=== PATIENT | female | born 1980 | race Caucasian/White ===

== ENCOUNTER → 2017-09-14 11:26 | Outpatient (CLI) | payer OTHER, SELFPAY ==
[2017-09-14 12:44] LABS: Absolute Lymphocyte Count 1.99 X10^3/ul (0.83-4.51); Absolute Neutrophil Count 2.4 X10^3/uL (2.0-7.7); Basophil# 0.05 X10^3/uL; Eosinophil# 0.22 X10^3/uL; Eosinophils% 4.4 % (0-5); Hematocrit 29.5 % (37-47); Hemoglobin 9.3 g/dl (12.0-15.0); Lymphocyte # 1.99 X10^3/ul (4.0); Mean Corp Hgb Conc 31.5 g/gl (32-36); Mean Corpuscular Hgb 30.3 pg (27.0-32.0); Mean Corpuscular Volume 96.1 fL (81-99); Mean Platelet Vol. 9.4 fl (6.2-12.0); Monocyte# 0.33 X10^3/uL; Monocyte% 6.6 % (0-10); Neutrophil # 2.37 X10^3/uL (2.7-7.7); Neutrophil % 47.8 % (47-70); Platelet Count 293 K/mm3 (150-450); RBC Distribution Width CV 13.9 % (11.6-14.6); RBC Distribution Width SD 46.7 fl (35.1-43.9); Red Blood Count 3.07 M/mm3 (4.2-5.4)
[2017-09-14 12:51] LABS: POSITIVE COUNT NO; POSITIVE DIFFERENTIAL NO; POSITIVE MORPHOLOGY NO
== END ==
PROVIDERS: Family Provider Family Medicine; PCP Internal Medicine; Visit Provider Nurse Practitioner Women's Health
DX: N92.0 Excessive and frequent menstruation with regular cycle (principal)
CPT/HCPCS: 36415; 85025

== ENCOUNTER → 2017-09-14 18:14 | Outpatient (CLI) | payer OTHER, SELFPAY ==
--- NOTE | 2017-09-14 10:40 | EMB_PTH ---
PATIENT: RAMEZ PAUL LOC: [facility] U#:[id number] AGE/SX: 44/F ROOM: RE09/14/[address]: ZAFAR Donaldson : 1980 BED: DIS: SPEC #: [id number] RECD: 09/14/17 18:14 STATUS: BETH SUKI #: [id number] GERMANIA: 09/14/17 10:[address]: Laine Coronado NP DEPT: SURGICAL PATHOLOGY RECD BY: Preethi Tamayo ENTERED: 09/15/17 09:39 SP TYPE: ENDOM BX/C DAVE DR: Dr. Timoteo Shelley MD Tissues: Endometrium, NOS Procedures: Surgery Specimen Level IV HEADER OPERATION: Endometrial biopsy PRE-OP DIAGNOSIS: AUB TISSUE SUBMITTED: Endometrial lining MICROSCOPIC DIAGNOSIS Endometrial biopsy: Proliferative endometrium with glandular and stromal breakdown, blood and mucous. SJ:tiago 09/18/17 MICROSCOPIC DESCRIPTION Slides are reviewed. GROSS DESCRIPTION Received is one container labeled with the patient's name and not further designated. The specimen consists of multiple fragments of hemorrhagic soft tissue that in aggregate measure 3 x 2.5 x 0.3 cm. The specimen is totally submitted in one cassette. / SJ:tiago 09/15/17 TC:5 CPT: 45203
== END ==
PROVIDERS: Family Provider Family Medicine; PCP Family Medicine; Visit Provider Nurse Practitioner Women's Health
DX: N93.9 Abnormal uterine and vaginal bleeding, unspecified (principal)
CPT/HCPCS: 88305

== ENCOUNTER → 2017-09-22 13:03 | Outpatient (CLI) | payer OTHER, SELFPAY ==
--- NOTE | 2017-09-22 13:04 | US_ITS ---
STUDY: ULTRASOUND OF THE FEMALE PELVIS REASON FOR EXAM: Female, 37 years old. Abnormal uterine bleeding LMP: September 12, 2017 TECHNIQUE: Transverse and longitudinal imaging of the pelvis was obtained transvaginally using real-time ultrasound. COMPARISON: None. FINDINGS: The uterus is retroflexed and is in a midline position. The uterus measures 8.8 x 5.6 x 5.5 cm. Normal uterine cervix. The endometrium measures 4.8 mm in thickness, and is hyperechoic. There is no demonstrated endometrial mass. There is no demonstrated myometrial mass. I.U.D. - The patient does not have an I.U.D. The right ovary is visualized. The right ovary measures 3.3 x 2.2 x 2.4 cm. There is an anechoic mass in the right ovary measuring 1.9 x 1.8 x 2.0 cm. There is no visualized right adnexal mass or complex lesion. There is normal arterial and normal venous vascularity. The left ovary is visualized. The left ovary measures 2.5 x 1.8 x 1.7 cm. There is no left ovarian cyst or ovarian mass. There is no visualized left adnexal mass or complex lesion. There is normal arterial and normal venous vascularity. There is minimal fluid in the cul-de-sac. No significant abnormalities are seen on limited visualization of the urinary bladder. US/Transvaginal Non- IMPRESSION: No abnormalities are seen in the uterus or endometrium. The uterus is retroflexed. There is a small cyst or dominant follicle in the right ovary measuring 2 cm. There is minimal fluid in the pelvis. Electronically Signed: Angie Katz MD at 23:05 EST Tel Direct: [phone], Service support ,
--- NOTE | 2017-09-22 13:04 | US_ITS ---
STUDY: ULTRASOUND OF THE FEMALE PELVIS REASON FOR EXAM: Female, 37 years old. Abnormal uterine bleeding LMP: September 12, 2017 TECHNIQUE: Transverse and longitudinal imaging of the pelvis was obtained transvaginally using real-time ultrasound. COMPARISON: None. FINDINGS: The uterus is retroflexed and is in a midline position. The uterus measures 8.8 x 5.6 x 5.5 cm. Normal uterine cervix. The endometrium measures 4.8 mm in thickness, and is hyperechoic. There is no demonstrated endometrial mass. There is no demonstrated myometrial mass. I.U.D. - The patient does not have an I.U.D. The right ovary is visualized. The right ovary measures 3.3 x 2.2 x 2.4 cm. There is an anechoic mass in the right ovary measuring 1.9 x 1.8 x 2.0 cm. There is no visualized right adnexal mass or complex lesion. There is normal arterial and normal venous vascularity. The left ovary is visualized. The left ovary measures 2.5 x 1.8 x 1.7 cm. There is no left ovarian cyst or ovarian mass. There is no visualized left adnexal mass or complex lesion. There is normal arterial and normal venous vascularity. There is minimal fluid in the cul-de-sac. No significant abnormalities are seen on limited visualization of the urinary bladder. US/Pelvic (Non ) IMPRESSION: No abnormalities are seen in the uterus or endometrium. The uterus is retroflexed. There is a small cyst or dominant follicle in the right ovary measuring 2 cm. There is minimal fluid in the pelvis. Electronically Signed: Angie Katz MD at 23:05 EST Tel Direct: [phone], Service support ,
== END ==
PROVIDERS: Family Provider Family Medicine; PCP Internal Medicine; Visit Provider Nurse Practitioner Women's Health
DX: N92.0 Excessive and frequent menstruation with regular cycle (principal)
CPT/HCPCS: 76830; 76856; 93976

== ENCOUNTER → 2017-10-09 12:06 | Outpatient (CLI) | payer OTHER, SELFPAY ==
[2017-10-09 12:37] LABS: Absolute Lymphocyte Count 2.18 X10^3/ul (0.83-4.51); Absolute Neutrophil Count 3.1 X10^3/uL (2.0-7.7); Basophil# 0.05 X10^3/uL; Basophil% 0.8 % (0-1); Eosinophil# 0.29 X10^3/uL; Eosinophils% 4.9 % (0-5); Hematocrit 33.6 % (37-47); Hemoglobin 10.8 g/dl (12.0-15.0); Lymphocyte # 2.18 X10^3/ul (4.0); Lymphocyte % 36.6 % (19-41); Mean Corp Hgb Conc 32.1 g/gl (32-36); Mean Corpuscular Hgb 30.8 pg (27.0-32.0); Mean Corpuscular Volume 95.7 fL (81-99); Mean Platelet Vol. 9.3 fl (6.2-12.0); Monocyte# 0.35 X10^3/uL; Monocyte% 5.9 % (0-10); Neutrophil # 3.08 X10^3/uL (2.7-7.7); Neutrophil % 51.6 % (47-70); Platelet Count 342 K/mm3 (150-450); RBC Distribution Width CV 13.6 % (11.6-14.6); RBC Distribution Width SD 45.9 fl (35.1-43.9); Red Blood Count 3.51 M/mm3 (4.2-5.4)
[2017-10-09 12:38] LABS: POSITIVE COUNT NO; POSITIVE DIFFERENTIAL NO; POSITIVE MORPHOLOGY NO
== END ==
PROVIDERS: Family Provider Internal Medicine; PCP Internal Medicine; Visit Provider Nurse Practitioner Women's Health
DX: N92.0 Excessive and frequent menstruation with regular cycle (principal)
CPT/HCPCS: 36415; 85025

== ENCOUNTER → 2017-10-25 14:17 | Outpatient (CLI) | payer OTHER, SELFPAY ==
[2017-10-25 14:48] LABS: Absolute Lymphocyte Count 2.22 X10^3/ul (0.83-4.51); Absolute Neutrophil Count 3.4 X10^3/uL (2.0-7.7); Basophil# 0.04 X10^3/uL; Basophil% 0.6 % (0-1); Eosinophil# 0.21 X10^3/uL; Eosinophils% 3.3 % (0-5); Hematocrit 35.3 % (37-47); Hemoglobin 11.3 g/dl (12.0-15.0); Immature Platelet Fraction 1.4 % (1.0-7.9); Lymphocyte # 2.22 X10^3/ul (4.0); Lymphocyte % 35.2 % (19-41); Mean Corpuscular Hgb 30.1 pg (27.0-32.0); Mean Corpuscular Volume 93.9 fL (81-99); Mean Platelet Vol. 8.8 fl (6.2-12.0); Monocyte# 0.42 X10^3/uL; Monocyte% 6.7 % (0-10); Neutrophil # 3.41 X10^3/uL (2.7-7.7); Platelet Count 269 K/mm3 (150-450); RBC Distribution Width CV 13.8 % (11.6-14.6); RBC Distribution Width SD 47.3 fl (35.1-43.9); RET-HE 27.9 pg (30-35); Red Blood Count 3.76 M/mm3 (4.2-5.4); Reticulocyte Count 1.36 % (0.5-1.5); White Blood Count 6.3 K/mm3 (4.4-11.0)
[2017-10-25 14:49] LABS: POSITIVE COUNT NO; POSITIVE DIFFERENTIAL NO; POSITIVE MORPHOLOGY NO
[2017-10-25 14:54] LABS: Erythrocyte Sedimentation Rate 19 mm/hr (0-20)
[2017-10-25 15:19] LABS: Hemoglobin A1c 4.7 % (4.2-6.3)
[2017-10-25 15:20] LABS: Vitamin B12 525 pg/mL (211-911)
[2017-10-25 15:50] LABS: AST(SGOT) 14 U/L (15-37); Alanine Aminotransfer ALT/SGPT 17 U/L (13-56); Albumin, Serum 3.9 g/dL (3.2-5.0); Alkaline Phosphatase 52 U/L (45-117); Anion Gap 7 (5-15); BUN 13 mg/dL (7-18); BUN/Creat Ratio 13.3 RATIO (10-20); CRP < 2.90 mg/L (0.0-3.0); Calcium,Total 9.2 mg/dL (8.5-10.1); Chloride 106 mmol/L (98-107); Creatinine, Serum 0.98 mg/dL (0.55-1.02); EST Glomerular Filtration Rate 69 mL/min (>60); Est Glom Filt Rate - Afr Amer 83 mL/min (>60); Ferritin 5 ng/mL (8-252); Globulin 3.8 g/dL (2.2-4.2); Glucose 73 mg/dL (74-106); Iron 31 ug/dL (50-170); Iron Binding Capacity,Total 418 ug/dL (250-450); Potassium 3.9 mmol/L (3.5-5.1); Protein, Total 7.7 g/dL (6.4-8.2); Sodium Level 141 mmol/L (136-145); Thyroid Stim Hormone (TSH) 2.26 uIU/mL (0.358-3.74)
[2017-10-27 08:54] LABS: ANTINUCLEAR ANTIBODIES DIRECT Positive (Negative)
== END ==
PROVIDERS: Family Provider Internal Medicine; PCP Internal Medicine
DX: D50.9 Iron deficiency anemia, unspecified (principal); M79.1 Myalgia; L65.9 Nonscarring hair loss, unspecified; L92.0 Granuloma annulare; R53.83 Other fatigue
CPT/HCPCS: 36415; 80053; 82306; 82607; 82728; 82746; 83036; 83540; 83550; 84443; 85025; 85045; 85652; 86038; 86140

== ENCOUNTER 2017-11-03 12:30 | Outpatient (RCR) | payer OTHER, SELFPAY | END 2017-11-13 23:59 | LOC: NS 12:30 | PROVIDERS: Family Provider Internal Medicine; PCP Internal Medicine; Visit Provider Internal Medicine | DX: E66.9 Obesity, unspecified (principal); Z68.41 Body mass index [BMI] 40.0-44.9, adult; Z71.3 Dietary counseling and surveillance | CPT/HCPCS: 97802; 97803 ==

== ENCOUNTER 2017-11-17 11:28 | Outpatient (RCR) | payer OTHER, SELFPAY | END 2017-12-14 23:59 | LOC: NS 11:28 | PROVIDERS: Family Provider Internal Medicine; PCP Internal Medicine; Visit Provider Internal Medicine | DX: E66.9 Obesity, unspecified (principal); Z68.41 Body mass index [BMI] 40.0-44.9, adult; Z71.3 Dietary counseling and surveillance | CPT/HCPCS: 97803 ==

== ENCOUNTER → 2017-12-07 12:38 | Outpatient (CLI) | payer OTHER, SELFPAY ==
[2017-12-11 09:16] LABS: ANTINUCLEAR ANTIBODIES DIRECT Positive (Negative); Anti-Mitochondrial AB <20.0 Units (0.0-20.0); Anti-Thyroglobulin AB < 1.0 IU/mL (0.0-0.9); Anti-dsDNA Ab 1 IU/mL (0-9); Thyroglobulin, Serum Qt. 11.8 ng/mL (1.5-38.5); Thyroid Peroxidase AB 46 IU/mL (0-34)
== END ==
PROVIDERS: Family Provider Internal Medicine; PCP Internal Medicine; Visit Provider Internal Medicine Rheumatology
DX: R76.8 Other specified abnormal immunological findings in serum (principal)
CPT/HCPCS: 36415; 83516; 84432; 86038; 86225; 86376; 86800

== ENCOUNTER → 2018-01-25 10:28 | Outpatient (CLI) | payer OTHER, SELFPAY ==
[2018-01-25 11:38] LABS: Absolute Lymphocyte Count 1.77 X10^3/ul (0.83-4.51); Absolute Neutrophil Count 2.6 X10^3/uL (2.0-7.7); Basophil# 0.03 X10^3/uL; Basophil% 0.6 % (0-1); Eosinophil# 0.17 X10^3/uL; Eosinophils% 3.5 % (0-5); Hematocrit 34.8 % (37-47); Hemoglobin 11.2 g/dl (12.0-15.0); Lymphocyte # 1.77 X10^3/ul (4.0); Lymphocyte % 36.3 % (19-41); Mean Corp Hgb Conc 32.2 g/gl (32-36); Mean Corpuscular Hgb 29.5 pg (27.0-32.0); Mean Corpuscular Volume 91.6 fL (81-99); Mean Platelet Vol. 9.5 fl (6.2-12.0); Monocyte# 0.28 X10^3/uL; Monocyte% 5.7 % (0-10); Neutrophil # 2.62 X10^3/uL (2.7-7.7); Neutrophil % 53.7 % (47-70); POSITIVE COUNT NO; POSITIVE DIFFERENTIAL NO; POSITIVE MORPHOLOGY NO; Platelet Count 280 K/mm3 (150-450); RBC Distribution Width CV 14.2 % (11.6-14.6); RBC Distribution Width SD 46.5 fl (35.1-43.9); White Blood Count 4.9 K/mm3 (4.4-11.0)
[2018-01-26 09:01] LABS: Vitamin D,25 Hydroxy 31.3 ng/mL (29.95-100.01)
== END ==
PROVIDERS: Family Provider Internal Medicine; PCP Internal Medicine; Visit Provider Obstetrics & Gynecology
DX: N93.9 Abnormal uterine and vaginal bleeding, unspecified (principal)
CPT/HCPCS: 36415; 82306; 85025

== ENCOUNTER → 2018-04-12 09:29 | Outpatient (CLI) | payer OTHER, SELFPAY ==
--- NOTE | 2018-04-12 09:30 | US_ITS ---
STUDY: ABDOMINAL ULTRASOUND - RIGHT UPPER QUADRANT REASON FOR VISIT: Female, 37 years old. Right upper quadrant pain with nausea. TECHNIQUE: Ultrasound evaluation of the right upper quadrant was performed with real-time and static ruth-scale imaging. TECHNICAL QUALITY: Limited. Examination limited due to obesity. COMPARISON: None. FINDINGS: Liver: The liver measures 17.2 cm. There is normal echogenicity of the liver. The bile ducts are within normal limits. There is hepatic color flow. The direction of portal flow is hepatopetal. There is a 1.7 cm x 1.5 cm x 2.2 cm echogenic nodule in the posterior aspect of the right lobe of the liver adjacent to the right hemidiaphragm. This may represent a small hemangioma. Gallbladder: Normal distended gallbladder. The gallbladder wall measures 2.1 mm. There is a negative sonographic Otto's sign. There is no pericholecystic fluid. There are no gallstones. Common Bile Duct (C.B.D.): The common bile duct measures 3.1 mm. Pancreas: [place] the pancreas, there is a 1 cm x 1.3 cm x 0.6 cm well-defined hypoechoic nodular density. Correlation with CT scan of the pancreas is recommended for further evaluation. There is normal echogenicity of the pancreas. There is no demonstrated pancreatic mass or cyst. Right Kidney: Normal size of the right kidney. The right kidney measures 10.9 cm x 5.9 cm x 5.4 cm. Normal renal cortex. The right cortex measures 1.6 cm. There is no demonstrated renal mass or cyst. There is no right hydronephrosis. US/Gallbladder IMPRESSION: 1.7 cm x 1.5 cm x 2.2 cm echogenic nodule in the posterior superior aspect of the right lobe of the liver as described. This most likely represents a small hemangioma. 1 cm x 1.3 cm x 0.6 cm hypoechoic well-defined nodule in the head of the pancreas as described. Correlation with a CT scan is recommended. Electronically Signed: Sukhdeep Manzano MD at 10:42 EDT Tel [phone], Service support ,
--- NOTE | 2018-04-12 10:08 | NM_ITS ---
CLINICAL: 37-year-old female with reported history of abdominal pain and nausea. RADIONUCLIDE HEPATOBILIARY SCINTIGRAPHY COMPARISON: Abdominal ultrasound report 04/12/2018 FINDINGS: Following the intravenous administration of 5.8 mCi of 99m Tc Mebrofenin, hepatobiliary images reveal:. 1. Relatively prompt and homogeneous radiopharmaceutical concentration is noted by a normal sized liver. No parenchymal defects are identified. 2. Gallbladder activity is identified at 12 minutes post radiopharmaceutical administration. 3. Small intestinal tract is not visualized during 60 minutes of pre-fatty meal sequential image acquisition. Small bowel is observed following meal completion. 4. Washout of the radiopharmaceutical by the hepatic parenchyma appears qualitatively normal. The patient was administered a fatty meal (8 ounces Boost). The post fatty meal ingestion gallbladder ejection fraction calculated at 60 minutes was noted to be 18.0 % (normal greater than 30%). NM/Hepatobilliary Img w/Pharm Int IMPRESSION: 1. ABNORMAL 99m Tc Mebrofenin hepatobiliary imaging examination with fatty meal ingestion. A. A gallbladder ejection fraction calculated to be less than 30% following the administration of an ingested fatty meal is consistent with the presence of functional hepatobiliary disease (gallbladder and/or sphincter of Oddi dyskinesia) and/or organic hepatobiliary disease (chronic acalculous cholecystitis and/or cystic duct syndrome) in patients with intermediate to high pretest probabilities of hepatobiliary illness. (Brad and Joey, J Nucl Med 43: 1603, 2002). Electronically Signed: Abad Sinha DO at 23:45 EDT Tel , Service support ,
== END ==
PROVIDERS: Family Provider Registered Nurse; PCP Registered Nurse; Referring Provider Physician Assistant; Visit Provider Physician Assistant
DX: R10.13 Epigastric pain (principal); R11.0 Nausea
CPT/HCPCS: 76705; 78227; A9537

== ENCOUNTER → 2018-04-20 11:41 | Outpatient (CLI) | payer OTHER, SELFPAY ==
--- NOTE | 2018-04-20 15:43 | CT_ITS ---
STUDY: CT ABDOMEN AND PELVIS WITH CONTRAST REASON FOR EXAM: Female, 37 years old. Pancreatic mass. Poorly functioning gallbladder. RADIATION DOSAGE (If Supplied By Facility): CTDIvol = ( 18.73 ) mGy, DLP = ( 1398.38 ) mGycm TECHNIQUE: Transaxial images were obtained from the dome of the diaphragm to the symphysis pubis with oral contrast. 100ML ml of Isovue 300 contrast was administered. Sagittal and coronal images were reconstructed. Individualized dose optimization techniques were used for this CT. COMPARISON: Ultrasound abdomen: 04/12/2018 FINDINGS: The visualized lung bases are unremarkable. The visualized portions of the heart are within normal limits. Medially under the diaphragm superiorly a 1.6 x 1.4 cm low-density lesion in the right hepatic lobe demonstrated posteriorly, which is echogenic on the recent ultrasound, consistent with an hemangioma. Mild hepatomegaly. The gallbladder is partially contracted. Normal spleen. Normal pancreas. No pancreatic mass is evident. A 2.4 cm accessory spleen is seen along the posterior surface of the pancreatic tail adjacent to the splenic hilum. Normal bilateral adrenal glands. There is an extrarenal mildly dilated pelvis R>L. No hydronephrosis. Normal left kidney. Normal visualized stomach. Normal small intestine. Oral contrast has not reached into the colon. Moderate amount of retained fecal debris is seen in the colon including the rectosigmoid. The appendix is visualized and appears normal. Normal abdominal aorta. Normal inferior vena cava. There are multiple small subcentimeter reactive periaortic/retroperitoneal lymph nodes present. There is up to 5.2 mm mild wall thickening of the partially decompressed urinary bladder. There is a retroverted uterus. There is a very small umbilical hernia containing fat. Small reactive bilateral inguinal lymph nodes. There are mild degenerative endplate changes of the visualized thoracic spine. CT/Abdomen/Pelvis WITH Contrast IMPRESSION: 1. A 1.6 cm low-density right hepatic lesion is suggestive of an hemangioma. 2. No pancreatic mass is evident. A 2.4 cm accessory splenule is seen along the posterior margin of the pancreatic tail. 3. Moderately increased colonic stool volume. 4. No acute abnormality noted in the abdomen/pelvis. Electronically Signed: Ruma Kwon MD at 8:07 EDT Tel , Service support ,
== END ==
PROVIDERS: Family Provider Registered Nurse; PCP Registered Nurse; Referring Provider Physician Assistant; Visit Provider Physician Assistant
DX: K86.9 Disease of pancreas, unspecified (principal)
CPT/HCPCS: 74177; Q9967

== ENCOUNTER → 2018-04-23 10:31 | Outpatient (CLI) | payer OTHER, SELFPAY | PROVIDERS: Family Provider Registered Nurse; PCP Registered Nurse | DX: E06.3 Autoimmune thyroiditis (principal); R53.82 Chronic fatigue, unspecified | CPT/HCPCS: 36415; 84443 ==

== ENCOUNTER 2018-05-02 05:55 | Day surgery (SDC) | payer OTHER, SELFPAY ==
--- NOTE | 2018-05-02 | IMM_PTH ---
PATIENT: RAMEZ PAUL LOC: [facility] U#:[id number] AGE/SX: 37/F ROOM: RE05/02/[address]: Dr. Lucio Cerna MD : 1980 BED: DIS: 05/02/2018 SPEC #: [id number] RECD: 05/03/18 09:32 STATUS: BETH SUKI #: [id number] GERMANIA: 05/02/18 00:[address]: Lucio Cerna DEPT: IMMUNOHISTOCHEMISTRY RECD BY: Cleopatra Guevara ENTERED: 05/03/18 09:33 SP TYPE: IMMUNO OTHR DR: Bernice Menezes, ZAFAR Tissues: Stomach, NOS Procedures: H Pylori (initial) PHYSICIAN & INSTITUTION [place] [id number] SPECIMEN INFORMATION: Tissue Source: Gastric antrum biopsy Clinical Info: Chronic gastric ulcer, nausea, upper abdominal pain Specimen Number: [id number] CPT code: 82678 METHODOLOGY: Deparaffinized sections of prefer/formalin-fixed tissue or PAP/DQ stained slides are incubated with monoclonal/polyclonal antibodies/oligonucleotide probes. Localization is made via biotin free immunoperoxidase method. Appropriate controls are performed and reacted as expected. Results on target cell population are indicated in the following table: RESULTS: ANTIBODY / CLONE RESULT H Pylori (polyclonal) negative These tests were developed and their performance characteristics determined by [facility]. They may not have been cleared or approved by the U.S. Food and Drug Administration. The FDA has determined that such clearance or approval is not necessary. INTERPRETATION: Gastric antrum, biopsy: Negative for Helicobacter pylori organisms. LUZ ELENA:tiago 05/03/18
[2018-05-02 06:24] VITALS: BP 137/77; PULSE 88; RESP 16; TEMP 35.7; O2SAT 95; BMI 45.3
--- NOTE | 2018-05-02 07:00 | GASB_PTH ---
PATIENT: RAMEZ PAUL LOC: EN U#:[id number] AGE/SX: 37/F ROOM: RE05/02/[address]: Dr. Lucio Cerna MD : 1980 BED: DIS: 05/02/2018 SPEC #: [id number] RECD: 05/02/18 10:00 STATUS: BETH SUKI #: [id number] GERMANIA: 05/02/18 07:[address]: Lucio Cerna DEPT: SURGICAL PATHOLOGY RECD BY: Abad Jackman ENTERED: 05/02/18 10:12 SP TYPE: Gastric Bx OTHR DR: Bernice Menezes, COMMERCIAL HOUSEKEEPER-C Tissues: Gastric mucous membrane Procedures: Surgery Specimen Level IV HEADER OPERATION: EGD ([facility] [place]) PRE-OP DIAGNOSIS: Chronic gastric ulcer, nausea, upper abdominal pain TISSUE SUBMITTED: Biopsy gastric antrum H. pylori and path MICROSCOPIC DIAGNOSIS Gastric antrum, biopsy: Mild gastritis. Fragments of food particles. See microscopic description and comment. SJ:tiago 05/03/18 COMMENT The results of immunohistochemistry for Helicobacter pylori will be reported separately ([id number]). MICROSCOPIC DESCRIPTION Slides are reviewed. The specimen shows fragments of gastric mucosa with chronic inflammatory cell infiltrates in the lamina propria consisting of lymphocytes and plasma cells, consistent with mild chronic gastritis. GROSS DESCRIPTION Received in fixative is one container labeled with the patient's name and designated biopsy gastric antrum. The specimen consists of multiple irregular fragments of light jama soft tissue that in aggregate measure 1 x 0.2 x 0.1 cm. The specimen is totally submitted in one cassette. / LUZ ELENA:tiago 05/02/18 TC:5 CPT: 83359
[2018-05-02 07:14] LABS: Pregnancy, Serum, hCG Quali. NEGATIVE Negative (0-9 Nonpreg)
[2018-05-02 07:30] VITALS: BP 127/78; BP 137/77; PULSE 79; RESP 16; TEMP 36.6; O2SAT 92
--- NOTE | 2018-05-02 07:32 | OP.ENDO_ITS ---
Patient Name: Alma Aden Procedure Date: 05/02/2018 6:07 AM Date of : 1980 Age: 37 Procedure: Upper GI endoscopy Indications: Follow-up of chronic gastric ulcer Providers: Lucio Cerna MD Medicines: See the Anesthesia note for documentation of the administered medications Patient Profile: She is status post EGD for ulcer treatment one year ago. Complications: No immediate complications. Procedure: Pre-Anesthesia Assessment: - Prior to the procedure, a History and Physical was performed, and patient medications and allergies were reviewed. The patient's tolerance of previous anesthesia was also reviewed. The risks and benefits of the procedure and the sedation options and risks were discussed with the patient. All questions were answered, and informed consent was obtained. Prior Anticoagulants: The patient has taken no previous anticoagulant or antiplatelet agents. ASA Grade Assessment: II - A patient with mild systemic disease. After reviewing the risks and benefits, the patient was deemed in satisfactory condition to undergo the procedure. After obtaining informed consent, the endoscope was passed under direct vision. Throughout the procedure, the patient's blood pressure, pulse, and oxygen saturations were monitored continuously. The gastroscope was introduced through the mouth, and advanced to the duodenal bulb. The upper GI endoscopy was accomplished without difficulty. The patient tolerated the procedure well. Scope In: 7:22:24 AM Scope Out: 7:25:25 AM Total Procedure Duration Time 0 hours 3 minutes 1 second Findings: The examined esophagus was normal. Localized mild inflammation characterized by erythema was found in the prepyloric region of the stomach. Biopsies were taken with a cold forceps for Helicobacter pylori testing. No gross lesions were noted in the duodenal bulb. A large amount of food (residue) was found in the entire examined stomach. Will need a gastric empying study. Impression: - Normal esophagus. - Gastritis. Biopsied. - No gross lesions in the duodenal bulb. - A large amount of food (residue) in the stomach. Recommendation: - Await pathology results. - Repeat upper endoscopy in 1 year for surveillance. - Return to my office in 1 week. - Continue present medications. Procedure Code(s): --- Professional --- 71599, Esophagogastroduodenoscopy, flexible, transoral; with biopsy, single or multiple Diagnosis Code(s): --- Professional --- K29.70, Gastritis, unspecified, without bleeding K25.7, Chronic gastric ulcer without hemorrhage or perforation CPT copyright 2017 [employer]. All rights reserved. The codes documented in this report are preliminary and upon special duty nurse review may be revised to meet current compliance requirements. MD Lucio Aguilar MD 05/02/2018 7:32:26 AM This report has been signed electronically. Number of Addenda: 0 Note Initiated On: 05/02/2018 6:07 AM
[2018-05-02 07:35] VITALS: BP 125/80; BP 137/77; PULSE 74; RESP 16; O2SAT 94
[2018-05-02 07:40] VITALS: BP 114/70; BP 137/77; PULSE 74; RESP 16; O2SAT 100
[2018-05-02 07:43] VITALS: BP 118/76; BP 137/77; PULSE 74; RESP 16; TEMP 36.9; O2SAT 99
[2018-05-02 08:09] VITALS: BP 137/77
== END 2018-05-02 08:09 | disposition home or self-care (01) ==
LOC: EN 05:55 → AC 05:56
PROVIDERS: Family Provider Registered Nurse; PCP Registered Nurse; Referring Provider Surgery; Visit Provider Surgery
PROC: 0DJ08ZZ Inspection of Upper Intestinal Tract, Via Natural or Artificial Opening Endoscopic (ICD-10-PCS; CPT 43235; principal; 2018-05-02 06:55)
DX: K29.70 Gastritis, unspecified, without bleeding (principal); K25.7 Chronic gastric ulcer without hemorrhage or perforation; K44.9 Diaphragmatic hernia without obstruction or gangrene; K21.9 Gastro-esophageal reflux disease without esophagitis; G25.81 Restless legs syndrome; G47.30 Sleep apnea, unspecified; Z91.19 Patient's noncompliance with other medical treatment and regimen; K58.9 Irritable bowel syndrome, unspecified; F41.9 Anxiety disorder, unspecified; F32.9 Major depressive disorder, single episode, unspecified; E06.9 Thyroiditis, unspecified; N93.9 Abnormal uterine and vaginal bleeding, unspecified; D64.9 Anemia, unspecified; G43.909 Migraine, unspecified, not intractable, without status migrainosus; Z79.899 Other long term (current) drug therapy
CPT/HCPCS: 43239; 36415; 84703; 88305; 88342; J7120

== ENCOUNTER 2018-06-21 05:27 | Day surgery (SDC) | payer OTHER, SELFPAY ==
[2018-06-14 13:26] VITALS: BMI 45.1
[2018-06-15 11:59] LABS: Hematocrit 34.3 % (37-47); Hemoglobin 10.7 g/dl (12.0-15.0); Mean Corp Hgb Conc 31.2 g/gl (32-36); Mean Corpuscular Hgb 28.5 pg (27.0-32.0); Mean Corpuscular Volume 91.2 fL (81-99); Mean Platelet Vol. 9.3 fl (6.2-12.0); Platelet Count 334 K/mm3 (150-450); RBC Distribution Width CV 13.7 % (11.6-14.6); RBC Distribution Width SD 45.3 fl (35.1-43.9); Red Blood Count 3.76 M/mm3 (4.2-5.4)
[2018-06-15 12:10] LABS: Scan Indicated on CBC? Y/N NO
[2018-06-15 12:14] LABS: Thyroid Stim Hormone (TSH) 0.74 uIU/mL (0.358-3.74)
[2018-06-15 12:18] LABS: Prothrombin Time (Protime)PT. 12.9 SECONDS (11.7-14.9)
[2018-06-15 12:19] LABS: Partial Thromboplast Time 30.3 Seconds (24.1-36.2)
[2018-06-21] VITALS (10 sets, daily range): BP systolic 118–158; BP diastolic 72–94; PULSE 71–83; RESP 16–20; TEMP 36.2–36.9; O2SAT 89–98; BMI 47.5
--- NOTE | 2018-06-21 | GALL_PTH ---
PATIENT: RAMEZ PAUL LOC: [facility] [place] U#:[id number] AGE/SX: 37/F ROOM: RE06/21/[address]: Dr. Shirley Galeana MD : 1980 BED: DIS: 06/22/2018 SPEC #: [id number] RECD: 06/21/18 14:29 STATUS: BETH SUKI #: [id number] GERMANIA: 06/21/18 00:[address]: Shirley Galeana DEPT: SURGICAL PATHOLOGY RECD BY: Andre Wolfe ENTERED: 06/21/18 14:30 SP TYPE: ESTEPHANIA ACOSTA DR: Bernice Menezes, DOBIE WORKER-C Tissues: A - Gallbladder, NOS B - Uterus, NOS Procedures: Surgery Specimen Level III Surgery Specimen Level V HEADER OPERATION: Laparoscopic cholecystectomy PRE-OP DIAGNOSIS: Biliary dyskinesia TISSUE SUBMITTED: A - Gallbladder, B - Uterus, fallopian tubes MICROSCOPIC DIAGNOSIS A. Gallbladder, cholecystectomy: Cholesterosis and chronic cholecystitis. B. Uterus, hysterectomy: Cervix - focal hyperkeratosis and mild chronic inflammation. Endometrium - proliferative endometrium. Myometrium - Focal superficial adenomyosis. Right and left fallopian tubes - no pathologic change. AM:tiago 06/22/18 MICROSCOPIC DESCRIPTION Slides are reviewed. GROSS DESCRIPTION A - Received is one container labeled with the patient's name and designated gallbladder. The specimen consists of a gallbladder measuring 9 cm in length and up to 3.5 cm in diameter. The external surface is pink-jama, smooth and glistening for the most part. Focally it is granular, hemorrhagic and contains cautery artifact. The gallbladder contains green-yellow and slightly hemorrhagic bile. No stones are identified in the gallbladder and in the container. The mucosa also shows several yellowish streaks consistent with cholesterolosis. The mucosa is bile-stained and without any mass lesions. The gallbladder wall measures up to 0.2 cm in thickness. Optical Engineering Technician sections from the gallbladder and the cystic duct are submitted in one cassette. B - Received in fixative is one container labeled with the patient's name and designated uterus, fallopian tubes. The specimen consists of a hysterectomy specimen consisting of uterus with cervix and detached bilateral fallopian tubes. The uterus with cervix weighs 173 gm and measures 11.5 x 7 x 5 cm. The serosal surface is focally ragged. The ectocervical mucosa is unremarkable. The external os is oval and patulous in contour. The endocervical canal measures 4 cm in length and the endocervical mucosa is jama, glistening and unremarkable. The triangular endometrial cavity measures 5.5 cm in length and up to 4 cm in width. The endometrium is jama, glistening without any mass lesion and measures up to 0.4 cm in thickness. Sections of the uterine wall do not reveal any mass lesion and it measures up to 3 cm in thickness. The detached fallopian tubes are not identified as right or left and measures 3.5 cm in length and 0.6 cm in diameter and 2.5 cm in length and 0.5 cm in diameter. The fimbrial end is identified. Sections reveal unremarkable cut surfaces. Optical Engineering Technician sections are submitted in eight cassettes as follows: 1 - anterior cervix, 2 - posterior cervix, 3 & 4 - anterior uterine wall, 5 & 6 - posterior uterine wall, 7 & 8 - each cassette containing one fallopian tube, entirely submitted. / LUZ ELENA:tiago 06/21/18 TC:3 CPT: 88541, 33707
[2018-06-21 05:49] LABS: Internal QC Validated? YES +Cl - CLEAR BKGD; Pregnancy, Urine Negative Negative
--- NOTE | 2018-06-21 05:49 | EKG12_ITS ---
Test Reason : PRE OP Blood Pressure : / mmHG Vent. Rate : 083 BPM Atrial Rate : 083 BPM P-R Int : 136 ms QRS Dur : 092 ms QT Int : 360 ms P-R-T Axes : 041 012 006 degrees QTc Int : 423 ms Normal sinus rhythm Normal ECG Confirmed by GUILLERMO POTTER ([id number]), assistant film editor NORRIS SYLVESTER ([id number]) on 06/22/2018 3:32:17 PM Referred By: Shirley Galeana Confirmed By:GUILLERMO POTTER
--- NOTE | 2018-06-21 05:53 | PCM.HPOB.BLA ---
- Problem List (1) Abnormal uterine bleeding Status: Chronic Comment: plan TVH BS History and Physical Date of Admission: 06/21/18 Intake Visit Reasons: PRE-OP Chief Complaint: pre op consult Certified Court/Medical Interpreter Required: No Is patient in pain?: No Allergies penicillin G Allergy (Mild, Verified 06/14/18 13:25) Other latex Allergy (Verified 06/14/18 13:25) Rash escitalopram [From Lexapro] Adverse Reaction (Verified 06/14/18 13:25) Other Medications alprazolam 0.25 mg tablet 0.25 mg PO BID PRN 09/14/17 [History Confirmed 06/14/18] duloxetine 60 mg capsule,delayed release 60 mg PO QDAY 09/14/17 [History Confirmed 06/14/18] magnesium oxide 400 mg capsule 400 mg PO QDAY cap 09/14/17 [History Confirmed 06/14/18] vitamin B complex capsule 1 cap PO QDAY 09/14/17 [History Confirmed 06/14/18] cholecalciferol (vitamin D3) 2,000 unit capsule 2,000 unit PO QDAY 10/30/17 [History Confirmed 06/14/18] bupropion HCl XL 150 mg 24 hr tablet, extended release 150 mg PO QAM 04/05/18 [History Confirmed 06/14/18] ferrous fumarate 325 mg (106 mg iron) tablet 325 mg PO BID tab 04/05/18 [History Confirmed 06/14/18] Esomeprazole Mag Trihydrate [Nexium] 40 mg PO DAILY 04/30/18 [History Confirmed 06/14/18] Levothyroxine [Synthroid] 75 mcg PO DAILY 04/30/18 [History Confirmed 06/14/18] esomeprazole magnesium 40 mg capsule,delayed release 40 mg PO DAILY #30 cap 05/07/18 [Rx Confirmed 06/14/18] Is last menstrual period known: Yes Last Menstral Period: 06/09/18 Post menopausal: No Patient : No : No [facility] Medical History Abnormal uterine bleeding (Chronic) Anxiety and depression (Acute) Surgical History lesion removal from lip (Acute) Family History Grandmother Heart disease Arthritis Diabetes Hypertension Thyroid disorder Stomach ulcer Mother Asthma Arthritis Hypertension Aunt Arthritis Heart disease Autoimmune disease Grandfather Cancer lung Father Hypertension Uncle Heart disease Social History Smoking Status: Never smoker alcohol intake: never substance use type: does not use caffeine: Yes frequency: 1-2 times per week seatbelt use: always do you feel safe at home: Yes additional 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 she can't tolerate hormones due to complciations. she is also having her gall bladder out the same day Female Reproductive History Last Menstral Period: 06/09/18 Pregancy History 2 Elective abortions Hx Para 2 Spontaneous abortions Hx # Term Pregnancies Ectopic pregnancies Hx # Pregnancies Multiple births # of living children Past Pregnancies Del. Date Name GA/Weeks Outcome Route Bth Weight Infant Gen Labor Lgth Anesthesia Del Locatn Provider FOB Unknown 2006 Carrie 40 live - full term Unknown 2008 Daryl 40 live - full term ROS Const Constitutional: Denies poor appetite, headache(s), fever(s), increased appetite, weight gain, weight loss or fatigue ENT ENT: Denies dry mouth : Reports as per HPI; denies difficulty urinating, blood in urine, pelvic pain, urinary frequency, urinary incontinence, urinary hesitancy, urinary urgency, vaginal discharge, vaginal dryness, vaginal odor, vaginal itching, other, painful urination or nipple discharge Skin Skin/Breast: Denies hair loss, change in hair, dry skin, breast pain, breast skin changes, breast lump or nipple discharge Exam Const General: cooperative, healthy appearing, comfortable, no acute distress, well developed Nutritional Appearance: average body habitus Orientation: alert HENAK Head: normal to inspection, normocephalic Ears: hearing grossly normal bilaterally, external ears normal Nose: external nose normal, nares normal Face and sinus: normal facial exam Neck Neck: normal visual inspection, trachea midline, no lymphadenopathy Thyroid: thyroid normal Resp Effort & Inspection: normal respiratory effort Musc Other: gross motor intact no deficits, full bilateral strength Skin General: no rashes or lesions noted Neuro Motor: muscle tone normal throughout Assessment & Plan Problems 1. Abnormal uterine bleeding N93.9 plan TVH BS Plan discussed surgical risks including risks of anesthesia, infection, bleeding, injury to bowel, bladder or blood vessels, and patient wishes to proceed with surgery. UPDATE- I have seen the patient and performed any clinically relevant updates to the history and physical exam. Shirley Galeana MD
[2018-06-21] MEDS: Phenazopyridine 95 MG Tablet 190 MG PO (06:02)
--- NOTE | 2018-06-21 06:50 | ECHOCS_ITS ---
Reason For Study: PRE-OP Procedure This was a 2D Doppler, Color Flow transthoracic echocardiogram. Contrast injection was performed. Exam performed portable in patient room. Left Ventricle Normal size and thickness. The estimated ejection fraction is 65 %. Normal diastology for age. No regional wall motion abnormalities noted. Right Ventricle Normal size and thickness. Normal systolic function. Atria Normal left atrium. Normal right atrium. Normal atrial septum. Mitral Valve The mitral valve is structurally normal. No prolapse or stenosis seen. Tricuspid Valve Normal tricuspid valve. Trivial tricuspid valve insufficiency. Right ventricular systolic pressure estimated to be 26 mmHg. Aortic Valve Trisinus/trileaflet aortic valve. Normal aortic valve. Pulmonic Valve Normal pulmonic valve. Great Vessels Normal aortic root. Normal arch. Normal inferior vena cava. Inferior vena cava collapse with sniff. Pericardium/Pleural No pericardial effusion. Medication Performed a rapid injection of agitated mix of 9 cc saline and 1cc air to assess for atrial septal defect. Diluted definity 4ml given slow IV push to enhance endocardial definition. MMode/2D Measurements & Calculations LVIDd: 5.3 cm IVSd: 1.1 cm Ao root diam: 3.5 cm LVIDs: 3.5 cm LVPWd: 1.0 cm RVDd: 3.7 cm FS: 32.7 % LAV(MOD-bp): 40.6 ml EDV(MOD-sp4): 125.4 ml EDV(MOD-sp2): 100.0 ml LAV(MOD-bp) Indexed: 16.4 ml/m2 ESV(MOD-sp4): 43.8 ml EF(MOD-sp2): 43.9 % LAV(MOD-sp2): 53.8 ml EF(MOD-sp4): 65.1 % LAV(MOD-sp4): 30.8 ml SV(MOD-sp4): 81.7 ml SV(MOD-sp2): 43.9 ml LA A4 area: 13.8 cm2 LA dimension(2D): 3.6 cm RA A4 area: 15.1 cm2 Time Measurements MV dec time: 0.23 sec Doppler Measurements & Calculations MV E max gary: 69.3 cm/sec Lat Peak E' Gary: 9.1 cm/sec Med Peak E' Gary: 6.4 cm/sec MV A max gary: 57.2 cm/sec E/E' lat: 7.6 E/E' med: 10.9 MV E/A: 1.2 Ao V2 max: 140.0 cm/sec LV V1 max: 99.8 cm/sec TR max gary: 223.2 cm/sec Ao max P.8 mmHg LV V1 max P.0 mmHg TR max P.0 mmHg Interpretation Summary The estimated ejection fraction is 65 %. Normal diastology for age. Trivial tricuspid valve insufficiency. Right ventricular systolic pressure estimated to be 26 mmHg. The study was technically difficult. Contrast injection was performed. There is no comparison study available. Ordering Physician: Maurisio Low Referring Physician: KIM SALMON Performed By: Alysia Madera, MILLIE, RVT
--- NOTE | 2018-06-21 08:29 | PCM.OPRPT ---
Problem List (1) Biliary dyskinesia Status: Acute Report of Operation Date of Procedure: 06/21/18 Pre-Operative Diagnosis: Biliary dyskinesia Post-Operative Diagnosis: Same Surgery/Procedure Performed:: Laparoscopic cholecystectomy Type of Anesthesia:: General Anesthesiologist: Vickey Faria Estimated Blood Loss (mL): < 25 CC Description of Procedure: Patient was brought in the operating room and placed in the supine position. Under excellent general anesthetic legs were placed up in stirrups the perineum and abdominal area was sterilely prepped and draped in usual fashion local was injected infraumbilically dissection was carried down to the fascia the fascia grasped with a Beverley varies needle was placed inside the abdomen and the abdomen was insufflated to 15 torr. A 10/12 trocar was placed without difficulty. The patient was placed in the head up and rotated to the left position. A subxiphoid #5 trocar was placed, inferior to this another #5 trocar was placed, laterally a #5 trocar was placed. All of these under direct visualization without injury to underlying structures. Fundus of the gallbladder was grasped retracted in a cephalad direction. Infundibulum was grasped retracted laterally. I dissected out the cystic duct I placed hemoclips proximally distally and ligated the duct. Identified the cystic artery placed hemoclips proximally distally and ligated the artery. I deliver the gallbladder from the gallbladder bed with the use of electrocautery. I had excellent hemostasis. I did not have any spillage of bile or stones. I placed the specimen in a specimen bag and delivered it through the umbilical area without difficulty. I reinspected the right upper quadrant good hemostasis was noted. I removed the trochars under direct visualization good hemostasis was noted. I closed the fascia the umbilical port with [id number] stitch of 0 Vicryl. Skin incisions were closed with septicum stitches of 4-0 Monocryl. Steri-Strips are applied. Sterile dressings were applied. The patient tolerated the procedure well. - Admit VTE Documentation VTE Present on Admission: No VTE Mechan Device Prophylaxis: SCD's VTE Pharm Prophylaxis ordered?: No Reason prophylaxis not ordered:: Treatment Not Indicated
--- NOTE | 2018-06-21 09:47 | DCINST_ITS ---
Discharge Diet: Light diet - advance as tolerated Discharge Activity: May Not Drive - for 2-3 days or while taking narcotic pain medications., - - Do not drive, work heavy equipment or sign legal documents for 24 hours. May shower in (days): 1 - with the bandage in place. Additional Activity Instructions:: Pain medication may cause nausea. You should typically eat light foods as you take your pain medications. Pain medication may also cause constipation. If this is a problem for you, please discuss with your doctor. Call your doctor if your incision/area has: Continuous Slow Oozing, Sudden Increased Bleeding, Increased Pain/ Swelling, Increased Redness, Foul Smelling Discharge Call your doctor if you observe: Fever of 101 or Higher Suture Line Care: Avoid Pulling/Pushing, Avoid Pinching/Bending Additional Dressing/Incision Instructions:: Leave operative bandaids on for 2 days. When you remove dressing, leave Steri-Strips on until your follow-up appointment, or until the Steri-Strips fall off on their own. Allergies/Adverse Reactions: Allergies penicillin G Allergy (Mild, Verified 06/15/18 10:22) Other latex Allergy (Verified 06/15/18 10:22) Rash escitalopram [From Lexapro] Adverse Reaction (Verified 06/15/18 10:22) Other HEADACHE Medications to take at Discharge alprazolam 0.25 mg tablet 0.25 mg PO BID PRN 09/14/17 duloxetine 60 mg capsule,delayed release 60 mg PO QDAY 09/14/17 magnesium oxide 400 mg capsule 400 mg PO QDAY cap 09/14/17 vitamin B complex capsule 1 cap PO QDAY 09/14/17 cholecalciferol (vitamin D3) 2,000 unit capsule 2,000 unit PO QDAY 10/30/17 ferrous fumarate 325 mg (106 mg iron) tablet 325 mg PO BID tab 04/05/18 Levothyroxine [Synthroid] 75 mcg PO DAILY 04/30/18 esomeprazole magnesium 40 mg capsule,delayed release 40 mg PO DAILY #30 cap 05/07/18 Oxycodone HCl/Acetaminophen [Percocet 5/325] 1 - 2 tab PO Q4H PRN PRN 5 Days #30 tab 06/21/18 The following prescriptions were given: Oxycodone HCl/Acetaminophen [Percocet 5/325] 1 - 2 tab PO Q4H PRN PRN 5 Days #30 tab PRN Reason: Pain Orders to be completed after discharge: Type & Screen Time Frame: 06/15/18, Location: None Selected 12 Lead EKG [[facility]] Time Frame: 06/21/18, Location: None Selected Partial Thromboplast Time Time Frame: 06/15/18, Location: Laboratory CBC-Complete Blood Cnt No Diff Time Frame: 06/15/18, Location: Laboratory Prothrombin Time w/INR Time Frame: 06/15/18, Location: Laboratory Primary Care Physician: Bernice Menezes NP-C [Primary Care Provider] - Test Results: Test results from this visit will be discussed in further detail at your follow- up appointment, if applicable. Please Follow Up With: Lucio Cerna MD - Please call [phone] to schedule an appointment. When: 7 days after your surgery.
[2018-06-21] MEDS: Bupivacaine Mpf 0.5% 30 ML VIAL (10:00)
[2018-06-21] MEDS: Vasopressin 20 UNITS/ML Vial (10:12)
--- NOTE | 2018-06-21 11:53 | PCM.OPRPT ---
Problem List (1) Abnormal uterine bleeding Status: Chronic Comment: plan TVH BS Report of Operation Date of Procedure: 06/21/18 Pre-Operative Diagnosis: Biliary dyskinesia AUB Post-Operative Diagnosis: Same Surgery/Procedure Performed:: Laparoscopic cholecystectomy total vaginal hysterectomy bilateral salpingectomy real estate office supervisor: elizabeth henning Type of Anesthesia:: General Anesthesiologist: Vickey Faria Specimen's removed: uterus tubes Drains: pereyra Estimated Blood Loss (mL): < 25 CC Fluids Replaced: crystalloid Description of Procedure: Patient was taken to the operating room and was placed under general anesthesia was prepped and draped in normal sterile fashion in the dorsal lithotomy position. Preoperative antibiotics and SCDs and Pereyra catheter was placed inside the bladder. Weighted speculum was placed in the vagina and the anterior and posterior lip of the cervix was grasped with 2 Dustin clamps and circumferentially injected with dilute vasopressin. A circumferential incision was made with a scalpel and the posterior cul-de-sac was entered into sharply and a longneck speculum was placed. The anterior cul-de-sac was also dissected down and entered into sharply and the uterosacral ligaments were clamped cut and suture ligated bilaterally followed by the cardinal ligaments which were Clamped cut and suture ligated bilaterally with 0 Monocryl. The uterus serially descended and progressive bites were taken bilaterally up to the level of the utero-ovarian ligament bilaterally which was clamped transected and double ligated with 0 Monocryl suture and 0 Vicryl free tie. Bilateral fallopian tubes and ovaries were well visualized and noted be within normal limits and the bilateral fallopian tubes were transected across the base with a Fabiana clamp and removed and sutured with 0 Vicryl suture. Excellent hemostasis was noted. Posterior peritoneum was reapproximated with 2-0 Vicryl through the posterior vaginal cuff and bilateral uterosacral ligaments across the posterior cul-de-sac skimming along to provide apical support to the vagina. The vagina was closed with [id number] 0 Vicryl pop offs including the posterior and anterior peritoneum in the reapproximation. Excellent hemostasis was noted. All instruments removed from the vagina clear urine was noted at the end of the procedure and patient was awoken and taken recovery in stable condition. Grafts/Implants Used: none - Complications none
--- NOTE | 2018-06-21 11:56 | DCINST_ITS ---
Discharge Diet: Light diet - advance as tolerated Discharge Activity: May Not Drive - for 2-3 days or while taking narcotic pain medications., - - Do not drive, work heavy equipment or sign legal documents for 24 hours. May shower in (days): 1 - with the bandage in place. May resume sexual activity in: 6-8 weeks Additional Activity Instructions:: Pain medication may cause nausea. You should typically eat light foods as you take your pain medications. Pain medication may also cause constipation. If this is a problem for you, please discuss with your doctor. Call your doctor if your incision/area has: Continuous Slow Oozing, Sudden Increased Bleeding, Increased Pain/ Swelling, Increased Redness, Foul Smelling Discharge Call your doctor if you observe: Fever of 101 or Higher Suture Line Care: Avoid Pulling/Pushing, Avoid Pinching/Bending Additional Dressing/Incision Instructions:: Leave operative bandaids on for 2 days. When you remove dressing, leave Steri-Strips on until your follow-up appointment, or until the Steri-Strips fall off on their own. Allergies/Adverse Reactions: Allergies penicillin G Allergy (Mild, Verified 06/15/18 10:22) Other latex Allergy (Verified 06/15/18 10:22) Rash escitalopram [From Lexapro] Adverse Reaction (Verified 06/15/18 10:22) Other HEADACHE Medications to take at Discharge alprazolam 0.25 mg tablet 0.25 mg PO BID PRN 09/14/17 duloxetine 60 mg capsule,delayed release 60 mg PO QDAY 09/14/17 magnesium oxide 400 mg capsule 400 mg PO QDAY cap 09/14/17 vitamin B complex capsule 1 cap PO QDAY 09/14/17 cholecalciferol (vitamin D3) 2,000 unit capsule 2,000 unit PO QDAY 10/30/17 ferrous fumarate 325 mg (106 mg iron) tablet 325 mg PO BID tab 04/05/18 Levothyroxine [Synthroid] 75 mcg PO DAILY 04/30/18 esomeprazole magnesium 40 mg capsule,delayed release 40 mg PO DAILY #30 cap 05/07/18 Oxycodone HCl/Acetaminophen [Percocet 5/325] 1 - 2 tab PO Q4H PRN PRN 5 Days #30 tab 06/21/18 The following prescriptions were given: Oxycodone HCl/Acetaminophen [Percocet 5/325] 1 - 2 tab PO Q4H PRN PRN 5 Days #30 tab PRN Reason: Pain Orders to be completed after discharge: Type & Screen Time Frame: 06/15/18, Location: None Selected 12 Lead EKG [[facility]] Time Frame: 06/21/18, Location: None Selected Partial Thromboplast Time Time Frame: 06/15/18, Location: Laboratory CBC-Complete Blood Cnt No Diff Time Frame: 06/15/18, Location: Laboratory Prothrombin Time w/INR Time Frame: 06/15/18, Location: Laboratory Primary Care Physician: Bernice Menezes NP-C [Primary Care Provider] - Test Results: Test results from this visit will be discussed in further detail at your follow- up appointment, if applicable. Please Follow Up With: Lucio Cerna MD - Please call [phone] to schedule an appointment. When: 7 days after your surgery.
[2018-06-21] MEDS: Ketorolac 30 MG/ML Syringe IV ×3 (12:22→23:57)
[2018-06-21] MEDS: HYDROmorphone 1 MG/ML Syringe IV ×2 (15:06→20:52)
[2018-06-21] MEDS: Acetaminophen 500 MG Tablet 1000 MG PO (16:16)
[2018-06-21] MEDS: Ferrous Sulfate 325 MG Tablet PO (18:03)
[2018-06-21] MEDS: Lactated Ringers 1,000 ML 125 ML IV (18:03)
[2018-06-21] MEDS: Ondansetron 4 MG/2 ML Vial IV (18:04)
[2018-06-22 03:03] VITALS: BP 154/73; PULSE 81; RESP 18; TEMP 36.9; O2SAT 99
[2018-06-22] MEDS: Ondansetron 4 MG/2 ML Vial IV (03:09)
[2018-06-22] MEDS: oxyCODONE 5 MG Tablet PO ×2 (03:09→09:24)
[2018-06-22] MEDS: Acetaminophen 500 MG Tablet 1000 MG PO (05:10)
[2018-06-22] MEDS: Levothyroxine 75 MCG Tablet PO (05:11)
[2018-06-22] MEDS: Ketorolac 30 MG/ML Syringe IV (06:05)
[2018-06-22 06:11] LABS: Hematocrit 33.5 % (37-47); Hemoglobin 10.3 g/dl (12.0-15.0); Mean Corp Hgb Conc 30.7 g/gl (32-36); Mean Corpuscular Hgb 28.9 pg (27.0-32.0); Mean Corpuscular Volume 94.1 fL (81-99); Mean Platelet Vol. 9.1 fl (6.2-12.0); Platelet Count 303 K/mm3 (150-450); RBC Distribution Width CV 13.8 % (11.6-14.6); RBC Distribution Width SD 45.6 fl (35.1-43.9); Red Blood Count 3.56 M/mm3 (4.2-5.4); White Blood Count 8.6 K/mm3 (4.4-11.0)
[2018-06-22 06:23] LABS: Scan Indicated on CBC? Y/N NO
[2018-06-22 09:00] VITALS: BP 140/95; PULSE 70; RESP 20; TEMP 37.1; O2SAT 98
[2018-06-22] MEDS: Pantoprazole Sodium 40 MG Tablet PO (09:26)
[2018-06-22] MEDS: Enoxaparin 40 MG/0.4 ML Syringe SC (09:26)
[2018-06-22] MEDS: DULoxetine Hcl 60 MG Capsule PO (09:27)
== END 2018-06-22 10:50 | disposition home or self-care (01) ==
LOC: SDC 05:28 → AC 05:29 → MS2 08:31
PROVIDERS: Anesthesiology; Surgery; Family Provider Registered Nurse; PCP Registered Nurse; Referring Provider Obstetrics & Gynecology; Visit Provider Obstetrics & Gynecology
PROC: (CPT 47610; principal; 2018-06-21 07:10)
PROC: (CPT 58260; 2018-06-21 07:10)
DX: N80.0 Endometriosis of uterus (principal); N72 Inflammatory disease of cervix uteri; K81.1 Chronic cholecystitis; F41.9 Anxiety disorder, unspecified; F32.9 Major depressive disorder, single episode, unspecified; G47.30 Sleep apnea, unspecified; K21.9 Gastro-esophageal reflux disease without esophagitis; D64.9 Anemia, unspecified; E06.9 Thyroiditis, unspecified; Z79.899 Other long term (current) drug therapy
CPT/HCPCS: 47562; 58262; 36415; 81025; 84443; 85027; 85610; 85730; 86850; 86900; 88304; 88307; 93005; 93306; J7120; Q9957; A4216; C8929; J2405

== ENCOUNTER → 2018-07-25 10:48 | Outpatient (CLI) | payer OTHER, SELFPAY ==
[2018-07-03 13:48] VITALS: BMI 46.5
[2018-07-18 16:29] VITALS: BMI 46.5
--- NOTE | 2018-07-25 10:50 | NM_ITS ---
CLINICAL: 38-year-old female with reported history of abdominal pain. SEMI-SOLID PHASE 99m Tc SULFUR COLLOID GASTRIC EMPTYING STUDY COMPARISON: None available FINDINGS: The patient was administered 1.1 mCi of 99m Tc sulfur colloid mixed with oatmeal and consumed per os. Image acquisitions in the anterior-posterior projections for a total of 60 minutes. There is prompt visualization of the stomach. There is no gastroesophageal reflux identified. The T1/2 linear fit was calculated to be 41.40 minutes, (Normal: 12-56 minutes). NM/Gastric Emptying Study IMPRESSION: 1. NORMAL 99m Tc sulfur colloid semi-solid phase (oatmeal) gastric emptying imaging examination. A. There is normal and preserved semi-solid phase gastric emptying compared to normal controls with maintained first order kinetics throughout all components of the examination. (Tee et al, J Nucl Med Tech 38: 186, 2010). Electronically Signed: Abad Sinha DO at 23:22 EST Tel , Service support ,
== END ==
PROVIDERS: Family Provider Registered Nurse; PCP Registered Nurse; Referring Provider Physician Assistant; Visit Provider Physician Assistant
DX: R13.10 Dysphagia, unspecified (principal)
CPT/HCPCS: 78264; A9541

== ENCOUNTER → 2018-07-27 07:10 | Outpatient (CLI) | payer OTHER, SELFPAY ==
[2018-07-18 16:29] VITALS: BMI 46.5
[2018-07-27 08:20] LABS: Absolute Lymphocyte Count 1.98 X10^3/ul (0.83-4.51); Absolute Neutrophil Count 4.3 X10^3/uL (2.0-7.7); Basophil# 0.05 X10^3/uL; Basophil% 0.7 % (0-1); Eosinophil# 0.23 X10^3/uL; Eosinophils% 3.3 % (0-5); Hemoglobin 11.2 g/dl (12.0-15.0); Lymphocyte # 1.98 X10^3/ul (4.0); Lymphocyte % 28.2 % (19-41); Mean Corp Hgb Conc 31.1 g/gl (32-36); Mean Corpuscular Hgb 28.6 pg (27.0-32.0); Mean Corpuscular Volume 91.8 fL (81-99); Mean Platelet Vol. 9.5 fl (6.2-12.0); Monocyte# 0.47 X10^3/uL; Monocyte% 6.7 % (0-10); Neutrophil # 4.29 X10^3/uL (2.7-7.7); Platelet Count 369 K/mm3 (150-450); RBC Distribution Width CV 13.8 % (11.6-14.6); RBC Distribution Width SD 45.5 fl (35.1-43.9); Red Blood Count 3.92 M/mm3 (4.2-5.4)
[2018-07-27 08:35] LABS: Hemoglobin A1c 6.3 % (4.2-6.3)
[2018-07-27 08:42] LABS: POSITIVE COUNT NO; POSITIVE DIFFERENTIAL NO; POSITIVE MORPHOLOGY NO
[2018-07-27 08:51] LABS: ALB/GLOB Ratio 0.9 RATIO (0.9-2.4); AST(SGOT) 11 U/L (15-37); Alanine Aminotransfer ALT/SGPT 27 U/L (13-56); Albumin, Serum 3.7 g/dL (3.2-5.0); Alkaline Phosphatase 73 U/L (45-117); Anion Gap 7 (5-15); BUN 13 mg/dL (7-18); BUN/Creat Ratio 16.5 RATIO (10-20); Calcium,Total 9.2 mg/dL (8.5-10.1); Chloride 107 mmol/L (98-107); Creatinine, Serum 0.79 mg/dL (0.55-1.02); EST Glomerular Filtration Rate 88 mL/min (>60); Est Glom Filt Rate - Afr Amer 107 mL/min (>60); Ferritin 9 ng/mL (8-252); Globulin 4.3 g/dL (2.2-4.2); Glucose 84 mg/dL (74-106); Iron 40 ug/dL (50-170); Iron Binding Capacity,Total 433 ug/dL (250-450); Potassium 4.4 mmol/L (3.5-5.1); Sodium Level 140 mmol/L (136-145); Thyroid Stim Hormone (TSH) 1.54 uIU/mL (0.358-3.74)
== END ==
PROVIDERS: Family Provider Registered Nurse; PCP Registered Nurse; Referring Provider Registered Nurse; Visit Provider Registered Nurse
DX: R53.83 Other fatigue (principal)
CPT/HCPCS: 36415; 80053; 82728; 83036; 83540; 83550; 84443; 85025

== ENCOUNTER → 2019-03-12 | Outpatient (CLI) | payer OTHER, SELFPAY ==
[2019-03-12 08:58] VITALS: BMI 46.5
[2019-03-12 12:38] LABS: Microalbumin:Creatinine Ratio 6.6 mg/g CRE (<30 mg/g CRE)
[2019-03-12 12:52] LABS: Hemoglobin A1c 5.7 % (4.2-6.3)
[2019-03-12 12:56] LABS: Ferritin 6 ng/mL (8-252); Iron 51 ug/dL (50-170); Iron Binding Capacity,Total 398 ug/dL (250-450); Thyroid Stim Hormone (TSH) 1.56 uIU/mL (0.358-3.74)
[2019-03-13 15:28] LABS: ANTINUCLEAR ANTIBODIES DIRECT Positive (Negative); Anti-Centromere B Ab <0.2 AI (0.0-0.9); Anti-Chromatin <0.2 AI (0.0-0.9); Anti-Jo <0.2 AI (0.0-0.9); Anti-Scleroderma-70 AB <0.2 AI (0.0-0.9); RNP Ab 0.3 AI (0.0-0.9); SJOGREN'S Anti-SS-A test 5.6 AI (0.0-0.9); SJOGREN'S Anti-SS-B test < 0.2 AI (0.0-0.9); Smith Ab <0.2 AI (0.0-0.9)
[2019-03-13 16:46] LABS: Anti-dsDNA Ab 1 IU/mL (0-9)
== END | disposition home or self-care (01) ==
LOC: BIMLAB 09:29
PROVIDERS: PCP Internal Medicine; Visit Provider Internal Medicine
DX: R73.03 Prediabetes (principal); D50.9 Iron deficiency anemia, unspecified; E03.9 Hypothyroidism, unspecified; M35.00 Sjogren syndrome, unspecified
CPT/HCPCS: 36415; 82043; 82570; 82728; 83036; 83540; 83550; 84443; 86038; 86225; 86235

== ENCOUNTER → 2019-03-13 | Outpatient (CLI) | payer OTHER, SELFPAY ==
[2018-07-31 13:41] VITALS: BMI 46.5
[2019-03-12 08:58] VITALS: BMI 46.5
--- NOTE | 2019-03-13 15:34 | MRI_ITS ---
STUDY: MRI BRAIN WITH AND WITHOUT CONTRAST REASON FOR EXAM: Female, 38 years old. Vertigo and headache TECHNIQUE: Standardized multiplanar fat and water weighted pulse sequences were obtained. 30 IV Dotarem was administered for the contrast portion of the examination. Motion limited exam. COMPARISON: None. FINDINGS: Normal size of the ventricles and extra-axial spaces for the patient's age. Normal white matter tracts of the supratentorial brain. There is no evidence for recent intracranial ischemia or other cause of cytotoxic edema on diffusion weighted imaging (DWI). Normal bilateral basal ganglia. Normal thalami. There is no extra-axial fluid accumulation. Normal flow voids within the major intracranial circulation suggesting patency by spin echo criteria. Normal venous enhancement. There is no enhancing intra-axial or extra-axial abnormality. Normal sella turcica, pituitary gland, infundibular stalk, optic chiasm and hypothalamus. Normal tectal plate and pineal gland. Normal midbrain, donte and medulla. Normal cerebellum. Normal basal cisterns. Normal bilateral temporal bones. Normal bilateral internal auditory canals. No demonstrated orbital abnormality, within the constraints of a routine brain study. Normal visualized paranasal sinuses. Normal calvarium and skull base. Normal visualized soft tissue structures. Normal visualized upper cervical spine. MRI/Brain W/WO Contrast IMPRESSION: Normal unenhanced and enhanced MRI of the brain. Electronically Signed: Pee Evans MD at 21:17 EDT , Service support ,
== END | disposition home or self-care (01) ==
LOC: MRI 15:31
PROVIDERS: Family Provider Internal Medicine; PCP Internal Medicine; Referring Provider Psychiatry & Neurology Neurology; Visit Provider Psychiatry & Neurology Neurology
DX: R42 Dizziness and giddiness (principal)
CPT/HCPCS: 70553; A9575

== ENCOUNTER → 2019-04-19 | Outpatient (CLI) | payer OTHER, SELFPAY ==
[2019-03-12 08:58] VITALS: BMI 46.5
== END | disposition home or self-care (01) ==
LOC: SL 20:22
PROVIDERS: Family Provider Internal Medicine; PCP Internal Medicine; Visit Provider Internal Medicine
DX: G47.30 Sleep apnea, unspecified (principal)
CPT/HCPCS: 95810

== ENCOUNTER → 2019-05-06 | Outpatient (CLI) | payer OTHER, SELFPAY ==
[2019-05-03 13:37] VITALS: BMI 47.8
== END | disposition home or self-care (01) ==
LOC: SL 21:27
PROVIDERS: Family Provider Internal Medicine; PCP Internal Medicine; Referring Provider Nurse Practitioner Acute Care; Visit Provider Nurse Practitioner Acute Care
DX: G47.33 Obstructive sleep apnea (adult) (pediatric) (principal); E66.2 Morbid (severe) obesity with alveolar hypoventilation
CPT/HCPCS: 95811

== ENCOUNTER → 2019-08-15 11:32 | Outpatient (CLI) | payer OTHER, SELFPAY ==
[2019-07-20 14:01] VITALS: BMI 47.8
[2019-08-15 11:35] LABS: Bacteria 0 SEEN /hpf (None Seen); Mucous, Urine 0 SEEN /hpf (<or=2+); Red Blood Cells-Urine 0 SEEN /hpf (0-5); White Blood Cells 0 SEEN /hpf (0-5)
[2019-08-15 12:28] LABS: Color, Urine Straw (Yellow); Glucose, Dipstick Normal (Normal); Ketone-Dipstick Negative (Negative); Leukocyte Esterase-Dipstick Negative /ul (Negative); Nitrite-Dipstick Negative (Negative); Occult Blood-Urine Negative /ul (Negative); Protein-Dipstick Negative (Negative); Urine Bilirubin Dipstick Negative (Negative); Urine Clarity Sl. Cloudy (Clear); Urine Urobilinogen Normal (Normal)
[2019-08-15 12:53] LABS: Squamous Epithelial Cells - UA 0-5 SEEN /hpf (5-10)
== END ==
PROVIDERS: PCP Internal Medicine; Referring Provider Nurse Practitioner Family; Visit Provider Nurse Practitioner Family
DX: R30.0 Dysuria (principal)
CPT/HCPCS: 81001; 87086; 87088

== ENCOUNTER → 2019-09-16 11:07 | Outpatient (CLI) | payer OTHER, SELFPAY ==
[2019-09-16 10:51] VITALS: BMI 49.9
[2019-09-16 12:53] LABS: Absolute Lymphocyte Count 2.12 X10^3/uL (0.83-4.51); Basophil# 0.06 X10^3/uL; Basophil% 0.9 % (0-1); Eosinophil# 0.18 X10^3/uL; Eosinophils% 2.7 % (0-5); Hematocrit 37.7 % (37-47); Hemoglobin 11.8 g/dL (12.0-15.0); Lymphocyte # 2.12 X10^3/ul (4.0); Lymphocyte % 31.3 % (19-41); Mean Corp Hgb Conc 31.3 g/dL (32-36); Mean Corpuscular Hgb 28.8 pg (27.0-32.0); Mean Platelet Vol. 9.7 fl (6.2-12.0); Monocyte# 0.46 X10^3/uL; Monocyte% 6.8 % (0-10); NRBC Flagged by Analyzer 0 % (0-5); Neutrophil # 3.95 X10^3/uL (2.7-7.7); Neutrophil % 58.2 % (47-70); Platelet Count 341 K/mm3 (150-450); RBC Distribution Width CV 13.9 % (11.6-14.6); RBC Distribution Width SD 46.8 fl (35.1-43.9); White Blood Count 6.8 K/mm3 (4.4-11.0)
== END ==
PROVIDERS: PCP Internal Medicine; Referring Provider Internal Medicine; Visit Provider Internal Medicine
DX: J40 Bronchitis, not specified as acute or chronic (principal)
CPT/HCPCS: 36415; 85025

== ENCOUNTER → 2019-12-16 10:02 | Outpatient (CLI) | payer OTHER, SELFPAY ==
[2019-12-16 09:33] VITALS: BMI 47.8
[2019-12-16 13:41] LABS: Anion Gap 8 (5-15); BUN 11 mg/dL (7-18); BUN/Creat Ratio 12.3 RATIO (10-20); Calcium,Total 9.7 mg/dL (8.5-10.1); Chloride 104 mmol/L (98-107); Creatinine, Serum 0.89 mg/dL (0.55-1.02); EST Glomerular Filtration Rate 75 mL/min (>60); Est Glom Filt Rate - Afr Amer 91 mL/min (>60); Glucose 110 mg/dL (74-106); Potassium 4.3 mmol/L (3.5-5.1); Sodium Level 139 mmol/L (136-145); Thyroid Stim Hormone (TSH) 1.21 uIU/mL (0.358-3.74)
== END ==
PROVIDERS: PCP Internal Medicine; Visit Provider Internal Medicine
DX: I10 Essential (primary) hypertension (principal); E03.9 Hypothyroidism, unspecified
CPT/HCPCS: 80048; 84443

== ENCOUNTER → 2020-03-31 13:49 | Outpatient (CLI) | payer OTHER, SELFPAY ==
[2020-03-31 13:23] VITALS: BMI 47.8
[2020-03-31 15:40] LABS: Erythrocyte Sedimentation Rate 28 mm/hr (0-20)
[2020-03-31 15:49] LABS: Ferritin 9 ng/mL (8-252); Iron 62 ug/dL (50-170); Iron Binding Capacity,Total 430 ug/dL (250-450); PERCENT IRON SATURATION 14.4 % (15.0-55.0); Rheumatoid Factor < 10.0 IU/mL (<15)
[2020-04-02 16:09] LABS: ANTINUCLEAR ANTIBODIES DIRECT Positive (Negative); Anti-Centromere B Ab <0.2 AI (0.0-0.9); Anti-Chromatin <0.2 AI (0.0-0.9); Anti-Jo <0.2 AI (0.0-0.9); Anti-Scleroderma-70 AB <0.2 AI (0.0-0.9); RNP Ab 0.3 AI (0.0-0.9); SJOGREN'S Anti-SS-A test 5.9 AI (0.0-0.9); SJOGREN'S Anti-SS-B test < 0.2 AI (0.0-0.9); Smith Ab <0.2 AI (0.0-0.9)
[2020-04-03 02:14] LABS: Anti-dsDNA Ab 1 IU/mL (0-9)
== END ==
PROVIDERS: PCP Internal Medicine; Visit Provider Nurse Practitioner Family
DX: F41.8 Other specified anxiety disorders (principal); M25.50 Pain in unspecified joint; M35.00 Sjogren syndrome, unspecified; D64.9 Anemia, unspecified
CPT/HCPCS: 36415; 82728; 83540; 83550; 85652; 86038; 86140; 86225; 86235; 86431

== ENCOUNTER → 2020-05-04 09:56 | Outpatient (CLI) | payer OTHER, SELFPAY ==
--- NOTE | 2020-05-04 10:00 | RAD_ITS ---
STUDY: X-RAY - PELVIS REASON FOR EXAM: Female, 39 years old. Inflammatory polyarthropathy TECHNIQUE: One view of the pelvis was obtained. COMPARISON: CT pelvis April 20, 2018 FINDINGS: There is a non-specific bowel gas pattern. The bladder appears distended. There is minimal narrowing with cortical sclerosis and osteophyte formation of the sacroiliac joint consistent with degenerative osteoarthritic changes. Normal visualized bilateral superior and inferior pubic rami. Normal pubic symphysis. Normal ischial tuberosities. Normal visualized right femoral head. Normal right acetabulum. There is mild articular joint space narrowing of the right hip. Normal visualized left femoral head. Normal left acetabulum. There is mild articular joint space narrowing of the left hip. RAD/Pelvis 1 or 2 Views IMPRESSION: Mild narrowing of the hip joints. Mild degenerative change of the SI joints. No visualized acute fracture. Electronically Signed: Harmony Lopez MD at 3:55 EDT Tel , Service support ,
[2020-05-04 11:06] LABS: EXAGEN MAILED SPECIMEN
[2020-05-04 12:18] LABS: Absolute Neutrophil Count 3.6 X10^3/uL (2.0-7.7); Basophil# 0.05 X10^3/uL; Basophil% 0.8 % (0-1); Eosinophil# 0.25 X10^3/uL; Hematocrit 36.1 % (37-47); Hemoglobin 11.2 g/dL (12.0-15.0); Lymphocyte % 30.6 % (19-41); Mean Corpuscular Hgb 28.6 pg (27.0-32.0); Mean Corpuscular Volume 92.1 fL (81-99); Mean Platelet Vol. 9.3 fl (6.2-12.0); Monocyte# 0.35 X10^3/uL; Monocyte% 5.6 % (0-10); NRBC Flagged by Analyzer 0 % (0-5); Neutrophil # 3.63 X10^3/uL (2.7-7.7); Neutrophil % 58.7 % (47-70); Platelet Count 333 K/mm3 (150-450); RBC Distribution Width CV 13.5 % (11.6-14.6); Red Blood Count 3.92 M/mm3 (4.2-5.4); White Blood Count 6.2 K/mm3 (4.4-11.0)
[2020-05-04 12:23] LABS: Color, Urine Yellow (Yellow); Glucose, Dipstick Normal (Normal); Ketone-Dipstick Negative (Negative); Leukocyte Esterase-Dipstick 25 /ul (Negative); Nitrite-Dipstick Negative (Negative); Occult Blood-Urine Negative /ul (Negative); Protein-Dipstick Negative (Negative); Urine Bilirubin Dipstick Negative (Negative); Urine Clarity Clear (Clear); Urine Urobilinogen Normal (Normal)
[2020-05-04 13:11] LABS: AST(SGOT) 15 U/L (15-37); Alanine Aminotransfer ALT/SGPT 20 U/L (13-56); Albumin, Serum 3.9 g/dL (3.2-5.0); Alkaline Phosphatase 71 U/L (45-117); Anion Gap 6 (5-15); BUN 12 mg/dL (7-18); BUN/Creat Ratio 13.8 RATIO (10-20); Calcium,Total 9.6 mg/dL (8.5-10.1); Chloride 103 mmol/L (98-107); Creatinine, Serum 0.87 mg/dL (0.55-1.02); EST Glomerular Filtration Rate 78 mL/min (>60); Est Glom Filt Rate - Afr Amer 94 mL/min (>60); Glucose 90 mg/dL (74-106); Protein, Total 7.9 g/dL (6.4-8.2); Sodium Level 138 mmol/L (136-145)
[2020-05-04 13:14] LABS: Protein, Urine (Random) 6.8 mg/dL (<11.9); Protein:Creat Ratio 145 mg/g CRE (0-200)
[2020-05-04 14:00] LABS: Hepatitis B Surface Antibody Reactive; Hepatitis B Surface Antigen Non-Reactive (Nonreactive); Hepatitis C Antibody Non-Reactive (Nonreactive)
[2020-05-08 16:15] LABS: HLA B27 Negative (.)
== END ==
PROVIDERS: Internal Medicine Rheumatology
DX: M06.4 Inflammatory polyarthropathy (principal); R76.8 Other specified abnormal immunological findings in serum; M35.00 Sjogren syndrome, unspecified; M21.41 Flat foot [pes planus] (acquired), right foot; K21.9 Gastro-esophageal reflux disease without esophagitis; F41.9 Anxiety disorder, unspecified; I10 Essential (primary) hypertension; E03.9 Hypothyroidism, unspecified; G47.33 Obstructive sleep apnea (adult) (pediatric); G43.909 Migraine, unspecified, not intractable, without status migrainosus
CPT/HCPCS: 36415; 72170; 80053; 81002; 81374; 82570; 84156; 85025; 86706; 86803; 87340

== ENCOUNTER → 2020-07-14 16:22 | Outpatient (CLI) | payer OTHER, SELFPAY ==
[2020-03-31 13:23] VITALS: BMI 47.8
[2020-07-14 17:06] LABS: Absolute Lymphocyte Count 2.05 X10^3/uL (0.83-4.51); Basophil# 0.05 X10^3/uL; Basophil% 0.7 % (0-1); Eosinophil# 0.22 X10^3/uL; Eosinophils% 3.2 % (0-5); Hematocrit 35.1 % (37-47); Hemoglobin 10.9 g/dL (12.0-15.0); Lymphocyte # 2.05 X10^3/ul (4.0); Lymphocyte % 29.8 % (19-41); Mean Corp Hgb Conc 31.1 g/dL (32-36); Mean Corpuscular Hgb 28.4 pg (27.0-32.0); Mean Corpuscular Volume 91.4 fL (81-99); Mean Platelet Vol. 9.4 fl (6.2-12.0); Monocyte# 0.53 X10^3/uL; Monocyte% 7.7 % (0-10); NRBC Flagged by Analyzer 0 % (0-5); Neutrophil # 3.99 X10^3/uL (2.7-7.7); Neutrophil % 58.2 % (47-70); Platelet Count 303 K/mm3 (150-450); RBC Distribution Width CV 13.5 % (11.6-14.6); RBC Distribution Width SD 45.1 fl (35.1-43.9); Red Blood Count 3.84 M/mm3 (4.2-5.4); White Blood Count 6.9 K/mm3 (4.4-11.0)
[2020-07-14 17:24] LABS: AST(SGOT) 13 U/L (15-37); Alanine Aminotransfer ALT/SGPT 20 U/L (13-56); Albumin, Serum 3.8 g/dL (3.2-5.0); Alkaline Phosphatase 66 U/L (45-117); Anion Gap 6 (5-15); BUN 11 mg/dL (7-18); BUN/Creat Ratio 13.8 RATIO (10-20); Calcium,Total 9.4 mg/dL (8.5-10.1); Chloride 105 mmol/L (98-107); EST Glomerular Filtration Rate 86 mL/min (>60); Est Glom Filt Rate - Afr Amer 103 mL/min (>60); Glucose 82 mg/dL (74-106); Potassium 3.9 mmol/L (3.5-5.1); Protein, Total 7.8 g/dL (6.4-8.2); Sodium Level 139 mmol/L (136-145)
[2020-07-15 07:00] LABS: SARS-COV-2 TOTAL ABS Reactive (Nonreactive)
== END ==
LOC: LAB.FUTURE 16:23 → BIMLAB 16:27
PROVIDERS: Nurse Practitioner Family; PCP Internal Medicine; Referring Provider Internal Medicine Rheumatology; Visit Provider Internal Medicine Rheumatology
DX: M06.4 Inflammatory polyarthropathy (principal); R76.8 Other specified abnormal immunological findings in serum; M35.00 Sjogren syndrome, unspecified; M21.41 Flat foot [pes planus] (acquired), right foot; K21.9 Gastro-esophageal reflux disease without esophagitis; F41.9 Anxiety disorder, unspecified; I10 Essential (primary) hypertension; E03.9 Hypothyroidism, unspecified; G47.33 Obstructive sleep apnea (adult) (pediatric); G43.909 Migraine, unspecified, not intractable, without status migrainosus; Z79.899 Other long term (current) drug therapy; Z20.828 Contact with and (suspected) exposure to other viral communicable diseases
CPT/HCPCS: 36415; 80053; 85025; 86769

== ENCOUNTER → 2020-09-28 14:30 | Outpatient (CLI) | payer OTHER, SELFPAY ==
[2020-03-31 13:23] VITALS: BMI 47.8
[2020-09-15 09:01] VITALS: BMI 54.1
[2020-09-28 15:22] LABS: Absolute Lymphocyte Count 1.71 X10^3/uL (0.83-4.51); Absolute Neutrophil Count 2.8 X10^3/uL (2.0-7.7); Basophil# 0.03 X10^3/uL; Basophil% 0.6 % (0-1); Eosinophil# 0.16 X10^3/uL; Eosinophils% 3.2 % (0-5); Hematocrit 38.5 % (37-47); Lymphocyte # 1.71 X10^3/ul (4.0); Lymphocyte % 33.9 % (19-41); Mean Corp Hgb Conc 31.2 g/dL (32-36); Mean Platelet Vol. 9.2 fl (6.2-12.0); Monocyte# 0.38 X10^3/uL; Monocyte% 7.5 % (0-10); NRBC Flagged by Analyzer 0 % (0-5); Neutrophil # 2.76 X10^3/uL (2.7-7.7); Neutrophil % 54.6 % (47-70); Platelet Count 294 K/mm3 (150-450); RBC Distribution Width CV 13.2 % (11.6-14.6); RBC Distribution Width SD 45.1 fl (35.1-43.9); Red Blood Count 4.14 M/mm3 (4.2-5.4); White Blood Count 5.1 K/mm3 (4.4-11.0)
[2020-09-28 16:14] LABS: ALB/GLOB Ratio 0.9 RATIO (0.9-2.4); AST(SGOT) 15 U/L (15-37); Alanine Aminotransfer ALT/SGPT 20 U/L (13-56); Albumin, Serum 3.6 g/dL (3.2-5.0); Alkaline Phosphatase 73 U/L (45-117); Anion Gap 3 (5-15); BUN 9 mg/dL (7-18); BUN/Creat Ratio 10.9 RATIO (10-20); Calcium,Total 9.6 mg/dL (8.5-10.1); Chloride 105 mmol/L (98-107); Creatinine, Serum 0.83 mg/dL (0.55-1.02); EST Glomerular Filtration Rate 82 mL/min (>60); Est Glom Filt Rate - Afr Amer 99 mL/min (>60); Glucose 82 mg/dL (74-106); Protein, Total 7.6 g/dL (6.4-8.2); Sodium Level 138 mmol/L (136-145)
[2020-09-29 09:52] LABS: Ferritin 18 ng/mL (8-252); Iron 52 ug/dL (50-170); Iron Binding Capacity,Total 377 ug/dL (250-450); Thyroid Stim Hormone (TSH) 1.14 uIU/mL (0.358-3.74)
== END ==
PROVIDERS: PCP Internal Medicine; Visit Provider Internal Medicine Rheumatology
DX: M06.4 Inflammatory polyarthropathy (principal); R76.8 Other specified abnormal immunological findings in serum; M35.00 Sjogren syndrome, unspecified; M21.41 Flat foot [pes planus] (acquired), right foot; K21.9 Gastro-esophageal reflux disease without esophagitis; F41.9 Anxiety disorder, unspecified; I10 Essential (primary) hypertension; E03.9 Hypothyroidism, unspecified; G47.33 Obstructive sleep apnea (adult) (pediatric); G43.909 Migraine, unspecified, not intractable, without status migrainosus; Z79.899 Other long term (current) drug therapy
CPT/HCPCS: 36415; 80053; 82728; 83540; 83550; 84443; 85025

== ENCOUNTER → 2020-12-04 11:05 | Outpatient (CLI) | payer OTHER, SELFPAY ==
[2020-09-15 09:01] VITALS: BMI 54.1
[2020-10-27 14:17] VITALS: BMI 54.1
[2020-12-04 12:09] LABS: Absolute Lymphocyte Count 1.72 X10^3/uL (0.83-4.51); Absolute Neutrophil Count 4.6 X10^3/uL (2.0-7.7); Basophil# 0.04 X10^3/uL; Basophil% 0.6 % (0-1); Eosinophil# 0.12 X10^3/uL; Eosinophils% 1.7 % (0-5); Hematocrit 37.8 % (37-47); Hemoglobin 12.1 g/dL (12.0-15.0); Lymphocyte # 1.72 X10^3/ul (0.83-4.51); Lymphocyte % 24.6 % (19-41); Mean Corpuscular Hgb 29.4 pg (27.0-32.0); Mean Platelet Vol. 9.2 fl (6.2-12.0); Monocyte# 0.49 X10^3/uL; NRBC Flagged by Analyzer 0 % (0-5); Neutrophil # 4.61 X10^3/uL (2.7-7.7); Neutrophil % 65.8 % (47-70); Platelet Count 341 K/mm3 (150-450); RBC Distribution Width CV 13.7 % (11.6-14.6); RBC Distribution Width SD 46.1 fl (35.1-43.9); Red Blood Count 4.11 M/mm3 (4.2-5.4)
[2020-12-04 12:38] LABS: ALB/GLOB Ratio 0.9 RATIO (0.9-2.4); AST(SGOT) 10 U/L (15-37); Alanine Aminotransfer ALT/SGPT 19 U/L (13-56); Albumin, Serum 3.9 g/dL (3.2-5.0); Alkaline Phosphatase 80 U/L (45-117); Anion Gap 5 (5-15); BUN 7 mg/dL (7-18); BUN/Creat Ratio 8.1 RATIO (10-20); Calcium,Total 10.1 mg/dL (8.5-10.1); Chloride 103 mmol/L (98-107); Creatinine, Serum 0.86 mg/dL (0.55-1.02); EST Glomerular Filtration Rate 78 mL/min (>60); Est Glom Filt Rate - Afr Amer 95 mL/min (>60); Globulin 4.3 g/dL (2.2-4.2); Glucose 101 mg/dL (74-106); Protein, Total 8.2 g/dL (6.4-8.2); Sodium Level 137 mmol/L (136-145)
== END ==
PROVIDERS: PCP Internal Medicine; Referring Provider Internal Medicine Rheumatology; Visit Provider Internal Medicine Rheumatology
DX: M06.4 Inflammatory polyarthropathy (principal); R76.8 Other specified abnormal immunological findings in serum; M35.00 Sjogren syndrome, unspecified; M21.41 Flat foot [pes planus] (acquired), right foot; K21.9 Gastro-esophageal reflux disease without esophagitis; F41.9 Anxiety disorder, unspecified; I10 Essential (primary) hypertension; E03.9 Hypothyroidism, unspecified; G47.33 Obstructive sleep apnea (adult) (pediatric); G43.909 Migraine, unspecified, not intractable, without status migrainosus; Z79.899 Other long term (current) drug therapy
CPT/HCPCS: 36415; 80053; 85025

== ENCOUNTER → 2021-01-08 16:40 | Outpatient (CLI) | payer OTHER, SELFPAY ==
[2020-12-31 08:09] VITALS: BMI 53.8
--- NOTE | 2021-01-08 16:42 | RAD_ITS ---
HISTORY: neck pain EXAMINATION/TECHNIQUE: XR Spine Cervical 2 or 3 Views: Three-view cervical spine COMPARISON: None FINDINGS: VERTEBRAE: Preserved vertebral body height. No fracture. No spondylolisthesis. Preservation of the normal cervical lordosis. Mild diffuse facet arthropathy. Multilevel endplate osteophyte formation, most prominent at C5-C6 and C6-C7 with anterior and posterior osteophytes. DISCS: Disc height loss at C3-C4, C5-C6 and C6-7. NECK SOFT TISSUES: No prevertebral soft tissue widening. LUNG APICES: Clear. RAD/Cerv Spine 2 or 3 Views IMPRESSION: Moderate cervical spondylosis, most prominent at C5-C6 No acute osseous finding. at 0131 Reported and signed by: Bharathi Pfeiffer MD Electronically Signed: Bharathi Pfeiffer MD at 1:29 EDT Tel , Service support ,
== END ==
PROVIDERS: PCP Internal Medicine; Referring Provider Psychiatry & Neurology Neurology; Visit Provider Psychiatry & Neurology Neurology
DX: M54.2 Cervicalgia (principal)
CPT/HCPCS: 72040

== ENCOUNTER → 2021-02-01 09:52 | Outpatient (CLI) | payer OTHER, SELFPAY ==
[2021-01-19 10:24] VITALS: BMI 53.8
[2021-02-01 12:27] LABS: Absolute Lymphocyte Count 1.28 X10^3/uL (0.83-4.51); Absolute Neutrophil Count 1.9 X10^3/uL (2.0-7.7); Basophil# 0.04 X10^3/uL; Basophil% 1.1 % (0-1); Eosinophil# 0.16 X10^3/uL; Eosinophils% 4.4 % (0-5); Hematocrit 37.2 % (37-47); Hemoglobin 11.8 g/dL (12.0-15.0); Lymphocyte # 1.28 X10^3/ul (0.83-4.51); Lymphocyte % 34.9 % (19-41); Mean Corp Hgb Conc 31.7 g/dL (32-36); Mean Corpuscular Hgb 30.5 pg (27.0-32.0); Mean Corpuscular Volume 96.1 fL (81-99); Mean Platelet Vol. 10.2 fl (6.2-12.0); Monocyte% 8.2 % (0-10); NRBC Flagged by Analyzer 0 % (0-5); Neutrophil # 1.88 X10^3/uL (2.7-7.7); Neutrophil % 51.1 % (47-70); Platelet Count 283 K/mm3 (150-450); RBC Distribution Width CV 13.7 % (11.6-14.6); RBC Distribution Width SD 48.2 fl (35.1-43.9); Red Blood Count 3.87 M/mm3 (4.2-5.4); White Blood Count 3.7 K/mm3 (4.4-11.0)
[2021-02-01 12:45] LABS: AST(SGOT) 17 U/L (15-37); Alanine Aminotransfer ALT/SGPT 26 U/L (13-56); Albumin, Serum 3.6 g/dL (3.2-5.0); Alkaline Phosphatase 63 U/L (45-117); Anion Gap 4 (5-15); BUN 8 mg/dL (7-18); BUN/Creat Ratio 9.3 RATIO (10-20); Calcium,Total 9.2 mg/dL (8.5-10.1); Chloride 107 mmol/L (98-107); Creatinine, Serum 0.86 mg/dL (0.55-1.02); EST Glomerular Filtration Rate 78 mL/min (>60); Est Glom Filt Rate - Afr Amer 94 mL/min (>60); Globulin 3.6 g/dL (2.2-4.2); Glucose 92 mg/dL (74-106); Potassium 4.4 mmol/L (3.5-5.1); Protein, Total 7.2 g/dL (6.4-8.2); Sodium Level 138 mmol/L (136-145)
== END ==
PROVIDERS: PCP Internal Medicine; Visit Provider Internal Medicine Rheumatology
DX: M06.4 Inflammatory polyarthropathy (principal); R76.8 Other specified abnormal immunological findings in serum; M35.00 Sjogren syndrome, unspecified; M21.41 Flat foot [pes planus] (acquired), right foot; K21.9 Gastro-esophageal reflux disease without esophagitis; F41.9 Anxiety disorder, unspecified; I10 Essential (primary) hypertension; E03.9 Hypothyroidism, unspecified; G47.33 Obstructive sleep apnea (adult) (pediatric); G43.909 Migraine, unspecified, not intractable, without status migrainosus; Z79.899 Other long term (current) drug therapy
CPT/HCPCS: 36415; 80053; 85025

== ENCOUNTER → 2021-04-12 15:54 | Outpatient (CLI) | payer OTHER, SELFPAY ==
[2021-04-12 16:31] LABS: Absolute Neutrophil Count 2.8 X10^3/uL (2.0-7.7); Basophil# 0.05 X10^3/uL; Basophil% 0.9 % (0-1); Eosinophil# 0.13 X10^3/uL; Eosinophils% 2.3 % (0-5); Hematocrit 37.5 % (37-47); Hemoglobin 12.1 g/dL (12.0-15.0); Lymphocyte % 40.2 % (19-41); Mean Corp Hgb Conc 32.3 g/dL (32-36); Mean Corpuscular Hgb 31.2 pg (27.0-32.0); Mean Corpuscular Volume 96.6 fL (81-99); Mean Platelet Vol. 9.5 fl (6.2-12.0); Monocyte# 0.43 X10^3/uL; Monocyte% 7.5 % (0-10); NRBC Flagged by Analyzer 0 % (0-5); Neutrophil % 48.9 % (47-70); Platelet Count 278 K/mm3 (150-450); RBC Distribution Width CV 13.8 % (11.6-14.6); Red Blood Count 3.88 M/mm3 (4.2-5.4); White Blood Count 5.7 K/mm3 (4.4-11.0)
[2021-04-12 17:04] LABS: Thyroid Stim Hormone (TSH) 1.09 uIU/mL (0.358-3.74)
== END ==
PROVIDERS: PCP Internal Medicine; Visit Provider Physician Assistant
DX: E03.9 Hypothyroidism, unspecified (principal); D64.9 Anemia, unspecified
CPT/HCPCS: 36415; 84443; 85025

== ENCOUNTER → 2021-05-05 09:52 | Outpatient (CLI) | payer OTHER, SELFPAY ==
[2021-05-05 12:13] LABS: Absolute Neutrophil Count 7.4 X10^3/uL (2.0-7.7); Basophil# 0.03 X10^3/uL; Basophil% 0.3 % (0-1); Eosinophil# 0.03 X10^3/uL; Eosinophils% 0.3 % (0-5); Hematocrit 39.2 % (37-47); Hemoglobin 12.2 g/dL (12.0-15.0); Lymphocyte % 19.3 % (19-41); Mean Corp Hgb Conc 31.1 g/dL (32-36); Mean Corpuscular Hgb 30.5 pg (27.0-32.0); Mean Platelet Vol. 9.8 fl (6.2-12.0); Monocyte# 0.47 X10^3/uL; Monocyte% 4.8 % (0-10); NRBC Flagged by Analyzer 0 % (0-5); Neutrophil # 7.37 X10^3/uL (2.7-7.7); Neutrophil % 74.8 % (47-70); Platelet Count 344 K/mm3 (150-450); RBC Distribution Width CV 13.3 % (11.6-14.6); RBC Distribution Width SD 47.5 fl (35.1-43.9); White Blood Count 9.9 K/mm3 (4.4-11.0)
[2021-05-05 12:24] LABS: AST(SGOT) 14 U/L (15-37); Alanine Aminotransfer ALT/SGPT 25 U/L (13-56); Albumin, Serum 3.8 g/dL (3.2-5.0); Alkaline Phosphatase 78 U/L (45-117); Anion Gap 4 (5-15); BUN 10 mg/dL (7-18); BUN/Creat Ratio 12.9 RATIO (10-20); Calcium,Total 10.1 mg/dL (8.5-10.1); Chloride 104 mmol/L (98-107); Creatinine, Serum 0.77 mg/dL (0.55-1.02); EST Glomerular Filtration Rate 88 mL/min (>60); Est Glom Filt Rate - Afr Amer 107 mL/min (>60); Globulin 3.8 g/dL (2.2-4.2); Glucose 95 mg/dL (74-106); Potassium 4.1 mmol/L (3.5-5.1); Protein, Total 7.6 g/dL (6.4-8.2); Sodium Level 136 mmol/L (136-145)
== END ==
PROVIDERS: PCP Internal Medicine; Referring Provider Internal Medicine Rheumatology; Visit Provider Internal Medicine Rheumatology
DX: M06.4 Inflammatory polyarthropathy (principal); R76.8 Other specified abnormal immunological findings in serum; M35.00 Sjogren syndrome, unspecified; M21.41 Flat foot [pes planus] (acquired), right foot; K21.9 Gastro-esophageal reflux disease without esophagitis; F41.9 Anxiety disorder, unspecified; I10 Essential (primary) hypertension; E03.9 Hypothyroidism, unspecified; G47.33 Obstructive sleep apnea (adult) (pediatric); G43.909 Migraine, unspecified, not intractable, without status migrainosus; Z79.899 Other long term (current) drug therapy
CPT/HCPCS: 36415; 80053; 85025

== ENCOUNTER 2021-05-10 09:06 | Day surgery (SDC) | payer OTHER, SELFPAY ==
[2021-05-10] VITALS (7 sets, daily range): BP systolic 111–149; BP diastolic 61–78; PULSE 54–72; RESP 16–18; TEMP 36.4–36.7; O2SAT 96–100; BMI 48.5
[2021-05-10] MEDS: Lactated Ringers 1,000 ML 100 ML IV (09:30)
--- NOTE | 2021-05-10 10:15 | COLBX_PTH ---
PATIENT: RAMEZ PAUL LOC: [facility] U#:[id number] AGE/SX: 40/F ROOM: RE05/10/[address]: Dr. Hammad Loaiza DO : 1980 BED: DIS: 05/10/2021 SPEC #: [id number] RECD: 05/10/21 14:01 STATUS: BETH SUKI #: [id number] GERMAN[place]: 05/10/21 10:[address]: Hammad Loaiza DEPT: SURGICAL PATHOLOGY RECD BY: Preethi Tamayo ENTERED: 05/11/21 10:04 SP TYPE: COLON BX OTHR DR: Dr. Wyatt Marcelo MD Tissues: A - Gastric mucous membrane B - Duodenum, NOS C - Rectum, NOS Procedures: Surgery Specimen Level IV HEADER OPERATION: Colonoscopy, [place] [place] DIAGNOSIS: Irritable bowel syndrome, constipation TISSUE SUBMITTED: A ? Antrum biopsy for H. pylori and path, B ? Duodenum biopsy, C ? Rectal polyp MICROSCOPIC DIAGNOSIS A. Gastric antrum, biopsy: Chronic gastritis. See comment. B. Duodenum, biopsy: No pathologic change. C. Rectal polyp, biopsy: Hyperplastic polyp. AM:tiago 05/12/2021 COMMENT A. The results of immunohistochemistry for Helicobacter pylori will be reported separately ([id number]). MICROSCOPIC DESCRIPTION Slides are reviewed. GROSS DESCRIPTION A - Received in fixative is one container labeled with the patient's name and designated antrum biopsy. The specimen consists of multiple irregular fragments of light jama soft tissue that in aggregate measure 1 x 0.3 x 0.1 cm. The specimen is totally submitted in one cassette. B - Received in fixative is one container labeled with the patient's name and designated biopsy duodenum. The specimen consists of multiple irregular fragments of light jama soft tissue that in aggregate measure 1 x 0.2 x 0.1 cm. The specimen is totally submitted in one cassette. C - Received in fixative is one container labeled with the patient's name and designated rectal polyp. The specimen consists of one irregular fragment of light jama soft tissue that measures 0.4 x 0.2 x 0.1 cm. The specimen is totally submitted in one cassette. / LUZ ELENA:tiago 05/11/21 TC:3 CPT: 78797 x3
--- NOTE | 2021-05-10 10:15 | IMM_PTH ---
PATIENT: RAMEZ PAUL LOC: [facility] U#:[id number] AGE/SX: 40/F ROOM: RE05/10/[address]: Dr. Hammad Loaiza DO : 1980 BED: DIS: 05/10/2021 SPEC #: [id number] RECD: 05/11/21 12:24 STATUS: BETH REQ #: [id number] GERMANIA: 05/10/21 10:[address]: Hammad Loaiza DEPT: IMMUNOHISTOCHEMISTRY RECD BY: Cleopatra Guevara ENTERED: 05/11/21 12:25 SP TYPE: IMMUNO OTHR DR: Dr. Wyatt Marcelo MD Tissues: A - Stomach, NOS Procedures: H Pylori (initial) PHYSICIAN & INSTITUTION [facility] [phone] SPECIMEN INFORMATION: Tissue Source: A ? Antrum biopsy Clinical Info: Irritable bowel syndrome, constipation Specimen Number: [id number] CPT code: 80949 METHODOLOGY: Deparaffinized sections of prefer/formalin-fixed tissue or PAP/DQ stained slides are incubated with monoclonal/polyclonal antibodies/oligonucleotide probes. Localization is made via biotin free immunoperoxidase method. Appropriate controls are performed and reacted as expected. Results on target cell population are indicated in the following table: RESULTS: ANTIBODY / CLONE RESULT Block A H Pylori (polyclonal) negative These tests were developed and their performance characteristics determined by [facility]. They may not have been cleared or approved by the U.S. Food and Drug Administration. The FDA has determined that such clearance or approval is not necessary. INTERPRETATION: A. Antrum biopsy: Negative for Helicobacter pylori organisms. AM:tiago 05/12/2021
--- NOTE | 2021-05-10 10:52 | HP.PCM_ITS ---
History and Physical Date of Admission: 05/10/21 RAMEZ PAUL, is a 40 F who presents to the office today for further evaluation of abdominal pain. She does have a history of migraine disorder. She was originally diagnosed with possible gastroparesis on an upper endoscopy. An official gastric emptying study had shown normal ejection at appropriate time from the stomach to the small bowel. She did have an CT scan that showed some sludge in her gallbladder. She had her gallbladder removed. She still having abdominal pain and cramping. She does not have a good bowel habits. She goes to the bathroom every 2 or 3 days with the use of extra dose of magnesium. History of irritable bowel and it seems to be getting worse. Symptoms include cycling between loose stools and constipations and nhi consistency. Also has issues with abdominal pain with constipation. Nausea and reflux is a regular issues. She is taking nexium which has helped in the past but is not helping as much. Last Gastroenterology 6-7 years prior. Last EGD about 3 years ago with last colonoscopy more than four years ago. Takes magnesium for headaches, reports taking an extra one to help with constipation and this helps. Other OTC medications cause her to overcorrect. ROS Const Constitutional: Positive for fatigue and headache(s) ENT ENT: Positive for headache(s) Gastro GI: Positive for abdominal pain, bloating, change in bowel habits, constipation, diarrhea, heartburn and nausea/dyspepsia Musc Musculoskeletal: Positive for joint pain, back pain, joint swelling, muscle cramps, stiffness, Arthritis and sciatica Neuro Neurology: Positive for headache(s) Psych Psychiatric: Positive for anxiety and Positive for depression Endo Endocrine: Positive for fatigue Exam Const General: cooperative and comfortable Nutritional Appearance: average body habitus and well nourished [facility] Head: normal to inspection Ears: hearing grossly normal bilaterally Nose: external nose normal Face and sinus: normal facial exam Mouth: oral mucosae normal Throat: posterior oropharynx normal Eyes General: appearance normal, both eyes and all related structures Neck Neck: normal visual inspection Chest Chest palpation & inspection: normal inspection of the chest and normal palpation of entire chest wall Resp Effort & Inspection: normal respiratory effort Auscultation: Bilateral: Clear to Auscultation Cardio Palpation: normal PMI Rate: regular rate Rhythm: regular rhythm GI Inspection: normal to inspection Auscultation: normal bowel sounds Percussion: normal to percussion Palpation: no hepatosplenomegaly Skin General: no rashes or lesions noted Neuro General: patient alert Extrem General: normal to inspection Psych Affect: normal affect Quality Reporting Tobacco Screening ([facility]) Smoking Status: Never smoker Assessment and Plan Assessment and Plan (1) IBS (irritable bowel syndrome): Status: Chronic Plan - Dr. Cueva Friend, DO: This could be an exacerbation of IBS however it also could be gastritis, esophagitis, duodenitis. She should be screened for Pena's esophagus and check her upper GI tract for any abnormalities. (2) Constipation: Status: Acute Plan - Dr. Cueva Friend, DO: We will evaluate her lower GI tract for any abnormalities. She was explained alternatives, risk, benefits including not withstanding bleeding, infection, sepsis, perforation, need for emergent surgery and . She would have an ASA of 1.
--- NOTE | 2021-05-10 11:44 | OP.EGD_ITS ---
Patient Name: Alma Aden Procedure Date: 05/10/2021 11:01 AM Date of : 1980 Age: 40 Procedure: Upper GI endoscopy Indications: Abdominal pain in the right upper quadrant, Failure to respond to medical treatment Providers: Hammad Loaiza DO Referring MD: Wyatt Marcelo MD Medicines: Propofol per Anesthesia Patient Profile: This is a 40 year old female. Refer to note in patient chart for documentation of history and physical. Patient has symptoms of acute abdominal cramping and acute right upper quadrant abdominal pain. The symptoms first began December. She is status post colonoscopy for polyp removal and EGD (normal) within the past five years. Complications: No immediate complications. Procedure: Pre-Anesthesia Assessment: - Prior to the procedure, a History and Physical was performed, and patient medications and allergies were reviewed. The patient is competent. The risks and benefits of the procedure and the sedation options and risks were discussed with the patient. All questions were answered and informed consent was obtained. Patient identification and proposed procedure were verified by the physician in the pre-procedure area. Mental Status Examination: alert and oriented. Airway Examination: normal oropharyngeal airway and neck mobility. Respiratory Examination: clear to auscultation. CV Examination: normal. Prophylactic Antibiotics: The patient does not require prophylactic antibiotics. Prior Anticoagulants: The patient has taken no previous anticoagulant or antiplatelet agents. ASA Grade Assessment: II - A patient with mild systemic disease. After reviewing the risks and benefits, the patient was deemed in satisfactory condition to undergo the procedure. The anesthesia plan was to use moderate sedation / analgesia (conscious sedation). Immediately prior to administration of medications, the patient was re-assessed for adequacy to receive sedatives. The heart rate, respiratory rate, oxygen saturations, blood pressure, adequacy of pulmonary ventilation, and response to care were monitored throughout the procedure. The physical status of the patient was re-assessed after the procedure. After obtaining informed consent, the endoscope was passed under direct vision. Throughout the procedure, the patient's blood pressure, pulse, and oxygen saturations were monitored continuously. The gastroscope was introduced through the mouth, and advanced to the second part of duodenum. The upper GI endoscopy was accomplished without difficulty. The patient tolerated the procedure well. Moderate Sedation: Moderate (conscious) sedation was administered by the endoscopy nurse and supervised by the endoscopist. The patient's oxygen saturation, heart rate, blood pressure and response to care were monitored. Total physician intraservice time was 15 minutes. Scope In: 11:08:08 AM Scope Out: 11:13:26 AM Total Procedure Duration Time 0 hours 5 minutes 18 seconds Findings: No other significant abnormalities were identified in a careful examination of the esophagus. Scattered moderate inflammation characterized by erosions, erythema and linear erosions was found in the entire examined stomach. Biopsies were taken with a cold forceps for histology. Verification of patient identification for the specimen was done. Estimated blood loss was minimal. Patchy mildly erythematous mucosa without active bleeding and with no stigmata of bleeding was found in the first portion of the duodenum. Biopsies were taken with a cold forceps for histology. Estimated blood loss was minimal. Impression: - Gastritis. Biopsied. - Erythematous duodenopathy. Biopsied. Recommendation: - Discharge patient to home. - Resume previous diet. - Continue present medications. - Await pathology results. - Repeat upper endoscopy in 1 year for surveillance. - Return to GI office in 2 weeks. Procedure Code(s): --- Professional --- 09341, Esophagogastroduodenoscopy, flexible, transoral; with biopsy, single or multiple G0500, Moderate sedation services provided by the same physician or other qualified health client care representative performing a gastrointestinal endoscopic service that sedation supports, requiring the presence of an independent trained observer to assist in the monitoring of the patient's level of consciousness and physiological status; initial 15 minutes of intra-service time; patient age 5 years or older (additional time may be reported with 06368, as appropriate) Diagnosis Code(s): --- Professional --- K29.70, Gastritis, unspecified, without bleeding K31.89, Other diseases of stomach and duodenum R10.11, Right upper quadrant pain CPT copyright 2017 [employer]. All rights reserved. The codes documented in this report are preliminary and upon college sports assistant review may be revised to meet current compliance requirements. Hammad Loaiza DO 05/10/2021 11:44:33 AM This report has been signed electronically. Number of Addenda: 1 Note Initiated On: 05/10/2021 11:01 AM Addendum Number: 1 Addendum Date: 03/17/2022 4:47:47 PM MAC was used instead of moderate sedation for this patient. Hammad Loaiza DO 03/17/2022 4:47:54 PM This report has been signed electronically.
--- NOTE | 2021-05-10 11:44 | OP.CCLET_ITS ---
03/17/2022 Wyatt Marcelo MD [address] [place] [address] [place] [address] Re : Upper GI endoscopy procedure for Alma Aden Dear Dr. Marcelo This procedure was performed on Monday, May 10, 2021. My impressions and recommendations are as follows: Impressions : - Gastritis. Biopsied. - Erythematous duodenopathy. Biopsied. Recommendations : - Discharge patient to home. - Resume previous diet. - Continue present medications. - Await pathology results. - Repeat upper endoscopy in 1 year for surveillance. - Return to GI office in 2 weeks. My findings are described in the full procedure note, which is enclosed. If I can be of further assistance, please feel free to contact me at . Sincerely, Hammad Friend, 05/10/2021 11:44:33 AM This report has been signed electronically.
--- NOTE | 2021-05-10 11:51 | OP.COLON_ITS ---
Patient Name: Alma Aden Procedure Date: 05/10/2021 11:15 AM Date of : 1980 Age: 40 Procedure: Colonoscopy Indications: Abdominal pain in the left lower quadrant Providers: Hammad Loaiza DO Referring MD: Wyatt Marcelo MD Medicines: See the Anesthesia note for documentation of the administered medications Patient Profile: This is a 40 year old female. Refer to note in patient chart for documentation of history and physical. Patient has symptoms of acute abdominal cramping and acute right upper quadrant abdominal pain. The symptoms first began December. She is status post colonoscopy for polyp removal and EGD (normal) within the past five years. She is status post colonoscopy (normal) five years ago. Last Colonoscopy: 5 years ago. Complications: No immediate complications. Procedure: Pre-Anesthesia Assessment: - Prior to the procedure, a History and Physical was performed, and patient medications and allergies were reviewed. The patient is competent. The risks and benefits of the procedure and the sedation options and risks were discussed with the patient. All questions were answered and informed consent was obtained. Patient identification and proposed procedure were verified by the physician in the pre-procedure area. Mental Status Examination: alert and oriented. Airway Examination: normal oropharyngeal airway and neck mobility. Respiratory Examination: clear to auscultation. CV Examination: normal. Prophylactic Antibiotics: The patient does not require prophylactic antibiotics. Prior Anticoagulants: The patient has taken no previous anticoagulant or antiplatelet agents. ASA Grade Assessment: II - A patient with mild systemic disease. After reviewing the risks and benefits, the patient was deemed in satisfactory condition to undergo the procedure. The anesthesia plan was to use moderate sedation / analgesia (conscious sedation). Immediately prior to administration of medications, the patient was re-assessed for adequacy to receive sedatives. The heart rate, respiratory rate, oxygen saturations, blood pressure, adequacy of pulmonary ventilation, and response to care were monitored throughout the procedure. The physical status of the patient was re-assessed after the procedure. - Prior to the procedure, a History and Physical was performed, and patient medications and allergies were reviewed. The patient is competent. The risks and benefits of the procedure and the sedation options and risks were discussed with the patient. All questions were answered and informed consent was obtained. Patient identification and proposed procedure were verified by the physician. Mental Status Examination: normal. Prophylactic Antibiotics: The patient does not require prophylactic antibiotics. Prior Anticoagulants: The patient has taken no previous anticoagulant or antiplatelet agents. ASA Grade Assessment: II - A patient with mild systemic disease. After reviewing the risks and benefits, the patient was deemed in satisfactory condition to undergo the procedure. The anesthesia plan was to use moderate sedation / analgesia (conscious sedation). Immediately prior to administration of medications, the patient was re-assessed for adequacy to receive sedatives. The heart rate, respiratory rate, oxygen saturations, blood pressure, adequacy of pulmonary ventilation, and response to care were monitored throughout the procedure. The physical status of the patient was re-assessed after the procedure. After I obtained informed consent, the scope was passed under direct vision. Throughout the procedure, the patient's blood pressure, pulse, and oxygen saturations were monitored continuously. The adult colonoscope was introduced through the anus and advanced to the terminal ileum. The colonoscopy was performed without difficulty. The patient tolerated the procedure well. The quality of the bowel preparation was adequate. The colonoscopy was somewhat difficult due to a tortuous colon. The patient tolerated the procedure well. The quality of the bowel preparation was adequate. The colonoscopy was somewhat difficult due to a tortuous colon. Successful completion of the procedure was aided by straightening and shortening the scope to obtain bowel loop reduction. Moderate Sedation: Moderate (conscious) sedation was personally administered by an anesthesia professional. The following parameters were monitored: oxygen saturation, heart rate, blood pressure, respiratory rate, EKG, adequacy of pulmonary ventilation, and response to care. Total physician intraservice time was 14 minutes. Scope In: 11:17:34 AM Scope Withdrawal Time 0 hours 12 minutes 8 seconds Scope Out: 11:37:59 AM Total Procedure Duration Time 0 hours 20 minutes 25 seconds Findings: The perianal and digital rectal examinations were normal. The transverse colon, hepatic flexure and right colon were mildly tortuous. A 3 mm polyp was found in the rectum. The polyp was sessile. The polyp was removed with a jumbo cold forceps. Resection and retrieval were complete. Verification of patient identification for the specimen was done. Estimated blood loss was minimal. Impression: - Tortuous colon. - One 3 mm polyp in the rectum, removed with a jumbo cold forceps. Resected and retrieved. Recommendation: - Repeat colonoscopy in 5 years for surveillance based on pathology results. - Return to GI office in 2 weeks. - Continue present medications. Procedure Code(s): --- Professional --- 46922, Colonoscopy, flexible; with biopsy, single or multiple Diagnosis Code(s): --- Professional --- K62.1, Rectal polyp R10.32, Left lower quadrant pain Q43.8, Other specified congenital malformations of intestine CPT copyright 2017 [employer]. All rights reserved. The codes documented in this report are preliminary and upon lombardi developer review may be revised to meet current compliance requirements. Hammad Loaiza DO 05/10/2021 11:51:29 AM This report has been signed electronically. Number of Addenda: 1 Note Initiated On: 05/10/2021 11:15 AM Addendum Number: 1 Addendum Date: 03/17/2022 4:48:04 PM MAC was used instead of moderate sedation for this patient. Hammad Loaiza DO 03/17/2022 4:48:08 PM This report has been signed electronically.
--- NOTE | 2021-05-10 11:53 | OP.CCLET_ITS ---
03/17/2022 Wyatt Marcelo MD [address] [place] [address] [place] [address] Re : Colonoscopy procedure for Alma Aden Dear Dr. Marcelo This procedure was performed on Monday, May 10, 2021. My impressions and recommendations are as follows: Impressions : - Tortuous colon. - One 3 mm polyp in the rectum, removed with a jumbo cold forceps. Resected and retrieved. Recommendations : - Repeat colonoscopy in 5 years for surveillance based on pathology results. - Return to GI office in 2 weeks. - Continue present medications. My findings are described in the full procedure note, which is enclosed. If I can be of further assistance, please feel free to contact me at . Sincerely, Hammad Friend, 05/10/2021 11:51:29 AM This report has been signed electronically.
== END 2021-05-10 12:21 | disposition home or self-care (01) ==
LOC: EN 09:06 → AC 09:07
PROVIDERS: PCP Internal Medicine; Referring Provider Internal Medicine; Visit Provider Internal Medicine Gastroenterology
PROC: 0DJD8ZZ Inspection of Lower Intestinal Tract, Via Natural or Artificial Opening Endoscopic (ICD-10-PCS; CPT 45378; principal; 2021-05-10 10:10)
DX: D12.8 Benign neoplasm of rectum (principal); Q43.8 Other specified congenital malformations of intestine; K29.50 Unspecified chronic gastritis without bleeding; K31.89 Other diseases of stomach and duodenum; G43.909 Migraine, unspecified, not intractable, without status migrainosus; G47.33 Obstructive sleep apnea (adult) (pediatric); K21.9 Gastro-esophageal reflux disease without esophagitis; K58.9 Irritable bowel syndrome, unspecified; M19.90 Unspecified osteoarthritis, unspecified site; F32.A Depression, unspecified; F41.9 Anxiety disorder, unspecified; D64.9 Anemia, unspecified; I10 Essential (primary) hypertension; E07.9 Disorder of thyroid, unspecified; Z79.899 Other long term (current) drug therapy
CPT/HCPCS: 43239; 45380; 88305; 88342; J7120; J2405

== ENCOUNTER → 2021-06-21 09:33 | Outpatient (CLI) | payer OTHER, SELFPAY ==
--- NOTE | 2021-06-21 16:00 | PFTCOMP_ITS ---
COMPLETE PULMONARY FUNCTION TEST INTERPRETATION Brief HPI: Patient is a 40 year old female, currently under the care of Johanny Tobar, who presents to [facility] for complete pulmonary function tests secondary to diagnosis of dyspnea. Respiratory therapist reports good effort and reproducible results. Interpretation: Forced expiration spirometry shows no large airways obstructive ventilatory defect with an FEV1 of 103% predicted. There is no significant bronchodilator response by strict ATS criteria. Spirograms are of good quality and plateau normally. The respiratory flow volume loop shows a normal pattern. There is some flattening of the inspiratory limb, but does not reach clinical criteria for variable extrathoracic obstruction. Lung volumes by body plethysmography show a normal total lung capacity at 6.69 L, 114% predicted. All other lung volumes are within normal limits. Diffusion capacity by carbon monoxide is normal at 104% predicted. The airway resistance is normal. No previous pulmonary function tests were available for review. Impression: These pulmonary function tests are within normal limits
== END ==
PROVIDERS: PCP Internal Medicine; Referring Provider Nurse Practitioner Acute Care; Visit Provider Nurse Practitioner Acute Care
DX: R06.02 Shortness of breath (principal)
CPT/HCPCS: 94060; 94726; 94729

== ENCOUNTER 2021-07-26 11:09 | Outpatient (CLI) | payer OTHER, SELFPAY ==
[2021-07-26 12:07] LABS: Absolute Neutrophil Count 4.6 X10^3/uL (2.0-7.7); Basophil# 0.04 X10^3/uL; Basophil% 0.5 % (0-1); Eosinophil# 0.22 X10^3/uL; Eosinophils% 2.9 % (0-5); Hematocrit 36.8 % (37-47); Hemoglobin 11.7 g/dL (12.0-15.0); Lymphocyte % 28.1 % (19-41); Mean Corp Hgb Conc 31.8 g/dL (32-36); Mean Corpuscular Hgb 30.2 pg (27.0-32.0); Mean Corpuscular Volume 94.8 fL (81-99); Mean Platelet Vol. 9.3 fl (6.2-12.0); Monocyte# 0.52 X10^3/uL; NRBC Flagged by Analyzer 0 % (0-5); Neutrophil # 4.55 X10^3/uL (2.7-7.7); Platelet Count 310 K/mm3 (150-450); RBC Distribution Width CV 13.7 % (11.6-14.6); RBC Distribution Width SD 47.2 fl (35.1-43.9); Red Blood Count 3.88 M/mm3 (4.2-5.4); White Blood Count 7.5 K/mm3 (4.4-11.0)
[2021-07-26 12:34] LABS: ALB/GLOB Ratio 0.9 RATIO (0.9-2.4); AST(SGOT) 14 U/L (15-37); Alanine Aminotransfer ALT/SGPT 21 U/L (13-56); Albumin, Serum 3.6 g/dL (3.2-5.0); Alkaline Phosphatase 71 U/L (45-117); Anion Gap 8 (5-15); BUN 9 mg/dL (7-18); BUN/Creat Ratio 12.2 RATIO (10-20); Calcium,Total 9.8 mg/dL (8.5-10.1); Chloride 104 mmol/L (98-107); Creatinine, Serum 0.74 mg/dL (0.55-1.02); EST Glomerular Filtration Rate 93 mL/min (>60); Est Glom Filt Rate - Afr Amer 113 mL/min (>60); Globulin 4.2 g/dL (2.2-4.2); Glucose 100 mg/dL (74-106); Potassium 3.7 mmol/L (3.5-5.1); Protein, Total 7.8 g/dL (6.4-8.2); Sodium Level 138 mmol/L (136-145)
== END 2021-07-26 23:59 | disposition short-term general hospital (02) ==
LOC: BIMLAB 11:12
PROVIDERS: PCP Internal Medicine; Referring Provider Internal Medicine Rheumatology; Visit Provider Internal Medicine Rheumatology
DX: M06.4 Inflammatory polyarthropathy (principal); M35.00 Sjogren syndrome, unspecified; R76.8 Other specified abnormal immunological findings in serum; M21.41 Flat foot [pes planus] (acquired), right foot; M21.42 Flat foot [pes planus] (acquired), left foot; K21.9 Gastro-esophageal reflux disease without esophagitis; F41.9 Anxiety disorder, unspecified; I10 Essential (primary) hypertension; E03.9 Hypothyroidism, unspecified; G47.33 Obstructive sleep apnea (adult) (pediatric); G43.909 Migraine, unspecified, not intractable, without status migrainosus; Z79.899 Other long term (current) drug therapy
CPT/HCPCS: 36415; 80053; 85025

== ENCOUNTER 2021-09-13 09:49 | Outpatient (CLI) | payer OTHER, SELFPAY ==
--- NOTE | 2021-09-13 10:31 | RAD_ITS ---
STUDY: X-RAY - LUMBAR SPINE REASON FOR EXAM: Female, 41 years old. PAIN TECHNIQUE: 3 view(s) of the lumbar spine were obtained. COMPARISON: None FINDINGS: Normal lumbar lordosis. There is no substantial scoliosis. There is a normal alignment of the vertebrae. Normal vertebral bodies and endplates. No visualized fracture or compression deformity. Mild anterolisthesis of 2 to 3 mm and posterior disc space narrowing is demonstrated at L3-L4. Normal remaining disc space heights. The soft tissue structures are unremarkable. RAD/Lumbar Spine 2 or 3 Views IMPRESSION: Degenerative changes of the spine, as detailed above. Electronically Signed: Anderson Rodney MD at 12:45 EST ,
--- NOTE | 2021-09-13 10:31 | RAD_ITS ---
STUDY: X-RAY - LEFT FOOT CLINICAL: Female, 41 years old. PAIN pt is currently having pain on top of left foot, close to the ankle, painful to walk TECHNIQUE: 3 view(s) of the foot. COMPARISON: None. FINDINGS: Normal talus, calcaneus, and tarsal bones. Normal visualized subtalar, talonavicular, calcaneocuboid, tarsal and tarsometatarsal articulations. Normal metatarsi. Normal metatarsophalangeal joint of the great toe. Normal tibial and fibular sesamoid bones. Normal interphalangeal joint of the great toe. Normal phalanges of the great toe. Normal second through fifth metatarsophalangeal joints. Normal interphalangeal joints and phalanges of the lesser toes. The soft tissue structures are unremarkable. There is no demonstrated fracture. RAD/Foot min 3 Views IMPRESSION: Normal x-ray examination of the left foot. Electronically Signed: Anderson Rodney MD at 11:29 EST ,
--- NOTE | 2021-09-13 10:31 | RAD_ITS ---
STUDY: X-RAY - RIGHT KNEE REASON FOR EXAM: Female, 41 years old. PAIN TECHNIQUE: 1 frontal view(s) of the knee. Technologist Notes bilateral knee pain order stated to do AP view only COMPARISON: None. FINDINGS: Normal visualized distal femur. Normal visualized proximal tibia and fibula. Normal proximal tibiofibular articulation. There is no demonstrated destructive osseous lesion. There is mild degenerative arthrosis of the medial femorotibial compartment. There is mild degenerative arthrosis of the lateral femorotibial compartment. . The soft tissue structures are unremarkable. RAD/Knee 1 or 2 Views IMPRESSION: Degenerative arthrosis of the right knee. Electronically Signed: Anderson Rodney MD at 12:45 EST ,
--- NOTE | 2021-09-13 10:31 | RAD_ITS ---
STUDY: X-RAY - RIGHT FOOT CLINICAL: Female, 41 years old. PAIN s pt is currently having pain on top of left foot, close to the ankle, painful to walk TECHNIQUE: 3 view(s) of the foot. COMPARISON: None. FINDINGS: Normal talus, calcaneus, and tarsal bones. Normal visualized subtalar, talonavicular, calcaneocuboid, tarsal and tarsometatarsal articulations. Normal metatarsi. No visualized fracture or displaced bony fragment. Normal metatarsophalangeal joint of the great toe. Normal tibial and fibular sesamoid bones. Normal interphalangeal joint of the great toe. Normal phalanges of the great toe. Normal second through fifth metatarsophalangeal joints. Normal interphalangeal joints and phalanges of the lesser toes. The soft tissue structures are unremarkable. There is no demonstrated fracture. RAD/Foot min 3 Views IMPRESSION: Normal x-ray examination of the right foot. Electronically Signed: Anderson Rodney MD at 11:30 EST ,
--- NOTE | 2021-09-13 10:31 | RAD_ITS ---
STUDY: X-RAY - RIGHT HAND REASON FOR EXAM: Female, 41 years old. PAIN TECHNIQUE: 3 view(s) of the hand. COMPARISON: None. FINDINGS: Normal radiocarpal articulation. Normal distal radioulnar joint. Normal visualized carpal bones. Normal carpal articulations Normal carpometacarpal articulation of the thumb. Normal second through fifth carpometacarpal joints. Normal metacarpi. No fracture is seen. No erosions or osteophytes are present. Normal metacarpophalangeal joint of the thumb. Normal interphalangeal joint of the thumb. Normal proximal and distal phalanges of the thumb. Normal metacarpophalangeal joints of the second through fifth fingers. Normal proximal and distal interphalangeal joints of the second through fifth fingers. Normal phalanges of the second through fifth fingers. The soft tissue structures are unremarkable. RAD/Hand Min 3 Views IMPRESSION: Normal x-ray examination of the right hand. Electronically Signed: Anderson Rodney MD at 11:20 EST ,
--- NOTE | 2021-09-13 10:31 | RAD_ITS ---
STUDY: X-RAY - LEFT HAND REASON FOR EXAM: Female, 41 years old. PAIN TECHNIQUE: 3 view(s) of the hand. COMPARISON: None. FINDINGS: Normal radiocarpal articulation. Normal distal radioulnar joint. Normal visualized carpal bones. Normal carpal articulations Normal carpometacarpal articulation of the thumb. Normal second through fifth carpometacarpal joints. Normal metacarpi. No fracture is seen. No erosions or osteophytes are present. Normal metacarpophalangeal joint of the thumb. Normal interphalangeal joint of the thumb. Normal proximal and distal phalanges of the thumb. Normal metacarpophalangeal joints of the second through fifth fingers. Normal proximal and distal interphalangeal joints of the second through fifth fingers. Normal phalanges of the second through fifth fingers. The soft tissue structures are unremarkable. RAD/Hand Min 3 Views IMPRESSION: Normal x-ray examination of the left hand. Electronically Signed: Anderson Rodney MD at 11:20 EST ,
--- NOTE | 2021-09-13 10:31 | RAD_ITS ---
STUDY: X-RAY - LEFT KNEE REASON FOR EXAM: Female, 41 years old. PAIN Technologist Notes bilateral knee pain order stated to do AP view only TECHNIQUE: 1 frontal view(s) of the knee. COMPARISON: None. FINDINGS: Normal visualized distal femur. Normal visualized proximal tibia and fibula. Normal proximal tibiofibular articulation. There is no demonstrated fracture. Normal medial femorotibial compartment. There is mild degenerative arthrosis of the lateral femorotibial compartment. The soft tissue structures are unremarkable. RAD/Knee 1 or 2 Views IMPRESSION: Degenerative arthrosis. Electronically Signed: Anderson Rodney MD at 11:30 EST ,
[2021-09-13 12:09] LABS: Absolute Lymphocyte Count 1.48 X10^3/uL (0.83-4.51); Absolute Neutrophil Count 3.9 X10^3/uL (2.0-7.7); Basophil# 0.04 X10^3/uL; Basophil% 0.7 % (0-1); Eosinophil# 0.11 X10^3/uL; Eosinophils% 1.8 % (0-5); Hematocrit 35.8 % (37-47); Hemoglobin 11.7 g/dL (12.0-15.0); Lymphocyte # 1.48 X10^3/ul (0.83-4.51); Lymphocyte % 24.7 % (19-41); Mean Corp Hgb Conc 32.7 g/dL (32-36); Mean Corpuscular Hgb 31.1 pg (27.0-32.0); Mean Corpuscular Volume 95.2 fL (81-99); Mean Platelet Vol. 9.3 fl (6.2-12.0); Monocyte# 0.46 X10^3/uL; Monocyte% 7.7 % (0-10); NRBC Flagged by Analyzer 0 % (0-5); Neutrophil # 3.89 X10^3/uL (2.7-7.7); Neutrophil % 64.9 % (47-70); Platelet Count 317 K/mm3 (150-450); RBC Distribution Width CV 13.5 % (11.6-14.6); RBC Distribution Width SD 47.2 fl (35.1-43.9); Red Blood Count 3.76 M/mm3 (4.2-5.4)
[2021-09-13 12:31] LABS: ALB/GLOB Ratio 0.9 RATIO (0.9-2.4); AST(SGOT) 16 U/L (15-37); Alanine Aminotransfer ALT/SGPT 25 U/L (13-56); Albumin, Serum 3.6 g/dL (3.2-5.0); Alkaline Phosphatase 64 U/L (45-117); Anion Gap 5 (5-15); BUN 10 mg/dL (7-18); BUN/Creat Ratio 14.5 RATIO (10-20); CPK Total, Creatine Kinase 62 U/L (26-192); Calcium,Total 9.5 mg/dL (8.5-10.1); Chloride 105 mmol/L (98-107); Creatinine, Serum 0.69 mg/dL (0.55-1.02); EST Glomerular Filtration Rate 100 mL/min (>60); Est Glom Filt Rate - Afr Amer 121 mL/min (>60); Ferritin 38 ng/mL (8-252); Globulin 3.8 g/dL (2.2-4.2); Glucose 96 mg/dL (74-106); Iron 65 ug/dL (50-170); Iron Binding Capacity,Total 386 ug/dL (250-450); PERCENT IRON SATURATION 16.8 % (15.0-55.0); Potassium 3.9 mmol/L (3.5-5.1); Protein, Total 7.4 g/dL (6.4-8.2); Rheumatoid Factor < 10.0 IU/mL (<15); Sodium Level 139 mmol/L (136-145)
[2021-09-13 12:51] LABS: Vitamin B12 405 pg/mL (211-911); Vitamin D,25 Hydroxy 25.3 ng/mL
[2021-09-14 16:10] LABS: RNP Ab 0.4 AI (0.0-0.9); SJOGREN'S Anti-SS-A test 4.7 AI (0.0-0.9); SJOGREN'S Anti-SS-B test < 0.2 AI (0.0-0.9); Smith Ab <0.2 AI (0.0-0.9)
[2021-09-15 14:23] LABS: Anti-Nuclear Antibody Test Negative (.); Anti-dsDNA Ab 1 IU/mL (0-9)
[2021-09-16 18:58] LABS: CCP IgG Antibodies 7 units (0-19); Deamidated Gliadin IgA 4 units (0-19); Deamidated Gliadin IgG 2 units (0-19); t-Transglutaminase IgA <2 U/mL (0-3)
== END 2021-09-13 23:59 | disposition home or self-care (01) ==
PROVIDERS: PCP Internal Medicine; Referring Provider Internal Medicine; Visit Provider Internal Medicine
DX: M25.50 Pain in unspecified joint (principal)
CPT/HCPCS: 36415; 72100; 73130; 73560; 73630; 80053; 82306; 82550; 82607; 82728; 83516; 83540; 83550; 85025; 86038; 86200; 86225; 86235; 86431

== ENCOUNTER 2021-09-14 12:53 | Outpatient (CLI) | payer OTHER, SELFPAY ==
[2021-09-14 16:11] LABS: Protein, Urine (Random) < 6.0 mg/dL (<11.9)
[2021-09-14 16:26] LABS: Color, Urine Yellow (Yellow); Glucose, Dipstick Normal (Normal); Ketone-Dipstick Negative (Negative); Leukocyte Esterase-Dipstick Negative /ul (Negative); Nitrite-Dipstick Negative (Negative); Occult Blood-Urine Negative /ul (Negative); Protein-Dipstick Negative (Negative); Specific Gravity, Urine 1.005 (1.002-1.030); Urine Bilirubin Dipstick Negative (Negative); Urine Clarity Clear (Clear); Urine Urobilinogen Normal (Normal)
== END 2021-09-14 23:59 | disposition home or self-care (01) ==
LOC: BIMLAB 12:53
PROVIDERS: PCP Internal Medicine; Referring Provider Internal Medicine; Visit Provider Internal Medicine
DX: M25.50 Pain in unspecified joint (principal)
CPT/HCPCS: 81002; 82570; 84156

== ENCOUNTER 2021-10-08 13:59 | Outpatient (CLI) | payer OTHER, SELFPAY ==
--- NOTE | 2021-10-08 14:01 | VDLE_ITS ---
Reason For Study: LLE PAIN Procedure LEFT This is a venous duplex using B-mode, color GSV is normal. flow and spectral Doppler. CFV is compressible, spontaneous, phasic, Exam performed in department. competent, and demonstrates normal The study was technically difficult. augmentation. Due to body habitus. FV is compressible, spontaneous, phasic, A preliminary report was called and/or faxed competent and demonstrates normal to Dirk Paula REGISTERED NURSING PROFESSOR-C @ [phone] @ 2:25 pm. augmentation. POP V is compressible, spontaneous, phasic, competent and demonstrates normal augmentation. T/P Trunk is compressible. PTV is compressible. LT PerV is compressible. VL/Venous Duplex US, Unilateral Interpretation Summary Deep veins of the left lower extremity are patent and compressible segmentally. There is no evidence of left lower extremity deep vein thrombosis. Valvular competence appears intac t within the proximal deep venous system on the left . The left great saphenous vein appears patent a nd compressible segmentally. Ordering Physician: Dirk Paula Referring Physician: Wyatt Marcelo Performed By: Ida Becerra, MILLIE, RVT
== END 2021-10-08 23:59 | disposition home or self-care (01) ==
LOC: CVS 14:00
PROVIDERS: PCP Internal Medicine; Referring Provider Nurse Practitioner Family; Visit Provider Nurse Practitioner Family
DX: M79.662 Pain in left lower leg (principal)
CPT/HCPCS: 93971

== ENCOUNTER 2021-10-21 11:07 | Outpatient (CLI) | payer OTHER, SELFPAY ==
[2021-10-21 12:06] LABS: Absolute Lymphocyte Count 1.87 X10^3/uL (0.83-4.51); Absolute Neutrophil Count 3.8 X10^3/uL (2.0-7.7); Basophil# 0.05 X10^3/uL; Basophil% 0.8 % (0-1); Eosinophil# 0.13 X10^3/uL; Hematocrit 36.5 % (37-47); Hemoglobin 11.6 g/dL (12.0-15.0); Lymphocyte # 1.87 X10^3/ul (0.83-4.51); Lymphocyte % 28.9 % (19-41); Mean Corp Hgb Conc 31.8 g/dL (32-36); Mean Corpuscular Hgb 30.7 pg (27.0-32.0); Mean Corpuscular Volume 96.6 fL (81-99); Mean Platelet Vol. 9.4 fl (6.2-12.0); Monocyte# 0.57 X10^3/uL; Monocyte% 8.8 % (0-10); NRBC Flagged by Analyzer 0 % (0-5); Neutrophil # 3.82 X10^3/uL (2.7-7.7); Neutrophil % 59.2 % (47-70); Platelet Count 306 K/mm3 (150-450); RBC Distribution Width CV 13.1 % (11.6-14.6); Red Blood Count 3.78 M/mm3 (4.2-5.4); White Blood Count 6.5 K/mm3 (4.4-11.0)
[2021-10-21 12:36] LABS: ALB/GLOB Ratio 0.9 RATIO (0.9-2.4); AST(SGOT) 13 U/L (15-37); Alanine Aminotransfer ALT/SGPT 22 U/L (13-56); Albumin, Serum 3.4 g/dL (3.2-5.0); Alkaline Phosphatase 62 U/L (45-117); Anion Gap 3 (5-15); BUN 10 mg/dL (7-18); Calcium,Total 9.2 mg/dL (8.5-10.1); Chloride 105 mmol/L (98-107); Creatinine, Serum 0.83 mg/dL (0.55-1.02); EST Glomerular Filtration Rate 81 mL/min (>60); Est Glom Filt Rate - Afr Amer 98 mL/min (>60); Globulin 3.9 g/dL (2.2-4.2); Glucose 83 mg/dL (74-106); Potassium 4.1 mmol/L (3.5-5.1); Protein, Total 7.3 g/dL (6.4-8.2); Sodium Level 137 mmol/L (136-145); T4 Free Direct 1.08 ng/dL (0.76-1.46); Thyroid Stim Hormone (TSH) 0.15 uIU/mL (0.358-3.74)
== END 2021-10-21 23:59 | disposition home or self-care (01) ==
LOC: BIMLAB 11:08
PROVIDERS: Internal Medicine Endocrinology, Diabetes & Metabolism; PCP Internal Medicine; Referring Provider Internal Medicine Rheumatology; Visit Provider Internal Medicine Rheumatology
DX: E03.9 Hypothyroidism, unspecified (principal)
CPT/HCPCS: 80053; 84439; 84443; 85025

== ENCOUNTER → 2021-12-27 | Outpatient (CLI) | payer OTHER, SELFPAY ==
[2021-12-27 12:10] LABS: Absolute Lymphocyte Count 2.52 X10^3/uL (0.83-4.51); Absolute Neutrophil Count 3.6 X10^3/uL (2.0-7.7); Basophil# 0.04 X10^3/uL; Basophil% 0.6 % (0-1); Eosinophil# 0.18 X10^3/uL; Eosinophils% 2.6 % (0-5); Hemoglobin 12.8 g/dL (12.0-15.0); Lymphocyte # 2.52 X10^3/ul (0.83-4.51); Mean Corpuscular Hgb 30.5 pg (27.0-32.0); Mean Corpuscular Volume 95.5 fL (81-99); Mean Platelet Vol. 9.8 fl (6.2-12.0); Monocyte# 0.42 X10^3/uL; Monocyte% 6.2 % (0-10); NRBC Flagged by Analyzer 0 % (0-5); Neutrophil # 3.64 X10^3/uL (2.7-7.7); Neutrophil % 53.3 % (47-70); Platelet Count 346 K/mm3 (150-450); RBC Distribution Width CV 13.2 % (11.6-14.6); RBC Distribution Width SD 46.8 fl (35.1-43.9); Red Blood Count 4.19 M/mm3 (4.2-5.4); White Blood Count 6.8 K/mm3 (4.4-11.0)
[2021-12-27 12:16] LABS: Anion Gap 6 (5-15); BUN 10 mg/dL (7-18); BUN/Creat Ratio 10.8 RATIO (10-20); Calcium,Total 9.6 mg/dL (8.5-10.1); Chloride 103 mmol/L (98-107); Creatinine, Serum 0.93 mg/dL (0.55-1.02); EST Glomerular Filtration Rate 71 mL/min (>60); Est Glom Filt Rate - Afr Amer 86 mL/min (>60); Glucose 84 mg/dL (74-106); Potassium 3.9 mmol/L (3.5-5.1); Sodium Level 138 mmol/L (136-145)
[2021-12-27 12:21] LABS: Ferritin 36 ng/mL (8-252); Iron 55 ug/dL (50-170); Iron Binding Capacity,Total 413 ug/dL (250-450); PERCENT IRON SATURATION 13.3 % (15.0-55.0)
== END | disposition home or self-care (01) ==
LOC: BIMLAB 09:42
PROVIDERS: Nurse Practitioner Family; PCP Internal Medicine; Referring Provider Physician Assistant; Visit Provider Physician Assistant
DX: I10 Essential (primary) hypertension (principal); D64.9 Anemia, unspecified
CPT/HCPCS: 36415; 80048; 82728; 83540; 83550; 85025

== ENCOUNTER → 2022-01-11 | Outpatient (CLI) | payer OTHER, SELFPAY ==
[2022-01-11 12:17] LABS: Absolute Lymphocyte Count 1.75 X10^3/uL (0.83-4.51); Absolute Neutrophil Count 4.9 X10^3/uL (2.0-7.7); Basophil# 0.06 X10^3/uL; Basophil% 0.8 % (0-1); Eosinophil# 0.19 X10^3/uL; Eosinophils% 2.5 % (0-5); Hematocrit 42.4 % (37-47); Hemoglobin 12.4 g/dL (12.0-15.0); Lymphocyte # 1.75 X10^3/ul (0.83-4.51); Lymphocyte % 23.3 % (19-41); Mean Corp Hgb Conc 29.2 g/dL (32-36); Mean Corpuscular Volume 109.3 fL (81-99); Mean Platelet Vol. 9.5 fl (6.2-12.0); Monocyte# 0.55 X10^3/uL; Monocyte% 7.3 % (0-10); NRBC Flagged by Analyzer 0 % (0-5); Neutrophil # 4.92 X10^3/uL (2.7-7.7); Neutrophil % 65.7 % (47-70); Platelet Count 255 K/mm3 (150-450); RBC Distribution Width CV 14.1 % (11.6-14.6); RBC Distribution Width SD 57.1 fl (35.1-43.9); Red Blood Count 3.88 M/mm3 (4.2-5.4); White Blood Count 7.5 K/mm3 (4.4-11.0)
[2022-01-11 12:46] LABS: ALB/GLOB Ratio 0.9 RATIO (0.9-2.4); AST(SGOT) 12 U/L (15-37); Alanine Aminotransfer ALT/SGPT 18 U/L (13-56); Albumin, Serum 3.6 g/dL (3.2-5.0); Alkaline Phosphatase 72 U/L (45-117); Anion Gap 5 (5-15); BUN 6 mg/dL (7-18); BUN/Creat Ratio 8.1 RATIO (10-20); Calcium,Total 9.8 mg/dL (8.5-10.1); Chloride 103 mmol/L (98-107); Creatinine, Serum 0.74 mg/dL (0.55-1.02); EST Glomerular Filtration Rate 93 mL/min (>60); Est Glom Filt Rate - Afr Amer 112 mL/min (>60); Globulin 3.9 g/dL (2.2-4.2); Glucose 93 mg/dL (74-106); Potassium 3.9 mmol/L (3.5-5.1); Protein, Total 7.5 g/dL (6.4-8.2); Sodium Level 138 mmol/L (136-145)
[2022-01-11 12:56] LABS: T4 Free Direct 0.96 ng/dL (0.76-1.46); Thyroid Stim Hormone (TSH) 0.32 uIU/mL (0.358-3.74)
== END | disposition home or self-care (01) ==
LOC: BIMLAB 11:33
PROVIDERS: Internal Medicine Endocrinology, Diabetes & Metabolism; PCP Internal Medicine; Referring Provider Internal Medicine Rheumatology; Visit Provider Internal Medicine Rheumatology
DX: E03.8 Other specified hypothyroidism (principal); E06.3 Autoimmune thyroiditis
CPT/HCPCS: 36415; 80053; 84439; 84443; 85025

== ENCOUNTER 2022-03-07 12:09 | Outpatient (REF) | payer SELFPAY ==
[2022-03-07 12:10] VITALS: BP 139/72; PULSE 73; RESP 15; TEMP 36.6; O2SAT 98; BMI 55.3
--- NOTE | 2022-03-07 12:55 | EDS_ITS ---
HPI History of Present Illness Chief Complaint: Occup Expose Informant: patient Onset/Context/Timing Onset: Days (2 days ago) Narrative Narrative: Patient presents after occupational exposure. 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 This was after drawing blood from a patient in TCU. [facility] Medical History Alcohol use Anemia Anxiety Anxiety and depression Arthritis Back pain BiPAP (biphasic positive airway pressure) dependence Constipation COVID-19 Depression Gastric reflux GERD (gastroesophageal reflux disease) Health care maintenance History of echocardiogram History of edema History of hiatal hernia History of irregular heartbeat History of steroid therapy Hypertension IBS (irritable bowel syndrome) Insulin resistance Leg cramps Migraine headache Non-smoker Pain of left calf Restless legs Seasonal allergies Shortness of breath on exertion Sjogren's disease Sleep apnea Sleep concern Stomach ulcer Thyroid disease Vitamin deficiency Home Medications magnesium oxide 400 mg PO QDAY 09/14/17 [History Last Taken 06/20/18 10:00] compress.stocking,knee,reg,lrg #2 ea 03/12/19 [Rx Last Taken Unknown] ferrous sulfate 325 mg (65 mg iron) tablet (FeroSul) 325 mg PO DAILY 12/16/19 [History Last Taken Unknown] hydroxychloroquine 200 mg tablet (Plaquenil) 200 mg PO BID 08/20/20 [History Last Taken Unknown] methotrexate sodium 25 mg/mL injection solution 17.5 mg subcut QWEEK 12/31/20 [History Last Taken Unknown] bisacodyl 5 mg tablet 5 mg PO ONCE #4 tabs 05/06/21 [Rx Last Taken Unknown] folic acid 1 mg tablet 2 mg PO DAILY 05/06/21 [History Last Taken Unknown] mupirocin 2 % topical ointment 1 applic topical PRN PRN Rash 05/06/21 [History Last Taken Unknown] levothyroxine 150 mcg tablet 150 mcg PO DAILY #90 tabs 08/19/21 [Rx Last Taken Unknown] duloxetine 60 mg capsule,delayed release (Cymbalta) 60 mg PO QDAY DEPRESSION #90 caps 08/23/21 [Rx Last Taken Unknown] ubrogepant 100 mg tablet (Ubrelvy) 100 mg PO ONCE PRN MIGRAINES #10 tabs 10/14/21 [Rx Last Taken Unknown] alprazolam 0.25 mg tablet (Xanax) 0.25 mg PO DAILY PRN PRN Anxiety #20 tabs 11/22/21 [Rx Last Taken Unknown] hydrochlorothiazide 25 mg tablet 25 mg PO DAILY #90 tabs 11/22/21 [Rx Last Taken Unknown] dulaglutide 0.75 mg/0.5 mL subcutaneous pen injector (Trulicity) 0.75 mg (0.5 mL) subcut QWEEK #2 mL 11/26/21 [Rx Last Taken Unknown] dexamethasone 6 mg tablet (Decadron) 6 mg PO DAILY #5 tabs 02/10/22 [Rx Last Taken Unknown] Allergy/AdvReac Type Severity Reaction Status Date / Time penicillin G Allergy Mild Other Verified 03/07/22 12:10 latex Allergy Rash Verified 03/07/22 12:10 escitalopram [From Lexapro] AdvReac Other Verified 03/07/22 12:10 Family History Grandmother Heart disease Arthritis Diabetes Hypertension Thyroid disorder Stomach ulcer Mother Asthma Arthritis Hypertension Aunt Arthritis Heart disease Autoimmune disease Grandfather Cancer lung Father Hypertension Uncle Heart disease Other Anemia Anesthesia complication Anxiety Parkinson disease Skin cancer Surgical History History of total vaginal hysterectomy (TVH) Hx of hysterectomy lesion removal from lip Social History Smoking Status: Never smoker alcohol intake: current alcohol intake frequency: holidays/special occasions only details: Social substance use type: does not use caffeine: Yes what type of physical activity do you participate in: walking frequency: 1-2 times per week seatbelt use: always do you feel safe at home: Yes 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 [employer] ROS ROS ED Constitutional Constitutional ED: Denies chills or fever(s) Eyes Eyes: Denies change in vision ENT ENT ED: Denies rhinorrhea or sore throat Cardiovascular Cardiovascular: Denies chest pain or palpitations Respiratory/Chest Respiratory/Chest: Denies cough or dyspnea Gastrointestinal Gastrointestinal: Denies abdominal pain, nausea or vomiting Genitourinary Genitourinary ED: Denies dysuria Musculoskeletal Musculoskeletal: Denies back pain Integumentary Reports other Details: Puncture wound left third finger ; Denies Abrasions or rash Neurologic Neurologic: Denies headache(s) or weakness Allergic/Immunologic Allergic/Immunologic ED: Denies lip swelling or urticaria EXAM Physical Exam Const Vital Signs: 03/07/22 12:10 Temperature 97.9 F Temperature Source Temporal Pulse Rate 73 Respiratory Rate 15 Blood Pressure 139/72 H Blood Pressure Mean 94 Pulse Ox 98 Oxygen Delivery Method Room Air Positive well nourished and well developed General Appearance ED: well developed HEENT Reports moist mucous membranes Eyes EOMs intact bilaterally Chest Wall inspection of chest normal and palpation of chest normal Resp normal respiratory effort and clear to auscultation bilaterally Cardio regular rate and regular rhythm GI normal to inspection, nondistended, normoactive bowel sounds and non-tender Extremity Extremity Narrative: Puncture wound to the radial aspect of the left third finger over the proximal phalanx. No surrounding erythema or sign of infection. Full range of motion of the digit without difficulty. Neuro oriented x3 Skin Skin Narrative: Puncture wound as above. MDM MDM Treatment and Re-Evaluation Narrative: Lab work for occupational exposure will be obtained. Patient be discharged and will follow up with employee health. Discharge Plan Triage Chief Complaint: Occup Expose ED Provider: Angie Larsen Dx/Rx/DC Orders Clinical Impression: Occupational exposure in workplace, Needlestick injury of finger Instructions: ED NEEDLE STICK Health Care Worker Prescriptions: No Action magnesium oxide 400 mg capsule 400 mg capsule 400 mg PO QDAY (DME) compress.stocking,knee,reg,lrg Misc See Rx Instructions .ROUTE .MEDSUPPLY Qty: 2 1RF Rx Instructions: wear daily for venous insufficiency 20-30 mmHg ferrous sulfate [FeroSul] 325 mg (65 mg iron) tablet 325 mg PO DAILY hydroxychloroquine [Plaquenil] 200 mg tablet 200 mg PO BID methotrexate sodium 25 mg/mL solution 17.5 mg SC QWEEK levothyroxine 150 mcg tablet 150 mcg PO DAILY Qty: 90 3RF alprazolam [Xanax] 0.25 mg tablet 0.25 mg PO DAILY PRN PRN (Reason: Anxiety) Qty: 20 0RF hydrochlorothiazide 25 mg tablet 25 mg PO DAILY Qty: 90 3RF dexamethasone [Decadron] 6 mg tablet 6 mg PO DAILY Qty: 5 0RF folic acid 1 mg Tablet 2 mg PO DAILY mupirocin 2 % ointment 1 applic TOPICAL PRN PRN (Reason: Rash) bisacodyl 5 mg tablet 5 mg PO ONCE Qty: 4 0RF Rx Instructions: Take as directed for bowel prep duloxetine [Cymbalta] 60 mg capsule,delayed release(DR/EC) 60 mg PO QDAY Qty: 90 3RF Ubrelvy 100 mg tablet 100 mg PO ONCE PRN (Reason: MIGRAINES) Qty: 10 4RF Rx Instructions: as a single dose; may repeat once in >=2 hours after first dose if needed Trulicity 0.75 mg/0.5 mL pen injector 0.75 mg subcut QWEEK Qty: 2 3RF Primary Care Provider: Wyatt Marcelo Referrals: Wyatt Marcelo MD [Primary Care Provider] - Health,Employee [Non-Staff] - 5-7 Days Disposition Disposition: Home, Self Care
[2022-03-07 13:25] VITALS: PULSE 84; RESP 16; O2SAT 98
[2022-03-07 14:34] LABS: HIV - WCH Non-Reactive (Nonreactive); Hepatitis B Surface Antibody Reactive; Hepatitis B Surface Antigen Non-Reactive (Nonreactive); Hepatitis C Antibody Non-Reactive (Nonreactive)
== END 2022-03-07 13:26 | disposition home or self-care (01) ==
LOC: EDREF 12:09
PROVIDERS: PCP Internal Medicine; Visit Provider Emergency Medicine
DX: S61.233A Puncture wound without foreign body of left middle finger without damage to nail, initial encounter (principal); W46.1XXA Contact with contaminated hypodermic needle, initial encounter; Y92.230 Patient room in hospital as the place of occurrence of the external cause
CPT/HCPCS: 86703; 86706; 86803; 87340

== ENCOUNTER → 2022-03-22 | Outpatient (CLI) | payer OTHER, SELFPAY ==
[2022-03-22 13:08] LABS: T4 Free Direct 1.03 ng/dL (0.76-1.46); Thyroid Stim Hormone (TSH) 0.35 uIU/mL (0.358-3.74)
== END | disposition home or self-care (01) ==
LOC: BIMLAB 08:20
PROVIDERS: PCP Internal Medicine; Referring Provider Physician Assistant; Visit Provider Physician Assistant
DX: E03.8 Other specified hypothyroidism (principal); E06.3 Autoimmune thyroiditis
CPT/HCPCS: 36415; 84439; 84443

== ENCOUNTER → 2022-04-22 | Outpatient (CLI) | payer OTHER, SELFPAY ==
[2022-04-22 09:34] LABS: Absolute Lymphocyte Count 1.57 X10^3/uL (0.83-4.51); Absolute Neutrophil Count 5.4 X10^3/uL (2.0-7.7); Basophil# 0.02 X10^3/uL; Basophil% 0.3 % (0-1); Eosinophils% 1.3 % (0-5); Hemoglobin 13.5 g/dL (12.0-15.0); Lymphocyte # 1.57 X10^3/ul (0.83-4.51); Lymphocyte % 20.3 % (19-41); Mean Corp Hgb Conc 32.1 g/dL (32-36); Mean Corpuscular Hgb 30.2 pg (27.0-32.0); Mean Platelet Vol. 9.3 fl (6.2-12.0); Monocyte% 7.8 % (0-10); NRBC Flagged by Analyzer 0 % (0-5); Neutrophil # 5.43 X10^3/uL (2.7-7.7); Platelet Count 390 K/mm3 (150-450); RBC Distribution Width CV 13.2 % (11.6-14.6); RBC Distribution Width SD 44.7 fl (35.1-43.9); Red Blood Count 4.47 M/mm3 (4.2-5.4); White Blood Count 7.7 K/mm3 (4.4-11.0)
[2022-04-22 10:01] LABS: ALB/GLOB Ratio 0.9 RATIO (0.9-2.4); AST(SGOT) 23 U/L (15-37); Alanine Aminotransfer ALT/SGPT 29 U/L (13-56); Albumin, Serum 3.9 g/dL (3.2-5.0); Alkaline Phosphatase 76 U/L (45-117); Anion Gap 9 (5-15); BUN 10 mg/dL (7-18); BUN/Creat Ratio 9.1 RATIO (10-20); Calcium,Total 10.5 mg/dL (8.5-10.1); Chloride 104 mmol/L (98-107); EST Glomerular Filtration Rate 59 mL/min (>60); Est Glom Filt Rate - Afr Amer 71 mL/min (>60); Globulin 4.3 g/dL (2.2-4.2); Glucose 94 mg/dL (74-106); Potassium 3.8 mmol/L (3.5-5.1); Protein, Total 8.2 g/dL (6.4-8.2); Sodium Level 139 mmol/L (136-145)
== END | disposition home or self-care (01) ==
PROVIDERS: PCP Internal Medicine; Referring Provider Internal Medicine Rheumatology; Visit Provider Internal Medicine Rheumatology
DX: M06.4 Inflammatory polyarthropathy (principal); M35.00 Sjogren syndrome, unspecified; R76.8 Other specified abnormal immunological findings in serum; M21.41 Flat foot [pes planus] (acquired), right foot; K21.9 Gastro-esophageal reflux disease without esophagitis; F41.9 Anxiety disorder, unspecified; I10 Essential (primary) hypertension; E03.9 Hypothyroidism, unspecified; G47.33 Obstructive sleep apnea (adult) (pediatric); G43.909 Migraine, unspecified, not intractable, without status migrainosus; K58.9 Irritable bowel syndrome, unspecified; R19.7 Diarrhea, unspecified; Z79.899 Other long term (current) drug therapy
CPT/HCPCS: 36415; 80053; 85025; 87493; 87506

== ENCOUNTER → 2022-06-13 | Outpatient (CLI) | payer OTHER, SELFPAY ==
[2022-06-13 12:21] LABS: Absolute Lymphocyte Count 2.41 X10^3/uL (0.83-4.51); Absolute Neutrophil Count 4.5 X10^3/uL (2.0-7.7); Basophil# 0.07 X10^3/uL; Basophil% 0.9 % (0-1); Eosinophil# 0.13 X10^3/uL; Eosinophils% 1.7 % (0-5); Hemoglobin 12.9 g/dL (12.0-15.0); Lymphocyte # 2.41 X10^3/ul (0.83-4.51); Lymphocyte % 31.9 % (19-41); Mean Corp Hgb Conc 33.1 g/dL (32-36); Mean Corpuscular Hgb 31.4 pg (27.0-32.0); Mean Corpuscular Volume 94.9 fL (81-99); Mean Platelet Vol. 8.9 fl (6.2-12.0); Monocyte# 0.48 X10^3/uL; Monocyte% 6.3 % (0-10); NRBC Flagged by Analyzer 0 % (0-5); Neutrophil # 4.45 X10^3/uL (2.7-7.7); Neutrophil % 58.9 % (47-70); Platelet Count 345 K/mm3 (150-450); RBC Distribution Width CV 13.4 % (11.6-14.6); RBC Distribution Width SD 47.2 fl (35.1-43.9); Red Blood Count 4.11 M/mm3 (4.2-5.4); White Blood Count 7.6 K/mm3 (4.4-11.0)
[2022-06-13 13:08] LABS: Vitamin D,25 Hydroxy 14.3 ng/mL
[2022-06-13 13:38] LABS: AST(SGOT) 13 U/L (15-37); Alanine Aminotransfer ALT/SGPT 22 U/L (13-56); Albumin, Serum 3.7 g/dL (3.2-5.0); Alkaline Phosphatase 66 U/L (45-117); Anion Gap 7 (5-15); BUN 12 mg/dL (7-18); BUN/Creat Ratio 13.9 RATIO (10-20); Calcium,Total 9.5 mg/dL (8.5-10.1); Chloride 101 mmol/L (98-107); Creatinine, Serum 0.86 mg/dL (0.55-1.02); EST Glomerular Filtration Rate 77 mL/min (>60); Est Glom Filt Rate - Afr Amer 94 mL/min (>60); Globulin 3.8 g/dL (2.2-4.2); Glucose 117 mg/dL (74-106); Potassium 3.5 mmol/L (3.5-5.1); Protein, Total 7.5 g/dL (6.4-8.2); Sodium Level 136 mmol/L (136-145)
[2022-06-13 13:56] LABS: PTHIN 138.9 pg/mL (18.4-80.1)
[2022-06-13 14:02] LABS: Thyroid Stim Hormone (TSH) 0.99 uIU/mL (0.358-3.74)
[2022-06-14 15:21] LABS: Thyroid Peroxidase AB 26 IU/mL (0-34)
== END | disposition home or self-care (01) ==
LOC: BIMLAB 11:30
PROVIDERS: Internal Medicine Rheumatology; PCP Internal Medicine; Referring Provider Internal Medicine Endocrinology, Diabetes & Metabolism; Visit Provider Internal Medicine Endocrinology, Diabetes & Metabolism
DX: M06.4 Inflammatory polyarthropathy (principal); Z79.899 Other long term (current) drug therapy; R76.8 Other specified abnormal immunological findings in serum
CPT/HCPCS: 36415; 80053; 82306; 83970; 84439; 84443; 85025; 86376

== ENCOUNTER → 2022-06-24 | Outpatient (CLI) | payer OTHER, SELFPAY ==
--- NOTE | 2022-06-24 14:44 | RAD_ITS ---
INDICATION: PAIN EXAMINATION/TECHNIQUE: X-RAY - XR Chest 1 View COMPARISON: None. FINDINGS: LINES/DEVICES: None. LUNGS: No consolidation, edema or effusion. No pneumothorax. MEDIASTINUM AND CARDIOVASCULAR STRUCTURES: Cardiac silhouette not enlarged. Central airways and mediastinal contour are unremarkable. BONES AND SOFT TISSUES: Dorsal spine demonstrates mild degenerative change. RAD/Chest 1 View IMPRESSION: No radiographic evidence of acute cardiopulmonary disease. Electronically Signed: Júnior Cornejo MD at 21:25 EST ,
== END | disposition home or self-care (01) ==
PROVIDERS: PCP Internal Medicine; Referring Provider Internal Medicine Rheumatology; Visit Provider Internal Medicine Rheumatology
DX: M06.4 Inflammatory polyarthropathy (principal); M35.00 Sjogren syndrome, unspecified; R76.8 Other specified abnormal immunological findings in serum; M21.41 Flat foot [pes planus] (acquired), right foot; K21.9 Gastro-esophageal reflux disease without esophagitis; F41.9 Anxiety disorder, unspecified; I10 Essential (primary) hypertension; E03.9 Hypothyroidism, unspecified; G47.33 Obstructive sleep apnea (adult) (pediatric); G43.909 Migraine, unspecified, not intractable, without status migrainosus; F32.A Depression, unspecified; Z79.899 Other long term (current) drug therapy
CPT/HCPCS: 36415; 71045; 86480

== ENCOUNTER → 2022-08-04 | Outpatient (CLI) | payer OTHER, SELFPAY ==
[2022-08-04 15:37] LABS: Absolute Lymphocyte Count 2.02 X10^3/uL (0.83-4.51); Absolute Neutrophil Count 2.8 X10^3/uL (2.0-7.7); Basophil# 0.04 X10^3/uL; Basophil% 0.7 % (0-1); Eosinophils% 1.9 % (0-5); Hematocrit 38.2 % (37-47); Hemoglobin 12.3 g/dL (12.0-15.0); Lymphocyte # 2.02 X10^3/ul (0.83-4.51); Lymphocyte % 37.8 % (19-41); Mean Corp Hgb Conc 32.2 g/dL (32-36); Mean Corpuscular Hgb 30.8 pg (27.0-32.0); Mean Corpuscular Volume 95.7 fL (81-99); Mean Platelet Vol. 9.5 fl (6.2-12.0); Monocyte# 0.36 X10^3/uL; Monocyte% 6.7 % (0-10); NRBC Flagged by Analyzer 0 % (0-5); Neutrophil % 52.5 % (47-70); Platelet Count 339 K/mm3 (150-450); RBC Distribution Width CV 13.1 % (11.6-14.6); RBC Distribution Width SD 45.3 fl (35.1-43.9); Red Blood Count 3.99 M/mm3 (4.2-5.4); White Blood Count 5.3 K/mm3 (4.4-11.0)
[2022-08-04 16:44] LABS: Vitamin D,25 Hydroxy 39.8 ng/mL
[2022-08-04 16:46] LABS: AST(SGOT) 20 U/L (15-37); Alanine Aminotransfer ALT/SGPT 34 U/L (13-56); Albumin, Serum 3.9 g/dL (3.2-5.0); Alkaline Phosphatase 57 U/L (45-117); Anion Gap 8 (5-15); BUN 11 mg/dL (7-18); BUN/Creat Ratio 12.9 RATIO (10-20); Calcium,Total 10.1 mg/dL (8.5-10.1); Chloride 103 mmol/L (98-107); Creatinine, Serum 0.85 mg/dL (0.55-1.02); EST Glomerular Filtration Rate 79 mL/min (>60); Est Glom Filt Rate - Afr Amer 95 mL/min (>60); Globulin 3.8 g/dL (2.2-4.2); Glucose 98 mg/dL (74-106); Potassium 3.5 mmol/L (3.5-5.1); Protein, Total 7.7 g/dL (6.4-8.2); Sodium Level 139 mmol/L (136-145)
[2022-08-04 16:47] LABS: Thyroid Stim Hormone (TSH) 1.23 uIU/mL (0.358-3.74)
== END | disposition home or self-care (01) ==
LOC: BIMLAB 14:11
PROVIDERS: Internal Medicine Endocrinology, Diabetes & Metabolism; PCP Internal Medicine; Visit Provider Internal Medicine Rheumatology
DX: M06.4 Inflammatory polyarthropathy (principal); M35.00 Sjogren syndrome, unspecified; R76.8 Other specified abnormal immunological findings in serum; M21.41 Flat foot [pes planus] (acquired), right foot; K21.9 Gastro-esophageal reflux disease without esophagitis; F41.9 Anxiety disorder, unspecified; I10 Essential (primary) hypertension; G47.33 Obstructive sleep apnea (adult) (pediatric); G43.909 Migraine, unspecified, not intractable, without status migrainosus; F32.A Depression, unspecified; E55.9 Vitamin D deficiency, unspecified; E03.8 Other specified hypothyroidism; E06.3 Autoimmune thyroiditis; Z79.899 Other long term (current) drug therapy
CPT/HCPCS: 36415; 80053; 82306; 84443; 85025

== ENCOUNTER → 2022-09-29 | Outpatient (CLI) | payer OTHER, SELFPAY ==
[2022-09-29 12:52] LABS: Vitamin B12 334 pg/mL (211-911)
== END | disposition home or self-care (01) ==
LOC: BIMLAB 09:38
PROVIDERS: PCP Internal Medicine; Visit Provider Nurse Practitioner Family
DX: E53.8 Deficiency of other specified B group vitamins (principal)
CPT/HCPCS: 36415; 82607

== ENCOUNTER → 2022-10-13 | Outpatient (CLI) | payer OTHER, SELFPAY ==
--- NOTE | 2022-10-13 16:51 | RAD_ITS ---
STUDY: X-RAY - RIGHT HAND REASON FOR EXAM: Female, 42 years old. PAIN. History of rheumatoid arthritis. TECHNIQUE: 3 view(s) of the hand. COMPARISON: None. FINDINGS: Normal radiocarpal articulation. Normal distal radioulnar joint. Normal visualized carpal bones. Normal carpal articulations Normal carpometacarpal articulation of the thumb. Normal second through fifth carpometacarpal joints. Normal metacarpi. Normal metacarpophalangeal joint of the thumb. Normal interphalangeal joint of the thumb. Normal proximal and distal phalanges of the thumb. Normal metacarpophalangeal joints of the second through fifth fingers. Normal proximal and distal interphalangeal joints of the second through fifth fingers. Normal phalanges of the second through fifth fingers. Soft tissue swelling. RAD/Hand Min 3 Views IMPRESSION: Soft tissue swelling. Electronically Signed: Sukhdeep Manzano MD at 15:18 EDT ,
--- NOTE | 2022-10-13 16:51 | RAD_ITS ---
INDICATION: PAIN EXAMINATION/TECHNIQUE: X-RAY - XR Hips Bilateral with Pelvis when performed; 2 Views COMPARISON: None. FINDINGS: PELVIC BONES: No displaced fracture, destructive or sclerotic lesions. Note that overlapping bowel shadows may however obscure fine detail. Sacroiliac joints are unremarkable. No widening of the pubic symphysis. HIPS: The articular structures are unremarkable. No displaced fracture seen in this frontal view. SOFT TISSUES: No soft tissue swelling or gas. RAD/Hips B/L min 2 views w/ Pelvis IMPRESSION: No evidence of displaced pelvic or hip fracture. Electronically Signed: Sukhdeep Manzano MD at 15:19 EDT ,
--- NOTE | 2022-10-13 16:51 | RAD_ITS ---
STUDY: X-RAY - LEFT HAND REASON FOR EXAM: Female, 42 years old. PAIN. History of rheumatoid arthritis. TECHNIQUE: view(s) of the hand. COMPARISON: None. FINDINGS: Normal radiocarpal articulation. Normal distal radioulnar joint. Normal visualized carpal bones. Normal carpal articulations Normal carpometacarpal articulation of the thumb. Normal second through fifth carpometacarpal joints. Normal metacarpi. Normal metacarpophalangeal joint of the thumb. Normal interphalangeal joint of the thumb. Normal proximal and distal phalanges of the thumb. Normal metacarpophalangeal joints of the second through fifth fingers. Normal proximal and distal interphalangeal joints of the second through fifth fingers. Normal phalanges of the second through fifth fingers. Soft tissue swelling. RAD/Hand Min 3 Views IMPRESSION: Soft tissue swelling. Electronically Signed: Sukhdeep Manzano MD at 15:17 EDT ,
[2022-10-13 18:02] LABS: Absolute Lymphocyte Count 2.23 X10^3/uL (0.83-4.51); Basophil# 0.06 X10^3/uL; Basophil% 0.9 % (0-1); Eosinophil# 0.21 X10^3/uL; Hematocrit 39.7 % (37-47); Hemoglobin 12.7 g/dL (12.0-15.0); Lymphocyte # 2.23 X10^3/ul (0.83-4.51); Mean Corpuscular Hgb 30.5 pg (27.0-32.0); Mean Corpuscular Volume 95.4 fL (81-99); Mean Platelet Vol. 10.2 fl (6.2-12.0); Monocyte# 0.43 X10^3/uL; Monocyte% 6.2 % (0-10); NRBC Flagged by Analyzer 0 % (0-5); Neutrophil # 4.02 X10^3/uL (2.7-7.7); Neutrophil % 57.6 % (47-70); Platelet Count 312 K/mm3 (150-450); RBC Distribution Width CV 12.6 % (11.6-14.6); RBC Distribution Width SD 43.9 fl (35.1-43.9); Red Blood Count 4.16 M/mm3 (4.2-5.4)
[2022-10-13 18:43] LABS: AST(SGOT) 17 U/L (15-37); Alanine Aminotransfer ALT/SGPT 32 U/L (13-56); Albumin, Serum 4.1 g/dL (3.2-5.0); Alkaline Phosphatase 60 U/L (45-117); Bilirubin, Direct 0.14 mg/dL (0.00-0.30); CRP < 2.90 mg/L (0.0-3.0); Creatinine, Serum 0.77 mg/dL (0.55-1.02); EST Glomerular Filtration Rate 88 mL/min (>60); Est Glom Filt Rate - Afr Amer 106 mL/min (>60); Globulin 3.6 g/dL (2.2-4.2); Protein, Total 7.7 g/dL (6.4-8.2); Rheumatoid Factor < 10.0 IU/mL (<15)
[2022-10-13 19:25] LABS: Erythrocyte Sedimentation Rate 24 mm/hr (0-30)
[2022-10-15 12:08] LABS: Complement C3 163 mg/dL (82-167)
[2022-10-15 14:19] LABS: CCP IgG Antibodies 7 units (0-19)
== END | disposition home or self-care (01) ==
LOC: MTLAB 16:50
PROVIDERS: PCP Internal Medicine; Referring Provider Internal Medicine Rheumatology; Visit Provider Internal Medicine Rheumatology
DX: M06.09 Rheumatoid arthritis without rheumatoid factor, multiple sites (principal); M35.00 Sjogren syndrome, unspecified; M25.552 Pain in left hip; M25.551 Pain in right hip; Z79.899 Other long term (current) drug therapy
CPT/HCPCS: 36415; 73130; 73521; 80076; 82565; 85025; 85652; 86140; 86160; 86200; 86431

== ENCOUNTER → 2022-10-31 | Outpatient (CLI) | payer OTHER, SELFPAY ==
--- NOTE | 2022-10-31 07:51 | BI_ITS ---
MAMMOGRAPHY - BILATERAL SCREENING REASON FOR EXAM: Female, 42 years old. Routine annual screening examination. PERTINENT HISTORY: Non-contributory. TECHNIQUE: Digital bilateral breast christopher (3D mammographic acquisition) in the CC and MLO projections. 2-D mediolateral oblique (MLO) and craniocaudad (CC) views of both breasts were obtained. CAD: Full Field Digital Mammography with Computer Added Detection was performed. COMPARISON: None. Baseline examination. FINDINGS: Breast Composition: There are scattered areas of fibroglandular density. There are no dominant masses or suspicious calcifications. Benign-appearing bilateral axillary lymph nodes. No other significant abnormalities are identified. There has been no significant change since the prior study. BI/SCRN MAMM (CAD)W/CHRISTOPHER BILAT IMPRESSION: Stable bilateral screening mammogram. Yearly follow-up mammogram recommended. (A) ASSESSMENT CATEGORY: BIRADS Category 2: Benign. A letter regarding these results will be sent to the patient by the facility within 30 days. Approximately 10% of breast cancers are not detected by mammography. A normal mammogram should not delay biopsy of a clinically suspicious abnormality. [id number] Electronically Signed: Sukhdeep Manzano MD at 8:55 EDT ,
== END | disposition home or self-care (01) ==
LOC: OPBI 07:49
PROVIDERS: PCP Internal Medicine; Visit Provider Nurse Practitioner Women's Health
DX: Z12.31 Encounter for screening mammogram for malignant neoplasm of breast (principal)
CPT/HCPCS: 77063; 77067

== ENCOUNTER → 2022-11-01 | Outpatient (CLI) | payer OTHER, SELFPAY ==
[2022-11-01 13:12] LABS: Vitamin D,25 Hydroxy 37.3 ng/mL
[2022-11-01 13:13] LABS: PTHIN 95.6 pg/mL (18.4-80.1)
[2022-11-01 13:16] LABS: Calcium,Total 10.4 mg/dL (8.5-10.1)
== END | disposition home or self-care (01) ==
LOC: BIMLAB 10:19
PROVIDERS: PCP Internal Medicine; Referring Provider Internal Medicine Endocrinology, Diabetes & Metabolism; Visit Provider Internal Medicine Endocrinology, Diabetes & Metabolism
DX: E55.9 Vitamin D deficiency, unspecified (principal); E03.9 Hypothyroidism, unspecified; E88.81 Metabolic syndrome and other insulin resistance
CPT/HCPCS: 36415; 82306; 82310; 83970; 84443

== ENCOUNTER → 2022-11-08 | Outpatient (CLI) | payer OTHER, SELFPAY ==
--- NOTE | 2022-11-08 13:00 | US_ITS ---
INDICATION: localized parathyroid adenoma EXAMINATION: Ultrasound US Thyroid (eg thyroid, parathyroid, parotid) TECHNIQUE: Leach scale and color doppler imaging was performed of the thyroid gland. COMPARISON: None. FINDINGS: RIGHT THYROID LOBE: 4.7 x 2.2 x 1.8 cm. Homogeneous echotexture with normal vascularity. [No thyroid nodules are present. LEFT THYROID LOBE: 4.8 x 1.8 x 1.6 cm. Homogeneous echotexture with normal vascularity. [No thyroid nodules are present. ISTHMUS: 0.3 cm. No thyroid nodules are present. Lymph node right lateral neck measures 2.3 x 1.3 x 0.7 cm. US/Thyroid IMPRESSION: Negative thyroid ultrasound examination. T RADS category 1 benign. Right cervical lymph node borderline pathologic size. This could be reactive, lymphoma or metastatic disease cannot be excluded. Electronically Signed: Dirk Devine MD, LELAND at 20:01 EDT ,
== END | disposition home or self-care (01) ==
LOC: US 12:59
PROVIDERS: PCP Internal Medicine; Referring Provider Internal Medicine Endocrinology, Diabetes & Metabolism; Visit Provider Internal Medicine Endocrinology, Diabetes & Metabolism
DX: E21.0 Primary hyperparathyroidism (principal)
CPT/HCPCS: 76536

== ENCOUNTER → 2022-11-22 | Outpatient (CLI) | payer OTHER, SELFPAY ==
--- NOTE | 2022-11-22 10:03 | NM_ITS ---
CLINICAL: 42-year-old female with history of clinical hyperparathyroidism. 99m Tc SESTAMIBI DUAL PHASE PARATHYROID SCINTIGRAPHY COMPARISON: None available FINDINGS: Following the intravenous administration of 25.1 mCi of 99m Tc sestamibi, image acquisitions of the anterior neck at 20 minutes and 2.0 hours post radiopharmaceutical provision reveal: 1. Immediate static blood pool acquisitions demonstrate homogeneous radiopharmaceutical concentration defined in the right and left lobes of a U-shaped thyroid gland. 2. Delayed images depict symmetric near complete washout of the radiotracer from the previously identified thyroid bed. There is no evidence of focal retained radiopharmaceutical concentration on the current examination. NM/Parathyroid Scan IMPRESSION: 1. NEGATIVE 99m Tc SESTAMIBI PARATHYROID IMAGING DUAL PHASE EXAMINATION. 2. There is no definitive scintigraphic evidence of parathyroid adenoma on the current evaluation. Electronically Signed: Abad Sinha, at 22:14 EDT ,
== END | disposition home or self-care (01) ==
PROVIDERS: PCP Internal Medicine; Referring Provider Internal Medicine Endocrinology, Diabetes & Metabolism; Visit Provider Internal Medicine Endocrinology, Diabetes & Metabolism
DX: E21.0 Primary hyperparathyroidism (principal)
CPT/HCPCS: 78070; A9500

== ENCOUNTER → 2022-11-23 | Outpatient (CLI) | payer OTHER, SELFPAY ==
--- NOTE | 2022-11-23 | IMM_PTH ---
PATIENT: RAMEZ PAUL LOC: [facility] U#:[id number] AGE/SX: 42/F ROOM: RE11/23/[address]: Dr. Juan R Arredondo MD : 1980 BED: DIS: 11/23/2022 SPEC #: [id number] RECD: 11/25/22 12:55 STATUS: BETH REQ #: [id number] GERMANIA: 11/23/22 00:[address]: Juan R Arredondo DEPT: IMMUNOHISTOCHEMISTRY RECD BY: Cleopatra Guevara ENTERED: 11/25/22 12:58 SP TYPE: IMMUNO OTHR DR: Dr. Wyatt Marcelo MD Tissues: A - Lymph node, NOS Procedures: CD20 (add) CD3 (add) CD45 (add) CD5 (add) CD79A (add) CK8 (add) KI-67 (add) Pankeratin (initial) PHYSICIAN & INSTITUTION [place] [facility] [id number] SPECIMEN INFORMATION: Tissue Source: A ? Right cervical lymph node Clinical Info: Enlarged lymph node Specimen Number: [id number] CPT code: 50120, 44338 x7 METHODOLOGY: Deparaffinized sections of prefer/formalin-fixed tissue or PAP/DQ stained slides are incubated with monoclonal/polyclonal antibodies/oligonucleotide probes. Localization is made via biotin free immunoperoxidase method. Appropriate controls are performed and reacted as expected. Results on target cell population are indicated in the following table: RESULTS: ANTIBODY / CLONE RESULT Block A AE1-3 (AE1/AE3/PCK26) negative CK8 ([id number]) negative CD3 (PS1) positive CD5 (SP10) positive CD20 (L26) negative CD45 (RP2/18) positive CD79a (11E3) positive, a few cells Ki-67 (30-9) positive, very low <1% These tests were developed and their performance characteristics determined by [facility]. They may not have been cleared or approved by the U.S. Food and Drug Administration. The FDA has determined that such clearance or approval is not necessary. The above immunohistochemical/dualISH markers are ordered and reviewed by the Pathologist. INTERPRETATION: A. Right cervical lymph node, biopsy: Lymph node tissue predominantly consistent with small lymphocytes, polytypic in nature. Negative for metastatic carcinoma. See comment. LUZ ELENA:tiago 11/28/2022 Comment. Clinical correlation necessary.
--- NOTE | 2022-11-23 14:30 | FLU_PTH ---
PATIENT: RAMEZ PAUL LOC: [facility] U#:[id number] AGE/SX: 42/F ROOM: RE11/23/[address]: Dr. Juan R Arrdeondo MD : 1980 BED: DIS: 11/23/2022 SPEC #: [id number] RECD: 11/23/22 15:54 STATUS: BETH REYeny #: [id number] GERMANIA: 11/23/22 14:[address]: Juan R Arredondo DEPT: CYTOLOGY RECD BY: Mely Jj ENTERED: 11/24/22 09:35 SP TYPE: Fluid OTHR DR: Dr. Wyatt Marcelo MD Tissues: A - Lymph node, NOS B - Lymph node, NOS Procedures: Special Stain Group II Surgery Specimen Level IV Cytospin Fluid Cytology Other HEADER OPERATION: Fine needle aspiration right lymph node PRE-OP DIAGNOSIS: Enlarged lymph node TISSUE SUBMITTED: A ? Right cervical lymph node fluid, B ? Right cervical lymph node x4 slides DIAGNOSIS CYTOLOGY A. Right cervical lymph node fluid, fine needle aspiration (cytospin and cell block): Consistent with lymph node tissue. Negative for metastatic carcinoma. See comment. B. Right cervical lymph node, fine needle aspiration (smears): Consistent with lymph node tissue. Negative for metastatic carcinoma. See comment. SJ:rg 11/25/2022 COMMENT A. The specimen predominantly consists of small lymphocytes. Cell block is paucicellular. A limited panel of immunohistochemistry ([id number]) performed on cell block shows polytypic lymphocytes. B. The smears are cellular and consists of predominantly small lymphocytes. If there is high suspicion of lymphoma, incisional or excisional biopsy of the lesion including flow cytometry study is suggested, if clinically indicated. CYTOLOGY STUDY Slides are reviewed. CYTOLOGY GROSS A - Received is 40 ml of red cloudy fluid labeled with the patient's name and and designated per the requisition as right cervical lymph node. Submitted for cytology preparation including cell block. B - Received are four smears labeled with the patient's name and designated per the requisition as right cervical lymph node. Submitted for staining. / tiago 11/24/2022 TC:5 CPT: 85610 x2, 23193
== END | disposition home or self-care (01) ==
LOC: LABSPEC 15:58
PROVIDERS: PCP Internal Medicine; Referring Provider Surgery; Visit Provider Surgery
DX: R59.9 Enlarged lymph nodes, unspecified (principal)
CPT/HCPCS: 88108; 88161; 88305; 88313; 88341; 88342

== ENCOUNTER → 2022-12-02 | Outpatient (CLI) | payer OTHER, SELFPAY ==
[2022-12-02 17:50] LABS: Anion Gap 5 (5-15); BUN 14 mg/dL (7-18); BUN/Creat Ratio 18.1 RATIO (10-20); Calcium,Total 10.1 mg/dL (8.5-10.1); Chloride 106 mmol/L (98-107); Creatinine, Serum 0.77 mg/dL (0.55-1.02); EST Glomerular Filtration Rate 88 mL/min (>60); Est Glom Filt Rate - Afr Amer 106 mL/min (>60); Glucose 99 mg/dL (74-106); Potassium 4.2 mmol/L (3.5-5.1); Sodium Level 139 mmol/L (136-145)
== END | disposition home or self-care (01) ==
LOC: LAB 16:37
PROVIDERS: PCP Internal Medicine; Referring Provider Nurse Practitioner Family; Visit Provider Nurse Practitioner Family
DX: I10 Essential (primary) hypertension (principal)
CPT/HCPCS: 36415; 80048

== ENCOUNTER → 2022-12-14 | Outpatient (CLI) | payer OTHER, SELFPAY ==
[2022-12-14 15:51] LABS: Erythrocyte Sedimentation Rate 20 mm/hr (0-30)
[2022-12-14 15:54] LABS: Absolute Lymphocyte Count 1.23 X10^3/uL (0.83-4.51); Basophil# 0.06 X10^3/uL; Basophil% 0.6 % (0-1); Eosinophil# 0.07 X10^3/uL; Eosinophils% 0.7 % (0-5); Hematocrit 38.5 % (37-47); Hemoglobin 12.4 g/dL (12.0-15.0); Lymphocyte # 1.23 X10^3/ul (0.83-4.51); Lymphocyte % 12.7 % (19-41); Mean Corp Hgb Conc 32.2 g/dL (32-36); Mean Corpuscular Hgb 31.2 pg (27.0-32.0); Mean Corpuscular Volume 96.7 fL (81-99); Mean Platelet Vol. 9.4 fl (6.2-12.0); Monocyte# 0.31 X10^3/uL; Monocyte% 3.2 % (0-10); NRBC Flagged by Analyzer 0 % (0-5); Neutrophil % 82.4 % (47-70); Platelet Count 302 K/mm3 (150-450); RBC Distribution Width SD 49.9 fl (35.1-43.9); Red Blood Count 3.98 M/mm3 (4.2-5.4); White Blood Count 9.7 K/mm3 (4.4-11.0)
[2022-12-14 16:15] LABS: AST(SGOT) 22 U/L (15-37); Alanine Aminotransfer ALT/SGPT 28 U/L (13-56); Albumin, Serum 3.7 g/dL (3.2-5.0); Alkaline Phosphatase 59 U/L (45-117); Bilirubin, Direct 0.09 mg/dL (0.00-0.30); CRP 8.54 mg/L (0.0-3.0); Creatinine, Serum 0.77 mg/dL (0.55-1.02); EST Glomerular Filtration Rate 88 mL/min (>60); Est Glom Filt Rate - Afr Amer 106 mL/min (>60); Globulin 3.6 g/dL (2.2-4.2); Protein, Total 7.3 g/dL (6.4-8.2)
== END | disposition home or self-care (01) ==
PROVIDERS: PCP Internal Medicine; Visit Provider Internal Medicine Rheumatology
DX: M06.09 Rheumatoid arthritis without rheumatoid factor, multiple sites (principal); Z79.899 Other long term (current) drug therapy
CPT/HCPCS: 36415; 80076; 82565; 85025; 85652; 86140

== ENCOUNTER → 2023-01-03 | Outpatient (CLI) | payer OTHER, SELFPAY ==
[2023-01-03 17:10] LABS: Erythrocyte Sedimentation Rate 10 mm/hr (0-30)
[2023-01-03 17:35] LABS: CRP 6.98 mg/L (0.0-3.0)
== END | disposition home or self-care (01) ==
LOC: BIMLAB 16:00
PROVIDERS: PCP Internal Medicine; Visit Provider Internal Medicine Rheumatology
DX: M06.09 Rheumatoid arthritis without rheumatoid factor, multiple sites (principal)
CPT/HCPCS: 36415; 85652; 86140

== ENCOUNTER → 2023-01-09 | Outpatient (CLI) | payer OTHER, SELFPAY ==
[2023-01-09 12:26] LABS: PTHIN 92.3 pg/mL (18.4-80.1)
[2023-01-09 12:33] LABS: AST(SGOT) 13 U/L (15-37); Alanine Aminotransfer ALT/SGPT 23 U/L (13-56); Albumin, Serum 3.9 g/dL (3.2-5.0); Alkaline Phosphatase 70 U/L (45-117); Anion Gap 7 (5-15); BUN 15 mg/dL (7-18); BUN/Creat Ratio 19.8 RATIO (10-20); Calcium,Total 10.2 mg/dL (8.5-10.1); Chloride 106 mmol/L (98-107); Creatinine, Serum 0.76 mg/dL (0.55-1.02); EST Glomerular Filtration Rate 90 mL/min (>60); Est Glom Filt Rate - Afr Amer 109 mL/min (>60); Follicle Stimulating Hormone 19.8 mIU/mL; Globulin 4.1 g/dL (2.2-4.2); Glucose 90 mg/dL (74-106); Potassium 4.1 mmol/L (3.5-5.1); Sodium Level 138 mmol/L (136-145); T4 Free Direct 0.97 ng/dL (0.76-1.46); Thyroid Stim Hormone (TSH) 0.85 uIU/mL (0.358-3.74)
== END | disposition home or self-care (01) ==
LOC: MTLAB 09:41
PROVIDERS: PCP Internal Medicine; Referring Provider Internal Medicine Endocrinology, Diabetes & Metabolism; Visit Provider Internal Medicine Endocrinology, Diabetes & Metabolism
DX: E83.52 Hypercalcemia (principal); E03.8 Other specified hypothyroidism; E06.3 Autoimmune thyroiditis; R23.2 Flushing
CPT/HCPCS: 36415; 80053; 82306; 82670; 83001; 83002; 83970; 84439; 84443

== ENCOUNTER → 2023-02-03 | Outpatient (CLI) | payer OTHER, SELFPAY ==
--- NOTE | 2023-02-03 13:02 | RAD_ITS ---
INDICATION: PAIN EXAMINATION/TECHNIQUE: X-RAY - LEFT XR Knee 1 or 2 Views 2 VIEWS COMPARISON: FINDINGS: SOFT TISSUES: No soft tissue swelling or gas. No radiopaque foreign body. BONES/JOINTS: No acute fracture or subluxation.. Normal alignment. There is mild tricompartmental osteophyte formation. There is moderate patellofemoral and mild medial joint space narrowing. There is no evidence for bone destruction. RAD/Knee 1 or 2 Views IMPRESSION: Degenerative changes. Electronically Signed: Lucio Lemon, at 15:50 EDT ,
--- NOTE | 2023-02-03 13:05 | RAD_ITS ---
INDICATION: PAIN EXAMINATION/TECHNIQUE: X-RAY - XR Spine Lumbar Min 4 Views COMPARISON: FINDINGS: VERTEBRAE: Preserved vertebral body height. No fracture. There is grade 1 anterolisthesis of L3 on L4.. Preservation of the normal lumbar lordosis. No significant facet arthropathy. DISCS: Disc spaces are maintained. INCLUDED ABDOMEN: Included bowel gas pattern is non-obstructive. RAD/L/S Spine Min 4 Views IMPRESSION: Grade 1 anterolisthesis of L3 on L4. Otherwise unremarkable x-rays of the lumbar spine. Electronically Signed: Lucio Lemon, at 15:49 EDT ,
== END | disposition home or self-care (01) ==
LOC: MTRAD 13:00
PROVIDERS: PCP Internal Medicine; Referring Provider Internal Medicine Rheumatology; Visit Provider Internal Medicine Rheumatology
DX: M25.562 Pain in left knee (principal); M54.50 Low back pain, unspecified
CPT/HCPCS: 72110; 73560

== ENCOUNTER → 2023-02-15 | Outpatient (CLI) | payer OTHER, SELFPAY ==
--- NOTE | 2023-02-15 09:21 | US_ITS ---
EXAM: US Head/Neck Soft Tissue HISTORY: Known right-sided lymph node COMPARISON: 11/08/2022. Technique: Sonographic evaluation of a previously identified jugular chain lymph node in the right neck. FINDINGS: Sonographic evaluation of the lymph node previously identified on the study of 11/08/2022. The previous examination the lymph node measured 2.3 x 1.3 x 0.7 cm. On current study it is essentially unchanged measuring 2.28 x 1.39 x 0.6 cm. Because it is less than 1 cm short axis dimension, it is considered a physiologic lymph node. No specific further follow-up is needed unless it should change in presentation. There are other scattered lymph nodes in the same region all measuring less than 1 cm in short axis dimension. US/Head/Neck Soft Tissue IMPRESSION: Persistent physiologic subcentimeter in short axis dimension right-sided lymph nodes. Largest shows no change since the previous study Electronically Signed: Nash Lancaster MD at 11:39 EDT ,
== END | disposition home or self-care (01) ==
LOC: US 09:19
PROVIDERS: PCP Internal Medicine; Referring Provider Surgery; Visit Provider Surgery
DX: R59.9 Enlarged lymph nodes, unspecified (principal)
CPT/HCPCS: 76536

== ENCOUNTER → 2023-03-07 | Outpatient (CLI) | payer OTHER, SELFPAY ==
[2023-03-07 15:25] LABS: Absolute Lymphocyte Count 2.41 X10^3/uL (0.83-4.51); Absolute Neutrophil Count 3.7 X10^3/uL (2.0-7.7); Basophil# 0.06 X10^3/uL; Basophil% 0.9 % (0-1); Eosinophil# 0.22 X10^3/uL; Eosinophils% 3.2 % (0-5); Hematocrit 38.7 % (37-47); Hemoglobin 12.5 g/dL (12.0-15.0); Lymphocyte # 2.41 X10^3/ul (0.83-4.51); Lymphocyte % 35.4 % (19-41); Mean Corp Hgb Conc 32.3 g/dL (32-36); Mean Corpuscular Hgb 31.8 pg (27.0-32.0); Mean Corpuscular Volume 98.5 fL (81-99); Mean Platelet Vol. 9.3 fl (6.2-12.0); Monocyte# 0.37 X10^3/uL; Monocyte% 5.4 % (0-10); NRBC Flagged by Analyzer 0 % (0-5); Neutrophil # 3.74 X10^3/uL (2.7-7.7); Platelet Count 326 K/mm3 (150-450); RBC Distribution Width SD 46.3 fl (35.1-43.9); Red Blood Count 3.93 M/mm3 (4.2-5.4); White Blood Count 6.8 K/mm3 (4.4-11.0)
[2023-03-07 15:40] LABS: Erythrocyte Sedimentation Rate 19 mm/hr (0-30)
[2023-03-07 17:22] LABS: AST(SGOT) 18 U/L (15-37); Alanine Aminotransfer ALT/SGPT 32 U/L (13-56); Albumin, Serum 3.9 g/dL (3.2-5.0); Alkaline Phosphatase 69 U/L (45-117); Bilirubin, Direct 0.09 mg/dL (0.00-0.30); Creatinine, Serum 0.91 mg/dL (0.55-1.02); EST Glomerular Filtration Rate 73 mL/min (>60); Est Glom Filt Rate - Afr Amer 88 mL/min (>60); Globulin 3.8 g/dL (2.2-4.2); Protein, Total 7.7 g/dL (6.4-8.2)
== END | disposition home or self-care (01) ==
LOC: BIMLAB 14:04
PROVIDERS: PCP Internal Medicine; Visit Provider Internal Medicine Rheumatology
DX: M06.09 Rheumatoid arthritis without rheumatoid factor, multiple sites (principal)
CPT/HCPCS: 36415; 80076; 82565; 85025; 85652; 86140

== ENCOUNTER → 2023-03-22 | Outpatient (CLI) | payer OTHER, SELFPAY ==
[2023-03-22 12:47] LABS: CRP 9.19 mg/L (0.0-3.0)
[2023-03-22 13:42] LABS: Erythrocyte Sedimentation Rate 14 mm/hr (0-30)
== END | disposition home or self-care (01) ==
LOC: BIMLAB 09:35
PROVIDERS: PCP Internal Medicine; Visit Provider Internal Medicine Rheumatology
DX: M06.09 Rheumatoid arthritis without rheumatoid factor, multiple sites (principal)
CPT/HCPCS: 36415; 85652; 86140

== ENCOUNTER → 2023-04-26 | Outpatient (CLI) | payer OTHER, SELFPAY ==
[2023-04-26 12:25] LABS: Absolute Lymphocyte Count 1.68 X10^3/uL (0.83-4.51); Absolute Neutrophil Count 4.5 X10^3/uL (2.0-7.7); Basophil# 0.06 X10^3/uL; Basophil% 0.9 % (0-1); Eosinophils% 2.9 % (0-5); Hematocrit 39.9 % (37-47); Hemoglobin 12.6 g/dL (12.0-15.0); Lymphocyte # 1.68 X10^3/ul (0.83-4.51); Lymphocyte % 24.4 % (19-41); Mean Corp Hgb Conc 31.6 g/dL (32-36); Mean Corpuscular Hgb 31.2 pg (27.0-32.0); Mean Corpuscular Volume 98.8 fL (81-99); Mean Platelet Vol. 10.7 fl (6.2-12.0); Monocyte# 0.47 X10^3/uL; Monocyte% 6.8 % (0-10); NRBC Flagged by Analyzer 0 % (0-5); Neutrophil # 4.47 X10^3/uL (2.7-7.7); Neutrophil % 64.9 % (47-70); Platelet Count 279 K/mm3 (150-450); RBC Distribution Width CV 12.5 % (11.6-14.6); RBC Distribution Width SD 45.2 fl (35.1-43.9); Red Blood Count 4.04 M/mm3 (4.2-5.4); White Blood Count 6.9 K/mm3 (4.4-11.0)
[2023-04-26 12:51] LABS: Anion Gap 5 (5-15); BUN 11 mg/dL (7-18); BUN/Creat Ratio 12.5 RATIO (10-20); Calcium,Total 10.3 mg/dL (8.5-10.1); Chloride 106 mmol/L (98-107); Creatinine, Serum 0.88 mg/dL (0.55-1.02); EST Glomerular Filtration Rate 75 mL/min (>60); Est Glom Filt Rate - Afr Amer 91 mL/min (>60); Glucose 104 mg/dL (74-106); Potassium 4.1 mmol/L (3.5-5.1); Sodium Level 136 mmol/L (136-145); Troponin-I HS 4 pg/mL (3.0-54.0)
== END | disposition home or self-care (01) ==
LOC: BIMLAB 11:03
PROVIDERS: PCP Internal Medicine; Visit Provider Internal Medicine
DX: R07.9 Chest pain, unspecified (principal)
CPT/HCPCS: 36415; 80048; 84484; 85025

== ENCOUNTER 2023-06-11 07:44 | Emergency (ER) | payer OTHER, SELFPAY ==
[2023-06-11 07:45] VITALS: BP 105/82; PULSE 93; RESP 16; TEMP 36; O2SAT 98; BMI 56.2
--- NOTE | 2023-06-11 08:08 | EDS_ITS ---
HPI HPI - GI History of Present Illness Chief Complaint: Nausea/Vomiting Narrative Narrative: -year-old female presenting with nausea, vomiting, diarrhea. This started last evening at about 1 AM. Nausea vomiting started first and she had episode of diarrhea this morning. No fevers, chills, body aches. She states that her children had something similar on Monday which lasted 2 days and resolved. She states that he gave him Pepto-Bismol and they initially vomited this up but they recovered. No cough, shortness of breath, fevers, chills. Patient feels like she has come down with above. She denies respiratory complaints. She denies dysuria, hematuria. Denies vaginal complaints. Denies constipation. She feels like she has diffuse crampy abdominal pain but feels like it is most consistent with a GI bug. [facility] Medical History Alcohol use Anemia Anxiety Anxiety and depression Arthritis Autoimmune disease B12 deficiency Back pain BiPAP (biphasic positive airway pressure) dependence Borderline type 2 diabetes mellitus Cat bite Constipation COVID-19 Depression Gastric reflux GERD (gastroesophageal reflux disease) History of echocardiogram History of edema History of hiatal hernia History of irregular heartbeat History of steroid therapy Hypercalcemia Hypertension IBS (irritable bowel syndrome) Insulin resistance Leg cramps Migraine headache Non-smoker Palpitations Prediabetes Preventative health care Primary hyperparathyroidism Restless legs Seasonal allergies Shortness of breath on exertion Sjogren's disease Sleep apnea Sleep concern Stomach ulcer Thyroid disease Urge incontinence Vitamin deficiency Home Medications ferrous sulfate 325 mg (65 mg iron) tablet (FeroSul) 325 mg PO DAILY 12/16/19 [History Last Taken Unknown] methotrexate sodium 25 mg/mL injection solution 17.5 mg subcut QWEEK 12/31/20 [History Last Taken Unknown] folic acid 1 mg tablet 2 mg PO DAILY 05/06/21 [History Last Taken Unknown] etanercept 50 mg/mL (1 mL) subcutaneous syringe (Enbrel) 50 mg subcut QWEEK 08/15/22 [History Last Taken Unknown] levothyroxine 150 mcg tablet 150 mcg PO DAILY #90 tabs 08/15/22 [Rx Last Taken Unknown] duloxetine 60 mg capsule,delayed release (Cymbalta) 60 mg PO QDAY DEPRESSION #90 caps 09/01/22 [Rx Last Taken Unknown] ubrogepant 100 mg tablet (Ubrelvy) 100 mg PO ONCE PRN MIGRAINES #48 tabs 09/20/22 [Rx Last Taken Unknown] alprazolam 0.25 mg tablet (Xanax) 0.25 mg PO DAILY PRN PRN Anxiety #20 tabs 09/29/22 [Rx Last Taken Unknown] losartan 100 mg tablet 100 mg PO DAILY #90 tabs 03/27/23 [Rx Last Taken Unknown] cyclobenzaprine 5 mg tablet 5 mg PO BID PRN pain #10 tabs 04/26/23 [Rx Last Taken Unknown] prednisone 10 mg tablet 10 mg PO DAILY PRN Arthritis #100 tabs 06/05/23 [Rx Last Taken Unknown] ondansetron 4 mg disintegrating tablet 4 mg PO Q8H PRN PRN Nausea #20 tabs 06/11/23 [Rx Last Taken Unknown] Allergy/AdvReac Type Severity Reaction Status Date / Time sumatriptan Allergy Severe headache Verified 05/10/23 16:29 penicillin G Allergy Mild Other Verified 05/10/23 16:29 latex Allergy Rash Verified 05/10/23 16:29 escitalopram [From Lexapro] AdvReac Other Verified 05/10/23 16:29 Family History Grandmother Heart disease Arthritis Diabetes Hypertension Thyroid disorder Stomach ulcer Mother Asthma Arthritis Hypertension Aunt Arthritis Heart disease Autoimmune disease Grandfather Cancer lung Father Hypertension Uncle Heart disease Other Anemia Anesthesia complication Anxiety Parkinson disease Skin cancer Surgical History History of total vaginal hysterectomy (TVH) Hx of hysterectomy lesion removal from lip Social History Smoking Status: Never smoker alcohol intake: current alcohol intake frequency: holidays/special occasions only details: Social substance use type: does not use caffeine: Yes what type of physical activity do you participate in: none seatbelt use: always do you feel safe at home: Yes 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 [employer] ROS ROS ED Constitutional Constitutional ED: Denies chills, fever(s) or sweats Eyes Eyes: Denies blurry vision or change in vision ENT ENT ED: Denies ear pain or sore throat Cardiovascular Cardiovascular: Denies chest pain, palpitations or racing heartbeat Respiratory/Chest Respiratory/Chest: Denies cough, dyspnea or sputum Gastrointestinal Gastrointestinal: Reports abdominal pain, diarrhea, nausea and vomiting; Denies constipation Genitourinary Genitourinary ED: Denies dysuria, hematuria or urinary frequency Musculoskeletal Musculoskeletal: Denies arthralgias, myalgias or neck pain Integumentary Denies abscess, Abrasions or rash Neurologic Neurologic: Denies headache(s), paresthesias or weakness Psychiatric Psychiatric: Denies anxiety, depression, suicidal ideation or suicidal thoughts Endocrine Endocrinology: Denies polydipsia or polyuria EXAM Physical Exam Const Vital Signs: 06/11/23 07:45 06/11/23 10:08 06/11/23 10:46 Temperature 96.8 F L Temperature Source Temporal Pulse Rate 93 80 80 Respiratory Rate 16 18 18 Blood Pressure 105/82 H 139/79 H 139/79 H Blood Pressure Mean 89 99 99 Pulse Ox 98 99 99 Oxygen Delivery Method Room Air Room Air Positive well nourished General Appearance ED: NAD HEENT Reports moist mucous membranes normocephalic Eyes PERRL Resp normal respiratory effort Effort and Inspection: Negative for respiratory distress Cardio regular rate and regular rhythm GI non-tender, non-distended and no masses Neuro CN's II-XII intact bilaterally, moves all extremities and no sensory deficits noted Sensorium / Orientation: alert, oriented to person, oriented to place and oriented to time Motor Exam: strength 5/5 throughout Psych mental status grossly normal Skin no wounds MDM MDM MDM Narrative Medical decision making narrative: Presenting with nausea, vomiting and diarrhea. She states her children had something similar. This is most likely something viral. I offered patient oral Zofran but she feels she may need some IV fluids. IV was established. Patient given for an 4 mg IV as well as a liter of normal saline. We will obtain a CBC/BMP to assess white blood cell count, hemoglobin, platelets, renal function, electrolytes. Offered viral testing however the patient does not want this. Patient is treated symptomatically. We did attempt to start an IV however after multiple attempts this was discontinued. Patient's lab work CBC and BMP were unremarkable. Patient feeling better after Zofran. She was able to pass a p.o. challenge. We will give her oral Zofran for home. I offered a work note but she declines. Patient stable for discharge. Impression: 1. Viral gastroenteritis Lab Data Attestation: I reviewed the patient's lab results. Labs: Laboratory Results - last 24 hr 06/11/23 08:30 WBC 6.0 RBC 4.23 Hgb 13.1 Hct 40.4 MCV 95.5 MCH 31.0 MCHC 32.4 RDW Std Deviation 46.3 H RDW Coeff of Fito 13.2 Plt Count 253 MPV 9.7 Immature Gran % (Auto) 0.300 Neut % (Auto) 83.2 H Lymph % (Auto) 9.1 L Shannon % (Auto) 6.1 Eos % (Auto) 1.0 Baso % (Auto) 0.3 Absolute Neuts (auto) 5.0 Absolute Lymphs (auto) 0.54 L Nucleated RBC % 0 Differential Comment SCANNED Sodium 137 Potassium 4.1 Chloride 104 Carbon Dioxide 27.0 Anion Gap 6 BUN 21 H Creatinine 0.91 Estim Creat Clear Calc 82.90 Est GFR (MDRD) Af Amer 88 Est GFR (MDRD) Non-Af 73 BUN/Creatinine Ratio 23.1 H Glucose 105 Calcium 9.2 Discharge Plan Triage Chief Complaint: Nausea/Vomiting ED Provider: Kane Fisher Dx/Rx/DC Orders Instructions: ED Gastroenteritis, Viral (Adult) Prescriptions: New ondansetron 4 mg tablet,disintegrating 4 mg PO Q8H PRN PRN (Reason: Nausea) Qty: 20 0RF No Action ferrous sulfate [FeroSul] 325 mg (65 mg iron) tablet 325 mg PO DAILY methotrexate sodium 25 mg/mL solution 17.5 mg SC QWEEK Enbrel 50 mg/mL (1 mL) syringe 50 mg subcut QWEEK levothyroxine 150 mcg tablet 150 mcg PO DAILY Qty: 90 3RF alprazolam [Xanax] 0.25 mg tablet 0.25 mg PO DAILY PRN PRN (Reason: Anxiety) Qty: 20 0RF folic acid 1 mg Tablet 2 mg PO DAILY duloxetine [Cymbalta] 60 mg capsule,delayed release(DR/EC) 60 mg PO QDAY Qty: 90 3RF Ubrelvy 100 mg tablet 100 mg PO ONCE PRN (Reason: MIGRAINES) Qty: 48 2RF Rx Instructions: as a single dose; may repeat once in >=2 hours after first dose if needed losartan 100 mg tablet 100 mg PO DAILY Qty: 90 3RF cyclobenzaprine 5 mg tablet 5 mg PO BID PRN (Reason: pain) Qty: 10 0RF prednisone 10 mg tablet 10 mg PO DAILY PRN (Reason: Arthritis) Qty: 100 2RF Rx Instructions: Take 4 tablets for 3 days; Take 3 tablets for 3 days; Take 2 tablets for 3 days; Take 1 tablet for 3 days Take with food or milk Primary Care Provider: Wyatt Marcelo Referrals: Wyatt Marcelo MD [Primary Care Provider] - Disposition Disposition: Home, Self Care
--- NOTE | 2023-06-11 08:38 | ED.RN ---
IV ACCESS ATTEMPTED PER 4 RNS. THIS RN ABLE TO OBTAIN BLOOD, DR ESTRELLA
[2023-06-11 08:55] LABS: Absolute Lymphocyte Count 0.54 X10^3/uL (0.83-4.51); Basophil# 0.02 X10^3/uL; Basophil% 0.3 % (0-1); Eosinophil# 0.06 X10^3/uL; Hematocrit 40.4 % (37-47); Hemoglobin 13.1 g/dL (12.0-15.0); Lymphocyte # 0.54 X10^3/ul (0.83-4.51); Lymphocyte % 9.1 % (19-41); Mean Corp Hgb Conc 32.4 g/dL (32-36); Mean Corpuscular Volume 95.5 fL (81-99); Mean Platelet Vol. 9.7 fl (6.2-12.0); Monocyte# 0.36 X10^3/uL; Monocyte% 6.1 % (0-10); NRBC Flagged by Analyzer 0 % (0-5); Neutrophil # 4.95 X10^3/uL (2.7-7.7); Neutrophil % 83.2 % (47-70); POSITIVE COUNT YES; POSITIVE DIFFERENTIAL YES; Platelet Count 253 K/mm3 (150-450); RBC Distribution Width CV 13.2 % (11.6-14.6); RBC Distribution Width SD 46.3 fl (35.1-43.9); Red Blood Count 4.23 M/mm3 (4.2-5.4)
[2023-06-11] MEDS: Ondansetron ODT 4 MG Tablet PO (08:56)
[2023-06-11 09:07] LABS: Anion Gap 6 (5-15); BUN 21 mg/dL (7-18); BUN/Creat Ratio 23.1 RATIO (10-20); Calcium,Total 9.2 mg/dL (8.5-10.1); Chloride 104 mmol/L (98-107); Creatinine, Serum 0.91 mg/dL (0.55-1.02); EST Glomerular Filtration Rate 73 mL/min (>60); Est Glom Filt Rate - Afr Amer 88 mL/min (>60); Glucose 105 mg/dL (74-106); Potassium 4.1 mmol/L (3.5-5.1); Sodium Level 137 mmol/L (136-145)
[2023-06-11 09:13] LABS: Differential Indicated SCAN CRITERIA MET
[2023-06-11 09:14] LABS: Differential Comment SCANNED
[2023-06-11 10:08] VITALS: BP 139/79; PULSE 80; RESP 18; O2SAT 99
[2023-06-11] MEDS: Famotidine 20 MG Tablet PO (10:27)
[2023-06-11 10:46] VITALS: BP 139/79; PULSE 80; RESP 18; O2SAT 99
== END 2023-06-11 10:57 | disposition home or self-care (01) ==
PROVIDERS: Emergency Provider Student in an Organized Health Care Education/Training Program; PCP Internal Medicine; Visit Provider Student in an Organized Health Care Education/Training Program
DX: A08.4 Viral intestinal infection, unspecified (principal); Z86.16 Personal history of COVID-19
CPT/HCPCS: 80048; 85025; 99283; J7030; A4216; J2405

== ENCOUNTER → 2023-06-16 | Outpatient (CLI) | payer OTHER, SELFPAY ==
[2023-06-16 17:07] LABS: Vitamin D,25 Hydroxy 40.8 ng/mL
[2023-06-16 17:08] LABS: Absolute Lymphocyte Count 1.93 X10^3/uL (0.83-4.51); Absolute Neutrophil Count 2.9 X10^3/uL (2.0-7.7); Basophil# 0.03 X10^3/uL; Basophil% 0.5 % (0-1); Eosinophil# 0.12 X10^3/uL; Eosinophils% 2.2 % (0-5); Hematocrit 37.6 % (37-47); Hemoglobin 12.1 g/dL (12.0-15.0); Lymphocyte # 1.93 X10^3/ul (0.83-4.51); Lymphocyte % 34.6 % (19-41); Mean Corp Hgb Conc 32.2 g/dL (32-36); Mean Corpuscular Hgb 30.9 pg (27.0-32.0); Mean Corpuscular Volume 96.2 fL (81-99); Mean Platelet Vol. 9.3 fl (6.2-12.0); Monocyte# 0.56 X10^3/uL; Monocyte% 10.1 % (0-10); NRBC Flagged by Analyzer 0 % (0-5); Neutrophil # 2.91 X10^3/uL (2.7-7.7); Neutrophil % 52.2 % (47-70); Platelet Count 334 K/mm3 (150-450); RBC Distribution Width CV 13.2 % (11.6-14.6); RBC Distribution Width SD 46.5 fl (35.1-43.9); Red Blood Count 3.91 M/mm3 (4.2-5.4); White Blood Count 5.6 K/mm3 (4.4-11.0)
[2023-06-16 17:14] LABS: Hemoglobin A1c 5.8 % (3.8-5.6)
[2023-06-16 17:16] LABS: ALB/GLOB Ratio 1.1 RATIO (0.9-2.4); AST(SGOT) 19 U/L (15-37); Alanine Aminotransfer ALT/SGPT 33 U/L (13-56); Albumin, Serum 3.7 g/dL (3.2-5.0); Alkaline Phosphatase 54 U/L (45-117); Anion Gap 4 (5-15); BUN 10 mg/dL (7-18); BUN/Creat Ratio 13.2 RATIO (10-20); Bilirubin, Direct 0.08 mg/dL (0.00-0.30); Chloride 105 mmol/L (98-107); Creatinine, Serum 0.76 mg/dL (0.55-1.02); EST Glomerular Filtration Rate 89 mL/min (>60); Est Glom Filt Rate - Afr Amer 108 mL/min (>60); Globulin 3.5 g/dL (2.2-4.2); Glucose 80 mg/dL (74-106); Protein, Total 7.2 g/dL (6.4-8.2); Sodium Level 136 mmol/L (136-145); Thyroid Stim Hormone (TSH) 1.93 uIU/mL (0.358-3.74)
[2023-06-19 08:34] LABS: PTHIN 113.6 pg/mL (18.4-80.1)
== END | disposition home or self-care (01) ==
LOC: BIMLAB 14:19
PROVIDERS: PCP Internal Medicine; Referring Provider Internal Medicine Endocrinology, Diabetes & Metabolism; Visit Provider Internal Medicine Endocrinology, Diabetes & Metabolism
DX: E21.0 Primary hyperparathyroidism (principal); E55.9 Vitamin D deficiency, unspecified; E03.8 Other specified hypothyroidism; E06.3 Autoimmune thyroiditis; I10 Essential (primary) hypertension; Z79.899 Other long term (current) drug therapy
CPT/HCPCS: 36415; 80053; 82248; 82306; 83036; 83970; 84443; 85025

== ENCOUNTER → 2023-08-17 | Outpatient (CLI) | payer OTHER, SELFPAY ==
[2023-08-17 16:46] LABS: Absolute Lymphocyte Count 3.56 X10^3/uL (0.83-4.51); Absolute Neutrophil Count 6.4 X10^3/uL (2.0-7.7); Basophil# 0.08 X10^3/uL; Basophil% 0.7 % (0-1); Eosinophil# 0.14 X10^3/uL; Eosinophils% 1.3 % (0-5); Hematocrit 36.5 % (37-47); Hemoglobin 11.5 g/dL (12.0-15.0); Lymphocyte # 3.56 X10^3/ul (0.83-4.51); Lymphocyte % 32.5 % (19-41); Mean Corp Hgb Conc 31.5 g/dL (32-36); Mean Corpuscular Hgb 30.7 pg (27.0-32.0); Mean Corpuscular Volume 97.3 fL (81-99); Mean Platelet Vol. 8.7 fl (6.2-12.0); Monocyte# 0.75 X10^3/uL; Monocyte% 6.8 % (0-10); NRBC Flagged by Analyzer 0 % (0-5); Neutrophil # 6.39 X10^3/uL (2.7-7.7); Neutrophil % 58.2 % (47-70); Platelet Count 306 K/mm3 (150-450); RBC Distribution Width CV 13.1 % (11.6-14.6); RBC Distribution Width SD 46.6 fl (35.1-43.9); Red Blood Count 3.75 M/mm3 (4.2-5.4)
[2023-08-17 17:11] LABS: Erythrocyte Sedimentation Rate 11 mm/hr (0-30)
[2023-08-17 17:26] LABS: AST(SGOT) 17 U/L (15-37); Alanine Aminotransfer ALT/SGPT 46 U/L (13-56); Albumin, Serum 3.6 g/dL (3.2-5.0); Alkaline Phosphatase 73 U/L (45-117); Bilirubin, Direct 0.08 mg/dL (0.00-0.30); Creatinine, Serum 0.88 mg/dL (0.55-1.02); EST Glomerular Filtration Rate 76 mL/min (>60); Est Glom Filt Rate - Afr Amer 91 mL/min (>60); Globulin 3.8 g/dL (2.2-4.2); Protein, Total 7.4 g/dL (6.4-8.2)
--- OUTSIDE RECORDS SUMMARY | 2023-08-17 19:32 | XMS RPT_ITS | CCD ---
Author Name Unknown Address [address] [place] [address] Organization [facility] Care Team Providers Care Pbx Mechanic Name Role Phone TALITA ALVAREZOPHER R Unavailable Unavailabl e ANTONIO, CHRISTOPHER R Unavailable Unavailabl e NO REFERRING Unavailable Unavailable ANTONIO, TALITAOPHER R Unavailable Unavailabl e ANTONIO, CHRISTOPHER R Unavailable Unavailabl e NO REFERRING DR Unavailable Unavailable ANTONIO, TALITAOPHER R Unavailable Unavailabl e NO REFERRING Unavailable Unavailable SLAVA BEYER Unavailable Unavailable SLAVA BEYER Unavailable Unavailable NO REFERRING Unavailable Unavailable SLAVA BEYER Unavailable Unavailable SLAVA BEYER Unavailable Unavailable IMCA Unavailable Unavailable IMCA Unavailable Unavailable [facility] Unavailable Unavailable IMCA Unavailable Unavailable Allergies Allergy Classification Reported Allergen(s) Allergy Type Date of Onset Reaction(s) Facility (1 source) escitalopram; Translations: [ESCITALOPRAM] Drug Allergy [facility] Repository (1 source) penicillin; Translations: [PENICILLIN] Drug Allergy [facility] Rep[facility] (1 source) Penicillins; Translations: [PENICILLINS] Propensity to adverse reactions (disorder) [facility] Rep[facility] Problems Active Problems Problem Classification Problem Date Documented Da te Episodic/Chronic Anxiety disorders (1 source) Anxiety disorder, unspecified; Translations: [ANXIETY DISORDER UNSPECI] Onset: 02-06-2017 Chronic Esophageal disorders (3 sources) Gastro-esophageal reflux disease without esophagitis; Translations: [GERD WITHOUT ESOPHAGITIS] Onset: 02-06-2017 Chronic Gastritis and duodenitis (1 source) Unspecified chronic gastritis without bleeding; Translations: [UNS CHRONIC GASTRITIS W/] Onset: 02-06-2017 Chronic Gastroduodenal ulcer (1 source) Gastric ulcer, unspecified as acute or chronic, without hemorrhage or perforation; Translations: [GASTR ULCR UNS AC/CHRN W] Onset: 07-24-2017 Chronic Menstrual disorders (3 sources) Excessive and frequent menstruation with regular cycle; Translations: [EXCESS FREQ MENSTRUATION] Onset: 04-14-2017 Chronic Mood disorders (1 source) Major depressive disorder, single episode, unspecified; Translations: [DIPAK DEPRESS D/O SINGLE E] Onset: 02-06-2017 Other gastrointestinal disorders (1 source) Irritable bowel syndrome without diarrhea; Translations: [IRRITABLE BOWEL SYND W/O] Onset: 02-06-2017 Chronic Other nutritional; endocrine; and metabolic disorders (1 source) Morbid (severe) obesity due to excess calories; Translations: [MORBID SEVERE OBES D/T E] Onset: 02-06-2017 Chronic Unclassified (1 source) Obstructive sleep apnea (adult) (pediatric); Translations: [OBSTRUCTIVE SLEEP APNEA] Onset: 02-06-2017 Chronic Unclassified (1 source) Unknown / UNK(Unknown) Onset: 04-03-2017 Unclassified (1 source) Pure hypercholesterolemi a, unspecified; Translations: [PURE HYPERCHOLESTEROLEMI ] Onset: 02-06-2017 Past or Other Problems Problem Classification Problem Date Documented Date Episodic/Chronic Abdominal hernia (1 source) Diaphragmatic hernia without obstruction or gangrene; Translations: [DIAPH HERNIA W/O OBST/GA] Onset: 02-06-2017 Episodic Unclassified (1 source) ACUTE GASTRIC ULCER WITH Onset: 04-03-2017 Results Test Name Value Interpretation Reference Range Facil ity Encounters Encounter Date Encounter Type Care Provider Facility Start: 07-04-2017 End: 07-05-2017 Ambulatory IMCA Facility:[facility] Start: 06-20-2017 Ambulatory IMCA Facility:[facility] Start: 04-27-2017 End: 04-28-[address] [facility] Start: 04-14-[address] Luna y:[facility] Start: 04-13-2017 End: 04-14-2017 Ambulatory NO REFERRING Facility:[facility] Start: 04-03-2017 End: 04-04-2017 Ambulatory TONY ALVAREZ Facility:[facility] Start: 02-06-2017 End: 02-07-2017 Ambulatory TONY ALVAREZ Facility:[facility] Procedures Date Procedure Procedure Detail Performing Clinician Start: 02-06-2017 EGD BIOPSY SINGLE/MULTIP CHRISTOPHER ANTONIO Payers Date Payer Category Payer Policy ID Unknown [id number] Progress note 09-13-2021 Note Date & Type Note Facility 09-13-2021 Note HNO ID: [id number] Author: Flower Barfield MD Service: ? Author Type: Physician Type: Progress Notes Filed: 09/13/2021 1:02 PM Note Text: RHEUMATOLOGY NEW PATIENT NOTE REFERRING PHYSICIAN: Self CHIEF COMPLAINT: Patient presents with: Sjogren's Disease New Patient HPI: Ramez Aden is a 41 year old female who presents with positive SHAWANDA She was diagnosed with SS in 2017. Saw Justo Tenorio and then Dr. Souza. Started Plaquenil 2019 and then MTX 2021. She continues to have pain. Worsening. More pain in hands, feet. Numbness in hands. Hip pain (groin and side pain). Joints clicking. knees always hurt. She takes Advil, prednisone for pain. Pain is worse in the mornings and evenings. 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 Swelling in hands towards the end of the day. Some neck pain and tension headache. Low back pain. Not seen a neurologist for hand numbness. Sometime paresthesia in the middle of the night. Activity makes the pain worse. Thyroid disease, sees endo Family history of autoimmune disease: aunt with sjogrens and RA, grandmother, cousin, daughter wit thyroid disease Smoking status: Tobacco Use: Never Rheumatology REVIEW OF SYSTEMS: Constitutional: Recent Weight Change: YES last year lost 50 lb and then gained. Fatigue: YES Fever: No Night sweats: No Heent: Alopecia: YES getting better. H/o Inflammatory eye disease (iritis/scleritis): No Hearing loss: No Frequent sinusitis: No Oral ulcers: No Sicca: dry throat. Parotid swelling: No Hoarseness: No Dysphagia: No Heme/lymph: Lymphadenopathy: No Hematological abnormalities (anemia, thrombocytopenia, leukopenia): No Abnormal bleeding: No Skin: Malar or discoid lesions: No Photosensitivity: No Other rashes: No Raynaud's phenomenon: No Hives: No Tightness: No Nodules/bumps: No Easy Bruising: No Nail changes: No H/o psoriasis: No Gastroenterology: Nausea: {No Vomiting: No Change in bowel movements: No Heartburn: No Respiratory: Dry cough/SOB: No Cardiovascular: Pain in chest: No Musculoskeletal: Per HPI Joint pain or swelling: No Prolonged morning stiffness: No Back pain or neck pain: No Muscle weakness: No Genitourinary: Vaginal dryness: No Rash/ulcers: No Neurological: Headaches: YES migraines Sensitivity or pain of hands and/or feet: YES Psychiatry: Anxiety: YES on Cymbalta Depression: YES Poor sleep: YES she takes melatonin. KRISTOPHER on BIPAP. Sees pulm H/o loss: No H/o thrombosis: No Increased susceptibility to infection: No PAST MEDICAL HISTORY Diagnosis Date - Anxiety - Chondromalacia of patella 12/06/2017 - GERD (gastroesophageal reflux disease) - Hyperlipemia - IBS (irritable bowel syndrome) - Migraines - Morbid obesity (HCC) - Obstructive sleep apnea syndrome - PVC (premature ventricular contraction) r/t BCP - Vitamin D deficiency PAST SURGICAL HISTORY Procedure Laterality Date - COLONOSCOPY - ENDOSCOPY PROC 02/06/2017 - PARING/CUTTING BENIGN HYPERKERATOTIC LESION 1 Trim benign skin lesion from lip - PAST SURGICAL HISTORY OF Hysterectomy, ovaries intact 2018 - PAST SURGICAL HISTORY OF Cholecystectomy 2018 Current Outpatient Medications Medication Sig - levothyroxine (SYNTHROID) 150 mcg tablet Take 150 mcg by mouth daily before breakfast. - folic acid 1 mg tablet Take 2 mg by mouth once daily. - hydrOXYchloroQUINE (PLAQUENIL) 200 mg tablet Take 200 mg by mouth twice daily. - amLODIPine (NORVASC) 5 mg tablet Take by mouth once daily. - methotrexate, PF, 17.5 mg/0.7 mL syrg Inject subcutaneously. Patient states she is injection 0.75 mL once a week. - melatonin 5 mg tablet Take 5 mg by mouth at bedtime as needed for for insomnia. - ubrogepant (UBRELVY) 100 mg tablet Take 100 mg by mouth as needed. - ALPRAZolam (XANAX) 0.25 mg tablet Take 0.25 mg by mouth at bedtime as needed. - DULoxetine (CYMBALTA) 60 mg capsule Take 1 capsule by mouth once daily. - Cholecalciferol, Vitamin D3, 1,000 unit cap Take 1 capsule by mouth once daily. - ferrous sulfate 325 mg (65 mg iron) tablet Take 1 tablet by mouth twice daily with meals. - Magnesium 200 mg tab Take 400 mg by mouth. - verapamil (CALAN, ISOPTIN) 40 mg tablet Take 1 tablet by mouth three times daily. (Patient not taking: Reported on 09/01/2019 ) - levothyroxine (SYNTHROID) 75 mcg tablet Take 75 mcg by mouth once daily. - esomeprazole (NEXIUM) 40 mg capsule Take 1 capsule by mouth daily before breakfast. 1/2 hr before meal. - cyclobenzaprine (FLEXERIL) 10 mg tablet Take 1 tablet by mouth daily at bedtime. - COMPOUNDED PRESCRIPTION Consult: why weight Re: morbid obesity - vitamin b complex (B COMPLETE) tab Take 1 tablet by mouth once daily. No current facility-administered medications for this visit. ALLERGIES Allergen Reactions - Lexapro [Escitalopr* Intolerance Headache - Penicillins Rash FAMILY HISTORY Problem Relation Age of Onset (more content not included)... [facility] Summary Purpose Family History No Family History Records FoundNo Family History Records FoundNo Family History Records Found Advance Directives No Advanced Directives Records FoundNo Advanced Directives Records FoundNo Advanced Directives Records Found Additional Source Comments INFORMATION SOURCE (unrecogn ized section and content) DATE CREATED AUTHOR AUTHOR'S ORGANIZ ATION 09/14/2021 [facility] DATE CREATED AUTHOR AUTHOR'S ORGANIZ ATION 10/03/2021 [facility] FOR RECORDS PERTAINING TO PATIENTS WHO ARE OR HAVE BEEN ENROLLED IN A CHEMICAL DEPENDENCY/SUBSTANCEABUSE PROGRAM, SOME INFORMATION MAY BE OMITTED. This clinical summary was aggregated from multiple sources. Caution should be exercised in using it in the provision of clinical care. This summary normalizes information from multiple sources, and as a consequence, information in this document may materially change the coding, format and clinical context of patient data. In addition, data may be omitted in some cases. CLINICAL DECISIONS SHOULD BE BASED ON THE PRIMARY CLINICAL RECORDS. [employer] [facility]. provides no warranty or guarantee of the accuracy or completeness of information in this document.
== END | disposition home or self-care (01) ==
LOC: LABSPEC 16:33 → LAB 16:34
PROVIDERS: PCP Internal Medicine
DX: M06.09 Rheumatoid arthritis without rheumatoid factor, multiple sites (principal); Z79.899 Other long term (current) drug therapy
CPT/HCPCS: 80076; 82565; 85025; 85652; 86140

== ENCOUNTER → 2023-09-08 | Outpatient (CLI) | payer OTHER, SELFPAY ==
--- NOTE | 2023-09-08 08:20 | RAD_ITS ---
INDICATION: aRTHRITIS EXAMINATION/TECHNIQUE: X-RAY - LEFT XR Foot 2 Views COMPARISON: None. FINDINGS: No acute fracture or malalignment. No blastic or lytic lesions. No degenerative changes are seen. The soft tissues are unremarkable. RAD/Foot 2 Views IMPRESSION: No acute radiographic abnormalities. Electronically Signed: Shyam Shaikh MD at 22:42 EST ,
--- NOTE | 2023-09-08 08:20 | RAD_ITS ---
INDICATION: aRTHRITIS EXAMINATION/TECHNIQUE: X-RAY - RIGHT XR Foot 2 Views COMPARISON: None. FINDINGS: No acute fracture or malalignment. No blastic or lytic lesions. No degenerative changes are seen. The soft tissues are unremarkable. RAD/Foot 2 Views IMPRESSION: No acute radiographic abnormalities. Electronically Signed: Shyam Shaikh MD at 22:42 EST ,
== END | disposition home or self-care (01) ==
PROVIDERS: PCP Internal Medicine
DX: M06.09 Rheumatoid arthritis without rheumatoid factor, multiple sites (principal)
CPT/HCPCS: 73620

== ENCOUNTER → 2023-10-12 | Outpatient (CLI) | payer OTHER, SELFPAY ==
--- NOTE | 2023-10-12 15:57 | RAD_ITS ---
STUDY: X-RAY CHEST REASON FOR EXAM: Female, 43 years old. COUGH TECHNIQUE: PA and lateral views of the chest. COMPARISON: Comparison is made with prior study dated June 24, 2022. FINDINGS: Mild increased markings at the right lung base suggestive of atelectasis. There is no demonstrated pleural abnormality. Normal size heart. Normal mediastinum and pat. Normal visualized pulmonary arteries. Normal visualized aortic arch and descending thoracic aorta. Normal visualized thoracic spine. Normal visualized ribs, clavicles, and shoulders. There is no demonstrated abnormality of the visualized soft tissue structures of the upper abdomen. RAD/Chest PA and Lateral IMPRESSION: Mild increased linear markings at the right lung base suggestive of atelectasis. Electronically Signed: Sukhdeep Manzano MD at 10:13 EDT ,
[2023-10-12 18:23] LABS: Hepatitis B Surface Antigen Non-Reactive (Nonreactive); Hepatitis C Antibody Non-Reactive (Nonreactive)
[2023-10-14 09:08] LABS: Hepatitis B Core Ab Total Negative (Negative); QNTFERON TB Mitogen Value > 10.00 IU/mL (.); QNTFERON TB Nil Value 0.06 IU/mL (.); QNTFERON TB1+ Ag Value 0.07 IU/mL (.); QNTFERON TB2+ Ag Value 0.06 IU/mL (.); QNTIFERON TB Positive Criteria Negative (Negative)
== END | disposition home or self-care (01) ==
LOC: MTLAB 15:53
PROVIDERS: PCP Internal Medicine; Referring Provider Internal Medicine Rheumatology; Visit Provider Internal Medicine Rheumatology
DX: R05.9 Cough, unspecified (principal); Z79.899 Other long term (current) drug therapy
CPT/HCPCS: 36415; 71046; 86480; 86704; 86803; 87340

== ENCOUNTER → 2023-10-17 | Outpatient (CLI) | payer OTHER, SELFPAY ==
[2023-10-17 15:21] LABS: Hematocrit 40.5 % (37-47); Hemoglobin 13.1 g/dL (12.0-15.0); Mean Corp Hgb Conc 32.3 g/dL (32-36); Mean Corpuscular Hgb 30.7 pg (27.0-32.0); Mean Corpuscular Volume 94.8 fL (81-99); Mean Platelet Vol. 9.2 fl (6.2-12.0); Platelet Count 336 K/mm3 (150-450); RBC Distribution Width CV 12.5 % (11.6-14.6); RBC Distribution Width SD 43.4 fl (35.1-43.9); Red Blood Count 4.27 M/mm3 (4.2-5.4); White Blood Count 6.5 K/mm3 (4.4-11.0)
[2023-10-17 16:09] LABS: Ferritin 72 ng/mL (8-252); Iron 69 ug/dL (50-170); Iron Binding Capacity,Total 394 ug/dL (250-450)
[2023-10-17 16:10] LABS: Vitamin B12 890 pg/mL (211-911)
== END | disposition home or self-care (01) ==
LOC: BIMLAB 13:09
PROVIDERS: PCP Internal Medicine; Referring Provider Nurse Practitioner; Visit Provider Nurse Practitioner
DX: D64.9 Anemia, unspecified (principal)
CPT/HCPCS: 36415; 82607; 82728; 83540; 83550; 85027

== ENCOUNTER → 2023-11-22 | Outpatient (CLI) | payer OTHER, SELFPAY ==
[2023-11-22 13:06] LABS: PTHIN 97.8 pg/mL (18.4-80.1)
[2023-11-22 14:04] LABS: ALB/GLOB Ratio 1.1 RATIO (0.9-2.4); AST(SGOT) 19 U/L (15-37); Alanine Aminotransfer ALT/SGPT 22 U/L (13-56); Albumin, Serum 3.9 g/dL (3.2-5.0); Alkaline Phosphatase 59 U/L (45-117); Anion Gap 6 (5-15); BUN 10 mg/dL (7-18); BUN/Creat Ratio 12.9 RATIO (10-20); Calcium,Total 10.1 mg/dL (8.5-10.1); Chloride 106 mmol/L (98-107); Creatinine, Serum 0.78 mg/dL (0.55-1.02); EST Glomerular Filtration Rate 87 mL/min (>60); Est Glom Filt Rate - Afr Amer 105 mL/min (>60); Follicle Stimulating Hormone 5.7 mIU/mL; Globulin 3.6 g/dL (2.2-4.2); Glucose 92 mg/dL (74-106); Protein, Total 7.5 g/dL (6.4-8.2); Sodium Level 137 mmol/L (136-145); T4 Free Direct 0.95 ng/dL (0.76-1.46); Thyroid Stim Hormone (TSH) 0.56 uIU/mL (0.358-3.74)
[2023-11-22 14:35] LABS: Vitamin D,25 Hydroxy 43.8 ng/mL
== END | disposition home or self-care (01) ==
LOC: BIMLAB 11:13
PROVIDERS: PCP Internal Medicine; Visit Provider Internal Medicine Endocrinology, Diabetes & Metabolism
DX: E55.9 Vitamin D deficiency, unspecified (principal); E03.9 Hypothyroidism, unspecified; I10 Essential (primary) hypertension; E83.52 Hypercalcemia; R23.2 Flushing
CPT/HCPCS: 36415; 80053; 82306; 83001; 83970; 84439; 84443

== ENCOUNTER → 2024-01-12 | Outpatient (CLI) | payer OTHER, SELFPAY ==
[2024-01-12 12:54] LABS: Erythrocyte Sedimentation Rate 11 mm/hr (0-30)
[2024-01-12 12:57] LABS: Absolute Lymphocyte Count 2.49 X10^3/uL (0.83-4.51); Absolute Neutrophil Count 3.7 X10^3/uL (2.0-7.7); Basophil# 0.05 X10^3/uL; Basophil% 0.7 % (0-1); Eosinophil# 0.28 X10^3/uL; Hematocrit 40.2 % (37-47); Hemoglobin 12.7 g/dL (12.0-15.0); Lymphocyte # 2.49 X10^3/ul (0.83-4.51); Lymphocyte % 35.5 % (19-41); Mean Corp Hgb Conc 31.6 g/dL (32-36); Mean Corpuscular Hgb 30.2 pg (27.0-32.0); Mean Corpuscular Volume 95.7 fL (81-99); Monocyte# 0.48 X10^3/uL; Monocyte% 6.8 % (0-10); NRBC Flagged by Analyzer 0 % (0-5); Neutrophil # 3.68 X10^3/uL (2.7-7.7); Neutrophil % 52.6 % (47-70); Platelet Count 348 K/mm3 (150-450); RBC Distribution Width CV 13.1 % (11.6-14.6); RBC Distribution Width SD 46.2 fl (35.1-43.9)
[2024-01-12 13:14] LABS: AST(SGOT) 9 U/L (15-37); Alanine Aminotransfer ALT/SGPT 24 U/L (13-56); Albumin, Serum 3.7 g/dL (3.2-5.0); Alkaline Phosphatase 78 U/L (45-117); Bilirubin, Direct 0.13 mg/dL (0.00-0.30); CRP 4.86 mg/L (0.0-3.0); EST Glomerular Filtration Rate 73 mL/min (>60); Est Glom Filt Rate - Afr Amer 89 mL/min (>60); Protein, Total 7.7 g/dL (6.4-8.2)
== END | disposition home or self-care (01) ==
PROVIDERS: PCP Internal Medicine; Referring Provider Internal Medicine Rheumatology; Visit Provider Internal Medicine Rheumatology
DX: M06.09 Rheumatoid arthritis without rheumatoid factor, multiple sites (principal); Z79.899 Other long term (current) drug therapy
CPT/HCPCS: 36415; 80076; 82565; 85025; 85652; 86140

== ENCOUNTER 2024-01-18 12:04 | Emergency (ER) | payer OTHER, SELFPAY ==
[2024-01-18 12:05] VITALS: BP 167/99; PULSE 82; RESP 14; TEMP 36.2; O2SAT 96; O2SAT 99; BMI 55.0
--- NOTE | 2024-01-18 12:18 | EX.ED.UPPERE ---
HPI <ISIDRA Moyer - Last Filed: 01/18/24 13:02> History of Present Illness Chief Complaint: Laceration Narrative Narrative: Patient presenting today with a laceration to her left thumb from a clean kitchen knife that occurred this morning. Her tetanus is up-to-date. PFSH <ISIDRA Moyer - Last Filed: 01/18/24 13:02> [facility] Medical History Borderline type 2 diabetes mellitus Preventative health care Palpitations Autoimmune disease Cat bite Primary hyperparathyroidism B12 deficiency Urge incontinence Prediabetes Hypercalcemia COVID-19 Insulin resistance Depression Anxiety Alcohol use History of steroid therapy Thyroid disease Restless legs Back pain Migraine headache History of hiatal hernia Gastric reflux Non-smoker BiPAP (biphasic positive airway pressure) dependence Sleep apnea Shortness of breath on exertion Leg cramps History of edema History of echocardiogram Hypertension History of irregular heartbeat Constipation Sleep concern Sjogren's disease Vitamin deficiency GERD (gastroesophageal reflux disease) IBS (irritable bowel syndrome) Arthritis Seasonal allergies Anemia Stomach ulcer Anxiety and depression Home Medications ?Medication ?Instructions ?Recorded ?Last Taken ?Type ferrous sulfate 325 mg (65 mg 325 mg PO DAILY 12/16/19 Unknown History iron) tablet (FeroSul) alprazolam 0.25 mg tablet (Xanax) 0.25 mg PO DAILY PRN PRN Anxiety 09/29/22 Unknown Rx #20 tabs losartan 100 mg tablet 100 mg PO DAILY #90 tabs 03/27/23 Unknown Rx prednisone 10 mg tablet 10 mg PO DAILY PRN Arthritis #100 06/05/23 Unknown Rx tabs duloxetine 60 mg capsule,delayed 60 mg PO QDAY DEPRESSION #90 caps 09/07/23 Unknown Rx release (Cymbalta) semaglutide (weight loss) 0.25 0.25 mg (0.5 mL) subcut QWEEK #2 mL 10/03/23 Unknown Rx mg/0.5 mL subcutaneous pen injector (Vimal) insulin syringe needleless 1 mL #20 ea 10/10/23 Unknown Rx safety needles 25 gauge x 1 (BD #20 ea 10/10/23 Unknown Rx Eclipse) levothyroxine 150 mcg tablet 150 mcg PO .5 days per week #90 11/14/23 Unknown Rx tabs mecobalamin (vitamin B12) 1,000 1,000 mcg PO DAILY 11/14/23 Unknown History mcg chewable tablet melatonin 3 mg capsule 3 mg PO HS PRN 11/14/23 Unknown History upadacitinib 15 mg tablet,extended 15 mg PO DAILY 11/14/23 Unknown History release 24 hr (Rinvoq) duloxetine 30 mg capsule,delayed 30 mg PO DAILY #90 caps 11/30/23 Unknown Rx release ubrogepant 100 mg tablet (Ubrelvy) 100 mg PO ONCE PRN MIGRAINES #15 12/12/23 Unknown Rx tabs Allergy/AdvReac Type Severity Reaction Status Date / Time sumatriptan Allergy Severe headache Verified 01/18/24 12:06 penicillin G Allergy Mild Other Verified 01/18/24 12:06 latex Allergy Rash Verified 01/18/24 12:06 escitalopram (From Lexapro) AdvReac Other Verified 01/18/24 12:06 Family History Grandmother Heart disease Arthritis Diabetes Hypertension Thyroid disorder Stomach ulcer Mother Asthma Arthritis Hypertension Aunt Arthritis Heart disease Autoimmune disease Grandfather Cancer lung Father Hypertension Uncle Heart disease Other Anemia Anesthesia complication Anxiety Parkinson disease Skin cancer Surgical History Hx of hysterectomy History of total vaginal hysterectomy (TVH) lesion removal from lip Social History Smoking Status: Never smoker alcohol intake: current alcohol intake frequency: holidays/special occasions only details: Social substance use type: does not use caffeine: Yes what type of physical activity do you participate in: none seatbelt use: always do you feel safe at home: Yes 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 [employer] ROS <ISIDRA Moyer - Last Filed: 01/18/24 13:02> ROS ED Constitutional Constitutional ED: Denies chills or fever(s) Musculoskeletal Musculoskeletal: Denies arthralgias Integumentary Reports laceration Neurologic Neurologic: Denies paresthesias EXAM <ISIDRA Moyer - Last Filed: 01/18/24 13:02> Physical Exam Const Vital Signs: 01/18/24 12:05 01/18/24 12:05 Temperature 97.1 F L Temperature Source Temporal Pulse Rate 82 82 Respiratory Rate 14 14 Blood Pressure 167/99 H 167/99 H Blood Pressure Mean 121 121 Pulse Ox 99 96 Oxygen Delivery Method Room Air Room Air Positive well nourished, well developed and no apparent distress General Appearance ED: well developed HEENT Reports normocephalic and head/scalp atraumatic Mouth ED: Yes moist mucous membranes normal Eyes EOMs intact bilaterally Neck full ROM Resp normal respiratory effort and clear to auscultation bilaterally Cardio regular rate and regular rhythm Back/Spine normal ROM and normal to inspection Extremity normal to inspection and full ROM Neuro oriented x3, moves all extremities, no focal motor deficits and no sensory deficits noted Sensorium / Orientation: awake and alert Psych mental status grossly normal and thought process normal Skin Skin Narrative: 0.5 cm linear superficial laceration to the distal aspect of the left thumb. Left radial pulse 2+, good capillary refill, sensation intact. MDM <ISIDRA Moyer - Last Filed: 01/18/24 13:02> [facility] Narrative Medical decision making narrative: Patient presenting with a laceration to the distal aspect of her left thumb from a kitchen knife that occurred this morning. This is superficial and does not require suture repair. It was cleaned with saline and chlorhexidine, it was repaired with Dermabond. Patient tolerated procedure well. Wound care instructions were discussed. She was discharged in stable condition. <Dr. Lucio Bell DO - Last Filed: 01/18/24 12:47> [facility] History & Record Review Discussion w/independent historian: Patient Treatment and Re-Evaluation Narrative: I have personally performed a face to face assessment of the patient and have reviewed the MARTY Note. I performed a substantive portion of the visit including all aspects of the following. My das findings include: History is 43-year-old female with finger laceration of left thumb from kitchen knife. Bleeding controlled. Exam is superficial half centimeter laceration of the volar aspect distal left thumb. Neurovascular intact. Medical Decison Making wound was cleansed and then closed with Dermabond. Local wound care discussed with patient. As needed. Procedures <ISIDRA Moyer - Last Filed: 01/18/24 13:02> Lacerations laceration: Length: 0.5 cm Depth: Skin Shape: Linear Prep: Chlorhexadine Laceration repair: Dermabond Discharge Plan Triage Chief Complaint: Laceration ED Midlevel Provider: Susy Benson ED Provider: Lucio Bell Dx/Rx/DC Orders Clinical Impression: Finger laceration Instructions: ED Laceration, Skin Adhesive Prescriptions: No Action ferrous sulfate [FeroSul] 325 mg (65 mg iron) tablet 325 mg PO DAILY alprazolam [Xanax] 0.25 mg tablet 0.25 mg PO DAILY PRN PRN (Reason: Anxiety) Qty: 20 0RF Rinvoq 15 mg tablet extended release 24 hr 15 mg PO DAILY melatonin 3 mg capsule 3 mg PO HS PRN mecobalamin (vitamin B12) 1,000 mcg tablet,chewable 1,000 mcg PO DAILY levothyroxine 150 mcg tablet 150 mcg PO .5 days per week Qty: 90 3RF Wegovy 0.25 mg/0.5 mL pen injector 0.25 mg subcut QWEEK Qty: 2 3RF Rx Instructions: administer weeks 1 through 4 of therapy losartan 100 mg tablet 100 mg PO DAILY Qty: 90 3RF prednisone 10 mg tablet 10 mg PO DAILY PRN (Reason: Arthritis) Qty: 100 2RF Rx Instructions: Take 4 tablets for 3 days; Take 3 tablets for 3 days; Take 2 tablets for 3 days; Take 1 tablet for 3 days Take with food or milk duloxetine [Cymbalta] 60 mg capsule,delayed release(DR/EC) 60 mg PO QDAY Qty: 90 1RF (DME) insulin syringe needleless 1 mL syringe See Rx Instructions .Route Qty: 20 0RF Rx Instructions: As directed (DME) BD Eclipse 25 gauge x 1 needle See Rx Instructions .Route Qty: 20 0RF Rx Instructions: As directed duloxetine 30 mg capsule,delayed release(DR/EC) 30 mg PO DAILY Qty: 90 1RF Ubrelvy 100 mg tablet 100 mg PO ONCE PRN (Reason: MIGRAINES) Qty: 15 0RF Rx Instructions: as a single dose; may repeat once in >=2 hours after first dose if needed Primary Care Provider: Wyatt Marcelo Referrals: Wyatt Marcelo MD [Primary Care Provider] - As Needed Activity Restrictions/Additional Instructions: Follow-up with PCP or return for any signs of infection. Print Language: Telugu Disposition Disposition: Home, Self Care Discharge Date/Time: 01/18/24 12:36
== END 2024-01-18 12:36 | disposition home or self-care (01) ==
LOC: ED 12:28
PROVIDERS: Emergency Provider Emergency Medicine; PCP Internal Medicine; Visit Provider Emergency Medicine
DX: S61.012A Laceration without foreign body of left thumb without damage to nail, initial encounter (principal); W26.0XXA Contact with knife, initial encounter; Z86.16 Personal history of COVID-19
CPT/HCPCS: 12001; 99282

== ENCOUNTER → 2024-02-13 | Outpatient (CLI) | payer OTHER, SELFPAY ==
[2024-02-13 12:57] LABS: Thyroid Stim Hormone (TSH) 1.68 uIU/mL (0.358-3.74)
== END | disposition home or self-care (01) ==
LOC: BIMLAB 10:02
PROVIDERS: PCP Internal Medicine; Visit Provider Internal Medicine Endocrinology, Diabetes & Metabolism
DX: E03.8 Other specified hypothyroidism (principal); E06.3 Autoimmune thyroiditis
CPT/HCPCS: 36415; 84439; 84443

== ENCOUNTER → 2024-04-01 | Outpatient (CLI) | payer OTHER, SELFPAY ==
[2024-04-01 12:37] LABS: Erythrocyte Sedimentation Rate 15 mm/hr (0-30)
[2024-04-01 12:41] LABS: Absolute Neutrophil Count 2.7 X10^3/uL (2.0-7.7); Basophil# 0.04 X10^3/uL; Basophil% 0.7 % (0-1); Eosinophil# 0.14 X10^3/uL; Eosinophils% 2.4 % (0-5); Hematocrit 38.3 % (37-47); Hemoglobin 12.2 g/dL (12.0-15.0); Lymphocyte % 41.8 % (19-41); Mean Corp Hgb Conc 31.9 g/dL (32-36); Mean Corpuscular Hgb 31.3 pg (27.0-32.0); Mean Corpuscular Volume 98.2 fL (81-99); Mean Platelet Vol. 9.7 fl (6.2-12.0); Monocyte# 0.45 X10^3/uL; Monocyte% 7.8 % (0-10); NRBC Flagged by Analyzer 0 % (0-5); Neutrophil % 47.1 % (47-70); Platelet Count 398 K/mm3 (150-450); RBC Distribution Width CV 12.2 % (11.6-14.6); RBC Distribution Width SD 44.2 fl (35.1-43.9); White Blood Count 5.7 K/mm3 (4.4-11.0)
[2024-04-01 13:27] LABS: AST(SGOT) 13 U/L (15-37); Alanine Aminotransfer ALT/SGPT 22 U/L (13-56); Albumin, Serum 3.7 g/dL (3.2-5.0); Alkaline Phosphatase 59 U/L (45-117); Bilirubin, Direct 0.08 mg/dL (0.00-0.30); CRP 5.25 mg/L (0.0-3.0); Creatinine, Serum 0.85 mg/dL (0.55-1.02); EST Glomerular Filtration Rate 79 mL/min (>60); Est Glom Filt Rate - Afr Amer 95 mL/min (>60); Globulin 3.8 g/dL (2.2-4.2); Protein, Total 7.5 g/dL (6.4-8.2)
== END | disposition home or self-care (01) ==
LOC: BIMLAB 09:27
PROVIDERS: PCP Internal Medicine
DX: Z79.899 Other long term (current) drug therapy (principal)
CPT/HCPCS: 36415; 80076; 82565; 85025; 85652; 86140

== ENCOUNTER → 2024-04-02 | Outpatient (CLI) | payer OTHER, SELFPAY ==
--- NOTE | 2024-04-02 08:00 | BI_ITS ---
MAMMOGRAPHY - BILATERAL SCREENING REASON FOR EXAM: Female, 43 years old. Routine annual screening examination. PERTINENT HISTORY: Non-contributory. TECHNIQUE: Digital bilateral breast christopher (3D mammographic acquisition) in the CC and MLO projections. 2-D mediolateral oblique (MLO) and craniocaudad (CC) views of both breasts were obtained. CAD: Full Field Digital Mammography with Computer Added Detection was performed. COMPARISON: Comparison is made with prior study October 31, 2022. FINDINGS: Breast Composition: There are scattered areas of fibroglandular density. There are no dominant masses or suspicious calcifications. No other significant abnormalities are identified. There has been no significant change since the prior study. BI/SCRN MAMM (CAD)W/CHRISTOPHER BILAT IMPRESSION: Stable bilateral screening mammogram. Yearly follow-up mammogram recommended. (A) ASSESSMENT CATEGORY: BIRADS Category 1: Negative. A letter regarding these results will be sent to the patient by the facility within 30 days. Approximately 10% of breast cancers are not detected by mammography. A normal mammogram should not delay biopsy of a clinically suspicious abnormality. [id number] Electronically Signed: Sukhdeep Manzano MD at 9:37 EDT ,
== END | disposition home or self-care (01) ==
LOC: OPBI 08:00
PROVIDERS: PCP Internal Medicine; Referring Provider Nurse Practitioner Family; Visit Provider Nurse Practitioner Family
DX: Z12.31 Encounter for screening mammogram for malignant neoplasm of breast (principal)
CPT/HCPCS: 77063; 77067

== ENCOUNTER → 2024-04-30 | Outpatient (CLI) | payer OTHER, SELFPAY ==
--- NOTE | 2024-04-30 08:21 | BD_ITS ---
STUDY: DUAL ENERGY X-RAY ABSORPTIOMETRY / DXA REASON FOR EXAM: Female, 43 years old. bone density screening -- mother has osteoporosis and patient has hyperparathyroidism TECHNIQUE: Bone Mineral Density (BMD) measurements of lumbar spine and bilateral hips were obtained. COMPARISON: None. FINDINGS: Lumbar Spine (L1-L4): g/cm2 (1.140) / T-score (0.8) / Z-score (1.1) Findings are suggestive of normal bone density with a low fracture risk. Left Femur Total: g/cm2 (1.169) / T-score (1.9) / Z-score (2.1) Left Femoral Neck: g/cm2 (1.023) / T-score (1.6) / Z-score (1.9) Right Femur Total: g/cm2 (1.170) / T-score (1.9) / Z-score (2.1) Right Femoral Neck: g/cm2 (1.050) / T-score (1.8) / Z-score (2.1) BD/Dexa Bone Density Study IMPRESSION: The patient is considered normal as outlined below according to World Eulalio Organization (WHO) criteria with a low fracture risk. Reference Information: The T-score is the number of standard deviations above or below the standard which is normal for young adults at their peak bone mineral density. The World Health Organization (WHO) interprets the T-scores as follows: Above -1 Normal bone density Between -1 and -2.5 Osteopenia Equal to / or below -2.5 Osteoporosis As a practical clinical guideline, osteopenia may be graded as follows: Mild -1 through -1.5 Moderate -1.6 through -2.0 Severe -2.1 through -2.4 The Z-score is the number of standard deviations above or below age-matched controls. A Z-score of less than -1.5 would be considered abnormal. References: 1. NIH Osteoporosis and Related Bone Diseases www osteo.org 2. International Society for Clinical Densitometry www iscd.org 3. National Osteoporosis Foundation www nof.org Electronically Signed: Sukhdeep Manzano MD at 13:32 EDT ,
== END | disposition home or self-care (01) ==
LOC: OPBD 08:07
PROVIDERS: PCP Internal Medicine; Referring Provider Nurse Practitioner Family; Visit Provider Nurse Practitioner Family
DX: E21.0 Primary hyperparathyroidism (principal)
CPT/HCPCS: 77080

== ENCOUNTER → 2024-05-09 | Outpatient (CLI) | payer OTHER, SELFPAY ==
--- NOTE | 2024-05-09 16:40 | RAD_ITS ---
EXAM: XR LUMBOSACRAL SPINE, 4 OR 5 VIEWS CLINICAL INDICATION: low back pain TECHNIQUE: Frontal, lateral and bilateral oblique views of the lumbar spine. COMPARISON: 02/03/2023. FINDINGS: VERTEBRAE: Mild anterior subluxation of L3 on L4 measuring 5 mm similar to the prior exam. Preserved vertebral body height. No fracture. No spondylolisthesis. Preservation of the normal lumbar lordosis. No significant facet arthropathy. DISC SPACES: No acute findings. Disc spaces are maintained. GASTROINTESTINAL TRACT: Unremarkable as visualized. Included bowel gas pattern is non-obstructive. RAD/L/S Spine Min 4 Views IMPRESSION: Mild anterolisthesis of L3 on L4 unchanged since previous exam. No acute abnormality. Electronically Signed: Juan R Vega MD at 1:22 EDT ,
== END | disposition home or self-care (01) ==
LOC: RAD 16:36
PROVIDERS: PCP Internal Medicine; Referring Provider Student in an Organized Health Care Education/Training Program; Visit Provider Student in an Organized Health Care Education/Training Program
DX: M54.50 Low back pain, unspecified (principal)
CPT/HCPCS: 72110

== ENCOUNTER → 2024-05-10 | Outpatient (CLI) | payer OTHER, SELFPAY ==
--- NOTE | 2024-05-10 10:35 | RAD_ITS ---
STUDY: X-RAY - LUMBAR SPINE REASON FOR EXAM: Female, 43 years old. pain -- flex/ex TECHNIQUE: Flexion and extension lateral view(s) of the lumbar spine were obtained. COMPARISON: May 09, 2024 FINDINGS: Normal lumbar lordosis. There is a normal alignment of the vertebrae. Normal vertebral bodies and endplates. Normal disc space heights. Limited flexion. The soft tissue structures are unremarkable. RAD/L/S Spine Bending Flex/Ext IMPRESSION: Limited flexion of the lumbar spine. Electronically Signed: Devin Davis DO at 20:14 EDT ,
--- OUTSIDE RECORDS SUMMARY | 2024-05-10 10:55 | XMS RPT_ITS | CCD ---
Author Organization [facility] Care Team Providers Care Health Aid Name Role Phone MAIA ALVAREZER R Unavailable Unavailabl e ANTONIO, CHRISTOPHER R Unavailable Unavailabl e NO REFERRING DR Unavailable Unavailable TALITA ALVAREZOPHER R Unavailable Unavailabl e ANTONIO, TALITAOPHER R Unavailable Unavailabl e NO REFERRING DR Unavailable Unavailable MAIA ALVAREZER R Unavailable Unavailabl e NO REFERRING DR Unavailable Unavailable SLAVA BEYER Unavailable Unavailable SALVA BEYER Unavailable Unavailable NO REFERRING DR Unavailable Unavailable SLAVA BEYER Unavailable Unavailable SLAVA BEYER Unavailable Unavailable IMCA Unavailable Unavailable IMCA Unavailable Unavailable IMCA Unavailable Unavailable IMCA Unavailable Unavailable Allergies Allergy Classification Reported Allergen(s) Allergy Type Date of Onset Reaction(s) Facility (1 source) escitalopram; Translations: [ESCITALOPRAM] Drug Allergy [facility] Repository (1 source) penicillin; Translations: [PENICILLIN] Drug Allergy [facility] Repository (1 source) Penicillins; Translations: [PENICILLINS] Propensity to adverse reactions (disorder) [facility] Repository Problems Active Problems Problem Classification [...] Translations: [GASTR ULCR UNS AC/CHRN W] Onset: 02-06-2017 Chronic Menstrual disorders (3 sources) Excessive and [...] Results Test Name Value Interpretation Reference Range Facility [facility] 09-13-2021 OV Office Visit (RHBATH ) ALMA ADEN ([id number]) 1980 F Date Time Provider Department 09/13/21 8:20 AM [facility] RHBATH During your visit today, we recorded the following information about you: Temperature Pulse Respiration Blood pressure 94.2 degrees 88/minute 12/minute 126/90 Weight Height 166.9 kg 1.727 m Flower Pinedo MD 09/13/2021 1:02 PM Signed RHEUMATOLOGY NEW PATIENT NOTE REFERRING PHYSICIAN: Self CHIEF COMPLAINT: Patient presents with: Sjogren's Disease New Patient HPI: Alma Aden is a 41 year old female who presents with positive SHAWANDA She was diagnosed with SS in 2018. Saw Justo Tenorio and then Dr. Souza. Started Plaquenil 2019 and then MTX 2021. She continues to have pain. Worsening. More pain in hands, feet. Numbness in hands. Hip pain (groin and side pain). Joints clicking. knees always hurt. She takes Advil, prednisone for pain. Pain is worse in the mornings and evenings. 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 Some neck pain and tension headache. Low back pain. Not seen a neurologist for hand numbness. Sometime paresthesia in the middle of the night. Activity makes the pain worse. Thyroid disease, sees devyn Family history of autoimmune disease: aunt with [...] bedtime. - COMPOUNDED PRESCRIPTION Consult: why weight (more content not included)... Normal [facility] CNPNon 09-13-2021 CNPN Telephone (RULTTB) BEVERLYALMA Snow ([id number]) 1980 F Date Time Provider Department 09/13/21 MOSES LEE During your visit today, we recorded the following information about you: FERNY Sorensen 09/13/2021 10:44 AM Signed Visit Type: MSK SYN x2 Visit Length: 90, 100 OR 120 MINUTES Order Name/Protocol: US HAND/WRIST SYNOVIAL SCREEN LT+RT AND US FOOT/ANKLE SYNOVIAL SCREEN LT+RT Preferred Provider: DR. JAYDEN QUACH Comment: N/A Location: ANY FACILITY Slot held: N/A FERNY Sorensen 09/13/2021 10:44 AM Signed Called patient on 09/13 at 10:40 to schedule their MSK US exam. No answer, left VM, first attempt. Phu Gomez 09/14/2021 9:15 AM Signed Called patient on 09/14 at 9:14 to schedule their MSK US exam. No answer, left VM, 2nd attempt. FERNY Sorensen 09/15/2021 8:54 AM Signed Called patient on 09/15 at 8:54 to schedule their MSK US exam. No answer, left VM, third attempt. Allergies As of Date: 09/13/2021 Noted Allergy Reaction LEXAPRO (ESCITALOPRAM) 10/03/2016 5 - Intolerance Comments: Headache PENICILLINS 11/27/2011 2 - Rash Date Reviewed: 09/13/2021 Reviewed by: Rowan Aguilar LPN - Fully Assessed Reason for Visit: Appointment [[id number]] Prescriptions as of 09/15/2021 - levothyroxine (SYNTHROID) 150 mcg tablet Take [...] 100 mg by mouth as needed. - verapamil (CALAN, ISOPTIN) 40 mg tablet Take 1 tablet by mouth three times daily. - ALPRAZolam (XANAX) 0.25 mg tablet Take 0.25 mg by mouth at bedtime as needed. - levothyroxine (SYNTHROID) 75 mcg tablet Take 75 mcg by mouth once daily. - esomeprazole (NEXIUM) 40 mg capsule Take 1 capsule by mouth daily before breakfast. 1/2 hr before meal. - cyclobenzaprine (FLEXERIL) 10 mg tablet Take 1 tablet by mouth daily at bedtime. - DULoxetine (CYMBALTA) 60 mg capsule Take 1 capsule by mouth once daily. - Cholecalciferol, Vitamin D3, 1,000 unit cap Take 1 capsule by mouth once daily. - COMPOUNDED PRESCRIPTION Consult: why weight Re: morbid obesity - ferrous sulfate 325 mg (65 mg iron) tablet Take 1 tablet by mouth twice daily with meals. - Magnesium 200 mg tab Take 400 mg by mouth. - vitamin b complex (B COMPLETE) tab Take 1 tablet by mouth once daily. Problem List As Of Date 09/13/2021 Noted Resolved Anxiety [F41.9] 10/06/2015 Migraine without status migrainosus [G43.909] 10/06/2015 Iron deficiency anemia [D50.9] 04/04/2017 Vitamin D deficiency [E55.9] 10/27/2017 Positive SHAWANDA (antinuclear antibody) [R76.8] 10/27/2017 Obesity, Class III, BMI 40-49.9 (morbid obesity*11/21/2017 Hypothyroidism, acquired [E03.9] 07/26/2018 Encounter Status:Closed by MOSES LEE on 09/15/21 Normal [facility] Hepatitis C RNA by PCRon Hepatitis C RNA by PCR SEE BELOW Normal [facility] Comment on above: Result Comment: Hepa titis C RNA SEE BELOW IU/mLHCV RNA not detected by PCR.Reference Range: Negative for HCV RNAThe Linear Range of this assay is 15 IU/mL to 100,000,000 IU/mL.Performing Laboratory:[place] [id number] Performed By: #### S URG ####[place] [address] Syphilis IgG with Confon Syphilis IgG with Conf SEE BELOW Normal [facility] Comment on above: Result Comment: Syph ilis IgG, Qual Nonreactive NREACTIn conjunction with this result, the immune status of the patientshould be evaluated based on their clinical status, related risk factors, andother diagnostic test results.Syphilis IgG <0.2 AIAntibody index is interpreted as follows:Non reactive SPECIMENS <=0.8Weak reactive SPECIMENS 0.9 to 5.9Reactive SPECIMENS >=6.0RPR SEE BELOW AB NRTest Not IndicatedRPR Quant Titer SEE BELOWTest Not IndicatedT. pallidum IgG Qual SEE BELOW AB NEGATTest Not IndicatedT. pallidum, IgG SEE BELOW Index ValueTest Not IndicatedSyphilis Interpretati SEE BELOWTest Not IndicatedPerforming Laboratory:[place] [id number] Performed By: #### S URG ####[place] [address] HIV Screenon 07-05-2017 HIV Screen Negative Normal Nonreactive [facility] Comment on above: Performed By: #### S URG ####[place] [address] Hep. B Surface Agon 07-05-20 17 Hep.B Surface Ag Negative Normal Negative [facility] Comment on above: Performed By: #### S URG ####[place] [address] Hepatitis C Antibodyon 07-05 Hepatitis C Ab Negative Normal Negative [facility] Comment on above: Performed By: #### S URG ####[place] [address] Ferritinon 07-04-2017 Ferritin 8.30 ng/mL Normal 8.00-252.00 [facility] Comment on above: Performed By: #### S URG ####[facility] [place], [place] [address] Iron Binding Cap.on 07-04-20 17 Iron Binding Cap. 356 ug/dL Normal 250-450 [facility] Comment on above: Performed By: #### S URG ####[facility] [place], [place] [address] Iron Serumon 07-04-2017 Iron Serum 44 ug/dL Low 50-170 [facility] Comment on above: Performed By: #### S URG ####[address] [address] Basic Panelon 04-27-2017 Creatinine 0.98 mg/dL High 0.51-0.95 [facility] Comment on above: Performed By: #### S URG ####[address] [address] Anion gap 11 mmol/L Normal 8-16 [facility] Comment on above: Performed By: #### S URG ####[address] [address] CO2 26 mmol/L Normal 21-32 [facility] Comment on above: Performed By: #### S URG ####[address] [address] Glucose mass conc 99 mg/dL Normal 70-99 [facility] Comment on above: Performed By: #### S URG ####[address] [address] Urea nitrogen 12 mg/dL Normal 7-18 [facility] Comment on above: Performed By: #### S URG ####[address] [address] Calcium 9.1 mg/dL Normal 8.5-10.1 [facility] Comment on above: Performed By: #### S URG ####[address] [address] Chloride 103 mmol/L Normal 98-107 [facility] Comment on above: Performed By: #### S URG ####[address] [address] Potassium molar conc 4.0 mmol/L Normal 3.5-5.1 [facility] Comment on above: Performed By: #### S URG ####[address] [address] Sodium 136 mmol/L Normal 136-145 [facility] Comment on above: Performed By: #### S URG ####[address] [address] Ferritinon 04-27-2017 Ferritin 9.90 ng/mL Normal 8.00-252.00 [facility] Comment on above: Performed By: #### S URG ####[address] [address] Hemogram/Diffon 04-27-2017 Basophils Auto #/vol (Bld) 0.06 thou/cmm Normal 0.01-0.08 [facility] Comment on above: Performed By: #### C BCD1 ####[address] [address] Basophils/100 WBC Auto (Bld) 1.0 % Normal [facility] Comment on above: Performed By: #### C BCD1 ####[address] [address] Eosinophils 0.22 thou/cmm Normal 0.00-0.31 [facility] Comment on above: Performed By: #### C BCD1 ####[address] [address] Eosinophils/100 leukocytes 3.7 % Normal [facility] Comment on above: Performed By: #### C BCD1 ####[address] [address] Erythrocyte distribution width Auto Ratio (RBC) 14.3 % Normal 11.7-14.4 [facility] Comment on above: Performed By: #### C BCD1 ####[address] [address] Erythrocytes (RBC) 3.88 mil/cmm Low 3.93-5.22 [facility] Comment on above: Performed By: #### C BCD1 ####[place] [address] Hematocrit (HCT) 35.6 % Normal 34.1-44.9 [facility] Comment on above: Performed By: #### C BCD1 ####[place] [address] Hemoglobin mass conc (Bld) 11.7 g/dL Normal 11.2-15.7 [facility] Comment on above: Performed By: #### C BCD1 ####[place] [address] Immature Grans 0.20 % Normal [facility] Comment on above: Performed By: #### C BCD1 ####[place] [address] Immature Grans # 0.01 thou/cmm Normal 0.00-0.05 [facility] Comment on above: Performed By: #### C BCD1 ####[place] [address] Lymphocytes 1.94 thou/cmm Normal 1.18-3.74 [facility] Comment on above: Performed By: #### C BCD1 ####[place] [address] Lymphocytes/100 leukocytes 32.3 % Normal [facility] Comment on above: Performed By: #### C BCD1 ####[place] [address] MCH 30.2 pg Normal 25.6-32.2 [facility] Comment on above: Performed By: #### C BCD1 ####[place] [address] MCHC mass conc (RBC) 32.9 % Normal 31.6-34.8 [facility] Comment on above: Performed By: #### C BCD1 ####[place] [address] MCV 91.8 fL Normal 79.4-94.8 [facility] Comment on above: Performed By: #### C BCD1 ####[place] [address] Monocytes 0.38 thou/cmm Normal 0.27-0.70 [facility] Comment on above: Performed By: #### C BCD1 ####[facility] [place], [place] [address] Monocytes/100 leukocytes 6.3 % Normal [facility] Comment on above: Performed By: #### C BCD1 ####[address] [address] Platelet mean volume (PMV) 10.1 fL Normal 9.4-12.3 [facility] Comment on above: Performed By: #### C BCD1 ####[address] [address] Platelets 313 thou/cmm Normal 182-369 [facility] Comment on above: Performed By: #### C BCD1 ####[address] [address] RDW SD 48.3 fl High 36.4-46.3 [facility] Comment on above: Performed By: #### C BCD1 ####[address] [address] Seg Neutrophil 56.5 % Normal [facility] Comment on above: Performed By: #### C BCD1 ####[address] [address] Seg. Neut.# 3.40 thou/cmm Normal 1.56-6.13 [facility] Comment on above: Performed By: #### C BCD1 ####[address] [address] WBC (Leukocytes) 6.01 thou/cmm Normal 3.98-10.04 [facility] Comment on above: Performed By: #### C BCD1 ####[address] [address] Iron Binding Cap.on 04-27-20 17 Iron Binding Cap. 388 ug/dL Normal 250-450 [facility] Comment on above: Performed By: #### I BC ####[address] [address] Iron Serumon 04-27-2017 Iron Serum 33 ug/dL Low 50-170 [facility] Comment on above: Performed By: #### I JIMMY ####[address] [address] HPV High Riskon 04-19-2017 HPV High Risk SEE BELOW Normal [facility] Comment on above: Result Comment: HPV MRNA E6/E7 Not Detected NOT DETECTEDThis test was performed using the APTIMA(R) HPV Assay([employer]This assay detects E6/E7 viral messenger RNA (mRNA)from 14 high-risk HPV types (16,18,31,33,35,39,45,51,52,56,58,59,66,68).For additional information please refer to:http://education.[employer]/faq/OPZ222h9(This link is being provided for informational/educational purposes only.)Test Performed by [facility],[employer] [facility],[address] [place] [id number] Brunson M.D., Ph.D., Director of [phone], [facility] [id number] Performed By: #### H PVRQ ####[place] [address] HPV High Riskon 04-17-2017 Cytology Normal [facility] Comment on above: Performed By: #### H PVRQ ####[address] [address] [place] Venipunctureon 03-18 [place] Venipuncture COMPLETED Normal [facility] Comment on above: Performed By: #### M VENP ####[address] [address] TSH, 3rd generationon 2016 TSH, 3rd generation 2.080 uIU/mL Normal 0.358-3.740 [facility] Comment on above: Performed By: #### T SH3 ####[address] [address] Pap,Cyto Gynon 04-13-2017 Pap,Cyto Archivist Economic History Test performed at [address], [place], [place] [address]XBWU: ALMA ADEN [id number] REQUESTING: SLAVA BEYER D.O.SPECIMEN: TP CERVICAL/ENDOCERVICAL HPV REGARDLESSRelevant History:LMP: 03/28/2017SPECIMEN ADEQUACYSATISFACTORY FOR EVALUATION. ENDOCERVICAL/TRANSFORMATION ZONECOMPONENTS PRESENT.INTERPRETATION/RESULT NEGATIVE FOR INTRAEPITHELIAL LESION OR MALIGNANCY.ANCILLARY TESTINGHPV mRNA E6/E7 - Not Detected for HIGH RISK HPV. Please see additionalreport from [employer].Electronically signed: 04/19/2017Screened by: LEAH ALARCON(ASCP)Signed Out by: LEAH ALARCON(ASCP)The Pap test serves as a screening tool for early detection of cervical cancer. The Pap test does not represent a final diagnostic test forcervical cancer. Furthermore, the Pap test was not designed to screenfor other malignancies (endometrial, ovarian cancer, etc....). Falsenegatives and false positives have occurred. If clinically indicated,further patient evaluation is recommended.Printed on: April 19, 2017 Page 1 of 1 Normal [facility] Comment on above: Performed By: #### C YTOP ####[place] [address] OPERATIVE REPORTon [facility]ATIVE REPORT [facility] Operative ReportSURGEON: GT AlstonDAYDAYEA MMRN: [id number] ACCTNUM: [id number] OF SURGERY: 02/06/2017DATE OF : 1980 SEX/AGE: F/36[facility] DATE: 02/06/2017DATE OF SURGERY: 02/06/2017SURGEON: CAROL AlstonROCEDURE: Esophagogastroduodenoscopy with cold forceps biopsies.ANESTHESIA: MAC by anesthesiology without complications.PREOPERATIVE DIAGNOSES:1. Morbid obesity.2. Gastroesophageal reflux disease.POSTOPERATIVE DIAGNOSES:1. Small (under 1 centimeter) hiatal hernia.2. Distal gastritis.3. Small gastric ulcer.SPECIMENS:1. Antral biopsies for H pylori testing.2. Gastric ulcer biopsy.ESTIMATED BLOOD LOSS: Minimal.COMPLICATIONS: None.OPERATIVE PROCEDURE: Patient was brought to the endoscopic suite in stable condition. Preproceduralchecklist was completed to the satisfaction of the entire team and verified with the patient. I also completed theconsent process in the endoscopy suite after discussing the risks and benefits of the procedure which included,but were not limited to, the risk of hemorrhage, need for blood transfusion, the possibility of perforation. Sheopted to proceed with the procedure and signed the consent form. By protector was then put in place andsedation given by anesthesiology. Once appropriately sedated the Olympus gastroscope was inserted throughthe mouth. I was easily able to intubate the esophagus. The esophageal portion examination showed evidenceof likely a small hiatal hernia, which was under 1 centimeter in size and contractile depended. There was noevidence of esophagitis or mucosal changes suggestive of Pena esophagus. Upon entering the stomach, shedid have gastric secretions, which were suctioned out. Distally in the stomach she did have a linear streakingconsistent with gastritis. She also had a small gastric ulcer in the antrum. I did retroflex the scope to have agood look at the GE junction, which looked normal from that angle and the fundus was also within normal limits.I then easily intubated the pylorus into the bulb and 2nd portion of the duodenal. This portion of the examinationwas within normal limits. Once back into the stomach, I did do 2 separate cold forceps biopsies in the antrum doug sent for H pylori testing. I also did a cold forceps biopsy of the gastric ulcer. These were all done withminimal bleeding. At this point, I ensured we had good hemostasis, which was indeed the case. The procedurewas terminated by removing insufflation using suction. The gastroscope was removed through the mouth. Thepatient tolerated the procedure very well and was returned to recovery in stable condition. [address] [place] [address] - [facility] Operative ReportPATIENT NAME: ALMA ADEN [facility]#: [id number] ACCTNUM: [id number] her findings with significant gastritis with a small gastric ulcer, I would increase her proton pump inhibitortherapy twice daily and also add Carafate therapy. I would like to re-scope her in 6 to 8 weeks time to reassessfor active peptic ulcer disease as this is a contraindication to bariatric surgery. Signed: Nando ALSTON MD 02/15/2017 10:05 EDTCD:modlD: 02/06/2017 12:37:52T: 02/06/2017 23:44:54Job #: [id number] Page 2 of 1 Normal [facility] OPERATIVE REPORT PDF Normal [facility] Surgical Tissue Examon 02-06 Surgical Tissue Exam Test performed at [place] [id number]: ALMA ADEN [id number] REQUESTING: TONY ALVAREZ MDFINAL DIAGNOSIS:A) GASTRIC ANTRUM, BIOPSIES - MILD CHRONIC GASTRITIS. NEGATIVE FORHELICOBACTER ORGANISMS. H. PYLORI IMMUNOSTAIN REVIEWED.B) GASTRIC ULCER, BIOPSIES - MILD CHRONIC GASTRITIS. ULCER IS NOTIDENTIFIED. NEGATIVE H. PYLORI IMMUNOSTAIN.This case was evaluated using a laboratory developed test (H. pylori).OPERATIVE PROCEDURE:EGDCLINICAL INFORMATION:GRD, obesity; gastritis, gastric ulcerGROSS DESCRIPTION:A) Antral biopsyThe specimen is labeled and designated Alma Aden, antral biopsy.Received in formalin, a single 0.6 cm jama fragment, submitted in totalin cassette A, levels x 3. H. pylori.B) Gastric ulcer biopsyThe specimen is labeled and designated Alma Aden, gastric ulcerbiopsy. Received in formalin, a single jama fragment, submitted intotal in cassette B. ELH:radha ADRIAN M.D., PATHOLOGIST(Electronic signature on file)Signed out: 02/07/2017 15:58PRINTED: 02/07/2017 Page 1 of 1 Normal [facility] Comment on above: Performed By: #### S URG ####[address] [address] Urine HCG, Qual.on 7 HCG.beta subunit ( test) Ql (U) Negative Normal Negative [facility] Comment on above: Performed By: #### H CGUR ####[address] [address] Specific [place], [place] 1.016 Normal 1.005-1.030 [facility] Comment on above: Performed By: #### H CGUR ####[facility] [place], [place] [address] Encounters Encounter Date Encounter Type Care Provider Facility Start: 07-04-2017 End: 07-05-2017 Ambulatory IMCA Facility:[facility] Start: 06-20-2017 Ambulatory IMCA Facility[facility] Start: 04-27-2017 End: 04-28-2017 Ambulatory IMCA [facility] Start: 04-14-[address] Luna y:[facility] Start: 04-13-2017 End: 04-14-2017 Ambulatory NO REFERRING Facility:[facility] Start: 04-03-2017 End: 04-04-2017 Ambulatory CHRISTOPHER R ANTONIO Facility:[facility] Start: 02-06-2017 End: 02-07-2017 Ambulatory CHRISTOPHER R ANTONIO Facility:[facility] Procedures Date Procedure Procedure Detail Performing Clinician Start: 02-06-2017 EGD BIOPSY SINGLE/MULTIP CHRISTOPHER ANTONIO Payers Date Payer Category Payer Policy ID Unknown [id number] Progress note 09-13-2021 Note Date & Type Note Facility 09-13-2021 Note HNO ID: [id number] Author: Flower Pinedo MD Service: ? Author Type: Physician Type: Progress Notes Filed: 09/13/2021 1:02 PM Note Text: RHEUMATOLOGY NEW PATIENT NOTE REFERRING PHYSICIAN: Self CHIEF COMPLAINT: Patient presents with: Sjogren's Disease New Patient HPI: Alma Aden is a 41 year old female who presents with positive SHAWANDA She was diagnosed with SS in 2018. Saw Justo Tenorio and then Dr. Souza. Started Plaquenil 2019 and then MTX 2021. She continues to have pain. Worsening. More pain in hands, feet. Numbness in hands. Hip pain (groin and side pain). Joints clicking. knees always hurt. She takes Advil, prednisone for pain. Pain is worse in the mornings and evenings. 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 Swelling in hands towards the end of [...] Age of Onset (more content not included)... [facility] Summary Purpose Family History No Family History Records FoundNo Family History Records FoundNo Family History Records Found Advance Directives No Advanced Directives Records FoundNo Advanced Directives Records FoundNo Advanced Directives Records Found Additional Source Comments INFORMATION SOURCE (unrecogn ized section and content) DATE CREATED AUTHOR 01/09/2018 [facility] DATE CREATED AUTHOR AUTHOR'S ORGANIZ ATION 09/14/2021 [facility] DATE CREATED AUTHOR AUTHOR'S ORGANIZ ATION 10/03/2021 [facility] FOR RECORDS PERTAINING TO PATIENTS WHO ARE [...] BE BASED ON THE PRIMARY CLINICAL RECORDS. [facility]. provides no warranty or guarantee of the accuracy or completeness of information in this document.
== END | disposition home or self-care (01) ==
LOC: MTRAD 10:35
PROVIDERS: PCP Internal Medicine; Referring Provider Student in an Organized Health Care Education/Training Program; Visit Provider Student in an Organized Health Care Education/Training Program
DX: M54.50 Low back pain, unspecified (principal)
CPT/HCPCS: 72120

== ENCOUNTER → 2024-05-27 | Outpatient (CLI) | payer OTHER, SELFPAY ==
--- NOTE | 2024-05-27 16:29 | MRI_ITS ---
STUDY: MRI LUMBAR SPINE WITHOUT CONTRAST REASON FOR EXAM: Female, 43 years old. pain into L buttock x several months TECHNIQUE: Standardized fat and water weighted pulse sequences were obtained in the sagittal and axial planes. COMPARISON: X-ray 05/09/2024 FINDINGS: T12-L1: Normal endplates. Normal disc height, hydration and morphology. Normal bilateral facet joints. Normal central canal and bilateral lateral recesses. Normal bilateral intervertebral neural foramina. Normal lumbar lordosis. There is no substantial scoliosis. Normal conus medullaris that terminates at the L1. L1-2: Normal endplates. Normal disc height, hydration and morphology. Normal bilateral facet joints. Normal central canal and bilateral lateral recesses. Normal bilateral intervertebral neural foramina. L2-3: Disc desiccation but no disc protrusion, spinal stenosis, neural foraminal stenosis. L3-4: Mild bilateral facet hypertrophy with fluid in facet joints consistent with instability and mild ligament flavum hypertrophy. Disc desiccation but no disc protrusion, spinal stenosis, neural foraminal stenosis. L4-5: Mild bilateral facet hypertrophy and mild ligament flavum hypertrophy. Disc desiccation but no disc protrusion, spinal stenosis, neural foraminal stenosis. L5-S1: Mild bilateral facet hypertrophy and ligament flavum hypertrophy. Disc desiccation but no disc protrusion, spinal stenosis, or neural foraminal stenosis. Normal visualized sacral ala. Moderate friction related edema in the posterior subcutaneous fat. MRI/Spine Lumbar (Routine) IMPRESSION: Some disc desiccation but no disc protrusion, spinal stenosis, or neural foraminal stenosis. Electronically Signed: Abad Juarez MD at 11:23 EST ,
== END | disposition home or self-care (01) ==
LOC: MRI 16:22
PROVIDERS: PCP Internal Medicine; Referring Provider Student in an Organized Health Care Education/Training Program; Visit Provider Student in an Organized Health Care Education/Training Program
DX: M43.16 Spondylolisthesis, lumbar region (principal)
CPT/HCPCS: 72148

== ENCOUNTER 2024-07-11 16:30 | Outpatient (RCR) | payer OTHER, SELFPAY ==
--- NOTE | 2024-07-03 15:13 | HP.PTEVAL ---
Patient's Visit Information Visit Information Visit Information: RAMEZ PAUL is a 43 year old F referred to Physical Therapy by ISIDRA Avendano with a diagnosis of lumbar spondylosis. Date of Evaluation: 07/02/24 Physical Therapist: Anatoliy Boudreaux DPT Visit Plan Frequency: 2x /Week Duration: 4 Weeks Plan: US to lumbar spine 3-4 visits as needed Progress neutral spine core stability, B hip strengthening Subjective Subjective: Pt. is here today for her initial evaluation with diagnosis of lumbar spondylosis. Pt. reports having increased LBP for years. No mech of injury. Pt. denies N/T in either LE. Pt. reports no changes in B/B, no saddle region pain. Pt. reports having increased pain with bending, lifting, stairs. PT. reports nothing seems to reduce symptom, its just always there. Pt. reports having some symptoms that start in her low back, but tends to extend into her B buttock region. Pain management suggested injections, waiting on insurance approval. Pt. is sleeping well, but does have increased pain with lying fully flat. Pt. is hopeful to reduce symptoms in order to get back to all recreational and work activities without limitations. Pt. did have an MRI noting disc desiccation, but no stenosis noted. Pain Lumbar spine: Pain Intensity (Out of 10): 4 Pain Intensity Range: 2 and 6 Objective Objective: POSTURE: Pt. has increased lumbar lordosis and anterior pelvic tilt. PALPATION: Pt. has pain with palpation of B lumbar spinal erector spinae. No pain with palpation of BLEs. NEURO: Pt. has normal DTR of BLEs. Pt. has normal sensation in BLEs. ROM: LUMBAR SPINE: flexion min loss increase NW, ext min loss mild increase NW, SB min loss NE, rotation min loss jennifer mild increase NW. Pt. has tight B HS. Pt. has fairly normal B hip ROM without increase in symptoms. MMT: Pt. has 5/5 strength throughout BLEs, ext 4/5 B hip strength. Pt. have poor core strength and difficulty with maintaining neutral spine during LE testing. GAIT: Pt. has decreased B UE swing. pt. has no major lateral hip sway with gait. STAIRS: Pt. is able to complete with reciprocal pattern without HR, but does have increased pain with trials. Balance/Special Test Scores Oswestry Low Back Score: 14 Goals Goal 1:: LTG: Pt. to be I with HEP. Goal Time Frame: 4-6 Weeks Goal 2:: STG: Pt. to have full lumbar ROM without increase symptoms. Goal Time Frame: 2-4 Weeks Goal 3:: LTG: Pt. to have increased core and hip strength to 5/5 and fair respectively. Goal Time Frame: 4-6 Weeks Goal 4:: LTG: Pt. to complete all work activities without increase in low back pain. Goal Time Frame: 4-6 Weeks Goal 5:: LTG: Pt. to negotiate steps with out HR with out increase in low back pain. Goal Time Frame: 4-6 Weeks Rehabilitation Potential Physical Therapy Diagnosis: Pt. has signs and symptoms consistent with lumbar spondylosis. Pt. has increased pain with all movements of spine. She does have seem to have directional preference with her spinal mobility. Pt. would benefit from PT to address the above limitations. I would like her to focus on neutral spine core stability, but we can use some modalities to reduce symptoms initially. Rehabilitation Potential: Good Anticipated Interventions Patient/Client Instruction: Educate patient on: Condition, Plan of Care, Risk Factors and Benefits of Fitness Program For the Purpose of:: To improve decision making, To facilitate caregiver knowledge, To improve self management, To prevent re-injury and To improve ability to perform tasks related to life management Therapeutic Exercise to Include: Strength training, Power training, Endurance training, Coordination, Body mechanics, Flexibilty training, Passive ROM and Active ROM For the Purpose of:: To decrease pain, To increase ROM, To improve nutrient delivery to tissue, To increase oxygenation perfusion, To improve muscle performance and motor function, To improve ability to perform ADL's, To increase tolerance to activity/condition/position, To decrease level of supervision to perform tasks, To improve gait and locomotor functions, To improve health of tissue, To decrease soft tissue restriction and To increase flexibility/ROM Cryotherapy (ice pack, ice massage): Yes Thermo therapy (hot pack): Yes Ultrasound (thermal/non thermal): Yes For the Purpose of:: To decrease pain, To decrease swelling/inflammation, To increase ROM, To improve nutrient delivery to tissue, To increase oxygenation perfusion and To improve muscle performance and motor function Text: Thank you for the opportunity to evaluate your patient. For Medicare and Medicare HMO plans, please review the plan of care and approve it. It will need to be FAXED BACK to us at [phone] for Medicare purposes. For Medicare only, by signing this I certify the plan of care. Please let me know if there are questions or concerns regarding this plan of care. Physician Signature: Date:
== END 2024-07-11 19:00 | disposition home or self-care (01) ==
LOC: PT 16:30
PROVIDERS: PCP Internal Medicine; Referring Provider Student in an Organized Health Care Education/Training Program; Visit Provider Student in an Organized Health Care Education/Training Program
DX: M43.06 Spondylolysis, lumbar region (principal)
CPT/HCPCS: 97035; 97110; 97161

== ENCOUNTER → 2024-07-23 | Outpatient (CLI) | payer OTHER, SELFPAY ==
[2024-07-23 12:19] LABS: Erythrocyte Sedimentation Rate 5 mm/hr (0-30)
[2024-07-23 12:21] LABS: Absolute Lymphocyte Count 1.81 X10^3/uL (0.83-4.51); Absolute Neutrophil Count 3.3 X10^3/uL (2.0-7.7); Basophil# 0.03 X10^3/uL; Basophil% 0.5 % (0-1); Eosinophils% 1.8 % (0-5); Hematocrit 35.1 % (37-47); Hemoglobin 11.5 g/dL (12.0-15.0); Lymphocyte # 1.81 X10^3/ul (0.83-4.51); Lymphocyte % 31.9 % (19-41); Mean Corp Hgb Conc 32.8 g/dL (32-36); Mean Corpuscular Hgb 31.4 pg (27.0-32.0); Mean Corpuscular Volume 95.9 fL (81-99); Mean Platelet Vol. 9.6 fl (6.2-12.0); Monocyte# 0.46 X10^3/uL; Monocyte% 8.1 % (0-10); NRBC Flagged by Analyzer 0 % (0-5); Neutrophil # 3.27 X10^3/uL (2.7-7.7); Neutrophil % 57.5 % (47-70); Platelet Count 329 K/mm3 (150-450); RBC Distribution Width CV 13.4 % (11.6-14.6); RBC Distribution Width SD 47.3 fl (35.1-43.9); Red Blood Count 3.66 M/mm3 (4.2-5.4); White Blood Count 5.7 K/mm3 (4.4-11.0)
[2024-07-23 12:22] LABS: AST(SGOT) 23 U/L (15-37); Alanine Aminotransfer ALT/SGPT 28 U/L (13-56); Albumin, Serum 3.8 g/dL (3.2-5.0); Alkaline Phosphatase 61 U/L (45-117); CRP 4.63 mg/L (0.0-3.0); Creatinine, Serum 0.79 mg/dL (0.55-1.02); EST Glomerular Filtration Rate 85 mL/min (>60); Est Glom Filt Rate - Afr Amer 103 mL/min (>60); Globulin 3.7 g/dL (2.2-4.2); Protein, Total 7.5 g/dL (6.4-8.2)
== END | disposition home or self-care (01) ==
LOC: BIMLAB 10:28
PROVIDERS: PCP Internal Medicine; Referring Provider Internal Medicine Rheumatology; Visit Provider Internal Medicine Rheumatology
DX: M06.09 Rheumatoid arthritis without rheumatoid factor, multiple sites (principal); Z79.899 Other long term (current) drug therapy
CPT/HCPCS: 36415; 80076; 82565; 85025; 85652; 86140

== ENCOUNTER → 2024-10-10 | Outpatient (CLI) | payer OTHER, SELFPAY ==
[2024-10-10 21:37] LABS: Hemoglobin A1c 5.9 % (<=5.6)
== END | disposition home or self-care (01) ==
PROVIDERS: PCP Internal Medicine; Referring Provider Internal Medicine; Visit Provider Internal Medicine
DX: R73.03 Prediabetes (principal)
CPT/HCPCS: 36415; 83036

== ENCOUNTER → 2024-11-07 | Outpatient (CLI) | payer OTHER, SELFPAY ==
[2024-11-07 12:57] LABS: Absolute Lymphocyte Count 1.84 X10^3/uL (0.83-4.51); Absolute Neutrophil Count 4.2 X10^3/uL (2.0-7.7); Basophil# 0.05 X10^3/uL; Basophil% 0.7 % (0-1); Eosinophil# 0.14 X10^3/uL; Eosinophils% 2.1 % (0-5); Hematocrit 36.6 % (37-47); Hemoglobin 11.9 g/dL (12.0-15.0); Lymphocyte # 1.84 X10^3/ul (0.83-4.51); Lymphocyte % 27.3 % (19-41); Mean Corp Hgb Conc 32.5 g/dL (32-36); Mean Corpuscular Hgb 31.6 pg (27.0-32.0); Mean Corpuscular Volume 97.3 fL (81-99); Mean Platelet Vol. 9.5 fl (6.2-12.0); Monocyte% 7.4 % (0-10); NRBC Flagged by Analyzer 0 % (0-5); Neutrophil # 4.17 X10^3/uL (2.7-7.7); Neutrophil % 62.1 % (47-70); Platelet Count 318 K/mm3 (150-450); RBC Distribution Width CV 12.7 % (11.6-14.6); RBC Distribution Width SD 45.2 fl (35.1-43.9); Red Blood Count 3.76 M/mm3 (4.2-5.4); White Blood Count 6.7 K/mm3 (4.4-11.0)
[2024-11-07 13:17] LABS: Erythrocyte Sedimentation Rate 8 mm/hr (0-30)
[2024-11-07 13:18] LABS: AST(SGOT) 16 U/L (<=31); Alanine Aminotransfer ALT/SGPT 18 U/L (<=34); Albumin, Serum 4.1 g/dL (3.5-5.0); Alkaline Phosphatase 63 U/L (35-104); Bilirubin, Direct 0.12 mg/dL (0.00-0.30); CRP 7.96 mg/L (0.0-3.0); EST Glomerular Filtration Rate 95 (>60); Globulin 2.3 g/dL (2.2-4.2); Protein, Total 6.4 g/dL (5.9-8.4); Total Bilirubin 0.29 mg/dL (0.00-1.30)
[2024-11-08 15:29] LABS: Thyroid Stim Hormone (TSH) 0.729 uIU/mL (0.300-4.200)
== END | disposition home or self-care (01) ==
LOC: LAB.FUTURE 11:35 → BIMLAB 11:44
PROVIDERS: Internal Medicine Endocrinology, Diabetes & Metabolism; PCP Internal Medicine; Referring Provider Internal Medicine Rheumatology; Visit Provider Internal Medicine Rheumatology
DX: M06.09 Rheumatoid arthritis without rheumatoid factor, multiple sites (principal)
CPT/HCPCS: 36415; 80076; 82565; 84439; 84443; 85025; 85652; 86140

== ENCOUNTER 2025-01-16 05:26 | Day surgery (SDC) | payer OTHER, SELFPAY ==
[2025-01-16] VITALS (8 sets, daily range): BP systolic 118–141; BP diastolic 70–102; PULSE 71–76; RESP 16–20; TEMP 35.4–36.1; O2SAT 96–100; BMI 59.5
--- OUTSIDE RECORDS SUMMARY | 2025-01-16 05:30 | XMS RPT_ITS | CCD ---
Author Organization [facility] Care Team Providers Care Quality Assurance Analyst Name Role Phone ANTONIO, CHRISTOPHER R Unavailable Unavailabl e ANTONIO, CHRISTOPHER R Unavailable Unavailabl e NO REFERRING DR Unavailable Unavailable ANTONIO, CHRISTOPHER R Unavailable Unavailabl e ANTONIO, CHRISTOPHER R Unavailable Unavailabl e NO REFERRING DR Unavailable Unavailable ANTONIO, CHRISTOPHER R Unavailable Unavailabl e NO REFERRING DR Unavailable Unavailable SLAVA BEYER Unavailable Unavailable SLAVA BEYER Unavailable Unavailable NO REFERRING DR Unavailable Unavailable SLAVA BEYER Unavailable Unavailable SLAVA BEYER Unavailable Unavailable IMCA Unavailable Unavailable IMCA Unavailable Unavailable IMCA Unavailable Unavailable IMCA Unavailable Unavailable Dr. Wyatt Marcelo Primary Care Provider [phone] Dr. Wyatt Marcelo Referring Provider [phone] Dr. Geovanni Mendiola Attending Provider ISIDRA Herman Attending Provider UnavailDr. Cali Sorto Attending Provider Nisa MERRITT, ZAFAR Cavazos Attending Provider [phone] Dr. Wyatt Marcelo Primary Care Provider [phone] Dr. Wyatt Marcelo Referring Provider [phone] ISIDRA Herman Attending Provider UnavailDr. Wyatt Romero Primary Care Provider [phone] Dr. Wyatt Marcelo Referring Provider [phone] ISIDRA Saeed Attending Provider Dr. Wyatt Marcelo Primary Care Provider [phone]) Dr. Wyatt Marcelo Referring Provider [phone] Dr. Wyatt Marcelo Primary Care Provider [phone] 0) Dr. Wyatt Marcelo Referring Provider [phone] ISIDRA Herman Attending Provider Unavailab Dr. Wyatt Betts Primary Care Provider [phone] 0) Dr. Wyatt Marcelo Referring Provider [phone] ISIDRA Herman Attending Provider UnavailDr. Cali Sorto Attending Provider Nisa INDUSTRIAL NURSE, INDUSTRIAL NURSE-C Dirk Attending Provider [phone] Dr. Wyatt Marcelo Attending Provider [phone] Candice Lopez Attending Provider Unavailable Ivonne INDUSTRIAL NURSE, INDUSTRIAL NURSE-C Laine Attending Provider [phone] Dr. Wyatt Marcelo Primary Care Provider [phone] [phone]) Dr. Wyatt Marcelo Referring Provider [phone] Dr. Juan R Arredondo Attending Provider Dr. Cali Lou Referring Provider Dr. Wyatt Marcelo Primary Care Provider [phone] 0) Dr. Wyatt Marcelo Referring Provider [phone] Dr. Wyatt Marcelo Primary Care Provider 1(33 0) Dr. Wyatt Marcelo Referring Provider [phone] Nisa INDUSTRIAL NURSE, INDUSTRIAL NURSE-C Dirk Attending Provider [phone]) Dr. Geovanni Mendiola Attending Provider Dr. Wyatt Marcelo Primary Care Provider [phone] 0) Dr. Wyatt Marcelo Attending Provider [phone] Dr. Wyatt Marcelo Referring Provider [phone] SCOTT Meyer Attending Provider Unavailable Dr. Wyatt Marcelo Primary Care Provider [phone]) Oleghe, Dr. Schneider Attending Provider [phone] Davian, Dr. Schneider Referring Provider [phone] Davian, Dr. Schneider Primary Care Provider [phone] 0) Davian, Dr. Schneider Referring Provider [phone] Davian, Dr. Schneider Attending Provider [phone] Dr. Gay Koengi Attending Provider [phone]) Olemai, Dr. Schneider Primary Care Provider 1(33 0) SCOTT Meyer Attending Provider Unavailable Davian, Dr. Schneider Attending Provider [phone] Davian, Dr. Schneider Referring Provider [phone] Dr. Gay Koenig Attending Provider [phone]) Davian, Dr. Schneider Primary Care Provider 1(33 0) Olemai, Dr. Schneider Primary Care Provider [phone] [phone]) Davian, Dr. Schneider Referring Provider [phone] ZAFAR Bangura Attending Provider [phone] ISIDRA Yuan Attending Provider Davian CAMILO, Dr. Schneider Primary Care Provider Nimco Medina Attending Provider [phone] Nimco Medina Referring Provider [phone] STEVEN BOLES MD Attending Provider [phone] STEVEN BOLES MD Referring Provider Dr. Wyatt Marcelo MD Referring Provider [phone]) Corie Murray Attending Provider Davian CAMILO, Dr. Schneider Attending Provider [phone] Davian CAMILO, Dr. Schneider Primary Care Provider Davian CAMILO Dr. Schneider Primary Care Provider STEVEN BOLES MD Attending Provider RAMANA CAMILO, STEVEN Referring Provider Irma Valentin Attending Provider Davian CAMILO, Dr. Schneider Primary Care Provider Davian CAMILO, Dr. Schneider Referring Provider [phone] King LESLEE, Dr. Leiva Attending Provider Oleghe, Efewongbe Primary Care Unavailable Oleghe, Efewongbe Referring Unavailable Corie Tan Attending Unavailable Oleghe, Efewongbe Attending Unavailable Oleghe, Efewongbe Primary Care Unavailable Oleghe, Efewongbe Referring Unavailable Karl Lopez Attending Unavailable Oleghe, Efewongbe Referring Unavailable Oleghe, Efewongbe Primary Care Unavailable Lisa Nimco Attending Unavailable Oleghe, Efewongbe Primary Care Unavailable Oleghe, Efewongbe Referring Unavailable Oleghe, Efewongbe Primary Care Unavailable DANITA GARVIN Attending Unavailable Oleghe, Efewongbe Primary Care Unavailable RAMANA STEVEN Referring Unavailable BIELAWSSTEVEN CARDOSO Attending Unavailable Oleghe, Efewongbe Primary Care Unavailable BIGT REYESN Referring Unavailable BIELAWSGT CARDOSON Attending Unavailable Lisa, Nimco Referring Unavailable Oleghe, Efewongbe Primary Care Unavailable Lisa Nimco Attending Unavailable Oleghe, Efewongbe Attending Unavailable Oleghe, Efewongbe Primary Care Unavailable Oleghe, Efewongbe Attending Unavailable Oleghe, Efewongbe Primary Care Unavailable Oleghe, Efewongbe Referring Unavailable Oleghe, Efewongbe Primary Care Unavailable BILAVELLEWSKI STEVEN Referring Unavailable BIGT REYESN Attending Unavailable Oleghe, Efewongbe Primary Care Unavailable Cali Lou Attending Unavailable Oleghe, Efewongbe Attending Unavailable Oleghe, Efewongbe Primary Care Unavailable Oleghe, Efewongbe Referring Unavailable Lisa, Nimco Referring Unavailable Lisa, Nimco Attending Unavailable Oleghe, Efewongbe Primary Care Unavailable Estrellita Coleman Referring Unavailable Estrellita Coleman Attending Unavailable Oleghe, Efewongbe Primary Care Unavailable LisaNimco Attending Unavailable Lisa Nimco Referring Unavailable Oleghe, Efewongbe Primary Care Unavailable Assessment, Health Risk Referring Unavaila ble Assessment, Health Risk Attending Unavaila ble Oleghe, Efewongbe Primary Care Unavailable Hammad Loaiza Attending Unavailable Lisa, Nimco Referring Unavailable LisaYashyn Attending Unavailable Oleghe, Efewongbe Primary Care Unavailable Lucio Bell Attending Unavailable Oleghe, Efewongbe Primary Care Unavailable Estrellita Coleman Referring Unavailable Estrellita Coleman Attending Unavailable Oleghe, Efewongbe Primary Care Unavailable Oleghe, Efewongbe Referring Unavailable Irma Delaney Attending Unavailable Oleghe, Efewongbe Primary Care Unavailable Oleghe, Efewongbe Referring Unavailable Cali Lou Attending Unavailable Estrellita Coleman Attending Unavailable Oleghe, Efewongbe Referring Unavailable Oleghe, Efewongbe Primary Care Unavailable Liliana Bangura Attending Unavailable Oleghe, Efewongbe Primary Care Unavailable Oleghe, Efewongbe Referring Unavailable Allergies Allergy Classification Reported Allergen(s) Allergy Type Date of Onset Reaction(s) Facility (20 sources) escitalopram; Translations: [ESCITALOPRAM] Drug Allergy 2 Other [facility] Repository Comment on above: HEADACHE (1 source) penicillin; Translations: [PENICILLIN] Drug Allergy [facility] Repository (1 source) Penicillins; Translations: [PENICILLINS] Propensity to adverse reactions (disorder) [facility] Repository (20 sources) Latex Allergy to substance 2 Rash [facility] (20 sources) Penicillin G Drug Allergy 2 Other [facility] (9 sources) SUMAtriptan Drug Allergy 3 headache [facility] (1 source) Latex Drug allergy (disorder) 5 [facility] Repository (1 source) Penicillin Drug Allergy 5 [facility] Repository (1 source) SUMAtriptan Drug Allergy 5 [facility] Repository Medications Current Medications Medication Drug Class(es) Dates Sig (Normalized) Sig (Original) Compress.Stocking,K nee,Reg,Lrg (20 sources) Start: 03-12-2019 Compress.Stocking,Kne e,Reg,Lrg Active 0 .ROUTE .MEDSUPPLY 2 March 12, 2019 5:31pm wear daily for venous insufficiency 20-30 mmHg Start: 03-12-2019 End: 12-05-2022 Compress.Stocking,Knee,Reg,L rg Discontinued 0 .ROUTE .MEDSUPPLY 2 March 11, 2019 11:00pm December 05, 2022 7:14am wear daily for venous insufficiency 20-30 mmHg Start: 03-12-2019 End: 12-05-2022 Compress.Stocking,Knee,Reg,L rg Discontinued 0 .ROUTE .MEDSUPPLY 2 March 12, 2019 12:00am December 05, 2022 8:14am wear daily for venous insufficiency 20-30 mmHg Start: 03-12-2019 Compress.Stock ing,Knee,Reg,Lrg Active 0 .ROUTE .MEDSUPPLY 2 March 11, 2019 11:00pm wear daily for venous insufficiency 20-30 mmHg Start: 03-12-2019 Compress.Stock ing,Knee,Reg,Lrg Active 0 .ROUTE .MEDSUPPLY 2 March 12, 2019 12:00am wear daily for venous insufficiency 20-30 mmHg ferrous sulfate 325 mg oral tablet (20 sources) Start: 12-16-2019 take 1 tablet by mouth once daily Ferrous Sulfate (Ferosul) 325 mg (65 mg iron) tablet Active 325 mg PO DAILY December 16, 2019 12:00am Insulin Syringe Needleless (2 sources) Start: 10-10-2023 Insulin Syring e Needleless Active 0 .Route October 10, 2023 12:00am As directed levothyroxine sodium 0.15 mg oral tablet (20 sources) l-Thyroxi ne Start: 11-14-2023 End: 10-15-2024 take 1 tablet by mouth every other week Levothyroxine 150 mcg tablet Active 150 ug PO .5 days per week October 15, 2024 4:47pm Start: 08-19-2021 End: 11-14-2023 take 1 tablet by mouth once daily Levothyroxine 150 mcg tablet Discontinued 150 ug PO DAILY August 15, 2022 12:51pm November 14, 2023 9:53am Start: 04-30-2018 End: 08-19-2021 take 1 tablet by mouth once daily Levothyroxine 75 mcg tablet Discontinued 75 ug PO DAILY January 12, 2021 11:16am August 19, 2021 12:59pm mecobalamin 1 mg chewable tablet (4 sources) Start: 11-14-2023 take 1 tablet by mouth once daily Mecobalamin (Vitamin B12) 1,000 mcg tablet,chewable Active 1000 ug PO DAILY November 14, 2023 12:00am melatonin 3 mg oral capsule (4 sources) Start: 11-14-2023 take 1 capsule by mouth at bedtime as needed Melatonin 3 mg capsule Active 3 mg PO BEDTIME as needed November 14, 2023 12:00am 24 hr metFORMIN hydrochloride 500 mg extended release oral tablet (2 sources) Biguanide Start: 11-29-2024 take 1 tablet by mouth twice daily Metformin (Glucophage Xr) 500 mg tablet extended release 24 hr Active 500 mg PO TWICE A DAY November 29, 2024 12:00am Methotrexate 2 mg/mL solution (4 sources) Start: 08-31-2024 take 2.5 mg by mouth every week Methotrexate 2 mg/mL solution Active 2.5 mg PO EVERY WEEK August 31, 2024 1:00am predniSONE 10 mg oral tablet (20 sources) Start: 04-25-2024 take 1 tablet by mouth once daily as needed for arthritis Prednisone 10 mg tablet Active 10 mg PO DAILY as needed for Arthritis April 25, 2024 5:25pm Start: 02-06-2024 End: 03-20-2024 Prednisone 5 mg tablets,dose pack Discontinued 0 PO per package directions February 06, 2024 12:00am March 20, 2024 9:37am PO PER PKG DIR Start: 07-01-2022 End: 04-25-2024 take 4 tablets by mouth once daily as needed for arthritis Prednisone 10 mg tablet Discontinued 10 mg PO DAILY as needed for Arthritis June 05, 2023 12:00pm April 25, 2024 5:25pm Take 4 tablets for 3 days; Take 3 tablets for 3 days; Take 2 tablets for 3 days; Take 1 tablet for 3 days Take with food or milk Start: 05-21-2021 End: 08-19-2021 take 1 tablet by mouth once daily Prednisone 10 mg tablet Discontinued 10 mg PO DAILY May 21, 2021 12:00am August 19, 2021 12:42pm Start: 09-16-2019 End: 11-05-2019 Prednisone Discontinued 0 PO per package directions September 16, 2019 12:13pm November 05, 2019 8:50am PO PER PKG DIR Start: 09-16-2019 End: 11-05-2019 Prednisone 10 mg tablets,dos e pack Discontinued 0 PO per package directions September 16, 2019 1:00am November 05, 2019 8:50am PO PER PKG DIR Start: 09-16-2019 End: 11-05-2019 Prednisone Discontinued 0 PO per package directions September 16, 2019 12:00am November 05, 2019 7:50am PO PER PKG DIR Start: 09-16-2019 End: 11-05-2019 Prednisone Discontinued 0 PO per package directions September 16, 2019 1:00am November 05, 2019 8:50am PO PER PKG DIR Start: 07-20-2019 End: 09-16-2019 Prednisone 10 mg tablet Discontinued 10 mg PO .COMPLEX July 20, 2019 1:00am September 16, 2019 12:14pm 10 mg PO Take 4 pills for 3 days, take 3 pills for 3 days, take 2 pills for 3 days, take 1 pill for 3 days,; 24 hr upadacitinib 15 mg extended release oral tablet (4 sources) Start: 11-14-2023 take 1 tablet by mouth once daily Upadacitinib (Rinvoq) 15 mg tablet extended release 24 hr Active 15 mg PO DAILY November 14, 2023 12:00am Completed/Discontinued Medications Medication Drug Class(es) Dates Sig (Normalized) Sig (Original) acetaminophen 325 mg / oxyCODONE hydrochloride 5 mg oral tablet (20 sources) Opioid Agonist Start: 06-21-2018 End: 06-26-2018 Oxycodone-Acetamino phen 1 TABLET tablet Discontinued 1 - 2 {tbl} PO EVERY 4 HOURS NEEDED as needed for Pain 13 12June 21, 2018 1:00am June 25, 2018 1:00am June 26, 2018 1:09am Start: 06-21-2018 End: 06-26-2018 take 1 tablet by mouth every four hours as needed Oxycodone-Acetaminophen Discontinued 1 - 2 TABLET PO EVERY 4 HOURS NEEDED 30 June 21, 2018 1:00am June 26, 2018 1:09am [id number] 200 actuat albuterol 0.09 mg/actuat metered dose inhaler (20 sources) beta2-Adrenergic Agonist Start: 09-01-2022 End: 12-05-2022 Albuterol Sulfate (Proair Hfa) 90 mcg/actuation HFA aerosol inhaler Discontinued 1 - 2 NMA INHALATION EVERY 6 HOURS as needed for shortness of breath or wheezing 8.5 September 01, 2022 1:00am December 05, 2022 8:14am Start: 09-01-2022 End: 12-05-2022 take 1 puff(s) by inhalation every six hours Albuterol Sulfate (Proair Hfa) 90 mcg/actuation HFA aerosol inhaler Discontinued 1 - 2 PUFF INHALATION EVERY 6 HOURS 8.September 01, 2022 1:00am December 05, 2022 8:14am Start: 09-16-2019 End: 09-15-2020 Albuterol Sulfate 90 mcg/act uation HFA aerosol inhaler Discontinued 2 NMA INHALATION EVERY 6 HOURS as needed for shortness of breath or wheezing 8.September 16, 2019 1:00am September 15, 2020 10:04am Start: 09-16-2019 End: 09-15-2020 take 1 puff(s) by inhalation every six hours Albuterol Sulfate Discontinued 2 PUFF INHALATION EVERY 6 HOURS 8.September 16, 2019 1:00am September 15, 2020 10:04am ALPRAZolam 0.25 mg oral tablet (20 sources) Benzodiazepine Start: 09-14-2017 End: 04-25-2024 take 1 tablet by mouth once daily as needed for anxiety Alprazolam (Xanax) 0.25 mg tablet Discontinued 0.25 mg PO DAILY NEEDED as needed for Anxiety September 01, 2022 2:26pm September 29, 2022 9:25am amLODIPine 5 mg oral tablet (20 sources) Dihydropyridine Calcium Channel Oswaldo Start: 12-19-2019 End: 10-08-2021 take 1 tablet by mouth once daily Amlodipine 5 mg tablet Discontinued 5 mg PO DAILY February 20, 2020 2:19pm February 15, 2021 1:15pm azithromycin 250 mg oral tablet (20 sources) Macrolide Antimicrobial Start: 09-12-2019 End: 12-16-2019 Azithromycin 250 mg tablet Discontinued 0 PO .COMPLEX 6 September 12, 2019 1:00am December 16, 2019 9:32am Take two tablets by mouth on day one then one tablet by mouth on days 2-5 Start: 07-18-2018 End: 02-21-2019 Azithromycin 250 mg tablet D iscontinued 250 mg PO daily July 18, 2018 1:00am February 21, 2019 11:59am 2 tablets today, then 1 tablet daily on days 2 through 5 benzonatate 100 mg oral capsule (20 sources) Non-narcotic Antitussive Start: 02-06-2024 End: 04-25-2024 Benzonatate 100 mg capsule Discontinued 100 mg PO 2 to 3 times per day as needed for cough 60 February 06, 2024 12:00am April 25, 2024 5:01pm Start: 09-05-2019 End: 12-16-2019 take 1 capsule by mouth three times daily as needed for cough Benzonatate (Tessalon Perles) 100 mg capsule Discontinued 100 mg PO THREE TIMES A DAY as needed for cough 30 September 05, 2019 1:00am December 16, 2019 9:32am bisacodyl 5 mg delayed release oral tablet (20 sources) Stimulant Laxative Start: 05-06-2021 End: 07-01-2022 take 1 tablet by mouth once Bisacodyl 5 mg tablet Discontinued 5 mg PO ONCE 4 May 06, 2021 12:00am July 01, 2022 3:57pm Take as directed for bowel prep busPIRone hydrochloride 5 mg oral tablet (20 sources) Start: 03-31-2020 End: 02-15-2021 take 1 tablet by mouth twice daily Buspirone 5 mg tablet Discontinued 5 mg PO TWICE A DAY 60 March 31, 2020 12:00am February 15, 2021 12:58pm Carboxymethylcellulo se-Citric (Plenity) 0.75 gram capsule (20 sources) Start: 11-23-2021 End: 02-21-2022 take 1 capsule by mouth twice daily before lunch Carboxymethylcellu lose-Citric (Plenity) 0.75 gram capsule Discontinued 3 NMA PO TWICE A DAY 540 90 November 23, 2021 9:19am February 20, 2022 12:00am February 21, 2022 12:03am administer before lunch and evening meal/dinner Start: 11-23-2021 End: 02-21-2022 Carboxymethylcellulose-Citri c (Plenity) 0.75 gram capsule Discontinued 3 CAP PO TWICE A DAY 540 November 23, 2021 8:19am February 20, 2022 11:03pm administer before lunch and evening meal/dinner Start: 11-23-2021 End: 02-21-2022 Carboxymethylcellulose-Citri c (Plenity) 0.75 gram capsule Discontinued 3 CAP PO TWICE A DAY 540 November 23, 2021 9:19am February 21, 2022 12:03am administer before lunch and evening meal/dinner Start: 11-23-2021 Carboxymethylc ellulose-Citric (Plenity) 0.75 gram capsule Active 3 CAP PO TWICE A DAY 540 November 23, 2021 9:19am administer before lunch and evening meal/dinner Start: 11-22-2021 End: 11-23-2021 take 1 capsule by mouth twice daily before lunch Carboxymethylcellulose-Citric (Plenity) 0.75 gram capsule Discontinued 3 NMA PO TWICE A DAY 540 November 22, 2021 12:00am February 19, 2022 12:00am November 23, 2021 9:20am administer before lunch and evening meal/dinner Start: 11-22-2021 End: 11-23-2021 Carboxymethylcellulose-Citri c (Plenity) 0.75 gram capsule Discontinued 3 CAP PO TWICE A DAY 540 November 21, 2021 11:00pm November 23, 2021 8:20am administer before lunch and evening meal/dinner Start: 11-22-2021 End: 11-23-2021 Carboxymethylcellulose-Citri c (Plenity) 0.75 gram capsule Discontinued 3 CAP PO TWICE A DAY 540 November 22, 2021 12:00am November 23, 2021 9:20am administer before lunch and evening meal/dinner cefuroxime 500 mg oral tablet (16 sources) Cephalosporin Antibacterial Start: 12-05-2022 End: 03-10-2023 take 1 tablet by mouth every twelve hours Cefuroxime Axetil 500 mg tablet Discontinued 500 mg PO Q12H December 05, 2022 12:00am March 10, 2023 4:01pm cholecalciferol 0.05 mg oral capsule (20 sources) Vitamin D Start: 10-30-2017 End: 02-21-2019 take 1 capsule by mouth once daily Cholecalciferol (Vitamin D3) 2,000 unit capsule Discontinued 2000 U PO daily October 30, 2017 12:00am February 21, 2019 11:59am clindamycin 300 mg oral capsule (20 sources) Lincosamide Antibacterial Start: 10-24-2020 End: 12-31-2020 take 1 capsule by mouth three times daily Clindamycin Hcl 300 mg capsule Discontinued 300 mg PO THREE TIMES A DAY October 24, 2020 12:00am December 31, 2020 8:33am codeine phosphate 2 mg/ml / guaiFENesin 20 mg/ml oral solution (20 sources) Opioid Agonist Start: 09-05-2019 End: 03-31-2020 take 1 mL by mouth every six hours as needed for cough Codeine-Guaifenesin 10-100 mg/5 mL liquid Discontinued 5 mL PO EVERY 6 HOURS as needed for cough 120 September 05, 2019 1:00am March 31, 2020 1:22pm Start: 09-05-2019 End: 03-31-2020 take 1 mL by mouth every six hours Codeine-Guaifenesin Discontinued 5 ML PO EVERY 6 HOURS 120 September 05, 2019 1:00am March 31, 2020 1:22pm Compress.Stocking,Knee,Reg,L rg misc (4 sources) Start: 03-12-2019 End: 12-05-2022 Compress.Stocking,Knee,Reg,L rg misc Discontinued 0 .ROUTE .MEDSUPPLY 2 March 12, 2019 12:00am December 05, 2022 8:14am wear daily for venous insufficiency 20-30 mmHg cyclobenzaprine hydrochlorid e 5 mg oral tablet (10 sources) Muscle Relaxa nt Start: 04-26-2023 End: 11-14-2023 take 1 tablet by mouth twice daily as needed for pain Cyclobenzaprine 5 mg tablet Discontinued 5 mg PO TWICE A DAY as needed for pain April 26, 2023 12:00am November 14, 2023 9:24am dexamethasone 6 mg oral tabl et (20 sources) Cortic ostero id Start: 02-10-2022 End: 07-01-2022 take 1 tablet by mouth once daily Dexamethasone (Decadron) 6 mg tablet Discontinued 6 mg PO DAILY 5 February 10, 2022 12:00am July 01, 2022 3:56pm doxycycline monohydrate 100 mg oral capsule (20 sources) [facility] ycline -class Drug Start: 08-31-2024 End: 09-05-2024 take 1 capsul e by mouth twice daily Doxycycline Monohydrate 100 mg capsule Discontinued 100 mg PO TWICE A DAY 10 August 31, 2024 1:00am September 04, 2024 1:00am September 05, 2024 1:09am Start: 02-06-2024 End: 03-20-2024 take 1 capsule by mouth twice daily Doxycycline Hyclate 100 mg capsule Discontinued 100 mg PO TWICE A DAY February 06, 2024 12:00am March 20, 2024 9:37am Start: 10-12-2023 End: 10-22-2023 take 1 capsule by mouth twice daily Doxycycline Hyclate 100 mg capsule Discontinued 100 mg PO TWICE A DAY 05 05October 12, 2023 12:00am October 21, 2023 12:00am October 12, 2023 5:16pm Start: 09-01-2022 End: 10-19-2022 take 1 tablet by mouth twice daily Doxycycline Monohydrate 100 mg tablet Discontinued 100 mg PO TWICE A DAY September 01, 2022 1:00am October 19, 2022 1:58pm Start: 05-24-2019 End: 07-20-2019 take 1 tablet by mouth twice daily Doxycycline Hyclate 100 mg tablet Discontinued 100 mg PO TWICE A DAY 14 May 24, 2019 1:00am July 20, 2019 2:55pm 0.5 ml dulaglutide 3 mg/ml auto-injector (20 sources) GLP-1 Receptor Agonist Start: 04-04-2022 End: 08-15-2022 Dulaglutide (Trulicity) 1.5 mg/0.5 mL pen injector Discontinued 1.5 mg SC EVERY WEEK 2 April 04, 2022 12:00am August 15, 2022 12:51pm Start: 11-26-2021 End: 04-04-2022 Dulaglutide (Trulicity) 0.75 mg/0.5 mL pen injector Discontinued 0.75 mg SC EVERY WEEK 2 November 26, 2021 12:00am April 04, 2022 11:02am DULoxetine 60 mg delayed release oral capsule (20 sources) Serotonin and Norepinephrine Reuptake Inhibitor Start: 10-03-2023 End: 09-05-2024 take 1 capsule by mouth once daily Duloxetine 30 mg capsule,delayed release(DR/EC) Discontinued 30 mg PO DAILY March 07, 2024 8:55am September 05, 2024 4:10pm Start: 09-14-2017 End: 12-03-2024 take 1 capsule by mouth once daily Duloxetine (Cymbalta) 60 mg capsule,delayed release(DR/EC) Discontinued 60 mg PO daily June 10, 2024 5:31pm December 03, 2024 2:32pm 1 ml erenumab-aooe 70 mg/ml auto-injector (20 sources) Start: 03-12-2019 End: 12-16-2019 Erenumab-Aooe (Aimovig Autoinjector) 70 mg/mL auto-injector Discontinued 70 mg SC EVERY MONTH March 12, 2019 12:00am December 16, 2019 9:32am esomeprazole 40 mg delayed release oral capsule (20 sources) Proton Pump Inhibitor Start: 05-07-2018 End: 06-17-2019 take 1 capsule by mouth once daily Esomeprazole Magnesium (Nexium) 40 mg capsule,delayed release(DR/EC) Discontinued 40 mg PO DAILY March 12, 2019 9:15am June 17, 2019 4:33pm 1 ml etanercept 50 mg/ml prefilled syringe (20 sources) Tumor Necrosis Factor Oswaldo Start: 08-15-2022 End: 11-14-2023 Etanercept (Enbrel) 50 mg/mL (1 mL) syringe Discontinued 50 mg SC EVERY WEEK August 15, 2022 1:00am November 14, 2023 9:24am ferrous fumarate 325 mg oral tablet (20 sources) Start: 04-05-2018 End: 02-21-2019 take 1 tablet by mouth twice daily Ferrous Fumarate (Ferretts) 325 mg (106 mg iron) tablet Discontinued 325 mg PO TWICE A DAY April 05, 2018 12:00am February 21, 2019 11:59am folic acid 1 mg oral tablet (20 sources) Start: 05-06-2021 End: 12-15-2023 take 2 tablets by mouth once daily Folic Acid 1 mg Tablet Discontinued 2 mg PO DAILY May 06, 2021 12:00am December 15, 2023 8:49am Start: 05-06-2021 take 2 mg by mouth once daily Folic Acid Active 2 MG PO DAILY May 06, 2021 12:00am hydroCHLOROthiazide 25 mg oral tablet (20 sources) Thiazide Diuretic Start: 11-22-2021 End: 11-04-2022 take 1 tablet by mouth once daily Hydrochlorothiazide 25 mg tablet Discontinued 25 mg PO DAILY November 22, 2021 9:06am November 04, 2022 8:03am Start: 10-08-2021 End: 11-22-2021 take 1 tablet by mouth once daily in the morning Hydrochlorothiazide 12.5 mg tablet Discontinued 12.5 mg PO EVERY MORNING October 08, 2021 12:00am November 22, 2021 8:52am hydroxychloroquine sulfate 200 mg oral tablet (20 sources) Antimalarial, Antirheumatic Agent Start: 08-20-2020 End: 10-19-2022 take 1 tablet by mouth twice daily Hydroxychloroquine (Plaquenil) 200 mg tablet Discontinued 200 mg PO TWICE A DAY August 20, 2020 1:00am October 19, 2022 1:58pm Insulin Syringe Needleless 1 mL syringe (4 sources) Start: 10-10-2023 End: 03-20-2024 Insulin Syringe Needleless 1 mL syringe Discontinued 0 .Route October 10, 2023 12:00am March 20, 2024 9:38am As directed losartan potassium 100 mg oral tablet (20 sources) Angiotensin 2 Receptor Oswaldo Start: 03-10-2023 End: 10-14-2024 take 1 tablet by mouth once daily Losartan 100 mg tablet Discontinued 100 mg PO DAILY March 27, 2023 4:12pm April 25, 2024 5:25pm Start: 02-14-2023 End: 03-10-2023 take 2 tablets by mouth once daily Losartan 50 mg tablet Discontinued 100 mg PO DAILY February 14, 2023 5:17pm March 10, 2023 4:04pm Start: 02-14-2023 End: 03-10-2023 take 100 mg by mouth once daily Losartan Discontinued 100 MG PO DAILY February 14, 2023 5:17pm March 10, 2023 4:04pm Start: 11-30-2022 End: 02-14-2023 take 3 tablets by mouth once daily Losartan 25 mg tablet Discontinued 25 mg PO DAILY November 30, 2022 12:00am February 14, 2023 5:17pm take in conjunction to equal 75 mg of losartan daily Start: 11-30-2022 End: 02-14-2023 take 75 mg by mouth once daily Losartan Discontinued 2 5 MG PO DAILY November 30, 2022 12:00am February 14, 2023 5:17pm take in conjunction to equal 75 mg of losartan daily Start: 11-04-2022 End: 02-14-2023 take 1 tablet by mouth once daily Losartan 50 mg tablet Discontinued 50 mg PO DAILY November 04, 2022 12:00am February 14, 2023 5:17pm magnesium oxide 400 mg oral capsule (20 sources) Start: 09-14-2017 End: 08-15-2022 take 1 capsule by mouth once daily Magnesium Oxide 400 mg capsule Discontinued 400 mg PO daily September 14, 2017 1:00am August 15, 2022 12:35pm meloxicam 15 mg oral tablet (20 sources) Nonsteroidal Anti-inflammatory Drug Start: 12-16-2019 End: 12-31-2020 take 1 tablet by mouth once daily as needed Meloxicam 15 mg tablet Discontinued 15 mg PO DAILY as needed September 15, 2020 10:05am December 31, 2020 8:33am methotrexate 25 mg/ml injectable solution (20 sources) Folate Analog Metabolic Inhibitor Start: 12-31-2020 End: 12-15-2023 Methotrexate Sodium 25 mg/mL solution Discontinued 17.5 mg SC EVERY WEEK December 31, 2020 8:06am December 15, 2023 8:49am Start: 12-31-2020 Methotrexate S odium Active 17.5 MG SC EVERY WEEK December 31, 2020 8:06am Start: 10-26-2020 End: 12-31-2020 Methotrexate Sodium 25 mg/mL solution Discontinued 25 mg SC ONCE October 26, 2020 12:00am December 31, 2020 8:07am Start: 10-26-2020 End: 12-31-2020 Methotrexate Sodium Disconti nued 25 MG SC ONCE October 26, 2020 12:00am December 31, 2020 8:07am methylPREDNISolone 4 mg oral tablet (20 sources) Corticosteroid Start: 03-10-2023 End: 03-10-2023 take 1 tablet by mouth once Methylprednisolone (Medrol (Jarad)) 4 mg tablets,dose pack Discontinued 0 PO per package directions March 10, 2023 12:00am March 10, 2023 4:17pm PO PER PKG DIR Start: 09-01-2022 End: 09-29-2022 take 1 tablet by mouth once Methylprednisolone (Medrol (Jarad)) 4 mg tablets,dose pack Discontinued 0 PO per package directions September 01, 2022 1:00am September 29, 2022 8:58am PO PER PKG DIR Start: 09-05-2019 End: 09-16-2019 take 1 tablet by mouth once Methylprednisolone (Medrol (Jarad)) 4 mg tablets,dose pack Discontinued 0 PO per package directions September 05, 2019 1:00am September 16, 2019 12:11pm PO PER PKG DIR metroNIDAZOLE 500 mg oral tablet (16 sources) Nitroimidazole Antimicrobial Start: 12-05-2022 End: 03-10-2023 take 1 tablet by mouth three times daily Metronidazole 500 mg tablet Discontinued 500 mg PO THREE TIMES A DAY December 05, 2022 12:00am March 10, 2023 4:02pm mupirocin 0.02 mg/mg topical ointment (20 sources) RNA Synthetase Inhibitor Antibacterial Start: 09-29-2022 End: 10-19-2022 Mupirocin 2 % ointment Discontinued 1 NMA TOPICAL NEEDED as needed for Rash September 29, 2022 9:23am October 19, 2022 1:58pm Start: 10-26-2020 End: 10-19-2022 Mupirocin 2 % ointment Disco ntinued 1 NMA TOPICAL NEEDED as needed for Rash May 06, 2021 11:33am September 29, 2022 9:25am ondansetron 4 mg disintegrating oral tablet (9 sources) Serotonin-3 Receptor Antagonist Start: 06-11-2023 End: 10-03-2023 take 1 tablet by mouth every eight hours as needed for nausea Ondansetron 4 mg tablet,disintegrating Discontinued 4 mg PO EVERY 8 HOURS NEEDED as needed for Nausea June 11, 2023 1:00am October 03, 2023 8:35am pantoprazole 40 mg delayed release oral tablet (20 sources) Proton Pump Inhibitor Start: 09-14-2017 End: 04-05-2018 take 1 tablet by mouth once daily in the morning Pantoprazole (Protonix) 40 mg tablet,delayed release (DR/EC) Discontinued 40 mg PO EVERY MORNING September 14, 2017 1:00am April 05, 2018 2:21pm phentermine hydrochloride 30 mg oral capsule (20 sources) Sympathomimetic Amine Anorectic Start: 05-31-2021 End: 11-22-2021 take 1 capsule by mouth once daily 2 hour(s) after breakfast Phentermine 30 mg capsule Discontinued 30 mg PO DAILY May 31, 2021 1:00am November 22, 2021 8:52am must administer 2 hours after breakfast BMI 50 polyethylene glycol 3350 58199 mg powder for oral solution (20 sources) Osmotic Laxative Start: 05-06-2021 End: 11-22-2021 take 17 g by mouth once daily Polyethylene Glycol 3350 17 gram/dose powder Discontinued 17 g PO DAILY May 06, 2021 12:00am November 22, 2021 8:53am Take as directed for bowel prep. promethazine hydrochloride 25 mg oral tablet (20 sources) Phenothiazine Start: 03-29-2021 End: 08-19-2021 take 12.5-25 mg by mouth every six hours as needed for nausea Promethazine 25 mg tablet Discontinued 12.5 - 25 mg PO EVERY 6 HOURS as needed for nausea March 29, 2021 12:00am August 19, 2021 12:42pm rimegepant 75 mg disintegrating oral tablet (20 sources) Start: 12-31-2020 End: 02-15-2021 take 1 tablet by mouth every other day as needed for headache Rimegepant (Nurtec Odt) 75 mg tablet,disintegrating Discontinued 0 .ROUTE .COMPLEX December 31, 2020 9:32am February 15, 2021 12:58pm Take one tablet po every other day; 1 tablet po daily as needed for headache can be taken on days a scheduled dose has not already been taken Semaglutide (3 sources) Start: 10-03-2023 End: 10-03-2023 Semaglutide Discontinued 0.25 MG SC EVERY WEEK October 03, 2023 12:00am October 03, 2023 9:03am for 4 weeks Semaglutide (7 sources) Start: 10-03-2023 End: 10-03-2023 Semaglutide 0.25 mg or 0.5 mg (2 mg/3 mL) pen injector Discontinued 0.25 mg SC EVERY WEEK 3 October 03, 2023 9:00am October 03, 2023 9:43am for 4 weeks Start: 10-03-2023 End: 10-03-2023 Semaglutide Discontinued 0.2 5 MG SC EVERY WEEK 3 October 03, 2023 9:00am October 03, 2023 9:43am for 4 weeks Semaglutide (Weight Loss) (7 sources) Start: 10-03-2023 End: 03-20-2024 Semaglutide (Weight Loss) (W egovy) 0.25 mg/0.5 mL pen injector Discontinued 0.25 mg SC EVERY WEEK 2 October 03, 2023 12:00am March 20, 2024 9:38am administer weeks 1 through 4 of therapy Start: 10-03-2023 Semaglutide (W eight Loss) (Wegovy) 0.25 mg/0.5 mL pen injector Active 0.25 MG SC EVERY WEEK 2 October 03, 2023 12:00am administer weeks 1 through 4 of therapy Semaglutide 0.25 mg or 0.5 mg (2 mg/3 mL) pen injector (4 sources) Start: 10-03-2023 End: 10-03-2023 Semaglutide 0.25 mg or 0.5 mg (2 mg/3 mL) pen injector Discontinued 0.25 mg SC EVERY WEEK 3 October 03, 2023 12:00am October 03, 2023 9:03am for 4 weeks sucralfate 1000 mg oral tablet (20 sources) Aluminum Complex Start: 03-29-2021 End: 08-19-2021 take 1 tablet by mouth twice daily 1 hour(s) after mealtime Sucralfate (Carafate) 1 gram tablet Discontinued 1 g PO TWICE A DAY 60 March 29, 2021 12:00am August 19, 2021 12:42pm Take on empty stomach 1 hour before or 2 hours after meals Tirzepatide (Weight Loss) (7 sources) Start: 10-23-2024 End: 01-07-2025 Tirzepatide (Weight Loss) (Zepbound) 2.5 mg/0.5 mL pen injector Discontinued 2.5 mg SC EVERY WEEK 2 October 23, 2024 5:09pm January 07, 2025 11:29am for 4 weeks Start: 10-23-2024 Tirzepatide (W eight Loss) (Zepbound) 2.5 mg/0.5 mL pen injector Active 2.5 mg SC EVERY WEEK 2 October 23, 2024 5:09pm for 4 weeks Start: 10-11-2024 End: 10-23-2024 Tirzepatide (Weight Loss) (Z epbound) 2.5 mg/0.5 mL pen injector Discontinued 2.5 mg SC EVERY WEEK 2 October 11, 2024 12:00am October 23, 2024 5:10pm for 4 weeks Start: 10-11-2024 Tirzepatide (W eight Loss) (Zepbound) 2.5 mg/0.5 mL pen injector Active 2.5 mg SC EVERY WEEK 2 October 11, 2024 12:00am for 4 weeks ubrogepant 100 mg oral tablet (20 sources) Start: 02-15-2021 End: 12-12-2023 take 1 tablet by mouth once as needed Ubrogepant (Ubrelvy) 100 mg tablet Discontinued 100 mg PO ONCE as needed for MIGRAINES September 20, 2022 3:22pm December 12, 2023 1:01pm as a single dose; may repeat once in >=2 hours after first dose if needed Start: 12-31-2020 End: 12-31-2020 Ubrogepant (Ubrelvy) 100 mg tablet Discontinued 50 mg PO .COMPLEX as needed December 31, 2020 8:05am December 31, 2020 9:31am 50 mg PO as a single dose; may repeat once in >=2 hours after first dose if needed PRN Start: 10-26-2020 End: 12-31-2020 take 1 tablet by mouth once Ubrogepant (Ubrelvy) 100 m g tablet Discontinued 100 mg PO ONCE October 26, 2020 12:00am December 31, 2020 8:07am as a single dose; may repeat once in >=2 hours after first dose if needed Vitamin B Complex (20 sources) Start: 09-14-2017 End: 02-21-2019 take 1 capsule by mouth once daily Vitamin B Complex Discontinued 1 CAP PO daily September 14, 2017 11:46am February 21, 2019 12:00pm Start: 09-14-2017 End: 02-21-2019 take 1 capsule by mouth once daily Vitamin B Complex Discontinued 1 CAP PO daily September 14, 2017 12:00am February 21, 2019 11:00am Start: 09-14-2017 End: 02-21-2019 take 1 capsule by mouth once daily Vitamin B Complex Discontinued 1 CAP PO daily September 14, 2017 1:00am February 21, 2019 12:00pm Vitamin B Complex capsule (4 sources) Start: 09-14-2017 End: 02-21-2019 Vitamin B Complex capsule Discontinued 1 NMA PO daily September 14, 2017 1:00am February 21, 2019 12:00pm Problems Active Problems Problem Classification Problem Date Documented Da te Episodic/Chronic Acute bronchitis (9 sources) Acute bronchitis; Translations: [Acute bronchitis, unspecified] 10-24-2020 Episodic Administrative/social admission (20 sources) General problem AND/OR complaint; Translations: [Persons encountering health services in other specified circumstances] Episodic Anxiety disorders (20 sources) Anxiety disorder, unspecified; Translations: [Mixed anxiety and depressive disorder] Onset: Chronic Biliary tract disease (20 sources) Biliary dyskinesia; Translations: [Other specified diseases of gallbladder] 06-21-2018 Episodic Cardiac dysrhythmias (15 sources) Palpitations; Translations: [Palpitations] 03-10-2023 Episodic Deficiency and other anemia (20 sources) Anemia; Translations: [Anemia, unspecified] 02-21-2019 Episodic Diabetes mellitus without complication (8 sources) Type 2 diabetes mellitus controlled by diet; Translations: [Type 2 diabetes mellitus without complications] Onset: 5 10-11-2024 Chronic Diabetes mellitus without complication (20 sources) Prediabetes; Translations: [Prediabetes] Onset: 5 08-15-2022 Episodic E Codes: Natural/environment (20 sources) Cat bite - wound; Translations: [Bitten by cat, initial encounter] 12-05-2022 Episodic Esophageal disorders (20 sources) Gastro-esophageal reflux disease without esophagitis; Translations: [Gastroesophageal reflux disease] Onset: 7 02-21-2019 Chronic Essential hypertension (20 sources) Hypertensive disorder; Translations: [Essential (primary) hypertension] Onset: 5 Chronic Fluid and electrolyte disorders (20 sources) Hyponatremia; Translations: [Hypo-osmolality and hyponatremia] 01-07-2021 Episodic Gastritis and duodenitis (1 source) Unspecified chronic gastritis without bleeding; Translations: [UNS CHRONIC GASTRITIS W/] Onset: Chronic Gastroduodenal ulcer (20 sources) Gastric ulcer, unspecified as acute or chronic, without hemorrhage or perforation; Translations: [Gastric ulcer] Onset: 7 02-21-2019 Chronic Genitourinary symptoms and ill-defined conditions (20 sources) Urge incontinence of urine; Translations: [Urge incontinence] 09-29-2022 Chronic Comment on above: has consult with Dr Don Headache; including migraine (20 sources) Migraine without aura; Translations: [Migraine without aura, not intractable, without status migrainosus] 12-31-2020 Chronic Immunizations and screening for infectious disease (8 sources) Patient encounter status; Translations: [Encounter for screening for COVID-19] 05-22-2021 Episodic Lymphadenitis (20 sources) Lymphadenopathy; Translations: [Enlarged lymph nodes, unspecified] 11-09-2022 Episodic Comment on above: This is a 42-year-ol d female who presents for incidentally noted right cervical (jugular chain level 4) lymphadenopathy. Given the patient's habitus and its location just deep to the sternocleidomastoid muscle, this lymph node is not palpable on exam. Patient maintains that it has not been symptomatic for her either. Given the presence of nontender lymphadenopathy and radiology's differential including possible metastatic disease versus evidence of possible primary malignancy, I recommended proceeding with ultrasound-guided fine-needle aspiration. Patient accepted this recommendation and procedure was undertaken without complication during today's visit. Post procedure wound care instructions were provided. We will plan to telephone patient with cytopathology once it is resulted. Menstrual disorders (3 sources) Excessive and frequent menstruation with regular cycle; Translations: [EXCESS FREQ MENSTRUATION] Onset: 7 Chronic Mood disorders (1 source) Major depressive disorder, single episode, unspecified; Translations: [DIPAK DEPRESS D/O SINGLE E] Onset: 7 Nonspecific chest pain (3 sources) Chest pain, unspecified; Translations: [Chest pain, unspecified] 04-26-2023 Episodic Nutritional deficiencies (20 sources) Vitamin deficiency; Translations: [Vitamin deficiency, unspecified] 03-12-2019 Episodic Comment on above: D, iron, B12 Osteoarthritis (20 sources) Arthritis; Translations: [Unspecified osteoarthritis, unspecified site] 02-21-2019 Chronic Other acquired deformities (4 sources) Lumbar spondylolisthesis; Translations: [Spondylolisthesis, lumbar region] 05-10-2024 Episodic Other acquired deformities (4 sources) Spondylolysis; Translations: [Spondylolysis, lumbar region] 05-10-2024 Episodic Other bone disease and musculoskeletal deformities (20 sources) Segmental and somatic dysfunction; Translations: [Segmental and somatic dysfunction of cervical region] 12-21-2020 Episodic Other connective tissue disease (8 sources) Pain in calf; Translations: [Pain in left lower leg] 10-08-2021 Episodic Other connective tissue disease (2 sources) Pain in left lower leg; Translations: [Pain in limb] Episodic Other endocrine disorders (19 sources) Primary hyperparathyroidism; Translations: [Primary hyperparathyroidism] 11-03-2022 Chronic Other endocrine disorders (8 sources) Primary hyperparathyroidism; Translations: [Primary hyperparathyroidism] Onset: 4 11-23-2022 Chronic Other endocrine disorders (1 source) Hyperparathyroidism; Translations: [Hyperparathyroidism, unspecified] 01-07-2025 Chronic Other endocrine disorders (1 source) Hyperparathyroidism, unspecified; Translations: [Hyperparathyroidism, unspecified] Onset: 5 Chronic Other gastrointestinal disorders (1 source) Irritable bowel syndrome without diarrhea; Translations: [IRRITABLE BOWEL SYND W/O] Onset: 7 Chronic Other gastrointestinal disorders (20 sources) Irritable bowel syndrome; Translations: [Irritable bowel syndrome without diarrhea] 02-21-2019 Chronic Other gastrointestinal disorders (20 sources) Constipation; Translations: [Constipation, unspecified] 04-26-2021 Episodic Other liver diseases (20 sources) Lesion of liver; Translations: [Liver disease, unspecified] 05-24-2021 Chronic Other lower respiratory disease (20 sources) Dyspnea on exertion; Translations: [Shortness of breath] 06-03-2021 Episodic Other lower respiratory disease (20 sources) Cough; Translations: [Cough] 09-01-2022 Episodic Other nervous system disorders (20 sources) Carpal tunnel syndrome; Translations: [Carpal tunnel syndrome, right upper limb] 12-16-2019 Chronic Other nervous system disorders (7 sources) Carpal tunnel syndrome of right wrist; Translations: [Carpal tunnel syndrome, right upper limb] 12-16-2019 Chronic Other non-traumatic joint disorders (3 sources) Pain in unspecified hip; Translations: [Pain in joint, pelvic region and thigh] 07-01-2022 Episodic Other nutritional; endocrine; and metabolic disorders (12 sources) Morbid (severe) obesity due to excess calories; Translations: [Morbid obesity] Onset: 7 10-19-2022 Chronic Other nutritional; endocrine; and metabolic disorders (20 sources) Insulin resistance; Translations: [Metabolic syndrome] 08-20-2021 Chronic Other nutritional; endocrine; and metabolic disorders (20 sources) Body mass index 40+ - severely obese; Translations: [Body mass index (BMI) 45.0-49.9, adult] 05-03-2019 Chronic Other nutritional; endocrine; and metabolic disorders (6 sources) Body mass index (BMI) 45.0-49.9, adult; Translations: [Body Mass Index 45.0-49.9, adult] Chronic Other nutritional; endocrine; and metabolic disorders (1 source) Metabolic syndrome; Translations: [Dysmetabolic syndrome X] Chronic Other nutritional; endocrine; and metabolic disorders (2 sources) Body mass index (BMI) 50.0-59.9, adult; Translations: [Body Mass Index 50.0-59.9, adult] Chronic Other nutritional; endocrine; and metabolic disorders (20 sources) Hypercalcemia; Translations: [Hypercalcemia] 08-15-2022 Chronic Other nutritional; endocrine; and metabolic disorders (5 sources) Hypercalcemia; Translations: [Hypercalcemia] 08-15-2022 Chronic Other nutritional; endocrine; and metabolic disorders (20 sources) Morbid obesity; Translations: [Morbid (severe) obesity due to excess calories] 10-19-2022 Chronic Comment on above: restarted [facility] appt with Dr Galeana Other skin disorders (2 sources) Generalized hyperhidrosis; Translations: [Generalized hyperhidrosis] Episodic Other upper respiratory disease (20 sources) Seasonal allergy; Translations: [Other seasonal allergic rhinitis] 02-21-2019 Chronic Other upper respiratory disease (8 sources) Congestion of nasal sinus; Translations: [Nasal congestion] 05-22-2021 Episodic Other upper respiratory infections (7 sources) Sinusitis; Translations: [Chronic sinusitis, unspecified] 08-31-2024 Chronic Other upper respiratory infections (20 sources) Common cold; Translations: [Acute nasopharyngitis [common cold]] 05-22-2021 Episodic Residual codes; unclassified (20 sources) Obstructive sleep apnea syndrome; Translations: [Obstructive sleep apnea (adult) (pediatric)] 11-05-2019 Chronic Comment on above: AHI 102.8. On BiPAP 17/13 centimeters of water Rheumatoid arthritis and related disease (1 source) Rheumatoid arthritis without rheumatoid factor, multiple sites; Translations: [Rheumatoid arthritis without rheumatoid factor, multiple sites] Onset: 5 Chronic Spondylosis; intervertebral disc disorders; other back problems (20 sources) Neck pain; Translations: [Cervicalgia] 12-31-2020 Episodic Systemic lupus erythematosus and connective tissue disorders (20 sources) Sjogren's syndrome; Translations: [Sicca syndrome, unspecified] Chronic Thyroid disorders (20 sources) Hypothyroidism; Translations: [Hypothyroidism, unspecified] Onset: 5 Chronic Unclassified (8 sources) Obstructive sleep apnea (adult) (pediatric); Translations: [Obstructive sleep apnea (adult)(pediatric)] Onset: 7 Chronic Unclassified (1 source) Unknown / UNK(Unknown) Onset: 7 Unclassified (1 source) Pure hypercholesterolemia, unspecified; Translations: [PURE HYPERCHOLESTEROLEMI] Onset: 7 Unclassified (20 sources) Transformed migraine; Translations: [Chronic migraine] 03-12-2019 Unclassified (9 sources) Needle stick injury of finger; Translations: [Needlestick injury of finger] Unclassified (1 source) Low back pain, unspecified; Translations: [Low back pain, unspecified] Onset: 4 Viral infection (20 sources) Disease caused by 2019-nCoV; Translations: [COVID-19] Episodic Past or Other Problems Problem Classification Problem Date Documented Date Episodic/Chronic Abdominal hernia (1 source) Diaphragmatic hernia without obstruction or gangrene; Translations: [DIAPH HERNIA W/O OBST/GA] Onset: 02-06-2017 Episodic Open wounds of extremities (5 sources) Laceration of finger; Translations: [Laceration without foreign body of unspecified finger without damage to nail, initial encounter] Onset: 01-30-2024 01-26-2024 Episodic Other acquired deformities (1 source) Spondylolisthesis, lumbar region; Translations: [Spondylolisthesis, lumbar region] Onset: 06-25-2024 Episodic Other aftercare (1 source) Other fpc (current) drug therapy; Translations: [Other roasterman (current) drug therapy] Onset: 04-23-2024 Episodic Other screening for suspected conditions (not mental disorders or infectious disease) (1 source) Encounter for screening mammogram for malignant neoplasm of breast; Translations: [Encounter for screening mammogram for malignant neoplasm of breast] Onset: 04-24-2024 Episodic Unclassified (1 source) ACUTE GASTRIC ULCER WITH Onset: 04-03-2017 Unclassified (20 sources) lesion removal from lip 06-21-2019 Results Test Name Value Interpretation Reference Range Facility Endocrinology Visit Reporton 01-07-2025 Endocrinology Visit Report [facility] [address] [place] [address] OFFICE VISIT Date of Service: 01/07/25 MR#: [id number] Acct: [id number] Name: ALMA ADEN Rep #: [id number] : 1980 Provider: Snow Farley Age/Sex: 44/F Location: [facility] [place] Status: Signed Intake Vital Signs 10/23/24 16:47 01/07/25 11:26 Height 5 ft 8 in 5 ft 8 in Weight: 387 lb 5 oz BMI 58.8 BP 136/78 H 139/86 H Blood Pressure Location Lt brachial Lt brachial Position Sitting Sitting Respiration 16 Pulse 81 80 Pulse Source Monitor Monitor Temp 96.1 F L Temp Source Temporal Pulse Oximetry (%) 95 97 Oxygen Delivery Method room air room air Intake Visit Reasons: 13 M FU, Cx 12/13 Chief Complaint: BRBPR Is patient in pain?: No Allergies sumatriptan Allergy (Severe, Verified 01/07/25 11:28) headache penicillin G Allergy (Mild, Verified 01/07/25 11:28) Other latex Allergy (Verified 01/07/25 11:28) Rash escitalopram (From Lexapro) Adverse Reaction (Verified 01/07/25 11:28) Other Medications ???Medication ???Instructions ???Recorded ???Confirmed ???Type ferrous sulfate 325 mg (65 mg 325 mg PO DAILY 12/16/19 01/07/25 History iron) tablet (FeroSul) mecobalamin (vitamin B12) 1,000 1,000 mcg PO DAILY 11/14/23 History mcg chewable tablet melatonin 3 mg capsule 3 mg PO HS PRN 11/14/23 01/07/25 H istory upadacitinib 15 mg tablet,extended 15 mg PO DAILY 11/14/23 01/07/25 History release 24 hr (Rinvoq) ubrogepant 100 mg tablet (Ubrelvy) 100 mg PO ONCE PRN MIGRAINES #15 12/12/23 01/07/25 Rx tabs alprazolam 0.25 mg tablet (Xanax) 0.25 mg PO DAILY PRN PRN Anxiety 04/25/24 01/07/25 Rx #20 tabs prednisone 10 mg tablet 10 mg PO DAILY PRN Arthritis #100 04/25/24 01/07/25 Rx tabs methotrexate 2 mg/mL oral solution 2.5 mg PO QWEEK 08/31/24 5 History duloxetine 30 mg capsule,delayed 30 mg PO DAILY #90 caps 09/05/24 0 01/07/25 Rx release losartan 100 mg tablet 100 mg PO DAILY #90 tabs 10/14/24 01/07/25 Rx levothyroxine 150 mcg tablet 150 mcg PO .5 days per week #90 01/07/25 Rx tabs metformin 500 mg tablet,extended 500 mg PO BID #60 tabs 11/29/24 Rx release 24 hr (Glucophage XR) duloxetine 60 mg capsule,delayed 60 mg PO QDAY DEPRESSION #90 caps 12/03/24 01/07/25 Rx release (Cymbalta) [facility] Medical History (Updated 01/09/25 @ 15:[address] Cali Lou MD) Hyperparathyroidism Diabetes mellitus type 2, diet-controlled Preventative health care Palpitations Autoimmune disease Cat bite Primary hyperparathyroidism B12 deficiency Urge incontinence Hypercalcemia COVID-19 Insulin resistance Depression Anxiety Alcohol use History of steroid therapy Thyroid disease Restless legs Back pain Migraine headache History of hiatal hernia Gastric reflux Non-smoker BiPAP (biphasic positive airway pressure) dependence Sleep apnea Shortness of breath on exertion Leg cramps History of edema History of echocardiogram Hypertension History of irregular heartbeat Constipation Sleep concern Sjogren's disease Vitamin deficiency GERD (gastroesophageal reflux disease) IBS (irritable bowel syndrome) Arthritis Seasonal allergies Anemia Stomach ulcer Anxiety and depression Surgical History Hx of hysterectomy History of total vaginal hysterectomy (TVH) lesion removal from lip Family History Grandmother Heart disease Arthritis Diabetes Hypertension Thyroid disorder Stomach ulcer Mother Asthma Arthritis Hypertension Osteoporosis Aunt Arthritis Heart disease Autoimmune disease Grandfather Cancer lung Father Hypertension Uncle Heart disease Other Anemia Anesthesia complication Anxiety Parkinson disease Skin cancer Social History number of children: 2 sexually active: No Smoking Status: Never smoker alcohol intake: current alcohol intake frequency: holidays/special occasions only details: Social substance use type: does not use caffeine: Yes what type of physical activity do you participate in: none seatbelt use: always do you feel safe at home: Yes 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 Normal [facility] Gastroenterology Visit Repor ton 12-13-2024 Gastroenterology Visit Report [facility] Gastroenterology [address] [place] [address] OFFICE VISIT Date of Service: 12/13/24 MR#: [id number] Acct: [id number] Name: ALMA ADEN Rep #: [id number] : 1980 Provider: ISIDRA Champagne Age/Sex: 44/F [place] [facility] [place] Status: Signed Intake Vital Signs 10/23/24 16:47 Height 5 ft 8 in BP 136/78 H Blood Pressure Location Lt brachial Position Sitting Respiration 16 Pulse 81 Pulse Source Monitor Temp 96.1 F L Temp Source Temporal Pulse Oximetry (%) 95 Oxygen Delivery Method room air Intake Visit Reasons: RECTAL BLEEDING - COLONOSCOPY Chief Complaint: BRBPR Allergies sumatriptan Allergy (Severe, Verified 12/13/24 07:03) headache penicillin G Allergy (Mild, Verified 12/13/24 07:03) Other latex Allergy (Verified 12/13/24 07:03) Rash escitalopram (From Lexapro) Adverse Reaction (Verified 12/13/24 07:03) Other Medications ???Medication ???Instructions ???Recorded ???Confirmed ???Type ferrous sulfate 325 mg (65 mg 325 mg PO DAILY 12/16/19 12/13/24 History iron) tablet (FeroSul) mecobalamin (vitamin B12) 1,000 1,000 mcg PO DAILY 11/14/23 History mcg chewable tablet melatonin 3 mg capsule 3 mg PO HS PRN 11/14/23 12/13/24 H istory upadacitinib 15 mg tablet,extended 15 mg PO DAILY 11/14/23 12/13/24 History release 24 hr (Rinvoq) ubrogepant 100 mg tablet (Ubrelvy) 100 mg PO ONCE PRN MIGRAINES #15 12/12/23 12/13/24 Rx tabs alprazolam 0.25 mg tablet (Xanax) 0.25 mg PO DAILY PRN PRN Anxiety 04/25/24 12/13/24 Rx #20 tabs prednisone 10 mg tablet 10 mg PO DAILY PRN Arthritis #100 04/25/24 12/13/24 Rx tabs methotrexate 2 mg/mL oral solution 2.5 mg PO QWEEK 08/31/2412/13/ 5 History duloxetine 30 mg capsule,delayed 30 mg PO DAILY #90 caps 09/05/24 0 12/13/24 Rx release losartan 100 mg tablet 100 mg PO DAILY #90 tabs 10/14/24 12/13/24 Rx levothyroxine 150 mcg tablet 150 mcg PO .5 days per week #90 04 /01/25 05/30/25 Rx tabs tirzepatide (weight loss) 2.5 2.5 mg (0.5 mL) subcut QWEEK #2 mL 10/23/24 12/13/24 Rx mg/0.5 mL subcutaneous pen injector (Zepbound) metformin 500 mg tablet,extended 500 mg PO BID #60 tabs 11/29/24 Rx release 24 hr (Glucophage XR) duloxetine 60 mg capsule,delayed 60 mg PO QDAY DEPRESSION #90 caps 12/03/24 12/13/24 Rx release (Cymbalta) Nurse's Note: Pt reports the last week she has seen bright red blood in her stool. Hx of constipation. Has a BM every other day and is nhi consistency. Some pain with BMs. Also reports increased acid reflux. PFSH Medical History Diabetes mellitus type 2, diet-controlled Preventative health care Palpitations Autoimmune disease Cat bite Primary hyperparathyroidism B12 deficiency Urge incontinence Hypercalcemia COVID-19 Insulin resistance Depression Anxiety Alcohol use History of steroid therapy Thyroid disease Restless legs Back pain Migraine headache History of hiatal hernia Gastric reflux Non-smoker BiPAP (biphasic positive airway pressure) dependence Sleep apnea Shortness of breath on exertion Leg cramps History of edema History of echocardiogram Hypertension History of irregular heartbeat Constipation Sleep concern Sjogren's disease Vitamin deficiency GERD (gastroesophageal reflux disease) IBS (irritable bowel syndrome) Arthritis Seasonal allergies Anemia Stomach ulcer Anxiety and depression Surgical History Hx of hysterectomy History of total vaginal hysterectomy (TVH) lesion removal from lip Family History Grandmother Heart disease Arthritis Diabetes Hypertension Thyroid disorder Stomach ulcer Mother Asthma Arthritis Hypertension Osteoporosis Aunt Arthritis Heart disease Autoimmune disease Grandfather Cancer lung Father Hypertension Uncle Heart disease Other Anemia Anesthesia complication Anxiety Parkinson disease Skin cancer Social History number of children: 2 sexually active: No Smoking Status: Never smoker alcohol intake: current alcohol intake frequency: holidays/special occasions only details: Social substance use type: does not use caffeine: Yes what type of physical activity do you participate in: none seatbelt use: always do you feel safe at home: Yes 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 BGI established in 2020 with diar (more content not included)... Normal [facility] T4 Free Directon 11-08-2024 T4 FREE DIRECT 1.00 ng/dL Normal 0.76-1.46 [facility] Comment on above: Performed By: #### L 501.9520, L506.0400 ####[facility] [id number] [place], [place], [address] Thyroid Stim Hormone (TSH)on 11-08-2024 TSH 0.729 uIU/mL Normal 0.300-4.200 [facility] Comment on above: Performed By: #### L 501.9520, L506.0400 ####[facility] [id number] [place], [address] Absolute lymphocyte countOrd ered By: STEVEN BOLES on 11-07-2024 Lymphocytes Auto (Unsp spec) [#/Vol] 1.84 10*3/uL 0.83-4.51 [facility] Absolute neutrophil countOrd ered By: STEVEN BOLES on 11-07-2024 Neutrophils (Bld) [#/Vol] 4.2 10*3/uL 2.0-7.7 [facility] Automated lymphocyte count a s percentage of total leukocytesOrdered By: STEVEN BOLES on 11-07-2024 Lymphocytes/100 WBC Auto (Unsp spec) 27.3 % 19-41 [facility] Basophil percentageOrdered B y: STEVEN BOLES on 11-07-2024 Basophils/100 WBC (Bld) 0.7 % 0-1 [facility] Bilirubin directOrdered By: SETVEN BOLES on 11-07-2024 Bilirubin.direct [Mass/Vol] 0.12 mg/dL 0.00-0.30 [facility] Bilirubin, totalOrdered By: STEVEN BOLES on 11-07-2024 Bilirubin [Mass/Vol] 0.29 mg/dL 0.00-1.30 [facility] CBC W/Diff, Automatedon 10-16 Absolute Lymph 1.84 X10 3/uL Normal 0.83-4.51 [facility] Comment on above: Performed By: #### L 501.1105, L101.9900, L501.6710, L500.3400, L100.0100 #### [facility] [address] [place], [address] Absolute Neut 4.2 X10 3/uL Normal 2.0-7.7 [facility] Comment on above: Performed By: #### L 501.1105, L101.9900, L501.6710, L500.3400, L100.0100 #### [facility] [address] [place], [address] Basophils/100 WBC (Bld) 0.7 % Normal 0-1 [facility] Comment on above: Performed By: #### L 501.1105, L101.9900, L501.6710, L500.3400, L100.0100 #### [facility] [address] [place], [address] Eosinophils/100 WBC (Bld) 2.1 % Normal 0-5 [facility] Comment on above: Performed By: #### L 501.1105, L101.9900, L501.6710, L500.3400, L100.0100 #### [facility] [address] [place], [address] Erythrocyte distribution width (RBC) [Ratio] 12.7 % Normal 11.6-14.6 [facility] Comment on above: Performed By: #### L 501.1105, L101.9900, L501.6710, L500.3400, L100.0100 #### [facility] [address] [place], [address] Hematocrit (Bld) [Volume fraction] 36.6 % Low 37-47 [facility] Comment on above: Performed By: #### L 501.1105, L101.9900, L501.6710, L500.3400, L100.0100 #### [facility] [address] [place], [address] Hemoglobin (Bld) [Mass/Vol] 11.9 g/dL Low 12.0-15.0 [facility] Comment on above: Performed By: #### L 501.1105, L101.9900, L501.6710, L500.3400, L100.0100 #### [facility] [address] [place], [address] IG% 0.400 Normal 0.0-0.9 [facility] Comment on above: Result Comment: IG% - Immature Granulocytes (promyelocytes, myelocytes and metamyelocytes) > 1% indicates that a LEFT SHIFT is Present. Performed By: #### L 501.1105, L101.9900, L501.6710, L500.3400, L100.0100 #### [facility] [address] [place], [address] Lymphocytes/100 WBC (Bld) 27.3 % Normal 19-41 [facility] Comment on above: Performed By: #### L 501.1105, L101.9900, L501.6710, L500.3400, L100.0100 #### [facility] [address] [place], [address] MCH (RBC) [Entitic mass] 31.6 pg Normal 27.0-32.0 [facility] Comment on above: Performed By: #### L 501.1105, L101.9900, L501.6710, L500.3400, L100.0100 #### [facility] [address] [place], [address] MCHC (RBC) [Mass/Vol] 32.5 g/dL Normal 32-36 [facility] Comment on above: Performed By: #### L 501.1105, L101.9900, L501.6710, L500.3400, L100.0100 #### [facility] [address] [place], [address] MCV (RBC) [Entitic vol] 97.3 fL Normal 81-99 [facility] Comment on above: Performed By: #### L 501.1105, L101.9900, L501.6710, L500.3400, L100.0100 #### [facility] [address] [place], [address] Monocytes/100 WBC (Bld) 7.4 % Normal 0-10 [facility] Comment on above: Performed By: #### L 501.1105, L101.9900, L501.6710, L500.3400, L100.0100 #### [facility] [address] [place], [address] Neutrophils/100 WBC (Bld) 62.1 % Normal 47-70 [facility] Comment on above: Performed By: #### L 501.1105, L101.9900, L501.6710, L500.3400, L100.0100 #### [facility] [address] [place], [address] Nucleated RBC (Bld) [#/Vol] 0 10*3/uL Normal 0-5 [facility] Comment on above: Performed By: #### L 501.1105, L101.9900, L501.6710, L500.3400, L100.0100 #### [facility] [address] [place], [address] Platelet mean volume (Bld) [Entitic vol] 9.5 fL Normal 6.2-12.0 [facility] Comment on above: Performed By: #### L 501.1105, L101.9900, L501.6710, L500.3400, L100.0100 #### [facility] [address] [place], [address] Platelets (Bld) [#/Vol] 318 10*3/uL Normal 150-450 [facility] Comment on above: Performed By: #### L 501.1105, L101.9900, L501.6710, L500.3400, L100.0100 #### [facility] [address] [place], [address] RBC (Bld) [#/Vol] 3.76 10*6/uL Low 4.2-5.4 [facility] Comment on above: Performed By: #### L 501.1105, L101.9900, L501.6710, L500.3400, L100.0100 #### [facility] [address] [place], [address] RDW SD 45.2 fl High 35.1-43.9 [facility] Comment on above: Performed By: #### L 501.1105, L101.9900, L501.6710, L500.3400, L100.0100 #### [facility] [address] [place], [address] WBC (Bld) [#/Vol] 6.7 10*3/uL Normal 4.4-11.0 [facility] Comment on above: Performed By: #### L 501.1105, L101.9900, L501.6710, L500.3400, L100.0100 #### [facility] [address] [place], [address] CRPon 11-07-2024 C-REACTIVE PROT 7.96 mg/L High 0.0-3.0 [facility] Comment on above: Performed By: #### L 501.1105, L101.9900, L501.6710, L500.3400, L100.0100 #### [facility] [address] [place], [place], [id number] CRP [Mass/Vol]Ordered By: ME KEYONA BOLES on 11-07-2024 C-Reactive Protein Extended Range 7.96 mg/L High 0.0-3.0 [facility] Eosinophil percentageOrdered By: STEVEN BOLES on 11-07-2024 Eosinophils/100 WBC (Bld) 2.1 % 0-5 [facility] Erythrocyte Sed Rateon 11-07 SED RATE 8 mm/hr Normal 0-30 [facility] Comment on above: Performed By: #### L 501.1105, L101.9900, L501.6710, L500.3400, L100.0100 #### [facility] [address] [place], [place], [address] Erythrocyte distribution wid th (RBC) [Ratio]Ordered By: STEVEN BOLES on 11-07-2024 Erythrocyte distribution width (RBC) [Entitic vol] 45.2 fL High 35.1-43.9 [facility] Erythrocyte distribution wid th ratioOrdered By: STEEVN BOLES on 11-07-2024 Erythrocyte distribution width (RBC) [Ratio] 12.7 % 11.6-14.6 [facility] Erythrocyte distribution wid th standard deviationOrdered By: STEVEN BOLES on 11-07-2024 Erythrocyte distribution width (RBC) [Ratio] 45.2 fl High 35.1-43.9 [facility] Erythrocyte sedimentation ra teOrdered By: STEVEN BOLES on 11-07-2024 ESR (Bld) [Velocity] 8 mm/h 0-30 [facility] GFR/1.73 sq M.predicted leann g non-blacks MDRD (S/P/Bld) [Vol rate/Area]Ordered By: STEVEN BOLES on 11-07-2024 Estimated GFR (MDRD) Non-Af Amer 95 >60 [facility] Comment on above: mL/min/1.73m2 CKD-EP I Creatinine Equation (2020) Glomerular filtration rate ( GFR) estimation/1.73 sq m using serum, plasma, or whole bOrdered By: STEVEN BOLES on 11-07-2024 GFR/1.73 sq M.predicted among non-blacks MDRD (S/P/Bld) [Vol rate/Area] 95 mL/min/{1.73_m2} >60 [facility] Comment on above: mL/min/1.73m2 CKD-EP I Creatinine Equation (2020) Hematocrit Auto (Bld) [Volum e fraction]Ordered By: STEVEN BOLES on 11-07-2024 Hematocrit (Bld) [Volume fraction] 36.6 % Low 37-47 [facility] Hemoglobin measurementOrdere d By: STEVEN BOLES on 11-07-2024 Hemoglobin (Bld) [Mass/Vol] 11.9 g/dL Low 12.0-15.0 [facility] Immature granulocytes/100 WB C Auto (Bld)Ordered By: STEVEN BOLES on 11-07-2024 Immature granulocytes/100 WBC (Bld) 0.400 % 0.0-0.9 [facility] Comment on above: IG% - Immature Granu locytes (promyelocytes, myelocytes and metamyelocytes) > 1% indicates that a LEFT SHIFT is Present. Laboratory - Chemistry and C hemistry - challengeOrdered By: STEVEN BOLES on 11-07-2024 AST [Catalytic activity/Vol] 16 U/L <32 [facility] Liver Profileon 11-07-2024 Albumin [Mass/Vol] 4.1 g/dL Normal 3.5-5.0 [facility] Comment on above: Performed By: #### L 501.1105, L101.9900, L501.6710, L500.3400, L100.0100 #### [facility] [address] [place], [place], [id number] ALK PHOS 63 U/L Normal 35-104 [facility] Comment on above: Performed By: #### L 501.1105, L101.9900, L501.6710, L500.3400, L100.0100 #### [facility] [address] [place], [address] ALT [Catalytic activity/Vol] 18 U/L Normal <=34 [facility] Comment on above: Performed By: #### L 501.1105, L101.9900, L501.6710, L500.3400, L100.0100 #### [facility] [address] [place], [address] AST [Catalytic activity/Vol] 16 U/L Normal <=31 [facility] Comment on above: Performed By: #### L 501.1105, L101.9900, L501.6710, L500.3400, L100.0100 #### [facility] [address] [place], [address] Bilirubin [Mass/Vol] 0.29 mg/dL Normal 0.00-1.30 [facility] Comment on above: Performed By: #### L 501.1105, L101.9900, L501.6710, L500.3400, L100.0100 #### [facility] [address] [place], [address] Bilirubin.direct [Mass/Vol] 0.12 mg/dL Normal 0.00-0.30 [facility] Comment on above: Performed By: #### L 501.1105, L101.9900, L501.6710, L500.3400, L100.0100 #### [facility] [address] [place], [address] Globulin (S) [Mass/Vol] 2.3 g/dL Normal 2.2-4.2 [facility] Comment on above: Performed By: #### L 501.1105, L101.9900, L501.6710, L500.3400, L100.0100 #### [facility] [address] [place], [address] T PROT 6.4 g/dL Normal 5.9-8.4 [facility] Comment on above: Performed By: #### L 501.1105, L101.9900, L501.6710, L500.3400, L100.0100 #### [facility] [address] [place], [address] Lymphocytes Auto (Unsp spec) [#/Vol]Ordered By: STEVEN BOLES on 11-07-2024 Lymphocytes (Bld) [#/Vol] 1.84 10*3/uL 0.83-4.51 [facility] Lymphocytes/100 WBC Auto (Un sp spec)Ordered By: STEVEN BOLES on 11-07-2024 Lymphocytes/100 WBC (Bld) 27.3 % 19-41 [facility] MCV (mean corpuscular volume ) determinationOrdered By: STEVEN BOLES on 11-07-2024 MCV (RBC) [Entitic vol] 97.3 fL 81-99 [facility] Mean corpuscular hemoglobin (MCH) determinationOrdered By: STEVEN BOLES on 11-07-2024 MCH (RBC) [Entitic mass] 31.6 pg 27.0-32.0 [facility] Mean corpuscular hemoglobin concentration (MCHC) determinationOrdered By: STEVEN BOLES on 11-07-2024 MCHC (RBC) [Mass/Vol] 32.5 g/dL 32-36 [facility] Mean platelet volume determi nationOrdered By: STEVEN BOLES on 11-07-2024 Platelet mean volume (Bld) [Entitic vol] 9.5 fL 6.2-12.0 [facility] Monocyte percentageOrdered B y: STEVEN BOLES on 11-07-2024 Monocytes/100 WBC (Bld) 7.4 % 0-10 [facility] Neutrophil percentageOrdered By: STEVEN BOLES on 11-07-2024 Neutrophils/100 WBC (Bld) 62.1 % 47-70 [facility] Nucleated red blood cell per centageOrdered By: STEVEN BOLES on 11-07-2024 Nucleated RBC/100 WBC (Bld) [Ratio] 0 % 0-5 [facility] Platelet countOrdered By: ME KEYONA BOLES on 11-07-2024 Platelets (Bld) [#/Vol] 318 10*3/uL 150-450 [facility] RBC Auto (Bld) [#/Vol]Ordere d By: STEVEN BOLES on 11-07-2024 RBC (Bld) [#/Vol] 3.76 10*6/uL Low 4.2-5.4 [facility] Serum Creatinine AND GFRon 0 11-07-2024 Creatinine [Mass/Vol] 0.80 mg/dL Normal 0.70-1.20 [facility] Comment on above: Performed By: #### L 501.1105, L101.9900, L501.6710, L500.3400, L100.0100 #### [facility] [address] [place], [place], [address] GFR/1.73 sq M.predicted among non-blacks MDRD (S/P/Bld) [Vol rate/Area] 95 mL/min/{1.73_m2} Normal >60 [facility] Comment on above: Result Comment: mL/m in/1.73m2 CKD-EPI Creatinine Equation (2020) Performed By: #### L 501.1105, L101.9900, L501.6710, L500.3400, L100.0100 #### [facility] [address] [place], [place], [address] Serum creatinine measurement (mass/volume)Ordered By: STEVEN BOLES on 11-07-2024 Creatinine [Mass/Vol] 0.80 mg/dL 0.70-1.20 [facility] Serum globulin measurementOr dered By: STEVEN BOLES on 11-07-2024 Globulin (S) [Mass/Vol] 2.3 g/dL 2.2-4.2 [facility] Serum or plasma C reactive p rotein measurement (mass/volume)Ordered By: STEVEN BOLES on 11-07-2024 CRP [Mass/Vol] 7.96 mg/L High 0.0-3.0 [facility] Serum or plasma alanine zuñiga otransferase (ALT) measurementOrdered By: STEVEN BOLES on 11-07-2024 ALT [Catalytic activity/Vol] 18 U/L <35 [facility] Serum or plasma albumin sancho urement (mass/volume)Ordered By: STEVEN BOLES on 11-07-2024 Albumin [Mass/Vol] 4.1 g/dL 3.5-5.0 [facility] Serum or plasma alkaline nallely sphatase measurementOrdered By: STEVEN BOLES on 11-07-2024 ALP [Catalytic activity/Vol] 63 U/L 35-104 [facility] T4 freeOrdered By: Cali Lou on 11-07-2024 Free T4 [Mass/Vol] 1.00 ng/dL 0.76-1.46 [facility] TSH DL <= 0.005 mIU/L QnOrde red By: Cali Lou on 11-07-2024 Thyroid Stimulating Hormone (TSH) 0.729 uIU/mL 0.300-4.200 [facility] TSH Qn 0.729 uIU/mL 0.300-4.200 [facility] Total proteinOrdered By: IRENE BOLES on 11-07-2024 Protein [Mass/Vol] 6.4 g/dL 5.9-8.4 [facility] White blood cell (WBC) count Ordered By: STEVEN BOLES on 11-07-2024 WBC (Bld) [#/Vol] 6.7 10*3/uL 4.4-11.0 [facility] Internal Medicine Office Vis itojamee 10-23-2024 Internal Medicine Office Visit [facility] [address] [place] [address] [place], [place] [address] OFFICE VISIT Date of Service: 10/23/24 MR#: [id number] Acct: [id number] Name: ALMA ADEN Snow Rep #: [id number] : 1980 Provider: Dr. 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 Accompanied by: Self Allergies sumatriptan Allergy (Severe, Verified 10/23/24 16:51) headache penicillin G Allergy (Mild, Verified 10/23/24 16:51) Other latex Allergy (Verified 10/23/24 16:51) Rash escitalopram (From Lexapro) Adverse Reaction (Verified 10/23/24 16:51) Other Medications ???Medication ???Instructions ???Recorded ???Confirmed ???Type ferrous sulfate 325 mg (65 mg 325 mg PO DAILY 12/16/19 10/23/24 History iron) tablet (FeroSul) mecobalamin (vitamin B12) 1,000 1,000 mcg PO DAILY 11/14/23 History mcg chewable tablet melatonin 3 mg capsule 3 mg PO HS PRN 11/14/23 10/23/24 H istory upadacitinib 15 mg tablet,extended 15 mg PO DAILY 11/14/23 10/23/24 History release 24 hr (Rinvoq) ubrogepant 100 mg tablet (Ubrelvy) 100 mg PO ONCE PRN MIGRAINES #15 12/12/23 10/23/24 Rx tabs alprazolam 0.25 mg tablet (Xanax) 0.25 mg PO DAILY PRN PRN Anxiety 04/25/24 10/23/24 Rx #20 tabs prednisone 10 mg tablet 10 mg PO DAILY PRN Arthritis #100 04/25/24 10/23/24 Rx tabs duloxetine 60 mg capsule,delayed 60 mg PO QDAY DEPRESSION #90 caps 06/10/24 10/23/24 Rx release (Cymbalta) methotrexate 2 mg/mL oral solution 2.5 mg PO QWEEK 08/31/24 5 History duloxetine 30 mg capsule,delayed 30 mg PO DAILY #90 caps 09/05/24 0 10/23/24 Rx release losartan 100 mg tablet 100 mg PO DAILY #90 tabs 10/14/24 10/23/24 Rx levothyroxine 150 mcg tablet 150 mcg PO .5 days per week #90 10/23/24 Rx tabs tirzepatide (weight loss) 2.5 2.5 mg (0.5 mL) subcut QWEEK #2 mL 10/23/24 10/23/24 Rx mg/0.5 mL subcutaneous pen injector (Zepbound) Have you fallen in the past year?: No PFS Medical History Diabetes mellitus type 2, diet-controlled Preventative health care Palpitations Autoimmune disease Cat bite Primary hyperparathyroidism B12 deficiency Urge incontinence Hypercalcemia COVID-19 Insulin resistance Depression Anxiety Alcohol use History of steroid therapy Thyroid disease Restless legs Back pain Migraine headache History of hiatal hernia Gastric reflux Non-smoker BiPAP (biphasic positive airway pressure) dependence Sleep apnea Shortness of breath on exertion Leg cramps History of edema History of echocardiogram Hypertension History of irregular heartbeat Constipation Sleep concern Sjogren's disease Vitamin deficiency GERD (gastroesophageal reflux disease) IBS (irritable bowel syndrome) Arthritis Seasonal allergies Anemia Stomach ulcer Anxiety and depression Surgical History Hx of hysterectomy History of total vaginal hysterectomy (TVH) lesion removal from lip Family History Grandmother Heart disease Arthritis Diabetes Hypertension Thyroid disorder Stomach ulcer Mother Asthma Arthritis Hypertension Osteoporosis Aunt Arthritis Heart disease Autoimmune disease Grandfather Cancer lung Father Hypertension Uncle Heart disease Other Anemia Anesthesia complication Anxiety Parkinson disease Skin cancer Social History number of children: 2 sexually active: No Smoking Status: Never smoker alcohol intake: current alcohol intake frequency: holidays/special occasions only details: Social substance use type: does not use caffeine: Yes what type of physical activity do you participate in: none seatbelt use: always do you feel safe at home: Yes 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 No acute concerns at this time. History of hypertension, blood pressure today at 136/78 mmHg. She reports compliance with her medication but admits that she has not been checking her numbers routinely. No chest norma (more content not included)... Normal [facility] Hemoglobin A1con 10-10-2024 HbA1c (Bld) [Mass fraction] 5.9 % Normal <=5.6 [facility] Comment on above: Performed By: #### L 501.9985 ####[facility] [address] [place], [place], [address] Hemoglobin A1c percentageOrd ered By: Wyatt Marcelo on 10-10-2024 HbA1c (Bld) [Mass fraction] 5.9 % >5.7 [facility] Urgent Care Visit Reporton 0 08-31-2024 Urgent Care Visit Report [facility] [address], [address] [place], [place] [address] OFFICE VISIT Date of Service: 08/31/24 MR#: [id number] Acct: [id number] Name: ALMA ADEN Rep #: [id number] : 1980 Provider: ZAFAR Tan Age/Sex: 44/F Location[place] [facility] Status: Signed Intake Vital Signs 05/10/24 10:59 08/31/24 11:33 08/31/24 12:26 Height 5 ft 8 in 5 ft 8 in Weight: 380 lb BMI 57.7 BP 118/70 Blood Pressure Location Rt brachial Position Sitting Respiration 12 Pulse 88 Pulse Source NIBP Temp 98.3 F Temp Source Oral Pulse Oximetry (%) 98 Oxygen Delivery Method room air Intake Visit Reasons: SINUS INFECTION Chief Complaint: poss sinus infection Allergies sumatriptan Allergy (Severe, Verified 08/31/24 12:32) headache penicillin G Allergy (Mild, Verified 08/31/24 12:32) Other latex Allergy (Verified 08/31/24 12:32) Rash escitalopram (From Lexapro) Adverse Reaction (Verified 08/31/24 12:32) Other Medications ???Medication ???Instructions ???Recorded ???Confirmed ???Type ferrous sulfate 325 mg (65 mg 325 mg PO DAILY 12/16/19 08/31/24 History iron) tablet (FeroSul) levothyroxine 150 mcg tablet 150 mcg PO .5 days per week #90 08/31/24 Rx tabs mecobalamin (vitamin B12) 1,000 1,000 mcg PO DAILY 11/14/23 History mcg chewable tablet melatonin 3 mg capsule 3 mg PO HS PRN 11/14/23 08/31/24 H istory upadacitinib 15 mg tablet,extended 15 mg PO DAILY 11/14/23 08/31/24 History release 24 hr (Rinvoq) ubrogepant 100 mg tablet (Ubrelvy) 100 mg PO ONCE PRN MIGRAINES #15 12/12/23 08/31/24 Rx tabs duloxetine 30 mg capsule,delayed 30 mg PO DAILY #90 caps 03/07/24 0 08/31/24 Rx release alprazolam 0.25 mg tablet (Xanax) 0.25 mg PO DAILY PRN PRN Anxiety 04/25/24 08/31/24 Rx #20 tabs losartan 100 mg tablet 100 mg PO DAILY #90 tabs 04/25/24 08/31/24 Rx prednisone 10 mg tablet 10 mg PO DAILY PRN Arthritis #100 04/25/24 08/31/24 Rx tabs duloxetine 60 mg capsule,delayed 60 mg PO QDAY DEPRESSION #90 caps 06/10/24 08/31/24 Rx release (Cymbalta) doxycycline monohydrate 100 mg 100 mg PO BID 5 days #10 caps 08/1708/31/24 Rx capsule methotrexate 2 mg/mL oral solution 2.5 mg PO QWEEK 08/31/24 5 History PFSH Medical History Borderline type 2 diabetes mellitus Preventative health care Palpitations Autoimmune disease Cat bite Primary hyperparathyroidism B12 deficiency Urge incontinence Prediabetes Hypercalcemia COVID-19 Insulin resistance Depression Anxiety Alcohol use History of steroid therapy Thyroid disease Restless legs Back pain Migraine headache History of hiatal hernia Gastric reflux Non-smoker BiPAP (biphasic positive airway pressure) dependence Sleep apnea Shortness of breath on exertion Leg cramps History of edema History of echocardiogram Hypertension History of irregular heartbeat Constipation Sleep concern Sjogren's disease Vitamin deficiency GERD (gastroesophageal reflux disease) IBS (irritable bowel syndrome) Arthritis Seasonal allergies Anemia Stomach ulcer Anxiety and depression Surgical History Hx of hysterectomy History of total vaginal hysterectomy (TVH) lesion removal from lip Family History Grandmother Heart disease Arthritis Diabetes Hypertension Thyroid disorder Stomach ulcer Mother Asthma Arthritis Hypertension Osteoporosis Aunt Arthritis Heart disease Autoimmune disease Grandfather Cancer lung Father Hypertension Uncle Heart disease Other Anemia Anesthesia complication Anxiety Parkinson disease Skin cancer Social History number of children: 2 sexually active: No Smoking Status: Never smoker alcohol intake: current alcohol intake frequency: holidays/special occasions only details: Social substance use type: does not use caffeine: Yes what type of physical activity do you participate in: none seatbelt use: always do you feel safe at home: Yes additional social history: [employer]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 -sx started 2-3 days ago -sx stuffy nose, runny nose, clear sputum cough, left side of face with pain and burning -no fever or chills -denies sob, myalgias or sore throat- hurts behind left ear -tried so far saline nasal spray, Nasonex, naproxen, vicks, heating pad ROS Const Constitutional: Positive for other (ROS n (more content not included)... Normal [facility] Absolute neutrophil countOrd ered By: STEVEN BOLES on 07-23-2024 Neutrophils (Bld) [#/Vol] 3.3 10*3/uL 2.0-7.7 [facility] Basophil percentageOrdered B y: STEVEN BOLES on 07-23-2024 Basophils/100 WBC (Bld) 0.5 % 0-1 [facility] Bilirubin directOrdered By: STEVEN BOLES on 07-23-2024 Bilirubin.direct [Mass/Vol] 0.10 mg/dL 0.00-0.30 [facility] Bilirubin, totalOrdered By: STEVEN BOLES on 07-23-2024 Bilirubin [Mass/Vol] 0.40 mg/dL 0.20-1.00 [facility] Comment on above: For patients on eltr ombopag therapy, use of Dimension [place] TBIL is not recommended. C-reactive protein measureme nt by high sensitivity methodOrdered By: STEVEN BOLES on 07-23-2024 C-Reactive Protein Extended Range 4.63 mg/L High 0.0-3.0 [facility] Comment on above: C-Reactive Protein ( CRP) provides useful information for thediagnosis, therapy and monitoring of inflammatory processesand associated diseases. For the evaluation of Relative Riskfor Cardiovascular Disease, a High Sensitivity CRP (HSCRP)should be ordered. CBC W/Diff, Automatedon Absolute Lymph 1.81 X10 3/uL Normal 0.83-4.51 [facility] Comment on above: Performed By: #### L 501.1105, L500.3400, L100.0100, L101.9900, L501.6710 ####[facility] [address] [place], [address] Absolute Neut 3.3 X10 3/uL Normal 2.0-7.7 [facility] Comment on above: Performed By: #### L 501.1105, L500.3400, L100.0100, L101.9900, L501.6710 ####[facility] [address] [place], [address] Basophils/100 WBC (Bld) 0.5 % Normal 0-1 [facility] Comment on above: Performed By: #### L 501.1105, L500.3400, L100.0100, L101.9900, L501.6710 ####[facility] [address] [place], [address] Eosinophils/100 WBC (Bld) 1.8 % Normal 0-5 [facility] Comment on above: Performed By: #### L 501.1105, L500.3400, L100.0100, L101.9900, L501.6710 ####[facility] [address] [place], [address] Erythrocyte distribution width (RBC) [Ratio] 13.4 % Normal 11.6-14.6 [facility] Comment on above: Performed By: #### L 501.1105, L500.3400, L100.0100, L101.9900, L501.6710 ####[facility] [address] [place], [address] Hematocrit (Bld) [Volume fraction] 35.1 % Low 37-47 [facility] Comment on above: Performed By: #### L 501.1105, L500.3400, L100.0100, L101.9900, L501.6710 ####[facility] [address] [place], [address] Hemoglobin (Bld) [Mass/Vol] 11.5 g/dL Low 12.0-15.0 [facility] Comment on above: Performed By: #### L 501.1105, L500.3400, L100.0100, L101.9900, L501.6710 ####[facility] [address] [place], [address] IG% 0.200 Normal 0.0-0.9 [facility] Comment on above: Result Comment: IG% - Immature Granulocytes (promyelocytes, myelocytes and metamyelocytes) > 1% indicates that a LEFT SHIFT is Present. Performed By: #### L 501.1105, L500.3400, L100.0100, L101.9900, L501.6710 ####[facility] [address] [place], [address] Lymphocytes/100 WBC (Bld) 31.9 % Normal 19-41 [facility] Comment on above: Performed By: #### L 501.1105, L500.3400, L100.0100, L101.9900, L501.6710 ####[facility] [address] [place], [address] MCH (RBC) [Entitic mass] 31.4 pg Normal 27.0-32.0 [facility] Comment on above: Performed By: #### L 501.1105, L500.3400, L100.0100, L101.9900, L501.6710 ####[facility] [address] [place], [address] MCHC (RBC) [Mass/Vol] 32.8 g/dL Normal 32-36 [facility] Comment on above: Performed By: #### L 501.1105, L500.3400, L100.0100, L101.9900, L501.6710 ####[facility] [address] [place], [address] MCV (RBC) [Entitic vol] 95.9 fL Normal 81-99 [facility] Comment on above: Performed By: #### L 501.1105, L500.3400, L100.0100, L101.9900, L501.6710 ####[facility] [address] [place], [address] Monocytes/100 WBC (Bld) 8.1 % Normal 0-10 [facility] Comment on above: Performed By: #### L 501.1105, L500.3400, L100.0100, L101.9900, L501.6710 ####[facility] [address] [place], [address] Neutrophils/100 WBC (Bld) 57.5 % Normal 47-70 [facility] Comment on above: Performed By: #### L 501.1105, L500.3400, L100.0100, L101.9900, L501.6710 ####[facility] [address] [place], [address] Nucleated RBC (Bld) [#/Vol] 0 10*3/uL Normal 0-5 [facility] Comment on above: Performed By: #### L 501.1105, L500.3400, L100.0100, L101.9900, L501.6710 ####[facility] [address] [place], [address] Platelet mean volume (Bld) [Entitic vol] 9.6 fL Normal 6.2-12.0 [facility] Comment on above: Performed By: #### L 501.1105, L500.3400, L100.0100, L101.9900, L501.6710 ####[facility] [address] [place], [address] Platelets (Bld) [#/Vol] 329 10*3/uL Normal 150-450 [facility] Comment on above: Performed By: #### L 501.1105, L500.3400, L100.0100, L101.9900, L501.6710 ####[facility] [address] [place], [address] RBC (Bld) [#/Vol] 3.66 10*6/uL Low 4.2-5.4 [facility] Comment on above: Performed By: #### L 501.1105, L500.3400, L100.0100, L101.9900, L501.6710 ####[facility] [address] [place], [address] RDW SD 47.3 fl High 35.1-43.9 [facility] Comment on above: Performed By: #### L 501.1105, L500.3400, L100.0100, L101.9900, L501.6710 ####[facility] [address] [place], [address] WBC (Bld) [#/Vol] 5.7 10*3/uL Normal 4.4-11.0 [facility] Comment on above: Performed By: #### L 501.1105, L500.3400, L100.0100, L101.9900, L501.6710 ####[facility] [address] [place], [address] CRPon 07-23-2024 C-REACTIVE PROT 4.63 mg/L High 0.0-3.0 [facility] Comment on above: Result Comment: C-Re active Protein (CRP) provides useful information for the diagnosis, therapy and monitoring of inflammatory processes and associated diseases. For the evaluation of Relative Risk for Cardiovascular Disease, a High Sensitivity CRP (HSCRP) should be ordered. Performed By: #### L 501.1105, L500.3400, L100.0100, L101.9900, L501.6710 ####[facility] [address] [place], [address] Eosinophil percentageOrdered By: STEVEN BOLES on 07-23-2024 Eosinophils/100 WBC (Bld) 1.8 % 0-5 [facility] Erythrocyte Sed Rateon 07-23 SED RATE 5 mm/hr Normal 0-30 [facility] Comment on above: Performed By: #### L 501.1105, L500.3400, L100.0100, L101.9900, L501.6710 ####[facility] [address] [place], [address] Erythrocyte distribution wid th ratioOrdered By: STEVEN BOLES on 07-23-2024 Erythrocyte distribution width (RBC) [Ratio] 13.4 % 11.6-14.6 [facility] Erythrocyte distribution wid th standard deviationOrdered By: STEVEN BOLES on 07-23-2024 Erythrocyte distribution width (RBC) [Entitic vol] 47.3 fL High 35.1-43.9 [facility] Erythrocyte sedimentation ra teOrdered By: STEVEN BOLES on 07-23-2024 ESR (Bld) [Velocity] 5 mm/h 0-30 [facility] Estimated glomerular filtrat ion rate (GFR) AmericanOrdered By: STEVEN BOLES on 07-23-2024 Estimated GFR (MDRD) Amer 103 mL/min >60 [facility] Comment on above: GFR Calc Glomerular filtration rate ( GFR) estimationOrdered By: STEVEN BOLES on 07-23-2024 Estimated GFR (MDRD) Non-Af Amer 85 mL/min >60 [facility] Comment on above: Non- GFR Calc Hematocrit Auto (Bld) [Volum e fraction]Ordered By: STEVEN BOLES on 07-23-2024 Hematocrit (Bld) [Volume fraction] 35.1 % Low 37-47 [facility] Hemoglobin measurementOrdere d By: STEVEN BOLES on 07-23-2024 Hemoglobin (Bld) [Mass/Vol] 11.5 g/dL Low 12.0-15.0 [facility] Immature granulocytes/100 WB C Auto (Bld)Ordered By: STEVEN BOLES on 07-23-2024 Immature granulocytes/100 WBC (Bld) 0.200 % 0.0-0.9 [facility] Comment on above: IG% - Immature Granu locytes (promyelocytes, myelocytes and metamyelocytes) > 1% indicates that a LEFT SHIFT is Present. Laboratory - Chemistry and C hemistry - challengeOrdered By: STEVEN BOLES on 07-23-2024 AST [Catalytic activity/Vol] 23 U/L 15-37 [facility] Liver Profileon 07-23-2024 Albumin [Mass/Vol] 3.8 g/dL Normal 3.2-5.0 [facility] Comment on above: Performed By: #### L 501.1105, L500.3400, L100.0100, L101.9900, L501.6710 ####[facility] [address] [place], [address] ALK P 61 U/L Normal 45-117 [facility] Comment on above: Performed By: #### L 501.1105, L500.3400, L100.0100, L101.9900, L501.6710 ####[facility] [address] [place], [address] ALT [Catalytic activity/Vol] 28 U/L Normal 13-56 [facility] Comment on above: Performed By: #### L 501.1105, L500.3400, L100.0100, L101.9900, L501.6710 ####[facility] [address] [place], [address] AST [Catalytic activity/Vol] 23 U/L Normal 15-37 [facility] Comment on above: Performed By: #### L 501.1105, L500.3400, L100.0100, L101.9900, L501.6710 ####[facility] [address] [place], [address] Bilirubin [Mass/Vol] 0.40 mg/dL Normal 0.20-1.00 [facility] Comment on above: Result Comment: For patients on eltrombopag therapy, use of Dimension [place] TBIL is not recommended. Performed By: #### L 501.1105, L500.3400, L100.0100, L101.9900, L501.6710 ####[facility] [address] [place], [address] Bilirubin.direct [Mass/Vol] 0.10 mg/dL Normal 0.00-0.30 [facility] Comment on above: Performed By: #### L 501.1105, L500.3400, L100.0100, L101.9900, L501.6710 ####[facility] [address] [place], [address] Globulin (S) [Mass/Vol] 3.7 g/dL Normal 2.2-4.2 [facility] Comment on above: Performed By: #### L 501.1105, L500.3400, L100.0100, L101.9900, L501.6710 ####[facility] [address] [place], [address] T PROT 7.5 g/dL Normal 6.4-8.2 [facility] Comment on above: Performed By: #### L 501.1105, L500.3400, L100.0100, L101.9900, L501.6710 ####[facility] [address] [place], [address] Lymphocytes Auto (Unsp spec) [#/Vol]Ordered By: STEVEN BOLES on 07-23-2024 Lymphocytes (Bld) [#/Vol] 1.81 10*3/uL 0.83-4.51 [facility] Lymphocytes/100 WBC Auto (Un sp spec)Ordered By: STEVEN BOLES on 07-23-2024 Lymphocytes/100 WBC (Bld) 31.9 % 19-41 [facility] MCV (mean corpuscular volume ) determinationOrdered By: STEVEN BOLES on 07-23-2024 MCV (RBC) [Entitic vol] 95.9 fL 81-99 [facility] Mean corpuscular hemoglobin (MCH) determinationOrdered By: STEVEN BOLES on 07-23-2024 MCH (RBC) [Entitic mass] 31.4 pg 27.0-32.0 [facility] Mean corpuscular hemoglobin concentration (MCHC) determinationOrdered By: STEVEN BOLES on 07-23-2024 MCHC (RBC) [Mass/Vol] 32.8 g/dL 32-36 [facility] Mean platelet volume determi nationOrdered By: STEVEN BOLES on 07-23-2024 Platelet mean volume (Bld) [Entitic vol] 9.6 fL 6.2-12.0 [facility] Monocyte percentageOrdered B y: STEVEN BOLES on 07-23-2024 Monocytes/100 WBC (Bld) 8.1 % 0-10 [facility] Neutrophil percentageOrdered By: STEVEN BOLES on 07-23-2024 Neutrophils/100 WBC (Bld) 57.5 % 47-70 [facility] Nucleated red blood cell per centageOrdered By: STEVEN BOLES on 07-23-2024 Nucleated RBC/100 WBC (Bld) [Ratio] 0 % 0-5 [facility] Platelet countOrdered By: ME KEYONA BOLES on 07-23-2024 Platelets (Bld) [#/Vol] 329 10*3/uL 150-450 [facility] RBC Auto (Bld) [#/Vol]Ordere d By: STEVEN BOLES on 07-23-2024 RBC (Bld) [#/Vol] 3.66 10*6/uL Low 4.2-5.4 [facility] Serum Creatinine AND GFRon 0 07-23-2024 Creatinine [Mass/Vol] 0.79 mg/dL Normal 0.55-1.02 [facility] Comment on above: Result Comment: The validity of the calculated GFR GFRAA in patients over 70 years has not been determined. Clinical correlation is essential. Performed By: #### L 501.1105, L500.3400, L100.0100, L101.9900, L501.6710 ####[facility] [address] [place], [place], [id number] EST GFR - AA 103 mL/min Normal >60 [facility] Comment on above: Result Comment: Afri can Turkish GFR Calc Performed By: #### L 501.1105, L500.3400, L100.0100, L101.9900, L501.6710 ####[facility] [address] [place], [place], [id number]) GFR/1.73 sq M.predicted among non-blacks MDRD (S/P/Bld) [Vol rate/Area] 85 mL/min/{1.73_m2} Normal >60 [facility] Comment on above: Result Comment: Non- GFR Calc Performed By: #### L 501.1105, L500.3400, L100.0100, L101.9900, L501.6710 ####[facility] [address] [place], [address] Serum globulin measurementOr dered By: STEVEN BOLES on 07-23-2024 Globulin (S) [Mass/Vol] 3.7 g/dL 2.2-4.2 [facility] Serum or plasma alanine zuñiga otransferase (ALT) measurementOrdered By: STEVEN BOLES on 07-23-2024 ALT [Catalytic activity/Vol] 28 U/L 13-56 [facility] Serum or plasma albumin sancho urement (mass/volume)Ordered By: STEVEN BOLES on 07-23-2024 Albumin [Mass/Vol] 3.8 g/dL 3.2-5.0 [facility] Serum or plasma alkaline nallely sphatase measurementOrdered By: STEVEN BOLES on 07-23-2024 ALP [Catalytic activity/Vol] 61 U/L 45-117 [facility] Serum or plasma creatinine m easurement (mass/volume)Ordered By: STEVEN BOLES on 07-23-2024 Creatinine [Mass/Vol] 0.79 mg/dL 0.55-1.02 [facility] Comment on above: The validity of the calculated GFR & GFRAA in patients over 70 years has not been determined. Clinical correlation is essential. Total proteinOrdered By: IRENE BOLES on 07-23-2024 Protein [Mass/Vol] 7.5 g/dL 6.4-8.2 [facility] White blood cell (WBC) count Ordered By: STEVEN BOLES on 07-23-2024 WBC (Bld) [#/Vol] 5.7 10*3/uL 4.4-11.0 [facility] Inital Evaluation (1) - PTon 07-03-2024 Inital Evaluation (1) - PT [facility] Physical Therapy [facility] [address] [place] [address]. [address] [place] [address] / REHABILITATION SERVICES INITIAL EVALUATION MR#: [id number] Acct: [id number] Name: ALMA ADEN Rep #: [id number] : 1980 43 From: Anatoliy Boudreaux DPT Referring Dr.: ISIDRA Avendano Status: REG RCR Insurance: [employer]/[facility] SELF PAY INSURANCE Patient's Visit Information Visit Information Visit Information: ALMA ADEN is a 43 year old F referred to Physical Therapy by ISIDRA Avendano with a diagnosis of lumbar spondylosis. Date of Evaluation: 07/02/24 Physical Therapist: Anatoliy Boudreaux DPT Visit Plan Frequency: 2x /Week Duration: 4 Weeks Plan: US to lumbar spine 3-4 visits as needed Progress neutral spine core stability, B hip strengthening Subjective Subjective: Pt. is here today for her initial evaluation with diagnosis of lumbar spondylosis. Pt. reports having increased LBP for years. No mech of injury. Pt. denies N/T in either LE. Pt. reports no changes in B/B, no saddle region pain. Pt. reports having increased pain with bending, lifting, stairs. PT. reports nothing seems to reduce symptom, its just always there. Pt. reports having some symptoms that start in her low back, but tends to extend into her B buttock region. Pain management suggested injections, waiting on insurance approval. Pt. is sleeping well, but does have increased pain with lying fully flat. Pt. is hopeful to reduce symptoms in order to get back to all recreational and work activities without limitations. Pt. did have an MRI noting disc desiccation, but no stenosis noted. Pain Lumbar spine: Pain Intensity (Out of 10): 4 Pain Intensity Range: 2 and 6 Objective Objective: POSTURE: Pt. has increased lumbar lordosis and anterior pelvic tilt. PALPATION: Pt. has pain with palpation of B lumbar spinal erector spinae. No pain with palpation of BLEs. NEURO: Pt. has normal DTR of BLEs. Pt. has normal sensation in BLEs. ROM: LUMBAR SPINE: flexion min loss increase NW, ext min loss mild increase NW, SB min loss NE, rotation min loss jennifer mild increase NW. Pt. has tight B HS. Pt. has fairly normal B hip ROM without increase in symptoms. MMT: Pt. has 5/5 strength throughout BLEs, ext 4/5 B hip strength. Pt. have poor core strength and difficulty with maintaining neutral spine during LE testing. GAIT: Pt. has decreased B UE swing. pt. has no major lateral hip sway with gait. STAIRS: Pt. is able to complete with reciprocal pattern without HR, but does have increased pain with trials. Balance/Special Test Scores Oswestry Low Back Score: 14 Goals Goal 1:: LTG: Pt. to be I with HEP. Goal Time Frame: 4-6 Weeks Goal 2:: STG: Pt. to have full lumbar ROM without increase symptoms. Goal Time Frame: 2-4 Weeks Goal 3:: LTG: Pt. to have increased core and hip strength to 5/5 and fair respectively. Goal Time Frame: 4-6 Weeks Goal 4:: LTG: Pt. to complete all work activities without increase in low back pain. Goal Time Frame: 4-6 Weeks Goal 5:: LTG: Pt. to negotiate steps with out HR with out increase in low back pain. Goal Time Frame: 4-6 Weeks Rehabilitation Potential Physical Therapy Diagnosis: Pt. has signs and symptoms consistent with lumbar spondylosis. Pt. has increased pain with all movements of spine. She does have seem to have directional preference with her spinal mobility. Pt. would benefit from PT to address the above limitations. I would like her to focus on neutral spine core stability, but we can use some modalities to reduce symptoms initially. Rehabilitation Potential: Good Anticipated Interventions Patient/Client Instruction: Educate patient on: Condition, Plan of Care, Risk Factors and Benefits of Fitness Program For the Purpose of:: To improve decision making, To facilitate caregiver knowledge, To improve self management, To prevent re-injury and To improve ability to perform tasks related to life management Therapeutic Exercise to Include: Strength training, Power training, Endurance training, Coordination, Body mechanics, Flexibilty training, Passive ROM and Active ROM For the Purpose of:: To decrease pain, To increase ROM, To improve nutrient delivery to tissue, To increase oxygenation perfusion, To improve muscle performance and motor function, To improve ability to perform ADL's, To increase tolerance to activity/condition/position , To decrease level of supervision to perform tasks, To improve gait and locomotor functions, To improve health of tissue, To decrease soft tissue restriction and To increase flexibility/ROM Cryotherapy (ice pack, ice massage): Yes Thermo therapy (hot pack): Yes Ultrasound (thermal/non thermal): Yes For the Purpose of:: To decrease pain, To decrease swelling/inflammation, To increase ROM, To improve nutrient delivery to tissue, To increase oxygenation perfusion and To (more content not included)... Normal [facility] Spine Lumbar (Routine)on Spine Lumbar (Routine) [facility] Imaging Services [address] [place] [address] Spine Lumbar (Routine) MR#: [id number] Acct: [id number] Name: ALMA ADEN Rep #: [id number] : 1980 F 43 From: Abad Juarez MD PCP: Dr. Wyatt Marcelo MD Status: REG CLI Study: Spine Lumbar (Routine) Date of Exam: 05/27/24 Exam# [id number] Ordering Dr: Nimco Gonzalez [id number] STUDY: MRI LUMBAR SPINE WITHOUT CONTRAST REASON FOR EXAM: Female, 43 years old. pain into L buttock x several months TECHNIQUE: Standardized fat and water weighted pulse sequences were obtained in the sagittal and axial planes. COMPARISON: X-ray 05/09/2024 FINDINGS: T12-L1: Normal endplates. Normal disc height, hydration and morphology. Normal bilateral facet joints. Normal central canal and bilateral lateral recesses. Normal bilateral intervertebral neural foramina. Normal lumbar lordosis. There is no substantial scoliosis. Normal conus medullaris that terminates at the L1. L1-2: Normal endplates. Normal disc height, hydration and morphology. Normal bilateral facet joints. Normal central canal and bilateral lateral recesses. Normal bilateral intervertebral neural foramina. L2-3: Disc desiccation but no disc protrusion, spinal stenosis, neural foraminal stenosis. L3-4: Mild bilateral facet hypertrophy with fluid in facet joints consistent with instability and mild ligament flavum hypertrophy. Disc desiccation but no disc protrusion, spinal stenosis, neural foraminal stenosis. L4-5: Mild bilateral facet hypertrophy and mild ligament flavum hypertrophy. Disc desiccation but no disc protrusion, spinal stenosis, neural foraminal stenosis. L5-S1: Mild bilateral facet hypertrophy and ligament flavum hypertrophy. Disc desiccation but no disc protrusion, spinal stenosis, or neural foraminal stenosis. Normal visualized sacral ala. Moderate friction related edema in the posterior subcutaneous fat. MRI/Spine Lumbar (Routine) IMPRESSION: Some disc desiccation but no disc protrusion, spinal stenosis, or neural foraminal stenosis. Electronically Signed: Abad Juarez MD at 11:23 [facility] , CC: ISIDRA Avendano; Dr. Wyatt Marcelo MD Sawdust Drier: Signed Normal [facility] L/S Spine Bending Flex/Dawson 05-10-2024 L/S Spine Bending Flex/Ext [facility] Imaging Services [address] [place] [address] L/S Spine Bending Flex/Ext MR#: [id number] Acct: [id number] Name: ALMA ADEN Rep #: [id number] : 1980 F 43 From: Devin Davis DO PCP: Dr. Wyatt Marcelo MD Status: REG CLI Study: L/S Spine Bending Flex/Ext Date of Exam: 05/10 Exam# [id number] Ordering Dr: Nimco Gonzalez [id number] STUDY: X-RAY - LUMBAR SPINE REASON FOR EXAM: Female, 43 years old. pain -- flex/ex TECHNIQUE: Flexion and extension lateral view(s) of the lumbar spine were obtained. COMPARISON: May 09, 2024 FINDINGS: Normal lumbar lordosis. There is a normal alignment of the vertebrae. Normal vertebral bodies and endplates. Normal disc space heights. Limited flexion. The soft tissue structures are unremarkable. RAD/L/S Spine Bending Flex/Ext IMPRESSION: Limited flexion of the lumbar spine. Electronically Signed: Devin Davis DO at 20:14 EDT Reading Location ID and State: [facility] / [place] Tel [phone], Service support , CC: ISIDRA Avendano; Dr. Wyatt Marcelo MD Sawdust Drier: Signed Normal [facility] Orthopedic Visit Reporton Orthopedic Visit Report [facility] [address] [place] [address] OFFICE VISIT Date of Service: 05/10/24 MR#: [id number] Acct: [id number] Name: ALMA ADEN Rep #: [id number] : 1980 Provider: ISIDRA Avendano Age/Sex: 43/F Location[place] [facility] Status: Signed Intake Vital Signs 03/20/24 09:41 05/10/24 10:59 Height 5 ft 8 in 5 ft 8 in Weight: 380 lb BMI 57.7 Intake Visit Reasons: LUMBAR SPINE Chief Complaint: lumbar spine Is patient in pain?: Yes (low back ) Pain scale (1-10): 5 Allergies sumatriptan Allergy (Severe, Verified 05/10/24 11:01) headache penicillin G Allergy (Mild, Verified 05/10/24 11:01) Other latex Allergy (Verified 05/10/24 11:01) Rash escitalopram (From Lexapro) Adverse Reaction (Verified 05/10/24 11:01) Other Medications ???Medication ???Instructions ???Recorded ???Confirmed ???Type ferrous sulfate 325 mg (65 mg 325 mg PO DAILY 12/16/19 05/10/24 History iron) tablet (FeroSul) levothyroxine 150 mcg tablet 150 mcg PO .5 days per week #90 11/14/23 05/10/24 Rx tabs mecobalamin (vitamin B12) 1,000 1,000 mcg PO DAILY 11/14/23 05/10/24 History mcg chewable tablet melatonin 3 mg capsule 3 mg PO HS PRN 11/14/23 05/10/24 History upadacitinib 15 mg tablet,extended 15 mg PO DAILY 11/14/23 05/10/24 History release 24 hr (Rinvoq) ubrogepant 100 mg tablet (Ubrelvy) 100 mg PO ONCE PRN MIGRAINES #15 12/12/23 05/10/24 Rx tabs duloxetine 30 mg capsule,delayed 30 mg PO DAILY #90 caps 03/07/24 05/10/24 Rx release duloxetine 60 mg capsule,delayed 60 mg PO QDAY DEPRESSION #90 caps 03/08/24 05/10/24 Rx release (Cymbalta) alprazolam 0.25 mg tablet (Xanax) 0.25 mg PO DAILY PRN PRN Anxiety 04/25/24 05/10/24 Rx #20 tabs losartan 100 mg tablet 100 mg PO DAILY #90 tabs 04/25/24 05/10/24 Rx prednisone 10 mg tablet 10 mg PO DAILY PRN Arthritis #100 04/25/24 05/10/24 Rx tabs PFSH Medical History Borderline type 2 diabetes mellitus Preventative health care Palpitations Autoimmune disease Cat bite Primary hyperparathyroidism B12 deficiency Urge incontinence Prediabetes Hypercalcemia COVID-19 Insulin resistance Depression Anxiety Alcohol use History of steroid therapy Thyroid disease Restless legs Back pain Migraine headache History of hiatal hernia Gastric reflux Non-smoker BiPAP (biphasic positive airway pressure) dependence Sleep apnea Shortness of breath on exertion Leg cramps History of edema History of echocardiogram Hypertension History of irregular heartbeat Constipation Sleep concern Sjogren's disease Vitamin deficiency GERD (gastroesophageal reflux disease) IBS (irritable bowel syndrome) Arthritis Seasonal allergies Anemia Stomach ulcer Anxiety and depression Surgical History Hx of hysterectomy History of total vaginal hysterectomy (TVH) lesion removal from lip Family History Grandmother Heart disease Arthritis Diabetes Hypertension Thyroid disorder Stomach ulcer Mother Asthma Arthritis Hypertension Osteoporosis Aunt Arthritis Heart disease Autoimmune disease Grandfather Cancer lung Father Hypertension Uncle Heart disease Other Anemia Anesthesia complication Anxiety Parkinson disease Skin cancer Social History number of children: 2 sexually active: No Smoking Status: Never smoker alcohol intake: current alcohol intake frequency: holidays/special occasions only details: Social substance use type: does not use caffeine: Yes what type of physical activity do you participate in: none seatbelt use: always do you feel safe at home: Yes 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 Part of today???s visit was documented by [ ], acting as scribe. ALMA ADEN is a 43 year old F here today for low back pain. Pt. advises she has been having low back pain pain for several years and is progressively worsening. She states the pain extends into her left glute and hip and is described as a sharp stabbing pain. She denies numbness or tingling. She denies previous back injury,or surgery. Says that her walking distance has decreased over the last couple of years and that she has to take frequent breaks. She denies PT or injections. She has recent Xrays. She treats pain with heat and Ibuprofen which are somewhat helpful. She has RA and takes Rinvoq and is planning on getti (more content not included)... Normal [facility] L/S Spine Min 4 Viewson 04-17 L/S Spine Min 4 Views [facility] Imaging Services [address] [place] [address] L/S Spine Min 4 Views MR#: [id number] Acct: [id number] Name: ALMA ADEN Rep #: [id number] : 1980 F 43 From: Juan R Rasmussen PCP: Dr. Wyatt Marcelo MD Status: REG CLI Study: L/S Spine Min 4 Views Date of Exam: 05/09/24 Exam# [id number] Ordering Dr: Nimco Gonzalez [id number] EXAM: XR LUMBOSACRAL SPINE, 4 OR 5 VIEWS CLINICAL INDICATION: low back pain TECHNIQUE: Frontal, lateral and bilateral oblique views of the lumbar spine. COMPARISON: 02/03/2023. FINDINGS: VERTEBRAE: Mild anterior subluxation of L3 on L4 measuring 5 mm similar to the prior exam. Preserved vertebral body height. No fracture. No spondylolisthesis. Preservation of the normal lumbar lordosis. No significant facet arthropathy. DISC SPACES: No acute findings. Disc spaces are maintained. GASTROINTESTINAL TRACT: Unremarkable as visualized. Included bowel gas pattern is non-obstructive. RAD/L/S Spine Min 4 Views IMPRESSION: Mild anterolisthesis of L3 on L4 unchanged since previous exam. No acute abnormality. Electronically Signed: Juan R Vega MD at 1:22 EDT , CC: ISIDRA Avendano; Dr. Wyatt Marcelo MD Sawdust Drier: Signed Normal [facility] Dexa Bone Density Studyon Dexa Bone Density Study [facility] Imaging Services [address] [place] [address] Dexa Bone Density Study MR#: [id number] Acct: [id number] Name: ALMA ADEN Rep #: [id number] : 1980 F 43 From: Sukhdeep mosqueda MD PCP: Dr. Waytt Marcelo MD Status: [facility] Study: Dexa Bone Density Study Date of Exam: 04/30/24 Exam# [id number] Ordering Dr: Estrellita Coleman INDUSTRIAL NURSE-C [id number] STUDY: DUAL ENERGY X-RAY ABSORPTIOMETRY / DXA REASON FOR EXAM: Female, 43 years old. bone density screening -- mother has osteoporosis and patient has hyperparathyroidism TECHNIQUE: Bone Mineral Density (BMD) measurements of lumbar spine and bilateral hips were obtained. COMPARISON: None. FINDINGS: Lumbar Spine (L1-L4): g/cm2 (1.140) / T-score (0.8) / Z-score (1.1) Findings are suggestive of normal bone density with a low fracture risk. Left Femur Total: g/cm2 (1.169) / T-score (1.9) / Z-score (2.1) Left Femoral Neck: g/cm2 (1.023) / T-score (1.6) / Z-score (1.9) Right Femur Total: g/cm2 (1.170) / T-score (1.9) / Z-score (2.1) Right Femoral Neck: g/cm2 (1.050) / T-score (1.8) / Z-score (2.1) BD/Dexa Bone Density Study IMPRESSION: The patient is considered normal as outlined below according to World Eulalio Organization (WHO) criteria with a low fracture risk. Reference Information: The T-score is the number of standard deviations above or below the standard which is normal for young adults at their peak bone mineral density. The World Health Organization (WHO) interprets the T-scores as follows: Above -1 Normal bone density Between -1 and -2.5 Osteopenia Equal to / or below -2.5 Osteoporosis As a practical clinical guideline, osteopenia may be graded as follows: Mild -1 through -1.5 Moderate -1.6 through -2.0 Severe -2.1 through -2.4 The Z-score is the number of standard deviations above or below age-matched controls. A Z-score of less than -1.5 would be considered abnormal. References: 1. NIH Osteoporosis and Related Bone Diseases www osteo.org 2. International Society for Clinical Densitometry www iscd.org 3. National Osteoporosis Foundation www nof.org Electronically Signed: Sukhdeep Manzano MD at 13:32 EDT , CC: ZAFAR Coleman; Dr. Wyatt Marcelo MD Sawdust Drier: Signed Normal [facility] CBC, Employeeon 04-25-2024 Absolute Lymph 1.71 X10 3/uL Normal 0.83-4.51 [facility] Comment on above: Performed By: #### L 500.2900, L100.0200, L400.0100 ####[facility] [address] [place], [address] Absolute Neut 2.6 X10 3/uL Normal 2.0-7.7 [facility] Comment on above: Performed By: #### L 500.2900, L100.0200, L400.0100 ####[facility] [address] [place], [address] Basophils/100 WBC (Bld) 1.1 % High 0-1 [facility] Comment on above: Performed By: #### L 500.2900, L100.0200, L400.0100 ####[facility] [address] [place], [address] Eosinophils/100 WBC (Bld) 1.7 % Normal 0-5 [facility] Comment on above: Performed By: #### L 500.2900, L100.0200, L400.0100 ####[facility] [address] [place], [address] Erythrocyte distribution width (RBC) [Ratio] 12.0 % Normal 11.6-14.6 [facility] Comment on above: Performed By: #### L 500.2900, L100.0200, L400.0100 ####[facility] [address] [place], [address] Hematocrit (Bld) [Volume fraction] 37.0 % Normal 37-47 [facility] Comment on above: Performed By: #### L 500.2900, L100.0200, L400.0100 ####[facility] [address] [place], [address] Hemoglobin (Bld) [Mass/Vol] 12.0 g/dL Normal 12.0-15.0 [facility] Comment on above: Performed By: #### L 500.2900, L100.0200, L400.0100 ####[facility] [address] [place], [address] Lymphocytes/100 WBC (Bld) 36.5 % Normal 19-41 [facility] Comment on above: Performed By: #### L 500.2900, L100.0200, L400.0100 ####[facility] [address] [place], [address] MCH (RBC) [Entitic mass] 31.3 pg Normal 27.0-32.0 [facility] Comment on above: Performed By: #### L 500.2900, L100.0200, L400.0100 ####[facility] [address] [place], [address] MCHC (RBC) [Mass/Vol] 32.4 g/dL Normal 32-36 [facility] Comment on above: Performed By: #### L 500.2900, L100.0200, L400.0100 ####[facility] [address] [place], [address] MCV (RBC) [Entitic vol] 96.6 fL Normal 81-99 [facility] Comment on above: Performed By: #### L 500.2900, L100.0200, L400.0100 ####[facility] [address] [place], [address] Monocytes/100 WBC (Bld) 6.0 % Normal 0-10 [facility] Comment on above: Performed By: #### L 500.2900, L100.0200, L400.0100 ####[facility] [address] [place], [address] Neutrophils/100 WBC (Bld) 54.3 % Normal 47-70 [facility] Comment on above: Performed By: #### L 500.2900, L100.0200, L400.0100 ####[facility] [address] [place], [address] NRBC # 0.00 10 3/uL Normal 0-5 [facility] Comment on above: Performed By: #### L 500.2900, L100.0200, L400.0100 ####[facility] [address] [place], [address] Nucleated RBC (Bld) [#/Vol] 0 10*3/uL Normal 0-5 [facility] Comment on above: Performed By: #### L 500.2900, L100.0200, L400.0100 ####[facility] [address] [place], [address] Platelet mean volume (Bld) [Entitic vol] 9.2 fL Normal 6.2-12.0 [facility] Comment on above: Performed By: #### L 500.2900, L100.0200, L400.0100 ####[facility] [address] [place], [address] Platelets (Bld) [#/Vol] 308 10*3/uL Normal 150-450 [facility] Comment on above: Performed By: #### L 500.2900, L100.0200, L400.0100 ####[facility] [address] [place], [address] RBC (Bld) [#/Vol] 3.83 10*6/uL Low 4.2-5.4 [facility] Comment on above: Performed By: #### L 500.2900, L100.0200, L400.0100 ####[facility] [address] [place], [address] RDW SD 42.5 fl Normal 35.1-43.9 [facility] Comment on above: Performed By: #### L 500.2900, L100.0200, L400.0100 ####[facility] [address] [place], [address] WBC (Bld) [#/Vol] 4.7 10*3/uL Normal 4.4-11.0 [facility] Comment on above: Performed By: #### L 500.2900, L100.0200, L400.0100 ####[facility] [address] [place], [address] Employee Profileon 4 Albumin [Mass/Vol] 3.7 g/dL Normal 3.2-5.0 [facility] Comment on above: Performed By: #### L 500.2900, L100.0200, L400.0100 ####[facility] [address] [place], [address] Albumin/Globulin [Mass ratio] 1.0 {ratio} Normal 0.9-2.4 [facility] Comment on above: Performed By: #### L 500.2900, L100.0200, L400.0100 ####[facility] [address] [place], [address] ALK P 59 U/L Normal 45-117 [facility] Comment on above: Performed By: #### L 500.2900, L100.0200, L400.0100 ####[facility] [address] [place], [address] ALT [Catalytic activity/Vol] 19 U/L Normal 13-56 [facility] Comment on above: Performed By: #### L 500.2900, L100.0200, L400.0100 ####[facility] [address] [place], [address] AST [Catalytic activity/Vol] 13 U/L Low 15-37 [facility] Comment on above: Performed By: #### L 500.2900, L100.0200, L400.0100 ####[facility] [address] [place], [address] Bilirubin [Mass/Vol] 0.30 mg/dL Normal 0.20-1.00 [facility] Comment on above: Result Comment: For patients on eltrombopag therapy, use of Dimension [place] TBIL is not recommended. Performed By: #### L 500.2900, L100.0200, L400.0100 ####[facility] [address] [place], [address] Bilirubin.direct [Mass/Vol] 0.08 mg/dL Normal 0.00-0.30 [facility] Comment on above: Performed By: #### L 500.2900, L100.0200, L400.0100 ####[facility] [address] [place], [address] BUN/CRE 16.3 RATIO Normal 10-20 [facility] Comment on above: Performed By: #### L 500.2900, L100.0200, L400.0100 ####[facility] [address] [place], [address] CA,Total 9.9 mg/dL Normal 8.5-10.1 [facility] Comment on above: Performed By: #### L 500.2900, L100.0200, L400.0100 ####[facility] [address] [place], [address] Chloride [Moles/Vol] 107 mmol/L Normal 98-107 [facility] Comment on above: Performed By: #### L 500.2900, L100.0200, L400.0100 ####[facility] [address] [place], [address] CHOL:HDL 3.50 Normal [facility] Comment on above: Performed By: #### L 500.2900, L100.0200, L400.0100 ####[facility] [address] [place], [address] Cholesterol [Mass/Vol] 227 mg/dL High 200 [facility] Comment on above: Result Comment: <200 mg/dL Desirable 200-240 mg/dL Borderline >240 mg/dL High Risk Performed By: #### L 500.2900, L100.0200, L400.0100 ####[facility] [address] [place], [address] Cholesterol in HDL [Mass/Vol] 65 mg/dL Normal [facility] Comment on above: Result Comment: The drugs N-Acetylcysteine and Metamizole may falsely depress this assay. Reference Range HDL <40 mg/dL Low HDL Cholesterol HDL >or= 60 mg/dL High HDL Cholesterol Performed By: #### L 500.2900, L100.0200, L400.0100 ####[facility] [address] [place], [address] Cholesterol in LDL [Mass/Vol] 136 mg/dL High 0-130 [facility] Comment on above: Performed By: #### L 500.2900, L100.0200, L400.0100 ####[facility] [address] [place], [address] Cholesterol in VLDL [Mass/Vol] 26 mg/dL Normal 5-40 [facility] Comment on above: Performed By: #### L 500.2900, L100.0200, L400.0100 ####[facility] [address] [place], [address] CO2 [Moles/Vol] 25.0 mmol/L Normal 21.0-32.0 [facility] Comment on above: Performed By: #### L 500.2900, L100.0200, L400.0100 ####[facility] [address] [place], [address] Creatinine [Mass/Vol] 0.74 mg/dL Normal 0.55-1.02 [facility] Comment on above: Result Comment: The validity of the calculated GFR GFRAA in patients over 70 years has not been determined. Clinical correlation is essential. Performed By: #### L 500.2900, L100.0200, L400.0100 ####[facility] [address] [place], [address] EST GFR - AA 112 mL/min Normal >60 [facility] Comment on above: Result Comment: Afri can Turkish GFR Calc Performed By: #### L 500.2900, L100.0200, L400.0100 ####[facility] [address] [place], [address] GAP 7 Normal 5-15 [facility] Comment on above: Performed By: #### L 500.2900, L100.0200, L400.0100 ####[facility] [address] [place], [address] GFR/1.73 sq M.predicted among non-blacks MDRD (S/P/Bld) [Vol rate/Area] 92 mL/min/{1.73_m2} Normal >60 [facility] Comment on above: Result Comment: Non- GFR Calc Performed By: #### L 500.2900, L100.0200, L400.0100 ####[facility] [address] [place], [address] Globulin (S) [Mass/Vol] 3.7 g/dL Normal 2.2-4.2 [facility] Comment on above: Performed By: #### L 500.2900, L100.0200, L400.0100 ####[facility] [address] [place], [address] Glucose [Mass/Vol] 115 mg/dL High 74-106 [facility] Comment on above: Result Comment: Fast ing Glucose result from 100 to 125 mg/dL suggests IMPAIRED HOMEOSTASIS per A.D.A. criteria. Performed By: #### L 500.2900, L100.0200, L400.0100 ####[facility] [address] [place], [address] LDH 219 U/L Normal 84-246 [facility] Comment on above: Performed By: #### L 500.2900, L100.0200, L400.0100 ####[facility] [address] [place], [address] Phosphate [Mass/Vol] 3.0 mg/dL Normal 2.5-4.9 [facility] Comment on above: Performed By: #### L 500.2900, L100.0200, L400.0100 ####[facility] [address] [place], [address] Potassium [Moles/Vol] 4.2 mmol/L Normal 3.5-5.1 [facility] Comment on above: Performed By: #### L 500.2900, L100.0200, L400.0100 ####[facility] [address] [place], [address] Sodium [Moles/Vol] 139 mmol/L Normal 136-145 [facility] Comment on above: Performed By: #### L 500.2900, L100.0200, L400.0100 ####[facility] [address] [place], [address] T PROT 7.4 g/dL Normal 6.4-8.2 [facility] Comment on above: Performed By: #### L 500.2900, L100.0200, L400.0100 ####[facility] [address] [place], [address] Triglyceride [Mass/Vol] 131 mg/dL Normal [facility] Comment on above: Result Comment: The drugs N-Acetylcysteine and Metamizole may falsely depress this assay. Serum Triglycerides Reference Interval Normal <150 mg/dL Borderline high 150 - 199 mg/dL High 200 - 499 mg/dL Very High > or = 500 mg/dL Performed By: #### L 500.2900, L100.0200, L400.0100 ####[facility] [address] [place], [address] Urea nitrogen [Mass/Vol] 12 mg/dL Normal 7-18 [facility] Comment on above: Performed By: #### L 500.2900, L100.0200, L400.0100 ####[facility] [address] [place], [address] URIC 5.5 mg/dL Normal 2.6-6.0 [facility] Comment on above: Result Comment: The drugs N-Acetylcysteine and Metamizole may falsely depress this assay. Performed By: #### L 500.2900, L100.0200, L400.0100 ####[facility] [address] [place], [address] Internal Medicine Office Vis aisha 04-25-2024 Internal Medicine Office Visit [facility] [address] [place] [address] [place] [address] OFFICE VISIT Date of Service: 04/25/24 MR#: [id number] Acct: [id number] Name: ALMA ADEN Rep #: [id number] : 1980 Provider: Dr. 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 Is patient in pain?: No Allergies sumatriptan Allergy (Severe, Verified 04/25/24 16:56) headache penicillin G Allergy (Mild, Verified 04/25/24 16:56) Other latex Allergy (Verified 04/25/24 16:56) Rash escitalopram (From Lexapro) Adverse Reaction (Verified 04/25/24 16:56) Other Medications ???Medication ???Instructions ???Recorded ???Confirmed ???Type ferrous sulfate 325 mg (65 mg 325 mg PO DAILY 12/16/19 04/25/24 History iron) tablet (FeroSul) levothyroxine 150 mcg tablet 150 mcg PO .5 days per week #90 11/14/23 04/25/24 Rx tabs mecobalamin (vitamin B12) 1,000 1,000 mcg PO DAILY 11/14/23 04/25/24 History mcg chewable tablet melatonin 3 mg capsule 3 mg PO HS PRN 11/14/23 04/25/24 History upadacitinib 15 mg tablet,extended 15 mg PO DAILY 11/14/23 04/25/24 History release 24 hr (Rinvoq) ubrogepant 100 mg tablet (Ubrelvy) 100 mg PO ONCE PRN MIGRAINES #15 12/12/23 04/25/24 Rx tabs duloxetine 30 mg capsule,delayed 30 mg PO DAILY #90 caps 03/07/24 04/25/24 Rx release duloxetine 60 mg capsule,delayed 60 mg PO QDAY DEPRESSION #90 caps 03/08/24 04/25/24 Rx release (Cymbalta) alprazolam 0.25 mg tablet (Xanax) 0.25 mg PO DAILY PRN PRN Anxiety 04/25/24 04/25/24 Rx #20 tabs losartan 100 mg tablet 100 mg PO DAILY #90 tabs 04/25/24 04/25/24 Rx prednisone 10 mg tablet 10 mg PO DAILY PRN Arthritis #100 04/25/24 04/25/24 Rx tabs Nurse's Note: a1c done 5.9% Needs losartan and xanax refilled. [facility] Medical History Borderline type 2 diabetes mellitus Preventative health care Palpitations Autoimmune disease Cat bite Primary hyperparathyroidism B12 deficiency Urge incontinence Prediabetes Hypercalcemia COVID-19 Insulin resistance Depression Anxiety Alcohol use History of steroid therapy Thyroid disease Restless legs Back pain Migraine headache History of hiatal hernia Gastric reflux Non-smoker BiPAP (biphasic positive airway pressure) dependence Sleep apnea Shortness of breath on exertion Leg cramps History of edema History of echocardiogram Hypertension History of irregular heartbeat Constipation Sleep concern Sjogren's disease Vitamin deficiency GERD (gastroesophageal reflux disease) IBS (irritable bowel syndrome) Arthritis Seasonal allergies Anemia Stomach ulcer Anxiety and depression Surgical History Hx of hysterectomy History of total vaginal hysterectomy (TVH) lesion removal from lip Family History Grandmother Heart disease Arthritis Diabetes Hypertension Thyroid disorder Stomach ulcer Mother Asthma Arthritis Hypertension Osteoporosis Aunt Arthritis Heart disease Autoimmune disease Grandfather Cancer lung Father Hypertension Uncle Heart disease Other Anemia Anesthesia complication Anxiety Parkinson disease Skin cancer Social History number of children: 2 sexually active: No Smoking Status: Never smoker alcohol intake: current alcohol intake frequency: holidays/special occasions only details: Social substance use type: does not use caffeine: Yes what type of physical activity do you participate in: none seatbelt use: always do you feel safe at home: Yes 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 No acute concerns at this time. Following up with CLIENT CUSTOMER MANAGER and due to her history of hyperparathyroidism, bone density scan was ordered. Positive family history of osteoporosis in her mother. Also history of chronic intermittent steroid use. No recent fractures. A1c done recently at 5.9 up from 5.8. Had been on compounded semaglutide in which she lost 30 pounds however due to cost discontinued. Continues to follow-up with rheumatology at the [facility] (more content not included)... Normal [facility] Urinalysis, Employeeon 04-25 BILIRUBIN URINE Negative Normal Negative [facility] Comment on above: Order Comment: CLEAN CATCH Performed By: #### L 500.2900, L100.0200, L400.0100 ####[facility] [address] [place], [address] Clarity (U) Clear Normal Clear [facility] Comment on above: Order Comment: CLEAN CATCH Performed By: #### L 500.2900, L100.0200, L400.0100 ####[facility] [address] [place], [address] Color (U) Yellow Normal Yellow [facility] Comment on above: Order Comment: CLEAN CATCH Performed By: #### L 500.2900, L100.0200, L400.0100 ####[facility] [address] [place], [address] GLUCOSE, UR Normal Normal Normal [facility] Comment on above: Order Comment: CLEAN CATCH Performed By: #### L 500.2900, L100.0200, L400.0100 ####[facility] [address] [place], [address] KETONE UR Negative Normal Negative [facility] Comment on above: Order Comment: CLEAN CATCH Performed By: #### L 500.2900, L100.0200, L400.0100 ####[facility] [address] [place], [address] LEUK ESTERASE Negative Normal Negative [facility] Comment on above: Order Comment: CLEAN CATCH Performed By: #### L 500.2900, L100.0200, L400.0100 ####[facility] [address] [place], [address] Nitrite Ql (U) Negative Normal Negative [facility] Comment on above: Order Comment: CLEAN CATCH Performed By: #### L 500.2900, L100.0200, L400.0100 ####[facility] [address] [place], [address] OCCULT BLOOD-UR Negative Normal Negative [facility] Comment on above: Order Comment: CLEAN CATCH Performed By: #### L 500.2900, L100.0200, L400.0100 ####[facility] [address] [place], [address] pH UR 6.5 Normal 5.0 - 8.0 [facility] Comment on above: Order Comment: CLEAN CATCH Performed By: #### L 500.2900, L100.0200, L400.0100 ####[facility] [address] [place], [address] PROT DIPSTX Negative Normal Negative [facility] Comment on above: Order Comment: CLEAN CATCH Performed By: #### L 500.2900, L100.0200, L400.0100 ####[facility] [address] [place], [address] SP.GR. DIPSTX 1.010 Normal 1.002-1.030 [facility] Comment on above: Order Comment: CLEAN CATCH Performed By: #### L 500.2900, L100.0200, L400.0100 ####[facility] [address] [place], [address] UROBILI Normal Normal Normal [facility] Comment on above: Order Comment: CLEAN CATCH Performed By: #### L 500.2900, L100.0200, L400.0100 ####[facility] [address] [place], [address] SCRN MAMM (CAD)W/CHRISTOPHER BILATo n 04-02-2024 SCRN MAMM (CAD)W/CHRISTOPHER BILAT [facility] Imaging Services [address] [place] [address] SCRN MAMM (CAD)W/CHRISTOPHER BILAT MR#: [id number] Acct: [id number] Name: ALMA ADEN Rep #: [id number] : 1980 F 43 From: Sukhdeep mosqueda MD PCP: Dr. Wyatt Marcelo MD Status: [facility] Study: SCRN MAMM (CAD)W/CHRISTOPHER BILAT Date of Exam: 03/17 02/06 Exam# [id number] Ordering Dr: Estrellita Coleman INDUSTRIAL NURSE-C [id number] MAMMOGRAPHY - BILATERAL SCREENING REASON FOR EXAM: Female, 43 years old. Routine annual screening examination. PERTINENT HISTORY: Non-contributory. TECHNIQUE: Digital bilateral breast christopher (3D mammographic acquisition) in the CC and MLO projections. 2-D mediolateral oblique (MLO) and craniocaudad (CC) views of both breasts were obtained. CAD: Full Field Digital Mammography with Computer Added Detection was performed. COMPARISON: Comparison is made with prior study October 31, 2022. FINDINGS: Breast Composition: There are scattered areas of fibroglandular density. There are no dominant masses or suspicious calcifications. No other significant abnormalities are identified. There has been no significant change since the prior study. BI/SCRN MAMM (CAD)W/CHRISTOPHER BILAT IMPRESSION: Stable bilateral screening mammogram. Yearly follow-up mammogram recommended. (A) ASSESSMENT CATEGORY: BIRADS Category 1: Negative. A letter regarding these results will be sent to the patient by the facility within 30 days. Approximately 10% of breast cancers are not detected by mammography. A normal mammogram should not delay biopsy of a clinically suspicious abnormality. [id number] Electronically Signed: Sukhdeep Manzano MD at 9:37 EDT , CC: ZAFAR Coleman; Dr. 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, [address] Absolute Neut 2.7 X10 3/uL Normal 2.0-7.7 [facility] Comment on above: Performed By: #### L 501.6710, L500.3400, L101.9900, L100.0100, L501.1105 ####[facility] [address] [place], [address] Basophils/100 WBC (Bld) 0.7 % Normal 0-1 [facility] Comment on above: Performed By: #### L 501.6710, L500.3400, L101.9900, L100.0100, L501.1105 ####[facility] [address] [place], [address] Eosinophils/100 WBC (Bld) 2.4 % Normal 0-5 [facility] Comment on above: Performed By: #### L 501.6710, L500.3400, L101.9900, L100.0100, L501.1105 ####[facility] [address] [place], [address] Erythrocyte distribution width (RBC) [Ratio] 12.2 % Normal 11.6-14.6 [facility] Comment on above: Performed By: #### L 501.6710, L500.3400, L101.9900, L100.0100, L501.1105 ####[facility] [address] [place], [address] Hematocrit (Bld) [Volume fraction] 38.3 % Normal 37-47 [facility] Comment on above: Performed By: #### L 501.6710, L500.3400, L101.9900, L100.0100, L501.1105 ####[facility] [address] [place], [address] Hemoglobin (Bld) [Mass/Vol] 12.2 g/dL Normal 12.0-15.0 [facility] Comment on above: Performed By: #### L 501.6710, L500.3400, L101.9900, L100.0100, L501.1105 ####[facility] [address] [place], [address] IG% 0.200 Normal 0.0-0.9 [facility] Comment on above: Result Comment: IG% - Immature Granulocytes (promyelocytes, myelocytes and metamyelocytes) > 1% indicates that a LEFT SHIFT is Present. Performed By: #### L 501.6710, L500.3400, L101.9900, L100.0100, L501.1105 ####[facility] [address] [place], [address] Lymphocytes/100 WBC (Bld) 41.8 % High 19-41 [facility] Comment on above: Performed By: #### L 501.6710, L500.3400, L101.9900, L100.0100, L501.1105 ####[facility] [address] [place], [address] MCH (RBC) [Entitic mass] 31.3 pg Normal 27.0-32.0 [facility] Comment on above: Performed By: #### L 501.6710, L500.3400, L101.9900, L100.0100, L501.1105 ####[facility] [address] [place], [address] MCHC (RBC) [Mass/Vol] 31.9 g/dL Low 32-36 [facility] Comment on above: Performed By: #### L 501.6710, L500.3400, L101.9900, L100.0100, L501.1105 ####[facility] [address] [place], [address] MCV (RBC) [Entitic vol] 98.2 fL Normal 81-99 [facility] Comment on above: Performed By: #### L 501.6710, L500.3400, L101.9900, L100.0100, L501.1105 ####[facility] [address] [place], [address] Monocytes/100 WBC (Bld) 7.8 % Normal 0-10 [facility] Comment on above: Performed By: #### L 501.6710, L500.3400, L101.9900, L100.0100, L501.1105 ####[facility] [address] [place], [address] Neutrophils/100 WBC (Bld) 47.1 % Normal 47-70 [facility] Comment on above: Performed By: #### L 501.6710, L500.3400, L101.9900, L100.0100, L501.1105 ####[facility] [address] [place], [address] Nucleated RBC (Bld) [#/Vol] 0 10*3/uL Normal 0-5 [facility] Comment on above: Performed By: #### L 501.6710, L500.3400, L101.9900, L100.0100, L501.1105 ####[facility] [address] [place], [address] Platelet mean volume (Bld) [Entitic vol] 9.7 fL Normal 6.2-12.0 [facility] Comment on above: Performed By: #### L 501.6710, L500.3400, L101.9900, L100.0100, L501.1105 ####[facility] [address] [place], [address] Platelets (Bld) [#/Vol] 398 10*3/uL Normal 150-450 [facility] Comment on above: Performed By: #### L 501.6710, L500.3400, L101.9900, L100.0100, L501.1105 ####[facility] [address] [place], [address] RBC (Bld) [#/Vol] 3.90 10*6/uL Low 4.2-5.4 [facility] Comment on above: Performed By: #### L 501.6710, L500.3400, L101.9900, L100.0100, L501.1105 ####[facility] [address] [place], [address] RDW SD 44.2 fl High 35.1-43.9 [facility] Comment on above: Performed By: #### L 501.6710, L500.3400, L101.9900, L100.0100, L501.1105 ####[facility] [address] [place], [address] WBC (Bld) [#/Vol] 5.7 10*3/uL Normal 4.4-11.0 [facility] Comment on above: Performed By: #### L 501.6710, L500.3400, L101.9900, L100.0100, L501.1105 ####[facility] [address] [place], [address] CRPon 04-01-2024 C-REACTIVE PROT 5.25 mg/L High 0.0-3.0 [facility] Comment on above: Result Comment: C-Re active Protein (CRP) provides useful information for the diagnosis, therapy and monitoring of inflammatory processes and associated diseases. For the evaluation of Relative Risk for Cardiovascular Disease, a High Sensitivity CRP (HSCRP) should be ordered. Performed By: #### L 501.6710, L500.3400, L101.9900, L100.0100, L501.1105 ####[facility] [address] [place], [address] Erythrocyte Sed Rateon 04-01 SED RATE 15 mm/hr Normal 0-30 [facility] Comment on above: Performed By: #### L 501.6710, L500.3400, L101.9900, L100.0100, L501.1105 ####[facility] [address] [place], [address] Liver Profileon 04-01-2024 Albumin [Mass/Vol] 3.7 g/dL Normal 3.2-5.0 [facility] Comment on above: Performed By: #### L 501.6710, L500.3400, L101.9900, L100.0100, L501.1105 ####[facility] [address] [place], [address] ALK P 59 U/L Normal 45-117 [facility] Comment on above: Performed By: #### L 501.6710, L500.3400, L101.9900, L100.0100, L501.1105 ####[facility] [address] [place], [address] ALT [Catalytic activity/Vol] 22 U/L Normal 13-56 [facility] Comment on above: Performed By: #### L 501.6710, L500.3400, L101.9900, L100.0100, L501.1105 ####[facility] [address] [place], [address] AST [Catalytic activity/Vol] 13 U/L Low 15-37 [facility] Comment on above: Performed By: #### L 501.6710, L500.3400, L101.9900, L100.0100, L501.1105 ####[facility] [address] [place], [address] Bilirubin [Mass/Vol] 0.40 mg/dL Normal 0.20-1.00 [facility] Comment on above: Result Comment: For patients on eltrombopag therapy, use of Dimension [place] TBIL is not recommended. Performed By: #### L 501.6710, L500.3400, L101.9900, L100.0100, L501.1105 ####[facility] [address] [place], [address] Bilirubin.direct [Mass/Vol] 0.08 mg/dL Normal 0.00-0.30 [facility] Comment on above: Performed By: #### L 501.6710, L500.3400, L101.9900, L100.0100, L501.1105 ####[facility] [address] [place], [address] Globulin (S) [Mass/Vol] 3.8 g/dL Normal 2.2-4.2 [facility] Comment on above: Performed By: #### L 501.6710, L500.3400, L101.9900, L100.0100, L501.1105 ####[facility] [address] [place], [address] T PROT 7.5 g/dL Normal 6.4-8.2 [facility] Comment on above: Performed By: #### L 501.6710, L500.3400, L101.9900, L100.0100, L501.1105 ####[facility] [address] [place], [address] Serum Creatinine AND GFRon 0 04-01-2024 Creatinine [Mass/Vol] 0.85 mg/dL Normal 0.55-1.02 [facility] Comment on above: Result Comment: The validity of the calculated GFR GFRAA in patients over 70 years has not been determined. Clinical correlation is essential. Performed By: #### L 501.6710, L500.3400, L101.9900, L100.0100, L501.1105 ####[facility] [address] [place], [address] EST GFR - AA 95 mL/min Normal >60 [facility] Comment on above: Result Comment: Afri can Turkish GFR Calc Performed By: #### L 501.6710, L500.3400, L101.9900, L100.0100, L501.1105 ####[facility] [address] [place], [address] GFR/1.73 sq M.predicted among non-blacks MDRD (S/P/Bld) [Vol rate/Area] 79 mL/min/{1.73_m2} Normal >60 [facility] Comment on above: Result Comment: Non- GFR Calc Performed By: #### L 501.6710, L500.3400, L101.9900, L100.0100, L501.1105 ####[facility] [address] 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) Chief Complaint: annual Is patient in pain?: No Allergies sumatriptan Allergy (Severe, Verified 03/20/24 09:36) headache penicillin G Allergy (Mild, Verified 03/20/24 09:36) Other latex Allergy (Verified 03/20/24 09:36) Rash escitalopram (From Lexapro) Adverse Reaction (Verified 03/20/24 09:36) Other Medications ???Medication ???Instructions ???Recorded ???Confirmed ???Type ferrous sulfate 325 mg (65 mg 325 mg PO DAILY 12/16/19 03/20/24 History iron) tablet (FeroSul) alprazolam 0.25 mg tablet (Xanax) 0.25 mg PO DAILY PRN PRN Anxiety 09/29/22 03/20/24 Rx #20 tabs losartan 100 mg tablet 100 mg PO DAILY #90 tabs 03/27/23 03/20/24 Rx prednisone 10 mg tablet 10 mg PO DAILY PRN Arthritis #100 06/05/23 03/20/24 Rx tabs levothyroxine 150 mcg tablet 150 mcg PO .5 days per week #90 11/14/23 03/20/24 Rx tabs mecobalamin (vitamin B12) 1,000 1,000 mcg PO DAILY 11/14/23 03/20/24 History mcg chewable tablet melatonin 3 mg capsule 3 mg PO HS PRN 11/14/23 03/20/24 History upadacitinib 15 mg tablet,extended 15 mg PO DAILY 11/14/23 03/20/24 History release 24 hr (Rinvoq) ubrogepant 100 mg tablet (Ubrelvy) 100 mg PO ONCE PRN MIGRAINES #15 12/12/23 03/20/24 Rx tabs benzonatate 100 mg capsule 100 mg PO BID-TID PRN cough #60 02/06/24 03/20/24 Rx caps duloxetine 30 mg capsule,delayed 30 mg PO DAILY #90 caps 03/07/24 03/20/24 Rx release duloxetine 60 mg capsule,delayed 60 mg PO QDAY DEPRESSION #90 caps 03/08/24 03/20/24 Rx release (Cymbalta) Is last menstrual period known: No Post menopausal: No Patient : No : No Control Method: total hyst [facility] Medical History Borderline type 2 diabetes mellitus Preventative health care Palpitations Autoimmune disease Cat bite Primary hyperparathyroidism B12 deficiency Urge incontinence Prediabetes Hypercalcemia COVID-19 Insulin resistance Depression Anxiety Alcohol use History of steroid therapy Thyroid disease Restless legs Back pain Migraine headache History of hiatal hernia Gastric reflux Non-smoker BiPAP (biphasic positive airway pressure) dependence Sleep apnea Shortness of breath on exertion Leg cramps History of edema History of echocardiogram Hypertension History of irregular heartbeat Constipation Sleep concern Sjogren's disease Vitamin deficiency GERD (gastroesophageal reflux disease) IBS (irritable bowel syndrome) Arthritis Seasonal allergies Anemia Stomach ulcer Anxiety and depression Surgical History Hx of hysterectomy History of total vaginal hysterectomy (TVH) lesion removal from lip Family History (Updated 03/20/24 @ 09:39 by Rhonda Villa) Grandmother Heart disease Arthritis Diabetes Hypertension Thyroid disorder Stomach ulcer Mother Asthma Arthritis Hypertension Osteoporosis Aunt Arthritis Heart disease Autoimmune disease Grandfather Cancer lung Father Hypertension Uncle Heart disease Other Anemia Anesthesia complication Anxiety Parkinson disease Skin cancer Social History (Updated 03/20/24 @ 09:40 by Rhonda Villa) number of children: 2 sexually active: No Smoking Status: Never smoker alcohol intake: current alcohol intake frequency: holidays/special occasions only details: Social substance use type: does not use caffeine: Yes what type of physical activity do you participate in: none seatbelt use: always do you feel safe at home: Yes 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 Date Name GA/Weeks Outcome Route Bth Weight Gen Labor Lgth Anesthesia Del Locatn Provider FOB Unknown 2006 Carrie 40 live - full term Unknown 2008 Daryl 40 live - full term HPI Encounter for routine gynecological examination Details: ALMA ADEN is a 43 year old who presents for annual exam. She reports no issues or concerns today. Last PAP: 2018; s/p hysterectomy. History of (more content not included)... Normal [facility] T4 Free Directon 02-13-2024 T4 FREE DIRECT 1.20 ng/dL Normal 0.76-1.46 [facility] Comment on above: Performed By: #### L 506.0400, L501.9520 ####[facility] [address] [place], [address] Thyroid Stim Hormone (TSH)on 02-13-2024 TSH 1.68 uIU/mL Normal 0.358-3.74 [facility] Comment on above: Performed By: #### L 506.0400, L501.9520 #### [facility] [address] [place], [place], [address] Internal Medicine Office Vis iton 02-06-2024 Internal Medicine Office Visit [facility] [address] [place] [address] [place] [address] OFFICE VISIT Date of Service: 02/06/24 MR#: [id number] Acct: [id number] Name: ALMA ADEN Rep #: [id number] : 1980 Provider: ZAFAR garcia Age/Sex: 43/F [place] [facility] Status: Signed Intake Vital Signs 01/18/24 12:05 02/06/24 08:17 Height 5 ft 8 in BP 140/88 H Blood Pressure Location Lt brachial Position Sitting Respiration 16 Pulse 80 Pulse Source Monitor Temp 97.0 F L Temp Source Temporal Pulse Oximetry (%) 97 Oxygen Delivery Method room air Intake Visit Reasons: SINUS INFECTION Chief Complaint: med dicussion Allergies sumatriptan Allergy (Severe, Verified 01/18/24 12:06) headache penicillin G Allergy (Mild, Verified 01/18/24 12:06) Other latex Allergy (Verified 01/18/24 12:06) Rash escitalopram (From Lexapro) Adverse Reaction (Verified 01/18/24 12:06) Other [facility] Medical History Borderline type 2 diabetes mellitus Preventative health care Palpitations Autoimmune disease Cat bite Primary hyperparathyroidism B12 deficiency Urge incontinence Prediabetes Hypercalcemia COVID-19 Insulin resistance Depression Anxiety Alcohol use History of steroid therapy Thyroid disease Restless legs Back pain Migraine headache History of hiatal hernia Gastric reflux Non-smoker BiPAP (biphasic positive airway pressure) dependence Sleep apnea Shortness of breath on exertion Leg cramps History of edema History of echocardiogram Hypertension History of irregular heartbeat Constipation Sleep concern Sjogren's disease Vitamin deficiency GERD (gastroesophageal reflux disease) IBS (irritable bowel syndrome) Arthritis Seasonal allergies Anemia Stomach ulcer Anxiety and depression Surgical History Hx of hysterectomy History of total vaginal hysterectomy (TVH) lesion removal from lip Family History Grandmother Heart disease Arthritis Diabetes Hypertension Thyroid disorder Stomach ulcer Mother Asthma Arthritis Hypertension Aunt Arthritis Heart disease Autoimmune disease Grandfather Cancer lung Father Hypertension Uncle Heart disease Other Anemia Anesthesia complication Anxiety Parkinson disease Skin cancer Social History Smoking Status: Never smoker alcohol intake: current alcohol intake frequency: holidays/special occasions only details: Social substance use type: does not use caffeine: Yes what type of physical activity do you participate in: none seatbelt use: always do you feel safe at home: Yes 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 Denies ill contacts. Denies history of asthma/lung disease. No fevers, chills, N/V/D. Reports sinus burning and pain to bilateral upper nose/ethmoid sinus region and associated headaches. Exam Const General: cooperative and healthy appearing [facility] Head: normal to inspection Ears: hearing grossly normal bilaterally, external ears normal and TM's normal bilaterally Nose: external nose normal, nares normal and nasal discharge clear bilaterally Face and sinus: face symmetric and sinus tenderness ethmoid (bilaterally) Mouth: oral mucosae normal, lip normal and tongue normal Teeth and gingiva: dentition normal Throat: posterior oropharynx abnormal cobblestoning and postnasal drainage Eyes General: appearance normal, both eyes and all related structures Neck Neck: normal visual inspection, full ROM and no lymphadenopathy Chest Chest palpation inspection: normal inspection of the chest Resp Effort Inspection: normal respiratory effort, able to speak in complete sentences, symmetric chest movement and cough Quality of cough: dry Auscultation: Bilateral: Clear to Auscultation Cardio Rate: regular rate Rhythm: regular rhythm Heart Sounds: S1 normal and S2 normal GI Inspection: normal to inspection Musc Cervical Spine: normal cervical lordosis Thoracic/Lumbar Spine: thoracic and lumbar spine normal to inspection Skin General: no rashes or lesions noted Neuro General: patient alert, patient awake and patient oriented x3 Cranial Nerves: CN's II-XI intact bilaterally Extrem General: normal to inspection and full ROM Psych Appearance: grossly normal Mental Status: mental status grossly normal Coding Level of Care Code Established Pt O (more content not included)... Normal [facility] Emergency Department Summary on 01-18-2024 Emergency Department Summary [facility] Medical Records Department [address] [place] [address] Emergency Department Summary 01/18/24 MR#: [id number] Acct: [id number] Name: ALMA ADEN Rep #: [id number] : 1980 43 From: Susy MINER PCP: Dr. Wyatt Marcelo MD Status:DEP ER Location: ED HPI History of Present Illness Chief Complaint: Laceration Narrative Narrative: Patient presenting today with a laceration to her left thumb from a clean kitchen knife that occurred this morning. Her tetanus is up-to-date. [facility] Medical History Borderline type 2 diabetes mellitus Preventative health care Palpitations Autoimmune disease Cat bite Primary hyperparathyroidism B12 deficiency Urge incontinence Prediabetes Hypercalcemia COVID-19 Insulin resistance Depression Anxiety Alcohol use History of steroid therapy Thyroid disease Restless legs Back pain Migraine headache History of hiatal hernia Gastric reflux Non-smoker BiPAP (biphasic positive airway pressure) dependence Sleep apnea Shortness of breath on exertion Leg cramps History of edema History of echocardiogram Hypertension History of irregular heartbeat Constipation Sleep concern Sjogren's disease Vitamin deficiency GERD (gastroesophageal reflux disease) IBS (irritable bowel syndrome) Arthritis Seasonal allergies Anemia Stomach ulcer Anxiety and depression Home Medications ???Medication ???Instructions ???Recorded ???Last Taken ???Type ferrous sulfate 325 mg (65 mg 325 mg PO DAILY 12/16/19 Unknown History iron) tablet (FeroSul) alprazolam 0.25 mg tablet (Xanax) 0.25 mg PO DAILY PRN PRN Anxiety 09/29/22 Unknown Rx #20 tabs losartan 100 mg tablet 100 mg PO DAILY #90 tabs 03/27/23 Unknown Rx prednisone 10 mg tablet 10 mg PO DAILY PRN Arthritis #100 06/05/23 Unknown Rx tabs duloxetine 60 mg capsule,delayed 60 mg PO QDAY DEPRESSION #90 caps 09/07/23 Unknown Rx release (Cymbalta) semaglutide (weight loss) 0.25 0.25 mg (0.5 mL) subcut QWEEK #2 mL 10/03/23 Unknown Rx mg/0.5 mL subcutaneous pen injector (Albertoy) insulin syringe needleless 1 mL #20 ea 10/10/23 Unknown Rx safety needles 25 gauge x 1 (BD #20 ea 10/10/23 Unknown Rx Eclipse) levothyroxine 150 mcg tablet 150 mcg PO .5 days per week #90 11/14/23 Unknown Rx tabs mecobalamin (vitamin B12) 1,000 1,000 mcg PO DAILY 11/14/23 Unknown History mcg chewable tablet melatonin 3 mg capsule 3 mg PO HS PRN 11/14/23 Unknown History upadacitinib 15 mg tablet,extended 15 mg PO DAILY 11/14/23 Unknown History release 24 hr (Rinvoq) duloxetine 30 mg capsule,delayed 30 mg PO DAILY #90 caps 11/30/23 Unknown Rx release ubrogepant 100 mg tablet (Ubrelvy) 100 mg PO ONCE PRN MIGRAINES #15 12/12/23 Unknown Rx tabs Allergy/AdvReac Type Severity Reaction Status Date / Time sumatriptan Allergy Severe headache Verified 01/18/24 12:06 penicillin G Allergy Mild Other Verified 01/18/24 12:06 latex Allergy Rash Verified 01/18/24 12:06 escitalopram (From Lexapro) AdvReac Other Verified 07/04/24 12:06 Family History Grandmother Heart disease Arthritis Diabetes Hypertension Thyroid disorder Stomach ulcer Mother Asthma Arthritis Hypertension Aunt Arthritis Heart disease Autoimmune disease Grandfather Cancer lung Father Hypertension Uncle Heart disease Other Anemia Anesthesia complication Anxiety Parkinson disease Skin cancer Surgical History Hx of hysterectomy History of total vaginal hysterectomy (TVH) lesion removal from lip Social History Smoking Status: Never smoker alcohol intake: current alcohol intake frequency: holidays/special occasions only details: Social substance use type: does not use caffeine: Yes what type of physical activity do you participate in: none seatbelt use: always do you feel safe at home: Yes 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 Normal [facility] CBC W/Diff, Automatedon - Absolute Lymph 2.49 X10 3/uL Normal 0.83-4.51 [facility] Comment on above: Performed By: #### L 101.9900, L501.6710, L501.1105, L100.0100, L500.3400 ####[facility] [address] [place], [place], [id number] Absolute Neut 3.7 X10 3/uL Normal 2.0-7.7 [facility] Comment on above: Performed By: #### L 101.9900, L501.6710, L501.1105, L100.0100, L500.3400 ####[facility] [address] [place], [address] Basophils/100 WBC (Bld) 0.7 % Normal 0-1 [facility] Comment on above: Performed By: #### L 101.9900, L501.6710, L501.1105, L100.0100, L500.3400 ####[facility] [address] [place], [address] Eosinophils/100 WBC (Bld) 4.0 % Normal 0-5 [facility] Comment on above: Performed By: #### L 101.9900, L501.6710, L501.1105, L100.0100, L500.3400 ####[facility] [address] [place], [address] Erythrocyte distribution width (RBC) [Ratio] 13.1 % Normal 11.6-14.6 [facility] Comment on above: Performed By: #### L 101.9900, L501.6710, L501.1105, L100.0100, L500.3400 ####[facility] [address] [place], [address] Hematocrit (Bld) [Volume fraction] 40.2 % Normal 37-47 [facility] Comment on above: Performed By: #### L 101.9900, L501.6710, L501.1105, L100.0100, L500.3400 ####[facility] [address] [place], [address] Hemoglobin (Bld) [Mass/Vol] 12.7 g/dL Normal 12.0-15.0 [facility] Comment on above: Performed By: #### L 101.9900, L501.6710, L501.1105, L100.0100, L500.3400 ####[facility] [address] [place], [address] IG% 0.400 Normal 0.0-0.9 [facility] Comment on above: Result Comment: IG% - Immature Granulocytes (promyelocytes, myelocytes and metamyelocytes) > 1% indicates that a LEFT SHIFT is Present. Performed By: #### L 101.9900, L501.6710, L501.1105, L100.0100, L500.3400 ####[facility] [address] [place], [address] Lymphocytes/100 WBC (Bld) 35.5 % Normal 19-41 [facility] Comment on above: Performed By: #### L 101.9900, L501.6710, L501.1105, L100.0100, L500.3400 ####[facility] [address] [place], [address] MCH (RBC) [Entitic mass] 30.2 pg Normal 27.0-32.0 [facility] Comment on above: Performed By: #### L 101.9900, L501.6710, L501.1105, L100.0100, L500.3400 ####[facility] [address] [place], [address] MCHC (RBC) [Mass/Vol] 31.6 g/dL Low 32-36 [facility] Comment on above: Performed By: #### L 101.9900, L501.6710, L501.1105, L100.0100, L500.3400 ####[facility] [address] [place], [address] MCV (RBC) [Entitic vol] 95.7 fL Normal 81-99 [facility] Comment on above: Performed By: #### L 101.9900, L501.6710, L501.1105, L100.0100, L500.3400 ####[facility] [address] [place], [address] Monocytes/100 WBC (Bld) 6.8 % Normal 0-10 [facility] Comment on above: Performed By: #### L 101.9900, L501.6710, L501.1105, L100.0100, L500.3400 ####[facility] [address] [place], [address] Neutrophils/100 WBC (Bld) 52.6 % Normal 47-70 [facility] Comment on above: Performed By: #### L 101.9900, L501.6710, L501.1105, L100.0100, L500.3400 ####[facility] [address] [place], [address] Nucleated RBC (Bld) [#/Vol] 0 10*3/uL Normal 0-5 [facility] Comment on above: Performed By: #### L 101.9900, L501.6710, L501.1105, L100.0100, L500.3400 ####[facility] [address] [place], [address] Platelet mean volume (Bld) [Entitic vol] 9.0 fL Normal 6.2-12.0 [facility] Comment on above: Performed By: #### L 101.9900, L501.6710, L501.1105, L100.0100, L500.3400 ####[facility] [address] [place], [address] Platelets (Bld) [#/Vol] 348 10*3/uL Normal 150-450 [facility] Comment on above: Performed By: #### L 101.9900, L501.6710, L501.1105, L100.0100, L500.3400 ####[facility] [address] [place], [address] RBC (Bld) [#/Vol] 4.20 10*6/uL Normal 4.2-5.4 [facility] Comment on above: Performed By: #### L 101.9900, L501.6710, L501.1105, L100.0100, L500.3400 ####[facility] [address] [place], [address] RDW SD 46.2 fl High 35.1-43.9 [facility] Comment on above: Performed By: #### L 101.9900, L501.6710, L501.1105, L100.0100, L500.3400 ####[facility] [address] [place], [address] WBC (Bld) [#/Vol] 7.0 10*3/uL Normal 4.4-11.0 [facility] Comment on above: Performed By: #### L 101.9900, L501.6710, L501.1105, L100.0100, L500.3400 ####[facility] [address] [place], [address] CRPon 01-12-2024 C-REACTIVE PROT 4.86 mg/L High 0.0-3.0 [facility] Comment on above: Result Comment: C-Re active Protein (CRP) provides useful information for the diagnosis, therapy and monitoring of inflammatory processes and associated diseases. For the evaluation of Relative Risk for Cardiovascular Disease, a High Sensitivity CRP (HSCRP) should be ordered. Performed By: #### L 101.9900, L501.6710, L501.1105, L100.0100, L500.3400 ####[facility] [address] [place], [address] Erythrocyte Sed Rateon 01-11 SED RATE 11 mm/hr Normal 0-30 [facility] Comment on above: Performed By: #### L 101.9900, L501.6710, L501.1105, L100.0100, L500.3400 ####[facility] [address] [place], [address] Liver Profileon 01-12-2024 Albumin [Mass/Vol] 3.7 g/dL Normal 3.2-5.0 [facility] Comment on above: Performed By: #### L 101.9900, L501.6710, L501.1105, L100.0100, L500.3400 ####[facility] [address] [place], [address] ALK P 78 U/L Normal 45-117 [facility] Comment on above: Performed By: #### L 101.9900, L501.6710, L501.1105, L100.0100, L500.3400 ####[facility] [address] [place], [address] ALT [Catalytic activity/Vol] 24 U/L Normal 13-56 [facility] Comment on above: Performed By: #### L 101.9900, L501.6710, L501.1105, L100.0100, L500.3400 ####[facility] [address] [place], [address] AST [Catalytic activity/Vol] 9 U/L Low 15-37 [facility] Comment on above: Performed By: #### L 101.9900, L501.6710, L501.1105, L100.0100, L500.3400 ####[facility] [address] [place], [address] Bilirubin [Mass/Vol] 0.40 mg/dL Normal 0.20-1.00 [facility] Comment on above: Result Comment: For patients on eltrombopag therapy, use of Dimension [place] TBIL is not recommended. Performed By: #### L 101.9900, L501.6710, L501.1105, L100.0100, L500.3400 ####[facility] [address] [place], [address] Bilirubin.direct [Mass/Vol] 0.13 mg/dL Normal 0.00-0.30 [facility] Comment on above: Performed By: #### L 101.9900, L501.6710, L501.1105, L100.0100, L500.3400 ####[facility] [id number] [place], [address] Globulin (S) [Mass/Vol] 4.0 g/dL Normal 2.2-4.2 [facility] Comment on above: Performed By: #### L 101.9900, L501.6710, L501.1105, L100.0100, L500.3400 ####[facility] [id number] [place], [address] T PROT 7.7 g/dL Normal 6.4-8.2 [facility] Comment on above: Performed By: #### L 101.9900, L501.6710, L501.1105, L100.0100, L500.3400 ####[facility] [id number] [place], [address] Serum Creatinine AND GFRon 0 - Creatinine [Mass/Vol] 0.90 mg/dL Normal 0.55-1.02 [facility] Comment on above: Result Comment: The validity of the calculated GFR GFRAA in patients over 70 years has not been determined. Clinical correlation is essential. Performed By: #### L 101.9900, L501.6710, L501.1105, L100.0100, L500.3400 ####[facility] [id number] [place], [address] EST GFR - AA 89 mL/min Normal >60 [facility] Comment on above: Result Comment: Afri can Turkish GFR Calc Performed By: #### L 101.9900, L501.6710, L501.1105, L100.0100, L500.3400 ####[facility] [id number] [place], [address] GFR/1.73 sq M.predicted among non-blacks MDRD (S/P/Bld) [Vol rate/Area] 73 mL/min/{1.73_m2} Normal >60 [facility] Comment on above: Result Comment: Non- GFR Calc Performed By: #### L 101.9900, L501.6710, L501.1105, L100.0100, L500.3400 ####[facility] [id number] [place], [address] Basophil percentageOrdered B y: Liliana Bangura on 10-17-2023 Hemoglobin (Bld) [Mass/Vol] 13.1 g/dL 12.0-15.0 [facility] WBC (Bld) [#/Vol] 6.5 10*3/uL 4.4-11.0 [facility] Determination of erythrocyte mean corpuscular volume (MCV)Ordered By: Liliana Bangura on 10-17-2023 MCV (RBC) [Entitic vol] 94.8 fL 81-99 [facility] Erythrocyte distribution wid th ratioOrdered By: Liliana Bangura on 10-17-2023 Erythrocyte distribution width (RBC) [Ratio] 12.5 % 11.6-14.6 [facility] Erythrocyte distribution wid th standard deviationOrdered By: Liliana Bangura on 10-17-2023 Erythrocyte distribution width (RBC) [Entitic vol] 43.4 fL 35.1-43.9 [facility] Hematocrit Auto (Bld) [Volum e fraction]Ordered By: Liliana Bangura on 10-17-2023 Hematocrit (Bld) [Volume fraction] 40.5 % 37-47 [facility] Iron measurement (mass/mass) Ordered By: Liliana Bangura on 10-17-2023 Iron (Unsp spec) [Mass/Mass] 69 ug/dL 50-170 [facility] Laboratory - Chemistry and C hemistry - challengeOrdered By: Liliana Bangura on 10-17-2023 Cobalamin (Vitamin B12) [Mass/Vol] 890 pg/mL 211-911 [facility] Ferritin [Mass/Vol] 72 ng/mL 8-252 [facility] Laboratory - Hematology and Cell countsOrdered By: Liliana Bangura on 10-17-2023 MCH (RBC) [Entitic mass] 30.7 pg 27.0-32.0 [facility] MCHC (RBC) [Mass/Vol] 32.3 g/dL 32-36 [facility] Platelet mean volume (Bld) [Entitic vol] 9.2 fL 6.2-12.0 [facility] Platelets (Bld) [#/Vol] 336 10*3/uL 150-450 [facility] No Panel InformationOrdered By: Liliana Bangura on 10-17-2023 Total Iron Binding Capacity 394 ug/dL 250-450 [facility] RBC Auto (Bld) [#/Vol]Ordere d By: Liliana Bangura on 10-17-2023 RBC (Bld) [#/Vol] 4.27 10*6/uL 4.2-5.4 [facility] No Panel InformationOrdered By: STEVEN BOLES on 10-12-2023 Hepatitis B Surface Antigen Non-Reactive Nonreactive [facility] Hepatitis C Antibody Non-Reactive Nonreactive [facility] Comment on above: Non Reactive: < 0.8 Equivocal: >/= 0.8 to < 1.0 Reactive: >/= 1.0The CDC requires that a reactive/equivocal HCV antibody result be sent out for confirmation. HCV Quant by PCR testing. Qualitative QuantiFERON-TB g old in tube testOrdered By: STEVEN BOLES on 10-12-2023 M. tuberculosis tuberculin stim IFN-g Ql (Bld) 0.07 IU/mL . [facility] Serum hepatitis B virus core antibody detectionOrdered By: STEVEN BOLES on 10-12-2023 HBV core Ab Ql (S) Negative Negative [facility] Comment on above: Performed at: [address] [id number] Director: Levi Covarrubias PhD, Phone: [phone] Thin prep Papanicolaou smear with manual screeningOrdered By: STEVEN BOLES on 10-12-2023 Thin prep Papanicolaou smear with manual screening Comment . [facility] Comment on above: QuantiFERON-TB Gold Plus is a qualitative indirect test forM tuberculosis infection (including disease) and isintended for use in conjunction with risk assessment,radiography, and other medical and diagnostic evaluations.The QuantiFERON-TB Gold Plus result is determined bysubtracting the Nil value from either TB antigen (Ag)value. The Mitogen tube serves as a control for the test. Thin prep Papanicolaou smear with manual screening 0.06 IU/mL . [facility] Thin prep Papanicolaou smear with manual screening > 10.00 IU/mL . [facility] Thin prep Papanicolaou smear with manual screening Negative Negative [facility] Comment on above: No response to M tub erculosis antigens detected.Infection with M tuberculosis is unlikely, but high riskindividuals should be considered for additional testing(ATS/IDSA/CDC Clinical Practice Guidelines, 2017). Thereference range is an Antigen minus Nil result of <0.35IU/mL.The specimen received for QuantiFERON testing was incubatedby the ordering institution. Specific procedures outlinedin our Directory of Services and in the package insert forthe QuantiFERON Gold (In Tube) test must be followed toenable for proper stimulation of cells for the productionof interferon gamma. Chemiluminescence immunoassaymethodology Absolute lymphocyte counton 08-17-2023 Lymphocytes Auto (Unsp spec) [#/Vol] 3.56 10*3/uL 0.83-4.51 [facility] Automated lymphocyte count a s percentage of total leukocyteson 08-17-2023 Lymphocytes/100 WBC Auto (Unsp spec) 32.5 % 19-41 [facility] Basophil percentageon 2023 Basophils/100 WBC (Bld) 0.7 % 0-1 [facility] Bilirubin [Mass/Vol] 0.20 mg/dL 0.20-1.00 [facility] Comment on above: For patients on eltr ombopag therapy, use of Dimension [place] TBIL is not recommended. Eosinophils/100 WBC (Bld) 1.3 % 0-5 [facility] Hemoglobin (Bld) [Mass/Vol] 11.5 g/dL 12.0-15.0 [facility] Monocytes/100 WBC (Bld) 6.8 % 0-10 [facility] Neutrophils (Bld) [#/Vol] 6.4 10*3/uL 2.0-7.7 [facility] Neutrophils/100 WBC (Bld) 58.2 % 47-70 [facility] Protein [Mass/Vol] 7.4 g/dL 6.4-8.2 [facility] WBC (Bld) [#/Vol] 11.0 10*3/uL 4.4-11.0 [facility] Determination of erythrocyte mean corpuscular volume (MCV)on 08-17-2023 MCV (RBC) [Entitic vol] 97.3 fL 81-99 [facility] Direct bilirubinon Bilirubin.direct [Mass/Vol] 0.08 mg/dL 0.00-0.30 [facility] Erythrocyte distribution wid th ratioon 08-17-2023 Erythrocyte distribution width (RBC) [Ratio] 13.1 % 11.6-14.6 [facility] Erythrocyte distribution wid th standard deviationon 08-17-2023 Erythrocyte distribution width (RBC) [Entitic vol] 46.6 fL 35.1-43.9 [facility] Erythrocyte sedimentation ra avel 08-17-2023 ESR (Bld) [Velocity] 11 mm/h 0-30 [facility] Hematocrit Auto (Bld) [Volum e fraction]on 08-17-2023 Hematocrit (Bld) [Volume fraction] 36.5 % 37-47 [facility] Immature granulocytes/100 WB C Auto (Bld)on 08-17-2023 Immature granulocytes/100 WBC (Bld) 0.500 % 0.0-0.9 [facility] Comment on above: IG% - Immature Granu locytes (promyelocytes, myelocytes and metamyelocytes) > 1% indicates that a LEFT SHIFT is Present. Laboratory - Chemistry and C hemistry - challengeon 08-17-2023 ALP [Catalytic activity/Vol] 73 U/L 45-117 [facility] ALT [Catalytic activity/Vol] 46 U/L 13-56 [facility] Globulin (S) [Mass/Vol] 3.8 g/dL 2.2-4.2 [facility] Laboratory - Hematology and Cell countson 08-17-2023 MCH (RBC) [Entitic mass] 30.7 pg 27.0-32.0 [facility] MCHC (RBC) [Mass/Vol] 31.5 g/dL 32-36 [facility] Nucleated RBC/100 WBC (Bld) [Ratio] 0 % 0-5 [facility] Platelets (Bld) [#/Vol] 306 10*3/uL 150-450 [facility] No Panel Informationon 08-17 C-Reactive Protein Extended Range 4.60 mg/L 0.0-3.0 [facility] Comment on above: C-Reactive Protein ( CRP) provides useful information for thediagnosis, therapy and monitoring of inflammatory processesand associated diseases. For the evaluation of Relative Riskfor Cardiovascular Disease, a High Sensitivity CRP (HSCRP)should be ordered. Estimated GFR (MDRD) Amer 91 mL/min >60 [facility] Comment on above: GFR Calc Estimated GFR (MDRD) Non-Af Amer 76 mL/min >60 [facility] Comment on above: Non- GFR Calc Platelet mean volume Cedric-Ec ker (Bld) [Entitic vol]on 08-17-2023 Platelet mean volume (Bld) [Entitic vol] 8.7 fL 6.2-12.0 [facility] RBC Auto (Bld) [#/Vol]on RBC (Bld) [#/Vol] 3.75 10*6/uL 4.2-5.4 [facility] Serum or plasma creatinine m easurement (mass/volume)on 08-17-2023 Creatinine [Mass/Vol] 0.88 mg/dL 0.55-1.02 [facility] Comment on above: The validity of the calculated GFR & GFRAA in patients over 70 years has not been determined. Clinical correlation is essential. Thin prep Papanicolaou smear with manual screeningon 08-17-2023 Thin prep Papanicolaou smear with manual screening 3.6 g/dL 3.2-5.0 [facility] Thin prep Papanicolaou smear with manual screening 17 U/L 15-37 [facility] Absolute lymphocyte countOrd ered By: Cali Lou on 06-16-2023 Lymphocytes Auto (Unsp spec) [#/Vol] 1.93 10*3/uL 0.83-4.51 [facility] Basophil percentageOrdered B y: Cali Lou on 06-16-2023 Basophils/100 WBC (Bld) 0.5 % 0-1 [facility] Bilirubin [Mass/Vol] 0.30 mg/dL 0.20-1.00 [facility] Comment on above: For patients on eltr ombopag therapy, use of Dimension [place] TBIL is not recommended. Chloride [Moles/Vol] 105 mmol/L 98-107 [facility] Eosinophils/100 WBC (Bld) 2.2 % 0-5 [facility] Glucose [Mass/Vol] 80 mg/dL 74-106 [facility] Neutrophils (Bld) [#/Vol] 2.9 10*3/uL 2.0-7.7 [facility] Neutrophils/100 WBC (Bld) 52.2 % 47-70 [facility] Potassium [Moles/Vol] 4.0 mmol/L 3.5-5.1 [facility] Protein [Mass/Vol] 7.2 g/dL 6.4-8.2 [facility] Sodium [Moles/Vol] 136 mmol/L 136-145 [facility] WBC (Bld) [#/Vol] 5.6 10*3/uL 4.4-11.0 [facility] Blood erythrocytes count (nu mber/volume)Ordered By: Cali Lou on 06-16-2023 RBC (Bld) [#/Vol] 3.91 10*6/uL 4.2-5.4 [facility] Blood hemoglobin measurement (mass/volume)Ordered By: Cali Lou on 06-16-2023 Hemoglobin (Bld) [Mass/Vol] 12.1 g/dL 12.0-15.0 [facility] Blood lymphocytes/100 leukoc ytesOrdered By: Cali Lou on 06-16-2023 Lymphocytes/100 WBC (Bld) 34.6 % 19-41 [facility] Blood monocytes/100 leukocyt esOrdered By: Cali Lou on 06-16-2023 Monocytes/100 WBC (Bld) 10.1 % 0-10 [facility] Blood platelet mean volumeOr dered By: Cali Lou on 06-16-2023 Platelet mean volume (Bld) [Entitic vol] 9.3 fL 6.2-12.0 [facility] Determination of erythrocyte mean corpuscular volume (MCV)Ordered By: Cali Lou on 06-16-2023 MCV (RBC) [Entitic vol] 96.2 fL 81-99 [facility] Direct bilirubinOrdered By: Cali Lou on 06-16-2023 Bilirubin.direct [Mass/Vol] 0.08 mg/dL 0.00-0.30 [facility] Hematocrit Auto (Bld) [Volum e fraction]Ordered By: Cali Lou on 06-16-2023 Hematocrit (Bld) [Volume fraction] 37.6 % 37-47 [facility] Laboratory - Chemistry and C hemistry - challengeOrdered By: Cali Lou on 06-16-2023 ALP [Catalytic activity/Vol] 54 U/L 45-117 [facility] ALT [Catalytic activity/Vol] 33 U/L 13-56 [facility] CO2 [Moles/Vol] 27.0 mmol/L 21.0-32.0 [facility] Globulin (S) [Mass/Vol] 3.5 g/dL 2.2-4.2 [facility] Urea nitrogen/Creatinine [Mass ratio] 13.2 mg/mg 10-20 [facility] Laboratory - Hematology and Cell countsOrdered By: Cali Lou on 06-16-2023 Erythrocyte distribution width (RBC) [Entitic vol] 46.5 fL 35.1-43.9 [facility] Erythrocyte distribution width (RBC) [Ratio] 13.2 % 11.6-14.6 [facility] Immature granulocytes/100 WBC (Bld) 0.400 % 0.0-0.9 [facility] Comment on above: IG% - Immature Granu locytes (promyelocytes, myelocytes and metamyelocytes) > 1% indicates that a LEFT SHIFT is Present. MCH (RBC) [Entitic mass] 30.9 pg 27.0-32.0 [facility] Nucleated RBC/100 WBC (Bld) [Ratio] 0 % 0-5 [facility] MCHC Auto (RBC) [Mass/Vol]Or dered By: Cali Lou on 06-16-2023 MCHC (RBC) [Mass/Vol] 32.2 g/dL 32-36 [facility] No Panel InformationOrdered By: Cali Lou on 06-16-2023 Estimated GFR (MDRD) Amer 108 mL/min >60 [facility] Comment on above: GFR Calc Estimated GFR (MDRD) Non-Af Amer 89 mL/min >60 [facility] Comment on above: Non- GFR Calc Parathyroid Hormone (Intact) 113.6 pg/mL 18.4-80.1 [facility] Thyroid Stimulating Hormone (TSH) 1.93 uIU/mL 0.358-3.74 [facility] Vitamin D 25-Hydroxy 40.8 ng/mL [facility] Comment on above: Vitamin D 25(OH) Sta tus Range Deficiency <20 ng/mL (50nmol/L) Insufficiency 20 - 30 ng/mL (50 - 75 nmol/L) Sufficiency 30 - 100 ng/mL (75 - 250 nmol/L) Toxicity >100 ng/mL (>250 nmol/L) Platelets bldOrdered By: Nito Lou on 06-16-2023 Platelets (Bld) [#/Vol] 334 10*3/uL 150-450 [facility] Serum or plasma albumin sancho urement (mass/volume)Ordered By: Cali Lou on 06-16-2023 Albumin [Mass/Vol] 3.7 g/dL 3.2-5.0 [facility] Serum or plasma albumin/glob ulin mass ratioOrdered By: Cali Lou on 06-16-2023 Albumin/Globulin [Mass ratio] 1.1 {ratio} 0.9-2.4 [facility] Serum or plasma calcium sancho urement (mass/volume)Ordered By: Cali Lou on 06-16-2023 Calcium [Mass/Vol] 9.0 mg/dL 8.5-10.1 [facility] Serum or plasma creatinine m easurement (mass/volume)Ordered By: Cali Lou on 06-16-2023 Creatinine [Mass/Vol] 0.76 mg/dL 0.55-1.02 [facility] Comment on above: The validity of the calculated GFR & GFRAA in patients over 70 years has not been determined. Clinical correlation is essential. Serum or plasma urea nitroge n measurement (mass/volume)Ordered By: Cali Lou on 06-16-2023 Urea nitrogen [Mass/Vol] 10 mg/dL 7-18 [facility] Thin prep Papanicolaou smear with manual screeningOrdered By: Cali Lou on 06-16-2023 Thin prep Papanicolaou smear with manual screening 19 U/L 15-37 [facility] Thin prep Papanicolaou smear with manual screening 4 5-15 [facility] Whole blood hemoglobin A1c/t otal hemoglobin ratio (mass fraction)Ordered By: Wyatt Marcelo on 06-16-2023 HbA1c (Bld) [Mass fraction] 5.8 % 3.8-5.6 [facility] Comment on above: Normal < 5.7 % Predi abetic 5.7 - 6.4 % Diabetic >or= 6.5 % Please note range changes. Absolute lymphocyte countOrd ered By: Kane Fisher on 06-11-2023 Lymphocytes Auto (Unsp spec) [#/Vol] 0.54 10*3/uL 0.83-4.51 [facility] Basophil percentageOrdered B y: Kane Fisher on 06-11-2023 Basophils/100 WBC (Bld) 0.3 % 0-1 [facility] Chloride [Moles/Vol] 104 mmol/L 98-107 [facility] Eosinophils/100 WBC (Bld) 1.0 % 0-5 [facility] Glucose [Mass/Vol] 105 mg/dL 74-106 [facility] Comment on above: Fasting Glucose resu lt from 100 to 125 mg/dL suggests IMPAIRED HOMEOSTASIS per A.D.A. criteria. Neutrophils (Bld) [#/Vol] 5.0 10*3/uL 2.0-7.7 [facility] Neutrophils/100 WBC (Bld) 83.2 % 47-70 [facility] Potassium [Moles/Vol] 4.1 mmol/L 3.5-5.1 [facility] Comment on above: Moderate Hemolysis, Result may be falsely increased. Sodium [Moles/Vol] 137 mmol/L 136-145 [facility] WBC (Bld) [#/Vol] 6.0 10*3/uL 4.4-11.0 [facility] Blood erythrocytes count (nu mber/volume)Ordered By: Kane Fisher on 06-11-2023 RBC (Bld) [#/Vol] 4.23 10*6/uL 4.2-5.4 [facility] Blood hemoglobin measurement (mass/volume)Ordered By: Kane Fisher on 06-11-2023 Hemoglobin (Bld) [Mass/Vol] 13.1 g/dL 12.0-15.0 [facility] Blood lymphocytes/100 leukoc ytesOrdered By: Kane Fisher on 06-11-2023 Lymphocytes/100 WBC (Bld) 9.1 % 19-41 [facility] Blood manual differential co mment interpretation (narrative result)Ordered By: Kane Fisher on 06-11-2023 Manual differential comment Collin (Bld) [Interp] SCANNED [facility] Blood monocytes/100 leukocyt esOrdered By: Kane Fisher on 06-11-2023 Monocytes/100 WBC (Bld) 6.1 % 0-10 [facility] Blood platelet mean volumeOr dered By: Kane Fisher on 06-11-2023 Platelet mean volume (Bld) [Entitic vol] 9.7 fL 6.2-12.0 [facility] Determination of erythrocyte mean corpuscular volume (MCV)Ordered By: Kane Fisher on 06-11-2023 MCV (RBC) [Entitic vol] 95.5 fL 81-99 [facility] Hematocrit Auto (Bld) [Volum e fraction]Ordered By: Kane Fisher on 06-11-2023 Hematocrit (Bld) [Volume fraction] 40.4 % 37-47 [facility] Laboratory - Chemistry and C hemistry - challengeOrdered By: Kane Fisher on 06-11-2023 CO2 [Moles/Vol] 27.0 mmol/L 21.0-32.0 [facility] Urea nitrogen/Creatinine [Mass ratio] 23.1 mg/mg 10-20 [facility] Laboratory - Hematology and Cell countsOrdered By: Kane Fisher on 06-11-2023 Erythrocyte distribution width (RBC) [Entitic vol] 46.3 fL 35.1-43.9 [facility] Erythrocyte distribution width (RBC) [Ratio] 13.2 % 11.6-14.6 [facility] Immature granulocytes/100 WBC (Bld) 0.300 % 0.0-0.9 [facility] Comment on above: IG% - Immature Granu locytes (promyelocytes, myelocytes and metamyelocytes) > 1% indicates that a LEFT SHIFT is Present. MCH (RBC) [Entitic mass] 31.0 pg 27.0-32.0 [facility] Nucleated RBC/100 WBC (Bld) [Ratio] 0 % 0-5 [facility] MCHC Auto (RBC) [Mass/Vol]Or dered By: Kane Fisher on 06-11-2023 MCHC (RBC) [Mass/Vol] 32.4 g/dL 32-36 [facility] No Panel InformationOrdered By: Kane Fisher on 06-11-2023 Estimated Creatinine Clearance Calc 82.90 ml/min [facility] Estimated GFR (MDRD) Amer 88 mL/min >60 [facility] Comment on above: GFR Calc Estimated GFR (MDRD) Non-Af Amer 73 mL/min >60 [facility] Comment on above: Non- GFR Calc Platelets bldOrdered By: Jules Fisher on 06-11-2023 Platelets (Bld) [#/Vol] 253 10*3/uL 150-450 [facility] Serum or plasma calcium sancho urement (mass/volume)Ordered By: Kane Fisher on 06-11-2023 Calcium [Mass/Vol] 9.2 mg/dL 8.5-10.1 [facility] Serum or plasma creatinine m easurement (mass/volume)Ordered By: Kane Fisher on 06-11-2023 Creatinine [Mass/Vol] 0.91 mg/dL 0.55-1.02 [facility] Comment on above: The validity of the calculated GFR & GFRAA in patients over 70 years has not been determined. Clinical correlation is essential. Serum or plasma urea nitroge n measurement (mass/volume)Ordered By: Kane Fisher on 06-11-2023 Urea nitrogen [Mass/Vol] 21 mg/dL 7-18 [facility] Thin prep Papanicolaou smear with manual screeningOrdered By: Kane Fisher on 06-11-2023 Thin prep Papanicolaou smear with manual screening 6 5-15 [facility] Absolute lymphocyte countOrd ered By: HEALTH ASSESSMENT on 05-09-2023 Lymphocytes Auto (Unsp spec) [#/Vol] 2.17 10*3/uL 0.83-4.51 [facility] Absolute reticulocyte countO rdered By: HEALTH ASSESSMENT on 05-09-2023 Reticulocytes (Bld) [#/Vol] 0.00 10*3/uL 0-5 [facility] Basophil percentageOrdered B y: HEALTH ASSESSMENT on 05-09-2023 Basophil percentage 3.1 mg/dL 2.5-4.9 [facility] Bilirubin [Mass/Vol] 0.20 mg/dL 0.20-1.00 [facility] Comment on above: For patients on eltr ombopag therapy, use of Dimension [place] TBIL is not recommended. Chloride [Moles/Vol] 107 mmol/L 98-107 [facility] Cholesterol [Mass/Vol] 206 mg/dL <200 [facility] Comment on above: <200 mg/dL Desirable 200-240 mg/dL Borderline >240 mg/dL High Risk Glucose [Mass/Vol] 111 mg/dL 74-106 [facility] Comment on above: Fasting Glucose resu lt from 100 to 125 mg/dL suggests IMPAIRED HOMEOSTASIS per A.D.A. criteria. LDH [Catalytic activity/Vol] 206 U/L 84-246 [facility] Neutrophils (Bld) [#/Vol] 2.7 10*3/uL 2.0-7.7 [facility] Potassium [Moles/Vol] 4.0 mmol/L 3.5-5.1 [facility] Protein [Mass/Vol] 7.1 g/dL 6.4-8.2 [facility] Sodium [Moles/Vol] 139 mmol/L 136-145 [facility] Triglyceride [Mass/Vol] 108 mg/dL <199 [facility] Comment on above: The drugs N-Acetylcy steine and Metamizole may falsely depress this assay.Serum Triglycerides Reference Interval Normal <150 mg/dL Borderline high 150 - 199 mg/dL High 200 - 499 mg/dL Very High > or = 500 mg/dL WBC (Bld) [#/Vol] 5.4 10*3/uL 4.4-11.0 [facility] Bilirubin Test strip Ql (U)O rdered By: HEALTH ASSESSMENT on 05-09-2023 Bilirubin Ql (U) 1 mg/dL Negative [facility] [facility] Comment on above: COLOR OF URINE MAY A FFECT DIPSTICK RESULTS. Blood erythrocytes count (nu mber/volume)Ordered By: HEALTH ASSESSMENT on 05-09-2023 RBC (Bld) [#/Vol] 3.78 10*6/uL 4.2-5.4 [facility] Blood hemoglobin measurement (mass/volume)Ordered By: HEALTH ASSESSMENT on 05-09-2023 Hemoglobin (Bld) [Mass/Vol] 11.6 g/dL 12.0-15.0 [facility] Blood platelet mean volumeOr dered By: HEALTH ASSESSMENT on 05-09-2023 Platelet mean volume (Bld) [Entitic vol] 9.5 fL 6.2-12.0 [facility] Determination of erythrocyte mean corpuscular volume (MCV)Ordered By: HEALTH ASSESSMENT on 05-09-2023 MCV (RBC) [Entitic vol] 97.4 fL 81-99 [facility] Direct bilirubinOrdered By: HEALTH ASSESSMENT on 05-09-2023 Bilirubin.direct [Mass/Vol] 0.06 mg/dL 0.00-0.30 [facility] Hematocrit Auto (Bld) [Volum e fraction]Ordered By: HEALTH ASSESSMENT on 05-09-2023 Hematocrit (Bld) [Volume fraction] 36.8 % 37-47 [facility] Ketones Test strip Ql (U)Ord ered By: HEALTH ASSESSMENT on 05-09-2023 Ketones Ql (U) 5 mg/dl Negative [facility] Laboratory - Chemistry and C hemistry - challengeOrdered By: HEALTH ASSESSMENT on 05-09-2023 ALP [Catalytic activity/Vol] 63 U/L 45-117 [facility] ALT [Catalytic activity/Vol] 36 U/L 13-56 [facility] Cholesterol.total/Cho lesterol in HDL [Mass ratio] 3.60 {ratio} [facility] CO2 [Moles/Vol] 28.0 mmol/L 21.0-32.0 [facility] Globulin (S) [Mass/Vol] 3.6 g/dL 2.2-4.2 [facility] Urea nitrogen/Creatinine [Mass ratio] 15.9 mg/mg 10-20 [facility] Laboratory - Hematology and Cell countsOrdered By: HEALTH ASSESSMENT on 05-09-2023 Erythrocyte distribution width (RBC) [Entitic vol] 45.2 fL 35.1-43.9 [facility] Erythrocyte distribution width (RBC) [Ratio] 12.7 % 11.6-14.6 [facility] MCH (RBC) [Entitic mass] 30.7 pg 27.0-32.0 [facility] Nucleated RBC/100 WBC (Bld) [Ratio] 0 % 0-5 [facility] MCHC Auto (RBC) [Mass/Vol]Or dered By: HEALTH ASSESSMENT on 05-09-2023 MCHC (RBC) [Mass/Vol] 31.5 g/dL 32-36 [facility] Nitrite Test strip Ql (U)Ord ered By: HEALTH ASSESSMENT on 05-09-2023 Nitrite Ql (U) Negative Negative [facility] No Panel InformationOrdered By: HEALTH ASSESSMENT on 05-09-2023 Estimated GFR (MDRD) Amer 91 mL/min >60 [facility] Comment on above: GFR Calc Estimated GFR (MDRD) Non-Af Amer 76 mL/min >60 [facility] Comment on above: Non- GFR Calc Platelets bldOrdered By: HEA LT ASSESSMENT on 05-09-2023 Platelets (Bld) [#/Vol] 302 10*3/uL 150-450 [facility] Protein Test strip Ql (U)Ord ered By: HEALTH ASSESSMENT on 05-09-2023 Protein Ql (U) 30 mg/dl Negative [facility] Segmented neutrophils/100 WB C Auto (Bld)Ordered By: HEALTH ASSESSMENT on 05-09-2023 Segmented neutrophils/100 WBC (Bld) 48.7 % 47-70 [facility] Serum or plasma albumin sancho urement (mass/volume)Ordered By: HEALTH ASSESSMENT on 05-09-2023 Albumin [Mass/Vol] 3.5 g/dL 3.2-5.0 [facility] Serum or plasma albumin/glob ulin mass ratioOrdered By: HEALTH ASSESSMENT on 05-09-2023 Albumin/Globulin [Mass ratio] 1.0 {ratio} 0.9-2.4 [facility] Serum or plasma calcium sancho urement (mass/volume)Ordered By: HEALTH ASSESSMENT on 05-09-2023 Calcium [Mass/Vol] 9.5 mg/dL 8.5-10.1 [facility] Serum or plasma cholesterol in HDL measurement (mass/volume)Ordered By: HEALTH ASSESSMENT on 05-09-2023 Cholesterol in HDL [Mass/Vol] 57 mg/dL >40 [facility] Comment on above: The drugs N-Acetylcy steine and Metamizole may falsely depress this assay. Reference Range HDL <40 mg/dL Low HDL Cholesterol HDL >or= 60 mg/dL High HDL Cholesterol Serum or plasma cholesterol in VLDL measurement (mass/volume)Ordered By: HEALTH ASSESSMENT on 05-09-2023 Cholesterol in VLDL [Mass/Vol] 22 mg/dL 5-40 [facility] Serum or plasma creatinine m easurement (mass/volume)Ordered By: HEALTH ASSESSMENT on 05-09-2023 Creatinine [Mass/Vol] 0.88 mg/dL 0.55-1.02 [facility] Comment on above: The validity of the calculated GFR & GFRAA in patients over 70 years has not been determined. Clinical correlation is essential. Serum or plasma low density lipoprotein (LDL) cholesterol measurement (mass/volume)Ordered By: HEALTH ASSESSMENT on 05-09-2023 Cholesterol in LDL [Mass/Vol] 127 mg/dL 0-130 [facility] Serum or plasma urea nitroge n measurement (mass/volume)Ordered By: HEALTH ASSESSMENT on 05-09-2023 Urea nitrogen [Mass/Vol] 14 mg/dL 7-18 [facility] Serum or plasma uric acid me asurement (mass/volume)Ordered By: HEALTH ASSESSMENT on 05-09-2023 Urate [Mass/Vol] 5.7 mg/dL 2.6-6.0 [facility] Comment on above: The drugs N-Acetylcy steine and Metamizole may falsely depress this assay. Thin prep Papanicolaou smear with manual screeningOrdered By: HEALTH ASSESSMENT on 05-09-2023 Thin prep Papanicolaou smear with manual screening 24 U/L 15-37 [facility] Thin prep Papanicolaou smear with manual screening 4 5-15 [facility] Urine blood detectionOrdered By: HEALTH ASSESSMENT on 05-09-2023 RBC Ql (U) 10 /ul Negative [facility] Urine clarityOrdered By: HEA LTH ASSESSMENT on 10-24-2023 Clarity (U) Sl. Cloudy Clear [facility] Urine color determinationOrd ered By: HEALTH ASSESSMENT on 05-09-2023 Color (U) Yellow Yellow [facility] Urine glucose detectionOrder ed By: HEALTH ASSESSMENT on 05-09-2023 Glucose Ql (U) Normal mg/dl Normal [facility] Urine leukocyte esterase det ection by dipstickOrdered By: HEALTH ASSESSMENT on 05-09-2023 Leukocyte esterase Test strip Ql (U) 25 /ul Negative [facility] Urine pHOrdered By: HEALTH A SSESSMENT on 05-09-2023 pH (U) 5.0 [pH] 5.0 - 8.0 [facility] Urine specific gravity measu rementOrdered By: HEALTH ASSESSMENT on 05-09-2023 Specific gravity (U) [Rel density] 1.025 1.002-1.030 [facility] Urobilinogen Auto test strip Ql (U)Ordered By: HEALTH ASSESSMENT on 05-09-2023 Urobilinogen Ql (U) 1 mg/dl Normal [facility] Absolute lymphocyte countOrd ered By: Gay Koenig on 04-26-2023 Lymphocytes Auto (Unsp spec) [#/Vol] 1.68 10*3/uL 0.83-4.51 [facility] Basophil percentageOrdered B y: Gay Koenig on 04-26-2023 Basophils/100 WBC (Bld) 0.9 % 0-1 [facility] Chloride [Moles/Vol] 106 mmol/L 98-107 [facility] Eosinophils/100 WBC (Bld) 2.9 % 0-5 [facility] Glucose [Mass/Vol] 104 mg/dL 74-106 [facility] Comment on above: Fasting Glucose resu lt from 100 to 125 mg/dL suggests IMPAIRED HOMEOSTASIS per A.D.A. criteria. Neutrophils (Bld) [#/Vol] 4.5 10*3/uL 2.0-7.7 [facility] Neutrophils/100 WBC (Bld) 64.9 % 47-70 [facility] Potassium [Moles/Vol] 4.1 mmol/L 3.5-5.1 [facility] Sodium [Moles/Vol] 136 mmol/L 136-145 [facility] WBC (Bld) [#/Vol] 6.9 10*3/uL 4.4-11.0 [facility] Blood erythrocytes count (nu mber/volume)Ordered By: Gay Koenig on 04-26-2023 RBC (Bld) [#/Vol] 4.04 10*6/uL 4.2-5.4 [facility] Blood hemoglobin measurement (mass/volume)Ordered By: Gay Koenig on 04-26-2023 Hemoglobin (Bld) [Mass/Vol] 12.6 g/dL 12.0-15.0 [facility] Blood lymphocytes/100 leukoc ytesOrdered By: Gay Koenig on 04-26-2023 Lymphocytes/100 WBC (Bld) 24.4 % 19-41 [facility] Blood monocytes/100 leukocyt esOrdered By: Gay Koenig on 04-26-2023 Monocytes/100 WBC (Bld) 6.8 % 0-10 [facility] Blood platelet mean volumeOr dered By: Gay Koenig on 04-26-2023 Platelet mean volume (Bld) [Entitic vol] 10.7 fL 6.2-12.0 [facility] Determination of erythrocyte mean corpuscular volume (MCV)Ordered By: Gay Koenig on 04-26-2023 MCV (RBC) [Entitic vol] 98.8 fL 81-99 [facility] Hematocrit Auto (Bld) [Volum e fraction]Ordered By: Gay Koenig on 04-26-2023 Hematocrit (Bld) [Volume fraction] 39.9 % 37-47 [facility] Laboratory - Chemistry and C hemistry - challengeOrdered By: Gay Koenig on 04-26-2023 CO2 [Moles/Vol] 25.0 mmol/L 21.0-32.0 [facility] Urea nitrogen/Creatinine [Mass ratio] 12.5 mg/mg 10-20 [facility] Laboratory - Hematology and Cell countsOrdered By: Gay Koenig on 04-26-2023 Erythrocyte distribution width (RBC) [Entitic vol] 45.2 fL 35.1-43.9 [facility] Erythrocyte distribution width (RBC) [Ratio] 12.5 % 11.6-14.6 [facility] Immature granulocytes/100 WBC (Bld) 0.100 % 0.0-0.9 [facility] Comment on above: IG% - Immature Granu locytes (promyelocytes, myelocytes and metamyelocytes) > 1% indicates that a LEFT SHIFT is Present. MCH (RBC) [Entitic mass] 31.2 pg 27.0-32.0 [facility] Nucleated RBC/100 WBC (Bld) [Ratio] 0 % 0-5 [facility] MCHC Auto (RBC) [Mass/Vol]Or dered By: Gay Koenig on 04-26-2023 MCHC (RBC) [Mass/Vol] 31.6 g/dL 32-36 [facility] No Panel InformationOrdered By: Gay Koenig on 04-26-2023 Estimated GFR (MDRD) Amer 91 mL/min >60 [facility] Comment on above: GFR Calc Estimated GFR (MDRD) Non-Af Amer 75 mL/min >60 [facility] Comment on above: Non- GFR Calc Troponin I High Sensitivity 4 pg/mL 3.0-54.0 [facility] Comment on above: Please Note: New Bia t Units and Gender Specific Reference Ranges. For more information see Policy Stat Procedure [place] High Sensitivity Troponin (TNIH) and attachments. Platelets bldOrdered By: Enio Koenig on 04-26-2023 Platelets (Bld) [#/Vol] 279 10*3/uL 150-450 [facility] Serum or plasma calcium sancho urement (mass/volume)Ordered By: Gay Koenig on 04-26-2023 Calcium [Mass/Vol] 10.3 mg/dL 8.5-10.1 [facility] Serum or plasma creatinine m easurement (mass/volume)Ordered By: Gay Koenig on 04-26-2023 Creatinine [Mass/Vol] 0.88 mg/dL 0.55-1.02 [facility] Comment on above: The validity of the calculated GFR & GFRAA in patients over 70 years has not been determined. Clinical correlation is essential. Serum or plasma urea nitroge n measurement (mass/volume)Ordered By: Gay Koenig on 04-26-2023 Urea nitrogen [Mass/Vol] 11 mg/dL 7-18 [facility] Thin prep Papanicolaou smear with manual screeningOrdered By: Gay Koenig on 04-26-2023 Thin prep Papanicolaou smear with manual screening 5 5-15 [facility] Erythrocyte sedimentation ra teOrdered By: STEVEN BOLES on 03-22-2023 ESR (Bld) [Velocity] 14 mm/h 0-30 [facility] Serum or plasma C reactive p rotein measurement (mass/volume)Ordered By: STEVEN BOLES on 03-22-2023 CRP [Mass/Vol] 9.19 mg/L 0.0-3.0 [facility] Comment on above: C-Reactive Protein ( CRP) provides useful information for thediagnosis, therapy and monitoring of inflammatory processesand associated diseases. For the evaluation of Relative Riskfor Cardiovascular Disease, a High Sensitivity CRP (HSCRP)should be ordered. Absolute lymphocyte countOrd ered By: STEVEN BOLES on 03-07-2023 Lymphocytes Auto (Unsp spec) [#/Vol] 2.41 10*3/uL 0.83-4.51 [facility] Basophil percentageOrdered B y: STEVEN BOLES on 03-07-2023 Basophils/100 WBC (Bld) 0.9 % 0-1 [facility] Bilirubin [Mass/Vol] 0.30 mg/dL 0.20-1.00 [facility] Comment on above: For patients on eltr ombopag therapy, use of Dimension [place] TBIL is not recommended. Eosinophils/100 WBC (Bld) 3.2 % 0-5 [facility] Neutrophils (Bld) [#/Vol] 3.7 10*3/uL 2.0-7.7 [facility] Neutrophils/100 WBC (Bld) 55.0 % 47-70 [facility] Protein [Mass/Vol] 7.7 g/dL 6.4-8.2 [facility] WBC (Bld) [#/Vol] 6.8 10*3/uL 4.4-11.0 [facility] Blood erythrocytes count (nu mber/volume)Ordered By: STEVEN BOLES on 03-07-2023 RBC (Bld) [#/Vol] 3.93 10*6/uL 4.2-5.4 [facility] Blood hemoglobin measurement (mass/volume)Ordered By: STEVNE BOLES on 03-07-2023 Hemoglobin (Bld) [Mass/Vol] 12.5 g/dL 12.0-15.0 [facility] Blood lymphocytes/100 leukoc ytesOrdered By: STEVEN BOLES on 03-07-2023 Lymphocytes/100 WBC (Bld) 35.4 % 19-41 [facility] Blood monocytes/100 leukocyt esOrdered By: STEVEN BOLES on 03-07-2023 Monocytes/100 WBC (Bld) 5.4 % 0-10 [facility] Blood platelet mean volumeOr dered By: STEVEN BOLES on 03-07-2023 Platelet mean volume (Bld) [Entitic vol] 9.3 fL 6.2-12.0 [facility] Determination of erythrocyte mean corpuscular volume (MCV)Ordered By: STEVEN BOLES on 03-07-2023 MCV (RBC) [Entitic vol] 98.5 fL 81-99 [facility] Direct bilirubinOrdered By: STEVEN BOLES on 03-07-2023 Bilirubin.direct [Mass/Vol] 0.09 mg/dL 0.00-0.30 [facility] Erythrocyte sedimentation ra teOrdered By: STEVEN BOLES on 03-07-2023 ESR (Bld) [Velocity] 19 mm/h 0-30 [facility] Hematocrit Auto (Bld) [Volum e fraction]Ordered By: STEVEN BOLES on 03-07-2023 Hematocrit (Bld) [Volume fraction] 38.7 % 37-47 [facility] Laboratory - Chemistry and C hemistry - challengeOrdered By: STEVEN BOLES on 03-07-2023 ALP [Catalytic activity/Vol] 69 U/L 45-117 [facility] ALT [Catalytic activity/Vol] 32 U/L 13-56 [facility] Globulin (S) [Mass/Vol] 3.8 g/dL 2.2-4.2 [facility] Laboratory - Hematology and Cell countsOrdered By: STEVEN BOLES on 03-07-2023 Erythrocyte distribution width (RBC) [Entitic vol] 46.3 fL 35.1-43.9 [facility] Erythrocyte distribution width (RBC) [Ratio] 13.0 % 11.6-14.6 [facility] Immature granulocytes/100 WBC (Bld) 0.100 % 0.0-0.9 [facility] Comment on above: IG% - Immature Granu locytes (promyelocytes, myelocytes and metamyelocytes) > 1% indicates that a LEFT SHIFT is Present. MCH (RBC) [Entitic mass] 31.8 pg 27.0-32.0 [facility] Nucleated RBC/100 WBC (Bld) [Ratio] 0 % 0-5 [facility] MCHC Auto (RBC) [Mass/Vol]Or dered By: STEVEN BOLES on 03-07-2023 MCHC (RBC) [Mass/Vol] 32.3 g/dL 32-36 [facility] No Panel InformationOrdered By: STEVEN BOLES on 03-07-2023 Estimated GFR (MDRD) Amer 88 mL/min >60 [facility] Comment on above: GFR Calc Estimated GFR (MDRD) Non-Af Amer 73 mL/min >60 [facility] Comment on above: Non- GFR Calc Platelets bldOrdered By: IRENE BOLES on 03-07-2023 Platelets (Bld) [#/Vol] 326 10*3/uL 150-450 [facility] Serum or plasma C reactive p rotein measurement (mass/volume)Ordered By: STEVEN BOLES on 03-07-2023 CRP [Mass/Vol] 13.30 mg/L 0.0-3.0 [facility] Comment on above: C-Reactive Protein ( CRP) provides useful information for thediagnosis, therapy and monitoring of inflammatory processesand associated diseases. For the evaluation of Relative Riskfor Cardiovascular Disease, a High Sensitivity CRP (HSCRP)should be ordered. Serum or plasma albumin sancho urement (mass/volume)Ordered By: STEVEN BOLES on 03-07-2023 Albumin [Mass/Vol] 3.9 g/dL 3.2-5.0 [facility] Serum or plasma creatinine m easurement (mass/volume)Ordered By: STEVEN BOLES on 03-07-2023 Creatinine [Mass/Vol] 0.91 mg/dL 0.55-1.02 [facility] Comment on above: The validity of the calculated GFR & GFRAA in patients over 70 years has not been determined. Clinical correlation is essential. Thin prep Papanicolaou smear with manual screeningOrdered By: STEVEN BOLES on 03-07-2023 Thin prep Papanicolaou smear with manual screening 18 U/L 15-37 [facility] Basophil percentageOrdered B y: Cali Lou on 01-09-2023 Bilirubin [Mass/Vol] 0.30 mg/dL 0.20-1.00 [facility] Comment on above: For patients on eltr ombopag therapy, use of Dimension [place] TBIL is not recommended. Chloride [Moles/Vol] 106 mmol/L 98-107 [facility] Glucose [Mass/Vol] 90 mg/dL 74-106 [facility] Potassium [Moles/Vol] 4.1 mmol/L 3.5-5.1 [facility] Protein [Mass/Vol] 8.0 g/dL 6.4-8.2 [facility] Sodium [Moles/Vol] 138 mmol/L 136-145 [facility] Laboratory - Chemistry and C hemistry - challengeOrdered By: Cali Lou on 01-09-2023 ALP [Catalytic activity/Vol] 70 U/L 45-117 [facility] ALT [Catalytic activity/Vol] 23 U/L 13-56 [facility] CO2 [Moles/Vol] 25.0 mmol/L 21.0-32.0 [facility] Free T4 [Mass/Vol] 0.97 ng/dL 0.76-1.46 [facility] Globulin (S) [Mass/Vol] 4.1 g/dL 2.2-4.2 [facility] Urea nitrogen/Creatinine [Mass ratio] 19.8 mg/mg 10-20 [facility] No Panel InformationOrdered By: Cali Lou on 01-09-2023 Estimated GFR (MDRD) Amer 109 mL/min >60 [facility] Comment on above: GFR Calc Estimated GFR (MDRD) Non-Af Amer 90 mL/min >60 [facility] Comment on above: Non- GFR Calc Follicle Stimulating Hormone 19.8 mIU/mL [facility] Comment on above: NORMAL REFERENCE RAN GES FEMALE FOLLICULAR 2.3 - 12.6 mIU/mL MID-CYCLE PEAK 5.2 - 17.5 mIU/mL LUTEAL 1.7 - 12.9 mIU/mL POST-MENOPAUSAL ON MHT 5.9 - 72.8 mIU/mL NOT ON MHT 12.7 - 132.2 mlU/mL MALE 0.7 - 10.8 mIU/mL Luteinizing Hormone 10.0 mIU/mL [facility] Comment on above: NORMAL REFERENCE RAN GES FEMALE FOLLICULAR 1.9 - 26.2 mIU/mL MID-CYCLE PEAK 22.8 - 76.1 mIU/mL LUTEAL 0.6 - 16.6 mIU/mL POST-MENOPAUSAL ON MHT 1.1 - 52.4 mIU/mL NOT ON MHT 8.6 - 61.8 mIU/mL MALE 1.2 - 10.6 mIU/mL Parathyroid Hormone (Intact) 92.3 pg/mL 18.4-80.1 [facility] Thyroid Stimulating Hormone (TSH) 0.85 uIU/mL 0.358-3.74 [facility] Vitamin D 25-Hydroxy 47.0 ng/mL [facility] Comment on above: Vitamin D 25(OH) Sta tus Range Deficiency <20 ng/mL (50nmol/L) Insufficiency 20 - 30 ng/mL (50 - 75 nmol/L) Sufficiency 30 - 100 ng/mL (75 - 250 nmol/L) Toxicity >100 ng/mL (>250 nmol/L) Serum or plasma albumin sancho urement (mass/volume)Ordered By: Cali Lou on 01-09-2023 Albumin [Mass/Vol] 3.9 g/dL 3.2-5.0 [facility] Serum or plasma albumin/glob ulin mass ratioOrdered By: Cali Lou on 01-09-2023 Albumin/Globulin [Mass ratio] 1.0 {ratio} 0.9-2.4 [facility] Serum or plasma calcium sancho urement (mass/volume)Ordered By: Cali Lou on 01-09-2023 Calcium [Mass/Vol] 10.2 mg/dL 8.5-10.1 [facility] Serum or plasma creatinine m easurement (mass/volume)Ordered By: Cali Lou on 01-09-2023 Creatinine [Mass/Vol] 0.76 mg/dL 0.55-1.02 [facility] Comment on above: The validity of the calculated GFR & GFRAA in patients over 70 years has not been determined. Clinical correlation is essential. Serum or plasma estradiol (E 2) measurement (mass/volume)Ordered By: Cali Lou on 01-09-2023 E2 [Mass/Vol] 25.0 pg/mL [facility] Comment on above: NORMAL REFERENCE RAN GES FEMALE FOLLICULAR 21.4 - 164.8 pg/mL MID-CYCLE PEAK 49.9 - 367.2 pg/mL LUTEAL 40.2 - 259.0 pg/mL POST-MENOPAUSAL ON MHT <11.0 - 462.1 pg/mL NOT ON MHT <11.0 - 58.3 pg/mL MALE <11.0 - 52.5 pg/mL NOTE:[employer] HAS CONFIRMED THE DRUG FULVETRANT (FASLODEX) MAY CAUSE FALSELY ELEVATED ESTRADIOL RESULTS WHEN USING THIS TEST METHOD. IF PATIENT IS TAKING FULVESTRANT AN ALTERNATIVE METHOD SHOULD BE USED TO DETERMINE ESTRADIOL CONCENTRATION. Serum or plasma urea nitroge n measurement (mass/volume)Ordered By: Cali Lou on 01-09-2023 Urea nitrogen [Mass/Vol] 15 mg/dL 7-18 [facility] Thin prep Papanicolaou smear with manual screeningOrdered By: Cali Lou on 01-09-2023 Thin prep Papanicolaou smear with manual screening 13 U/L 15-37 [facility] Thin prep Papanicolaou smear with manual screening 7 5-15 [facility] Erythrocyte sedimentation ra teOrdered By: STEVEN BOLES on 01-03-2023 ESR (Bld) [Velocity] 10 mm/h 0-30 [facility] Serum or plasma C reactive p rotein measurement (mass/volume)Ordered By: STEVEN BOLES on 01-03-2023 CRP [Mass/Vol] 6.98 mg/L 0.0-3.0 [facility] Comment on above: C-Reactive Protein ( CRP) provides useful information for thediagnosis, therapy and monitoring of inflammatory processesand associated diseases. For the evaluation of Relative Riskfor Cardiovascular Disease, a High Sensitivity CRP (HSCRP)should be ordered. Absolute lymphocyte countOrd ered By: STEVEN BOELS on 12-14-2022 Lymphocytes Auto (Unsp spec) [#/Vol] 1.23 10*3/uL 0.83-4.51 [facility] Basophil percentageOrdered B y: STEVEN BOLES on 12-14-2022 Basophils/100 WBC (Bld) 0.6 % 0-1 [facility] Bilirubin [Mass/Vol] 0.30 mg/dL 0.20-1.00 [facility] Comment on above: For patients on eltr ombopag therapy, use of Dimension [place] TBIL is not recommended. Eosinophils/100 WBC (Bld) 0.7 % 0-5 [facility] Neutrophils (Bld) [#/Vol] 8.0 10*3/uL 2.0-7.7 [facility] Neutrophils/100 WBC (Bld) 82.4 % 47-70 [facility] Protein [Mass/Vol] 7.3 g/dL 6.4-8.2 [facility] WBC (Bld) [#/Vol] 9.7 10*3/uL 4.4-11.0 [facility] Blood erythrocytes count (nu mber/volume)Ordered By: STEVEN BOLES on 12-14-2022 RBC (Bld) [#/Vol] 3.98 10*6/uL 4.2-5.4 [facility] Blood hemoglobin measurement (mass/volume)Ordered By: STEVEN BOLES on 12-14-2022 Hemoglobin (Bld) [Mass/Vol] 12.4 g/dL 12.0-15.0 [facility] Blood lymphocytes/100 leukoc ytesOrdered By: STEVEN BOLES on 12-14-2022 Lymphocytes/100 WBC (Bld) 12.7 % 19-41 [facility] Blood monocytes/100 leukocyt esOrdered By: STEVEN BOLES on 12-14-2022 Monocytes/100 WBC (Bld) 3.2 % 0-10 [facility] Blood platelet mean volumeOr dered By: STEVEN BOLES on 12-14-2022 Platelet mean volume (Bld) [Entitic vol] 9.4 fL 6.2-12.0 [facility] Determination of erythrocyte mean corpuscular volume (MCV)Ordered By: STEVEN BOLES on 12-14-2022 MCV (RBC) [Entitic vol] 96.7 fL 81-99 [facility] Direct bilirubinOrdered By: STEVEN BOLES on 12-14-2022 Bilirubin.direct [Mass/Vol] 0.09 mg/dL 0.00-0.30 [facility] Erythrocyte sedimentation ra teOrdered By: STEVEN BOLES on 12-14-2022 ESR (Bld) [Velocity] 20 mm/h 0-30 [facility] Hematocrit Auto (Bld) [Volum e fraction]Ordered By: STEVEN BOLES on 12-14-2022 Hematocrit (Bld) [Volume fraction] 38.5 % 37-47 [facility] Laboratory - Chemistry and C hemistry - challengeOrdered By: STEVEN BOLES on 12-14-2022 ALP [Catalytic activity/Vol] 59 U/L 45-117 [facility] ALT [Catalytic activity/Vol] 28 U/L 13-56 [facility] Globulin (S) [Mass/Vol] 3.6 g/dL 2.2-4.2 [facility] Laboratory - Hematology and Cell countsOrdered By: STEVEN BOLES on 12-14-2022 Erythrocyte distribution width (RBC) [Entitic vol] 49.9 fL 35.1-43.9 [facility] Erythrocyte distribution width (RBC) [Ratio] 14.0 % 11.6-14.6 [facility] Immature granulocytes/100 WBC (Bld) 0.400 % 0.0-0.9 [facility] Comment on above: IG% - Immature Granu locytes (promyelocytes, myelocytes and metamyelocytes) > 1% indicates that a LEFT SHIFT is Present. MCH (RBC) [Entitic mass] 31.2 pg 27.0-32.0 [facility] Nucleated RBC/100 WBC (Bld) [Ratio] 0 % 0-5 [facility] MCHC Auto (RBC) [Mass/Vol]Or dered By: STEVEN BOLES on 12-14-2022 MCHC (RBC) [Mass/Vol] 32.2 g/dL 32-36 [facility] No Panel InformationOrdered By: STEVEN BOLES on 12-14-2022 Estimated GFR (MDRD) Amer 106 mL/min >60 [facility] Comment on above: GFR Calc Estimated GFR (MDRD) Non-Af Amer 88 mL/min >60 [facility] Comment on above: Non- GFR Calc Platelets bldOrdered By: IRENE BOLES on 12-14-2022 Platelets (Bld) [#/Vol] 302 10*3/uL 150-450 [facility] Serum or plasma C reactive p rotein measurement (mass/volume)Ordered By: STEVEN BOLES on 12-14-2022 CRP [Mass/Vol] 8.54 mg/L 0.0-3.0 [facility] Comment on above: C-Reactive Protein ( CRP) provides useful information for thediagnosis, therapy and monitoring of inflammatory processesand associated diseases. For the evaluation of Relative Riskfor Cardiovascular Disease, a High Sensitivity CRP (HSCRP)should be ordered. Serum or plasma albumin sancho urement (mass/volume)Ordered By: STEVEN BOLES on 12-14-2022 Albumin [Mass/Vol] 3.7 g/dL 3.2-5.0 [facility] Serum or plasma creatinine m easurement (mass/volume)Ordered By: STEVEN BOLES on 12-14-2022 Creatinine [Mass/Vol] 0.77 mg/dL 0.55-1.02 [facility] Comment on above: The validity of the calculated GFR & GFRAA in patients over 70 years has not been determined. Clinical correlation is essential. Thin prep Papanicolaou smear with manual screeningOrdered By: STEVEN BOLES on 12-14-2022 Thin prep Papanicolaou smear with manual screening 22 U/L 15-37 [facility] Basophil percentageOrdered B y: Dirk Paula on 12-02-2022 Chloride [Moles/Vol] 106 mmol/L 98-107 [facility] Glucose [Mass/Vol] 99 mg/dL 74-106 [facility] Potassium [Moles/Vol] 4.2 mmol/L 3.5-5.1 [facility] Sodium [Moles/Vol] 139 mmol/L 136-145 [facility] Laboratory - Chemistry and C hemistry - challengeOrdered By: Dirk Paula on 12-02-2022 CO2 [Moles/Vol] 28.0 mmol/L 21.0-32.0 [facility] Urea nitrogen/Creatinine [Mass ratio] 18.1 mg/mg 10-20 [facility] No Panel InformationOrdered By: Dirk Paula on 12-02-2022 Estimated GFR (MDRD) Amer 106 mL/min >60 [facility] Comment on above: GFR Calc Estimated GFR (MDRD) Non-Af Amer 88 mL/min >60 [facility] Comment on above: Non- GFR Calc Serum or plasma calcium sancho urement (mass/volume)Ordered By: Dirk Paula on 12-02-2022 Calcium [Mass/Vol] 10.1 mg/dL 8.5-10.1 [facility] Serum or plasma creatinine m easurement (mass/volume)Ordered By: Dirk Paula on 12-02-2022 Creatinine [Mass/Vol] 0.77 mg/dL 0.55-1.02 [facility] Comment on above: The validity of the calculated GFR & GFRAA in patients over 70 years has not been determined. Clinical correlation is essential. Serum or plasma urea nitroge n measurement (mass/volume)Ordered By: Dirk Paula on 12-02-2022 Urea nitrogen [Mass/Vol] 14 mg/dL -18 [facility] Thin prep Papanicolaou smear with manual screeningOrdered By: Dirk Paula on 12-02-2022 Thin prep Papanicolaou smear with manual screening 5 5-15 [facility] No Panel InformationOrdered By: Dr. Lou on 11-01-2022 Parathyroid Hormone (Intact) 95.6 pg/mL 18.4-80.1 [facility] Thyroid Stimulating Hormone (TSH) 1.00 uIU/mL 0.358-3.74 [facility] Vitamin D 25-Hydroxy 37.3 ng/mL [facility] Comment on above: Vitamin D 25(OH) Sta tus Range Deficiency <20 ng/mL (50nmol/L) Insufficiency 20 - 30 ng/mL (50 - 75 nmol/L) Sufficiency 30 - 100 ng/mL (75 - 250 nmol/L) Toxicity >100 ng/mL (>250 nmol/L) Serum or plasma calcium sancho urement (mass/volume)Ordered By: Dr. Lou on 11-01-2022 Calcium [Mass/Vol] 10.4 mg/dL 8.5-10.1 [facility] Absolute lymphocyte countOrd ered By: STEVEN BOLES on 10-13-2022 Lymphocytes Auto (Unsp spec) [#/Vol] 2.23 10*3/uL 0.83-4.51 [facility] Basophil percentageOrdered B y: STEVEN BOLES on 10-13-2022 Basophils/100 WBC (Bld) 0.9 % 0-1 [facility] Bilirubin [Mass/Vol] 0.50 mg/dL 0.20-1.00 [facility] Comment on above: For patients on eltr ombopag therapy, use of [employer] [place] TBIL is not recommended. Eosinophils/100 WBC (Bld) 3.0 % 0-5 [facility] Neutrophils (Bld) [#/Vol] 4.0 10*3/uL 2.0-7.7 [facility] Neutrophils/100 WBC (Bld) 57.6 % 47-70 [facility] Protein [Mass/Vol] 7.7 g/dL 6.4-8.2 [facility] WBC (Bld) [#/Vol] 7.0 10*3/uL 4.4-11.0 [facility] Blood erythrocytes count (nu mber/volume)Ordered By: STEVEN BOLES on 10-13-2022 RBC (Bld) [#/Vol] 4.16 10*6/uL 4.2-5.4 [facility] Blood hemoglobin measurement (mass/volume)Ordered By: STEVEN BOLES on 10-13-2022 Hemoglobin (Bld) [Mass/Vol] 12.7 g/dL 12.0-15.0 [facility] Blood lymphocytes/100 leukoc ytesOrdered By: STEVEN BOLES on 10-13-2022 Lymphocytes/100 WBC (Bld) 32.0 % 19-41 [facility] Blood monocytes/100 leukocyt esOrdered By: STEVEN BOLES on 10-13-2022 Monocytes/100 WBC (Bld) 6.2 % 0-10 [facility] Blood platelet mean volumeOr dered By: STEVEN BOLES on 10-13-2022 Platelet mean volume (Bld) [Entitic vol] 10.2 fL 6.2-12.0 [facility] Determination of erythrocyte mean corpuscular volume (MCV)Ordered By: STEVEN BOLES on 10-13-2022 MCV (RBC) [Entitic vol] 95.4 fL 81-99 [facility] Direct bilirubinOrdered By: STEVEN BOLES on 10-13-2022 Bilirubin.direct [Mass/Vol] 0.14 mg/dL 0.00-0.30 [facility] Erythrocyte sedimentation ra teOrdered By: STEVEN BOLES on 10-13-2022 ESR (Bld) [Velocity] 24 mm/h 0-30 [facility] Hematocrit Auto (Bld) [Volum e fraction]Ordered By: STEVEN BOLES on 10-13-2022 Hematocrit (Bld) [Volume fraction] 39.7 % 37-47 [facility] Laboratory - Chemistry and C hemistry - challengeOrdered By: STEVEN BOLES on 10-13-2022 ALP [Catalytic activity/Vol] 60 U/L 45-117 [facility] ALT [Catalytic activity/Vol] 32 U/L 13-56 [facility] Globulin (S) [Mass/Vol] 3.6 g/dL 2.2-4.2 [facility] Laboratory - Hematology and Cell countsOrdered By: STEVEN BOLES on 10-13-2022 Erythrocyte distribution width (RBC) [Entitic vol] 43.9 fL 35.1-43.9 [facility] Erythrocyte distribution width (RBC) [Ratio] 12.6 % 11.6-14.6 [facility] Immature granulocytes/100 WBC (Bld) 0.300 % 0.0-0.9 [facility] Comment on above: IG% - Immature Granu locytes (promyelocytes, myelocytes and metamyelocytes) > 1% indicates that a LEFT SHIFT is Present. MCH (RBC) [Entitic mass] 30.5 pg 27.0-32.0 [facility] Nucleated RBC/100 W[facility] (Bld) [[facility]] 0 [facility] [Mass/Vol]Or dered By: STEVEN BOLES on 10-13-2022 MCHC (RBC) [Mass/Vol] 32.0 g/dL 32-36 [facility] No Panel InformationOrdered By: STEVEN BOLES on 10-13-2022 Estimated GFR (MDRD) Amer 106 mL/min >60 [facility] Comment on above: GFR Calc Estimated GFR (MDRD) Non-Af Amer 88 mL/min >60 [facility] Comment on above: Non- GFR Calc Platelets bldOrdered By: IRENE BOLES on 10-13-2022 Platelets (Bld) [#/Vol] 312 10*3/uL 150-450 [facility] Serum cyclic citrullinated p eptide IgG antibody assay (units/volume)Ordered By: STEVEN BOLES on 10-13-2022 Cyclic citrullinated peptide IgG Qn 7 units 0-19 [facility] Comment on above: Negative <20 Weak po sitive 20 - 39 Moderate positive 40 - 59 Strong positive >59Performed at: [place] [id number] Director: Levi Covarrubias PhD, Phone: [phone] Serum or plasma C reactive p rotein measurement (mass/volume)Ordered By: STEVEN BOLES on 10-13-2022 CRP [Mass/Vol] mg/L 0.0-3.0 [facility] Comment on above: C-Reactive Protein ( CRP) provides useful information for thediagnosis, therapy and monitoring of inflammatory processesand associated diseases. For the evaluation of Relative Riskfor Cardiovascular Disease, a High Sensitivity CRP (HSCRP)should be ordered. Serum or plasma albumin sancho urement (mass/volume)Ordered By: STEVEN BOLES on 10-13-2022 Albumin [Mass/Vol] 4.1 g/dL 3.2-5.0 [facility] Serum or plasma complement C 3 measurement (mass/volume)Ordered By: STEVEN BOLES on 10-13-2022 Complement C3 [Mass/Vol] 163 mg/dL 82-167 [facility] Serum or plasma complement C 4 measurement (mass/volume)Ordered By: STEVEN BOLES on 10-13-2022 Complement C4 [Mass/Vol] 30 mg/dL 12-38 [facility] Serum or plasma creatinine m easurement (mass/volume)Ordered By: STEVEN BOLES on 10-13-2022 Creatinine [Mass/Vol] 0.77 mg/dL 0.55-1.02 [facility] Comment on above: The validity of the calculated GFR & GFRAA in patients over 70 years has not been determined. Clinical correlation is essential. Serum rheumatoid factor dete ctionOrdered By: STEVEN BOLES on 10-13-2022 Rheumatoid factor Ql (S) < 10.0 IU/mL <15 [facility] Thin prep Papanicolaou smear with manual screeningOrdered By: STEVEN BOLES on 10-13-2022 Thin prep Papanicolaou smear with manual screening 17 U/L 15-37 [facility] Laboratory - Chemistry and C hemistry - challengeOrdered By: Dirk Paula on 09-29-2022 Cobalamin (Vitamin B12) [Mass/Vol] 334 pg/mL 211-911 [facility] No Panel InformationOrdered By: Nicolette Blair on 09-29-2022 Hepatitis B Surface Antibody Reactive [facility] Comment on above: Non Reactive: Incons istent with immunity less than <10 mIU/mL Reactive: Consistent with immunity greater than or equal to 10 mIU/mL Laboratory - Microbiology an d Antimicrobial susceptibilityon 09-01-2022 S. pyogenes Ag IA Ql (Unsp spec) Negative [facility] No Panel Informationon 09-01 Influenza Types A,B Rapid (Clinic) Negative [facility] POC SARS CoV-2 Antigen Negative [facility] Laboratory - Hematology and Cell countson 08-15-2022 HbA1c (Bld) [Mass fraction] 5.8 % 4.2-6.3 [facility] Absolute lymphocyte countOrd ered By: Dr. Osorio on 08-04-2022 Lymphocytes Auto (Unsp spec) [#/Vol] 2.02 10*3/uL 0.83-4.51 [facility] Basophil percentageOrdered B y: Dr. Osorio on 08-04-2022 Basophils/100 WBC (Bld) 0.7 % 0-1 [facility] Bilirubin [Mass/Vol] 0.40 mg/dL 0.20-1.00 [facility] Comment on above: For patients on eltr ombopag therapy, use of [employer] [place] TBIL is not recommended. Chloride [Moles/Vol] 103 mmol/L 98-107 [facility] Eosinophils/100 WBC (Bld) 1.9 % 0-5 [facility] Glucose [Mass/Vol] 98 mg/dL 74-106 [facility] Neutrophils (Bld) [#/Vol] 2.8 10*3/uL 2.0-7.7 [facility] Neutrophils/100 WBC (Bld) 52.5 % 47-70 [facility] Potassium [Moles/Vol] 3.5 mmol/L 3.5-5.1 [facility] Protein [Mass/Vol] 7.7 g/dL 6.4-8.2 [facility] Sodium [Moles/Vol] 139 mmol/L 136-145 [facility] WBC (Bld) [#/Vol] 5.3 10*3/uL 4.4-11.0 [facility] Blood erythrocytes count (nu mber/volume)Ordered By: Dr. Osorio on 08-04-2022 RBC (Bld) [#/Vol] 3.99 10*6/uL 4.2-5.4 [facility] Blood hemoglobin measurement (mass/volume)Ordered By: Dr. Osorio on 08-04-2022 Hemoglobin (Bld) [Mass/Vol] 12.3 g/dL 12.0-15.0 [facility] Blood lymphocytes/100 leukoc ytesOrdered By: Dr. Osorio on 08-04-2022 Lymphocytes/100 WBC (Bld) 37.8 % 19-41 [facility] Blood monocytes/100 leukocyt esOrdered By: Dr. Osorio on 08-04-2022 Monocytes/100 WBC (Bld) 6.7 % 0-10 [facility] Blood platelet mean volumeOr dered By: Dr. Osorio on 01-19-2023 Platelet mean volume (Bld) [Entitic vol] 9.5 fL 6.2-12.0 [facility] Determination of erythrocyte mean corpuscular volume (MCV)Ordered By: Dr. Osorio on 08-04-2022 MCV (RBC) [Entitic vol] 95.7 fL 81-99 [facility] Hematocrit Auto (Bld) [Volum e fraction]Ordered By: Dr. Osorio on 08-04-2022 Hematocrit (Bld) [Volume fraction] 38.2 % 37-47 [facility] Laboratory - Chemistry and C hemistry - challengeOrdered By: Dr. Osorio on 08-04-2022 ALP [Catalytic activity/Vol] 57 U/L 45-117 [facility] ALT [Catalytic activity/Vol] 34 U/L 13-56 [facility] CO2 [Moles/Vol] 28.0 mmol/L 21.0-32.0 [facility] Globulin (S) [Mass/Vol] 3.8 g/dL 2.2-4.2 [facility] Urea nitrogen/Creatinine [Mass ratio] 12.9 mg/mg 10-20 [facility] Laboratory - Hematology and Cell countsOrdered By: Dr. Osorio on 08-04-2022 Erythrocyte distribution width (RBC) [Entitic vol] 45.3 fL 35.1-43.9 [facility] Erythrocyte distribution width (RBC) [Ratio] 13.1 % 11.6-14.6 [facility] Immature granulocytes/100 WBC (Bld) 0.400 % 0.0-0.9 [facility] Comment on above: IG% - Immature Granu locytes (promyelocytes, myelocytes and metamyelocytes) > 1% indicates that a LEFT SHIFT is Present. MCH (RBC) [Entitic mass] 30.8 pg 27.0-32.0 [facility] Nucleated RBC/100 WBC (Bld) [Ratio] 0 % 0-5 [facility] MCHC Auto (RBC) [Mass/Vol]Or dered By: Dr. Osorio on 08-04-2022 MCHC (RBC) [Mass/Vol] 32.2 g/dL 32-36 [facility] No Panel InformationOrdered By: Dr. Lou on 08-04-2022 Thyroid Stimulating Hormone (TSH) 1.23 uIU/mL 0.358-3.74 [facility] Vitamin D 25-Hydroxy 39.8 ng/mL [facility] Comment on above: Vitamin D 25(OH) Sta tus Range Deficiency <20 ng/mL (50nmol/L) Insufficiency 20 - 30 ng/mL (50 - 75 nmol/L) Sufficiency 30 - 100 ng/mL (75 - 250 nmol/L) Toxicity >100 ng/mL (>250 nmol/L) No Panel InformationOrdered By: Dr. Osorio on 08-04-2022 Estimated GFR (MDRD) Amer 95 mL/min >60 [facility] Comment on above: GFR Calc Estimated GFR (MDRD) Non-Af Amer 79 mL/min >60 [facility] Comment on above: Non- GFR Calc Platelets bldOrdered By: Dr. Osorio on 08-04-2022 Platelets (Bld) [#/Vol] 339 10*3/uL 150-450 [facility] Serum or plasma albumin sancho urement (mass/volume)Ordered By: Dr. Osorio on 08-04-2022 Albumin [Mass/Vol] 3.9 g/dL 3.2-5.0 [facility] Serum or plasma albumin/glob ulin mass ratioOrdered By: Dr. Osorio on 08-04-2022 Albumin/Globulin [Mass ratio] 1.0 {ratio} 0.9-2.4 [facility] Serum or plasma calcium sancho urement (mass/volume)Ordered By: Dr. Osorio on 08-04-2022 Calcium [Mass/Vol] 10.1 mg/dL 8.5-10.1 [facility] Serum or plasma creatinine m easurement (mass/volume)Ordered By: Dr. Osorio on 08-04-2022 Creatinine [Mass/Vol] 0.85 mg/dL 0.55-1.02 [facility] Comment on above: The validity of the calculated GFR & GFRAA in patients over 70 years has not been determined. Clinical correlation is essential. Serum or plasma urea nitroge n measurement (mass/volume)Ordered By: Dr. Osorio on 08-04-2022 Urea nitrogen [Mass/Vol] 11 mg/dL 7-18 [facility] Thin prep Papanicolaou smear with manual screeningOrdered By: Dr. Osorio on 08-04-2022 Thin prep Papanicolaou smear with manual screening 20 U/L 15-37 [facility] Thin prep Papanicolaou smear with manual screening 8 5-15 [facility] Qualitative QuantiFERON-TB g old in tube testOrdered By: Dr. Osorio on 06-24-2022 M. tuberculosis tuberculin stim IFN-g Ql (Bld) Not Reportable [facility] Thin prep Papanicolaou smear with manual screeningOrdered By: Dr. Osorio on 06-24-2022 Thin prep Papanicolaou smear with manual screening See comment [facility] Comment on above: TEST RESULT LIMITSQF T-TB Plus (Client Incubated) QuantiFERON Criteria QuantiFERON-TB Gold Plus is a qualitative indirect test for M tuberculosis infection (including disease) and is intended for use in conjunction with risk assessment, radiography, and other medical and diagnostic evaluations. The QuantiFERON-TB Gold Plus result is determined by subtracting the Nil value from either TB antigen (Ag) value. The Mitogen tube serves as a control for the test. QuantiFERON TB1 Ag Value 0.03 IU/mL QuantiFERON TB2 Ag Value 0.04 IU/mL QuantiFERON Nil Value 0.04 IU/mL QuantiFERON Mitogen Value >10.00 IU/mL QuantiFERON-TB Gold Plus Negative NegativeNo response to M tuberculosis antigens detected.Infection with M tuberculosis is unlikely, but high riskindividuals should be considered for additional testing(ATS/IDSA/CDC Clinical Practice Guidelines, 2017). Thereference range is an Antigen minus Nil result of <0.35 IU/mL.The specimen received for QuantiFERON testing was incubated by the ordering institution. Specific procedures outlined in our Directory of Services and in the package insert for the QuantiFERON Gold (In Tube) test must be followed to enable for proper stimulation of cells for the production of interferon gamma.Chemiluminescence immunoassay methodology ____ [facility]FOR[facility]. ORIGINAL REPORT ON FILE IN LAB CONTAINS ADDITIONAL TEST SITE INFORMATION. Thin prep Papanicolaou smear with manual screening Not Reportable [facility] Absolute lymphocyte countOrd ered By: Dr. Osorio on 06-13-2022 Lymphocytes Auto (Unsp spec) [#/Vol] 2.41 10*3/uL 0.83-4.51 [facility] Basophil percentageOrdered B y: Dr. Osorio on 06-13-2022 Basophils/100 WBC (Bld) 0.9 % 0-1 [facility] Bilirubin [Mass/Vol] 0.50 mg/dL 0.20-1.00 [facility] Comment on above: For patients on eltr ombopag therapy, use of [employer] [place] TBIL is not recommended. Chloride [Moles/Vol] 101 mmol/L 98-107 [facility] Eosinophils/100 WBC (Bld) 1.7 % 0-5 [facility] Glucose [Mass/Vol] 117 mg/dL 74-106 [facility] Comment on above: Fasting Glucose resu lt from 100 to 125 mg/dL suggests IMPAIRED HOMEOSTASIS per A.D.A. criteria. Neutrophils (Bld) [#/Vol] 4.5 10*3/uL 2.0-7.7 [facility] Neutrophils/100 WBC (Bld) 58.9 % 47-70 [facility] Potassium [Moles/Vol] 3.5 mmol/L 3.5-5.1 [facility] Protein [Mass/Vol] 7.5 g/dL 6.4-8.2 [facility] Sodium [Moles/Vol] 136 mmol/L 136-145 [facility] WBC (Bld) [#/Vol] 7.6 10*3/uL 4.4-11.0 [facility] Blood erythrocytes count (nu mber/volume)Ordered By: Dr. Osorio on 06-13-2022 RBC (Bld) [#/Vol] 4.11 10*6/uL 4.2-5.4 [facility] Blood hemoglobin measurement (mass/volume)Ordered By: Dr. Osorio on 06-13-2022 Hemoglobin (Bld) [Mass/Vol] 12.9 g/dL 12.0-15.0 [facility] Blood lymphocytes/100 leukoc ytesOrdered By: Dr. Osorio on 06-13-2022 Lymphocytes/100 WBC (Bld) 31.9 % 19-41 [facility] Blood monocytes/100 leukocyt esOrdered By: Dr. Osorio on 06-13-2022 Monocytes/100 WBC (Bld) 6.3 % 0-10 [facility] Blood platelet mean volumeOr dered By: Dr. Osorio on 06-13-2022 Platelet mean volume (Bld) [Entitic vol] 8.9 fL 6.2-12.0 [facility] Determination of erythrocyte mean corpuscular volume (MCV)Ordered By: Dr. Osorio on 06-13-2022 MCV (RBC) [Entitic vol] 94.9 fL 81-99 [facility] HIV 1 and HIV-2 antibody ass ay with HIV-1 p24 antigen detectionOrdered By: Nicolette Blair on 06-13-2022 HIV 1+2 Ab+HIV1 p24 Ag IA Ql Non-Reactive Nonreactive [facility] Hematocrit Auto (Bld) [Volum e fraction]Ordered By: Dr. Osorio on 06-13-2022 Hematocrit (Bld) [Volume fraction] 39.0 % 37-47 [facility] Laboratory - Chemistry and C hemistry - challengeOrdered By: Dr. Osorio on 06-13-2022 ALP [Catalytic activity/Vol] 66 U/L 45-117 [facility] ALT [Catalytic activity/Vol] 22 U/L 13-56 [facility] CO2 [Moles/Vol] 28.0 mmol/L 21.0-32.0 [facility] Globulin (S) [Mass/Vol] 3.8 g/dL 2.2-4.2 [facility] Urea nitrogen/Creatinine [Mass ratio] 13.9 mg/mg 10-20 [facility] Laboratory - Chemistry and C hemistry - challengeOrdered By: Dr. Lou on 06-13-2022 Free T4 [Mass/Vol] 1.00 ng/dL 0.76-1.46 [facility] Laboratory - Hematology and Cell countsOrdered By: Dr. Osorio on 06-13-2022 Erythrocyte distribution width (RBC) [Entitic vol] 47.2 fL 35.1-43.9 [facility] Erythrocyte distribution width (RBC) [Ratio] 13.4 % 11.6-14.6 [facility] Immature granulocytes/100 WBC (Bld) 0.300 % 0.0-0.9 [facility] Comment on above: IG% - Immature Granu locytes (promyelocytes, myelocytes and metamyelocytes) > 1% indicates that a LEFT SHIFT is Present. MCH (RBC) [Entitic mass] 31.4 pg 27.0-32.0 [facility] Nucleated RBC/100 WBC (Bld) [Ratio] 0 % 0-5 [facility] MCHC Auto (RBC) [Mass/Vol]Or dered By: Dr. Osorio on 06-13-2022 MCHC (RBC) [Mass/Vol] 33.1 g/dL 32-36 [facility] No Panel InformationOrdered By: Dr. Osorio on 06-13-2022 Estimated GFR (MDRD) Amer 94 mL/min >60 [facility] Comment on above: GFR Calc Estimated GFR (MDRD) Non-Af Amer 77 mL/min >60 [facility] Comment on above: Non- GFR Calc No Panel InformationOrdered By: Nicolette Blair on 06-13-2022 Hepatitis B Surface Antigen Non-Reactive Nonreactive [facility] Hepatitis C Antibody Non-Reactive Nonreactive [facility] Comment on above: Non Reactive: < 0.8 Equivocal: >/= 0.8 to < 1.0 Reactive: >/= 1.0The CDC recommends that a reactive/equivocal HCV antibody result be followed up by the HCV Nucleic Acid Amplificationtest (382296) No Panel InformationOrdered By: Dr. Lou on 06-13-2022 Parathyroid Hormone (Intact) 138.9 pg/mL 18.4-80.1 [facility] Thyroid Stimulating Hormone (TSH) 0.99 uIU/mL 0.358-3.74 [facility] Vitamin D 25-Hydroxy 14.3 ng/mL [facility] Comment on above: Vitamin D 25(OH) Sta tus Range Deficiency <20 ng/mL (50nmol/L) Insufficiency 20 - 30 ng/mL (50 - 75 nmol/L) Sufficiency 30 - 100 ng/mL (75 - 250 nmol/L) Toxicity >100 ng/mL (>250 nmol/L) Platelets bldOrdered By: Dr. Osorio on 06-13-2022 Platelets (Bld) [#/Vol] 345 10*3/uL 150-450 [facility] Serum or plasma albumin sancho urement (mass/volume)Ordered By: Dr. Osorio on 06-13-2022 Albumin [Mass/Vol] 3.7 g/dL 3.2-5.0 [facility] Serum or plasma albumin/glob ulin mass ratioOrdered By: Dr. Osorio on 06-13-2022 Albumin/Globulin [Mass ratio] 1.0 {ratio} 0.9-2.4 [facility] Serum or plasma calcium sancho urement (mass/volume)Ordered By: Dr. Osorio on 06-13-2022 Calcium [Mass/Vol] 9.5 mg/dL 8.5-10.1 [facility] Serum or plasma creatinine m easurement (mass/volume)Ordered By: Dr. Osorio on 06-13-2022 Creatinine [Mass/Vol] 0.86 mg/dL 0.55-1.02 [facility] Comment on above: The validity of the calculated GFR & GFRAA in patients over 70 years has not been determined. Clinical correlation is essential. Serum or plasma thyroperoxid ase antibody assay (units/volume)Ordered By: Dr. Lou on 06-13-2022 TPO Ab Qn 26 [IU]/mL 0-34 [facility] Comment on above: Performed at: [place] [id number] Director: Levi Covarrubias PhD, Phone: [phone] Serum or plasma urea nitroge n measurement (mass/volume)Ordered By: Dr. Osorio on 06-13-2022 Urea nitrogen [Mass/Vol] 12 mg/dL 7-18 [facility] Thin prep Papanicolaou smear with manual screeningOrdered By: Dr. Osorio on 06-13-2022 Thin prep Papanicolaou smear with manual screening 13 U/L 15-37 [facility] Thin prep Papanicolaou smear with manual screening 7 5-15 [facility] Absolute lymphocyte countOrd ered By: Dr. Osorio on 04-22-2022 Lymphocytes Auto (Unsp spec) [#/Vol] 1.57 10*3/uL 0.83-4.51 [facility] Basophil percentageOrdered B y: Dr. Osorio on 04-22-2022 Basophils/100 WBC (Bld) 0.3 % 0-1 [facility] Bilirubin [Mass/Vol] 0.40 mg/dL 0.20-1.00 [facility] Comment on above: For patients on eltr ombopag therapy, use of Dimension [place] TBIL is not recommended. Chloride [Moles/Vol] 104 mmol/L 98-107 [facility] Eosinophils/100 WBC (Bld) 1.3 % 0-5 [facility] Glucose [Mass/Vol] 94 mg/dL 74-106 [facility] Neutrophils (Bld) [#/Vol] 5.4 10*3/uL 2.0-7.7 [facility] Neutrophils/100 WBC (Bld) 70.0 % 47-70 [facility] Potassium [Moles/Vol] 3.8 mmol/L 3.5-5.1 [facility] Protein [Mass/Vol] 8.2 g/dL 6.4-8.2 [facility] Sodium [Moles/Vol] 139 mmol/L 136-145 [facility] WBC (Bld) [#/Vol] 7.7 10*3/uL 4.4-11.0 [facility] Blood erythrocytes count (nu mber/volume)Ordered By: Dr. Osorio on 04-22-2022 RBC (Bld) [#/Vol] 4.47 10*6/uL 4.2-5.4 [facility] Blood hemoglobin measurement (mass/volume)Ordered By: Dr. Osorio on 04-22-2022 Hemoglobin (Bld) [Mass/Vol] 13.5 g/dL 12.0-15.0 [facility] Blood lymphocytes/100 leukoc ytesOrdered By: Dr. Osorio on 04-22-2022 Lymphocytes/100 WBC (Bld) 20.3 % 19-41 [facility] Blood monocytes/100 leukocyt esOrdered By: Dr. Osorio on 04-22-2022 Monocytes/100 WBC (Bld) 7.8 % 0-10 [facility] Blood platelet mean volumeOr dered By: Dr. Osorio on 04-22-2022 Platelet mean volume (Bld) [Entitic vol] 9.3 fL 6.2-12.0 [facility] Clostridium difficile detect ion by polymerase chain reactionOrdered By: Dirk Paula on 04-22-2022 C. difficile DNA TERESA+probe Ql (Unsp spec) [facility] Determination of erythrocyte mean corpuscular volume (MCV)Ordered By: Dr. Osorio on 04-22-2022 MCV (RBC) [Entitic vol] 94.0 fL 81-99 [facility] EP PanelOrdered By: Dirk viramontes on 04-22-2022 Gastrointestinal pathogens panel TERESA+probe (Stl) [facility] Hematocrit Auto (Bld) [Volum e fraction]Ordered By: Dr. Osorio on 04-22-2022 Hematocrit (Bld) [Volume fraction] 42.0 % 37-47 [facility] Laboratory - Chemistry and C hemistry - challengeOrdered By: Dr. Osorio on 04-22-2022 ALP [Catalytic activity/Vol] 76 U/L 45-117 [facility] ALT [Catalytic activity/Vol] 29 U/L 13-56 [facility] CO2 [Moles/Vol] 26.0 mmol/L 21.0-32.0 [facility] Globulin (S) [Mass/Vol] 4.3 g/dL 2.2-4.2 [facility] Urea nitrogen/Creatinine [Mass ratio] 9.1 mg/mg 10-20 [facility] Laboratory - Hematology and Cell countsOrdered By: Dr. Osorio on 04-22-2022 Erythrocyte distribution width (RBC) [Entitic vol] 44.7 fL 35.1-43.9 [facility] Erythrocyte distribution width (RBC) [Ratio] 13.2 % 11.6-14.6 [facility] Immature granulocytes/100 WBC (Bld) 0.300 % 0.0-0.9 [facility] Comment on above: IG% - Immature Granu locytes (promyelocytes, myelocytes and metamyelocytes) > 1% indicates that a LEFT SHIFT is Present. MCH (RBC) [Entitic mass] 30.2 pg 27.0-32.0 [facility] Nucleated RBC/100 WBC (Bld) [Ratio] 0 % 0-5 [facility] MCHC Auto (RBC) [Mass/Vol]Or dered By: Dr. Osorio on 04-22-2022 MCHC (RBC) [Mass/Vol] 32.1 g/dL 32-36 [facility] No Panel InformationOrdered By: Dr. Osorio on 04-22-2022 Estimated GFR (MDRD) Amer 71 mL/min >60 [facility] Comment on above: GFR Calc Estimated GFR (MDRD) Non-Af Amer 59 mL/min >60 [facility] Comment on above: Non- GFR Calc Platelets bldOrdered By: Dr. Osorio on 04-22-2022 Platelets (Bld) [#/Vol] 390 10*3/uL 150-450 [facility] Serum or plasma albumin sancho urement (mass/volume)Ordered By: Dr. Osorio on 04-22-2022 Albumin [Mass/Vol] 3.9 g/dL 3.2-5.0 [facility] Serum or plasma albumin/glob ulin mass ratioOrdered By: Dr. Osorio on 04-22-2022 Albumin/Globulin [Mass ratio] 0.9 {ratio} 0.9-2.4 [facility] Serum or plasma calcium sancho urement (mass/volume)Ordered By: Dr. Osorio on 04-22-2022 Calcium [Mass/Vol] 10.5 mg/dL 8.5-10.1 [facility] Serum or plasma creatinine m easurement (mass/volume)Ordered By: Dr. Osorio on 04-22-2022 Creatinine [Mass/Vol] 1.10 mg/dL 0.55-1.02 [facility] Comment on above: The validity of the calculated GFR & GFRAA in patients over 70 years has not been determined. Clinical correlation is essential. Serum or plasma urea nitroge n measurement (mass/volume)Ordered By: Dr. Osorio on 04-22-2022 Urea nitrogen [Mass/Vol] 10 mg/dL 7-18 [facility] Thin prep Papanicolaou smear with manual screeningOrdered By: Dr. Osorio on 04-22-2022 Thin prep Papanicolaou smear with manual screening 23 U/L 15-37 [facility] Thin prep Papanicolaou smear with manual screening 9 5-15 [facility] Absolute lymphocyte counton 03-22-2022 Lymphocytes Auto (Unsp spec) [#/Vol] 2.15 10*3/uL 0.83-4.51 [facility] Work Phone: Absolute reticulocyte counto n 03-22-2022 Reticulocytes (Bld) [#/Vol] 0.00 10*3/uL 0-5 [facility] Work Phone: Basophil percentageon 2021 Basophil percentage 3.3 mg/dL 2.5-4.9 [facility] Work Phone: Bilirubin [Mass/Vol] 0.40 mg/dL 0.20-1.00 [facility] Work Phone: Comment on above: For patients on eltr ombopag therapy, use of Dim[employer] [place] TBIL is not recommended. Chloride [Moles/Vol] 105 mmol/L 98-107 [facility] Work Phone: Cholesterol [Mass/Vol] 162 mg/dL <200 [facility] Work Phone: Comment on above: <200 mg/dL Desirable 200-240 mg/dL Borderline >240 mg/dL High Risk Glucose [Mass/Vol] 103 mg/dL 74-106 [facility] Work Phone: Comment on above: Fasting Glucose resu lt from 100 to 125 mg/dL suggests IMPAIRED HOMEOSTASIS per A.D.A. criteria. Neutrophils (Bld) [#/Vol] 4.1 10*3/uL 2.0-7.7 [facility] Work Phone: Potassium [Moles/Vol] 3.9 mmol/L 3.5-5.1 [facility] Work Phone: Protein [Mass/Vol] 7.1 g/dL 6.4-8.2 [facility] Work Phone: Sodium [Moles/Vol] 139 mmol/L 136-145 [facility] Work Phone: Triglyceride [Mass/Vol] 109 mg/dL <199 [facility] Work Phone: Comment on above: The drugs N-Acetylcy steine and Metamizole may falsely depress this assay.Serum Triglycerides Reference Interval Normal <150 mg/dL Borderline high 150 - 199 mg/dL High 200 - 499 mg/dL Very High > or = 500 mg/dL WBC (Bld) [#/Vol] 7.0 10*3/uL 4.4-11.0 [facility] Work Phone: Bilirubin Test strip Ql (U)o n 03-22-2022 Bilirubin Ql (U) Negative Negative [facility] Work Phone: Blood erythrocytes count (nu mber/volume)on 03-22-2022 RBC (Bld) [#/Vol] 3.97 10*6/uL 4.2-5.4 [facility] Work Phone: Blood hemoglobin measurement (mass/volume)on 03-22-2022 Hemoglobin (Bld) [Mass/Vol] 12.1 g/dL 12.0-15.0 [facility] Work Phone: Blood platelet mean volumeon 03-22-2022 Platelet mean volume (Bld) [Entitic vol] 9.6 fL 6.2-12.0 [facility] Work Phone: Determination of erythrocyte mean corpuscular volume (MCV)on 03-22-2022 MCV (RBC) [Entitic vol] 95.5 fL 81-99 [facility] Work Phone: Direct bilirubinon Bilirubin.direct [Mass/Vol] 0.11 mg/dL 0.00-0.30 [facility] Work Phone: Hematocrit Auto (Bld) [Volum e fraction]on 03-22-2022 Hematocrit (Bld) [Volume fraction] 37.9 % 37-47 [facility] Work Phone: [phone] Ketones Test strip Ql (U)on 03-22-2022 Ketones Ql (U) Negative Negative [facility] Work Phone: [phone] Laboratory - Chemistry and C hemistry - challengeon 03-22-2022 ALP [Catalytic activity/Vol] 60 U/L 45-117 [facility] Work Phone: ALT [Catalytic activity/Vol] 17 U/L 13-56 [facility] Work Phone: Cholesterol.total/Cho lesterol in HDL [Mass ratio] 2.80 {ratio} [facility] Work Phone: [phone] CO2 [Moles/Vol] 27.0 mmol/L 21.0-32.0 [facility] Work Phone: [phone] Free T4 [Mass/Vol] 1.03 ng/dL 0.76-1.46 [facility] Work Phone: [phone] Globulin (S) [Mass/Vol] 3.7 g/dL 2.2-4.2 [facility] Work Phone: [phone] Urea nitrogen/Creatinine [Mass ratio] 13.0 mg/mg 10-20 [facility] Work Phone: [phone] Laboratory - Hematology and Cell countson 03-22-2022 Erythrocyte distribution width (RBC) [Entitic vol] 45.8 fL 35.1-43.9 [facility] Work Phone: Erythrocyte distribution width (RBC) [Ratio] 13.1 % 11.6-14.6 [facility] Work Phone: [phone] MCH (RBC) [Entitic mass] 30.5 pg 27.0-32.0 [facility] Work Phone: Nucleated RBC/100 WBC (Bld) [Ratio] 0 % 0-5 [facility] Work Phone: [phone] MCHC Auto (RBC) [Mass/Vol]on 03-22-2022 MCHC (RBC) [Mass/Vol] 31.9 g/dL 32-36 [facility] Work Phone: Nitrite Test strip Ql (U)on 03-22-2022 Nitrite Ql (U) Negative Negative [facility] Work Phone: No Panel Informationon 03-22 Estimated GFR (MDRD) Amer 96 mL/min >60 [facility] Work Phone: Comment on above: GFR Calc Estimated GFR (MDRD) Non-Af Amer 79 mL/min >60 [facility] Work Phone: Comment on above: Non- GFR Calc Thyroid Stimulating Hormone (TSH) 0.35 uIU/mL 0.358-3.74 [facility] Work Phone: [phone] Platelets bldon 03-22-2022 Platelets (Bld) [#/Vol] 316 10*3/uL 150-450 [facility] Work Phone: [phone] Protein Test strip Ql (U)on 03-22-2022 Protein Ql (U) Negative Negative [facility] Work Phone: [phone] Segmented neutrophils/100 WB C Auto (Bld)on 03-22-2022 Segmented neutrophils/100 WBC (Bld) 58.9 % 47-70 [facility] Work Phone: [phone] Serum or plasma albumin sancho urement (mass/volume)on 03-22-2022 Albumin [Mass/Vol] 3.4 g/dL 3.2-5.0 [facility] Work Phone: [phone] Serum or plasma albumin/glob ulin mass ratioon 03-22-2022 Albumin/Globulin [Mass ratio] 0.9 {ratio} 0.9-2.4 [facility] Work Phone: [phone] Serum or plasma calcium sancho urement (mass/volume)on 03-22-2022 Calcium [Mass/Vol] 9.6 mg/dL 8.5-10.1 [facility] Work Phone: [phone] Serum or plasma cholesterol in HDL measurement (mass/volume)on 03-22-2022 Cholesterol in HDL [Mass/Vol] 57 mg/dL >40 [facility] Work Phone: Comment on above: The drugs N-Acetylcy steine and Metamizole may falsely depress this assay. Reference Range HDL <40 mg/dL Low HDL Cholesterol HDL >or= 60 mg/dL High HDL Cholesterol Serum or plasma cholesterol in VLDL measurement (mass/volume)on 03-22-2022 Cholesterol in VLDL [Mass/Vol] 22 mg/dL 5-40 [facility] Work Phone: Serum or plasma creatinine m easurement (mass/volume)on 03-22-2022 Creatinine [Mass/Vol] 0.85 mg/dL 0.55-1.02 [facility] Work Phone: Comment on above: The validity of the calculated GFR & GFRAA in patients over 70 years has not been determined. Clinical correlation is essential. Serum or plasma low density lipoprotein (LDL) cholesterol measurement (mass/volume)on 03-22-2022 Cholesterol in LDL [Mass/Vol] 83 mg/dL 0-130 [facility] Work Phone: Serum or plasma urea nitroge n measurement (mass/volume)on 03-22-2022 Urea nitrogen [Mass/Vol] 11 mg/dL 7-18 [facility] Work Phone: Serum or plasma uric acid me asurement (mass/volume)on 03-22-2022 Urate [Mass/Vol] 7.0 mg/dL 2.6-6.0 [facility] Work Phone: Comment on above: The drugs N-Acetylcy steine and Metamizole may falsely depress this assay. Thin prep Papanicolaou smear with manual screeningon 03-22-2022 Thin prep Papanicolaou smear with manual screening 13 U/L 15-37 [facility] Work Phone: Thin prep Papanicolaou smear with manual screening 7 5-15 [facility] Work Phone: Thin prep Papanicolaou smear with manual screening 215 U/L 84-246 [facility] Work Phone: Urine blood detectionon 09-0 RBC Ql (U) Negative Negative [facility] Work Phone: Urine clarityon 03-22-2022 Clarity (U) Clear Clear [facility] Work Phone: Urine color determinationon 03-22-2022 Color (U) Straw Yellow [facility] Work Phone: Urine glucose detectionon Glucose Ql (U) Normal mg/dl Normal [facility] Work Phone: Urine leukocyte esterase det ection by dipstickon 03-22-2022 Leukocyte esterase Test strip Ql (U) Negative Negative [facility] Work Phone: Urine pHon 03-22-2022 pH (U) 7.0 [pH] 5.0 - 8.0 [facility] Work Phone: Urine specific gravity measu rementon 03-22-2022 Specific gravity (U) [Rel density] 1.010 1.002-1.030 [facility] Work Phone: Urobilinogen Auto test strip Ql (U)on 03-22-2022 Urobilinogen Ql (U) Normal mg/dl Normal [facility] Work Phone: HIV 1 and HIV-2 antibody ass ay with HIV-1 p24 antigen detectionon 03-07-2022 HIV 1+2 Ab+HIV1 p24 Ag IA Ql Non-Reactive Nonreactive [facility] Work Phone: No Panel Informationon 03-07 Hepatitis B Surface Antigen Non-Reactive Nonreactive [facility] Work Phone: Hepatitis C Antibody Non-Reactive Nonreactive [facility] Work Phone: Comment on above: Non Reactive: < 0.8 Equivocal: >/= 0.8 to < 1.0 Reactive: >/= 1.0The CDC recommends that a reactive/equivocal HCV antibody result be followed up by the HCV Nucleic Acid Amplificationtest (523645) Serum hepatitis B virus surf tracy antibody IgG detectionon 03-07-2022 HBV surface IgG Ql (S) Reactive [facility] Work Phone: [phone] Comment on above: Non Reactive: Incons istent with immunity less than <10 mIU/mL Reactive: Consistent with immunity greater than or equal to 10 mIU/mL Laboratory - Microbiology an d Antimicrobial susceptibilityon 02-10-2022 SARS-CoV-2 (COVID-19) RNA TERESA+probe Ql (Unsp spec) Detected [facility] Work Phone: [phone] No Panel Informationon 02-10 Influenza Types A,B Rapid (Clinic) Not detected [facility] Work Phone: [phone] Absolute lymphocyte counton 01-11-2022 Lymphocytes Auto (Unsp spec) [#/Vol] 1.75 10*3/uL 0.83-4.51 [facility] Work Phone: [phone] Basophil percentageon 2021 Basophils/100 WBC (Bld) 0.8 % 0-1 [facility] Work Phone: [phone] Bilirubin [Mass/Vol] 0.30 mg/dL 0.20-1.00 [facility] Work Phone: [phone] Comment on above: For patients on eltr ombopag therapy, use of Dimension [place] TBIL is not recommended. Chloride [Moles/Vol] 103 mmol/L 98-107 [facility] Work Phone: Eosinophils/100 WBC (Bld) 2.5 % 0-5 [facility] Work Phone: [phone] Glucose [Mass/Vol] 93 mg/dL 74-106 [facility] Work Phone: Neutrophils (Bld) [#/Vol] 4.9 10*3/uL 2.0-7.7 [facility] Work Phone: Neutrophils/100 WBC (Bld) 65.7 % 47-70 [facility] Work Phone: [phone] Potassium [Moles/Vol] 3.9 mmol/L 3.5-5.1 [facility] Work Phone: [phone] Protein [Mass/Vol] 7.5 g/dL 6.4-8.2 [facility] Work Phone: Sodium [Moles/Vol] 138 mmol/L 136-145 [facility] Work Phone: WBC (Bld) [#/Vol] 7.5 10*3/uL 4.4-11.0 [facility] Work Phone: Blood erythrocytes count (nu mber/volume)on 01-11-2022 RBC (Bld) [#/Vol] 3.88 10*6/uL 4.2-5.4 [facility] Work Phone: [phone] Blood hemoglobin measurement (mass/volume)on 01-11-2022 Hemoglobin (Bld) [Mass/Vol] 12.4 g/dL 12.0-15.0 [facility] Work Phone: Blood lymphocytes/100 leukoc yteson 01-11-2022 Lymphocytes/100 WBC (Bld) 23.3 % 19-41 [facility] Work Phone: Blood monocytes/100 leukocyt eson 01-11-2022 Monocytes/100 WBC (Bld) 7.3 % 0-10 [facility] Work Phone: Blood platelet mean volumeon 01-11-2022 Platelet mean volume (Bld) [Entitic vol] 9.5 fL 6.2-12.0 [facility] Work Phone: [phone] Determination of erythrocyte mean corpuscular volume (MCV)on 01-11-2022 MCV (RBC) [Entitic vol] 109.3 fL 81-99 [facility] Work Phone: Hematocrit Auto (Bld) [Volum e fraction]on 01-11-2022 Hematocrit (Bld) [Volume fraction] 42.4 % 37-47 [facility] Work Phone: [phone] Laboratory - Chemistry and C hemistry - challengeon 01-11-2022 Free T4 [Mass/Vol] 0.96 ng/dL 0.76-1.46 [facility] Work Phone: ALP [Catalytic activity/Vol] 72 U/L 45-117 [facility] Work Phone: ALT [Catalytic activity/Vol] 18 U/L 13-56 [facility] Work Phone: CO2 [Moles/Vol] 30.0 mmol/L 21.0-32.0 [facility] Work Phone: [phone] Globulin (S) [Mass/Vol] 3.9 g/dL 2.2-4.2 [facility] Work Phone: [phone] Urea nitrogen/Creatinine [Mass ratio] 8.1 mg/mg 10-20 [facility] Work Phone: Laboratory - Hematology and Cell countson 01-11-2022 Erythrocyte distribution width (RBC) [Entitic vol] 57.1 fL 35.1-43.9 [facility] Work Phone: [phone] Erythrocyte distribution width (RBC) [Ratio] 14.1 % 11.6-14.6 [facility] Work Phone: [phone] Immature granulocytes/100 WBC (Bld) 0.400 % 0.0-0.9 [facility] Work Phone: Comment on above: IG% - Immature Granu locytes (promyelocytes, myelocytes and metamyelocytes) > 1% indicates that a LEFT SHIFT is Present. MCH (RBC) [Entitic mass] 32.0 pg 27.0-32.0 [facility] Work Phone: [phone] Nucleated RBC/100 WBC (Bld) [Ratio] 0 % 0-5 [facility] Work Phone: MCHC Auto (RBC) [Mass/Vol]on 01-11-2022 MCHC (RBC) [Mass/Vol] 29.2 g/dL 32-36 [facility] Work Phone: No Panel Informationon 01-11 Thyroid Stimulating Hormone (TSH) 0.32 uIU/mL 0.358-3.74 [facility] Work Phone: [phone] Estimated GFR (MDRD) Amer 112 mL/min >60 [facility] Work Phone: Comment on above: GFR Calc Estimated GFR (MDRD) Non-Af Amer 93 mL/min >60 [facility] Work Phone: Comment on above: Non- GFR Calc Platelets bldon 01-11-2022 Platelets (Bld) [#/Vol] 255 10*3/uL 150-450 [facility] Work Phone: Serum or plasma albumin sancho urement (mass/volume)on 01-11-2022 Albumin [Mass/Vol] 3.6 g/dL 3.2-5.0 [facility] Work Phone: Serum or plasma albumin/glob ulin mass ratioon 01-11-2022 Albumin/Globulin [Mass ratio] 0.9 {ratio} 0.9-2.4 [facility] Work Phone: Serum or plasma calcium sancho urement (mass/volume)on 01-11-2022 Calcium [Mass/Vol] 9.8 mg/dL 8.5-10.1 [facility] Work Phone: Serum or plasma creatinine m easurement (mass/volume)on 01-11-2022 Creatinine [Mass/Vol] 0.74 mg/dL 0.55-1.02 [facility] Work Phone: Comment on above: The validity of the calculated GFR & GFRAA in patients over 70 years has not been determined. Clinical correlation is essential. Serum or plasma urea nitroge n measurement (mass/volume)on 01-11-2022 Urea nitrogen [Mass/Vol] 6 mg/dL 7-18 [facility] Work Phone: Thin prep Papanicolaou smear with manual screeningon 01-11-2022 Thin prep Papanicolaou smear with manual screening 12 U/L 15-37 [facility] Work Phone: Thin prep Papanicolaou smear with manual screening 5 5-15 [facility] Work Phone: Absolute lymphocyte counton 12-27-2021 Lymphocytes Auto (Unsp spec) [#/Vol] 2.52 10*3/uL 0.83-4.51 [facility] Work Phone: Basophil percentageon 2021 Chloride [Moles/Vol] 103 mmol/L 98-107 [facility] Work Phone: Glucose [Mass/Vol] 84 mg/dL 74-106 [facility] Work Phone: Potassium [Moles/Vol] 3.9 mmol/L 3.5-5.1 [facility] Work Phone: Sodium [Moles/Vol] 138 mmol/L 136-145 [facility] Work Phone: Basophils/100 WBC (Bld) 0.6 % 0-1 [facility] Work Phone: Eosinophils/100 WBC (Bld) 2.6 % 0-5 [facility] Work Phone: Neutrophils (Bld) [#/Vol] 3.6 10*3/uL 2.0-7.7 [facility] Work Phone: Neutrophils/100 WBC (Bld) 53.3 % 47-70 [facility] Work Phone: WBC (Bld) [#/Vol] 6.8 10*3/uL 4.4-11.0 [facility] Work Phone: Blood erythrocytes count (nu mber/volume)on 12-27-2021 RBC (Bld) [#/Vol] 4.19 10*6/uL 4.2-5.4 [facility] Work Phone: Blood hemoglobin measurement (mass/volume)on 12-27-2021 Hemoglobin (Bld) [Mass/Vol] 12.8 g/dL 12.0-15.0 [facility] Work Phone: Blood lymphocytes/100 leukoc yteson 12-27-2021 Lymphocytes/100 WBC (Bld) 37.0 % 19-41 [facility] Work Phone: Blood monocytes/100 leukocyt eson 12-27-2021 Monocytes/100 WBC (Bld) 6.2 % 0-10 [facility] Work Phone: [phone] Blood platelet mean volumeon 12-27-2021 Platelet mean volume (Bld) [Entitic vol] 9.8 fL 6.2-12.0 [facility] Work Phone: Determination of erythrocyte mean corpuscular volume (MCV)on 12-27-2021 MCV (RBC) [Entitic vol] 95.5 fL 81-99 [facility] Work Phone: [phone] Hematocrit Auto (Bld) [Volum e fraction]on 12-27-2021 Hematocrit (Bld) [Volume fraction] 40.0 % 37-47 [facility] Work Phone: [phone] Iron measurement (mass/mass) on 12-27-2021 Iron (Unsp spec) [Mass/Mass] 55 ug/dL 50-170 [facility] Work Phone: Laboratory - Chemistry and C hemistry - challengeon 12-27-2021 CO2 [Moles/Vol] 29.0 mmol/L 21.0-32.0 [facility] Work Phone: [phone] Urea nitrogen/Creatinine [Mass ratio] 10.8 mg/mg 10-20 [facility] Work Phone: [phone] Laboratory - Hematology and Cell countson 12-27-2021 Erythrocyte distribution width (RBC) [Entitic vol] 46.8 fL 35.1-43.9 [facility] Work Phone: [phone] Erythrocyte distribution width (RBC) [Ratio] 13.2 % 11.6-14.6 [facility] Work Phone: [phone] Immature granulocytes/100 WBC (Bld) 0.300 % 0.0-0.9 [facility] Work Phone: Comment on above: IG% - Immature Granu locytes (promyelocytes, myelocytes and metamyelocytes) > 1% indicates that a LEFT SHIFT is Present. MCH (RBC) [Entitic mass] 30.5 pg 27.0-32.0 [facility] Work Phone: Nucleated RBC/100 WBC (Bld) [Ratio] 0 % 0-5 [facility] Work Phone: MCHC Auto (RBC) [Mass/Vol]on 12-27-2021 MCHC (RBC) [Mass/Vol] 32.0 g/dL 32-36 [facility] Work Phone: No Panel Informationon 12-27 Estimated GFR (MDRD) Amer 86 mL/min >60 [facility] Work Phone: Comment on above: GFR Calc Estimated GFR (MDRD) Non-Af Amer 71 mL/min >60 [facility] Work Phone: Comment on above: Non- GFR Calc Total Iron Binding Capacity 413 ug/dL 250-450 [facility] Work Phone: Platelets bldon 12-27-2021 Platelets (Bld) [#/Vol] 346 10*3/uL 150-450 [facility] Work Phone: Serum or plasma calcium sancho urement (mass/volume)on 12-27-2021 Calcium [Mass/Vol] 9.6 mg/dL 8.5-10.1 [facility] Work Phone: Serum or plasma creatinine m easurement (mass/volume)on 12-27-2021 Creatinine [Mass/Vol] 0.93 mg/dL 0.55-1.02 [facility] Work Phone: Comment on above: The validity of the calculated GFR & GFRAA in patients over 70 years has not been determined. Clinical correlation is essential. Serum or plasma ferritin vinayak surement (mass/volume)on 12-27-2021 Ferritin [Mass/Vol] 36 ng/mL 8-252 [facility] Work Phone: Serum or plasma iron saturat ion measurement (mass fraction)on 12-27-2021 Iron saturation [Mass fraction] 13.3 % 15.0-55.0 [facility] Work Phone: Serum or plasma urea nitroge n measurement (mass/volume)on 12-27-2021 Urea nitrogen [Mass/Vol] 10 mg/dL 7-18 [facility] Work Phone: Thin prep Papanicolaou smear with manual screeningon 12-27-2021 Thin prep Papanicolaou smear with manual screening 6 5-15 [facility] Work Phone: Absolute lymphocyte counton 10-21-2021 Lymphocytes Auto (Unsp spec) [#/Vol] 1.87 10*3/uL 0.83-4.51 [facility] Work Phone: Basophil percentageon 2021 Basophils/100 WBC (Bld) 0.8 % 0-1 [facility] Work Phone: Eosinophils/100 WBC (Bld) 2.0 % 0-5 [facility] Work Phone: Neutrophils (Bld) [#/Vol] 3.8 10*3/uL 2.0-7.7 [facility] Work Phone: Neutrophils/100 WBC (Bld) 59.2 % 47-70 [facility] Work Phone: WBC (Bld) [#/Vol] 6.5 10*3/uL 4.4-11.0 [facility] Work Phone: Bilirubin [Mass/Vol] 0.20 mg/dL 0.20-1.00 [facility] Work Phone: Comment on above: For patients on eltr ombopag therapy, use of Dimension [place] TBIL is not recommended. Chloride [Moles/Vol] 105 mmol/L 98-107 [facility] Work Phone: Glucose [Mass/Vol] 83 mg/dL 74-106 [facility] Work Phone: Potassium [Moles/Vol] 4.1 mmol/L 3.5-5.1 [facility] Work Phone: Protein [Mass/Vol] 7.3 g/dL 6.4-8.2 [facility] Work Phone: Sodium [Moles/Vol] 137 mmol/L 136-145 [facility] Work Phone: Blood erythrocytes count (nu mber/volume)on 10-21-2021 RBC (Bld) [#/Vol] 3.78 10*6/uL 4.2-5.4 [facility] Work Phone: [phone] Blood hemoglobin measurement (mass/volume)on 10-21-2021 Hemoglobin (Bld) [Mass/Vol] 11.6 g/dL 12.0-15.0 [facility] Work Phone: Blood lymphocytes/100 leukoc yteson 10-21-2021 Lymphocytes/100 WBC (Bld) 28.9 % 19-41 [facility] Work Phone: Blood monocytes/100 leukocyt eson 10-21-2021 Monocytes/100 WBC (Bld) 8.8 % 0-10 [facility] Work Phone: Blood platelet mean volumeon 10-21-2021 Platelet mean volume (Bld) [Entitic vol] 9.4 fL 6.2-12.0 [facility] Work Phone: [phone] Determination of erythrocyte mean corpuscular volume (MCV)on 10-21-2021 MCV (RBC) [Entitic vol] 96.6 fL 81-99 [facility] Work Phone: Hematocrit Auto (Bld) [Volum e fraction]on 10-21-2021 Hematocrit (Bld) [Volume fraction] 36.5 % 37-47 [facility] Work Phone: [phone] Laboratory - Chemistry and C hemistry - challengeon 10-21-2021 ALP [Catalytic activity/Vol] 62 U/L 45-117 [facility] Work Phone: ALT [Catalytic activity/Vol] 22 U/L 13-56 [facility] Work Phone: CO2 [Moles/Vol] 29.0 mmol/L 21.0-32.0 [facility] Work Phone: Free T4 [Mass/Vol] 1.08 ng/dL 0.76-1.46 [facility] Work Phone: Globulin (S) [Mass/Vol] 3.9 g/dL 2.2-4.2 [facility] Work Phone: Urea nitrogen/Creatinine [Mass ratio] 12.0 mg/mg 10-20 [facility] Work Phone: Laboratory - Hematology and Cell countson 10-21-2021 Erythrocyte distribution width (RBC) [Entitic vol] 46.0 fL 35.1-43.9 [facility] Work Phone: Erythrocyte distribution width (RBC) [Ratio] 13.1 % 11.6-14.6 [facility] Work Phone: Immature granulocytes/100 WBC (Bld) 0.300 % 0.0-0.9 [facility] Work Phone: Comment on above: IG% - Immature Granu locytes (promyelocytes, myelocytes and metamyelocytes) > 1% indicates that a LEFT SHIFT is Present. MCH (RBC) [Entitic mass] 30.7 pg 27.0-32.0 [facility] Work Phone: Nucleated RBC/100 WBC (Bld) [Ratio] 0 % 0-5 [facility] Work Phone: MCHC Auto (RBC) [Mass/Vol]on 10-21-2021 MCHC (RBC) [Mass/Vol] 31.8 g/dL 32-36 [facility] Work Phone: No Panel Informationon 10-21 Estimated GFR (MDRD) Amer 98 mL/min >60 [facility] Work Phone: Comment on above: GFR Calc Estimated GFR (MDRD) Non-Af Amer 81 mL/min >60 [facility] Work Phone: Comment on above: Non- GFR Calc Thyroid Stimulating Hormone (TSH) 0.15 uIU/mL 0.358-3.74 [facility] Work Phone: Platelets bldon 10-21-2021 Platelets (Bld) [#/Vol] 306 10*3/uL 150-450 [facility] Work Phone: Serum or plasma albumin sancho urement (mass/volume)on 10-21-2021 Albumin [Mass/Vol] 3.4 g/dL 3.2-5.0 [facility] Work Phone: Serum or plasma albumin/glob ulin mass ratioon 10-21-2021 Albumin/Globulin [Mass ratio] 0.9 {ratio} 0.9-2.4 [facility] Work Phone: Serum or plasma calcium sancho urement (mass/volume)on 10-21-2021 Calcium [Mass/Vol] 9.2 mg/dL 8.5-10.1 [facility] Work Phone: Serum or plasma creatinine m easurement (mass/volume)on 10-21-2021 Creatinine [Mass/Vol] 0.83 mg/dL 0.55-1.02 [facility] Work Phone: Comment on above: The validity of the calculated GFR & GFRAA in patients over 70 years has not been determined. Clinical correlation is essential. Serum or plasma urea nitroge n measurement (mass/volume)on 10-21-2021 Urea nitrogen [Mass/Vol] 10 mg/dL 7-18 [facility] Work Phone: Thin prep Papanicolaou smear with manual screeningon 10-21-2021 Thin prep Papanicolaou smear with manual screening 13 U/L 15-37 [facility] Work Phone: Thin prep Papanicolaou smear with manual screening 3 5-15 [facility] Work Phone: Bilirubin Test strip Ql (U)o n 09-14-2021 Bilirubin Ql (U) Negative Negative [facility] Work Phone: Ketones Test strip Ql (U)on 09-14-2021 Ketones Ql (U) Negative Negative [facility] Work Phone: Nitrite Test strip Ql (U)on 09-14-2021 Nitrite Ql (U) Negative Negative [facility] Work Phone: [phone] Protein Test strip Ql (U)on 09-14-2021 Protein Ql (U) Negative Negative [facility] Work Phone: [phone] Urine blood detectionon 03-0 RBC Ql (U) Negative Negative [facility] Work Phone: [phone] Urine clarityon 09-14-2021 Clarity (U) Clear Clear [facility] Work Phone: [phone] Urine color determinationon 09-14-2021 Color (U) Yellow Yellow [facility] Work Phone: [phone] Urine creatinine measurement (mass/volume)on 09-14-2021 Creatinine (U) [Mass/Vol] 20.20 mg/dL NO RANGE EST. [facility] Work Phone: [phone] Urine glucose detectionon Glucose Ql (U) Normal mg/dl Normal [facility] Work Phone: [phone] Urine leukocyte esterase det ection by dipstickon 09-14-2021 Leukocyte esterase Test strip Ql (U) Negative Negative [facility] Work Phone: [phone] Urine pHon 09-14-2021 pH (U) 7.0 [pH] 5.0 - 8.0 [facility] Work Phone: [phone] Urine protein measurement (m ass/volume)on 09-14-2021 Protein (U) [Mass/Vol] mg/dL 0.0-11.8 [facility] Work Phone: [phone] Urine specific gravity measu rementon 09-14-2021 Specific gravity (U) [Rel density] 1.005 1.002-1.030 [facility] Work Phone: [phone] Urobilinogen Auto test strip Ql (U)on 09-14-2021 Urobilinogen Ql (U) Normal mg/dl Normal [facility] Work Phone: [phone] Absolute lymphocyte counton 09-13-2021 Lymphocytes Auto (Unsp spec) [#/Vol] 1.48 10*3/uL 0.83-4.51 [facility] Work Phone: Basophil percentageon 2021 Basophil percentage 4.7 AI 0.0-0.9 [facility] Work Phone: Basophil percentage < 0.2 AI 0.0-0.9 [facility] Work Phone: Basophils/100 WBC (Bld) 0.7 % 0-1 [facility] Work Phone: Bilirubin [Mass/Vol] 0.30 mg/dL 0.20-1.00 [facility] Work Phone: Comment on above: For patients on eltr ombopag therapy, use of Dimension [place] TBIL is not recommended. Chloride [Moles/Vol] 105 mmol/L 98-107 [facility] Work Phone: Eosinophils/100 WBC (Bld) 1.8 % 0-5 [facility] Work Phone: Glucose [Mass/Vol] 96 mg/dL 74-106 [facility] Work Phone: Neutrophils (Bld) [#/Vol] 3.9 10*3/uL 2.0-7.7 [facility] Work Phone: Neutrophils/100 WBC (Bld) 64.9 % 47-70 [facility] Work Phone: Potassium [Moles/Vol] 3.9 mmol/L 3.5-5.1 [facility] Work Phone: Protein [Mass/Vol] 7.4 g/dL 6.4-8.2 [facility] Work Phone: Sodium [Moles/Vol] 139 mmol/L 136-145 [facility] Work Phone: WBC (Bld) [#/Vol] 6.0 10*3/uL 4.4-11.0 [facility] Work Phone: Blood erythrocytes count (nu mber/volume)on 09-13-2021 RBC (Bld) [#/Vol] 3.76 10*6/uL 4.2-5.4 [facility] Work Phone: Blood hemoglobin measurement (mass/volume)on 09-13-2021 Hemoglobin (Bld) [Mass/Vol] 11.7 g/dL 12.0-15.0 [facility] Work Phone: Blood lymphocytes/100 leukoc yteson 09-13-2021 Lymphocytes/100 WBC (Bld) 24.7 % 19-41 [facility] Work Phone: [phone] Blood monocytes/100 leukocyt eson 09-13-2021 Monocytes/100 WBC (Bld) 7.7 % 0-10 [facility] Work Phone: Blood platelet mean volumeon 09-13-2021 Platelet mean volume (Bld) [Entitic vol] 9.3 fL 6.2-12.0 [facility] Work Phone: CNOVon 09-13-2021 CNOV Office Visit (RHBATH ) ALMA ADEN ([id number]) 1980 F Date Time Provider Department 09/13/21 8:20 AM FLOWER [facility]EDO RHBABDOUL During your visit today, we recorded the [...] the mornings and evenings. 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 Swelling in hands towards the end of [...] why weight (more content not included)... Normal [facility] Anahy 09-13-2021 FLY Telephone (RULTTB) ALMA ADEN ([id number]) 1980 F Date Time Provider Department 09/13/21 [...] Status:Closed by MOSES LEE on 09/15/[address] [facility] Determination of erythrocyte mean corpuscular volume (MCV)on 09-13-2021 MCV (RBC) [Entitic vol] 95.2 fL 81-99 [facility] Work Phone: Hematocrit Auto (Bld) [Volum e fraction]on 09-13-2021 Hematocrit (Bld) [Volume fraction] 35.8 % 37-47 [facility] Work Phone: Iron measurement (mass/mass) on 09-13-2021 Iron (Unsp spec) [Mass/Mass] 65 ug/dL 50-170 [facility] Work Phone: Laboratory - Chemistry and C hemistry - challengeon 09-13-2021 ALP [Catalytic activity/Vol] 64 U/L 45-117 [facility] Work Phone: ALT [Catalytic activity/Vol] 25 U/L 13-56 [facility] Work Phone: CK [Catalytic activity/Vol] 62 U/L 26-192 [facility] Work Phone: CO2 [Moles/Vol] 29.0 mmol/L 21.0-32.0 [facility] Work Phone: Cobalamin (Vitamin B12) [Mass/Vol] 405 pg/mL 211-911 [facility] Work Phone: Globulin (S) [Mass/Vol] 3.8 g/dL 2.2-4.2 [facility] Work Phone: Urea nitrogen/Creatinine [Mass ratio] 14.5 mg/mg 10-20 [facility] Work Phone: Laboratory - Hematology and Cell countson 09-13-2021 Erythrocyte distribution width (RBC) [Entitic vol] 47.2 fL 35.1-43.9 [facility] Work Phone: Erythrocyte distribution width (RBC) [Ratio] 13.5 % 11.6-14.6 [facility] Work Phone: Immature granulocytes/100 WBC (Bld) 0.200 % 0.0-0.9 [facility] Work Phone: Comment on above: IG% - Immature Granu locytes (promyelocytes, myelocytes and metamyelocytes) > 1% indicates that a LEFT SHIFT is Present. MCH (RBC) [Entitic mass] 31.1 pg 27.0-32.0 [facility] Work Phone: [phone] Nucleated RBC/100 WBC (Bld) [Ratio] 0 % 0-5 [facility] Work Phone: MCHC Auto (RBC) [Mass/Vol]on 09-13-2021 MCHC (RBC) [Mass/Vol] 32.7 g/dL 32-36 [facility] Work Phone: No Panel Informationon 09-13 Anti-Gliadin IgA Antibody 4 units 0-19 [facility] Work Phone: Comment on above: Negative 0 - 19 Weak Positive 20 - 30 Moderate to Strong Positive >30 Anti-Gliadin IgG Antibody 2 units 0-19 [facility] Work Phone: Comment on above: Negative 0 - 19 Weak Positive 20 - 30 Moderate to Strong Positive >30 Estimated GFR (MDRD) Amer 121 mL/min >60 [facility] Work Phone: Comment on above: GFR Calc Estimated GFR (MDRD) Non-Af Amer 100 mL/min >60 [facility] Work Phone: Comment on above: Non- GFR Calc [employer] Antibody 0.4 AI 0.0-0.9 [facility] Work Phone: Tissue Transglutaminase IgG Ab <2 U/mL 0-5 [facility] Work Phone: Comment on above: Negative 0 - 5 Weak Positive 6 - 9 Positive >9Performed at: [facility] [address] [id number] Director: Levi Covarrubias PhD, Phone: [phone] at: [facility] [employer] [address] [id number] Director: Joyce Tatum MD, Phone: [phone] Total Iron Binding Capacity 386 ug/dL 250-450 [facility] Work Phone: Vitamin D 25-Hydroxy 25.3 ng/mL [facility] Work Phone: Comment on above: Vitamin D 25(OH) Sta tus Range Deficiency <20 ng/mL (50nmol/L) Insufficiency 20 - 30 ng/mL (50 - 75 nmol/L) Sufficiency 30 - 100 ng/mL (75 - 250 nmol/L) Toxicity >100 ng/mL (>250 nmol/L) Platelets bldon 09-13-2021 Platelets (Bld) [#/Vol] 317 10*3/uL 150-450 [facility] Work Phone: Serum DNA double strand anti body assay (units/volume)on 09-13-2021 DNA double strand Ab Qn (S) 1 [IU]/mL 0-9 [facility] Work Phone: Comment on above: Negative <5 Equivoca l 5 - 9 Positive >9 Serum Humphries extractable nucl ear antibody detectionon 09-13-2021 Humphries extractable nuclear Ab Ql (S) <0.2 AI 0.0-0.9 [facility] Work Phone: Serum cyclic citrullinated p eptide IgG antibody assay (units/volume)on 09-13-2021 Cyclic citrullinated peptide IgG Qn 7 units 0-19 [facility] Work Phone: Comment on above: Negative <20 Weak po sitive 20 - 39 Moderate positive 40 - 59 Strong positive >59 Serum nuclear antibody titer by immunofluorescenceon 09-13-2021 Nuclear Ab IF (S) [Titer] Negative . [facility] Work Phone: Comment on above: Negative <1:80 Borde rline 1:80 Positive >1:80ICAP nomenclature: [id number] more information about Hep-2 cell patterns useANApatterns.org, the official website for theInternational Consensus on Antinuclear Antibody (SHAWANDA)Patterns (ICAP).Performed at: [address] [id number] Director: Levi Covarrubias PhD, Phone: [phone] Serum or plasma albumin sancho urement (mass/volume)on 09-13-2021 Albumin [Mass/Vol] 3.6 g/dL 3.2-5.0 [facility] Work Phone: Serum or plasma albumin/glob ulin mass ratioon 09-13-2021 Albumin/Globulin [Mass ratio] 0.9 {ratio} 0.9-2.4 [facility] Work Phone: Serum or plasma calcium sancho urement (mass/volume)on 09-13-2021 Calcium [Mass/Vol] 9.5 mg/dL 8.5-10.1 [facility] Work Phone: Serum or plasma creatinine m easurement (mass/volume)on 09-13-2021 Creatinine [Mass/Vol] 0.69 mg/dL 0.55-1.02 [facility] Work Phone: Comment on above: The validity of the calculated GFR & GFRAA in patients over 70 years has not been determined. Clinical correlation is essential. Serum or plasma ferritin vinayak surement (mass/volume)on 09-13-2021 Ferritin [Mass/Vol] 38 ng/mL 8-252 [facility] Work Phone: Serum or plasma iron saturat ion measurement (mass fraction)on 09-13-2021 Iron saturation [Mass fraction] 16.8 % 15.0-55.0 [facility] Work Phone: Serum or plasma urea nitroge n measurement (mass/volume)on 09-13-2021 Urea nitrogen [Mass/Vol] 10 mg/dL 7-18 [facility] Work Phone: Serum rheumatoid factor dete ctionon 09-13-2021 Rheumatoid factor Ql (S) < 10.0 IU/mL <15 [facility] Work Phone: Serum tissue transglutaminas e IgA antibody assay (units/volume)on 09-13-2021 tTG IgA Qn (S) <2 U/mL 0-3 [facility] Work Phone: Comment on above: Negative 0 - 3 Weak Positive 4 - 10 Positive >10 Tissue Transglutaminase (tTG) has been identified as the endomysial antigen. Studies have demonstr- ated that endomysial IgA antibodies have over 99% specificity for gluten sensitive enteropathy. Thin prep Papanicolaou smear with manual screeningon 09-13-2021 Thin prep Papanicolaou smear with manual screening 16 U/L 15-37 [facility] Work Phone: Thin prep Papanicolaou smear with manual screening 5 5-15 [facility] Work Phone: Laboratory - Hematology and Cell countson 08-19-2021 HbA1c (Bld) [Mass fraction] 5.7 % [facility] Work Phone: [phone] Absolute lymphocyte counton 07-26-2021 Lymphocytes Auto (Unsp spec) [#/Vol] 2.10 10*3/uL 0.83-4.51 [facility] Work Phone: [phone] Basophil percentageon 2021 Basophils/100 WBC (Bld) 0.5 % 0-1 [facility] Work Phone: [phone] Bilirubin [Mass/Vol] 0.40 mg/dL 0.20-1.00 [facility] Work Phone: [phone] Comment on above: For patients on eltr ombopag therapy, use of Dimension [place] TBIL is not recommended. Chloride [Moles/Vol] 104 mmol/L 98-107 [facility] [facility] Work Phone: Eosinophils/100 WBC (Bld) 2.9 % 0-5 [facility] Work Phone: [phone] Glucose [Mass/Vol] 100 mg/dL 74-106 [facility] Work Phone: [phone] Comment on above: Fasting Glucose resu lt from 100 to 125 mg/dL suggests IMPAIRED HOMEOSTASIS per A.D.A. criteria.Please note revised GLUCOSE reference range effective 2017. Neutrophils (Bld) [#/Vol] 4.6 10*3/uL 2.0-7.7 [facility] Work Phone: [phone] Neutrophils/100 WBC (Bld) 61.0 % 47-70 [facility] Work Phone: [phone] Potassium [Moles/Vol] 3.7 mmol/L 3.5-5.1 [facility] Work Phone: [phone] Protein [Mass/Vol] 7.8 g/dL 6.4-8.2 [facility] Work Phone: [phone] Sodium [Moles/Vol] 138 mmol/L 136-145 [facility] Work Phone: [phone] WBC (Bld) [#/Vol] 7.5 10*3/uL 4.4-11.0 [facility] Work Phone: Blood erythrocytes count (nu mber/volume)on 07-26-2021 RBC (Bld) [#/Vol] 3.88 10*6/uL 4.2-5.4 [facility] Work Phone: [phone] Blood hemoglobin measurement (mass/volume)on 07-26-2021 Hemoglobin (Bld) [Mass/Vol] 11.7 g/dL 12.0-15.0 [facility] Work Phone: Blood lymphocytes/100 leukoc yteson 07-26-2021 Lymphocytes/100 WBC (Bld) 28.1 % 19-41 [facility] Work Phone: Blood monocytes/100 leukocyt eson 07-26-2021 Monocytes/100 WBC (Bld) 7.0 % 0-10 [facility] Work Phone: Blood platelet mean volumeon 07-26-2021 Platelet mean volume (Bld) [Entitic vol] 9.3 fL 6.2-12.0 [facility] Work Phone: [phone] Determination of erythrocyte mean corpuscular volume (MCV)on 07-26-2021 MCV (RBC) [Entitic vol] 94.8 fL 81-99 [facility] Work Phone: [phone] Hematocrit Auto (Bld) [Volum e fraction]on 07-26-2021 Hematocrit (Bld) [Volume fraction] 36.8 % 37-47 [facility] Work Phone: [phone] Laboratory - Chemistry and C hemistry - challengeon 07-26-2021 ALP [Catalytic activity/Vol] 71 U/L 45-117 [facility] Work Phone: [phone] ALT [Catalytic activity/Vol] 21 U/L 13-56 [facility] Work Phone: [phone] CO2 [Moles/Vol] 26.0 mmol/L 21.0-32.0 [facility] Work Phone: Globulin (S) [Mass/Vol] 4.2 g/dL 2.2-4.2 [facility] Work Phone: Urea nitrogen/Creatinine [Mass ratio] 12.2 mg/mg 10-20 [facility] Work Phone: Laboratory - Hematology and Cell countson 07-26-2021 Erythrocyte distribution width (RBC) [Entitic vol] 47.2 fL 35.1-43.9 [facility] Work Phone: Erythrocyte distribution width (RBC) [Ratio] 13.7 % 11.6-14.6 [facility] Work Phone: Immature granulocytes/100 WBC (Bld) 0.500 % 0.0-0.9 [facility] Work Phone: Comment on above: IG% - Immature Granu locytes (promyelocytes, myelocytes and metamyelocytes) > 1% indicates that a LEFT SHIFT is Present. MCH (RBC) [Entitic mass] 30.2 pg 27.0-32.0 [facility] Work Phone: Nucleated RBC/100 WBC (Bld) [Ratio] 0 % 0-5 [facility] Work Phone: MCHC Auto (RBC) [Mass/Vol]on 07-26-2021 MCHC (RBC) [Mass/Vol] 31.8 g/dL 32-36 [facility] Work Phone: No Panel Informationon 07-26 Estimated GFR (MDRD) Amer 113 mL/min >60 [facility] Work Phone: Comment on above: GFR Calc Estimated GFR (MDRD) Non-Af Amer 93 mL/min >60 [facility] Work Phone: Comment on above: Non- GFR Calc Platelets bldon 07-26-2021 Platelets (Bld) [#/Vol] 310 10*3/uL 150-450 [facility] Work Phone: Serum or plasma albumin sancho urement (mass/volume)on 07-26-2021 Albumin [Mass/Vol] 3.6 g/dL 3.2-5.0 [facility] Work Phone: Serum or plasma albumin/glob ulin mass ratioon 07-26-2021 Albumin/Globulin [Mass ratio] 0.9 {ratio} 0.9-2.4 [facility] Work Phone: Serum or plasma calcium sancho urement (mass/volume)on 07-26-2021 Calcium [Mass/Vol] 9.8 mg/dL 8.5-10.1 [facility] Work Phone: Serum or plasma creatinine m easurement (mass/volume)on 07-26-2021 Creatinine [Mass/Vol] 0.74 mg/dL 0.55-1.02 [facility] Work Phone: Comment on above: The validity of the calculated GFR & GFRAA in patients over 70 years has not been determined. Clinical correlation is essential. Serum or plasma urea nitroge n measurement (mass/volume)on 07-26-2021 Urea nitrogen [Mass/Vol] 9 mg/dL 7-18 [facility] Work Phone: Thin prep Papanicolaou smear with manual screeningon 07-26-2021 Thin prep Papanicolaou smear with manual screening 14 U/L 15-37 [facility] Work Phone: Thin prep Papanicolaou smear with manual screening 8 5-15 [facility] Work Phone: Hepatitis C RNA by PCRon Hepatitis C RNA by PCR SEE BELOW Normal [facility] Comment on above: Result Comment: Hepa titis C RNA SEE BELOW IU/mLHCV RNA not detected by PCR.Reference Range: Negative for HCV RNAThe Linear Range of this assay is 15 IU/mL to 100,000,000 IU/mL.Performing Laboratory:[facility] [place] [address] Performed By: #### S URG ####[place] [address] Syphilis IgG with Confon Syphilis IgG with Conf SEE BELOW Normal [facility] Comment on above: Result Comment: Syph [...] Not IndicatedSyphilis Interpretati SEE BELOWTest Not IndicatedPerforming Laboratory:[facility] [place] [address] Performed By: #### S URG ####[address] [address] HIV Screenon 07-05-2017 HIV Screen Negative Normal Nonreactive [facility] Comment on above: Performed By: #### S URG ####[address] [address] Hep. B Surface Agon 07-05-20 Hep.B Surface Ag Negative Normal Negative [facility] Comment on above: Performed By: #### S URG ####[address] [address] Hepatitis C Antibodyon 07-05 Hepatitis C Ab Negative Normal Negative [facility] Comment on above: Performed By: #### S URG ####[address] [address] Ferritinon 07-04-2017 Ferritin 8.30 ng/mL Normal 8.00-252.00 [facility] Comment on above: Performed By: #### S URG ####[address] [address] Iron Binding Cap.on 07-04-20 17 Iron Binding Cap. 356 ug/dL Normal 250-450 [facility] Comment on above: Performed By: #### S URG ####[address] [address] Iron Serumon 07-04-2017 Iron Serum 44 ug/dL Low 50-170 [facility] Comment on above: Performed By: #### S URG ####[place] [address] Basic Panelon 04-27-2017 Creatinine 0.98 mg/dL High 0.51-0.95 [facility] Comment on above: Performed By: #### S URG ####[place] [address] Anion gap 11 mmol/L Normal 8-16 [facility] Comment on above: Performed By: #### S URG ####[address] [address] CO2 26 mmol/L Normal 21-32 [facility] Comment on above: Performed By: #### S URG ####[address] [address] Glucose mass conc 99 mg/dL Normal 70-99 [facility] Comment on above: Performed By: #### S URG ####[place] [address] Urea nitrogen 12 mg/dL Normal 7-18 [facility] Comment on above: Performed By: #### S URG ####[place] [address] Calcium 9.1 mg/dL Normal 8.5-10.1 [facility] Comment on above: Performed By: #### S URG ####[address] [address] Chloride 103 mmol/L Normal 98-107 [facility] Comment on above: Performed By: #### S URG ####[address] [address] Potassium molar conc 4.0 mmol/L Normal 3.5-5.1 [facility] Comment on above: Performed By: #### S URG ####[place] [address] Sodium 136 mmol/L Normal 136-145 [facility] Comment on above: Performed By: #### S URG ####[address] [address] Ferritinon 04-27-2017 Ferritin 9.90 ng/mL Normal 8.00-252.00 [facility] Comment on above: Performed By: #### S URG ####[address] [address] Hemogram/Diffon 04-27-2017 Basophils Auto #/vol (Bld) 0.06 thou/cmm Normal 0.01-0.08 [facility] Comment on above: Performed By: #### C BCD1 ####[address] [address] Basophils/100 WBC Auto (Bld) 1.0 % Normal [facility] Comment on above: Performed By: #### C BCD1 ####[address] [address] Eosinophils 0.22 thou/cmm Normal 0.00-0.31 [facility] Comment on above: Performed By: #### C BCD1 ####[address] [address] Eosinophils/100 leukocytes 3.7 % Normal [facility] Comment on above: Performed By: #### C BCD1 ####[address] [address] Erythrocyte distribution width Auto Ratio (RBC) 14.3 % Normal 11.7-14.4 [facility] Comment on above: Performed By: #### C BCD1 ####[address] [address] Erythrocytes (RBC) 3.88 mil/cmm Low 3.93-5.22 [facility] Comment on above: Performed By: #### C BCD1 ####[address] [address] Hematocrit (HCT) 35.6 % Normal 34.1-44.9 [facility] Comment on above: Performed By: #### C BCD1 ####[address] [address] Hemoglobin mass conc (Bld) 11.7 g/dL Normal 11.2-15.7 [facility] Comment on above: Performed By: #### C BCD1 ####[place] [address] Immature Grans 0.20 % Normal [facility] Comment on above: Performed By: #### C BCD1 ####[place] [address] Immature Grans # 0.01 thou/cmm Normal 0.00-0.05 [facility] Comment on above: Performed By: #### C BCD1 ####[place] [address] Lymphocytes 1.94 thou/cmm Normal 1.18-3.74 [facility] Comment on above: Performed By: #### C BCD1 ####[place] [address] Lymphocytes/100 leukocytes 32.3 % Normal [facility] Comment on above: Performed By: #### C BCD1 ####[place] [address] MCH 30.2 pg Normal 25.6-32.2 [facility] Comment on above: Performed By: #### C BCD1 ####[place] [address] MCHC mass conc (RBC) 32.9 % Normal 31.6-34.8 [facility] Comment on above: Performed By: #### C BCD1 ####[place] [address] MCV 91.8 fL Normal 79.4-94.8 [facility] Comment on above: Performed By: #### C BCD1 ####[place] [address] Monocytes 0.38 thou/cmm Normal 0.27-0.70 [facility] Comment on above: Performed By: #### C BCD1 ####[place] [address] Monocytes/100 leukocytes 6.3 % Normal [facility] Comment on above: Performed By: #### C BCD1 ####[place] [address] Platelet mean volume (PMV) 10.1 fL Normal 9.4-12.3 [facility] Comment on above: Performed By: #### C BCD1 ####[facility] [place], [place] [address] Platelets 313 thou/cmm Normal 182-369 [facility] Comment on above: Performed By: #### C BCD1 ####[facility] [place], [place] [address] RDW SD 48.3 fl High 36.4-46.3 [facility] Comment on above: Performed By: #### C BCD1 ####[address] [address] Seg Neutrophil 56.5 % Normal [facility] Comment on above: Performed By: #### C BCD1 ####[place] [address] Seg. Neut.# 3.40 thou/cmm Normal 1.56-6.13 [facility] Comment on above: Performed By: #### C BCD1 ####[address] [address] WBC (Leukocytes) 6.01 thou/cmm Normal 3.98-10.04 [facility] Comment on above: Performed By: #### C BCD1 ####[address] [address] Iron Binding Cap.on 04-27-20 17 Iron Binding Cap. 388 ug/dL Normal 250-450 [facility] Comment on above: Performed By: #### I BC ####[address] [address] Iron Serumon 04-27-2017 Iron Serum 33 ug/dL Low 50-170 [facility] Comment on above: Performed By: #### I JIMMY ####[place] [id number] HPV High Riskon 04-19-2017 HPV High Risk SEE BELOW Normal [facility] Comment on above: Result Comment: HPV MRNA E6/E7 Not Detected NOT DETECTEDThis test was performed using the APTIMA(R) HPV Assay([employer]This assay detects E6/E7 viral messenger RNA (mRNA)from 14 high-risk HPV types (16,18,31,33,35,39,45,51,52,56,58,59,66,68).For additional information please refer to:http://education.Asktourism/faq/PYM258f2(This link is being provided for informational/educational purposes only.)Test Performed by Cuil[facility],[address] [place] [id number] Brunson M.D., Ph.D., Director of [phone], [facility] [id number] Performed By: #### H PVRQ ####[place] [address] HPV High Riskon 04-17-2017 Cytology Normal [facility] Comment on above: Performed By: #### H PVRQ ####[place] [address] [place] Venipunctureon 03-18 [place] Venipuncture COMPLETED Normal [facility] Comment on above: Performed By: #### M VENP ####[place] [address] TSH, 3rd generationon 2016 TSH, 3rd generation 2.080 uIU/mL Normal 0.358-3.740 [facility] Comment on above: Performed By: #### T SH3 ####[place] [address] Pap,Cyto Gynon 04-13-2017 Pap,Cyto [place] Test performed at [place] [address]NAME: ALMA ADEN [id number] REQUESTING: SLAVA BEYER D.O.SPECIMEN: TP CERVICAL/ENDOCERVICAL HPV REGARDLESSRelevant History:LMP: 03/28/2017SPECIMEN ADEQUACYSATISFACTORY FOR EVALUATION. ENDOCERVICAL/TRANSFORMATION ZONECOMPONENTS PRESENT.INTERPRETATION/RESU LTNEGATIVE FOR INTRAEPITHELIAL LESION OR MALIGNANCY.ANCILLARY TESTINGHPV mRNA E6/E7 - Not Detected for HIGH RISK HPV. Please see additionalreport from [employer].Electronically signed: 04/19/2017Screened by: LEAH ALARCON([facility])Signed Out by: LEAH ALARCON([facility])The Pap test serves as a screening tool for early detection of cervical cancer. The Pap test does not represent a final diagnostic test forcervical cancer. Furthermore, the Pap test was not designed to screenfor other malignancies (endometrial, ovarian cancer, etc....). Falsenegatives and false positives have occurred. If clinically indicated,further patient evaluation is recommended.Printed on: April 19, 2017 Page 1 of 1 Normal [facility] Comment on above: Performed By: #### C OP ####[place] [address] OPERATIVE REPORTon OPERATIVE REPORT [facility] Operative ReportSURGEON: GT Alston RENEA MMRN: [id number] ACCTNUM: [id number] OF SURGERY: 02/06/2017DATE OF : 1980 SEX/AGE: F/36PATIENT TYPE: [facility] SVC: LOCATION:ADMIT DATE: 02/06/2017DATE OF SURGERY: 02/06/2017SURGEON: CAROL [...] recovery in stable condition. [address] [place] [address] Operative ReportPATIENT NAME: ALMA ADEN [facility]#: [id number] ACCTNUM: [id number] her findings with significant gastritis with a small gastric ulcer, I would increase her proton pump inhibitortherapy twice daily and also add Carafate therapy. I would like to re-scope her in 6 to 8 weeks time to reassessfor active peptic ulcer disease as this is a contraindication to bariatric surgery. Signed: Nando ALSTON MD 02/15/2017 10:05 EDTCD:modlD: 02/06/2017 12:37:52T: 02/06/2017 23:44:54Job #: [id number] Page 2 of 1 Normal [facility] OPERATIVE REPORT PDF Normal [facility] Surgical Tissue Examon 02-06 Surgical Tissue Exam Test performed at [place] [address]NAME: ALMA ADEN [id number] REQUESTING: TONY ALVAREZ MDFINDEENA DIAGNOSIS:A) GASTRIC ANTRUM, BIOPSIES - MILD CHRONIC [...] 15:58PRINTED: 02/07/2017 Page 1 of 1 Normal [facility] Comment on above: Performed By: #### S URG ####[place] [address] Urine HCG, Qual.on 7 HCG.beta subunit ( test) Ql (U) Negative Normal Negative [facility] Comment on above: Performed By: #### H CGUR ####[address] [address] Specific [place], [place] 1.016 Normal 1.005-1.030 [facility] Comment on above: Performed By: #### H CGUR ####[place] [id number] Clostridium difficile detect ion by polymerase chain reaction C. difficile DNA TERESA+probe Ql (Unsp spec) [facility] Work Phone: EP Panel Gastrointestinal pathogens panel TERESA+probe (Stl) [facility] Work Phone: No Panel Information Enteric Bacteriology [facility] Work Phone: Vital Signs Date Time Vital Sign Value Performing Clinician Clement smith 01-07-2025 11:26-0400 Body height 172.[address] Wyatt Marcelo MD Work Phone: [facility] 01-07-2025 11:26-0400 Body mass index (BMI) [Ratio] 58.8 kg/m2 Dr. Wyatt Marcelo MD Work Phone: [facility] 01-07-2025 11:26-0400 Body weight 175.[address] Wyatt Marcelo MD Work Phone: [facility] 01-07-2025 11:26-0400 Diastolic blood pressure 86 mm[Hg] Dr. Wyatt Marcelo MD Work Phone: [facility] 01-07-2025 11:26-0400 Heart rate 80 /min Dr. Wyatt Marcelo MD Work Phone: [facility] 01-07-2025 11:26-0400 SaO2% (BldA) [Mass fraction] 97 % Dr. Wyatt Marcelo MD Work Phone: [facility] 01-07-2025 11:26-0400 Systolic blood pressure 139 mm[Hg] Dr. Wyatt Marcelo MD Work Phone: [facility] 10-23-2024 16:47-0400 Body height 172.[address] Wyatt Marcelo MD Work Phone: [facility] 10-23-2024 16:47-0400 Body temperature 96.1 [degF] Dr. Wyatt Marcelo MD Work Phone: [facility] 10-23-2024 16:47-0400 Diastolic blood pressure 78 mm[Hg] Dr. Wyatt Marcelo MD Work Phone: [facility] 10-23-2024 16:47-0400 Heart rate 81 /min Dr. Wyatt Marcelo MD Work Phone: [facility] 10-23-2024 16:47-0400 Respiratory rate 16 /min Dr. Wyatt Marcelo MD Work Phone: [facility] 10-23-2024 16:47-0400 SaO2% (BldA) [Mass fraction] 95 % Dr. Wyatt Marcelo MD Work Phone: [facility] 10-23-2024 16:47-0400 Systolic blood pressure 136 mm[Hg] Dr. Wyatt Marcelo MD Work Phone: [facility] 08-31-2024 12:26-0500 Body temperature 98.3 [degF] Dr. Wyatt Marcelo MD Work Phone: [facility] 08-31-2024 12:26-0500 Diastolic blood pressure 70 mm[Hg] Dr. Wyatt Marcelo MD Work Phone: [facility] 08-31-2024 12:26-0500 Heart rate 88 /min Dr. Wyatt Marcelo MD Work Phone: [facility] 08-31-2024 12:26-0500 Respiratory rate 12 /min Dr. Wyatt Marcelo MD Work Phone: [facility] 08-31-2024 12:26-0500 SaO2% (BldA) [Mass fraction] 98 % Dr. Wyatt Marcelo MD Work Phone: [facility] 08-31-2024 12:26-0500 Systolic blood pressure 118 mm[Hg] Dr. Wyatt Marcelo MD Work Phone: [facility] 08-31-2024 11:33-0500 Body height 172.[address] Wyatt Marcelo MD Work Phone: [facility] 03-28-2024 15:39-0400 Body height 172.[address] Wyatt Marcelo Work Phone: [facility] 10-12-2023 15:39-0400 Body mass index (BMI) [Ratio] 57.3 kg/m2 Dr. Wyatt Marcelo Work Phone: [facility] 10-12-2023 15:39-0400 Body temperature 97.8 [degF] Dr. Wyatt Marcelo Work Phone: [facility] 10-12-2023 15:39-0400 Body weight [address] Wyatt Marcelo Work Phone: [facility] 10-12-2023 15:39-0400 Respiratory rate 17 /min Dr. Wyatt Marcelo Work Phone: [facility] 10-12-2023 15:39-0400 SaO2% (BldA) [Mass fraction] 97 % Dr. Wyatt Marcelo Work Phone: [facility] 10-03-2023 08:32-0400 Body height 172.[address] Wyatt Marcelo Work Phone: [facility] 10-03-2023 08:32-0400 Body mass index (BMI) [Ratio] 57.4 kg/m2 Dr. Wyatt Marcelo Work Phone: [facility] 10-03-2023 08:32-0400 Body temperature 97.3 [degF] Dr. Wyatt Marcelo Work Phone: [facility] 10-03-2023 08:32-0400 Body weight 171.[address] Wyatt Marcelo Work Phone: [facility] 10-03-2023 08:32-0400 Diastolic blood pressure 90 mm[Hg] Dr. Wyatt Marcelo Work Phone: [facility] 10-03-2023 08:32-0400 Heart rate 74 /min Dr. Wyatt Marcelo Work Phone: [facility] 10-03-2023 08:32-0400 Respiratory rate 16 /min Dr. Wyatt Marcelo Work Phone: [facility] 10-03-2023 08:32-0400 SaO2% (BldA) [Mass fraction] 99 % Dr. Wyatt Marcelo Work Phone: [facility] 10-03-2023 08:32-0400 Systolic blood pressure 128 mm[Hg] Dr. Wyatt Marcelo Work Phone: [facility] 06-11-2023 10:46-0500 Diastolic blood pressure 79 mm[Hg] Dr. Wyatt Marcelo Work Phone: [facility] 06-11-2023 10:46-0500 Heart rate 80 /min Dr. Wyatt Marcelo Work Phone: [facility] 06-11-2023 10:46-0500 Respiratory rate 18 /min Dr. Wyatt Marcelo Work Phone: [facility] 06-11-2023 10:46-0500 SaO2% (BldA) [Mass fraction] 99 % Dr. Wyatt Marcelo Work Phone: [facility] 06-11-2023 10:46-0500 Systolic blood pressure 139 mm[Hg] Dr. Wyatt Marcelo Work Phone: [facility] 06-11-2023 07:45-0500 Body height 172.[address] Wyatt Marcelo Work Phone: [facility] 06-11-2023 07:45-0500 Body mass index (BMI) [Ratio] 56.2 kg/m2 Dr. Wyatt Marcelo Work Phone: [facility] 06-11-2023 07:45-0500 Body temperature 96.8 [degF] Dr. Wyatt Marcelo Work Phone: [facility] 06-11-2023 07:45-0500 Body weight 167.[address] Wyatt Marcelo Work Phone: [facility] 05-10-2023 16:30-0400 Body temperature 98.4 [degF] Dr. Wyatt Marcelo Work Phone: [facility] 05-10-2023 16:30-0400 Diastolic blood pressure 82 mm[Hg] Dr. Wyatt Marcelo Work Phone: [facility] 05-10-2023 16:30-0400 Heart rate 76 /min Dr. Wyatt Marcelo Work Phone: [facility] 05-10-2023 16:30-0400 Respiratory rate 18 /min Dr. Wyatt Marcelo Work Phone: [facility] 05-10-2023 16:30-0400 SaO2% (BldA) [Mass fraction] 97 % Dr. Wyatt Marcelo Work Phone: [facility] 05-10-2023 16:30-0400 Systolic blood pressure 126 mm[Hg] Dr. Wyatt Marcelo Work Phone: [facility] 04-26-2023 10:20-0400 Body temperature 97.4 [degF] Dr. Wyatt Marcelo Work Phone: [facility] 04-26-2023 10:20-0400 Diastolic blood pressure 80 mm[Hg] Dr. Wyatt Marcelo Work Phone: [facility] 04-26-2023 10:20-0400 Heart rate 75 /min Dr. Wyatt Marcelo Work Phone: [facility] 04-26-2023 10:20-0400 Respiratory rate 18 /min Dr. Wyatt Marcelo Work Phone: [facility] 04-26-2023 10:20-0400 SaO2% (BldA) [Mass fraction] 97 % Dr. Wyatt Marcelo Work Phone: [facility] 04-26-2023 10:20-0400 Systolic blood pressure 116 mm[Hg] Dr. Wyatt Marcelo Work Phone: [facility] 03-10-2023 16:05-0400 Body height 172.[address] Wyatt Marcelo Work Phone: [facility] 03-10-2023 16:05-0400 Body temperature 97.7 [degF] Dr. Wyatt Marcelo Work Phone: [facility] [facility] 03-10-2023 16:05-0400 Diastolic blood pressure 100 mm[Hg] Dr. Wyatt Marcelo Work Phone: [facility] 03-10-2023 16:05-0400 Heart rate 72 /min Dr. Wyatt Marcelo Work Phone: [facility] 03-10-2023 16:05-0400 Respiratory rate 16 /min Dr. Wyatt Marcelo Work Phone: [facility] 03-10-2023 16:05-0400 SaO2% (BldA) [Mass fraction] 96 % Dr. Wyatt Marcelo Work Phone: [facility] 03-10-2023 16:05-0400 Systolic blood pressure 158 mm[Hg] Dr. Wyatt Marcelo Work Phone: [facility] 01-09-2023 07:39-0400 Diastolic blood pressure 99 mm[Hg] Dr. Wyatt Marcelo Work Phone: [facility] 01-09-2023 07:39-0400 Heart rate 72 /min Dr. Wyatt Marcelo Work Phone: [facility] 01-09-2023 07:39-0400 Systolic blood pressure 146 mm[Hg] Dr. Wyatt Marcelo Work Phone: [facility] 01-09-2023 05:44-0400 Body height 172.[address] Wyatt Marcelo Work Phone: [facility] 01-09-2023 05:44-0400 Body mass index (BMI) [Ratio] 55.2 kg/m2 Dr. Wyatt Marcelo Work Phone: [facility] 01-09-2023 05:44-0400 Body temperature 97.6 [degF] Dr. Wyatt Marcelo Work Phone: [facility] 01-09-2023 05:44-0400 Body weight 164.[address] Wyatt Marcelo Work Phone: [facility] 01-09-2023 05:44-0400 Respiratory rate 18 /min Dr. Wyatt Marcelo Work Phone: [facility] 01-09-2023 05:44-0400 SaO2% (BldA) [Mass fraction] 96 % Dr. Wyatt Marcelo Work Phone: [facility] 12-05-2022 08:19-0400 Body height 172.[address] Wyatt Marcelo Work Phone: [facility] 12-05-2022 08:19-0400 Body mass index (BMI) [Ratio] 54.4 kg/m2 Dr. Wyatt Marcelo Work Phone: [facility] 12-05-2022 08:19-0400 Body temperature 97.2 [degF] Dr. Wyatt Marcelo Work Phone: [facility] 12-05-2022 08:19-0400 Body weight 162.[address] Wyatt Marcelo Work Phone: [facility] 12-05-2022 08:19-0400 Diastolic blood pressure 80 mm[Hg] Dr. Wyatt Marcelo Work Phone: [facility] 12-05-2022 08:19-0400 Heart rate 87 /min Dr. Wyatt Marcelo Work Phone: [facility] 12-05-2022 08:19-0400 Respiratory rate 12 /min Dr. Waytt Marcelo Work Phone: [facility] 12-05-2022 08:19-0400 SaO2% (BldA) [Mass fraction] 97 % Dr. Wyatt Marcelo Work Phone: [facility] 12-05-2022 08:19-0400 Systolic blood pressure 130 mm[Hg] Dr. Wyatt Marcelo Work Phone: [facility] 11-23-2022 13:44-0400 Body height 172.[address] Wyatt Marcelo Work Phone: [facility] 11-23-2022 13:44-0400 Body mass index (BMI) [Ratio] 54.4 kg/m2 Dr. Wyatt Marcelo Work Phone: [facility] 11-23-2022 13:44-0400 Body temperature 97.2 [degF] Dr. Wyatt Marcelo Work Phone: [facility] 11-23-2022 13:44-0400 Body weight 162.[address] Wyatt Marcelo Work Phone: [facility] 11-23-2022 13:44-0400 Diastolic blood pressure 83 mm[Hg] Dr. Wyatt Marcelo Work Phone: [facility] 11-23-2022 13:44-0400 Heart rate 77 /min Dr. Wyatt Marcelo Work Phone: [facility] 11-23-2022 13:44-0400 Respiratory rate 19 /min Dr. Wyatt Marcelo Work Phone: [facility] 11-23-2022 13:44-0400 SaO2% (BldA) [Mass fraction] 96 % Dr. Wyatt Marcelo Work Phone: [facility] 11-23-2022 13:44-0400 Systolic blood pressure 122 mm[Hg] Dr. Wyatt Marcelo Work Phone: [facility] 10-19-2022 13:59-0400 Body height 172.[address] Wyatt Marcelo Work Phone: [facility] 10-19-2022 13:59-0400 Body mass index (BMI) [Ratio] 54.1 kg/m2 Dr. Wyatt Marcelo Work Phone: [facility] 10-19-2022 13:59-0400 Body weight 161.[address] Wyatt Marcelo Work Phone: [facility] 10-19-2022 13:59-0400 Diastolic blood pressure 85 mm[Hg] Dr. Wyatt Marcelo Work Phone: [facility] 10-19-2022 13:59-0400 Systolic blood pressure 142 mm[Hg] Dr. Wyatt Marcelo Work Phone: [facility] 09-29-2022 08:59-0400 Body height 172.[address] Wyatt Marcelo Work Phone: [facility] 09-29-2022 08:59-0400 Body temperature 96.2 [degF] Dr. Wyatt Marcelo Work Phone: [facility] 09-29-2022 08:59-0400 Diastolic blood pressure 90 mm[Hg] Dr. Wyatt Marcelo Work Phone: [facility] 09-29-2022 08:59-0400 Heart rate 70 /min Dr. Wyatt Marcelo Work Phone: [facility] 09-29-2022 08:59-0400 Respiratory rate 16 /min Dr. Wyatt Marcelo Work Phone: [facility] 09-29-2022 08:59-0400 SaO2% (BldA) [Mass fraction] 98 % Dr. Wyatt Marcelo Work Phone: [facility] 09-29-2022 08:59-0400 Systolic blood pressure 128 mm[Hg] Dr. Wyatt Marcelo Work Phone: [facility] 09-01-2022 08:52-0500 Body temperature 96.6 [degF] Dr. Wyatt Marcelo Work Phone: [facility] 09-01-2022 08:52-0500 Diastolic blood pressure 100 mm[Hg] Dr. Wyatt Marcelo Work Phone: [facility] 09-01-2022 08:52-0500 Heart rate 78 /min Dr. Wyatt Marcelo Work Phone: [facility] 09-01-2022 08:52-0500 Respiratory rate 18 /min Dr. Wyatt Marcelo Work Phone: [facility] 09-01-2022 08:52-0500 SaO2% (BldA) [Mass fraction] 96 % Dr. Wyatt Marcelo Work Phone: [facility] 09-01-2022 08:52-0500 Systolic blood pressure 146 mm[Hg] Dr. Wyatt Marcelo Work Phone: [facility] 08-15-2022 11:25-0500 Body mass index (BMI) [Ratio] 57 kg/m2 Dr. Wyatt Marcelo Work Phone: [facility] 08-15-2022 11:25-0500 Body temperature 96.7 [degF] Dr. Wyatt Marcelo Work Phone: [facility] 08-15-2022 11:25-0500 Body weight 170.[address] Wyatt Marcelo Work Phone: [facility] 08-15-2022 11:25-0500 Diastolic blood pressure 84 mm[Hg] Dr. Wyatt Marcelo Work Phone: [facility] 08-15-2022 11:25-0500 Heart rate 78 /min Dr. Wyatt Marcelo Work Phone: [facility] 08-15-2022 11:25-0500 Respiratory rate 18 /min Dr. Wyatt Marcelo Work Phone: [facility] 08-15-2022 11:25-0500 SaO2% (BldA) [Mass fraction] 96 % Dr. Wyatt Marcelo Work Phone: [facility] 08-15-2022 11:25-0500 Systolic blood pressure 117 mm[Hg] Dr. Wyatt Marcelo Work Phone: [facility] 07-01-2022 14:57-0500 Diastolic blood pressure 82 mm[Hg] Dr. Wyatt Marcelo Work Phone: [facility] 07-01-2022 14:57-0500 Respiratory rate 12 /min Dr. Wyatt Marcelo Work Phone: [facility] 07-01-2022 14:57-0500 Systolic blood pressure 144 mm[Hg] Dr. Wyatt Marcelo Work Phone: [facility] 05-06-2022 11:09-0400 Body height 172.[address] Wyatt Marcelo Work Phone: [facility] 05-06-2022 11:09-0400 Body temperature 98 [degF] Dr. Wyatt Marcelo Work Phone: [facility] 05-06-2022 11:09-0400 Diastolic blood pressure 88 mm[Hg] Dr. Wyatt Marcelo Work Phone: [facility] 05-06-2022 11:09-0400 Heart rate 66 /min Dr. Wyatt Marcelo Work Phone: [facility] 05-06-2022 11:09-0400 SaO2% (BldA) [Mass fraction] 98 % Dr. Wyatt Marcelo Work Phone: [facility] 05-06-2022 11:09-0400 Systolic blood pressure 124 mm[Hg] Dr. Wyatt Marcelo Work Phone: [facility] 03-07-2022 13:25-0400 Heart rate 84 /min Dr. Wyatt Marcelo Work Phone: [facility] Work Phone: 03-07-2022 13:25-0400 Respiratory rate 16 /min Dr. Wyatt Marcelo Work Phone: [facility] Work Phone: 03-07-2022 13:25-0400 SaO2% (BldA) [Mass fraction] 98 % Dr. Wyatt Marcelo Work Phone: [facility] Work Phone: 03-07-2022 12:10-0400 Body height 172.[address] Wyatt Marcelo Work Phone: [facility] Work Phone: 03-07-2022 12:10-0400 Body mass index (BMI) [Ratio] 55.3 kg/m2 Dr. Wyatt Marcelo Work Phone: [facility] Work Phone: 03-07-2022 12:10-0400 Body temperature 97.9 [degF] Dr. Wyatt Marcelo Work Phone: [facility] Work Phone: 03-07-2022 12:10-0400 Body weight [address] Wyatt Marcelo Work Phone: [facility] Work Phone: 03-07-2022 12:10-0400 Diastolic blood pressure 72 mm[Hg] Dr. Wyatt Marcelo Work Phone: [facility] Work Phone: 03-07-2022 12:10-0400 Systolic blood pressure 139 mm[Hg] Dr. Wyatt Marcelo Work Phone: [facility] Work Phone: 02-10-2022 07:19-0400 Body temperature 97.5 [degF] Dr. Wyatt Marcelo Work Phone: [facility] Work Phone: 02-10-2022 07:19-0400 Diastolic blood pressure 90 mm[Hg] Dr. Wyatt Marcelo Work Phone: [facility] Work Phone: 02-10-2022 07:19-0400 Heart rate 89 /min Dr. Wyatt Marcelo Work Phone: [facility] Work Phone: 02-10-2022 07:19-0400 Respiratory rate 14 /min Dr. Wyatt Marcelo Work Phone: [facility] Work Phone: 02-10-2022 07:19-0400 SaO2% (BldA) [Mass fraction] 98 % Dr. Wyatt Marcelo Work Phone: [facility] Work Phone: 02-10-2022 07:19-0400 Systolic blood pressure 146 mm[Hg] Dr. Wyatt Marcelo Work Phone: [facility] Work Phone: 11-22-2021 08:58-0400 Body height 172.[address] Wyatt Marcelo Work Phone: [facility] Work Phone: 11-22-2021 08:58-0400 Body mass index (BMI) [Ratio] 52.6 kg/m2 Dr. Wyatt Marcelo Work Phone: [facility] Work Phone: 11-22-2021 08:58-0400 Body temperature 97.1 [degF] Dr. Wyatt Marcelo Work Phone: [facility] Work Phone: 11-22-2021 08:58-0400 Body weight 156.[address] Wyatt Marcelo Work Phone: [facility] Work Phone: 11-22-2021 08:58-0400 Diastolic blood pressure 86 mm[Hg] Dr. Wyatt Marcelo Work Phone: [facility] Work Phone: 11-22-2021 08:58-0400 Heart rate 73 /min Dr. Wyatt Marcelo Work Phone: [facility] Work Phone: 11-22-2021 08:58-0400 Respiratory rate 14 /min Dr. Wyatt Marcelo Work Phone: [facility] Work Phone: 11-22-2021 08:58-0400 SaO2% (BldA) [Mass fraction] 98 % Dr. Wyatt Marcelo Work Phone: [facility] Work Phone: 11-22-2021 08:58-0400 Systolic blood pressure 134 mm[Hg] Dr. Wyatt Marcelo Work Phone: [facility] Work Phone: 10-08-2021 11:30-0400 Body mass index (BMI) [Ratio] 52.6 kg/m2 Dr. Wyatt Marcelo Work Phone: [facility] Work Phone: 10-08-2021 11:30-0400 Body temperature 97.4 [degF] Dr. Wyatt Marcelo Work Phone: [facility] Work Phone: 10-08-2021 11:30-0400 Body weight 156.[address] Wyatt Marcelo Work Phone: [facility] Work Phone: 10-08-2021 11:30-0400 Diastolic blood pressure 78 mm[Hg] Dr. Wyatt Marcelo Work Phone: [facility] Work Phone: 10-08-2021 11:30-0400 Heart rate 73 /min Dr. Wyatt Marcelo Work Phone: [facility] Work Phone: 10-08-2021 11:30-0400 Respiratory rate 14 /min Dr. Wyatt Marcelo Work Phone: [facility] Work Phone: 10-08-2021 11:30-0400 SaO2% (BldA) [Mass fraction] 97 % Dr. Wyatt Marcelo Work Phone: [facility] Work Phone: 10-08-2021 11:30-0400 Systolic blood pressure 126 mm[Hg] Dr. Wyatt Marcelo Work Phone: [facility] Work Phone: 10-08-2021 11:30-0400 Body height 172.[address] Wyatt Marcelo Work Phone: [facility] Work Phone: 10-08-2021 11:30-0400 Body mass index (BMI) [Ratio] 52.6 kg/m2 Dr. Wyatt Marcelo Work Phone: [facility] Work Phone: 10-08-2021 11:30-0400 Body temperature 97.4 [degF] Dr. Wyatt Marcelo Work Phone: [facility] Work Phone: 10-08-2021 11:30-0400 Body weight 156.[address] Wyatt Marcelo Work Phone: [facility] Work Phone: 10-08-2021 11:30-0400 Diastolic blood pressure 78 mm[Hg] Dr. Wyatt Marcelo Work Phone: [facility] Work Phone: 10-08-2021 11:30-0400 Heart rate 73 /min Dr. Wyatt Marcelo Work Phone: [facility] Work Phone: 10-08-2021 11:30-0400 Respiratory rate 14 /min Dr. Wyatt Marcelo Work Phone: [facility] Work Phone: 10-08-2021 11:30-0400 SaO2% (BldA) [Mass fraction] 97 % Dr. Wyatt Marcelo Work Phone: [facility] Work Phone: 10-08-2021 11:30-0400 Systolic blood pressure 126 mm[Hg] Dr. Wyatt Marcelo Work Phone: [facility] Work Phone: 08-19-2021 10:36-0500 Body mass index (BMI) [Ratio] 52.6 kg/m2 Dr. Wyatt Marcelo Work Phone: [facility] Work Phone: 08-19-2021 10:36-0500 Body temperature 97.2 [degF] Dr. Wyatt Marcelo Work Phone: [facility] Work Phone: 08-19-2021 10:36-0500 Body weight 156.[address] Wyatt Marcelo Work Phone: [facility] Work Phone: 08-19-2021 10:36-0500 Diastolic blood pressure 86 mm[Hg] Dr. Wyatt Marcelo Work Phone: [facility] Work Phone: 08-19-2021 10:36-0500 Heart rate 74 /min Dr. Wyatt Marcelo Work Phone: [facility] Work Phone: 08-19-2021 10:36-0500 Respiratory rate 18 /min Dr. Wyatt Marcelo Work Phone: [facility] Work Phone: 08-19-2021 10:36-0500 SaO2% (BldA) [Mass fraction] 99 % Dr. Wyatt Marcelo Work Phone: [facility] Work Phone: 08-19-2021 10:36-0500 Systolic blood pressure 124 mm[Hg] Dr. Wyatt Marcelo Work Phone: [facility] Work Phone: 07-28-2021 08:25-0500 Body mass index (BMI) [Ratio] 52.6 kg/m2 Dr. Wyatt Marcelo Work Phone: [facility] Work Phone: 07-28-2021 08:25-0500 Body temperature 98.6 [degF] Dr. Wyatt Marcelo Work Phone: [facility] Work Phone: 07-28-2021 08:25-0500 Body weight 156.[address] Wyatt Macrelo Work Phone: [facility] Work Phone: 07-28-2021 08:25-0500 Diastolic blood pressure 72 mm[Hg] Dr. Wyatt Marcelo Work Phone: [facility] Work Phone: 07-28-2021 08:25-0500 Heart rate 79 /min Dr. Wyatt Marcelo Work Phone: [facility] Work Phone: 07-28-2021 08:25-0500 Respiratory rate 14 /min Dr. Wyatt Marcelo Work Phone: [facility] Work Phone: 07-28-2021 08:25-0500 SaO2% (BldA) [Mass fraction] 97 % Dr. Wyatt Marcelo Work Phone: [facility] Work Phone: 07-28-2021 08:25-0500 Systolic blood pressure 124 mm[Hg] Dr. Wyatt Marcelo Work Phone: [facility] Work Phone: 07-01-2021 09:34-0500 Body mass index (BMI) [Ratio] 52.6 kg/m2 Dr. Wyatt Marcelo Work Phone: [facility] Work Phone: 07-01-2021 09:34-0500 Body temperature 98 [degF] Dr. Wyatt Marcelo Work Phone: [facility] Work Phone: 07-01-2021 09:34-0500 Body weight 156.[address] Wyatt Marcelo Work Phone: [facility] Work Phone: 07-01-2021 09:34-0500 Diastolic blood pressure 84 mm[Hg] Dr. Wyatt Marcelo Work Phone: [facility] Work Phone: 07-01-2021 09:34-0500 Heart rate 80 /min Dr. Wyatt Marcelo Work Phone: [facility] Work Phone: 07-01-2021 09:34-0500 Respiratory rate 18 /min Dr. Wyatt Marcelo Work Phone: [facility] Work Phone: 07-01-2021 09:34-0500 SaO2% (BldA) [Mass fraction] 98 % Dr. Wyatt Marcelo Work Phone: [facility] Work Phone: 07-01-2021 09:34-0500 Systolic blood pressure 138 mm[Hg] Dr. Wyatt Marcelo Work Phone: [facility] Work Phone: Encounters Encounter Date Encounter Type Care Provider Facility Start: 01-07-2025 End: 01-07-[address] Cali Lou MD -[facility] Work Phone: Start: 01-07-2025 End: 01-07-[address] Wyatt Marcelo MD Work Phone: [facility] Work Phone: Start: 12-13-2024 End: 12-13-2024 Patient encounter procedure Irma MINER -[facility] Work Phone: Start: 12-13-2024 End: 12-13-[address] Wyatt Marcelo MD Work Phone: [facility] Work Phone: Start: 11-07-2024 End: 11-07-[address] Wyatt Marcelo MD Work Phone: [facility] Work Phone: Start: 11-07-2024 End: 11-07-2024 Patient encounter procedure STEVEN BOLES MD -[facility], [facility] Start: 11-07-2024 End: 11-07-2024 ambulatory [place] [facility] Facility:[facility] Start: 10-23-2024 End: 10-23-[address] Wyatt Marcelo MD -[facility] Work Phone: Start: 10-23-2024 End: 10-23-2024 ambulatory Wyatt Hamzahmai Facility:[facility] Start: 10-10-2024 End: 10-10-[address] Wyatt Marcelo MD Work Phone: [facility] Work Phone: Start: 10-10-2024 End: 10-10-[address] Wyatt Marcelo MD -[facility], [facility] Start: 10-10-2024 End: 10-10-[facility] Start: 08-31-2024 End: 08-31-2024 Patient encounter procedure Corie STEPH[facility] Work Phone: Start: 08-31-2024 End: 08-31-2024 ambulatory [place] [facility] [facility] Facility:[facility] Start: 07-23-2024 End: 07-23-2024 Patient encounter procedure STEVEN BOLES MD -[facility], [facility] Start: 07-23-2024 End: 07-23-2024 [facility] Start: 07-11-2024 ambulatory Nimco Gonzalez Facility:[facility] Start: 07-11-2024 Registered Recurring Nimco Gonzalez PA -Physical Therapy Work Phone: Start: 06-25-2024 ambulatory Karl Lopez Facility:[facility] Start: 05-27-2024 End: 05-27-2024 ambulatory Nimco Gonzalez Facility:[facility] Start: 05-10-2024 End: 05-10-2024 ambulatory Nimco Gonzalez Facility:[facility] Start: 05-10-2024 End: 05-10-2024 ambulatory Nimco Gonzalez Facility:[facility] Start: 05-09-2024 End: 05-09-2024 ambulatory Nimco Gonzalez Facility:[facility] Start: 04-30-2024 End: 04-30-2024 ambulatory [facility] Facility:[facility] Start: 04-25-2024 Encounter for genera l adult medical examination without abnormal findings Wyatt Hooperulises [facility] Start: 04-25-2024 End: 04-25-2024 ambulatory Wyatt Marcelo Facility:[facility] Start: 04-25-2024 ambulatory Wyatt Marcelo Facili ty:[facility] Start: 04-25-2024 ambulatory [facility] Facility:[facility] Start: 04-02-2024 End: 04-02-2024 ambulatory [facility] Facility:[facility] Start: 04-01-2024 End: 04-01-2024 ambulatory [place] [facility]o Facility:[facility] Start: 03-20-2024 End: 03-20-2024 ambulatory [facility] Start: 02-13-2024 End: 02-13-2024 ambulatory Wyatt Marcelo Facility:[facility] Start: 02-06-2024 End: 02-06-2024 ambulatory Lilianarichelle Bangura Facility:[facility] Start: 01-18-2024 End: 01-18-2024 Emergency department patient visit Lucio Bell Facility:[facility] Start: 01-12-2024 End: 01-12-2024 ambulatory [facility] Facility:[facility] Start: 10-17-2023 End: 10-17-[address] Wyatt Marcelo Work Phone: [facility] Work Phone: Start: 10-17-2023 End: 10-17-[address] Wyatt Marcelo Work Phone: [facility], [facility] Start: 10-12-2023 End: 10-12-[address] Wyatt Marcelo Work Phone: [facility] Work Phone: Start: 10-12-2023 End: 10-12-[address] Wyatt Marcelo Work Phone: [facility] Work Phone: Start: 10-03-2023 End: 10-03-[address] Wyatt Marcelo Work Phone: [facility] Work Phone: Start: 09-08-2023 End: 09-08-[address] Wyatt Marcelo Work Phone: [facility] Work Phone: Start: 09-08-2023 End: 09-08-[address] Wyatt Marcelo Work Phone: [facility]-Radiology, [facility] Work Phone: Start: 08-17-2023 End: 08-17-[address] Wyatt Marcelo Work Phone: [facility]-Laboratory Work Phone: Start: 06-16-2023 End: 06-16-[address] Wyatt Marcelo Work Phone: [facility] Work Phone: Start: 06-16-2023 End: 06-16-[address] Wyatt Marcelo Work Phone: [facility]-Laboratory, [place] Start: 06-11-2023 End: 06-11-2023 Emergency department patient visit Dr. Wyatt Marcelo Work Phone: [facility]-Emergency Department Work Phone: Start: 05-10-[address] Wyatt Marcelo Work Phone: [facility] Start: 05-10-2023 End: 05-10-2023 Encounter for general adult medical examination without abnormal findings Dr. Wyatt Marcelo Work Phone: [facility] Start: 05-10-2023 End: 05-10-[address] Wyatt Marcelo Work Phone: [facility] Internal Medicine Work Phone: Start: 05-09-[address] Marta Marcelo Work Phone: [facility] Start: 04-26-2023 End: 04-26-[address] Wyatt Marcelo Work Phone: [facility] Work Phone: Start: 04-26-2023 End: 04-26-[address] Wyatt Marcelo Work Phone: [facility] Work Phone: Start: 03-22-2023 End: 03-22-[address] Wyatt Marcelo Work Phone: [facility] Work Phone: Start: 03-22-2023 End: 03-22-[address] Wyatt Marcelo Work Phone: [facility], [place] Start: 03-10-2023 End: 03-10-[address] Wyatt Marcelo Work Phone: [facility] Internal [facility] Work Phone: Start: 03-07-2023 End: 03-07-2023 Patient encounter procedure Dr. Wyatt Marcelo Work Phone: [facility], [place] Start: 02-15-2023 End: 02-15-[address] Wyatt Marcelo Work Phone: [facility] Work Phone: Start: 02-15-2023 End: 02-15-[address] Wyatt Marcelo Work Phone: [facility], [facility] Work Phone: Start: 02-14-2023 Non-patient / Non-visit Dr. Wyatt Marcelo Work Phone: [facility] Work Phone: Start: 02-03-2023 End: 02-03-[address] Wyatt Marcelo Work Phone: [facility] Work [facility] Start: 01-09-2023 End: 01-09-[address] Wyatt Marcelo Work Phone: [facility] Work Phone: Start: 01-09-2023 End: 01-09-[address] Wyatt Marcelo Work Phone: [facility] Work Phone: Start: 01-09-2023 End: 01-09-[address] [facility] Marcel[facility] Start: 01-03-2023 End: 01-03-[address] Wyatt Marcelo Work Phone: [facility] Work Phone: Start: 01-03-2023 End: 01-03-[address] Wyatt Marcelo Work Phone: [facility] Start: 12-30-2022 End: 12-30-[address] Wyatt Marcelo Work Phone: [facility] Start: 12-14-2022 End: 12-14-[address] Wyatt Marcelo Work Phone: [facility] Work Phone: Start: 12-14-2022 End: 12-14-[address] [facility] Marcel[facility] [place] Start: 12-05-2022 End: 12-05-[address] Wyatt Marcelo Work Phone: [facility] Start: 12-02-2022 End: 12-02-[address] Wyatt Marcelo Work Phone: [facility] Work Phone: Start: 12-02-2022 End: 12-02-[address] Wyatt Marcelo Work Phone: [facility] Start: 11-25-2022 End: 11-25-[address] Wyatt Marcelo Work Phone: [facility] Start: 11-23-2022 End: 11-23-[address] Wyatt Marcelo Work Phone: [facility] Work Phone: Start: 11-23-2022 End: 11-23-[address] Wyatt Marcel[facility] Start: 11-23-2022 End: 11-23-[address] Wyatt Marcelo Work Phone: [facility] Start: 11-22-2022 End: 11-22-[address] Wyatt Marcelo Work Phone: [facility] Work Phone: Start: 11-22-2022 End: 11-22-[address] Wyatt Marcel[facility] Start: 11-08-2022 End: 11-08-[address] Wyatt Marcelo Work Phone: [facility] Work Phone: Start: 11-08-2022 End: 11-08-[address] Wyatt Marcel[facility] Start: 11-01-2022 End: 11-01-[address] Wyatt Marcelo Work Phone: [facility] Start: 10-31-2022 End: 10-31-[address] Wyatt Marcelo Work Phone: [facility]-Outpatient Breast Imaging Start: 10-28-2022 End: 10-28-[address] Wyatt Marcelo Work Phone: [facility] Start: 10-19-2022 End: 10-19-[address] Wyatt Marcelo Work Phone: [facility] Start: 10-14-2022 End: 10-14-[address] Wyatt Marcelo Work Phone: [facility] Start: 10-14-2022 Non-patient / Non-visit Dr. Wyatt Marcelo Work Phone: [facility] Start: 10-13-2022 End: 10-13-[address] Wyatt Marcelo Work Phone: [facility] Work Phone: Start: 10-13-2022 End: 10-13-[address] Wyatt Marcelo Work Phone: [facility] Start: 09-30-2022 End: 09-30-[address] Waytt Marcelo Work Phone: [facility] Start: 09-29-[address] Marta Marcelo Work Phone: [facility] Start: 09-29-2022 End: 09-29-[address] Wyatt Marcelo Work Phone: [facility] Work Phone: Start: 09-29-2022 End: 09-29-[address] Wyatt Marcelo Work Phone: [facility] Start: 09-01-2022 End: 09-01-[address] Wyatt Marcelo Work Phone: [facility] Start: 09-01-2022 Non-patient / Non-visit Dr. Wyatt Marcelo Work Phone: [facility] Start: 08-15-2022 End: 08-15-[address] Wyatt Marcelo Work Phone: [facility]in[facility] Start: 08-04-2022 End: 08-04-[address] Wyatt Marcelo Work Phone: [facility] Work Phone: Start: 08-04-2022 End: 08-04-[address] Wyatt Marcelo Work Phone: [facility], [place] Start: 07-01-2022 End: 07-01-[address] Wyatt Marcelo Work Phone: [facility] Start: 06-24-2022 End: 06-24-[address] Wyatt Marcelo Work Phone: [facility], [place] Start: 06-13-[address] Marta Marcelo Work Phone: [facility] Start: 06-13-2022 End: 06-13-[address] Wyatt Marcelo Work Phone: [facility] Work Phone: Start: 06-13-2022 End: 06-13-[address] Wyatt Marcelo Work Phone: [facility], [place] Start: 05-06-2022 End: 05-06-2022 Encounter for general adult medical examination without abnormal findings Dr. Wyatt Marcelo Work Phone: [facility] Start: 05-06-2022 End: 05-06-[address] Wyatt Marcelo Work Phone: [facility] Start: 04-22-2022 End: 04-22-[address] Wyatt Marcelo Work Phone: [facility] Work Phone: Start: 04-22-2022 End: 04-22-[address] Wyatt Marcelo Work Phone: [facility], [place] Start: 03-22-2022 End: 03-22-[address] Wyatt Marcelo Work Phone: [facility] Work Phone: Start: 03-22-2022 End: 03-22-[address] Wyatt Marcelo Work Phone: [facility], [place] Start: 03-22-[address] Marta Marcelo Work Phone: [facility] Start: 03-07-2022 End: 03-07-[address] Wyatt Rodriguez Phone: [facility]-ED Referred Start: 03-07-2022 End: 03-07-2022 Emergency department patient [facility]att [facility] Start: 02-10-2022 End: 02-10-[address] Wyatt Marcelo Work Phone: [facility] Start: 01-11-2022 End: 01-11-[address] [facility]att [facility] [place] Start: 12-27-2021 End: 12-27-[address] Wyatt Rodriguez Phone: [facility], [place] Start: 11-22-2021 End: 11-22-[address] Wyatt Marcelo Work Phone: [facility] Start: 10-21-2021 End: 10-21-[address] Wyatt Rodriguez Phone: [facility], [place] Start: 10-08-2021 End: 10-08-[address] [facility] Start: 10-08-2021 End: 10-08-[address] Wyatt Rodriguez Phone: [facility] Start: 09-14-2021 End: 09-14-[address] Wyatt Rodriguez Phone: [facility], [place] Start: 09-13-2021 End: 09-13-[address] Wyatt Rodriguez Phone: [facility], [place] Start: 08-19-2021 End: 08-19-[address] Wyatt Marcelo Work Phone: [facility] Start: 07-28-2021 End: 07-28-[address] Wyatt Marcelo Work Phone: [facility] Start: 07-26-2021 End: 07-26-[address] Wyatt Marcelo Work Phone: [facility], [place] Start: 07-01-2021 End: 07-01-[address] Wyatt Marcelo Work Phone: [facility]-Pulmonary Medicine [facility] Start: 02-15-[address] Wyatt Marcelo Work Phone: [facility] Start: 07-04-2017 End: 07-05-2017 Ambulatory IMCA Facility:[facility] Start: 06-20-2017 Ambulatory IMCA Facility[facility] Start: 04-27-2017 End: 04-28-2017 Ambulatory IMCA [facility] Start: 04-14-[address] Luna y:[facility] Start: 04-13-2017 End: 04-14-2017 Ambulatory NO REFERRING Facility:[facility] Start: 04-03-2017 End: 04-04-2017 Ambulatory TONY ALVAREZ Facility:[facility] Start: 02-06-2017 End: 02-07-2017 Ambulatory TONY ALVAREZ Facility:[facility] Procedures Date Procedure Procedure Detail Performing Clinician Start: 10-12-2023 Plain chest X-ray Dr. Ulises Marcelo Work Phone: Start: 09-08-[address] Wyatt Marcelo Work Phone: Start: 02-15-2023 Ultrasonography of thyroid and parathyroid Dr. Wyatt Marcelo Work Phone: Start: 02-03-2023 X-ray of lumbosacral spine Dr. Wyatt Marcelo Work Phone: Start: 02-03-2023 Radiologic examinati on of knee Dr. Wyatt Marcelo Work Phone: Start: 11-22-2022 Radioisotope scan of parathyroid Dr. Wyatt Marcelo Work Phone: Start: 11-08-2022 US scan of thyroid Dr. Wyatt Marcelo Work Phone: Start: 10-31-2022 Screening mammography D sukhjinder Marcelo Work Phone: Start: 10-13-2022 Plain x-ray of hand Dr. Wyatt Marcelo Work Phone: Start: 10-13-2022 Plain x-ray of pelvi s and lower extremity Dr. Wyatt Marcelo Work Phone: Start: 06-24-2022 Plain chest X-ray Dr. Ulises Marcelo Work Phone: Start: 09-13-2021 Plain x-ray of hand Dr. Wyatt Marcelo Work Phone: Start: 09-13-2021 Radiologic examinati on of knee Dr. Wyatt Marcelo Work Phone: Start: 09-13-2021 X-ray of both feet Dr. Wyatt Marcelo Work Phone: Start: 09-13-2021 X-ray of lumbar spin e, two or three views Dr. 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 Wyatt Marcelo Work Phone: Clostridium difficil e detection Dr. Wyatt Marcelo Work Phone: Enteric Bacteriology Dr. Adam Marcelo Work Phone: [facility] Bacteriology Dr. Adam Marcelo Work Phone: H/O: hysterectomy History of tot al vaginal hysterectomy (TVH) Dr. Wyatt Marcelo Work Phone: Comment on above: Laparoscopic cholecy stectomy total vaginal hysterectomy bilateral salpingectomy Plan of Treatment Date Care Activity Detail Author Start: 01-16-2025 ambulatory Ambulatory Facility:[facility] Start: 05-10-2023 Patient referral [facility] Work Phone: Start: 04-26-2023 Evaluation of diagno stic study results [facility] Start: 09-29-2022 Patient referral [facility] Work Phone: Start: 03-07-2022 Hepatitis B surface antigen measurement [facility] Work Phone: Start: 03-07-2022 Hepatitis C antibody measurement [facility] Work Phone: 24 hour urine calciu m output measurement [facility] Cardiovascular stress testing [facility] Erythrocyte mean cor puscular volume determination [facility] Ferritin [Mass/volum e] in Serum or Plasma [facility] Hematocrit [Volume F raction] of Blood [facility] Hemoglobin [Mass/vol ume] in Blood [facility] Hemoglobin A1c/Hemog lobin.total in Blood [facility] Hepatitis B surface antigen measurement [facility] Work Phone: Hepatitis B virus rodas rface IgG Ab [Presence] in Serum [facility] Work Phone: Hepatitis C antibody measurement [facility] Work Phone: HIV 1+2 Ab+HIV1 p24 Ag [Presence] in Serum or Plasma by Immunoassay [facility] Work Phone: In-vitro immunologic test [facility] Work Phone: Iron [Mass/mass] in Unspecified specimen [facility] Iron and Iron bindin g capacity panel - Serum or Plasma [facility] Leukocytes [#/volume] in Blood [facility] Lipid 1996 panel - S rosita or Plasma [facility] Mean corpuscular hem oglobin concentration determination [facility] Mean corpuscular hem oglobin determination [facility] MG Breast - bilateral Screening [facility] Mycobacterium tuberc ulosis tuberculin stimulated gamma interferon [Presence] in Blood [facility] Work Phone: Parathyroid hormone measurement [facility] Patient Education [facility] Work Phone: Patient referral [facility] Work Phone: Platelets [#/volume] in Blood [facility] Red blood cell count [facility] Red cell distributio n width determination [facility] Thyroid stimulating hormone measurement [facility] Vitamin B12 measurement [facility] Vitamin D, 25-hydrox y measurement [facility] Vitamin D, 25-hydrox y measurement [facility] Immunizations Immunization Date Immunization Notes Care Provider [facility] 05-31-2024 influenza, seasonal, injectable, preservative free Dr. Wyatt Marcelo MD Work Phone: [facility] 04-19-2023 influenza, injectabl e, quadrivalent, preservative free Dr. Wyatt Marcelo Work Phone: [facility] 12-05-2022 tetanus toxoid, redu bassem diphtheria toxoid, and acellular pertussis vaccine, adsorbed Dr. Wyatt Marcelo Work Phone: [facility] 06-02-2022 influenza, injectabl e, quadrivalent, preservative free Dr. Wyatt Marcelo Work Phone: [facility] 06-02-2022 influenza, seasonal, injectable Dr. Wyatt Marcelo Work Phone: [facility] 07-30-2021 Covid (Moderna) Dr. Loni Marcelo Work Phone: [facility] 05-04-2021 influenza, injectabl e, quadrivalent, preservative free Dr. Wyatt Marcelo Work Phone: [facility] 05-04-2021 influenza, seasonal, injectable Dr. Wyatt Marcelo Work Phone: [facility] 05-04-2021 Seasonal, quadrivale nt, recombinant, injectable influenza vaccine, preservative free Dr. Wyatt Marcelo Work Phone: [facility] 09-21-2020 influenza, injectabl e, quadrivalent, preservative free Dr. Wyatt Marcelo Work Phone: [facility] 09-21-2020 influenza, seasonal, injectable Dr. Wyatt Marcelo Work Phone: [facility] 09-21-2020 Seasonal, quadrivale nt, recombinant, injectable influenza vaccine, preservative free Dr. Wyatt Marcelo Work Phone: [facility] 09-01-2020 Covid (Moderna) Dr. Loni Marcelo Work Phone: [facility] 08-04-2020 Covid (Moderna) Dr. Loni Marcelo Work Phone: [facility] 05-05-2019 influenza, injectabl e, quadrivalent, preservative free Dr. Wyatt Marcelo Work Phone: [facility] 05-05-2019 influenza, seasonal, injectable Dr. Wyatt Marcelo Work Phone: [facility] 04-13-2018 influenza, injectabl e, quadrivalent, preservative free Dr. Wyatt Marcelo Work Phone: [facility] 04-13-2018 influenza, seasonal, injectable Dr. Wyatt Marcelo Work Phone: [facility] 02-16-2018 hepatitis B vaccine, adult dosage Dr. Wyatt Marcelo Work Phone: [facility] 08-24-2017 hepatitis B vaccine, adult dosage Dr. Wyatt Marcelo Work Phone: [facility] 07-24-2017 hepatitis B vaccine, adult dosage Dr. Wyatt Marcelo Work Phone: [facility] 12-12-2016 tetanus toxoid, redu bassem diphtheria toxoid, and acellular pertussis vaccine, adsorbed Dr. Wyatt Marcelo Work Phone: [facility] 08-18-2015 influenza, injectabl e, quadrivalent, preservative free Dr. Wyatt Marcelo Work Phone: [facility] 05-19-2009 novel [id number], preservative-free, injectable Dr. Wyatt Marcelo Work Phone: [facility] Payers Date Payer Category Payer Self-pay [id number] 2023 Unknown [id number] Unknown [id number] Unknown [id number] Unknown [id number] 2.16.8 [id number] Unknown [id number] 2.16.8 [id number] Unknown [id number] 2.16.8 [id number] Unknown [id number] 2.16.8 [id number] Unknown [id number] 2.16.8 [id number] Unknown [id number] 2.16.8 [id number] Unknown [id number] 2.16.8 [id number] Unknown [id number] 2.16.8 [id number] Unknown [id number] 2.16.8 [id number] Unknown [id number] 2.16.8 [id number] Unknown [id number] 2.16.8 [id number] Unknown [id number] 2.16.8 [id number] Unknown [id number] 2.16.8 [id number] Unknown [id number] 2.16.8 [id number] Unknown [id number] 2.16.8 [id number] Unknown [id number] 2.16.8 [id number] Unknown [id number] 2.16.8 [id number] Unknown [id number] 2.16.8 [id number] Unknown [id number] 2.16.8 [id number] Unknown [id number] 2.16.8 [id number] Unknown [id number] 2.16.8 [id number] Unknown [id number] 2.16.8 [id number] Unknown [id number] 2.16.8 [id number] Unknown [id number] 2.16.8 [id number] Unknown [id number] 2.16.8 [id number] Social History Date Type Detail Facility Start: 10-08-2021 End: 10-12-2023 Tobacco smoking status NHIS Unknown if ever smoked [facility] Start: 1980 Sex Assigned At Female [facility] Start: 08-31-2024 Tobacco smoking stat us NHIS Never smoked tobacco (finding) [facility] Start: 10-14-2024 End: 11-12-2024 Sex Female (finding) [facility] Medical Equipment Procedure Code Equipment Code Equipment Origin al Text Equipment Identifier Dates NINALILYJARRETT Valery CROUCH FDA Start: 06-21-2018 NINALILYJARRETT Valery CROUCH FDA Start: 06-21-2018 NINALILYJARRETT Valery CROUCH FDA Start: 06-21-2018 NINALILYJARRETT Valery WEJARRETT FDA Start: 06-21-2018 NINALILYJARRETT Valery WEJARRETT FDA Start: 06-21-2018 NINAHEMMARSJARRETT Valery WEJARRETT FDA Start: 06-21-2018 NINALILYJARRETT D WEJARRETT FDA Start: 06-21-2018 NINAGAYLEESTELLA Valery CROUCH FDA Start: 06-21-2018 NINALILYJARRETT D WILLA FDA Start: 06-21-2018 NINAEDNA MICHAEL D WEJARRETT FDA Start: 06-21-2018 NINALILYJARRETT D WEJARRETT FDA Start: 06-21-2018 NINALILYJARRETT D WECK FDA Start: 06-21-2018 NINAHEMESTELLA MICHAEL D KELLECK FDA Start: 06-21-2018 NINAEDNA MICHAEL D WECK FDA Start: 06-21-2018 NINALILYJARRETT D WECK FDA Start: 06-21-2018 NINALILYJARRETT D WECK FDA Start: 06-21-2018 NINAHEMESTELLA MICHAEL D WECK FDA Start: 06-21-2018 NINAHEMESTELLA MICHAEL D WECK FDA Start: 06-21-2018 NINAHEMMARSJARRETT D WECK FDA Start: 06-21-2018 NINAHEMMARSJARRETT D WECK FDA Start: 06-21-2018 NINAHEMMARSJARRETT D WECK FDA Start: 06-21-2018 NINAHEMMARSJARRETT D WECK FDA Start: 06-21-2018 NINAHEMESTELLA D WEJARRETT FDA Start: 06-21-2018 NINAHEMMARSJARRETT D WEJARRETT FDA Start: 06-21-2018 NINAEDNA FDA Start: 06-21-2018 CLIPEDNA FDA Start: 06-21-2018 CLIPEDNA FDA Start: 06-21-2018 CLIPEDNA FDA Start: 06-21-2018 CLIPEDNA FDA Start: 06-21-2018 CLIPEDNA FDA Start: 06-21-2018 CLIPEDNA FDA Start: 06-21-2018 CLIPEDNA FDA Start: 06-21-2018 CLIPEDNA FDA Start: 06-21-2018 CLIPEDNA FDA Start: 06-21-2018 CLIPEDNA FDA Start: 06-21-2018 CLIPEDNA FDA Start: 06-21-2018 CLIPEDNA FDA Start: 06-21-2018 CLIPEDNA FDA Start: 06-21-2018 CLIPEDNA FDA Start: 06-21-2018 CLIPEDNA FDA Start: 06-21-2018 CLIPEDNA FDA Start: 06-21-2018 CLIPEDNA FDA Start: 06-21-2018 CLIPEDNA FDA Start: 06-21-2018 CLIPEDNA FDA Start: 06-21-2018 CLIPEDNA FDA Start: 06-21-2018 CLIPEDNA FDA Start: 06-21-2018 Safety Locust ( Bd Eclipse) 25 gauge x 1 needle Start: 10-10-2023 EDNA WOOD D WEJARRETT FDA Start: 06-21-2018 CLIPEDNA FDA Start: 06-21-2018 Safety Locust ( Bd Eclipse) 25 gauge x 1 needle Start: 10-10-2023 EDNA WOOD D WILLA FDA Start: 06-21-2018 CLIPEDNA WEJARRETT FDA Start: 06-21-2018 Safety Locust ( Bd Eclipse) 25 gauge x 1 needle Start: 10-10-2023 End: 03-20-2024 EDNA WOOD FDA Start: 06-21-2018 EDNA WOOD FDA Start: 06-21-2018 Safety Locust ( Bd Eclipse) 25 gauge x 1 needle Start: 10-10-2023 End: 03-20-2024 EDNA WOOD FDA Start: 06-21-2018 EDNA WOOD FDA Start: 06-21-2018 Safety Locust ( Bd Eclipse) 25 gauge x 1 needle Start: 10-10-2023 End: 03-20-2024 EDNA WOOD FDA Start: 06-21-2018 EDNA WOOD FDA Start: 06-21-2018 Safety Locust ( Bd Eclipse) 25 gauge x 1 needle Start: 10-10-2023 End: 03-20-2024 Goals Date Patient Goal Desired Activity /State Clinical Notes 09-13-2021 to 10-23-2024 Note Date & Type Note Facility 10-23-2024 Evaluation note Diagnosis Onset Date Resolution Diabetes mellitus type 2, diet-controlled acute October 23 4:43pm Anxiety and depression chronic Ap 2024 4:43pm Hypertension chronic October 23, 2 025 4:43pm KRISTOPHER (obstructive sleep apnea) chronic October 23, 2024 4:43pm Constipation acute December 13 6:57am GERD (gastroesophageal reflux disease) chronic December 13, 2024 6:57am Hypothyroidism chronic January 07, 2025 11:26am [facility] Work Phone: 1(633) 385-771102-15-2025 Evaluation note* Diagnosis Onset Date Resolution Status Admit Date Sinus infection acute August 31, 2024 11:35am [facility] Work Phone: 1(850) 422-561302-15-2025 Evaluation note* Diagnosis Onset Date Resolution Status Admit Date Sinus infection acute August 31, 2024 11:35am Diabetes mellitus type 2, diet-controlled acute October 23, 2024 4:43pm Anxiety and depression chronic Ap 2024 4:43pm Hypertension chronic October 23, 2 025 4:43pm KRISTOPHER (obstructive sleep apnea) chroni c October 23, 2024 4:43pm [facility] Work Phone: [phone] [id number] NoteHNO ID: [id number] Author: Flower Pinedo MD Service: ? Author [...] the mornings and evenings. 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 Swelling in hands towards the end of [...] PAST SURGICAL HISTORY OF Hysterectomy, ovaries intact 2017 - PAST SURGICAL HISTORY OF Cholecystectomy 2018 [...] Relation Age of Onset (more content not included)...[facility] N[facility] Chief Complaint 3 Y FU NEED REFERRAL FOR RHEUMATOLOGY Thyroid dysfunction leg pain LEFT LEG PAIN Reason for Visit BMI 45.0-49.9, adult KRISTOPHER (obstructive sleep apnea) Sjogren's disease Sjogren's disease Insulin resistance Hypothyroidism Pain of left calf Hypertension [facility] Work Phone: Chief complaint+Reason for visit Narrative* Chief Complaint SORE THROAT/HEADACHE /PCR exposure employee Reason for Visit COVID-19 Needlestick injury of finger Occupational exposure in workplace [facility] Work Phone: Evaluation note* Diagnosis Onset Date Resolution Status BMI 45.0-49.9, adult chronic KRISTOPHER (obstructive sleep apnea) chronic Sjogren's disease chronic Sjogren's disease chronic Insulin resistance acute Hypothyroidism chronic Pain of left calf acute Hypertension chronic [facility] Work Phone: Evaluation note* Diagnosis Onset Date Resolution Status Pain of left calf acute Hypertension chronic Anxiety and depression chron ic Hypertension chronic Hypothyroidism chronic BMI 50.0-59.9, adult noneact werner Sweating increase noneactive [facility] Work Phone: Evaluation note* Diagnosis Onset Date Resolution Status Anxiety and depression chron ic Hypertension chronic Hypothyroidism chronic BMI 50.0-59.9, adult noneact werner Sweating increase noneactive COVID-19 acute [facility] Work Phone: Evaluation note* Diagnosis Onset Date Resolution Status COVID-19 acute Needlestick injury of finger acute Occupational exposure in workplace acute [facility] Work Phone: Evaluation note* Diagnosis Onset Date Resolution Status Needlestick injury of finger acute Occupational exposure in workplace acute Preventative health care non eactive [facility] Work Phone: Evaluation note* Diagnosis Onset Date Resolution Status Preventative health care non eactive Back pain noneactive Hip pain noneactive [facility] Work Phone: Evaluation note* Diagnosis Onset Date Resolution Status Back pain noneactive Hip pain noneactive Hypercalcemia acute Prediabetes acute Hypothyroidism chronic Vitamin deficiency chronic Acute bronchitis, unspecified acute B12 deficiency chronic Migraine headache without aura chronic Urge incontinence chronic B12 deficiency chronic [facility] Work Phone: Evaluation note* Diagnosis Onset Date Resolution Status Back pain noneactive Hip pain noneactive Hypercalcemia acute Prediabetes acute Hypothyroidism chronic Vitamin deficiency chronic B12 deficiency chronic Migraine headache without aura chronic Urge incontinence chronic B12 deficiency chronic Obesity, morbid, BMI 50 or higher acute Urge incontinence chronic Encounter for routine gynecological examination noneactive [facility] Work Phone: Evaluation note* Diagnosis Onset Date Resolution Status Hypercalcemia acute Prediabetes acute Hypothyroidism chronic Vitamin deficiency chronic B12 deficiency chronic Migraine headache without aura chronic Urge incontinence chronic B12 deficiency chronic Obesity, morbid, BMI 50 or higher acute Urge incontinence chronic Encounter for routine gynecological examination noneactive B12 deficiency chronic [facility] Work Phone: Evaluation note* Diagnosis Onset Date Resolution Status Hypercalcemia acute Prediabetes acute Hypothyroidism chronic Vitamin deficiency chronic B12 deficiency chronic Migraine headache without aura chronic Urge incontinence chronic B12 deficiency chronic Obesity, morbid, BMI 50 or higher acute Urge incontinence chronic Encounter for routine gynecological examination noneactive B12 deficiency chronic Lymph node enlargement acute Primary hyperparathyroidism acute [facility] Work Phone: Evaluation note* Diagnosis Onset Date Resolution Status B12 deficiency chronic Migraine headache without aura chronic Urge incontinence chronic B12 deficiency chronic Obesity, morbid, BMI 50 or higher acute Urge incontinence chronic Encounter for routine gynecological examination noneactive B12 deficiency chronic Lymph node enlargement acute Primary hyperparathyroidism acute B12 deficiency chronic Autoimmune disease acute Cat bite acute [facility] Work Phone: Evaluation note* Diagnosis Onset Date Resolution Status B12 deficiency chronic Migraine headache without aura chronic Urge incontinence chronic B12 deficiency chronic Obesity, morbid, BMI 50 or higher acute Urge incontinence chronic Encounter for routine gynecological examination noneactive B12 deficiency chronic Lymph node enlargement acute Primary hyperparathyroidism acute B12 deficiency chronic Autoimmune disease acute Cat bite acute B12 deficiency chronic BMI 45.0-49.9, adult chronic KRISTOPHER (obstructive sleep apnea) chronic Sjogren's disease chronic [facility] Work Phone: Evaluation note* Diagnosis Onset Date Resolution Status B12 deficiency chronic Lymph node enlargement acute Primary hyperparathyroidism acute B12 deficiency chronic Autoimmune disease acute Cat bite acute B12 deficiency chronic BMI 45.0-49.9, adult chronic KRISTOPHER (obstructive sleep apnea) chronic Sjogren's disease chronic [facility] Work Phone: Evaluation note* Diagnosis Onset Date Resolution Status Autoimmune disease acute Cat bite acute B12 deficiency chronic BMI 45.0-49.9, adult chronic KRISTOPHER (obstructive sleep apnea) chronic Sjogren's disease chronic Palpitations acute Arthritis chronic Hypertension chronic [facility] Work Phone: Evaluation note* Diagnosis Onset Date Resolution Status BMI 45.0-49.9, adult chronic KRISTOPHER (obstructive sleep apnea) chronic Sjogren's disease chronic Palpitations acute Arthritis chronic Hypertension chronic Chest pain in adult noneacti ve [facility] Work Phone: Evaluation note* Diagnosis Onset Date Resolution Status Palpitations acute Arthritis chronic Hypertension chronic Chest pain in adult noneacti ve Borderline type 2 diabetes mellitus acute Preventative health care acu te Migraine headache without aura chronic [facility] Work Phone: Evaluation note* Diagnosis Onset Date Resolution Status Obesity, morbid, BMI 50 or higher acute Anxiety and depression chron ic [facility] Work Phone: Evaluation note* Diagnosis Onset Date Resolution Status Obesity, morbid, BMI 50 or higher acute Anxiety and depression chron ic Acute sinusitis acute [facility] Work Phone: Reason for referral (narrative)No reason for referral information availableUniversity [facility] Work Phone: Summary Purpose Family History No Family History Records Found Relationship Condition Age at Onset Recorded Date/T venu Not Specified Malignant neoplasm of skin Unknown Anemia Unknown Anxiety Unknown Complication of anesthesia Unknown Parkinson's disease Unknown grandmother Cardiac disease Unknown Arthritis Unknown Diabetes mellitus Unknown Hypertension Unknown Disorder of thyroid Unknown Gastric ulcer Unknown mother Asthma Unknown aunt Arthritis Unknown Cardiac disease Unknown Autoimmune disease Unknown grandfather Malignant neoplasm Unknown father Hypertension Unknown uncle Cardiac disease Unknown Relationship Condition Age at Onset Recorded Date/T venu Not Specified Malignant neoplasm of skin Unknown Anemia Unknown Anxiety Unknown Complication of anesthesia Unknown Parkinson's disease Unknown grandmother Cardiac disease Unknown Arthritis Unknown Diabetes mellitus Unknown Hypertension Unknown Disorder of thyroid Unknown Gastric ulcer Unknown mother Asthma Unknown Osteoporosis Unknown aunt Arthritis Unknown Cardiac disease Unknown Autoimmune disease Unknown grandfather Malignant neoplasm Unknown father Hypertension Unknown uncle Cardiac disease Unknown Advance Directives No Advanced Directives Records Found Advance Directive Response Recorded Date/ Time Living Will No July 28 10:25am Power of Electric Tape Slitter No July 28, 2021 10:25am Advance Directive Response Recorded Date/ Time Living Will No March 07 2 1:03pm Power of Electric Tape Slitter No March 07 022 1:03pm Advance Directive Response Recorded Date/ Time Living Will No March 07 2 12:03pm Power of Electric Tape Slitter No March 07 2 022 12:03pm Advance Directive Response Recorded Date/ Time Living Will No June 11, 2 023 8:07am Power of Electric Tape Slitter No June 11, 2023 8:07am Advance Directive Response Recorded Date/ Time Living Will No June 11, 023 9:07am Power of Electric Tape Slitter No June 11, 2023 9:07am Advance Directive Response Recorded Date/ Time Living Will No January 18, 2024 1 2:16pm Do you have a Healthcare Power of Electric Tape Slitter? No January 18, 2024 12:16pm Chief Complaint and Reason for Visit Chief Complaint leg pain LEFT LEG PAIN FOLLOW UP, MEDS Reason for Visit Pain of left calf Hypertension Anxiety and depression Hypertension Hypothyroidism BMI 50.0-59.9, adult Sweating increase Chief Complaint FOLLOW UP, MEDS SORE THROAT/HEADACHE/PCR exposure Reason for Visit Anxiety and depressi on Hypertension Hypothyroidism BMI 50.0-59.9, adult Sweating increase COVID-19 Chief Complaint exposure employee WELLNESS EXPOSURE FOLLOW UP Reason for Visit Needlestick injury o f finger Occupational exposure in workplace Preventative health care Chief Complaint WELLNESS EXPOSURE FOLLOW UP pain Reason for Visit Preventative health care Back pain Hip pain Chief Complaint EXPOSURE FOLLOW UP pain 1 Y FU cold symptoms FOLLOW UP/MEDS B12 Reason for Visit Back pain Hip pain Hypercalcemia Prediabetes Hypothyroidism Vitamin deficiency Acute bronchitis, unspecified B12 deficiency Migraine headache without aura Urge incontinence B12 deficiency Chief Complaint pain 1 Y FU cold symptoms FOLLOW UP/MEDS B12 LABS AND XRAY Amb Documentation B12 Annual (CLIENT CUSTOMER MANAGER) Reason for Visit Back pain Hip pain Hypercalcemia Prediabetes Hypothyroidism Vitamin deficiency B12 deficiency Migraine headache without aura Urge incontinence B12 deficiency Obesity, morbid, BMI 50 or higher Urge incontinence Encounter for routine gynecological examination Chief Complaint 1 Y FU cold symptoms FOLLOW UP/MEDS B12 LABS AND XRAY Amb Documentation B12 Annual (CLIENT CUSTOMER MANAGER) b12 SCREENING LOCALIZED PARATHYROID ADENOMA Reason for Visit Hypercalcemia Prediabetes Hypothyroidism Vitamin deficiency B12 deficiency Migraine headache without aura Urge incontinence B12 deficiency Obesity, morbid, BMI 50 or higher Urge incontinence Encounter for routine gynecological examination B12 deficiency Chief Complaint 1 Y FU cold symptoms FOLLOW UP/MEDS B12 LABS AND XRAY Amb Documentation B12 Annual (CLIENT CUSTOMER MANAGER) b12 SCREENING LOCALIZED PARATHYROID ADENOMA HYPERPARATHYROIDISM Enlarged Lymph Nodes ENLARGED LYMPH NODE B12 Reason for Visit Hypercalcemia Prediabetes Hypothyroidism Vitamin deficiency B12 deficiency Migraine headache without aura Urge incontinence B12 deficiency Obesity, morbid, BMI 50 or higher Urge incontinence Encounter for routine gynecological examination B12 deficiency Lymph node enlargement Primary hyperparathyroidism Chief Complaint cold symptoms FOLLOW UP/MEDS B12 LABS AND XRAY Amb Documentation B12 Annual (CLIENT CUSTOMER MANAGER) b12 SCREENING LOCALIZED PARATHYROID ADENOMA HYPERPARATHYROIDISM Enlarged Lymph Nodes ENLARGED LYMPH NODE B12 cat attack Reason for Visit B12 deficiency Migraine headache without aura Urge incontinence B12 deficiency Obesity, morbid, BMI 50 or higher Urge incontinence Encounter for routine gynecological examination B12 deficiency Lymph node enlargement Primary hyperparathyroidism B12 deficiency Autoimmune disease Cat bite Chief Complaint FOLLOW UP/MEDS B12 LABS AND XRAY Amb Documentation B12 Annual (CLIENT CUSTOMER MANAGER) b12 SCREENING LOCALIZED PARATHYROID ADENOMA HYPERPARATHYROIDISM Enlarged Lymph Nodes ENLARGED LYMPH NODE B12 cat attack b12 shot CPAP SUPPLIES Reason for Visit B12 deficiency Migraine headache without aura Urge incontinence B12 deficiency Obesity, morbid, BMI 50 or higher Urge incontinence Encounter for routine gynecological examination B12 deficiency Lymph node enlargement Primary hyperparathyroidism B12 deficiency Autoimmune disease Cat bite B12 deficiency BMI 45.0-49.9, adult KRISTOPHER (obstructive sleep apnea) Sjogren's disease Chief Complaint FOLLOW UP/MEDS B12 LABS AND XRAY Amb Documentation B12 Annual (CLIENT CUSTOMER MANAGER) b12 SCREENING LOCALIZED PARATHYROID ADENOMA HYPERPARATHYROIDISM Enlarged Lymph Nodes ENLARGED LYMPH NODE B12 cat attack b12 shot CPAP SUPPLIES EORDER Reason for Visit B12 deficiency Migraine headache without aura Urge incontinence B12 deficiency Obesity, morbid, BMI 50 or higher Urge incontinence Encounter for routine gynecological examination B12 deficiency Lymph node enlargement Primary hyperparathyroidism B12 deficiency Autoimmune disease Cat bite B12 deficiency BMI 45.0-49.9, adult KRISTOPHER (obstructive sleep apnea) Sjogren's disease Chief Complaint b12 SCREENING LOCALIZED PARATHYROID ADENOMA HYPERPARATHYROIDISM Enlarged Lymph Nodes ENLARGED LYMPH NODE B12 cat attack b12 shot CPAP SUPPLIES EORDER Amb Documentation ENLARGED LYMPHNODE Reason for Visit B12 deficiency Lymph node enlargement Primary hyperparathyroidism B12 deficiency Autoimmune disease Cat bite B12 deficiency BMI 45.0-49.9, adult KRISTOPHER (obstructive sleep apnea) Sjogren's disease Chief Complaint cat attack b12 shot CPAP SUPPLIES EORDER Amb Documentation ENLARGED LYMPHNODE follow up Reason for Visit Autoimmune disease Cat bite B12 deficiency BMI 45.0-49.9, adult KRISTOPHER (obstructive sleep apnea) Sjogren's disease Palpitations Arthritis Hypertension Chief Complaint CPAP SUPPLIES EORDER Amb Documentation ENLARGED LYMPHNODE follow up off and on chest pain Reason for Visit BMI 45.0-49.9, adult KRISTOPHER (obstructive sleep apnea) Sjogren's disease Palpitations Arthritis Hypertension Chest pain in adult Chief Complaint Amb Documentation ENLARGED LYMPHNODE follow up off and on chest pain 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 Vomiting Reason for Visit Palpitations Arthritis Hypertension Chest pain in adult Borderline type 2 diabetes mellitus Preventative health care Migraine headache without aura Chief Complaint follow up off and on chest pain 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 Vomiting Reason for Visit Palpitations Arthritis Hypertension Chest pain in adult Borderline type 2 diabetes mellitus Preventative health care Migraine headache without aura Chief Complaint ANXIETY/WEIGHT DISCU SSION Reason for Visit Obesity, morbid, BMI 50 or higher Anxiety and depression Chief Complaint ANXIETY/WEIGHT DISCU SSION SINUS PRESSURE, EAR PAIN, SORE THROAT Reason for Visit Obesity, morbid, BMI 50 or higher Anxiety and depression Acute sinusitis Chief Complaint Admit Date LUMBAR SPONDYLOLYSIS/RX HERE July 112023 4:30pm SINUS INFECTION August 31, 2024 11:35am Reason for Visit Admit Date Sinus infection August 31, 2024 11:35am Chief Complaint Admit Date SINUS INFECTION August 31, 2024 11:35am 6 M FU October 23, 2024 4:43 pm Reason for Visit Admit Date Sinus infection August 31, 2024 11:35am Diabetes mellitus type 2, diet-controlle d October 23, 2024 4:43pm Anxiety and depression October 23, 2024 4 :43pm Hypertension October 23, 2024 4:43 pm KRISTOPHER (obstructive sleep apnea) October 23, 2024 4:43pm Chief Complaint Admit Date SINUS INFECTION August 31, 2024 11:35am 6 M FU October 23, 2024 4:43 pm RECTAL BLEEDING - COLONOSCOPY December 13, 2024 6:57am Chief Complaint Admit Date 8 M FU October 23, 2024 4:43 pm RECTAL BLEEDING - COLONOSCOPY December 13, 2024 6:57am 13 M FU, Cx 12/13January 07, 2025 11:2 6am Reason for Visit Admit Date Diabetes mellitus type 2, diet-controlle d October 23, 2024 4:43pm Anxiety and depression October 23, 2024 4 :43pm Hypertension October 23, 2024 4:43 pm KRISTOPHER (obstructive sleep apnea) October 23, 2024 4:43pm Constipation December 13, 2024 6:57a m GERD (gastroesophageal reflux disease) M ay 2024 6:57am Hypothyroidism January 07, 2025 11:2 6am Additional Source Comments INFORMATION SOURCE (unrecogn ized section and content) DATE CREATED AUTHOR 01/09/2018 [facility] DATE CREATED AUTHOR AUTHOR'S ORGANIZ ATION 09/14/2021 [facility] DATE CREATED AUTHOR AUTHOR'S ORGANIZ ATION 10/03/[address] [facility] DATE CREATED AUTHOR AUTHOR'S ORGANIZ ATION 01/11/2025 [facility] Care Teams (unrecognized sec tion and content) Team Status: Active Member Role Status Dates Dr. Wyatt Marcelo MD Family Provider Active Dr. Wyatt Marcelo MD Primary Care Provider Active Team Status: Inactive Member Role Status Dates Dr. Wyatt Marcelo MD Primary Care Provider, Refer ring Provider Active ISIDRA Ortiz Attending Provider Active Team Status: Inactive Member Role Status Dates Dr. Wyatt Marcelo MD Primary Care Provider Active Dr. Dominique Osorio MD Attending Provider, Referring Provider Active Team Status: Active Member Role Status Dates Dr. Wyatt Marcelo MD Primary Care Provider Active Nicolette Blair Attending Provider, Referring Provider Active Team Status: Inactive Member Role Status Dates Dr. Wyatt Marcelo MD Primary Care Provider Active Dr. Cali Lou MD Attending Provider, Referring Provi francisco Active Team Status: Inactive Member Role Status Dates Dr. Wyatt Marcelo MD Primary Care Provider Active Dr. Dominique Osorio MD Attending Provider Active Team Status: Inactive Member Role Status Dates Dr. Wyatt Marcelo MD Primary Care Provider, Refer ring Provider Active Dr. Cali Lou MD Attending Provider Active Team Status: Inactive Member Role Status Dates Dr. Wyatt Marcelo MD Primary Care Provider, Refer ring Provider Active Dirk Paula INDUSTRIAL NURSE, INDUSTRIAL NURSE-C Attending Provider Active Team Status: Active Member Role Status Dates Dr. Wyatt Marcelo MD Primary Care Provider Active Dirk Paula INDUSTRIAL NURSE, INDUSTRIAL NURSE-C Attending Provider Active Team Status: Inactive Member Role Status Dates Dr. Wyatt Marcelo MD Primary Care P rovider, Attending Provider, Referring Provider Active Team Status: Inactive Member Role Status Dates Dr. Wyatt Marcelo MD Primary Care Provider Active Dirk Paula INDUSTRIAL NURSE, INDUSTRIAL NURSE-C Attending Provider Active Team Status: Inactive Member Role Status Dates Dr. Wyatt Marcelo MD Primary Care Provider, Refer ring Provider Active Laine Coronado INDUSTRIAL NURSE, INDUSTRIAL NURSE-C Attending Provider Active Team Status: Active Member Role Status Dates Dr. Wyatt Marcelo MD Primary Care Provider Active Candice Lopez Attending Provider Active Team Status: Inactive Member Role Status Dates Dr. Wyatt Marcelo MD Primary Care Provider Active STEVEN BOLES MD Attending Provider, Referring Pro vider Active Team Status: Inactive Member Role Status Dates Dr. Wyatt Marcelo MD Primary Care P rovider, Attending Provider, Referring Provider Active Davian Schneider Active Team Status: Inactive Member Role Status Dates Dr. Wyatt Marcelo MD Primary Care Provider Active Laine Coronado INDUSTRIAL NURSE, INDUSTRIAL NURSE-C Attending Provider Active Team Status: Inactive Member Role Status Dates Dr. Wyatt Marcelo MD Primary Care Provider Active Dr. Juan R Arredondo MD Attending Provider Active Dr. Cali Lou MD Referring Provider Active Team Status: Active Member Role Status Dates Dr. Wyatt Marcelo MD Primary Care Provider Active Dr. Juan R Arredondo MD Attending Provider, Referring P rovider Active Team Status: Inactive Member Role Status Dates Dr. Wyatt Marcelo MD Primary Care Provider Active Dr. Juan R Arredondo MD Attending Provider, Referring P rovider Active Team Status: Active Member Role Status Dates Dr. Wyatt Marcelo MD Primary Care Provider Active Dirk Paula INDUSTRIAL NURSE, INDUSTRIAL NURSE-C Attending Provider, Referring Prov ider Active Team Status: Inactive Member Role Status Dates Dr. Wyatt Marcelo MD Primary Care Provider Active STEVEN BOLES MD Attending Provider Active Team Status: Inactive Member Role Status Dates Dr. Wyatt Marcelo MD Primary Care Provider Active Dirk Paula INDUSTRIAL NURSE, INDUSTRIAL NURSE-C Attending Provider, Referring Prov ider Active Team Status: Inactive Member Role Status Dates Dr. Wyatt Marcelo MD Primary Care Provider, Refer ring Provider Active Dr. Geovanni Mendiola MD Attending Provider Active Team Status: Active Member Role Status Dates Dr. Wyatt Marcelo MD Primary Care Provider Active Nell Meyer MA Attending Provider Acti ve Team Status: Inactive Member Role Status Dates Dr. Wyatt Marcelo MD Primary Care Provider, Refer ring Provider Active Dr. Gay Koenig MD Attending Provider Active Team Status: Inactive Member Role Status Dates Dr. Wyatt Marcelo MD Primary Care Provider Active Dr. Gay Koenig MD Attending Provider Active Team Status: Active Member Role Status Dates Dr. Wyatt Marcelo MD Primary Care Provider Active Health Risk Assessment Attending Provider, Referring P rovider Active Team Status: Inactive Member Role Status Dates Dr. Wyatt Marcelo MD Primary Care Provider Active Dr. Kane Fisher DO Emergency Provider Active Team Status: Inactive Member Role Status Dates Dr. Wyatt Marcelo MD Primary Care Provider Active Dr. Kane Fisher DO Attending Provider, Emergency Provider Active Team Status: Inactive Member Role Status Dates Dr. Wyatt Marcelo MD Primary Care Provider, Refer ring Provider Active ZAFAR Merrill Attending Provider Active Team Status: Inactive Member Role Status Dates Dr. Wyatt Marcelo MD Primary Care Provider Active KINA LOPES Attending Provider Active Team Status: Inactive Member Role Status Dates Dr. Wyatt Marcelo MD Primary Care Provider Active KINA LOPES Attending Provider, Referring Prov ider Active Team Status: Inactive Member Role Status Dates Dr. Wyatt Marcelo MD Primary Care Provider, Refer ring Provider Active Herbert MINER PA Attending Provider Active Team Status: Active Member Role Status Dates Dr. Wyatt Marcelo MD Primary Care Provider Active DERECK MerrillC Attending Provider, Referring Pro vider Active Team Status: Inactive Member Role Status Dates Dr. Wyatt Marcelo MD Primary Care Provider Active Liliana Bangura NP-C Attending Provider, Referring Pro vider Active Team Status: Active Member Role Status Dates Dr. Wyatt Marcelo MD Primary Care Provider Active Start: July 11, 2024 ISIDRA Avendano Attending Provider Active Star t: July 11, 2024 ISIDRA Avendano Referring Provider Active Star t: July 11, 2024 Team Status: Inactive Member Role Status Dates Dr. Wyatt Marcelo MD Primary Care Provider Active Start: July 23, 2024 End: July 23, 2024 STEVEN BOLES MD Attending Provider Active S tart: July 23, 2024 End: July 23, 2024 STVEEN BOLES MD Referring Provider Active S tart: July 23, 2024 End: July 23, 2024 Team Status: Inactive Member Role Status Dates Dr. Wyatt Marcelo MD Primary Care Provider Active Start: August 31, 2024 End: August 31, 2024 Dr. Wyatt Marcelo MD Referring Provider Active Start: August 31, 2024 End: August 31, 2024 ZAFAR Kurtz Attending Provider Active Start: August 31, 2024 End: August 31, 2024 Team Status: Inactive Member Role Status Dates Dr. Wyatt Marcelo MD Primary Care Provider Active Start: October 10, 2024 End: October 10, 2024 Dr. Wyatt Marcelo MD Attending Provider Active Start: October 10, 2024 End: October 10, 2024 Dr. Wyatt Marcelo MD Referring Provider Active Start: October 10, 2024 End: October 10, 2024 Team Status: Active Member Role Status Dates Dr. Wyatt Marcelo MD Primary Care Provider Active Team Status: Inactive Member Role Status Dates Dr. Wyatt Marcelo MD Primary Care Provider Active Start: October 23, 2024 End: October 23, 2024 Dr. Wyatt Marcelo MD Attending Provider Active Start: October 23, 2024 End: October 23, 2024 Dr. Wyatt Marcelo MD Referring Provider Active Start: October 23, 2024 End: October 23, 2024 Team Status: Inactive Member Role Status Dates Dr. Wyatt Marcelo MD Primary Care Provider Active Start: November 07, 2024 End: November 07, 2024 STEVEN BOLES MD Attending Provider Active S tart: November 07, 2024 End: November 07, 2024 STEVEN BOLES MD Referring Provider Active S tart: November 07, 2024 End: November 07, 2024 Team Status: Inactive Member Role Status Dates Dr. Wyatt Marcelo MD Referring Provider Active Start: December 13, 2024 End: December 13, 2024 ISIDRA Champagne Attending Provider Active Start: December 13, 2024 End: December 13, 2024 Team Status: Inactive Member Role Status Dates Dr. Wyatt Marcelo MD Primary Care Provider Active Start: January 07, 2025 End: January 07, 2025 Dr. Wyatt Marcelo MD Referring Provider Active Start: January 07, 2025 End: January 07, 2025 Dr. Cali Lou MD Attending Provider Active Sta rt: January 07, 2025 End: January 07, 2025 FOR RECORDS PERTAINING TO PATIENTS WHO ARE [...] BE BASED ON THE PRIMARY CLINICAL RECORDS. [facility] [employer] [facility]. provides no warranty or guarantee of the accuracy or completeness of information in this document.
--- OUTSIDE RECORDS SUMMARY | 2025-01-16 05:30 | XMS RPT_ITS | CCD ---
Author Organization [facility] Care Team Providers Care [employer] Molder Name Role Phone ANTONIO, CHRISTOPHER R Unavailable [...] Provider UnavailDr. Cali Sorto Attending Provider Nisa KILN TRANSFER OPERATOR, KILN TRANSFER OPERATOR-C Dirk Attending Provider [phone] Dr. Wyatt Marcelo Attending Provider [phone] Candice Lopez Attending Provider Unavailable Ivonne KILN TRANSFER OPERATOR, KILN TRANSFER OPERATOR-C Laine Attending Provider [phone] Dr. Wyatt Marcelo Primary Care Provider [phone] Dr. Wyatt Marcelo Referring Provider [phone] Dr. Juan R Arredondo Attending Provider Dr. Cali Lou Referring Provider Dr. Wyatt Marcelo Primary Care Provider [phone] Dr. Wyatt Marcelo Referring Provider [phone] Dr. Wyatt Marcelo Primary Care Provider [phone] Dr. Wyatt Marcelo Referring Provider [phone] Nisa KILN TRANSFER OPERATOR, KILN TRANSFER OPERATOR-C Dirk Attending Provider [phone] Dr. Geovanni Mendiola [...] Dr. Schneider Attending Provider [phone] Dr. Gay Koenig Attending Provider [phone] Olemai, Dr. Schneider Primary [...] [phone] STEVEN BOLES MD Attending Provider [phone] STEVEN BOLES MD Referring Provider Dr. Wyatt Marcelo MD Referring Provider [phone] Corie Murray Attending Provider Davian CAMILO, Dr. Schneider Attending Provider [phone] Davian CAMILO, Dr. Schneider Primary Care Provider Davian CAMILO Dr. Schneider Primary Care Provider STEVEN BOLES MD Attending Provider RAMANA CAMILO, STEVEN Referring Provider Irma Valentni Attending Provider Davian CAMILO, Dr. Schneider Primary Care Provider Davian CAMILO, Dr. Schneider Referring Provider [phone] King LESLEE, Dr. Leiva Attending Provider Oleghe, [...] escitalopram; Translations: [ESCITALOPRAM] Drug Allergy 2 Other [facility] Rep[facility] Comment on above: HEADACHE (1 source) penicillin; Translations: [PENICILLIN] Drug Allergy [facility] (1 source) Penicillins; Translations: [PENICILLINS] Propensity to adverse reactions (disorder) [facility] (20 sources) Latex Allergy to substance 2 Rash [facility] (20 sources) Penicillin G Drug Allergy 2 Other [facility] (9 sources) SUMAtriptan Drug Allergy 3 headache [facility] (1 source) Latex Drug allergy (disorder) 5 [facility] (1 source) Penicillin Drug Allergy 5 [facility] (1 source) SUMAtriptan Drug Allergy 5 [facility] Medications Current Medications Medication Drug Class(es) [...] 21, 2018 1:00am June 26, 2018 1:09am [id number] 200 actuat albuterol 0.09 mg/actuat metered dose [...] monohydrate 100 mg oral capsule (20 sources) [facility] ycline -class Drug Start: 08-31-2024 End: 09-05-2024 [...] after breakfast BMI 50 polyethylene glycol 3350 54119 mg powder for oral solution (20 sources) [...] 06-25-2024 Episodic Other aftercare (1 source) Other long-term (current) drug therapy; Translations: [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 BGI established in 2020 with diar (more content not included)... Normal [facility] T4 Free Directon 11-08-2024 T4 FREE DIRECT 1.00 ng/dL Normal 0.76-1.46 [facility] Comment on above: Performed By: #### L 501.9520, L506.0400 ####[facility] [address] [place], [place], [address] Thyroid Stim Hormone (TSH)on 11-08-2024 TSH 0.729 uIU/mL Normal 0.300-4.200 [facility] Comment on above: Performed By: #### L 501.9520, L506.0400 ####[facility] [address] [place], [address] Absolute lymphocyte countOrd ered By: STEVEN BOLES on 11-07-2024 Lymphocytes Auto (Unsp spec) [#/Vol] 1.84 10*3/uL 0.83-4.51 [facility] Absolute neutrophil countOrd ered By: STEVEN BOLES on 11-07-2024 Neutrophils (Bld) [#/Vol] 4.2 10*3/uL 2.0-7.7 [facility] Automated lymphocyte count a s percentage of total leukocytesOrdered By: STEVEN BOLES on 11-07-2024 Lymphocytes/100 WBC Auto (Unsp spec) 27.3 % 19-41 [facility] Basophil percentageOrdered B y: STEVEN BOLES on 11-07-2024 Basophils/100 WBC (Bld) 0.7 % 0-1 [facility] Bilirubin directOrdered By: STEVEN BOLES on 11-07-2024 Bilirubin.direct [Mass/Vol] 0.12 mg/dL 0.00-0.30 [facility] Bilirubin, totalOrdered By: STEVEN BOLES on 11-07-2024 Bilirubin [Mass/Vol] 0.29 mg/dL 0.00-1.30 [facility] CBC W/Diff, Automatedon 10-16 Absolute Lymph 1.84 X10 3/uL Normal 0.83-4.51 [facility] Comment on above: Performed By: #### L 501.1105, L101.9900, L501.6710, L500.3400, L100.0100 #### [facility] [address] [place], [address] Absolute Neut 4.2 X10 3/uL Normal 2.0-7.7 [facility] Comment on above: Performed By: #### L 501.1105, L101.9900, L501.6710, L500.3400, L100.0100 #### [facility] [address] [place], [address] Basophils/100 WBC (Bld) 0.7 % Normal 0-1 [facility] Comment on above: Performed By: #### L 501.1105, L101.9900, L501.6710, L500.3400, L100.0100 #### [facility] [address] [place], [address] Eosinophils/100 WBC (Bld) 2.1 % Normal 0-5 [facility] Comment on above: Performed By: #### L 501.1105, L101.9900, L501.6710, L500.3400, L100.0100 #### [facility] [address] [place], [address] Erythrocyte distribution width (RBC) [Ratio] 12.7 % Normal 11.6-14.6 [facility] Comment on above: Performed By: #### L 501.1105, L101.9900, L501.6710, L500.3400, L100.0100 #### [facility] [address] [place], [address] Hematocrit (Bld) [Volume fraction] 36.6 % Low 37-47 [facility] Comment on above: Performed By: #### L 501.1105, L101.9900, L501.6710, L500.3400, L100.0100 #### [facility] [address] [place], [address] Hemoglobin (Bld) [Mass/Vol] 11.9 g/dL Low 12.0-15.0 [facility] Comment on above: Performed By: #### L 501.1105, L101.9900, L501.6710, L500.3400, L100.0100 #### [facility] [address] [place], [address] IG% 0.400 Normal 0.0-0.9 [facility] Comment on above: Result Comment: IG% - Immature Granulocytes (promyelocytes, myelocytes and metamyelocytes) > 1% indicates that a LEFT SHIFT is Present. Performed By: #### L 501.1105, L101.9900, L501.6710, L500.3400, L100.0100 #### [facility] [address] [place], [address] Lymphocytes/100 WBC (Bld) 27.3 % Normal 19-41 [facility] Comment on above: Performed By: #### L 501.1105, L101.9900, L501.6710, L500.3400, L100.0100 #### [facility] [address] [place], [address] MCH (RBC) [Entitic mass] 31.6 pg Normal 27.0-32.0 [facility] Comment on above: Performed By: #### L 501.1105, L101.9900, L501.6710, L500.3400, L100.0100 #### [facility] [address] [place], [address] MCHC (RBC) [Mass/Vol] 32.5 g/dL Normal 32-36 [facility] Comment on above: Performed By: #### L 501.1105, L101.9900, L501.6710, L500.3400, L100.0100 #### [facility] [address] [place], [address] MCV (RBC) [Entitic vol] 97.3 fL Normal 81-99 [facility] Comment on above: Performed By: #### L 501.1105, L101.9900, L501.6710, L500.3400, L100.0100 #### [facility] [address] [place], [address] Monocytes/100 WBC (Bld) 7.4 % Normal 0-10 [facility] Comment on above: Performed By: #### L 501.1105, L101.9900, L501.6710, L500.3400, L100.0100 #### [facility] [address] [place], [address] Neutrophils/100 WBC (Bld) 62.1 % Normal 47-70 [facility] Comment on above: Performed By: #### L 501.1105, L101.9900, L501.6710, L500.3400, L100.0100 #### [facility] [address] [place], [address] Nucleated RBC (Bld) [#/Vol] 0 10*3/uL Normal 0-5 [facility] Comment on above: Performed By: #### L 501.1105, L101.9900, L501.6710, L500.3400, L100.0100 #### [facility] [address] [place], [address] Platelet mean volume (Bld) [Entitic vol] 9.5 fL Normal 6.2-12.0 [facility] Comment on above: Performed By: #### L 501.1105, L101.9900, L501.6710, L500.3400, L100.0100 #### [facility] [address] [place], [address] Platelets (Bld) [#/Vol] 318 10*3/uL Normal 150-450 [facility] Comment on above: Performed By: #### L 501.1105, L101.9900, L501.6710, L500.3400, L100.0100 #### [facility] [address] [place], [address] RBC (Bld) [#/Vol] 3.76 10*6/uL Low 4.2-5.4 [facility] Comment on above: Performed By: #### L 501.1105, L101.9900, L501.6710, L500.3400, L100.0100 #### [facility] [address] [place], [address] RDW SD 45.2 fl High 35.1-43.9 [facility] Comment on above: Performed By: #### L 501.1105, L101.9900, L501.6710, L500.3400, L100.0100 #### [facility] [address] [place], [address] WBC (Bld) [#/Vol] 6.7 10*3/uL Normal 4.4-11.0 [facility] Comment on above: Performed By: #### L 501.1105, L101.9900, L501.6710, L500.3400, L100.0100 #### [facility] [address] [place], [address] CRPon 11-07-2024 C-REACTIVE PROT 7.96 mg/L High 0.0-3.0 [facility] Comment on above: Performed By: #### L 501.1105, L101.9900, L501.6710, L500.3400, L100.0100 #### [facility] [address] [place], [place], [id number] CRP [Mass/Vol]Ordered By: ME KEYONA BOLES on 11-07-2024 C-Reactive Protein Extended Range 7.96 mg/L High 0.0-3.0 [facility] Eosinophil percentageOrdered By: STEVEN BOLES on 11-07-2024 Eosinophils/100 WBC (Bld) 2.1 % 0-5 [facility] Erythrocyte Sed Rateon 11-07 SED RATE 8 mm/hr Normal 0-30 [facility] Comment on above: Performed By: #### L 501.1105, L101.9900, L501.6710, L500.3400, L100.0100 #### [facility] [address] [place], [place], [id number] Erythrocyte distribution wid th (RBC) [Ratio]Ordered By: STEVEN BOLES on 11-07-2024 Erythrocyte distribution width (RBC) [Entitic vol] 45.2 fL High 35.1-43.9 [facility] Erythrocyte distribution wid th ratioOrdered By: STEVEN BOLES on 11-07-2024 Erythrocyte distribution width (RBC) [Ratio] 12.7 % 11.6-14.6 [facility] Erythrocyte distribution wid th standard deviationOrdered By: STEVEN BOLES on 11-07-2024 Erythrocyte distribution width (RBC) [Ratio] 45.2 fl High 35.1-43.9 [facility] Erythrocyte sedimentation ra teOrdered By: STEVEN BOLES on 11-07-2024 ESR (Bld) [Velocity] 8 mm/h 0-30 [facility] GFR/1.73 sq M.predicted leann g non-blacks MDRD (S/P/Bld) [Vol rate/Area]Ordered By: STEVEN BOLES on 11-07-2024 Estimated GFR (MDRD) Non-Af Amer 95 >60 [facility] Comment on above: mL/min/1.73m2 CKD-EP I Creatinine Equation (2020) Glomerular filtration rate ( GFR) estimation/1.73 sq m using serum, plasma, or whole bOrdered By: STEVEN BOLES on 11-07-2024 GFR/1.73 sq M.predicted among non-blacks MDRD (S/P/Bld) [Vol rate/Area] 95 mL/min/{1.73_m2} >60 [facility] Comment on above: mL/min/1.73m2 CKD-EP I Creatinine Equation (2020) Hematocrit Auto (Bld) [Volum e fraction]Ordered By: STEVEN BOLES on 11-07-2024 Hematocrit (Bld) [Volume fraction] 36.6 % Low 37-47 [facility] Hemoglobin measurementOrdere d By: STEVEN BOLES on 11-07-2024 Hemoglobin (Bld) [Mass/Vol] 11.9 g/dL Low 12.0-15.0 [facility] Immature granulocytes/100 WB C Auto (Bld)Ordered By: STEVEN BOLES on 11-07-2024 Immature granulocytes/100 WBC (Bld) 0.400 % 0.0-0.9 [facility] Comment on above: IG% - Immature Granu locytes (promyelocytes, myelocytes and metamyelocytes) > 1% indicates that a LEFT SHIFT is Present. Laboratory - Chemistry and C hemistry - challengeOrdered By: STEVEN BOLES on 11-07-2024 AST [Catalytic activity/Vol] 16 U/L <32 [facility] Liver Profileon 11-07-2024 Albumin [Mass/Vol] 4.1 g/dL Normal 3.5-5.0 [facility] Comment on above: Performed By: #### L 501.1105, L101.9900, L501.6710, L500.3400, L100.0100 #### [facility] [address] [place], [place], [id number] ALK PHOS 63 U/L Normal 35-104 [facility] Comment on above: Performed By: #### L 501.1105, L101.9900, L501.6710, L500.3400, L100.0100 #### [facility] [address] [place], [address] ALT [Catalytic activity/Vol] 18 U/L Normal <=34 [facility] Comment on above: Performed By: #### L 501.1105, L101.9900, L501.6710, L500.3400, L100.0100 #### [facility] [address] [place], [address] AST [Catalytic activity/Vol] 16 U/L Normal <=31 [facility] Comment on above: Performed By: #### L 501.1105, L101.9900, L501.6710, L500.3400, L100.0100 #### [facility] [address] [place], [address] Bilirubin [Mass/Vol] 0.29 mg/dL Normal 0.00-1.30 [facility] Comment on above: Performed By: #### L 501.1105, L101.9900, L501.6710, L500.3400, L100.0100 #### [facility] [address] [place], [address] Bilirubin.direct [Mass/Vol] 0.12 mg/dL Normal 0.00-0.30 [facility] Comment on above: Performed By: #### L 501.1105, L101.9900, L501.6710, L500.3400, L100.0100 #### [facility] [address] [place], [address] Globulin (S) [Mass/Vol] 2.3 g/dL Normal 2.2-4.2 [facility] Comment on above: Performed By: #### L 501.1105, L101.9900, L501.6710, L500.3400, L100.0100 #### [facility] [address] [place], [address] T PROT 6.4 g/dL Normal 5.9-8.4 [facility] Comment on above: Performed By: #### L 501.1105, L101.9900, L501.6710, L500.3400, L100.0100 #### [facility] [address] [place], [address] Lymphocytes Auto (Unsp spec) [#/Vol]Ordered By: STEVEN BOLES on 11-07-2024 Lymphocytes (Bld) [#/Vol] 1.84 10*3/uL 0.83-4.51 [facility] Lymphocytes/100 WBC Auto (Un sp spec)Ordered By: STEVEN BOLES on 11-07-2024 Lymphocytes/100 WBC (Bld) 27.3 % 19-41 [facility] MCV (mean corpuscular volume ) determinationOrdered By: STEVEN BOLES on 11-07-2024 MCV (RBC) [Entitic vol] 97.3 fL 81-99 [facility] Mean corpuscular hemoglobin (MCH) determinationOrdered By: STEVEN BOLES on 11-07-2024 MCH (RBC) [Entitic mass] 31.6 pg 27.0-32.0 [facility] Mean corpuscular hemoglobin concentration (MCHC) determinationOrdered By: STEVEN BOLES on 11-07-2024 MCHC (RBC) [Mass/Vol] 32.5 g/dL 32-36 [facility] Mean platelet volume determi nationOrdered By: STEVEN BOLES on 11-07-2024 Platelet mean volume (Bld) [Entitic vol] 9.5 fL 6.2-12.0 [facility] Monocyte percentageOrdered B y: STEVEN BOLES on 11-07-2024 Monocytes/100 WBC (Bld) 7.4 % 0-10 [facility] Neutrophil percentageOrdered By: STEVEN BOLES on 11-07-2024 Neutrophils/100 WBC (Bld) 62.1 % 47-70 [facility] Nucleated red blood cell per centageOrdered By: STEVEN BOLES on 11-07-2024 Nucleated RBC/100 WBC (Bld) [Ratio] 0 % 0-5 [facility] Platelet countOrdered By: ME KEYONA BOLES on 11-07-2024 Platelets (Bld) [#/Vol] 318 10*3/uL 150-450 [facility] RBC Auto (Bld) [#/Vol]Ordere d By: STEVEN BOLES on 11-07-2024 RBC (Bld) [#/Vol] 3.76 10*6/uL Low 4.2-5.4 [facility] Serum Creatinine AND GFRon 0 11-07-2024 Creatinine [Mass/Vol] 0.80 mg/dL Normal 0.70-1.20 [facility] Comment on above: Performed By: #### L 501.1105, L101.9900, L501.6710, L500.3400, L100.0100 #### [facility] [address] [place], [place], [address] GFR/1.73 sq M.predicted among non-blacks MDRD (S/P/Bld) [Vol rate/Area] 95 mL/min/{1.73_m2} Normal >60 [facility] Comment on above: Result Comment: mL/m in/1.73m2 CKD-EPI Creatinine Equation (2020) Performed By: #### L 501.1105, L101.9900, L501.6710, L500.3400, L100.0100 #### [facility] [address] [place], [place], [address] Serum creatinine measurement (mass/volume)Ordered By: STEVEN BOLES on 11-07-2024 Creatinine [Mass/Vol] 0.80 mg/dL 0.70-1.20 [facility] Serum globulin measurementOr dered By: STEVEN BOLES on 11-07-2024 Globulin (S) [Mass/Vol] 2.3 g/dL 2.2-4.2 [facility] Serum or plasma C reactive p rotein measurement (mass/volume)Ordered By: STEVEN BOLES on 11-07-2024 CRP [Mass/Vol] 7.96 mg/L High 0.0-3.0 [facility] Serum or plasma alanine zuñiga otransferase (ALT) measurementOrdered By: STEVEN BOLES on 11-07-2024 ALT [Catalytic activity/Vol] 18 U/L <35 [facility] Serum or plasma albumin sancho urement (mass/volume)Ordered By: STEVEN BOLES on 11-07-2024 Albumin [Mass/Vol] 4.1 g/dL 3.5-5.0 [facility] Serum or plasma alkaline nallely sphatase measurementOrdered By: STEVEN BOLES on 11-07-2024 ALP [Catalytic activity/Vol] 63 U/L 35-104 [facility] T4 freeOrdered By: Cali Lou on 11-07-2024 Free T4 [Mass/Vol] 1.00 ng/dL 0.76-1.46 [facility] TSH DL <= 0.005 mIU/L QnOrde red By: Cali Lou on 11-07-2024 Thyroid Stimulating Hormone (TSH) 0.729 uIU/mL 0.300-4.200 [facility] TSH Qn 0.729 uIU/mL 0.300-4.200 [facility] Total proteinOrdered By: IRENE BOLES on 11-07-2024 Protein [Mass/Vol] 6.4 g/dL 5.9-8.4 [facility] White blood cell (WBC) count Ordered By: STEVEN BOLES on 11-07-2024 WBC (Bld) [#/Vol] 6.7 10*3/uL 4.4-11.0 [facility] Internal Medicine Office Vis itojamee 10-23-2024 Internal Medicine Office Visit [facility] [address] [place] [address] [place], [place] [address] OFFICE VISIT Date of Service: 10/23/24 MR#: [id number] Acct: [id number] Name: ALMA ADEN Snow Rep #: [id number] : 1980 Provider: Dr. 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 Normal [facility] Hemoglobin A1con 10-10-2024 HbA1c (Bld) [Mass fraction] 5.9 % Normal <=5.6 [facility] Comment on above: Performed By: #### L 501.9985 ####[facility] [address] [place], [place], [address] Hemoglobin A1c percentageOrd ered By: Wyatt Marcelo on 10-10-2024 HbA1c (Bld) [Mass fraction] 5.9 % >5.7 [facility] Urgent Care Visit Reporton 0 08-31-2024 Urgent Care Visit Report [facility] 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 Normal [facility] Absolute neutrophil countOrd ered By: STEVEN BOLES on 07-23-2024 Neutrophils (Bld) [#/Vol] 3.3 10*3/uL 2.0-7.7 [facility] Basophil percentageOrdered B y: STEVEN BOLES on 07-23-2024 Basophils/100 WBC (Bld) 0.5 % 0-1 [facility] Bilirubin directOrdered By: STEVEN BOLES on 07-23-2024 Bilirubin.direct [Mass/Vol] 0.10 mg/dL 0.00-0.30 [facility] Bilirubin, totalOrdered By: STEVEN BOLES on 07-23-2024 Bilirubin [Mass/Vol] 0.40 mg/dL 0.20-1.00 [facility] Comment on above: For patients on eltr ombopag therapy, use of Dimension [place] TBIL is not recommended. C-reactive protein measureme nt by high sensitivity methodOrdered By: STEVEN BOLES on 07-23-2024 C-Reactive Protein Extended Range 4.63 mg/L High 0.0-3.0 [facility] Comment on above: C-Reactive Protein ( CRP) provides useful information for thediagnosis, therapy and monitoring of inflammatory processesand associated diseases. For the evaluation of Relative Riskfor Cardiovascular Disease, a High Sensitivity CRP (HSCRP)should be ordered. CBC W/Diff, Automatedon Absolute Lymph 1.81 X10 3/uL Normal 0.83-4.51 [facility] Comment on above: Performed By: #### L 501.1105, L500.3400, L100.0100, L101.9900, L501.6710 ####[facility] [address] [place], [address] Absolute Neut 3.3 X10 3/uL Normal 2.0-7.7 [facility] Comment on above: Performed By: #### L 501.1105, L500.3400, L100.0100, L101.9900, L501.6710 ####[facility] [address] [place], [address] Basophils/100 WBC (Bld) 0.5 % Normal 0-1 [facility] Comment on above: Performed By: #### L 501.1105, L500.3400, L100.0100, L101.9900, L501.6710 ####[facility] [address] [place], [address] Eosinophils/100 WBC (Bld) 1.8 % Normal 0-5 [facility] Comment on above: Performed By: #### L 501.1105, L500.3400, L100.0100, L101.9900, L501.6710 ####[facility] [address] [place], [address] Erythrocyte distribution width (RBC) [Ratio] 13.4 % Normal 11.6-14.6 [facility] Comment on above: Performed By: #### L 501.1105, L500.3400, L100.0100, L101.9900, L501.6710 ####[facility] [address] [place], [address] Hematocrit (Bld) [Volume fraction] 35.1 % Low 37-47 [facility] Comment on above: Performed By: #### L 501.1105, L500.3400, L100.0100, L101.9900, L501.6710 ####[facility] [address] [place], [address] Hemoglobin (Bld) [Mass/Vol] 11.5 g/dL Low 12.0-15.0 [facility] Comment on above: Performed By: #### L 501.1105, L500.3400, L100.0100, L101.9900, L501.6710 ####[facility] [address] [place], [address] IG% 0.200 Normal 0.0-0.9 [facility] Comment on above: Result Comment: IG% - Immature Granulocytes (promyelocytes, myelocytes and metamyelocytes) > 1% indicates that a LEFT SHIFT is Present. Performed By: #### L 501.1105, L500.3400, L100.0100, L101.9900, L501.6710 ####[facility] [address] [place], [address] Lymphocytes/100 WBC (Bld) 31.9 % Normal 19-41 [facility] Comment on above: Performed By: #### L 501.1105, L500.3400, L100.0100, L101.9900, L501.6710 ####[facility] [address] [place], [address] MCH (RBC) [Entitic mass] 31.4 pg Normal 27.0-32.0 [facility] Comment on above: Performed By: #### L 501.1105, L500.3400, L100.0100, L101.9900, L501.6710 ####[facility] [address] [place], [address] MCHC (RBC) [Mass/Vol] 32.8 g/dL Normal 32-36 [facility] Comment on above: Performed By: #### L 501.1105, L500.3400, L100.0100, L101.9900, L501.6710 ####[facility] [address] [place], [address] MCV (RBC) [Entitic vol] 95.9 fL Normal 81-99 [facility] Comment on above: Performed By: #### L 501.1105, L500.3400, L100.0100, L101.9900, L501.6710 ####[facility] [address] [place], [address] Monocytes/100 WBC (Bld) 8.1 % Normal 0-10 [facility] Comment on above: Performed By: #### L 501.1105, L500.3400, L100.0100, L101.9900, L501.6710 ####[facility] [address] [place], [address] Neutrophils/100 WBC (Bld) 57.5 % Normal 47-70 [facility] Comment on above: Performed By: #### L 501.1105, L500.3400, L100.0100, L101.9900, L501.6710 ####[facility] [address] [place], [address] Nucleated RBC (Bld) [#/Vol] 0 10*3/uL Normal 0-5 [facility] Comment on above: Performed By: #### L 501.1105, L500.3400, L100.0100, L101.9900, L501.6710 ####[facility] [address] [place], [address] Platelet mean volume (Bld) [Entitic vol] 9.6 fL Normal 6.2-12.0 [facility] Comment on above: Performed By: #### L 501.1105, L500.3400, L100.0100, L101.9900, L501.6710 ####[facility] [address] [place], [address] Platelets (Bld) [#/Vol] 329 10*3/uL Normal 150-450 [facility] Comment on above: Performed By: #### L 501.1105, L500.3400, L100.0100, L101.9900, L501.6710 ####[facility] [address] [place], [address] RBC (Bld) [#/Vol] 3.66 10*6/uL Low 4.2-5.4 [facility] Comment on above: Performed By: #### L 501.1105, L500.3400, L100.0100, L101.9900, L501.6710 ####[facility] [address] [place], [address] RDW SD 47.3 fl High 35.1-43.9 [facility] Comment on above: Performed By: #### L 501.1105, L500.3400, L100.0100, L101.9900, L501.6710 ####[facility] [address] [place], [address] WBC (Bld) [#/Vol] 5.7 10*3/uL Normal 4.4-11.0 [facility] Comment on above: Performed By: #### L 501.1105, L500.3400, L100.0100, L101.9900, L501.6710 ####[facility] [address] [place], [address] CRPon 07-23-2024 C-REACTIVE PROT 4.63 mg/L High 0.0-3.0 [facility] Comment on above: Result Comment: C-Re active Protein (CRP) provides useful information for the diagnosis, therapy and monitoring of inflammatory processes and associated diseases. For the evaluation of Relative Risk for Cardiovascular Disease, a High Sensitivity CRP (HSCRP) should be ordered. Performed By: #### L 501.1105, L500.3400, L100.0100, L101.9900, L501.6710 ####[facility] [address] [place], [address] Eosinophil percentageOrdered By: STEVEN BOLES on 07-23-2024 Eosinophils/100 WBC (Bld) 1.8 % 0-5 [facility] Erythrocyte Sed Rateon 07-23 SED RATE 5 mm/hr Normal 0-30 [facility] Comment on above: Performed By: #### L 501.1105, L500.3400, L100.0100, L101.9900, L501.6710 ####[facility] [address] [place], [address] Erythrocyte distribution wid th ratioOrdered By: STEVEN BOLES on 07-23-2024 Erythrocyte distribution width (RBC) [Ratio] 13.4 % 11.6-14.6 [facility] Erythrocyte distribution wid th standard deviationOrdered By: STEVEN BOLES on 07-23-2024 Erythrocyte distribution width (RBC) [Entitic vol] 47.3 fL High 35.1-43.9 [facility] Erythrocyte sedimentation ra teOrdered By: STEVEN BOLES on 07-23-2024 ESR (Bld) [Velocity] 5 mm/h 0-30 [facility] Estimated glomerular filtrat ion rate (GFR) AmericanOrdered By: STEVEN BOLES on 07-23-2024 Estimated GFR (MDRD) Amer 103 mL/min >60 [facility] Comment on above: GFR Calc Glomerular filtration rate ( GFR) estimationOrdered By: STEVEN BOLES on 07-23-2024 Estimated GFR (MDRD) Non-Af Amer 85 mL/min >60 [facility] Comment on above: Non- GFR Calc Hematocrit Auto (Bld) [Volum e fraction]Ordered By: STEVEN BOLES on 07-23-2024 Hematocrit (Bld) [Volume fraction] 35.1 % Low 37-47 [facility] Hemoglobin measurementOrdere d By: STEVEN BOLES on 07-23-2024 Hemoglobin (Bld) [Mass/Vol] 11.5 g/dL Low 12.0-15.0 [facility] Immature granulocytes/100 WB C Auto (Bld)Ordered By: STEVEN BOLES on 07-23-2024 Immature granulocytes/100 WBC (Bld) 0.200 % 0.0-0.9 [facility] Comment on above: IG% - Immature Granu locytes (promyelocytes, myelocytes and metamyelocytes) > 1% indicates that a LEFT SHIFT is Present. Laboratory - Chemistry and C hemistry - challengeOrdered By: STEVEN BOLES on 07-23-2024 AST [Catalytic activity/Vol] 23 U/L 15-37 [facility] Liver Profileon 07-23-2024 Albumin [Mass/Vol] 3.8 g/dL Normal 3.2-5.0 [facility] Comment on above: Performed By: #### L 501.1105, L500.3400, L100.0100, L101.9900, L501.6710 ####[facility] [address] [place], [address] ALK P 61 U/L Normal 45-117 [facility] Comment on above: Performed By: #### L 501.1105, L500.3400, L100.0100, L101.9900, L501.6710 ####[facility] [address] [place], [address] ALT [Catalytic activity/Vol] 28 U/L Normal 13-56 [facility] Comment on above: Performed By: #### L 501.1105, L500.3400, L100.0100, L101.9900, L501.6710 ####[facility] [address] [place], [address] AST [Catalytic activity/Vol] 23 U/L Normal 15-37 [facility] Comment on above: Performed By: #### L 501.1105, L500.3400, L100.0100, L101.9900, L501.6710 ####[facility] [address] [place], [address] Bilirubin [Mass/Vol] 0.40 mg/dL Normal 0.20-1.00 [facility] Comment on above: Result Comment: For patients on eltrombopag therapy, use of Dimension [place] TBIL is not recommended. Performed By: #### L 501.1105, L500.3400, L100.0100, L101.9900, L501.6710 ####[facility] [address] [place], [address] Bilirubin.direct [Mass/Vol] 0.10 mg/dL Normal 0.00-0.30 [facility] Comment on above: Performed By: #### L 501.1105, L500.3400, L100.0100, L101.9900, L501.6710 ####[facility] [address] [place], [address] Globulin (S) [Mass/Vol] 3.7 g/dL Normal 2.2-4.2 [facility] Comment on above: Performed By: #### L 501.1105, L500.3400, L100.0100, L101.9900, L501.6710 ####[facility] [address] [place], [address] T PROT 7.5 g/dL Normal 6.4-8.2 [facility] Comment on above: Performed By: #### L 501.1105, L500.3400, L100.0100, L101.9900, L501.6710 ####[facility] [address] [place], [address] Lymphocytes Auto (Unsp spec) [#/Vol]Ordered By: STEVEN BOLES on 07-23-2024 Lymphocytes (Bld) [#/Vol] 1.81 10*3/uL 0.83-4.51 [facility] Lymphocytes/100 WBC Auto (Un sp spec)Ordered By: STEVEN BOLES on 07-23-2024 Lymphocytes/100 WBC (Bld) 31.9 % 19-41 [facility] MCV (mean corpuscular volume ) determinationOrdered By: STEVEN BOLES on 07-23-2024 MCV (RBC) [Entitic vol] 95.9 fL 81-99 [facility] Mean corpuscular hemoglobin (MCH) determinationOrdered By: STEVEN BOLES on 07-23-2024 MCH (RBC) [Entitic mass] 31.4 pg 27.0-32.0 [facility] Mean corpuscular hemoglobin concentration (MCHC) determinationOrdered By: STEVEN BOLES on 07-23-2024 MCHC (RBC) [Mass/Vol] 32.8 g/dL 32-36 [facility] Mean platelet volume determi nationOrdered By: STEVEN BOLES on 07-23-2024 Platelet mean volume (Bld) [Entitic vol] 9.6 fL 6.2-12.0 [facility] Monocyte percentageOrdered B y: STEVEN BOLES on 07-23-2024 Monocytes/100 WBC (Bld) 8.1 % 0-10 [facility] Neutrophil percentageOrdered By: STEVEN BOLES on 07-23-2024 Neutrophils/100 WBC (Bld) 57.5 % 47-70 [facility] Nucleated red blood cell per centageOrdered By: STEVEN BOLES on 07-23-2024 Nucleated RBC/100 WBC (Bld) [Ratio] 0 % 0-5 [facility] Platelet countOrdered By: ME KEYONA BOLES on 07-23-2024 Platelets (Bld) [#/Vol] 329 10*3/uL 150-450 [facility] RBC Auto (Bld) [#/Vol]Ordere d By: STEVEN BOLES on 07-23-2024 RBC (Bld) [#/Vol] 3.66 10*6/uL Low 4.2-5.4 [facility] Serum Creatinine AND GFRon 0 07-23-2024 Creatinine [Mass/Vol] 0.79 mg/dL Normal 0.55-1.02 [facility] Comment on above: Result Comment: The validity of the calculated GFR GFRAA in patients over 70 years has not been determined. Clinical correlation is essential. Performed By: #### L 501.1105, L500.3400, L100.0100, L101.9900, L501.6710 ####[facility] [address] [place], [place], [id number] EST GFR - AA 103 mL/min Normal >60 [facility] Comment on above: Result Comment: Afri can Tongan GFR Calc Performed By: #### L 501.1105, L500.3400, L100.0100, L101.9900, L501.6710 ####[facility] [address] [place], [place], [address](445) GFR/1.73 sq M.predicted among non-blacks MDRD (S/P/Bld) [Vol rate/Area] 85 mL/min/{1.73_m2} Normal >60 [facility] Comment on above: Result Comment: Non- GFR Calc Performed By: #### L 501.1105, L500.3400, L100.0100, L101.9900, L501.6710 ####[facility] [address] [place], [address] Serum globulin measurementOr dered By: STEVEN BOLES on 07-23-2024 Globulin (S) [Mass/Vol] 3.7 g/dL 2.2-4.2 [facility] Serum or plasma alanine zuñiga otransferase (ALT) measurementOrdered By: STEVEN BOLES on 07-23-2024 ALT [Catalytic activity/Vol] 28 U/L 13-56 [facility] Serum or plasma albumin sancho urement (mass/volume)Ordered By: STEVEN BOLES on 07-23-2024 Albumin [Mass/Vol] 3.8 g/dL 3.2-5.0 [facility] Serum or plasma alkaline nallely sphatase measurementOrdered By: STEVEN BOLES on 07-23-2024 ALP [Catalytic activity/Vol] 61 U/L 45-117 [facility] Serum or plasma creatinine m easurement (mass/volume)Ordered By: STEVEN BOLES on 07-23-2024 Creatinine [Mass/Vol] 0.79 mg/dL 0.55-1.02 [facility] Comment on above: The validity of the calculated GFR & GFRAA in patients over 70 years has not been determined. Clinical correlation is essential. Total proteinOrdered By: IRENE BOLES on 07-23-2024 Protein [Mass/Vol] 7.5 g/dL 6.4-8.2 [facility] White blood cell (WBC) count Ordered By: STEVEN BOLES on 07-23-2024 WBC (Bld) [#/Vol] 5.7 10*3/uL 4.4-11.0 [facility] Inital Evaluation (1) - PTon 07-03-2024 Inital Evaluation (1) - PT [facility] Physical Therapy [facility] [address] [place] [address]. [address] [place] [address] / REHABILITATION SERVICES INITIAL EVALUATION MR#: [id number] Acct: [id number] Name: ALMA ADEN Rep #: [id number] : 1980 43 From: Anatoliy Boudreaux DPT Referring Dr.: ISIDRA Avendano Status: REG RCR Insurance: [employer] SELF PAY INSURANCE Patient's Visit Information [...] and To (more content not included)... Normal [facility] Spine Lumbar (Routine)on Spine Lumbar (Routine) [facility] Imaging Services [address] [place] [address] Spine Lumbar (Routine) MR#: [id number] Acct: [id number] Name: ALMA ADEN Rep #: [id number] : 1980 F 43 From: Abad Juarez MD PCP: Dr. Wyatt Marcelo MD Status: REG CLI Study: Spine Lumbar (Routine) Date of Exam: 05/27/24 Exam# [id number] Ordering Dr: Nimco Gonzalez [id number] STUDY: MRI LUMBAR SPINE WITHOUT CONTRAST REASON [...] Electronically Signed: Abad Juarez MD at 11:23 [facility] , CC: ISIDRA Avendano; Dr. Wyatt Marcelo MD Set Builder: Signed Normal [facility] L/S Spine Bending Flex/Davis 05-10-2024 L/S Spine Bending Flex/Ext [facility] Imaging Services [address] [place] [address] L/S Spine Bending Flex/Ext MR#: [id number] Acct: [id number] Name: ALMA ADEN Rep #: [id number] : 1980 F 43 From: Devin Davis DO PCP: Dr. Wyatt Marcelo MD Status: REG CLI Study: L/S Spine Bending Flex/Ext Date of Exam: 05/10 Exam# [id number] Ordering Dr: Nimco Gonzalez [id number] STUDY: X-RAY - LUMBAR SPINE REASON FOR [...] 20:14 EDT Reading Location ID and State: [facility] / [place] Tel [phone], Service support , CC: ISIDRA Avendano; Dr. 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 Part of today???s visit was documented by [...] on getti (more content not included)... Normal [facility] L/S Spine Min 4 Viewson 04-17 L/S Spine Min 4 Views [facility] Imaging Services [address] [place] [address] L/S Spine Min 4 Views MR#: [id number] Acct: [id number] Name: ALMA ADEN Rep #: [id number] : 1980 F 43 From: Juan R Rasmussen PCP: Dr. Wyatt Marcelo MD Status: REG CLI Study: L/S Spine Min 4 Views Date of Exam: 05/09/24 Exam# [id number] Ordering Dr: Nimco Gonzalez [id number] EXAM: XR LUMBOSACRAL SPINE, 4 OR 5 [...] CC: ISIDRA Avendano; Dr. Wyatt Marcelo MD Set Builder: Signed Normal [facility] Dexa Bone Density Studyon Dexa Bone Density Study [facility] Imaging Services [address] [place] [address] Dexa Bone Density Study MR#: [id number] Acct: [id number] Name: ALMA ADEN Rep #: [id number] : 1980 F 43 From: Sukhdeep mosqueda MD PCP: Dr. Wyatt Marcelo MD Status: [facility] Study: Dexa Bone Density Study Date of Exam: 04/30/24 Exam# [id number] Ordering Dr: Estrellita Coleman KILN TRANSFER OPERATOR-C [id number] STUDY: DUAL ENERGY X-RAY ABSORPTIOMETRY / DXA [...] CC: ZAFAR Coleman; Dr. Wyatt Marcelo MD Set Builder: Signed Normal [facility] CBC, Employeeon 04-25-2024 Absolute Lymph 1.71 X10 3/uL Normal 0.83-4.51 [facility] Comment on above: Performed By: #### L 500.2900, L100.0200, L400.0100 ####[facility] [address] [place], [address] Absolute Neut 2.6 X10 3/uL Normal 2.0-7.7 [facility] Comment on above: Performed By: #### L 500.2900, L100.0200, L400.0100 ####[facility] [address] [place], [address] Basophils/100 WBC (Bld) 1.1 % High 0-1 [facility] Comment on above: Performed By: #### L 500.2900, L100.0200, L400.0100 ####[facility] [address] [place], [address] Eosinophils/100 WBC (Bld) 1.7 % Normal 0-5 [facility] Comment on above: Performed By: #### L 500.2900, L100.0200, L400.0100 ####[facility] [address] [place], [address] Erythrocyte distribution width (RBC) [Ratio] 12.0 % Normal 11.6-14.6 [facility] Comment on above: Performed By: #### L 500.2900, L100.0200, L400.0100 ####[facility] [address] [place], [address] Hematocrit (Bld) [Volume fraction] 37.0 % Normal 37-47 [facility] Comment on above: Performed By: #### L 500.2900, L100.0200, L400.0100 ####[facility] [address] [place], [address] Hemoglobin (Bld) [Mass/Vol] 12.0 g/dL Normal 12.0-15.0 [facility] Comment on above: Performed By: #### L 500.2900, L100.0200, L400.0100 ####[facility] [address] [place], [address] Lymphocytes/100 WBC (Bld) 36.5 % Normal 19-41 [facility] Comment on above: Performed By: #### L 500.2900, L100.0200, L400.0100 ####[facility] [address] [place], [address] MCH (RBC) [Entitic mass] 31.3 pg Normal 27.0-32.0 [facility] Comment on above: Performed By: #### L 500.2900, L100.0200, L400.0100 ####[facility] [address] [place], [address] MCHC (RBC) [Mass/Vol] 32.4 g/dL Normal 32-36 [facility] Comment on above: Performed By: #### L 500.2900, L100.0200, L400.0100 ####[facility] [address] [place], [address] MCV (RBC) [Entitic vol] 96.6 fL Normal 81-99 [facility] Comment on above: Performed By: #### L 500.2900, L100.0200, L400.0100 ####[facility] [address] [place], [address] Monocytes/100 WBC (Bld) 6.0 % Normal 0-10 [facility] Comment on above: Performed By: #### L 500.2900, L100.0200, L400.0100 ####[facility] [address] [place], [address] Neutrophils/100 WBC (Bld) 54.3 % Normal 47-70 [facility] Comment on above: Performed By: #### L 500.2900, L100.0200, L400.0100 ####[facility] [address] [place], [address] NRBC # 0.00 10 3/uL Normal 0-5 [facility] Comment on above: Performed By: #### L 500.2900, L100.0200, L400.0100 ####[facility] [address] [place], [address] Nucleated RBC (Bld) [#/Vol] 0 10*3/uL Normal 0-5 [facility] Comment on above: Performed By: #### L 500.2900, L100.0200, L400.0100 ####[facility] [address] [place], [address] Platelet mean volume (Bld) [Entitic vol] 9.2 fL Normal 6.2-12.0 [facility] Comment on above: Performed By: #### L 500.2900, L100.0200, L400.0100 ####[facility] [address] [place], [address] Platelets (Bld) [#/Vol] 308 10*3/uL Normal 150-450 [facility] Comment on above: Performed By: #### L 500.2900, L100.0200, L400.0100 ####[facility] [address] [place], [address] RBC (Bld) [#/Vol] 3.83 10*6/uL Low 4.2-5.4 [facility] Comment on above: Performed By: #### L 500.2900, L100.0200, L400.0100 ####[facility] [address] [place], [address] RDW SD 42.5 fl Normal 35.1-43.9 [facility] Comment on above: Performed By: #### L 500.2900, L100.0200, L400.0100 ####[facility] [address] [place], [address] WBC (Bld) [#/Vol] 4.7 10*3/uL Normal 4.4-11.0 [facility] Comment on above: Performed By: #### L 500.2900, L100.0200, L400.0100 ####[facility] [address] [place], [address] Employee Profileon 4 Albumin [Mass/Vol] 3.7 g/dL Normal 3.2-5.0 [facility] Comment on above: Performed By: #### L 500.2900, L100.0200, L400.0100 ####[facility] [address] [place], [address] Albumin/Globulin [Mass ratio] 1.0 {ratio} Normal 0.9-2.4 [facility] Comment on above: Performed By: #### L 500.2900, L100.0200, L400.0100 ####[facility] [address] [place], [address] ALK P 59 U/L Normal 45-117 [facility] Comment on above: Performed By: #### L 500.2900, L100.0200, L400.0100 ####[facility] [address] [place], [address] ALT [Catalytic activity/Vol] 19 U/L Normal 13-56 [facility] Comment on above: Performed By: #### L 500.2900, L100.0200, L400.0100 ####[facility] [address] [place], [address] AST [Catalytic activity/Vol] 13 U/L Low 15-37 [facility] Comment on above: Performed By: #### L 500.2900, L100.0200, L400.0100 ####[facility] [address] [place], [address] Bilirubin [Mass/Vol] 0.30 mg/dL Normal 0.20-1.00 [facility] Comment on above: Result Comment: For patients on eltrombopag therapy, use of Dimension [place] TBIL is not recommended. Performed By: #### L 500.2900, L100.0200, L400.0100 ####[facility] [address] [place], [address] Bilirubin.direct [Mass/Vol] 0.08 mg/dL Normal 0.00-0.30 [facility] Comment on above: Performed By: #### L 500.2900, L100.0200, L400.0100 ####[facility] [address] [place], [address] BUN/CRE 16.3 RATIO Normal 10-20 [facility] Comment on above: Performed By: #### L 500.2900, L100.0200, L400.0100 ####[facility] [address] [place], [address] CA,Total 9.9 mg/dL Normal 8.5-10.1 [facility] Comment on above: Performed By: #### L 500.2900, L100.0200, L400.0100 ####[facility] [address] [place], [address] Chloride [Moles/Vol] 107 mmol/L Normal 98-107 [facility] Comment on above: Performed By: #### L 500.2900, L100.0200, L400.0100 ####[facility] [address] [place], [address] CHOL:HDL 3.50 Normal [facility] Comment on above: Performed By: #### L 500.2900, L100.0200, L400.0100 ####[facility] [address] [place], [address] Cholesterol [Mass/Vol] 227 mg/dL High 200 [facility] Comment on above: Result Comment: <200 mg/dL Desirable 200-240 mg/dL Borderline >240 mg/dL High Risk Performed By: #### L 500.2900, L100.0200, L400.0100 ####[facility] [address] [place], [address] Cholesterol in HDL [Mass/Vol] 65 mg/dL Normal [facility] Comment on above: Result Comment: The drugs N-Acetylcysteine and Metamizole may falsely depress this assay. Reference Range HDL <40 mg/dL Low HDL Cholesterol HDL >or= 60 mg/dL High HDL Cholesterol Performed By: #### L 500.2900, L100.0200, L400.0100 ####[facility] [address] [place], [address] Cholesterol in LDL [Mass/Vol] 136 mg/dL High 0-130 [facility] Comment on above: Performed By: #### L 500.2900, L100.0200, L400.0100 ####[facility] [address] [place], [address] Cholesterol in VLDL [Mass/Vol] 26 mg/dL Normal 5-40 [facility] Comment on above: Performed By: #### L 500.2900, L100.0200, L400.0100 ####[facility] [address] [place], [address] CO2 [Moles/Vol] 25.0 mmol/L Normal 21.0-32.0 [facility] Comment on above: Performed By: #### L 500.2900, L100.0200, L400.0100 ####[facility] [address] [place], [address] Creatinine [Mass/Vol] 0.74 mg/dL Normal 0.55-1.02 [facility] Comment on above: Result Comment: The validity of the calculated GFR GFRAA in patients over 70 years has not been determined. Clinical correlation is essential. Performed By: #### L 500.2900, L100.0200, L400.0100 ####[facility] [address] [place], [address] EST GFR - AA 112 mL/min Normal >60 [facility] Comment on above: Result Comment: Afri can Tongan GFR Calc Performed By: #### L 500.2900, L100.0200, L400.0100 ####[facility] [address] [place], [address] GAP 7 Normal 5-15 [facility] Comment on above: Performed By: #### L 500.2900, L100.0200, L400.0100 ####[facility] [address] [place], [address] GFR/1.73 sq M.predicted among non-blacks MDRD (S/P/Bld) [Vol rate/Area] 92 mL/min/{1.73_m2} Normal >60 [facility] Comment on above: Result Comment: Non- GFR Calc Performed By: #### L 500.2900, L100.0200, L400.0100 ####[facility] [address] [place], [address] Globulin (S) [Mass/Vol] 3.7 g/dL Normal 2.2-4.2 [facility] Comment on above: Performed By: #### L 500.2900, L100.0200, L400.0100 ####[facility] [address] [place], [address] Glucose [Mass/Vol] 115 mg/dL High 74-106 [facility] Comment on above: Result Comment: Fast ing Glucose result from 100 to 125 mg/dL suggests IMPAIRED HOMEOSTASIS per A.D.A. criteria. Performed By: #### L 500.2900, L100.0200, L400.0100 ####[facility] [address] [place], [address] LDH 219 U/L Normal 84-246 [facility] Comment on above: Performed By: #### L 500.2900, L100.0200, L400.0100 ####[facility] [address] [place], [address] Phosphate [Mass/Vol] 3.0 mg/dL Normal 2.5-4.9 [facility] Comment on above: Performed By: #### L 500.2900, L100.0200, L400.0100 ####[facility] [address] [place], [address] Potassium [Moles/Vol] 4.2 mmol/L Normal 3.5-5.1 [facility] Comment on above: Performed By: #### L 500.2900, L100.0200, L400.0100 ####[facility] [address] [place], [address] Sodium [Moles/Vol] 139 mmol/L Normal 136-145 [facility] Comment on above: Performed By: #### L 500.2900, L100.0200, L400.0100 ####[facility] [address] [place], [address] T PROT 7.4 g/dL Normal 6.4-8.2 [facility] Comment on above: Performed By: #### L 500.2900, L100.0200, L400.0100 ####[facility] [address] [place], [address] Triglyceride [Mass/Vol] 131 mg/dL Normal [facility] Comment on above: Result Comment: The drugs N-Acetylcysteine and Metamizole may falsely depress this assay. Serum Triglycerides Reference Interval Normal <150 mg/dL Borderline high 150 - 199 mg/dL High 200 - 499 mg/dL Very High > or = 500 mg/dL Performed By: #### L 500.2900, L100.0200, L400.0100 ####[facility] [address] [place], [address] Urea nitrogen [Mass/Vol] 12 mg/dL Normal 7-18 [facility] Comment on above: Performed By: #### L 500.2900, L100.0200, L400.0100 ####[facility] [address] [place], [address] URIC 5.5 mg/dL Normal 2.6-6.0 [facility] Comment on above: Result Comment: The drugs N-Acetylcysteine and Metamizole may falsely depress this assay. Performed By: #### L 500.2900, L100.0200, L400.0100 ####[facility] [address] [place], [address] Internal Medicine Office Vis aisha 04-25-2024 Internal Medicine Office Visit [facility] [address] [place] [address] [place] [address] OFFICE VISIT Date of Service: 04/25/24 MR#: [id number] Acct: [id number] Name: ALMA ADEN Rep #: [id number] : 1980 Provider: Dr. Wyatt mills MD Age/Sex: 43/F Location: [facility] Status: Signed Intake Vital Signs 12/15/23 08:47 03/20/24 09:41 04/25/24 17:02 Height 5 ft 8 in 5 ft 8 in BP 130/84 H Blood Pressure Location Lt brachial Position Sitting Respiration 16 Pulse 78 Pulse Source Monitor Temp 97 F L Temp Source Temporal Pulse Oximetry (%) 99 Oxygen Delivery Method room air Intake Visit Reasons: YEARLY Chief Complaint: annual Drafter Mechanical Required: No Is patient in pain?: No [...] done 5.9% Needs losartan and xanax refilled. 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 No acute concerns at this time. Following up with EMS DIRECTOR and due to her history of hyperparathyroidism, bone density scan was ordered. Positive family history of osteoporosis in her mother. Also history of chronic intermittent steroid use. No recent fractures. A1c done recently at 5.9 up from 5.8. Had been on compounded semaglutide in which she lost 30 pounds however due to cost discontinued. Continues to follow-up with rheumatology at the [facility] (more content not included)... Normal [facility] Urinalysis, Employeeon 04-25 BILIRUBIN URINE Negative Normal Negative [facility] Comment on above: Order Comment: CLEAN CATCH Performed By: #### L 500.2900, L100.0200, L400.0100 ####[facility] [address] [place], [address] Clarity (U) Clear Normal Clear [facility] Comment on above: Order Comment: CLEAN CATCH Performed By: #### L 500.2900, L100.0200, L400.0100 ####[facility] [address] [place], [address] Color (U) Yellow Normal Yellow [facility] Comment on above: Order Comment: CLEAN CATCH Performed By: #### L 500.2900, L100.0200, L400.0100 ####[facility] [address] [place], [address] GLUCOSE, UR Normal Normal Normal [facility] Comment on above: Order Comment: CLEAN CATCH Performed By: #### L 500.2900, L100.0200, L400.0100 ####[facility] [address] [place], [address] KETONE UR Negative Normal Negative [facility] Comment on above: Order Comment: CLEAN CATCH Performed By: #### L 500.2900, L100.0200, L400.0100 ####[facility] [address] [place], [address] LEUK ESTERASE Negative Normal Negative [facility] Comment on above: Order Comment: CLEAN CATCH Performed By: #### L 500.2900, L100.0200, L400.0100 ####[facility] [address] [place], [address] Nitrite Ql (U) Negative Normal Negative [facility] Comment on above: Order Comment: CLEAN CATCH Performed By: #### L 500.2900, L100.0200, L400.0100 ####[facility] [address] [place], [address] OCCULT BLOOD-UR Negative Normal Negative [facility] Comment on above: Order Comment: CLEAN CATCH Performed By: #### L 500.2900, L100.0200, L400.0100 ####[facility] [address] [place], [address] pH UR 6.5 Normal 5.0 - 8.0 [facility] Comment on above: Order Comment: CLEAN CATCH Performed By: #### L 500.2900, L100.0200, L400.0100 ####[facility] [address] [place], [address] PROT DIPSTX Negative Normal Negative [facility] Comment on above: Order Comment: CLEAN CATCH Performed By: #### L 500.2900, L100.0200, L400.0100 ####[facility] [address] [place], [address] SP.GR. DIPSTX 1.010 Normal 1.002-1.030 [facility] Comment on above: Order Comment: CLEAN CATCH Performed By: #### L 500.2900, L100.0200, L400.0100 ####[facility] [address] [place], [address] UROBILI Normal Normal Normal [facility] Comment on above: Order Comment: CLEAN CATCH Performed By: #### L 500.2900, L100.0200, L400.0100 ####[facility] [address] [place], [address] SCRN MAMM (CAD)W/CHRISTOPHER BILATo n 04-02-2024 SCRN MAMM (CAD)W/CHRISTOPHER BILAT [facility] Imaging Services [address] [place] [address] SCRN MAMM (CAD)W/CHRISTOPHER BILAT MR#: [id number] Acct: [id number] Name: ALMA ADEN Rep #: [id number] : 1980 F 43 From: Sukhdeep mosqueda MD PCP: Dr. 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 [id number] Electronically Signed: Sukhdeep Manzano MD at 9:37 EDT , CC: ZAFAR Coleman; Dr. Wyatt Marcelo MD Set Builder: Signed Normal [facility] CBC W/Diff, Automatedon 03-17 Absolute Lymph 2.40 X10 3/uL Normal 0.83-4.51 [facility] Comment on above: Performed By: #### L 501.6710, L500.3400, L101.9900, L100.0100, L501.1105 ####[facility] [address] [place], [address] Absolute Neut 2.7 X10 3/uL Normal 2.0-7.7 [facility] Comment on above: Performed By: #### L 501.6710, L500.3400, L101.9900, L100.0100, L501.1105 ####[facility] [address] [place], [address] Basophils/100 WBC (Bld) 0.7 % Normal 0-1 [facility] Comment on above: Performed By: #### L 501.6710, L500.3400, L101.9900, L100.0100, L501.1105 ####[facility] [address] [place], [address] Eosinophils/100 WBC (Bld) 2.4 % Normal 0-5 [facility] Comment on above: Performed By: #### L 501.6710, L500.3400, L101.9900, L100.0100, L501.1105 ####[facility] [address] [place], [address] Erythrocyte distribution width (RBC) [Ratio] 12.2 % Normal 11.6-14.6 [facility] Comment on above: Performed By: #### L 501.6710, L500.3400, L101.9900, L100.0100, L501.1105 ####[facility] [address] [place], [address] Hematocrit (Bld) [Volume fraction] 38.3 % Normal 37-47 [facility] Comment on above: Performed By: #### L 501.6710, L500.3400, L101.9900, L100.0100, L501.1105 ####[facility] [address] [place], [address] Hemoglobin (Bld) [Mass/Vol] 12.2 g/dL Normal 12.0-15.0 [facility] Comment on above: Performed By: #### L 501.6710, L500.3400, L101.9900, L100.0100, L501.1105 ####[facility] [address] [place], [address] IG% 0.200 Normal 0.0-0.9 [facility] Comment on above: Result Comment: IG% - Immature Granulocytes (promyelocytes, myelocytes and metamyelocytes) > 1% indicates that a LEFT SHIFT is Present. Performed By: #### L 501.6710, L500.3400, L101.9900, L100.0100, L501.1105 ####[facility] [address] [place], [address] Lymphocytes/100 WBC (Bld) 41.8 % High 19-41 [facility] Comment on above: Performed By: #### L 501.6710, L500.3400, L101.9900, L100.0100, L501.1105 ####[facility] [address] [place], [address] MCH (RBC) [Entitic mass] 31.3 pg Normal 27.0-32.0 [facility] Comment on above: Performed By: #### L 501.6710, L500.3400, L101.9900, L100.0100, L501.1105 ####[facility] [address] [place], [address] MCHC (RBC) [Mass/Vol] 31.9 g/dL Low 32-36 [facility] Comment on above: Performed By: #### L 501.6710, L500.3400, L101.9900, L100.0100, L501.1105 ####[facility] [address] [place], [address] MCV (RBC) [Entitic vol] 98.2 fL Normal 81-99 [facility] Comment on above: Performed By: #### L 501.6710, L500.3400, L101.9900, L100.0100, L501.1105 ####[facility] [address] [place], [address] Monocytes/100 WBC (Bld) 7.8 % Normal 0-10 [facility] Comment on above: Performed By: #### L 501.6710, L500.3400, L101.9900, L100.0100, L501.1105 ####[facility] [address] [place], [address] Neutrophils/100 WBC (Bld) 47.1 % Normal 47-70 [facility] Comment on above: Performed By: #### L 501.6710, L500.3400, L101.9900, L100.0100, L501.1105 ####[facility] [address] [place], [address] Nucleated RBC (Bld) [#/Vol] 0 10*3/uL Normal 0-5 [facility] Comment on above: Performed By: #### L 501.6710, L500.3400, L101.9900, L100.0100, L501.1105 ####[facility] [address] [place], [address] Platelet mean volume (Bld) [Entitic vol] 9.7 fL Normal 6.2-12.0 [facility] Comment on above: Performed By: #### L 501.6710, L500.3400, L101.9900, L100.0100, L501.1105 ####[facility] [address] [place], [address] Platelets (Bld) [#/Vol] 398 10*3/uL Normal 150-450 [facility] Comment on above: Performed By: #### L 501.6710, L500.3400, L101.9900, L100.0100, L501.1105 ####[facility] [address] [place], [address] RBC (Bld) [#/Vol] 3.90 10*6/uL Low 4.2-5.4 [facility] Comment on above: Performed By: #### L 501.6710, L500.3400, L101.9900, L100.0100, L501.1105 ####[facility] [address] [place], [address] RDW SD 44.2 fl High 35.1-43.9 [facility] Comment on above: Performed By: #### L 501.6710, L500.3400, L101.9900, L100.0100, L501.1105 ####[facility] [address] [place], [address] WBC (Bld) [#/Vol] 5.7 10*3/uL Normal 4.4-11.0 [facility] Comment on above: Performed By: #### L 501.6710, L500.3400, L101.9900, L100.0100, L501.1105 ####[facility] [address] [place], [address] CRPon 04-01-2024 C-REACTIVE PROT 5.25 mg/L High 0.0-3.0 [facility] Comment on above: Result Comment: C-Re active Protein (CRP) provides useful information for the diagnosis, therapy and monitoring of inflammatory processes and associated diseases. For the evaluation of Relative Risk for Cardiovascular Disease, a High Sensitivity CRP (HSCRP) should be ordered. Performed By: #### L 501.6710, L500.3400, L101.9900, L100.0100, L501.1105 ####[facility] [address] [place], [address] Erythrocyte Sed Rateon 04-01 SED RATE 15 mm/hr Normal 0-30 [facility] Comment on above: Performed By: #### L 501.6710, L500.3400, L101.9900, L100.0100, L501.1105 ####[facility] [address] [place], [address] Liver Profileon 04-01-2024 Albumin [Mass/Vol] 3.7 g/dL Normal 3.2-5.0 [facility] Comment on above: Performed By: #### L 501.6710, L500.3400, L101.9900, L100.0100, L501.1105 ####[facility] [address] [place], [address] ALK P 59 U/L Normal 45-117 [facility] Comment on above: Performed By: #### L 501.6710, L500.3400, L101.9900, L100.0100, L501.1105 ####[facility] [address] [place], [address] ALT [Catalytic activity/Vol] 22 U/L Normal 13-56 [facility] Comment on above: Performed By: #### L 501.6710, L500.3400, L101.9900, L100.0100, L501.1105 ####[facility] [address] [place], [address] AST [Catalytic activity/Vol] 13 U/L Low 15-37 [facility] Comment on above: Performed By: #### L 501.6710, L500.3400, L101.9900, L100.0100, L501.1105 ####[facility] [address] [place], [address] Bilirubin [Mass/Vol] 0.40 mg/dL Normal 0.20-1.00 [facility] Comment on above: Result Comment: For patients on eltrombopag therapy, use of Dimension [place] TBIL is not recommended. Performed By: #### L 501.6710, L500.3400, L101.9900, L100.0100, L501.1105 ####[facility] [address] [place], [address] Bilirubin.direct [Mass/Vol] 0.08 mg/dL Normal 0.00-0.30 [facility] Comment on above: Performed By: #### L 501.6710, L500.3400, L101.9900, L100.0100, L501.1105 ####[facility] [address] [place], [address] Globulin (S) [Mass/Vol] 3.8 g/dL Normal 2.2-4.2 [facility] Comment on above: Performed By: #### L 501.6710, L500.3400, L101.9900, L100.0100, L501.1105 ####[facility] [address] [place], [address] T PROT 7.5 g/dL Normal 6.4-8.2 [facility] Comment on above: Performed By: #### L 501.6710, L500.3400, L101.9900, L100.0100, L501.1105 ####[facility] [address] [place], [address] Serum Creatinine AND GFRon 0 04-01-2024 Creatinine [Mass/Vol] 0.85 mg/dL Normal 0.55-1.02 [facility] Comment on above: Result Comment: The validity of the calculated GFR GFRAA in patients over 70 years has not been determined. Clinical correlation is essential. Performed By: #### L 501.6710, L500.3400, L101.9900, L100.0100, L501.1105 ####[facility] [address] [place], [address] EST GFR - AA 95 mL/min Normal >60 [facility] Comment on above: Result Comment: Afri can Tongan GFR Calc Performed By: #### L 501.6710, L500.3400, L101.9900, L100.0100, L501.1105 ####[facility] [address] [place], [address] GFR/1.73 sq M.predicted among non-blacks MDRD (S/P/Bld) [Vol rate/Area] 79 mL/min/{1.73_m2} Normal >60 [facility] Comment on above: Result Comment: Non- GFR Calc Performed By: #### L 501.6710, L500.3400, L101.9900, L100.0100, L501.1105 ####[facility] [address] 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 Normal [facility] T4 Free Directon 02-13-2024 T4 FREE DIRECT 1.20 ng/dL Normal 0.76-1.46 [facility] Comment on above: Performed By: #### L 506.0400, L501.9520 ####[facility] [address] [place], [address] Thyroid Stim Hormone (TSH)on 02-13-2024 TSH 1.68 uIU/mL Normal 0.358-3.74 [facility] Comment on above: Performed By: #### L 506.0400, L501.9520 #### [facility] [address] 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 Normal [facility] Emergency Department Summary on 01-18-2024 Emergency Department Summary [facility] Medical Records Department [address] [place] [address] Emergency Department Summary 01/18/24 MR#: [id number] Acct: [id number] Name: ALMA ADEN Rep #: [id number] : 1980 43 From: Susy MINER PCP: Dr. Wyatt Marcelo MD Status:DEP ER Location: ED HPI History of Present Illness Chief Complaint: Laceration Narrative Narrative: Patient presenting today with a laceration to her left thumb from a clean kitchen knife that occurred this morning. Her tetanus is up-to-date. 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 Normal [facility] CBC W/Diff, Automatedon - Absolute Lymph 2.49 X10 3/uL Normal 0.83-4.51 [facility] Comment on above: Performed By: #### L 101.9900, L501.6710, L501.1105, L100.0100, L500.3400 ####[facility] [address] [place], [place], [address] Absolute Neut 3.7 X10 3/uL Normal 2.0-7.7 [facility] Comment on above: Performed By: #### L 101.9900, L501.6710, L501.1105, L100.0100, L500.3400 ####[facility] [address] [place], [address] Basophils/100 WBC (Bld) 0.7 % Normal 0-1 [facility] Comment on above: Performed By: #### L 101.9900, L501.6710, L501.1105, L100.0100, L500.3400 ####[facility] [address] [place], [address] Eosinophils/100 WBC (Bld) 4.0 % Normal 0-5 [facility] Comment on above: Performed By: #### L 101.9900, L501.6710, L501.1105, L100.0100, L500.3400 ####[facility] [address] [place], [address] Erythrocyte distribution width (RBC) [Ratio] 13.1 % Normal 11.6-14.6 [facility] Comment on above: Performed By: #### L 101.9900, L501.6710, L501.1105, L100.0100, L500.3400 ####[facility] [address] [place], [address] Hematocrit (Bld) [Volume fraction] 40.2 % Normal 37-47 [facility] Comment on above: Performed By: #### L 101.9900, L501.6710, L501.1105, L100.0100, L500.3400 ####[facility] [address] [place], [address] Hemoglobin (Bld) [Mass/Vol] 12.7 g/dL Normal 12.0-15.0 [facility] Comment on above: Performed By: #### L 101.9900, L501.6710, L501.1105, L100.0100, L500.3400 ####[facility] [address] [place], [address] IG% 0.400 Normal 0.0-0.9 [facility] Comment on above: Result Comment: IG% - Immature Granulocytes (promyelocytes, myelocytes and metamyelocytes) > 1% indicates that a LEFT SHIFT is Present. Performed By: #### L 101.9900, L501.6710, L501.1105, L100.0100, L500.3400 ####[facility] [address] [place], [address] Lymphocytes/100 WBC (Bld) 35.5 % Normal 19-41 [facility] Comment on above: Performed By: #### L 101.9900, L501.6710, L501.1105, L100.0100, L500.3400 ####[facility] [address] [place], [address] MCH (RBC) [Entitic mass] 30.2 pg Normal 27.0-32.0 [facility] Comment on above: Performed By: #### L 101.9900, L501.6710, L501.1105, L100.0100, L500.3400 ####[facility] [address] [place], [place], [id number] MCHC (RBC) [Mass/Vol] 31.6 g/dL Low 32-36 [facility] Comment on above: Performed By: #### L 101.9900, L501.6710, L501.1105, L100.0100, L500.3400 ####[facility] [address] [place], [address] MCV (RBC) [Entitic vol] 95.7 fL Normal 81-99 [facility] Comment on above: Performed By: #### L 101.9900, L501.6710, L501.1105, L100.0100, L500.3400 ####[facility] [address] [place], [address] Monocytes/100 WBC (Bld) 6.8 % Normal 0-10 [facility] Comment on above: Performed By: #### L 101.9900, L501.6710, L501.1105, L100.0100, L500.3400 ####[facility] [address] [place], [address] Neutrophils/100 WBC (Bld) 52.6 % Normal 47-70 [facility] Comment on above: Performed By: #### L 101.9900, L501.6710, L501.1105, L100.0100, L500.3400 ####[facility] [address] [place], [address] Nucleated RBC (Bld) [#/Vol] 0 10*3/uL Normal 0-5 [facility] Comment on above: Performed By: #### L 101.9900, L501.6710, L501.1105, L100.0100, L500.3400 ####[facility] [address] [place], [address] Platelet mean volume (Bld) [Entitic vol] 9.0 fL Normal 6.2-12.0 [facility] Comment on above: Performed By: #### L 101.9900, L501.6710, L501.1105, L100.0100, L500.3400 ####[facility] [address] [place], [address] Platelets (Bld) [#/Vol] 348 10*3/uL Normal 150-450 [facility] Comment on above: Performed By: #### L 101.9900, L501.6710, L501.1105, L100.0100, L500.3400 ####[facility] [address] [place], [address] RBC (Bld) [#/Vol] 4.20 10*6/uL Normal 4.2-5.4 [facility] Comment on above: Performed By: #### L 101.9900, L501.6710, L501.1105, L100.0100, L500.3400 ####[facility] [address] [place], [address] RDW SD 46.2 fl High 35.1-43.9 [facility] Comment on above: Performed By: #### L 101.9900, L501.6710, L501.1105, L100.0100, L500.3400 ####[facility] [address] [place], [address] WBC (Bld) [#/Vol] 7.0 10*3/uL Normal 4.4-11.0 [facility] Comment on above: Performed By: #### L 101.9900, L501.6710, L501.1105, L100.0100, L500.3400 ####[facility] [address] [place], [address] CRPon 01-12-2024 C-REACTIVE PROT 4.86 mg/L High 0.0-3.0 [facility] Comment on above: Result Comment: C-Re active Protein (CRP) provides useful information for the diagnosis, therapy and monitoring of inflammatory processes and associated diseases. For the evaluation of Relative Risk for Cardiovascular Disease, a High Sensitivity CRP (HSCRP) should be ordered. Performed By: #### L 101.9900, L501.6710, L501.1105, L100.0100, L500.3400 ####[facility] [address] [place], [address] Erythrocyte Sed Rateon 01-11 SED RATE 11 mm/hr Normal 0-30 [facility] Comment on above: Performed By: #### L 101.9900, L501.6710, L501.1105, L100.0100, L500.3400 ####[facility] [address] [place], [address] Liver Profileon 01-12-2024 Albumin [Mass/Vol] 3.7 g/dL Normal 3.2-5.0 [facility] Comment on above: Performed By: #### L 101.9900, L501.6710, L501.1105, L100.0100, L500.3400 ####[facility] [address] [place], [address] ALK P 78 U/L Normal 45-117 [facility] Comment on above: Performed By: #### L 101.9900, L501.6710, L501.1105, L100.0100, L500.3400 ####[facility] [address] [place], [address] ALT [Catalytic activity/Vol] 24 U/L Normal 13-56 [facility] Comment on above: Performed By: #### L 101.9900, L501.6710, L501.1105, L100.0100, L500.3400 ####[facility] [address] [place], [address] AST [Catalytic activity/Vol] 9 U/L Low 15-37 [facility] Comment on above: Performed By: #### L 101.9900, L501.6710, L501.1105, L100.0100, L500.3400 ####[facility] [address] [place], [address] Bilirubin [Mass/Vol] 0.40 mg/dL Normal 0.20-1.00 [facility] Comment on above: Result Comment: For patients on eltrombopag therapy, use of Dimension [place] TBIL is not recommended. Performed By: #### L 101.9900, L501.6710, L501.1105, L100.0100, L500.3400 ####[facility] [address] [place], [address] Bilirubin.direct [Mass/Vol] 0.13 mg/dL Normal 0.00-0.30 [facility] Comment on above: Performed By: #### L 101.9900, L501.6710, L501.1105, L100.0100, L500.3400 ####[facility] [address] [place], [address] Globulin (S) [Mass/Vol] 4.0 g/dL Normal 2.2-4.2 [facility] Comment on above: Performed By: #### L 101.9900, L501.6710, L501.1105, L100.0100, L500.3400 ####[facility] [address] [place], [address] T PROT 7.7 g/dL Normal 6.4-8.2 [facility] Comment on above: Performed By: #### L 101.9900, L501.6710, L501.1105, L100.0100, L500.3400 ####[facility] [address] [place], [address] Serum Creatinine AND GFRon 0 - Creatinine [Mass/Vol] 0.90 mg/dL Normal 0.55-1.02 [facility] Comment on above: Result Comment: The validity of the calculated GFR GFRAA in patients over 70 years has not been determined. Clinical correlation is essential. Performed By: #### L 101.9900, L501.6710, L501.1105, L100.0100, L500.3400 ####[facility] [address] [place], [address] EST GFR - AA 89 mL/min Normal >60 [facility] Comment on above: Result Comment: Afri can Tongan GFR Calc Performed By: #### L 101.9900, L501.6710, L501.1105, L100.0100, L500.3400 ####[facility] [address] [place], [address] GFR/1.73 sq M.predicted among non-blacks MDRD (S/P/Bld) [Vol rate/Area] 73 mL/min/{1.73_m2} Normal >60 [facility] Comment on above: Result Comment: Non- GFR Calc Performed By: #### L 101.9900, L501.6710, L501.1105, L100.0100, L500.3400 ####[facility] [address] [place], [address] Basophil percentageOrdered B y: Liliana Bangura on 10-17-2023 Hemoglobin (Bld) [Mass/Vol] 13.1 g/dL 12.0-15.0 [facility] WBC (Bld) [#/Vol] 6.5 10*3/uL 4.4-11.0 [facility] Determination of erythrocyte mean corpuscular volume (MCV)Ordered By: Liliana Bangura on 10-17-2023 MCV (RBC) [Entitic vol] 94.8 fL 81-99 [facility] Erythrocyte distribution wid th ratioOrdered By: Liliana Bangura on 10-17-2023 Erythrocyte distribution width (RBC) [Ratio] 12.5 % 11.6-14.6 [facility] Erythrocyte distribution wid th standard deviationOrdered By: Liliana Bangura on 10-17-2023 Erythrocyte distribution width (RBC) [Entitic vol] 43.4 fL 35.1-43.9 [facility] Hematocrit Auto (Bld) [Volum e fraction]Ordered By: Liliana Bangura on 10-17-2023 Hematocrit (Bld) [Volume fraction] 40.5 % 37-47 [facility] Iron measurement (mass/mass) Ordered By: Liliana Bangura on 10-17-2023 Iron (Unsp spec) [Mass/Mass] 69 ug/dL 50-170 [facility] Laboratory - Chemistry and C hemistry - challengeOrdered By: Liliana Bangura on 10-17-2023 Cobalamin (Vitamin B12) [Mass/Vol] 890 pg/mL 211-911 [facility] Ferritin [Mass/Vol] 72 ng/mL 8-252 [facility] Laboratory - Hematology and Cell countsOrdered By: Liliana Bangura on 10-17-2023 MCH (RBC) [Entitic mass] 30.7 pg 27.0-32.0 [facility] MCHC (RBC) [Mass/Vol] 32.3 g/dL 32-36 [facility] Platelet mean volume (Bld) [Entitic vol] 9.2 fL 6.2-12.0 [facility] Platelets (Bld) [#/Vol] 336 10*3/uL 150-450 [facility] No Panel InformationOrdered By: Liliana Bangura on 10-17-2023 Total Iron Binding Capacity 394 ug/dL 250-450 [facility] RBC Auto (Bld) [#/Vol]Ordere d By: Liliana Bangura on 10-17-2023 RBC (Bld) [#/Vol] 4.27 10*6/uL 4.2-5.4 [facility] No Panel InformationOrdered By: STEVEN BOLES on 10-12-2023 Hepatitis B Surface Antigen Non-Reactive Nonreactive [facility] Hepatitis C Antibody Non-Reactive Nonreactive [facility] Comment on above: Non Reactive: < 0.8 Equivocal: >/= 0.8 to < 1.0 Reactive: >/= 1.0The CDC requires that a reactive/equivocal HCV antibody result be sent out for confirmation. HCV Quant by PCR testing. Qualitative QuantiFERON-TB g old in tube testOrdered By: STEVEN BOLES on 10-12-2023 M. tuberculosis tuberculin stim IFN-g Ql (Bld) 0.07 IU/mL . [facility] Serum hepatitis B virus core antibody detectionOrdered By: STEVEN BOLES on 10-12-2023 HBV core Ab Ql (S) Negative Negative [facility] Comment on above: Performed at: [address] [id number] Director: Levi Covarrubias PhD, Phone: [phone] Thin prep Papanicolaou smear with manual screeningOrdered By: STEVEN BOLES on 10-12-2023 Thin prep Papanicolaou smear with manual screening Comment . [facility] Comment on above: QuantiFERON-TB Gold Plus is [...] smear with manual screening 0.06 IU/mL . [facility] Thin prep Papanicolaou smear with manual screening > 10.00 IU/mL . [facility] Thin prep Papanicolaou smear with manual screening Negative Negative [facility] Comment on above: No response to M [...] Auto (Unsp spec) [#/Vol] 3.56 10*3/uL 0.83-4.51 [facility] Automated lymphocyte count a s percentage of total leukocyteson 08-17-2023 Lymphocytes/100 WBC Auto (Unsp spec) 32.5 % 19-41 [facility] Basophil percentageon 2023 Basophils/100 WBC (Bld) 0.7 % 0-1 [facility] Bilirubin [Mass/Vol] 0.20 mg/dL 0.20-1.00 [facility] Comment on above: For patients on eltr ombopag therapy, use of Dimension [place] TBIL is not recommended. Eosinophils/100 WBC (Bld) 1.3 % 0-5 [facility] Hemoglobin (Bld) [Mass/Vol] 11.5 g/dL 12.0-15.0 [facility] Monocytes/100 WBC (Bld) 6.8 % 0-10 [facility] Neutrophils (Bld) [#/Vol] 6.4 10*3/uL 2.0-7.7 [facility] Neutrophils/100 WBC (Bld) 58.2 % 47-70 [facility] Protein [Mass/Vol] 7.4 g/dL 6.4-8.2 [facility] WBC (Bld) [#/Vol] 11.0 10*3/uL 4.4-11.0 [facility] Determination of erythrocyte mean corpuscular volume (MCV)on 08-17-2023 MCV (RBC) [Entitic vol] 97.3 fL 81-99 [facility] Direct bilirubinon Bilirubin.direct [Mass/Vol] 0.08 mg/dL 0.00-0.30 [facility] Erythrocyte distribution wid th ratioon 08-17-2023 Erythrocyte distribution width (RBC) [Ratio] 13.1 % 11.6-14.6 [facility] Erythrocyte distribution wid th standard deviationon 08-17-2023 Erythrocyte distribution width (RBC) [Entitic vol] 46.6 fL 35.1-43.9 [facility] Erythrocyte sedimentation ra avel 08-17-2023 ESR (Bld) [Velocity] 11 mm/h 0-30 [facility] Hematocrit Auto (Bld) [Volum e fraction]on 08-17-2023 Hematocrit (Bld) [Volume fraction] 36.5 % 37-47 [facility] Immature granulocytes/100 WB C Auto (Bld)on 08-17-2023 Immature granulocytes/100 WBC (Bld) 0.500 % 0.0-0.9 [facility] Comment on above: IG% - Immature Granu locytes (promyelocytes, myelocytes and metamyelocytes) > 1% indicates that a LEFT SHIFT is Present. Laboratory - Chemistry and C hemistry - challengeon 08-17-2023 ALP [Catalytic activity/Vol] 73 U/L 45-117 [facility] ALT [Catalytic activity/Vol] 46 U/L 13-56 [facility] Globulin (S) [Mass/Vol] 3.8 g/dL 2.2-4.2 [facility] Laboratory - Hematology and Cell countson 08-17-2023 MCH (RBC) [Entitic mass] 30.7 pg 27.0-32.0 [facility] MCHC (RBC) [Mass/Vol] 31.5 g/dL 32-36 [facility] Nucleated RBC/100 WBC (Bld) [Ratio] 0 % 0-5 [facility] Platelets (Bld) [#/Vol] 306 10*3/uL 150-450 [facility] No Panel Informationon 08-17 C-Reactive Protein Extended Range 4.60 mg/L 0.0-3.0 [facility] Comment on above: C-Reactive Protein ( CRP) provides useful information for thediagnosis, therapy and monitoring of inflammatory processesand associated diseases. For the evaluation of Relative Riskfor Cardiovascular Disease, a High Sensitivity CRP (HSCRP)should be ordered. Estimated GFR (MDRD) Amer 91 mL/min >60 [facility] Comment on above: GFR Calc Estimated GFR (MDRD) Non-Af Amer 76 mL/min >60 [facility] Comment on above: Non- GFR Calc Platelet mean volume Cedric-Ec ker (Bld) [Entitic vol]on 08-17-2023 Platelet mean volume (Bld) [Entitic vol] 8.7 fL 6.2-12.0 [facility] RBC Auto (Bld) [#/Vol]on RBC (Bld) [#/Vol] 3.75 10*6/uL 4.2-5.4 [facility] Serum or plasma creatinine m easurement (mass/volume)on 08-17-2023 Creatinine [Mass/Vol] 0.88 mg/dL 0.55-1.02 [facility] Comment on above: The validity of the calculated GFR & GFRAA in patients over 70 years has not been determined. Clinical correlation is essential. Thin prep Papanicolaou smear with manual screeningon 08-17-2023 Thin prep Papanicolaou smear with manual screening 3.6 g/dL 3.2-5.0 [facility] Thin prep Papanicolaou smear with manual screening 17 U/L 15-37 [facility] Absolute lymphocyte countOrd ered By: Cali Lou on 06-16-2023 Lymphocytes Auto (Unsp spec) [#/Vol] 1.93 10*3/uL 0.83-4.51 [facility] Basophil percentageOrdered B y: Cali Lou on 06-16-2023 Basophils/100 WBC (Bld) 0.5 % 0-1 [facility] Bilirubin [Mass/Vol] 0.30 mg/dL 0.20-1.00 [facility] Comment on above: For patients on eltr ombopag therapy, use of Dimension [place] TBIL is not recommended. Chloride [Moles/Vol] 105 mmol/L 98-107 [facility] Eosinophils/100 WBC (Bld) 2.2 % 0-5 [facility] Glucose [Mass/Vol] 80 mg/dL 74-106 [facility] Neutrophils (Bld) [#/Vol] 2.9 10*3/uL 2.0-7.7 [facility] Neutrophils/100 WBC (Bld) 52.2 % 47-70 [facility] Potassium [Moles/Vol] 4.0 mmol/L 3.5-5.1 [facility] Protein [Mass/Vol] 7.2 g/dL 6.4-8.2 [facility] Sodium [Moles/Vol] 136 mmol/L 136-145 [facility] WBC (Bld) [#/Vol] 5.6 10*3/uL 4.4-11.0 [facility] Blood erythrocytes count (nu mber/volume)Ordered By: Cali Lou on 06-16-2023 RBC (Bld) [#/Vol] 3.91 10*6/uL 4.2-5.4 [facility] Blood hemoglobin measurement (mass/volume)Ordered By: Cali Lou on 06-16-2023 Hemoglobin (Bld) [Mass/Vol] 12.1 g/dL 12.0-15.0 [facility] Blood lymphocytes/100 leukoc ytesOrdered By: Cali Lou on 06-16-2023 Lymphocytes/100 WBC (Bld) 34.6 % 19-41 [facility] Blood monocytes/100 leukocyt esOrdered By: Cali Lou on 06-16-2023 Monocytes/100 WBC (Bld) 10.1 % 0-10 [facility] Blood platelet mean volumeOr dered By: Cali Lou on 06-16-2023 Platelet mean volume (Bld) [Entitic vol] 9.3 fL 6.2-12.0 [facility] Determination of erythrocyte mean corpuscular volume (MCV)Ordered By: Cali Lou on 06-16-2023 MCV (RBC) [Entitic vol] 96.2 fL 81-99 [facility] Direct bilirubinOrdered By: Cali Lou on 06-16-2023 Bilirubin.direct [Mass/Vol] 0.08 mg/dL 0.00-0.30 [facility] Hematocrit Auto (Bld) [Volum e fraction]Ordered By: Cali Lou on 06-16-2023 Hematocrit (Bld) [Volume fraction] 37.6 % 37-47 [facility] Laboratory - Chemistry and C hemistry - challengeOrdered By: Cali Lou on 06-16-2023 ALP [Catalytic activity/Vol] 54 U/L 45-117 [facility] ALT [Catalytic activity/Vol] 33 U/L 13-56 [facility] CO2 [Moles/Vol] 27.0 mmol/L 21.0-32.0 [facility] Globulin (S) [Mass/Vol] 3.5 g/dL 2.2-4.2 [facility] Urea nitrogen/Creatinine [Mass ratio] 13.2 mg/mg 10-20 [facility] Laboratory - Hematology and Cell countsOrdered By: Cali Lou on 06-16-2023 Erythrocyte distribution width (RBC) [Entitic vol] 46.5 fL 35.1-43.9 [facility] Erythrocyte distribution width (RBC) [Ratio] 13.2 % 11.6-14.6 [facility] Immature granulocytes/100 WBC (Bld) 0.400 % 0.0-0.9 [facility] Comment on above: IG% - Immature Granu locytes (promyelocytes, myelocytes and metamyelocytes) > 1% indicates that a LEFT SHIFT is Present. MCH (RBC) [Entitic mass] 30.9 pg 27.0-32.0 [facility] Nucleated RBC/100 WBC (Bld) [Ratio] 0 % 0-5 [facility] MCHC Auto (RBC) [Mass/Vol]Or dered By: Cali Lou on 06-16-2023 MCHC (RBC) [Mass/Vol] 32.2 g/dL 32-36 [facility] No Panel InformationOrdered By: Cali Lou on 06-16-2023 Estimated GFR (MDRD) Amer 108 mL/min >60 [facility] Comment on above: GFR Calc Estimated GFR (MDRD) Non-Af Amer 89 mL/min >60 [facility] Comment on above: Non- GFR Calc Parathyroid Hormone (Intact) 113.6 pg/mL 18.4-80.1 [facility] Thyroid Stimulating Hormone (TSH) 1.93 uIU/mL 0.358-3.74 [facility] Vitamin D 25-Hydroxy 40.8 ng/mL [facility] Comment on above: Vitamin D 25(OH) Sta tus Range Deficiency <20 ng/mL (50nmol/L) Insufficiency 20 - 30 ng/mL (50 - 75 nmol/L) Sufficiency 30 - 100 ng/mL (75 - 250 nmol/L) Toxicity >100 ng/mL (>250 nmol/L) Platelets bldOrdered By: Nito Lou on 06-16-2023 Platelets (Bld) [#/Vol] 334 10*3/uL 150-450 [facility] Serum or plasma albumin sancho urement (mass/volume)Ordered By: Cali Lou on 06-16-2023 Albumin [Mass/Vol] 3.7 g/dL 3.2-5.0 [facility] Serum or plasma albumin/glob ulin mass ratioOrdered By: Cali Lou on 06-16-2023 Albumin/Globulin [Mass ratio] 1.1 {ratio} 0.9-2.4 [facility] Serum or plasma calcium sancho urement (mass/volume)Ordered By: Cali Lou on 06-16-2023 Calcium [Mass/Vol] 9.0 mg/dL 8.5-10.1 [facility] Serum or plasma creatinine m easurement (mass/volume)Ordered By: Cali Lou on 06-16-2023 Creatinine [Mass/Vol] 0.76 mg/dL 0.55-1.02 [facility] Comment on above: The validity of the calculated GFR & GFRAA in patients over 70 years has not been determined. Clinical correlation is essential. Serum or plasma urea nitroge n measurement (mass/volume)Ordered By: Cali Lou on 06-16-2023 Urea nitrogen [Mass/Vol] 10 mg/dL 7-18 [facility] Thin prep Papanicolaou smear with manual screeningOrdered By: Cali Lou on 06-16-2023 Thin prep Papanicolaou smear with manual screening 19 U/L 15-37 [facility] Thin prep Papanicolaou smear with manual screening 4 5-15 [facility] Whole blood hemoglobin A1c/t otal hemoglobin ratio (mass fraction)Ordered By: Wyatt Marcelo on 06-16-2023 HbA1c (Bld) [Mass fraction] 5.8 % 3.8-5.6 [facility] Comment on above: Normal < 5.7 % Predi abetic 5.7 - 6.4 % Diabetic >or= 6.5 % Please note range changes. Absolute lymphocyte countOrd ered By: Kane Fisher on 06-11-2023 Lymphocytes Auto (Unsp spec) [#/Vol] 0.54 10*3/uL 0.83-4.51 [facility] Basophil percentageOrdered B y: Kane Fisher on 06-11-2023 Basophils/100 WBC (Bld) 0.3 % 0-1 [facility] Chloride [Moles/Vol] 104 mmol/L 98-107 [facility] Eosinophils/100 WBC (Bld) 1.0 % 0-5 [facility] Glucose [Mass/Vol] 105 mg/dL 74-106 [facility] Comment on above: Fasting Glucose resu lt from 100 to 125 mg/dL suggests IMPAIRED HOMEOSTASIS per A.D.A. criteria. Neutrophils (Bld) [#/Vol] 5.0 10*3/uL 2.0-7.7 [facility] Neutrophils/100 WBC (Bld) 83.2 % 47-70 [facility] Potassium [Moles/Vol] 4.1 mmol/L 3.5-5.1 [facility] Comment on above: Moderate Hemolysis, Result may be falsely increased. Sodium [Moles/Vol] 137 mmol/L 136-145 [facility] WBC (Bld) [#/Vol] 6.0 10*3/uL 4.4-11.0 [facility] Blood erythrocytes count (nu mber/volume)Ordered By: Kane Fisher on 06-11-2023 RBC (Bld) [#/Vol] 4.23 10*6/uL 4.2-5.4 [facility] Blood hemoglobin measurement (mass/volume)Ordered By: Kane Fisher on 06-11-2023 Hemoglobin (Bld) [Mass/Vol] 13.1 g/dL 12.0-15.0 [facility] Blood lymphocytes/100 leukoc ytesOrdered By: Kane Fisher on 06-11-2023 Lymphocytes/100 WBC (Bld) 9.1 % 19-41 [facility] Blood manual differential co mment interpretation (narrative result)Ordered By: Kane Fisher on 06-11-2023 Manual differential comment Collin (Bld) [Interp] SCANNED [facility] Blood monocytes/100 leukocyt esOrdered By: Kane Fisher on 06-11-2023 Monocytes/100 WBC (Bld) 6.1 % 0-10 [facility] Blood platelet mean volumeOr dered By: Kane Fisher on 06-11-2023 Platelet mean volume (Bld) [Entitic vol] 9.7 fL 6.2-12.0 [facility] Determination of erythrocyte mean corpuscular volume (MCV)Ordered By: Kane Fisher on 06-11-2023 MCV (RBC) [Entitic vol] 95.5 fL 81-99 [facility] Hematocrit Auto (Bld) [Volum e fraction]Ordered By: Kane Fisher on 06-11-2023 Hematocrit (Bld) [Volume fraction] 40.4 % 37-47 [facility] Laboratory - Chemistry and C hemistry - challengeOrdered By: Kane Fisher on 06-11-2023 CO2 [Moles/Vol] 27.0 mmol/L 21.0-32.0 [facility] Urea nitrogen/Creatinine [Mass ratio] 23.1 mg/mg 10-20 [facility] Laboratory - Hematology and Cell countsOrdered By: Kane Fisher on 06-11-2023 Erythrocyte distribution width (RBC) [Entitic vol] 46.3 fL 35.1-43.9 [facility] Erythrocyte distribution width (RBC) [Ratio] 13.2 % 11.6-14.6 [facility] Immature granulocytes/100 WBC (Bld) 0.300 % 0.0-0.9 [facility] Comment on above: IG% - Immature Granu locytes (promyelocytes, myelocytes and metamyelocytes) > 1% indicates that a LEFT SHIFT is Present. MCH (RBC) [Entitic mass] 31.0 pg 27.0-32.0 [facility] Nucleated RBC/100 WBC (Bld) [Ratio] 0 % 0-5 [facility] MCHC Auto (RBC) [Mass/Vol]Or dered By: Kane Fisher on 06-11-2023 MCHC (RBC) [Mass/Vol] 32.4 g/dL 32-36 [facility] No Panel InformationOrdered By: Kane Fisher on 06-11-2023 Estimated Creatinine Clearance Calc 82.90 ml/min [facility] Estimated GFR (MDRD) Amer 88 mL/min >60 [facility] Comment on above: GFR Calc Estimated GFR (MDRD) Non-Af Amer 73 mL/min >60 [facility] Comment on above: Non- GFR Calc Platelets bldOrdered By: Jules Fisher on 06-11-2023 Platelets (Bld) [#/Vol] 253 10*3/uL 150-450 [facility] Serum or plasma calcium sancho urement (mass/volume)Ordered By: Kane Fisher on 06-11-2023 Calcium [Mass/Vol] 9.2 mg/dL 8.5-10.1 [facility] Serum or plasma creatinine m easurement (mass/volume)Ordered By: Kane Fisher on 06-11-2023 Creatinine [Mass/Vol] 0.91 mg/dL 0.55-1.02 [facility] Comment on above: The validity of the calculated GFR & GFRAA in patients over 70 years has not been determined. Clinical correlation is essential. Serum or plasma urea nitroge n measurement (mass/volume)Ordered By: Kane Fisher on 06-11-2023 Urea nitrogen [Mass/Vol] 21 mg/dL 7-18 [facility] Thin prep Papanicolaou smear with manual screeningOrdered By: Kane Fisher on 06-11-2023 Thin prep Papanicolaou smear with manual screening 6 5-15 [facility] Absolute lymphocyte countOrd ered By: HEALTH ASSESSMENT on 05-09-2023 Lymphocytes Auto (Unsp spec) [#/Vol] 2.17 10*3/uL 0.83-4.51 [facility] Absolute reticulocyte countO rdered By: HEALTH ASSESSMENT on 05-09-2023 Reticulocytes (Bld) [#/Vol] 0.00 10*3/uL 0-5 [facility] Basophil percentageOrdered B y: HEALTH ASSESSMENT on 05-09-2023 Basophil percentage 3.1 mg/dL 2.5-4.9 [facility] Bilirubin [Mass/Vol] 0.20 mg/dL 0.20-1.00 [facility] Comment on above: For patients on eltr ombopag therapy, use of Dimension [place] TBIL is not recommended. Chloride [Moles/Vol] 107 mmol/L 98-107 [facility] Cholesterol [Mass/Vol] 206 mg/dL <200 [facility] Comment on above: <200 mg/dL Desirable 200-240 mg/dL Borderline >240 mg/dL High Risk Glucose [Mass/Vol] 111 mg/dL 74-106 [facility] Comment on above: Fasting Glucose resu lt from 100 to 125 mg/dL suggests IMPAIRED HOMEOSTASIS per A.D.A. criteria. LDH [Catalytic activity/Vol] 206 U/L 84-246 [facility] Neutrophils (Bld) [#/Vol] 2.7 10*3/uL 2.0-7.7 [facility] Potassium [Moles/Vol] 4.0 mmol/L 3.5-5.1 [facility] Protein [Mass/Vol] 7.1 g/dL 6.4-8.2 [facility] Sodium [Moles/Vol] 139 mmol/L 136-145 [facility] Triglyceride [Mass/Vol] 108 mg/dL <199 [facility] Comment on above: The drugs N-Acetylcy steine and Metamizole may falsely depress this assay.Serum Triglycerides Reference Interval Normal <150 mg/dL Borderline high 150 - 199 mg/dL High 200 - 499 mg/dL Very High > or = 500 mg/dL WBC (Bld) [#/Vol] 5.4 10*3/uL 4.4-11.0 [facility] Bilirubin Test strip Ql (U)O rdered By: HEALTH ASSESSMENT on 05-09-2023 Bilirubin Ql (U) 1 mg/dL Negative [facility] Comment on above: COLOR OF URINE MAY A FFECT DIPSTICK RESULTS. Blood erythrocytes count (nu mber/volume)Ordered By: HEALTH ASSESSMENT on 05-09-2023 RBC (Bld) [#/Vol] 3.78 10*6/uL 4.2-5.4 [facility] Blood hemoglobin measurement (mass/volume)Ordered By: HEALTH ASSESSMENT on 05-09-2023 Hemoglobin (Bld) [Mass/Vol] 11.6 g/dL 12.0-15.0 [facility] Blood platelet mean volumeOr dered By: HEALTH ASSESSMENT on 05-09-2023 Platelet mean volume (Bld) [Entitic vol] 9.5 fL 6.2-12.0 [facility] Determination of erythrocyte mean corpuscular volume (MCV)Ordered By: HEALTH ASSESSMENT on 05-09-2023 MCV (RBC) [Entitic vol] 97.4 fL 81-99 [facility] Direct bilirubinOrdered By: HEALTH ASSESSMENT on 05-09-2023 Bilirubin.direct [Mass/Vol] 0.06 mg/dL 0.00-0.30 [facility] Hematocrit Auto (Bld) [Volum e fraction]Ordered By: HEALTH ASSESSMENT on 05-09-2023 Hematocrit (Bld) [Volume fraction] 36.8 % 37-47 [facility] Ketones Test strip Ql (U)Ord ered By: HEALTH ASSESSMENT on 05-09-2023 Ketones Ql (U) 5 mg/dl Negative [facility] Laboratory - Chemistry and C hemistry - challengeOrdered By: HEALTH ASSESSMENT on 05-09-2023 ALP [Catalytic activity/Vol] 63 U/L 45-117 [facility] ALT [Catalytic activity/Vol] 36 U/L 13-56 [facility] Cholesterol.total/Cho lesterol in HDL [Mass ratio] 3.60 {ratio} [facility] CO2 [Moles/Vol] 28.0 mmol/L 21.0-32.0 [facility] Globulin (S) [Mass/Vol] 3.6 g/dL 2.2-4.2 [facility] Urea nitrogen/Creatinine [Mass ratio] 15.9 mg/mg 10-20 [facility] Laboratory - Hematology and Cell countsOrdered By: HEALTH ASSESSMENT on 05-09-2023 Erythrocyte distribution width (RBC) [Entitic vol] 45.2 fL 35.1-43.9 [facility] Erythrocyte distribution width (RBC) [Ratio] 12.7 % 11.6-14.6 [facility] MCH (RBC) [Entitic mass] 30.7 pg 27.0-32.0 [facility] Nucleated RBC/100 WBC (Bld) [Ratio] 0 % 0-5 [facility] MCHC Auto (RBC) [Mass/Vol]Or dered By: HEALTH ASSESSMENT on 05-09-2023 MCHC (RBC) [Mass/Vol] 31.5 g/dL 32-36 [facility] Nitrite Test strip Ql (U)Ord ered By: HEALTH ASSESSMENT on 05-09-2023 Nitrite Ql (U) Negative Negative [facility] No Panel InformationOrdered By: HEALTH ASSESSMENT on 05-09-2023 Estimated GFR (MDRD) Amer 91 mL/min >60 [facility] Comment on above: GFR Calc Estimated GFR (MDRD) Non-Af Amer 76 mL/min >60 [facility] Comment on above: Non- GFR Calc Platelets bldOrdered By: HEA LT ASSESSMENT on 05-09-2023 Platelets (Bld) [#/Vol] 302 10*3/uL 150-450 [facility] Protein Test strip Ql (U)Ord ered By: HEALTH ASSESSMENT on 05-09-2023 Protein Ql (U) 30 mg/dl Negative [facility] Segmented neutrophils/100 WB C Auto (Bld)Ordered By: HEALTH ASSESSMENT on 05-09-2023 Segmented neutrophils/100 WBC (Bld) 48.7 % 47-70 [facility] Serum or plasma albumin sancho urement (mass/volume)Ordered By: HEALTH ASSESSMENT on 05-09-2023 Albumin [Mass/Vol] 3.5 g/dL 3.2-5.0 [facility] Serum or plasma albumin/glob ulin mass ratioOrdered By: HEALTH ASSESSMENT on 05-09-2023 Albumin/Globulin [Mass ratio] 1.0 {ratio} 0.9-2.4 [facility] Serum or plasma calcium sancho urement (mass/volume)Ordered By: HEALTH ASSESSMENT on 05-09-2023 Calcium [Mass/Vol] 9.5 mg/dL 8.5-10.1 [facility] Serum or plasma cholesterol in HDL measurement (mass/volume)Ordered By: HEALTH ASSESSMENT on 05-09-2023 Cholesterol in HDL [Mass/Vol] 57 mg/dL >40 [facility] Comment on above: The drugs N-Acetylcy steine and Metamizole may falsely depress this assay. Reference Range HDL <40 mg/dL Low HDL Cholesterol HDL >or= 60 mg/dL High HDL Cholesterol Serum or plasma cholesterol in VLDL measurement (mass/volume)Ordered By: HEALTH ASSESSMENT on 05-09-2023 Cholesterol in VLDL [Mass/Vol] 22 mg/dL 5-40 [facility] Serum or plasma creatinine m easurement (mass/volume)Ordered By: HEALTH ASSESSMENT on 05-09-2023 Creatinine [Mass/Vol] 0.88 mg/dL 0.55-1.02 [facility] Comment on above: The validity of the calculated GFR & GFRAA in patients over 70 years has not been determined. Clinical correlation is essential. Serum or plasma low density lipoprotein (LDL) cholesterol measurement (mass/volume)Ordered By: HEALTH ASSESSMENT on 05-09-2023 Cholesterol in LDL [Mass/Vol] 127 mg/dL 0-130 [facility] Serum or plasma urea nitroge n measurement (mass/volume)Ordered By: HEALTH ASSESSMENT on 05-09-2023 Urea nitrogen [Mass/Vol] 14 mg/dL 7-18 [facility] Serum or plasma uric acid me asurement (mass/volume)Ordered By: HEALTH ASSESSMENT on 05-09-2023 Urate [Mass/Vol] 5.7 mg/dL 2.6-6.0 [facility] Comment on above: The drugs N-Acetylcy steine and Metamizole may falsely depress this assay. Thin prep Papanicolaou smear with manual screeningOrdered By: HEALTH ASSESSMENT on 05-09-2023 Thin prep Papanicolaou smear with manual screening 24 U/L 15-37 [facility] Thin prep Papanicolaou smear with manual screening 4 5-15 [facility] Urine blood detectionOrdered By: HEALTH ASSESSMENT on 05-09-2023 RBC Ql (U) 10 /ul Negative [facility] Urine clarityOrdered By: HEA LTH ASSESSMENT on 10-24-2023 Clarity (U) Sl. Cloudy Clear [facility] Urine color determinationOrd ered By: HEALTH ASSESSMENT on 05-09-2023 Color (U) Yellow Yellow [facility] Urine glucose detectionOrder ed By: HEALTH ASSESSMENT on 05-09-2023 Glucose Ql (U) Normal mg/dl Normal [facility] Urine leukocyte esterase det ection by dipstickOrdered By: HEALTH ASSESSMENT on 05-09-2023 Leukocyte esterase Test strip Ql (U) 25 /ul Negative [facility] Urine pHOrdered By: HEALTH A SSESSMENT on 05-09-2023 pH (U) 5.0 [pH] 5.0 - 8.0 [facility] Urine specific gravity measu rementOrdered By: HEALTH ASSESSMENT on 05-09-2023 Specific gravity (U) [Rel density] 1.025 1.002-1.030 [facility] Urobilinogen Auto test strip Ql (U)Ordered By: HEALTH ASSESSMENT on 05-09-2023 Urobilinogen Ql (U) 1 mg/dl Normal [facility] Absolute lymphocyte countOrd ered By: Gay Koenig on 04-26-2023 Lymphocytes Auto (Unsp spec) [#/Vol] 1.68 10*3/uL 0.83-4.51 [facility] Basophil percentageOrdered B y: Gay Koenig on 04-26-2023 Basophils/100 WBC (Bld) 0.9 % 0-1 [facility] Chloride [Moles/Vol] 106 mmol/L 98-107 [facility] Eosinophils/100 WBC (Bld) 2.9 % 0-5 [facility] Glucose [Mass/Vol] 104 mg/dL 74-106 [facility] Comment on above: Fasting Glucose resu lt from 100 to 125 mg/dL suggests IMPAIRED HOMEOSTASIS per A.D.A. criteria. Neutrophils (Bld) [#/Vol] 4.5 10*3/uL 2.0-7.7 [facility] Neutrophils/100 WBC (Bld) 64.9 % 47-70 [facility] Potassium [Moles/Vol] 4.1 mmol/L 3.5-5.1 [facility] Sodium [Moles/Vol] 136 mmol/L 136-145 [facility] WBC (Bld) [#/Vol] 6.9 10*3/uL 4.4-11.0 [facility] Blood erythrocytes count (nu mber/volume)Ordered By: Gay Koenig on 04-26-2023 RBC (Bld) [#/Vol] 4.04 10*6/uL 4.2-5.4 [facility] Blood hemoglobin measurement (mass/volume)Ordered By: Gay Koenig on 04-26-2023 Hemoglobin (Bld) [Mass/Vol] 12.6 g/dL 12.0-15.0 [facility] Blood lymphocytes/100 leukoc ytesOrdered By: Gay Koenig on 04-26-2023 Lymphocytes/100 WBC (Bld) 24.4 % 19-41 [facility] Blood monocytes/100 leukocyt esOrdered By: Gay Koenig on 04-26-2023 Monocytes/100 WBC (Bld) 6.8 % 0-10 [facility] Blood platelet mean volumeOr dered By: Gay Koenig on 04-26-2023 Platelet mean volume (Bld) [Entitic vol] 10.7 fL 6.2-12.0 [facility] Determination of erythrocyte mean corpuscular volume (MCV)Ordered By: Gay Koenig on 04-26-2023 MCV (RBC) [Entitic vol] 98.8 fL 81-99 [facility] Hematocrit Auto (Bld) [Volum e fraction]Ordered By: Gay Koenig on 04-26-2023 Hematocrit (Bld) [Volume fraction] 39.9 % 37-47 [facility] Laboratory - Chemistry and C hemistry - challengeOrdered By: Gay Koenig on 04-26-2023 CO2 [Moles/Vol] 25.0 mmol/L 21.0-32.0 [facility] Urea nitrogen/Creatinine [Mass ratio] 12.5 mg/mg 10-20 [facility] - Hematology and Cell countsOrdered By: Gay Koenig on 04-26-2023 Erythrocyte distribution width (RBC) [Entitic vol] 45.2 fL 35.1-43.9 [facility] Erythrocyte distribution width (RBC) [Ratio] 12.5 % 11.6-14.6 [facility] Immature granulocytes/100 WBC (Bld) 0.100 % 0.0-0.9 [facility] Comment on above: IG% - Immature Granu locytes (promyelocytes, myelocytes and metamyelocytes) > 1% indicates that a LEFT SHIFT is Present. MCH (RBC) [Entitic mass] 31.2 pg 27.0-32.0 [facility] Nucleated RBC/100 WBC (Bld) [Ratio] 0 % 0-5 [facility] MCHC Auto (RBC) [Mass/Vol]Or dered By: Gay Koenig on 04-26-2023 MCHC (RBC) [Mass/Vol] 31.6 g/dL 32-36 [facility] No Panel InformationOrdered By: Gay Koenig on 04-26-2023 Estimated GFR (MDRD) Amer 91 mL/min >60 [facility] Comment on above: GFR Calc Estimated GFR (MDRD) Non-Af Amer 75 mL/min >60 [facility] Comment on above: Non- GFR Calc Troponin I High Sensitivity 4 pg/mL 3.0-54.0 [facility] Comment on above: Please Note: New Bia t Units and Gender Specific Reference Ranges. For more information see Policy Stat Procedure [place] High Sensitivity Troponin (TNIH) and attachments. Platelets bldOrdered By: Enio Koenig on 04-26-2023 Platelets (Bld) [#/Vol] 279 10*3/uL 150-450 [facility] Serum or plasma calcium sancho urement (mass/volume)Ordered By: Gay Koenig on 04-26-2023 Calcium [Mass/Vol] 10.3 mg/dL 8.5-10.1 [facility] Serum or plasma creatinine m easurement (mass/volume)Ordered By: Gay Koenig on 04-26-2023 Creatinine [Mass/Vol] 0.88 mg/dL 0.55-1.02 [facility] Comment on above: The validity of the calculated GFR & GFRAA in patients over 70 years has not been determined. Clinical correlation is essential. Serum or plasma urea nitroge n measurement (mass/volume)Ordered By: Gay Koenig on 04-26-2023 Urea nitrogen [Mass/Vol] 11 mg/dL 7-18 [facility] Thin prep Papanicolaou smear with manual screeningOrdered By: Gay Koenig on 04-26-2023 Thin prep Papanicolaou smear with manual screening 5 5-15 [facility] Erythrocyte sedimentation ra teOrdered By: STEVEN BOLES on 03-22-2023 ESR (Bld) [Velocity] 14 mm/h 0-30 [facility] Serum or plasma C reactive p rotein measurement (mass/volume)Ordered By: STEVEN BOLES on 03-22-2023 CRP [Mass/Vol] 9.19 mg/L 0.0-3.0 [facility] Comment on above: C-Reactive Protein ( CRP) provides useful information for thediagnosis, therapy and monitoring of inflammatory processesand associated diseases. For the evaluation of Relative Riskfor Cardiovascular Disease, a High Sensitivity CRP (HSCRP)should be ordered. Absolute lymphocyte countOrd ered By: STEVEN BOLES on 03-07-2023 Lymphocytes Auto (Unsp spec) [#/Vol] 2.41 10*3/uL 0.83-4.51 [facility] Basophil percentageOrdered B y: STEVEN BOLES on 03-07-2023 Basophils/100 WBC (Bld) 0.9 % 0-1 [facility] Bilirubin [Mass/Vol] 0.30 mg/dL 0.20-1.00 [facility] Comment on above: For patients on eltr ombopag therapy, use of Dimension [place] TBIL is not recommended. Eosinophils/100 WBC (Bld) 3.2 % 0-5 [facility] Neutrophils (Bld) [#/Vol] 3.7 10*3/uL 2.0-7.7 [facility] Neutrophils/100 WBC (Bld) 55.0 % 47-70 [facility] Protein [Mass/Vol] 7.7 g/dL 6.4-8.2 [facility] WBC (Bld) [#/Vol] 6.8 10*3/uL 4.4-11.0 [facility] Blood erythrocytes count (nu mber/volume)Ordered By: STEVEN BOLES on 03-07-2023 RBC (Bld) [#/Vol] 3.93 10*6/uL 4.2-5.4 [facility] Blood hemoglobin measurement (mass/volume)Ordered By: STEVEN BOLES on 03-07-2023 Hemoglobin (Bld) [Mass/Vol] 12.5 g/dL 12.0-15.0 [facility] Blood lymphocytes/100 leukoc ytesOrdered By: STEVEN BOLES on 03-07-2023 Lymphocytes/100 WBC (Bld) 35.4 % 19-41 [facility] Blood monocytes/100 leukocyt esOrdered By: STEVEN BOLES on 03-07-2023 Monocytes/100 WBC (Bld) 5.4 % 0-10 [facility] Blood platelet mean volumeOr dered By: STEVEN BOLES on 03-07-2023 Platelet mean volume (Bld) [Entitic vol] 9.3 fL 6.2-12.0 [facility] Determination of erythrocyte mean corpuscular volume (MCV)Ordered By: STEVEN BOLES on 03-07-2023 MCV (RBC) [Entitic vol] 98.5 fL 81-99 [facility] Direct bilirubinOrdered By: STEVEN BOLES on 03-07-2023 Bilirubin.direct [Mass/Vol] 0.09 mg/dL 0.00-0.30 [facility] Erythrocyte sedimentation ra teOrdered By: STEVEN BOLES on 03-07-2023 ESR (Bld) [Velocity] 19 mm/h 0-30 [facility] Hematocrit Auto (Bld) [Volum e fraction]Ordered By: STEVEN BOLES on 03-07-2023 Hematocrit (Bld) [Volume fraction] 38.7 % 37-47 [facility] Laboratory - Chemistry and C hemistry - challengeOrdered By: STEVEN BOLES on 03-07-2023 ALP [Catalytic activity/Vol] 69 U/L 45-117 [facility] ALT [Catalytic activity/Vol] 32 U/L 13-56 [facility] Globulin (S) [Mass/Vol] 3.8 g/dL 2.2-4.2 [facility] - Hematology and Cell countsOrdered By: STEVEN BOLES on 03-07-2023 Erythrocyte distribution width (RBC) [Entitic vol] 46.3 fL 35.1-43.9 [facility] Erythrocyte distribution width (RBC) [Ratio] 13.0 % 11.6-14.6 [facility] Immature granulocytes/100 WBC (Bld) 0.100 % 0.0-0.9 [facility] Comment on above: IG% - Immature Granu locytes (promyelocytes, myelocytes and metamyelocytes) > 1% indicates that a LEFT SHIFT is Present. MCH (RBC) [Entitic mass] 31.8 pg 27.0-32.0 [facility] Nucleated RBC/100 WBC (Bld) [Ratio] 0 % 0-5 [facility] MCHC Auto (RBC) [Mass/Vol]Or dered By: STEVEN BOLES on 03-07-2023 MCHC (RBC) [Mass/Vol] 32.3 g/dL 32-36 [facility] No Panel InformationOrdered By: STEVEN BOLES on 03-07-2023 Estimated GFR (MDRD) Amer 88 mL/min >60 [facility] Comment on above: GFR Calc Estimated GFR (MDRD) Non-Af Amer 73 mL/min >60 [facility] Comment on above: Non- GFR Calc Platelets bldOrdered By: IRENE BOLES on 03-07-2023 Platelets (Bld) [#/Vol] 326 10*3/uL 150-450 [facility] Serum or plasma C reactive p rotein measurement (mass/volume)Ordered By: STEVEN BOLES on 03-07-2023 CRP [Mass/Vol] 13.30 mg/L 0.0-3.0 [facility] Comment on above: C-Reactive Protein ( CRP) provides useful information for thediagnosis, therapy and monitoring of inflammatory processesand associated diseases. For the evaluation of Relative Riskfor Cardiovascular Disease, a High Sensitivity CRP (HSCRP)should be ordered. Serum or plasma albumin sancho urement (mass/volume)Ordered By: STEVEN BOLES on 03-07-2023 Albumin [Mass/Vol] 3.9 g/dL 3.2-5.0 [facility] Serum or plasma creatinine m easurement (mass/volume)Ordered By: STEVEN BOLES on 03-07-2023 Creatinine [Mass/Vol] 0.91 mg/dL 0.55-1.02 [facility] Comment on above: The validity of the calculated GFR & GFRAA in patients over 70 years has not been determined. Clinical correlation is essential. Thin prep Papanicolaou smear with manual screeningOrdered By: STEVEN BOLES on 03-07-2023 Thin prep Papanicolaou smear with manual screening 18 U/L 15-37 [facility] Basophil percentageOrdered B y: Cali Lou on 01-09-2023 Bilirubin [Mass/Vol] 0.30 mg/dL 0.20-1.00 [facility] Comment on above: For patients on eltr ombopag therapy, use of Dimension [place] TBIL is not recommended. Chloride [Moles/Vol] 106 mmol/L 98-107 [facility] Glucose [Mass/Vol] 90 mg/dL 74-106 [facility] Potassium [Moles/Vol] 4.1 mmol/L 3.5-5.1 [facility] Protein [Mass/Vol] 8.0 g/dL 6.4-8.2 [facility] Sodium [Moles/Vol] 138 mmol/L 136-145 [facility] Laboratory - Chemistry and C hemistry - challengeOrdered By: Cali Lou on 01-09-2023 ALP [Catalytic activity/Vol] 70 U/L 45-117 [facility] ALT [Catalytic activity/Vol] 23 U/L 13-56 [facility] CO2 [Moles/Vol] 25.0 mmol/L 21.0-32.0 [facility] Free T4 [Mass/Vol] 0.97 ng/dL 0.76-1.46 [facility] Globulin (S) [Mass/Vol] 4.1 g/dL 2.2-4.2 [facility] Urea nitrogen/Creatinine [Mass ratio] 19.8 mg/mg 10-20 [facility] No Panel InformationOrdered By: Cali Lou on 01-09-2023 Estimated GFR (MDRD) Amer 109 mL/min >60 [facility] Comment on above: GFR Calc Estimated GFR (MDRD) Non-Af Amer 90 mL/min >60 [facility] Comment on above: Non- GFR Calc Follicle Stimulating Hormone 19.8 mIU/mL [facility] Comment on above: NORMAL REFERENCE RAN GES FEMALE FOLLICULAR 2.3 - 12.6 mIU/mL MID-CYCLE PEAK 5.2 - 17.5 mIU/mL LUTEAL 1.7 - 12.9 mIU/mL POST-MENOPAUSAL ON MHT 5.9 - 72.8 mIU/mL NOT ON MHT 12.7 - 132.2 mlU/mL MALE 0.7 - 10.8 mIU/mL Luteinizing Hormone 10.0 mIU/mL [facility] Comment on above: NORMAL REFERENCE RAN GES FEMALE FOLLICULAR 1.9 - 26.2 mIU/mL MID-CYCLE PEAK 22.8 - 76.1 mIU/mL LUTEAL 0.6 - 16.6 mIU/mL POST-MENOPAUSAL ON MHT 1.1 - 52.4 mIU/mL NOT ON MHT 8.6 - 61.8 mIU/mL MALE 1.2 - 10.6 mIU/mL Parathyroid Hormone (Intact) 92.3 pg/mL 18.4-80.1 [facility] Thyroid Stimulating Hormone (TSH) 0.85 uIU/mL 0.358-3.74 [facility] Vitamin D 25-Hydroxy 47.0 ng/mL [facility] Comment on above: Vitamin D 25(OH) Sta tus Range Deficiency <20 ng/mL (50nmol/L) Insufficiency 20 - 30 ng/mL (50 - 75 nmol/L) Sufficiency 30 - 100 ng/mL (75 - 250 nmol/L) Toxicity >100 ng/mL (>250 nmol/L) Serum or plasma albumin sancho urement (mass/volume)Ordered By: Cali Lou on 01-09-2023 Albumin [Mass/Vol] 3.9 g/dL 3.2-5.0 [facility] Serum or plasma albumin/glob ulin mass ratioOrdered By: Cali Lou on 01-09-2023 Albumin/Globulin [Mass ratio] 1.0 {ratio} 0.9-2.4 [facility] Serum or plasma calcium sancho urement (mass/volume)Ordered By: Cali Lou on 01-09-2023 Calcium [Mass/Vol] 10.2 mg/dL 8.5-10.1 [facility] Serum or plasma creatinine m easurement (mass/volume)Ordered By: Cali Lou on 01-09-2023 Creatinine [Mass/Vol] 0.76 mg/dL 0.55-1.02 [facility] Comment on above: The validity of the calculated GFR & GFRAA in patients over 70 years has not been determined. Clinical correlation is essential. Serum or plasma estradiol (E 2) measurement (mass/volume)Ordered By: Cali Lou on 01-09-2023 E2 [Mass/Vol] 25.0 pg/mL [facility] Comment on above: NORMAL REFERENCE [...] 01-09-2023 Urea nitrogen [Mass/Vol] 15 mg/dL 7-18 [facility] Thin prep Papanicolaou smear with manual screeningOrdered By: Cali Lou on 01-09-2023 Thin prep Papanicolaou smear with manual screening 13 U/L 15-37 [facility] Thin prep Papanicolaou smear with manual screening 7 5-15 [facility] Erythrocyte sedimentation ra teOrdered By: STEVEN BOLES on 01-03-2023 ESR (Bld) [Velocity] 10 mm/h 0-30 [facility] Serum or plasma C reactive p rotein measurement (mass/volume)Ordered By: STEVEN BOLES on 01-03-2023 CRP [Mass/Vol] 6.98 mg/L 0.0-3.0 [facility] Comment on above: C-Reactive Protein ( CRP) provides useful information for thediagnosis, therapy and monitoring of inflammatory processesand associated diseases. For the evaluation of Relative Riskfor Cardiovascular Disease, a High Sensitivity CRP (HSCRP)should be ordered. Absolute lymphocyte countOrd ered By: STEVEN BOLES on 12-14-2022 Lymphocytes Auto (Unsp spec) [#/Vol] 1.23 10*3/uL 0.83-4.51 [facility] Basophil percentageOrdered B y: STEVEN BOLES on 12-14-2022 Basophils/100 WBC (Bld) 0.6 % 0-1 [facility] Bilirubin [Mass/Vol] 0.30 mg/dL 0.20-1.00 [facility] Comment on above: For patients on eltr ombopag therapy, use of Dimension [place] TBIL is not recommended. Eosinophils/100 WBC (Bld) 0.7 % 0-5 [facility] Neutrophils (Bld) [#/Vol] 8.0 10*3/uL 2.0-7.7 [facility] Neutrophils/100 WBC (Bld) 82.4 % 47-70 [facility] Protein [Mass/Vol] 7.3 g/dL 6.4-8.2 [facility] WBC (Bld) [#/Vol] 9.7 10*3/uL 4.4-11.0 [facility] Blood erythrocytes count (nu mber/volume)Ordered By: STEVEN BOLES on 12-14-2022 RBC (Bld) [#/Vol] 3.98 10*6/uL 4.2-5.4 [facility] Blood hemoglobin measurement (mass/volume)Ordered By: STEVEN BOLES on 12-14-2022 Hemoglobin (Bld) [Mass/Vol] 12.4 g/dL 12.0-15.0 [facility] Blood lymphocytes/100 leukoc ytesOrdered By: STEVEN BOLES on 12-14-2022 Lymphocytes/100 WBC (Bld) 12.7 % 19-41 [facility] Blood monocytes/100 leukocyt esOrdered By: STEVEN BOLES on 12-14-2022 Monocytes/100 WBC (Bld) 3.2 % 0-10 [facility] Blood platelet mean volumeOr dered By: STEVEN BOLES on 12-14-2022 Platelet mean volume (Bld) [Entitic vol] 9.4 fL 6.2-12.0 [facility] Determination of erythrocyte mean corpuscular volume (MCV)Ordered By: STEVEN BOLES on 12-14-2022 MCV (RBC) [Entitic vol] 96.7 fL 81-99 [facility] Direct bilirubinOrdered By: STEVEN BOLES on 12-14-2022 Bilirubin.direct [Mass/Vol] 0.09 mg/dL 0.00-0.30 [facility] Erythrocyte sedimentation ra teOrdered By: STEVEN BOLES on 12-14-2022 ESR (Bld) [Velocity] 20 mm/h 0-30 [facility] Hematocrit Auto (Bld) [Volum e fraction]Ordered By: STEVEN BOLES on 12-14-2022 Hematocrit (Bld) [Volume fraction] 38.5 % 37-47 [facility] Laboratory - Chemistry and C hemistry - challengeOrdered By: STEVEN BOLES on 12-14-2022 ALP [Catalytic activity/Vol] 59 U/L 45-117 [facility] ALT [Catalytic activity/Vol] 28 U/L 13-56 [facility] Globulin (S) [Mass/Vol] 3.6 g/dL 2.2-4.2 [facility] Laboratory - Hematology and Cell countsOrdered By: STEVEN BOLES on 12-14-2022 Erythrocyte distribution width (RBC) [Entitic vol] 49.9 fL 35.1-43.9 [facility] Erythrocyte distribution width (RBC) [Ratio] 14.0 % 11.6-14.6 [facility] Immature granulocytes/100 WBC (Bld) 0.400 % 0.0-0.9 [facility] Comment on above: IG% - Immature Granu locytes (promyelocytes, myelocytes and metamyelocytes) > 1% indicates that a LEFT SHIFT is Present. MCH (RBC) [Entitic mass] 31.2 pg 27.0-32.0 [facility] Nucleated RBC/100 WBC (Bld) [Ratio] 0 % 0-5 [facility] MCHC Auto (RBC) [Mass/Vol]Or dered By: STEVEN BLOES on 12-14-2022 MCHC (RBC) [Mass/Vol] 32.2 g/dL 32-36 [facility] No Panel InformationOrdered By: STEVEN BOLES on 12-14-2022 Estimated GFR (MDRD) Amer 106 mL/min >60 [facility] Comment on above: GFR Calc Estimated GFR (MDRD) Non-Af Amer 88 mL/min >60 [facility] Comment on above: Non- GFR Calc Platelets bldOrdered By: IRENE BOLES on 12-14-2022 Platelets (Bld) [#/Vol] 302 10*3/uL 150-450 [facility] Serum or plasma C reactive p rotein measurement (mass/volume)Ordered By: STEVEN BOLES on 12-14-2022 CRP [Mass/Vol] 8.54 mg/L 0.0-3.0 [facility] Comment on above: C-Reactive Protein ( CRP) provides useful information for thediagnosis, therapy and monitoring of inflammatory processesand associated diseases. For the evaluation of Relative Riskfor Cardiovascular Disease, a High Sensitivity CRP (HSCRP)should be ordered. Serum or plasma albumin sancho urement (mass/volume)Ordered By: STEVEN BOLES on 12-14-2022 Albumin [Mass/Vol] 3.7 g/dL 3.2-5.0 [facility] Serum or plasma creatinine m easurement (mass/volume)Ordered By: STEVEN BOLES on 12-14-2022 Creatinine [Mass/Vol] 0.77 mg/dL 0.55-1.02 [facility] Comment on above: The validity of the calculated GFR & GFRAA in patients over 70 years has not been determined. Clinical correlation is essential. Thin prep Papanicolaou smear with manual screeningOrdered By: STEVEN BOLES on 12-14-2022 Thin prep Papanicolaou smear with manual screening 22 U/L 15-37 [facility] Basophil percentageOrdered B y: Dirk Paula on 12-02-2022 Chloride [Moles/Vol] 106 mmol/L 98-107 [facility] Glucose [Mass/Vol] 99 mg/dL 74-106 [facility] Potassium [Moles/Vol] 4.2 mmol/L 3.5-5.1 [facility] Sodium [Moles/Vol] 139 mmol/L 136-145 [facility] Laboratory - Chemistry and C hemistry - challengeOrdered By: Dirk Paula on 12-02-2022 CO2 [Moles/Vol] 28.0 mmol/L 21.0-32.0 [facility] Urea nitrogen/Creatinine [Mass ratio] 18.1 mg/mg 10-20 [facility] No Panel InformationOrdered By: Dirk Paula on 12-02-2022 Estimated GFR (MDRD) Amer 106 mL/min >60 [facility] Comment on above: GFR Calc Estimated GFR (MDRD) Non-Af Amer 88 mL/min >60 [facility] Comment on above: Non- GFR Calc Serum or plasma calcium sancho urement (mass/volume)Ordered By: Dirk Paula on 12-02-2022 Calcium [Mass/Vol] 10.1 mg/dL 8.5-10.1 [facility] Serum or plasma creatinine m easurement (mass/volume)Ordered By: Dirk Paula on 12-02-2022 Creatinine [Mass/Vol] 0.77 mg/dL 0.55-1.02 [facility] Comment on above: The validity of the calculated GFR & GFRAA in patients over 70 years has not been determined. Clinical correlation is essential. Serum or plasma urea nitroge n measurement (mass/volume)Ordered By: Dirk Paula on 12-02-2022 Urea nitrogen [Mass/Vol] 14 mg/dL -18 [facility] Thin prep Papanicolaou smear with manual screeningOrdered By: Dirk Paula on 12-02-2022 Thin prep Papanicolaou smear with manual screening 5 5-15 [facility] No Panel InformationOrdered By: Dr. Lou on 11-01-2022 Parathyroid Hormone (Intact) 95.6 pg/mL 18.4-80.1 [facility] Thyroid Stimulating Hormone (TSH) 1.00 uIU/mL 0.358-3.74 [facility] Vitamin D 25-Hydroxy 37.3 ng/mL [facility] Comment on above: Vitamin D 25(OH) Sta tus Range Deficiency <20 ng/mL (50nmol/L) Insufficiency 20 - 30 ng/mL (50 - 75 nmol/L) Sufficiency 30 - 100 ng/mL (75 - 250 nmol/L) Toxicity >100 ng/mL (>250 nmol/L) Serum or plasma calcium sancho urement (mass/volume)Ordered By: Dr. Lou on 11-01-2022 Calcium [Mass/Vol] 10.4 mg/dL 8.5-10.1 [facility] Absolute lymphocyte countOrd ered By: STEVEN BOLES on 10-13-2022 Lymphocytes Auto (Unsp spec) [#/Vol] 2.23 10*3/uL 0.83-4.51 [facility] Basophil percentageOrdered B y: STEVEN BOLES on 10-13-2022 Basophils/100 WBC (Bld) 0.9 % 0-1 [facility] Bilirubin [Mass/Vol] 0.50 mg/dL 0.20-1.00 [facility] Comment on above: For patients on eltr ombopag therapy, use of Dimension [place] TBIL is not recommended. Eosinophils/100 WBC (Bld) 3.0 % 0-5 [facility] Neutrophils (Bld) [#/Vol] 4.0 10*3/uL 2.0-7.7 [facility] Neutrophils/100 WBC (Bld) 57.6 % 47-70 [facility] Protein [Mass/Vol] 7.7 g/dL 6.4-8.2 [facility] WBC (Bld) [#/Vol] 7.0 10*3/uL 4.4-11.0 [facility] Blood erythrocytes count (nu mber/volume)Ordered By: STEVEN BOLES on 10-13-2022 RBC (Bld) [#/Vol] 4.16 10*6/uL 4.2-5.4 [facility] Blood hemoglobin measurement (mass/volume)Ordered By: STEVEN BOLES on 10-13-2022 Hemoglobin (Bld) [Mass/Vol] 12.7 g/dL 12.0-15.0 [facility] Blood lymphocytes/100 leukoc ytesOrdered By: STEVEN BOLES on 10-13-2022 Lymphocytes/100 WBC (Bld) 32.0 % 19-41 [facility] Blood monocytes/100 leukocyt esOrdered By: STEVEN BOLES on 10-13-2022 Monocytes/100 WBC (Bld) 6.2 % 0-10 [facility] Blood platelet mean volumeOr dered By: STEVEN BOLES on 10-13-2022 Platelet mean volume (Bld) [Entitic vol] 10.2 fL 6.2-12.0 [facility] Determination of erythrocyte mean corpuscular volume (MCV)Ordered By: STEVEN BOLES on 10-13-2022 MCV (RBC) [Entitic vol] 95.4 fL 81-99 [facility] Direct bilirubinOrdered By: STEVEN BOLES on 10-13-2022 Bilirubin.direct [Mass/Vol] 0.14 mg/dL 0.00-0.30 [facility] Erythrocyte sedimentation ra teOrdered By: STEVEN BOLES on 10-13-2022 ESR (Bld) [Velocity] 24 mm/h 0-30 [facility] Hematocrit Auto (Bld) [Volum e fraction]Ordered By: STEVEN BOLES on 10-13-2022 Hematocrit (Bld) [Volume fraction] 39.7 % 37-47 [facility] Laboratory - Chemistry and C hemistry - challengeOrdered By: STEVEN BOLES on 10-13-2022 ALP [Catalytic activity/Vol] 60 U/L 45-117 [facility] ALT [Catalytic activity/Vol] 32 U/L 13-56 [facility] Globulin (S) [Mass/Vol] 3.6 g/dL 2.2-4.2 [facility] Laboratory - Hematology and Cell countsOrdered By: STEVEN BOLES on 10-13-2022 Erythrocyte distribution width (RBC) [Entitic vol] 43.9 fL 35.1-43.9 [facility] Erythrocyte distribution width (RBC) [Ratio] 12.6 % 11.6-14.6 [facility] Immature granulocytes/100 WBC (Bld) 0.300 % 0.0-0.9 [facility] Comment on above: IG% - Immature Granu locytes (promyelocytes, myelocytes and metamyelocytes) > 1% indicates that a LEFT SHIFT is Present. MCH (RBC) [Entitic mass] 30.5 pg 27.0-32.0 [facility] Nucleated RBC/100 [facility] (Bld) [[facility]] 0 [facility] [Mass/Vol]Or dered By: STEVEN BOLES on 10-13-2022 MCHC (RBC) [Mass/Vol] 32.0 g/dL 32-36 [facility] No Panel InformationOrdered By: STEVEN BOLES on 10-13-2022 Estimated GFR (MDRD) Amer 106 mL/min >60 [facility] Comment on above: GFR Calc Estimated GFR (MDRD) Non-Af Amer 88 mL/min >60 [facility] Comment on above: Non- GFR Calc Platelets bldOrdered By: IRENE BOLES on 10-13-2022 Platelets (Bld) [#/Vol] 312 10*3/uL 150-450 [facility] Serum cyclic citrullinated p eptide IgG antibody assay (units/volume)Ordered By: STEVEN BOLES on 10-13-2022 Cyclic citrullinated peptide IgG Qn 7 units 0-19 [facility] Comment on above: Negative <20 Weak po sitive 20 - 39 Moderate positive 40 - 59 Strong positive >59Performed at: [place] [id number] Director: Levi Covarrubias PhD, Phone: [phone] Serum or plasma C reactive p rotein measurement (mass/volume)Ordered By: STEVEN BOLES on 10-13-2022 CRP [Mass/Vol] mg/L 0.0-3.0 [facility] Comment on above: C-Reactive Protein ( CRP) provides useful information for thediagnosis, therapy and monitoring of inflammatory processesand associated diseases. For the evaluation of Relative Riskfor Cardiovascular Disease, a High Sensitivity CRP (HSCRP)should be ordered. Serum or plasma albumin sancho urement (mass/volume)Ordered By: STEVEN BOLES on 10-13-2022 Albumin [Mass/Vol] 4.1 g/dL 3.2-5.0 [facility] Serum or plasma complement C 3 measurement (mass/volume)Ordered By: STEVEN BOLES on 10-13-2022 Complement C3 [Mass/Vol] 163 mg/dL 82-167 [facility] Serum or plasma complement C 4 measurement (mass/volume)Ordered By: STEVEN BOLES on 10-13-2022 Complement C4 [Mass/Vol] 30 mg/dL 12-38 [facility] Serum or plasma creatinine m easurement (mass/volume)Ordered By: STEVEN BOLES on 10-13-2022 Creatinine [Mass/Vol] 0.77 mg/dL 0.55-1.02 [facility] Comment on above: The validity of the calculated GFR & GFRAA in patients over 70 years has not been determined. Clinical correlation is essential. Serum rheumatoid factor dete ctionOrdered By: STEVEN BOLES on 10-13-2022 Rheumatoid factor Ql (S) < 10.0 IU/mL <15 [facility] Thin prep Papanicolaou smear with manual screeningOrdered By: STEVEN BOLES on 10-13-2022 Thin prep Papanicolaou smear with manual screening 17 U/L 15-37 [facility] Laboratory - Chemistry and C hemistry - challengeOrdered By: Dirk Paula on 09-29-2022 Cobalamin (Vitamin B12) [Mass/Vol] 334 pg/mL 211-911 [facility] No Panel InformationOrdered By: Nicolette Blair on 09-29-2022 Hepatitis B Surface Antibody Reactive [facility] Comment on above: Non Reactive: Incons istent with immunity less than <10 mIU/mL Reactive: Consistent with immunity greater than or equal to 10 mIU/mL Laboratory - Microbiology an d Antimicrobial susceptibilityon 09-01-2022 S. pyogenes Ag IA Ql (Unsp spec) Negative [facility] No Panel Informationon 09-01 Influenza Types A,B Rapid (Clinic) Negative [facility] POC SARS CoV-2 Antigen Negative [facility] Laboratory - Hematology and Cell countson 08-15-2022 HbA1c (Bld) [Mass fraction] 5.8 % 4.2-6.3 [facility] Absolute lymphocyte countOrd ered By: Dr. Osorio on 08-04-2022 Lymphocytes Auto (Unsp spec) [#/Vol] 2.02 10*3/uL 0.83-4.51 [facility] Basophil percentageOrdered B y: Dr. Osorio on 08-04-2022 Basophils/100 WBC (Bld) 0.7 % 0-1 [facility] Bilirubin [Mass/Vol] 0.40 mg/dL 0.20-1.00 [facility] Comment on above: For patients on eltr ombopag therapy, use of Dimension [place] TBIL is not recommended. Chloride [Moles/Vol] 103 mmol/L 98-107 [facility] Eosinophils/100 WBC (Bld) 1.9 % 0-5 [facility] Glucose [Mass/Vol] 98 mg/dL 74-106 [facility] Neutrophils (Bld) [#/Vol] 2.8 10*3/uL 2.0-7.7 [facility] Neutrophils/100 WBC (Bld) 52.5 % 47-70 [facility] Potassium [Moles/Vol] 3.5 mmol/L 3.5-5.1 [facility] Protein [Mass/Vol] 7.7 g/dL 6.4-8.2 [facility] Sodium [Moles/Vol] 139 mmol/L 136-145 [facility] WBC (Bld) [#/Vol] 5.3 10*3/uL 4.4-11.0 [facility] Blood erythrocytes count (nu mber/volume)Ordered By: Dr. Osorio on 08-04-2022 RBC (Bld) [#/Vol] 3.99 10*6/uL 4.2-5.4 [facility] Blood hemoglobin measurement (mass/volume)Ordered By: Dr. Osorio on 08-04-2022 Hemoglobin (Bld) [Mass/Vol] 12.3 g/dL 12.0-15.0 [facility] Blood lymphocytes/100 leukoc ytesOrdered By: Dr. Osorio on 08-04-2022 Lymphocytes/100 WBC (Bld) 37.8 % 19-41 [facility] Blood monocytes/100 leukocyt esOrdered By: Dr. Osorio on 08-04-2022 Monocytes/100 WBC (Bld) 6.7 % 0-10 [facility] Blood platelet mean volumeOr dered By: Dr. Osorio on 01-19-2023 Platelet mean volume (Bld) [Entitic vol] 9.5 fL 6.2-12.0 [facility] Determination of erythrocyte mean corpuscular volume (MCV)Ordered By: Dr. Osorio on 08-04-2022 MCV (RBC) [Entitic vol] 95.7 fL 81-99 [facility] Hematocrit Auto (Bld) [Volum e fraction]Ordered By: Dr. Osorio on 08-04-2022 Hematocrit (Bld) [Volume fraction] 38.2 % 37-47 [facility] Laboratory - Chemistry and C hemistry - challengeOrdered By: Dr. Osorio on 08-04-2022 ALP [Catalytic activity/Vol] 57 U/L 45-117 [facility] ALT [Catalytic activity/Vol] 34 U/L 13-56 [facility] CO2 [Moles/Vol] 28.0 mmol/L 21.0-32.0 [facility] Globulin (S) [Mass/Vol] 3.8 g/dL 2.2-4.2 [facility] Urea nitrogen/Creatinine [Mass ratio] 12.9 mg/mg 10-20 [facility] Laboratory - Hematology and Cell countsOrdered By: Dr. Osorio on 08-04-2022 Erythrocyte distribution width (RBC) [Entitic vol] 45.3 fL 35.1-43.9 [facility] Erythrocyte distribution width (RBC) [Ratio] 13.1 % 11.6-14.6 [facility] Immature granulocytes/100 WBC (Bld) 0.400 % 0.0-0.9 [facility] Comment on above: IG% - Immature Granu locytes (promyelocytes, myelocytes and metamyelocytes) > 1% indicates that a LEFT SHIFT is Present. MCH (RBC) [Entitic mass] 30.8 pg 27.0-32.0 [facility] Nucleated RBC/100 WBC (Bld) [Ratio] 0 % 0-5 [facility] MCHC Auto (RBC) [Mass/Vol]Or dered By: Dr. Osorio on 08-04-2022 MCHC (RBC) [Mass/Vol] 32.2 g/dL 32-36 [facility] No Panel InformationOrdered By: Dr. Lou on 08-04-2022 Thyroid Stimulating Hormone (TSH) 1.23 uIU/mL 0.358-3.74 [facility] Vitamin D 25-Hydroxy 39.8 ng/mL [facility] Comment on above: Vitamin D 25(OH) Sta tus Range Deficiency <20 ng/mL (50nmol/L) Insufficiency 20 - 30 ng/mL (50 - 75 nmol/L) Sufficiency 30 - 100 ng/mL (75 - 250 nmol/L) Toxicity >100 ng/mL (>250 nmol/L) No Panel InformationOrdered By: Dr. Osorio on 08-04-2022 Estimated GFR (MDRD) Amer 95 mL/min >60 [facility] Comment on above: GFR Calc Estimated GFR (MDRD) Non-Af Amer 79 mL/min >60 [facility] Comment on above: Non- GFR Calc Platelets bldOrdered By: Dr. Osorio on 08-04-2022 Platelets (Bld) [#/Vol] 339 10*3/uL 150-450 [facility] Serum or plasma albumin sancho urement (mass/volume)Ordered By: Dr. Osorio on 08-04-2022 Albumin [Mass/Vol] 3.9 g/dL 3.2-5.0 [facility] Serum or plasma albumin/glob ulin mass ratioOrdered By: Dr. Osorio on 08-04-2022 Albumin/Globulin [Mass ratio] 1.0 {ratio} 0.9-2.4 [facility] Serum or plasma calcium sancho urement (mass/volume)Ordered By: Dr. Osorio on 08-04-2022 Calcium [Mass/Vol] 10.1 mg/dL 8.5-10.1 [facility] Serum or plasma creatinine m easurement (mass/volume)Ordered By: Dr. Osorio on 08-04-2022 Creatinine [Mass/Vol] 0.85 mg/dL 0.55-1.02 [facility] Comment on above: The validity of the calculated GFR & GFRAA in patients over 70 years has not been determined. Clinical correlation is essential. Serum or plasma urea nitroge n measurement (mass/volume)Ordered By: Dr. Osorio on 08-04-2022 Urea nitrogen [Mass/Vol] 11 mg/dL 7-18 [facility] Thin prep Papanicolaou smear with manual screeningOrdered By: Dr. Osorio on 08-04-2022 Thin prep Papanicolaou smear with manual screening 20 U/L 15-37 [facility] Thin prep Papanicolaou smear with manual screening 8 5-15 [facility] Qualitative QuantiFERON-TB g old in tube testOrdered By: Dr. Osorio on 06-24-2022 M. tuberculosis tuberculin stim IFN-g Ql (Bld) Not Reportable [facility] Thin prep Papanicolaou smear with manual screeningOrdered By: Dr. Osorio on 06-24-2022 Thin prep Papanicolaou smear with manual screening See comment [facility] Comment on above: TEST RESULT LIMITSQF T-TB [...] gamma.Chemiluminescence immunoassay methodology ____ [facility] PERFORMED AT [facility]. ORIGINAL REPORT ON FILE IN LAB CONTAINS ADDITIONAL TEST SITE INFORMATION. Thin prep Papanicolaou smear with manual screening Not Reportable [facility] Absolute lymphocyte countOrd ered By: Dr. Osorio on 06-13-2022 Lymphocytes Auto (Unsp spec) [#/Vol] 2.41 10*3/uL 0.83-4.51 [facility] Basophil percentageOrdered B y: Dr. Osorio on 06-13-2022 Basophils/100 WBC (Bld) 0.9 % 0-1 [facility] Bilirubin [Mass/Vol] 0.50 mg/dL 0.20-1.00 [facility] Comment on above: For patients on eltr ombopag therapy, use of Dim[place] TBIL is not recommended. Chloride [Moles/Vol] 101 mmol/L 98-107 [facility] Eosinophils/100 WBC (Bld) 1.7 % 0-5 [facility] Glucose [Mass/Vol] 117 mg/dL 74-106 [facility] Comment on above: Fasting Glucose resu lt from 100 to 125 mg/dL suggests IMPAIRED HOMEOSTASIS per A.D.A. criteria. Neutrophils (Bld) [#/Vol] 4.5 10*3/uL 2.0-7.7 [facility] Neutrophils/100 WBC (Bld) 58.9 % 47-70 [facility] Potassium [Moles/Vol] 3.5 mmol/L 3.5-5.1 [facility] Protein [Mass/Vol] 7.5 g/dL 6.4-8.2 [facility] Sodium [Moles/Vol] 136 mmol/L 136-145 [facility] WBC (Bld) [#/Vol] 7.6 10*3/uL 4.4-11.0 [facility] Blood erythrocytes count (nu mber/volume)Ordered By: Dr. Osorio on 06-13-2022 RBC (Bld) [#/Vol] 4.11 10*6/uL 4.2-5.4 [facility] Blood hemoglobin measurement (mass/volume)Ordered By: Dr. Osorio on 06-13-2022 Hemoglobin (Bld) [Mass/Vol] 12.9 g/dL 12.0-15.0 [facility] Blood lymphocytes/100 leukoc ytesOrdered By: Dr. Osorio on 06-13-2022 Lymphocytes/100 WBC (Bld) 31.9 % 19-41 [facility] Blood monocytes/100 leukocyt esOrdered By: Dr. Osorio on 06-13-2022 Monocytes/100 WBC (Bld) 6.3 % 0-10 [facility] Blood platelet mean volumeOr dered By: Dr. Osorio on 06-13-2022 Platelet mean volume (Bld) [Entitic vol] 8.9 fL 6.2-12.0 [facility] Determination of erythrocyte mean corpuscular volume (MCV)Ordered By: Dr. Osorio on 06-13-2022 MCV (RBC) [Entitic vol] 94.9 fL 81-99 [facility] HIV 1 and HIV-2 antibody ass ay with HIV-1 p24 antigen detectionOrdered By: Nicolette Blair on 06-13-2022 HIV 1+2 Ab+HIV1 p24 Ag IA Ql Non-Reactive Nonreactive [facility] Hematocrit Auto (Bld) [Volum e fraction]Ordered By: Dr. Osorio on 06-13-2022 Hematocrit (Bld) [Volume fraction] 39.0 % 37-47 [facility] Laboratory - Chemistry and C hemistry - challengeOrdered By: Dr. Osorio on 06-13-2022 ALP [Catalytic activity/Vol] 66 U/L 45-117 [facility] ALT [Catalytic activity/Vol] 22 U/L 13-56 [facility] CO2 [Moles/Vol] 28.0 mmol/L 21.0-32.0 [facility] Globulin (S) [Mass/Vol] 3.8 g/dL 2.2-4.2 [facility] Urea nitrogen/Creatinine [Mass ratio] 13.9 mg/mg 10-20 [facility] Laboratory - Chemistry and C hemistry - challengeOrdered By: Dr. Lou on 06-13-2022 Free T4 [Mass/Vol] 1.00 ng/dL 0.76-1.46 [facility] Laboratory - Hematology and Cell countsOrdered By: Dr. Osorio on 06-13-2022 Erythrocyte distribution width (RBC) [Entitic vol] 47.2 fL 35.1-43.9 [facility] Erythrocyte distribution width (RBC) [Ratio] 13.4 % 11.6-14.6 [facility] Immature granulocytes/100 WBC (Bld) 0.300 % 0.0-0.9 [facility] Comment on above: IG% - Immature Granu locytes (promyelocytes, myelocytes and metamyelocytes) > 1% indicates that a LEFT SHIFT is Present. MCH (RBC) [Entitic mass] 31.4 pg 27.0-32.0 [facility] Nucleated RBC/100 WBC (Bld) [Ratio] 0 % 0-5 [facility] MCHC Auto (RBC) [Mass/Vol]Or dered By: Dr. Osorio on 06-13-2022 MCHC (RBC) [Mass/Vol] 33.1 g/dL 32-36 [facility] No Panel InformationOrdered By: Dr. Osorio on 06-13-2022 Estimated GFR (MDRD) Amer 94 mL/min >60 [facility] Comment on above: GFR Calc Estimated GFR (MDRD) Non-Af Amer 77 mL/min >60 [facility] Comment on above: Non- GFR Calc No Panel InformationOrdered By: Nicolette Blair on 06-13-2022 Hepatitis B Surface Antigen Non-Reactive Nonreactive [facility] Hepatitis C Antibody Non-Reactive Nonreactive [facility] Comment on above: Non Reactive: < 0.8 Equivocal: >/= 0.8 to < 1.0 Reactive: >/= 1.0The CDC recommends that a reactive/equivocal HCV antibody result be followed up by the HCV Nucleic Acid Amplificationtest (790497) No Panel InformationOrdered By: Dr. Lou on 06-13-2022 Parathyroid Hormone (Intact) 138.9 pg/mL 18.4-80.1 [facility] Thyroid Stimulating Hormone (TSH) 0.99 uIU/mL 0.358-3.74 [facility] Vitamin D 25-Hydroxy 14.3 ng/mL [facility] Comment on above: Vitamin D 25(OH) Sta tus Range Deficiency <20 ng/mL (50nmol/L) Insufficiency 20 - 30 ng/mL (50 - 75 nmol/L) Sufficiency 30 - 100 ng/mL (75 - 250 nmol/L) Toxicity >100 ng/mL (>250 nmol/L) Platelets bldOrdered By: Dr. Osorio on 06-13-2022 Platelets (Bld) [#/Vol] 345 10*3/uL 150-450 [facility] Serum or plasma albumin sancho urement (mass/volume)Ordered By: Dr. Osorio on 06-13-2022 Albumin [Mass/Vol] 3.7 g/dL 3.2-5.0 [facility] Serum or plasma albumin/glob ulin mass ratioOrdered By: Dr. Osorio on 06-13-2022 Albumin/Globulin [Mass ratio] 1.0 {ratio} 0.9-2.4 [facility] Serum or plasma calcium sancho urement (mass/volume)Ordered By: Dr. Osorio on 06-13-2022 Calcium [Mass/Vol] 9.5 mg/dL 8.5-10.1 [facility] Serum or plasma creatinine m easurement (mass/volume)Ordered By: Dr. Osorio on 06-13-2022 Creatinine [Mass/Vol] 0.86 mg/dL 0.55-1.02 [facility] Comment on above: The validity of the calculated GFR & GFRAA in patients over 70 years has not been determined. Clinical correlation is essential. Serum or plasma thyroperoxid ase antibody assay (units/volume)Ordered By: Dr. Lou on 06-13-2022 TPO Ab Qn 26 [IU]/mL 0-34 [facility] Comment on above: Performed at: [place] [id number] Director: Levi Covarrubias PhD, Phone: [phone] Serum or plasma urea nitroge n measurement (mass/volume)Ordered By: Dr. Osorio on 06-13-2022 Urea nitrogen [Mass/Vol] 12 mg/dL 7-18 [facility] Thin prep Papanicolaou smear with manual screeningOrdered By: Dr. Osorio on 06-13-2022 Thin prep Papanicolaou smear with manual screening 13 U/L 15-37 [facility] Thin prep Papanicolaou smear with manual screening 7 5-15 [facility] Absolute lymphocyte countOrd ered By: Dr. Osorio on 04-22-2022 Lymphocytes Auto (Unsp spec) [#/Vol] 1.57 10*3/uL 0.83-4.51 [facility] Basophil percentageOrdered B y: Dr. Osorio on 04-22-2022 Basophils/100 WBC (Bld) 0.3 % 0-1 [facility] Bilirubin [Mass/Vol] 0.40 mg/dL 0.20-1.00 [facility] Comment on above: For patients on eltr ombopag therapy, use of Dimension [place] TBIL is not recommended. Chloride [Moles/Vol] 104 mmol/L 98-107 [facility] Eosinophils/100 WBC (Bld) 1.3 % 0-5 [facility] Glucose [Mass/Vol] 94 mg/dL 74-106 [facility] Neutrophils (Bld) [#/Vol] 5.4 10*3/uL 2.0-7.7 [facility] Neutrophils/100 WBC (Bld) 70.0 % 47-70 [facility] Potassium [Moles/Vol] 3.8 mmol/L 3.5-5.1 [facility] Protein [Mass/Vol] 8.2 g/dL 6.4-8.2 [facility] Sodium [Moles/Vol] 139 mmol/L 136-145 [facility] WBC (Bld) [#/Vol] 7.7 10*3/uL 4.4-11.0 [facility] Blood erythrocytes count (nu mber/volume)Ordered By: Dr. Osorio on 04-22-2022 RBC (Bld) [#/Vol] 4.47 10*6/uL 4.2-5.4 [facility] Blood hemoglobin measurement (mass/volume)Ordered By: Dr. Osorio on 04-22-2022 Hemoglobin (Bld) [Mass/Vol] 13.5 g/dL 12.0-15.0 [facility] Blood lymphocytes/100 leukoc ytesOrdered By: Dr. Osorio on 04-22-2022 Lymphocytes/100 WBC (Bld) 20.3 % 19-41 [facility] Blood monocytes/100 leukocyt esOrdered By: Dr. Osorio on 04-22-2022 Monocytes/100 WBC (Bld) 7.8 % 0-10 [facility] Blood platelet mean volumeOr dered By: Dr. Osorio on 04-22-2022 Platelet mean volume (Bld) [Entitic vol] 9.3 fL 6.2-12.0 [facility] Clostridium difficile detect ion by polymerase chain reactionOrdered By: Dirk Paula on 04-22-2022 C. difficile DNA TERESA+probe Ql (Unsp spec) [facility] Determination of erythrocyte mean corpuscular volume (MCV)Ordered By: Dr. Osorio on 04-22-2022 MCV (RBC) [Entitic vol] 94.0 fL 81-99 [facility] EP PanelOrdered By: Dirk viramontes on 04-22-2022 Gastrointestinal pathogens panel TERESA+probe (Stl) [facility] Hematocrit Auto (Bld) [Volum e fraction]Ordered By: Dr. Osorio on 04-22-2022 Hematocrit (Bld) [Volume fraction] 42.0 % 37-47 [facility] Laboratory - Chemistry and C hemistry - challengeOrdered By: Dr. Osorio on 04-22-2022 ALP [Catalytic activity/Vol] 76 U/L 45-117 [facility] ALT [Catalytic activity/Vol] 29 U/L 13-56 [facility] CO2 [Moles/Vol] 26.0 mmol/L 21.0-32.0 [facility] Globulin (S) [Mass/Vol] 4.3 g/dL 2.2-4.2 [facility] Urea nitrogen/Creatinine [Mass ratio] 9.1 mg/mg 10-20 [facility] Laboratory - Hematology and Cell countsOrdered By: Dr. Osorio on 04-22-2022 Erythrocyte distribution width (RBC) [Entitic vol] 44.7 fL 35.1-43.9 [facility] Erythrocyte distribution width (RBC) [Ratio] 13.2 % 11.6-14.6 [facility] Immature granulocytes/100 WBC (Bld) 0.300 % 0.0-0.9 [facility] Comment on above: IG% - Immature Granu locytes (promyelocytes, myelocytes and metamyelocytes) > 1% indicates that a LEFT SHIFT is Present. MCH (RBC) [Entitic mass] 30.2 pg 27.0-32.0 [facility] Nucleated RBC/100 WBC (Bld) [Ratio] 0 % 0-5 [facility] MCHC Auto (RBC) [Mass/Vol]Or dered By: Dr. Osorio on 04-22-2022 MCHC (RBC) [Mass/Vol] 32.1 g/dL 32-36 [facility] No Panel InformationOrdered By: Dr. Osorio on 04-22-2022 Estimated GFR (MDRD) Amer 71 mL/min >60 [facility] Comment on above: GFR Calc Estimated GFR (MDRD) Non-Af Amer 59 mL/min >60 [facility] Comment on above: Non- GFR Calc Platelets bldOrdered By: Dr. Osorio on 04-22-2022 Platelets (Bld) [#/Vol] 390 10*3/uL 150-450 [facility] Serum or plasma albumin sancho urement (mass/volume)Ordered By: Dr. Osorio on 04-22-2022 Albumin [Mass/Vol] 3.9 g/dL 3.2-5.0 [facility] Serum or plasma albumin/glob ulin mass ratioOrdered By: Dr. Osorio on 04-22-2022 Albumin/Globulin [Mass ratio] 0.9 {ratio} 0.9-2.4 [facility] Serum or plasma calcium sancho urement (mass/volume)Ordered By: Dr. Osorio on 04-22-2022 Calcium [Mass/Vol] 10.5 mg/dL 8.5-10.1 [facility] Serum or plasma creatinine m easurement (mass/volume)Ordered By: Dr. Osorio on 04-22-2022 Creatinine [Mass/Vol] 1.10 mg/dL 0.55-1.02 [facility] Comment on above: The validity of the calculated GFR & GFRAA in patients over 70 years has not been determined. Clinical correlation is essential. Serum or plasma urea nitroge n measurement (mass/volume)Ordered By: Dr. Osorio on 04-22-2022 Urea nitrogen [Mass/Vol] 10 mg/dL 7-18 [facility] Thin prep Papanicolaou smear with manual screeningOrdered By: Dr. Osorio on 04-22-2022 Thin prep Papanicolaou smear with manual screening 23 U/L 15-37 [facility] Thin prep Papanicolaou smear with manual screening 9 5-15 [facility] Absolute lymphocyte counton 03-22-2022 Lymphocytes Auto (Unsp spec) [#/Vol] 2.15 10*3/uL 0.83-4.51 [facility] Work Phone: Absolute reticulocyte counto n 03-22-2022 Reticulocytes (Bld) [#/Vol] 0.00 10*3/uL 0-5 [facility] Work Phone: Basophil percentageon 2021 Basophil percentage 3.3 mg/dL 2.5-4.9 [facility] Work Phone: Bilirubin [Mass/Vol] 0.40 mg/dL 0.20-1.00 [facility] Work Phone: Comment on above: For patients on eltr ombopag therapy, use of Dimension [place] TBIL is not recommended. Chloride [Moles/Vol] 105 mmol/L 98-107 [facility] Work Phone: Cholesterol [Mass/Vol] 162 mg/dL <200 [facility] Work Phone: Comment on above: <200 mg/dL Desirable 200-240 mg/dL Borderline >240 mg/dL High Risk Glucose [Mass/Vol] 103 mg/dL 74-106 [facility] Work Phone: Comment on above: Fasting Glucose resu lt from 100 to 125 mg/dL suggests IMPAIRED HOMEOSTASIS per A.D.A. criteria. Neutrophils (Bld) [#/Vol] 4.1 10*3/uL 2.0-7.7 [facility] Work Phone: Potassium [Moles/Vol] 3.9 mmol/L 3.5-5.1 [facility] Work Phone: Protein [Mass/Vol] 7.1 g/dL 6.4-8.2 [facility] Work Phone: Sodium [Moles/Vol] 139 mmol/L 136-145 [facility] Work Phone: Triglyceride [Mass/Vol] 109 mg/dL <199 [facility] Work Phone: Comment on above: The drugs N-Acetylcy steine and Metamizole may falsely depress this assay.Serum Triglycerides Reference Interval Normal <150 mg/dL Borderline high 150 - 199 mg/dL High 200 - 499 mg/dL Very High > or = 500 mg/dL WBC (Bld) [#/Vol] 7.0 10*3/uL 4.4-11.0 [facility] Work Phone: Bilirubin Test strip Ql (U)o n 03-22-2022 Bilirubin Ql (U) Negative Negative [facility] Work Phone: Blood erythrocytes count (nu mber/volume)on 03-22-2022 RBC (Bld) [#/Vol] 3.97 10*6/uL 4.2-5.4 [facility] Work Phone: Blood hemoglobin measurement (mass/volume)on 03-22-2022 Hemoglobin (Bld) [Mass/Vol] 12.1 g/dL 12.0-15.0 [facility] Work Phone: Blood platelet mean volumeon 03-22-2022 Platelet mean volume (Bld) [Entitic vol] 9.6 fL 6.2-12.0 [facility] Work Phone: Determination of erythrocyte mean corpuscular volume (MCV)on 03-22-2022 MCV (RBC) [Entitic vol] 95.5 fL 81-99 [facility] Work Phone: Direct bilirubinon Bilirubin.direct [Mass/Vol] 0.11 mg/dL 0.00-0.30 [facility] Work Phone: Hematocrit Auto (Bld) [Volum e fraction]on 03-22-2022 Hematocrit (Bld) [Volume fraction] 37.9 % 37-47 [facility] Work Phone: [phone] Ketones Test strip Ql (U)on 03-22-2022 Ketones Ql (U) Negative Negative [facility] Work Phone: [phone] Laboratory - Chemistry and C hemistry - challengeon 03-22-2022 ALP [Catalytic activity/Vol] 60 U/L 45-117 [facility] Work Phone: ALT [Catalytic activity/Vol] 17 U/L 13-56 [facility] Work Phone: Cholesterol.total/Cho lesterol in HDL [Mass ratio] 2.80 {ratio} [facility] Work Phone: [phone] CO2 [Moles/Vol] 27.0 mmol/L 21.0-32.0 [facility] Work Phone: [phone] Free T4 [Mass/Vol] 1.03 ng/dL 0.76-1.46 [facility] Work Phone: [phone] Globulin (S) [Mass/Vol] 3.7 g/dL 2.2-4.2 [facility] Work Phone: [phone] Urea nitrogen/Creatinine [Mass ratio] 13.0 mg/mg 10-20 [facility] Work Phone: [phone] Laboratory - Hematology and Cell countson 03-22-2022 Erythrocyte distribution width (RBC) [Entitic vol] 45.8 fL 35.1-43.9 [facility] Work Phone: Erythrocyte distribution width (RBC) [Ratio] 13.1 % 11.6-14.6 [facility] Work Phone: [phone] MCH (RBC) [Entitic mass] 30.5 pg 27.0-32.0 [facility] Work Phone: Nucleated RBC/100 WBC (Bld) [Ratio] 0 % 0-5 [facility] Work Phone: [phone] MCHC Auto (RBC) [Mass/Vol]on 03-22-2022 MCHC (RBC) [Mass/Vol] 31.9 g/dL 32-36 [facility] Work Phone: Nitrite Test strip Ql (U)on 03-22-2022 Nitrite Ql (U) Negative Negative [facility] Work Phone: No Panel Informationon 03-22 Estimated GFR (MDRD) Amer 96 mL/min >60 [facility] Work Phone: Comment on above: GFR Calc Estimated GFR (MDRD) Non-Af Amer 79 mL/min >60 [facility] Work Phone: Comment on above: Non- GFR Calc Thyroid Stimulating Hormone (TSH) 0.35 uIU/mL 0.358-3.74 [facility] Work Phone: [phone] Platelets bldon 03-22-2022 Platelets (Bld) [#/Vol] 316 10*3/uL 150-450 [facility] Work Phone: [phone] Protein Test strip Ql (U)on 03-22-2022 Protein Ql (U) Negative Negative [facility] Work Phone: [phone] Segmented neutrophils/100 WB C Auto (Bld)on 03-22-2022 Segmented neutrophils/100 WBC (Bld) 58.9 % 47-70 [facility] Work Phone: [phone] Serum or plasma albumin sancho urement (mass/volume)on 03-22-2022 Albumin [Mass/Vol] 3.4 g/dL 3.2-5.0 [facility] Work Phone: [phone] Serum or plasma albumin/glob ulin mass ratioon 03-22-2022 Albumin/Globulin [Mass ratio] 0.9 {ratio} 0.9-2.4 [facility] Work Phone: [phone] Serum or plasma calcium sancho urement (mass/volume)on 03-22-2022 Calcium [Mass/Vol] 9.6 mg/dL 8.5-10.1 [facility] Work Phone: [phone] Serum or plasma cholesterol in HDL measurement (mass/volume)on 03-22-2022 Cholesterol in HDL [Mass/Vol] 57 mg/dL >40 [facility] Work Phone: Comment on above: The drugs N-Acetylcy steine and Metamizole may falsely depress this assay. Reference Range HDL <40 mg/dL Low HDL Cholesterol HDL >or= 60 mg/dL High HDL Cholesterol Serum or plasma cholesterol in VLDL measurement (mass/volume)on 03-22-2022 Cholesterol in VLDL [Mass/Vol] 22 mg/dL 5-40 [facility] Work Phone: Serum or plasma creatinine m easurement (mass/volume)on 03-22-2022 Creatinine [Mass/Vol] 0.85 mg/dL 0.55-1.02 [facility] Work Phone: Comment on above: The validity of the calculated GFR & GFRAA in patients over 70 years has not been determined. Clinical correlation is essential. Serum or plasma low density lipoprotein (LDL) cholesterol measurement (mass/volume)on 03-22-2022 Cholesterol in LDL [Mass/Vol] 83 mg/dL 0-130 [facility] Work Phone: Serum or plasma urea nitroge n measurement (mass/volume)on 03-22-2022 Urea nitrogen [Mass/Vol] 11 mg/dL 7-18 [facility] Work Phone: Serum or plasma uric acid me asurement (mass/volume)on 03-22-2022 Urate [Mass/Vol] 7.0 mg/dL 2.6-6.0 [facility] Work Phone: Comment on above: The drugs N-Acetylcy steine and Metamizole may falsely depress this assay. Thin prep Papanicolaou smear with manual screeningon 03-22-2022 Thin prep Papanicolaou smear with manual screening 13 U/L 15-37 [facility] Work Phone: Thin prep Papanicolaou smear with manual screening 7 5-15 [facility] Work Phone: Thin prep Papanicolaou smear with manual screening 215 U/L 84-246 [facility] Work Phone: Urine blood detectionon 09-0 RBC Ql (U) Negative Negative [facility] Work Phone: Urine clarityon 03-22-2022 Clarity (U) Clear Clear [facility] Work Phone: Urine color determinationon 03-22-2022 Color (U) Straw Yellow [facility] Work Phone: Urine glucose detectionon Glucose Ql (U) Normal mg/dl Normal [facility] Work Phone: Urine leukocyte esterase det ection by dipstickon 03-22-2022 Leukocyte esterase Test strip Ql (U) Negative Negative [facility] Work Phone: Urine pHon 03-22-2022 pH (U) 7.0 [pH] 5.0 - 8.0 [facility] Work Phone: Urine specific gravity measu rementon 03-22-2022 Specific gravity (U) [Rel density] 1.010 1.002-1.030 [facility] Work Phone: Urobilinogen Auto test strip Ql (U)on 03-22-2022 Urobilinogen Ql (U) Normal mg/dl Normal [facility] Work Phone: HIV 1 and HIV-2 antibody ass ay with HIV-1 p24 antigen detectionon 03-07-2022 HIV 1+2 Ab+HIV1 p24 Ag IA Ql Non-Reactive Nonreactive [facility] Work Phone: No Panel Informationon 03-07 Hepatitis B Surface Antigen Non-Reactive Nonreactive [facility] Work Phone: Hepatitis C Antibody Non-Reactive Nonreactive [facility] Work Phone: Comment on above: Non Reactive: < 0.8 Equivocal: >/= 0.8 to < 1.0 Reactive: >/= 1.0The CDC recommends that a reactive/equivocal HCV antibody result be followed up by the HCV Nucleic Acid Amplificationtest (358538) Serum hepatitis B virus surf tracy antibody IgG detectionon 03-07-2022 HBV surface IgG Ql (S) Reactive [facility] Work Phone: [phone] Comment on above: Non Reactive: Incons istent with immunity less than <10 mIU/mL Reactive: Consistent with immunity greater than or equal to 10 mIU/mL Laboratory - Microbiology an d Antimicrobial susceptibilityon 02-10-2022 SARS-CoV-2 (COVID-19) RNA TERESA+probe Ql (Unsp spec) Detected [facility] Work Phone: [phone] No Panel Informationon 02-10 Influenza Types A,B Rapid (Clinic) Not detected [facility] Work Phone: [phone] Absolute lymphocyte counton 01-11-2022 Lymphocytes Auto (Unsp spec) [#/Vol] 1.75 10*3/uL 0.83-4.51 [facility] Work Phone: [phone] Basophil percentageon 2021 Basophils/100 WBC (Bld) 0.8 % 0-1 [facility] Work Phone: [phone] Bilirubin [Mass/Vol] 0.30 mg/dL 0.20-1.00 [facility] Work Phone: [phone] Comment on above: For patients on eltr ombopag therapy, use of Dimension [place] TBIL is not recommended. Chloride [Moles/Vol] 103 mmol/L 98-107 [facility] Work Phone: Eosinophils/100 WBC (Bld) 2.5 % 0-5 [facility] Work Phone: [phone] Glucose [Mass/Vol] 93 mg/dL 74-106 [facility] Work Phone: Neutrophils (Bld) [#/Vol] 4.9 10*3/uL 2.0-7.7 [facility] Work Phone: Neutrophils/100 WBC (Bld) 65.7 % 47-70 [facility] Work Phone: [phone] Potassium [Moles/Vol] 3.9 mmol/L 3.5-5.1 [facility] Work Phone: [phone] Protein [Mass/Vol] 7.5 g/dL 6.4-8.2 [facility] Work Phone: Sodium [Moles/Vol] 138 mmol/L 136-145 [facility] Work Phone: WBC (Bld) [#/Vol] 7.5 10*3/uL 4.4-11.0 [facility] Work Phone: Blood erythrocytes count (nu mber/volume)on 01-11-2022 RBC (Bld) [#/Vol] 3.88 10*6/uL 4.2-5.4 [facility] Work Phone: [phone] Blood hemoglobin measurement (mass/volume)on 01-11-2022 Hemoglobin (Bld) [Mass/Vol] 12.4 g/dL 12.0-15.0 [facility] Work Phone: Blood lymphocytes/100 leukoc yteson 01-11-2022 Lymphocytes/100 WBC (Bld) 23.3 % 19-41 [facility] Work Phone: Blood monocytes/100 leukocyt eson 01-11-2022 Monocytes/100 WBC (Bld) 7.3 % 0-10 [facility] Work Phone: Blood platelet mean volumeon 01-11-2022 Platelet mean volume (Bld) [Entitic vol] 9.5 fL 6.2-12.0 [facility] Work Phone: [phone] Determination of erythrocyte mean corpuscular volume (MCV)on 01-11-2022 MCV (RBC) [Entitic vol] 109.3 fL 81-99 [facility] Work Phone: Hematocrit Auto (Bld) [Volum e fraction]on 01-11-2022 Hematocrit (Bld) [Volume fraction] 42.4 % 37-47 [facility] Work Phone: [phone] Laboratory - Chemistry and C hemistry - challengeon 01-11-2022 Free T4 [Mass/Vol] 0.96 ng/dL 0.76-1.46 [facility] Work Phone: ALP [Catalytic activity/Vol] 72 U/L 45-117 [facility] Work Phone: ALT [Catalytic activity/Vol] 18 U/L 13-56 [facility] Work Phone: CO2 [Moles/Vol] 30.0 mmol/L 21.0-32.0 [facility] Work Phone: [phone] Globulin (S) [Mass/Vol] 3.9 g/dL 2.2-4.2 [facility] Work Phone: [phone] Urea nitrogen/Creatinine [Mass ratio] 8.1 mg/mg 10-20 [facility] Work Phone: Laboratory - Hematology and Cell countson 01-11-2022 Erythrocyte distribution width (RBC) [Entitic vol] 57.1 fL 35.1-43.9 [facility] Work Phone: [phone] Erythrocyte distribution width (RBC) [Ratio] 14.1 % 11.6-14.6 [facility] Work Phone: [phone] Immature granulocytes/100 WBC (Bld) 0.400 % 0.0-0.9 [facility] Work Phone: Comment on above: IG% - Immature Granu locytes (promyelocytes, myelocytes and metamyelocytes) > 1% indicates that a LEFT SHIFT is Present. MCH (RBC) [Entitic mass] 32.0 pg 27.0-32.0 [facility] Work Phone: [phone] Nucleated RBC/100 WBC (Bld) [Ratio] 0 % 0-5 [facility] Work Phone: MCHC Auto (RBC) [Mass/Vol]on 01-11-2022 MCHC (RBC) [Mass/Vol] 29.2 g/dL 32-36 [facility] Work Phone: No Panel Informationon 01-11 Thyroid Stimulating Hormone (TSH) 0.32 uIU/mL 0.358-3.74 [facility] Work Phone: [phone] Estimated GFR (MDRD) Amer 112 mL/min >60 [facility] Work Phone: Comment on above: GFR Calc Estimated GFR (MDRD) Non-Af Amer 93 mL/min >60 [facility] Work Phone: Comment on above: Non- GFR Calc Platelets bldon 01-11-2022 Platelets (Bld) [#/Vol] 255 10*3/uL 150-450 [facility] Work Phone: Serum or plasma albumin sancho urement (mass/volume)on 01-11-2022 Albumin [Mass/Vol] 3.6 g/dL 3.2-5.0 [facility] Work Phone: Serum or plasma albumin/glob ulin mass ratioon 01-11-2022 Albumin/Globulin [Mass ratio] 0.9 {ratio} 0.9-2.4 [facility] Work Phone: Serum or plasma calcium sancho urement (mass/volume)on 01-11-2022 Calcium [Mass/Vol] 9.8 mg/dL 8.5-10.1 [facility] Work Phone: Serum or plasma creatinine m easurement (mass/volume)on 01-11-2022 Creatinine [Mass/Vol] 0.74 mg/dL 0.55-1.02 [facility] Work Phone: Comment on above: The validity of the calculated GFR & GFRAA in patients over 70 years has not been determined. Clinical correlation is essential. Serum or plasma urea nitroge n measurement (mass/volume)on 01-11-2022 Urea nitrogen [Mass/Vol] 6 mg/dL 7-18 [facility] Work Phone: Thin prep Papanicolaou smear with manual screeningon 01-11-2022 Thin prep Papanicolaou smear with manual screening 12 U/L 15-37 [facility] Work Phone: Thin prep Papanicolaou smear with manual screening 5 5-15 [facility] Work Phone: Absolute lymphocyte counton 12-27-2021 Lymphocytes Auto (Unsp spec) [#/Vol] 2.52 10*3/uL 0.83-4.51 [facility] Work Phone: Basophil percentageon 2021 Chloride [Moles/Vol] 103 mmol/L 98-107 [facility]: Glucose [Mass/Vol] 84 mg/dL 74-106 [facility] Work Phone: Potassium [Moles/Vol] 3.9 mmol/L 3.5-5.1 [facility] Work Phone: Sodium [Moles/Vol] 138 mmol/L 136-145 [facility] Work [facility]: Basophils/100 WBC (Bld) 0.6 % 0-1 [facility] Work Phone: Eosinophils/100 WBC (Bld) 2.6 % 0-5 [facility] Work Phone: Neutrophils (Bld) [#/Vol] 3.6 10*3/uL 2.0-7.7 [facility] Work Phone: Neutrophils/100 WBC (Bld) 53.3 % 47-70 [facility] Work Phone: WBC (Bld) [#/Vol] 6.8 10*3/uL 4.4-11.0 [facility] Work Phone: Blood erythrocytes count (nu mber/volume)on 12-27-2021 RBC (Bld) [#/Vol] 4.19 10*6/uL 4.2-5.4 [facility] Work Phone: Blood hemoglobin measurement (mass/volume)on 12-27-2021 Hemoglobin (Bld) [Mass/Vol] 12.8 g/dL 12.0-15.0 [facility] Work Phone: Blood lymphocytes/100 leukoc yteson 12-27-2021 Lymphocytes/100 WBC (Bld) 37.0 % 19-41 [facility] Work Phone: Blood monocytes/100 leukocyt eson 12-27-2021 Monocytes/100 WBC (Bld) 6.2 % 0-10 [facility] Work Phone: [phone] Blood platelet mean volumeon 12-27-2021 Platelet mean volume (Bld) [Entitic vol] 9.8 fL 6.2-12.0 [facility] Work Phone: Determination of erythrocyte mean corpuscular volume (MCV)on 12-27-2021 MCV (RBC) [Entitic vol] 95.5 fL 81-99 [facility] Work Phone: [phone] Hematocrit Auto (Bld) [Volum e fraction]on 12-27-2021 Hematocrit (Bld) [Volume fraction] 40.0 % 37-47 [facility] Work Phone: [phone] Iron measurement (mass/mass) on 12-27-2021 Iron (Unsp spec) [Mass/Mass] 55 ug/dL 50-170 [facility] Work Phone: Laboratory - Chemistry and C hemistry - challengeon 12-27-2021 CO2 [Moles/Vol] 29.0 mmol/L 21.0-32.0 [facility] Work Phone: [phone] Urea nitrogen/Creatinine [Mass ratio] 10.8 mg/mg 10-20 [facility] Work Phone: [phone] Laboratory - Hematology and Cell countson 12-27-2021 Erythrocyte distribution width (RBC) [Entitic vol] 46.8 fL 35.1-43.9 [facility] Work Phone: [phone] Erythrocyte distribution width (RBC) [Ratio] 13.2 % 11.6-14.6 [facility] Work Phone: [phone] Immature granulocytes/100 WBC (Bld) 0.300 % 0.0-0.9 [facility] Work Phone: Comment on above: IG% - Immature Granu locytes (promyelocytes, myelocytes and metamyelocytes) > 1% indicates that a LEFT SHIFT is Present. MCH (RBC) [Entitic mass] 30.5 pg 27.0-32.0 [facility] Work Phone: Nucleated RBC/100 WBC (Bld) [Ratio] 0 % 0-5 [facility] Work Phone: MCHC Auto (RBC) [Mass/Vol]on 12-27-2021 MCHC (RBC) [Mass/Vol] 32.0 g/dL 32-36 [facility] Work Phone: No Panel Informationon 12-27 Estimated GFR (MDRD) Amer 86 mL/min >60 [facility] Work Phone: Comment on above: GFR Calc Estimated GFR (MDRD) Non-Af Amer 71 mL/min >60 [facility] Work Phone: Comment on above: Non- GFR Calc Total Iron Binding Capacity 413 ug/dL 250-450 [facility] Work Phone: Platelets bldon 12-27-2021 Platelets (Bld) [#/Vol] 346 10*3/uL 150-450 [facility] Work Phone: Serum or plasma calcium sancho urement (mass/volume)on 12-27-2021 Calcium [Mass/Vol] 9.6 mg/dL 8.5-10.1 [facility] Work Phone: Serum or plasma creatinine m easurement (mass/volume)on 12-27-2021 Creatinine [Mass/Vol] 0.93 mg/dL 0.55-1.02 [facility] Work Phone: Comment on above: The validity of the calculated GFR & GFRAA in patients over 70 years has not been determined. Clinical correlation is essential. Serum or plasma ferritin vinayak surement (mass/volume)on 12-27-2021 Ferritin [Mass/Vol] 36 ng/mL 8-252 [facility] Work Phone: Serum or plasma iron saturat ion measurement (mass fraction)on 12-27-2021 Iron saturation [Mass fraction] 13.3 % 15.0-55.0 [facility] Work Phone: Serum or plasma urea nitroge n measurement (mass/volume)on 12-27-2021 Urea nitrogen [Mass/Vol] 10 mg/dL 7-18 [facility] Work Phone: Thin prep Papanicolaou smear with manual screeningon 12-27-2021 Thin prep Papanicolaou smear with manual screening 6 5-15 [facility] [facility] Work Phone: Absolute lymphocyte counton 10-21-2021 Lymphocytes Auto (Unsp spec) [#/Vol] 1.87 10*3/uL 0.83-4.51 [facility] Work Phone: Basophil percentageon 2021 Basophils/100 WBC (Bld) 0.8 % 0-1 [facility] Work Phone: Eosinophils/100 WBC (Bld) 2.0 % 0-5 [facility] Work Phone: Neutrophils (Bld) [#/Vol] 3.8 10*3/uL 2.0-7.7 [facility] Work Phone: Neutrophils/100 WBC (Bld) 59.2 % 47-70 [facility] Work Phone: WBC (Bld) [#/Vol] 6.5 10*3/uL 4.4-11.0 [facility] Work Phone: Bilirubin [Mass/Vol] 0.20 mg/dL 0.20-1.00 [facility] Work Phone: Comment on above: For patients on eltr ombopag therapy, use of Dimension [place] TBIL is not recommended. Chloride [Moles/Vol] 105 mmol/L 98-107 [facility] Work Phone: Glucose [Mass/Vol] 83 mg/dL 74-106 [facility] Work Phone: Potassium [Moles/Vol] 4.1 mmol/L 3.5-5.1 [facility] Work Phone: Protein [Mass/Vol] 7.3 g/dL 6.4-8.2 [facility] Work Phone: Sodium [Moles/Vol] 137 mmol/L 136-145 [facility] Work Phone: Blood erythrocytes count (nu mber/volume)on 10-21-2021 RBC (Bld) [#/Vol] 3.78 10*6/uL 4.2-5.4 [facility] Work Phone: [phone] Blood hemoglobin measurement (mass/volume)on 10-21-2021 Hemoglobin (Bld) [Mass/Vol] 11.6 g/dL 12.0-15.0 [facility] Work Phone: Blood lymphocytes/100 leukoc yteson 10-21-2021 Lymphocytes/100 WBC (Bld) 28.9 % 19-41 [facility] Work Phone: Blood monocytes/100 leukocyt eson 10-21-2021 Monocytes/100 WBC (Bld) 8.8 % 0-10 [facility] Work Phone: Blood platelet mean volumeon 10-21-2021 Platelet mean volume (Bld) [Entitic vol] 9.4 fL 6.2-12.0 [facility] Work Phone: [phone] Determination of erythrocyte mean corpuscular volume (MCV)on 10-21-2021 MCV (RBC) [Entitic vol] 96.6 fL 81-99 [facility] Work Phone: Hematocrit Auto (Bld) [Volum e fraction]on 10-21-2021 Hematocrit (Bld) [Volume fraction] 36.5 % 37-47 [facility] Work Phone: [phone] Laboratory - Chemistry and C hemistry - challengeon 10-21-2021 ALP [Catalytic activity/Vol] 62 U/L 45-117 [facility] Work Phone: ALT [Catalytic activity/Vol] 22 U/L 13-56 [facility] Work Phone: CO2 [Moles/Vol] 29.0 mmol/L 21.0-32.0 [facility] Work Phone: Free T4 [Mass/Vol] 1.08 ng/dL 0.76-1.46 [facility] Work Phone: Globulin (S) [Mass/Vol] 3.9 g/dL 2.2-4.2 [facility] Work Phone: Urea nitrogen/Creatinine [Mass ratio] 12.0 mg/mg 10-20 [facility] Work Phone: Laboratory - Hematology and Cell countson 10-21-2021 Erythrocyte distribution width (RBC) [Entitic vol] 46.0 fL 35.1-43.9 [facility] Work Phone: Erythrocyte distribution width (RBC) [Ratio] 13.1 % 11.6-14.6 [facility] Work Phone: Immature granulocytes/100 WBC (Bld) 0.300 % 0.0-0.9 [facility] Work Phone: Comment on above: IG% - Immature Granu locytes (promyelocytes, myelocytes and metamyelocytes) > 1% indicates that a LEFT SHIFT is Present. MCH (RBC) [Entitic mass] 30.7 pg 27.0-32.0 [facility] Work Phone: Nucleated RBC/100 WBC (Bld) [Ratio] 0 % 0-5 [facility] Work Phone: MCHC Auto (RBC) [Mass/Vol]on 10-21-2021 MCHC (RBC) [Mass/Vol] 31.8 g/dL 32-36 [facility] Work Phone: No Panel Informationon 10-21 Estimated GFR (MDRD) Amer 98 mL/min >60 [facility] Work Phone: Comment on above: GFR Calc Estimated GFR (MDRD) Non-Af Amer 81 mL/min >60 [facility] Work Phone: Comment on above: Non- GFR Calc Thyroid Stimulating Hormone (TSH) 0.15 uIU/mL 0.358-3.74 [facility] Work Phone: Platelets bldon 10-21-2021 Platelets (Bld) [#/Vol] 306 10*3/uL 150-450 [facility] Work Phone: Serum or plasma albumin sancho urement (mass/volume)on 10-21-2021 Albumin [Mass/Vol] 3.4 g/dL 3.2-5.0 [facility] Work Phone: Serum or plasma albumin/glob ulin mass ratioon 10-21-2021 Albumin/Globulin [Mass ratio] 0.9 {ratio} 0.9-2.4 [facility] Work Phone: Serum or plasma calcium sancho urement (mass/volume)on 10-21-2021 Calcium [Mass/Vol] 9.2 mg/dL 8.5-10.1 [facility] Work Phone: Serum or plasma creatinine m easurement (mass/volume)on 10-21-2021 Creatinine [Mass/Vol] 0.83 mg/dL 0.55-1.02 [facility] Work Phone: Comment on above: The validity of the calculated GFR & GFRAA in patients over 70 years has not been determined. Clinical correlation is essential. Serum or plasma urea nitroge n measurement (mass/volume)on 10-21-2021 Urea nitrogen [Mass/Vol] 10 mg/dL 7-18 [facility] Work Phone: Thin prep Papanicolaou smear with manual screeningon 10-21-2021 Thin prep Papanicolaou smear with manual screening 13 U/L 15-37 [facility] Work Phone: Thin prep Papanicolaou smear with manual screening 3 5-15 [facility] Work Phone: Bilirubin Test strip Ql (U)o n 09-14-2021 Bilirubin Ql (U) Negative Negative [facility] Work Phone: Ketones Test strip Ql (U)on 09-14-2021 Ketones Ql (U) Negative Negative [facility] Work Phone: Nitrite Test strip Ql (U)on 09-14-2021 Nitrite Ql (U) Negative Negative [facility] Work Phone: [phone] Protein Test strip Ql (U)on 09-14-2021 Protein Ql (U) Negative Negative [facility] Work Phone: [phone] Urine blood detectionon 03-0 RBC Ql (U) Negative Negative [facility] Work Phone: [phone] Urine clarityon 09-14-2021 Clarity (U) Clear Clear [facility] Work Phone: [phone] Urine color determinationon 09-14-2021 Color (U) Yellow Yellow [facility] Work Phone: [phone] Urine creatinine measurement (mass/volume)on 09-14-2021 Creatinine (U) [Mass/Vol] 20.20 mg/dL NO RANGE EST. [facility] Work Phone: [phone] Urine glucose detectionon Glucose Ql (U) Normal mg/dl Normal [facility] Work Phone: [phone] Urine leukocyte esterase det ection by dipstickon 09-14-2021 Leukocyte esterase Test strip Ql (U) Negative Negative [facility] Work Phone: [phone] Urine pHon 09-14-2021 pH (U) 7.0 [pH] 5.0 - 8.0 [facility] Work Phone: [phone] Urine protein measurement (m ass/volume)on 09-14-2021 Protein (U) [Mass/Vol] mg/dL 0.0-11.8 [facility] Work Phone: [phone] Urine specific gravity measu rementon 09-14-2021 Specific gravity (U) [Rel density] 1.005 1.002-1.030 [facility] Work Phone: [phone] Urobilinogen Auto test strip Ql (U)on 09-14-2021 Urobilinogen Ql (U) Normal mg/dl Normal [facility] Work Phone: [phone] Absolute lymphocyte counton 09-13-2021 Lymphocytes Auto (Unsp spec) [#/Vol] 1.48 10*3/uL 0.83-4.51 [facility] Work Phone: Basophil percentageon 2021 Basophil percentage 4.7 AI 0.0-0.9 [facility] Work Phone: Basophil percentage < 0.2 AI 0.0-0.9 [facility] Work Phone: Basophils/100 WBC (Bld) 0.7 % 0-1 [facility] Work Phone: Bilirubin [Mass/Vol] 0.30 mg/dL 0.20-1.00 [facility] Work Phone: Comment on above: For patients on eltr ombopag therapy, use of Dimension [place] TBIL is not recommended. Chloride [Moles/Vol] 105 mmol/L 98-107 [facility] Work Phone: Eosinophils/100 WBC (Bld) 1.8 % 0-5 [facility] Work Phone: Glucose [Mass/Vol] 96 mg/dL 74-106 [facility] Work Phone: Neutrophils (Bld) [#/Vol] 3.9 10*3/uL 2.0-7.7 [facility] Work Phone: Neutrophils/100 WBC (Bld) 64.9 % 47-70 [facility] Work Phone: Potassium [Moles/Vol] 3.9 mmol/L 3.5-5.1 [facility] Work Phone: Protein [Mass/Vol] 7.4 g/dL 6.4-8.2 [facility] Work Phone: Sodium [Moles/Vol] 139 mmol/L 136-145 [facility] Work Phone: WBC (Bld) [#/Vol] 6.0 10*3/uL 4.4-11.0 [facility] Work Phone: Blood erythrocytes count (nu mber/volume)on 09-13-2021 RBC (Bld) [#/Vol] 3.76 10*6/uL 4.2-5.4 [facility] Work Phone: Blood hemoglobin measurement (mass/volume)on 09-13-2021 Hemoglobin (Bld) [Mass/Vol] 11.7 g/dL 12.0-15.0 [facility] Work Phone: Blood lymphocytes/100 leukoc yteson 09-13-2021 Lymphocytes/100 WBC (Bld) 24.7 % 19-41 [facility] Work Phone: [phone] Blood monocytes/100 leukocyt eson 09-13-2021 Monocytes/100 WBC (Bld) 7.7 % 0-10 [facility] Work Phone: Blood platelet mean volumeon 09-13-2021 Platelet mean volume (Bld) [Entitic vol] 9.3 fL 6.2-12.0 [facility] Work Phone: CNOVon 09-13-2021 CNOV Office Visit (RHBATH ) ALMA ADEN ([id number]) 1980 F Date Time Provider Department 09/13/21 [...] the mornings and evenings. 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 Swelling in hands towards the end of [...] why weight (more content not included)... Normal [facility] Anahy 09-13-2021 FLY Telephone (RULTTB) ALMA ADEN ([id number]) 1980 F Date Time Provider Department 09/13/21 [...] Status:Closed by MOSES LEE on 09/15/21 Normal [facility] Determination of erythrocyte mean corpuscular volume (MCV)on 09-13-2021 MCV (RBC) [Entitic vol] 95.2 fL 81-99 [facility] Work Phone: Hematocrit Auto (Bld) [Volum e fraction]on 09-13-2021 Hematocrit (Bld) [Volume fraction] 35.8 % 37-47 [facility] Work Phone: Iron measurement (mass/mass) on 09-13-2021 Iron (Unsp spec) [Mass/Mass] 65 ug/dL 50-170 [facility] Work Phone: Laboratory - Chemistry and C hemistry - challengeon 09-13-2021 ALP [Catalytic activity/Vol] 64 U/L 45-117 [facility] Work Phone: ALT [Catalytic activity/Vol] 25 U/L 13-56 [facility] Work Phone: CK [Catalytic activity/Vol] 62 U/L 26-192 [facility] Work Phone: CO2 [Moles/Vol] 29.0 mmol/L 21.0-32.0 [facility] Work Phone: Cobalamin (Vitamin B12) [Mass/Vol] 405 pg/mL 211-911 [facility] Work Phone: Globulin (S) [Mass/Vol] 3.8 g/dL 2.2-4.2 [facility] Work Phone: Urea nitrogen/Creatinine [Mass ratio] 14.5 mg/mg 10-20 [facility] Work Phone: Laboratory - Hematology and Cell countson 09-13-2021 Erythrocyte distribution width (RBC) [Entitic vol] 47.2 fL 35.1-43.9 [facility] Work Phone: Erythrocyte distribution width (RBC) [Ratio] 13.5 % 11.6-14.6 [facility] Work Phone: Immature granulocytes/100 WBC (Bld) 0.200 % 0.0-0.9 [facility] Work Phone: Comment on above: IG% - Immature Granu locytes (promyelocytes, myelocytes and metamyelocytes) > 1% indicates that a LEFT SHIFT is Present. MCH (RBC) [Entitic mass] 31.1 pg 27.0-32.0 [facility] Work Phone: [phone] Nucleated RBC/100 WBC (Bld) [Ratio] 0 % 0-5 [facility] Work Phone: MCHC Auto (RBC) [Mass/Vol]on 09-13-2021 MCHC (RBC) [Mass/Vol] 32.7 g/dL 32-36 [facility] Work Phone: No Panel Informationon 09-13 Anti-Gliadin IgA Antibody 4 units 0-19 [facility] Work Phone: Comment on above: Negative 0 - 19 Weak Positive 20 - 30 Moderate to Strong Positive >30 Anti-Gliadin IgG Antibody 2 units 0-19 [facility] Work Phone: Comment on above: Negative 0 - 19 Weak Positive 20 - 30 Moderate to Strong Positive >30 Estimated GFR (MDRD) Amer 121 mL/min >60 [facility] Work Phone: Comment on above: GFR Calc Estimated GFR (MDRD) Non-Af Amer 100 mL/min >60 [facility] Work Phone: Comment on above: Non- GFR Calc [employer]MENT [employer]ING [employer] Antibody 0.4 AI 0.0-0.9 [facility] Work Phone: Tissue Transglutaminase IgG Ab <2 U/mL 0-5 [facility] Work Phone: Comment on above: Negative 0 - 5 Weak Positive 6 - 9 Positive >9Performed at: [facility] [address] [id number] Director: Levi Covarrubias PhD, Phone: [phone] at: [facility] [employer] [address] [id number] Director: Joyce Tatum MD, Phone: [phone] Total Iron Binding Capacity 386 ug/dL 250-450 [facility] Work Phone: Vitamin D 25-Hydroxy 25.3 ng/mL [facility] Work Phone: Comment on above: Vitamin D 25(OH) Sta tus Range Deficiency <20 ng/mL (50nmol/L) Insufficiency 20 - 30 ng/mL (50 - 75 nmol/L) Sufficiency 30 - 100 ng/mL (75 - 250 nmol/L) Toxicity >100 ng/mL (>250 nmol/L) Platelets bldon 09-13-2021 Platelets (Bld) [#/Vol] 317 10*3/uL 150-450 [facility] Work Phone: Serum DNA double strand anti body assay (units/volume)on 09-13-2021 DNA double strand Ab Qn (S) 1 [IU]/mL 0-9 [facility] Work Phone: Comment on above: Negative <5 Equivoca l 5 - 9 Positive >9 Serum Humphries extractable nucl ear antibody detectionon 09-13-2021 Humphries extractable nuclear Ab Ql (S) <0.2 AI 0.0-0.9 [facility] Work Phone: Serum cyclic citrullinated p eptide IgG antibody assay (units/volume)on 09-13-2021 Cyclic citrullinated peptide IgG Qn 7 units 0-19 [facility] Work Phone: Comment on above: Negative <20 Weak po sitive 20 - 39 Moderate positive 40 - 59 Strong positive >59 Serum nuclear antibody titer by immunofluorescenceon 09-13-2021 Nuclear Ab IF (S) [Titer] Negative . [facility] Work Phone: Comment on above: Negative <1:80 Borde rline 1:80 Positive >1:80ICAP nomenclature: [id number] more information about Hep-2 cell patterns useANApatterns.org, the official website for theInternational Consensus on Antinuclear Antibody (SHAWANDA)Patterns (ICAP).Performed at: [address] [id number] Director: Levi Covarrubias PhD, Phone: [phone] Serum or plasma albumin sancho urement (mass/volume)on 09-13-2021 Albumin [Mass/Vol] 3.6 g/dL 3.2-5.0 [facility] Work Phone: Serum or plasma albumin/glob ulin mass ratioon 09-13-2021 Albumin/Globulin [Mass ratio] 0.9 {ratio} 0.9-2.4 [facility] Work Phone: Serum or plasma calcium sancho urement (mass/volume)on 09-13-2021 Calcium [Mass/Vol] 9.5 mg/dL 8.5-10.1 [facility] Work Phone: Serum or plasma creatinine m easurement (mass/volume)on 09-13-2021 Creatinine [Mass/Vol] 0.69 mg/dL 0.55-1.02 [facility] Work Phone: Comment on above: The validity of the calculated GFR & GFRAA in patients over 70 years has not been determined. Clinical correlation is essential. Serum or plasma ferritin vinayak surement (mass/volume)on 09-13-2021 Ferritin [Mass/Vol] 38 ng/mL 8-252 [facility] Work Phone: Serum or plasma iron saturat ion measurement (mass fraction)on 09-13-2021 Iron saturation [Mass fraction] 16.8 % 15.0-55.0 [facility] Work Phone: Serum or plasma urea nitroge n measurement (mass/volume)on 09-13-2021 Urea nitrogen [Mass/Vol] 10 mg/dL 7-18 [facility] Work Phone: Serum rheumatoid factor dete ctionon 09-13-2021 Rheumatoid factor Ql (S) < 10.0 IU/mL <15 [facility] Work Phone: Serum tissue transglutaminas e IgA antibody assay (units/volume)on 09-13-2021 tTG IgA Qn (S) <2 U/mL 0-3 [facility] Work Phone: Comment on above: Negative 0 - 3 Weak Positive 4 - 10 Positive >10 Tissue Transglutaminase (tTG) has been identified as the endomysial antigen. Studies have demonstr- ated that endomysial IgA antibodies have over 99% specificity for gluten sensitive enteropathy. Thin prep Papanicolaou smear with manual screeningon 09-13-2021 Thin prep Papanicolaou smear with manual screening 16 U/L 15-37 [facility] Work Phone: Thin prep Papanicolaou smear with manual screening 5 5-15 [facility] Work Phone: Laboratory - Hematology and Cell countson 08-19-2021 HbA1c (Bld) [Mass fraction] 5.7 % [facility] Work Phone: [phone] Absolute lymphocyte counton 07-26-2021 Lymphocytes Auto (Unsp spec) [#/Vol] 2.10 10*3/uL 0.83-4.51 [facility] Work Phone: [phone] Basophil percentageon 2021 Basophils/100 WBC (Bld) 0.5 % 0-1 [facility] Work Phone: [phone] Bilirubin [Mass/Vol] 0.40 mg/dL 0.20-1.00 [facility] Work Phone: [phone] Comment on above: For patients on eltr ombopag therapy, use of Dimension [place] TBIL is not recommended. Chloride [Moles/Vol] 104 mmol/L 98-107 [facility] Work Phone: Eosinophils/100 WBC (Bld) 2.9 % 0-5 [facility] Work Phone: [phone] Glucose [Mass/Vol] 100 mg/dL 74-106 [facility] Work Phone: [phone] Comment on above: Fasting Glucose resu lt from 100 to 125 mg/dL suggests IMPAIRED HOMEOSTASIS per A.D.A. criteria.Please note revised GLUCOSE reference range effective 2017. Neutrophils (Bld) [#/Vol] 4.6 10*3/uL 2.0-7.7 [facility] Work Phone: [phone] Neutrophils/100 WBC (Bld) 61.0 % 47-70 [facility] Work Phone: [phone] Potassium [Moles/Vol] 3.7 mmol/L 3.5-5.1 [facility] Work Phone: [phone] Protein [Mass/Vol] 7.8 g/dL 6.4-8.2 [facility] Work Phone: [phone] Sodium [Moles/Vol] 138 mmol/L 136-145 [facility] Work Phone: [phone] WBC (Bld) [#/Vol] 7.5 10*3/uL 4.4-11.0 [facility] Work Phone: Blood erythrocytes count (nu mber/volume)on 07-26-2021 RBC (Bld) [#/Vol] 3.88 10*6/uL 4.2-5.4 [facility] Work Phone: [phone] Blood hemoglobin measurement (mass/volume)on 07-26-2021 Hemoglobin (Bld) [Mass/Vol] 11.7 g/dL 12.0-15.0 [facility] Work Phone: Blood lymphocytes/100 leukoc yteson 07-26-2021 Lymphocytes/100 WBC (Bld) 28.1 % 19-41 [facility] Work Phone: Blood monocytes/100 leukocyt eson 07-26-2021 Monocytes/100 WBC (Bld) 7.0 % 0-10 [facility] Work Phone: Blood platelet mean volumeon 07-26-2021 Platelet mean volume (Bld) [Entitic vol] 9.3 fL 6.2-12.0 [facility] Work Phone: [phone] Determination of erythrocyte mean corpuscular volume (MCV)on 07-26-2021 MCV (RBC) [Entitic vol] 94.8 fL 81-99 [facility] Work Phone: [phone] Hematocrit Auto (Bld) [Volum e fraction]on 07-26-2021 Hematocrit (Bld) [Volume fraction] 36.8 % 37-47 [facility] Work Phone: [phone] Laboratory - Chemistry and C hemistry - challengeon 07-26-2021 ALP [Catalytic activity/Vol] 71 U/L 45-117 [facility] Work Phone: [phone] ALT [Catalytic activity/Vol] 21 U/L 13-56 [facility] Work Phone: [phone] CO2 [Moles/Vol] 26.0 mmol/L 21.0-32.0 [facility] Work Phone: Globulin (S) [Mass/Vol] 4.2 g/dL 2.2-4.2 [facility] Work Phone: Urea nitrogen/Creatinine [Mass ratio] 12.2 mg/mg 10-20 [facility] Work Phone: Laboratory - Hematology and Cell countson 07-26-2021 Erythrocyte distribution width (RBC) [Entitic vol] 47.2 fL 35.1-43.9 [facility] Work Phone: Erythrocyte distribution width (RBC) [Ratio] 13.7 % 11.6-14.6 [facility] Work Phone: Immature granulocytes/100 WBC (Bld) 0.500 % 0.0-0.9 [facility] Work Phone: Comment on above: IG% - Immature Granu locytes (promyelocytes, myelocytes and metamyelocytes) > 1% indicates that a LEFT SHIFT is Present. MCH (RBC) [Entitic mass] 30.2 pg 27.0-32.0 [facility] Work Phone: Nucleated RBC/100 WBC (Bld) [Ratio] 0 % 0-5 [facility] Work Phone: MCHC Auto (RBC) [Mass/Vol]on 07-26-2021 MCHC (RBC) [Mass/Vol] 31.8 g/dL 32-36 [facility] Work Phone: No Panel Informationon 07-26 Estimated GFR (MDRD) Amer 113 mL/min >60 [facility] Work Phone: Comment on above: GFR Calc Estimated GFR (MDRD) Non-Af Amer 93 mL/min >60 [facility] Work Phone: Comment on above: Non- GFR Calc Platelets bldon 07-26-2021 Platelets (Bld) [#/Vol] 310 10*3/uL 150-450 [facility] Work Phone: Serum or plasma albumin sancho urement (mass/volume)on 07-26-2021 Albumin [Mass/Vol] 3.6 g/dL 3.2-5.0 [facility] Work Phone: Serum or plasma albumin/glob ulin mass ratioon 07-26-2021 Albumin/Globulin [Mass ratio] 0.9 {ratio} 0.9-2.4 [facility] Work Phone: Serum or plasma calcium sancho urement (mass/volume)on 07-26-2021 Calcium [Mass/Vol] 9.8 mg/dL 8.5-10.1 [facility] Work Phone: Serum or plasma creatinine m easurement (mass/volume)on 07-26-2021 Creatinine [Mass/Vol] 0.74 mg/dL 0.55-1.02 [facility] Work Phone: Comment on above: The validity of the calculated GFR & GFRAA in patients over 70 years has not been determined. Clinical correlation is essential. Serum or plasma urea nitroge n measurement (mass/volume)on 07-26-2021 Urea nitrogen [Mass/Vol] 9 mg/dL 7-18 [facility] Work Phone: Thin prep Papanicolaou smear with manual screeningon 07-26-2021 Thin prep Papanicolaou smear with manual screening 14 U/L 15-37 [facility] Work Phone: Thin prep Papanicolaou smear with manual screening 8 5-15 [facility] Work Phone: Hepatitis C RNA by PCRon Hepatitis C RNA by PCR SEE BELOW Normal [facility] Comment on above: Result Comment: Hepa titis C RNA SEE BELOW IU/mLHCV RNA not detected by PCR.Reference Range: Negative for HCV RNAThe Linear Range of this assay is 15 IU/mL to 100,000,000 IU/mL.Performing Laboratory:[facility] [place] [address] Performed By: #### S URG ####[place] [address] Syphilis IgG with Confon Syphilis IgG with Conf SEE BELOW Normal [facility] Comment on above: Result Comment: Syph ilis [...] Not IndicatedSyphilis Interpretati SEE BELOWTest Not IndicatedPerforming Laboratory:[facility] [place] [address] Performed By: #### S URG ####[address] [address] HIV Screenon 07-05-2017 HIV Screen Negative Normal Nonreactive [facility] Comment on above: Performed By: #### S URG ####[address] [address] Hep. B Surface Agon 07-05-20 Hep.B Surface Ag Negative Normal Negative [facility] Comment on above: Performed By: #### S URG ####[address] [address] Hepatitis C Antibodyon 07-05 Hepatitis C Ab Negative Normal Negative [facility] Comment on above: Performed By: #### S URG ####[address] [address] Ferritinon 07-04-2017 Ferritin 8.30 ng/mL Normal 8.00-252.00 [facility] Comment on above: Performed By: #### S URG ####[address] [address] Iron Binding Cap.on 07-04-20 17 Iron Binding Cap. 356 ug/dL Normal 250-450 [facility] Comment on above: Performed By: #### S URG ####[address] [address] Iron Serumon 07-04-2017 Iron Serum 44 ug/dL Low 50-170 [facility] Comment on above: Performed By: #### S URG ####[place] [address] Basic Panelon 04-27-2017 Creatinine 0.98 mg/dL High 0.51-0.95 [facility] Comment on above: Performed By: #### S URG ####[place] [address] Anion gap 11 mmol/L Normal 8-16 [facility] Comment on above: Performed By: #### S URG ####[address] [address] CO2 26 mmol/L Normal 21-32 [facility] Comment on above: Performed By: #### S URG ####[address] [address] Glucose mass conc 99 mg/dL Normal 70-99 [facility] Comment on above: Performed By: #### S URG ####[place] [address] Urea nitrogen 12 mg/dL Normal 7-18 [facility] Comment on above: Performed By: #### S URG ####[place] [address] Calcium 9.1 mg/dL Normal 8.5-10.1 [facility] Comment on above: Performed By: #### S URG ####[address] [address] Chloride 103 mmol/L Normal 98-107 [facility] Comment on above: Performed By: #### S URG ####[address] [address] Potassium molar conc 4.0 mmol/L Normal 3.5-5.1 [facility] Comment on above: Performed By: #### S URG ####[place] [address] Sodium 136 mmol/L Normal 136-145 [facility] Comment on above: Performed By: #### S URG ####[address] [address] Ferritinon 04-27-2017 Ferritin 9.90 ng/mL Normal 8.00-252.00 [facility] Comment on above: Performed By: #### S URG ####[address] [address] Hemogram/Diffon 04-27-2017 Basophils Auto #/vol (Bld) 0.06 thou/cmm Normal 0.01-0.08 [facility] Comment on above: Performed By: #### C BCD1 ####[address] [address] Basophils/100 WBC Auto (Bld) 1.0 % Normal [facility] Comment on above: Performed By: #### C BCD1 ####[address] [address] Eosinophils 0.22 thou/cmm Normal 0.00-0.31 [facility] Comment on above: Performed By: #### C BCD1 ####[address] [address] Eosinophils/100 leukocytes 3.7 % Normal [facility] Comment on above: Performed By: #### C BCD1 ####[address] [address] Erythrocyte distribution width Auto Ratio (RBC) 14.3 % Normal 11.7-14.4 [facility] Comment on above: Performed By: #### C BCD1 ####[address] [address] Erythrocytes (RBC) 3.88 mil/cmm Low 3.93-5.22 [facility] Comment on above: Performed By: #### C BCD1 ####[address] [address] Hematocrit (HCT) 35.6 % Normal 34.1-44.9 [facility] Comment on above: Performed By: #### C BCD1 ####[address] [address] Hemoglobin mass conc (Bld) 11.7 g/dL Normal 11.2-15.7 [facility] Comment on above: Performed By: #### C BCD1 ####[place] [address] Immature Grans 0.20 % Normal [facility] Comment on above: Performed By: #### C BCD1 ####[place] [address] Immature Grans # 0.01 thou/cmm Normal 0.00-0.05 [facility] Comment on above: Performed By: #### C BCD1 ####[place] [address] Lymphocytes 1.94 thou/cmm Normal 1.18-3.74 [facility] Comment on above: Performed By: #### C BCD1 ####[place] [address] Lymphocytes/100 leukocytes 32.3 % Normal [facility] Comment on above: Performed By: #### C BCD1 ####[place] [address] MCH 30.2 pg Normal 25.6-32.2 [facility] Comment on above: Performed By: #### C BCD1 ####[place] [address] MCHC mass conc (RBC) 32.9 % Normal 31.6-34.8 [facility] Comment on above: Performed By: #### C BCD1 ####[place] [address] MCV 91.8 fL Normal 79.4-94.8 [facility] Comment on above: Performed By: #### C BCD1 ####[place] [address] Monocytes 0.38 thou/cmm Normal 0.27-0.70 [facility] Comment on above: Performed By: #### C BCD1 ####[place] [address] Monocytes/100 leukocytes 6.3 % Normal [facility] Comment on above: Performed By: #### C BCD1 ####[place] [address] Platelet mean volume (PMV) 10.1 fL Normal 9.4-12.3 [facility] Comment on above: Performed By: #### C BCD1 ####[facility] [place], [place] [address] Platelets 313 thou/cmm Normal 182-369 [facility] Comment on above: Performed By: #### C BCD1 ####[facility] [place], [place] [address] RDW SD 48.3 fl High 36.4-46.3 [facility] Comment on above: Performed By: #### C BCD1 ####[address] [address] Seg Neutrophil 56.5 % Normal [facility] Comment on above: Performed By: #### C BCD1 ####[place] [address] Seg. Neut.# 3.40 thou/cmm Normal 1.56-6.13 [facility] Comment on above: Performed By: #### C BCD1 ####[address] [address] WBC (Leukocytes) 6.01 thou/cmm Normal 3.98-10.04 [facility] Comment on above: Performed By: #### C BCD1 ####[address] [address] Iron Binding Cap.on 04-27-20 17 Iron Binding Cap. 388 ug/dL Normal 250-450 [facility] Comment on above: Performed By: #### I BC ####[address] [address] Iron Serumon 04-27-2017 Iron Serum 33 ug/dL Low 50-170 [facility] Comment on above: Performed By: #### I JIMMY ####[place] [id number] HPV High Riskon 04-19-2017 HPV High Risk SEE BELOW Normal [facility] Comment on above: Result Comment: HPV MRNA E6/E7 Not Detected NOT DETECTEDThis test was performed using the APTIMA(R) HPV Assay([employer]This assay detects E6/E7 viral messenger RNA (mRNA)from 14 high-risk HPV types (16,18,31,33,35,39,45,51,52,56,58,59,66,68).For additional information please refer to:http://education.Array Storm/faq/DLQ494e6(This link is being provided for informational/educational purposes only.)Test Performed by [employer] [facility],[address] [place] [id number] Brunson M.D., Ph.D., Director of [phone], [facility] [id number] Performed By: #### H PVRQ ####[place] [address] HPV High Riskon 04-17-2017 Cytology Normal [facility] Comment on above: Performed By: #### H PVRQ ####[place] [address] [place] Venipunctureon 03-18 [place] Venipuncture COMPLETED Normal [facility] Comment on above: Performed By: #### M VENP ####[place] [address] TSH, 3rd generationon 2016 TSH, 3rd generation 2.080 uIU/mL Normal 0.358-3.740 [facility] Comment on above: Performed By: #### T SH3 ####[place] [address] Pap,Cyto Gynon 04-13-2017 Pap,Cyto Employment Director Test performed at [place] [address]NAME: ALMA ADEN [id number] REQUESTING: SLAVA BEYER D.O.SPECIMEN: TP CERVICAL/ENDOCERVICAL HPV REGARDLESSRelevant History:LMP: 03/28/2017SPECIMEN ADEQUACYSATISFACTORY FOR EVALUATION. ENDOCERVICAL/TRANSFORMATION ZONECOMPONENTS PRESENT.INTERPRETATION/RESU LTNEGATIVE FOR INTRAEPITHELIAL LESION OR MALIGNANCY.ANCILLARY TESTINGHPV mRNA E6/E7 - Not Detected for HIGH RISK HPV. Please see additionalreport from [employer].Electronically signed: 04/19/2017Screened by: LEAH ALARCON([facility])Signed Out by: LEAH ALARCON([facility])The Pap test serves as a screening tool for early detection of cervical cancer. The Pap test does not represent a final diagnostic test forcervical cancer. Furthermore, the Pap test was not designed to screenfor other malignancies (endometrial, ovarian cancer, etc....). Falsenegatives and false positives have occurred. If clinically indicated,further patient evaluation is recommended.Printed on: April 19, 2017 Page 1 of 1 Normal [facility] Comment on above: Performed By: #### C OP ####[place] [address] OPERATIVE REPORTon OPERATIVE REPORT [facility] Operative ReportSURGEON: GT Alston RENEA MMRN: [id number] ACCTNUM: [id number] OF SURGERY: 02/06/2017DATE OF : 1980 SEX/AGE: F/36PATIENT TYPE: [facility] SVC: LOCATION:ADMIT DATE: 02/06/2017DATE OF SURGERY: [...] recovery in stable condition. [address] [place] [address] Operative ReportPATIENT NAME: ALMA ADEN [facility]#: [id number] ACCTNUM: [id number] her findings with significant gastritis with a small gastric ulcer, I would increase her proton pump inhibitortherapy twice daily and also add Carafate therapy. I would like to re-scope her in 6 to 8 weeks time to reassessfor active peptic ulcer disease as this is a contraindication to bariatric surgery. Signed: Nando ALSTON MD 02/15/2017 10:05 EDTCD:modlD: 02/06/2017 12:37:52T: 02/06/2017 23:44:54Job #: [id number] Page 2 of 1 Normal [facility] OPERATIVE REPORT PDF Normal [facility] Surgical Tissue Examon 02-06 Surgical Tissue Exam Test performed at [place] [address]NAME: ALMA ADEN [id number] REQUESTING: TONY ALVAREZ MDFINDEENA DIAGNOSIS:A) GASTRIC ANTRUM, [...] 15:58PRINTED: 02/07/2017 Page 1 of 1 Normal [facility] Comment on above: Performed By: #### S URG ####[place] [address] Urine HCG, Qual.on 7 HCG.beta subunit ( test) Ql (U) Negative Normal Negative [facility] Comment on above: Performed By: #### H CGUR ####[address] [address] Specific [place], Ur 1.016 Normal 1.005-1.030 [facility] Comment on above: Performed By: #### H CGUR ####[place] [id number] Clostridium difficile detect ion by polymerase chain reaction C. difficile DNA TERESA+probe Ql (Unsp spec) [facility] Work Phone: EP Panel Gastrointestinal pathogens panel TERESA+probe (Stl) [facility] Work Phone: No Panel Information Enteric Bacteriology [facility] Work Phone: Vital Signs Date Time Vital Sign Value Performing Clinician Clement smith 01-07-2025 11:26-0400 Body height 172.[address] Wyatt Marcelo MD Work Phone: [facility] 01-07-2025 11:26-0400 Body mass index (BMI) [Ratio] 58.8 kg/m2 Dr. Wyatt Marcelo MD Work Phone: [facility] 01-07-2025 11:26-0400 Body weight 175.[address] Wyatt Marcelo MD Work Phone: [facility] 01-07-2025 11:26-0400 Diastolic blood pressure 86 mm[Hg] Dr. Wyatt Marcelo MD Work Phone: [facility] 01-07-2025 11:26-0400 Heart rate 80 /min Dr. Wyatt Marcelo MD Work Phone: [facility] 01-07-2025 11:26-0400 SaO2% (BldA) [Mass fraction] 97 % Dr. Wyatt Marcelo MD Work Phone: [facility] 01-07-2025 11:26-0400 Systolic blood pressure 139 mm[Hg] Dr. Wyatt Marcelo MD Work Phone: [facility] 10-23-2024 16:47-0400 Body height 172.[address] Wyatt Marcelo MD Work Phone: [facility] 10-23-2024 16:47-0400 Body temperature 96.1 [degF] Dr. Wyatt Marcelo MD Work Phone: [facility] 10-23-2024 16:47-0400 Diastolic blood pressure 78 mm[Hg] Dr. Wyatt Marcelo MD Work Phone: [facility] 10-23-2024 16:47-0400 Heart rate 81 /min Dr. Wyatt Marcelo MD Work Phone: [facility] 10-23-2024 16:47-0400 Respiratory rate 16 /min Dr. Wyatt Marcelo MD Work Phone: [facility] 10-23-2024 16:47-0400 SaO2% (BldA) [Mass fraction] 95 % Dr. Wyatt Marcelo MD Work Phone: [facility] 10-23-2024 16:47-0400 Systolic blood pressure 136 mm[Hg] Dr. Wyatt Marcelo MD Work Phone: [facility] 08-31-2024 12:26-0500 Body temperature 98.3 [degF] Dr. Wyatt Marcelo MD Work Phone: [facility] 08-31-2024 12:26-0500 Diastolic blood pressure 70 mm[Hg] Dr. Wyatt Marcelo MD Work Phone: [facility] 08-31-2024 12:26-0500 Heart rate 88 /min Dr. Wyatt Marcelo MD Work Phone: [facility] 08-31-2024 12:26-0500 Respiratory rate 12 /min Dr. Wyatt Marcelo MD Work Phone: [facility] 08-31-2024 12:26-0500 SaO2% (BldA) [Mass fraction] 98 % Dr. Wyatt Marcelo MD Work Phone: [facility] 08-31-2024 12:26-0500 Systolic blood pressure 118 mm[Hg] Dr. Wyatt Marcelo MD Work Phone: [facility] 08-31-2024 11:33-0500 Body height 172.[address] Wyatt Marcelo MD Work Phone: [facility] 03-28-2024 15:39-0400 Body height 172.[address] Wyatt Marcelo Work Phone: [facility] 10-12-2023 15:39-0400 Body mass index (BMI) [Ratio] 57.3 kg/m2 Dr. Wyatt Marcelo Work Phone: [facility] 10-12-2023 15:39-0400 Body temperature 97.8 [degF] Dr. Wyatt Marcelo Work Phone: [facility] 10-12-2023 15:39-0400 Body weight [address] Wyatt Marcelo Work Phone: [facility] 10-12-2023 15:39-0400 Respiratory rate 17 /min Dr. Wyatt Marcelo Work Phone: [facility] 10-12-2023 15:39-0400 SaO2% (BldA) [Mass fraction] 97 % Dr. Wyatt Marcelo Work Phone: [facility] 10-03-2023 08:32-0400 Body height 172.[address] Wyatt Marcelo Work Phone: [facility] 10-03-2023 08:32-0400 Body mass index (BMI) [Ratio] 57.4 kg/m2 Dr. Wyatt Marcelo Work Phone: [facility] 10-03-2023 08:32-0400 Body temperature 97.3 [degF] Dr. Wyatt Marcelo Work Phone: [facility] 10-03-2023 08:32-0400 Body weight 171.[address] Wyatt Marcelo Work Phone: [facility] 10-03-2023 08:32-0400 Diastolic blood pressure 90 mm[Hg] Dr. Wyatt Marcelo Work Phone: [facility] 10-03-2023 08:32-0400 Heart rate 74 /min Dr. Wyatt Marcelo Work Phone: [facility] 10-03-2023 08:32-0400 Respiratory rate 16 /min Dr. Wyatt Marcelo Work Phone: [facility] 10-03-2023 08:32-0400 SaO2% (BldA) [Mass fraction] 99 % Dr. Wyatt Marcelo Work Phone: [facility] 10-03-2023 08:32-0400 Systolic blood pressure 128 mm[Hg] Dr. Wyatt Marcelo Work Phone: [facility] 06-11-2023 10:46-0500 Diastolic blood pressure 79 mm[Hg] Dr. Wyatt Marcelo Work Phone: [facility] 06-11-2023 10:46-0500 Heart rate 80 /min Dr. Wyatt Marcelo Work Phone: [facility] 06-11-2023 10:46-0500 Respiratory rate 18 /min Dr. Wyatt Marcelo Work Phone: [facility] 06-11-2023 10:46-0500 SaO2% (BldA) [Mass fraction] 99 % Dr. Wyatt Marcelo Work Phone: [facility] 06-11-2023 10:46-0500 Systolic blood pressure 139 mm[Hg] Dr. Wyatt Marcelo Work Phone: [facility] 06-11-2023 07:45-0500 Body height 172.[address] Wyatt Marcelo Work Phone: [facility] 06-11-2023 07:45-0500 Body mass index (BMI) [Ratio] 56.2 kg/m2 Dr. Wyatt Marcelo Work Phone: [facility] 06-11-2023 07:45-0500 Body temperature 96.8 [degF] Dr. Wyatt Marcelo Work Phone: [facility] 06-11-2023 07:45-0500 Body weight 167.[address] Wyatt Marcelo Work Phone: [facility] 05-10-2023 16:30-0400 Body temperature 98.4 [degF] Dr. Wyatt Marcelo Work Phone: [facility] 05-10-2023 16:30-0400 Diastolic blood pressure 82 mm[Hg] Dr. Wyatt Marcelo Work Phone: [facility] 05-10-2023 16:30-0400 Heart rate 76 /min Dr. Wyatt Marcelo Work Phone: [facility] 05-10-2023 16:30-0400 Respiratory rate 18 /min Dr. Wyatt Marcelo Work Phone: [facility] 05-10-2023 16:30-0400 SaO2% (BldA) [Mass fraction] 97 % Dr. Wyatt Marcelo Work Phone: [facility] 05-10-2023 16:30-0400 Systolic blood pressure 126 mm[Hg] Dr. Wyatt Marcelo Work Phone: [facility] 04-26-2023 10:20-0400 Body temperature 97.4 [degF] Dr. Wyatt Marcelo Work Phone: [facility] 04-26-2023 10:20-0400 Diastolic blood pressure 80 mm[Hg] Dr. Wyatt Marcelo Work Phone: [facility] 04-26-2023 10:20-0400 Heart rate 75 /min Dr. Wyatt Marcelo Work Phone: [facility] 04-26-2023 10:20-0400 Respiratory rate 18 /min Dr. Wyatt Marcelo Work Phone: [facility] 04-26-2023 10:20-0400 SaO2% (BldA) [Mass fraction] 97 % Dr. Wyatt Marcelo Work Phone: [facility] 04-26-2023 10:20-0400 Systolic blood pressure 116 mm[Hg] Dr. Wyatt Marcelo Work Phone: [facility] 03-10-2023 16:05-0400 Body height 172.[address] Wyatt Marcelo Work Phone: [facility] 03-10-2023 16:05-0400 Body temperature 97.7 [degF] Dr. Wyatt Marcelo Work Phone: [facility] 03-10-2023 16:05-0400 Diastolic blood pressure 100 mm[Hg] Dr. Wyatt Marcelo Work Phone: [facility] 03-10-2023 16:05-0400 Heart rate 72 /min Dr. Wyatt Marcelo Work Phone: [facility] 03-10-2023 16:05-0400 Respiratory rate 16 /min Dr. Wyatt Marcelo Work Phone: [facility] 03-10-2023 16:05-0400 SaO2% (BldA) [Mass fraction] 96 % Dr. Wyatt Marcelo Work Phone: [facility] 03-10-2023 16:05-0400 Systolic blood pressure 158 mm[Hg] Dr. Wyatt Marcelo Work Phone: [facility] 01-09-2023 07:39-0400 Diastolic blood pressure 99 mm[Hg] Dr. Wyatt Marcelo Work Phone: [facility] 01-09-2023 07:39-0400 Heart rate 72 /min Dr. Wyatt Marcelo Work Phone: [facility] 01-09-2023 07:39-0400 Systolic blood pressure 146 mm[Hg] Dr. Wyatt Marcelo Work Phone: [facility] 01-09-2023 05:44-0400 Body height 172.[address] Wyatt Marcelo Work Phone: [facility] 01-09-2023 05:44-0400 Body mass index (BMI) [Ratio] 55.2 kg/m2 Dr. Wyatt Marcelo Work Phone: [facility] 01-09-2023 05:44-0400 Body temperature 97.6 [degF] Dr. Wyatt Marcelo Work Phone: [facility] 01-09-2023 05:44-0400 Body weight 164.[address] Wyatt Marcelo Work Phone: [facility] 01-09-2023 05:44-0400 Respiratory rate 18 /min Dr. Wyatt Marcelo Work Phone: [facility] 01-09-2023 05:44-0400 SaO2% (BldA) [Mass fraction] 96 % Dr. Wyatt Marcelo Work Phone: [facility] 12-05-2022 08:19-0400 Body height 172.[address] Wyatt Marcelo Work Phone: [facility] 12-05-2022 08:19-0400 Body mass index (BMI) [Ratio] 54.4 kg/m2 Dr. Wyatt Marcelo Work Phone: [facility] 12-05-2022 08:19-0400 Body temperature 97.2 [degF] Dr. Wyatt Marcelo Work Phone: [facility] 12-05-2022 08:19-0400 Body weight 162.[address] Wyatt Marcelo Work Phone: [facility] 12-05-2022 08:19-0400 Diastolic blood pressure 80 mm[Hg] Dr. Wyatt Marcelo Work Phone: [facility] 12-05-2022 08:19-0400 Heart rate 87 /min Dr. Wyatt Marcelo Work Phone: [facility] 12-05-2022 08:19-0400 Respiratory rate 12 /min Dr. Wyatt Marcelo Work Phone: [facility] 12-05-2022 08:19-0400 SaO2% (BldA) [Mass fraction] 97 % Dr. Wyatt Marcelo Work Phone: [facility] 12-05-2022 08:19-0400 Systolic blood pressure 130 mm[Hg] Dr. Wyatt Marcelo Work Phone: [facility] 11-23-2022 13:44-0400 Body height 172.[address] Wyatt Marcelo Work Phone: [facility] 11-23-2022 13:44-0400 Body mass index (BMI) [Ratio] 54.4 kg/m2 Dr. Wyatt Marcelo Work Phone: [facility] 11-23-2022 13:44-0400 Body temperature 97.2 [degF] Dr. Wyatt Marcelo Work Phone: [facility] 11-23-2022 13:44-0400 Body weight 162.[address] Wyatt Marcelo Work Phone: [facility] 11-23-2022 13:44-0400 Diastolic blood pressure 83 mm[Hg] Dr. Wyatt Marcelo Work Phone: [facility] 11-23-2022 13:44-0400 Heart rate 77 /min Dr. Wyatt Marcelo Work Phone: [facility] 11-23-2022 13:44-0400 Respiratory rate 19 /min Dr. Wyatt Marcelo Work Phone: [facility] 11-23-2022 13:44-0400 SaO2% (BldA) [Mass fraction] 96 % Dr. Wyatt Marcelo Work Phone: [facility] 11-23-2022 13:44-0400 Systolic blood pressure 122 mm[Hg] Dr. Wyatt Marcelo Work Phone: [facility] 10-19-2022 13:59-0400 Body height 172.[address] Wyatt Marcelo Work Phone: [facility] 10-19-2022 13:59-0400 Body mass index (BMI) [Ratio] 54.1 kg/m2 Dr. Wyatt Marcelo Work Phone: [facility] 10-19-2022 13:59-0400 Body weight 161.[address] Wyatt Marcelo Work Phone: [facility] 10-19-2022 13:59-0400 Diastolic blood pressure 85 mm[Hg] Dr. Wyatt Marcelo Work Phone: [facility] 10-19-2022 13:59-0400 Systolic blood pressure 142 mm[Hg] Dr. Wyatt Marcelo Work Phone: [facility] 09-29-2022 08:59-0400 Body height 172.[address] Wyatt Marcelo Work Phone: [facility] 09-29-2022 08:59-0400 Body temperature 96.2 [degF] Dr. Wyatt Marcelo Work Phone: [facility] 09-29-2022 08:59-0400 Diastolic blood pressure 90 mm[Hg] Dr. Wyatt Marcelo Work Phone: [facility] 09-29-2022 08:59-0400 Heart rate 70 /min Dr. Wyatt Marcelo Work Phone: [facility] 09-29-2022 08:59-0400 Respiratory rate 16 /min Dr. Wyatt Marcelo Work Phone: [facility] 09-29-2022 08:59-0400 SaO2% (BldA) [Mass fraction] 98 % Dr. Wyatt Marcelo Work Phone: [facility] 09-29-2022 08:59-0400 Systolic blood pressure 128 mm[Hg] Dr. Wyatt Marcelo Work Phone: [facility] 09-01-2022 08:52-0500 Body temperature 96.6 [degF] Dr. Wyatt Marcelo Work Phone: [facility] 09-01-2022 08:52-0500 Diastolic blood pressure 100 mm[Hg] Dr. Wyatt Marcelo Work Phone: [facility] 09-01-2022 08:52-0500 Heart rate 78 /min Dr. Wyatt Marcelo Work Phone: [facility] 09-01-2022 08:52-0500 Respiratory rate 18 /min Dr. Wyatt Marcelo Work Phone: [facility] 09-01-2022 08:52-0500 SaO2% (BldA) [Mass fraction] 96 % Dr. Wyatt Marcelo Work Phone: [facility] 09-01-2022 08:52-0500 Systolic blood pressure 146 mm[Hg] Dr. Wyatt Marcelo Work Phone: [facility] 08-15-2022 11:25-0500 Body mass index (BMI) [Ratio] 57 kg/m2 Dr. Wyatt Marcelo Work Phone: [facility] 08-15-2022 11:25-0500 Body temperature 96.7 [degF] Dr. Wyatt Marcelo Work Phone: [facility] 08-15-2022 11:25-0500 Body weight 170.[address] Wyatt Marcelo Work Phone: [facility] 08-15-2022 11:25-0500 Diastolic blood pressure 84 mm[Hg] Dr. Wyatt Marcelo Work Phone: [facility] 08-15-2022 11:25-0500 Heart rate 78 /min Dr. Wyatt Marcelo Work Phone: [facility] 08-15-2022 11:25-0500 Respiratory rate 18 /min Dr. Wyatt Marcelo Work Phone: [facility] 08-15-2022 11:25-0500 SaO2% (BldA) [Mass fraction] 96 % Dr. Wyatt Marcelo Work Phone: [facility] 08-15-2022 11:25-0500 Systolic blood pressure 117 mm[Hg] Dr. Wyatt Marcelo Work Phone: [facility] 07-01-2022 14:57-0500 Diastolic blood pressure 82 mm[Hg] Dr. Wyatt Marcelo Work Phone: [facility] 07-01-2022 14:57-0500 Respiratory rate 12 /min Dr. Wyatt Marcelo Work Phone: [facility] 07-01-2022 14:57-0500 Systolic blood pressure 144 mm[Hg] Dr. Wyatt Marcelo Work Phone: [facility] 05-06-2022 11:09-0400 Body height 172.[address] Wyatt Marcleo Work Phone: [facility] 05-06-2022 11:09-0400 Body temperature 98 [degF] Dr. Waytt Marcelo Work Phone: [facility] 05-06-2022 11:09-0400 Diastolic blood pressure 88 mm[Hg] Dr. Wyatt Marcelo Work Phone: [facility] 05-06-2022 11:09-0400 Heart rate 66 /min Dr. Wyatt Marcelo Work Phone: [facility] 05-06-2022 11:09-0400 SaO2% (BldA) [Mass fraction] 98 % Dr. Wyatt Marcelo Work Phone: [facility] 05-06-2022 11:09-0400 Systolic blood pressure 124 mm[Hg] Dr. Wyatt Marcelo Work Phone: [facility] 03-07-2022 13:25-0400 Heart rate 84 /min Dr. Wyatt Marcelo Work Phone: [facility] Work Phone: 03-07-2022 13:25-0400 Respiratory rate 16 /min Dr. Wyatt Marcelo Work Phone: [facility] Work Phone: 03-07-2022 13:25-0400 SaO2% (BldA) [Mass fraction] 98 % Dr. Wyatt Marcelo Work Phone: [facility] Work Phone: 03-07-2022 12:10-0400 Body height 172.[address] Wyatt Marcelo Work Phone: [facility] Work Phone: 03-07-2022 12:10-0400 Body mass index (BMI) [Ratio] 55.3 kg/m2 Dr. Wyatt Marcelo Work Phone: [facility] Work Phone: 03-07-2022 12:10-0400 Body temperature 97.9 [degF] Dr. Wyatt Marcelo Work Phone: [facility] Work Phone: 03-07-2022 12:10-0400 Body weight [address] Wyatt Marcelo Work Phone: [facility] Work Phone: 03-07-2022 12:10-0400 Diastolic blood pressure 72 mm[Hg] Dr. Wyatt Marcelo Work Phone: [facility] Work Phone: 03-07-2022 12:10-0400 Systolic blood pressure 139 mm[Hg] Dr. Wyatt Marcelo Work Phone: [facility] Work Phone: 02-10-2022 07:19-0400 Body temperature 97.5 [degF] Dr. Wyatt Marcelo Work Phone: [facility] Work Phone: 02-10-2022 07:19-0400 Diastolic blood pressure 90 mm[Hg] Dr. Wyatt Marcelo Work Phone: [facility] Work Phone: 02-10-2022 07:19-0400 Heart rate 89 /min Dr. Wyatt Marcelo Work Phone: [facility] Work Phone: 02-10-2022 07:19-0400 Respiratory rate 14 /min Dr. Wyatt Marcelo Work Phone: [facility] Work Phone: 02-10-2022 07:19-0400 SaO2% (BldA) [Mass fraction] 98 % Dr. Wyatt Marcelo Work Phone: [facility] Work Phone: 02-10-2022 07:19-0400 Systolic blood pressure 146 mm[Hg] Dr. Wyatt Marcelo Work Phone: [facility] Work Phone: 11-22-2021 08:58-0400 Body height 172.[address] Wyatt Marcelo Work Phone: [facility] Work Phone: 11-22-2021 08:58-0400 Body mass index (BMI) [Ratio] 52.6 kg/m2 Dr. Wyatt Marcelo Work Phone: [facility] Work Phone: 11-22-2021 08:58-0400 Body temperature 97.1 [degF] Dr. Wyatt Marcelo Work Phone: [facility] Work Phone: 11-22-2021 08:58-0400 Body weight 156.[address] Wyatt Marcelo Work Phone: [facility] Work Phone: 11-22-2021 08:58-0400 Diastolic blood pressure 86 mm[Hg] Dr. Wyatt Marcelo Work Phone: [facility] Work Phone: 11-22-2021 08:58-0400 Heart rate 73 /min Dr. Wyatt Marcelo Work Phone: [facility] Work Phone: 11-22-2021 08:58-0400 Respiratory rate 14 /min Dr. Wyatt Marcelo Work Phone: [facility] Work Phone: 11-22-2021 08:58-0400 SaO2% (BldA) [Mass fraction] 98 % Dr. Wyatt Marcelo Work Phone: [facility] Work Phone: 11-22-2021 08:58-0400 Systolic blood pressure 134 mm[Hg] Dr. Wyatt Marcelo Work Phone: [facility] Work Phone: 10-08-2021 11:30-0400 Body mass index (BMI) [Ratio] 52.6 kg/m2 Dr. Wyatt Marcelo Work Phone: [facility] Work Phone: 10-08-2021 11:30-0400 Body temperature 97.4 [degF] Dr. Wyatt Marcelo Work Phone: [facility] Work Phone: 10-08-2021 11:30-0400 Body weight 156.[address] Wyatt Marcelo Work Phone: [facility] Work Phone: 10-08-2021 11:30-0400 Diastolic blood pressure 78 mm[Hg] Dr. Wyatt Marcelo Work Phone: [facility] Work Phone: 10-08-2021 11:30-0400 Heart rate 73 /min Dr. Wyatt Marcelo Work Phone: [facility] Work Phone: 10-08-2021 11:30-0400 Respiratory rate 14 /min Dr. Wyatt Marcelo Work Phone: [facility] Work Phone: 10-08-2021 11:30-0400 SaO2% (BldA) [Mass fraction] 97 % Dr. Wyatt Marcelo Work Phone: [facility] Work Phone: 10-08-2021 11:30-0400 Systolic blood pressure 126 mm[Hg] Dr. Wyatt Marcelo Work Phone: [facility] Work Phone: 10-08-2021 11:30-0400 Body height 172.[address] Wyatt Marcelo Work Phone: [facility] Work Phone: 10-08-2021 11:30-0400 Body mass index (BMI) [Ratio] 52.6 kg/m2 Dr. Wyatt Marcelo Work Phone: [facility] Work Phone: 10-08-2021 11:30-0400 Body temperature 97.4 [degF] Dr. Wyatt Marcelo Work Phone: [facility] Work Phone: 10-08-2021 11:30-0400 Body weight 156.[address] Wyatt Marcelo Work Phone: [facility] Work Phone: 10-08-2021 11:30-0400 Diastolic blood pressure 78 mm[Hg] Dr. Wyatt Marcelo Work Phone: [facility] Work Phone: 10-08-2021 11:30-0400 Heart rate 73 /min Dr. Wyatt Marcelo Work Phone: [facility] Work Phone: 10-08-2021 11:30-0400 Respiratory rate 14 /min Dr. Wyatt Marcelo Work Phone: [facility] Work Phone: 10-08-2021 11:30-0400 SaO2% (BldA) [Mass fraction] 97 % Dr. Wyatt Marcelo Work Phone: [facility] Work Phone: 10-08-2021 11:30-0400 Systolic blood pressure 126 mm[Hg] Dr. Wyatt Marcelo Work Phone: [facility] Work Phone: 08-19-2021 10:36-0500 Body mass index (BMI) [Ratio] 52.6 kg/m2 Dr. Wyatt Marcelo Work Phone: [facility] Work Phone: 08-19-2021 10:36-0500 Body temperature 97.2 [degF] Dr. Wyatt Marcelo Work Phone: [facility] Work Phone: 08-19-2021 10:36-0500 Body weight 156.[address] Wyatt Marcelo Work Phone: [facility] Work Phone: 08-19-2021 10:36-0500 Diastolic blood pressure 86 mm[Hg] Dr. Wyatt Marcelo Work Phone: [facility] Work Phone: 08-19-2021 10:36-0500 Heart rate 74 /min Dr. Wyatt Marcelo Work Phone: [facility] Work Phone: 08-19-2021 10:36-0500 Respiratory rate 18 /min Dr. Wyatt Marcelo Work Phone: [facility] Work Phone: 08-19-2021 10:36-0500 SaO2% (BldA) [Mass fraction] 99 % Dr. Wyatt Marcelo Work Phone: [facility] Work Phone: 08-19-2021 10:36-0500 Systolic blood pressure 124 mm[Hg] Dr. Wyatt Marcelo Work Phone: [facility] Work Phone: 07-28-2021 08:25-0500 Body mass index (BMI) [Ratio] 52.6 kg/m2 Dr. Wyatt Marcelo Work Phone: [facility] Work Phone: 07-28-2021 08:25-0500 Body temperature 98.6 [degF] Dr. Wyatt Marcelo Work Phone: [facility] Work Phone: 07-28-2021 08:25-0500 Body weight 156.[address] Wyatt Marcelo Work Phone: [facility] Work Phone: 07-28-2021 08:25-0500 Diastolic blood pressure 72 mm[Hg] Dr. Wyatt Marcelo Work Phone: [facility] Work Phone: 07-28-2021 08:25-0500 Heart rate 79 /min Dr. Wyatt Marcelo Work Phone: [facility] Work Phone: 07-28-2021 08:25-0500 Respiratory rate 14 /min Dr. Wyatt Marcelo Work Phone: [facility] Work Phone: 07-28-2021 08:25-0500 SaO2% (BldA) [Mass fraction] 97 % Dr. Wyatt Marcelo Work Phone: [facility] Work Phone: 07-28-2021 08:25-0500 Systolic blood pressure 124 mm[Hg] Dr. Wyatt Marcelo Work Phone: [facility] Work Phone: 07-01-2021 09:34-0500 Body mass index (BMI) [Ratio] 52.6 kg/m2 Dr. Wyatt Marcelo Work Phone: [facility] Work Phone: 07-01-2021 09:34-0500 Body temperature 98 [degF] Dr. Wyatt Marcelo Work Phone: [facility] Work Phone: 07-01-2021 09:34-0500 Body weight 156.[address] Wyatt Marcelo Work Phone: [facility] Work Phone: 07-01-2021 09:34-0500 Diastolic blood pressure 84 mm[Hg] Dr. Wyatt Marcelo Work Phone: [facility] Work Phone: 07-01-2021 09:34-0500 Heart rate 80 /min Dr. Wyatt Marcelo Work Phone: [facility] Work Phone: 07-01-2021 09:34-0500 Respiratory rate 18 /min Dr. Wyatt Marcelo Work Phone: [facility] Work Phone: 07-01-2021 09:34-0500 SaO2% (BldA) [Mass fraction] 98 % Dr. Wyatt Marcelo Work Phone: [facility] Work Phone: 07-01-2021 09:34-0500 Systolic blood pressure 138 mm[Hg] Dr. Wyatt Marcelo Work Phone: [facility] Work Phone: Encounters Encounter Date Encounter Type Care Provider Facility Start: 01-07-2025 End: 01-07-[address] Cali Lou MD -[facility] Work Phone: Start: 01-07-2025 End: 01-07-[address] Wyatt Marcelo MD Work Phone: [facility] Work Phone: Start: 12-13-2024 End: 12-13-2024 Patient encounter procedure Irma MINER -[facility] Work Phone: Start: 12-13-2024 End: 12-13-[address] Wyatt Marcelo MD Work Phone: [facility] Work Phone: Start: 11-07-2024 End: 11-07-[address] Wyatt Marcelo MD Work Phone: [facility] Work Phone: Start: 11-07-2024 End: 11-07-2024 Patient encounter procedure STEVEN BOLES MD -Laboratory, [facility] Start: 11-07-2024 End: 11-07-2024 ambulatory [place] Marcelo Facility:[facility] Start: 10-23-2024 End: 10-23-[address] Wyatt Marcelo MD -[facility] Work Phone: Start: 10-23-2024 End: 10-23-2024 ambulatory Wyatt Hamzahmai Facility:[facility] Start: 10-10-2024 End: 10-10-[address] Wyatt Marcelo MD Work Phone: [facility] Work Phone: Start: 10-10-2024 End: 10-10-[address] Wyatt Marcelo MD -Labor[facility], [facility] Start: 10-10-2024 End: 10-10-2024 [facility] Facility:[facility] Start: 08-31-2024 End: 08-31-2024 Patient encounter procedure Corie STEPHEN [facility] Work Phone: Start: 08-31-2024 End: 08-31-2024 ambulatory [place] Marcelo Facility:[facility] Start: 07-23-2024 End: 07-23-2024 Patient encounter procedure STEVEN BOLES MD -Laboratory, [facility] Start: 07-23-2024 End: 07-23-2024 [facility] Start: 07-11-2024 ambulatory Nimco Gonzalez Facility:[facility] Start: 07-11-2024 Registered Recurring Nimco Gonzalez PA -Physical Therapy Work Phone: Start: 06-25-2024 ambulatory Karl Lopez Facility:[facility] Start: 05-27-2024 End: 05-27-2024 ambulatory Nimco Gonzalez Facility:[facility] Start: 05-10-2024 End: 05-10-2024 ambulatory Nimco Gonzalez Facility:[facility] Start: 05-10-2024 End: 05-10-2024 ambulatory Nimco Gonzalez Facility:[facility] Start: 05-09-2024 End: 05-09-2024 ambulatory Nimco Gonzalez Facility:[facility] Start: 04-30-2024 End: 04-30-2024 ambulatory [facility] Facility:[facility] Start: 04-25-2024 Encounter for genera l adult medical examination without abnormal findings Wyatt Hooperulises [facility] Start: 04-25-2024 End: 04-25-2024 ambulatory Wyatt Marcelo Facility:[facility] Start: 04-25-2024 ambulatory Wyatt Marcelo Facili ty:[facility] Start: 04-25-2024 ambulatory Health Risk Assessment Facility:[facility] Start: 04-02-2024 End: 04-02-2024 [facility] Start: 04-01-2024 End: 04-01-2024 ambulatory [place]alla Marcelo Facility:[facility] Start: 03-20-2024 End: 03-20-2024 [facility] Start: 02-13-2024 End: 02-13-2024 ambulatory Wyatt Marcelo Facility:[facility] Start: 02-06-2024 End: 02-06-2024 ambulatory Lilianarichelle Bangura Facility:[facility] Start: 01-18-2024 End: 01-18-2024 Emergency department patient visit Lucio Bell Facility:[facility] Start: 01-12-2024 End: 01-12-2024 ambulatory Humzaalla Goodsonkoltonulises Facility:[facility] Start: 10-17-2023 End: 10-17-[address] Wyatt Marcelo Work Phone: [facility] Work Phone: Start: 10-17-2023 End: 10-17-[address] Wyatt Marcelo Work Phone: [facility], [facility] Start: 10-12-2023 End: 10-12-[address] Wyatt Marcelo Work Phone: [facility] Work Phone: Start: 10-12-2023 End: 10-12-[address] Wyatt Marcelo Work Phone: [facility] Work Phone: Start: 10-03-2023 End: 10-03-[address] Wyatt Marcelo Work Phone: [facility] Work Phone: Start: 09-08-2023 End: 09-08-[address] Wyatt Marcelo Work Phone: [facility] Work Phone: Start: 09-08-2023 End: 09-08-[address] Wyatt Marcelo Work Phone: [facility]-Radiology, [facility] Work Phone: Start: 08-17-2023 End: 08-17-[address] Wyatt Marcelo Work Phone: [facility]-Laboratory Work Phone: Start: 06-16-2023 End: 06-16-[address] Wyatt Marcelo Work Phone: [facility] Work Phone: Start: 06-16-2023 End: 06-16-[address] Wyatt Marcelo Work Phone: [facility]-Laboratory, [place] Start: 06-11-2023 End: 06-11-2023 Emergency department patient visit Dr. Wyatt Marcelo Work Phone: [facility]-Emergency Department Work Phone: Start: 05-10-[address] Wyatt Marcelo Work Phone: [facility] Start: 05-10-2023 End: 05-10-2023 Encounter for general adult medical examination without abnormal findings Dr. Wyatt Marcelo Work Phone: [facility] Start: 05-10-2023 End: 05-10-[address] Wyatt Marcelo Work Phone: [facility] Internal Medicine Work Phone: Start: 05-09-[address] Marta Marcelo Work Phone: [facility] Start: 04-26-2023 End: 04-26-[address] Wyatt Marcelo Work Phone: [facility] Work Phone: Start: 04-26-2023 End: 04-26-[address] Wyatt Marcelo Work Phone: [facility] Work Phone: Start: 03-22-2023 End: 03-22-[address] Wyatt Marcelo Work Phone: [facility] Work Phone: Start: 03-22-2023 End: 03-22-[address] Wyatt Marcelo Work Phone: [facility], [place] Start: 03-10-2023 End: 03-10-[address] Wyatt Marcelo Work Phone: [facility] Internal [facility] Work Phone: Start: 03-07-2023 End: 03-07-[address] Wyatt Marcelo Work Phone: [facility], [place] Start: 02-15-2023 End: 02-15-[address] Wyatt Marcelo Work Phone: [facility] Work Phone: Start: 02-15-2023 End: 02-15-[address] Wyatt Marcelo Work Phone: [facility], [facility] Work Phone: Start: 02-14-2023 Non-patient / Non-visit Dr. Wyatt Marcelo Work Phone: [facility] Internal Medicine Work Phone: Start: 02-03-2023 End: 02-03-[address] Wyatt Marcelo [facility] Start: 01-09-2023 End: 01-09-[address] Wyatt Marcelo Work Phone: [facility] Work Phone: Start: 01-09-2023 End: 01-09-[address] Wyatt Marcelo Work Phone: [facility] Work Phone: Start: 01-09-2023 End: 01-09-[address] [facility] Start: 01-03-2023 End: 01-03-[address] Wyatt Marcelo Work Phone: [facility] Work Phone: Start: 01-03-2023 End: 01-03-[address] Wyatt Marcelo Work Phone: [facility] Start: 12-30-2022 End: 12-30-[address] Wyatt Marcelo Work Phone: [facility] Internal Medicine Start: 12-14-2022 End: 12-14-[address] Wyatt Marcelo Work Phone: [facility] Work Phone: Start: 12-14-2022 End: 12-14-[address] [facility]att Marcel[facility] Start: 12-05-2022 End: 12-05-[address] Wyatt Marcelo Work Phone: [facility] Start: 12-02-2022 End: 12-02-[address] Wyatt Marcelo Work Phone: [facility] Work Phone: Start: 12-02-2022 End: 12-02-[address] Wyatt Marcelo Work Phone: [facility] Start: 11-25-2022 End: 11-25-[address] Wyatt Marcelo Work Phone: [facility] Start: 11-23-2022 End: 11-23-[address] Wyatt Marcelo Work Phone: [facility] Work Phone: Start: 11-23-2022 End: 11-23-[address] Wyatt Marcel[facility] Start: 11-23-2022 End: 11-23-[address] Wyatt Marcelo Work Phone: [facility] Start: 11-22-2022 End: 11-22-[address] Wyatt Marcelo Work Phone: [facility] Work Phone: Start: 11-22-2022 End: 11-22-[address] Wyatt Marcel[facility] Start: 11-08-2022 End: 11-08-[address] Wyatt Marcelo Work Phone: [facility] Work Phone: Start: 11-08-2022 End: 11-08-[address] Wyatt Marcel[facility] Start: 11-01-2022 End: 11-01-[address] Wyatt Marcelo Work Phone: [facility] Start: 10-31-2022 End: 10-31-[address] Wyatt Marcelo Work Phone: [facility]-Outpatient Breast Imaging Start: 10-28-2022 End: 10-28-[address] Wyatt Marcelo Work Phone: [facility] Start: 10-19-2022 End: 10-19-[address] Wyatt Marcelo Work Phone: [facility] Start: 10-14-2022 End: 10-14-[address] Wyatt Marcelo Work Phone: [facility] Start: 10-14-2022 Non-patient / Non-visit Dr. Wyatt Marcelo Work Phone: [facility] Start: 10-13-2022 End: 10-13-[address] Wyatt Marcelo Work Phone: [facility] Work Phone: Start: 10-13-2022 End: 10-13-[address] Wyatt Marcelo Work Phone: [facility] Start: 09-30-2022 End: 09-30-[address] Wyatt Marcelo Work Phone: [facility] Start: 09-29-[address] Marta Marcelo Work Phone: [facility] Start: 09-29-2022 End: 09-29-[address] Wyatt Marcelo Work Phone: [facility] Work Phone: Start: 09-29-2022 End: 09-29-[address] Wyatt Marcelo Work Phone: [facility] Start: 09-01-2022 End: 09-01-[address] Wyatt Marcelo Work Phone: [facility] Start: 09-01-2022 Non-patient / Non-visit Dr. Wyatt Marcelo Work Phone: [facility] Start: 08-15-2022 End: 08-15-[address] Wyatt Marcelo Work Phone: [facility] Endocrinology Start: 08-04-2022 End: 08-04-[address] Wyatt Marcelo Work Phone: [facility] Work Phone: Start: 08-04-2022 End: 08-04-[address] Wyatt Marcelo Work Phone: [facility], [place] Start: 07-01-2022 End: 07-01-[address] Wyatt Marcelo Work Phone: [facility] Start: 06-24-2022 End: 06-24-[address] Wyatt Marcelo Work Phone: [facility], [facility] Start: 06-13-[address] Marta Marcelo Work Phone: [facility] Start: 06-13-2022 End: 06-13-[address] Wyatt Marcelo Work Phone: [facility] Work Phone: Start: 06-13-2022 End: 06-13-[address] Wyatt Marcelo Work Phone: [facility], [facility] Start: 05-06-2022 End: 05-06-2022 Encounter for general adult medical examination without abnormal findings Dr. Wyatt Marcelo Work Phone: [facility] Start: 05-06-2022 End: 05-06-[address] Wyatt Marcelo Work Phone: [facility] Start: 04-22-2022 End: 04-22-[address] Wyatt Marcelo Work Phone: [facility] Work Phone: Start: 04-22-2022 End: 04-22-[address] Wyatt Marcelo Work Phone: [facility], [facility] Start: 03-22-2022 End: 03-22-[address] Wyatt Marcelo Work Phone: [facility] Work Phone: Start: 03-22-2022 End: 03-22-[address] Wyatt Marcelo Work Phone: [facility], [facility] Start: 03-22-[address] Marta Marcelo Work Phone: [facility] Start: 03-07-2022 End: 03-07-[address] Wyatt Rodriguez Phone: [facility]-ED Referred Start: 03-07-2022 End: 03-07-2022 Emergency department patient [facility]att [facility] Start: 02-10-2022 End: 02-10-[address] Wyatt Marcelo Work Phone: [facility] Start: 01-11-2022 End: 01-11-[address] [facility]att [facility] [place] Start: 12-27-2021 End: 12-27-[address] Wyatt Rodriguez Phone: [facility], [place] Start: 11-22-2021 End: 11-22-[address] Wyatt Marcelo Work Phone: [facility] Start: 10-21-2021 End: 10-21-[address] Wyatt Rodriguez Phone: [facility], [place] Start: 10-08-2021 End: 10-08-[address] [facility] Start: 10-08-2021 End: 10-08-[address] Wyatt Rodriguez Phone: [facility] Start: 09-14-2021 End: 09-14-[address] Wyatt Rodriguez Phone: [facility], [place] Start: 09-13-2021 End: 09-13-[address] Wyatt Rodriguez Phone: [facility], [facility] Start: 08-19-2021 End: 08-19-[address] Wyatt Marcelo Work Phone: [facility] Start: 07-28-2021 End: 07-28-[address] Wyatt Marcelo Work Phone: [facility] Start: 07-26-2021 End: 07-26-[address] Wyatt Marcelo Work Phone: [facility], [facility] Start: 07-01-2021 End: 07-01-[address] Wyatt Marcelo Work Phone: [facility]Pulmonary Medicine [facility] Start: 02-15-[address] Wyatt Marcelo Work Phone: [facility] Start: 07-04-2017 End: 07-05-2017 Ambulatory [facility] Facility:[facility] Start: 06-20-2017 Ambulatory [facility] Facility:[facility] Start: 04-27-2017 End: 04-28-2017 Ambulatory [facility] Start: 04-14-[address] Luna y:[facility] Start: 04-13-2017 End: 04-14-2017 Ambulatory NO REFERRING Facility:[facility] Start: 04-03-2017 End: 04-04-2017 Ambulatory TONY ALVAREZ Facility:[facility] Start: 02-06-2017 End: 02-07-2017 Ambulatory TONY ALVAREZ Facility:[facility] Procedures Date Procedure Procedure Detail Performing [...] Activity Detail Author Start: 01-16-2025 ambulatory Ambulatory Facility:[facility] Start: 05-10-2023 Patient referral [facility] Work Phone: Start: 04-26-2023 Evaluation of diagno stic study results [facility] Start: 09-29-2022 Patient referral [facility] Work Phone: Start: 03-07-2022 Hepatitis B surface antigen measurement [facility] Work Phone: Start: 03-07-2022 Hepatitis C antibody measurement [facility] Work Phone: 24 hour urine calciu m output measurement [facility] Cardiovascular stress testing [facility] Erythrocyte mean cor puscular volume determination [facility] Ferritin [Mass/volum e] in Serum or Plasma [facility] Hematocrit [Volume F raction] of Blood [facility] Hemoglobin [Mass/vol ume] in Blood [facility] Hemoglobin A1c/Hemog lobin.total in Blood [facility] Hepatitis B surface antigen measurement [facility] Work Phone: Hepatitis B virus rodas rface IgG Ab [Presence] in Serum [facility] Work Phone: Hepatitis C antibody measurement [facility] Work Phone: HIV 1+2 Ab+HIV1 p24 Ag [Presence] in Serum or Plasma by Immunoassay [facility] Work Phone: In-vitro immunologic test [facility] Work Phone: Iron [Mass/mass] in Unspecified specimen [facility] Iron and Iron bindin g capacity panel - Serum or Plasma [facility] Leukocytes [#/volume] in Blood [facility] Lipid 1996 panel - S rosita or Plasma [facility] Mean corpuscular hem oglobin concentration determination [facility] Mean corpuscular hem oglobin determination [facility] MG Breast - bilateral Screening [facility] Mycobacterium tuberc ulosis tuberculin stimulated gamma interferon [Presence] in Blood [facility] Work Phone: Parathyroid hormone measurement [facility] Patient Education [facility] Work Phone: Patient referral [facility] Work Phone: Platelets [#/volume] in Blood [facility] Red blood cell count [facility] Red cell distributio n width determination [facility] Thyroid stimulating hormone measurement [facility] Vitamin B12 measurement [facility] Vitamin D, 25-hydrox y measurement [facility] Vitamin D, 25-hydrox y measurement [facility] Immunizations Immunization Date Immunization Notes Care Provider [facility] 05-31-2024 influenza, seasonal, injectable, preservative free Dr. Wyatt Marcelo MD Work Phone: [facility] 04-19-2023 influenza, injectabl e, quadrivalent, preservative free Dr. Wyatt Marcelo Work Phone: [facility] 12-05-2022 tetanus toxoid, redu bassem diphtheria toxoid, and acellular pertussis vaccine, adsorbed Dr. Wyatt Marcelo Work Phone: [facility] 06-02-2022 influenza, injectabl e, quadrivalent, preservative free Dr. Wyatt Marcelo Work Phone: [facility] 06-02-2022 influenza, seasonal, injectable Dr. Wyatt Marcelo Work Phone: [facility] 07-30-2021 Covid (Moderna) Dr. Loni Marcelo Work Phone: [facility] 05-04-2021 influenza, injectabl e, quadrivalent, preservative free Dr. Wyatt Marcelo Work Phone: [facility] 05-04-2021 influenza, seasonal, injectable Dr. Wyatt Marcelo Work Phone: [facility] 05-04-2021 Seasonal, quadrivale nt, recombinant, injectable influenza vaccine, preservative free Dr. Wyatt Marcelo Work Phone: [facility] 09-21-2020 influenza, injectabl e, quadrivalent, preservative free Dr. Wyatt Marcelo Work Phone: [facility] 09-21-2020 influenza, seasonal, injectable Dr. Wyatt Marcelo Work Phone: [facility] 09-21-2020 Seasonal, quadrivale nt, recombinant, injectable influenza vaccine, preservative free Dr. Wyatt Marcelo Work Phone: [facility] 09-01-2020 Covid (Moderna) Dr. Loni Marcelo Work Phone: [facility] 08-04-2020 Covid (Moderna) Dr. Loni Marcelo Work Phone: [facility] 05-05-2019 influenza, injectabl e, quadrivalent, preservative free Dr. Wyatt Marcelo Work Phone: [facility] 05-05-2019 influenza, seasonal, injectable Dr. Wyatt Marcelo Work Phone: [facility] 04-13-2018 influenza, injectabl e, quadrivalent, preservative free Dr. Wyatt Marcelo Work Phone: [facility] 04-13-2018 influenza, seasonal, injectable Dr. Wyatt Marcelo Work Phone: [facility] 02-16-2018 hepatitis B vaccine, adult dosage Dr. Wyatt Marcelo Work Phone: [facility] 08-24-2017 hepatitis B vaccine, adult dosage Dr. Wyatt Marcelo Work Phone: [facility] 07-24-2017 hepatitis B vaccine, adult dosage Dr. Wyatt Marcelo Work Phone: [facility] 12-12-2016 tetanus toxoid, redu bassem diphtheria toxoid, and acellular pertussis vaccine, adsorbed Dr. Wyatt Marcelo Work Phone: [facility] 08-18-2015 influenza, injectabl e, quadrivalent, preservative free Dr. Wyatt Marcelo Work Phone: [facility] 05-19-2009 novel [id number], preservative-free, injectable Dr. Wyatt Marcelo Work Phone: [facility] Payers Date Payer Category Payer Self-pay [id number] 2023 Unknown [id number] Unknown [id number] Unknown [id number] 2.16.8 40.1.200085.3.579.2.462 Unknown [id number] 2.16.8 40.1.727460.3.579.2.462 Unknown [id number] 2.16.8 40.1.325379.3.579.2.462 Unknown [id number] 2.16.8 40.1.326312.3.579.2.462 Unknown [id number] 2.16.8 40.1.565447.3.579.2.462 Unknown [id number] 2.16.8 40.1.548624.3.579.2.462 Unknown [id number] 2.16.8 40.1.762164.3.579.2.462 Unknown [id number] 2.16.8 40.1.616144.3.579.2.462 Unknown [id number] 2.16.8 40.1.450503.3.579.2.462 Unknown [id number] 2.16.8 40.1.370694.3.579.2.462 Unknown [id number] 2.16.8 40.1.813976.3.579.2.462 Unknown [id number] 2.16.8 40.1.988070.3.579.2.462 Unknown [id number] 2.16.8 40.1.425327.3.579.2.462 Unknown [id number] 2.16.8 40.1.343501.3.579.2.462 Unknown [id number] 2.16.8 40.1.690412.3.579.2.462 Unknown [id number] 2.16.8 40.1.691959.3.579.2.462 Unknown [id number] 2.16.8 40.1.248433.3.579.2.462 Unknown [id number] 2.16.8 40.1.493298.3.579.2.462 Unknown [id number] 2.16.8 40.1.319891.3.579.2.462 Unknown [id number] 2.16.8 40.1.564841.3.579.2.462 Unknown [id number] 2.16.8 40.1.470463.3.579.2.462 Unknown [id number] 2.16.8 40.1.384115.3.579.2.462 Unknown [id number] 2.16.8 40.1.946197.3.579.2.462 Unknown [id number] 2.16.8 40.1.641214.3.579.2.462 Unknown [id number] 2.16.8 40.1.496443.3.579.2.462 Social History Date Type Detail Facility Start: 10-08-2021 End: 10-12-2023 Tobacco smoking status NHIS Unknown if ever smoked [facility] Start: 1980 Sex Assigned At Female [facility] Start: 08-31-2024 Tobacco smoking stat us NHIS Never smoked tobacco (finding) [facility] Start: 10-14-2024 End: 11-12-2024 Sex Female (finding) [facility] Medical Equipment Procedure Code Equipment Code Equipment [...] Start: 06-21-2018 CLIPEDNA FDA Start: 06-21-2018 Safety [place] ( Bd Eclipse) 25 gauge x 1 needle Start: 10-10-2023 EDNA WOOD D WEJARRETT FDA Start: 06-21-2018 CLIPEDNA FDA Start: 06-21-2018 Safety [place] ( Bd Eclipse) 25 gauge x 1 needle Start: 10-10-2023 EDNA WOOD D WILLA FDA Start: 06-21-2018 CLIPEDNA WEJARRETT FDA Start: 06-21-2018 Safety [place] ( Bd Eclipse) 25 gauge x 1 needle Start: 10-10-2023 End: 03-20-2024 EDNA WOOD FDA Start: 06-21-2018 EDNA WOOD FDA Start: 06-21-2018 Safety [place] ( Bd Eclipse) 25 gauge x 1 needle Start: 10-10-2023 End: 03-20-2024 EDNA WOOD FDA Start: 06-21-2018 EDNA WOOD FDA Start: 06-21-2018 Safety [place] ( Bd Eclipse) 25 gauge x 1 needle Start: 10-10-2023 End: 03-20-2024 EDNA WOOD FDA Start: 06-21-2018 EDNA WOOD FDA Start: 06-21-2018 Safety [place] ( Bd Eclipse) 25 gauge x 1 [...] 6:57am Hypothyroidism chronic January 07, 2025 11:26am [facility] Work Phone: 1(923) 813-564602-15-2025 Evaluation note* Diagnosis Onset Date Resolution Status Admit Date Sinus infection acute August 31, 2024 11:35am [facility] Work Phone: 1(205) 951-788302-15-2025 Evaluation note* Diagnosis Onset Date Resolution Status Admit Date Sinus infection acute August 31, 2024 11:35am Diabetes mellitus type 2, diet-controlled acute October 23, 2024 4:43pm Anxiety and depression chronic Ap 2024 4:43pm Hypertension chronic October 23, 2 025 4:43pm KRISTOPHER (obstructive sleep apnea) chroni c October 23, 2024 4:43pm [facility] Work Phone: 1(612) 710-148702-28-2022 NoteHNO ID: [id number] Author: Flower Pinedo MD Service: ? Author [...] the mornings and evenings. 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 employee Reason for Visit COVID-19 Needlestick injury of finger Occupational exposure in workplace [facility] Work Phone: Evaluation note* Diagnosis Onset Date Resolution Status BMI 45.0-49.9, adult chronic KRISTOPHER (obstructive sleep apnea) chronic Sjogren's disease chronic Sjogren's disease chronic Insulin resistance acute Hypothyroidism chronic Pain of left calf acute Hypertension chronic [facility] Work Phone: Evaluation note* Diagnosis Onset Date Resolution Status Pain of left calf acute Hypertension chronic Anxiety and depression chron ic Hypertension chronic Hypothyroidism chronic BMI 50.0-59.9, adult noneact werner Sweating increase noneactive [facility] Work Phone: Evaluation note* Diagnosis Onset Date Resolution Status Anxiety and depression chron ic Hypertension chronic Hypothyroidism chronic BMI 50.0-59.9, adult noneact werner Sweating increase noneactive COVID-19 acute [facility] Work Phone: Evaluation note* Diagnosis Onset Date Resolution Status COVID-19 acute Needlestick injury of finger acute Occupational exposure in workplace acute [facility] Work Phone: Evaluation note* Diagnosis Onset Date Resolution Status Needlestick injury of finger acute Occupational exposure in workplace acute Preventative health care non eactive [facility] Work Phone: Evaluation note* Diagnosis Onset Date Resolution Status Preventative health care non eactive Back pain noneactive Hip pain noneactive [facility] Work Phone: Evaluation note* Diagnosis Onset Date Resolution Status Back pain noneactive Hip pain noneactive Hypercalcemia acute Prediabetes acute Hypothyroidism chronic Vitamin deficiency chronic Acute bronchitis, unspecified acute B12 deficiency chronic Migraine headache without aura chronic Urge incontinence chronic B12 deficiency chronic [facility] Work Phone: Evaluation note* Diagnosis Onset Date Resolution Status Back pain noneactive Hip pain noneactive Hypercalcemia acute Prediabetes acute Hypothyroidism chronic Vitamin deficiency chronic B12 deficiency chronic Migraine headache without aura chronic Urge incontinence chronic B12 deficiency chronic Obesity, morbid, BMI 50 or higher acute Urge incontinence chronic Encounter for routine gynecological examination noneactive [facility] Work Phone: Evaluation note* Diagnosis Onset Date Resolution Status Hypercalcemia acute Prediabetes acute Hypothyroidism chronic Vitamin deficiency chronic B12 deficiency chronic Migraine headache without aura chronic Urge incontinence chronic B12 deficiency chronic Obesity, morbid, BMI 50 or higher acute Urge incontinence chronic Encounter for routine gynecological examination noneactive B12 deficiency chronic [facility] Work Phone: Evaluation note* Diagnosis Onset Date Resolution Status Hypercalcemia acute Prediabetes acute Hypothyroidism chronic Vitamin deficiency chronic B12 deficiency chronic Migraine headache without aura chronic Urge incontinence chronic B12 deficiency chronic Obesity, morbid, BMI 50 or higher acute Urge incontinence chronic Encounter for routine gynecological examination noneactive B12 deficiency chronic Lymph node enlargement acute Primary hyperparathyroidism acute [facility] Work Phone: Evaluation note* Diagnosis Onset Date Resolution Status B12 deficiency chronic Migraine headache without aura chronic Urge incontinence chronic B12 deficiency chronic Obesity, morbid, BMI 50 or higher acute Urge incontinence chronic Encounter for routine gynecological examination noneactive B12 deficiency chronic Lymph node enlargement acute Primary hyperparathyroidism acute B12 deficiency chronic Autoimmune disease acute Cat bite acute [facility] Work Phone: Evaluation note* Diagnosis Onset Date [...] (obstructive sleep apnea) chronic Sjogren's disease chronic [facility] Work Phone: Evaluation note* Diagnosis Onset Date Resolution Status B12 deficiency chronic Lymph node enlargement acute Primary hyperparathyroidism acute B12 deficiency chronic Autoimmune disease acute Cat bite acute B12 deficiency chronic BMI 45.0-49.9, adult chronic KRISTOPHER (obstructive sleep apnea) chronic Sjogren's disease chronic [facility] Work Phone: Evaluation note* Diagnosis Onset Date Resolution Status Autoimmune disease acute Cat bite acute B12 deficiency chronic BMI 45.0-49.9, adult chronic KRISTOPHER (obstructive sleep apnea) chronic Sjogren's disease chronic Palpitations acute Arthritis chronic Hypertension chronic [facility] Work Phone: Evaluation note* Diagnosis Onset Date Resolution Status BMI 45.0-49.9, adult chronic KRISTOPHER (obstructive sleep apnea) chronic Sjogren's disease chronic Palpitations acute Arthritis chronic Hypertension chronic Chest pain in adult noneacti ve [facility] Work Phone: Evaluation note* Diagnosis Onset Date Resolution Status Palpitations acute Arthritis chronic Hypertension chronic Chest pain in adult noneacti ve Borderline type 2 diabetes mellitus acute Preventative health care acu te Migraine headache without aura chronic [facility] Work Phone: Evaluation note* Diagnosis Onset Date Resolution Status Obesity, morbid, BMI 50 or higher acute Anxiety and depression chron ic [facility] Work Phone: Evaluation note* Diagnosis Onset Date Resolution Status Obesity, morbid, BMI 50 or higher acute Anxiety and depression chron ic Acute sinusitis acute [facility] Work Phone: Reason for referral (narrative)No reason for referral information available[facility] Work Phone: Summary Purpose Family History No [...] Will No July 28 10:25am Power of Pier Worker No July 28, 2021 10:25am Advance Directive Response Recorded Date/ Time Living Will No March 07 2 1:03pm Power of Pier Worker No March 07 022 1:03pm Advance Directive Response Recorded Date/ Time Living Will No March 07 2 12:03pm Power of Pier Worker No March 07 2 022 12:03pm Advance Directive Response Recorded Date/ Time Living Will No June 11, 2 023 8:07am Power of Pier Worker No June 11, 2023 8:07am Advance Directive Response Recorded Date/ Time Living Will No June 11, 023 9:07am Power of Pier Worker No June 11, 2023 9:07am Advance Directive Response Recorded Date/ Time Living Will No January 18, 2024 1 2:16pm Do you have a Healthcare Power of Pier Worker? No January 18, 2024 12:16pm Chief Complaint [...] LABS AND XRAY Amb Documentation B12 Annual (EMS DIRECTOR) Reason for Visit Back pain Hip pain Hypercalcemia Prediabetes Hypothyroidism Vitamin deficiency B12 deficiency Migraine headache without aura Urge incontinence B12 deficiency Obesity, morbid, BMI 50 or higher Urge incontinence Encounter for routine gynecological examination Chief Complaint 3 Y FU cold symptoms FOLLOW UP/MEDS B12 LABS AND XRAY Amb Documentation B12 Annual (EMS DIRECTOR) b12 SCREENING LOCALIZED PARATHYROID ADENOMA Reason for Visit Hypercalcemia Prediabetes Hypothyroidism Vitamin deficiency B12 deficiency Migraine headache without aura Urge incontinence B12 deficiency Obesity, morbid, BMI 50 or higher Urge incontinence Encounter for routine gynecological examination B12 deficiency Chief Complaint 1 Y FU cold symptoms FOLLOW UP/MEDS B12 LABS AND XRAY Amb Documentation B12 Annual (EMS DIRECTOR) b12 SCREENING LOCALIZED PARATHYROID ADENOMA HYPERPARATHYROIDISM Enlarged [...] LABS AND XRAY Amb Documentation B12 Annual (EMS DIRECTOR) b12 SCREENING LOCALIZED PARATHYROID ADENOMA HYPERPARATHYROIDISM Enlarged [...] LABS AND XRAY Amb Documentation B12 Annual (EMS DIRECTOR) b12 SCREENING LOCALIZED PARATHYROID ADENOMA HYPERPARATHYROIDISM Enlarged [...] LABS AND XRAY Amb Documentation B12 Annual (EMS DIRECTOR) b12 SCREENING LOCALIZED PARATHYROID ADENOMA HYPERPARATHYROIDISM Enlarged [...] section and content) DATE CREATED AUTHOR 01/09/2018 [facility] DATE CREATED AUTHOR AUTHOR'S ORGANIZ ATION 09/14/2021 [facility] DATE CREATED AUTHOR AUTHOR'S ORGANIZ ATION 10/03/2021 [facility] DATE CREATED AUTHOR AUTHOR'S ORGANIZ ATION 01/11/2025 [facility] Care Teams (unrecognized sec tion and content) [...] Provider, Refer ring Provider Active Dirk Paula KILN TRANSFER OPERATOR, KILN TRANSFER OPERATOR-C Attending Provider Active Team Status: Active Member Role Status Dates Dr. Wyatt Marcelo MD Primary Care Provider Active Dirk Paula KILN TRANSFER OPERATOR, KILN TRANSFER OPERATOR-C Attending Provider Active Team Status: Inactive Member Role Status Dates Dr. Wyatt Marcelo MD Primary Care P rovider, Attending Provider, Referring Provider Active Team Status: Inactive Member Role Status Dates Dr. Wyatt Marcelo MD Primary Care Provider Active Dirk Paula KILN TRANSFER OPERATOR, KILN TRANSFER OPERATOR-C Attending Provider Active Team Status: Inactive Member Role Status Dates Dr. Wyatt Marcelo MD Primary Care Provider, Refer ring Provider Active Laine Coronado KILN TRANSFER OPERATOR, KILN TRANSFER OPERATOR-C Attending Provider Active Team Status: Active Member [...] MD Primary Care Provider Active Laine Coronado KILN TRANSFER OPERATOR, KILN TRANSFER OPERATOR-C Attending Provider Active Team Status: Inactive Member [...] MD Primary Care Provider Active Dirk Paula KILN TRANSFER OPERATOR, KILN TRANSFER OPERATOR-C Attending Provider, Referring Prov ider Active Team Status: Inactive Member Role Status Dates Dr. Wyatt Marcelo MD Primary Care Provider Active STEVEN BOLES MD Attending Provider Active Team Status: Inactive Member Role Status Dates Dr. Wyatt Marcelo MD Primary Care Provider Active Dirk Paula KILN TRANSFER OPERATOR, KILN TRANSFER OPERATOR-C Attending Provider, Referring Prov ider Active Team [...] End: July 23, 2024 STEVEN BOLES MD Referring Provider Active [...] 2024 End: October 10, 2024 Dr. Wyatt Mracelo MD Attending Provider Active Start: October 10, [...] BE BASED ON THE PRIMARY CLINICAL RECORDS. [facility] provides no warranty or guarantee of the accuracy or completeness of information in this document.
[2025-01-16] MEDS: Lactated Ringers 1,000 ML 15 ML IV (06:03)
--- NOTE | 2025-01-16 06:27 | PCM.PRE.AN2 ---
ASA Classification* ASA Classification ASA Classification: 3 Assessment & Plan Anesthesia* Anesthesia Assessment Anesthesia Assessment: Discussed sedation and/or anesthesia options, risks, benefits, and alternatives with patient/parents/legal guardian/POA. Questions invited. The patient/parents/legal guardian/POA seems to understand and agrees to proceed with anesthesia plan. Reviewed the physical assessment, medical history, allergy history and patient home medications list prior to surgery/procedure/anesthetic and documented any changes. Performed airway and anesthesia risk assessments. Anesthesia Type Anesthesia Type: MAC History Source History Obtained from:: Patient and Chart Anesthesia Focused Assessment* Temperature: 95.8 F Pulse Rate: 76 Blood Pressure: 141/95 Respiratory Rate: 20 Pulse Ox: 97 Oxygen Delivery Method: Room Air Airway Assessment Mouth opens: 2 cm Mallampati Score: III Teeth Condition: Intact Neck Range of motion (ROM): Full ROM Labs Anesthesia Preop lab: CBC WBC 6.7 K/mm3 (4.4-11.0) 11/07/24 11:30 11/07/24 RBC 3.76 M/mm3 (4.2-5.4) L 11/07/24 11:30 11/07/24 Hgb 11.9 g/dL (12.0-15.0) L 11/07/24 11:30 11/07/24 Hct 36.6 % (37-47) L 11/07/24 11:30 11/07/24 Plt Count 318 K/mm3 (150-450) 11/07/24 11:30 11/07/24 CHEMISTRY Potassium 4.2 mmol/L (3.5-5.1) 04/25/24 07:56 04/25/24 Sodium 139 mmol/L (136-145) 04/25/24 07:56 04/25/24 Phosphorus 3.0 mg/dL (2.5-4.9) 04/25/24 07:56 04/25/24 BUN 12 mg/dL (7-18) 04/25/24 07:56 04/25/24 Creatinine 0.80 mg/dL (0.70-1.20) 11/07/24 11:30 11/07/24 Glucose 115 mg/dL (74-106) H 04/25/24 07:56 04/25/24 TSH 0.729 uIU/mL (0.300-4.200) 11/07/24 11:30 11/07/24 COAG PT 12.9 SECONDS (11.7-14.9) 06/15/18 11:30 06/15/18 Urine Test Negative Negative 06/21/18 05:38 06/21/18 Pre-Assessment Diagnosis/Proposed Procedure Planned Operative Procedure(s): EGD Anesthesia History Anesthesia History - valet manager: Anesthesia History - valet manager Hx Hospitalization No 01/14/25 14:39 Any Problems With Anesthesia No 01/14/25 14:39 Cholinesterase deficiency No 01/14/25 14:39 You/Your Family Experience No 01/14/25 14:39 fever (hyperthermia) with Relationship Recent Exposure to Contagious No 01/16/25 05:54 Disease Does patient have nerve No 01/14/25 14:39 stimulator Patient instructed to have device shut off --Does patient have Pacemaker No 01/16/25 05:54 or ICD? When Was Last Pacemaker Check QUESTION #4 FULL TEXT: You/Your Family Experience fever (hyperthermia) with Anesthesia Last Oral Intake Last Oral intake: Last Oral Intake NPO since 18:00 01/16/25 05:54 Meds taken in AM with sips of water? Meds patient instructed to take am of surgery PONV PONV - valet manager: PONV - valet manager Female Yes 01/14/25 14:39 HX of Motion Sickness No 01/14/25 14:39 HX of N/V After Surgery No 01/14/25 14:39 Non-Smoker Yes 01/14/25 14:39 Duration of Surgery greater No 01/14/25 14:39 than 60 minutes Number of Risk Factors 2 01/14/25 14:39 PONV Score Moderate Risk 01/14/25 14:39 Height & Weight Height & Weight: Anesthesia: Height & Weight Height 5 ft 8 in 01/16/25 05:54 Weight: 177.6 kg 01/16/25 05:54 Body Mass Index (BMI) 59.5 01/16/25 05:54 Respiratory Assessment Respiratory Assessment - valet manager: Respiratory Tract Infection Hx - valet manager Hx Respiratory Tract Infection No 01/14/25 14:39 STOP Sleep Apnea STOP Sleep Apnea - valet manager: STOP Sleep Apnea - valet manager Hx Hypertension Yes 01/14/25 14:39 Hx Sleep Apnea Yes 01/14/25 14:39 CPAP No 01/14/25 14:39 BIPAP Yes 01/14/25 14:39 Do you snore loudly (louder than talking or can be heard Do you often feel tired/ fatigued/ sleepy during daytime? Has anyone observed you stop breathing during sleep? STOP Results Positive 01/14/25 14:39 QUESTION #5 FULL TEXT : Do you snore loudly (louder than talking or can be heard through closed doors)? 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 Specify any problems Hx of Preganancy in last 3 No 01/14/25 14:39 Months Nurse Filling Out Transfusion [facility] 01/14/25 14:39 & Questions: Date: 01/14/25 01/14/25 14:39 Time: 14:46 01/14/25 14:39 Patient unable to answer at this time (ie. confused, unrespo /Reproduction History /Reproductive History - valet manager: /Reproductive Hx- valet manager Hx Now No 01/14/25 14:39 Gestational Age (in weeks): EDC: Hx Hx Para Hx Section SAB No 01/14/25 14:39 Active Medications Active Medications: Current Medications Generic Name Dose Route Start Last Admin Trade Name Freq PRN Reason Stop Dose Admin Lactated Ringer's 1,000 mls @ 15 mls/hr 01/16/25 05:45 01/16/25 06:03 IV 15 mls/hr .Q48H TELLY Administration PFSH Medical History History of prediabetes Rheumatoid arthritis Low iron High cholesterol History of IBS Hyperparathyroidism Diabetes mellitus type 2, diet-controlled Preventative health care Palpitations Autoimmune disease Cat bite Primary hyperparathyroidism B12 deficiency Urge incontinence Hypercalcemia COVID-19 Insulin resistance Depression Anxiety Alcohol use History of steroid therapy Thyroid disease Restless legs Back pain Migraine headache History of hiatal hernia Gastric reflux Non-smoker BiPAP (biphasic positive airway pressure) dependence Sleep apnea Shortness of breath on exertion Leg cramps History of edema History of echocardiogram Hypertension History of irregular heartbeat Constipation Sleep concern Sjogren's disease Vitamin deficiency GERD (gastroesophageal reflux disease) IBS (irritable bowel syndrome) Arthritis Seasonal allergies Anemia Stomach ulcer Anxiety and depression Home Medications ?Medication ?Instructions ?Recorded ?Last Taken ?Type ferrous sulfate 325 mg (65 mg 325 mg PO DAILY 12/16/19 01/08/25 History iron) tablet (FeroSul) mecobalamin (vitamin B12) 1,000 1,000 mcg PO DAILY 11/14/23 01/15/25 History mcg chewable tablet melatonin 3 mg capsule 3 mg PO HS 11/14/23 01/15/25 History upadacitinib 15 mg tablet,extended 15 mg PO DAILY 11/14/23 01/15/25 History release 24 hr (Rinvoq) ubrogepant 100 mg tablet (Ubrelvy) 100 mg PO ONCE PRN MIGRAINES #15 12/12/23 01/13/25 Rx tabs alprazolam 0.25 mg tablet (Xanax) 0.25 mg PO DAILY PRN PRN Anxiety 04/25/24 01/09/25 Rx #20 tabs prednisone 10 mg tablet 10 mg PO DAILY PRN Arthritis #100 04/25/24 01/02/25 Rx tabs methotrexate 2 mg/mL oral solution 2.5 mg PO SA 08/31/24 Unknown History duloxetine 30 mg capsule,delayed 30 mg PO DAILY #90 caps 09/05/24 01/15/25 Rx release losartan 100 mg tablet 100 mg PO DAILY #90 tabs 10/14/24 01/16/25 Rx duloxetine 60 mg capsule,delayed 60 mg PO QDAY DEPRESSION #90 caps 12/03/24 01/15/25 Rx release (Cymbalta) levothyroxine 150 mcg tablet 150 mcg PO MOTUTHFRSA 07/01/25 07/03/25 History Allergy/AdvReac Type Severity Reaction Status Date / Time sumatriptan Allergy Severe headache Verified 01/16/25 05:53 penicillin G Allergy Mild Other Verified 01/16/25 05:53 latex Allergy Rash Verified 01/16/25 05:53 escitalopram (From Lexapro) AdvReac Other Verified 01/16/25 05:53 Family History Grandmother Heart disease Arthritis Diabetes Hypertension Thyroid disorder Stomach ulcer Mother Asthma Arthritis Hypertension Osteoporosis Aunt Arthritis Heart disease Autoimmune disease Grandfather Cancer lung Father Hypertension Uncle Heart disease Other Anemia Anesthesia complication Anxiety Parkinson disease Skin cancer Surgical History Hx of hysterectomy History of total vaginal hysterectomy (TVH) lesion removal from lip Social History number of children: 2 sexually active: No Smoking Status: Never smoker alcohol intake: current alcohol intake frequency: holidays/special occasions only details: Social substance use type: does not use caffeine: Yes what type of physical activity do you participate in: none seatbelt use: always do you feel safe at home: Yes 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 Physical Exam Const alert and oriented x3 Nutritional Appearance: obese Neck full ROM Cardio regular rate and regular rhythm Neuro oriented x3 and moves all extremities
--- NOTE | 2025-01-16 06:27 | PCM.PRE.AN2 ---
ASA Classification* ASA Classification ASA Classification: 3 Assessment & Plan Anesthesia* Anesthesia Assessment Anesthesia Assessment: Discussed sedation and/or anesthesia options, risks, benefits, and alternatives with patient/parents/legal guardian/POA. Questions invited. The patient/parents/legal guardian/POA seems to understand and agrees to proceed with anesthesia plan. Reviewed the physical assessment, medical history, allergy history and patient home medications list prior to surgery/procedure/anesthetic and documented any changes. Performed airway and anesthesia risk assessments. Anesthesia Type Anesthesia Type: MAC History Source History Obtained from:: Patient and Chart Anesthesia Focused Assessment* Temperature: 95.8 F Pulse Rate: 76 Blood Pressure: 141/95 Respiratory Rate: 20 Pulse Ox: 97 Oxygen Delivery Method: Room Air Airway Assessment Mouth opens: 2 cm Mallampati Score: III Teeth Condition: Intact Neck Range of motion (ROM): Full ROM Labs Anesthesia Preop lab: CBC WBC 6.7 K/mm3 (4.4-11.0) 11/07/24 11:30 11/07/24 RBC 3.76 M/mm3 (4.2-5.4) L 11/07/24 11:30 11/07/24 Hgb 11.9 g/dL (12.0-15.0) L 11/07/24 11:30 11/07/24 Hct 36.6 % (37-47) L 11/07/24 11:30 11/07/24 Plt Count 318 K/mm3 (150-450) 11/07/24 11:30 11/07/24 CHEMISTRY Potassium 4.2 mmol/L (3.5-5.1) 04/25/24 07:56 04/25/24 Sodium 139 mmol/L (136-145) 04/25/24 07:56 04/25/24 Phosphorus 3.0 mg/dL (2.5-4.9) 04/25/24 07:56 04/25/24 BUN 12 mg/dL (7-18) 04/25/24 07:56 04/25/24 Creatinine 0.80 mg/dL (0.70-1.20) 11/07/24 11:30 11/07/24 Glucose 115 mg/dL (74-106) H 04/25/24 07:56 04/25/24 TSH 0.729 uIU/mL (0.300-4.200) 11/07/24 11:30 11/07/24 COAG PT 12.9 SECONDS (11.7-14.9) 06/15/18 11:30 06/15/18 Urine Test Negative Negative 06/21/18 05:38 06/21/18 Pre-Assessment Diagnosis/Proposed Procedure Planned Operative Procedure(s): EGD Anesthesia History Anesthesia History - director business development: Anesthesia History - director business development Hx Hospitalization No 01/14/25 14:39 Any Problems With Anesthesia No 01/14/25 14:39 Cholinesterase deficiency No 01/14/25 14:39 You/Your Family Experience No 01/14/25 14:39 fever (hyperthermia) with Relationship Recent Exposure to Contagious No 01/16/25 05:54 Disease Does patient have nerve No 01/14/25 14:39 stimulator Patient instructed to have device shut off --Does patient have Pacemaker No 01/16/25 05:54 or ICD? When Was Last Pacemaker Check QUESTION #4 FULL TEXT: You/Your Family Experience fever (hyperthermia) with Anesthesia Last Oral Intake Last Oral intake: Last Oral Intake NPO since 18:00 01/16/25 05:54 Meds taken in AM with sips of water? Meds patient instructed to take am of surgery PONV PONV - director business development: PONV - director business development Female Yes 01/14/25 14:39 HX of Motion Sickness No 01/14/25 14:39 HX of N/V After Surgery No 01/14/25 14:39 Non-Smoker Yes 01/14/25 14:39 Duration of Surgery greater No 01/14/25 14:39 than 60 minutes Number of Risk Factors 2 01/14/25 14:39 PONV Score Moderate Risk 01/14/25 14:39 Height & Weight Height & Weight: Anesthesia: Height & Weight Height 5 ft 8 in 01/16/25 05:54 Weight: 177.6 kg 01/16/25 05:54 Body Mass Index (BMI) 59.5 01/16/25 05:54 Respiratory Assessment Respiratory Assessment - director business development: Respiratory Tract Infection Hx - director business development Hx Respiratory Tract Infection No 01/14/25 14:39 STOP Sleep Apnea STOP Sleep Apnea - director business development: STOP Sleep Apnea - director business development Hx Hypertension Yes 01/14/25 14:39 Hx Sleep Apnea Yes 01/14/25 14:39 CPAP No 01/14/25 14:39 BIPAP Yes 01/14/25 14:39 Do you snore loudly (louder than talking or can be heard Do you often feel tired/ fatigued/ sleepy during daytime? Has anyone observed you stop breathing during sleep? STOP Results Positive 01/14/25 14:39 QUESTION #5 FULL TEXT : Do you snore loudly (louder than talking or can be heard through closed doors)? 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 Specify any problems Hx of Preganancy in last 3 No 01/14/25 14:39 Months Nurse Filling Out Transfusion [facility] 01/14/25 14:39 & Questions: Date: 01/14/25 01/14/25 14:39 Time: 14:46 01/14/25 14:39 Patient unable to answer at this time (ie. confused, unrespo /Reproduction History /Reproductive History - director business development: /Reproductive Hx- director business development Hx Now No 01/14/25 14:39 Gestational Age (in weeks): EDC: Hx Hx Para Hx Section SAB No 01/14/25 14:39 Active Medications Active Medications: Current Medications Generic Name Dose Route Start Last Admin Trade Name Freq PRN Reason Stop Dose Admin Lactated Ringer's 1,000 mls @ 15 mls/hr 01/16/25 05:45 01/16/25 06:03 IV 15 mls/hr .Q48H TELLY Administration PFSH Medical History History of prediabetes Rheumatoid arthritis Low iron High cholesterol History of IBS Hyperparathyroidism Diabetes mellitus type 2, diet-controlled Preventative health care Palpitations Autoimmune disease Cat bite Primary hyperparathyroidism B12 deficiency Urge incontinence Hypercalcemia COVID-19 Insulin resistance Depression Anxiety Alcohol use History of steroid therapy Thyroid disease Restless legs Back pain Migraine headache History of hiatal hernia Gastric reflux Non-smoker BiPAP (biphasic positive airway pressure) dependence Sleep apnea Shortness of breath on exertion Leg cramps History of edema History of echocardiogram Hypertension History of irregular heartbeat Constipation Sleep concern Sjogren's disease Vitamin deficiency GERD (gastroesophageal reflux disease) IBS (irritable bowel syndrome) Arthritis Seasonal allergies Anemia Stomach ulcer Anxiety and depression Home Medications ?Medication ?Instructions ?Recorded ?Last Taken ?Type ferrous sulfate 325 mg (65 mg 325 mg PO DAILY 12/16/19 01/08/25 History iron) tablet (FeroSul) mecobalamin (vitamin B12) 1,000 1,000 mcg PO DAILY 11/14/23 01/15/25 History mcg chewable tablet melatonin 3 mg capsule 3 mg PO HS 11/14/23 01/15/25 History upadacitinib 15 mg tablet,extended 15 mg PO DAILY 11/14/23 01/15/25 History release 24 hr (Rinvoq) ubrogepant 100 mg tablet (Ubrelvy) 100 mg PO ONCE PRN MIGRAINES #15 12/12/23 01/13/25 Rx tabs alprazolam 0.25 mg tablet (Xanax) 0.25 mg PO DAILY PRN PRN Anxiety 04/25/24 01/09/25 Rx #20 tabs prednisone 10 mg tablet 10 mg PO DAILY PRN Arthritis #100 04/25/24 01/02/25 Rx tabs methotrexate 2 mg/mL oral solution 2.5 mg PO SA 08/31/24 Unknown History duloxetine 30 mg capsule,delayed 30 mg PO DAILY #90 caps 09/05/24 01/15/25 Rx release losartan 100 mg tablet 100 mg PO DAILY #90 tabs 10/14/24 01/16/25 Rx duloxetine 60 mg capsule,delayed 60 mg PO QDAY DEPRESSION #90 caps 12/03/24 01/15/25 Rx release (Cymbalta) levothyroxine 150 mcg tablet 150 mcg PO MOTUTHFRSA 07/01/25 07/03/25 History Allergy/AdvReac Type Severity Reaction Status Date / Time sumatriptan Allergy Severe headache Verified 01/16/25 05:53 penicillin G Allergy Mild Other Verified 01/16/25 05:53 latex Allergy Rash Verified 01/16/25 05:53 escitalopram (From Lexapro) AdvReac Other Verified 01/16/25 05:53 Family History Grandmother Heart disease Arthritis Diabetes Hypertension Thyroid disorder Stomach ulcer Mother Asthma Arthritis Hypertension Osteoporosis Aunt Arthritis Heart disease Autoimmune disease Grandfather Cancer lung Father Hypertension Uncle Heart disease Other Anemia Anesthesia complication Anxiety Parkinson disease Skin cancer Surgical History Hx of hysterectomy History of total vaginal hysterectomy (TVH) lesion removal from lip Social History number of children: 2 sexually active: No Smoking Status: Never smoker alcohol intake: current alcohol intake frequency: holidays/special occasions only details: Social substance use type: does not use caffeine: Yes what type of physical activity do you participate in: none seatbelt use: always do you feel safe at home: Yes 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 Physical Exam Const alert and oriented x3 Nutritional Appearance: obese Neck full ROM Cardio regular rate and regular rhythm Neuro oriented x3 and moves all extremities
--- NOTE | 2025-01-16 06:30 | EGD_PTH ---
PATIENT: RAMEZ PAUL LOC: [facility] U#:[id number] AGE/SX: 44/F ROOM: RE01/16/[address]: Dr. Hammad Loaiza DO : 1980 BED: DIS: 01/16/2025 SPEC #: [id number] RECD: 01/16/25 10:08 STATUS: BETH SUKI #: [id number] GERMANIA: 01/16/25 06:[address]: Hammad Loaiza DEPT: SURGICAL PATHOLOGY RECD BY: Logan Huitron ENTERED: 01/16/25 15:20 SP TYPE: EGD BIOPSY DAVE DR: Dr. Wyatt Marcelo MD Tissues: A - Esophagus, NOS B - Gastric mucous membrane Procedures: Immunohistochemical Stains Surgery Specimen Level IV HEADER OPERATION: EGD, biopsy PRE-OP DIAGNOSIS: GERD TISSUE SUBMITTED: A- Distal esophagus biopsy, B- Gastric antrum biopsy MICROSCOPIC DIAGNOSIS A. Distal esophagus, biopsy: Columnar mucosa with marked active chronic inflammation and reactive epithelial change. Negative for goblet cell metaplasia and dysplasia. No squamous mucosa seen. B. Stomach, antrum, biopsy: Active chronic gastritis with focal erosion/ulceration. Small intestinal-type mucosa with Samara gland hyperplasia, consistent with duodenal origin. IHC negative for H pylori organisms. MICROSCOPIC DESCRIPTION Slides are reviewed. All matched controls reacted appropriately. These tests were developed and their performance characteristics determined by [facility]. They may not have been cleared or approved by the U.S. Food and Drug Administration. The FDA has determined that such clearance or approval is not necessary. The above immunohistochemical/dualISH markers are viewed by the Pathologist. GROSS DESCRIPTION A. Received in fixative is one container labeled with the patient's name and designated Distal esophagus biopsy. The specimen consists of multiple irregular fragments of light jama soft tissue that in aggregate measure 0.2 to 0.4 cm. The specimen is totally submitted in one cassette. B. Received in fixative is one container labeled with the patient's name and designated Gastric antrum biopsy. The specimen consists of multiple irregular fragments of light jama soft tissue that in aggregate measure 0.3 to 0.6 cm. The specimen is totally submitted in one cassette. JOHN/ 01/16/2025 CPT:17941e9,34121
--- NOTE | 2025-01-16 06:30 | EGD_PTH ---
PATIENT: RAMEZ PAUL LOC: [facility] U#:[id number] AGE/SX: 44/F ROOM: RE01/16/[address]: Dr. Hammad Loaiza DO : 1980 BED: DIS: 01/16/2025 SPEC #: [id number] RECD: 01/16/25 10:08 STATUS: BETH SUKI #: [id number] GERMANIA: 01/16/25 06:[address]: Hammad Loaiza DEPT: SURGICAL PATHOLOGY RECD BY: Logan Huitron ENTERED: 01/16/25 15:20 SP TYPE: EGD BIOPSY DAVE DR: Dr. Wyatt Marcelo MD Tissues: A - Esophagus, NOS B - Gastric mucous membrane Procedures: Immunohistochemical Stains Surgery Specimen Level IV HEADER OPERATION: EGD, biopsy PRE-OP DIAGNOSIS: GERD TISSUE SUBMITTED: A- Distal esophagus biopsy, B- Gastric antrum biopsy MICROSCOPIC DIAGNOSIS A. Distal esophagus, biopsy: Columnar mucosa with marked active chronic inflammation and reactive epithelial change. Negative for goblet cell metaplasia and dysplasia. No squamous mucosa seen. B. Stomach, antrum, biopsy: Active chronic gastritis with focal erosion/ulceration. Small intestinal-type mucosa with Samara gland hyperplasia, consistent with duodenal origin. IHC negative for H pylori organisms. MICROSCOPIC DESCRIPTION Slides are reviewed. All matched controls reacted appropriately. These tests were developed and their performance characteristics determined by [facility]. They may not have been cleared or approved by the U.S. Food and Drug Administration. The FDA has determined that such clearance or approval is not necessary. The above immunohistochemical/dualISH markers are viewed by the Pathologist. GROSS DESCRIPTION A. Received in fixative is one container labeled with the patient's name and designated Distal esophagus biopsy. The specimen consists of multiple irregular fragments of light jama soft tissue that in aggregate measure 0.2 to 0.4 cm. The specimen is totally submitted in one cassette. B. Received in fixative is one container labeled with the patient's name and designated Gastric antrum biopsy. The specimen consists of multiple irregular fragments of light jama soft tissue that in aggregate measure 0.3 to 0.6 cm. The specimen is totally submitted in one cassette. JOHN/ 01/16/2025 CPT:[id number]
--- NOTE | 2025-01-16 06:55 | PCM.HP.STD ---
HPI - General General Date of Admission: 01/16/25 Date of Service: 01/16/25 Chief Complaint: GERD HPI Narrative ALMA PAUL, is a 44 F who presents Chief Complaint: BRBPR [facility] established in 2020 with diarrhea and constipation. Pt has heartburn and takes TUMs and nexium PRN. EGD 03.17.22; Gastritis. Biopsied. - Erythematous duodenopathy. Biopsied. Colonoscopy 03.17.22; - Tortuous colon. - One 3 mm polyp in the rectum, removed with a jumbo cold forceps. Resected and retrieved. OV 12.13.24 for reestablishment. Over the last week pt has had BRBPR when wiping. She has not seen it in the toilet bowl. She does endorse worse constipation at this time with a a bm every 2-3 days. She does not take anything daily for constipation. Pt also having worse heartburn over the past few weeks. She will take pepcid as needed but not daily. [facility] Medical History History of prediabetes Rheumatoid arthritis Low iron High cholesterol History of IBS Hyperparathyroidism Diabetes mellitus type 2, diet-controlled Preventative health care Palpitations Autoimmune disease Cat bite Primary hyperparathyroidism B12 deficiency Urge incontinence Hypercalcemia COVID-19 Insulin resistance Depression Anxiety Alcohol use History of steroid therapy Thyroid disease Restless legs Back pain Migraine headache History of hiatal hernia Gastric reflux Non-smoker BiPAP (biphasic positive airway pressure) dependence Sleep apnea Shortness of breath on exertion Leg cramps History of edema History of echocardiogram Hypertension History of irregular heartbeat Constipation Sleep concern Sjogren's disease Vitamin deficiency GERD (gastroesophageal reflux disease) IBS (irritable bowel syndrome) Arthritis Seasonal allergies Anemia Stomach ulcer Anxiety and depression Home Medications ?Medication ?Instructions ?Recorded ?Last Taken ?Type ferrous sulfate 325 mg (65 mg 325 mg PO DAILY 12/16/19 01/08/25 History iron) tablet (FeroSul) mecobalamin (vitamin B12) 1,000 1,000 mcg PO DAILY 11/14/23 01/15/25 History mcg chewable tablet melatonin 3 mg capsule 3 mg PO HS 11/14/23 01/15/25 History upadacitinib 15 mg tablet,extended 15 mg PO DAILY 11/14/23 01/15/25 History release 24 hr (Rinvoq) ubrogepant 100 mg tablet (Ubrelvy) 100 mg PO ONCE PRN MIGRAINES #15 12/12/23 01/13/25 Rx tabs alprazolam 0.25 mg tablet (Xanax) 0.25 mg PO DAILY PRN PRN Anxiety 04/25/24 01/09/25 Rx #20 tabs prednisone 10 mg tablet 10 mg PO DAILY PRN Arthritis #100 04/25/24 01/02/25 Rx tabs methotrexate 2 mg/mL oral solution 2.5 mg PO SA 08/31/24 Unknown History duloxetine 30 mg capsule,delayed 30 mg PO DAILY #90 caps 09/05/24 01/15/25 Rx release losartan 100 mg tablet 100 mg PO DAILY #90 tabs 10/14/24 01/16/25 Rx duloxetine 60 mg capsule,delayed 60 mg PO QDAY DEPRESSION #90 caps 12/03/24 01/15/25 Rx release (Cymbalta) levothyroxine 150 mcg tablet 150 mcg PO MOTUTHFRSA 01/14/25 01/16/25 History Allergy/AdvReac Type Severity Reaction Status Date / Time sumatriptan Allergy Severe headache Verified 01/16/25 05:53 penicillin G Allergy Mild Other Verified 01/16/25 05:53 latex Allergy Rash Verified 01/16/25 05:53 escitalopram (From Lexapro) AdvReac Other Verified 01/16/25 05:53 Family History Grandmother Heart disease Arthritis Diabetes Hypertension Thyroid disorder Stomach ulcer Mother Asthma Arthritis Hypertension Osteoporosis Aunt Arthritis Heart disease Autoimmune disease Grandfather Cancer lung Father Hypertension Uncle Heart disease Other Anemia Anesthesia complication Anxiety Parkinson disease Skin cancer Surgical History Hx of hysterectomy History of total vaginal hysterectomy (TVH) lesion removal from lip Social History number of children: 2 sexually active: No Smoking Status: Never smoker alcohol intake: current alcohol intake frequency: holidays/special occasions only details: Social substance use type: does not use caffeine: Yes what type of physical activity do you participate in: none seatbelt use: always do you feel safe at home: Yes 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 [employer] Constitutional Constitutional: Denies fatigue, fever(s), poor appetite, weight gain or weight loss Gastrointestinal Gastrointestinal: Denies belching, bloating, change in bowel habits, change in stool character, chewing difficulty, coffee ground emesis, constipation, cramping, diarrhea, dyspepsia, dysphagia, early satiety, excessive flatus, fecal incontinence, heartburn, hematemesis, hematochezia, hemorrhoids, loose stools, melena, nausea, odynophagia, rectal bleeding, tenesmus, vomiting or weight changes Vital Signs Vital Signs Vital Signs: 01/16/25 05:54 01/16/25 05:54 01/16/25 06:28 Temperature 95.8 F L 95.8 F L Temperature Source Temporal Pulse Rate 76 76 Respiratory Rate 20 H 20 H Respiratory Pattern Normal Blood Pressure 141/95 H 141/95 H Blood Pressure Mean 110 Blood Pressure Source Monitor Blood Pressure Position Semi-Fowlers Blood Pressure Location Left Arm Pulse Ox 97 97 Oxygen Delivery Method Room Air Room Air Weight Weight: 391 lb 8.655 oz Body Mass Index (BMI) 59.5 Physical Exam Const alert and oriented x3 Nutritional Appearance: obese Neck full ROM Cardio regular rate and regular rhythm Neuro oriented x3 and moves all extremities Assessment & Plan Assessment/Plan (1) GERD (gastroesophageal reflux disease): PLAN: Plan Assessment and Plan (1) Constipation: Status: Acute Plan: Alma is a 44 yo female pt here today for evaluation of BRBPR x1 week. Pt originally established with [facility] in 2020 for alternating constipation and diarrhea as well as heartburn. She underwent EGD and colonoscopy which showed gastritis and one hyperplastic polyp. Recommend repeat EGD in one year which she did not end up having. She has had worsening constipation over the past few weeks which is when she started seeing bright red blood. Blood is likely from increased straining. I have recommended she start a fiber supplement and consider prescription medication for constipation. She will increase famotidine to daily. She is on GLP-1 which may be slowing down her entire GI tract leading to constipation and increased heartburn -EGD -Start fiber supplement -Start famotidine daily (2) GERD (gastroesophageal reflux disease): Status: Chronic
--- NOTE | 2025-01-16 07:19 | PCM.POST.ANE ---
Anesthesia: Postop Eval I Current Vital Signs Temperature: 97 F Pulse Rate: 72 Blood Pressure: 135/102 Respiratory Rate: 16 Pulse Ox: 98 Oxygen Delivery Method: Room Air Assessment Airway patent: Yes Spontaneous unlabored respirations: Yes Mental status: Awake and Calm nausea: No Vomiting: No Anesthesia Complication: No Fluid Hydration Crystalloid volume administer (ml): 100 Total IV fluid infused: 100 Progress Note Anesthesia document: Postop Eval 1 completed: Yes
--- NOTE | 2025-01-16 07:25 | OP.CCLET_ITS ---
01/16/2025 Wyatt Marcelo MD [address] [place] [address] [place] [address] Re : Upper GI endoscopy procedure for Alma Aden Dear Dr. Marcelo This procedure was performed on January. My impressions and recommendations are as follows: Impressions : - LA Grade B erosive esophagitis with no bleeding. Biopsied. - Gastroparesis. - Chronic gastritis. Biopsied. - Chronic duodenitis. Biopsied. Recommendations : - Discharge patient to home. - Resume previous diet. - Continue present medications. - Await pathology results. -Pantoprazole 40 mg p.o. twice daily x 8 weeks and then pantoprazole once a day x 4 weeks My findings are described in the full procedure note, which is enclosed. If I can be of further assistance, please feel free to contact me at . Sincerely, Hammad Friend, 01/16/2025 7:24:12 AM This report has been signed electronically.
--- NOTE | 2025-01-16 07:25 | OP.EGD_ITS ---
Patient Name: Alma Aden Procedure Date: 01/16/2025 6:14 AM Date of : 1980 Age: 44 Procedure: Upper GI endoscopy Indications: Epigastric abdominal pain, Dyspepsia, Indigestion, Esophageal reflux Providers: Hammad Loaiza DO Referring MD: Wyatt Marcelo MD Medicines: Monitored Anesthesia Care Patient Profile: This is a 44 year old female. Refer to note in patient chart for documentation of history and physical. Patient has symptoms of chronic dyspepsia and chronic heartburn. Complications: No immediate complications. Procedure: Pre-Anesthesia Assessment: - Prior to the procedure, a History and Physical was performed, and patient medications and allergies were reviewed. The patient is competent. The risks and benefits of the procedure and the sedation options and risks were discussed with the patient. All questions were answered and informed consent was obtained. Patient identification and proposed procedure were verified by the physician in the pre-procedure area. Mental Status Examination: alert and oriented. Airway Examination: normal oropharyngeal airway and neck mobility. Respiratory Examination: clear to auscultation. CV Examination: normal. Prophylactic Antibiotics: The patient does not require prophylactic antibiotics. Prior Anticoagulants: The patient has taken no anticoagulant or antiplatelet agents except for NSAID medication. ASA Grade Assessment: II - A patient with mild systemic disease. After reviewing the risks and benefits, the patient was deemed in satisfactory condition to undergo the procedure. The anesthesia plan was to use monitored anesthesia care (MAC). Immediately prior to administration of medications, the patient was re-assessed for adequacy to receive sedatives. The heart rate, respiratory rate, oxygen saturations, blood pressure, adequacy of pulmonary ventilation, and response to care were monitored throughout the procedure. The physical status of the patient was re-assessed after the procedure. After obtaining informed consent, the endoscope was passed under direct vision. Throughout the procedure, the patient's blood pressure, pulse, and oxygen saturations were monitored continuously. The Endoscope was introduced through the mouth, and advanced to the third part of the duodenum. Small bowel enteroscopy was deemed necessary. The upper GI endoscopy was accomplished without difficulty. The patient tolerated the procedure well. Scope In: 7:06:26 AM Scope Out: 7:11:14 AM Total Procedure Duration Time 0 hours 4 minutes 48 seconds Findings: LA Grade B (one or more mucosal breaks greater than 5 mm, not extending between the tops of two mucosal folds) esophagitis with no bleeding was found. Biopsies were taken with a cold forceps for histology. Verification of patient identification for the specimen was done. Estimated blood loss was minimal. Suspect gastroparesis due to absence of peristalsis. Patchy moderate inflammation characterized by erosions and erythema was found in the gastric body and in the gastric antrum. Biopsies were taken with a cold forceps for histology. Verification of patient identification for the specimen was done. Biopsies were taken with a cold forceps for Helicobacter pylori testing. Verification of patient identification for the specimen was done. Estimated blood loss was minimal. Patchy moderate inflammation characterized by congestion (edema), erosions and erythema was found in the duodenal bulb, in the first portion of the duodenum, in the second portion of the duodenum and in the third portion of the duodenum. Biopsies were taken with a cold forceps for histology. Verification of patient identification for the specimen was done. Estimated blood loss was minimal. Impression: - LA Grade B erosive esophagitis with no bleeding. Biopsied. - Gastroparesis. - Chronic gastritis. Biopsied. - Chronic duodenitis. Biopsied. Recommendation: - Discharge patient to home. - Resume previous diet. - Continue present medications. - Await pathology results. -Pantoprazole 40 mg p.o. twice daily x 8 weeks and then pantoprazole once a day x 4 weeks Procedure Code(s): --- Professional --- 19582, Small intestinal endoscopy, enteroscopy beyond second portion of duodenum, not including ileum; with biopsy, single or multiple CPT copyright 2021 [employer]. All rights reserved. The codes documented in this report are preliminary and upon garden equipment mechanic review may be revised to meet current compliance requirements. Hammad Loaiza DO 01/16/2025 7:24:12 AM This report has been signed electronically. Number of Addenda: 0 Note Initiated On: 01/16/2025 6:14 AM
--- NOTE | 2025-01-16 07:25 | OP.CCLET_ITS ---
01/16/2025 Wyatt Marcelo MD [address] [place] [address] [place] [address] Re : Upper GI endoscopy procedure for Alma Aden Dear Dr. Marcelo This procedure was performed on January. My impressions and recommendations are as follows: Impressions : - LA Grade B erosive esophagitis with no bleeding. Biopsied. - Gastroparesis. - Chronic gastritis. Biopsied. - Chronic duodenitis. Biopsied. Recommendations : - Discharge patient to home. - Resume previous diet. - Continue present medications. - Await pathology results. -Pantoprazole 40 mg p.o. twice daily x 8 weeks and then pantoprazole once a day x 4 weeks My findings are described in the full procedure note, which is enclosed. If I can be of further assistance, please feel free to contact me at . Sincerely, Hammad Friend, 01/16/2025 7:24:12 AM This report has been signed electronically.
--- NOTE | 2025-01-16 07:25 | OP.EGD_ITS ---
Patient Name: Alma Aden Procedure Date: 01/16/2025 6:14 AM Date of : 1980 Age: 44 Procedure: Upper GI endoscopy Indications: Epigastric abdominal pain, Dyspepsia, Indigestion, Esophageal reflux Providers: Hammad Loaiza DO Referring MD: Wyatt Marcelo MD Medicines: Monitored Anesthesia Care Patient Profile: This is a 44 year old female. Refer to note in patient chart for documentation of history and physical. Patient has symptoms of chronic dyspepsia and chronic heartburn. Complications: No immediate complications. Procedure: Pre-Anesthesia Assessment: - Prior to the procedure, a History and Physical was performed, and patient medications and allergies were reviewed. The patient is competent. The risks and benefits of the procedure and the sedation options and risks were discussed with the patient. All questions were answered and informed consent was obtained. Patient identification and proposed procedure were verified by the physician in the pre-procedure area. Mental Status Examination: alert and oriented. Airway Examination: normal oropharyngeal airway and neck mobility. Respiratory Examination: clear to auscultation. CV Examination: normal. Prophylactic Antibiotics: The patient does not require prophylactic antibiotics. Prior Anticoagulants: The patient has taken no anticoagulant or antiplatelet agents except for NSAID medication. ASA Grade Assessment: II - A patient with mild systemic disease. After reviewing the risks and benefits, the patient was deemed in satisfactory condition to undergo the procedure. The anesthesia plan was to use monitored anesthesia care (MAC). Immediately prior to administration of medications, the patient was re-assessed for adequacy to receive sedatives. The heart rate, respiratory rate, oxygen saturations, blood pressure, adequacy of pulmonary ventilation, and response to care were monitored throughout the procedure. The physical status of the patient was re-assessed after the procedure. After obtaining informed consent, the endoscope was passed under direct vision. Throughout the procedure, the patient's blood pressure, pulse, and oxygen saturations were monitored continuously. The Endoscope was introduced through the mouth, and advanced to the third part of the duodenum. Small bowel enteroscopy was deemed necessary. The upper GI endoscopy was accomplished without difficulty. The patient tolerated the procedure well. Scope In: 7:06:26 AM Scope Out: 7:11:14 AM Total Procedure Duration Time 0 hours 4 minutes 48 seconds Findings: LA Grade B (one or more mucosal breaks greater than 5 mm, not extending between the tops of two mucosal folds) esophagitis with no bleeding was found. Biopsies were taken with a cold forceps for histology. Verification of patient identification for the specimen was done. Estimated blood loss was minimal. Suspect gastroparesis due to absence of peristalsis. Patchy moderate inflammation characterized by erosions and erythema was found in the gastric body and in the gastric antrum. Biopsies were taken with a cold forceps for histology. Verification of patient identification for the specimen was done. Biopsies were taken with a cold forceps for Helicobacter pylori testing. Verification of patient identification for the specimen was done. Estimated blood loss was minimal. Patchy moderate inflammation characterized by congestion (edema), erosions and erythema was found in the duodenal bulb, in the first portion of the duodenum, in the second portion of the duodenum and in the third portion of the duodenum. Biopsies were taken with a cold forceps for histology. Verification of patient identification for the specimen was done. Estimated blood loss was minimal. Impression: - LA Grade B erosive esophagitis with no bleeding. Biopsied. - Gastroparesis. - Chronic gastritis. Biopsied. - Chronic duodenitis. Biopsied. Recommendation: - Discharge patient to home. - Resume previous diet. - Continue present medications. - Await pathology results. -Pantoprazole 40 mg p.o. twice daily x 8 weeks and then pantoprazole once a day x 4 weeks Procedure Code(s): --- Professional --- 26198, Small intestinal endoscopy, enteroscopy beyond second portion of duodenum, not including ileum; with biopsy, single or multiple CPT copyright 2021 [employer]. All rights reserved. The codes documented in this report are preliminary and upon hospital admissions officer review may be revised to meet current compliance requirements. Hammad Loaiza DO 01/16/2025 7:24:12 AM This report has been signed electronically. Number of Addenda: 0 Note Initiated On: 01/16/2025 6:14 AM
--- NOTE | 2025-01-16 07:46 | POSTOPAN2_ITS ---
Anesthesia Postop Eval I Sum Postop Eval Completion status Anesthesia document: Postop Eval 1 completed: Yes Anesthesia Postop Eval I Summary Anesthesia Postop Eval I Summary: Anesthesia Postop Eval I: Assessment Summary Airway patent Yes 01/16/25 07:20 RN INTERNAL MEDICINE.MDOT Spontaneous unlabored Yes 01/16/25 07:20 RN INTERNAL MEDICINE.MDOT respirations Mental status Awake,Calm 01/16/25 07:20 RN INTERNAL MEDICINE.MDOT nausea No 01/16/25 07:20 RN INTERNAL MEDICINE.MDOT Vomiting No 01/16/25 07:20 RN INTERNAL MEDICINE.MDOT Anesthesia Postop Eval I: Fluid Summary Crystalloid volume administer 100 01/16/25 07:20 RN INTERNAL MEDICINE.MDOT (ml) Colloids volume administered ( ml) Blood Product volume administered (ml) Total IV fluid infused 100 01/16/25 07:20 RN INTERNAL MEDICINE.MDOT Anesthesia Postop Eval I: Summary Notes Anesthesia Complication No 01/16/25 07:20 RN INTERNAL MEDICINE.MDOT Anesthesia Complication Comment: Post-operative progress note Anesthesia: Postop Eval II Evaluation Mental status: Awake and Calm Pain Level: 1 nausea: No Vomiting: No Complications Anesthesia Complication: No
--- NOTE | 2025-01-16 07:46 | POSTOPAN2_ITS ---
Anesthesia Postop Eval I Sum Postop Eval Completion status Anesthesia document: Postop Eval 1 completed: Yes Anesthesia Postop Eval I Summary Anesthesia Postop Eval I Summary: Anesthesia Postop Eval I: Assessment Summary Airway patent Yes 01/16/25 07:20 SPRING UPHOLSTERER.MDOT Spontaneous unlabored Yes 01/16/25 07:20 SPRING UPHOLSTERER.MDOT respirations Mental status Awake,Calm 01/16/25 07:20 SPRING UPHOLSTERER.MDOT nausea No 01/16/25 07:20 SPRING UPHOLSTERER.MDOT Vomiting No 01/16/25 07:20 SPRING UPHOLSTERER.MDOT Anesthesia Postop Eval I: Fluid Summary Crystalloid volume administer 100 01/16/25 07:20 SPRING UPHOLSTERER.MDOT (ml) Colloids volume administered ( ml) Blood Product volume administered (ml) Total IV fluid infused 100 01/16/25 07:20 SPRING UPHOLSTERER.MDOT Anesthesia Postop Eval I: Summary Notes Anesthesia Complication No 01/16/25 07:20 SPRING UPHOLSTERER.MDOT Anesthesia Complication Comment: Post-operative progress note Anesthesia: Postop Eval II Evaluation Mental status: Awake and Calm Pain Level: 1 nausea: No Vomiting: No Complications Anesthesia Complication: No
--- NOTE | 2025-01-16 07:46 | PCM.POSTANE2 ---
Anesthesia Postop Eval I Sum Postop Eval Completion status Anesthesia document: Postop Eval 1 completed: Yes Anesthesia Postop Eval I Summary Anesthesia Postop Eval I Summary: Anesthesia Postop Eval I: Assessment Summary Airway patent Yes 01/16/25 07:20 LABORER TREE TAPPING.MDOT Spontaneous unlabored Yes 01/16/25 07:20 LABORER TREE TAPPING.MDOT respirations Mental status Awake,Calm 01/16/25 07:20 LABORER TREE TAPPING.MDOT nausea No 01/16/25 07:20 LABORER TREE TAPPING.MDOT Vomiting No 01/16/25 07:20 LABORER TREE TAPPING.MDOT Anesthesia Postop Eval I: Fluid Summary Crystalloid volume administer 100 01/16/25 07:20 LABORER TREE TAPPING.MDOT (ml) Colloids volume administered ( ml) Blood Product volume administered (ml) Total IV fluid infused 100 01/16/25 07:20 LABORER TREE TAPPING.MDOT Anesthesia Postop Eval I: Summary Notes Anesthesia Complication No 01/16/25 07:20 LABORER TREE TAPPING.MDOT Anesthesia Complication Comment: Post-operative progress note Anesthesia: Postop Eval II Evaluation Mental status: Awake and Calm Pain Level: 1 nausea: No Vomiting: No Complications Anesthesia Complication: No
--- NOTE | 2025-01-16 07:46 | PCM.POSTANE2 ---
Anesthesia Postop Eval I Sum Postop Eval Completion status Anesthesia document: Postop Eval 1 completed: Yes Anesthesia Postop Eval I Summary Anesthesia Postop Eval I Summary: Anesthesia Postop Eval I: Assessment Summary Airway patent Yes 01/16/25 07:20 DAIRY HAND.MDOT Spontaneous unlabored Yes 01/16/25 07:20 DAIRY HAND.MDOT respirations Mental status Awake,Calm 01/16/25 07:20 DAIRY HAND.MDOT nausea No 01/16/25 07:20 DAIRY HAND.MDOT Vomiting No 01/16/25 07:20 DAIRY HAND.MDOT Anesthesia Postop Eval I: Fluid Summary Crystalloid volume administer 100 01/16/25 07:20 DAIRY HAND.MDOT (ml) Colloids volume administered ( ml) Blood Product volume administered (ml) Total IV fluid infused 100 01/16/25 07:20 DAIRY HAND.MDOT Anesthesia Postop Eval I: Summary Notes Anesthesia Complication No 01/16/25 07:20 DAIRY HAND.MDOT Anesthesia Complication Comment: Post-operative progress note Anesthesia: Postop Eval II Evaluation Mental status: Awake and Calm Pain Level: 1 nausea: No Vomiting: No Complications Anesthesia Complication: No
== END 2025-01-16 07:55 | disposition home or self-care (01) ==
LOC: EN 05:26 → AC 05:28
PROVIDERS: PCP Internal Medicine; Referring Provider Internal Medicine; Visit Provider Internal Medicine Gastroenterology
PROC: 0DJ08ZZ Inspection of Upper Intestinal Tract, Via Natural or Artificial Opening Endoscopic (ICD-10-PCS; CPT 43235; principal; 2025-01-16 06:25)
DX: K26.9 Duodenal ulcer, unspecified as acute or chronic, without hemorrhage or perforation (principal); E11.43 Type 2 diabetes mellitus with diabetic autonomic (poly)neuropathy; I10 Essential (primary) hypertension; K59.00 Constipation, unspecified; K31.84 Gastroparesis; E78.00 Pure hypercholesterolemia, unspecified; K29.50 Unspecified chronic gastritis without bleeding; K21.00 Gastro-esophageal reflux disease with esophagitis, without bleeding; K29.80 Duodenitis without bleeding; K62.5 Hemorrhage of anus and rectum; Z79.899 Other long term (current) drug therapy; Z79.890 Hormone replacement therapy; K22.10 Ulcer of esophagus without bleeding; Z86.0100 Personal history of colon polyps, unspecified; E07.9 Disorder of thyroid, unspecified
CPT/HCPCS: 43239; 88305; 88342

== ENCOUNTER → 2025-01-21 | Outpatient (CLI) | payer OTHER, SELFPAY ==
--- NOTE | 2025-01-21 16:28 | RAD_ITS ---
PROCEDURE: FOOT MIN 3 VIEWS 01/21/2025 REASON FOR EXAM: PAIN IN HEEL X 2 WEEKS TECHNIQUE: FOOT MIN 3 VIEWS COMPARISON: 09/08/2023 FINDINGS: TECHNIQUE: X-ray foot AP, oblique and lateral views. FINDINGS: Alignment is normal without evidence of acute displaced fracture or dislocation seen. Metatarsophalangeal and interphalangeal joints appear normal. No sclerotic or lytic bone lesion noted. Soft tissues appear normal. RAD/Foot min 3 Views IMPRESSION: No acute abnormality seen. No new acute findings. Reading [facility] [address]
== END | disposition home or self-care (01) ==
LOC: MTRAD 16:28
PROVIDERS: PCP Internal Medicine; Referring Provider Nurse Practitioner Family; Visit Provider Nurse Practitioner Family
DX: M79.672 Pain in left foot (principal)
CPT/HCPCS: 73630

== ENCOUNTER → 2025-01-28 | Outpatient (CLI) | payer OTHER, SELFPAY ==
[2025-01-28 17:53] LABS: Hematocrit 39.6 % (37-47); Hemoglobin 12.9 g/dL (12.0-15.0); Immature Granulocytes Count 0.070 X10^3/uL (0.0-0.0); Mean Corp Hgb Conc 32.6 g/dL (32-36); Mean Corpuscular Volume 95.4 fL (81-99); Mean Platelet Vol. 9.5 fl (6.2-12.0); NRBC Flagged by Analyzer 0 % (0-5); Platelet Count 407 K/mm3 (150-450); RBC Distribution Width CV 13.5 % (11.6-14.6); RBC Distribution Width SD 47.7 fl (35.1-43.9); Red Blood Count 4.15 M/mm3 (4.2-5.4); White Blood Count 13.8 K/mm3 (4.4-11.0)
[2025-01-28 18:24] LABS: PTHIN 151 pg/mL (11-61)
[2025-01-28 18:43] LABS: AST(SGOT) 17 U/L (<=31); Alanine Aminotransfer ALT/SGPT 16 U/L (<=34); Albumin, Serum 4.4 g/dL (3.5-5.0); Alkaline Phosphatase 65 U/L (35-104); Bilirubin, Direct 0.18 mg/dL (0.00-0.30); Globulin 3.0 g/dL (2.2-4.2); Vitamin D,25 Hydroxy 35.0 ng/mL (30-100)
[2025-01-28 19:01] LABS: CRP 9.59 mg/L (0.0-3.0)
[2025-01-30 17:50] LABS: Calcium 10.2 mg/dL (7.6-11.0)
== END | disposition home or self-care (01) ==
LOC: MTLAB 15:07
PROVIDERS: Internal Medicine Endocrinology, Diabetes & Metabolism; PCP Internal Medicine; Referring Provider Internal Medicine Rheumatology; Visit Provider Internal Medicine Rheumatology
DX: M06.09 Rheumatoid arthritis without rheumatoid factor, multiple sites (principal); E11.9 Type 2 diabetes mellitus without complications; Z79.899 Other long term (current) drug therapy; E03.8 Other specified hypothyroidism; E21.3 Hyperparathyroidism, unspecified; E06.3 Autoimmune thyroiditis
CPT/HCPCS: 36415; 80076; 82306; 82310; 82565; 83970; 85025; 85652; 86140

== ENCOUNTER → 2025-02-01 | Outpatient (CLI) | payer OTHER, SELFPAY ==
--- OUTSIDE RECORDS SUMMARY | 2025-02-01 10:53 | XMS RPT_ITS | CCD ---
Author Organization [facility] Care Team Providers Care Residential Property Consultant Name Role Phone ANTONIO, CHRISTOPHER R Unavailable [...] Provider UnavailDr. Cali Sorto Attending Provider Nisa CORK SLABS SAWYER, CORK SLABS SAWYER-C Dirk Attending Provider [phone] Dr. Wyatt Marcelo Attending Provider [phone] Candice Lopez Attending Provider Unavailable Ivonne CORK SLABS SAWYER, CORK SLABS SAWYER-C Laine Attending Provider [phone] Dr. Wyatt Marcelo Primary Care Provider [phone]) Dr. Wyatt Marcelo Referring Provider [phone] Dr. Juan R Arredondo Attending Provider Dr. Cali Lou Referring Provider Dr. Wyatt Marcelo Primary Care Provider [phone]) Dr. Wyatt Marcelo Referring Provider [phone] Dr. Wyatt Marcelo Primary Care Provider [phone]) Dr. Wyatt Marcelo Referring Provider [phone] Nisa CORK SLABS SAWYER, CORK SLABS SAWYER-C Dirk Attending Provider [phone] Dr. Geovanni Mendiola [...] [phone] STEVEN BOLES MD Attending Provider STEVEN BOLES MD Referring Provider Dr. Wyatt [...] Davian CAMILO, Dr. Schneider Referring Provider [phone] King LESLEE, Dr. Leiva Attending Provider Fadia GRIMES, Dr. Cueva Attending Provider Fadia GRIMES, Dr. Cueva Other Provider [phone] Ungerer CORK SLABS SAWYER-C, Kati Attending Provider [phone] Ungerer CORK SLABS SAWYER-C, Kati Referring Provider [phone] Estrellita Coleman Referring Unavailable Estrellita Coleman Attending Unavailable Oleghe, Efewongbe Primary Care Unavailable Oleghe, Efewongbe Primary Care Unavailable ESTEVAN FERNANDEZ Attending Unavailable STEVEN BOLES Referring Unavailable STEVEN BOLES Attending Unavailable Oleghe, Efewongbe Primary Care Unavailable Cali Lou Attending Unavailable Oleghe, Efewongbe Primary Care Unavailable Estrellita Coleman Referring Unavailable Estrellita Coleman Attending Unavailable Oleghe, Efewongbe Primary Care Unavailable Oleghe, Efewongbe Referring Unavailable Oleghe, Efewongbe Attending Unavailable Oleghe, Efewongbe Primary Care Unavailable Nimco Gonzalez Attending Unavailable Oleghe, Efewongbe Primary Care Unavailable Oleghe, Efewongbe Referring Unavailable Oleghe, Efewongbe Primary Care Unavailable UngereKati thomson Attending Unavailable Oleghe, Efewongbe Referring Unavailable Oleghe, Efewongbe Attending Unavailable Oleghe, Efewongbe Primary Care Unavailable Oleghe, Efewongbe Referring Unavailable Hammad Loaiza Attending Unavailable Oleghe, Efewongbe Primary Care Unavailable Oleghe, Efewongbe Referring Unavailable Oleghe, Efewongbe Primary Care Unavailable UngererKati Referring Unavailable Ungerer, Kati Attending Unavailable Lisa, Nimco Attending Unavailable Lisa, Nimco Referring Unavailable Oleghe, Efewongbe Primary Care Unavailable GT BOLESN Referring Unavailable STEVEN BOLES Attending Unavailable Oleghe, Efewongbe Primary Care Unavailable Assessment, Health Risk Referring Unavaila ble Assessment, Health Risk Attending Unavaila ble Oleghe, Efewongbe Primary Care Unavailable Oleghe, Efewongbe Referring Unavailable Oleghe, Efewongbe Primary Care Unavailable Corie Tan Attending Unavailable Liliana Bangura Attending Unavailable Oleghe, Efewongbe Referring Unavailable Oleghe, Efewongbe Primary Care Unavailable Estrellita Coleman Attending Unavailable Oleghe, Efewongbe Referring Unavailable Oleghe, Efewongbe Primary Care Unavailable Lisa, Nimco Referring Unavailable Lisa, Nimco Attending Unavailable Oleghe, Efewongbe Primary Care Unavailable Lisa Nimco Attending Unavailable Lisa, Nimco Referring Unavailable Oleghe, Efewongbe Primary Care Unavailable GT BOLESN Referring Unavailable BISTEVEN REYES Attending Unavailable Oleghe, Efewongbe Primary Care Unavailable Irma Delaney Attending Unavailable Oleghe, Efewongbe Referring Unavailable Oleghe, Efewongbe Primary Care Unavailable Cali Lou Attending Unavailable Oleghe, Efewongbe Referring Unavailable Oleghe, Efewongbe Attending Unavailable Oleghe, Efewongbe Primary Care Unavailable Oleghe, Efewongbe Referring Unavailable Oleghe, Efewongbe Attending Unavailable Oleghe, Efewongbe Primary Care Unavailable Karl Lopez Attending Unavailable Oleghe, Efewongbe Primary Care Unavailable Oleghe, Efewongbe Referring Unavailable Friend, Hammad Attending Unavailable Friend, Hammad Consulting Unavailable Oleghe, Efewongbe Primary Care Unavailable Oleghe, Efewongbe Referring Unavailable Lisa, Nimco Referring Unavailable Lisa, Nimco Attending Unavailable Oleghe, Efewongbe Primary Care Unavailable Allergies Allergy Classification Reported Allergen(s) Allergy Type Date of Onset Reaction(s) Facility (20 sources) escitalopram; Translations: [ESCITALOPRAM] Drug Allergy 2 Other [facility] Repository Comment on above: HEADACHE (1 source) penicillin; Translations: [PENICILLIN] Drug Allergy [facility] Repository (1 source) Penicillins; Translations: [PENICILLINS] Propensity to adverse reactions (disorder) [facility] Repository (20 sources) Latex Allergy to substance 2 Rash [facility] (20 sources) Penicillin G Drug Allergy 2 Other [facility] (12 sources) SUMAtriptan Drug Allergy 3 headache [facility] (1 source) Latex Drug allergy (disorder) [facility] Rep[facility] (1 source) Penicillin Drug Allergy 5 [facility] Rep[facility] (1 source) SUMAtriptan Drug Allergy 5 [facility] Repository Medications Current Medications Medication [...] .Route October 10, 2023 12:00am As directed mecobalamin 1 mg chewable tablet (7 sources) Start: 11-14-2023 take 1 tablet by mouth once daily Mecobalamin (Vitamin B12) 1,000 mcg tablet,chewable Active 1000 ug PO DAILY November 14, 2023 12:00am melatonin 3 mg oral capsule (7 sources) Start: 11-14-2023 take 1 capsule by mouth at bedtime Melatonin 3 mg capsule Active 3 mg PO BEDTIME November 14, 2023 12:00am Methotrexate 2 mg/mL solution (7 sources) Start: 08-31-2024 Methotrexate 2 mg/mL solution Active 2.5 mg PO SA August 31, 2024 1:00am Start: 08-31-2024 take 2.5 mg by mouth every week Methotrexate 2 mg/mL solution Active 2.5 mg PO EVERY WEEK August 31, 2024 1:00am pantoprazole 40 mg delayed release oral tablet (20 sources) Proton Pump Inhibitor Start: 01-16-2025 take 1 tablet by mouth twice daily Pantoprazole 40 mg tablet,delayed release (DR/EC) Active 40 mg PO TWICE A DAY 120 60 2 January 16, 2025 12:00am Start: 09-14-2017 End: 04-05-2018 take 1 tablet by mouth once daily in the morning Pantoprazole (Protonix) 40 mg tablet,delayed release (DR/EC) Discontinued 40 mg PO EVERY MORNING September 14, 2017 1:00am April 05, 2018 2:21pm predniSONE 10 mg oral tablet (20 sources) Start: 01-21-2025 take 6 tablets by mouth once daily Prednisone 10 mg tablet Active 10 mg PO As Directed 48 0 January 21, 2025 12:00am see taper instructions Days 1-4 take 6 tabs daily days 5-8 take 4 tabs daily, days 9-12 take 2 tabs daily Start: 04-25-2024 take 1 tablet by kevin once daily as needed for arthritis Prednisone 10 mg tablet Active 10 mg PO DAILY as needed for Arthritis 100 2 April 25, 2024 5:25pm Start: 02-06-2024 End: 03-20-2024 Prednisone 5 mg tablets,dose pack Discontinued 0 PO per package directions 21 0 February 06, 2024 12:00am March 20, 2024 9:37am PO PER PKG DIR Start: 07-01-2022 End: 04-25-2024 take 4 tablets by mouth once daily as needed for arthritis Prednisone 10 mg tablet Discontinued 10 mg PO DAILY as needed for Arthritis 100 2 June 05, 2023 12:00pm April 25, 2024 5:25pm Take 4 tablets for 3 days; Take 3 tablets for 3 days; Take 2 tablets for 3 days; Take 1 tablet for 3 days Take with food or milk Start: 05-21-2021 End: 08-19-2021 take 1 tablet by mouth once daily Prednisone 10 mg tablet Discontinued 10 mg PO DAILY 4 May 21, 2021 12:00am August 19, 2021 12:42pm Start: 09-16-2019 End: 11-05-2019 Prednisone Discontinued 0 PO per package directions September 16, 2019 12:13pm November 05, 2019 8:50am PO PER PKG DIR Start: 09-16-2019 End: 11-05-2019 Prednisone 10 mg tablets,dos e pack Discontinued 0 PO per package directions 48 September 16, 2019 1:00am November 05, 2019 [...] mg tablet Discontinued 10 mg PO .COMPLEX 30 July 20, 2019 1:00am September 16, 2019 12:14pm 10 mg PO Take 4 pills for 3 days, take 3 pills for 3 days, take 2 pills for 3 days, take 1 pill for 3 days,; 24 hr upadacitinib 15 mg extended release oral tablet (7 sources) Start: 11-14-2023 take 1 tablet by [...] 25, 2018 1:00am June 26, 2018 1:09am Other specified diseases of gallbladder Start: 06-21-2018 End: 06-26-2018 take 1 tablet by mouth every four hours as needed Oxycodone-Acetaminophen Discontinued 1 - 2 TABLET PO EVERY 4 HOURS NEEDED 13 12June 21, 2018 1:00am June 26, 2018 1:09am [id number] 200 actuat albuterol 0.09 mg/actuat metered dose inhaler (20 sources) beta2-Adrenergic Agonist Start: 09-01-2022 End: 12-05-2022 Albuterol Sulfate (Proair Hfa) 90 mcg/actuation HFA aerosol inhaler Discontinued 1 - 2 NMA INHALATION EVERY 6 HOURS as needed for shortness of breath or wheezing 8.5 1 September 01, 2022 1:00am December 05, 2022 8:14am Start: 09-01-2022 End: 12-05-2022 take 1 puff(s) by inhalation every six hours Albuterol Sulfate (Proair Hfa) 90 mcg/actuation HFA aerosol inhaler Discontinued 1 - 2 PUFF INHALATION EVERY 6 HOURS 8.5 September 01, 2022 1:00am December 05, 2022 8:14am Start: 09-16-2019 End: 09-15-2020 Albuterol Sulfate 90 mcg/act uation HFA aerosol inhaler Discontinued 2 NMA INHALATION EVERY 6 HOURS as needed for shortness of breath or wheezing 8.5 0 September 16, 2019 1:00am September 15, 2020 10:04am Start: 09-16-2019 End: 09-15-2020 take 1 puff(s) by inhalation every six hours Albuterol Sulfate Discontinued 2 PUFF INHALATION EVERY 6 HOURS 8.5 September 16, 2019 1:00am September 15, 2020 10:04am ALPRAZolam 0.25 mg oral tablet (20 sources) Benzodiazepine Start: 09-14-2017 End: 04-25-2024 take 1 tablet by mouth once daily as needed for anxiety Alprazolam (Xanax) 0.25 mg tablet Discontinued 0.25 mg PO DAILY NEEDED as needed for Anxiety 20 0 September 01, 2022 2:26pm September 29, 2022 9:25am Generalized anxiety disorder amLODIPine 5 mg oral tablet (20 sources) Dihydropyridine Calcium Channel Oswadlo Start: 12-19-2019 End: 10-08-2021 take 1 tablet by mouth once daily Amlodipine 5 mg tablet Discontinued 5 mg PO DAILY 90 3 February 20, 2020 2:19pm February 15, 2021 1:15pm azithromycin 250 mg oral tablet (20 sources) Macrolide Antimicrobial Start: 09-12-2019 End: 12-16-2019 Azithromycin 250 mg tablet Discontinued 0 PO .COMPLEX 6 0 September 12, 2019 1:00am December 16, 2019 9:32am Take two tablets by mouth on day one then one tablet by mouth on days 2-5 Start: 07-18-2018 End: 02-21-2019 Azithromycin 250 mg tablet D iscontinued 250 mg PO daily 6 0 July 18, 2018 1:00am February 21, 2019 11:59am 2 tablets today, then 1 tablet daily on days 2 through 5 benzonatate 100 mg oral capsule (20 sources) Non-narcotic Antitussive Start: 02-06-2024 End: 04-25-2024 Benzonatate 100 mg capsule Discontinued 100 mg PO 2 to 3 times per day as needed for cough 60 0 February 06, 2024 12:00am April 25, 2024 5:01pm Start: 09-05-2019 End: 12-16-2019 take 1 capsule by mouth three times daily as needed for cough Benzonatate (Tessalon Perles) 100 mg capsule Discontinued 100 mg PO THREE TIMES A DAY as needed for cough 30 0 September 05, 2019 1:00am December 16, 2019 9:32am bisacodyl 5 mg delayed release oral tablet (20 sources) Stimulant Laxative Start: 05-06-2021 End: 07-01-2022 take 1 tablet by mouth once Bisacodyl 5 mg tablet Discontinued 5 mg PO ONCE 4 0 May 06, 2021 12:00am July 01, 2022 3:57pm Take as directed for bowel prep busPIRone hydrochloride 5 mg oral tablet (20 sources) Start: 03-31-2020 End: 02-15-2021 take 1 tablet by mouth twice daily Buspirone 5 mg tablet Discontinued 5 mg PO TWICE A DAY 60 1 March 31, 2020 12:00am February 15, 2021 [...] and evening meal/dinner Start: 11-23-2021 End: 02-21-2022 take 1 capsule by mouth twice daily before lunch Carboxymethylcellulose-Citric (Plenity) 0.75 gram capsule Discontinued 3 NMA PO TWICE A DAY 540 November 23, 2021 9:19am February 20, 2022 [...] NMA PO TWICE A DAY 540 90 0 November 22, 2021 12:00am February 19, 2022 [...] evening meal/dinner cefuroxime 500 mg oral tablet (19 sources) Cephalosporin Antibacterial Start: 12-05-2022 End: 03-10-2023 take 1 tablet by mouth every twelve hours Cefuroxime Axetil 500 mg tablet Discontinued 500 mg PO Q12H 14 0 December 05, 2022 12:00am March 10, 2023 4:01pm cholecalciferol 0.05 mg oral capsule (20 sources) Vitamin D Start: 10-30-2017 End: 02-21-2019 take 1 capsule by mouth once daily Cholecalciferol (Vitamin D3) 2,000 unit capsule Discontinued 2000 U PO daily October 30, 2017 12:00am February 21, 2019 11:59am SUPPLEMENT clindamycin 300 mg oral capsule (20 sources) Lincosamide Antibacterial Start: 10-24-2020 End: 12-31-2020 take 1 capsule by mouth three times daily Clindamycin Hcl 300 mg capsule Discontinued 300 mg PO THREE TIMES A DAY 21 0 October 24, 2020 12:00am December 31, 2020 8:33am codeine phosphate 2 mg/ml / guaiFENesin 20 mg/ml oral solution (20 sources) Opioid Agonist Start: 09-05-2019 End: 03-31-2020 take 1 mL by mouth every six hours as needed for cough Codeine-Guaifenesin 10-100 mg/5 mL liquid Discontinued 5 mL PO EVERY 6 HOURS as needed for cough 120 0 September 05, 2019 1:00am March 31, 2020 1:22pm Start: 09-05-2019 End: 03-31-2020 take 1 mL by mouth every six hours Codeine-Guaifenesin Discontinued 5 ML PO EVERY 6 HOURS 120 September 05, 2019 1:00am March 31, 2020 1:22pm Compress.Stocking,Knee,Reg,L rg misc (7 sources) Start: 03-12-2019 End: 12-05-2022 Compress.Stocking,Knee,Reg,L rg misc Discontinued 0 .ROUTE .MEDSUPPLY 2 March 12, 2019 12:00am December 05, 2022 8:14am Venous insufficiency (chronic) (peripheral) wear daily for venous insufficiency 20-30 mmHg Start: 03-12-2019 End: 12-05-2022 Compress.Stocking,Knee,Reg,L rg misc Discontinued 0 .ROUTE .MEDSUPPLY 2 March 12, 2019 12:00am December 05, 2022 8:14am wear daily for venous insufficiency 20-30 mmHg cyclobenzaprine hydrochloride 5 mg oral tablet (13 sources) Muscle Relaxant Start: 04-26-2023 End: 11-14-2023 take 1 tablet by mouth twice daily as needed for pain Cyclobenzaprine 5 mg tablet Discontinued 5 mg PO TWICE A DAY as needed for pain 10 April 26, 2023 12:00am November 14, 2023 9:24am dexamethasone 6 mg oral tablet (20 sources) Corticosteroid Start: 02-10-2022 End: 07-01-2022 take 1 tablet by mouth once daily Dexamethasone (Decadron) 6 mg tablet Discontinued 6 mg PO DAILY 5 February 10, 2022 12:00am July 01, 2022 3:56pm doxycycline monohydrate 100 mg oral capsule (20 sources) Tetracycline-class Drug Start: 08-31-2024 End: 09-05-2024 take 1 capsule by mouth twice daily Doxycycline Monohydrate 100 mg capsule Discontinued 100 mg PO TWICE A DAY 10 5 0 August 31, 2024 1:00am September 04, 2024 1:00am September 05, 2024 1:09am Start: 02-06-2024 End: 03-20-2024 take 1 capsule by mouth twice daily Doxycycline Hyclate 100 mg capsule Discontinued 100 mg PO TWICE A DAY 14 0 February 06, 2024 12:00am March 20, 2024 9:37am Start: 10-12-2023 End: 10-22-2023 take 1 capsule by mouth twice daily Doxycycline Hyclate 100 mg capsule Discontinued 100 mg PO TWICE A DAY 20 10 0 October 12, 2023 12:00am October 21, 2023 12:00am October 12, 2023 5:16pm Acute sinusitis, unspecified Start: 09-01-2022 End: 10-19-2022 take 1 tablet by mouth twice daily Doxycycline Monohydrate 100 mg tablet Discontinued 100 mg PO TWICE A DAY 14 0 September 01, 2022 1:00am October 19, 2022 1:58pm Start: 05-24-2019 End: 07-20-2019 take 1 tablet by mouth twice daily Doxycycline Hyclate 100 mg tablet Discontinued 100 mg PO TWICE A DAY 14 0 May 24, 2019 1:00am July 20, 2019 2:55pm 0.5 ml dulaglutide 3 mg/ml auto-injector (20 sources) GLP-1 Receptor Agonist Start: 04-04-2022 End: 08-15-2022 Dulaglutide (Trulicity) 1.5 mg/0.5 mL pen injector Discontinued 1.5 mg SC EVERY WEEK 2 3 April 04, 2022 12:00am August 15, 2022 12:51pm Insulin resistance Metabolic syndrome and other insulin resistance Start: 11-26-2021 End: 04-04-2022 Dulaglutide (Trulicity) 0.75 mg/0.5 mL pen injector Discontinued 0.75 mg SC EVERY WEEK 2 3 November 26, 2021 12:00am April 04, 2022 11:02am DULoxetine 60 mg delayed release oral capsule (20 sources) Serotonin and Norepinephrine Reuptake Inhibitor Start: 10-03-2023 End: 09-05-2024 take 1 capsule by mouth once daily Duloxetine 30 mg capsule,delayed release(DR/EC) Discontinued 30 mg PO DAILY 90 1 March 07, 2024 8:55am September 05, 2024 4:10pm Start: 09-14-2017 End: 12-03-2024 take 1 capsule by mouth once daily Duloxetine (Cymbalta) 60 mg capsule,delayed release(DR/EC) Discontinued 60 mg PO daily 90 1 June 10, 2024 5:31pm December 03, 2024 2:32pm DEPRESSION 1 ml erenumab-aooe 70 mg/ml auto-injector (20 [...] capsule,delayed release(DR/EC) Discontinued 40 mg PO DAILY 90 3 March 12, 2019 9:15am June 17, 2019 [...] 05, 2018 12:00am February 21, 2019 11:59am ANEMIA folic acid 1 mg oral tablet (20 [...] mg tablet Discontinued 25 mg PO DAILY 90 November 22, 2021 9:06am November 04, 2022 [...] 1:58pm Insulin Syringe Needleless 1 mL syringe (7 sources) Start: 10-10-2023 End: 03-20-2024 Insulin Syringe Needleless 1 mL syringe Discontinued 0 .Route 20 October 10, 2023 12:00am March 20, 2024 9:38am As directed Start: 10-10-2023 End: 03-20-2024 Insulin Syringe Needleless 1 mL syringe Discontinued 0 .Route 20 October 10, 2023 12:00am March 20, 2024 9:38am As directed levothyroxine sodium 0.15 mg oral tablet (20 sources) l-Thyroxine Start: 11-14-2023 End: 01-14-2025 take 1 tablet by mouth every other week Levothyroxine 150 mcg tablet Discontinued 150 ug PO .5 days per week October 15, 2024 4:47pm January 14, 2025 2:39pm Start: 08-19-2021 End: 11-14-2023 take 1 tablet by mouth once daily Levothyroxine 150 mcg tablet Discontinued 150 ug PO DAILY August 15, 2022 12:51pm November 14, 2023 9:53am Start: 04-30-2018 End: 08-19-2021 take 1 tablet by mouth once daily Levothyroxine 75 mcg tablet Discontinued 75 ug PO DAILY January 12, 2021 11:16am August 19, 2021 12:59pm losartan potassium 100 mg oral tablet (20 sources) Angiotensin 2 Receptor Oswaldo Start: 03-10-2023 End: 10-14-2024 take 1 tablet by mouth once daily Losartan 100 mg tablet Discontinued 100 mg PO DAILY 90 March 27, 2023 4:12pm April 25, 2024 [...] 15, 2020 10:05am December 31, 2020 8:33am 24 hr metFORMIN hydrochloride 500 mg extended release oral tablet (5 sources) Biguanide Start: 11-29-2024 End: 01-14-2025 take 1 tablet by mouth twice daily Metformin (Glucophage Xr) 500 mg tablet extended release 24 hr Discontinued 500 mg PO TWICE A DAY 60 3 November 29, 2024 12:00am January 14, 2025 2:37pm methotrexate 25 mg/ml injectable solution (20 sources) [...] PKG DIR metroNIDAZOLE 500 mg oral tablet (19 sources) Nitroimidazole Antimicrobial Start: 12-05-2022 End: 03-10-2023 take 1 tablet by mouth three times daily Metronidazole 500 mg tablet Discontinued 500 mg PO THREE TIMES A DAY 21 December 05, 2022 12:00am March 10, 2023 4:02pm mupirocin 0.02 mg/mg topical ointment (20 sources) RNA Synthetase Inhibitor Antibacterial Start: 09-29-2022 End: 10-19-2022 Mupirocin 2 % ointment Discontinued 1 NMA TOPICAL NEEDED as needed for Rash 22 3 September 29, 2022 9:23am October 19, 2022 1:58pm Start: 10-26-2020 End: 10-19-2022 Mupirocin 2 % ointment Disco ntinued 1 NMA TOPICAL NEEDED as needed for Rash May 06, 2021 11:33am September 29, 2022 9:25am ondansetron 4 mg disintegrating oral tablet (12 sources) Serotonin-3 Receptor Antagonist Start: 06-11-2023 End: 10-03-2023 take 1 tablet by mouth every eight hours as needed for nausea Ondansetron 4 mg tablet,disintegrating Discontinued 4 mg PO EVERY 8 HOURS NEEDED as needed for Nausea 20 June 11, 2023 1:00am October 03, 2023 8:35am phentermine hydrochloride 30 mg oral capsule (20 sources) Sympathomimetic Amine Anorectic Start: 05-31-2021 End: 11-22-2021 take 1 capsule by mouth once daily 2 hour(s) after breakfast Phentermine 30 mg capsule Discontinued 30 mg PO DAILY 30 May 31, 2021 1:00am November 22, 2021 8:52am must administer 2 hours after breakfast BMI 50 polyethylene glycol 3350 37736 mg powder for oral solution (20 sources) Osmotic Laxative Start: 05-06-2021 End: 11-22-2021 take 17 g by mouth once daily Polyethylene Glycol 3350 17 gram/dose powder Discontinued 17 g PO DAILY 238 0 May 06, 2021 12:00am November 22, 2021 8:53am Take as directed for bowel prep. promethazine hydrochloride 25 mg oral tablet (20 sources) Phenothiazine Start: 03-29-2021 End: 08-19-2021 take 12.5-25 mg by mouth every six hours as needed for nausea Promethazine 25 mg tablet Discontinued 12.5 - 25 mg PO EVERY 6 HOURS as needed for nausea 30 0 March 29, 2021 12:00am August 19, 2021 12:42pm rimegepant 75 mg disintegrating oral tablet (20 sources) Start: 12-31-2020 End: 02-15-2021 take 1 tablet by mouth every other day as needed for headache Rimegepant (Nurtec Odt) 75 mg tablet,disintegrating Discontinued 0 .ROUTE .COMPLEX 24 2 December 31, 2020 9:32am February 15, 2021 12:58pm migraine headache Take one tablet po every other day; 1 tablet po daily as needed for headache can be taken on days a scheduled dose has not already been taken Semaglutide (3 sources) Start: 10-03-2023 End: 10-03-2023 Semaglutide Discontinued 0.25 MG SC EVERY WEEK 3 October 03, 2023 12:00am October 03, 2023 9:03am for 4 weeks Semaglutide (10 sources) Start: 10-03-2023 End: 10-03-2023 Semaglutide 0.25 mg or 0.5 mg (2 mg/3 mL) pen injector Discontinued 0.25 mg SC EVERY WEEK 3 4 October 03, 2023 9:00am October 03, 2023 9:43am for 4 weeks Start: 10-03-2023 End: 10-03-2023 Semaglutide 0.25 mg or 0.5 m g (2 mg/3 mL) pen injector Discontinued 0.25 mg SC EVERY WEEK 3 October 03, 2023 9:00am October 03, 2023 9:43am for 4 weeks Start: 10-03-2023 End: 10-03-2023 Semaglutide Discontinued 0.2 5 MG SC EVERY WEEK 3 October 03, 2023 9:00am October 03, 2023 9:43am for 4 weeks Semaglutide (Weight Loss) (10 sources) Start: 10-03-2023 End: 03-20-2024 Semaglutide (Weight Loss) (W egovy) 0.25 mg/0.5 mL pen injector Discontinued 0.25 mg SC EVERY WEEK 2 3 October 03, 2023 12:00am March 20, 2024 9:38am administer weeks 1 through 4 of therapy Start: 10-03-2023 End: 03-20-2024 Semaglutide (Weight Loss) [...] of therapy Semaglutide 0.25 mg or 0.5 m g (2 mg/3 mL) pen injector (7 sources) Start: 10-03-2023 End: 10-03-2023 Semaglutide 0.25 mg or 0.5 m g (2 mg/3 mL) pen injector Discontinued 0.25 mg SC EVERY WEEK 3 4 October 03, 2023 12:00am October 03, 2023 9:03am for 4 weeks Start: 10-03-2023 End: 10-03-2023 Semaglutide 0.25 mg or 0.5 m g (2 mg/3 mL) pen injector Discontinued 0.25 mg SC EVERY WEEK 3 October 03, 2023 12:00am October 03, 2023 9:03am for 4 weeks sucralfate 1000 mg oral tablet (20 sources) Aluminum Complex Start: 03-29-2021 End: 08-19-2021 take 1 tablet by mouth twice daily 1 hour(s) after mealtime Sucralfate (Carafate) 1 gram tablet Discontinued 1 g PO TWICE A DAY 60 0 March 29, 2021 12:00am August 19, 2021 12:42pm Take on empty stomach 1 hour before or 2 hours after meals Tirzepatide (Weight Loss) (13 sources) Start: 10-23-2024 End: 01-07-2025 Tirzepatide (Weight Loss) (Zepbound) 2.5 mg/0.5 mL pen injector Discontinued 2.5 mg SC EVERY WEEK 2 0 October 23, 2024 5:09pm January 07, 2025 11:29am Obstructive sleep apnea syndrome Diet-controlled type 2 diabetes mellitus Obstructive sleep apnea (adult) (pediatric) Type 2 diabetes mellitus without complications for 4 weeks Start: 10-23-2024 End: 01-07-2025 Tirzepatide (Weight Loss) (Z epbound) 2.5 mg/0.5 [...] 11, 2024 12:00am October 23, 2024 5:10pm Obstructive sleep apnea syndrome Diet-controlled type 2 diabetes mellitus Obstructive sleep apnea (adult) (pediatric) Type 2 diabetes mellitus without complications for 4 weeks Start: 10-11-2024 End: 10-23-2024 [...] mg PO ONCE as needed for MIGRAINES 48 2 September 20, 2022 3:22pm December 12, 2023 [...] g tablet Discontinued 100 mg PO ONCE 14 October 26, 2020 12:00am December 31, 2020 [...] 21, 2019 12:00pm Vitamin B Complex capsule (7 sources) Start: 09-14-2017 End: 02-21-2019 Vitamin B [...] diseases of gallbladder] 06-21-2018 Episodic Cardiac dysrhythmias (18 sources) Palpitations; Translations: [Palpitations] 03-10-2023 Episodic Deficiency and other anemia (20 sources) Anemia; Translations: [Anemia, unspecified] 02-21-2019 Episodic Diabetes mellitus without complication (14 sources) Type 2 diabetes mellitus controlled by diet; Translations: [Type 2 diabetes mellitus without complications] Onset: 5 10-11-2024 Chronic E Codes: Natural/environment (20 sources) Cat bite [...] bleeding; Translations: [UNS CHRONIC GASTRITIS W/] Onset: 7 Chronic Gastroduodenal ulcer (20 sources) Gastric ulcer, [...] Episodic Comment on above: D, iron, B12 Open wounds of extremities (7 sources) Laceration of finger; Translations: [Laceration without foreign body of unspecified finger without damage to nail, initial encounter] 01-26-2024 Episodic Osteoarthritis (20 sources) Arthritis; Translations: [Unspecified osteoarthritis, unspecified site] 02-21-2019 Chronic Other acquired deformities (7 sources) Lumbar spondylolisthesis; Translations: [Spondylolisthesis, lumbar region] 05-10-2024 Episodic Other acquired deformities (7 sources) Spondylolysis; Translations: [Spondylolysis, lumbar region] 05-10-2024 Episodic Other aftercare (2 sources) Other usp (current) drug therapy; Translations: [Other ad terminal makeup operator (current) drug therapy] Onset: Episodic Other bone disease and musculoskeletal deformities (20 sources) Segmental and somatic dysfunction; Translations: [Segmental and somatic dysfunction of cervical region] 12-21-2020 Episodic Other connective tissue disease (8 sources) Pain in calf; Translations: [Pain in left lower leg] 10-08-2021 Episodic Other connective tissue disease (2 sources) Pain in left lower leg; Translations: [Pain in limb] Episodic Other connective tissue disease (4 sources) Heel pain; Translations: [Pain in left foot] 01-21-2025 Episodic Other connective tissue disease (1 source) Pain in left foot; Translations: [Pain in left foot] Onset: Episodic Other endocrine disorders (20 sources) Primary hyperparathyroidism; Translations: [Primary hyperparathyroidism] 11-03-2022 Chronic Other endocrine disorders (8 sources) Primary hyperparathyroidism; Translations: [Primary hyperparathyroidism] Onset: 4 11-23-2022 Chronic Other endocrine disorders (7 sources) Hyperparathyroidism; Translations: [Hyperparathyroidism, unspecified] 01-07-2025 Chronic Other [...] limb] 12-16-2019 Chronic Other nervous system disorders (10 sources) Carpal tunnel syndrome of right wrist; [...] 10-19-2022 Chronic Comment on above: restarted [employer] pelaezt with Dr Galeana Other skin disorders (2 sources) Generalized hyperhidrosis; Translations: [Generalized hyperhidrosis] Episodic Other upper respiratory disease (20 sources) Seasonal allergy; Translations: [Other seasonal allergic rhinitis] 02-21-2019 Chronic Other upper respiratory disease (8 sources) Congestion of nasal sinus; Translations: [Nasal congestion] 05-22-2021 Episodic Other upper respiratory infections (10 sources) Sinusitis; Translations: [Chronic sinusitis, unspecified] 08-31-2024 Chronic Other upper respiratory infections (20 sources) Common cold; Translations: [Acute nasopharyngitis [common cold]] 05-22-2021 Episodic Residual codes; unclassified (20 sources) Obstructive sleep apnea syndrome; Translations: [Obstructive sleep apnea (adult) (pediatric)] 11-05-2019 Chronic Comment on above: AHI 102.8. On BiPAP 17/13 centimeters of water Rheumatoid arthritis and related disease (2 sources) Rheumatoid arthritis without rheumatoid factor, multiple sites; Translations: [Rheumatoid arthritis without rheumatoid factor, multiple sites] Onset: Chronic Spondylosis; intervertebral disc disorders; other back [...] [DIAPH HERNIA W/O OBST/GA] Onset: 02-06-2017 Episodic Diabetes mellitus without complication (20 sources) Prediabetes; Translations: [Prediabetes] Onset: 10-14-2024 08-15-2022 Episodic Other acquired deformities (1 source) Spondylolisthesis, lumbar region; Translations: [Spondylolisthesis, lumbar region] Onset: 06-25-2024 Episodic Other screening for suspected conditions (not mental disorders or infectious disease) (1 source) Encounter for screening mammogram for malignant neoplasm of breast; Translations: [Encounter for screening mammogram for malignant neoplasm of breast] Onset: 04-24-2024 Episodic Unclassified (1 source) ACUTE GASTRIC ULCER WITH Onset: 04-03-2017 Unclassified (20 sources) lesion removal from lip 06-21-2019 Results Test Name Value Interpretation Reference Range Facility L501.0895on 01-30-2025 Calcium [Mass/Vol] 10.2 mg/dL Normal 7.6-11.0 [facility] Comment on above: Performed By: #### L 501.0895 ####[facility] [address] [place], [address] CBC W/Diff, Automatedon 07-1 5-2024 Absolute Lymph 0.91 X10 3/uL Normal 0.83-4.51 [facility] Comment on above: Performed By: #### L 506.1001, L101.9900, L501.6710, L500.3400, L509.1000, L100.0100, L501.1105 #### [facility] [address] [place], [address] Absolute Neut 12.5 X10 3/uL High 2.0-7.7 [facility] Comment on above: Performed By: #### L 506.1001, L101.9900, L501.6710, L500.3400, L509.1000, L100.0100, L501.1105 #### [facility] [address] [place], [address] Basophils/100 WBC (Bld) 0.1 % Normal 0-1 [facility] Comment on above: Performed By: #### L 506.1001, L101.9900, L501.6710, L500.3400, L509.1000, L100.0100, L501.1105 #### [facility] [address] [place], [address] Eosinophils/100 WBC (Bld) 0.0 % Normal 0-5 [facility] Comment on above: Performed By: #### L 506.1001, L101.9900, L501.6710, L500.3400, L509.1000, L100.0100, L501.1105 #### [facility] [address] [place], [address] Erythrocyte distribution width (RBC) [Ratio] 13.5 % Normal 11.6-14.6 [facility] Comment on above: Performed By: #### L 506.1001, L101.9900, L501.6710, L500.3400, L509.1000, L100.0100, L501.1105 #### [facility] [address] [place], [address] Hematocrit (Bld) [Volume fraction] 39.6 % Normal 37-47 [facility] Comment on above: Performed By: #### L 506.1001, L101.9900, L501.6710, L500.3400, L509.1000, L100.0100, L501.1105 #### [facility] [address] [place], [address] Hemoglobin (Bld) [Mass/Vol] 12.9 g/dL Normal 12.0-15.0 [facility] Comment on above: Performed By: #### L 506.1001, L101.9900, L501.6710, L500.3400, L509.1000, L100.0100, L501.1105 #### [facility] [address] [place], [address] IG% 0.500 Normal 0.0-0.9 [facility] Comment on above: Result Comment: IG% - Immature Granulocytes (promyelocytes, myelocytes and metamyelocytes) > 1% indicates that a LEFT SHIFT is Present. Performed By: #### L 506.1001, L101.9900, L501.6710, L500.3400, L509.1000, L100.0100, L501.1105 #### [facility] [address] [place], [address] Lymphocytes/100 WBC (Bld) 6.6 % Low 19-41 [facility] Comment on above: Performed By: #### L 506.1001, L101.9900, L501.6710, L500.3400, L509.1000, L100.0100, L501.1105 #### [facility] [address] [place], [address] MCH (RBC) [Entitic mass] 31.1 pg Normal 27.0-32.0 [facility] Comment on above: Performed By: #### L 506.1001, L101.9900, L501.6710, L500.3400, L509.1000, L100.0100, L501.1105 #### [facility] [address] [place], [address] MCHC (RBC) [Mass/Vol] 32.6 g/dL Normal 32-36 [facility] Comment on above: Performed By: #### L 506.1001, L101.9900, L501.6710, L500.3400, L509.1000, L100.0100, L501.1105 #### [facility] [address] [place], [address] MCV (RBC) [Entitic vol] 95.4 fL Normal 81-99 [facility] Comment on above: Performed By: #### L 506.1001, L101.9900, L501.6710, L500.3400, L509.1000, L100.0100, L501.1105 #### [facility] [address] [place], [address] Monocytes/100 WBC (Bld) 2.1 % Normal 0-10 [facility] Comment on above: Performed By: #### L 506.1001, L101.9900, L501.6710, L500.3400, L509.1000, L100.0100, L501.1105 #### [facility] [address] [place], [address] Neutrophils/100 WBC (Bld) 90.7 % High 47-70 [facility] Comment on above: Performed By: #### L 506.1001, L101.9900, L501.6710, L500.3400, L509.1000, L100.0100, L501.1105 #### [facility] [address] [place], [address] Nucleated RBC (Bld) [#/Vol] 0 10*3/uL Normal 0-5 [facility] Comment on above: Performed By: #### L 506.1001, L101.9900, L501.6710, L500.3400, L509.1000, L100.0100, L501.1105 #### [facility] [address] [place], [address] Platelet mean volume (Bld) [Entitic vol] 9.5 fL Normal 6.2-12.0 [facility] Comment on above: Performed By: #### L 506.1001, L101.9900, L501.6710, L500.3400, L509.1000, L100.0100, L501.1105 #### [facility] [address] [place], [address] Platelets (Bld) [#/Vol] 407 10*3/uL Normal 150-450 [facility] Comment on above: Performed By: #### L 506.1001, L101.9900, L501.6710, L500.3400, L509.1000, L100.0100, L501.1105 #### [facility] [address] [place], [address] RBC (Bld) [#/Vol] 4.15 10*6/uL Low 4.2-5.4 [facility] Comment on above: Performed By: #### L 506.1001, L101.9900, L501.6710, L500.3400, L509.1000, L100.0100, L501.1105 #### [facility] [address] [place], [address] RDW SD 47.7 fl High 35.1-43.9 [facility] Comment on above: Performed By: #### L 506.1001, L101.9900, L501.6710, L500.3400, L509.1000, L100.0100, L501.1105 #### [facility] [address] [place], [address] WBC (Bld) [#/Vol] 13.8 10*3/uL High 4.4-11.0 [facility] Comment on above: Performed By: #### L 506.1001, L101.9900, L501.6710, L500.3400, L509.1000, L100.0100, L501.1105 #### [facility] [address] [place], [address] CRPon 01-28-2025 C-REACTIVE PROT 9.59 mg/L High 0.0-3.0 [facility] Comment on above: Order Comment: DR. Ministerio BIANCHI GETS RESULTS FOR CRP ESR LIVER CBCDCREATININE DR. LOU GETS RESULTS FOR VITD AND PTH Performed By: #### L 506.1001, L101.9900, L501.6710, L500.3400, L509.1000, L100.0100, L501.1105 ####[facility] [address] [place], [address] Erythrocyte Sed Rateon 01-28 SED RATE 21 mm/hr Normal 0-30 [facility] Comment on above: Performed By: #### L 506.1001, L101.9900, L501.6710, L500.3400, L509.1000, L100.0100, L501.1105 #### [facility] [address] [place], [address] Liver Profileon 01-28-2025 Albumin [Mass/Vol] 4.4 g/dL Normal 3.5-5.0 [facility] Comment on above: Order Comment: DR. Ministerio BIANCHI GETS RESULTS FOR CRP ESR LIVER CBCD CREATININE DR. LOU GETS RESULTS FOR VITD AND PTH Performed By: #### L 506.1001, L101.9900, L501.6710, L500.3400, L509.1000, L100.0100, L501.1105 #### [facility] [address] [place], [address] ALK PHOS 65 U/L Normal 35-104 [facility] Comment on above: Order Comment: DR. Ministerio BIANCHI GETS RESULTS FOR CRP ESR LIVER CBCD CREATININE DR. LOU GETS RESULTS FOR VITD AND PTH Performed By: #### L 506.1001, L101.9900, L501.6710, L500.3400, L509.1000, L100.0100, L501.1105 #### [facility] [address] [place], [address] ALT [Catalytic activity/Vol] 16 U/L Normal <=34 [facility] Comment on above: Order Comment: DR. Ministerio BIANCHI GETS RESULTS FOR CRP ESR LIVER CBCD CREATININE DR. LOU GETS RESULTS FOR VITD AND PTH Performed By: #### L 506.1001, L101.9900, L501.6710, L500.3400, L509.1000, L100.0100, L501.1105 #### [facility] [address] [place], [address] AST [Catalytic activity/Vol] 17 U/L Normal <=31 [facility] Comment on above: Order Comment: DR. Ministerio BIANCHI GETS RESULTS FOR CRP ESR LIVER CBCD CREATININE DR. LOU GETS RESULTS FOR VITD AND PTH Performed By: #### L 506.1001, L101.9900, L501.6710, L500.3400, L509.1000, L100.0100, L501.1105 #### [facility] [address] [place], [address] Bilirubin [Mass/Vol] 0.49 mg/dL Normal 0.00-1.30 [facility] Comment on above: Order Comment: DR. Ministerio BIANCHI GETS RESULTS FOR CRP ESR LIVER CBCD CREATININE DR. LOU GETS RESULTS FOR VITD AND PTH Performed By: #### L 506.1001, L101.9900, L501.6710, L500.3400, L509.1000, L100.0100, L501.1105 #### [facility] [address] [place], [address] Bilirubin.direct [Mass/Vol] 0.18 mg/dL Normal 0.00-0.30 [facility] Comment on above: Order Comment: DR. Ministerio BIANCHI GETS RESULTS FOR CRP ESR LIVER CBCD CREATININE DR. LOU GETS RESULTS FOR VITD AND PTH Performed By: #### L 506.1001, L101.9900, L501.6710, L500.3400, L509.1000, L100.0100, L501.1105 #### [facility] [address] [place], [address] Globulin (S) [Mass/Vol] 3.0 g/dL Normal 2.2-4.2 [facility] Comment on above: Order Comment: DR. Ministerio BIANCHI GETS RESULTS FOR CRP ESR LIVER CBCD CREATININE DR. LOU GETS RESULTS FOR VITD AND PTH Performed By: #### L 506.1001, L101.9900, L501.6710, L500.3400, L509.1000, L100.0100, L501.1105 #### [facility] [address] [place], [address] T PROT 7.4 g/dL Normal 5.9-8.4 [facility] Comment on above: Order Comment: DR. Ministerio BIANCHI GETS RESULTS FOR CRP ESR LIVER CBCD CREATININE DR. LOU GETS RESULTS FOR VITD AND PTH Performed By: #### L 506.1001, L101.9900, L501.6710, L500.3400, L509.1000, L100.0100, L501.1105 #### [facility] [address] [place], [address] PTHINon 01-28-2025 PTH 151 pg/mL High 11-61 [facility] Comment on above: Performed By: #### L 506.1001, L101.9900, L501.6710, L500.3400, L509.1000, L100.0100, L501.1105 #### [facility] [address] [place], [address] Serum Creatinine AND GFRon 0 01-28-2025 Creatinine [Mass/Vol] 1.00 mg/dL Normal 0.70-1.20 [facility] Comment on above: Order Comment: DR. Ministerio BIANCHI GETS RESULTS FOR CRP ESR LIVER CBCD CREATININE DR. LOU GETS RESULTS FOR VITD AND PTH Performed By: #### L 506.1001, L101.9900, L501.6710, L500.3400, L509.1000, L100.0100, L501.1105 #### [facility] [address] [place], [address] GFR/1.73 sq M.predicted among non-blacks MDRD (S/P/Bld) [Vol rate/Area] 72 mL/min/{1.73_m2} Normal >60 [facility] Comment on above: Order Comment: DR. Ministerio BIANCHI GETS RESULTS FOR CRP ESR LIVER CBCD CREATININE DR. LOU GETS RESULTS FOR VITD AND PTH Result Comment: mL/m in/1.73m2 CKD-EPI Creatinine Equation (2020) Performed By: #### L 506.1001, L101.9900, L501.6710, L500.3400, L509.1000, L100.0100, L501.1105 #### [facility] [address] [place], [address] Vitamin D,25 Hydroxyon 01-28 Vitamin D 25-OH 35.0 ng/mL Normal 30-100 [facility] Comment on above: Order Comment: DR. Ministerio BIANCHI GETS RESULTS FOR CRP ESR LIVER CBCD CREATININE DR. LOU GETS RESULTS FOR VITD AND PTH Result Comment: Mira min D Status Deficiency: <20 ng/mL (50nmol/L) Insufficiency: 20-30 ng/mL (50-75 nmol/L) Sufficiency: 30-100 ng/mL (75-250 nmol/L) Toxicity: >100 ng/mL (>250 nmol/L) Performed By: #### L 506.1001, L101.9900, L501.6710, L500.3400, L509.1000, L100.0100, L501.1105 #### [facility] [address] [place], [address] Foot min 3 Viewson Foot min 3 Views [facility] [address] [place] [address] Foot min 3 Views MR#: [id number] Acct: [id number] Name: ALMA ADEN Rep #: [id number] : 1980 F 44 From: Skyler mancuso MD PCP: Dr. Wyatt Marcelo MD Status: REG CLI Study: Foot min 3 Views Date of Exam: 01/21/25 Exam# [id number] Ordering Dr: Kati Hilliard PROCEDURE: FOOT MIN 3 VIEWS 01/21/2025 REASON FOR EXAM: PAIN IN HEEL X 2 WEEKS TECHNIQUE: FOOT MIN 3 VIEWS COMPARISON: 09/08/2023 FINDINGS: TECHNIQUE: X-ray foot AP, oblique and lateral views. FINDINGS: Alignment is normal without evidence of acute displaced fracture or dislocation seen. Metatarsophalangeal and interphalangeal joints appear normal. No sclerotic or lytic bone lesion noted. Soft tissues appear normal. RAD/Foot min 3 Views IMPRESSION: No acute abnormality seen. No new acute findings. Reading Location: ED CC: ZAFAR Hilliard; Dr. Wyatt Marcelo MD Gl[employer] S[employer]er Hand: Signed [facility] Internal Medicine Office Vis aisha 01-21-2025 Internal Medicine Office Visit [facility] [address] [place] [address] [place] [address] OFFICE VISIT Date of Service: 01/21/25 MR#: [id number] Acct: [id number] Name: ALMA ADEN Rep #: [id number] : 1980 Provider: ZAFAR neil Age/Sex: 44/F Location[place] [facility] Status: Signed Intake Vital Signs 01/16/25 05:54 01/21/25 12:40 Height 5 ft 8 in 5 ft 8 in BP 132/80 H Blood Pressure Location Lt brachial Position Sitting Respiration 16 Pulse 86 Pulse Source Monitor Temp 95.6 F L Temp Source Temporal Pulse Oximetry (%) 97 Oxygen Delivery Method room air Intake Visit Reasons: ACUTE LEFT HEEL PAIN Chief 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: heel pain 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: No Accompanied by: Self Is patient in pain?: Yes Pain scale (1-10): 5 Allergies sumatriptan Allergy (Severe, Verified 01/21/25 12:35) headache penicillin G Allergy (Mild, Verified 01/21/25 12:35) Other latex Allergy (Verified 01/21/25 12:35) Rash escitalopram (From Lexapro) Adverse Reaction (Verified 01/21/25 12:35) Other Medications ???Medication ???Instructions ???Recorded ???Confirmed ???Type ferrous sulfate 325 mg (65 mg 325 mg PO DAILY 12/16/19 01/21/25 History iron) tablet (FeroSul) mecobalamin (vitamin B12) 1,000 1,000 mcg PO DAILY 11/14/23 History mcg chewable tablet melatonin 3 mg capsule 3 mg PO HS 11/14/23 01/21/25 Histo ry upadacitinib 15 mg tablet,extended 15 mg PO DAILY 11/14/23 01/21/25 History release 24 hr (Rinvoq) ubrogepant 100 mg tablet (Ubrelvy) 100 mg PO ONCE PRN MIGRAINES #15 12/12/23 01/21/25 Rx tabs alprazolam 0.25 mg tablet (Xanax) 0.25 mg PO DAILY PRN PRN Anxiety 04/25/24 01/21/25 Rx #20 tabs prednisone 10 mg tablet 10 mg PO DAILY PRN Arthritis #100 04/25/24 01/21/25 Rx tabs methotrexate 2 mg/mL oral solution 2.5 mg PO SA 08/31/24 01/21/25 H istory duloxetine 30 mg capsule,delayed 30 mg PO DAILY #90 caps 09/05/24 0 01/21/25 Rx release losartan 100 mg tablet 100 mg PO DAILY #90 tabs 10/14/24 01/21/25 Rx duloxetine 60 mg capsule,delayed 60 mg PO QDAY DEPRESSION #90 caps 12/03/24 01/21/25 Rx release (Cymbalta) levothyroxine 150 mcg tablet 150 mcg PO MOTUTHFRSA 01/14/2503/10 History pantoprazole 40 mg tablet,delayed 40 mg PO BID 2 months #120 tabs 0 01/16/25 01/21/25 Rx release prednisone 10 mg tablet 10 mg PO DIRECTED #48 tabs 03/1001/21/25 Rx Nurse's Note: hurts with ambulation and if o PFSH Medical History History of prediabetes Rheumatoid arthritis Low iron High cholesterol History of IBS Hyperparathyroidism Diabetes mellitus type 2, diet-controlled Preventative [...] at home: Yes 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 Patient states no injury no increase in activity no change in footwear (more content not included)... [facility] EGD Reporton 01-16-2025 EGD Report [facility] Medical Records Department [address] [place] [address] EGD Report MR#: [id number] Acct: [id number] Name: ALMA ADEN Rep #: [id number] : 1980 44 From: Hammad Loaiza DO PCP: Dr. Wyatt Marcelo MD Status:[facility] Patient Name: Alma Aden Procedure Date: 01/16/2025 6:14 AM Date of : 1980 Age: 44 Procedure: Upper GI endoscopy Indications: Epigastric abdominal pain, Dyspepsia, Indigestion, Esophageal reflux Providers: Hammad Loaiza DO Referring MD: Wyatt Marcelo MD Medicines: Monitored Anesthesia Care Patient Profile: This is a 44 year old female. Refer to note in patient chart for documentation of history and physical. Patient has symptoms of chronic dyspepsia and chronic heartburn. Complications: No immediate complications. Procedure: Pre-Anesthesia Assessment: - Prior to the procedure, a History and Physical was performed, and patient medications and allergies were reviewed. The patient is competent. The risks and benefits of the procedure and the sedation options and risks were discussed with the patient. All questions were answered and informed consent was obtained. Patient identification and proposed procedure were verified by the physician in the pre-procedure area. Mental Status Examination: alert and oriented. Airway Examination: normal oropharyngeal airway and neck mobility. Respiratory Examination: clear to auscultation. CV Examination: normal. Prophylactic Antibiotics: The patient does not require prophylactic antibiotics. Prior Anticoagulants: The patient has taken no anticoagulant or antiplatelet agents except for NSAID medication. ASA Grade Assessment: II - A patient with mild systemic disease. After reviewing the risks and benefits, the patient was deemed in satisfactory condition to undergo the procedure. The anesthesia plan was to use monitored anesthesia care (MAC). Immediately prior to administration of medications, the patient was re-assessed for adequacy to receive sedatives. The heart rate, respiratory rate, oxygen saturations, blood pressure, adequacy of pulmonary ventilation, and response to care were monitored throughout the procedure. The physical status of the patient was re-assessed after the procedure. After obtaining informed consent, the endoscope was passed under direct vision. Throughout the procedure, the patient's blood pressure, pulse, and oxygen saturations were monitored continuously. The Endoscope was introduced through the mouth, and advanced to the third part of the duodenum. Small bowel enteroscopy was deemed necessary. The upper GI endoscopy was accomplished without difficulty. The patient tolerated the procedure well. Scope In: 7:06:26 AM Scope Out: 7:11:14 AM Total Procedure Duration Time 0 hours 4 minutes 48 seconds Findings: LA Grade B (one or more mucosal breaks greater than 5 mm, not extending between the tops of two mucosal folds) esophagitis with no bleeding was found. Biopsies were taken with a cold forceps for histology. Verification of patient identification for the specimen was done. Estimated blood loss was minimal. Suspect gastroparesis due to absence of peristalsis. Patchy moderate inflammation characterized by erosions and erythema was found in the gastric body and in the gastric antrum. Biopsies were taken with a cold forceps for histology. Verification of patient identification for the specimen was done. Biopsies were taken with a cold forceps for Helicobacter pylori testing. Verification of patient identification for the specimen was done. Estimated blood loss was minimal. Patchy moderate inflammation characterized by congestion (edema), erosions and erythema was found in the duodenal bulb, in the first portion of the duodenum, in the second portion of the duodenum and in the third portion of the duodenum. Biopsies were taken with a cold forceps for histology. Verification of patient identification for the specimen was done. Estimated blood loss was minimal. Impression: - LA Grade B erosive esophagitis with no bleeding. Biopsied. - Gastroparesis. - Chronic gastritis. Biopsied. - Chronic duodenitis. Biopsied. Recommendation: - Discharge patient to home. - Resume previous diet. - Continue present medications. - Await pathology results. -Pantoprazole 40 mg p.o. twice daily x 8 weeks and then pantoprazole once a day x 4 weeks Procedure Code(s): --- Professional --- 48502, Small intestinal endoscopy, enteroscopy beyond second portion of duodenum, not including ileum; with biopsy, single or multiple CPT copyright 2021 [employer]. All rights reserved. The codes documented in this report are preliminary and upon supervisor finishing department review may be revised to meet current compliance requirements. Hammad Loaiza DO 01/16/2025 (more content not included)... [facility] Immunohistochemical Stainson 01-16-2025 Immunohistochemical Stains Patient Age/Sex Location Account Attending Physician ALMA ADEN 44/F EN [id number] Hammad Loaiza DO Specimen: [id number] Received: 01/16/25 Status: BETH Gerber Num: [id number] Spec Type: EGD BIOPSY Subm Dr: Hammad Loaiza DO HEADER OPERATION: EGD, biopsy PRE-OP DIAGNOSIS: GERD TISSUE SUBMITTED: A- Distal esophagus biopsy, B- Gastric antrum biopsy MICROSCOPIC DIAGNOSIS A. Distal esophagus, biopsy: Columnar mucosa with marked active chronic inflammation and reactive epithelial change. Negative for goblet cell metaplasia and dysplasia. No squamous mucosa seen. B. Stomach, antrum, biopsy: Active chronic gastritis with focal erosion/ulceration. Small intestinal-type mucosa with Samara gland hyperplasia, consistent with duodenal origin. IHC negative for H pylori organisms. MICROSCOPIC DESCRIPTION Slides are reviewed. All matched controls reacted appropriately. These tests were developed and their performance characteristics determined by [facility]. They may not have been cleared or approved by the U.S. Food and Drug Administration. The FDA has determined that such clearance or approval is not necessary. The above immunohistochemical/dualISH markers are viewed by the Pathologist. GROSS DESCRIPTION A. Received in fixative is one container labeled with the patient's name and designated Distal esophagus biopsy. The specimen consists of multiple irregular fragments of light jama soft tissue that in aggregate measure 0.2 to 0.4 cm. The specimen is totally submitted in one cassette. B. Received in fixative is one container labeled with the patient's name and designated Gastric antrum biopsy. The specimen consists of multiple irregular fragments of light jama soft tissue that in aggregate measure 0.3 to 0.6 cm. The specimen is totally submitted in one cassette. JOHN/ 01/16/2025 CPT:84600q9,19413 Patient Age/Sex Location Account Attending Physician ALMA ADEN Omar 44/F EN [id number] Hammad Loaiza DO Signed (signature on file) Dr. Shelley Gunn MD 01/21/25 1529 [facility] Comment on above: Performed By: #### L 506.0400, L501.9520 #### [facility] [address] [place], [address] MR/POSTOP.ANEon 01-16-2025 MR/POSTOP.[facility] Medical Records Department [address] [place] [address] Anesthesia Postop Eval I 01/16/25718 MR#: [id number] Acct: [id number] Name: DAYDAY ADENLEONARDO Adamson Rep #: [id number] : 1980 44 From: Adi Berger CRNA PCP: Dr. Wyatt Marcelo MD Status:REG SDC Y Race: C Location: [place] [address] Anesthesia: Postop Eval I Current Vital Signs Temperature: 97 F Pulse Rate: 72 Blood Pressure: 135/102 Respiratory Rate: 16 Pulse Ox: 98 Oxygen Delivery Method: Room Air Assessment Airway patent: Yes Spontaneous unlabored respirations: Yes Mental status: Awake and Calm nausea: No Vomiting: No Anesthesia Complication: No Fluid Hydration Crystalloid volume administer (ml): 100 Total IV fluid infused: 100 Progress Note Anesthesia document: Postop Eval 1 completed: Yes 01/16/25719 Date Adi Berger COMMISSIONING ENGINEER Cosigner Signature: Date CC: Signed [facility] MR/[id number] 01-16-2025 MR/POSTOPAN2 [facility] Medical Records Department [address] [place] [address] Anesthesia Postop Eval II 01/16/2546 MR#: [id number] Acct: [id number] Name: ALMA ADEN Rep #: [id number] : 1980 44 From: Konrad Henderson MD PCP: Dr. Wyatt Marcelo MD Status:[place] [facility] Race: C Location: [place] [address] Anesthesia Postop Eval I Sum Postop Eval Completion status Anesthesia document: Postop Eval 1 completed: Yes Anesthesia Postop Eval I Summary Anesthesia Postop Eval I Summary: Anesthesia Postop Eval I: Assessment Summary Airway patent Yes 01/16/25 07:20 COMMISSIONING ENGINEER.MDOT Spontaneous unlabored Yes 01/16/25 07:20 COMMISSIONING ENGINEER.MDOT respirations Mental status Awake,Calm 01/16/25 07:20 COMMISSIONING ENGINEER.MDOT nausea No 01/16/25 07:20 COMMISSIONING ENGINEER.MDOT Vomiting No 01/16/25 07:20 COMMISSIONING ENGINEER.MDOT Anesthesia Postop Eval I: Fluid Summary Crystalloid volume administer 100 01/16/25 07:20 COMMISSIONING ENGINEERANJELICA (ml) Colloids volume administered ( ml) Blood Product volume administered (ml) Total IV fluid infused 100 01/16/25 07:20 COMMISSIONING ENGINEERANJELICA Anesthesia Postop Eval I: Summary Notes Anesthesia Complication No 01/16/25 07:20 COMMISSIONING ENGINEERANJELICA Anesthesia Complication Comment: Post-operative progress note Anesthesia: Postop Eval II Evaluation Mental status: Awake and Calm Pain Level: 1 nausea: No Vomiting: No Complications Anesthesia Complication: No 01/16/2546 Date Konrad Henderson MD Cosigner Signature: Date CC: Signed [facility] Endocrinology Visit Reporton 01-07-2025 Endocrinology Visit Report [facility] 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 [facility] established in 2020 with diar (more content not included)... [facility] T4 Free Directon 11-08-2024 T4 FREE DIRECT 1.00 ng/dL Normal 0.76-1.46 [facility] Comment on above: Performed By: #### L 506.0400, L501.9520 #### [facility] [address] [place], [place], [address] Thyroid Stim Hormone (TSH)on 11-08-2024 TSH 0.729 uIU/mL Normal 0.300-4.200 [facility] Comment on above: Performed By: #### L 506.0400, L501.9520 #### [facility] [address] [place], [place], [address] Absolute lymphocyte countOrd ered By: STEVEN BOLES on 11-07-2024 Lymphocytes Auto (Unsp spec) [#/Vol] 1.84 10*3/uL 0.83-4.51 [facility] Absolute neutrophil countOrd ered By: STEVEN BOLES on 11-07-2024 Neutrophils (Bld) [#/Vol] 4.2 10*3/uL 2.0-7.7 [facility] Automated lymphocyte count a s percentage of total leukocytesOrdered By: STEVEN BOLES on 11-07-2024 Lymphocytes/100 WBC Auto (Unsp spec) 27.3 % 19-41 [facility] Basophil percentageOrdered B y: STEVEN BOLES on 11-07-2024 Basophils/100 WBC (Bld) 0.7 % 0-1 [facility] Bilirubin directOrdered By: STEVEN BOLES on 11-07-2024 Bilirubin.direct [Mass/Vol] 0.12 mg/dL 0.00-0.30 [facility] Bilirubin, totalOrdered By: STEVEN BOLES on 11-07-2024 Bilirubin [Mass/Vol] 0.29 mg/dL 0.00-1.30 [facility] CBC W/Diff, Automatedon 10-16 Absolute Lymph 1.84 X10 3/uL Normal 0.83-4.51 [facility] Comment on above: Performed By: #### L 506.0400, L501.9520 #### [facility] [address] [place], [address] Absolute Neut 4.2 X10 3/uL Normal 2.0-7.7 [facility] Comment on above: Performed By: #### L 506.0400, L501.9520 #### [facility] [address] [place], [address] Basophils/100 WBC (Bld) 0.7 % Normal 0-1 [facility] Comment on above: Performed By: #### L 506.0400, L501.9520 #### [facility] [address] [place], [address] Eosinophils/100 WBC (Bld) 2.1 % Normal 0-5 [facility] Comment on above: Performed By: #### L 506.0400, L501.9520 #### [facility] [address] [place], [address] Erythrocyte distribution width (RBC) [Ratio] 12.7 % Normal 11.6-14.6 [facility] Comment on above: Performed By: #### L 506.0400, L501.9520 #### [facility] [address] [place], [address] Hematocrit (Bld) [Volume fraction] 36.6 % Low 37-47 [facility] Comment on above: Performed By: #### L 506.0400, L501.9520 #### [facility] [address] [place], [address] Hemoglobin (Bld) [Mass/Vol] 11.9 g/dL Low 12.0-15.0 [facility] Comment on above: Performed By: #### L 506.0400, L501.9520 #### [facility] [address] [place], [address] IG% 0.400 Normal 0.0-0.9 [facility] Comment on above: Result Comment: IG% - Immature Granulocytes (promyelocytes, myelocytes and metamyelocytes) > 1% indicates that a LEFT SHIFT is Present. Performed By: #### L 506.0400, L501.9520 #### [facility] [address] [place], [address] Lymphocytes/100 WBC (Bld) 27.3 % Normal 19-41 [facility] Comment on above: Performed By: #### L 506.0400, L5.9520 #### [facility] [address] [place], [address] MCH (RBC) [Entitic mass] 31.6 pg Normal 27.0-32.0 [facility] Comment on above: Performed By: #### L 506.0400, L501.9520 #### [facility] [address] [place], [address] MCHC (RBC) [Mass/Vol] 32.5 g/dL Normal 32-36 [facility] Comment on above: Performed By: #### L 506.0400, L501.9520 #### [facility] [address] [place], [address] MCV (RBC) [Entitic vol] 97.3 fL Normal 81-99 [facility] Comment on above: Performed By: #### L 506.0400, L501.9520 #### [facility] [address] [place], [address] Monocytes/100 WBC (Bld) 7.4 % Normal 0-10 [facility] Comment on above: Performed By: #### L 506.0400, L5.20 #### [facility] [address] [place], [address] Neutrophils/100 WBC (Bld) 62.1 % Normal 47-70 [facility] Comment on above: Performed By: #### L 506.0400, L5.20 #### [facility] [address] [place], [address] Nucleated RBC (Bld) [#/Vol] 0 10*3/uL Normal 0-5 [facility] Comment on above: Performed By: #### L 506.0400, L5.20 #### [facility] [address] [place], [address] Platelet mean volume (Bld) [Entitic vol] 9.5 fL Normal 6.2-12.0 [facility] Comment on above: Performed By: #### L 506.0400, L5.20 #### [facility] [address] [place], [address] Platelets (Bld) [#/Vol] 318 10*3/uL Normal 150-450 [facility] Comment on above: Performed By: #### L 506.0400, L5.20 #### [facility] [address] [place], [address] RBC (Bld) [#/Vol] 3.76 10*6/uL Low 4.2-5.4 [facility] Comment on above: Performed By: #### L 506.0400, L5.20 #### [facility] [address] [place], [address] RDW SD 45.2 fl High 35.1-43.9 [facility] Comment on above: Performed By: #### L 506.0400, L5.20 #### [facility] [address] [place], [address] WBC (Bld) [#/Vol] 6.7 10*3/uL Normal 4.4-11.0 [facility] Comment on above: Performed By: #### L 506.0400, L501.9520 #### [facility] [address] [place], [address] CRPon 11-07-2024 C-REACTIVE PROT 7.96 mg/L High 0.0-3.0 [facility] Comment on above: Performed By: #### L 506.0400, L501.9520 #### [facility] [address] [place], [address] CRP [Mass/Vol]Ordered By: ME KEYNOA BOLES on 11-07-2024 C-Reactive Protein Extended Range 7.96 mg/L High 0.0-3.0 [facility] Eosinophil percentageOrdered By: STEVEN BOLES on 11-07-2024 Eosinophils/100 WBC (Bld) 2.1 % 0-5 [facility] Erythrocyte Sed Rateon 11-07 SED RATE 8 mm/hr Normal 0-30 [facility] Comment on above: Performed By: #### L 506.0400, L501.9520 #### [facility] [address] [place], [address] Erythrocyte distribution wid th (RBC) [Ratio]Ordered By: STEVEN BOLES on 11-07-2024 Erythrocyte distribution width (RBC) [Entitic vol] 45.2 fL High 35.1-43.9 [facility] Erythrocyte distribution wid th ratioOrdered By: STEVEN BOLES on 11-07-2024 Erythrocyte distribution width (RBC) [Ratio] 12.7 % 11.6-14.6 [facility] Erythrocyte distribution wid th standard deviationOrdered By: STEVEN BOLES on 11-07-2024 Erythrocyte distribution width (RBC) [Ratio] 45.2 fl High 35.1-43.9 [facility] Erythrocyte sedimentation ra teOrdered By: STEVEN BOLES on 11-07-2024 ESR (Bld) [Velocity] 8 mm/h 0-30 [facility] GFR/1.73 sq M.predicted leann g non-blacks MDRD (S/P/Bld) [Vol rate/Area]Ordered By: STEVEN BOLES on 11-07-2024 Estimated GFR (MDRD) Non-Af Amer 95 >60 [facility] Comment on above: mL/min/1.73m2 CKD-EP I Creatinine Equation (2020) Glomerular filtration rate ( GFR) estimation/1.73 sq m using serum, plasma, or whole bOrdered By: STEVEN BOLES on 11-07-2024 GFR/1.73 sq M.predicted among non-blacks MDRD (S/P/Bld) [Vol rate/Area] 95 mL/min/{1.73_m2} >60 [facility] Comment on above: mL/min/1.73m2 CKD-EP I Creatinine Equation (2020) Hematocrit Auto (Bld) [Volum e fraction]Ordered By: STEVEN BOLES on 11-07-2024 Hematocrit (Bld) [Volume fraction] 36.6 % Low 37-47 [facility] Hemoglobin measurementOrdere d By: STEVEN BOLES on 11-07-2024 Hemoglobin (Bld) [Mass/Vol] 11.9 g/dL Low 12.0-15.0 [facility] Immature granulocytes/100 WB C Auto (Bld)Ordered By: STEVEN BOLES on 11-07-2024 Immature granulocytes/100 WBC (Bld) 0.400 % 0.0-0.9 [facility] Comment on above: IG% - Immature Granu locytes (promyelocytes, myelocytes and metamyelocytes) > 1% indicates that a LEFT SHIFT is Present. Laboratory - Chemistry and C hemistry - challengeOrdered By: STEVEN BOLES on 11-07-2024 AST [Catalytic activity/Vol] 16 U/L <32 [facility] Liver Profileon 11-07-2024 Albumin [Mass/Vol] 4.1 g/dL Normal 3.5-5.0 [facility] Comment on above: Performed By: #### L 506.0400, L501.20 #### [facility] [address] [place], [address] ALK PHOS 63 U/L Normal 35-104 [facility] Comment on above: Performed By: #### L 506.0400, L501.9520 #### [facility] [address] [place], [address] ALT [Catalytic activity/Vol] 18 U/L Normal <=34 [facility] Comment on above: Performed By: #### L 506.0400, L5.9520 #### [facility] [address] [place], [address] AST [Catalytic activity/Vol] 16 U/L Normal <=31 [facility] Comment on above: Performed By: #### L 506.0400, L5.20 #### [facility] [address] [place], [address] Bilirubin [Mass/Vol] 0.29 mg/dL Normal 0.00-1.30 [facility] Comment on above: Performed By: #### L 506.0400, L5.20 #### [facility] [address] [place], [address] Bilirubin.direct [Mass/Vol] 0.12 mg/dL Normal 0.00-0.30 [facility] Comment on above: Performed By: #### L 506.0400, L5.20 #### [facility] [address] [place], [address] Globulin (S) [Mass/Vol] 2.3 g/dL Normal 2.2-4.2 [facility] Comment on above: Performed By: #### L 506.0400, L501.9520 #### [facility] [address] [place], [address] T PROT 6.4 g/dL Normal 5.9-8.4 [facility] Comment on above: Performed By: #### L 506.0400, L501.9520 #### [facility] [address] [place], [address] Lymphocytes Auto (Unsp spec) [#/Vol]Ordered By: STEVEN BOLES on 11-07-2024 Lymphocytes (Bld) [#/Vol] 1.84 10*3/uL 0.83-4.51 [facility] Lymphocytes/100 WBC Auto (Un sp spec)Ordered By: STEVEN BOLES on 11-07-2024 Lymphocytes/100 WBC (Bld) 27.3 % 19-41 [facility] MCV (mean corpuscular volume ) determinationOrdered By: STEVEN BOLES on 11-07-2024 MCV (RBC) [Entitic vol] 97.3 fL 81-99 [facility] Mean corpuscular hemoglobin (MCH) determinationOrdered By: STEVEN BOLES on 11-07-2024 MCH (RBC) [Entitic mass] 31.6 pg 27.0-32.0 [facility] Mean corpuscular hemoglobin concentration (MCHC) determinationOrdered By: STEVEN BOLES on 11-07-2024 MCHC (RBC) [Mass/Vol] 32.5 g/dL 32-36 [facility] Mean platelet volume determi nationOrdered By: STEVEN BOLES on 11-07-2024 Platelet mean volume (Bld) [Entitic vol] 9.5 fL 6.2-12.0 [facility] Monocyte percentageOrdered B y: STEVEN BOLES on 11-07-2024 Monocytes/100 WBC (Bld) 7.4 % 0-10 [facility] Neutrophil percentageOrdered By: STEVEN BOLES on 11-07-2024 Neutrophils/100 WBC (Bld) 62.1 % 47-70 [facility] Nucleated red blood cell per centageOrdered By: STEVEN BOLES on 11-07-2024 Nucleated RBC/100 WBC (Bld) [Ratio] 0 % 0-5 [facility] Platelet countOrdered By: ME KEYONA BOLES on 11-07-2024 Platelets (Bld) [#/Vol] 318 10*3/uL 150-450 [facility] RBC Auto (Bld) [#/Vol]Ordere d By: STEVEN BOLES on 11-07-2024 RBC (Bld) [#/Vol] 3.76 10*6/uL Low 4.2-5.4 [facility] Serum Creatinine AND GFRon 0 11-07-2024 Creatinine [Mass/Vol] 0.80 mg/dL Normal 0.70-1.20 [facility] Comment on above: Performed By: #### L 506.0400, L501.9520 #### [facility] [address] [place], [place], [address] GFR/1.73 sq M.predicted among non-blacks MDRD (S/P/Bld) [Vol rate/Area] 95 mL/min/{1.73_m2} Normal >60 [facility] Comment on above: Result Comment: mL/m in/1.73m2 CKD-EPI Creatinine Equation (2020) Performed By: #### L 506.0400, L501.9520 #### [facility] [address] [place], [place], [address] Serum creatinine measurement (mass/volume)Ordered By: STEVEN BOLES on 11-07-2024 Creatinine [Mass/Vol] 0.80 mg/dL 0.70-1.20 [facility] Serum globulin measurementOr dered By: STEVEN BOLES on 11-07-2024 Globulin (S) [Mass/Vol] 2.3 g/dL 2.2-4.2 [facility] Serum or plasma C reactive p rotein measurement (mass/volume)Ordered By: STEVEN BOLES on 11-07-2024 CRP [Mass/Vol] 7.96 mg/L High 0.0-3.0 [facility] Serum or plasma alanine zuñiga otransferase (ALT) measurementOrdered By: STEVEN BOLES on 11-07-2024 ALT [Catalytic activity/Vol] 18 U/L <35 [facility] Serum or plasma albumin sancho urement (mass/volume)Ordered By: STEVEN BOLES on 11-07-2024 Albumin [Mass/Vol] 4.1 g/dL 3.5-5.0 [facility] Serum or plasma alkaline nallely sphatase measurementOrdered By: STEVEN BOLES on 11-07-2024 ALP [Catalytic activity/Vol] 63 U/L 35-104 [facility] T4 freeOrdered By: Cali Lou on 11-07-2024 Free T4 [Mass/Vol] 1.00 ng/dL 0.76-1.46 [facility] TSH DL <= 0.005 mIU/L QnOrde red By: Cali Lou on 11-07-2024 Thyroid Stimulating Hormone (TSH) 0.729 uIU/mL 0.300-4.200 [facility] TSH Qn 0.729 uIU/mL 0.300-4.200 [facility] Total proteinOrdered By: IRENE BOLES on 11-07-2024 Protein [Mass/Vol] 6.4 g/dL 5.9-8.4 [facility] White blood cell (WBC) count Ordered By: STEVEN BOLES on 11-07-2024 WBC (Bld) [#/Vol] 6.7 10*3/uL 4.4-11.0 [facility] Internal Medicine Office Vis aisha 10-23-2024 Internal Medicine Office Visit [facility] [address] [place] [address] [address] [place], [place] [address] OFFICE VISIT Date of Service: 10/23/24 MR#: [id number] Acct: [id number] Name: ALMA ADEN Rep #: [id number] : 1980 Provider: Dr. 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 [facility] Hemoglobin A1con 10-10-2024 HbA1c (Bld) [Mass fraction] 5.9 % Normal <=5.6 [facility] Comment on above: Performed By: #### L 506.0400, L501.9520 #### [facility] [address] 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 [facility] Absolute neutrophil countOrd ered By: STEVEN BOLES on 07-23-2024 Neutrophils (Bld) [#/Vol] 3.3 10*3/uL 2.0-7.7 [facility] Basophil percentageOrdered B y: STEVEN BOLES on 07-23-2024 Basophils/100 WBC (Bld) 0.5 % 0-1 [facility] Bilirubin directOrdered By: STEVEN BOLES on 07-23-2024 Bilirubin.direct [Mass/Vol] 0.10 mg/dL 0.00-0.30 [facility] Bilirubin, totalOrdered By: STEVEN BOLES on 07-23-2024 Bilirubin [Mass/Vol] 0.40 mg/dL 0.20-1.00 [facility] Comment on above: For patients on eltr ombopag therapy, use of Dimension [place] TBIL is not recommended. C-reactive protein measureme nt by high sensitivity methodOrdered By: STEVEN BOLES on 07-23-2024 C-Reactive Protein Extended Range 4.63 mg/L High 0.0-3.0 [facility] Comment on above: C-Reactive Protein ( CRP) provides useful information for thediagnosis, therapy and monitoring of inflammatory processesand associated diseases. For the evaluation of Relative Riskfor Cardiovascular Disease, a High Sensitivity CRP (HSCRP)should be ordered. CBC W/Diff, Automatedon Absolute Lymph 1.81 X10 3/uL Normal 0.83-4.51 [facility] Comment on above: Performed By: #### L 101.9900, L501.1105, L500.3400, L100.0100, L501.6710 ####[facility] [address] [place], [address] Absolute Neut 3.3 X10 3/uL Normal 2.0-7.7 [facility] Comment on above: Performed By: #### L 101.9900, L501.1105, L500.3400, L100.0100, L501.6710 ####[facility] [address] [place], [address] Basophils/100 WBC (Bld) 0.5 % Normal 0-1 [facility] Comment on above: Performed By: #### L 101.9900, L501.1105, L500.3400, L100.0100, L501.6710 ####[facility] [address] [place], [address] Eosinophils/100 WBC (Bld) 1.8 % Normal 0-5 [facility] Comment on above: Performed By: #### L 101.9900, L501.1105, L500.3400, L100.0100, L501.6710 ####[facility] [address] [place], [address] Erythrocyte distribution width (RBC) [Ratio] 13.4 % Normal 11.6-14.6 [facility] Comment on above: Performed By: #### L 101.9900, L501.1105, L500.3400, L100.0100, L501.6710 ####[facility] [address] [place], [address] Hematocrit (Bld) [Volume fraction] 35.1 % Low 37-47 [facility] Comment on above: Performed By: #### L 101.9900, L501.1105, L500.3400, L100.0100, L501.6710 ####[facility] [address] [place], [address] Hemoglobin (Bld) [Mass/Vol] 11.5 g/dL Low 12.0-15.0 [facility] Comment on above: Performed By: #### L 101.9900, L501.1105, L500.3400, L100.0100, L501.6710 ####[facility] [address] [place], [address] IG% 0.200 Normal 0.0-0.9 [facility] Comment on above: Result Comment: IG% - Immature Granulocytes (promyelocytes, myelocytes and metamyelocytes) > 1% indicates that a LEFT SHIFT is Present. Performed By: #### L 101.9900, L501.1105, L500.3400, L100.0100, L501.6710 ####[facility] [address] [place], [address] Lymphocytes/100 WBC (Bld) 31.9 % Normal 19-41 [facility] Comment on above: Performed By: #### L 101.9900, L501.1105, L500.3400, L100.0100, L501.6710 ####[facility] [address] [place], [address] MCH (RBC) [Entitic mass] 31.4 pg Normal 27.0-32.0 [facility] Comment on above: Performed By: #### L 101.9900, L501.1105, L500.3400, L100.0100, L501.6710 ####[facility] [address] [place], [address] MCHC (RBC) [Mass/Vol] 32.8 g/dL Normal 32-36 [facility] Comment on above: Performed By: #### L 101.9900, L501.1105, L500.3400, L100.0100, L501.6710 ####[facility] [address] [place], [address] MCV (RBC) [Entitic vol] 95.9 fL Normal 81-99 [facility] Comment on above: Performed By: #### L 101.9900, L501.1105, L500.3400, L100.0100, L501.6710 ####[facility] [address] [place], [address] Monocytes/100 WBC (Bld) 8.1 % Normal 0-10 [facility] Comment on above: Performed By: #### L 101.9900, L501.1105, L500.3400, L100.0100, L501.6710 ####[facility] [address] [place], [address] Neutrophils/100 WBC (Bld) 57.5 % Normal 47-70 [facility] Comment on above: Performed By: #### L 101.9900, L501.1105, L500.3400, L100.0100, L501.6710 ####[facility] [address] [place], [address] Nucleated RBC (Bld) [#/Vol] 0 10*3/uL Normal 0-5 [facility] Comment on above: Performed By: #### L 101.9900, L501.1105, L500.3400, L100.0100, L501.6710 ####[facility] [address] [place], [address] Platelet mean volume (Bld) [Entitic vol] 9.6 fL Normal 6.2-12.0 [facility] Comment on above: Performed By: #### L 101.9900, L501.1105, L500.3400, L100.0100, L501.6710 ####[facility] [address] [place], [address] Platelets (Bld) [#/Vol] 329 10*3/uL Normal 150-450 [facility] Comment on above: Performed By: #### L 101.9900, L501.1105, L500.3400, L100.0100, L501.6710 ####[facility] [address] [place], [address] RBC (Bld) [#/Vol] 3.66 10*6/uL Low 4.2-5.4 [facility] Comment on above: Performed By: #### L 101.9900, L501.1105, L500.3400, L100.0100, L501.6710 ####[facility] [address] [place], [address] RDW SD 47.3 fl High 35.1-43.9 [facility] Comment on above: Performed By: #### L 101.9900, L501.1105, L500.3400, L100.0100, L501.6710 ####[facility] [address] [place], [address] WBC (Bld) [#/Vol] 5.7 10*3/uL Normal 4.4-11.0 [facility] Comment on above: Performed By: #### L 101.9900, L501.1105, L500.3400, L100.0100, L501.6710 ####[facility] [address] [place], [place], [id number] CRPon 07-23-2024 C-REACTIVE PROT 4.63 mg/L High 0.0-3.0 [facility] Comment on above: Result Comment: C-Re active Protein (CRP) provides useful information for the diagnosis, therapy and monitoring of inflammatory processes and associated diseases. For the evaluation of Relative Risk for Cardiovascular Disease, a High Sensitivity CRP (HSCRP) should be ordered. Performed By: #### L 101.9900, L501.1105, L500.3400, L100.0100, L501.6710 ####[facility] [address] [place], [place], [id number] Eosinophil percentageOrdered By: STEVEN BOLES on 07-23-2024 Eosinophils/100 WBC (Bld) 1.8 % 0-5 [facility] Erythrocyte Sed Rateon 07-23 SED RATE 5 mm/hr Normal 0-30 [facility] Comment on above: Performed By: #### L 101.9900, L501.1105, L500.3400, L100.0100, L501.6710 ####[facility] [address] [place], [place], [id number] Erythrocyte distribution wid th ratioOrdered By: STEVEN BOLES on 07-23-2024 Erythrocyte distribution width (RBC) [Ratio] 13.4 % 11.6-14.6 [facility] Erythrocyte distribution wid th standard deviationOrdered By: STEVEN BOLES on 07-23-2024 Erythrocyte distribution width (RBC) [Entitic vol] 47.3 fL High 35.1-43.9 [facility] Erythrocyte sedimentation ra teOrdered By: STEVEN BOLES on 07-23-2024 ESR (Bld) [Velocity] 5 mm/h 0-30 [facility] Estimated glomerular filtrat ion rate (GFR) AmericanOrdered By: STEVEN BOLES on 07-23-2024 Estimated GFR (MDRD) Amer 103 mL/min >60 [facility] Comment on above: GFR Calc Glomerular filtration rate ( GFR) estimationOrdered By: STEVEN BOLES on 07-23-2024 Estimated GFR (MDRD) Non-Af Amer 85 mL/min >60 [facility] Comment on above: Non- GFR Calc Hematocrit Auto (Bld) [Volum e fraction]Ordered By: STEVEN BOLES on 07-23-2024 Hematocrit (Bld) [Volume fraction] 35.1 % Low 37-47 [facility] Hemoglobin measurementOrdere d By: STEVEN BOLES on 07-23-2024 Hemoglobin (Bld) [Mass/Vol] 11.5 g/dL Low 12.0-15.0 [facility] Immature granulocytes/100 WB C Auto (Bld)Ordered By: STEVEN BOLES on 07-23-2024 Immature granulocytes/100 WBC (Bld) 0.200 % 0.0-0.9 [facility] Comment on above: IG% - Immature Granu locytes (promyelocytes, myelocytes and metamyelocytes) > 1% indicates that a LEFT SHIFT is Present. Laboratory - Chemistry and C hemistry - challengeOrdered By: STEVEN BOLES on 07-23-2024 AST [Catalytic activity/Vol] 23 U/L 15-37 [facility] Liver Profileon 07-23-2024 Albumin [Mass/Vol] 3.8 g/dL Normal 3.2-5.0 [facility] Comment on above: Performed By: #### L 101.9900, L501.1105, L500.3400, L100.0100, L501.6710 ####[facility] [address] [place], [address] ALK P 61 U/L Normal 45-117 [facility] Comment on above: Performed By: #### L 101.9900, L501.1105, L500.3400, L100.0100, L501.6710 ####[facility] [address] [place], [address] ALT [Catalytic activity/Vol] 28 U/L Normal 13-56 [facility] Comment on above: Performed By: #### L 101.9900, L501.1105, L500.3400, L100.0100, L501.6710 ####[facility] [address] [place], [address] AST [Catalytic activity/Vol] 23 U/L Normal 15-37 [facility] Comment on above: Performed By: #### L 101.9900, L501.1105, L500.3400, L100.0100, L501.6710 ####[facility] [address] [place], [address] Bilirubin [Mass/Vol] 0.40 mg/dL Normal 0.20-1.00 [facility] Comment on above: Result Comment: For patients on eltrombopag therapy, use of Dimension [place] TBIL is not recommended. Performed By: #### L 101.9900, L501.1105, L500.3400, L100.0100, L501.6710 ####[facility] [address] [place], [address] Bilirubin.direct [Mass/Vol] 0.10 mg/dL Normal 0.00-0.30 [facility] Comment on above: Performed By: #### L 101.9900, L501.1105, L500.3400, L100.0100, L501.6710 ####[facility] [address] [place], [address] Globulin (S) [Mass/Vol] 3.7 g/dL Normal 2.2-4.2 [facility] Comment on above: Performed By: #### L 101.9900, L501.1105, L500.3400, L100.0100, L501.6710 ####[facility] [address] [place], [address] T PROT 7.5 g/dL Normal 6.4-8.2 [facility] Comment on above: Performed By: #### L 101.9900, L501.1105, L500.3400, L100.0100, L501.6710 ####[facility] [address] [place], [address] Lymphocytes Auto (Unsp spec) [#/Vol]Ordered By: STEVEN BOLES on 07-23-2024 Lymphocytes (Bld) [#/Vol] 1.81 10*3/uL 0.83-4.51 [facility] Lymphocytes/100 WBC Auto (Un sp spec)Ordered By: STEVEN BOLES on 07-23-2024 Lymphocytes/100 WBC (Bld) 31.9 % 19-41 [facility] MCV (mean corpuscular volume ) determinationOrdered By: STEVEN BOLES on 07-23-2024 MCV (RBC) [Entitic vol] 95.9 fL 81-99 [facility] Mean corpuscular hemoglobin (MCH) determinationOrdered By: STEVEN BOLES on 07-23-2024 MCH (RBC) [Entitic mass] 31.4 pg 27.0-32.0 [facility] Mean corpuscular hemoglobin concentration (MCHC) determinationOrdered By: STEVEN BOLES on 07-23-2024 MCHC (RBC) [Mass/Vol] 32.8 g/dL 32-36 [facility] Mean platelet volume determi nationOrdered By: STEVEN BOLES on 07-23-2024 Platelet mean volume (Bld) [Entitic vol] 9.6 fL 6.2-12.0 [facility] Monocyte percentageOrdered B y: STEVEN BOLES on 07-23-2024 Monocytes/100 WBC (Bld) 8.1 % 0-10 [facility] Neutrophil percentageOrdered By: STEVEN BOLES on 07-23-2024 Neutrophils/100 WBC (Bld) 57.5 % 47-70 [facility] Nucleated red blood cell per centageOrdered By: STEVEN BOLES on 07-23-2024 Nucleated RBC/100 WBC (Bld) [Ratio] 0 % 0-5 [facility] Platelet countOrdered By: KEYONA RAMANA on 07-23-2024 Platelets (Bld) [#/Vol] 329 10*3/uL 150-450 [facility] RBC Auto (Bld) [#/Vol]Ordere d By: STEVEN BOLES on 07-23-2024 RBC (Bld) [#/Vol] 3.66 10*6/uL Low 4.2-5.4 [facility] Serum Creatinine AND GFRon 0 07-23-2024 Creatinine [Mass/Vol] 0.79 mg/dL Normal 0.55-1.02 [facility] Comment on above: Result Comment: The validity of the calculated GFR GFRAA in patients over 70 years has not been determined. Clinical correlation is essential. Performed By: #### L 101.9900, L501.1105, L500.3400, L100.0100, L501.6710 ####[facility] [address] [place], [address] EST GFR - AA 103 mL/min Normal >60 [facility] Comment on above: Result Comment: Afri can [place] GFR Calc Performed By: #### L 101.9900, L501.1105, L500.3400, L100.0100, L501.6710 ####[facility] [address] [place], [address] GFR/1.73 sq M.predicted among non-blacks MDRD (S/P/Bld) [Vol rate/Area] 85 mL/min/{1.73_m2} Normal >60 [facility] Comment on above: Result Comment: Non- GFR Calc Performed By: #### L 101.9900, L501.1105, L500.3400, L100.0100, L501.6710 ####[facility] [address] [place], [address] Serum globulin measurementOr dered By: STEVEN BOLES on 07-23-2024 Globulin (S) [Mass/Vol] 3.7 g/dL 2.2-4.2 [facility] Serum or plasma alanine zuñiga otransferase (ALT) measurementOrdered By: STEVEN BOLES on 07-23-2024 ALT [Catalytic activity/Vol] 28 U/L 13-56 [facility] Serum or plasma albumin sancho urement (mass/volume)Ordered By: STEVEN BOLES on 07-23-2024 Albumin [Mass/Vol] 3.8 g/dL 3.2-5.0 [facility] Serum or plasma alkaline nallely sphatase measurementOrdered By: STEVEN BOLES on 07-23-2024 ALP [Catalytic activity/Vol] 61 U/L 45-117 [facility] Serum or plasma creatinine m easurement (mass/volume)Ordered By: STEVEN BOLES on 07-23-2024 Creatinine [Mass/Vol] 0.79 mg/dL 0.55-1.02 [facility] Comment on above: The validity of the calculated GFR & GFRAA in patients over 70 years has not been determined. Clinical correlation is essential. Total proteinOrdered By: IRENE BOLES on 07-23-2024 Protein [Mass/Vol] 7.5 g/dL 6.4-8.2 [facility] White blood cell (WBC) count Ordered By: STEVEN BOLES on 07-23-2024 WBC (Bld) [#/Vol] 5.7 10*3/uL 4.4-11.0 [facility] Inital Evaluation (1) - PTon 07-03-2024 Inital Evaluation (1) - PT [facility] Physical Therapy [address] [place] [address] / REHABILITATION SERVICES INITIAL EVALUATION MR#: [id number] Acct: [id number] Name: ALMA ADEN Rep #: [id number] : 1980 43 From: Anatoliy Boudreaux DPT Referring Dr.: ISIDRA Avendano Status: REG RCR [facility] SELF PAY INSURANCE Patient's Visit Information Visit Information Visit Information: ALAM ADEN is a 43 year old F [...] and To (more content not included)... Normal [facility] Spine Lumbar (Routine)on Spine Lumbar (Routine) [facility] Imaging Services [address] [place] [address] Spine Lumbar (Routine) MR#: [id number] Acct: [id number] Name: ALMA ADEN Rep #: [id number] : 1980 F 43 From: Abad Juarez MD PCP: Dr. Wyatt Marcelo MD Status: REG CLI Study: Spine Lumbar (Routine) Date of Exam: 05/27/24 Exam# [id number] Ordering Dr: Nimco Gonzalez [id number] STUDY: MRI LUMBAR SPINE WITHOUT CONTRAST REASON [...] Electronically Signed: Abad Juarez MD at 11:23 EST , CC: ISIDRA Avendano; Dr. Wyatt Marcelo MD Gluer And Slicer Hand: Signed Normal [facility] L/S Spine Bending Flex/Cabins 05-10-2024 L/S Spine Bending Flex/Ext [facility] Imaging Services [address] [place] [address] L/S Spine Bending Flex/Ext MR#: [id number] Acct: [id number] Name: ALMA ADEN Rep #: [id number] : 1980 F 43 From: Devin Davis DO PCP: Dr. Wyatt Marcelo MD Status: REG CLI Study: L/S Spine Bending Flex/Ext Date of Exam: 05/10 Exam# [id number] Ordering Dr: Nimco Gonzalez [id number] STUDY: X-RAY - LUMBAR SPINE REASON FOR [...] Signed: Devin Davis DO at 20:14 EDT , CC: ISIDRA Avendano; Dr. 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 Part of today???s visit was documented by [...] on getti (more content not included)... Normal [facility] L/S Spine Min 4 Viewson 04-17 L/S Spine Min 4 Views [facility] Imaging Services [address] [place], [place] [address] L/S Spine Min 4 Views MR#: [id number] Acct: [id number] Name: ALMA ADEN Rep #: [id number] : 1980 F 43 From: Juan R Rasmussen PCP: Dr. Wyatt Marcelo MD Status: REG CLI Study: L/S Spine Min 4 Views Date of Exam: 05/09/24 Exam# [id number] Ordering Dr: Nimco Gonzalez [id number] EXAM: XR LUMBOSACRAL SPINE, 4 OR 5 [...] Vega MD at 1:22 EDT , CC: SIIDRA Avendano; Dr. Wyatt Marcelo MD Gluer And Slicer Hand: Signed Normal [facility] Dexa Bone Density Studyon Dexa Bone Density Study [facility] Imaging Services [address] [place] [address] Dexa Bone Density Study MR#: [id number] Acct: [id number] Name: ALMA ADEN Rep #: [id number] : 1980 F 43 From: Sukhdeep mosqueda MD PCP: Dr. Wyatt Marcelo MD Status: REG [facility] Study: Dexa Bone Density Study Date of Exam: 04/30/24 Exam# [id number] Ordering Dr: Estrellita Coleman C[employer] SAWYER-C [id number] STUDY: DUAL ENERGY X-RAY ABSORPTIOMETRY / DXA [...] CC: ZAFAR Coleman; Dr. Wyatt Marcelo MD Gluer And Slicer Hand: Signed Normal [facility] CBC, Employeeon 04-25-2024 Absolute Lymph 1.71 X10 3/uL Normal 0.83-4.51 [facility] Comment on above: Performed By: #### L 100.0200, L400.0100, L500.2900 ####[facility] [address] [place], [address] Absolute Neut 2.6 X10 3/uL Normal 2.0-7.7 [facility] Comment on above: Performed By: #### L 100.0200, L400.0100, L500.2900 ####[facility] [address] [place], [address] Basophils/100 WBC (Bld) 1.1 % High 0-1 [facility] Comment on above: Performed By: #### L 100.0200, L400.0100, L500.2900 ####[facility] [address] [place], [address] Eosinophils/100 WBC (Bld) 1.7 % Normal 0-5 [facility] Comment on above: Performed By: #### L 100.0200, L400.0100, L500.2900 ####[facility] [address] [place], [address] Erythrocyte distribution width (RBC) [Ratio] 12.0 % Normal 11.6-14.6 [facility] Comment on above: Performed By: #### L 100.0200, L400.0100, L500.2900 ####[facility] [address] [place], [address] Hematocrit (Bld) [Volume fraction] 37.0 % Normal 37-47 [facility] Comment on above: Performed By: #### L 100.0200, L400.0100, L500.2900 ####[facility] [address] [place], [address] Hemoglobin (Bld) [Mass/Vol] 12.0 g/dL Normal 12.0-15.0 [facility] Comment on above: Performed By: #### L 100.0200, L400.0100, L500.2900 ####[facility] [address] [place], [address] Lymphocytes/100 WBC (Bld) 36.5 % Normal 19-41 [facility] Comment on above: Performed By: #### L 100.0200, L400.0100, L500.2900 ####[facility] [address] [place], [address] MCH (RBC) [Entitic mass] 31.3 pg Normal 27.0-32.0 [facility] Comment on above: Performed By: #### L 100.0200, L400.0100, L500.2900 ####[facility] [address] [place], [address] MCHC (RBC) [Mass/Vol] 32.4 g/dL Normal 32-36 [facility] Comment on above: Performed By: #### L 100.0200, L400.0100, L500.2900 ####[facility] [address] [place], [address] MCV (RBC) [Entitic vol] 96.6 fL Normal 81-99 [facility] Comment on above: Performed By: #### L 100.0200, L400.0100, L500.2900 ####[facility] [address] [place], [address] Monocytes/100 WBC (Bld) 6.0 % Normal 0-10 [facility] Comment on above: Performed By: #### L 100.0200, L400.0100, L500.2900 ####[facility] [address] [place], [address] Neutrophils/100 WBC (Bld) 54.3 % Normal 47-70 [facility] Comment on above: Performed By: #### L 100.0200, L400.0100, L500.2900 ####[facility] [address] [place], [address] NRBC # 0.00 10 3/uL Normal 0-5 [facility] Comment on above: Performed By: #### L 100.0200, L400.0100, L500.2900 ####[facility] [address] [place], [address] Nucleated RBC (Bld) [#/Vol] 0 10*3/uL Normal 0-5 [facility] Comment on above: Performed By: #### L 100.0200, L400.0100, L500.2900 ####[facility] [address] [place], [address] Platelet mean volume (Bld) [Entitic vol] 9.2 fL Normal 6.2-12.0 [facility] Comment on above: Performed By: #### L 100.0200, L400.0100, L500.2900 ####[facility] [address] [place], [address] Platelets (Bld) [#/Vol] 308 10*3/uL Normal 150-450 [facility] Comment on above: Performed By: #### L 100.0200, L400.0100, L500.2900 ####[facility] [address] [place], [address] RBC (Bld) [#/Vol] 3.83 10*6/uL Low 4.2-5.4 [facility] Comment on above: Performed By: #### L 100.0200, L400.0100, L500.2900 ####[facility] [address] [place], [address] RDW SD 42.5 fl Normal 35.1-43.9 [facility] Comment on above: Performed By: #### L 100.0200, L400.0100, L500.2900 ####[facility] [address] [place], [address] WBC (Bld) [#/Vol] 4.7 10*3/uL Normal 4.4-11.0 [facility] Comment on above: Performed By: #### L 100.0200, L400.0100, L500.2900 ####[facility] [address] [place], [address] Employee Profileon 4 Albumin [Mass/Vol] 3.7 g/dL Normal 3.2-5.0 [facility] Comment on above: Performed By: #### L 100.0200, L400.0100, L500.2900 ####[facility] [address] [place], [address] Albumin/Globulin [Mass ratio] 1.0 {ratio} Normal 0.9-2.4 [facility] Comment on above: Performed By: #### L 100.0200, L400.0100, L500.2900 ####[facility] [address] [place], [address] ALK P 59 U/L Normal 45-117 [facility] Comment on above: Performed By: #### L 100.0200, L400.0100, L500.2900 ####[facility] [address] [place], [address] ALT [Catalytic activity/Vol] 19 U/L Normal 13-56 [facility] Comment on above: Performed By: #### L 100.0200, L400.0100, L500.2900 ####[facility] [address] [place], [address] AST [Catalytic activity/Vol] 13 U/L Low 15-37 [facility] Comment on above: Performed By: #### L 100.0200, L400.0100, L500.2900 ####[facility] [address] [place], [address] Bilirubin [Mass/Vol] 0.30 mg/dL Normal 0.20-1.00 [facility] Comment on above: Result Comment: For patients on eltrombopag therapy, use of Dimension [place] TBIL is not recommended. Performed By: #### L 100.0200, L400.0100, L500.2900 ####[facility] [address] [place], [address] Bilirubin.direct [Mass/Vol] 0.08 mg/dL Normal 0.00-0.30 [facility] Comment on above: Performed By: #### L 100.0200, L400.0100, L500.2900 ####[facility] [address] [place], [address] BUN/CRE 16.3 RATIO Normal 10-20 [facility] Comment on above: Performed By: #### L 100.0200, L400.0100, L500.2900 ####[facility] [address] [place], [address] CA,Total 9.9 mg/dL Normal 8.5-10.1 [facility] Comment on above: Performed By: #### L 100.0200, L400.0100, L500.2900 ####[facility] [address] [place], [address] Chloride [Moles/Vol] 107 mmol/L Normal 98-107 [facility] Comment on above: Performed By: #### L 100.0200, L400.0100, L500.2900 ####[facility] [address] [place], [address] CHOL:HDL 3.50 Normal [facility] Comment on above: Performed By: #### L 100.0200, L400.0100, L500.2900 ####[facility] [address] [place], [address] Cholesterol [Mass/Vol] 227 mg/dL High 200 [facility] Comment on above: Result Comment: <200 mg/dL Desirable 200-240 mg/dL Borderline >240 mg/dL High Risk Performed By: #### L 100.0200, L400.0100, L500.2900 ####[facility] [address] [place], [address] Cholesterol in HDL [Mass/Vol] 65 mg/dL Normal [facility] Comment on above: Result Comment: The drugs N-Acetylcysteine and Metamizole may falsely depress this assay. Reference Range HDL <40 mg/dL Low HDL Cholesterol HDL >or= 60 mg/dL High HDL Cholesterol Performed By: #### L 100.0200, L400.0100, L500.2900 ####[facility] [address] [place], [address] Cholesterol in LDL [Mass/Vol] 136 mg/dL High 0-130 [facility] Comment on above: Performed By: #### L 100.0200, L400.0100, L500.2900 ####[facility] [address] [place], [address] Cholesterol in VLDL [Mass/Vol] 26 mg/dL Normal 5-40 [facility] Comment on above: Performed By: #### L 100.0200, L400.0100, L500.2900 ####[facility] [address] [place], [address] CO2 [Moles/Vol] 25.0 mmol/L Normal 21.0-32.0 [facility] Comment on above: Performed By: #### L 100.0200, L400.0100, L500.2900 ####[facility] [address] [place], [address] Creatinine [Mass/Vol] 0.74 mg/dL Normal 0.55-1.02 [facility] Comment on above: Result Comment: The validity of the calculated GFR GFRAA in patients over 70 years has not been determined. Clinical correlation is essential. Performed By: #### L 100.0200, L400.0100, L500.2900 ####[facility] [address] [place], [address] EST GFR - AA 112 mL/min Normal >60 [facility] Comment on above: Result Comment: Afri can [place] GFR Calc Performed By: #### L 100.0200, L400.0100, L500.2900 ####[facility] [address] [place], [address] GAP 7 Normal 5-15 [facility] Comment on above: Performed By: #### L 100.0200, L400.0100, L500.2900 ####[facility] [address] [place], [address] GFR/1.73 sq M.predicted among non-blacks MDRD (S/P/Bld) [Vol rate/Area] 92 mL/min/{1.73_m2} Normal >60 [facility] Comment on above: Result Comment: Non- GFR Calc Performed By: #### L 100.0200, L400.0100, L500.2900 ####[facility] [address] [place], [address] Globulin (S) [Mass/Vol] 3.7 g/dL Normal 2.2-4.2 [facility] Comment on above: Performed By: #### L 100.0200, L400.0100, L500.2900 ####[facility] [address] [place], [address] Glucose [Mass/Vol] 115 mg/dL High 74-106 [facility] Comment on above: Result Comment: Fast ing Glucose result from 100 to 125 mg/dL suggests IMPAIRED HOMEOSTASIS per A.D.A. criteria. Performed By: #### L 100.0200, L400.0100, L500.2900 ####[facility] [address] [place], [address] LDH 219 U/L Normal 84-246 [facility] Comment on above: Performed By: #### L 100.0200, L400.0100, L500.2900 ####[facility] [address] [place], [address] Phosphate [Mass/Vol] 3.0 mg/dL Normal 2.5-4.9 [facility] Comment on above: Performed By: #### L 100.0200, L400.0100, L500.2900 ####[facility] [address] [place], [address] Potassium [Moles/Vol] 4.2 mmol/L Normal 3.5-5.1 [facility] Comment on above: Performed By: #### L 100.0200, L400.0100, L500.2900 ####[facility] [address] [place], [address] Sodium [Moles/Vol] 139 mmol/L Normal 136-145 [facility] Comment on above: Performed By: #### L 100.0200, L400.0100, L500.2900 ####[facility] [address] [place], [address] T PROT 7.4 g/dL Normal 6.4-8.2 [facility] Comment on above: Performed By: #### L 100.0200, L400.0100, L500.2900 ####[facility] [address] [place], [address] Triglyceride [Mass/Vol] 131 mg/dL Normal [facility] Comment on above: Result Comment: The drugs N-Acetylcysteine and Metamizole may falsely depress this assay. Serum Triglycerides Reference Interval Normal <150 mg/dL Borderline high 150 - 199 mg/dL High 200 - 499 mg/dL Very High > or = 500 mg/dL Performed By: #### L 100.0200, L400.0100, L500.2900 ####[facility] [address] [place], [address] Urea nitrogen [Mass/Vol] 12 mg/dL Normal 7-18 [facility] Comment on above: Performed By: #### L 100.0200, L400.0100, L500.2900 ####[facility] [address] [place], [address] URIC 5.5 mg/dL Normal 2.6-6.0 [facility] Comment on above: Result Comment: The drugs N-Acetylcysteine and Metamizole may falsely depress this assay. Performed By: #### L 100.0200, L400.0100, L500.2900 ####[facility] [address] [place], [address] Internal Medicine Office Vis aisha 04-25-2024 Internal Medicine Office Visit [facility] [place] [address] [place] [address] OFFICE VISIT Date of Service: 04/25/24 MR#: [id number] Acct: [id number] Name: ALMA ADEN Omar Rep #: [id number] : 1980 Provider: Dr. 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 No acute concerns at this time. Following up with [employer] and due to her history of hyperparathyroidism, bone density scan was ordered. Positive family history of osteoporosis in her mother. Also history of chronic intermittent steroid use. No recent fractures. A1c done recently at 5.9 up from 5.8. Had been on compounded semaglutide in which she lost 30 pounds however due to cost discontinued. Continues to follow-up with rheumatology at the [facility] (more content not included)... Normal [facility] Urinalysis, Employeeon 04-25 BILIRUBIN URINE Negative Normal Negative [facility] Comment on above: Order Comment: CLEAN CATCH Performed By: #### L 100.0200, L400.0100, L500.2900 ####[facility] [address] [place], [address] Clarity (U) Clear Normal Clear [facility] Comment on above: Order Comment: CLEAN CATCH Performed By: #### L 100.0200, L400.0100, L500.2900 ####[facility] [address] [place], [address] Color (U) Yellow Normal Yellow [facility] Comment on above: Order Comment: CLEAN CATCH Performed By: #### L 100.0200, L400.0100, L500.2900 ####[facility] [address] [place], [address] GLUCOSE, UR Normal Normal Normal [facility] Comment on above: Order Comment: CLEAN CATCH Performed By: #### L 100.0200, L400.0100, L500.2900 ####[facility] [address] [place], [address] KETONE UR Negative Normal Negative [facility] Comment on above: Order Comment: CLEAN CATCH Performed By: #### L 100.0200, L400.0100, L500.2900 ####[facility] [address] [place], [address] LEUK ESTERASE Negative Normal Negative [facility] Comment on above: Order Comment: CLEAN CATCH Performed By: #### L 100.0200, L400.0100, L500.2900 ####[facility] [address] [place], [address] Nitrite Ql (U) Negative Normal Negative [facility] Comment on above: Order Comment: CLEAN CATCH Performed By: #### L 100.0200, L400.0100, L500.2900 ####[facility] [address] [place], [address] OCCULT BLOOD-UR Negative Normal Negative [facility] Comment on above: Order Comment: CLEAN CATCH Performed By: #### L 100.0200, L400.0100, L500.2900 ####[facility] [address] [place], [address] pH UR 6.5 Normal 5.0 - 8.0 [facility] Comment on above: Order Comment: CLEAN CATCH Performed By: #### L 100.0200, L400.0100, L500.2900 ####[facility] [address] [place], [address] PROT DIPSTX Negative Normal Negative [facility] Comment on above: Order Comment: CLEAN CATCH Performed By: #### L 100.0200, L400.0100, L500.2900 ####[facility] [address] [place], [address] SP.GR. DIPSTX 1.010 Normal 1.002-1.030 [facility] Comment on above: Order Comment: CLEAN CATCH Performed By: #### L 100.0200, L400.0100, L500.2900 ####[facility] [address] [place], [address] UROBILI Normal Normal Normal [facility] Comment on above: Order Comment: CLEAN CATCH Performed By: #### L 100.0200, L400.0100, L500.2900 ####[facility] [address] [place], [address] SCRN MAMM (CAD)W/CHRISTOPHER BILATo n 04-02-2024 SCRN MAMM (CAD)W/CHRISTOPHER BILAT [facility] Imaging Services [address] [place] [address] SCRN MAMM (CAD)W/CHRISTOPHER BILAT MR#: [id number] Acct: [id number] Name: ALMA ADEN Rep #: [id number] : 1980 F 43 From: Sukhdeep mosqueda MD PCP: Dr. Wyatt Marcelo MD Status: REG CLI Study: SCRN MAMM (CAD)W/CHRISTOPHER BILAT Date of Exam: 03/17 02/06 Exam# [id number] Ordering Dr: Estrellita Coleman [id number] MAMMOGRAPHY - BILATERAL SCREENING REASON FOR EXAM: [...] delay biopsy of a clinically suspicious abnormality. [id number] Electronically Signed: Sukhdeep Manzano MD at 9:37 EDT , CC: ZAFAR Coleman; Dr. Wyatt Marcelo MD Gluer And Slicer Hand: Signed Normal [facility] CBC W/Diff, Automatedon 03-17 Absolute Lymph 2.40 X10 3/uL Normal 0.83-4.51 [facility] Comment on above: Performed By: #### L 506.0400, L501.9520 #### [facility] [address] [place], [address] Absolute Neut 2.7 X10 3/uL Normal 2.0-7.7 [facility] Comment on above: Performed By: #### L 506.0400, L501.9520 #### [facility] [address] [place], [address] Basophils/100 WBC (Bld) 0.7 % Normal 0-1 [facility] Comment on above: Performed By: #### L 506.0400, L501.9520 #### [facility] [address] [place], [address] Eosinophils/100 WBC (Bld) 2.4 % Normal 0-5 [facility] Comment on above: Performed By: #### L 506.0400, L501.9520 #### [facility] [address] [place], [address] Erythrocyte distribution width (RBC) [Ratio] 12.2 % Normal 11.6-14.6 [facility] Comment on above: Performed By: #### L 506.0400, L501.20 #### [facility] [address] [place], [address] Hematocrit (Bld) [Volume fraction] 38.3 % Normal 37-47 [facility] Comment on above: Performed By: #### L 506.0400, L501.20 #### [facility] [address] [place], [address] Hemoglobin (Bld) [Mass/Vol] 12.2 g/dL Normal 12.0-15.0 [facility] Comment on above: Performed By: #### L 506.0400, L5.20 #### [facility] [address] [place], [address] IG% 0.200 Normal 0.0-0.9 [facility] Comment on above: Result Comment: IG% - Immature Granulocytes (promyelocytes, myelocytes and metamyelocytes) > 1% indicates that a LEFT SHIFT is Present. Performed By: #### L 506.0400, L5.20 #### [facility] [address] [place], [address] Lymphocytes/100 WBC (Bld) 41.8 % High 19-41 [facility] Comment on above: Performed By: #### L 506.0400, L5.20 #### [facility] [address] [place], [address] MCH (RBC) [Entitic mass] 31.3 pg Normal 27.0-32.0 [facility] Comment on above: Performed By: #### L 506.0400, L5.20 #### [facility] [address] [place], [address] MCHC (RBC) [Mass/Vol] 31.9 g/dL Low 32-36 [facility] Comment on above: Performed By: #### L 506.0400, L5.20 #### [facility] [address] [place], [address] MCV (RBC) [Entitic vol] 98.2 fL Normal 81-99 [facility] Comment on above: Performed By: #### L 506.0400, L5.20 #### [facility] [address] [place], [address] Monocytes/100 WBC (Bld) 7.8 % Normal 0-10 [facility] Comment on above: Performed By: #### L 506.0400, L5.20 #### [facility] [address] [place], [address] Neutrophils/100 WBC (Bld) 47.1 % Normal 47-70 [facility] Comment on above: Performed By: #### L 506.0400, L501.20 #### [facility] [address] [place], [address] Nucleated RBC (Bld) [#/Vol] 0 10*3/uL Normal 0-5 [facility] Comment on above: Performed By: #### L 506.0400, L501.9520 #### [facility] [address] [place], [address] Platelet mean volume (Bld) [Entitic vol] 9.7 fL Normal 6.2-12.0 [facility] Comment on above: Performed By: #### L 506.0400, L5.20 #### [facility] [address] [place], [address] Platelets (Bld) [#/Vol] 398 10*3/uL Normal 150-450 [facility] Comment on above: Performed By: #### L 506.0400, L5.20 #### [facility] [address] [place], [address] RBC (Bld) [#/Vol] 3.90 10*6/uL Low 4.2-5.4 [facility] Comment on above: Performed By: #### L 506.0400, L5.20 #### [facility] [address] [place], [address] RDW SD 44.2 fl High 35.1-43.9 [facility] Comment on above: Performed By: #### L 506.0400, L5.20 #### [facility] [address] [place], [address] WBC (Bld) [#/Vol] 5.7 10*3/uL Normal 4.4-11.0 [facility] Comment on above: Performed By: #### L 506.0400, L501.9520 #### [facility] [address] [place], [address] CRPon 04-01-2024 C-REACTIVE PROT 5.25 mg/L High 0.0-3.0 [facility] Comment on above: Result Comment: C-Re active Protein (CRP) provides useful information for the diagnosis, therapy and monitoring of inflammatory processes and associated diseases. For the evaluation of Relative Risk for Cardiovascular Disease, a High Sensitivity CRP (HSCRP) should be ordered. Performed By: #### L 506.0400, L501.9520 #### [facility] [address] [place], [address] Erythrocyte Sed Rateon 04-01 SED RATE 15 mm/hr Normal 0-30 [facility] Comment on above: Performed By: #### L 506.0400, L501.9520 #### [facility] [address] [place], [address] Liver Profileon 04-01-2024 Albumin [Mass/Vol] 3.7 g/dL Normal 3.2-5.0 [facility] Comment on above: Performed By: #### L 506.0400, L501.9520 #### [facility] [address] [place], [address] ALK P 59 U/L Normal 45-117 [facility] Comment on above: Performed By: #### L 506.0400, L501.9520 #### [facility] [address] [place], [address] ALT [Catalytic activity/Vol] 22 U/L Normal 13-56 [facility] Comment on above: Performed By: #### L 506.0400, L501.9520 #### [facility] [address] [place], [address] AST [Catalytic activity/Vol] 13 U/L Low 15-37 [facility] Comment on above: Performed By: #### L 506.0400, L501.9520 #### [facility] [address] [place], [address] Bilirubin [Mass/Vol] 0.40 mg/dL Normal 0.20-1.00 [facility] Comment on above: Result Comment: For patients on eltrombopag therapy, use of Dimension [place] TBIL is not recommended. Performed By: #### L 506.0400, L501.9520 #### [facility] [address] [place], [address] Bilirubin.direct [Mass/Vol] 0.08 mg/dL Normal 0.00-0.30 [facility] Comment on above: Performed By: #### L 506.0400, L501.9520 #### [facility] [address] [place], [address] Globulin (S) [Mass/Vol] 3.8 g/dL Normal 2.2-4.2 [facility] Comment on above: Performed By: #### L 506.0400, L501.9520 #### [facility] [address] [place], [address] T PROT 7.5 g/dL Normal 6.4-8.2 [facility] Comment on above: Performed By: #### L 506.0400, L501.9520 #### [facility] [address] [place], [address] Serum Creatinine AND GFRon 0 - Creatinine [Mass/Vol] 0.85 mg/dL Normal 0.55-1.02 [facility] Comment on above: Result Comment: The validity of the calculated GFR GFRAA in patients over 70 years has not been determined. Clinical correlation is essential. Performed By: #### L 506.0400, L501.9520 #### [facility] [address] [place], [address] EST GFR - AA 95 mL/min Normal >60 [facility] Comment on above: Result Comment: Afri can [place] GFR Calc Performed By: #### L 506.0400, L501.9520 #### [facility] [address] [place], [place], [address] GFR/1.73 sq M.predicted among non-blacks MDRD (S/P/Bld) [Vol rate/Area] 79 mL/min/{1.73_m2} Normal >60 [facility] Comment on above: Result Comment: Non- GFR Calc Performed By: #### L 506.0400, L501.9520 #### [facility] [address] [place], [place], [address] Slasher Runner Office Visit Reporton 03-20-2024 Slasher Runner Office Visit Report [facility] [address], [address] [place] [address] OFFICE VISIT Date of Service: 03/20/24 MR#: [id number] Acct: [id number] Name: ALMA ADEN Omar Rep #: [id number] : 1980 Provider: ZAFAR Rothman Age/Sex: 43/F Location[place] [facility] [place] Status: Signed Intake Vital Signs 01/18/24 12:05 03/20/24 09:35 03/20/24 09:41 Height 5 ft 8 in 5 ft 8 in 5 ft 8 in Weight: 372 lb BMI 56.5 BP 130/90 H Intake Visit Reasons: Annual ([employer]) Chief Complaint: annual Is patient in pain?: [...] No : No Control Method: total hyst [facility] Medical History Borderline type 2 diabetes [...] at home: Yes 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 Date Name GA/Weeks Outcome Route Bth Weight Infant Gen Labor Lgth Anesthesia Del Locatn Provider FOB Unknown 2006 Carrie 40 live - full term Unknown 2008 Daryl 40 live - full term HPI Encounter for routine gynecological examination Details: ALMA ADEN is a 43 year old who presents for annual exam. She reports no issues or concerns today. Last PAP: 2018; s/p hysterectomy. History of (more content not included)... Normal [facility] T4 Free Directon 02-13-2024 T4 FREE DIRECT 1.20 ng/dL Normal 0.76-1.46 [facility] Comment on above: Performed By: #### L 506.0400, L501.9520 #### [facility] [address] [place], [address] Thyroid Stim Hormone (TSH)on 02-13-2024 TSH 1.68 uIU/mL Normal 0.358-3.74 [facility] Comment on above: Performed By: #### L 506.0400, L501.9520 #### [facility] [address] [place], [address] Internal Medicine Office Vis aisha 02-06-2024 Internal Medicine [facility] Visit [facility] [address] [place] [address] OFFICE VISIT Date of Service: 02/06/24 MR#: [id number] Acct: [id number] Name: ALMA ADEN Rep #: [id number] : 1980 Provider: ZAFAR garcia Age/Sex: 43/F [place] [facility] [place] Status: Signed Intake Vital Signs 01/18/24 12:05 [...] Lexapro) Adverse Reaction (Verified 01/18/24 12:06) [facility] Medical History Borderline type 2 diabetes mellitus [...] at home: Yes 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 Normal [facility] Basophil percentageOrdered B y: Liliana Bangura on 10-17-2023 Hemoglobin (Bld) [Mass/Vol] 13.1 g/dL 12.0-15.0 [facility] WBC (Bld) [#/Vol] 6.5 10*3/uL 4.4-11.0 [facility] Determination of erythrocyte mean corpuscular volume (MCV)Ordered By: Liliana Bangura on 10-17-2023 MCV (RBC) [Entitic vol] 94.8 fL 81-99 [facility] Erythrocyte distribution wid th ratioOrdered By: Liliana Bangura on 10-17-2023 Erythrocyte distribution width (RBC) [Ratio] 12.5 % 11.6-14.6 [facility] Erythrocyte distribution wid th standard deviationOrdered By: Liliana Bangura on 10-17-2023 Erythrocyte distribution width (RBC) [Entitic vol] 43.4 fL 35.1-43.9 [facility] Hematocrit Auto (Bld) [Volum e fraction]Ordered By: Liliana Bangura on 10-17-2023 Hematocrit (Bld) [Volume fraction] 40.5 % 37-47 [facility] Iron measurement (mass/mass) Ordered By: Liliana Bangura on 10-17-2023 Iron (Unsp spec) [Mass/Mass] 69 ug/dL 50-170 [facility] - Chemistry and C hemistry - challengeOrdered By: Liliana Bangura on 10-17-2023 Cobalamin (Vitamin B12) [Mass/Vol] 890 pg/mL 211-911 [facility] Ferritin [Mass/Vol] 72 ng/mL 8-252 [facility] - Hematology and Cell countsOrdered By: Liliana Bangura on 10-17-2023 MCH (RBC) [Entitic mass] 30.7 pg 27.0-32.0 [facility] MCHC (RBC) [Mass/Vol] 32.3 g/dL 32-36 [facility] Platelet mean volume (Bld) [Entitic vol] 9.2 fL 6.2-12.0 [facility] Platelets (Bld) [#/Vol] 336 10*3/uL 150-450 [facility] No Panel InformationOrdered By: Liliana Sveta on 10-17-2023 Total Iron Binding Capacity 394 ug/dL 250-450 [facility] RBC Auto (Bld) [#/Vol]Ordere d By: Liliana Sveta on 10-17-2023 RBC (Bld) [#/Vol] 4.27 10*6/uL 4.2-5.4 [facility] No Panel InformationOrdered By: STEVEN BOLES on 10-12-2023 Hepatitis B Surface Antigen Non-Reactive Nonreactive [facility] Hepatitis C Antibody Non-Reactive Nonreactive [facility] Comment on above: Non Reactive: < 0.8 Equivocal: >/= 0.8 to < 1.0 Reactive: >/= 1.0The CDC requires that a reactive/equivocal HCV antibody result be sent out for confirmation. HCV Quant by PCR testing. Qualitative QuantiFERON-TB g old in tube testOrdered By: STEVEN BOLES on 10-12-2023 M. tuberculosis tuberculin stim IFN-g Ql (Bld) 0.07 IU/mL . [facility] Serum hepatitis B virus core antibody detectionOrdered By: STEVEN BOLES on 10-12-2023 HBV core Ab Ql (S) Negative Negative [facility] Comment on above: Performed at: [place] [id number] Director: Levi Covarrubias PhD, Phone: [phone] Thin prep Papanicolaou smear with manual screeningOrdered By: STEVEN BOLES on 10-12-2023 Thin prep Papanicolaou smear with manual screening Comment . [facility] Comment on above: QuantiFERON-TB Gold [...] smear with manual screening 0.06 IU/mL . [facility] Thin prep Papanicolaou smear with manual screening > 10.00 IU/mL . [facility] Thin prep Papanicolaou smear with manual screening Negative Negative [facility] Comment on above: No response [...] Auto (Unsp spec) [#/Vol] 3.56 10*3/uL 0.83-4.51 [facility] Automated lymphocyte count a s percentage of total leukocyteson 08-17-2023 Lymphocytes/100 WBC Auto (Unsp spec) 32.5 % 19-41 [facility] Basophil percentageon 2023 Basophils/100 WBC (Bld) 0.7 % 0-1 [facility] Bilirubin [Mass/Vol] 0.20 mg/dL 0.20-1.00 [facility] Comment on above: For patients on eltr ombopag therapy, use of Dimension [place] TBIL is not recommended. Eosinophils/100 WBC (Bld) 1.3 % 0-5 [facility] Hemoglobin (Bld) [Mass/Vol] 11.5 g/dL 12.0-15.0 [facility] Monocytes/100 WBC (Bld) 6.8 % 0-10 [facility] Neutrophils (Bld) [#/Vol] 6.4 10*3/uL 2.0-7.7 [facility] Neutrophils/100 WBC (Bld) 58.2 % 47-70 [facility] Protein [Mass/Vol] 7.4 g/dL 6.4-8.2 [facility] WBC (Bld) [#/Vol] 11.0 10*3/uL 4.4-11.0 [facility] Determination of erythrocyte mean corpuscular volume (MCV)on 08-17-2023 MCV (RBC) [Entitic vol] 97.3 fL 81-99 [facility] Direct bilirubinon Bilirubin.direct [Mass/Vol] 0.08 mg/dL 0.00-0.30 [facility] Erythrocyte distribution wid th ratioon 08-17-2023 Erythrocyte distribution width (RBC) [Ratio] 13.1 % 11.6-14.6 [facility] Erythrocyte distribution wid th standard deviationon 08-17-2023 Erythrocyte distribution width (RBC) [Entitic vol] 46.6 fL 35.1-43.9 [facility] Erythrocyte sedimentation ra avel 08-17-2023 ESR (Bld) [Velocity] 11 mm/h 0-30 [facility] Hematocrit Auto (Bld) [Volum e fraction]on 08-17-2023 Hematocrit (Bld) [Volume fraction] 36.5 % 37-47 [facility] Immature granulocytes/100 WB C Auto (Bld)on 08-17-2023 Immature granulocytes/100 WBC (Bld) 0.500 % 0.0-0.9 [facility] Comment on above: IG% - Immature Granu locytes (promyelocytes, myelocytes and metamyelocytes) > 1% indicates that a LEFT SHIFT is Present. Laboratory - Chemistry and C hemistry - challengeon 08-17-2023 ALP [Catalytic activity/Vol] 73 U/L 45-117 [facility] ALT [Catalytic activity/Vol] 46 U/L 13-56 [facility] Globulin (S) [Mass/Vol] 3.8 g/dL 2.2-4.2 [facility] Laboratory - Hematology and Cell countson 08-17-2023 MCH (RBC) [Entitic mass] 30.7 pg 27.0-32.0 [facility] MCHC (RBC) [Mass/Vol] 31.5 g/dL 32-36 [facility] Nucleated RBC/100 WBC (Bld) [Ratio] 0 % 0-5 [facility] Platelets (Bld) [#/Vol] 306 10*3/uL 150-450 [facility] No Panel Informationon 08-17 C-Reactive Protein Extended Range 4.60 mg/L 0.0-3.0 [facility] Comment on above: C-Reactive Protein ( CRP) provides useful information for thediagnosis, therapy and monitoring of inflammatory processesand associated diseases. For the evaluation of Relative Riskfor Cardiovascular Disease, a High Sensitivity CRP (HSCRP)should be ordered. Estimated GFR (MDRD) Amer 91 mL/min >60 [facility] Comment on above: GFR Calc Estimated GFR (MDRD) Non-Af Amer 76 mL/min >60 [facility] Comment on above: Non- GFR Calc Platelet mean volume Cedric-Ec ker (Bld) [Entitic vol]on 08-17-2023 Platelet mean volume (Bld) [Entitic vol] 8.7 fL 6.2-12.0 [facility] RBC Auto (Bld) [#/Vol]on RBC (Bld) [#/Vol] 3.75 10*6/uL 4.2-5.4 [facility] Serum or plasma creatinine m easurement (mass/volume)on 08-17-2023 Creatinine [Mass/Vol] 0.88 mg/dL 0.55-1.02 [facility] Comment on above: The validity of the calculated GFR & GFRAA in patients over 70 years has not been determined. Clinical correlation is essential. Thin prep Papanicolaou smear with manual screeningon 08-17-2023 Thin prep Papanicolaou smear with manual screening 3.6 g/dL 3.2-5.0 [facility] Thin prep Papanicolaou smear with manual screening 17 U/L 15-37 [facility] Absolute lymphocyte countOrd ered By: Cali Lou on 06-16-2023 Lymphocytes Auto (Unsp spec) [#/Vol] 1.93 10*3/uL 0.83-4.51 [facility] Basophil percentageOrdered B y: Cali Lou on 06-16-2023 Basophils/100 WBC (Bld) 0.5 % 0-1 [facility] Bilirubin [Mass/Vol] 0.30 mg/dL 0.20-1.00 [facility] Comment on above: For patients on eltr ombopag therapy, use of Dim[place] TBIL is not recommended. Chloride [Moles/Vol] 105 mmol/L 98-107 [facility] Eosinophils/100 WBC (Bld) 2.2 % 0-5 [facility] Glucose [Mass/Vol] 80 mg/dL 74-106 [facility] Neutrophils (Bld) [#/Vol] 2.9 10*3/uL 2.0-7.7 [facility] Neutrophils/100 WBC (Bld) 52.2 % 47-70 [facility] Potassium [Moles/Vol] 4.0 mmol/L 3.5-5.1 [facility] Protein [Mass/Vol] 7.2 g/dL 6.4-8.2 [facility] Sodium [Moles/Vol] 136 mmol/L 136-145 [facility] WBC (Bld) [#/Vol] 5.6 10*3/uL 4.4-11.0 [facility] Blood erythrocytes count (nu mber/volume)Ordered By: Cali Lou on 06-16-2023 RBC (Bld) [#/Vol] 3.91 10*6/uL 4.2-5.4 [facility] Blood hemoglobin measurement (mass/volume)Ordered By: Cali Lou on 06-16-2023 Hemoglobin (Bld) [Mass/Vol] 12.1 g/dL 12.0-15.0 [facility] Blood lymphocytes/100 leukoc ytesOrdered By: Cali Lou on 06-16-2023 Lymphocytes/100 WBC (Bld) 34.6 % 19-41 [facility] Blood monocytes/100 leukocyt esOrdered By: Cali Lou on 06-16-2023 Monocytes/100 WBC (Bld) 10.1 % 0-10 [facility] Blood platelet mean volumeOr dered By: Cali Lou on 06-16-2023 Platelet mean volume (Bld) [Entitic vol] 9.3 fL 6.2-12.0 [facility] Determination of erythrocyte mean corpuscular volume (MCV)Ordered By: Cali Lou on 06-16-2023 MCV (RBC) [Entitic vol] 96.2 fL 81-99 [facility] Direct bilirubinOrdered By: Cali Lou on 06-16-2023 Bilirubin.direct [Mass/Vol] 0.08 mg/dL 0.00-0.30 [facility] Hematocrit Auto (Bld) [Volum e fraction]Ordered By: Cali Lou on 06-16-2023 Hematocrit (Bld) [Volume fraction] 37.6 % 37-47 [facility] Laboratory - Chemistry and C hemistry - challengeOrdered By: Cali Lou on 06-16-2023 ALP [Catalytic activity/Vol] 54 U/L 45-117 [facility] ALT [Catalytic activity/Vol] 33 U/L 13-56 [facility] CO2 [Moles/Vol] 27.0 mmol/L 21.0-32.0 [facility] Globulin (S) [Mass/Vol] 3.5 g/dL 2.2-4.2 [facility] Urea nitrogen/Creatinine [Mass ratio] 13.2 mg/mg 10-20 [facility] Laboratory - Hematology and Cell countsOrdered By: Cali Lou on 06-16-2023 Erythrocyte distribution width (RBC) [Entitic vol] 46.5 fL 35.1-43.9 [facility] Erythrocyte distribution width (RBC) [Ratio] 13.2 % 11.6-14.6 [facility] Immature granulocytes/100 WBC (Bld) 0.400 % 0.0-0.9 [facility] Comment on above: IG% - Immature Granu locytes (promyelocytes, myelocytes and metamyelocytes) > 1% indicates that a LEFT SHIFT is Present. MCH (RBC) [Entitic mass] 30.9 pg 27.0-32.0 [facility] Nucleated RBC/100 WBC (Bld) [Ratio] 0 % 0-5 [facility] MCHC Auto (RBC) [Mass/Vol]Or dered By: Cali Lou on 06-16-2023 MCHC (RBC) [Mass/Vol] 32.2 g/dL 32-36 [facility] No Panel InformationOrdered By: Cali Lou on 06-16-2023 Estimated GFR (MDRD) Amer 108 mL/min >60 [facility] Comment on above: GFR Calc Estimated GFR (MDRD) Non-Af Amer 89 mL/min >60 [facility] Comment on above: Non- GFR Calc Parathyroid Hormone (Intact) 113.6 pg/mL 18.4-80.1 [facility] Thyroid Stimulating Hormone (TSH) 1.93 uIU/mL 0.358-3.74 [facility] Vitamin D 25-Hydroxy 40.8 ng/mL [facility] Comment on above: Vitamin D 25(OH) Sta tus Range Deficiency <20 ng/mL (50nmol/L) Insufficiency 20 - 30 ng/mL (50 - 75 nmol/L) Sufficiency 30 - 100 ng/mL (75 - 250 nmol/L) Toxicity >100 ng/mL (>250 nmol/L) Platelets bldOrdered By: Nito Lou on 06-16-2023 Platelets (Bld) [#/Vol] 334 10*3/uL 150-450 [facility] Serum or plasma albumin sancho urement (mass/volume)Ordered By: Cali Lou on 06-16-2023 Albumin [Mass/Vol] 3.7 g/dL 3.2-5.0 [facility] Serum or plasma albumin/glob ulin mass ratioOrdered By: Cali Lou on 06-16-2023 Albumin/Globulin [Mass ratio] 1.1 {ratio} 0.9-2.4 [facility] Serum or plasma calcium sancho urement (mass/volume)Ordered By: Cali Lou on 06-16-2023 Calcium [Mass/Vol] 9.0 mg/dL 8.5-10.1 [facility] Serum or plasma creatinine m easurement (mass/volume)Ordered By: Cali Lou on 06-16-2023 Creatinine [Mass/Vol] 0.76 mg/dL 0.55-1.02 [facility] Comment on above: The validity of the calculated GFR & GFRAA in patients over 70 years has not been determined. Clinical correlation is essential. Serum or plasma urea nitroge n measurement (mass/volume)Ordered By: Cali Lou on 06-16-2023 Urea nitrogen [Mass/Vol] 10 mg/dL 7-18 [facility] Thin prep Papanicolaou smear with manual screeningOrdered By: Cali Lou on 06-16-2023 Thin prep Papanicolaou smear with manual screening 19 U/L 15-37 [facility] Thin prep Papanicolaou smear with manual screening 4 5-15 [facility] Whole blood hemoglobin A1c/t otal hemoglobin ratio (mass fraction)Ordered By: Wyatt Marcelo on 06-16-2023 HbA1c (Bld) [Mass fraction] 5.8 % 3.8-5.6 [facility] Comment on above: Normal < 5.7 % Predi abetic 5.7 - 6.4 % Diabetic >or= 6.5 % Please note range changes. Absolute lymphocyte countOrd ered By: Kane Fisher on 06-11-2023 Lymphocytes Auto (Unsp spec) [#/Vol] 0.54 10*3/uL 0.83-4.51 [facility] Basophil percentageOrdered B y: Kane Fisher on 06-11-2023 Basophils/100 WBC (Bld) 0.3 % 0-1 [facility] Chloride [Moles/Vol] 104 mmol/L 98-107 [facility] Eosinophils/100 WBC (Bld) 1.0 % 0-5 [facility] Glucose [Mass/Vol] 105 mg/dL 74-106 [facility] Comment on above: Fasting Glucose resu lt from 100 to 125 mg/dL suggests IMPAIRED HOMEOSTASIS per A.D.A. criteria. Neutrophils (Bld) [#/Vol] 5.0 10*3/uL 2.0-7.7 [facility] Neutrophils/100 WBC (Bld) 83.2 % 47-70 [facility] Potassium [Moles/Vol] 4.1 mmol/L 3.5-5.1 [facility] Comment on above: Moderate Hemolysis, Result may be falsely increased. Sodium [Moles/Vol] 137 mmol/L 136-145 [facility] WBC (Bld) [#/Vol] 6.0 10*3/uL 4.4-11.0 [facility] Blood erythrocytes count (nu mber/volume)Ordered By: Kane Fisher on 06-11-2023 RBC (Bld) [#/Vol] 4.23 10*6/uL 4.2-5.4 [facility] Blood hemoglobin measurement (mass/volume)Ordered By: Kane Fisher on 06-11-2023 Hemoglobin (Bld) [Mass/Vol] 13.1 g/dL 12.0-15.0 [facility] Blood lymphocytes/100 leukoc ytesOrdered By: Kane Fisher on 06-11-2023 Lymphocytes/100 WBC (Bld) 9.1 % 19-41 [facility] Blood manual differential co mment interpretation (narrative result)Ordered By: Kane Fisher on 06-11-2023 Manual differential comment Collin (Bld) [Interp] SCANNED [facility] Blood monocytes/100 leukocyt esOrdered By: Kane Fisher on 06-11-2023 Monocytes/100 WBC (Bld) 6.1 % 0-10 [facility] Blood platelet mean volumeOr dered By: Kane Fisher on 06-11-2023 Platelet mean volume (Bld) [Entitic vol] 9.7 fL 6.2-12.0 [facility] Determination of erythrocyte mean corpuscular volume (MCV)Ordered By: Kane Fisher on 06-11-2023 MCV (RBC) [Entitic vol] 95.5 fL 81-99 [facility] Hematocrit Auto (Bld) [Volum e fraction]Ordered By: Kane Fisher on 06-11-2023 Hematocrit (Bld) [Volume fraction] 40.4 % 37-47 [facility] Laboratory - Chemistry and C hemistry - challengeOrdered By: Kane Fisher on 06-11-2023 CO2 [Moles/Vol] 27.0 mmol/L 21.0-32.0 [facility] Urea nitrogen/Creatinine [Mass ratio] 23.1 mg/mg 10-20 [facility] Laboratory - Hematology and Cell countsOrdered By: Kane Fisher on 06-11-2023 Erythrocyte distribution width (RBC) [Entitic vol] 46.3 fL 35.1-43.9 [facility] Erythrocyte distribution width (RBC) [Ratio] 13.2 % 11.6-14.6 [facility] Immature granulocytes/100 WBC (Bld) 0.300 % 0.0-0.9 [facility] Comment on above: IG% - Immature Granu locytes (promyelocytes, myelocytes and metamyelocytes) > 1% indicates that a LEFT SHIFT is Present. MCH (RBC) [Entitic mass] 31.0 pg 27.0-32.0 [facility] Nucleated RBC/100 WBC (Bld) [Ratio] 0 % 0-5 [facility] MCHC Auto (RBC) [Mass/Vol]Or dered By: Kane Fisher on 06-11-2023 MCHC (RBC) [Mass/Vol] 32.4 g/dL 32-36 [facility] No Panel InformationOrdered By: Kane Fisher on 06-11-2023 Estimated Creatinine Clearance Calc 82.90 ml/min [facility] Estimated GFR (MDRD) Amer 88 mL/min >60 [facility] Comment on above: GFR Calc Estimated GFR (MDRD) Non-Af Amer 73 mL/min >60 [facility] Comment on above: Non- GFR Calc Platelets bldOrdered By: Jules Fisher on 06-11-2023 Platelets (Bld) [#/Vol] 253 10*3/uL 150-450 [facility] Serum or plasma calcium sancho urement (mass/volume)Ordered By: Kane Fisher on 06-11-2023 Calcium [Mass/Vol] 9.2 mg/dL 8.5-10.1 [facility] Serum or plasma creatinine m easurement (mass/volume)Ordered By: Kane Fisher on 06-11-2023 Creatinine [Mass/Vol] 0.91 mg/dL 0.55-1.02 [facility] Comment on above: The validity of the calculated GFR & GFRAA in patients over 70 years has not been determined. Clinical correlation is essential. Serum or plasma urea nitroge n measurement (mass/volume)Ordered By: Kane Fisher on 06-11-2023 Urea nitrogen [Mass/Vol] 21 mg/dL 7-18 [facility] Thin prep Papanicolaou smear with manual screeningOrdered By: Kane Fisher on 06-11-2023 Thin prep Papanicolaou smear with manual screening 6 5-15 [facility] Absolute lymphocyte countOrd ered By: HEALTH ASSESSMENT on 05-09-2023 Lymphocytes Auto (Unsp spec) [#/Vol] 2.17 10*3/uL 0.83-4.51 [facility] Absolute reticulocyte countO rdered By: HEALTH ASSESSMENT on 05-09-2023 Reticulocytes (Bld) [#/Vol] 0.00 10*3/uL 0-5 [facility] Basophil percentageOrdered B y: HEALTH ASSESSMENT on 05-09-2023 Basophil percentage 3.1 mg/dL 2.5-4.9 [facility] Bilirubin [Mass/Vol] 0.20 mg/dL 0.20-1.00 [facility] Comment on above: For patients on eltr ombopag therapy, use of [place] TBIL is not recommended. Chloride [Moles/Vol] 107 mmol/L 98-107 [facility] Cholesterol [Mass/Vol] 206 mg/dL <200 [facility] Comment on above: <200 mg/dL Desirable 200-240 mg/dL Borderline >240 mg/dL High Risk Glucose [Mass/Vol] 111 mg/dL 74-106 [facility] Comment on above: Fasting Glucose resu lt from 100 to 125 mg/dL suggests IMPAIRED HOMEOSTASIS per A.D.A. criteria. LDH [Catalytic activity/Vol] 206 U/L 84-246 [facility] Neutrophils (Bld) [#/Vol] 2.7 10*3/uL 2.0-7.7 [facility] Potassium [Moles/Vol] 4.0 mmol/L 3.5-5.1 [facility] Protein [Mass/Vol] 7.1 g/dL 6.4-8.2 [facility] Sodium [Moles/Vol] 139 mmol/L 136-145 [facility] Triglyceride [Mass/Vol] 108 mg/dL <199 [facility] Comment on above: The drugs N-Acetylcy steine and Metamizole may falsely depress this assay.Serum Triglycerides Reference Interval Normal <150 mg/dL Borderline high 150 - 199 mg/dL High 200 - 499 mg/dL Very High > or = 500 mg/dL WBC (Bld) [#/Vol] 5.4 10*3/uL 4.4-11.0 [facility] Bilirubin Test strip Ql (U)O rdered By: HEALTH ASSESSMENT on 05-09-2023 Bilirubin Ql (U) 1 mg/dL Negative [facility] Comment on above: COLOR OF URINE MAY A FFECT DIPSTICK RESULTS. Blood erythrocytes count (nu mber/volume)Ordered By: HEALTH ASSESSMENT on 05-09-2023 RBC (Bld) [#/Vol] 3.78 10*6/uL 4.2-5.4 [facility] Blood hemoglobin measurement (mass/volume)Ordered By: HEALTH ASSESSMENT on 05-09-2023 Hemoglobin (Bld) [Mass/Vol] 11.6 g/dL 12.0-15.0 [facility] Blood platelet mean volumeOr dered By: HEALTH ASSESSMENT on 05-09-2023 Platelet mean volume (Bld) [Entitic vol] 9.5 fL 6.2-12.0 [facility] Determination of erythrocyte mean corpuscular volume (MCV)Ordered By: HEALTH ASSESSMENT on 05-09-2023 MCV (RBC) [Entitic vol] 97.4 fL 81-99 [facility] Direct bilirubinOrdered By: HEALTH ASSESSMENT on 05-09-2023 Bilirubin.direct [Mass/Vol] 0.06 mg/dL 0.00-0.30 [facility] Hematocrit Auto (Bld) [Volum e fraction]Ordered By: HEALTH ASSESSMENT on 05-09-2023 Hematocrit (Bld) [Volume fraction] 36.8 % 37-47 [facility] Ketones Test strip Ql (U)Ord ered By: HEALTH ASSESSMENT on 05-09-2023 Ketones Ql (U) 5 mg/dl Negative [facility] Laboratory - Chemistry and C hemistry - challengeOrdered By: HEALTH ASSESSMENT on 05-09-2023 ALP [Catalytic activity/Vol] 63 U/L 45-117 [facility] ALT [Catalytic activity/Vol] 36 U/L 13-56 [facility] Cholesterol.total/Cho lesterol in HDL [Mass ratio] 3.60 {ratio} [facility] CO2 [Moles/Vol] 28.0 mmol/L 21.0-32.0 [facility] Globulin (S) [Mass/Vol] 3.6 g/dL 2.2-4.2 [facility] Urea nitrogen/Creatinine [Mass ratio] 15.9 mg/mg 10-20 [facility] Laboratory - Hematology and Cell countsOrdered By: HEALTH ASSESSMENT on 05-09-2023 Erythrocyte distribution width (RBC) [Entitic vol] 45.2 fL 35.1-43.9 [facility] Erythrocyte distribution width (RBC) [Ratio] 12.7 % 11.6-14.6 [facility] MCH (RBC) [Entitic mass] 30.7 pg 27.0-32.0 [facility] Nucleated RBC/100 WBC (Bld) [Ratio] 0 % 0-5 [facility] MCHC Auto (RBC) [Mass/Vol]Or dered By: HEALTH ASSESSMENT on 05-09-2023 MCHC (RBC) [Mass/Vol] 31.5 g/dL 32-36 [facility] Nitrite Test strip Ql (U)Ord ered By: HEALTH ASSESSMENT on 05-09-2023 Nitrite Ql (U) Negative Negative [facility] No Panel InformationOrdered By: HEALTH ASSESSMENT on 05-09-2023 Estimated GFR (MDRD) Amer 91 mL/min >60 [facility] Comment on above: GFR Calc Estimated GFR (MDRD) Non-Af Amer 76 mL/min >60 [facility] Comment on above: Non- GFR Calc Platelets bldOrdered By: MAR LT ASSESSMENT on 05-09-2023 Platelets (Bld) [#/Vol] 302 10*3/uL 150-450 [facility] Protein Test strip Ql (U)Ord ered By: HEALTH ASSESSMENT on 05-09-2023 Protein Ql (U) 30 mg/dl Negative [facility] Segmented neutrophils/100 WB C Auto (Bld)Ordered By: HEALTH ASSESSMENT on 05-09-2023 Segmented neutrophils/100 WBC (Bld) 48.7 % 47-70 [facility] Serum or plasma albumin sancho urement (mass/volume)Ordered By: HEALTH ASSESSMENT on 05-09-2023 Albumin [Mass/Vol] 3.5 g/dL 3.2-5.0 [facility] Serum or plasma albumin/glob ulin mass ratioOrdered By: HEALTH ASSESSMENT on 05-09-2023 Albumin/Globulin [Mass ratio] 1.0 {ratio} 0.9-2.4 [facility] Serum or plasma calcium sancho urement (mass/volume)Ordered By: HEALTH ASSESSMENT on 05-09-2023 Calcium [Mass/Vol] 9.5 mg/dL 8.5-10.1 [facility] Serum or plasma cholesterol in HDL measurement (mass/volume)Ordered By: HEALTH ASSESSMENT on 05-09-2023 Cholesterol in HDL [Mass/Vol] 57 mg/dL >40 [facility] Comment on above: The drugs N-Acetylcy steine and Metamizole may falsely depress this assay. Reference Range HDL <40 mg/dL Low HDL Cholesterol HDL >or= 60 mg/dL High HDL Cholesterol Serum or plasma cholesterol in VLDL measurement (mass/volume)Ordered By: HEALTH ASSESSMENT on 05-09-2023 Cholesterol in VLDL [Mass/Vol] 22 mg/dL 5-40 [facility] Serum or plasma creatinine m easurement (mass/volume)Ordered By: HEALTH ASSESSMENT on 05-09-2023 Creatinine [Mass/Vol] 0.88 mg/dL 0.55-1.02 [facility] Comment on above: The validity of the calculated GFR & GFRAA in patients over 70 years has not been determined. Clinical correlation is essential. Serum or plasma low density lipoprotein (LDL) cholesterol measurement (mass/volume)Ordered By: HEALTH ASSESSMENT on 05-09-2023 Cholesterol in LDL [Mass/Vol] 127 mg/dL 0-130 [facility] Serum or plasma urea nitroge n measurement (mass/volume)Ordered By: HEALTH ASSESSMENT on 05-09-2023 Urea nitrogen [Mass/Vol] 14 mg/dL 7-18 [facility] Serum or plasma uric acid me asurement (mass/volume)Ordered By: HEALTH ASSESSMENT on 05-09-2023 Urate [Mass/Vol] 5.7 mg/dL 2.6-6.0 [facility] Comment on above: The drugs N-Acetylcy steine and Metamizole may falsely depress this assay. Thin prep Papanicolaou smear with manual screeningOrdered By: HEALTH ASSESSMENT on 05-09-2023 Thin prep Papanicolaou smear with manual screening 24 U/L 15-37 [facility] Thin prep Papanicolaou smear with manual screening 4 5-15 [facility] Urine blood detectionOrdered By: HEALTH ASSESSMENT on 05-09-2023 RBC Ql (U) 10 /ul Negative [facility] Urine clarityOrdered By: HEA LT ASSESSMENT on 05-09-2023 Clarity (U) Sl. Cloudy Clear [facility] Urine color determinationOrd ered By: HEALTH ASSESSMENT on 05-09-2023 Color (U) Yellow Yellow [facility] Urine glucose detectionOrder ed By: HEALTH ASSESSMENT on 05-09-2023 Glucose Ql (U) Normal mg/dl Normal [facility] Urine leukocyte esterase det ection by dipstickOrdered By: HEALTH ASSESSMENT on 05-09-2023 Leukocyte esterase Test strip Ql (U) 25 /ul Negative [facility] Urine pHOrdered By: HEALTH A SSESSMENT on 05-09-2023 pH (U) 5.0 [pH] 5.0 - 8.0 [facility] Urine specific gravity measu rementOrdered By: HEALTH ASSESSMENT on 05-09-2023 Specific gravity (U) [Rel density] 1.025 1.002-1.030 [facility] Urobilinogen Auto test strip Ql (U)Ordered By: HEALTH ASSESSMENT on 05-09-2023 Urobilinogen Ql (U) 1 mg/dl Normal [facility] Absolute lymphocyte countOrd ered By: Gay Koenig on 04-26-2023 Lymphocytes Auto (Unsp spec) [#/Vol] 1.68 10*3/uL 0.83-4.51 [facility] Basophil percentageOrdered B y: Gay Koenig on 04-26-2023 Basophils/100 WBC (Bld) 0.9 % 0-1 [facility] Chloride [Moles/Vol] 106 mmol/L 98-107 [facility] Eosinophils/100 WBC (Bld) 2.9 % 0-5 [facility] Glucose [Mass/Vol] 104 mg/dL 74-106 [facility] Comment on above: Fasting Glucose resu lt from 100 to 125 mg/dL suggests IMPAIRED HOMEOSTASIS per A.D.A. criteria. Neutrophils (Bld) [#/Vol] 4.5 10*3/uL 2.0-7.7 [facility] Neutrophils/100 WBC (Bld) 64.9 % 47-70 [facility] Potassium [Moles/Vol] 4.1 mmol/L 3.5-5.1 [facility] Sodium [Moles/Vol] 136 mmol/L 136-145 [facility] WBC (Bld) [#/Vol] 6.9 10*3/uL 4.4-11.0 [facility] Blood erythrocytes count (nu mber/volume)Ordered By: Gay Koenig on 04-26-2023 RBC (Bld) [#/Vol] 4.04 10*6/uL 4.2-5.4 [facility] Blood hemoglobin measurement (mass/volume)Ordered By: Gay Koenig on 04-26-2023 Hemoglobin (Bld) [Mass/Vol] 12.6 g/dL 12.0-15.0 [facility] Blood lymphocytes/100 leukoc ytesOrdered By: Gay Koenig on 04-26-2023 Lymphocytes/100 WBC (Bld) 24.4 % 19-41 [facility] Blood monocytes/100 leukocyt esOrdered By: Gay Koenig on 04-26-2023 Monocytes/100 WBC (Bld) 6.8 % 0-10 [facility] Blood platelet mean volumeOr dered By: Gay Koenig on 04-26-2023 Platelet mean volume (Bld) [Entitic vol] 10.7 fL 6.2-12.0 [facility] Determination of erythrocyte mean corpuscular volume (MCV)Ordered By: Gay Koenig on 04-26-2023 MCV (RBC) [Entitic vol] 98.8 fL 81-99 [facility] Hematocrit Auto (Bld) [Volum e fraction]Ordered By: Gay Koenig on 04-26-2023 Hematocrit (Bld) [Volume fraction] 39.9 % 37-47 [facility] Laboratory - Chemistry and C hemistry - challengeOrdered By: Gay Koenig on 04-26-2023 CO2 [Moles/Vol] 25.0 mmol/L 21.0-32.0 [facility] Urea nitrogen/Creatinine [Mass ratio] 12.5 mg/mg 10-20 [facility] Laboratory - Hematology and Cell countsOrdered By: Gay Koenig on 04-26-2023 Erythrocyte distribution width (RBC) [Entitic vol] 45.2 fL 35.1-43.9 [facility] Erythrocyte distribution width (RBC) [Ratio] 12.5 % 11.6-14.6 [facility] Immature granulocytes/100 WBC (Bld) 0.100 % 0.0-0.9 [facility] Comment on above: IG% - Immature Granu locytes (promyelocytes, myelocytes and metamyelocytes) > 1% indicates that a LEFT SHIFT is Present. MCH (RBC) [Entitic mass] 31.2 pg 27.0-32.0 [facility] Nucleated RBC/100 WBC (Bld) [Ratio] 0 % 0-5 [facility] Auto (RBC) [Mass/Vol]Or dered By: Gay Koenig on 04-26-2023 MCHC (RBC) [Mass/Vol] 31.6 g/dL 32-36 [facility] No Panel InformationOrdered By: Gay Koenig on 04-26-2023 Estimated GFR (MDRD) Amer 91 mL/min >60 [facility] Comment on above: GFR Calc Estimated GFR (MDRD) Non-Af Amer 75 mL/min >60 [facility] Comment on above: Non- GFR Calc Troponin I High Sensitivity 4 pg/mL 3.0-54.0 [facility] Comment on above: Please Note: New Bia t Units and Gender Specific Reference Ranges. For more information see Policy Stat Procedure [place] High Sensitivity Troponin (TNIH) and attachments. Platelets bldOrdered By: Enio Koenig on 04-26-2023 Platelets (Bld) [#/Vol] 279 10*3/uL 150-450 [facility] Serum or plasma calcium sancho urement (mass/volume)Ordered By: Gay Koenig on 04-26-2023 Calcium [Mass/Vol] 10.3 mg/dL 8.5-10.1 [facility] Serum or plasma creatinine m easurement (mass/volume)Ordered By: Gay Koenig on 04-26-2023 Creatinine [Mass/Vol] 0.88 mg/dL 0.55-1.02 [facility] Comment on above: The validity of the calculated GFR & GFRAA in patients over 70 years has not been determined. Clinical correlation is essential. Serum or plasma urea nitroge n measurement (mass/volume)Ordered By: Gay Koeing on 04-26-2023 Urea nitrogen [Mass/Vol] 11 mg/dL 7-18 [facility] Thin prep Papanicolaou smear with manual screeningOrdered By: Gay Koenig on 04-26-2023 Thin prep Papanicolaou smear with manual screening 5 5-15 [facility] Erythrocyte sedimentation ra teOrdered By: STEVEN BOLES on 03-22-2023 ESR (Bld) [Velocity] 14 mm/h 0-30 [facility] Serum or plasma C reactive p rotein measurement (mass/volume)Ordered By: STEVEN BOLES on 03-22-2023 CRP [Mass/Vol] 9.19 mg/L 0.0-3.0 [facility] Comment on above: C-Reactive Protein ( CRP) provides useful information for thediagnosis, therapy and monitoring of inflammatory processesand associated diseases. For the evaluation of Relative Riskfor Cardiovascular Disease, a High Sensitivity CRP (HSCRP)should be ordered. Absolute lymphocyte countOrd ered By: STEVEN BOLES on 03-07-2023 Lymphocytes Auto (Unsp spec) [#/Vol] 2.41 10*3/uL 0.83-4.51 [facility] Basophil percentageOrdered B y: STEVEN BOLES on 03-07-2023 Basophils/100 WBC (Bld) 0.9 % 0-1 [facility] Bilirubin [Mass/Vol] 0.30 mg/dL 0.20-1.00 [facility] Comment on above: For patients on eltr ombopag therapy, use of Dimension [place] TBIL is not recommended. Eosinophils/100 WBC (Bld) 3.2 % 0-5 [facility] Neutrophils (Bld) [#/Vol] 3.7 10*3/uL 2.0-7.7 [facility] Neutrophils/100 WBC (Bld) 55.0 % 47-70 [facility] Protein [Mass/Vol] 7.7 g/dL 6.4-8.2 [facility] WBC (Bld) [#/Vol] 6.8 10*3/uL 4.4-11.0 [facility] Blood erythrocytes count (nu mber/volume)Ordered By: STEVEN BOLES on 03-07-2023 RBC (Bld) [#/Vol] 3.93 10*6/uL 4.2-5.4 [facility] Blood hemoglobin measurement (mass/volume)Ordered By: STEVEN BOLES on 03-07-2023 Hemoglobin (Bld) [Mass/Vol] 12.5 g/dL 12.0-15.0 [facility] Blood lymphocytes/100 leukoc ytesOrdered By: STEVEN BOLES on 03-07-2023 Lymphocytes/100 WBC (Bld) 35.4 % 19-41 [facility] Blood monocytes/100 leukocyt esOrdered By: STEVEN BOLES on 03-07-2023 Monocytes/100 WBC (Bld) 5.4 % 0-10 [facility] Blood platelet mean volumeOr dered By: STEVEN BOLES on 03-07-2023 Platelet mean volume (Bld) [Entitic vol] 9.3 fL 6.2-12.0 [facility] Determination of erythrocyte mean corpuscular volume (MCV)Ordered By: STEVEN BOLES on 03-07-2023 MCV (RBC) [Entitic vol] 98.5 fL 81-99 [facility] Direct bilirubinOrdered By: STEVEN BOLES on 03-07-2023 Bilirubin.direct [Mass/Vol] 0.09 mg/dL 0.00-0.30 [facility] Erythrocyte sedimentation ra teOrdered By: STEVEN BOLES on 03-07-2023 ESR (Bld) [Velocity] 19 mm/h 0-30 [facility] Hematocrit Auto (Bld) [Volum e fraction]Ordered By: STEVEN BOLES on 03-07-2023 Hematocrit (Bld) [Volume fraction] 38.7 % 37-47 [facility] Laboratory - Chemistry and C hemistry - challengeOrdered By: STEVEN BOLES on 03-07-2023 ALP [Catalytic activity/Vol] 69 U/L 45-117 [facility] ALT [Catalytic activity/Vol] 32 U/L 13-56 [facility] Globulin (S) [Mass/Vol] 3.8 g/dL 2.2-4.2 [facility] Laboratory - Hematology and Cell countsOrdered By: STEVEN BOLES on 03-07-2023 Erythrocyte distribution width (RBC) [Entitic vol] 46.3 fL 35.1-43.9 [facility] Erythrocyte distribution width (RBC) [Ratio] 13.0 % 11.6-14.6 [facility] Immature granulocytes/100 WBC (Bld) 0.100 % 0.0-0.9 [facility] Comment on above: IG% - Immature Granu locytes (promyelocytes, myelocytes and metamyelocytes) > 1% indicates that a LEFT SHIFT is Present. MCH (RBC) [Entitic mass] 31.8 pg 27.0-32.0 [facility] Nucleated RBC/100 WBC (Bld) [Ratio] 0 % 0-5 [facility] MCHC Auto (RBC) [Mass/Vol]Or dered By: STEVEN BOLES on 03-07-2023 MCHC (RBC) [Mass/Vol] 32.3 g/dL 32-36 [facility] No Panel InformationOrdered By: STEVEN BOLES on 03-07-2023 Estimated GFR (MDRD) Amer 88 mL/min >60 [facility] Comment on above: GFR Calc Estimated GFR (MDRD) Non-Af Amer 73 mL/min >60 [facility] Comment on above: Non- GFR Calc Platelets bldOrdered By: IRENE BOLES on 03-07-2023 Platelets (Bld) [#/Vol] 326 10*3/uL 150-450 [facility] Serum or plasma C reactive p rotein measurement (mass/volume)Ordered By: STEVEN BOLES on 03-07-2023 CRP [Mass/Vol] 13.30 mg/L 0.0-3.0 [facility] Comment on above: C-Reactive Protein ( CRP) provides useful information for thediagnosis, therapy and monitoring of inflammatory processesand associated diseases. For the evaluation of Relative Riskfor Cardiovascular Disease, a High Sensitivity CRP (HSCRP)should be ordered. Serum or plasma albumin sancho urement (mass/volume)Ordered By: STEVEN BOLES on 03-07-2023 Albumin [Mass/Vol] 3.9 g/dL 3.2-5.0 [facility] Serum or plasma creatinine m easurement (mass/volume)Ordered By: STEVEN BOLES on 03-07-2023 Creatinine [Mass/Vol] 0.91 mg/dL 0.55-1.02 [facility] Comment on above: The validity of the calculated GFR & GFRAA in patients over 70 years has not been determined. Clinical correlation is essential. Thin prep Papanicolaou smear with manual screeningOrdered By: STEVEN BOLES on 03-07-2023 Thin prep Papanicolaou smear with manual screening 18 U/L 15-37 [facility] Basophil percentageOrdered B y: Cali Lou on 01-09-2023 Bilirubin [Mass/Vol] 0.30 mg/dL 0.20-1.00 [facility] Comment on above: For patients on eltr ombopag therapy, use of Dimension [place] TBIL is not recommended. Chloride [Moles/Vol] 106 mmol/L 98-107 [facility] Glucose [Mass/Vol] 90 mg/dL 74-106 [facility] Potassium [Moles/Vol] 4.1 mmol/L 3.5-5.1 [facility] Protein [Mass/Vol] 8.0 g/dL 6.4-8.2 [facility] Sodium [Moles/Vol] 138 mmol/L 136-145 [facility] Laboratory - Chemistry and C hemistry - challengeOrdered By: Cali Lou on 01-09-2023 ALP [Catalytic activity/Vol] 70 U/L 45-117 [facility] ALT [Catalytic activity/Vol] 23 U/L 13-56 [facility] CO2 [Moles/Vol] 25.0 mmol/L 21.0-32.0 [facility] Free T4 [Mass/Vol] 0.97 ng/dL 0.76-1.46 [facility] Globulin (S) [Mass/Vol] 4.1 g/dL 2.2-4.2 [facility] Urea nitrogen/Creatinine [Mass ratio] 19.8 mg/mg 10-20 [facility] No Panel InformationOrdered By: Cali Lou on 01-09-2023 Estimated GFR (MDRD) Amer 109 mL/min >60 [facility] Comment on above: GFR Calc Estimated GFR (MDRD) Non-Af Amer 90 mL/min >60 [facility] Comment on above: Non- GFR Calc Follicle Stimulating Hormone 19.8 mIU/mL [facility] Comment on above: NORMAL REFERENCE RAN GES FEMALE FOLLICULAR 2.3 - 12.6 mIU/mL MID-CYCLE PEAK 5.2 - 17.5 mIU/mL LUTEAL 1.7 - 12.9 mIU/mL POST-MENOPAUSAL ON MHT 5.9 - 72.8 mIU/mL NOT ON MHT 12.7 - 132.2 mlU/mL MALE 0.7 - 10.8 mIU/mL Luteinizing Hormone 10.0 mIU/mL [facility] Comment on above: NORMAL REFERENCE RAN GES FEMALE FOLLICULAR 1.9 - 26.2 mIU/mL MID-CYCLE PEAK 22.8 - 76.1 mIU/mL LUTEAL 0.6 - 16.6 mIU/mL POST-MENOPAUSAL ON MHT 1.1 - 52.4 mIU/mL NOT ON MHT 8.6 - 61.8 mIU/mL MALE 1.2 - 10.6 mIU/mL Parathyroid Hormone (Intact) 92.3 pg/mL 18.4-80.1 [facility] Thyroid Stimulating Hormone (TSH) 0.85 uIU/mL 0.358-3.74 [facility] Vitamin D 25-Hydroxy 47.0 ng/mL [facility] Comment on above: Vitamin D 25(OH) Sta tus Range Deficiency <20 ng/mL (50nmol/L) Insufficiency 20 - 30 ng/mL (50 - 75 nmol/L) Sufficiency 30 - 100 ng/mL (75 - 250 nmol/L) Toxicity >100 ng/mL (>250 nmol/L) Serum or plasma albumin sancho urement (mass/volume)Ordered By: Cali Lou on 01-09-2023 Albumin [Mass/Vol] 3.9 g/dL 3.2-5.0 [facility] Serum or plasma albumin/glob ulin mass ratioOrdered By: Cali Lou on 01-09-2023 Albumin/Globulin [Mass ratio] 1.0 {ratio} 0.9-2.4 [facility] Serum or plasma calcium sancho urement (mass/volume)Ordered By: Cali Lou on 01-09-2023 Calcium [Mass/Vol] 10.2 mg/dL 8.5-10.1 [facility] Serum or plasma creatinine m easurement (mass/volume)Ordered By: Cali Lou on 01-09-2023 Creatinine [Mass/Vol] 0.76 mg/dL 0.55-1.02 [facility] Comment on above: The validity of the calculated GFR & GFRAA in patients over 70 years has not been determined. Clinical correlation is essential. Serum or plasma estradiol (E 2) measurement (mass/volume)Ordered By: Cali Lou on 01-09-2023 E2 [Mass/Vol] 25.0 pg/mL [facility] Comment on above: NORMAL REFERENCE [...] 01-09-2023 Urea nitrogen [Mass/Vol] 15 mg/dL 7-18 [facility] Thin prep Papanicolaou smear with manual screeningOrdered By: Cali Lou on 01-09-2023 Thin prep Papanicolaou smear with manual screening 13 U/L 15-37 [facility] Thin prep Papanicolaou smear with manual screening 7 5-15 [facility] Erythrocyte sedimentation ra teOrdered By: STEVEN BOLES on 01-03-2023 ESR (Bld) [Velocity] 10 mm/h 0-30 [facility] Serum or plasma C reactive p rotein measurement (mass/volume)Ordered By: STEVEN BOLES on 01-03-2023 CRP [Mass/Vol] 6.98 mg/L 0.0-3.0 [facility] Comment on above: C-Reactive Protein ( CRP) provides useful information for thediagnosis, therapy and monitoring of inflammatory processesand associated diseases. For the evaluation of Relative Riskfor Cardiovascular Disease, a High Sensitivity CRP (HSCRP)should be ordered. Absolute lymphocyte countOrd ered By: STEVEN BOLES on 12-14-2022 Lymphocytes Auto (Unsp spec) [#/Vol] 1.23 10*3/uL 0.83-4.51 [facility] Basophil percentageOrdered B y: STEVEN BOLES on 05-31-2023 Basophils/100 WBC (Bld) 0.6 % 0-1 [facility] Bilirubin [Mass/Vol] 0.30 mg/dL 0.20-1.00 [facility] Comment on above: For patients on eltr ombopag therapy, use of Dimension [place] TBIL is not recommended. Eosinophils/100 WBC (Bld) 0.7 % 0-5 [facility] Neutrophils (Bld) [#/Vol] 8.0 10*3/uL 2.0-7.7 [facility] Neutrophils/100 WBC (Bld) 82.4 % 47-70 [facility] Protein [Mass/Vol] 7.3 g/dL 6.4-8.2 [facility] WBC (Bld) [#/Vol] 9.7 10*3/uL 4.4-11.0 [facility] Blood erythrocytes count (nu mber/volume)Ordered By: STEVEN BOLES on 12-14-2022 RBC (Bld) [#/Vol] 3.98 10*6/uL 4.2-5.4 [facility] Blood hemoglobin measurement (mass/volume)Ordered By: STEVEN BOLES on 12-14-2022 Hemoglobin (Bld) [Mass/Vol] 12.4 g/dL 12.0-15.0 [facility] Blood lymphocytes/100 leukoc ytesOrdered By: STEVEN BOLES on 12-14-2022 Lymphocytes/100 WBC (Bld) 12.7 % 19-41 [facility] Blood monocytes/100 leukocyt esOrdered By: STEVEN BOLES on 12-14-2022 Monocytes/100 WBC (Bld) 3.2 % 0-10 [facility] Blood platelet mean volumeOr dered By: STEVEN BOLES on 12-14-2022 Platelet mean volume (Bld) [Entitic vol] 9.4 fL 6.2-12.0 [facility] Determination of erythrocyte mean corpuscular volume (MCV)Ordered By: STEVEN BOLES on 12-14-2022 MCV (RBC) [Entitic vol] 96.7 fL 81-99 [facility] Direct bilirubinOrdered By: STEVEN BOLES on 05-31-2023 Bilirubin.direct [Mass/Vol] 0.09 mg/dL 0.00-0.30 [facility] Erythrocyte sedimentation ra teOrdered By: STEVEN BOLES on 12-14-2022 ESR (Bld) [Velocity] 20 mm/h 0-30 [facility] Hematocrit Auto (Bld) [Volum e fraction]Ordered By: STEVEN BOLES on 12-14-2022 Hematocrit (Bld) [Volume fraction] 38.5 % 37-47 [facility] Laboratory - Chemistry and C hemistry - challengeOrdered By: STEVEN BOLES on 12-14-2022 ALP [Catalytic activity/Vol] 59 U/L 45-117 [facility] ALT [Catalytic activity/Vol] 28 U/L 13-56 [facility] Globulin (S) [Mass/Vol] 3.6 g/dL 2.2-4.2 [facility] Laboratory - Hematology and Cell countsOrdered By: STEVEN BOLES on 12-14-2022 Erythrocyte distribution width (RBC) [Entitic vol] 49.9 fL 35.1-43.9 [facility] Erythrocyte distribution width (RBC) [Ratio] 14.0 % 11.6-14.6 [facility] Immature granulocytes/100 WBC (Bld) 0.400 % 0.0-0.9 [facility] Comment on above: IG% - Immature Granu locytes (promyelocytes, myelocytes and metamyelocytes) > 1% indicates that a LEFT SHIFT is Present. MCH (RBC) [Entitic mass] 31.2 pg 27.0-32.0 [facility] Nucleated RBC/100 WBC (Bld) [Ratio] 0 % 0-5 [facility] MCHC Auto (RBC) [Mass/Vol]Or dered By: STEVEN BOLES on 12-14-2022 MCHC (RBC) [Mass/Vol] 32.2 g/dL 32-36 [facility] No Panel InformationOrdered By: STEVEN BOLES on 12-14-2022 Estimated GFR (MDRD) Amer 106 mL/min >60 [facility] Comment on above: GFR Calc Estimated GFR (MDRD) Non-Af Amer 88 mL/min >60 [facility] Comment on above: Non- GFR Calc Platelets bldOrdered By: IRENE HAMM RAMANA on 12-14-2022 Platelets (Bld) [#/Vol] 302 10*3/uL 150-450 [facility] Serum or plasma C reactive p rotein measurement (mass/volume)Ordered By: STEVEN BOLES on 12-14-2022 CRP [Mass/Vol] 8.54 mg/L 0.0-3.0 [facility] Comment on above: C-Reactive Protein ( CRP) provides useful information for thediagnosis, therapy and monitoring of inflammatory processesand associated diseases. For the evaluation of Relative Riskfor Cardiovascular Disease, a High Sensitivity CRP (HSCRP)should be ordered. Serum or plasma albumin sancho urement (mass/volume)Ordered By: STEVEN BOLES on 12-14-2022 Albumin [Mass/Vol] 3.7 g/dL 3.2-5.0 [facility] Serum or plasma creatinine m easurement (mass/volume)Ordered By: STEVEN BOLES on 12-14-2022 Creatinine [Mass/Vol] 0.77 mg/dL 0.55-1.02 [facility] Comment on above: The validity of the calculated GFR & GFRAA in patients over 70 years has not been determined. Clinical correlation is essential. Thin prep Papanicolaou smear with manual screeningOrdered By: STEVEN BOLES on 12-14-2022 Thin prep Papanicolaou smear with manual screening 22 U/L 15-37 [facility] Basophil percentageOrdered B y: Dirk Paula on 12-02-2022 Chloride [Moles/Vol] 106 mmol/L 98-107 [facility] Glucose [Mass/Vol] 99 mg/dL 74-106 [facility] Potassium [Moles/Vol] 4.2 mmol/L 3.5-5.1 [facility] Sodium [Moles/Vol] 139 mmol/L 136-145 [facility] Laboratory - Chemistry and C hemistry - challengeOrdered By: Dirk Paula on 12-02-2022 CO2 [Moles/Vol] 28.0 mmol/L 21.0-32.0 [facility] Urea nitrogen/Creatinine [Mass ratio] 18.1 mg/mg 10-20 [facility] No Panel InformationOrdered By: Dirk Paula on 12-02-2022 Estimated GFR (MDRD) Amer 106 mL/min >60 [facility] Comment on above: GFR Calc Estimated GFR (MDRD) Non-Af Amer 88 mL/min >60 [facility] Comment on above: Non- GFR Calc Serum or plasma calcium sancho urement (mass/volume)Ordered By: Dirk Paula on 12-02-2022 Calcium [Mass/Vol] 10.1 mg/dL 8.5-10.1 [facility] Serum or plasma creatinine m easurement (mass/volume)Ordered By: Dirk Paula on 12-02-2022 Creatinine [Mass/Vol] 0.77 mg/dL 0.55-1.02 [facility] Comment on above: The validity of the calculated GFR & GFRAA in patients over 70 years has not been determined. Clinical correlation is essential. Serum or plasma urea nitroge n measurement (mass/volume)Ordered By: Dirk Paula on 12-02-2022 Urea nitrogen [Mass/Vol] 14 mg/dL 01-31 [facility] Thin prep Papanicolaou smear with manual screeningOrdered By: Dirk Paula on 12-02-2022 Thin prep Papanicolaou smear with manual screening 5 5-15 [facility] No Panel InformationOrdered By: Dr. Lou on 11-01-2022 Parathyroid Hormone (Intact) 95.6 pg/mL 18.4-80.1 [facility] Thyroid Stimulating Hormone (TSH) 1.00 uIU/mL 0.358-3.74 [facility] Vitamin D 25-Hydroxy 37.3 ng/mL [facility] Comment on above: Vitamin D 25(OH) Sta tus Range Deficiency <20 ng/mL (50nmol/L) Insufficiency 20 - 30 ng/mL (50 - 75 nmol/L) Sufficiency 30 - 100 ng/mL (75 - 250 nmol/L) Toxicity >100 ng/mL (>250 nmol/L) Serum or plasma calcium sancho urement (mass/volume)Ordered By: Dr. Lou on 11-01-2022 Calcium [Mass/Vol] 10.4 mg/dL 8.5-10.1 [facility] Absolute lymphocyte countOrd ered By: STEVEN BOLES on 10-13-2022 Lymphocytes Auto (Unsp spec) [#/Vol] 2.23 10*3/uL 0.83-4.51 [facility] Basophil percentageOrdered B y: STEVEN BOLES on 10-13-2022 Basophils/100 WBC (Bld) 0.9 % 0-1 [facility] Bilirubin [Mass/Vol] 0.50 mg/dL 0.20-1.00 [facility] Comment on above: For patients on eltr ombopag therapy, use of Dimension [place] TBIL is not recommended. Eosinophils/100 WBC (Bld) 3.0 % 0-5 [facility] Neutrophils (Bld) [#/Vol] 4.0 10*3/uL 2.0-7.7 [facility] Neutrophils/100 WBC (Bld) 57.6 % 47-70 [facility] Protein [Mass/Vol] 7.7 g/dL 6.4-8.2 [facility] WBC (Bld) [#/Vol] 7.0 10*3/uL 4.4-11.0 [facility] Blood erythrocytes count (nu mber/volume)Ordered By: STEVEN BOLES on 10-13-2022 RBC (Bld) [#/Vol] 4.16 10*6/uL 4.2-5.4 [facility] Blood hemoglobin measurement (mass/volume)Ordered By: STEVEN BOLES on 10-13-2022 Hemoglobin (Bld) [Mass/Vol] 12.7 g/dL 12.0-15.0 [facility] Blood lymphocytes/100 leukoc ytesOrdered By: STEVEN BOLES on 10-13-2022 Lymphocytes/100 WBC (Bld) 32.0 % 19-41 [facility] Blood monocytes/100 leukocyt esOrdered By: STEVEN BOLES on 10-13-2022 Monocytes/100 WBC (Bld) 6.2 % 0-10 [facility] Blood platelet mean volumeOr dered By: STEVEN BOLES on 10-13-2022 Platelet mean volume (Bld) [Entitic vol] 10.2 fL 6.2-12.0 [facility] Determination of erythrocyte mean corpuscular volume (MCV)Ordered By: STEVEN BOLES on 10-13-2022 MCV (RBC) [Entitic vol] 95.4 fL 81-99 [facility] Direct bilirubinOrdered By: STEVEN BOLES on 10-13-2022 Bilirubin.direct [Mass/Vol] 0.14 mg/dL 0.00-0.30 [facility] Erythrocyte sedimentation ra teOrdered By: STEVEN BOLES on 10-13-2022 ESR (Bld) [Velocity] 24 mm/h 0-30 [facility] Hematocrit Auto (Bld) [Volum e fraction]Ordered By: STEVEN BOLES on 10-13-2022 Hematocrit (Bld) [Volume fraction] 39.7 % 37-47 [facility] Laboratory - Chemistry and C hemistry - challengeOrdered By: STEVEN BOLES on 10-13-2022 ALP [Catalytic activity/Vol] 60 U/L 45-117 [facility] ALT [Catalytic activity/Vol] 32 U/L 13-56 [facility] Globulin (S) [Mass/Vol] 3.6 g/dL 2.2-4.2 [facility] Laboratory - Hematology and Cell countsOrdered By: STEVEN BOLES on 10-13-2022 Erythrocyte distribution width (RBC) [Entitic vol] 43.9 fL 35.1-43.9 [facility] Erythrocyte distribution width (RBC) [Ratio] 12.6 % 11.6-14.6 [facility] Immature granulocytes/100 WBC (Bld) 0.300 % 0.0-0.9 [facility] Comment on above: IG% - Immature Granu locytes (promyelocytes, myelocytes and metamyelocytes) > 1% indicates that a LEFT SHIFT is Present. MCH (RBC) [Entitic mass] 30.5 pg 27.0-32.0 [facility] Nucleated RBC/100 WBC (Bld) [Ratio] 0 % 0-5 [facility] MCHC Auto (RBC) [Mass/Vol]Or dered By: STEVEN BOLES on 10-13-2022 MCHC (RBC) [Mass/Vol] 32.0 g/dL 32-36 [facility] No Panel InformationOrdered By: STEVEN BOLES on 10-13-2022 Estimated GFR (MDRD) Amer 106 mL/min >60 [facility] Comment on above: GFR Calc Estimated GFR (MDRD) Non-Af Amer 88 mL/min >60 [facility] Comment on above: Non- GFR Calc Platelets bldOrdered By: IRENE HAMM RAMANA on 10-13-2022 Platelets (Bld) [#/Vol] 312 10*3/uL 150-450 [facility] Serum cyclic citrullinated p eptide IgG antibody assay (units/volume)Ordered By: STEVEN BOLES on 10-13-2022 Cyclic citrullinated peptide IgG Qn 7 units 0-19 [facility] Comment on above: Negative <20 Weak po sitive 20 - 39 Moderate positive 40 - 59 Strong positive >59Performed at: [facility] [id number] Director: Levi Covarrubias PhD, Phone: [phone] Serum or plasma C reactive p rotein measurement (mass/volume)Ordered By: STEVEN BOLES on 10-13-2022 CRP [Mass/Vol] mg/L 0.0-3.0 [facility] Comment on above: C-Reactive Protein ( CRP) provides useful information for thediagnosis, therapy and monitoring of inflammatory processesand associated diseases. For the evaluation of Relative Riskfor Cardiovascular Disease, a High Sensitivity CRP (HSCRP)should be ordered. Serum or plasma albumin sancho urement (mass/volume)Ordered By: STEVEN BOLES on 10-13-2022 Albumin [Mass/Vol] 4.1 g/dL 3.2-5.0 [facility] Serum or plasma complement C 3 measurement (mass/volume)Ordered By: STEVEN BOLES on 10-13-2022 Complement C3 [Mass/Vol] 163 mg/dL 82-167 [facility] Serum or plasma complement C 4 measurement (mass/volume)Ordered By: STEVEN BOLES on 10-13-2022 Complement C4 [Mass/Vol] 30 mg/dL 12-38 [facility] Serum or plasma creatinine m easurement (mass/volume)Ordered By: STEVEN BOLES on 10-13-2022 Creatinine [Mass/Vol] 0.77 mg/dL 0.55-1.02 [facility] Comment on above: The validity of the calculated GFR & GFRAA in patients over 70 years has not been determined. Clinical correlation is essential. Serum rheumatoid factor dete ctionOrdered By: STEVEN BOLES on 10-13-2022 Rheumatoid factor Ql (S) < 10.0 IU/mL <15 [facility] Thin prep Papanicolaou smear with manual screeningOrdered By: STEVEN BOLES on 10-13-2022 Thin prep Papanicolaou smear with manual screening 17 U/L 15-37 [facility] Laboratory - Chemistry and C hemistry - challengeOrdered By: Dirk Paula on 09-29-2022 Cobalamin (Vitamin B12) [Mass/Vol] 334 pg/mL 211-911 [facility] No Panel InformationOrdered By: Nicolette Blair on 09-29-2022 Hepatitis B Surface Antibody Reactive [facility] Comment on above: Non Reactive: Incons istent with immunity less than <10 mIU/mL Reactive: Consistent with immunity greater than or equal to 10 mIU/mL Laboratory - Microbiology an d Antimicrobial susceptibilityon 09-01-2022 S. pyogenes Ag IA Ql (Unsp spec) Negative [facility] No Panel Informationon 09-01 Influenza Types A,B Rapid (Clinic) Negative [facility] POC SARS CoV-2 Antigen Negative [facility] - Hematology and Cell countson 08-15-2022 HbA1c (Bld) [Mass fraction] 5.8 % 4.2-6.3 [facility] Absolute lymphocyte countOrd ered By: Dr. Osorio on 08-04-2022 Lymphocytes Auto (Unsp spec) [#/Vol] 2.02 10*3/uL 0.83-4.51 [facility] Basophil percentageOrdered B y: Dr. Osorio on 08-04-2022 Basophils/100 WBC (Bld) 0.7 % 0-1 [facility] Bilirubin [Mass/Vol] 0.40 mg/dL 0.20-1.00 [facility] Comment on above: For patients on eltr ombopag therapy, use of [place] TBIL is not recommended. Chloride [Moles/Vol] 103 mmol/L 98-107 [facility] Eosinophils/100 WBC (Bld) 1.9 % 0-5 [facility] Glucose [Mass/Vol] 98 mg/dL 74-106 [facility] Neutrophils (Bld) [#/Vol] 2.8 10*3/uL 2.0-7.7 [facility] Neutrophils/100 WBC (Bld) 52.5 % 47-70 [facility] Potassium [Moles/Vol] 3.5 mmol/L 3.5-5.1 [facility] Protein [Mass/Vol] 7.7 g/dL 6.4-8.2 [facility] Sodium [Moles/Vol] 139 mmol/L 136-145 [facility] WBC (Bld) [#/Vol] 5.3 10*3/uL 4.4-11.0 [facility] Blood erythrocytes count (nu mber/volume)Ordered By: Dr. Osorio on 08-04-2022 RBC (Bld) [#/Vol] 3.99 10*6/uL 4.2-5.4 [facility] Blood hemoglobin measurement (mass/volume)Ordered By: Dr. Osorio on 08-04-2022 Hemoglobin (Bld) [Mass/Vol] 12.3 g/dL 12.0-15.0 [facility] Blood lymphocytes/100 leukoc ytesOrdered By: Dr. Osorio on 08-04-2022 Lymphocytes/100 WBC (Bld) 37.8 % 19-41 [facility] Blood monocytes/100 leukocyt esOrdered By: Dr. Osorio on 08-04-2022 Monocytes/100 WBC (Bld) 6.7 % 0-10 [facility] Blood platelet mean volumeOr dered By: Dr. Osorio on 08-04-2022 Platelet mean volume (Bld) [Entitic vol] 9.5 fL 6.2-12.0 [facility] Determination of erythrocyte mean corpuscular volume (MCV)Ordered By: Dr. Osorio on 08-04-2022 MCV (RBC) [Entitic vol] 95.7 fL 81-99 [facility] Hematocrit Auto (Bld) [Volum e fraction]Ordered By: Dr. Osorio on 08-04-2022 Hematocrit (Bld) [Volume fraction] 38.2 % 37-47 [facility] - Chemistry and C hemistry - challengeOrdered By: Dr. Osorio on 08-04-2022 ALP [Catalytic activity/Vol] 57 U/L 45-117 [facility] ALT [Catalytic activity/Vol] 34 U/L 13-56 [facility] CO2 [Moles/Vol] 28.0 mmol/L 21.0-32.0 [facility] Globulin (S) [Mass/Vol] 3.8 g/dL 2.2-4.2 [facility] Urea nitrogen/Creatinine [Mass ratio] 12.9 mg/mg 10-20 [facility] - Hematology and Cell countsOrdered By: Dr. Osorio on 08-04-2022 Erythrocyte distribution width (RBC) [Entitic vol] 45.3 fL 35.1-43.9 [facility] Erythrocyte distribution width (RBC) [Ratio] 13.1 % 11.6-14.6 [facility] Immature granulocytes/100 WBC (Bld) 0.400 % 0.0-0.9 [facility] Comment on above: IG% - Immature Granu locytes (promyelocytes, myelocytes and metamyelocytes) > 1% indicates that a LEFT SHIFT is Present. MCH (RBC) [Entitic mass] 30.8 pg 27.0-32.0 [facility] Nucleated RBC/100 WBC (Bld) [Ratio] 0 % 0-5 [facility] MCHC Auto (RBC) [Mass/Vol]Or dered By: Dr. Osorio on 08-04-2022 MCHC (RBC) [Mass/Vol] 32.2 g/dL 32-36 [facility] No Panel InformationOrdered By: Dr. Lou on 08-04-2022 Thyroid Stimulating Hormone (TSH) 1.23 uIU/mL 0.358-3.74 [facility] Vitamin D 25-Hydroxy 39.8 ng/mL [facility] Comment on above: Vitamin D 25(OH) Sta tus Range Deficiency <20 ng/mL (50nmol/L) Insufficiency 20 - 30 ng/mL (50 - 75 nmol/L) Sufficiency 30 - 100 ng/mL (75 - 250 nmol/L) Toxicity >100 ng/mL (>250 nmol/L) No Panel InformationOrdered By: Dr. Osorio on 08-04-2022 Estimated GFR (MDRD) Amer 95 mL/min >60 [facility] Comment on above: GFR Calc Estimated GFR (MDRD) Non-Af Amer 79 mL/min >60 [facility] Comment on above: Non- GFR Calc Platelets bldOrdered By: Dr. Osorio on 08-04-2022 Platelets (Bld) [#/Vol] 339 10*3/uL 150-450 [facility] Serum or plasma albumin sancho urement (mass/volume)Ordered By: Dr. Osorio on 08-04-2022 Albumin [Mass/Vol] 3.9 g/dL 3.2-5.0 [facility] Serum or plasma albumin/glob ulin mass ratioOrdered By: Dr. Osorio on 08-04-2022 Albumin/Globulin [Mass ratio] 1.0 {ratio} 0.9-2.4 [facility] Serum or plasma calcium sancho urement (mass/volume)Ordered By: Dr. Osorio on 08-04-2022 Calcium [Mass/Vol] 10.1 mg/dL 8.5-10.1 [facility] Serum or plasma creatinine m easurement (mass/volume)Ordered By: Dr. Osorio on 08-04-2022 Creatinine [Mass/Vol] 0.85 mg/dL 0.55-1.02 [facility] Comment on above: The validity of the calculated GFR & GFRAA in patients over 70 years has not been determined. Clinical correlation is essential. Serum or plasma urea nitroge n measurement (mass/volume)Ordered By: Dr. Osorio on 08-04-2022 Urea nitrogen [Mass/Vol] 11 mg/dL 7-18 [facility] Thin prep Papanicolaou smear with manual screeningOrdered By: Dr. Osorio on 08-04-2022 Thin prep Papanicolaou smear with manual screening 20 U/L 15-37 [facility] Thin prep Papanicolaou smear with manual screening 8 5-15 [facility] Qualitative QuantiFERON-TB g old in tube testOrdered By: Dr. Osorio on 06-24-2022 M. tuberculosis tuberculin stim IFN-g Ql (Bld) Not Reportable [facility] Thin prep Papanicolaou smear with manual screeningOrdered By: Dr. Osorio on 06-24-2022 Thin prep Papanicolaou smear with manual screening See comment [facility] Comment on above: TEST RESULT [...] gamma.Chemiluminescence immunoassay methodology ____ TESTING PERFORMED AT [facility]. ORIGINAL REPORT ON FILE IN LAB CONTAINS ADDITIONAL TEST SITE INFORMATION. Thin prep Papanicolaou smear with manual screening Not Reportable [facility] Absolute lymphocyte countOrd ered By: Dr. Osorio on 06-13-2022 Lymphocytes Auto (Unsp spec) [#/Vol] 2.41 10*3/uL 0.83-4.51 [facility] Basophil percentageOrdered B y: Dr. Osorio on 06-13-2022 Basophils/100 WBC (Bld) 0.9 % 0-1 [facility] Bilirubin [Mass/Vol] 0.50 mg/dL 0.20-1.00 [facility] Comment on above: For patients on eltr ombopag therapy, use of [place] TBIL is not recommended. Chloride [Moles/Vol] 101 mmol/L 98-107 [facility] Eosinophils/100 WBC (Bld) 1.7 % 0-5 [facility] Glucose [Mass/Vol] 117 mg/dL 74-106 [facility] Comment on above: Fasting Glucose resu lt from 100 to 125 mg/dL suggests IMPAIRED HOMEOSTASIS per A.D.A. criteria. Neutrophils (Bld) [#/Vol] 4.5 10*3/uL 2.0-7.7 [facility] Neutrophils/100 WBC (Bld) 58.9 % 47-70 [facility] Potassium [Moles/Vol] 3.5 mmol/L 3.5-5.1 [facility] Protein [Mass/Vol] 7.5 g/dL 6.4-8.2 [facility] Sodium [Moles/Vol] 136 mmol/L 136-145 [facility] WBC (Bld) [#/Vol] 7.6 10*3/uL 4.4-11.0 [facility] Blood erythrocytes count (nu mber/volume)Ordered By: Dr. Osorio on 06-13-2022 RBC (Bld) [#/Vol] 4.11 10*6/uL 4.2-5.4 [facility] Blood hemoglobin measurement (mass/volume)Ordered By: Dr. Osorio on 06-13-2022 Hemoglobin (Bld) [Mass/Vol] 12.9 g/dL 12.0-15.0 [facility] Blood lymphocytes/100 leukoc ytesOrdered By: Dr. Osorio on 06-13-2022 Lymphocytes/100 WBC (Bld) 31.9 % 19-41 [facility] Blood monocytes/100 leukocyt esOrdered By: Dr. Osorio on 06-13-2022 Monocytes/100 WBC (Bld) 6.3 % 0-10 [facility] Blood platelet mean volumeOr dered By: Dr. Osorio on 06-13-2022 Platelet mean volume (Bld) [Entitic vol] 8.9 fL 6.2-12.0 [facility] Determination of erythrocyte mean corpuscular volume (MCV)Ordered By: Dr. Osorio on 06-13-2022 MCV (RBC) [Entitic vol] 94.9 fL 81-99 [facility] HIV 1 and HIV-2 antibody ass ay with HIV-1 p24 antigen detectionOrdered By: Nicolette Blair on 06-13-2022 HIV 1+2 Ab+HIV1 p24 Ag IA Ql Non-Reactive Nonreactive [facility] Hematocrit Auto (Bld) [Volum e fraction]Ordered By: Dr. Osorio on 06-13-2022 Hematocrit (Bld) [Volume fraction] 39.0 % 37-47 [facility] - Chemistry and C hemistry - challengeOrdered By: Dr. Osorio on 06-13-2022 ALP [Catalytic activity/Vol] 66 U/L 45-117 [facility] ALT [Catalytic activity/Vol] 22 U/L 13-56 [facility] CO2 [Moles/Vol] 28.0 mmol/L 21.0-32.0 [facility] Globulin (S) [Mass/Vol] 3.8 g/dL 2.2-4.2 [facility] Urea nitrogen/Creatinine [Mass ratio] 13.9 mg/mg 10-20 [facility] Laboratory - Chemistry and C hemistry - challengeOrdered By: Dr. Lou on 06-13-2022 Free T4 [Mass/Vol] 1.00 ng/dL 0.76-1.46 [facility] Laboratory - Hematology and Cell countsOrdered By: Dr. Osorio on 06-13-2022 Erythrocyte distribution width (RBC) [Entitic vol] 47.2 fL 35.1-43.9 [facility] Erythrocyte distribution width (RBC) [Ratio] 13.4 % 11.6-14.6 [facility] Immature granulocytes/100 WBC (Bld) 0.300 % 0.0-0.9 [facility] Comment on above: IG% - Immature Granu locytes (promyelocytes, myelocytes and metamyelocytes) > 1% indicates that a LEFT SHIFT is Present. MCH (RBC) [Entitic mass] 31.4 pg 27.0-32.0 [facility] Nucleated RBC/100 WBC (Bld) [Ratio] 0 % 0-5 [facility] MCHC Auto (RBC) [Mass/Vol]Or dered By: Dr. Osorio on 06-13-2022 MCHC (RBC) [Mass/Vol] 33.1 g/dL 32-36 [facility] No Panel InformationOrdered By: Dr. Osorio on 06-13-2022 Estimated GFR (MDRD) Amer 94 mL/min >60 [facility] Comment on above: GFR Calc Estimated GFR (MDRD) Non-Af Amer 77 mL/min >60 [facility] Comment on above: Non- GFR Calc No Panel InformationOrdered By: Nicolette Blair on 06-13-2022 Hepatitis B Surface Antigen Non-Reactive Nonreactive [facility] Hepatitis C Antibody Non-Reactive Nonreactive [facility] Comment on above: Non Reactive: < 0.8 Equivocal: >/= 0.8 to < 1.0 Reactive: >/= 1.0The CDC recommends that a reactive/equivocal HCV antibody result be followed up by the HCV Nucleic Acid Amplificationtest ([id number]) No Panel InformationOrdered By: Dr. Lou on 06-13-2022 Parathyroid Hormone (Intact) 138.9 pg/mL 18.4-80.1 [facility] Thyroid Stimulating Hormone (TSH) 0.99 uIU/mL 0.358-3.74 [facility] Vitamin D 25-Hydroxy 14.3 ng/mL [facility] Comment on above: Vitamin D 25(OH) Sta tus Range Deficiency <20 ng/mL (50nmol/L) Insufficiency 20 - 30 ng/mL (50 - 75 nmol/L) Sufficiency 30 - 100 ng/mL (75 - 250 nmol/L) Toxicity >100 ng/mL (>250 nmol/L) Platelets bldOrdered By: Dr. Osorio on 06-13-2022 Platelets (Bld) [#/Vol] 345 10*3/uL 150-450 [facility] Serum or plasma albumin sancho urement (mass/volume)Ordered By: Dr. Osorio on 06-13-2022 Albumin [Mass/Vol] 3.7 g/dL 3.2-5.0 [facility] Serum or plasma albumin/glob ulin mass ratioOrdered By: Dr. Osorio on 06-13-2022 Albumin/Globulin [Mass ratio] 1.0 {ratio} 0.9-2.4 [facility] Serum or plasma calcium sancho urement (mass/volume)Ordered By: Dr. Osorio on 06-13-2022 Calcium [Mass/Vol] 9.5 mg/dL 8.5-10.1 [facility] Serum or plasma creatinine m easurement (mass/volume)Ordered By: Dr. Osorio on 06-13-2022 Creatinine [Mass/Vol] 0.86 mg/dL 0.55-1.02 [facility] Comment on above: The validity of the calculated GFR & GFRAA in patients over 70 years has not been determined. Clinical correlation is essential. Serum or plasma thyroperoxid ase antibody assay (units/volume)Ordered By: Dr. Lou on 06-13-2022 TPO Ab Qn 26 [IU]/mL 0-34 [facility] Comment on above: Performed at: [place] [id number] Director: Levi Covarrubias PhD, Phone: [phone] Serum or plasma urea nitroge n measurement (mass/volume)Ordered By: Dr. Osorio on 06-13-2022 Urea nitrogen [Mass/Vol] 12 mg/dL 7-18 [facility] Thin prep Papanicolaou smear with manual screeningOrdered By: Dr. Osorio on 06-13-2022 Thin prep Papanicolaou smear with manual screening 13 U/L 15-37 [facility] Thin prep Papanicolaou smear with manual screening 7 5-15 [facility] Absolute lymphocyte countOrd ered By: Dr. Osorio on 04-22-2022 Lymphocytes Auto (Unsp spec) [#/Vol] 1.57 10*3/uL 0.83-4.51 [facility] Basophil percentageOrdered B y: Dr. Osorio on 04-22-2022 Basophils/100 WBC (Bld) 0.3 % 0-1 [facility] Bilirubin [Mass/Vol] 0.40 mg/dL 0.20-1.00 [facility] Comment on above: For patients on eltr ombopag therapy, use of [place] TBIL is not recommended. Chloride [Moles/Vol] 104 mmol/L 98-107 [facility] Eosinophils/100 WBC (Bld) 1.3 % 0-5 [facility] Glucose [Mass/Vol] 94 mg/dL 74-106 [facility] Neutrophils (Bld) [#/Vol] 5.4 10*3/uL 2.0-7.7 [facility] Neutrophils/100 WBC (Bld) 70.0 % 47-70 [facility] Potassium [Moles/Vol] 3.8 mmol/L 3.5-5.1 [facility] Protein [Mass/Vol] 8.2 g/dL 6.4-8.2 [facility] Sodium [Moles/Vol] 139 mmol/L 136-145 [facility] WBC (Bld) [#/Vol] 7.7 10*3/uL 4.4-11.0 [facility] Blood erythrocytes count (nu mber/volume)Ordered By: Dr. Osorio on 04-22-2022 RBC (Bld) [#/Vol] 4.47 10*6/uL 4.2-5.4 [facility] Blood hemoglobin measurement (mass/volume)Ordered By: Dr. Osorio on 04-22-2022 Hemoglobin (Bld) [Mass/Vol] 13.5 g/dL 12.0-15.0 [facility] Blood lymphocytes/100 leukoc ytesOrdered By: Dr. Osorio on 04-22-2022 Lymphocytes/100 WBC (Bld) 20.3 % 19-41 [facility] Blood monocytes/100 leukocyt esOrdered By: Dr. Osorio on 04-22-2022 Monocytes/100 WBC (Bld) 7.8 % 0-10 [facility] Blood platelet mean volumeOr dered By: Dr. Osorio on 04-22-2022 Platelet mean volume (Bld) [Entitic vol] 9.3 fL 6.2-12.0 [facility] Clostridium difficile detect ion by polymerase chain reactionOrdered By: Dirk Paula on 04-22-2022 C. difficile DNA TERESA+probe Ql (Unsp spec) [facility] Determination of erythrocyte mean corpuscular volume (MCV)Ordered By: Dr. Osorio on 04-22-2022 MCV (RBC) [Entitic vol] 94.0 fL 81-99 [facility] EP PanelOrdered By: Dirk viramontes on 04-22-2022 Gastrointestinal pathogens panel TERESA+probe (Stl) [facility] Hematocrit Auto (Bld) [Volum e fraction]Ordered By: Dr. Osorio on 04-22-2022 Hematocrit (Bld) [Volume fraction] 42.0 % 37-47 [facility] - Chemistry and C hemistry - challengeOrdered By: Dr. Osorio on 04-22-2022 ALP [Catalytic activity/Vol] 76 U/L 45-117 [facility] ALT [Catalytic activity/Vol] 29 U/L 13-56 [facility] CO2 [Moles/Vol] 26.0 mmol/L 21.0-32.0 [facility] Globulin (S) [Mass/Vol] 4.3 g/dL 2.2-4.2 [facility] Urea nitrogen/Creatinine [Mass ratio] 9.1 mg/mg 10-20 [facility] - Hematology and Cell countsOrdered By: Dr. Osorio on 04-22-2022 Erythrocyte distribution width (RBC) [Entitic vol] 44.7 fL 35.1-43.9 [facility] Erythrocyte distribution width (RBC) [Ratio] 13.2 % 11.6-14.6 [facility] Immature granulocytes/100 WBC (Bld) 0.300 % 0.0-0.9 [facility] Comment on above: IG% - Immature Granu locytes (promyelocytes, myelocytes and metamyelocytes) > 1% indicates that a LEFT SHIFT is Present. MCH (RBC) [Entitic mass] 30.2 pg 27.0-32.0 [facility] Nucleated RBC/100 WBC (Bld) [Ratio] 0 % 0-5 [facility] MCHC Auto (RBC) [Mass/Vol]Or dered By: Dr. Osorio on 04-22-2022 MCHC (RBC) [Mass/Vol] 32.1 g/dL 32-36 [facility] No Panel InformationOrdered By: Dr. Osorio on 04-22-2022 Estimated GFR (MDRD) Amer 71 mL/min >60 [facility] Comment on above: GFR Calc Estimated GFR (MDRD) Non-Af Amer 59 mL/min >60 [facility] Comment on above: Non- GFR Calc Platelets bldOrdered By: Dr. Osorio on 04-22-2022 Platelets (Bld) [#/Vol] 390 10*3/uL 150-450 [facility] Serum or plasma albumin sancho urement (mass/volume)Ordered By: Dr. Osorio on 04-22-2022 Albumin [Mass/Vol] 3.9 g/dL 3.2-5.0 [facility] Serum or plasma albumin/glob ulin mass ratioOrdered By: Dr. Osorio on 04-22-2022 Albumin/Globulin [Mass ratio] 0.9 {ratio} 0.9-2.4 [facility] Serum or plasma calcium sancho urement (mass/volume)Ordered By: Dr. Osorio on 04-22-2022 Calcium [Mass/Vol] 10.5 mg/dL 8.5-10.1 [facility] Serum or plasma creatinine m easurement (mass/volume)Ordered By: Dr. Osorio on 04-22-2022 Creatinine [Mass/Vol] 1.10 mg/dL 0.55-1.02 [facility] Comment on above: The validity of the calculated GFR & GFRAA in patients over 70 years has not been determined. Clinical correlation is essential. Serum or plasma urea nitroge n measurement (mass/volume)Ordered By: Dr. Osorio on 04-22-2022 Urea nitrogen [Mass/Vol] 10 mg/dL 7-18 [facility] Thin prep Papanicolaou smear with manual screeningOrdered By: Dr. Osorio on 04-22-2022 Thin prep Papanicolaou smear with manual screening 23 U/L 15-37 [facility] Thin prep Papanicolaou smear with manual screening 9 5-15 [facility] Absolute lymphocyte counton 03-22-2022 Lymphocytes Auto (Unsp spec) [#/Vol] 2.15 10*3/uL 0.83-4.51 [facility] Work Phone: Absolute reticulocyte counto n 03-22-2022 Reticulocytes (Bld) [#/Vol] 0.00 10*3/uL 0-5 [facility] Work Phone: Basophil percentageon 2021 Basophil percentage 3.3 mg/dL 2.5-4.9 [facility] Work Phone: Bilirubin [Mass/Vol] 0.40 mg/dL 0.20-1.00 [facility] Work Phone: Comment on above: For patients on eltr ombopag therapy, use of [place] TBIL is not recommended. Chloride [Moles/Vol] 105 mmol/L 98-107 [facility] Work Phone: [phone] Cholesterol [Mass/Vol] 162 mg/dL <200 [facility] Work Phone: Comment on above: <200 mg/dL Desirable 200-240 mg/dL Borderline >240 mg/dL High Risk Glucose [Mass/Vol] 103 mg/dL 74-106 [facility] Work Phone: Comment on above: Fasting Glucose resu lt from 100 to 125 mg/dL suggests IMPAIRED HOMEOSTASIS per A.D.A. criteria. Neutrophils (Bld) [#/Vol] 4.1 10*3/uL 2.0-7.7 [facility] Work Phone: [phone] Potassium [Moles/Vol] 3.9 mmol/L 3.5-5.1 [facility] Work Phone: [phone] Protein [Mass/Vol] 7.1 g/dL 6.4-8.2 [facility] Work Phone: [phone] Sodium [Moles/Vol] 139 mmol/L 136-145 [facility] Work Phone: Triglyceride [Mass/Vol] 109 mg/dL <199 [facility] Work Phone: Comment on above: The drugs N-Acetylcy steine and Metamizole may falsely depress this assay.Serum Triglycerides Reference Interval Normal <150 mg/dL Borderline high 150 - 199 mg/dL High 200 - 499 mg/dL Very High > or = 500 mg/dL WBC (Bld) [#/Vol] 7.0 10*3/uL 4.4-11.0 [facility] Work Phone: Bilirubin Test strip Ql (U)o n 03-22-2022 Bilirubin Ql (U) Negative Negative [facility] Work Phone: Blood erythrocytes count (nu mber/volume)on 03-22-2022 RBC (Bld) [#/Vol] 3.97 10*6/uL 4.2-5.4 [facility] Work Phone: Blood hemoglobin measurement (mass/volume)on 03-22-2022 Hemoglobin (Bld) [Mass/Vol] 12.1 g/dL 12.0-15.0 [facility] Work Phone: Blood platelet mean volumeon 03-22-2022 Platelet mean volume (Bld) [Entitic vol] 9.6 fL 6.2-12.0 [facility] Work Phone: Determination of erythrocyte mean corpuscular volume (MCV)on 03-22-2022 MCV (RBC) [Entitic vol] 95.5 fL 81-99 [facility] Work Phone: Direct bilirubinon 2 Bilirubin.direct [Mass/Vol] 0.11 mg/dL 0.00-0.30 [facility] Work Phone: Hematocrit Auto (Bld) [Volum e fraction]on 03-22-2022 Hematocrit (Bld) [Volume fraction] 37.9 % 37-47 [facility] Work Phone: Ketones Test strip Ql (U)on 03-22-2022 Ketones Ql (U) Negative Negative [facility] Work Phone: Laboratory - Chemistry and C hemistry - challengeon 03-22-2022 ALP [Catalytic activity/Vol] 60 U/L 45-117 [facility] Work Phone: [phone] ALT [Catalytic activity/Vol] 17 U/L 13-56 [facility] Work Phone: Cholesterol.total/Cho lesterol in HDL [Mass ratio] 2.80 {ratio} [facility] Work Phone: [phone] CO2 [Moles/Vol] 27.0 mmol/L 21.0-32.0 [facility] Work Phone: [phone] Free T4 [Mass/Vol] 1.03 ng/dL 0.76-1.46 [facility] Work Phone: [phone] Globulin (S) [Mass/Vol] 3.7 g/dL 2.2-4.2 [facility] Work Phone: [phone] Urea nitrogen/Creatinine [Mass ratio] 13.0 mg/mg 10-20 [facility] Work Phone: [phone] Laboratory - Hematology and Cell countson 03-22-2022 Erythrocyte distribution width (RBC) [Entitic vol] 45.8 fL 35.1-43.9 [facility] Work Phone: [phone] Erythrocyte distribution width (RBC) [Ratio] 13.1 % 11.6-14.6 [facility] Work Phone: [phone] MCH (RBC) [Entitic mass] 30.5 pg 27.0-32.0 [facility] Work Phone: [phone] Nucleated RBC/100 WBC (Bld) [Ratio] 0 % 0-5 [facility] Work Phone: [phone] MCHC Auto (RBC) [Mass/Vol]on 03-22-2022 MCHC (RBC) [Mass/Vol] 31.9 g/dL 32-36 [facility] Work Phone: [phone] Nitrite Test strip Ql (U)on 03-22-2022 Nitrite Ql (U) Negative Negative [facility] Work Phone: [phone] No Panel Informationon 03-22 Estimated GFR (MDRD) Amer 96 mL/min >60 [facility] Work Phone: Comment on above: GFR Calc Estimated GFR (MDRD) Non-Af Amer 79 mL/min >60 [facility] Work Phone: Comment on above: Non- GFR Calc Thyroid Stimulating Hormone (TSH) 0.35 uIU/mL 0.358-3.74 [facility] Work Phone: Platelets bldon 03-22-2022 Platelets (Bld) [#/Vol] 316 10*3/uL 150-450 [facility] Work Phone: Protein Test strip Ql (U)on 03-22-2022 Protein Ql (U) Negative Negative [facility] Work Phone: Segmented neutrophils/100 WB C Auto (Bld)on 03-22-2022 Segmented neutrophils/100 WBC (Bld) 58.9 % 47-70 [facility] Work Phone: Serum or plasma albumin sancho urement (mass/volume)on 03-22-2022 Albumin [Mass/Vol] 3.4 g/dL 3.2-5.0 [facility] Work Phone: Serum or plasma albumin/glob ulin mass ratioon 03-22-2022 Albumin/Globulin [Mass ratio] 0.9 {ratio} 0.9-2.4 [facility] Work Phone: Serum or plasma calcium sancho urement (mass/volume)on 03-22-2022 Calcium [Mass/Vol] 9.6 mg/dL 8.5-10.1 [facility] Work Phone: Serum or plasma cholesterol in HDL measurement (mass/volume)on 03-22-2022 Cholesterol in HDL [Mass/Vol] 57 mg/dL >40 [facility] Work Phone: Comment on above: The drugs N-Acetylcy steine and Metamizole may falsely depress this assay. Reference Range HDL <40 mg/dL Low HDL Cholesterol HDL >or= 60 mg/dL High HDL Cholesterol Serum or plasma cholesterol in VLDL measurement (mass/volume)on 03-22-2022 Cholesterol in VLDL [Mass/Vol] 22 mg/dL 5-40 [facility] Work Phone: Serum or plasma creatinine m easurement (mass/volume)on 03-22-2022 Creatinine [Mass/Vol] 0.85 mg/dL 0.55-1.02 [facility] Work Phone: Comment on above: The validity of the calculated GFR & GFRAA in patients over 70 years has not been determined. Clinical correlation is essential. Serum or plasma low density lipoprotein (LDL) cholesterol measurement (mass/volume)on 03-22-2022 Cholesterol in LDL [Mass/Vol] 83 mg/dL 0-130 [facility] Work Phone: Serum or plasma urea nitroge n measurement (mass/volume)on 03-22-2022 Urea nitrogen [Mass/Vol] 11 mg/dL 7-18 [facility] Work Phone: Serum or plasma uric acid me asurement (mass/volume)on 03-22-2022 Urate [Mass/Vol] 7.0 mg/dL 2.6-6.0 [facility] Work Phone: Comment on above: The drugs N-Acetylcy steine and Metamizole may falsely depress this assay. Thin prep Papanicolaou smear with manual screeningon 03-22-2022 Thin prep Papanicolaou smear with manual screening 13 U/L 15-37 [facility] Work Phone: Thin prep Papanicolaou smear with manual screening 7 5-15 [facility] Work Phone: Thin prep Papanicolaou smear with manual screening 215 U/L 84-246 [facility] Work Phone: Urine blood detectionon RBC Ql (U) Negative Negative [facility] Work Phone: Urine clarityon 03-22-2022 Clarity (U) Clear Clear [facility] Work Phone: Urine color determinationon 03-22-2022 Color (U) Straw Yellow [facility] Work Phone: Urine glucose detectionon Glucose Ql (U) Normal mg/dl Normal [facility] Work Phone: Urine leukocyte esterase det ection by dipstickon 03-22-2022 Leukocyte esterase Test strip Ql (U) Negative Negative [facility] Work Phone: Urine pHon 03-22-2022 pH (U) 7.0 [pH] 5.0 - 8.0 [facility] Work Phone: Urine specific gravity measu rementon 03-22-2022 Specific gravity (U) [Rel density] 1.010 1.002-1.030 [facility] Work Phone: Urobilinogen Auto test strip Ql (U)on 03-22-2022 Urobilinogen Ql (U) Normal mg/dl Normal [facility] Work Phone: HIV 1 and HIV-2 antibody ass ay with HIV-1 p24 antigen detectionon 03-07-2022 HIV 1+2 Ab+HIV1 p24 Ag IA Ql Non-Reactive Nonreactive [facility] Work Phone: No Panel Informationon 03-07 Hepatitis B Surface Antigen Non-Reactive Nonreactive [facility] Work Phone: Hepatitis C Antibody Non-Reactive Nonreactive [facility] Work Phone: Comment on above: Non Reactive: < 0.8 Equivocal: >/= 0.8 to < 1.0 Reactive: >/= 1.0The CDC recommends that a reactive/equivocal HCV antibody result be followed up by the HCV Nucleic Acid Amplificationtest (165433) Serum hepatitis B virus surf tracy antibody IgG detectionon 03-07-2022 HBV surface IgG Ql (S) Reactive [facility] Work Phone: Comment on above: Non Reactive: Incons istent with immunity less than <10 mIU/mL Reactive: Consistent with immunity greater than or equal to 10 mIU/mL Laboratory - Microbiology an d Antimicrobial susceptibilityon 02-10-2022 SARS-CoV-2 (COVID-19) RNA TERESA+probe Ql (Unsp spec) Detected [facility] Work Phone: No Panel Informationon 02-10 Influenza Types A,B Rapid (Clinic) Not detected [facility] Work Phone: Absolute lymphocyte counton 01-11-2022 Lymphocytes Auto (Unsp spec) [#/Vol] 1.75 10*3/uL 0.83-4.51 [facility] Work Phone: Basophil percentageon 2021 Basophils/100 WBC (Bld) 0.8 % 0-1 [facility] Work Phone: Bilirubin [Mass/Vol] 0.30 mg/dL 0.20-1.00 [facility] Work Phone: Comment on above: For patients on eltr ombopag therapy, use of [place] TBIL is not recommended. Chloride [Moles/Vol] 103 mmol/L 98-107 [facility] Work Phone: Eosinophils/100 WBC (Bld) 2.5 % 0-5 [facility] Work Phone: Glucose [Mass/Vol] 93 mg/dL 74-106 [facility] Work Phone: Neutrophils (Bld) [#/Vol] 4.9 10*3/uL 2.0-7.7 [facility] Work Phone: Neutrophils/100 WBC (Bld) 65.7 % 47-70 [facility] Work Phone: Potassium [Moles/Vol] 3.9 mmol/L 3.5-5.1 [facility] Work Phone: Protein [Mass/Vol] 7.5 g/dL 6.4-8.2 [facility] Work Phone: Sodium [Moles/Vol] 138 mmol/L 136-145 [facility] Work Phone: WBC (Bld) [#/Vol] 7.5 10*3/uL 4.4-11.0 [facility] Work Phone: Blood erythrocytes count (nu mber/volume)on 01-11-2022 RBC (Bld) [#/Vol] 3.88 10*6/uL 4.2-5.4 [facility] Work Phone: [phone] Blood hemoglobin measurement (mass/volume)on 01-11-2022 Hemoglobin (Bld) [Mass/Vol] 12.4 g/dL 12.0-15.0 [facility] Work Phone: Blood lymphocytes/100 leukoc yteson 01-11-2022 Lymphocytes/100 WBC (Bld) 23.3 % 19-41 [facility] Work Phone: Blood monocytes/100 leukocyt eson 01-11-2022 Monocytes/100 WBC (Bld) 7.3 % 0-10 [facility] Work Phone: Blood platelet mean volumeon 01-11-2022 Platelet mean volume (Bld) [Entitic vol] 9.5 fL 6.2-12.0 [facility] Work Phone: [phone] Determination of erythrocyte mean corpuscular volume (MCV)on 01-11-2022 MCV (RBC) [Entitic vol] 109.3 fL 81-99 [facility] Work Phone: [phone] Hematocrit Auto (Bld) [Volum e fraction]on 01-11-2022 Hematocrit (Bld) [Volume fraction] 42.4 % 37-47 [facility] Work Phone: [phone] Laboratory - Chemistry and C hemistry - challengeon 01-11-2022 Free T4 [Mass/Vol] 0.96 ng/dL 0.76-1.46 [facility] Work Phone: [phone] ALP [Catalytic activity/Vol] 72 U/L 45-117 [facility] Work Phone: [phone] ALT [Catalytic activity/Vol] 18 U/L 13-56 [facility] Work Phone: [phone] CO2 [Moles/Vol] 30.0 mmol/L 21.0-32.0 [facility] Work Phone: [phone] Globulin (S) [Mass/Vol] 3.9 g/dL 2.2-4.2 [facility] Work Phone: Urea nitrogen/Creatinine [Mass ratio] 8.1 mg/mg 10-20 [facility] Work Phone: [phone] Laboratory - Hematology and Cell countson 01-11-2022 Erythrocyte distribution width (RBC) [Entitic vol] 57.1 fL 35.1-43.9 [facility] Work Phone: Erythrocyte distribution width (RBC) [Ratio] 14.1 % 11.6-14.6 [facility] Work Phone: Immature granulocytes/100 WBC (Bld) 0.400 % 0.0-0.9 [facility] Work Phone: Comment on above: IG% - Immature Granu locytes (promyelocytes, myelocytes and metamyelocytes) > 1% indicates that a LEFT SHIFT is Present. MCH (RBC) [Entitic mass] 32.0 pg 27.0-32.0 [facility] Work Phone: Nucleated RBC/100 WBC (Bld) [Ratio] 0 % 0-5 [facility] Work Phone: MCHC Auto (RBC) [Mass/Vol]on 01-11-2022 MCHC (RBC) [Mass/Vol] 29.2 g/dL 32-36 [facility] Work Phone: No Panel Informationon 01-11 Thyroid Stimulating Hormone (TSH) 0.32 uIU/mL 0.358-3.74 [facility] Work Phone: Estimated GFR (MDRD) Amer 112 mL/min >60 [facility] Work Phone: Comment on above: GFR Calc Estimated GFR (MDRD) Non-Af Amer 93 mL/min >60 [facility] Work Phone: Comment on above: Non- GFR Calc Platelets bldon 01-11-2022 Platelets (Bld) [#/Vol] 255 10*3/uL 150-450 [facility] Work Phone: Serum or plasma albumin sancho urement (mass/volume)on 01-11-2022 Albumin [Mass/Vol] 3.6 g/dL 3.2-5.0 [facility] Work Phone: Serum or plasma albumin/glob ulin mass ratioon 01-11-2022 Albumin/Globulin [Mass ratio] 0.9 {ratio} 0.9-2.4 [facility] Work Phone: Serum or plasma calcium sancho urement (mass/volume)on 01-11-2022 Calcium [Mass/Vol] 9.8 mg/dL 8.5-10.1 [facility] Work Phone: Serum or plasma creatinine m easurement (mass/volume)on 01-11-2022 Creatinine [Mass/Vol] 0.74 mg/dL 0.55-1.02 [facility] Work Phone: Comment on above: The validity of the calculated GFR & GFRAA in patients over 70 years has not been determined. Clinical correlation is essential. Serum or plasma urea nitroge n measurement (mass/volume)on 01-11-2022 Urea nitrogen [Mass/Vol] 6 mg/dL 7-18 [facility] Work Phone: Thin prep Papanicolaou smear with manual screeningon 01-11-2022 Thin prep Papanicolaou smear with manual screening 12 U/L 15-37 [facility] Work Phone: Thin prep Papanicolaou smear with manual screening 5 5-15 [facility] Work Phone: Absolute lymphocyte counton 12-27-2021 Lymphocytes Auto (Unsp spec) [#/Vol] 2.52 10*3/uL 0.83-4.51 [facility] Work Phone: Basophil percentageon 2021 Chloride [Moles/Vol] 103 mmol/L 98-107 [facility] Work Phone: Glucose [Mass/Vol] 84 mg/dL 74-106 [facility] Work Phone: Potassium [Moles/Vol] 3.9 mmol/L 3.5-5.1 [facility] Work [facility]: Sodium [Moles/Vol] 138 mmol/L 136-145 [facility] Work Phone: Basophils/100 WBC (Bld) 0.6 % 0-1 [facility] Work Phone: Eosinophils/100 WBC (Bld) 2.6 % 0-5 [facility] Work Phone: Neutrophils (Bld) [#/Vol] 3.6 10*3/uL 2.0-7.7 [facility] Work Phone: Neutrophils/100 WBC (Bld) 53.3 % 47-70 [facility] Work Phone: WBC (Bld) [#/Vol] 6.8 10*3/uL 4.4-11.0 [facility] Work Phone: Blood erythrocytes count (nu mber/volume)on 12-27-2021 RBC (Bld) [#/Vol] 4.19 10*6/uL [facility].2-[facility]4 [facility] Blood hemoglobin measurement (mass/volume)on 12-27-2021 Hemoglobin (Bld) [Mass/Vol] 12.8 g/dL 12.0-15.0 [facility] Work Phone: Blood lymphocytes/100 leukoc yteson 12-27-2021 Lymphocytes/100 WBC (Bld) 37.0 % 19-41 [facility] Work Phone: Blood monocytes/100 leukocyt eson 12-27-2021 Monocytes/100 WBC (Bld) 6.2 % 0-10 [facility] Work Phone: Blood platelet mean volumeon 12-27-2021 Platelet mean volume (Bld) [Entitic vol] 9.8 fL 6.2-12.0 [facility] Work Phone: Determination of erythrocyte mean corpuscular volume (MCV)on 12-27-2021 MCV (RBC) [Entitic vol] 95.5 fL 81-99 [facility] Work Phone: [phone] Hematocrit Auto (Bld) [Volum e fraction]on 12-27-2021 Hematocrit (Bld) [Volume fraction] 40.0 % 37-47 [facility] Work Phone: Iron measurement (mass/mass) on 12-27-2021 Iron (Unsp spec) [Mass/Mass] 55 ug/dL 50-170 [facility] Work Phone: [phone] Laboratory - Chemistry and C hemistry - challengeon 12-27-2021 CO2 [Moles/Vol] 29.0 mmol/L 21.0-32.0 [facility] Work Phone: [phone] Urea nitrogen/Creatinine [Mass ratio] 10.8 mg/mg 10-20 [facility] Work Phone: [phone] Laboratory - Hematology and Cell countson 12-27-2021 Erythrocyte distribution width (RBC) [Entitic vol] 46.8 fL 35.1-43.9 [facility] Work Phone: [phone] Erythrocyte distribution width (RBC) [Ratio] 13.2 % 11.6-14.6 [facility] Work Phone: [phone] Immature granulocytes/100 WBC (Bld) 0.300 % 0.0-0.9 [facility] Work Phone: [phone] Comment on above: IG% - Immature Granu locytes (promyelocytes, myelocytes and metamyelocytes) > 1% indicates that a LEFT SHIFT is Present. MCH (RBC) [Entitic mass] 30.5 pg 27.0-32.0 [facility] Work Phone: [phone] Nucleated RBC/100 WBC (Bld) [Ratio] 0 % 0-5 [facility] Work Phone: [phone] MCHC Auto (RBC) [Mass/Vol]on 12-27-2021 MCHC (RBC) [Mass/Vol] 32.0 g/dL 32-36 [facility] Work Phone: No Panel Informationon 12-27 Estimated GFR (MDRD) Amer 86 mL/min >60 [facility] Work Phone: Comment on above: GFR Calc Estimated GFR (MDRD) Non-Af Amer 71 mL/min >60 [facility] Work Phone: Comment on above: Non- GFR Calc Total Iron Binding Capacity 413 ug/dL 250-450 [facility] Work Phone: Platelets bldon 12-27-2021 Platelets (Bld) [#/Vol] 346 10*3/uL 150-450 [facility] Work Phone: Serum or plasma calcium sancho urement (mass/volume)on 12-27-2021 Calcium [Mass/Vol] 9.6 mg/dL 8.5-10.1 [facility] Work Phone: Serum or plasma creatinine m easurement (mass/volume)on 12-27-2021 Creatinine [Mass/Vol] 0.93 mg/dL 0.55-1.02 [facility] Work Phone: Comment on above: The validity of the calculated GFR & GFRAA in patients over 70 years has not been determined. Clinical correlation is essential. Serum or plasma ferritin vinayak surement (mass/volume)on 12-27-2021 Ferritin [Mass/Vol] 36 ng/mL 8-252 [facility] Work Phone: Serum or plasma iron saturat ion measurement (mass fraction)on 12-27-2021 Iron saturation [Mass fraction] 13.3 % 15.0-55.0 [facility] Work Phone: Serum or plasma urea nitroge n measurement (mass/volume)on 12-27-2021 Urea nitrogen [Mass/Vol] 10 mg/dL 7-18 [facility] Work Phone: Thin prep Papanicolaou smear with manual screeningon 12-27-2021 Thin prep Papanicolaou smear with manual screening 6 5-15 [facility] Work Phone: Absolute lymphocyte counton 10-21-2021 Lymphocytes Auto (Unsp spec) [#/Vol] 1.87 10*3/uL 0.83-4.51 [facility] Work Phone: Basophil percentageon 2021 Basophils/100 WBC (Bld) 0.8 % 0-1 [facility] Work Phone: Eosinophils/100 WBC (Bld) 2.0 % 0-5 [facility] Work Phone: Neutrophils (Bld) [#/Vol] 3.8 10*3/uL 2.0-7.7 [facility] Work Phone: Neutrophils/100 WBC (Bld) 59.2 % 47-70 [facility] Work Phone: WBC (Bld) [#/Vol] 6.5 10*3/uL 4.4-11.0 [facility] Work Phone: Bilirubin [Mass/Vol] 0.20 mg/dL 0.20-1.00 [facility] Work Phone: Comment on above: For patients on eltr ombopag therapy, use of [place] TBIL is not recommended. Chloride [Moles/Vol] 105 mmol/L 98-107 [facility] Work Phone: Glucose [Mass/Vol] 83 mg/dL 74-106 [facility] Work Phone: Potassium [Moles/Vol] 4.1 mmol/L 3.5-5.1 [facility] Work Phone: Protein [Mass/Vol] 7.3 g/dL 6.4-8.2 [facility] Work Phone: Sodium [Moles/Vol] 137 mmol/L 136-145 [facility] Work Phone: Blood erythrocytes count (nu mber/volume)on 10-21-2021 RBC (Bld) [#/Vol] 3.78 10*6/uL 4.2-5.4 [facility] Work Phone: Blood hemoglobin measurement (mass/volume)on 10-21-2021 Hemoglobin (Bld) [Mass/Vol] 11.6 g/dL 12.0-15.0 [facility] Work Phone: Blood lymphocytes/100 leukoc yteson 10-21-2021 Lymphocytes/100 WBC (Bld) 28.9 % 19-41 [facility] Work Phone: Blood monocytes/100 leukocyt eson 10-21-2021 Monocytes/100 WBC (Bld) 8.8 % 0-10 [facility] Work Phone: Blood platelet mean volumeon 10-21-2021 Platelet mean volume (Bld) [Entitic vol] 9.4 fL 6.2-12.0 [facility] Work Phone: [phone] Determination of erythrocyte mean corpuscular volume (MCV)on 10-21-2021 MCV (RBC) [Entitic vol] 96.6 fL 81-99 [facility] Work Phone: [phone] Hematocrit Auto (Bld) [Volum e fraction]on 10-21-2021 Hematocrit (Bld) [Volume fraction] 36.5 % 37-47 [facility] Work Phone: [phone] Laboratory - Chemistry and C hemistry - challengeon 10-21-2021 ALP [Catalytic activity/Vol] 62 U/L 45-117 [facility] Work Phone: [phone] ALT [Catalytic activity/Vol] 22 U/L 13-56 [facility] Work Phone: [phone] CO2 [Moles/Vol] 29.0 mmol/L 21.0-32.0 [facility] Work Phone: [phone] Free T4 [Mass/Vol] 1.08 ng/dL 0.76-1.46 [facility] Work Phone: [phone] Globulin (S) [Mass/Vol] 3.9 g/dL 2.2-4.2 [facility] Work Phone: [phone] Urea nitrogen/Creatinine [Mass ratio] 12.0 mg/mg 10-20 [facility] Work Phone: [phone] Laboratory - Hematology and Cell countson 10-21-2021 Erythrocyte distribution width (RBC) [Entitic vol] 46.0 fL 35.1-43.9 [facility] Work Phone: Erythrocyte distribution width (RBC) [Ratio] 13.1 % 11.6-14.6 [facility] Work Phone: Immature granulocytes/100 WBC (Bld) 0.300 % 0.0-0.9 [facility] Work Phone: Comment on above: IG% - Immature Granu locytes (promyelocytes, myelocytes and metamyelocytes) > 1% indicates that a LEFT SHIFT is Present. MCH (RBC) [Entitic mass] 30.7 pg 27.0-32.0 [facility] Work Phone: Nucleated RBC/100 WBC (Bld) [Ratio] 0 % 0-5 [facility] Work Phone: MCHC Auto (RBC) [Mass/Vol]on 10-21-2021 MCHC (RBC) [Mass/Vol] 31.8 g/dL 32-36 [facility] Work Phone: No Panel Informationon 10-21 Estimated GFR (MDRD) Amer 98 mL/min >60 [facility] Work Phone: Comment on above: GFR Calc Estimated GFR (MDRD) Non-Af Amer 81 mL/min >60 [facility] Work Phone: Comment on above: Non- GFR Calc Thyroid Stimulating Hormone (TSH) 0.15 uIU/mL 0.358-3.74 [facility] Work Phone: Platelets bldon 10-21-2021 Platelets (Bld) [#/Vol] 306 10*3/uL 150-450 [facility] Work Phone: Serum or plasma albumin sancho urement (mass/volume)on 10-21-2021 Albumin [Mass/Vol] 3.4 g/dL 3.2-5.0 [facility] Work Phone: Serum or plasma albumin/glob ulin mass ratioon 10-21-2021 Albumin/Globulin [Mass ratio] 0.9 {ratio} 0.9-2.4 [facility] Work Phone: Serum or plasma calcium sancho urement (mass/volume)on 10-21-2021 Calcium [Mass/Vol] 9.2 mg/dL 8.5-10.1 [facility] Work Phone: Serum or plasma creatinine m easurement (mass/volume)on 10-21-2021 Creatinine [Mass/Vol] 0.83 mg/dL 0.55-1.02 [facility] Work Phone: Comment on above: The validity of the calculated GFR & GFRAA in patients over 70 years has not been determined. Clinical correlation is essential. Serum or plasma urea nitroge n measurement (mass/volume)on 10-21-2021 Urea nitrogen [Mass/Vol] 10 mg/dL 7-18 [facility] Work Phone: Thin prep Papanicolaou smear with manual screeningon 10-21-2021 Thin prep Papanicolaou smear with manual screening 13 U/L 15-37 [facility] Work Phone: Thin prep Papanicolaou smear with manual screening 3 5-15 [facility] Work Phone: Bilirubin Test strip Ql (U)o n 09-14-2021 Bilirubin Ql (U) Negative Negative [facility] Work Phone: Ketones Test strip Ql (U)on 09-14-2021 Ketones Ql (U) Negative Negative [facility] Work Phone: Nitrite Test strip Ql (U)on 09-14-2021 Nitrite Ql (U) Negative Negative [facility] Work Phone: Protein Test strip Ql (U)on 09-14-2021 Protein Ql (U) Negative Negative [facility] Work Phone: Urine blood detectionon 03-0 RBC Ql (U) Negative Negative [facility] Work Phone: Urine clarityon 09-14-2021 Clarity (U) Clear Clear [facility] Work Phone: [phone] Urine color determinationon 09-14-2021 Color (U) Yellow Yellow [facility] Work Phone: [phone] Urine creatinine measurement (mass/volume)on 09-14-2021 Creatinine (U) [Mass/Vol] 20.20 mg/dL NO RANGE EST. [facility] Work Phone: Urine glucose detectionon Glucose Ql (U) Normal mg/dl Normal [facility] Work Phone: [phone] Urine leukocyte esterase det ection by dipstickon 09-14-2021 Leukocyte esterase Test strip Ql (U) Negative Negative [facility] Work Phone: [phone] Urine pHon 09-14-2021 pH (U) 7.0 [pH] 5.0 - 8.0 [facility] Work Phone: [phone] Urine protein measurement (m ass/volume)on 09-14-2021 Protein (U) [Mass/Vol] mg/dL 0.0-11.8 [facility] Work Phone: [phone] Urine specific gravity measu rementon 09-14-2021 Specific gravity (U) [Rel density] 1.005 1.002-1.030 [facility] Work Phone: [phone] Urobilinogen Auto test strip Ql (U)on 09-14-2021 Urobilinogen Ql (U) Normal mg/dl Normal [facility] Work Phone: [phone] Absolute lymphocyte counton 09-13-2021 Lymphocytes Auto (Unsp spec) [#/Vol] 1.48 10*3/uL 0.83-4.51 [facility] Work Phone: Basophil percentageon 2021 Basophil percentage 4.7 AI 0.0-0.9 [facility] Work Phone: Basophil percentage < 0.2 AI 0.0-0.9 [facility] Work Phone: Basophils/100 WBC (Bld) 0.7 % 0-1 [facility] Work Phone: Bilirubin [Mass/Vol] 0.30 mg/dL 0.20-1.00 [facility] Work Phone: Comment on above: For patients on eltr ombopag therapy, use of [place] TBIL is not recommended. Chloride [Moles/Vol] 105 mmol/L 98-107 [facility] Work Phone: Eosinophils/100 WBC (Bld) 1.8 % 0-5 [facility] Work Phone: Glucose [Mass/Vol] 96 mg/dL 74-106 [facility] Work Phone: Neutrophils (Bld) [#/Vol] 3.9 10*3/uL 2.0-7.7 [facility] Work Phone: Neutrophils/100 WBC (Bld) 64.9 % 47-70 [facility] Work Phone: Potassium [Moles/Vol] 3.9 mmol/L 3.5-5.1 [facility] Work Phone: Protein [Mass/Vol] 7.4 g/dL 6.4-8.2 [facility] Work Phone: Sodium [Moles/Vol] 139 mmol/L 136-145 [facility] Work Phone: WBC (Bld) [#/Vol] 6.0 10*3/uL 4.4-11.0 [facility] Work Phone: Blood erythrocytes count (nu mber/volume)on 09-13-2021 RBC (Bld) [#/Vol] 3.76 10*6/uL 4.2-5.4 [facility] Work Phone: Blood hemoglobin measurement (mass/volume)on 09-13-2021 Hemoglobin (Bld) [Mass/Vol] 11.7 g/dL 12.0-15.0 [facility] Work Phone: Blood lymphocytes/100 leukoc yteson 02-28-2022 Lymphocytes/100 WBC (Bld) 24.7 % 19-41 [facility] Work Phone: Blood monocytes/100 leukocyt eson 09-13-2021 Monocytes/100 WBC (Bld) 7.7 % 0-10 [facility] Work Phone: Blood platelet mean volumeon 09-13-2021 Platelet mean volume (Bld) [Entitic vol] 9.3 fL 6.2-12.0 [facility] Work Phone: CNOVon 09-13-2021 CNOV Office Visit (RHBATH ) ALMA ADEN ([id number]) 1980 F Date Time Provider Department 09/13/21 [...] with: Sjogren's Disease New Patient HPI: Alma M Aden is a 41 year old female [...] the mornings and evenings. 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 Swelling in hands towards the end of [...] (more content not included)... Normal [facility] 09-13-2021 FLY Telephone (KORIN) ALMA ADEN ([id number]) 1980 F Date Time Provider Department 09/13/21 [...] Status:Closed by MOSES LEE on 09/15/21 Normal [facility] Determination of erythrocyte mean corpuscular volume (MCV)on 09-13-2021 MCV (RBC) [Entitic vol] 95.2 fL 81-99 [facility] Work Phone: Hematocrit Auto (Bld) [Volum e fraction]on 09-13-2021 Hematocrit (Bld) [Volume fraction] 35.8 % 37-47 [facility] Work Phone: Iron measurement (mass/mass) on 09-13-2021 Iron (Unsp spec) [Mass/Mass] 65 ug/dL 50-170 [facility] Work Phone: Laboratory - Chemistry and C hemistry - challengeon 09-13-2021 ALP [Catalytic activity/Vol] 64 U/L 45-117 [facility] Work Phone: ALT [Catalytic activity/Vol] 25 U/L 13-56 [facility] Work Phone: CK [Catalytic activity/Vol] 62 U/L 26-192 [facility] Work Phone: CO2 [Moles/Vol] 29.0 mmol/L 21.0-32.0 [facility] Work Phone: Cobalamin (Vitamin B12) [Mass/Vol] 405 pg/mL 211-911 [facility] Work Phone: [phone] Globulin (S) [Mass/Vol] 3.8 g/dL 2.2-4.2 [facility] Work Phone: [phone] Urea nitrogen/Creatinine [Mass ratio] 14.5 mg/mg 10-20 [facility] Work Phone: [phone] Laboratory - Hematology and Cell countson 09-13-2021 Erythrocyte distribution width (RBC) [Entitic vol] 47.2 fL 35.1-43.9 [facility] Work Phone: [phone] Erythrocyte distribution width (RBC) [Ratio] 13.5 % 11.6-14.6 [facility] Work Phone: [phone] Immature granulocytes/100 WBC (Bld) 0.200 % 0.0-0.9 [facility] Work Phone: [phone] Comment on above: IG% - Immature Granu locytes (promyelocytes, myelocytes and metamyelocytes) > 1% indicates that a LEFT SHIFT is Present. MCH (RBC) [Entitic mass] 31.1 pg 27.0-32.0 [facility] Work Phone: [phone] Nucleated RBC/100 WBC (Bld) [Ratio] 0 % 0-5 [facility] Work Phone: [phone] MCHC Auto (RBC) [Mass/Vol]on 09-13-2021 MCHC (RBC) [Mass/Vol] 32.7 g/dL 32-36 [facility] Work Phone: [phone] No Panel Informationon 09-13 Anti-Gliadin IgA Antibody 4 units 0-19 [facility] Work Phone: Comment on above: Negative 0 - 19 Weak Positive 20 - 30 Moderate to Strong Positive >30 Anti-Gliadin IgG Antibody 2 units 0-19 [facility] Work Phone: Comment on above: Negative 0 - 19 Weak Positive 20 - 30 Moderate to Strong Positive >30 Estimated GFR (MDRD) Amer 121 mL/min >60 [facility] Work Phone: Comment on above: GFR Calc Estimated GFR (MDRD) Non-Af Amer 100 mL/min >60 [facility] Work Phone: Comment on above: Non- GFR Calc PROJECT ADMINISTRATIVE ASSISTANT Antibody 0.4 AI 0.0-0.9 [facility] Work Phone: Tissue Transglutaminase IgG Ab <2 U/mL 0-5 [facility] Work Phone: Comment on above: Negative 0 - 5 Weak Positive 6 - 9 Positive >9Performed at: [facility] [address] [id number] Director: Levi Covarrubias PhD, Phone: [phone] at: [facility] [address] [id number] Director: Joyce Tatum MD, Phone: [phone] Total Iron Binding Capacity 386 ug/dL 250-450 [facility] Work Phone: Vitamin D 25-Hydroxy 25.3 ng/mL [facility] Work Phone: Comment on above: Vitamin D 25(OH) Sta tus Range Deficiency <20 ng/mL (50nmol/L) Insufficiency 20 - 30 ng/mL (50 - 75 nmol/L) Sufficiency 30 - 100 ng/mL (75 - 250 nmol/L) Toxicity >100 ng/mL (>250 nmol/L) Platelets bldon 09-13-2021 Platelets (Bld) [#/Vol] 317 10*3/uL 150-450 [facility] Work Phone: Serum DNA double strand anti body assay (units/volume)on 09-13-2021 DNA double strand Ab Qn (S) 1 [IU]/mL 0-9 [facility] Work Phone: Comment on above: Negative <5 Equivoca l 5 - 9 Positive >9 Serum Humphries extractable nucl ear antibody detectionon 09-13-2021 Humphries extractable nuclear Ab Ql (S) <0.2 AI 0.0-0.9 [facility] Work Phone: Serum cyclic citrullinated p eptide IgG antibody assay (units/volume)on 09-13-2021 Cyclic citrullinated peptide IgG Qn 7 units 0-19 [facility] Work Phone: Comment on above: Negative <20 Weak po sitive 20 - 39 Moderate positive 40 - 59 Strong positive >59 Serum nuclear antibody titer by immunofluorescenceon 09-13-2021 Nuclear Ab IF (S) [Titer] Negative . [facility] Work Phone: Comment on above: Negative <1:80 Borde rline 1:80 Positive >1:80ICAP nomenclature: AC-0For more information about Hep-2 cell patterns useANApatterns.org, the official website for theInternational Consensus on Antinuclear Antibody (SHAWANDA)Patterns (ICAP).Performed at: [facility] [place] [id number] Director: Levi Covarrubias PhD, Phone: [phone] Serum or plasma albumin sancho urement (mass/volume)on 09-13-2021 Albumin [Mass/Vol] 3.6 g/dL 3.2-5.0 [facility] Work Phone: Serum or plasma albumin/glob ulin mass ratioon 09-13-2021 Albumin/Globulin [Mass ratio] 0.9 {ratio} 0.9-2.4 [facility] Work Phone: Serum or plasma calcium sancho urement (mass/volume)on 09-13-2021 Calcium [Mass/Vol] 9.5 mg/dL 8.5-10.1 [facility] Work Phone: Serum or plasma creatinine m easurement (mass/volume)on 09-13-2021 Creatinine [Mass/Vol] 0.69 mg/dL 0.55-1.02 [facility] Work Phone: Comment on above: The validity of the calculated GFR & GFRAA in patients over 70 years has not been determined. Clinical correlation is essential. Serum or plasma ferritin vinayak surement (mass/volume)on 09-13-2021 Ferritin [Mass/Vol] 38 ng/mL 8-252 [facility] Work Phone: Serum or plasma iron saturat ion measurement (mass fraction)on 09-13-2021 Iron saturation [Mass fraction] 16.8 % 15.0-55.0 [facility] Work Phone: Serum or plasma urea nitroge n measurement (mass/volume)on 09-13-2021 Urea nitrogen [Mass/Vol] 10 mg/dL 7-18 [facility] Work Phone: Serum rheumatoid factor dete ctionon 09-13-2021 Rheumatoid factor Ql (S) < 10.0 IU/mL <15 [facility] Work Phone: Serum tissue transglutaminas e IgA antibody assay (units/volume)on 09-13-2021 tTG IgA Qn (S) <2 U/mL 0-3 [facility] Work Phone: Comment on above: Negative 0 - 3 Weak Positive 4 - 10 Positive >10 Tissue Transglutaminase (tTG) has been identified as the endomysial antigen. Studies have demonstr- ated that endomysial IgA antibodies have over 99% specificity for gluten sensitive enteropathy. Thin prep Papanicolaou smear with manual screeningon 09-13-2021 Thin prep Papanicolaou smear with manual screening 16 U/L 15-37 [facility] Work Phone: Thin prep Papanicolaou smear with manual screening 5 5-15 [facility] Work Phone: Laboratory - Hematology and Cell countson 08-19-2021 HbA1c (Bld) [Mass fraction] 5.7 % [facility] Work Phone: Absolute lymphocyte counton 07-26-2021 Lymphocytes Auto (Unsp spec) [#/Vol] 2.10 10*3/uL 0.83-4.51 [facility] Work Phone: Basophil percentageon 2021 Basophils/100 WBC (Bld) 0.5 % 0-1 [facility] Work Phone: [phone] Bilirubin [Mass/Vol] 0.40 mg/dL 0.20-1.00 [facility] Work Phone: [phone] Comment on above: For patients on eltr ombopag therapy, use of Dimension [place] TBIL is not recommended. Chloride [Moles/Vol] 104 mmol/L 98-107 [facility] Work Phone: Eosinophils/100 WBC (Bld) 2.9 % 0-5 [facility] Work Phone: [phone] Glucose [Mass/Vol] 100 mg/dL 74-106 [facility] Work Phone: [phone] Comment on above: Fasting Glucose resu lt from 100 to 125 mg/dL suggests IMPAIRED HOMEOSTASIS per A.D.A. criteria.Please note revised GLUCOSE reference range effective 2017. Neutrophils (Bld) [#/Vol] 4.6 10*3/uL 2.0-7.7 [facility] Work Phone: Neutrophils/100 WBC (Bld) 61.0 % 47-70 [facility] Work Phone: Potassium [Moles/Vol] 3.7 mmol/L 3.5-5.1 [facility] Work Phone: [phone] Protein [Mass/Vol] 7.8 g/dL 6.4-8.2 [facility] Work Phone: Sodium [Moles/Vol] 138 mmol/L 136-145 [facility] Work Phone: WBC (Bld) [#/Vol] 7.5 10*3/uL 4.4-11.0 [facility] Work Phone: Blood erythrocytes count (nu mber/volume)on 07-26-2021 RBC (Bld) [#/Vol] 3.88 10*6/uL 4.2-5.4 [facility] Work Phone: [phone] Blood hemoglobin measurement (mass/volume)on 07-26-2021 Hemoglobin (Bld) [Mass/Vol] 11.7 g/dL 12.0-15.0 [facility] Work Phone: Blood lymphocytes/100 leukoc yteson 07-26-2021 Lymphocytes/100 WBC (Bld) 28.1 % 19-41 [facility] Work Phone: Blood monocytes/100 leukocyt eson 07-26-2021 Monocytes/100 WBC (Bld) 7.0 % 0-10 [facility] Work Phone: Blood platelet mean volumeon 07-26-2021 Platelet mean volume (Bld) [Entitic vol] 9.3 fL 6.2-12.0 [facility] Work Phone: [phone] Determination of erythrocyte mean corpuscular volume (MCV)on 07-26-2021 MCV (RBC) [Entitic vol] 94.8 fL 81-99 [facility] Work Phone: Hematocrit Auto (Bld) [Volum e fraction]on 07-26-2021 Hematocrit (Bld) [Volume fraction] 36.8 % 37-47 [facility] Work Phone: [phone] Laboratory - Chemistry and C hemistry - challengeon 07-26-2021 ALP [Catalytic activity/Vol] 71 U/L 45-117 [facility] Work Phone: ALT [Catalytic activity/Vol] 21 U/L 13-56 [facility] Work Phone: CO2 [Moles/Vol] 26.0 mmol/L 21.0-32.0 [facility] Work Phone: Globulin (S) [Mass/Vol] 4.2 g/dL 2.2-4.2 [facility] Work Phone: Urea nitrogen/Creatinine [Mass ratio] 12.2 mg/mg 10-20 [facility] Work Phone: [phone] Laboratory - Hematology and Cell countson 07-26-2021 Erythrocyte distribution width (RBC) [Entitic vol] 47.2 fL 35.1-43.9 [facility] Work Phone: Erythrocyte distribution width (RBC) [Ratio] 13.7 % 11.6-14.6 [facility] Work Phone: Immature granulocytes/100 WBC (Bld) 0.500 % 0.0-0.9 [facility] Work Phone: Comment on above: IG% - Immature Granu locytes (promyelocytes, myelocytes and metamyelocytes) > 1% indicates that a LEFT SHIFT is Present. MCH (RBC) [Entitic mass] 30.2 pg 27.0-32.0 [facility] Work Phone: Nucleated RBC/100 WBC (Bld) [Ratio] 0 % 0-5 [facility] Work Phone: MCHC Auto (RBC) [Mass/Vol]on 07-26-2021 MCHC (RBC) [Mass/Vol] 31.8 g/dL 32-36 [facility] Work Phone: No Panel Informationon 07-26 Estimated GFR (MDRD) Amer 113 mL/min >60 [facility] Work Phone: Comment on above: GFR Calc Estimated GFR (MDRD) Non-Af Amer 93 mL/min >60 [facility] Work Phone: Comment on above: Non- GFR Calc Platelets bldon 07-26-2021 Platelets (Bld) [#/Vol] 310 10*3/uL 150-450 [facility] Work Phone: Serum or plasma albumin sancho urement (mass/volume)on 07-26-2021 Albumin [Mass/Vol] 3.6 g/dL 3.2-5.0 [facility] Work Phone: [phone] Serum or plasma albumin/glob ulin mass ratioon 07-26-2021 Albumin/Globulin [Mass ratio] 0.9 {ratio} 0.9-2.4 [facility] Work Phone: Serum or plasma calcium sancho urement (mass/volume)on 07-26-2021 Calcium [Mass/Vol] 9.8 mg/dL 8.5-10.1 [facility] Work Phone: Serum or plasma creatinine m easurement (mass/volume)on 07-26-2021 Creatinine [Mass/Vol] 0.74 mg/dL 0.55-1.02 [facility] Work Phone: Comment on above: The validity of the calculated GFR & GFRAA in patients over 70 years has not been determined. Clinical correlation is essential. Serum or plasma urea nitroge n measurement (mass/volume)on 07-26-2021 Urea nitrogen [Mass/Vol] 9 mg/dL 7-18 [facility] Work Phone: Thin prep Papanicolaou smear with manual screeningon 07-26-2021 Thin prep Papanicolaou smear with manual screening 14 U/L 15-37 [facility] Work Phone: Thin prep Papanicolaou smear with manual screening 8 5-15 [facility] Work Phone: Hepatitis C RNA by PCRon Hepatitis C RNA by PCR SEE BELOW Normal [facility] Comment on above: Result Comment: Hepa titis C RNA SEE BELOW IU/mLHCV RNA not detected by PCR.Reference Range: Negative for HCV RNAThe Linear Range of this assay is 15 IU/mL to 100,000,000 IU/mL.Performing Laboratory:[facility] [place] [address] Performed By: #### S URG ####[place] [address] Syphilis IgG with Confon Syphilis IgG with Conf SEE BELOW Normal [facility] Comment on above: Result Comment: [...] Not IndicatedSyphilis Interpretati SEE BELOWTest Not IndicatedPerforming Laboratory:[facility] [address] [place] [address] Performed By: #### S URG ####[address] [address] HIV Screenon 07-05-2017 HIV Screen Negative Normal Nonreactive [facility] Comment on above: Performed By: #### S URG ####[address] [address] Hep. B Surface Agon 07-05-20 Hep.B Surface Ag Negative Normal Negative [facility] Comment on above: Performed By: #### S URG ####[address] [address] Hepatitis C Antibodyon 07-05 Hepatitis C Ab Negative Normal Negative [facility] Comment on above: Performed By: #### S URG ####[address] [address] Ferritinon 07-04-2017 Ferritin 8.30 ng/mL Normal 8.00-252.00 [facility] Comment on above: Performed By: #### S URG ####[address] [address] Iron Binding Cap.on 07-04-20 Iron Binding Cap. 356 ug/dL Normal 250-450 [facility] Comment on above: Performed By: #### S URG ####[address] [address] Iron Serumon 07-04-2017 Iron Serum 44 ug/dL Low 50-170 [facility] Comment on above: Performed By: #### S URG ####[address] [address] Basic Panelon 04-27-2017 Creatinine 0.98 mg/dL High 0.51-0.95 [facility] Comment on above: Performed By: #### S URG ####[address] [address] Anion gap 11 mmol/L Normal 8-16 [facility] Comment on above: Performed By: #### S URG ####[address] [address] CO2 26 mmol/L Normal 21-32 [facility] Comment on above: Performed By: #### S URG ####[address] [address] Glucose mass conc 99 mg/dL Normal 70-99 [facility] Comment on above: Performed By: #### S URG ####[address] [address] Urea nitrogen 12 mg/dL Normal 7-18 [facility] Comment on above: Performed By: #### S URG ####[address] [address] Calcium 9.1 mg/dL Normal 8.5-10.1 [facility] Comment on above: Performed By: #### S URG ####[place] [address] Chloride 103 mmol/L Normal 98-107 [facility] Comment on above: Performed By: #### S URG ####[address] [address] Potassium molar conc 4.0 mmol/L Normal 3.5-5.[address] [facility] Comment on above: Performed By: #### S URG ####[place] [address] Sodium 136 mmol/L Normal 136-145 [facility] Comment on above: Performed By: #### S URG ####[address] [address] Ferritinon 04-27-2017 Ferritin 9.90 ng/mL Normal 8.00-252.00 [facility] Comment on above: Performed By: #### S URG ####[address] [address] Hemogram/Diffon 04-27-2017 Basophils Auto #/vol (Bld) 0.06 thou/cmm Normal 0.01-0.08 [facility] Comment on above: Performed By: #### C BCD1 ####[address] [address] Basophils/100 WBC Auto (Bld) 1.0 % Normal [facility] Comment on above: Performed By: #### C BCD1 ####[address] [address] Eosinophils 0.22 thou/cmm Normal 0.00-0.31 [facility] Comment on above: Performed By: #### C BCD1 ####[address] [address] Eosinophils/100 leukocytes 3.7 % Normal [facility] Comment on above: Performed By: #### C BCD1 ####[place] [address] Erythrocyte distribution width Auto Ratio (RBC) 14.3 % Normal 11.7-14.4 [facility] Comment on above: Performed By: #### C BCD1 ####[place] [address] Erythrocytes (RBC) 3.88 mil/cmm Low 3.93-5.[address] [facility] Comment on above: Performed By: #### C BCD1 ####[place] [address] Hematocrit (HCT) 35.6 % Normal 34.1-44.9 [facility] Comment on above: Performed By: #### C BCD1 ####[place] [address] Hemoglobin mass conc (Bld) 11.7 g/dL Normal 11.2-15.7 [facility] Comment on above: Performed By: #### C BCD1 ####[place] [address] Immature Grans 0.20 % Normal [facility] Comment on above: Performed By: #### C BCD1 ####[place] [address] Immature Grans # 0.01 thou/cmm Normal 0.00-0.05 [facility] Comment on above: Performed By: #### C BCD1 ####[facility] [place], [place] [address] Lymphocytes 1.94 thou/cmm Normal 1.18-3.74 [facility] Comment on above: Performed By: #### C BCD1 ####[address] [address] Lymphocytes/100 leukocytes 32.3 % Normal [facility] Comment on above: Performed By: #### C BCD1 ####[address] [address] MCH 30.2 pg Normal 25.6-32.2 [facility] Comment on above: Performed By: #### C BCD1 ####[address] [address] MCHC mass conc (RBC) 32.9 % Normal 31.6-34.[address] [facility] Comment on above: Performed By: #### C BCD1 ####[address] [address] MCV 91.8 fL Normal 79.4-94.8 [facility] Comment on above: Performed By: #### C BCD1 ####[address] [address] Monocytes 0.38 thou/cmm Normal 0.27-0.70 [facility] Comment on above: Performed By: #### C BCD1 ####[address] [address] Monocytes/100 leukocytes 6.3 % Normal [facility] Comment on above: Performed By: #### C BCD1 ####[address] [address] Platelet mean volume (PMV) 10.1 fL Normal 9.4-12.3 [facility] Comment on above: Performed By: #### C BCD1 ####[address] [address] Platelets 313 thou/cmm Normal 182-369 [facility] Comment on above: Performed By: #### C BCD1 ####[facility] [place], [place] [address] RDW SD 48.3 fl High 36.4-46.3 [facility] Comment on above: Performed By: #### C BCD1 ####[address] [address] Seg Neutrophil 56.5 % Normal [facility] Comment on above: Performed By: #### C BCD1 ####[address] [address] Seg. Neut.# 3.40 thou/cmm Normal 1.56-6.13 [facility] Comment on above: Performed By: #### C BCD1 ####[address] [address] WBC (Leukocytes) 6.01 thou/cmm Normal 3.98-10.04 [facility] Comment on above: Performed By: #### C BCD1 ####[address] [address] Iron Binding Cap.on 04-27-20 17 Iron Binding Cap. 388 ug/dL Normal 250-450 [facility] Comment on above: Performed By: #### I BC ####[address] [address] Iron Serumon 04-27-2017 Iron Serum 33 ug/dL Low 50-170 [facility] Comment on above: Performed By: #### I JIMMY ####[address] [address] HPV High Riskon 04-19-2017 HPV High Risk SEE BELOW Normal [facility] Comment on above: Result Comment: HPV MRNA E6/E7 Not Detected NOT DETECTEDThis test was performed using the APTIMA(R) HPV Assay([employer]This assay detects E6/E7 viral messenger RNA (mRNA)from 14 high-risk HPV types (16,18,31,33,35,39,45,51,52,56,58,59,66,68).For additional information please refer to:http://education.[employer].Medudem/faq/WGV123q8(This link is being provided for informational/educational purposes only.)Test Performed by [email or web address] [facility],[address] [place] [id number] Brunson M.D., Ph.D., Director of [phone], IMER [id number] Performed By: #### H PVRQ ####[address] [address] HPV High Riskon 04-17-[address] [facility] Comment on above: Performed By: #### H PVRQ ####[place] [address] [place] Venipunctureon 03-18 [place] Venipuncture COMPLETED Normal [facility] Comment on above: Performed By: #### M VENP ####[address] [address] TSH, 3rd generationon 2016 TSH, 3rd generation 2.080 uIU/mL Normal 0.358-3.740 [facility] Comment on above: Performed By: #### T SH3 ####[place] [address] Pap,Cyto Gynon 04-13-2017 Pap,Cyto Manager Statistical Test performed at [place] [address]NAME: ALMA ADEN [id number] REQUESTING: SLAVA BEYER D.O.SPECIMEN: TP CERVICAL/ENDOCERVICAL HPV REGARDLESSRelevant History:LMP: 03/28/2017SPECIMEN ADEQUACYSATISFACTORY FOR EVALUATION. ENDOCERVICAL/TRANSFORMATION ZONECOMPONENTS PRESENT.INTERPRETATION/RESU LTNEGATIVE FOR INTRAEPITHELIAL LESION OR MALIGNANCY.ANCILLARY TESTINGHPV mRNA E6/E7 - Not Detected for HIGH RISK HPV. Please see additionalreport from [employer].Electronically signed: 04/19/2017Screened by: LEAH ALARCON(ASCP)Signed Out by: [...] 19, 2017 Page 1 of 1 Normal [facility] Comment on above: Performed By: #### C YTOP ####[place] [address] OPERATIVE REPORTon 7 [facility]ATIVE REPORT [facility] Operative ReportSURGEON: GT Alston RENEA MMRN: [id number] ACCTNUM: [id number] OF SURGERY: 02/06/2017DATE OF : 1980 SEX/AGE: F/36PATIENT TYPE: [facility] SVC: LOCATION:ADMIT DATE: 02/06/2017DATE OF SURGERY: 02/06/2017SURGEON: [...] recovery in stable condition. [address] [place] [address] Operative ReportPATIENT NAME: ALMA ADEN [facility]#: [id number] ACCTNUM: [id number] her findings with significant gastritis with a small gastric ulcer, I would increase her proton pump inhibitortherapy twice daily and also add Carafate therapy. I would like to re-scope her in 6 to 8 weeks time to reassessfor active peptic ulcer disease as this is a contraindication to bariatric surgery. Signed: Nando ALSTON MD 02/15/2017 10:05 EDTCD:modlD: 02/06/2017 12:37:52T: 02/06/2017 23:44:54Job #: [id number] Page 2 of 1 Normal [facility] OPERATIVE REPORT PDF Normal [facility] Surgical Tissue Examon 02-06 Surgical Tissue Exam Test performed at A [address] [address]OHGV: ALMA ADEN [id number] REQUESTING: TONY ALVAREZ MDFINAL DIAGNOSIS:A) GASTRIC ANTRUM, BIOPSIES - MILD CHRONIC GASTRITIS. NEGATIVE FORHELICOBACTER ORGANISMS. H. PYLORI IMMUNOSTAIN REVIEWED.B) GASTRIC ULCER, BIOPSIES - MILD CHRONIC GASTRITIS. ULCER IS NOTIDENTIFIED. NEGATIVE H. PYLORI IMMUNOSTAIN.This case was evaluated using a laboratory developed test (H. pylori).OPERATIVE PROCEDURE:EGDCLINICAL INFORMATION:GRD, obesity; gastritis, gastric ulcerGROSS DESCRIPTION:A) Antral biopsyThe specimen is labeled and designated Keiko, Alma, antral biopsy.Received in formalin, a single 0.6 cm jama fragment, submitted in totalin cassette A, levels x 3. H. pylori.B) Gastric ulcer biopsyThe specimen is labeled and designated Keiko, Alma, gastric ulcerbiopsy. Received in formalin, a single jama fragment, submitted intotal in cassette B. ELH:radha ADRIAN M.D., PATHOLOGIST(Electronic signature on file)Signed out: 02/07/2017 15:58PRINTED: 02/07/2017 Page 1 of 1 Normal [facility] Comment on above: Performed By: #### S URG ####[address] [address] Urine HCG, Qual.on 7 HCG.beta subunit ( test) Ql (U) Negative Normal Negative [facility] Comment on above: Performed By: #### H CGUR ####[address] [address] Specific [place], Ur 1.016 Normal 1.005-1.030 [facility] Comment on above: Performed By: #### H CGUR ####[address] [address] Clostridium difficile detect ion by polymerase chain reaction C. difficile DNA TERESA+probe Ql (Unsp spec) [facility] Work Phone: EP Panel Gastrointestinal pathogens panel TERESA+probe (Stl) [facility] Work Phone: No Panel Information Enteric Bacteriology [facility] Work Phone: Vital Signs Date Time Vital Sign Value Performing Clinician Clement smith 01-21-2025 12:40-0400 Body height 172.[address] Wyatt Marcelo MD Work Phone: [facility] 01-21-2025 12:40-0400 Body temperature 95.6 [degF] Dr. Wyatt Marcelo MD Work Phone: [facility] 01-21-2025 12:40-0400 Diastolic blood pressure 80 mm[Hg] Dr. Wyatt Marcelo MD Work Phone: [facility] 01-21-2025 12:40-0400 Heart rate 86 /min Dr. Wyatt Marcelo MD Work Phone: [facility] 01-21-2025 12:40-0400 Respiratory rate 16 /min Dr. Wyatt Marcelo MD Work Phone: [facility] 01-21-2025 12:40-0400 SaO2% (BldA) [Mass fraction] 97 % Dr. Wyatt Marcelo MD Work Phone: [facility] 01-21-2025 12:40-0400 Systolic blood pressure 132 mm[Hg] Dr. Wyatt Marcelo MD Work Phone: [facility] 01-16-2025 07:29-0400 Body temperature 97 [degF] Dr. Wyatt Marcelo MD Work Phone: [facility] 01-16-2025 07:29-0400 Diastolic blood pressure 79 mm[Hg] Dr. Wyatt Marcelo MD Work Phone: [facility] 01-16-2025 07:29-0400 Heart rate 73 /min Dr. Wyatt Marcelo MD Work Phone: [facility] 01-16-2025 07:29-0400 Respiratory rate 16 /min Dr. Wyatt Marcelo MD Work Phone: [facility] 01-16-2025 07:29-0400 SaO2% (BldA) [Mass fraction] 99 % Dr. Wyatt Marcelo MD Work Phone: [facility] 01-16-2025 07:29-0400 Systolic blood pressure 128 mm[Hg] Dr. Wyatt Marcelo MD Work Phone: [facility] 01-16-2025 05:54-0400 Body height 172.[address] Wyatt Marcelo MD Work Phone: [facility] 01-16-2025 05:54-0400 Body mass index (BMI) [Ratio] 59.5 kg/m2 Dr. Wyatt Marcelo MD Work Phone: [facility] 01-16-2025 05:54-0400 Body weight 177.[address] Wyatt Marcelo MD Work Phone: [facility] 01-07-2025 11:26-0400 Body height 172.[address] Wyatt Marcelo MD Work Phone: [facility] 01-07-2025 11:26-0400 Body mass index (BMI) [Ratio] 58.8 kg/m2 Dr. Wyatt Marcelo MD Work Phone: [facility] 01-07-2025 11:26-0400 Body weight 175.[address] Wyatt Marcelo MD Work Phone: [facility] 01-07-2025 11:26-0400 Diastolic blood pressure 86 mm[Hg] Dr. Wyatt Marcelo MD Work Phone: [facility] [facility] 01-07-2025 11:26-0400 Heart rate 80 /min Dr. Wyatt Marcelo MD Work Phone: [facility] 01-07-2025 11:26-0400 SaO2% (BldA) [Mass fraction] 97 % Dr. Wyatt Marcelo MD Work Phone: [facility] 01-07-2025 11:26-0400 Systolic blood pressure 139 mm[Hg] Dr. Wyatt Marcelo MD Work Phone: [facility] 10-23-2024 16:47-0400 Body height 172.[address] Wyatt Marcelo MD Work Phone: [facility] 10-23-2024 16:47-0400 Body temperature 96.1 [degF] Dr. Wyatt Marcelo MD Work Phone: [facility] 10-23-2024 16:47-0400 Diastolic blood pressure 78 mm[Hg] Dr. Wyatt Marcelo MD Work Phone: [facility] 10-23-2024 16:47-0400 Heart rate 81 /min Dr. Wyatt Marcelo MD Work Phone: [facility] 10-23-2024 16:47-0400 Respiratory rate 16 /min Dr. Wyatt Marcelo MD Work Phone: [facility] 10-23-2024 16:47-0400 SaO2% (BldA) [Mass fraction] 95 % Dr. Wyatt Marcelo MD Work Phone: [facility] 10-23-2024 16:47-0400 Systolic blood pressure 136 mm[Hg] Dr. Wyatt Marcelo MD Work Phone: [facility] 08-31-2024 12:26-0500 Body temperature 98.3 [degF] Dr. Wyatt Marcelo MD Work Phone: [facility] 08-31-2024 12:26-0500 Diastolic blood pressure 70 mm[Hg] Dr. Wyatt Marcelo MD Work Phone: [facility] 08-31-2024 12:26-0500 Heart rate 88 /min Dr. Wyatt Marcelo MD Work Phone: [facility] 08-31-2024 12:26-0500 Respiratory rate 12 /min Dr. Wyatt Marcelo MD Work Phone: [facility] 08-31-2024 12:26-0500 SaO2% (BldA) [Mass fraction] 98 % Dr. Wyatt Marcelo MD Work Phone: [facility] 08-31-2024 12:26-0500 Systolic blood pressure 118 mm[Hg] Dr. Wyatt Marcelo MD Work Phone: [facility] 08-31-2024 11:33-0500 Body height 172.[address] Wyatt Marcelo MD Work Phone: [facility] 10-12-2023 15:39-0400 Body height 172.[address] Wyatt Marcelo Work Phone: [facility] 10-12-2023 15:39-0400 Body mass index (BMI) [Ratio] 57.3 kg/m2 Dr. Wyatt Marcelo Work Phone: [facility] 10-12-2023 15:39-0400 Body temperature 97.8 [degF] Dr. Wyatt Marcelo Work Phone: [facility] 10-12-2023 15:39-0400 Body weight [address] Wyatt Marcelo Work Phone: [facility] 10-12-2023 15:39-0400 Respiratory rate 17 /min Dr. Wyatt Marcelo Work Phone: [facility] 10-12-2023 15:39-0400 SaO2% (BldA) [Mass fraction] 97 % Dr. Wyatt Marcelo Work Phone: [facility] 10-03-2023 08:32-0400 Body height 172.[address] Wyatt Marcelo Work Phone: [facility] 10-03-2023 08:32-0400 Body mass index (BMI) [Ratio] 57.4 kg/m2 Dr. Wyatt Marcelo Work Phone: [facility] 10-03-2023 08:32-0400 Body temperature 97.3 [degF] Dr. Wyatt Marcelo Work Phone: [facility] 10-03-2023 08:32-0400 Body weight 171.[address] Wyatt Marcelo Work Phone: [facility] 10-03-2023 08:32-0400 Diastolic blood pressure 90 mm[Hg] Dr. Wyatt Marcelo Work Phone: [facility] 10-03-2023 08:32-0400 Heart rate 74 /min Dr. Wyatt Marcelo Work Phone: [facility] 10-03-2023 08:32-0400 Respiratory rate 16 /min Dr. Wyatt Marcelo Work Phone: [facility] 10-03-2023 08:32-0400 SaO2% (BldA) [Mass fraction] 99 % Dr. Wyatt Marcelo Work Phone: [facility] 10-03-2023 08:32-0400 Systolic blood pressure 128 mm[Hg] Dr. Wyatt Marcelo Work Phone: [facility] 06-11-2023 10:46-0500 Diastolic blood pressure 79 mm[Hg] Dr. Wyatt Marcelo Work Phone: [facility] 06-11-2023 10:46-0500 Heart rate 80 /min Dr. Wyatt Marcelo Work Phone: [facility] 06-11-2023 10:46-0500 Respiratory rate 18 /min Dr. Wyatt Marcelo Work Phone: [facility] 06-11-2023 10:46-0500 SaO2% (BldA) [Mass fraction] 99 % Dr. Wyatt Marcelo Work Phone: [facility] 06-11-2023 10:46-0500 Systolic blood pressure 139 mm[Hg] Dr. Wyatt Marcelo Work Phone: [facility] 06-11-2023 07:45-0500 Body height 172.[address] Wyatt Marcelo Work Phone: [facility] 06-11-2023 07:45-0500 Body mass index (BMI) [Ratio] 56.2 kg/m2 Dr. Wyatt Marcelo Work Phone: [facility] 06-11-2023 07:45-0500 Body temperature 96.8 [degF] Dr. Wyatt Marcelo Work Phone: [facility] 06-11-2023 07:45-0500 Body weight 167.[address] Wyatt Marcelo Work Phone: [facility] 05-10-2023 16:30-0400 Body temperature 98.4 [degF] Dr. Wyatt Marcelo Work Phone: [facility] 05-10-2023 16:30-0400 Diastolic blood pressure 82 mm[Hg] Dr. Wyatt Marcelo Work Phone: [facility] 05-10-2023 16:30-0400 Heart rate 76 /min Dr. Wyatt Marcelo Work Phone: [facility] 05-10-2023 16:30-0400 Respiratory rate 18 /min Dr. Wyatt Marcelo Work Phone: [facility] 05-10-2023 16:30-0400 SaO2% (BldA) [Mass fraction] 97 % Dr. Wyatt Marcelo Work Phone: [facility] 05-10-2023 16:30-0400 Systolic blood pressure 126 mm[Hg] Dr. Wyatt Marcelo Work Phone: [facility] 04-26-2023 10:20-0400 Body temperature 97.4 [degF] Dr. Wyatt Marcelo Work Phone: [facility] 04-26-2023 10:20-0400 Diastolic blood pressure 80 mm[Hg] Dr. Wyatt Marcelo Work Phone: [facility] 04-26-2023 10:20-0400 Heart rate 75 /min Dr. Wyatt Marcelo Work Phone: [facility] 04-26-2023 10:20-0400 Respiratory rate 18 /min Dr. Wyatt Marcelo Work Phone: [facility] 04-26-2023 10:20-0400 SaO2% (BldA) [Mass fraction] 97 % Dr. Wyatt Marcelo Work Phone: [facility] 04-26-2023 10:20-0400 Systolic blood pressure 116 mm[Hg] Dr. Wyatt Marcelo Work Phone: [facility] 03-10-2023 16:05-0400 Body height 172.[address] Wyatt Marcelo Work Phone: [facility] 03-10-2023 16:05-0400 Body temperature 97.7 [degF] Dr. Wyatt Marcelo Work Phone: [facility] 03-10-2023 16:05-0400 Diastolic blood pressure 100 mm[Hg] Dr. Wyatt Marcelo Work Phone: [facility] 03-10-2023 16:05-0400 Heart rate 72 /min Dr. Wyatt Marcelo Work Phone: [facility] 03-10-2023 16:05-0400 Respiratory rate 16 /min Dr. Wyatt Marcelo Work Phone: [facility] 03-10-2023 16:05-0400 SaO2% (BldA) [Mass fraction] 96 % Dr. Wyatt Marcelo Work Phone: [facility] 03-10-2023 16:05-0400 Systolic blood pressure 158 mm[Hg] Dr. Wyatt Marcelo Work Phone: [facility] 01-09-2023 07:39-0400 Diastolic blood pressure 99 mm[Hg] Dr. Wyatt Marcelo Work Phone: [facility] 01-09-2023 07:39-0400 Heart rate 72 /min Dr. Wyatt Marcelo Work Phone: [facility] 01-09-2023 07:39-0400 Systolic blood pressure 146 mm[Hg] Dr. Wyatt Marcelo Work Phone: [facility] 01-09-2023 05:44-0400 Body height 172.[address] Wyatt Marcelo Work Phone: [facility] 01-09-2023 05:44-0400 Body mass index (BMI) [Ratio] 55.2 kg/m2 Dr. Wyatt Marcelo Work Phone: [facility] 01-09-2023 05:44-0400 Body temperature 97.6 [degF] Dr. Wyatt Marcelo Work Phone: [facility] 01-09-2023 05:44-0400 Body weight 164.[address] Wyatt Marcelo Work Phone: [facility] 01-09-2023 05:44-0400 Respiratory rate 18 /min Dr. Wyatt Marcelo Work Phone: [facility] 01-09-2023 05:44-0400 SaO2% (BldA) [Mass fraction] 96 % Dr. Wyatt Marcelo Work Phone: [facility] 12-05-2022 08:19-0400 Body height 172.[address] Wyatt Marcelo Work Phone: [facility] 12-05-2022 08:19-0400 Body mass index (BMI) [Ratio] 54.4 kg/m2 Dr. Wyatt Marcelo Work Phone: [facility] 12-05-2022 08:19-0400 Body temperature 97.2 [degF] Dr. Wyatt Marcelo Work Phone: [facility] 12-05-2022 08:19-0400 Body weight 162.[address] Wyatt Marcelo Work Phone: [facility] 12-05-2022 08:19-0400 Diastolic blood pressure 80 mm[Hg] Dr. Wyatt Marcelo Work Phone: [facility] 12-05-2022 08:19-0400 Heart rate 87 /min Dr. Wyatt Marcelo Work Phone: [facility] 12-05-2022 08:19-0400 Respiratory rate 12 /min Dr. Wyatt Marcelo Work Phone: [facility] 12-05-2022 08:19-0400 SaO2% (BldA) [Mass fraction] 97 % Dr. Wyatt Marcelo Work Phone: [facility] 12-05-2022 08:19-0400 Systolic blood pressure 130 mm[Hg] Dr. Wyatt Marcelo Work Phone: [facility] 11-23-2022 13:44-0400 Body height 172.[address] Wyatt Marcelo Work Phone: [facility] 11-23-2022 13:44-0400 Body mass index (BMI) [Ratio] 54.4 kg/m2 Dr. Wyatt Marcelo Work Phone: [facility] 11-23-2022 13:44-0400 Body temperature 97.2 [degF] Dr. Wyatt Marcelo Work Phone: [facility] 11-23-2022 13:44-0400 Body weight 162.[address] Wyatt Marcelo Work Phone: [facility] 11-23-2022 13:44-0400 Diastolic blood pressure 83 mm[Hg] Dr. Wyatt Marcelo Work Phone: [facility] 11-23-2022 13:44-0400 Heart rate 77 /min Dr. Wyatt Marcelo Work Phone: [facility] 11-23-2022 13:44-0400 Respiratory rate 19 /min Dr. Wyatt Marcelo Work Phone: [facility] 11-23-2022 13:44-0400 SaO2% (BldA) [Mass fraction] 96 % Dr. Wyatt Marcelo Work Phone: [facility] 11-23-2022 13:44-0400 Systolic blood pressure 122 mm[Hg] Dr. Wyatt Marcelo Work Phone: [facility] 10-19-2022 13:59-0400 Body height 172.[address] Wyatt Marcelo Work Phone: [facility] 10-19-2022 13:59-0400 Body mass index (BMI) [Ratio] 54.1 kg/m2 Dr. Wyatt Marcelo Work Phone: [facility] 10-19-2022 13:59-0400 Body weight 161.[address] Wyatt Marcelo Work Phone: [facility] 10-19-2022 13:59-0400 Diastolic blood pressure 85 mm[Hg] Dr. Wyatt Marcelo Work Phone: [facility] 10-19-2022 13:59-0400 Systolic blood pressure 142 mm[Hg] Dr. Wyatt Marcelo Work Phone: [facility] 09-29-2022 08:59-0400 Body height 172.[address] Wyatt Marcelo Work Phone: [facility] 09-29-2022 08:59-0400 Body temperature 96.2 [degF] Dr. Wyatt Marcelo Work Phone: [facility] 09-29-2022 08:59-0400 Diastolic blood pressure 90 mm[Hg] Dr. Wyatt Marcelo Work Phone: [facility] 09-29-2022 08:59-0400 Heart rate 70 /min Dr. Wyatt Marcelo Work Phone: [facility] 09-29-2022 08:59-0400 Respiratory rate 16 /min Dr. Wyatt Marcelo Work Phone: [facility] 09-29-2022 08:59-0400 SaO2% (BldA) [Mass fraction] 98 % Dr. Wyatt Marcelo Work Phone: [facility] 09-29-2022 08:59-0400 Systolic blood pressure 128 mm[Hg] Dr. Wyatt Marcelo Work Phone: [facility] 09-01-2022 08:52-0500 Body temperature 96.6 [degF] Dr. Wyatt Marcelo Work Phone: [facility] 09-01-2022 08:52-0500 Diastolic blood pressure 100 mm[Hg] Dr. Wyatt Marcelo Work Phone: [facility] 09-01-2022 08:52-0500 Heart rate 78 /min Dr. Wyatt Marcelo Work Phone: [facility] 09-01-2022 08:52-0500 Respiratory rate 18 /min Dr. Wyatt Marcelo Work Phone: [facility] 09-01-2022 08:52-0500 SaO2% (BldA) [Mass fraction] 96 % Dr. Wyatt Marcelo Work Phone: [facility] 09-01-2022 08:52-0500 Systolic blood pressure 146 mm[Hg] Dr. Wyatt Marcelo Work Phone: [facility] 08-15-2022 11:25-0500 Body mass index (BMI) [Ratio] 57 kg/m2 Dr. Wyatt Marcelo Work Phone: [facility] 08-15-2022 11:25-0500 Body temperature 96.7 [degF] Dr. Wyatt Marcelo Work Phone: [facility] 08-15-2022 11:25-0500 Body weight 170.[address] Wyatt Marcelo Work Phone: [facility] 08-15-2022 11:25-0500 Diastolic blood pressure 84 mm[Hg] Dr. Wyatt Marcelo Work Phone: [facility] 08-15-2022 11:25-0500 Heart rate 78 /min Dr. Wyatt Marcelo Work Phone: [facility] 08-15-2022 11:25-0500 Respiratory rate 18 /min Dr. Wyatt Marcelo Work Phone: [facility] 08-15-2022 11:25-0500 SaO2% (BldA) [Mass fraction] 96 % Dr. Wyatt Marcelo Work Phone: [facility] 08-15-2022 11:25-0500 Systolic blood pressure 117 mm[Hg] Dr. Wyatt Marcelo Work Phone: [facility] 07-01-2022 14:57-0500 Diastolic blood pressure 82 mm[Hg] Dr. Wyatt Marcelo Work Phone: [facility] 07-01-2022 14:57-0500 Respiratory rate 12 /min Dr. Wyatt Marcelo Work Phone: [facility] 07-01-2022 14:57-0500 Systolic blood pressure 144 mm[Hg] Dr. Wyatt Marcelo Work Phone: [facility] 05-06-2022 11:09-0400 Body height 172.[address] Wyatt Marcelo Work Phone: [facility] 05-06-2022 11:09-0400 Body temperature 98 [degF] Dr. Wyatt Marcelo Work Phone: [facility] 05-06-2022 11:09-0400 Diastolic blood pressure 88 mm[Hg] Dr. Wyatt Marcelo Work Phone: [facility] 05-06-2022 11:09-0400 Heart rate 66 /min Dr. Wyatt Marcelo Work Phone: [facility] 05-06-2022 11:09-0400 SaO2% (BldA) [Mass fraction] 98 % Dr. Wyatt Marcelo Work Phone: [facility] 05-06-2022 11:09-0400 Systolic blood pressure 124 mm[Hg] Dr. Wyatt Marcelo Work Phone: [facility] 03-07-2022 13:25-0400 Heart rate 84 /min Dr. Wyatt Marcelo Work Phone: [facility] Work Phone: 03-07-2022 13:25-0400 Respiratory rate 16 /min Dr. Wyatt Marcelo Work Phone: [facility] Work Phone: 03-07-2022 13:25-0400 SaO2% (BldA) [Mass fraction] 98 % Dr. Wyatt Marcelo Work Phone: [facility] Work Phone: 03-07-2022 12:10-0400 Body height 172.[address] Wyatt Marcelo Work Phone: [facility] Work Phone: 03-07-2022 12:10-0400 Body mass index (BMI) [Ratio] 55.3 kg/m2 Dr. Wyatt Marcelo Work Phone: [facility] Work Phone: 03-07-2022 12:10-0400 Body temperature 97.9 [degF] Dr. Wyatt Marcelo Work Phone: [facility] Work Phone: 03-07-2022 12:10-0400 Body weight [address] Wyatt Marcelo Work Phone: [facility] Work Phone: 03-07-2022 12:10-0400 Diastolic blood pressure 72 mm[Hg] Dr. Wyatt Marcelo Work Phone: [facility] Work Phone: 03-07-2022 12:10-0400 Systolic blood pressure 139 mm[Hg] Dr. Wyatt Marcelo Work Phone: [facility] Work Phone: 02-10-2022 07:19-0400 Body temperature 97.5 [degF] Dr. Wyatt Marcelo Work Phone: [facility] Work Phone: 02-10-2022 07:19-0400 Diastolic blood pressure 90 mm[Hg] Dr. Wyatt Marcelo Work Phone: [facility] Work Phone: 02-10-2022 07:19-0400 Heart rate 89 /min Dr. Wyatt Marcelo Work Phone: [facility] Work Phone: 02-10-2022 07:19-0400 Respiratory rate 14 /min Dr. Wyatt Marcelo Work Phone: [facility] Work Phone: 02-10-2022 07:19-0400 SaO2% (BldA) [Mass fraction] 98 % Dr. Wyatt Marcelo Work Phone: [facility] Work Phone: 02-10-2022 07:19-0400 Systolic blood pressure 146 mm[Hg] Dr. Wyatt Marcelo Work Phone: [facility] Work Phone: 11-22-2021 08:58-0400 Body height 172.[address] Wyatt Marcelo Work Phone: [facility] Work Phone: 11-22-2021 08:58-0400 Body mass index (BMI) [Ratio] 52.6 kg/m2 Dr. Wyatt Marcelo Work Phone: [facility] Work Phone: 11-22-2021 08:58-0400 Body temperature 97.1 [degF] Dr. Wyatt Marcelo Work Phone: [facility] Work Phone: 11-22-2021 08:58-0400 Body weight 156.[address] Wyatt Marcelo Work Phone: [facility] Work Phone: 11-22-2021 08:58-0400 Diastolic blood pressure 86 mm[Hg] Dr. Wyatt Marcelo Work Phone: [facility] Work Phone: 11-22-2021 08:58-0400 Heart rate 73 /min Dr. Wyatt Marcelo Work Phone: [facility] Work Phone: 11-22-2021 08:58-0400 Respiratory rate 14 /min Dr. Wyatt Marcelo Work Phone: [facility] Work Phone: 11-22-2021 08:58-0400 SaO2% (BldA) [Mass fraction] 98 % Dr. Wyatt Marcelo Work Phone: [facility] Work Phone: 11-22-2021 08:58-0400 Systolic blood pressure 134 mm[Hg] Dr. Wyatt Marcelo Work Phone: [facility] Work Phone: 10-08-2021 11:30-0400 Body mass index (BMI) [Ratio] 52.6 kg/m2 Dr. Wyatt Marcelo Work Phone: [facility] Work Phone: 10-08-2021 11:30-0400 Body temperature 97.4 [degF] Dr. Wyatt Marcelo Work Phone: [facility] Work Phone: 10-08-2021 11:30-0400 Body weight 156.[address] Wyatt Marcelo Work Phone: [facility] Work Phone: 10-08-2021 11:30-0400 Diastolic blood pressure 78 mm[Hg] Dr. Wyatt Marcelo Work Phone: [facility] Work Phone: 10-08-2021 11:30-0400 Heart rate 73 /min Dr. Wyatt Marcelo Work Phone: [facility] Work Phone: 10-08-2021 11:30-0400 Respiratory rate 14 /min Dr. Wyatt Marcelo Work Phone: [facility] Work Phone: 10-08-2021 11:30-0400 SaO2% (BldA) [Mass fraction] 97 % Dr. Wyatt Marcelo Work Phone: [facility] Work Phone: 10-08-2021 11:30-0400 Systolic blood pressure 126 mm[Hg] Dr. Wyatt Marcelo Work Phone: [facility] Work Phone: 10-08-2021 11:30-0400 Body height 172.[address] Wyatt Marcelo Work Phone: [facility] Work Phone: 10-08-2021 11:30-0400 Body mass index (BMI) [Ratio] 52.6 kg/m2 Dr. Wyatt Marcelo Work Phone: [facility] Work Phone: 10-08-2021 11:30-0400 Body temperature 97.4 [degF] Dr. Wyatt Marcelo Work Phone: [facility] Work Phone: 10-08-2021 11:30-0400 Body weight 156.[address] Wyatt Marcelo Work Phone: [facility] Work Phone: 10-08-2021 11:30-0400 Diastolic blood pressure 78 mm[Hg] Dr. Wyatt Marcelo Work Phone: [facility] Work Phone: 10-08-2021 11:30-0400 Heart rate 73 /min Dr. Wyatt Marcelo Work Phone: [facility] Work Phone: 10-08-2021 11:30-0400 Respiratory rate 14 /min Dr. Wyatt Marcelo Work Phone: [facility] Work Phone: 10-08-2021 11:30-0400 SaO2% (BldA) [Mass fraction] 97 % Dr. Wyatt Marcelo Work Phone: [facility] Work Phone: 10-08-2021 11:30-0400 Systolic blood pressure 126 mm[Hg] Dr. Wyatt Marcelo Work Phone: [facility] Work Phone: 08-19-2021 10:36-0500 Body mass index (BMI) [Ratio] 52.6 kg/m2 Dr. Wyatt Marcelo Work Phone: [facility] Work Phone: 08-19-2021 10:36-0500 Body temperature 97.2 [degF] Dr. Wyatt Marcelo Work Phone: [facility] Work Phone: 08-19-2021 10:36-0500 Body weight 156.[address] Wyatt Marcelo Work Phone: [facility] Work Phone: 08-19-2021 10:36-0500 Diastolic blood pressure 86 mm[Hg] Dr. Wyatt Marcelo Work Phone: [facility] Work Phone: 08-19-2021 10:36-0500 Heart rate 74 /min Dr. Wyatt Marcelo Work Phone: [facility] Work Phone: 08-19-2021 10:36-0500 Respiratory rate 18 /min Dr. Wyatt Marcelo Work Phone: [facility] Work Phone: 08-19-2021 10:36-0500 SaO2% (BldA) [Mass fraction] 99 % Dr. Wyatt Marcelo Work Phone: [facility] Work Phone: 08-19-2021 10:36-0500 Systolic blood pressure 124 mm[Hg] Dr. Wyatt Marcelo Work Phone: [facility] Work Phone: 07-28-2021 08:25-0500 Body mass index (BMI) [Ratio] 52.6 kg/m2 Dr. Wyatt Marcelo Work Phone: [facility] Work Phone: 07-28-2021 08:25-0500 Body temperature 98.6 [degF] Dr. Wyatt Marcelo Work Phone: [facility] Work Phone: 07-28-2021 08:25-0500 Body weight 156.[address] Wyatt Marcelo Work Phone: [facility] Work Phone: 07-28-2021 08:25-0500 Diastolic blood pressure 72 mm[Hg] Dr. Wyatt Marcelo Work Phone: [facility] Work Phone: 07-28-2021 08:25-0500 Heart rate 79 /min Dr. Wyatt Marcelo Work Phone: [facility] Work Phone: 07-28-2021 08:25-0500 Respiratory rate 14 /min Dr. Wyatt Marcelo Work Phone: [facility] Work Phone: 07-28-2021 08:25-0500 SaO2% (BldA) [Mass fraction] 97 % Dr. Wyatt Marcelo Work Phone: [facility] Work Phone: 07-28-2021 08:25-0500 Systolic blood pressure 124 mm[Hg] Dr. Wyatt Marcelo Work Phone: [facility] Work Phone: 07-01-2021 09:34-0500 Body mass index (BMI) [Ratio] 52.6 kg/m2 Dr. Wyatt Marcelo Work Phone: [facility] Work Phone: 07-01-2021 09:34-0500 Body temperature 98 [degF] Dr. Wyatt Marcelo Work Phone: [facility] Work Phone: 07-01-2021 09:34-0500 Body weight 156.[address] Wyatt Marcelo Work Phone: [facility] Work Phone: 07-01-2021 09:34-0500 Diastolic blood pressure 84 mm[Hg] Dr. Wyatt Marcelo Work Phone: [facility] Work Phone: 07-01-2021 09:34-0500 Heart rate 80 /min Dr. Wyatt Marcelo Work Phone: [facility] Work Phone: 07-01-2021 09:34-0500 Respiratory rate 18 /min Dr. Wyatt Marcelo Work Phone: [facility] Work Phone: 07-01-2021 09:34-0500 SaO2% (BldA) [Mass fraction] 98 % Dr. Wyatt Marcelo Work Phone: [facility] Work Phone: 07-01-2021 09:34-0500 Systolic blood pressure 138 mm[Hg] Dr. Wyatt Marcelo Work Phone: [facility] Work Phone: Encounters Encounter Date Encounter Type Care Provider Facility Start: 01-28-2025 ambulatory STEVEN BOLES Facilit y:[facility] Start: 01-21-2025 End: 01-21-[address] Wyatt Marcelo MD Work Phone: [facility] Start: 01-21-2025 End: 01-21-2025 Patient encounter procedure Kati Hilliard NP-[facility] -[facility] Work Phone: Start: 01-21-2025 End: 01-21-2025 Patient encounter procedure Kati STEPHEN -[facility] Work Phone: Start: 01-21-2025 End: 01-21-[address] Wyatt Marcelo MD Work Phone: -[facility] Start: 01-21-2025 End: 01-21-2025 ambulatory Wyatt Marcelo Facility:[facility] Start: 01-16-2025 ambulatory Hammad Loaiza Facility :[facility] Start: 01-16-2025 Non-patient / Non-visit Hammad Loaiza DO -[facility] Start: 01-16-2025 End: 01-16-2025 Admission to same day surgery center Hammadlalito Loaiza DO -[facility] Work Phone: Start: 01-16-2025 End: 01-16-[address] Wyatt Marcelo MD Work Phone: -[facility] Start: 01-07-2025 End: 01-07-[address] Cali Lou MD -[facility] Work Phone: Start: 01-07-2025 End: 01-07-[address] Wyatt Marcelo MD Work Phone: [facility] Work Phone: Start: 12-13-2024 End: 12-13-2024 Patient encounter procedure Irma MINER -[facility] Work Phone: Start: 12-13-2024 End: 12-13-[address] Wyatt Marcelo MD Work Phone: [facility] Work Phone: Start: 11-07-2024 End: 11-07-[address] Wyatt Marcelo MD Work Phone: [facility] Work Phone: Start: 11-07-2024 End: 11-07-2024 Patient encounter procedure STEVEN BOLES MD -[facility] Start: 11-07-2024 End: 11-07-2024 ambulatory STEVEN BOLES Facility:[facility] Start: 10-23-2024 End: 10-23-[address] Wyatt Marcelo MD -[facility] Work Phone: Start: 10-23-2024 End: 10-23-2024 ambulatory Wyatt Marcelo Facility:[facility] Start: 10-10-2024 End: 10-10-[address] Wyatt aMrcelo MD Work Phone: [facility] Work Phone: Start: 10-10-2024 End: 10-10-[address] Wyatt aMrcelo MD -[facility] Start: 10-10-2024 End: 10-10-2024 ambulatory Natbethalla Marcelo Facility:[facility] Start: 08-31-2024 End: 08-31-2024 Patient encounter procedure Corie Tan NP-[facility] Work Phone: Start: 08-31-2024 End: 08-31-2024 ambulatory Wyatt Marcelo Facility:[facility] Start: 07-23-2024 End: 07-23-2024 Patient encounter procedure STEVEN BOLES MD -[facility] Start: 07-23-2024 End: 07-23-2024 ambulatory STEVEN BOLES Facility:[facility] Start: 07-11-2024 ambulatory Nimco Gonzalez Facility:[facility] Start: 07-11-2024 Registered Zi Gonzalez PA -Physical Therapy Work Phone: Start: 06-25-2024 ambulatory Karl Lopez Facility:[facility] Start: 05-27-2024 End: 05-27-2024 ambulatory Nimco Gonzalez Facility:[facility] Start: 05-10-2024 End: 05-10-2024 ambulatory Nimco Gonzalez Facility:[facility] Start: 05-10-2024 End: 05-10-2024 ambulatory Nimco Gonzalez Facility:[facility] Start: 05-09-2024 End: 05-09-2024 ambulatory Nimco Gonzalez Facility:[facility] Start: 04-30-2024 End: 04-30-2024 ambulatory [facility] Facility:[facility] Start: 04-25-2024 Encounter for genera l adult medical examination without abnormal findings [facility] Start: 04-25-2024 End: 04-25-2024 ambulatory Natbethalla Marcelo Facility:[facility] Start: 04-25-2024 ambulatory Wyatt Marcelo Facili ty:[facility] Start: 04-25-2024 ambulatory Health Risk Assessment Facility:[facility] Start: 04-02-2024 End: 04-02-2024 ambulatory [facility] Facility:[facility] Start: 04-01-2024 End: 04-01-2024 ambulatory Natmeridenalla Marcelo Facility:[facility] Start: 03-20-2024 End: 03-20-2024 ambulatory [facility] Facility:[facility] Start: 02-13-2024 End: 02-13-2024 ambulatory Cali Lou Facility:[facility] Start: 02-06-2024 End: 02-06-2024 ambulatory Liliana Bangura Facility:[facility] Start: 10-17-2023 End: 10-17-[address] Wyatt Marcelo Work Phone: [facility] Work Phone: Start: 10-17-2023 End: 10-17-[address] Wyatt Marcelo Work Phone: [facility] [place] Start: 10-12-2023 End: 10-12-[address] Wyatt Marcelo Work Phone: [facility] Work Phone: Start: 10-12-2023 End: 10-12-[address] Wyatt Marcelo Work Phone: [facility] Work Phone: Start: 10-03-2023 End: 10-03-[address] Wyatt Marcelo Work Phone: [facility] Work Phone: Start: 09-08-2023 End: 09-08-[address] Wyatt Marcelo Work Phone: [facility] Work Phone: Start: 09-08-2023 End: 09-08-[address] [facility] Marcel[facility] Work Phone: Start: 08-17-2023 End: 08-17-[address] [facility] Marcel[facility] Start: 06-16-2023 End: 06-16-[address] Wyatt Marcelo Work Phone: [facility] Work Phone: Start: 06-16-2023 End: 06-16-[address] Wyatt Marcelo Work Phone: [facility] [place] Start: 06-11-2023 End: 06-11-2023 Emergency department patient visit Dr. Wyatt Marcelo Work Phone: [facility] Work Phone: Start: 05-10-[address] Wyatt Marcelo Work Phone: [facility] Start: 05-10-2023 End: 05-10-2023 Encounter for general adult medical examination without abnormal findings Dr. Wyatt Marcelo Work Phone: [facility] Start: 05-10-2023 End: 05-10-[address] Wyatt Marcelo Work Phone: [facility] Work Phone: Start: 05-09-[address] Marta Marcelo Work Phone: [facility] Start: 04-26-2023 End: 04-26-[address] Wyatt Marcelo Work Phone: [facility] Work Phone: Start: 04-26-2023 End: 04-26-[address] Wyatt Marcelo Work Phone: [facility] Work Phone: Start: 03-22-2023 End: 03-22-[address] Wyatt Marcelo Work Phone: [facility] Work Phone: Start: 03-22-2023 End: 03-22-[address] Wyatt Marcelo Work Phone: [facility], [place] Start: 03-10-2023 End: 03-10-[address] Wyatt Marcelo Work Phone: [facility] Work Phone: Start: 03-07-2023 End: 03-07-[address] Wyatt Marcelo Work Phone: [facility] [place] Start: 02-15-2023 End: 02-15-[address] Wyatt Marcelo Work Phone: [facility] Work Phone: Start: 02-15-2023 End: 02-15-[address] Wyatt Marcelo Work Phone: [facility], [facility] Work Phone: Start: 02-14-2023 Non-patient / Non-visit Dr. Wyatt Marcelo Work Phone: [facility] Work Phone: Start: 02-03-2023 End: 02-03-[address] Wyatt Marcelo [facility] [place] Work Phone: Start: 01-09-2023 End: 01-09-[address] Wyatt Marcelo Work Phone: [facility] Work Phone: Start: 01-09-2023 End: 01-09-[address] [facility]att Marcel[facility] Work [facility] Start: 01-09-2023 End: 01-09-[address] Wyatt Marcelo [facility] Start: 01-03-2023 End: 01-03-[address] Wyatt Marcelo Work Phone: [facility] Work Phone: Start: 01-03-2023 End: 01-03-[address] Wyatt Marcelo Work Phone: [facility] [place] Start: 12-30-2022 End: 12-30-[address] Wyatt Marcelo Work Phone: [facility] Medicine Start: 12-14-2022 End: 12-14-[address] Wyatt Marcelo Work Phone: [facility] Work Phone: Start: 12-14-2022 End: 12-14-[address] Wyatt Marcelo Work Phone: [facility] [place] Start: 12-05-2022 End: 12-05-[address] Wyatt Marcelo Work Phone: [facility] Start: 12-02-2022 End: 12-02-[address] Wyatt Marcelo Work Phone: [facility] Work Phone: Start: 12-02-2022 End: 12-02-[address] Wyatt Marcelo Work Phone: [facility] Start: 11-25-2022 End: 11-25-[address] Wyatt Marcelo Work Phone: [facility] Start: 11-23-2022 End: 11-23-[address] Wyatt Marcelo Work Phone: [facility] Work Phone: Start: 11-23-2022 End: 11-23-[address] Wyatt Marcelo Work Phone: [facility], Specimen Start: 11-23-2022 End: 11-23-[address] Wyatt Marcelo Work Phone: [facility] Start: 11-22-2022 End: 11-22-[address] Wyatt Marcelo Work Phone: [facility] Work Phone: Start: 11-22-2022 End: 11-22-[address] Wyatt Marcelo [facility] Start: 11-08-2022 End: 11-08-[address] Wyatt Marcelo Work Phone: [facility] Work Phone: Start: 11-08-2022 End: 11-08-[address] Wyatt Marcelo Work Phone: [facility], [facility] Start: 11-01-2022 End: 11-01-[address] Wyatt Marcelo Work Phone: [facility] [place] Start: 10-31-2022 End: 10-31-[address] Wyatt Marcelo Work Phone: [facility] Start: 10-28-2022 End: 10-28-[address] Wyatt Marcelo Work Phone: [facility] Internal Medicine Start: 10-19-2022 End: 10-19-[address] Wyatt Marcelo Work Phone: [facility] Start: 10-14-2022 End: 10-14-[address] Wyatt Marcelo Work Phone: [facility] Start: 10-14-2022 Non-patient / Non-visit Dr. Wyatt Marcelo Work Phone: [facility] Start: 10-13-2022 End: 10-13-[address] Wyatt Marcelo Work Phone: [facility] Work Phone: Start: 10-13-2022 End: 10-13-[address] Wyatt Marcelo Work Phone: [facility] Start: 09-30-2022 End: 09-30-[address] Wyatt Marcelo Work Phone: [facility] Medicine Start: 09-29-[address] Marta Marcelo Work Phone: [facility] Start: 09-29-2022 End: 09-29-[address] Wyatt Marcelo Work Phone: [facility] Work Phone: Start: 09-29-2022 End: 09-29-[address] Wyatt Marcelo Work Phone: [facility] Start: 09-01-2022 End: 09-01-[address] Wyatt Marcelo Work Phone: [facility] Start: 09-01-2022 Non-patient / Non-visit Dr. Wyatt Marcelo Work Phone: [facility] Start: 08-15-2022 End: 08-15-[address] Wyatt Marcelo Work Phone: [facility] Endocrinology Start: 08-04-2022 End: 08-04-[address] Wyatt Marcelo Work Phone: [facility] Work Phone: Start: 08-04-2022 End: 08-04-[address] Wyatt Macrelo [facility] [place] Start: 07-01-2022 End: 07-01-[address] Wyatt Marcelo Work Phone: [facility] Start: 06-24-2022 End: 06-24-[address] Wyatt Marcelo [facility] [place] Start: 06-13-[address] Marta Marcelo Work Phone: [facility] Start: 06-13-2022 End: 06-13-[address] Wyatt Marcelo Work Phone: [facility] Work Phone: Start: 06-13-2022 End: 06-13-[address] Wyatt Marcelo Work Phone: [facility] [place] Start: 05-06-2022 End: 05-06-2022 Encounter for general adult medical examination without abnormal findings Dr. Wyatt Marcelo Work Phone: [facility] Start: 05-06-2022 End: 05-06-[address] Wyatt Marcelo Work Phone: [facility] Start: 04-22-2022 End: 04-22-[address] Wyatt Marcelo Work Phone: [facility] Work Phone: Start: 04-22-2022 End: 04-22-[address] Wyatt Marcelo Work Phone: [facility] [place] Start: 03-22-2022 End: 03-22-[address] Wyatt Marcelo Work Phone: [facility] Work Phone: Start: 03-22-2022 End: 03-22-[address] Wyatt Marcelo Work Phone: [facility] [place] Start: 03-22-[address] Marta Marcelo Work Phone: [facility] Start: 03-07-2022 End: 03-07-[address] Wyatt Marcelo Work Phone: [facility] Start: 03-07-2022 End: 03-07-2022 Emergency department patient visit Dr. Wyatt Marcelo Work Phone: [facility] Start: 02-10-2022 End: 02-10-[address] Wyatt Marcelo Work Phone: [facility] Start: 01-11-2022 End: 01-11-[address] Wyatt Rodriguez [facility] [place] Start: 12-27-2021 End: 12-27-[address] Wyatt Marcelo Work Phone: [facility] [place] Start: 11-22-2021 End: 11-22-[address] Wyatt Marcelo Work Phone: [facility] Medicine Start: 10-21-2021 End: 10-21-[address] Wyatt Rodriguez Phone: [facility] [place] Start: 10-08-2021 End: 10-08-[address] Wyatt Marcelo [facility] Start: 10-08-2021 End: 10-08-[address] Wyatt Marcelo Work Phone: [facility] Medicine Start: 09-14-2021 End: 09-14-[address] Wyatt Marcelo Work Phone: [facility] [place] Start: 09-13-2021 End: 09-13-[address] Wyatt Marcelo Work Phone: [facility] [place] Start: 08-19-2021 End: 08-19-[address] Wyatt Marcelo Work Phone: [facility] Endocrinology Start: 07-28-2021 End: 07-28-[address] Wyatt Marcelo Work Phone: [facility] Medicine Start: 07-26-2021 End: 07-26-[address] Wyatt Marcelo Work Phone: [facility] [place] Start: 07-01-2021 End: 07-01-[address] Wyatt Marcelo Work Phone: [facility] Start: 02-15-[address] Wyatt Marcelo Work Phone: [facility] Start: 07-04-2017 End: 07-05-2017 Ambulatory [facility] Facility:[facility] Start: 06-20-2017 Ambulatory [facility] Facility:[facility] Start: 04-27-2017 End: 04-28-2017 Ambulatory [facility] Start: 04-14-[address] Luna y:[facility] Start: 04-13-2017 End: 04-14-2017 Ambulatory NO REFERRING Facility:[facility] Start: 04-03-2017 End: 04-04-2017 Ambulatory MAIAER R ANTONIO Facility:[facility] Start: 02-06-2017 End: 02-07-2017 [facility] Procedures Date Procedure Procedure Detail Performing Clinician Start: 01-21-2025 X-ray of foot, three or more views Dr. Wyatt Marcelo MD Work Phone: Start: 01-16-[address] Wyatt Marcelo MD Work Phone: Start: 10-12-2023 Plain chest X-ray Dr. Wyatt Marcelo Work Phone: Start: 09-08-[address] Wyatt Marcelo Work Phone: Start: 02-15-2023 Ultrasonography of thyroid and parathyroid Dr. Wyatt Marcelo Work Phone: Start: 02-03-2023 X-ray of lumbosacral spine Dr. Wyatt Marcelo Work Phone: Start: 02-03-2023 Radiologic examination of knee Dr. Lemuel Marcelo Work Phone: Start: 11-22-2022 Radioisotope scan of parathyroid Dr. Adam Marcelo Work Phone: Start: 11-08-2022 US scan of thyroid Dr. Wyatt Marcelo Work Phone: Start: 10-31-[address] Wyatt Marcelo Work Phone: Start: 10-13-2022 Plain x-ray of hand Dr. Wyatt Marcelo Work Phone: Start: 10-13-2022 Plain x-ray of pelvis and lower extremity Dr. Wyatt Marcelo Work Phone: Start: 06-24-2022 Plain chest X-ray Dr. Wyatt Marcelo Work Phone: Start: 09-13-2021 Plain x-ray of hand Dr. Wyatt Marcelo Work Phone: Start: 09-13-2021 Radiologic examination of knee Dr. Lemuel Marcelo Work Phone: Start: 09-13-2021 X-ray of both feet Dr. Wyatt Marcelo Work Phone: Start: 09-13-2021 X-ray of lumbar spine, two or three views Dr. Wyatt Marcelo Work Phone: Start: 02-06-2017 EGD BIOPSY SINGLE/MULTIP CHRISTOPHER CELIA GLE Clostridium difficile detection Dr. Wyatt Marcelo Work Phone: Clostridium difficile detection Dr. Wyatt Marcelo Work Phone: Enteric Bacteriology Dr. Adam Marcelo Work Phone: Enteric Bacteriology Dr. Adam Marcelo Work Phone: H/O: hysterectomy History of tot al vaginal hysterectomy (TVH) Dr. Wyatt Marcelo Work Phone: Comment on above: Laparoscopic cholecystectomy total vagin al hysterectomy bilateral salpingectomy Plan of Treatment Date Care Activity Detail Author Start: 01-16-2025 Egd transoral biopsy single/multiple EGD BIOPSY SINGLE/MULTIPLE [facility] Start: 01-16-2025 Patient discharge [facility] Start: 05-10-2023 Patient referral [facility] Work Phone: Start: 04-26-2023 Evaluation of diagno stic study results [facility] Start: 09-29-2022 Patient referral [facility] Work Phone: Start: 03-07-2022 Hepatitis B surface antigen measurement [facility] Work Phone: Start: 03-07-2022 Hepatitis C antibody measurement [facility] Work Phone: 24 hour urine calciu m output measurement [facility] Cardiovascular stres s testing [facility] Erythrocyte mean corpuscular volume determination [facility] Ferritin [Mass/volum e] in Serum or Plasma [facility] Hematocrit [Volume Fraction] of Blood [facility] Hemoglobin [Mass/vol ume] in Blood [facility] Hemoglobin A1c/Hemoglobin.total in Blood [facility] Hepatitis B surface antigen measurement [facility] Work Phone: Hepatitis B virus rodas rface IgG Ab [Presence] in Serum [facility] Work Phone: Hepatitis C antibody measurement [facility] Work Phone: HIV 1+2 Ab+HIV1 p24 Ag [Presence] in Serum or Plasma by Immunoassay [facility] Work Phone: In-vitro immunologic test [facility] Work Phone: Iron [Mass/mass] in Unspecified specimen [facility] Iron and Iron bindin g capacity panel - Serum or Plasma [facility] Leukocytes [#/volume ] in Blood [facility] Lipid 1996 panel - S rosita or Plasma [facility] Mean corpuscular hem oglobin concentration determination [facility] Mean corpuscular hem oglobin determination [facility] MG Breast - bilatera l Screening [facility] Mycobacterium tuberc ulosis tuberculin stimulated gamma interferon [Presence] in Blood [facility] Work Phone: Parathyroid hormone measurement [facility] Patient Education [facility] Work Phone: Patient referral [facility] Work Phone: Platelets [#/volume] in Blood [facility] Red blood cell count [facility] Red cell distributio n width determination [facility] Thyroid stimulating hormone measurement [facility] Vitamin B12 measurement [facility] Vitamin D, 25-hydrox y measurement [facility] Vitamin D, 25-hydrox y measurement [facility] XR Foot GE [address] [facility] Immunizations Immunization Date Immunization Notes Care Provider [facility] 05-31-2024 influenza, seasonal, injectable, preservative free Dr. Wyatt Marcelo MD Work Phone: [facility] 04-19-2023 influenza, injectabl e, quadrivalent, preservative free Dr. Wyatt Marcelo Work Phone: [facility] 12-05-2022 tetanus toxoid, redu bassem diphtheria toxoid, and acellular pertussis vaccine, adsorbed Dr. Wyatt Marcelo Work Phone: [facility] 06-02-2022 influenza, injectabl e, quadrivalent, preservative free Dr. Wyatt Marcelo Work Phone: [facility] 06-02-2022 influenza, seasonal, injectable Dr. Wyatt Marcelo Work Phone: [facility] 07-30-2021 Covid (Moderna) Dr. Loni Marcelo Work Phone: [facility] 05-04-2021 influenza, injectabl e, quadrivalent, preservative free Dr. Wyatt Marcelo Work Phone: [facility] 05-04-2021 influenza, seasonal, injectable Dr. Wyatt Marcelo Work Phone: [facility] 05-04-2021 Seasonal, quadrivale nt, recombinant, injectable influenza vaccine, preservative free Dr. Wyatt Marcelo Work Phone: [facility] 09-21-2020 influenza, injectabl e, quadrivalent, preservative free Dr. Wyatt Marcelo Work Phone: [facility] 09-21-2020 influenza, seasonal, injectable Dr. Wyatt Marcelo Work Phone: [facility] 09-21-2020 Seasonal, quadrivale nt, recombinant, injectable influenza vaccine, preservative free Dr. Wyatt Marcelo Work Phone: [facility] 09-01-2020 Covid (Moderna) Dr. Loni Marcelo Work Phone: [facility] 08-04-2020 Covid (Moderna) Dr. Loni Marcelo Work Phone: [facility] 05-05-2019 influenza, injectabl e, quadrivalent, preservative free Dr. Wyatt Marcelo Work Phone: [facility] 05-05-2019 influenza, seasonal, injectable Dr. Wyatt Marcelo Work Phone: [facility] 04-13-2018 influenza, injectabl e, quadrivalent, preservative free Dr. Wyatt Marcelo Work Phone: [facility] 04-13-2018 influenza, seasonal, injectable Dr. Wyatt Marcelo Work Phone: [facility] 02-16-2018 hepatitis B vaccine, adult dosage Dr. Wyatt Marcelo Work Phone: [facility] 08-24-2017 hepatitis B vaccine, adult dosage Dr. Wyatt Marcelo Work Phone: [facility] 07-24-2017 hepatitis B vaccine, adult dosage Dr. Wyatt Marcelo Work Phone: [facility] 12-12-2016 tetanus toxoid, redu bassem diphtheria toxoid, and acellular pertussis vaccine, adsorbed Dr. Wyatt Marcelo Work Phone: [facility] 08-18-2015 influenza, injectabl e, quadrivalent, preservative free Dr. Wyatt Marcelo Work Phone: [facility] 05-19-2009 novel [id number], preservative-free, injectable Dr. Wyatt Marcelo Work Phone: [facility] Payers Date Payer Category Payer Self-pay [id number] 2023 Unknown [id number] Unknown [id number] Unknown [id number] Unknown [id number] 2.16.8 [id number] Unknown [id number] 2.16.8 [id number] Unknown [id number] 2.16.8 [id number] Unknown [id number] 2.16.8 [id number] Unknown [id number] 2.16.8 40.1.740580.3.579.2.462 Unknown [id number] 2.16.8 40.1.802848.3.579.2.462 Unknown [id number] 2.16.8 40.1.643754.3.579.2.462 Unknown [id number] 2.16.8 40.1.754988.3.579.2.462 Unknown [id number] 2.16.8 40.1.326131.3.579.2.462 Unknown [id number] 2.16.8 40.1.689312.3.579.2.462 Unknown [id number] 2.16.8 40.1.379765.3.579.2.462 Unknown [id number] 2.16.8 40.1.613638.3.579.2.462 Unknown [id number] 2.16.8 40.1.462468.3.579.2.462 Unknown [id number] 2.16.8 40.1.726868.3.579.2.462 Unknown [id number] 2.16.8 40.1.424109.3.579.2.462 Unknown [id number] 2.16.8 40.1.762149.3.579.2.462 Unknown [id number] 2.16.8 40.1.946998.3.579.2.462 Unknown [id number] 2.16.8 40.1.599345.3.579.2.462 Unknown [id number] 2.16.8 40.1.004725.3.579.2.462 Unknown [id number] 2.16.8 40.1.796311.3.579.2.462 Unknown [id number] 2.16.8 40.1.127721.3.579.2.462 Unknown [id number] 2.16.8 40.1.321179.3.579.2.462 Unknown [id number] 2.16.8 40.1.540422.3.579.2.462 Unknown [id number] 2.16.8 40.1.724921.3.579.2.462 Unknown [id number] 2.16.8 40.1.011249.3.579.2.462 Unknown [id number] 2.16.8 40.1.416045.3.579.2.462 Unknown [id number] 2.16.8 [id number] Social History Date Type Detail Facility Start: 10-08-2021 End: 10-12-2023 Tobacco smoking status NCIS Unknown if ever smoked [facility] Start: 1980 Sex Assigned At Female [facility] Start: 08-31-2024 End: 01-14-2025 Tobacco smoking status NHIS Never smoked tobacco (finding) [facility] Start: 10-14-2024 End: 11-12-2024 Sex Female (finding) [facility] NEGATED: Highlighted row Not [facility] Medical Equipment Procedure Code Equipment Code Equipment Origin al Text Equipment Identifier Dates NINAGAYLEESTELLA CROUCH FDA Start: 06-21-2018 NINAGAYLEESTELLA CROUCH FDA Start: 06-21-2018 EDNA WOOD FDA Start: 06-21-2018 NINAGAYLEESTELLA CROUCH FDA Start: 06-21-2018 NINAGAYLEESTELLA CROUCH FDA Start: 06-21-2018 NINAGAYLEESTELLA Valery CROUCH FDA Start: 06-21-2018 NINAGAYLEESTELLA CROUCH FDA Start: 06-21-2018 NINAGAYLEESTELLA CROUCH FDA Start: 06-21-2018 NINAGAYLEESTELLA CROUCH FDA Start: 06-21-2018 NINAGAYLEESTELLA CROUCH FDA Start: 06-21-2018 NINAGAYLEESTELLA CROUCH FDA Start: 06-21-2018 NINAGAYLEESTELLA CROUCH FDA Start: 06-21-2018 NINAGAYLEESTELLA Valery WEJARRETT FDA Start: 06-21-2018 NINAGAYLEESTELLA Valery WEJARRETT FDA Start: 06-21-2018 NINAGAYLEESTELLA CROUCH FDA Start: 06-21-2018 NINAGAYLEESTELLA CROUCH FDA Start: 06-21-2018 NINAHEMESTELLA Rasmussen WEJARRETT FDA Start: 06-21-2018 NINAGAYLEESTELLA Rasmussen WEJARRETT FDA Start: 06-21-2018 NINAGAYLEESTELLA Rasmussen WEJARRETT FDA Start: 06-21-2018 NINAEDNA CROUCH FDA Start: 06-21-2018 CLIPHEMESTELLA CROUCH FDA Start: 06-21-2018 CLIP,HEMESTELLA CROUCH FDA Start: 06-21-2018 CLIP,HEMESTELLA MICHAEL D WILLA FDA Start: 06-21-2018 CLIPHEMESTELLA CROUCH FDA Start: 06-21-2018 CLIPHEMESTELLA CROUCH FDA Start: 06-21-2018 CLIP,HEMMARSCK ME Valery CROUCH FDA Start: 06-21-2018 CLIP,HEMMARSCK ME Valery CROUCH FDA Start: 06-21-2018 CLIPHEMESTELLA CROUCH FDA Start: 06-21-2018 CLIP,HEMESTELLA CROUCH FDA Start: 06-21-2018 CLIP,HEMESTELLA CROUCH FDA Start: 06-21-2018 CLIPHEMESTELLA CROUCH FDA Start: 06-21-2018 CLIPHEMESTELLA CROUCH FDA Start: 06-21-2018 CLIPEDNA CROUCH FDA Start: 06-21-2018 CLIPEDNA CROUCH FDA Start: 06-21-2018 CLIPHEMESTELLA CROUCH FDA Start: 06-21-2018 CLIPEDNA FDA Start: 06-21-2018 CLIPEDNA CROUCH FDA Start: 06-21-2018 NINAHEMESTELLA CROUCH FDA Start: 06-21-2018 CLIPEDNA FDA Start: 06-21-2018 NINAEDNA CROUCH FDA Start: 06-21-2018 CLIPHEMESTELLA CROUCH FDA Start: 06-21-2018 CLIPHEMESTELLA CROUCH FDA Start: 06-21-2018 CLIPHEMESTELLA CROUCH FDA Start: 06-21-2018 CLIPHEMMARSCK D WEJARRETT FDA Start: 06-21-2018 CLIPHEMESTELLA CROUCH FDA Start: 06-21-2018 NINAHEMESTELLA Rasmussen WEJARRETT FDA Start: 06-21-2018 Safety [place] ( Bd Eclipse) 25 gauge x 1 needle Start: 10-10-2023 NINAHEMMARSCK D WEJARRETT FDA Start: 06-21-2018 NINAHEMESTELLA Rasmussen WEJARRETT FDA Start: 06-21-2018 Safety [place] ( Bd Eclipse) 25 gauge x 1 needle Start: 10-10-2023 EDNA WOOD Valery CROUCH FDA Start: 06-21-2018 EDNA WOOD WILLA FDA Start: 06-21-2018 Safety [place] ( Bd Eclipse) 25 gauge x 1 needle Start: 10-10-2023 End: 03-20-2024 NINAEDNA Valery CROUCH FDA Start: 06-21-2018 EDNA WOOD WILLA FDA Start: 06-21-2018 Safety Hampton ( Bd Eclipse) 25 gauge x 1 needle Start: 10-10-2023 End: 03-20-2024 NINAEDNA Valery CROUCH FDA Start: 06-21-2018 EDNA WOOD Valery CROUCH FDA Start: 06-21-2018 Safety [place] ( Bd Eclipse) 25 gauge x 1 needle Start: 10-10-2023 End: 03-20-2024 NINAEDNA MICHAEL Valery CROUCH FDA Start: 06-21-2018 NINAEDNA Valery CROUCH FDA Start: 06-21-2018 Safety [place] ( Bd Eclipse) 25 gauge x 1 needle Start: 10-10-2023 End: 03-20-2024 NINAEDNA MICHAEL Valery CROUCH FDA Start: 06-21-2018 EDNA WOOD Valery CROUCH FDA Start: 06-21-2018 Safety Hampton ( Bd Eclipse) 25 gauge x 1 needle Start: 10-10-2023 End: 03-20-2024 NINAEDNA MICHAEL Valery CROUCH FDA Start: 06-21-2018 EDNA WOOD Valery CROUCH FDA Start: 06-21-2018 Safety [place] ( Bd Eclipse) 25 gauge x 1 needle Start: 10-10-2023 End: 03-20-2024 NINAEDNA Valery WILLA FDA Start: 06-21-2018 NINAEDNA Valery CROUCH FDA Start: 06-21-2018 Safety Hampton ( Bd Eclipse) 25 gauge x 1 needle Start: 10-10-2023 End: 03-20-2024 Goals Date Patient Goal Desired Activity /State Mental Status Date Assessment Result Facility 01-16-2025 Cognitive function Voice/Name;Touch/Romero [facility] Work Phone: Clinical Notes 2018 to 01-22-2025 Note Date & Type Note Facility 01-22-2025 Radiology Diagnostic study note [facility] Imaging Services [address] [place] [address] Foot min 3 Views MR#: [id number] Acct: [id number] Name: ALMA ADEN Rep #: [id number] : 1980 F 44 From: Clyde Yancey MD PCP: Dr. Wyatt Marcelo MD Status: R EG CLI Study:Foot min 3 Views Date of Exam: 03/10 Exam# [id number] Ordering Dr: Kati Hilliard PROCEDURE: FOOT MIN 3 VIEWS 01/21/2025 REASON FOR EXAM: PAIN IN HEEL X 2 WEEKS TECHNIQUE: FOOT MIN 3 VIEWS COMPARISON: 09/08/2023 FINDINGS: TECHNIQUE: X-ray foot AP, oblique and lateral views. FINDINGS: Alignment is normal without evidence of acute displaced fracture or dislocation seen. Metatarsophalangeal and interphalangeal joints appear normal. No sclerotic or lytic bone lesion noted. Soft tissues appear normal. RAD/Foot min 3 Views IMPRESSION: No acute abnormality seen. No new acute findings. Reading Location: [place] [address] CC: CORK SLABS SAWYERLeeroy Hilliard; Dr. Wyatt Marcelo MD ~ Gluer And Slicer Hand: Signed [facility] 01-21-2025 Progress note [facility] 01-16-2025 Consult note [facility] 01-16-2025 Procedure note [facility] 01-16-2025 Procedure note [facility] 01-16-2025 Consult note [facility] 01-16-2025 History and physi rachell note [facility] 01-16-2025 Note [facility] Medical Records Department [address] [place] [address] History Physical Exam 01/16/25 0655 MR#: [id number] Acct: [id number] Name: ALMA ADEN Rep #: [id number] : 1980 44 From: Hammad Loaiza DO PCP: Dr. Wyatt Marcelo MD [place] [place] [address] HPI - General General Date of Admission: 01/16/25 Date of Service: 01/16/25 Chief Complaint: GERD HPI Narrative ALMA ADEN, is a 44 F who presents Chief Complaint: BRBPR BGI established in 2020 with diarrhea and constipation. Pt has heartburn and takes TUMs and nexium PRN. EGD 03.17.22; Gastritis. Biopsied. - Erythematous duodenopathy. Biopsied. Colonoscopy 03.17.22; - Tortuous colon. - One 3 mm polyp in the rectum, removed with a jumbo cold forceps. Resected and retrieved. OV 12.13.24 for reestablishment. Over the last week pt has had BRBPR when wiping. She has not seen it in the toilet bowl. She does endorse worse constipation at this time with a a bm every 2-3 days. She does not take anything daily for constipation. Pt also having worse heartburn over the past few weeks. She will take pepcid as needed but not daily. [facility] Medical History History of prediabetes Rheumatoid arthritis Low iron High cholesterol History of IBS Hyperparathyroidism Diabetes mellitus type 2, diet-controlled Preventative [...] (65 mg 325 mg PO DAILY 12/16/19 01/08/25 History iron) tablet (FeroSul) mecobalamin (vitamin B12) 1,000 1,000 mcg PO DAILY 11/14/23 History mcg chewable tablet melatonin 3 mg capsule 3 mg PO HS 11/14/23 01/15/25 Histo ry upadacitinib 15 mg tablet,extended 15 mg PO DAILY 11/14/23 01/15/25 History release 24 hr (Rinvoq) ubrogepant 100 mg tablet (Ubrelvy) 100 mg PO ONCE PRN MIGRAINES #15 12/12/23 01/13/25 Rx tabs alprazolam 0.25 mg tablet (Xanax) 0.25 mg PO DAILY PRN PRN Anxiety 04/25/24 01/09/25 Rx #20 tabs prednisone 10 mg tablet 10 mg PO DAILY PRN Arthritis #100 04/25/24 01/02/25 Rx tabs methotrexate 2 mg/mL oral solution 2.5 mg PO SA 08/31/24 Unknown Hi story duloxetine 30 mg capsule,delayed 30 mg PO DAILY #90 caps 09/05/24 0 01/15/25 Rx release losartan 100 mg tablet 100 mg PO DAILY #90 tabs 10/14/24 01/16/25 Rx duloxetine 60 mg capsule,delayed 60 mg PO QDAY DEPRESSION #90 caps 12/03/24 01/15/25 Rx release (Cymbalta) levothyroxine 150 mcg tablet 150 mcg PO MOTUTHFRSA 01/14/2510/08 History Allergy/AdvReac Type Severity Reaction Status Date / Time sumatriptan Allergy Severe headache Verified 01/16/25 05:53 penicillin G Allergy Mild Other Verified 01/16/25 05:53 latex Allergy Rash Verified 01/16/25 05:53 escitalopram (From Lexapro) AdvReac Other Verified 01/16/25 05:53 Family History Grandmother Heart disease Arthritis Diabetes Hypertension Thyroid disorder Stomach ulcer Mother Asthma Arthritis Hypertension Osteoporosis Aunt Arthritis Heart disease Autoimmune disease Grandfather Cancer lung Father Hypertension Uncle Heart disease Other Anemia Anesthesia complication Anxiety Parkinson disease Skin cancer Surgical History Hx of hysterectomy History of total vaginal hysterectomy (TVH) lesion removal from lip Social History number of children: 2 sexually active: No Smoking Status: Never smoker alcohol intake: current alcohol intake frequency: holidays/special occasions only details: Social substance use type: does not use caffeine: Yes what type of physical activity do you participate in: none seatbelt use: always do you feel safe at home: Yes 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 [facility] 01-16-2025 Consult note [facility] 10-23-2024 Evaluation note Diagnosis Onset Date Resolution Diabetes mellitus type 2, diet-controlled acute October 23 4:43pm Anxiety and depression chronic Ap ril 2024 4:43pm Hypertension chronic October 23, 025 4:43pm KRISTOPHER (obstructive sleep apnea) chronic October 23, 2024 4:43pm Constipation acute December 13 6:57am GERD (gastroesophageal reflux disease) chronic December 13, 2024 6:57am Hypothyroidism chronic January 07, 2025 11:26am [facility] Work Phone: 1([phone]) 294-266404-09-2025 Evaluation note* Diagnosis Onset Date Resolution Status Admit Date Diabetes mellitus type 2, diet-controlled acute October 23, 2024 4:43pm Anxiety and depression chronic Ap ril 2024 4:43pm Hypertension chronic October 23, 2 025 4:43pm KRISTOPHER (obstructive sleep apnea) chroni c October 23, 2024 4:43pm Constipation acute December 13 6:57am GERD (gastroesophageal reflu x disease) chronic December 13, 2024 6:57am Hyperparathyroidism chronic January 07, 2025 11:26am Hypothyroidism chronic January 07, 2025 11:26am GERD (gastroesophageal reflu x disease) chronic January 16, 2025 5:26am [facility] Work Phone: 1(591) 478-912704-09-2025 Evaluation note* Diagnosis Onset Date Resolution Status Admit Date Diabetes mellitus type 2, diet-controlled acute October 23, 2024 4:43pm Anxiety and depression chronic Ap ril 2024 4:43pm Hypertension chronic October 23, 2 025 4:43pm KRISTOPHER (obstructive sleep apnea) chroni c October 23, 2024 4:43pm Constipation acute December 13 6:57am GERD (gastroesophageal reflu x disease) chronic December 13, 2024 6:57am Hyperparathyroidism chronic January 07, 2025 11:26am Hypothyroidism chronic January 07, 2025 11:26am GERD (gastroesophageal reflu x disease) chronic January 16, 2025 5:26am Pain of left heel acute January 12:34pm [facility] Work Phone: 1(340) 318-801702-15-2025 Evaluation note* Diagnosis Onset Date Resolution Status Admit Date Sinus infection acute August 31, 2024 11:35am [facility] Work Phone: 1(560) 782-537802-15-2025 Evaluation note* Diagnosis Onset Date Resolution Status Admit Date Sinus infection acute August 31, 2024 11:35am Diabetes mellitus type 2, diet-controlled acute October 23, 2024 4:43pm Anxiety and depression chronic Ap 2024 4:43pm Hypertension chronic October 23, 4:43pm KRISTOPHER (obstructive sleep apnea) chroni c October 23, 2024 4:43pm [facility] Work Phone: 1(476) 922-589002-28-2022 NoteHNO ID: [id number] Author: Flower Pinedo MD Service: ? Author [...] the mornings and evenings. 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 Swelling in hands towards the end of [...] of Onset (more content not included)...[facility]01-05-2019 Consult note Author Adi Berger [facility] Note Date/Time January 16, 2025 7:20a m [facility] Medical Records Department [address] [place] [address] Anesthesia Postop Eval I 01/16/25 0719 MR#: [id number] Acct: [id number] Name: ALMA ADEN Rep #:[id number] : 1980 44 From: Adi Saleh RNA PCP: Dr. Wyatt Marcelo MD Status:R EG SDC Y Race: C Location: [place] [address] Anesthesia: Postop Eval I Current Vital Signs Temperature: 97 F Pulse Rate: 72 Blood Pressure: 135/102 Respiratory Rate: 16 Pulse Ox: 98 Oxygen Delivery Method: Room Air Assessment Airway patent: Yes Spontaneous unlabored respirations: Yes Mental status: Awake and Calm nausea: No Vomiting: No Anesthesia Complication: No Fluid Hydration Crystalloid volume administer (ml): 100 Total IV fluid infused: 100 Progress Note Anesthesia document: Postop Eval 1 completed: Yes 01/16/25719 <Electronically signed by Adi Berger CRNA> Date _ Adi Berger CRNA Cosigner Signature: Date CC: ~ Signed [facility] Work Phone: Chief complaint+Reason for visit Narrative* Chief Complaint 1 Y FU NEED REFERRAL FOR RHEUMATOLOGY Thyroid dysfunction leg pain LEFT LEG PAIN Reason for Visit BMI 45.0-49.9, adult KRISTOPHER (obstructive sleep apnea) Sjogren's disease Sjogren's disease Insulin resistance Hypothyroidism Pain of left calf Hypertension [facility] Work Phone: Chief complaint+Reason for visit Narrative* Chief Complaint SORE THROAT/HEADACHE /PCR exposure employee Reason for Visit COVID-19 Needlestick injury of finger Occupational exposure in workplace [facility] Work Phone: Consult note Author Konrad Henderson [facility] Note Date/Time January 16, 2025 6:28a [facility] Medical Records Department [address] [place] [address] Pre-Anesthesia Evaluation 01/16/25 0627 MR#: [id number] Acct: [id number] Name: ALMA ADEN Rep #:[id number] : 1980 44 From: Konrad Henderson MD PCP: Dr. Waytt Marcelo MD Status:R EG SDC Y Race: C Location: [facility]10-1 ASA Classification* ASA Classification ASA Classification: 3 Assessment & Plan Anesthesia* Anesthesia Assessment Anesthesia Assessment: Discussed sedation and/or anesthesia options, risks, benefits, and alternatives with patient/parents/legal guardian/POA. Questions invited. The patient/parents/legal guardian/POA seems to understand and agrees to proceedwith anesthesia plan. Reviewed the physical assessment, medical history, allergy history and patient home medications list prior to surgery/procedure/anesthetic and documented any changes. Performed airway and anesthesia risk assessments. Anesthesia Type Anesthesia Type: MAC History Source History Obtained from:: Patient and Chart Anesthesia Focused Assessment* Temperature: 95.8 F Pulse Rate: 76 Blood Pressure: 141/95 Respiratory Rate: 20 Pulse Ox: 97 Oxygen Delivery Method: Room Air Airway Assessment Mouth opens: 2 cm Mallampati Score: III Teeth Condition: Intact Neck Range of motion (ROM): Full ROM Labs Anesthesia Preop lab: CBC WBC 6.7 K/mm3 (4.4-11.0) 11/07/24 11:30 11/07/24 RBC 3.76 M/mm3 (4.2-5.4) L 11/07/24 11:30 11/07/24 Hgb 11.9 g/dL (12.0-15.0) L 11/07/24 11:30 5 Hct 36.6 % (37-47) L 11/07/24 11:30 11/07/24 Plt Count 318 K/mm3 (150-450) 11/07/24 11:30 11/07/24 CHEMISTRY Potassium 4.2 mmol/L (3.5-5.1) 04/25/24 07:56 04/25/24 Sodium 139 mmol/L (136-145) 04/25/24 07:56 04/25/24 Phosphorus 3.0 mg/dL (2.5-4.9) 04/25/24 07:56 04/25/24 BUN 12 mg/dL (7-18) 04/25/24 07:56 04/25/24 Creatinine 0.80 mg/dL (0.70-1.20) 11/07/24 11:30 11/07/24 Glucose 115 mg/dL (74-106) H 04/25/24 07:56 04/25/24 TSH 0.729 uIU/mL (0.300-4.200) 11/07/24 11:30 10/16 11/08 COAG PT 12.9 SECONDS (11.7-14.9) 06/15/18 11:30 Urine Test Negative Negative 06/21/18 05:38 06/21/18 Pre-Assessment Diagnosis/Proposed Procedure Planned Operative Procedure(s): EGD Anesthesia History 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 When Was Last Pacemaker Check QUESTION #4 FULL TEXT: You/Your Family Experience fever (hyperthermia) with Anesthesia Last Oral Intake Last Oral intake: Last Oral Intake NPO since 18:00 01/16/25 05:54 Meds taken in AM with sips of water? Meds patient instructed to take am of surgery PONV PONV - fitting room operator: PONV - fitting room operator Female Yes 01/14/25 14:39 HX of Motion Sickness No 01/14/25 14:39 HX of N/V After Surgery No 01/14/25 14:39 Non-Smoker Yes 01/14/25 14:39 Duration of Surgery greater No 01/14/25 14:39 than 60 minutes Number of Risk Factors 2 01/14/25 14:39 PONV Score Moderate Risk 01/14/25 14:39 Height & Weight Height & Weight: Anesthesia: Height & Weight Height 5 ft 8 in 01/16/25 05:54 Weight: 177.6 kg 01/16/25 05:54 Body Mass Index (BMI) 59.5 01/16/25 05:54 Respiratory Assessment Respiratory Assessment - fitting room operator: Respiratory Tract Infection Hx - fitting room operator Hx Respiratory Tract Infection No 01/14/25 14:39 STOP Sleep Apnea STOP Sleep Apnea - fitting room operator: STOP Sleep Apnea - fitting room operator Hx Hypertension Yes 01/14/25 14:39 Hx Sleep Apnea Yes 01/14/25 14:39 CPAP No 01/14/25 14:39 BIPAP Yes 01/14/25 14:39 Do you snore loudly (louder than talking or can be heard Do you often feel tired/ fatigued/ sleepy during daytime? Has anyone observed you stop breathing during sleep? STOP Results Positive 01/14/25 14:39 QUESTION #5 FULL TEXT : Do you snore loudly (louder than talking or can be heard through closed doors)? Tobacco Use History Tobacco Use History - fitting room operator: Tobacco Use History - fitting room operator Tobacco Use Smoking Status Never smoker 01/14/25 14:39 Hx Tobacco Use No 01/14/25 14:39 Years Smoking Packs Smoked per Day Smoking Cessation Date was within the last 15 years Hx Smoking Cessation Date Hx Smoking Cessation Counseling Hematologic Medial History Hematologic Hx - fitting room operator: Hematologic Medical Hx - rehabilitation therapy aide Hx of Blood Transfusion No 01/14/25 14:39 Hx of Transfusion in last 3 No 01/14/25 14:39 Months Date of Last Transfusion (if within last 3 months) Ever experience any problems No 01/14/25 14:39 with transfusion(s)? Specify any problems Hx of Preganancy in last 3 No 01/14/25 14:39 Months Nurse Filling Out Transfusion [facility] 01/14/25 14:39 & Questions: Date: 01/14/25 01/14/25 14:39 Time: 14:46 01/14/25 14:39 Patient unable to answer at this time (ie. confused, unrespo /Reproduction History /Reproductive History - fitting room operator: /Reproductive Hx- fitting room operator Hx Now No 01/14/25 14:39 Gestational Age (in weeks): EDC: Hx Hx Para Hx Section SAB No 01/14/25 14:39 Active Medications Active Medications: Current Medications Generic Name Dose Route Start Last Admin Trade Name Freq PRN Reason Stop Dose Admin Lactated Ringer's 1,000 mls @ 15 mls/hr 01/16/25 05:45 01/16/25 06:03 IV 15 mls/hr .Q48H TELLY Administration PFSH Medical History History of prediabetes Rheumatoid arthritis Low iron High cholesterol History of IBS Hyperparathyroidism Diabetes mellitus type 2, diet-controlled Preventative [...] Stomach ulcer Anxiety and depression Home Medications ?Medication ?Instructions ?Recorded ?Last Taken ?Type ferrous sulfate 325 mg (65 mg 325 mg PO DAILY 12/16/19 01/08/25 History iron) tablet (FeroSul) mecobalamin (vitamin B12) 1,000 1,000 mcg PO DAILY 01/15/25 History mcg chewable tablet melatonin 3 mg capsule 3 mg PO HS 11/14/23 01/15/25 History upadacitinib 15 mg tablet,extended 15 mg PO DAILY 10/1701/15/25 History release 24 hr (Rinvoq) ubrogepant 100 mg tablet (Ubrelvy) 100 mg PO ONCE PRN MIGRAINES #15 12/12/23 01/13/25 Rx tabs alprazolam 0.25 mg tablet (Xanax) 0.25 mg PO DAILY PRN PRN Anxiety 04/25/24 01/09/25 Rx #20 tabs prednisone 10 mg tablet 10 mg PO DAILY PRN Arthritis #100 04/25/24 01/02/25 Rx tabs methotrexate 2 mg/mL oral solution 2.5 mg PO SA Unknown History duloxetine 30 mg capsule,delayed 30 mg PO DAILY #90 ca ps 09/05/24 01/15/25 Rx release losartan 100 mg tablet 100 mg PO DAILY #90 tabs 01/16/25 Rx duloxetine 60 mg capsule,delayed 60 mg PO QDAY DEPRESS ION #90 caps 12/03/24 01/15/25 Rx release (Cymbalta) levothyroxine 150 mcg tablet 150 mcg PO MOTUTHFRSA 08/1001/16/25 History Allergy/AdvReac Type Severity Reaction Status Date / Time sumatriptan Allergy Severe headache Verified 01/16/25 05:53 penicillin G Allergy Mild Other Verified 01/16/25 05:53 latex Allergy Rash Verified 01/16/25 05:53 escitalopram (From Lexapro) AdvReac Other Verified 01/16/25 05:53 Family History Grandmother Heart disease Arthritis Diabetes Hypertension Thyroid disorder Stomach ulcer Mother Asthma Arthritis Hypertension Osteoporosis Aunt Arthritis Heart disease Autoimmune disease Grandfather Cancer lung Father Hypertension Uncle Heart disease Other Anemia Anesthesia complication Anxiety Parkinson disease Skin cancer Surgical History Hx of hysterectomy History of total vaginal hysterectomy (TVH) lesion removal from lip Social History number of children: 2 sexually active: No Smoking Status: Never smoker alcohol intake: current alcohol intake frequency: holidays/special occasions only details: Social substance use type: does not use caffeine: Yes what type of physical activity do you participate in: none seatbelt use: always do you feel safe at home: Yes 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 Physical Exam Const alert and oriented x3 Nutritional Appearance: obese Neck full ROM Cardio regular rate and regular rhythm Neuro oriented x3 and moves all extremities 01/16/25 0628 <Electronically signed by Konrad Adamson D> Date _ Konrad Henderson MD Cosigner Signature: Date CC: ~ Signed [facility] Work Phone: Consult note Author Konrad Henderson [facility] Note Date/Time January 16, 2025 7:55a m [facility] Medical Records Department [address] [place] [address] Anesthesia Postop Eval II 01/16/25 0746 MR#: [id number] Acct: [id number] Name: ALMA ADEN Rep #:[id number] : 1980 44 From: Konrad Henderson MD PCP: Dr. Wyatt Marcelo MD Status:R EG SDC Y Race: C Location: [place] [address] Anesthesia Postop Eval I Sum Postop Eval Completion status Anesthesia document: Postop Eval 1 completed: Yes Anesthesia Postop Eval I Summary Anesthesia Postop Eval I Summary: Anesthesia Postop Eval I: Assessment Summary Airway patent Yes 01/16/25 07:20 COMMISSIONING ENGINEER.MDOT Spontaneous unlabored Yes 01/16/25 07:20 COMMISSIONING ENGINEER.MDOT respirations Mental status Awake,Calm 01/16/25 07:20 COMMISSIONING ENGINEER.MDOT nausea No 01/16/25 07:20 COMMISSIONING ENGINEER.MDOT Vomiting No 01/16/25 07:20 COMMISSIONING ENGINEER.MDOT Anesthesia Postop Eval I: Fluid Summary Crystalloid volume administer 100 01/16/25 07:20 COMMISSIONING ENGINEER.MDOT (ml) Colloids volume administered ( ml) Blood Product volume administered (ml) Total IV fluid infused 100 01/16/25 07:20 COMMISSIONING ENGINEER.MDOT Anesthesia Postop Eval I: Summary Notes Anesthesia Complication No 01/16/25 07:20 COMMISSIONING ENGINEER.MDOT Anesthesia Complication Comment: Post-operative progress note Anesthesia: Postop Eval II Evaluation Mental status: Awake and Calm Pain Level: 1 nausea: No Vomiting: No Complications Anesthesia Complication: No 01/16/2546 <Electronically signed by Konrad Adamson D> Date _ Konrad Henderson MD Cosigner Signature: Date CC: ~ Signed [facility] Work Phone: Evaluation note* Diagnosis Onset Date Resolution Status BMI 45.0-49.9, adult chronic KRISTOPHER (obstructive sleep apnea) chronic Sjogren's disease chronic Sjogren's disease chronic Insulin resistance acute Hypothyroidism chronic Pain of left calf acute Hypertension chronic [facility] Work Phone: Evaluation note* Diagnosis Onset Date Resolution Status Pain of left calf acute Hypertension chronic Anxiety and depression chron ic Hypertension chronic Hypothyroidism chronic BMI 50.0-59.9, adult noneact werner Sweating increase noneactive [facility] Work Phone: Evaluation note* Diagnosis Onset Date Resolution Status Anxiety and depression chron ic Hypertension chronic Hypothyroidism chronic BMI 50.0-59.9, adult noneact werner Sweating increase noneactive COVID-19 acute [facility] Work Phone: Evaluation note* Diagnosis Onset Date Resolution Status COVID-19 acute Needlestick injury of finger acute Occupational exposure in workplace acute [facility] Work Phone: Evaluation note* Diagnosis Onset Date Resolution Status Needlestick injury of finger acute Occupational exposure in workplace acute Preventative health care non eactive [facility] Work Phone: Evaluation note* Diagnosis Onset Date Resolution Status Preventative health care non eactive Back pain noneactive Hip pain noneactive [facility] Work Phone: Evaluation note* Diagnosis Onset Date Resolution Status Back pain noneactive Hip pain noneactive Hypercalcemia acute Prediabetes acute Hypothyroidism chronic Vitamin deficiency chronic Acute bronchitis, unspecified acute B12 deficiency chronic Migraine headache without aura chronic Urge incontinence chronic B12 deficiency chronic [facility] Work Phone: Evaluation note* Diagnosis Onset Date Resolution Status Back pain noneactive Hip pain noneactive Hypercalcemia acute Prediabetes acute Hypothyroidism chronic Vitamin deficiency chronic B12 deficiency chronic Migraine headache without aura chronic Urge incontinence chronic B12 deficiency chronic Obesity, morbid, BMI 50 or higher acute Urge incontinence chronic Encounter for routine gynecological examination noneactive [facility] Work Phone: Evaluation note* Diagnosis Onset Date Resolution Status Hypercalcemia acute Prediabetes acute Hypothyroidism chronic Vitamin deficiency chronic B12 deficiency chronic Migraine headache without aura chronic Urge incontinence chronic B12 deficiency chronic Obesity, morbid, BMI 50 or higher acute Urge incontinence chronic Encounter for routine gynecological examination noneactive B12 deficiency [facility] Work Phone: Evaluation note* Diagnosis Onset Date Resolution Status Hypercalcemia acute Prediabetes acute Hypothyroidism chronic Vitamin deficiency chronic B12 deficiency chronic Migraine headache without aura chronic Urge incontinence chronic B12 deficiency chronic Obesity, morbid, BMI 50 or higher acute Urge incontinence chronic Encounter for routine gynecological examination noneactive B12 deficiency chronic Lymph node enlargement acute Primary hyperparathyroidism acute [facility] Work Phone: Evaluation note* Diagnosis Onset Date Resolution Status B12 deficiency chronic Migraine headache without aura chronic Urge incontinence chronic B12 deficiency chronic Obesity, morbid, BMI 50 or higher acute Urge incontinence chronic Encounter for routine gynecological examination noneactive B12 deficiency chronic Lymph node enlargement acute Primary hyperparathyroidism acute B12 deficiency chronic Autoimmune disease acute Cat bite acute [facility] Work Phone: Evaluation note* Diagnosis [...] (obstructive sleep apnea) chronic Sjogren's disease chronic [facility] Work Phone: Evaluation note* Diagnosis Onset Date Resolution Status B12 deficiency chronic Lymph node enlargement acute Primary hyperparathyroidism acute B12 deficiency chronic Autoimmune disease acute Cat bite acute B12 deficiency chronic BMI 45.0-49.9, adult chronic KRISTOPHER (obstructive sleep apnea) chronic Sjogren's disease chronic [facility] Work Phone: Evaluation note* Diagnosis Onset Date Resolution Status Autoimmune disease acute Cat bite acute B12 deficiency chronic BMI 45.0-49.9, adult chronic KRISTOPHER (obstructive sleep apnea) chronic Sjogren's disease chronic Palpitations acute Arthritis chronic Hypertension chronic [facility] Work Phone: Evaluation note* Diagnosis Onset Date Resolution Status BMI 45.0-49.9, adult chronic KRISTOPHER (obstructive sleep apnea) chronic Sjogren's disease chronic Palpitations acute Arthritis chronic Hypertension chronic Chest pain in adult noneacti ve [facility] Work Phone: Evaluation note* Diagnosis Onset Date Resolution Status Palpitations acute Arthritis chronic Hypertension chronic Chest pain in adult noneacti ve Borderline type 2 diabetes mellitus acute Preventative health care acu te Migraine headache without aura chronic [facility] Work Phone: Evaluation note* Diagnosis Onset Date Resolution Status Obesity, morbid, BMI 50 or higher acute Anxiety and depression chron ic [facility] Work Phone: Evaluation note* Diagnosis Onset Date Resolution Status Obesity, morbid, BMI 50 or higher acute Anxiety and depression chron ic Acute sinusitis acute [facility] Work Phone: History and physical note Author Hammad Loaiza [facility] Note Date/Time January 16, 2025 6:57a [facility] System Medical Records Department [address] [place] [address] History & Physical Exam 01/16/25 0655 MR#: [id number] Acct: [id number] Name: ALMA ADEN Rep #:[id number] : 1980 44 From: Hammad Loaiza DO PCP: Dr. Wyatt Marcelo MD Status:[facility] Location: [place] [address] HPI - General General Date of Admission: 01/16/25 Date of Service: 01/16/25 Chief Complaint: GERD HPI Narrative ALMA ADEN, is a 44 F who presents Chief Complaint: BRBPR [facility] established in 2020 with diarrhea and constipation. Pt has heartburn and takes TUMs and nexium PRN. EGD 03.17.22; Gastritis. Biopsied. - Erythematous duodenopathy. Biopsied. Colonoscopy 03.17.22; - Tortuous colon. - One 3 mm polyp in the rectum, removed with a jumbo cold forceps. Resected and retrieved. OV 5.25 for reestablishment. Over the last week pt has had BRBPR when wiping.She has not seen it in the toilet bowl. She does endorse worse constipation at this time with a a bm every 2-3 days. She does not take anything daily for constipation. Pt also having worse heartburn over the past few weeks. She will take pepcid as needed but not daily. [facility] Medical History History of prediabetes Rheumatoid arthritis Low iron High cholesterol History of IBS Hyperparathyroidism Diabetes mellitus type 2, diet-controlled Preventative [...] Stomach ulcer Anxiety and depression Home Medications ?Medication ?Instructions ?Recorded ?Last Taken ?Type ferrous sulfate 325 mg (65 mg 325 mg PO DAILY 12/16/19 01/08/25 History iron) tablet (FeroSul) mecobalamin (vitamin B12) 1,000 1,000 mcg PO DAILY 01/15/25 History mcg chewable tablet melatonin 3 mg capsule 3 mg PO HS 11/14/23 01/15/25 History upadacitinib 15 mg tablet,extended 15 mg PO DAILY 10/1701/15/25 History release 24 hr (Rinvoq) ubrogepant 100 mg tablet (Ubrelvy) 100 mg PO ONCE PRN MIGRAINES #15 12/12/23 01/13/25 Rx tabs alprazolam 0.25 mg tablet (Xanax) 0.25 mg PO DAILY PRN PRN Anxiety 04/25/24 01/09/25 Rx #20 tabs prednisone 10 mg tablet 10 mg PO DAILY PRN Arthritis #100 04/25/24 01/02/25 Rx tabs methotrexate 2 mg/mL oral solution 2.5 mg PO SA Unknown History duloxetine 30 mg capsule,delayed 30 mg PO DAILY #90 ca ps 09/05/24 01/15/25 Rx release losartan 100 mg tablet 100 mg PO DAILY #90 tabs 01/16/25 Rx duloxetine 60 mg capsule,delayed 60 mg PO QDAY DEPRESS ION #90 caps 12/03/24 01/15/25 Rx release (Cymbalta) levothyroxine 150 mcg tablet 150 mcg PO MOTUTHFRSA 08/1001/16/25 History Allergy/AdvReac Type Severity Reaction Status Date / Time sumatriptan Allergy Severe headache Verified 01/16/25 05:53 penicillin G Allergy Mild Other Verified 01/16/25 05:53 latex Allergy Rash Verified 01/16/25 05:53 escitalopram (From Lexapro) AdvReac Other Verified 01/16/25 05:53 Family History Grandmother Heart disease Arthritis Diabetes Hypertension Thyroid disorder Stomach ulcer Mother Asthma Arthritis Hypertension Osteoporosis Aunt Arthritis Heart disease Autoimmune disease Grandfather Cancer lung Father Hypertension Uncle Heart disease Other Anemia Anesthesia complication Anxiety Parkinson disease Skin cancer Surgical History Hx of hysterectomy History of total vaginal hysterectomy (TVH) lesion removal from lip Social History number of children: 2 sexually active: No Smoking Status: Never smoker alcohol intake: current alcohol intake frequency: holidays/special occasions only details: Social substance use type: does not use caffeine: Yes what type of physical activity do you participate in: none seatbelt use: always do you feel safe at home: Yes 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 [employer] 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 Constitutional Constitutional: Denies fatigue, fever(s), poor appetite, weight gain or weight loss Gastrointestinal Gastrointestinal: Denies belching, bloating, change in bowel habits, change in stool character, chewing difficulty, coffee ground emesis, constipation, cramping, diarrhea, dyspepsia, dysphagia, early satiety, excessive flatus, fecalincontinence, heartburn, hematemesis, hematochezia, hemorrhoids, loose stools, melena, nausea, odynophagia, rectal bleeding, tenesmus, vomiting or weight changes Vital Signs Vital Signs Vital Signs: 01/16/25 05:54 01/16/25 05:54 01/16/25 06:28 Temperature 95.8 F L 95.8 F L Temperature Source Temporal Pulse Rate 76 76 Respiratory Rate 20 H 20 H Respiratory Pattern Normal Blood Pressure 141/95 H 141/95 H Blood Pressure Mean 110 Blood Pressure Source Monitor Blood Pressure Position Semi-Fowlers Blood Pressure Location Left Arm Pulse Ox 97 97 Oxygen Delivery Method Room Air Room Air Weight Weight: 391 lb 8.655 oz Body Mass Index (BMI) 59.5 Physical Exam Const alert and oriented x3 Nutritional Appearance: obese Neck full ROM Cardio regular rate and regular rhythm Neuro oriented x3 and moves all extremities Assessment & Plan Assessment/Plan (1) GERD (gastroesophageal reflux disease): PLAN: Plan Assessment and Plan (1) Constipation: Status: Acute Plan: Alma is a 44 yo female pt here today for evaluation of BRBPR x1 week. Pt originally established with [facility] in 2020 for alternating constipation and diarrhea as well as heartburn. She underwent EGD and colonoscopy which showed gastritis and one hyperplastic polyp. Recommend repeat EGD in one year which shedid not end up having. She has had worsening constipation over the past few weeks which is when she started seeing bright red blood. Blood is likely from increased straining. I have recommended she start a fiber supplement and consider prescription medication for constipation. She will increase famotidine to daily. She is on GLP-1 which may be slowing down her entire GI tract leading to constipation and increased heartburn -EGD -Start fiber supplement -Start famotidine daily (2) GERD (gastroesophageal reflux disease): Status: Chronic 01/16/25 0657 <Electronically signed by Hammad Loaiza DO> Cosigner Signature (if applicable): CC: Dr. Wyatt Marcelo MD; Hammad Loaiza DO~ Signed [facility] Work Phone: Progress note Author Kati Hilliard [facility] Note Date/Time January 21, 2025 1:22p [facility] [address] [place] [address] OFFICE VISIT Date of Service: 01/21/25 MR#: [id number] Acct: [id number] Name: ALMA ADEN Rep #: [id number] : 1980 Provider: ZAFAR Hilliard Age/Sex: 44/F [place] [facility] Status: Signed Intake Vital Signs 01/16/25 05:54 01/21/25 12:40 Height 5 ft 8 in 5 ft 8 in BP 132/80 H Blood Pressure Location Lt brachial Position Sitting Respiration 16 Pulse 86 Pulse Source Monitor Temp 95.6 F L Temp Source Temporal Pulse Oximetry (%) 97 Oxygen Delivery Method room air Intake Visit Reasons: ACUTE LEFT HEEL PAIN Chief Complaint: heel pain 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: No Accompanied by: Self Is patient in pain?: Yes Pain scale (1-10): 5 Allergies sumatriptan Allergy (Severe, Verified 01/21/25 12:35) headache penicillin G Allergy (Mild, Verified 01/21/25 12:35) Other latex Allergy (Verified 01/21/25 12:35) Rash escitalopram (From Lexapro) Adverse Reaction (Verified 01/21/25 12:35) Other Medications ?Medication ?Instructions ?Recorded ?Confirmed ?Type ferrous sulfate 325 mg (65 mg 325 mg PO DAILY 12/16/19 01/21/25 History iron) tablet (FeroSul) mecobalamin (vitamin B12) 1,000 1,000 mcg PO DAILY 01/21/25 History mcg chewable tablet melatonin 3 mg capsule 3 mg PO HS 11/14/23 01/21/25 History upadacitinib 15 mg tablet,extended 15 mg PO DAILY 10/1701/21/25 History release 24 hr (Rinvoq) ubrogepant 100 mg tablet (Ubrelvy) 100 mg PO ONCE PRN MIGRAINES #15 12/12/23 01/21/25 Rx tabs alprazolam 0.25 mg tablet (Xanax) 0.25 mg PO DAILY PRN PRN Anxiety 04/25/24 01/21/25 Rx #20 tabs prednisone 10 mg tablet 10 mg PO DAILY PRN Arthritis #100 04/25/24 01/21/25 Rx tabs methotrexate 2 mg/mL oral solution 2.5 mg PO SA 01/21/25 History duloxetine 30 mg capsule,delayed 30 mg PO DAILY #90 ca ps 09/05/24 01/21/25 Rx release losartan 100 mg tablet 100 mg PO DAILY #90 tabs 01/21/25 Rx duloxetine 60 mg capsule,delayed 60 mg PO QDAY DEPRESS ION #90 caps 12/03/24 01/21/25 Rx release (Cymbalta) levothyroxine 150 mcg tablet 150 mcg PO MOTUTHFRSA 08/1001/21/25 History pantoprazole 40 mg tablet,delayed 40 mg PO BID 2 month s #120 tabs 01/16/25 01/21/25 Rx release prednisone 10 mg tablet 10 mg PO DIRECTED #48 tab s 01/21/25 01/21/25 Rx Nurse's Note: hurts with ambulation and if o PFSH Medical History History of prediabetes Rheumatoid arthritis Low iron High cholesterol History of IBS Hyperparathyroidism Diabetes mellitus type 2, diet-controlled Preventative [...] at home: Yes 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 Patient states no injury no increase in activity no change in footwear in this timeframe. Symptoms on bottom of the foot lateral side of heel. Has used as needed prednisone that she has for rheumatoid arthritis has also used heat limited amounts of NSAIDs due to gastritis. Pain only present when standing or walking on foot no pain at rest. ROS Const Constitutional: No body ache, excessive sweating, fatigue, fever(s), frequent falls, headache(s), snoring, weakness, weight change, sleep problems or change in appetite Eyes Eyes: No blurry vision, change in vision, eye pain or Light sensitivity ENT ENT: No abnormal hearing, ear or mastoid pain, tinnitus, nasal congestion, headache(s), neck pain or sore throat Resp Respiratory: No cough, shortness of breath, snoring or wheezing Cardio Cardiology: No chest pain at rest, chest pain with exertion, excessive sweating,shortness of breath, dyspnea on exertion, lightheadedness, orthopnea or palpitations Gastro GI: No abdominal pain, change in bowel habits, constipation, cramping, diarrhea,nausea/dyspepsia or vomiting Genitourinary-Female: No burning urination, painful urination, urinary incontinence, urinary frequency, blood in urine, abnormal periods or pelvic pain Musc Musculoskeletal: No abnormal gait, joint pain, back pain, limited range of motion, neck pain, numbness, stiffness, tingling or Arthritis Skin Skin: No dry skin, redness, lesions, itchy eyes, rash or wounds Neuro Neurology: No abnormal gait, abnormal hearing, abnormal speech, dizziness, weakness, frequent falls, headache(s), memory loss, numbness or tingling Psych Psychiatric: No anxiety, No change in appetite, No depression, No memory loss and No Thoughts of harming yourself/Others Endo Endocrine: No cold intolerance, excessive sweating, fatigue, flushing, heat intolerance, increased thirst/drinking, increased hunger or weight change Aller/Imm Allergy/Immunologic: No itchy eyes, seasonal allergy symptoms, hives or wheezing Ramiro/Lymp Hematologic/Lymphatic: No easy bleeding, easy bruising or enlarged lymph nodes Exam Const General: cooperative, no acute distress, well groomed and well hydrated Nutritional Appearance: well nourished Orientation: alert and oriented x3 HENMT Head: normal to inspection Ears: hearing grossly normal bilaterally Nose: external nose normal Face and sinus: normal facial exam Mouth: oral mucosae normal, lip normal and moist mucous membranes Eyes General: appearance normal, both eyes and all related structures Neck Neck: normal visual inspection Chest Chest palpation & inspection: normal inspection of the chest Resp Effort & Inspection: normal respiratory effort, able to speak in complete sentences and symmetric chest movement Cardio Pulses: dorsalis pedis present GI Inspection: normal to inspection Musc Musculoskeletal: No joint redness Other: Left heel with tenderness to lateral aspect of plantar surface with palpation. Pain with dorsiflexion. No pain with plantarflexion. Full range of motion of ankle without pain. No changes noted in skin colored no swelling to area. Skin General: no rashes or lesions noted Lesions: no lesions Rashes: no rashes Trauma: no lacerations or abrasions Wounds: no wounds Neuro General: patient alert, patient oriented x3 and deep tendon reflexes 2+ bilaterally Speech: speech normal Motor: muscle tone normal throughout Extrem General: normal to inspection and capillary refill normal Psych Appearance: grossly normal and well kempt Coding Level of Care Code Established Pt Off vis,est,level 2 Patient Type Established History Problem Focused Exam Problem Focused Diagnoses Pain of left heel M79.672 Time Spent (min) 25 Assessment and Plan Assessment and Plan (1) Pain of left heel: Status: Acute Plan: Will prescribe course of tapered prednisone. Also obtain x-ray of left foot to rule out bone spur versus plantar fasciitis Orders: Orders Foot min 3 Views Today M79.672 - Pain in left foot Medications: New prednisone see taper instructions Days 1-4 take 6 tabs daily days 5-8 take 4 tabs daily, days 9-12 take 2 tabs daily 10 mg PO DIRECTED 48 tabs 0RF Plan Details Goals & Barriers: Goals Decrease pain Decrease inflammation Improve intersegmental motion Barriers Sjogrens Obesity Follow Up: As needed 01/21/25 1322 <Electronically signed by Kati HARDENC> Date _ Kati Hilliard [employer]ER-C Jimier Signature: Date (if applicable) CC: ~ [facility] Work Phone: Reason for referral (narrative)No reason for referral information availableWTriHealth Work Phone: Summary Purpose Family History No [...] Will No July 28 10:25am Power of Construction Rep No July 28, 2021 10:25am Advance Directive Response Recorded Date/ Time Living Will No March 07 2 1:03pm Power of Construction Rep No March 07 022 1:03pm Advance Directive Response Recorded Date/ Time Living Will No March 07 2 12:03pm Power of Construction Rep No March 07 022 12:03pm Advance Directive Response Recorded Date/ Time Living Will No June 11 023 8:07am Power of Construction Rep No June 11, 2023 8:07am Advance Directive Response Recorded Date/ Time Living Will No June 11 023 9:07am Power of Construction Rep No June 11, 2023 9:07am Advance Directive Response Recorded Date/ Time Living Will No January 18, 2024 1 2:16pm Do you have a Healthcare Power of Construction Rep? No January 18, 2024 12:16pm Advance Directive Response Recorded Date/ Time Living Will No January 18, 2024 1 2:16pm Do you have a Healthcare Power of Construction Rep? No January 18, 2024 12:16pm Do you have a Healthcare Power of Construction Rep? No January 14, 2025 2:39pm Chief Complaint and Reason for Visit Chief [...] LABS AND XRAY Amb Documentation B12 Annual (VP SCIENTIFIC) Reason for Visit Back pain Hip pain Hypercalcemia Prediabetes Hypothyroidism Vitamin deficiency B12 deficiency Migraine headache without aura Urge incontinence B12 deficiency Obesity, morbid, BMI 50 or higher Urge incontinence Encounter for routine gynecological examination Chief Complaint 1 Y FU cold symptoms FOLLOW UP/MEDS B12 LABS AND XRAY Amb Documentation B12 Annual (VP SCIENTIFIC) b12 SCREENING LOCALIZED PARATHYROID ADENOMA Reason for Visit Hypercalcemia Prediabetes Hypothyroidism Vitamin deficiency B12 deficiency Migraine headache without aura Urge incontinence B12 deficiency Obesity, morbid, BMI 50 or higher Urge incontinence Encounter for routine gynecological examination B12 deficiency Chief Complaint 1 Y FU cold symptoms FOLLOW UP/MEDS B12 LABS AND XRAY Amb Documentation B12 Annual (VP SCIENTIFIC) b12 SCREENING LOCALIZED PARATHYROID ADENOMA HYPERPARATHYROIDISM Enlarged [...] LABS AND XRAY Amb Documentation B12 Annual (VP SCIENTIFIC) b12 SCREENING LOCALIZED PARATHYROID ADENOMA HYPERPARATHYROIDISM Enlarged [...] LABS AND XRAY Amb Documentation B12 Annual (VP SCIENTIFIC) b12 SCREENING LOCALIZED PARATHYROID ADENOMA HYPERPARATHYROIDISM Enlarged [...] LABS AND XRAY Amb Documentation B12 Annual (VP SCIENTIFIC) b12 SCREENING LOCALIZED PARATHYROID ADENOMA HYPERPARATHYROIDISM Enlarged [...] 6:57am Hypothyroidism January 07, 2025 11:2 6am Reason for Visit Admit Date Diabetes mellitus type 2, diet-controlle d October 23, 2024 4:43pm Anxiety and depression October 23, 2024 4 :43pm Hypertension Reyna 9th, 2025 4:43 pm KRISTOPHER (obstructive sleep apnea) October 23, 2024 4:43pm Constipation December 13, 2024 6:57a m GERD (gastroesophageal reflux disease) M 2024 6:57am Hyperparathyroidism January 07, 2025 11:2 6am Hypothyroidism January 07, 2025 11:2 6am GERD (gastroesophageal reflux disease) Padmini casillas 2024 5:26am Chief Complaint Admit Date 6 M FU October 23, 2024 4:43 pm RECTAL BLEEDING - COLONOSCOPY December 13, 2024 6:57am 13 M FU, Cx 12/13January 07, 2025 11:2 6am ACUTE LEFT HEEL PAIN January 21, 2025 12:3 4pm Reason for Visit Admit Date Diabetes mellitus type 2, diet-controlle d October 23, 2024 4:43pm Anxiety and depression October 23, 2024 4 :43pm Hypertension October 23, 2024 4:43 pm KRISTOPHER (obstructive sleep apnea) October 23, 2024 4:43pm Constipation December 13, 2024 6:57a m GERD (gastroesophageal reflux disease) ay 2024 6:57am Hyperparathyroidism January 07, 2025 11:2 6am Hypothyroidism January 07, 2025 11:2 6am GERD (gastroesophageal reflux disease) Padmini casillas 2024 5:26am Pain of left heel January 21, 2025 12:34 pm Chief Complaint Admit Date 6 M FU October 23, 2024 4:43 pm RECTAL BLEEDING - COLONOSCOPY December 13, 2024 6:57am 13 M FU, Cx 12/13January 07, 2025 11:2 6am ACUTE LEFT HEEL PAIN January 21, 2025 12:3 4pm pain- LEFT FOOT January 21, 2025 4:27p m Additional Source Comments INFORMATION SOURCE (unrecogn ized section and content) DATE CREATED AUTHOR 01/09/2018 [facility] DATE CREATED AUTHOR AUTHOR'S ORGANIZ ATION 09/14/2021 [facility] DATE CREATED AUTHOR AUTHOR'S ORGANIZ ATION 10/03/2021 [facility] DATE CREATED AUTHOR AUTHOR'S ORGANIZ ATION 02/01/2025 [facility] Care Teams (unrecognized sec tion and [...] Provider, Refer ring Provider Active Dirk Paula [employer] SAWYER, [employer]WYER-C Attending Provider Active Team Status: Active Member Role Status Dates Dr. Wyatt Marcelo MD Primary Care Provider Active Dirk Paula [employer]ER, [employer]ER-C Attending Provider Active Team Status: Inactive Member Role Status Dates Dr. Wyatt Marcelo MD Primary Care P rovider, Attending Provider, Referring Provider Active Team Status: Inactive Member Role Status Dates Dr. Wyatt Marcelo MD Primary Care Provider Active Dirk Paula [employer] SAWYER, [employer]WYER-C Attending Provider Active Team Status: Inactive Member Role Status Dates Dr. Wyatt Marcelo MD Primary Care Provider, Refer ring Provider Active Laine Coronado [employer], [employer]ER-C Attending Provider Active Team Status: Active Member [...] MD Primary Care Provider Active Laine Coronado [employer]ER, [employer]WYER-C Attending Provider Active Team Status: Inactive Member [...] MD Primary Care Provider Active Dirk Paula [employer]ER, [employer]ER-C Attending Provider, Referring Prov ider Active Team Status: Inactive Member Role Status Dates Dr. Wyatt Marcelo MD Primary Care Provider Active STEVEN BOLES MD Attending Provider Active Team Status: Inactive Member Role Status Dates Dr. Wyatt Marcelo MD Primary Care Provider Active Dirk Paula [employer], [employer]ER-C Attending Provider, Referring Prov ider Active Team [...] Primary Care Provider, Refer ring Provider Active Liliana Bangura NP-C Attending Provider Active Team Status: Inactive Member [...] MD Primary Care Provider Active Liliana Bangura [employer]-C Attending Provider, Referring Pro vider Active Team Status: Inactive Member Role Status Dates Dr. Wyatt Marcelo MD Primary Care Provider Active Liliana Bangura [employer]-C Attending Provider, Referring Pro vider Active Team [...] January 07, 2025 End: January 07, 2025 Team Status: Active Member Role/Relationship Status Dates Dr. Wyatt Marcelo MD Primary Care Provider Active Team Status: Inactive Member Role/Relationship Status Dates Dr. Wyatt Marcelo MD Primary Care Provider Active Start: October 10, 2024 End: October 10, 2024 Dr. Wyatt Marcelo MD Attending Provider Active Start: October 10, 2024 End: October 10, 2024 Dr. Wyatt Marcelo MD Referring Provider Active Start: October 10, 2024 End: October 10, 2024 Team Status: Inactive Member Role/Relationship Status Dates Dr. Wyatt Marcelo MD Primary Care Provider Active Start: October 23, 2024 End: October 23, 2024 Dr. Wyatt Marcelo MD Attending Provider Active Start: October 23, 2024 End: October 23, 2024 Dr. Wyatt Marcelo MD Referring Provider Active Start: October 23, 2024 End: October 23, 2024 Team Status: Inactive Member Role/Relationship Status Dates Dr. Wyatt Marcelo MD Primary Care Provider Active Start: November 07, 2024 End: November 07, 2024 STEVEN BOLES MD Attending Provider Active S tart: November 07, 2024 End: November 07, 2024 STEVEN BOLES MD Referring Provider Active S tart: November 07, 2024 End: November 07, 2024 Team Status: Inactive Member Role/Relationship Status Dates Dr. Wyatt Marcelo MD Referring Provider Active Start: December 13, 2024 End: December 13, 2024 ISIDRA Champagne Attending Provider Active Start: December 13, 2024 End: December 13, 2024 Team Status: Inactive Member Role/Relationship Status Dates Dr. Wyatt Marcelo MD Primary Care Provider Active Start: January 07, 2025 End: January 07, 2025 Dr. Wyatt Marcelo MD Referring Provider Active Start: January 07, 2025 End: January 07, 2025 Dr. Cali Lou MD Attending Provider Active Sta rt: January 07, 2025 End: January 07, 2025 Team Status: Inactive Member Role/Relationship Status Dates Dr. Hammad Loaiza DO Attending Provider Active Start: January 16, 2025 End: January 16, 2025 Dr. Wyatt Marcelo MD Primary Care Provider Active Start: January 16, 2025 End: January 16, 2025 Dr. Wyatt Marcelo MD Referring Provider Active Start: January 16, 2025 End: January 16, 2025 Team Status: Active Member Role/Relationship Status Dates Dr. Hammad Loaiza DO Attending Provider Active Start: January 16, 2025 Dr. Hammad Loaiza DO Other Provider Active St art: January 16, 2025 Dr. Wyatt Marcelo MD Primary Care Provider Active Start: January 16, 2025 Dr. Wyatt Marcelo MD Referring Provider Active Start: January 16, 2025 Team Status: Inactive Member Role/Relationship Status Dates Dr. Wyatt Marcelo MD Primary Care Provider Active Start: January 21, 2025 End: January 21, 2025 Dr. Wyatt Marcelo MD Referring Provider Active Start: January 21, 2025 End: January 21, 2025 Kati Hilliard NP-[place] Attending Provider Active Start: January 21, 2025 End: January 21, 2025 Team Status: Inactive Member Role/Relationship Status Dates Dr. Wyatt Marcelo MD Primary Care Provider Active Start: January 21, 2025 End: January 21, 2025 Kati Hilliard NP-C Attending Provider Active Start: January 21, 2025 End: January 21, 2025 Kati Hilliard NP-C Referring Provider Active Start: January 21, 2025 End: January 21, 2025 FOR RECORDS PERTAINING TO PATIENTS WHO [...] BE BASED ON THE PRIMARY CLINICAL RECORDS. [facility] [employer] provides no warranty or guarantee of the accuracy or completeness of information in this document.
[2025-02-01 11:56] LABS: 24 HR UR COLLECTION TIME 24.0 HR (24.0-24.0); 24HR UR TOTAL VOLUME 2320 ml; Calcium Urine pH Range 1
[2025-02-01 12:21] LABS: (24 HR) Urine Calcium 355.0 mg/24 HR (42.0-353.0)
== END | disposition home or self-care (01) ==
LOC: LABSPEC 10:50
PROVIDERS: PCP Internal Medicine; Referring Provider Internal Medicine Endocrinology, Diabetes & Metabolism; Visit Provider Internal Medicine Endocrinology, Diabetes & Metabolism
DX: E03.8 Other specified hypothyroidism (principal); E06.3 Autoimmune thyroiditis; E21.3 Hyperparathyroidism, unspecified
CPT/HCPCS: 81050; 82340

== ENCOUNTER → 2025-02-09 | Outpatient (CLI) | payer OTHER, SELFPAY ==
--- OUTSIDE RECORDS SUMMARY | 2025-02-09 08:16 | XMS RPT_ITS | CCD ---
Author Organization [facility] Care Team Providers Care Day Light Relief Operator Name Role Phone ANTONIO, CHRISTOPHER R Unavailable Unavailabl e ANTONIO, CHRISTOPHER R Unavailable Unavailabl e NO REFERRING DR Unavailable Unavailable ANTONIO, CHRISTOPHER R Unavailable Unavailabl e ANTONIO, CHRISTOPHER R Unavailable Unavailabl e NO REFERRING DR Unavailable Unavailable ANTONIO, CHRISTOPHER R Unavailable Unavailabl e NO REFERRING DR Unavailable Unavailable SLAVA BEYER Unavailable Unavailable SLAVA BEYER Unavailable Unavailable NO REFERRING DR Unavailable Unavailable SLAVA BEYER L Unavailable Unavailable PEPITOSLAVA PERRY L Unavailable Unavailable [facility] Unavailable Unavailable [facility] Unavailable [...] Provider [phone] ISIDRA Herman Attending Provider UnavailDr. Wyatt Romero Primary Care Provider [phone] Dr. Wyatt Marcelo Referring Provider [phone] ISIDRA Saeed Attending Provider Dr. Wyatt Marcelo Primary Care Provider [phone]) Dr. Wyatt Marcelo Referring Provider [phone] Dr. Wyatt Marcelo Primary Care Provider [phone] Dr. Wyatt Marcelo Referring Provider [phone] ISIDRA Herman Attending Provider UnavailDr. Wyatt Romero Primary Care Provider [phone] Dr. Wyatt Marcelo Referring Provider [phone] ISIDRA Herman Attending Provider Dr. Cali Amador Attending Provider Paula BAG MACHINE HELPER, BAG MACHINE HELPER-C Dirk Attending Provider [phone] Dr. Wyatt Marcelo Attending Provider [phone] Candice Lopez Attending Provider Unavailable Ivonne BAG MACHINE HELPER, BAG MACHINE HELPER-C Laine Attending Provider [phone] Dr. Wyatt Marcelo Primary Care Provider [phone]) Dr. Wyatt Marcelo Referring Provider [phone] Dr. Juan R Arredondo Attending Provider Dr. Cali Lou Referring Provider Dr. Wyatt Marcelo Primary Care Provider [phone] 0) Dr. Wyatt Marcelo Referring Provider [phone] Dr. Wyatt Marcelo Primary Care Provider [phone] 0) Dr. Wyatt Marcelo Referring Provider [phone] Nisa BAG MACHINE HELPER, BAG MACHINE HELPER-C Dirk Attending Provider [phone]) Dr. Geovanni Mendiola Attending Provider Dr. Wyatt Marcelo Primary Care Provider [phone] 0) Dr. Wyatt Marcelo Attending Provider [phone] Dr. Wytat Marcelo Referring Provider [phone] SCOTT Meyer Attending Provider Unavailable Dr. Wyatt Marcelo Primary Care Provider [phone] [phone]) Dr. Wyatt Marcelo Attending Provider Davian, Dr. Schneider Referring Provider [phone] Davian, Dr. Schneider Primary Care Provider [phone] [phone]) Davian, Dr. Schneider Referring Provider [phone] Davian, Dr. Schneider Attending Provider [phone] Dr. Gay Koenig Attending Provider [phone]) Olemai, Dr. Schneider Primary Care Provider [phone] 0) SCOTT Meyer Attending Provider Unavailable Davian, Dr. Schneider Attending Provider [phone] Davian, Dr. Schneider Referring Provider [phone] [place], Dr. Rashid Attending Provider [phone]) Davian, Dr. Schneider Primary Care Provider 1(33 0) Davian, Dr. Schneider Primary Care Provider [phone] 0) Davian, Dr. Schneider Referring Provider [phone] ZAFAR Bangura Attending Provider [phone] ISIDRA Yuan Attending Provider Davian CAMILO, Dr. Schneider Primary Care Provider Nimco Medina Attending Provider [phone] Nimco Medina Referring Provider [phone] STEVEN BOLES MD Attending Provider STEVEN BOLES MD Referring Provider Dr. Wyatt Marcelo MD Referring Provider [phone]) Dominick MERRITT-CCorie Attending Provider Davian CAMILO, Dr. Schneider Attending Provider [phone] Davian CAMILO, Dr. Schneider Primary Care Provider Davian CAMILO, Dr. Efewongbe Primary Care Provider RAMANA CAMILO, STEVEN Attending Provider RAMANA CAMILO, STEVEN Referring Provider [phone] Irma Valentin Attending Provider Davian CAMILO, Dr. Schneider Primary Care Provider Davian CAMILO, Dr. Schneider Referring Provider [phone] King LESLEE, Dr. Leiva Attending Provider Fadia GRIMES, Dr. Cueva Attending Provider Fadia GRIMES, Dr. Cueva Other Provider Ungerer BAG MACHINE HELPER-C, Kati Attending Provider [phone] Ungerer BAG MACHINE HELPER-C, Kati Referring Provider [phone] King LESLEE, Dr. Leiva Referring Provider [phone] Florencia CAMILO, Dr. Hernandez Attending Provider Oleghe, Efewongbe Referring Unavailable Oleghe, Efewongbe Attending Unavailable Oleghe, Efewongbe Primary Care Unavailable Lisa, Nimco Attending Unavailable Lisa, Nimco Referring Unavailable Oleghe, Efewongbe Primary Care Unavailable BILAVELLEWSKI STEVEN Referring Unavailable BIELAWSKIGTN Attending Unavailable Oleghe, Efewongbe Primary Care Unavailable Lisa, Nimco Referring Unavailable Lisa, Nimco Attending Unavailable Oleghe, Efewongbe Primary Care Unavailable BIELAWSKI STEVEN Referring Unavailable BIELAWSKIGTN Attending Unavailable Oleghe, Efewongbe Primary Care Unavailable Lisa, Nimco Attending Unavailable Oleghe, Efewongbe Primary Care Unavailable Oleghe, Efewongbe Referring Unavailable Oleghe, Efewongbe Primary Care Unavailable Ungerer, Kati Attending Unavailable Oleghe, Efewongbe Referring Unavailable Carmine, Cali Referring Unavailable Cali Lou Attending Unavailable Oleghe, Efewongbe Primary Care Unavailable Hammad Loaiza Attending Unavailable Oleghe, Efewongbe Primary Care Unavailable Oleghe, Efewongbe Referring Unavailable Oleghe, Efewongbe Primary Care Unavailable Ungerer, Kati Referring Unavailable Ungerer, Kati Attending Unavailable Lisa, Nimco Attending Unavailable Lisa, Nimco Referring Unavailable Oleghe, Efewongbe Primary Care Unavailable Assessment, Health Risk Referring Unavaila ble Assessment, Health Risk Attending Unavaila ble Oleghe, Efewongbe Primary Care Unavailable BIELAWSKI, STEVEN Referring Unavailable BIAMY STEVEN Attending Unavailable Oleghe, Efewongbe Primary Care Unavailable Cali Lou Attending Unavailable Oleghe, Efewongbe Primary Care Unavailable Oleghe, Efewongbe Referring Unavailable Oleghe, Efewongbe Attending Unavailable Oleghe, Efewongbe Primary Care Unavailable Oleghe, Efewongbe Referring Unavailable Oleghe, Efewongbe Primary Care Unavailable Corie Tan Attending Unavailable Oleghe, Efewongbe Attending Unavailable Oleghe, Efewongbe Primary Care Unavailable Oleghe, Efewongbe Referring Unavailable Anjaliman Estrellita Referring Unavailable BarkEstrellita mckeon Attending Unavailable Oleghe, Efewongbe Primary Care Unavailable Barkman Estrellita Referring Unavailable BarkmanMichaelEstrellita Attending Unavailable Oleghe, Efewongbe Primary Care Unavailable Lisa, Nimco Referring Unavailable Lisa Nimco Attending Unavailable Oleghe, Efewongbe Primary Care Unavailable Oleghe, Efewongbe Referring Unavailable Barkman Estrellita Attending Unavailable Oleghe, Efewongbe Primary Care Unavailable Oleghe, Efewongbe Primary Care Unavailable Cali Lou Attending Unavailable Oleghe, Efewongbe Referring Unavailable Irma Delaney Attending Unavailable Oleghe, Efewongbe Referring Unavailable Oleghe, Efewongbe Attending Unavailable Oleghe, Efewongbe Primary Care Unavailable Karl Lopez Attending Unavailable Oleghe, Efewongbe Primary Care Unavailable Oleghe, Efewongbe Referring Unavailable Hammad Loaiza Attending Unavailable Friend, Hammad Consulting Unavailable Oleghe, Efewongbe Primary Care Unavailable Oleghe, Efewongbe Referring Unavailable Oleghe, Efewongbe Primary Care Unavailable NORAH ALMANZA Attending Unavailable Allergies Allergy Classification Reported Allergen(s) Allergy Type Date of Onset Reaction(s) Facility (20 sources) escitalopram; Translations: [ESCITALOPRAM] Drug Allergy 2 Other [facility] Rep[facility] Comment on above: HEADACHE (1 source) penicillin; Translations: [PENICILLIN] Drug Allergy [facility]ository (1 source) Penicillins; Translations: [PENICILLINS] Propensity to adverse reactions (disorder) [facility] Repository (20 sources) Latex Allergy to substance 2 Rash [facility] (20 sources) Penicillin G Drug Allergy 2 Other [facility] (14 sources) SUMAtriptan Drug Allergy 3 headache [facility] (1 source) Latex Drug allergy (disorder) 5 [facility] Rep[facility] (1 source) Penicillin Drug Allergy 5 [facility] (1 source) SUMAtriptan Drug Allergy 5 [facility] Medications Current Medications Medication [...] Insulin Syring e Needleless Active 0 .Route 20 October 10, 2023 12:00am As directed mecobalamin 1 mg chewable tablet (9 sources) Start: 11-14-2023 take 1 tablet by mouth once daily Mecobalamin (Vitamin B12) 1,000 mcg tablet,chewable Active 1000 ug PO DAILY November 14, 2023 12:00am melatonin 3 mg oral capsule (9 sources) Start: 11-14-2023 take 1 capsule by mouth at bedtime Melatonin 3 mg capsule Active 3 mg PO BEDTIME November 14, 2023 12:00am Methotrexate 2 mg/mL solution (9 sources) Start: 08-31-2024 Methotrexate 2 mg/mL solution [...] upadacitinib 15 mg extended release oral tablet (9 sources) Start: 11-14-2023 take 1 tablet by [...] 21, 2018 1:00am June 26, 2018 1:09am [id number] 200 actuat albuterol 0.09 mg/actuat metered dose [...] TWICE A DAY 540 90 0 November 23, 2021 9:19am February 20, 2022 [...] PO TWICE A DAY 540 90 November 22, 2021 12:00am February 19, 2022 12:00am November 23, 2021 9:20am administer before lunch and evening meal/dinner Start: 11-22-2021 End: 11-23-2021 Carboxymethylcellulose-Citri c (Plenity) 0.75 gram capsule Discontinued 3 CAP PO TWICE A DAY 540 90 November 21, 2021 11:00pm November 23, 2021 8:20am administer before lunch and evening meal/dinner Start: 11-22-2021 End: 11-23-2021 Carboxymethylcellulose-Citri c (Plenity) 0.75 gram capsule Discontinued 3 CAP PO TWICE A DAY 540 90 November 22, 2021 12:00am November 23, 2021 9:20am administer before lunch and evening meal/dinner cefuroxime 500 mg oral tablet (20 sources) Cephalosporin Antibacterial Start: 12-05-2022 End: 03-10-2023 [...] March 31, 2020 1:22pm Compress.Stocking,Knee,Reg,L rg misc (9 sources) Start: 03-12-2019 End: 12-05-2022 Compress.Stocking,Knee,Reg,L rg [...] mmHg cyclobenzaprine hydrochloride 5 mg oral tablet (15 sources) Muscle Relaxant Start: 04-26-2023 End: 11-14-2023 [...] release(DR/EC) Discontinued 60 mg PO daily 90 June 10, 2024 5:31pm December 03, 2024 [...] 2021 12:00am December 15, 2023 8:49am Start: 10-21-2021 take 2 mg by mouth once daily [...] tablet Discontinued 12.5 mg PO EVERY MORNING 90 October 08, 2021 12:00am November 22, 2021 8:52am hydroxychloroquine sulfate 200 mg oral tablet (20 sources) Antimalarial, Antirheumatic Agent Start: 08-20-2020 End: 10-19-2022 take 1 tablet by mouth twice daily Hydroxychloroquine (Plaquenil) 200 mg tablet Discontinued 200 mg PO TWICE A DAY August 20, 2020 1:00am October 19, 2022 1:58pm Insulin Syringe Needleless 1 mL syringe (9 sources) Start: 10-10-2023 End: 03-20-2024 Insulin Syringe Needleless 1 mL syringe Discontinued 0 .Route 20 October 10, 2023 12:00am March 20, 2024 9:38am As directed Start: 10-10-2023 End: 03-20-2024 Insulin Syringe Needleless 1 mL syringe Discontinued 0 .Route October 10, 2023 12:00am March 20, 2024 9:38am As directed levothyroxine sodium 0.15 mg oral tablet (20 sources) l-Thyroxine Start: 11-14-2023 End: 01-30-2025 take 1 tablet by mouth every other week Levothyroxine 150 mcg tablet Discontinued 150 ug PO .5 days per week October 15, 2024 4:47pm January 14, 2025 2:39pm Start: 08-19-2021 End: 11-14-2023 take 1 tablet by mouth once daily Levothyroxine 150 mcg tablet Discontinued 150 ug PO DAILY 90 August 15, 2022 12:51pm November 14, 2023 9:53am Start: 04-30-2018 End: 08-19-2021 take 1 tablet by mouth once daily Levothyroxine 75 mcg tablet Discontinued 75 ug PO DAILY 90 January 12, 2021 11:16am August 19, 2021 [...] hydrochloride 500 mg extended release oral tablet (7 sources) Biguanide Start: 11-29-2024 End: 01-14-2025 take [...] PKG DIR metroNIDAZOLE 500 mg oral tablet (20 sources) Nitroimidazole Antimicrobial Start: 12-05-2022 End: 03-10-2023 take 1 tablet by mouth three times daily Metronidazole 500 mg tablet Discontinued 500 mg PO THREE TIMES A DAY December 05, 2022 12:00am March 10, 2023 4:02pm mupirocin 0.02 mg/mg topical ointment (20 sources) RNA Synthetase Inhibitor Antibacterial Start: 09-29-2022 End: 10-19-2022 Mupirocin 2 % ointment Discontinued 1 NMA TOPICAL NEEDED as needed for Rash 05 10September 29, 2022 9:23am October 19, 2022 1:58pm Start: 10-26-2020 End: 10-19-2022 Mupirocin 2 % ointment Disco ntinued 1 NMA TOPICAL NEEDED as needed for Rash May 06, 2021 11:33am September 29, 2022 9:25am ondansetron 4 mg disintegrating oral tablet (14 sources) Serotonin-3 Receptor Antagonist Start: 06-11-2023 End: [...] after breakfast BMI 50 polyethylene glycol 3350 32499 mg powder for oral solution (20 sources) [...] 03, 2023 9:03am for 4 weeks Semaglutide (12 sources) Start: 10-03-2023 End: 10-03-2023 Semaglutide 0.25 [...] 9:43am for 4 weeks Semaglutide (Weight Loss) (12 sources) Start: 10-03-2023 End: 03-20-2024 Semaglutide (Weight [...] m g (2 mg/3 mL) pen injector (9 sources) Start: 10-03-2023 End: 10-03-2023 Semaglutide 0.25 [...] 2 hours after meals Tirzepatide (Weight Loss) (17 sources) Start: 10-23-2024 End: 01-07-2025 Tirzepatide (Weight [...] 21, 2019 12:00pm Vitamin B Complex capsule (9 sources) Start: 09-14-2017 End: 02-21-2019 Vitamin B [...] diseases of gallbladder] 06-21-2018 Episodic Cardiac dysrhythmias (20 sources) Palpitations; Translations: [Palpitations] 03-10-2023 Episodic Deficiency and other anemia (20 sources) Anemia; Translations: [Anemia, unspecified] 02-21-2019 Episodic Diabetes mellitus without complication (18 sources) Type 2 diabetes mellitus controlled by diet; Translations: [Type 2 diabetes mellitus without complications] Onset: 5 10-11-2024 Chronic Diseases of white blood cells (2 sources) Leukocytosis; Translations: [Elevated white blood cell count, unspecified] 01-29-2025 Chronic E Codes: Natural/environment (20 sources) Cat [...] D, iron, B12 Open wounds of extremities (9 sources) Laceration of finger; Translations: [Laceration without foreign body of unspecified finger without damage to nail, initial encounter] 01-26-2024 Episodic Osteoarthritis (20 sources) Arthritis; Translations: [Unspecified osteoarthritis, unspecified site] 02-21-2019 Chronic Other acquired deformities (9 sources) Lumbar spondylolisthesis; Translations: [Spondylolisthesis, lumbar region] 05-10-2024 Episodic Other acquired deformities (9 sources) Spondylolysis; Translations: [Spondylolysis, lumbar region] 05-10-2024 [...] in limb] Episodic Other connective tissue disease (8 sources) Heel pain; Translations: [Pain in left foot] 01-21-2025 Episodic Other connective tissue disease (1 source) Pain in left foot; Translations: [Pain in left foot] Onset: Episodic Other endocrine disorders (20 sources) Primary hyperparathyroidism; Translations: [Primary hyperparathyroidism] 11-03-2022 Chronic Other endocrine disorders (8 sources) Primary hyperparathyroidism; Translations: [Primary hyperparathyroidism] Onset: 4 11-23-2022 Chronic Other endocrine disorders (11 sources) Hyperparathyroidism; Translations: [Hyperparathyroidism, unspecified] 01-07-2025 Chronic [...] limb] 12-16-2019 Chronic Other nervous system disorders (12 sources) Carpal tunnel syndrome of right wrist; [...] calories] 10-19-2022 Chronic Comment on above: restarted WW. 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; Translations: [Other jail (current) drug therapy] Onset: 04-23-2024 Episodic Other [...] Test Name Value Interpretation Reference Range Facility 24 hour urine specimen volum e measurementOrdered By: Cali Lou on 02-01-2025 Specimen volume (24H U) 2.32 L [facility] Calcium [Mass/time] in 24 ho ur UrineOrdered By: Cali Lou on 02-01-2025 Calcium (24H U) [Mass/Time] 355.0 mg/24 HR High 42.0-353.0 [facility] Calcium, Urine 24HRon 2024 24HR UR Calcium 355.0 mg/24 HR High 42.0-353.0 [facility] Comment on above: Performed By: #### L 506.0400, L501.9520 #### [facility] [address] [place], [address] Urine Calcium 15.3 mg/dL Normal Not Estab. [facility] Comment on above: Performed By: #### L 506.0400, L501.9520 #### [facility] [address] [place], [address] Calcium UR pH 1 Normal [facility] Comment on above: Performed By: #### L 506.0400, [id number] #### [facility] [address] [place], [address] UR Collect Time 24.0 HR Normal 24.0-24.0 [facility] Comment on above: Performed By: #### L 506.0400, L501.9520 #### [facility] [address] [place], [address] UR Total Volume 2320 ml Normal [facility] Comment on above: Performed By: #### L 506.0400, L501.9520 #### [facility] [address] [place], [address] Laboratory - Chemistry and C hemistry - challengeOrdered By: Cali Lou on 02-01-2025 pH (U) 1 [pH] [facility] - Specimen inform ationOrdered By: Cali Lou on 02-01-2025 Collection time (Gia) [Date/time] 24.0 HR 24.0-24.0 [facility] Urine calcium measurement (m ass/volume)Ordered By: Cali Lou on 02-01-2025 Calcium (U) [Mass/Vol] 15.3 mg/dL Not Estab. [facility] L501.0895on 01-30-2025 Calcium [Mass/Vol] 10.2 mg/dL Normal 7.6-11.0 [facility] Comment on above: Performed By: #### L 501.99 #### [facility] [address] [place], [place], [address] Serum or plasma calcium sancho urement (mass/volume)Ordered By: Cali Lou on 01-30-2025 Calcium [Mass/Vol] 10.2 mg/dL 7.6-11.0 [facility] Absolute lymphocyte countOrd ered By: Cali Lou on 01-28-2025 Lymphocytes Auto (Unsp spec) [#/Vol] 0.91 10*3/uL 0.83-4.51 [facility] Absolute neutrophil countOrd ered By: Cali Lou on 01-28-2025 Neutrophils (Bld) [#/Vol] 12.5 10*3/uL High 2.0-7.7 [facility] Automated lymphocyte count a s percentage of total leukocytesOrdered By: Cali Lou on 01-28-2025 Lymphocytes/100 WBC Auto (Unsp spec) 6.6 % Low 19-41 [facility] Basophil percentageOrdered B y: Cali Lou on 01-28-2025 Basophils/100 WBC (Bld) 0.1 % 0-1 [facility] Bilirubin directOrdered By: Cali Lou on 01-28-2025 Bilirubin.direct [Mass/Vol] 0.18 mg/dL 0.00-0.30 [facility] Bilirubin, totalOrdered By: Cali Lou on 01-28-2025 Bilirubin [Mass/Vol] 0.49 mg/dL 0.00-1.30 [facility] CBC W/Diff, Automatedon 01-14 Absolute Lymph 0.91 X10 3/uL Normal 0.83-4.51 [facility] Comment on above: Performed By: #### L 506.1001, L101.9900, L501.6710, L500.3400, L509.1000, L100.0100, L501.1105 #### [facility] [address] [place], [address] Absolute Neut 12.5 X10 3/uL High 2.0-7.7 [facility] Comment on above: Performed By: #### L 506.1001, L101.9900, L501.6710, L500.3400, L509.1000, L100.0100, L501.1105 #### [facility] [address] [place], [address] Basophils/100 WBC (Bld) 0.1 % Normal 0-1 [facility] Comment on above: Performed By: #### L 506.1001, L101.9900, L501.6710, L500.3400, L509.1000, L100.0100, L501.1105 #### [facility] [address] [place], [address] Eosinophils/100 WBC (Bld) 0.0 % Normal 0-5 [facility] Comment on above: Performed By: #### L 506.1001, L101.9900, L501.6710, L500.3400, L509.1000, L100.0100, L501.1105 #### [facility] [address] [place], [address] Erythrocyte distribution width (RBC) [Ratio] 13.5 % Normal 11.6-14.6 [facility] Comment on above: Performed By: #### L 506.1001, L101.9900, L501.6710, L500.3400, L509.1000, L100.0100, L501.1105 #### [facility] [address] [place], [address] Hematocrit (Bld) [Volume fraction] 39.6 % Normal 37-47 [facility] Comment on above: Performed By: #### L 506.1001, L101.9900, L501.6710, L500.3400, L509.1000, L100.0100, L501.1105 #### [facility] [address] [place], [address] Hemoglobin (Bld) [Mass/Vol] 12.9 g/dL Normal 12.0-15.0 [facility] Comment on above: Performed By: #### L 506.1001, L101.9900, L501.6710, L500.3400, L509.1000, L100.0100, L501.1105 #### [facility] [address] [place], [address] IG% 0.500 Normal 0.0-0.9 [facility] Comment on above: Result Comment: IG% - Immature Granulocytes (promyelocytes, myelocytes and metamyelocytes) > 1% indicates that a LEFT SHIFT is Present. Performed By: #### L 506.1001, L101.9900, L501.6710, L500.3400, L509.1000, L100.0100, L501.1105 #### [facility] [address] [facility] [place], [address] Lymphocytes/100 WBC (Bld) 6.6 % Low 19-41 [facility] Comment on above: Performed By: #### L 506.1001, L101.9900, L501.6710, L500.3400, L509.1000, L100.0100, L501.1105 #### [facility] [address] [place], [address] MCH (RBC) [Entitic mass] 31.1 pg Normal 27.0-32.0 [facility] Comment on above: Performed By: #### L 506.1001, L101.9900, L501.6710, L500.3400, L509.1000, L100.0100, L501.1105 #### [facility] [address] [place], [address] MCHC (RBC) [Mass/Vol] 32.6 g/dL Normal 32-36 [facility] Comment on above: Performed By: #### L 506.1001, L101.9900, L501.6710, L500.3400, L509.1000, L100.0100, L501.1105 #### [facility] [address] [place], [address] MCV (RBC) [Entitic vol] 95.4 fL Normal 81-99 [facility] Comment on above: Performed By: #### L 506.1001, L101.9900, L501.6710, L500.3400, L509.1000, L100.0100, L501.1105 #### [facility] [address] [place], [address] Monocytes/100 WBC (Bld) 2.1 % Normal 0-10 [facility] Comment on above: Performed By: #### L 506.1001, L101.9900, L501.6710, L500.3400, L509.1000, L100.0100, L501.1105 #### [facility] [address] [place], [address] Neutrophils/100 WBC (Bld) 90.7 % High 47-70 [facility] Comment on above: Performed By: #### L 506.1001, L101.9900, L501.6710, L500.3400, L509.1000, L100.0100, L501.1105 #### [facility] [address] [place], [address] Nucleated RBC (Bld) [#/Vol] 0 10*3/uL Normal 0-5 [facility] Comment on above: Performed By: #### L 506.1001, L101.9900, L501.6710, L500.3400, L509.1000, L100.0100, L501.1105 #### [facility] Laboratory [address] [place], [address] Platelet mean volume (Bld) [Entitic vol] 9.5 fL Normal 6.2-12.0 [facility] Comment on above: Performed By: #### L 506.1001, L101.9900, L501.6710, L500.3400, L509.1000, L100.0100, L501.1105 #### [facility] Laboratory [address] [place], [address] Platelets (Bld) [#/Vol] 407 10*3/uL Normal 150-450 [facility] Comment on above: Performed By: #### L 506.1001, L101.9900, L501.6710, L500.3400, L509.1000, L100.0100, L501.1105 #### [facility] [address] [place], [address] RBC (Bld) [#/Vol] 4.15 10*6/uL Low 4.2-5.4 [facility] Comment on above: Performed By: #### L 506.1001, L101.9900, L501.6710, L500.3400, L509.1000, L100.0100, L501.1105 #### [facility] Laboratory [address] [place], [address] RDW SD 47.7 fl High 35.1-43.9 [facility] Comment on above: Performed By: #### L 506.1001, L101.9900, L501.6710, L500.3400, L509.1000, L100.0100, L501.1105 #### [facility] [address] [place], [address] WBC (Bld) [#/Vol] 13.8 10*3/uL High 4.4-11.0 [facility] Comment on above: Performed By: #### L 506.1001, L101.9900, L501.6710, L500.3400, L509.1000, L100.0100, L501.1105 #### [facility] [address] [place], [place], [id number] CRPon 01-28-2025 C-REACTIVE PROT 9.59 mg/L High 0.0-3.0 [facility] Comment on above: Order Comment: DR. Ministerio BIANCHI GETS RESULTS FOR CRP ESR LIVER CBCDCREATININE DR. LOU GETS RESULTS FOR VITD AND PTH Performed By: #### L 501.9985 #### [facility] [address] [place], [place], [id number] Eosinophil percentageOrdered By: Cali Lou on 01-28-2025 Eosinophils/100 WBC (Bld) 0.0 % 0-5 [facility] Erythrocyte Sed Rateon 01-28 SED RATE 21 mm/hr Normal 0-30 [facility] Comment on above: Performed By: #### L 506.1001, L101.9900, L501.6710, L500.3400, L509.1000, L100.0100, L501.1105 #### [facility] Laboratory [address] [place], [place], [id number] Erythrocyte distribution wid th ratioOrdered By: Cali Lou on 01-28-2025 Erythrocyte distribution width (RBC) [Ratio] 13.5 % 11.6-14.6 [facility] Erythrocyte distribution wid th standard deviationOrdered By: Cali Lou on 01-28-2025 Erythrocyte distribution width (RBC) [Ratio] 47.7 fl High 35.1-43.9 [facility] Erythrocyte sedimentation ra teOrdered By: Cali Lou on 01-28-2025 ESR (Bld) [Velocity] 21 mm/h 0-30 [facility] Glomerular filtration rate ( GFR) estimation/1.73 sq m using serum, plasma, or whole bOrdered By: Cali Lou on 01-28-2025 GFR/1.73 sq M.predicted among non-blacks MDRD (S/P/Bld) [Vol rate/Area] 72 mL/min/{1.73_m2} >60 [facility] Comment on above: mL/min/1.73m2 CKD-EP I Creatinine Equation (2020) Hematocrit Auto (Bld) [Volum e fraction]Ordered By: Cali Lou on 01-28-2025 Hematocrit (Bld) [Volume fraction] 39.6 % 37-47 [facility] Hemoglobin measurementOrdere d By: Cali Lou on 01-28-2025 Hemoglobin (Bld) [Mass/Vol] 12.9 g/dL 12.0-15.0 [facility] Immature granulocytes/100 WB C Auto (Bld)Ordered By: Cali Lou on 01-28-2025 Immature granulocytes/100 WBC (Bld) 0.500 % 0.0-0.9 [facility] Comment on above: IG% - Immature Granu locytes (promyelocytes, myelocytes and metamyelocytes) > 1% indicates that a LEFT SHIFT is Present. Laboratory - Chemistry and C hemistry - challengeOrdered By: Cali Lou on 01-28-2025 AST [Catalytic activity/Vol] 17 U/L <32 [facility] Liver Profileon 01-28-2025 Albumin [Mass/Vol] 4.4 g/dL Normal 3.5-5.0 [facility] Comment on above: Order Comment: DR. Ministerio BIANCHI GETS RESULTS FOR CRP ESR LIVER CBCD CREATININE DR. LOU GETS RESULTS FOR VITD AND PTH Performed By: #### L 506.1001, L101.9900, L501.6710, L500.3400, L509.1000, L100.0100, L501.1105 #### [facility] [address] [place], [address] ALK PHOS 65 U/L Normal 35-104 [facility] Comment on above: Order Comment: DR. Ministerio BIANCHI GETS RESULTS FOR CRP ESR LIVER CBCD CREATININE DR. LOU GETS RESULTS FOR VITD AND PTH Performed By: #### L 506.1001, L101.9900, L501.6710, L500.3400, L509.1000, L100.0100, L501.1105 #### [facility] [address] [place], [address] ALT [Catalytic activity/Vol] 16 U/L Normal <=34 [facility] Comment on above: Order Comment: DR. Ministerio BIANCHI GETS RESULTS FOR CRP ESR LIVER CBCD CREATININE DR. LOU GETS RESULTS FOR VITD AND PTH Performed By: #### L 506.1001, L101.9900, L501.6710, L500.3400, L509.1000, L100.0100, L501.1105 #### [facility] [address] [place], [address] AST [Catalytic activity/Vol] 17 U/L Normal <=31 [facility] Comment on above: Order Comment: DR. Ministerio BIANCHI GETS RESULTS FOR CRP ESR LIVER CBCD CREATININE DR. LOU GETS RESULTS FOR VITD AND PTH Performed By: #### L 506.1001, L101.9900, L501.6710, L500.3400, L509.1000, L100.0100, L501.1105 #### [facility] [address] [place], [address] Bilirubin [Mass/Vol] 0.49 mg/dL Normal 0.00-1.30 [facility] Comment on above: Order Comment: DR. Ministerio BIANCHI GETS RESULTS FOR CRP ESR LIVER CBCD CREATININE DR. LOU GETS RESULTS FOR VITD AND PTH Performed By: #### L 506.1001, L101.9900, L501.6710, L500.3400, L509.1000, L100.0100, L501.1105 #### [facility] [address] [place], [address] Bilirubin.direct [Mass/Vol] 0.18 mg/dL Normal 0.00-0.30 [facility] Comment on above: Order Comment: DR. Ministerio BIANCHI GETS RESULTS FOR CRP ESR LIVER CBCD CREATININE DR. LOU GETS RESULTS FOR VITD AND PTH Performed By: #### L 506.1001, L101.9900, L501.6710, L500.3400, L509.1000, L100.0100, L501.1105 #### [facility] Laboratory [address] [place], [address] Globulin (S) [Mass/Vol] 3.0 g/dL Normal 2.2-4.2 [facility] Comment on above: Order Comment: DR. Ministerio BIANCHI GETS RESULTS FOR CRP ESR LIVER CBCD CREATININE DR. LOU GETS RESULTS FOR VITD AND PTH Performed By: #### L 506.1001, L101.9900, L501.6710, L500.3400, L509.1000, L100.0100, L501.1105 #### [facility] [address] [place], [address] T PROT 7.4 g/dL Normal 5.9-8.4 [facility] Comment on above: Order Comment: DR. Ministerio BIANCHI GETS RESULTS FOR CRP ESR LIVER CBCD CREATININE DR. LOU GETS RESULTS FOR VITD AND PTH Performed By: #### L 506.1001, L101.9900, L501.6710, L500.3400, L509.1000, L100.0100, L501.1105 #### [facility] [address] [place], [address] MCV (mean corpuscular volume ) determinationOrdered By: Cali Lou on 01-28-2025 MCV (RBC) [Entitic vol] 95.4 fL 81-99 [facility] Mean corpuscular hemoglobin (MCH) determinationOrdered By: Cali Lou on 01-28-2025 MCH (RBC) [Entitic mass] 31.1 pg 27.0-32.0 [facility] Mean corpuscular hemoglobin concentration (MCHC) determinationOrdered By: Cali Lou on 01-28-2025 MCHC (RBC) [Mass/Vol] 32.6 g/dL 32-36 [facility] Mean platelet volume determi nationOrdered By: Cali Lou on 01-28-2025 Platelet mean volume (Bld) [Entitic vol] 9.5 fL 6.2-12.0 [facility] Monocyte percentageOrdered B y: Cali Lou on 01-28-2025 Monocytes/100 WBC (Bld) 2.1 % 0-10 [facility] Neutrophil percentageOrdered By: Cali Lou on 01-28-2025 Neutrophils/100 WBC (Bld) 90.7 % High 47-70 [facility] Nucleated red blood cell per centageOrdered By: Cali Lou on 01-28-2025 Nucleated RBC/100 WBC (Bld) [Ratio] 0 % 0-5 [facility] PTHINon 01-28-2025 PTH 151 pg/mL High 11-61 [facility] Comment on above: Performed By: #### L 506.1001, L101.9900, L501.6710, L500.3400, L509.1000, L100.0100, L501.1105 #### [facility] Laboratory [address] [place], [address] Platelet countOrdered By: Jean Lou on 01-28-2025 Platelets (Bld) [#/Vol] 407 10*3/uL 150-450 [facility] RBC Auto (Bld) [#/Vol]Ordere d By: Cali Lou on 01-28-2025 RBC (Bld) [#/Vol] 4.15 10*6/uL Low 4.2-5.4 [facility] Serum Creatinine AND GFRon 0 - Creatinine [Mass/Vol] 1.00 mg/dL Normal 0.70-1.20 [facility] Comment on above: Order Comment: DR. Ministerio BIANCHI GETS RESULTS FOR CRP ESR LIVER CBCD CREATININE DR. LOU GETS RESULTS FOR VITD AND PTH Performed By: #### L 506.1001, L101.9900, L501.6710, L500.3400, L509.1000, L100.0100, L501.1105 #### [facility] Laboratory [address] [place], [address] GFR/1.73 sq M.predicted among non-blacks MDRD (S/P/Bld) [Vol rate/Area] 72 mL/min/{1.73_m2} Normal >60 [facility] Comment on above: Order Comment: DR. Ministerio BIANCHI GETS RESULTS FOR CRP ESR LIVER CBCD CREATININE DR. LOU GETS RESULTS FOR VITD AND PTH Result Comment: mL/m in/1.73m2 CKD-EPI Creatinine Equation (2020) Performed By: #### L 506.1001, L101.9900, L501.6710, L500.3400, L509.1000, L100.0100, L501.1105 #### [facility] Laboratory [address] [place], [place], [address] Serum creatinine measurement (mass/volume)Ordered By: Cali Lou on 01-28-2025 Creatinine [Mass/Vol] 1.00 mg/dL 0.70-1.20 [facility] Serum globulin measurementOr dered By: Cali Lou on 01-28-2025 Globulin (S) [Mass/Vol] 3.0 g/dL 2.2-4.2 [facility] Serum or plasma C reactive p rotein measurement (mass/volume)Ordered By: Cali Lou on 01-28-2025 CRP [Mass/Vol] 9.59 mg/L High 0.0-3.0 [facility] Serum or plasma alanine zuñiga otransferase (ALT) measurementOrdered By: Cali Lou on 01-28-2025 ALT [Catalytic activity/Vol] 16 U/L <35 [facility] Serum or plasma albumin sancho urement (mass/volume)Ordered By: Cali Lou on 01-28-2025 Albumin [Mass/Vol] 4.4 g/dL 3.5-5.0 [facility] Serum or plasma alkaline nallely sphatase measurementOrdered By: Cali Lou on 01-28-2025 ALP [Catalytic activity/Vol] 65 U/L 35-104 [facility] Total proteinOrdered By: Nito Lou on 01-28-2025 Protein [Mass/Vol] 7.4 g/dL 5.9-8.4 [facility] Vitamin D,25 Hydroxyon 01-28 Vitamin D 25-OH 35.0 ng/mL Normal 30-100 [facility] Comment on above: Order Comment: DR. Ministerio BIANCHI GETS RESULTS FOR CRP ESR LIVER CBCD CREATININE DR. LOU GETS RESULTS FOR VITD AND PTH Result Comment: Mira min D Status Deficiency: <20 ng/mL (50nmol/L) Insufficiency: 20-30 ng/mL (50-75 nmol/L) Sufficiency: 30-100 ng/mL (75-250 nmol/L) Toxicity: >100 ng/mL (>250 nmol/L) Performed By: #### L 506.1001, L101.9900, L501.6710, L500.3400, L509.1000, L100.0100, L501.1105 #### [facility] Laboratory [address] [place], [address] White blood cell (WBC) count Ordered By: Cali Lou on 01-28-2025 WBC (Bld) [#/Vol] 13.8 10*3/uL High 4.4-11.0 [facility] Foot min 3 Viewson Foot min 3 Views [facility] Imaging Services [address] [place] [address] Foot min 3 Views MR#: [id number] Acct: [id number] Name: ALMA ADEN Rep #: [id number] : 1980 F 44 From: Skyler mancuso MD PCP: Dr. 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 No new acute findings. Reading [facility] CC: ZAFAR Hilliard; Dr. 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: Signed Normal [facility] Internal Medicine Office Vis iton 01-21-2025 Internal Medicine Office Visit [facility] [address] [place] [address] [place] [address] OFFICE VISIT Date of Service: 01/21/25 MR#: [id number] Acct: [id number] Name: ALMA ADEN Rep #: [id number] : 1980 Provider: ZAFAR neil Age/Sex: 44/F Location[place] [facility] Status: Signed Intake Vital Signs 01/16/25 05:54 01/21/25 12:40 Height 5 ft 8 in 5 ft 8 in BP 132/80 H Blood Pressure Location Lt brachial Position Sitting Respiration 16 Pulse 86 Pulse Source Monitor Temp 95.6 F L Temp Source Temporal Pulse Oximetry (%) 97 Oxygen Delivery Method room air Intake Visit Reasons: ACUTE LEFT HEEL PAIN Chief Complaint: heel pain [place] Clerk Required: No Accompanied by: Self Is patient [...] at home: Yes 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 Patient states no injury no increase in activity no change in footwear (more content not included)... Normal [facility] EGD Reporton 01-16-2025 EGD Report [facility] Medical Records Department [address] [place] [address] EGD Report MR#: [id number] Acct: [id number] Name: ALMA ADEN Rep #: [id number] : 1980 44 From: Hammad Loaiza DO PCP: Dr. Wyatt Marcelo MD Status:REG [facility] Patient Name: Alma Aden Procedure Date: 01/16/2025 [...] 4 weeks Procedure Code(s): --- Professional --- 43225, Small intestinal endoscopy, enteroscopy beyond second portion of duodenum, not including ileum; with biopsy, single or multiple CPT copyright 2021 [employer]. All rights reserved. The codes documented in this report are preliminary and upon trapeze performer review may be revised to meet current compliance requirements. Hammad Loaiza DO 01/16/2025 (more content not included)... Normal [facility] Immunohistochemical Stainson 01-16-2025 Immunohistochemical Stains Patient Age/Sex Location Account Attending Physician ALMA ADEN 44/F EN [id number] Hammad Loaiza DO Specimen: [id number] Received: 01/16/25 Status: BETH Gerber Num: [id number] Spec Type: EGD BIOPSY Subm Dr: DO KENIA Arrington OPERATION: EGD, biopsy PRE-OP DIAGNOSIS: GERD TISSUE [...] developed and their performance characteristics determined by [facility] Laboratory. They may not have [...] specimen is totally submitted in one cassette. SC/mr 01/16/2025 CPT:34573y1,77671 Patient Age/Sex Location Account Attending Physician ALMA ADEN 44/F EN [id number] Hammad Loaiza DO Signed (signature on file) Dr. Shelley Gunn MD 01/21/25 1529 Normal [facility] Comment on above: Performed By: #### L 506.0400, L501.9520 #### [facility] Laboratory [address] [place], [address] MR/POSTOP.ANEon 01-16-2025 MR/POSTOP.[facility] Medical Records Department [address] [place] [address] Anesthesia Postop Eval I 01/16/25 0719 MR#: [id number] Acct: [id number] Name: ALMA ADEN Rep #: [id number] : 1980 44 From: Adi Berger CRNA PCP: Dr. Wyatt Marcelo MD Status:REG SDC Y Race: C Location: [place] [address] Anesthesia: Postop Eval I Current Vital Signs [...] Eval 1 completed: Yes 01/16/25719 Date Adi Paul Signature: Date CC: Signed Normal [facility] MR/[id number] 01-16-2025 MR/POSTOPAN2 [facility] Medical Records Department [address] [place] [address] Anesthesia Postop Eval II 01/16/25 0746 MR#: [id number] Acct: [id number] Name: ALMA ADEN Rep #: [id number] : 1980 44 From: Konrad Henderson MD PCP: Dr. Wyatt Marcelo MD Status:REG SDC Y Race: C Location: [place] [address] Anesthesia Postop Eval I Sum Postop Eval Completion status Anesthesia document: Postop Eval 1 completed: Yes Anesthesia Postop Eval I Summary Anesthesia Postop Eval I Summary: Anesthesia Postop Eval I: Assessment Summary Airway patent Yes 01/16/25 07:20 FEATURE [email or web address].MDOT Spontaneous unlabored Yes 01/16/25 07:20 FEATURE WRITER.MDOT respirations Mental status Awake,Calm 01/16/25 07:20 FEATURE WRITER.MDOT nausea No 01/16/25 07:20 FEATURE WRITER.MDOT Vomiting No 01/16/25 07:20 FEATURE WRITER.MDOT Anesthesia Postop Eval I: Fluid Summary Crystalloid volume administer 100 01/16/25 07:20 FEATURE WRITER.MDOT (ml) Colloids volume administered ( ml) Blood Product volume administered (ml) Total IV fluid infused 100 01/16/25 07:20 FEATURE WRITER.MDOT Anesthesia Postop Eval I: Summary Notes Anesthesia Complication No 01/16/25 07:20 FEATURE WRITER.MDOT Anesthesia Complication Comment: Post-operative progress note Anesthesia: Postop Eval II Evaluation Mental status: Awake and Calm Pain Level: 1 nausea: No Vomiting: No Complications Anesthesia Complication: No 01/16/25 0746 Date Konrad Farleyigner Signature: Date CC: Signed Normal [facility] Endocrinology Visit Reporton 01-07-2025 Endocrinology Visit Report [facility] 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 [facility] established in 2020 with diar (more content not included)... Normal [facility] T4 Free Directon 11-08-2024 T4 FREE DIRECT 1.00 ng/dL Normal 0.76-1.46 [facility] Comment on above: Performed By: #### L 506.0400, L501.9520 #### [facility] [address] [place], [place], [id number] Thyroid Stim Hormone (TSH)on 11-08-2024 TSH 0.729 uIU/mL Normal 0.300-4.200 [facility] Comment on above: Performed By: #### L 506.0400, L501.9520 #### [facility] [address] [place], [address] Absolute lymphocyte countOrd ered By: STEVEN BOLES on 11-07-2024 Lymphocytes Auto (Unsp spec) [#/Vol] 1.84 10*3/uL 0.83-4.51 [facility] Absolute neutrophil countOrd ered By: STEVEN BOLES on 11-07-2024 Neutrophils (Bld) [#/Vol] 4.2 10*3/uL 2.0-7.7 [facility] Automated lymphocyte count a s percentage of total leukocytesOrdered By: STEVEN BOLES on 11-07-2024 Lymphocytes/100 WBC Auto (Unsp spec) 27.3 % 19-41 [facility] Basophil percentageOrdered B y: STEVEN BOLES on 11-07-2024 Basophils/100 WBC (Bld) 0.7 % 0-1 [facility] Bilirubin directOrdered By: STEVEN BOLES on 11-07-2024 Bilirubin.direct [Mass/Vol] 0.12 mg/dL 0.00-0.30 [facility] Bilirubin, totalOrdered By: STEVEN BOLES on 11-07-2024 Bilirubin [Mass/Vol] 0.29 mg/dL 0.00-1.30 [facility] CBC W/Diff, Automatedon 10-16 Absolute Lymph 1.84 X10 3/uL Normal 0.83-4.51 [facility] Comment on above: Performed By: #### L 506.0400, L501.9520 #### [facility] [address] [place], [address] Absolute Neut 4.2 X10 3/uL Normal 2.0-7.7 [facility] Comment on above: Performed By: #### L 506.0400, L501.9520 #### [facility] [address] [place], [address] Basophils/100 WBC (Bld) 0.7 % Normal 0-1 [facility] Comment on above: Performed By: #### L 506.0400, L501.9520 #### [facility] [address] [place], [address] Eosinophils/100 WBC (Bld) 2.1 % Normal 0-5 [facility] Comment on above: Performed By: #### L 506.0400, L501.9520 #### [facility] [address] [place], [address] Erythrocyte distribution width (RBC) [Ratio] 12.7 % Normal 11.6-14.6 [facility] Comment on above: Performed By: #### L 506.0400, L501.9520 #### [facility] [address] [place], [address] Hematocrit (Bld) [Volume fraction] 36.6 % Low 37-47 [facility] Comment on above: Performed By: #### L 506.0400, L501.9520 #### [facility] [address] [place], [address] Hemoglobin (Bld) [Mass/Vol] 11.9 g/dL Low 12.0-15.0 [facility] Comment on above: Performed By: #### L 506.0400, L501.9520 #### [facility] [address] [place], [address] IG% 0.400 Normal 0.0-0.9 [facility] Comment on above: Result Comment: IG% - Immature Granulocytes (promyelocytes, myelocytes and metamyelocytes) > 1% indicates that a LEFT SHIFT is Present. Performed By: #### L 506.0400, L501.9520 #### [facility] [address] [place], [address] Lymphocytes/100 WBC (Bld) 27.3 % Normal 19-41 [facility] Comment on above: Performed By: #### L 506.0400, L501.9520 #### [facility] [address] [place], [address] MCH (RBC) [Entitic mass] 31.6 pg Normal 27.0-32.0 [facility] Comment on above: Performed By: #### L 506.0400, L501.9520 #### [facility] [address] [place], [address] MCHC (RBC) [Mass/Vol] 32.5 g/dL Normal 32-36 [facility] Comment on above: Performed By: #### L 506.0400, L5.20 #### [facility] [address] [place], [address] MCV (RBC) [Entitic vol] 97.3 fL Normal 81-99 [facility] Comment on above: Performed By: #### L 506.0400, L501.9520 #### [facility] [address] [place], [address] Monocytes/100 WBC (Bld) 7.4 % Normal 0-10 [facility] Comment on above: Performed By: #### L 506.0400, [id number] #### [facility] [address] [place], [address] Neutrophils/100 WBC (Bld) 62.1 % Normal 47-70 [facility] Comment on above: Performed By: #### L 506.0400, L5.20 #### [facility] [address] [place], [address] Nucleated RBC (Bld) [#/Vol] 0 10*3/uL Normal 0-5 [facility] Comment on above: Performed By: #### L 506.0400, L5.20 #### [facility] [address] [place], [address] Platelet mean volume (Bld) [Entitic vol] 9.5 fL Normal 6.2-12.0 [facility] Comment on above: Performed By: #### L 506.0400, L5.20 #### [facility] [address] [place], [address] Platelets (Bld) [#/Vol] 318 10*3/uL Normal 150-450 [facility] Comment on above: Performed By: #### L 506.0400, L5.20 #### [facility] [address] [place], [address] RBC (Bld) [#/Vol] 3.76 10*6/uL Low 4.2-5.4 [facility] Comment on above: Performed By: #### L 506.0400, L501.9520 #### [facility] [address] [place], [address] RDW SD 45.2 fl High 35.1-43.9 [facility] Comment on above: Performed By: #### L 506.0400, L501.9520 #### [facility] [address] [place], [address] WBC (Bld) [#/Vol] 6.7 10*3/uL Normal 4.4-11.0 [facility] Comment on above: Performed By: #### L 506.0400, L501.9520 #### [facility] [address] [place], [address] CRPon 11-07-2024 C-REACTIVE PROT 7.96 mg/L High 0.0-3.0 [facility] Comment on above: Performed By: #### L 506.0400, L501.9520 #### [facility] [address] [place], [address] CRP [Mass/Vol]Ordered By: ME KEYONA BOLES on 11-07-2024 C-Reactive Protein Extended Range 7.96 mg/L High 0.0-3.0 [facility] Eosinophil percentageOrdered By: STEVEN BOLES on 11-07-2024 Eosinophils/100 WBC (Bld) 2.1 % 0-5 [facility] Erythrocyte Sed Rateon 11-07 SED RATE 8 mm/hr Normal 0-30 [facility] Comment on above: Performed By: #### L 506.0400, L501.9520 #### [facility] [address] [place], [address] Erythrocyte distribution wid th (RBC) [Ratio]Ordered By: STEVEN BOLES on 11-07-2024 Erythrocyte distribution width (RBC) [Entitic vol] 45.2 fL High 35.1-43.9 [facility] Erythrocyte distribution wid th ratioOrdered By: STEVEN BOLES on 11-07-2024 Erythrocyte distribution width (RBC) [Ratio] 12.7 % 11.6-14.6 [facility] Erythrocyte distribution wid th standard deviationOrdered By: STEVEN BOLES on 11-07-2024 Erythrocyte distribution width (RBC) [Ratio] 45.2 fl High 35.1-43.9 [facility] Erythrocyte sedimentation ra teOrdered By: STEVEN BOLES on 11-07-2024 ESR (Bld) [Velocity] 8 mm/h 0-30 [facility] GFR/1.73 sq M.predicted leann g non-blacks MDRD (S/P/Bld) [Vol rate/Area]Ordered By: STEVEN BOLES on 11-07-2024 Estimated GFR (MDRD) Non-Af Amer 95 >60 [facility] Comment on above: mL/min/1.73m2 CKD-EP I Creatinine Equation (2020) Glomerular filtration rate ( GFR) estimation/1.73 sq m using serum, plasma, or whole bOrdered By: STEVEN BOLES on 11-07-2024 GFR/1.73 sq M.predicted among non-blacks MDRD (S/P/Bld) [Vol rate/Area] 95 mL/min/{1.73_m2} >60 [facility] Comment on above: mL/min/1.73m2 CKD-EP I Creatinine Equation (2020) Hematocrit Auto (Bld) [Volum e fraction]Ordered By: STEVEN BOLES on 11-07-2024 Hematocrit (Bld) [Volume fraction] 36.6 % Low 37-47 [facility] Hemoglobin measurementOrdere d By: STEVEN BOLES on 11-07-2024 Hemoglobin (Bld) [Mass/Vol] 11.9 g/dL Low 12.0-15.0 [facility] Immature granulocytes/100 WB C Auto (Bld)Ordered By: STEVEN BOLES on 11-07-2024 Immature granulocytes/100 WBC (Bld) 0.400 % 0.0-0.9 [facility] Comment on above: IG% - Immature Granu locytes (promyelocytes, myelocytes and metamyelocytes) > 1% indicates that a LEFT SHIFT is Present. Laboratory - Chemistry and C hemistry - challengeOrdered By: STEVEN BOLES on 11-07-2024 AST [Catalytic activity/Vol] 16 U/L <32 [facility] Liver Profileon 11-07-2024 Albumin [Mass/Vol] 4.1 g/dL Normal 3.5-5.0 [facility] Comment on above: Performed By: #### L 506.0400, L501.9520 #### [facility] [address] [place], [address] ALK PHOS 63 U/L Normal 35-104 [facility] Comment on above: Performed By: #### L 506.0400, L501.9520 #### [facility] [address] [place], [address] ALT [Catalytic activity/Vol] 18 U/L Normal <=34 [facility] Comment on above: Performed By: #### L 506.0400, L501.9520 #### [facility] [address] [place], [address] AST [Catalytic activity/Vol] 16 U/L Normal <=31 [facility] Comment on above: Performed By: #### L 506.0400, L501.9520 #### [facility] [address] [place], [address] Bilirubin [Mass/Vol] 0.29 mg/dL Normal 0.00-1.30 [facility] Comment on above: Performed By: #### L 506.0400, L501.9520 #### [facility] [address] [place], [address] Bilirubin.direct [Mass/Vol] 0.12 mg/dL Normal 0.00-0.30 [facility] Comment on above: Performed By: #### L 506.0400, L501.9520 #### [facility] [address] [place], [address] Globulin (S) [Mass/Vol] 2.3 g/dL Normal 2.2-4.2 [facility] Comment on above: Performed By: #### L 506.0400, L501.9520 #### [facility] [address] [place], [address] T PROT 6.4 g/dL Normal 5.9-8.4 [facility] Comment on above: Performed By: #### L 506.0400, L501.9520 #### [facility] [address] [place], [address] Lymphocytes Auto (Unsp spec) [#/Vol]Ordered By: STEVEN BOLES on 11-07-2024 Lymphocytes (Bld) [#/Vol] 1.84 10*3/uL 0.83-4.51 [facility] Lymphocytes/100 WBC Auto (Un sp spec)Ordered By: STEVEN BOLES on 11-07-2024 Lymphocytes/100 WBC (Bld) 27.3 % 19-41 [facility] MCV (mean corpuscular volume ) determinationOrdered By: STEVEN OBLES on 11-07-2024 MCV (RBC) [Entitic vol] 97.3 fL 81-99 [facility] Mean corpuscular hemoglobin (MCH) determinationOrdered By: STEVEN BOLES on 11-07-2024 MCH (RBC) [Entitic mass] 31.6 pg 27.0-32.0 [facility] Mean corpuscular hemoglobin concentration (MCHC) determinationOrdered By: STEVEN BOLES on 11-07-2024 MCHC (RBC) [Mass/Vol] 32.5 g/dL 32-36 [facility] Mean platelet volume determi nationOrdered By: STEVEN BOLES on 11-07-2024 Platelet mean volume (Bld) [Entitic vol] 9.5 fL 6.2-12.0 [facility] Monocyte percentageOrdered B y: STEVEN BOLES on 11-07-2024 Monocytes/100 WBC (Bld) 7.4 % 0-10 [facility] Neutrophil percentageOrdered By: STEVEN BOLES on 11-07-2024 Neutrophils/100 WBC (Bld) 62.1 % 47-70 [facility] Nucleated red blood cell per centageOrdered By: STEVEN BOLES on 11-07-2024 Nucleated RBC/100 WBC (Bld) [Ratio] 0 % 0-5 [facility] Platelet countOrdered By: ME KEYONA BOLES on 11-07-2024 Platelets (Bld) [#/Vol] 318 10*3/uL 150-450 [facility] RBC Auto (Bld) [#/Vol]Ordere d By: STEVEN BOLES on 11-07-2024 RBC (Bld) [#/Vol] 3.76 10*6/uL Low 4.2-5.4 [facility] Serum Creatinine AND GFRon 0 11-07-2024 Creatinine [Mass/Vol] 0.80 mg/dL Normal 0.70-1.20 [facility] Comment on above: Performed By: #### L 506.0400, L501.9520 #### [facility] [address] [facility] [place], [address] GFR/1.73 sq M.predicted among non-blacks MDRD (S/P/Bld) [Vol rate/Area] 95 mL/min/{1.73_m2} Normal >60 [facility] Comment on above: Result Comment: mL/m in/1.73m2 CKD-EPI Creatinine Equation (2020) Performed By: #### L 506.0400, L501.9520 #### [facility] [address] [facility] [place], [address] Serum creatinine measurement (mass/volume)Ordered By: STEVEN BOLES on 11-07-2024 Creatinine [Mass/Vol] 0.80 mg/dL 0.70-1.20 [facility] Serum globulin measurementOr dered By: STEVEN BOLES on 11-07-2024 Globulin (S) [Mass/Vol] 2.3 g/dL 2.2-4.2 [facility] Serum or plasma C reactive p rotein measurement (mass/volume)Ordered By: STEVEN BOLES on 11-07-2024 CRP [Mass/Vol] 7.96 mg/L High 0.0-3.0 [facility] Serum or plasma alanine zuñiga otransferase (ALT) measurementOrdered By: STEVEN BOLES on 11-07-2024 ALT [Catalytic activity/Vol] 18 U/L <35 [facility] Serum or plasma albumin asncho urement (mass/volume)Ordered By: STEVEN BOLES on 11-07-2024 Albumin [Mass/Vol] 4.1 g/dL 3.5-5.0 [facility] Serum or plasma alkaline nallely sphatase measurementOrdered By: STEVEN BOLES on 11-07-2024 ALP [Catalytic activity/Vol] 63 U/L 35-104 [facility] T4 freeOrdered By: Cali Lou on 11-07-2024 Free T4 [Mass/Vol] 1.00 ng/dL 0.76-1.46 [facility] TSH DL <= 0.005 mIU/L QnOrde red By: Cali Lou on 11-07-2024 Thyroid Stimulating Hormone (TSH) 0.729 uIU/mL 0.300-4.200 [facility] TSH Qn 0.729 uIU/mL 0.300-4.200 [facility] Total proteinOrdered By: IRENE BOLES on 11-07-2024 Protein [Mass/Vol] 6.4 g/dL 5.9-8.4 [facility] White blood cell (WBC) count Ordered By: STEVEN BOLES on 11-07-2024 WBC (Bld) [#/Vol] 6.7 10*3/uL 4.4-11.0 [facility] Internal Medicine Office Vis aisha 10-23-2024 Internal Medicine Office Visit [facility] [address] [place] [address] [place], [place] [address] OFFICE VISIT Date of Service: 10/23/24 MR#: [id number] Acct: [id number] Name: ALMA ADEN Rep #: [id number] : 1980 Provider: Dr. 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 Normal [facility] Hemoglobin A1con 10-10-2024 HbA1c (Bld) [Mass fraction] 5.9 % Normal <=5.6 [facility] Comment on above: Performed By: #### L 501.9985 #### [facility] [address] [place], [place], [address] Hemoglobin A1c percentageOrd ered By: Wyatt Marcelo on 10-10-2024 HbA1c (Bld) [Mass fraction] 5.9 % >5.7 [facility] Urgent Care Visit Reporton 0 08-31-2024 Urgent Care Visit Report [facility] [address], [address] [place], [place] [address] OFFICE VISIT Date of Service: 08/31/24 MR#: [id number] Acct: [id number] Name: ALMA ADEN Rep #: [id number] : 1980 Provider: ZAFAR Tan Age/Sex: 44/F Location: [facility] Status: Signed Intake Vital Signs 05/10/24 10:59 [...] at home: Yes 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 Normal [facility] Absolute neutrophil countOrd ered By: STEVEN BOLES on 07-23-2024 Neutrophils (Bld) [#/Vol] 3.3 10*3/uL 2.0-7.7 [facility] Basophil percentageOrdered B y: STEVEN BOLES on 07-23-2024 Basophils/100 WBC (Bld) 0.5 % 0-1 [facility] Bilirubin directOrdered By: STEEVN BOLES on 07-23-2024 Bilirubin.direct [Mass/Vol] 0.10 mg/dL 0.00-0.30 [facility] Bilirubin, totalOrdered By: STEVEN BOLES on 07-23-2024 Bilirubin [Mass/Vol] 0.40 mg/dL 0.20-1.00 [facility] Comment on above: For patients on eltr ombopag therapy, use of Dimension [place] TBIL is not recommended. C-reactive protein measureme nt by high sensitivity methodOrdered By: STEVEN BOLES on 07-23-2024 C-Reactive Protein Extended Range 4.63 mg/L High 0.0-3.0 [facility] Comment on above: C-Reactive Protein ( CRP) provides useful information for thediagnosis, therapy and monitoring of inflammatory processesand associated diseases. For the evaluation of Relative Riskfor Cardiovascular Disease, a High Sensitivity CRP (HSCRP)should be ordered. CBC W/Diff, Automatedon Absolute Lymph 1.81 X10 3/uL Normal 0.83-4.51 [facility] Comment on above: Performed By: #### L 501.9985 #### [facility] [address] [place], [address] Absolute Neut 3.3 X10 3/uL Normal 2.0-7.7 [facility] Comment on above: Performed By: #### L [id number] #### [facility] [address] [place], [address] Basophils/100 WBC (Bld) 0.5 % Normal 0-1 [facility] Comment on above: Performed By: #### L [id number] #### [facility] [address] [place], [address] Eosinophils/100 WBC (Bld) 1.8 % Normal 0-5 [facility] Comment on above: Performed By: #### L 501.9985 #### [facility] [address] [place], [address] Erythrocyte distribution width (RBC) [Ratio] 13.4 % Normal 11.6-14.6 [facility] Comment on above: Performed By: #### L 501.9985 #### [facility] [address] [place], [address] Hematocrit (Bld) [Volume fraction] 35.1 % Low 37-47 [facility] Comment on above: Performed By: #### L 501.9985 #### [facility] [address] [place], [address] Hemoglobin (Bld) [Mass/Vol] 11.5 g/dL Low 12.0-15.0 [facility] Comment on above: Performed By: #### L 501.9985 #### [facility] [address] [place], [address] IG% 0.200 Normal 0.0-0.9 [facility] Comment on above: Result Comment: IG% - Immature Granulocytes (promyelocytes, myelocytes and metamyelocytes) > 1% indicates that a LEFT SHIFT is Present. Performed By: #### L 501.9985 #### [facility] [address] [place], [address] Lymphocytes/100 WBC (Bld) 31.9 % Normal 19-41 [facility] Comment on above: Performed By: #### L 501.9985 #### [facility] [address] [place], [address] MCH (RBC) [Entitic mass] 31.4 pg Normal 27.0-32.0 [facility] Comment on above: Performed By: #### L 501.9985 #### [facility] [address] [place], [address] MCHC (RBC) [Mass/Vol] 32.8 g/dL Normal 32-36 [facility] Comment on above: Performed By: #### L 501.9985 #### [facility] [address] [place], [address] MCV (RBC) [Entitic vol] 95.9 fL Normal 81-99 [facility] Comment on above: Performed By: #### L 501.9985 #### [facility] [address] [place], [address] Monocytes/100 WBC (Bld) 8.1 % Normal 0-10 [facility] Comment on above: Performed By: #### L 501.9985 #### [facility] [address] [place], [address] Neutrophils/100 WBC (Bld) 57.5 % Normal 47-70 [facility] Comment on above: Performed By: #### L 501.9985 #### [facility] [address] [place], [address] Nucleated RBC (Bld) [#/Vol] 0 10*3/uL Normal 0-5 [facility] Comment on above: Performed By: #### L 501.9985 #### [facility] [address] [place], [address] Platelet mean volume (Bld) [Entitic vol] 9.6 fL Normal 6.2-12.0 [facility] Comment on above: Performed By: #### L 501.9985 #### [facility] [address] [place], [address] Platelets (Bld) [#/Vol] 329 10*3/uL Normal 150-450 [facility] Comment on above: Performed By: #### L 501.9985 #### [facility] [address] [place], [address] RBC (Bld) [#/Vol] 3.66 10*6/uL Low 4.2-5.4 [facility] Comment on above: Performed By: #### L 501.9985 #### [facility] [address] [place], [address] (072) RDW SD 47.3 fl High 35.1-43.9 [facility] Comment on above: Performed By: #### L 501.9985 #### [facility] [address] [place], [address] (704) WBC (Bld) [#/Vol] 5.7 10*3/uL Normal 4.4-11.0 [facility] Comment on above: Performed By: #### L 501.9985 #### [facility] [address] [place], [address] (325) CRPon 07-23-2024 C-REACTIVE PROT 4.63 mg/L High 0.0-3.0 [facility] Comment on above: Result Comment: C-Re active Protein (CRP) provides useful information for the diagnosis, therapy and monitoring of inflammatory processes and associated diseases. For the evaluation of Relative Risk for Cardiovascular Disease, a High Sensitivity CRP (HSCRP) should be ordered. Performed By: #### L 501.9985 #### [facility] [address] [place], [address] Eosinophil percentageOrdered By: STEVEN BOLES on 07-23-2024 Eosinophils/100 WBC (Bld) 1.8 % 0-5 [facility] Erythrocyte Sed Rateon 07-23 SED RATE 5 mm/hr Normal 0-30 [facility] Comment on above: Performed By: #### L 501.9985 #### [facility] [address] [place], [address] Erythrocyte distribution wid th ratioOrdered By: STEVEN BOLES on 07-23-2024 Erythrocyte distribution width (RBC) [Ratio] 13.4 % 11.6-14.6 [facility] Erythrocyte distribution wid th standard deviationOrdered By: TSEVEN BOLES on 07-23-2024 Erythrocyte distribution width (RBC) [Entitic vol] 47.3 fL High 35.1-43.9 [facility] Erythrocyte sedimentation ra teOrdered By: STEVEN BOLES on 07-23-2024 ESR (Bld) [Velocity] 5 mm/h 0-30 [facility] Estimated glomerular filtrat ion rate (GFR) AmericanOrdered By: STEVEN BOLES on 07-23-2024 Estimated GFR (MDRD) Amer 103 mL/min >60 [facility] Comment on above: GFR Calc Glomerular filtration rate ( GFR) estimationOrdered By: STEVEN BOLES on 07-23-2024 Estimated GFR (MDRD) Non-Af Amer 85 mL/min >60 [facility] Comment on above: Non- GFR Calc Hematocrit Auto (Bld) [Volum e fraction]Ordered By: STEVEN BOLES on 07-23-2024 Hematocrit (Bld) [Volume fraction] 35.1 % Low 37-47 [facility] Hemoglobin measurementOrdere d By: STEVEN BOLES on 07-23-2024 Hemoglobin (Bld) [Mass/Vol] 11.5 g/dL Low 12.0-15.0 [facility] Immature granulocytes/100 WB C Auto (Bld)Ordered By: STEVEN BOLES on 07-23-2024 Immature granulocytes/100 WBC (Bld) 0.200 % 0.0-0.9 [facility] Comment on above: IG% - Immature Granu locytes (promyelocytes, myelocytes and metamyelocytes) > 1% indicates that a LEFT SHIFT is Present. Laboratory - Chemistry and C hemistry - challengeOrdered By: STEVEN BOLES on 07-23-2024 AST [Catalytic activity/Vol] 23 U/L 15-37 [facility] Liver Profileon 07-23-2024 Albumin [Mass/Vol] 3.8 g/dL Normal 3.2-5.0 [facility] Comment on above: Performed By: #### L 501.9985 #### [facility] [address] [place], [place], [id number] ALK P 61 U/L Normal 45-117 [facility] Comment on above: Performed By: #### L [id number] #### [facility] [address] [place], [address] ALT [Catalytic activity/Vol] 28 U/L Normal 13-56 [facility] Comment on above: Performed By: #### L [id number] #### [facility] [address] [place], [address] AST [Catalytic activity/Vol] 23 U/L Normal 15-37 [facility] Comment on above: Performed By: #### L [id number] #### [facility] [address] [place], [address] Bilirubin [Mass/Vol] 0.40 mg/dL Normal 0.20-1.00 [facility] Comment on above: Result Comment: For patients on eltrombopag therapy, use of Dimension [place] TBIL is not recommended. Performed By: #### L [id number] #### [facility] [address] [place], [address] Bilirubin.direct [Mass/Vol] 0.10 mg/dL Normal 0.00-0.30 [facility] Comment on above: Performed By: #### L 501.9985 #### [facility] [address] [place], [address] Globulin (S) [Mass/Vol] 3.7 g/dL Normal 2.2-4.2 [facility] Comment on above: Performed By: #### L 501.9985 #### [facility] Laboratory [address] [place], [address] T PROT 7.5 g/dL Normal 6.4-8.2 [facility] Comment on above: Performed By: #### L 501.9985 #### [facility] Laboratory [address] [place], [address] Lymphocytes Auto (Unsp spec) [#/Vol]Ordered By: STEVEN BOLES on 07-23-2024 Lymphocytes (Bld) [#/Vol] 1.81 10*3/uL 0.83-4.51 [facility] Lymphocytes/100 WBC Auto (Un sp spec)Ordered By: STEVEN BOLES on 07-23-2024 Lymphocytes/100 WBC (Bld) 31.9 % 19-41 [facility] MCV (mean corpuscular volume ) determinationOrdered By: STEVEN BOLES on 07-23-2024 MCV (RBC) [Entitic vol] 95.9 fL 81-99 [facility] Mean corpuscular hemoglobin (MCH) determinationOrdered By: STEVEN BOLES on 07-23-2024 MCH (RBC) [Entitic mass] 31.4 pg 27.0-32.0 [facility] Mean corpuscular hemoglobin concentration (MCHC) determinationOrdered By: STEVEN BOLES on 07-23-2024 MCHC (RBC) [Mass/Vol] 32.8 g/dL 32-36 [facility] Mean platelet volume determi nationOrdered By: STEVEN BOLES on 07-23-2024 Platelet mean volume (Bld) [Entitic vol] 9.6 fL 6.2-12.0 [facility] Monocyte percentageOrdered B y: STEVEN BOLES on 07-23-2024 Monocytes/100 WBC (Bld) 8.1 % 0-10 [facility] Neutrophil percentageOrdered By: STEVEN BOLES on 07-23-2024 Neutrophils/100 WBC (Bld) 57.5 % 47-70 [facility] Nucleated red blood cell per centageOrdered By: STEVEN BOLES on 07-23-2024 Nucleated RBC/100 WBC (Bld) [Ratio] 0 % 0-5 [facility] Platelet countOrdered By: ME KEYONA BOLES on 07-23-2024 Platelets (Bld) [#/Vol] 329 10*3/uL 150-450 [facility] RBC Auto (Bld) [#/Vol]Ordere d By: STEVEN BOLES on 07-23-2024 RBC (Bld) [#/Vol] 3.66 10*6/uL Low 4.2-5.4 [facility] Serum Creatinine AND GFRon 0 07-23-2024 Creatinine [Mass/Vol] 0.79 mg/dL Normal 0.55-1.02 [facility] Comment on above: Result Comment: The validity of the calculated GFR GFRAA in patients over 70 years has not been determined. Clinical correlation is essential. Performed By: #### L 501.9985 #### [facility] Laboratory [address] [place], [place], [id number] EST GFR - AA 103 mL/min Normal >60 [facility] Comment on above: Result Comment: Afri can Grenadian GFR Calc Performed By: #### L 501.9985 #### [facility] Laboratory [address] [place], [place], [id number] GFR/1.73 sq M.predicted among non-blacks MDRD (S/P/Bld) [Vol rate/Area] 85 mL/min/{1.73_m2} Normal >60 [facility] Comment on above: Result Comment: Non- GFR Calc Performed By: #### L 501.9985 #### [facility] Laboratory [address] [place], [place], [id number] Serum globulin measurementOr dered By: STEVEN BOLES on 07-23-2024 Globulin (S) [Mass/Vol] 3.7 g/dL 2.2-4.2 [facility] Serum or plasma alanine zuñiga otransferase (ALT) measurementOrdered By: STEVEN BOLES on 07-23-2024 ALT [Catalytic activity/Vol] 28 U/L 13-56 [facility] Serum or plasma albumin sancho urement (mass/volume)Ordered By: STEVEN BOLES on 07-23-2024 Albumin [Mass/Vol] 3.8 g/dL 3.2-5.0 [facility] Serum or plasma alkaline nallely sphatase measurementOrdered By: STEVEN BOLES on 07-23-2024 ALP [Catalytic activity/Vol] 61 U/L 45-117 [facility] Serum or plasma creatinine m easurement (mass/volume)Ordered By: STEVEN ANDRADEWSKI on 07-23-2024 Creatinine [Mass/Vol] 0.79 mg/dL 0.55-1.02 [facility] Comment on above: The validity of the calculated GFR & GFRAA in patients over 70 years has not been determined. Clinical correlation is essential. Total proteinOrdered By: IRENE HAMM RAMANA on 07-23-2024 Protein [Mass/Vol] 7.5 g/dL 6.4-8.2 [facility] White blood cell (WBC) count Ordered By: STEVEN RAMANA on 07-23-2024 WBC (Bld) [#/Vol] 5.7 10*3/uL 4.4-11.0 [facility] Inital Evaluation (1) - PTon 07-03-2024 Inital Evaluation (1) - PT [facility] Physical Therapy [facility] [address] [place] [address]. [address] [place] [address] / REHABILITATION SERVICES INITIAL EVALUATION MR#: [id number] Acct: [id number] Name: ALMA ADEN Rep #: [id number] : 1980 43 From: Anatoliy Boudreaux DPT Referring Dr.: ISIDRA Avendano Status: REG RCR Insurance: [employer] [employer] [facility] SELF PAY INSURANCE Patient's Visit Information Visit Information Visit Information: ALMA ADEN is a 43 year old F referred to Physical Therapy by ISIDRA Avendano with a diagnosis of lumbar spondylosis. Date of Evaluation: 07/02/24 Physical Therapist: Anatoliy Boudreaxu DPT Visit Plan Frequency: 2x /Week Duration: [...] and To (more content not included)... Normal [facility] Spine Lumbar (Routine)on Spine Lumbar (Routine) [facility] Imaging Services [address] [place] [address] [id number] Spine Lumbar (Routine) MR#: [id number] Acct: [id number] Name: ALMA ADEN Rep #: [id number] : 1980 F 43 From: Abad Juarez MD PCP: Dr. yWatt Marcelo MD Status: REG CLI Study: Spine Lumbar (Routine) Date of Exam: 05/27/24 Exam# [id number] Ordering Dr: Nimco Gonzalez [id number] STUDY: MRI LUMBAR SPINE WITHOUT CONTRAST REASON [...] Electronically Signed: Abad Juarez MD at 11:23 [facility] , CC: ISIDRA Avendano; Dr. 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: Signed Normal [facility] L/S Spine Bending Flex/Cornell 05-10-2024 L/S Spine Bending Flex/Ext [facility] Imaging Services [address] [place] [address] [id number] L/S Spine Bending Flex/Ext MR#: [id number] Acct: [id number] Name: ALMA ADEN Rep #: [id number] : 1980 F 43 From: Devin Davis DO PCP: Dr. Wyatt Marcelo MD Status: REG CLI Study: L/S Spine Bending Flex/Ext Date of Exam: 05/10 Exam# [id number] Ordering Dr: Nimco Gonzalez [id number] STUDY: X-RAY - LUMBAR SPINE REASON FOR [...] 20:14 EDT Reading Location ID and State: [facility] / [place] Tel [phone], Service support , CC: ISIDRA Avendano; Dr. 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: Signed Normal [facility] Orthopedic Visit Reporton Orthopedic Visit Report [facility] [address] [place] [address] OFFICE VISIT Date of Service: 05/10/24 MR#: [id number] Acct: [id number] Name: ALMA ADEN Rep #: [id number] : 1980 Provider: ISIDRA Avendano Age/Sex: 43/F Location: [facility] Status: Signed Intake Vital Signs 03/20/24 09:41 [...] PRN Arthritis #100 04/25/24 05/10/24 Rx tabs [facility] Medical History Borderline type 2 diabetes [...] at home: Yes 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 Part of today???s visit was documented by [...] on getti (more content not included)... Normal [facility] L/S Spine Min 4 Viewson 04-17 L/S Spine Min 4 Views [facility] Imaging Services [address] [place], [place] [address] L/S Spine Min 4 Views MR#: [id number] Acct: [id number] Name: ALMA ADEN Rep #: [id number] : 1980 F 43 From: Juan R Rasmussen PCP: Dr. Wyatt Marcelo MD Status: REG CL Study: L/S Spine Min 4 Views Date of Exam: 05/09/24 Exam# [id number] Ordering Dr: Nimco Gonzalez [id number] EXAM: XR LUMBOSACRAL SPINE, 4 OR 5 [...] CC: ISIDRA Avendano; Dr. 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: Signed Normal [facility] Dexa Bone Density Studyon Dexa Bone Density Study [facility] Imaging Services [address] [place] [address] Dexa Bone Density Study MR#: [id number] Acct: [id number] Name: ALMA ADEN Rep #: [id number] : 1980 F 43 From: Sukhdeep mosqueda MD PCP: Dr. 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 / [place] , Service support , CC: ZAFAR Coleman; Dr. 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: Signed Normal [facility] CBC, Employeeon 04-25-2024 Absolute Lymph 1.71 X10 3/uL Normal 0.83-4.51 [facility] Comment on above: Performed By: #### L 501.9985 #### [facility] Laboratory [address] [place], [place], [id number] Absolute Neut 2.6 X10 3/uL Normal 2.0-7.7 [facility] Comment on above: Performed By: #### L 501.9985 #### [facility] Laboratory [address] [place], [place], [phone] ([address]) Basophils/100 WBC (Bld) 1.1 % High 0-1 [facility] Comment on above: Performed By: #### L 501.9985 #### [facility] Laboratory [address] [place], [address] Eosinophils/100 WBC (Bld) 1.7 % Normal 0-5 [facility] Comment on above: Performed By: #### L 501.9985 #### [facility] Laboratory [address] [place], [address] Erythrocyte distribution width (RBC) [Ratio] 12.0 % Normal 11.6-14.6 [facility] Comment on above: Performed By: #### L .85 #### [facility] Laboratory [address] [place], [address] Hematocrit (Bld) [Volume fraction] 37.0 % Normal 37-47 [facility] Comment on above: Performed By: #### L .85 #### [facility] Laboratory [address] [place], [address] Hemoglobin (Bld) [Mass/Vol] 12.0 g/dL Normal 12.0-15.0 [facility] Comment on above: Performed By: #### L [id number] #### [facility] Laboratory [address] [place], [address] Lymphocytes/100 WBC (Bld) 36.5 % Normal 19-41 [facility] Comment on above: Performed By: #### L .85 #### [facility] Laboratory [address] [place], [address] MCH (RBC) [Entitic mass] 31.3 pg Normal 27.0-32.0 [facility] Comment on above: Performed By: #### L 501.9985 #### [facility] Laboratory [address] [place], [address] MCHC (RBC) [Mass/Vol] 32.4 g/dL Normal 32-36 [facility] Comment on above: Performed By: #### L 501.9985 #### [facility] Laboratory [address] [place], [address] MCV (RBC) [Entitic vol] 96.6 fL Normal 81-99 [facility] Comment on above: Performed By: #### L 501.85 #### [facility] Laboratory [address] [place], [address] Monocytes/100 WBC (Bld) 6.0 % Normal 0-10 [facility] Comment on above: Performed By: #### L 85 #### [facility] Laboratory [address] [place], [address] Neutrophils/100 WBC (Bld) 54.3 % Normal 47-70 [facility] Comment on above: Performed By: #### L [id number] #### [facility] Laboratory [address] [place], [address] NRBC # 0.00 10 3/uL Normal 0-5 [facility] Comment on above: Performed By: #### L [id number] #### [facility] Laboratory [address] [place], [address] Nucleated RBC (Bld) [#/Vol] 0 10*3/uL Normal 0-5 [facility] Comment on above: Performed By: #### L 85 #### [facility] Laboratory [address] [place], [address] Platelet mean volume (Bld) [Entitic vol] 9.2 fL Normal 6.2-12.0 [facility] Comment on above: Performed By: #### L 501.9985 #### [facility] Laboratory [address] [place], [address] Platelets (Bld) [#/Vol] 308 10*3/uL Normal 150-450 [facility] Comment on above: Performed By: #### L 501.85 #### [facility] Laboratory [address] [place], [address] RBC (Bld) [#/Vol] 3.83 10*6/uL Low 4.2-5.4 [facility] Comment on above: Performed By: #### L 501.9985 #### [facility] Laboratory [address] [place], [address] RDW SD 42.5 fl Normal 35.1-43.9 [facility] Comment on above: Performed By: #### L 501.9985 #### [facility] Laboratory [address] [place], [address] WBC (Bld) [#/Vol] 4.7 10*3/uL Normal 4.4-11.0 [facility] Comment on above: Performed By: #### L 501.9985 #### [facility] Laboratory [address] [place], [address] [employer] 4 Albumin [Mass/Vol] 3.7 g/dL Normal 3.2-5.0 [facility] Comment on above: Performed By: #### L 806.9985 #### [facility] Laboratory [address] [place], [address] Albumin/Globulin [Mass ratio] 1.0 {ratio} Normal 0.9-2.4 [facility] Comment on above: Performed By: #### L 501.9985 #### [facility] Laboratory [address] [place], [address] ALK P 59 U/L Normal 45-117 [facility] Comment on above: Performed By: #### L 501.9985 #### [facility] Laboratory [address] [place], [address] ALT [Catalytic activity/Vol] 19 U/L Normal 13-56 [facility] Comment on above: Performed By: #### L 501.9985 #### [facility] Laboratory [address] [place], [address] AST [Catalytic activity/Vol] 13 U/L Low 15-37 [facility] Comment on above: Performed By: #### L 501.9985 #### [facility] Laboratory [address] [place], [address] Bilirubin [Mass/Vol] 0.30 mg/dL Normal 0.20-1.00 [facility] Comment on above: Result Comment: For patients on eltrombopag therapy, use of Dimension [place] TBIL is not recommended. Performed By: #### L 501.9985 #### [facility] Laboratory [address] [place], [address] Bilirubin.direct [Mass/Vol] 0.08 mg/dL Normal 0.00-0.30 [facility] Comment on above: Performed By: #### L .85 #### [facility] Laboratory [address] [place], [address] BUN/CRE 16.3 RATIO Normal 10-20 [facility] Comment on above: Performed By: #### L 501.9985 #### [facility] Laboratory [address] [place], [address] CA,Total 9.9 mg/dL Normal 8.5-10.1 [facility] Comment on above: Performed By: #### L 501.9985 #### [facility] Laboratory [address] [place], [address] Chloride [Moles/Vol] 107 mmol/L Normal 98-107 [facility] Comment on above: Performed By: #### L 501.9985 #### [facility] Laboratory [address] [place], [address] CHOL:HDL 3.50 Normal [facility] Comment on above: Performed By: #### L 501.9985 #### [facility] Laboratory [address] [place], [address] Cholesterol [Mass/Vol] 227 mg/dL High 200 [facility] Comment on above: Result Comment: <200 mg/dL Desirable 200-240 mg/dL Borderline >240 mg/dL High Risk Performed By: #### L 501.9985 #### [facility] Laboratory [address] [place], [address] Cholesterol in HDL [Mass/Vol] 65 mg/dL Normal [facility] Comment on above: Result Comment: The drugs N-Acetylcysteine and Metamizole may falsely depress this assay. Reference Range HDL <40 mg/dL Low HDL Cholesterol HDL >or= 60 mg/dL High HDL Cholesterol Performed By: #### L 501.9985 #### [facility] [address] [place], [address] Cholesterol in LDL [Mass/Vol] 136 mg/dL High 0-130 [facility] Comment on above: Performed By: #### L 501.9985 #### [facility] Laboratory [address] [place], [address] Cholesterol in VLDL [Mass/Vol] 26 mg/dL Normal 5-40 [facility] Comment on above: Performed By: #### L 501.9985 #### [facility] Laboratory [address] [place], [address] CO2 [Moles/Vol] 25.0 mmol/L Normal 21.0-32.0 [facility] Comment on above: Performed By: #### L 501.9985 #### [facility] Laboratory [address] [place], [address] Creatinine [Mass/Vol] 0.74 mg/dL Normal 0.55-1.02 [facility] Comment on above: Result Comment: The validity of the calculated GFR GFRAA in patients over 70 years has not been determined. Clinical correlation is essential. Performed By: #### L 501.9985 #### [facility] [address] [place], [address] EST GFR - AA 112 mL/min Normal >60 [facility] Comment on above: Result Comment: Afri can Grenadian GFR Calc Performed By: #### L 501.9985 #### [facility] Laboratory [address] [place], [address] GAP 7 Normal 5-15 [facility] Comment on above: Performed By: #### L 501.9985 #### [facility] Laboratory [address] [place], [address] GFR/1.73 sq M.predicted among non-blacks MDRD (S/P/Bld) [Vol rate/Area] 92 mL/min/{1.73_m2} Normal >60 [facility] Comment on above: Result Comment: Non- GFR Calc Performed By: #### L 501.9985 #### [facility] Laboratory [address] [place], [address] Globulin (S) [Mass/Vol] 3.7 g/dL Normal 2.2-4.2 [facility] Comment on above: Performed By: #### L 501.9985 #### [facility] Laboratory [address] [place], [address] Glucose [Mass/Vol] 115 mg/dL High 74-106 [facility] Comment on above: Result Comment: Fast ing Glucose result from 100 to 125 mg/dL suggests IMPAIRED HOMEOSTASIS per A.D.A. criteria. Performed By: #### L 501.9985 #### [facility] [address] [place], [address] LDH 219 U/L Normal 84-246 [facility] Comment on above: Performed By: #### L 501.9985 #### [facility] [address] [place], [address] Phosphate [Mass/Vol] 3.0 mg/dL Normal 2.5-4.9 [facility] Comment on above: Performed By: #### L 501.9985 #### [facility] [address] [place], [address] Potassium [Moles/Vol] 4.2 mmol/L Normal 3.5-5.1 [facility] Comment on above: Performed By: #### L 501.9985 #### [facility] [address] [place], [address] Sodium [Moles/Vol] 139 mmol/L Normal 136-145 [facility] Comment on above: Performed By: #### L 501.9985 #### [facility] [address] [place], [address] T PROT 7.4 g/dL Normal 6.4-8.2 [facility] Comment on above: Performed By: #### L 501.9985 #### [facility] Laboratory [address] [place], [address] Triglyceride [Mass/Vol] 131 mg/dL Normal [facility] Comment on above: Result Comment: The drugs N-Acetylcysteine and Metamizole may falsely depress this assay. Serum Triglycerides Reference Interval Normal <150 mg/dL Borderline high 150 - 199 mg/dL High 200 - 499 mg/dL Very High > or = 500 mg/dL Performed By: #### L 501.9985 #### [facility] [address] [place], [address] Urea nitrogen [Mass/Vol] 12 mg/dL Normal 7-18 [facility] Comment on above: Performed By: #### L 501.9985 #### [facility] Laboratory [address] [place], [address] URIC 5.5 mg/dL Normal 2.6-6.0 [facility] Comment on above: Result Comment: The drugs N-Acetylcysteine and Metamizole may falsely depress this assay. Performed By: #### L 501.9985 #### [facility] Laboratory [address] [place], [address] Internal Medicine Office Vis aisha 04-25-2024 Internal Medicine Office Visit [facility] [address] [place] [address] [place] [address] OFFICE VISIT Date of Service: 04/25/24 MR#: [id number] Acct: [id number] Name: ALMA ADEN Rep #: [id number] : 1980 Provider: Dr. Wyatt mills MD Age/Sex: 43/F Location[place] [facility] [place] Status: Signed Intake Vital Signs 12/15/23 08:47 03/20/24 09:41 04/25/24 17:02 Height 5 ft 8 in 5 ft 8 in BP 130/84 H Blood Pressure Location Lt brachial Position Sitting Respiration 16 Pulse 78 Pulse Source Monitor Temp 97 F L Temp Source Temporal Pulse Oximetry (%) 99 Oxygen Delivery Method room air Intake Visit Reasons: YEARLY Chief Complaint: annual [place] Clerk Required: No Is patient in pain?: No [...] done 5.9% Needs losartan and xanax refilled. 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 No acute concerns at this time. 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 Positive family history of osteoporosis in her mother. Also history of chronic intermittent steroid use. No recent fractures. A1c done recently at 5.9 up from 5.8. Had been on compounded semaglutide in which she lost 30 pounds however due to cost discontinued. Continues to follow-up with rheumatology at the [facility] (more content not included)... Normal [facility] Urinalysis, Employeeon 04-25 BILIRUBIN URINE Negative Normal Negative [facility] Comment on above: Order Comment: CLEAN CATCH Performed By: #### L 501.9985 #### [facility] Laboratory [address] [place], [address] Clarity (U) Clear Normal Clear [facility] [facility] Comment on above: Order Comment: CLEAN CATCH Performed By: #### L [id number] #### [facility] [address] [place], [address] Color (U) Yellow Normal Yellow [facility] Comment on above: Order Comment: CLEAN CATCH Performed By: #### L [id number] #### [facility] [address] [place], [address] GLUCOSE, UR Normal Normal Normal [facility] Comment on above: Order Comment: CLEAN CATCH Performed By: #### L [id number] #### [facility] [address] [place], [address] KETONE UR Negative Normal Negative [facility] Comment on above: Order Comment: CLEAN CATCH Performed By: #### L [id number] #### [facility] [address] [place], [address] LEUK ESTERASE Negative Normal Negative [facility] Comment on above: Order Comment: CLEAN CATCH Performed By: #### L [id number] #### [facility] [address] [place], [address] Nitrite Ql (U) Negative Normal Negative [facility] Comment on above: Order Comment: CLEAN CATCH Performed By: #### L [id number] #### [facility] [address] [place], [address] OCCULT BLOOD-UR Negative Normal Negative [facility] Comment on above: Order Comment: CLEAN CATCH Performed By: #### L [id number] #### [facility] [address] [place], [address] pH UR 6.5 Normal 5.0 - 8.0 [facility] Comment on above: Order Comment: CLEAN CATCH Performed By: #### L [id number] #### [facility] [address] [place], [address] PROT DIPSTX Negative Normal Negative [facility] Comment on above: Order Comment: CLEAN CATCH Performed By: #### L [id number] #### [facility] [address] [place], [address] SP.GR. DIPSTX 1.010 Normal 1.002-1.030 [facility] Comment on above: Order Comment: CLEAN CATCH Performed By: #### L [id number] #### [facility] [address] [place], [address] UROBILI Normal Normal Normal [facility] Comment on above: Order Comment: CLEAN CATCH Performed By: #### L [id number] #### [facility] [address] [place], [address] SCRN MAMM (CAD)W/CHRISTOPHER BILATo n 04-02-2024 SCRN MAMM (CAD)W/CHRISTOPHER BILAT [facility] Imaging Services [address] [place] [address] SCRN MAMM (CAD)W/CHRISTOPHER BILAT MR#: [id number] Acct: [id number] Name: ALMA ADEN Rep #: [id number] : 1980 F 43 From: Sukhdeep mosqueda MD PCP: Dr. 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 [id number] Electronically Signed: Sukhdeep Manzano MD at 9:37 EDT , CC: ZAFAR Coleman; Dr. 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, [address] Absolute Neut 2.7 X10 3/uL Normal 2.0-7.7 [facility] Comment on above: Performed By: #### L 506.0400, L501.9520 #### [facility] [address] [place], [address] Basophils/100 WBC (Bld) 0.7 % Normal 0-1 [facility] Comment on above: Performed By: #### L 506.0400, L501.9520 #### [facility] [address] [place], [address] Eosinophils/100 WBC (Bld) 2.4 % Normal 0-5 [facility] Comment on above: Performed By: #### L 506.0400, L501.9520 #### [facility] [address] [place], [address] Erythrocyte distribution width (RBC) [Ratio] 12.2 % Normal 11.6-14.6 [facility] Comment on above: Performed By: #### L 506.0400, L501.9520 #### [facility] [address] [place], [address] Hematocrit (Bld) [Volume fraction] 38.3 % Normal 37-47 [facility] Comment on above: Performed By: #### L 506.0400, L501.9520 #### [facility] [address] [place], [address] Hemoglobin (Bld) [Mass/Vol] 12.2 g/dL Normal 12.0-15.0 [facility] Comment on above: Performed By: #### L 506.0400, [id number] #### [facility] [address] [place], [address] IG% 0.200 Normal 0.0-0.9 [facility] Comment on above: Result Comment: IG% - Immature Granulocytes (promyelocytes, myelocytes and metamyelocytes) > 1% indicates that a LEFT SHIFT is Present. Performed By: #### L 506.0400, L501.9520 #### [facility] [address] [place], [address] Lymphocytes/100 WBC (Bld) 41.8 % High 19-41 [facility] Comment on above: Performed By: #### L 506.0400, L501.9520 #### [facility] [address] [place], [address] MCH (RBC) [Entitic mass] 31.3 pg Normal 27.0-32.0 [facility] Comment on above: Performed By: #### L 506.0400, [id number] #### [facility] [address] [place], [address] MCHC (RBC) [Mass/Vol] 31.9 g/dL Low 32-36 [facility] Comment on above: Performed By: #### L 506.0400, [id number] #### [facility] [address] [place], [address] MCV (RBC) [Entitic vol] 98.2 fL Normal 81-99 [facility] Comment on above: Performed By: #### L 506.0400, L5.20 #### [facility] [address] [place], [address] Monocytes/100 WBC (Bld) 7.8 % Normal 0-10 [facility] Comment on above: Performed By: #### L 506.0400, [id number] #### [facility] [address] [place], [address] Neutrophils/100 WBC (Bld) 47.1 % Normal 47-70 [facility] Comment on above: Performed By: #### L 506.0400, L501.20 #### [facility] [address] [place], [address] Nucleated RBC (Bld) [#/Vol] 0 10*3/uL Normal 0-5 [facility] Comment on above: Performed By: #### L 506.0400, L5.20 #### [facility] [address] [place], [address] Platelet mean volume (Bld) [Entitic vol] 9.7 fL Normal 6.2-12.0 [facility] Comment on above: Performed By: #### L 506.0400, L5.20 #### [facility] [address] [place], [address] Platelets (Bld) [#/Vol] 398 10*3/uL Normal 150-450 [facility] Comment on above: Performed By: #### L 506.0400, L501.20 #### [facility] [address] [place], [address] RBC (Bld) [#/Vol] 3.90 10*6/uL Low 4.2-5.4 [facility] Comment on above: Performed By: #### L 506.0400, L501.20 #### [facility] [address] [place], [address] RDW SD 44.2 fl High 35.1-43.9 [facility] Comment on above: Performed By: #### L 506.0400, [id number] #### [facility] [address] [place], [address] WBC (Bld) [#/Vol] 5.7 10*3/uL Normal 4.4-11.0 [facility] Comment on above: Performed By: #### L 506.0400, L501.9520 #### [facility] [address] [place], [address] CRPon 04-01-2024 C-REACTIVE PROT 5.25 mg/L High 0.0-3.0 [facility] Comment on above: Result Comment: C-Re active Protein (CRP) provides useful information for the diagnosis, therapy and monitoring of inflammatory processes and associated diseases. For the evaluation of Relative Risk for Cardiovascular Disease, a High Sensitivity CRP (HSCRP) should be ordered. Performed By: #### L 506.0400, L501.9520 #### [facility] [address] [place], [address] Erythrocyte Sed Rateon 04-01 SED RATE 15 mm/hr Normal 0-30 [facility] Comment on above: Performed By: #### L 506.0400, L501.9520 #### [facility] [address] [place], [address] Liver Profileon 04-01-2024 Albumin [Mass/Vol] 3.7 g/dL Normal 3.2-5.0 [facility] Comment on above: Performed By: #### L 506.0400, L501.9520 #### [facility] [address] [place], [address] ALK P 59 U/L Normal 45-117 [facility] Comment on above: Performed By: #### L 506.0400, L501.9520 #### [facility] [address] [place], [address] ALT [Catalytic activity/Vol] 22 U/L Normal 13-56 [facility] Comment on above: Performed By: #### L 506.0400, L501.9520 #### [facility] [address] [place], [address] AST [Catalytic activity/Vol] 13 U/L Low 15-37 [facility] Comment on above: Performed By: #### L 506.0400, L501.9520 #### [facility] [address] [place], [address] Bilirubin [Mass/Vol] 0.40 mg/dL Normal 0.20-1.00 [facility] Comment on above: Result Comment: For patients on eltrombopag therapy, use of Dimension [place] TBIL is not recommended. Performed By: #### L 506.0400, L501.9520 #### [facility] [address] [place], [address] Bilirubin.direct [Mass/Vol] 0.08 mg/dL Normal 0.00-0.30 [facility] Comment on above: Performed By: #### L 506.0400, L501.9520 #### [facility] [address] [place], [address] Globulin (S) [Mass/Vol] 3.8 g/dL Normal 2.2-4.2 [facility] Comment on above: Performed By: #### L 506.0400, L501.9520 #### [facility] [address] [place], [address] T PROT 7.5 g/dL Normal 6.4-8.2 [facility] Comment on above: Performed By: #### L 506.0400, L501.9520 #### [facility] [address] [place], [address] Serum Creatinine AND GFRon 0 04-01-2024 Creatinine [Mass/Vol] 0.85 mg/dL Normal 0.55-1.02 [facility] Comment on above: Result Comment: The validity of the calculated GFR GFRAA in patients over 70 years has not been determined. Clinical correlation is essential. Performed By: #### L 506.0400, L501.9520 #### [facility] [address] [place], [place], [address] EST GFR - AA 95 mL/min Normal >60 [facility] Comment on above: Result Comment: Afri can Grenadian GFR Calc Performed By: #### L 506.0400, L501.9520 #### [facility] [address] [place], [place], [address] GFR/1.73 sq M.predicted among non-blacks MDRD (S/P/Bld) [Vol rate/Area] 79 mL/min/{1.73_m2} Normal >60 [facility] Comment on above: Result Comment: Non- GFR Calc Performed By: #### L 506.0400, L517.9520 #### [facility] [address] 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 Last PAP: 2017; s/p hysterectomy. History of (more content not included)... Normal [facility] T4 Free Directon 02-13-2024 T4 FREE DIRECT 1.20 ng/dL Normal 0.76-1.46 [facility] Comment on above: Performed By: #### L 506.0400, L501.9520 #### [facility] [address] [place], [place], [address] Thyroid Stim Hormone (TSH)on 02-13-2024 TSH 1.68 uIU/mL Normal 0.358-3.74 [facility] Comment on above: Performed By: #### L 506.0400, L501.9520 #### [facility] [address] [place], [address] Basophil percentageOrdered B y: Liliana Bangura on 10-17-2023 Hemoglobin (Bld) [Mass/Vol] 13.1 g/dL 12.0-15.0 [facility] WBC (Bld) [#/Vol] 6.5 10*3/uL 4.4-11.0 [facility] Determination of erythrocyte mean corpuscular volume (MCV)Ordered By: Liliana Bangura on 10-17-2023 MCV (RBC) [Entitic vol] 94.8 fL 81-99 [facility] Erythrocyte distribution wid th ratioOrdered By: Liliana Bangura on 10-17-2023 Erythrocyte distribution width (RBC) [Ratio] 12.5 % 11.6-14.6 [facility] Erythrocyte distribution wid th standard deviationOrdered By: Liliana Bangura on 10-17-2023 Erythrocyte distribution width (RBC) [Entitic vol] 43.4 fL 35.1-43.9 [facility] Hematocrit Auto (Bld) [Volum e fraction]Ordered By: Liliana Bangura on 10-17-2023 Hematocrit (Bld) [Volume fraction] 40.5 % 37-47 [facility] Iron measurement (mass/mass) Ordered By: Liliana Bangura on 10-17-2023 Iron (Unsp spec) [Mass/Mass] 69 ug/dL 50-170 [facility] - Chemistry and C hemistry - challengeOrdered By: Liliana Bangura on 10-17-2023 Cobalamin (Vitamin B12) [Mass/Vol] 890 pg/mL 211-911 [facility] Ferritin [Mass/Vol] 72 ng/mL 8-252 [facility] - Hematology and Cell countsOrdered By: Liliana Bangura on 10-17-2023 MCH (RBC) [Entitic mass] 30.7 pg 27.0-32.0 [facility] MCHC (RBC) [Mass/Vol] 32.3 g/dL 32-36 [facility] Platelet mean volume (Bld) [Entitic vol] 9.2 fL 6.2-12.0 [facility] Platelets (Bld) [#/Vol] 336 10*3/uL 150-450 [facility] No Panel InformationOrdered By: Liliana Bangura on 10-17-2023 Total Iron Binding Capacity 394 ug/dL 250-450 [facility] RBC Auto (Bld) [#/Vol]Ordere d By: Liliana Bangura on 10-17-2023 RBC (Bld) [#/Vol] 4.27 10*6/uL 4.2-5.4 [facility] No Panel InformationOrdered By: STEVEN BOLES on 10-12-2023 Hepatitis B Surface Antigen Non-Reactive Nonreactive [facility] Hepatitis C Antibody Non-Reactive Nonreactive [facility] Comment on above: Non Reactive: < 0.8 Equivocal: >/= 0.8 to < 1.0 Reactive: >/= 1.0The CDC requires that a reactive/equivocal HCV antibody result be sent out for confirmation. HCV Quant by PCR testing. Qualitative QuantiFERON-TB g old in tube testOrdered By: STEVEN BOLES on 10-12-2023 M. tuberculosis tuberculin stim IFN-g Ql (Bld) 0.07 IU/mL . [facility] Serum hepatitis B virus core antibody detectionOrdered By: STEVEN BOLES on 10-12-2023 HBV core Ab Ql (S) Negative Negative [facility] Comment on above: Performed at: [address] [id number] Director: Levi Covarrubias PhD, Phone: [phone] Thin prep Papanicolaou smear with manual screeningOrdered By: STEVEN BOLES on 10-12-2023 Thin prep Papanicolaou smear with manual screening Comment . [facility] Comment on above: QuantiFERON-TB Gold [...] smear with manual screening 0.06 IU/mL . [facility] Thin prep Papanicolaou smear with manual screening > 10.00 IU/mL . [facility] Thin prep Papanicolaou smear with manual screening Negative Negative [facility] Comment on above: No response [...] Auto (Unsp spec) [#/Vol] 3.56 10*3/uL 0.83-4.51 [facility] Automated lymphocyte count a s percentage of total leukocyteson 08-17-2023 Lymphocytes/100 WBC Auto (Unsp spec) 32.5 % 19-41 [facility] Basophil percentageon 2023 Basophils/100 WBC (Bld) 0.7 % 0-1 [facility] Bilirubin [Mass/Vol] 0.20 mg/dL 0.20-1.00 [facility] Comment on above: For patients on eltr ombopag therapy, use of Dimension [place] TBIL is not recommended. Eosinophils/100 WBC (Bld) 1.3 % 0-5 [facility] Hemoglobin (Bld) [Mass/Vol] 11.5 g/dL 12.0-15.0 [facility] Monocytes/100 WBC (Bld) 6.8 % 0-10 [facility] Neutrophils (Bld) [#/Vol] 6.4 10*3/uL 2.0-7.7 [facility] Neutrophils/100 WBC (Bld) 58.2 % 47-70 [facility] Protein [Mass/Vol] 7.4 g/dL 6.4-8.2 [facility] WBC (Bld) [#/Vol] 11.0 10*3/uL 4.4-11.0 [facility] Determination of erythrocyte mean corpuscular volume (MCV)on 08-17-2023 MCV (RBC) [Entitic vol] 97.3 fL 81-99 [facility] Direct bilirubinon Bilirubin.direct [Mass/Vol] 0.08 mg/dL 0.00-0.30 [facility] Erythrocyte distribution wid th ratioon 08-17-2023 Erythrocyte distribution width (RBC) [Ratio] 13.1 % 11.6-14.6 [facility] Erythrocyte distribution wid th standard deviationon 08-17-2023 Erythrocyte distribution width (RBC) [Entitic vol] 46.6 fL 35.1-43.9 [facility] Erythrocyte sedimentation ra avel 08-17-2023 ESR (Bld) [Velocity] 11 mm/h 0-30 [facility] Hematocrit Auto (Bld) [Volum e fraction]on 08-17-2023 Hematocrit (Bld) [Volume fraction] 36.5 % 37-47 [facility] Immature granulocytes/100 WB C Auto (Bld)on 08-17-2023 Immature granulocytes/100 WBC (Bld) 0.500 % 0.0-0.9 [facility] Comment on above: IG% - Immature Granu locytes (promyelocytes, myelocytes and metamyelocytes) > 1% indicates that a LEFT SHIFT is Present. Laboratory - Chemistry and C hemistry - challengeon 08-17-2023 ALP [Catalytic activity/Vol] 73 U/L 45-117 [facility] ALT [Catalytic activity/Vol] 46 U/L 13-56 [facility] Globulin (S) [Mass/Vol] 3.8 g/dL 2.2-4.2 [facility] - Hematology and Cell countson 08-17-2023 MCH (RBC) [Entitic mass] 30.7 pg 27.0-32.0 [facility] MCHC (RBC) [Mass/Vol] 31.5 g/dL 32-36 [facility] Nucleated RBC/100 WBC (Bld) [Ratio] 0 % 0-5 [facility] Platelets (Bld) [#/Vol] 306 10*3/uL 150-450 [facility] No Panel Informationon 08-17 C-Reactive Protein Extended Range 4.60 mg/L 0.0-3.0 [facility] Comment on above: C-Reactive Protein ( CRP) provides useful information for thediagnosis, therapy and monitoring of inflammatory processesand associated diseases. For the evaluation of Relative Riskfor Cardiovascular Disease, a High Sensitivity CRP (HSCRP)should be ordered. Estimated GFR (MDRD) Amer 91 mL/min >60 [facility] Comment on above: GFR Calc Estimated GFR (MDRD) Non-Af Amer 76 mL/min >60 [facility] Comment on above: Non- GFR Calc Platelet mean volume Cedric-Ec ker (Bld) [Entitic vol]on 08-17-2023 Platelet mean volume (Bld) [Entitic vol] 8.7 fL 6.2-12.0 [facility] RBC Auto (Bld) [#/Vol]on RBC (Bld) [#/Vol] 3.75 10*6/uL 4.2-5.4 [facility] Serum or plasma creatinine m easurement (mass/volume)on 08-17-2023 Creatinine [Mass/Vol] 0.88 mg/dL 0.55-1.02 [facility] Comment on above: The validity of the calculated GFR & GFRAA in patients over 70 years has not been determined. Clinical correlation is essential. Thin prep Papanicolaou smear with manual screeningon 08-17-2023 Thin prep Papanicolaou smear with manual screening 3.6 g/dL 3.2-5.0 [facility] Thin prep Papanicolaou smear with manual screening 17 U/L 15-37 [facility] Absolute lymphocyte countOrd ered By: Cali Lou on 06-16-2023 Lymphocytes Auto (Unsp spec) [#/Vol] 1.93 10*3/uL 0.83-4.51 [facility] Basophil percentageOrdered B y: Cali Lou on 06-16-2023 Basophils/100 WBC (Bld) 0.5 % 0-1 [facility] Bilirubin [Mass/Vol] 0.30 mg/dL 0.20-1.00 [facility] Comment on above: For patients on eltr ombopag therapy, use of Dimension [place] TBIL is not recommended. Chloride [Moles/Vol] 105 mmol/L 98-107 [facility] Eosinophils/100 WBC (Bld) 2.2 % 0-5 [facility] Glucose [Mass/Vol] 80 mg/dL 74-106 [facility] Neutrophils (Bld) [#/Vol] 2.9 10*3/uL 2.0-7.7 [facility] Neutrophils/100 WBC (Bld) 52.2 % 47-70 [facility] Potassium [Moles/Vol] 4.0 mmol/L 3.5-5.1 [facility] Protein [Mass/Vol] 7.2 g/dL 6.4-8.2 [facility] Sodium [Moles/Vol] 136 mmol/L 136-145 [facility] WBC (Bld) [#/Vol] 5.6 10*3/uL 4.4-11.0 [facility] Blood erythrocytes count (nu mber/volume)Ordered By: Cali Lou on 06-16-2023 RBC (Bld) [#/Vol] 3.91 10*6/uL 4.2-5.4 [facility] Blood hemoglobin measurement (mass/volume)Ordered By: Cali Lou on 06-16-2023 Hemoglobin (Bld) [Mass/Vol] 12.1 g/dL 12.0-15.0 [facility] Blood lymphocytes/100 leukoc ytesOrdered By: Cali Lou on 06-16-2023 Lymphocytes/100 WBC (Bld) 34.6 % 19-41 [facility] [facility] Blood monocytes/100 leukocyt esOrdered By: Cali Lou on 06-16-2023 Monocytes/100 WBC (Bld) 10.1 % 0-10 [facility] Blood platelet mean volumeOr dered By: Cali Lou on 06-16-2023 Platelet mean volume (Bld) [Entitic vol] 9.3 fL 6.2-12.0 [facility] Determination of erythrocyte mean corpuscular volume (MCV)Ordered By: Cali Lou on 06-16-2023 MCV (RBC) [Entitic vol] 96.2 fL 81-99 [facility] Direct bilirubinOrdered By: Cali Lou on 06-16-2023 Bilirubin.direct [Mass/Vol] 0.08 mg/dL 0.00-0.30 [facility] Hematocrit Auto (Bld) [Volum e fraction]Ordered By: Cali Lou on 06-16-2023 Hematocrit (Bld) [Volume fraction] 37.6 % 37-47 [facility] Laboratory - Chemistry and C hemistry - challengeOrdered By: Cali Lou on 06-16-2023 ALP [Catalytic activity/Vol] 54 U/L 45-117 [facility] ALT [Catalytic activity/Vol] 33 U/L 13-56 [facility] CO2 [Moles/Vol] 27.0 mmol/L 21.0-32.0 [facility] Globulin (S) [Mass/Vol] 3.5 g/dL 2.2-4.2 [facility] Urea nitrogen/Creatinine [Mass ratio] 13.2 mg/mg 10-20 [facility] Laboratory - Hematology and Cell countsOrdered By: Cali Lou on 06-16-2023 Erythrocyte distribution width (RBC) [Entitic vol] 46.5 fL 35.1-43.9 [facility] Erythrocyte distribution width (RBC) [Ratio] 13.2 % 11.6-14.6 [facility] Immature granulocytes/100 WBC (Bld) 0.400 % 0.0-0.9 [facility] Comment on above: IG% - Immature Granu locytes (promyelocytes, myelocytes and metamyelocytes) > 1% indicates that a LEFT SHIFT is Present. MCH (RBC) [Entitic mass] 30.9 pg 27.0-32.0 [facility] Nucleated RBC/100 WBC (Bld) [Ratio] 0 % 0-5 [facility] MCHC Auto (RBC) [Mass/Vol]Or dered By: Cali Lou on 06-16-2023 MCHC (RBC) [Mass/Vol] 32.2 g/dL 32-36 [facility] No Panel InformationOrdered By: Cali Lou on 06-16-2023 Estimated GFR (MDRD) Amer 108 mL/min >60 [facility] Comment on above: GFR Calc Estimated GFR (MDRD) Non-Af Amer 89 mL/min >60 [facility] Comment on above: Non- GFR Calc Parathyroid Hormone (Intact) 113.6 pg/mL 18.4-80.1 [facility] Thyroid Stimulating Hormone (TSH) 1.93 uIU/mL 0.358-3.74 [facility] Vitamin D 25-Hydroxy 40.8 ng/mL [facility] Comment on above: Vitamin D 25(OH) Sta tus Range Deficiency <20 ng/mL (50nmol/L) Insufficiency 20 - 30 ng/mL (50 - 75 nmol/L) Sufficiency 30 - 100 ng/mL (75 - 250 nmol/L) Toxicity >100 ng/mL (>250 nmol/L) Platelets bldOrdered By: Nito Lou on 06-16-2023 Platelets (Bld) [#/Vol] 334 10*3/uL 150-450 [facility] Serum or plasma albumin sancho urement (mass/volume)Ordered By: Cali Lou on 06-16-2023 Albumin [Mass/Vol] 3.7 g/dL 3.2-5.0 [facility] Serum or plasma albumin/glob ulin mass ratioOrdered By: Cali Lou on 06-16-2023 Albumin/Globulin [Mass ratio] 1.1 {ratio} 0.9-2.4 [facility] Serum or plasma calcium sancho urement (mass/volume)Ordered By: Cali Lou on 06-16-2023 Calcium [Mass/Vol] 9.0 mg/dL 8.5-10.1 [facility] Serum or plasma creatinine m easurement (mass/volume)Ordered By: Cali Lou on 06-16-2023 Creatinine [Mass/Vol] 0.76 mg/dL 0.55-1.02 [facility] Comment on above: The validity of the calculated GFR & GFRAA in patients over 70 years has not been determined. Clinical correlation is essential. Serum or plasma urea nitroge n measurement (mass/volume)Ordered By: Cali Lou on 06-16-2023 Urea nitrogen [Mass/Vol] 10 mg/dL 7-18 [facility] Thin prep Papanicolaou smear with manual screeningOrdered By: Cali Lou on 06-16-2023 Thin prep Papanicolaou smear with manual screening 19 U/L 15-37 [facility] Thin prep Papanicolaou smear with manual screening 4 5-15 [facility] Whole blood hemoglobin A1c/t otal hemoglobin ratio (mass fraction)Ordered By: Wyatt Marcelo on 06-16-2023 HbA1c (Bld) [Mass fraction] 5.8 % 3.8-5.6 [facility] Comment on above: Normal < 5.7 % Predi abetic 5.7 - 6.4 % Diabetic >or= 6.5 % Please note range changes. Absolute lymphocyte countOrd ered By: Kane Fisher on 06-11-2023 Lymphocytes Auto (Unsp spec) [#/Vol] 0.54 10*3/uL 0.83-4.51 [facility] Basophil percentageOrdered B y: Kane Fisher on 06-11-2023 Basophils/100 WBC (Bld) 0.3 % 0-1 [facility] Chloride [Moles/Vol] 104 mmol/L 98-107 [facility] Eosinophils/100 WBC (Bld) 1.0 % 0-5 [facility] Glucose [Mass/Vol] 105 mg/dL 74-106 [facility] Comment on above: Fasting Glucose resu lt from 100 to 125 mg/dL suggests IMPAIRED HOMEOSTASIS per A.D.A. criteria. Neutrophils (Bld) [#/Vol] 5.0 10*3/uL 2.0-7.7 [facility] Neutrophils/100 WBC (Bld) 83.2 % 47-70 [facility] Potassium [Moles/Vol] 4.1 mmol/L 3.5-5.1 [facility] Comment on above: Moderate Hemolysis, Result may be falsely increased. Sodium [Moles/Vol] 137 mmol/L 136-145 [facility] WBC (Bld) [#/Vol] 6.0 10*3/uL 4.4-11.0 [facility] Blood erythrocytes count (nu mber/volume)Ordered By: Kane Fisher on 06-11-2023 RBC (Bld) [#/Vol] 4.23 10*6/uL 4.2-5.4 [facility] Blood hemoglobin measurement (mass/volume)Ordered By: Kane Fisher on 06-11-2023 Hemoglobin (Bld) [Mass/Vol] 13.1 g/dL 12.0-15.0 [facility] Blood lymphocytes/100 leukoc ytesOrdered By: Kane Fisher on 06-11-2023 Lymphocytes/100 WBC (Bld) 9.1 % 19-41 [facility] Blood manual differential co mment interpretation (narrative result)Ordered By: Kane Fisher on 06-11-2023 Manual differential comment Collin (Bld) [Interp] SCANNED [facility] Blood monocytes/100 leukocyt esOrdered By: Kane Fisher on 06-11-2023 Monocytes/100 WBC (Bld) 6.1 % 0-10 [facility] Blood platelet mean volumeOr dered By: Kane Fisher on 06-11-2023 Platelet mean volume (Bld) [Entitic vol] 9.7 fL 6.2-12.0 [facility] Determination of erythrocyte mean corpuscular volume (MCV)Ordered By: Kane Fisher on 06-11-2023 MCV (RBC) [Entitic vol] 95.5 fL 81-99 [facility] Hematocrit Auto (Bld) [Volum e fraction]Ordered By: Kane Fisher on 06-11-2023 Hematocrit (Bld) [Volume fraction] 40.4 % 37-47 [facility] Laboratory - Chemistry and C hemistry - challengeOrdered By: Kane Fisher on 06-11-2023 CO2 [Moles/Vol] 27.0 mmol/L 21.0-32.0 [facility] Urea nitrogen/Creatinine [Mass ratio] 23.1 mg/mg 10-20 [facility] Laboratory - Hematology and Cell countsOrdered By: Kane Fisher on 06-11-2023 Erythrocyte distribution width (RBC) [Entitic vol] 46.3 fL 35.1-43.9 [facility] Erythrocyte distribution width (RBC) [Ratio] 13.2 % 11.6-14.6 [facility] Immature granulocytes/100 WBC (Bld) 0.300 % 0.0-0.9 [facility] Comment on above: IG% - Immature Granu locytes (promyelocytes, myelocytes and metamyelocytes) > 1% indicates that a LEFT SHIFT is Present. MCH (RBC) [Entitic mass] 31.0 pg 27.0-32.0 [facility] Nucleated RBC/100 WBC (Bld) [Ratio] 0 % 0-5 [facility] MCHC Auto (RBC) [Mass/Vol]Or dered By: Kane Fisher on 06-11-2023 MCHC (RBC) [Mass/Vol] 32.4 g/dL 32-36 [facility] No Panel InformationOrdered By: Kane Fisher on 06-11-2023 Estimated Creatinine Clearance Calc 82.90 ml/min [facility] Estimated GFR (MDRD) Amer 88 mL/min >60 [facility] Comment on above: GFR Calc Estimated GFR (MDRD) Non-Af Amer 73 mL/min >60 [facility] Comment on above: Non- GFR Calc Platelets bldOrdered By: Jules Fisher on 06-11-2023 Platelets (Bld) [#/Vol] 253 10*3/uL 150-450 [facility] Serum or plasma calcium sancho urement (mass/volume)Ordered By: Kane Fisher on 06-11-2023 Calcium [Mass/Vol] 9.2 mg/dL 8.5-10.1 [facility] Serum or plasma creatinine m easurement (mass/volume)Ordered By: Kane Fisher on 06-11-2023 Creatinine [Mass/Vol] 0.91 mg/dL 0.55-1.02 [facility] Comment on above: The validity of the calculated GFR & GFRAA in patients over 70 years has not been determined. Clinical correlation is essential. Serum or plasma urea nitroge n measurement (mass/volume)Ordered By: Kane Fisher on 06-11-2023 Urea nitrogen [Mass/Vol] 21 mg/dL 7-18 [facility] Thin prep Papanicolaou smear with manual screeningOrdered By: Knae Fisher on 06-11-2023 Thin prep Papanicolaou smear with manual screening 6 5-15 [facility] Absolute lymphocyte countOrd ered By: HEALTH ASSESSMENT on 05-09-2023 Lymphocytes Auto (Unsp spec) [#/Vol] 2.17 10*3/uL 0.83-4.51 [facility] Absolute reticulocyte countO rdered By: HEALTH ASSESSMENT on 05-09-2023 Reticulocytes (Bld) [#/Vol] 0.00 10*3/uL 0-5 [facility] Basophil percentageOrdered B y: HEALTH ASSESSMENT on 05-09-2023 Basophil percentage 3.1 mg/dL 2.5-4.9 [facility] Bilirubin [Mass/Vol] 0.20 mg/dL 0.20-1.00 [facility] Comment on above: For patients on eltr ombopag therapy, use of Dimension [place] TBIL is not recommended. Chloride [Moles/Vol] 107 mmol/L 98-107 [facility] Cholesterol [Mass/Vol] 206 mg/dL <200 [facility] Comment on above: <200 mg/dL Desirable 200-240 mg/dL Borderline >240 mg/dL High Risk Glucose [Mass/Vol] 111 mg/dL 74-106 [facility] Comment on above: Fasting Glucose resu lt from 100 to 125 mg/dL suggests IMPAIRED HOMEOSTASIS per A.D.A. criteria. LDH [Catalytic activity/Vol] 206 U/L 84-246 [facility] Neutrophils (Bld) [#/Vol] 2.7 10*3/uL 2.0-7.7 [facility] Potassium [Moles/Vol] 4.0 mmol/L 3.5-5.1 [facility] Protein [Mass/Vol] 7.1 g/dL 6.4-8.2 [facility] Sodium [Moles/Vol] 139 mmol/L 136-145 [facility] Triglyceride [Mass/Vol] 108 mg/dL <199 [facility] Comment on above: The drugs N-Acetylcy steine and Metamizole may falsely depress this assay.Serum Triglycerides Reference Interval Normal <150 mg/dL Borderline high 150 - 199 mg/dL High 200 - 499 mg/dL Very High > or = 500 mg/dL WBC (Bld) [#/Vol] 5.4 10*3/uL 4.4-11.0 [facility] Bilirubin Test strip Ql (U)O rdered By: HEALTH ASSESSMENT on 05-09-2023 Bilirubin Ql (U) 1 mg/dL Negative [facility] Comment on above: COLOR OF URINE MAY A FFECT DIPSTICK RESULTS. Blood erythrocytes count (nu mber/volume)Ordered By: HEALTH ASSESSMENT on 05-09-2023 RBC (Bld) [#/Vol] 3.78 10*6/uL 4.2-5.4 [facility] Blood hemoglobin measurement (mass/volume)Ordered By: HEALTH ASSESSMENT on 05-09-2023 Hemoglobin (Bld) [Mass/Vol] 11.6 g/dL 12.0-15.0 [facility] Blood platelet mean volumeOr dered By: HEALTH ASSESSMENT on 05-09-2023 Platelet mean volume (Bld) [Entitic vol] 9.5 fL 6.2-12.0 [facility] Determination of erythrocyte mean corpuscular volume (MCV)Ordered By: HEALTH ASSESSMENT on 05-09-2023 MCV (RBC) [Entitic vol] 97.4 fL 81-99 [facility] Direct bilirubinOrdered By: HEALTH ASSESSMENT on 05-09-2023 Bilirubin.direct [Mass/Vol] 0.06 mg/dL 0.00-0.30 [facility] Hematocrit Auto (Bld) [Volum e fraction]Ordered By: HEALTH ASSESSMENT on 05-09-2023 Hematocrit (Bld) [Volume fraction] 36.8 % 37-47 [facility] Ketones Test strip Ql (U)Ord ered By: HEALTH ASSESSMENT on 05-09-2023 Ketones Ql (U) 5 mg/dl Negative [facility] Laboratory - Chemistry and C hemistry - challengeOrdered By: HEALTH ASSESSMENT on 05-09-2023 ALP [Catalytic activity/Vol] 63 U/L 45-117 [facility] ALT [Catalytic activity/Vol] 36 U/L 13-56 [facility] Cholesterol.total/Cho lesterol in HDL [Mass ratio] 3.60 {ratio} [facility] CO2 [Moles/Vol] 28.0 mmol/L 21.0-32.0 [facility] Globulin (S) [Mass/Vol] 3.6 g/dL 2.2-4.2 [facility] Urea nitrogen/Creatinine [Mass ratio] 15.9 mg/mg 10-20 [facility] Laboratory - Hematology and Cell countsOrdered By: HEALTH ASSESSMENT on 05-09-2023 Erythrocyte distribution width (RBC) [Entitic vol] 45.2 fL 35.1-43.9 [facility] Erythrocyte distribution width (RBC) [Ratio] 12.7 % 11.6-14.6 [facility] MCH (RBC) [Entitic mass] 30.7 pg 27.0-32.0 [facility] Nucleated RBC/100 WBC (Bld) [Ratio] 0 % 0-5 [facility] MCHC Auto (RBC) [Mass/Vol]Or dered By: HEALTH ASSESSMENT on 05-09-2023 MCHC (RBC) [Mass/Vol] 31.5 g/dL 32-36 [facility] Nitrite Test strip Ql (U)Ord ered By: HEALTH ASSESSMENT on 05-09-2023 Nitrite Ql (U) Negative Negative [facility] No Panel InformationOrdered By: HEALTH ASSESSMENT on 05-09-2023 Estimated GFR (MDRD) Amer 91 mL/min >60 [facility] Comment on above: GFR Calc Estimated GFR (MDRD) Non-Af Amer 76 mL/min >60 [facility] Comment on above: Non- GFR Calc Platelets bldOrdered By: MAR LT ASSESSMENT on 05-09-2023 Platelets (Bld) [#/Vol] 302 10*3/uL 150-450 [facility] Protein Test strip Ql (U)Ord ered By: HEALTH ASSESSMENT on 05-09-2023 Protein Ql (U) 30 mg/dl Negative [facility] Segmented neutrophils/100 WB C Auto (Bld)Ordered By: HEALTH ASSESSMENT on 05-09-2023 Segmented neutrophils/100 WBC (Bld) 48.7 % 47-70 [facility] Serum or plasma albumin sancho urement (mass/volume)Ordered By: HEALTH ASSESSMENT on 05-09-2023 Albumin [Mass/Vol] 3.5 g/dL 3.2-5.0 [facility] Serum or plasma albumin/glob ulin mass ratioOrdered By: HEALTH ASSESSMENT on 05-09-2023 Albumin/Globulin [Mass ratio] 1.0 {ratio} 0.9-2.4 [facility] Serum or plasma calcium sancho urement (mass/volume)Ordered By: HEALTH ASSESSMENT on 05-09-2023 Calcium [Mass/Vol] 9.5 mg/dL 8.5-10.1 [facility] Serum or plasma cholesterol in HDL measurement (mass/volume)Ordered By: HEALTH ASSESSMENT on 05-09-2023 Cholesterol in HDL [Mass/Vol] 57 mg/dL >40 [facility] Comment on above: The drugs N-Acetylcy steine and Metamizole may falsely depress this assay. Reference Range HDL <40 mg/dL Low HDL Cholesterol HDL >or= 60 mg/dL High HDL Cholesterol Serum or plasma cholesterol in VLDL measurement (mass/volume)Ordered By: HEALTH ASSESSMENT on 05-09-2023 Cholesterol in VLDL [Mass/Vol] 22 mg/dL 5-40 [facility] Serum or plasma creatinine m easurement (mass/volume)Ordered By: HEALTH ASSESSMENT on 05-09-2023 Creatinine [Mass/Vol] 0.88 mg/dL 0.55-1.02 [facility] Comment on above: The validity of the calculated GFR & GFRAA in patients over 70 years has not been determined. Clinical correlation is essential. Serum or plasma low density lipoprotein (LDL) cholesterol measurement (mass/volume)Ordered By: HEALTH ASSESSMENT on 05-09-2023 Cholesterol in LDL [Mass/Vol] 127 mg/dL 0-130 [facility] Serum or plasma urea nitroge n measurement (mass/volume)Ordered By: HEALTH ASSESSMENT on 05-09-2023 Urea nitrogen [Mass/Vol] 14 mg/dL 7-18 [facility] Serum or plasma uric acid me asurement (mass/volume)Ordered By: HEALTH ASSESSMENT on 05-09-2023 Urate [Mass/Vol] 5.7 mg/dL 2.6-6.0 [facility] Comment on above: The drugs N-Acetylcy steine and Metamizole may falsely depress this assay. Thin prep Papanicolaou smear with manual screeningOrdered By: HEALTH ASSESSMENT on 05-09-2023 Thin prep Papanicolaou smear with manual screening 24 U/L 15-37 [facility] Thin prep Papanicolaou smear with manual screening 4 5-15 [facility] Urine blood detectionOrdered By: HEALTH ASSESSMENT on 05-09-2023 RBC Ql (U) 10 /ul Negative [facility] Urine clarityOrdered By: HEA LTH ASSESSMENT on 05-09-2023 Clarity (U) Sl. Cloudy Clear [facility] Urine color determinationOrd ered By: HEALTH ASSESSMENT on 05-09-2023 Color (U) Yellow Yellow [facility] Urine glucose detectionOrder ed By: HEALTH ASSESSMENT on 05-09-2023 Glucose Ql (U) Normal mg/dl Normal [facility] Urine leukocyte esterase det ection by dipstickOrdered By: HEALTH ASSESSMENT on 05-09-2023 Leukocyte esterase Test strip Ql (U) 25 /ul Negative [facility] Urine pHOrdered By: HEALTH A SSESSMENT on 05-09-2023 pH (U) 5.0 [pH] 5.0 - 8.0 [facility] Urine specific gravity measu rementOrdered By: HEALTH ASSESSMENT on 05-09-2023 Specific gravity (U) [Rel density] 1.025 1.002-1.030 [facility] Urobilinogen Auto test strip Ql (U)Ordered By: HEALTH ASSESSMENT on 05-09-2023 Urobilinogen Ql (U) 1 mg/dl Normal [facility] Absolute lymphocyte countOrd ered By: Gay Koenig on 04-26-2023 Lymphocytes Auto (Unsp spec) [#/Vol] 1.68 10*3/uL 0.83-4.51 [facility] Basophil percentageOrdered B y: Gay Koenig on 04-26-2023 Basophils/100 WBC (Bld) 0.9 % 0-1 [facility] Chloride [Moles/Vol] 106 mmol/L 98-107 [facility] Eosinophils/100 WBC (Bld) 2.9 % 0-5 [facility] Glucose [Mass/Vol] 104 mg/dL 74-106 [facility] Comment on above: Fasting Glucose resu lt from 100 to 125 mg/dL suggests IMPAIRED HOMEOSTASIS per A.D.A. criteria. Neutrophils (Bld) [#/Vol] 4.5 10*3/uL 2.0-7.7 [facility] Neutrophils/100 WBC (Bld) 64.9 % 47-70 [facility] Potassium [Moles/Vol] 4.1 mmol/L 3.5-5.1 [facility] Sodium [Moles/Vol] 136 mmol/L 136-145 [facility] WBC (Bld) [#/Vol] 6.9 10*3/uL 4.4-11.0 [facility] Blood erythrocytes count (nu mber/volume)Ordered By: Gay Koenig on 04-26-2023 RBC (Bld) [#/Vol] 4.04 10*6/uL 4.2-5.4 [facility] Blood hemoglobin measurement (mass/volume)Ordered By: Gay Koenig on 04-26-2023 Hemoglobin (Bld) [Mass/Vol] 12.6 g/dL 12.0-15.0 [facility] Blood lymphocytes/100 leukoc ytesOrdered By: Gay Koenig on 04-26-2023 Lymphocytes/100 WBC (Bld) 24.4 % 19-41 [facility] Blood monocytes/100 leukocyt esOrdered By: Gay Koenig on 04-26-2023 Monocytes/100 WBC (Bld) 6.8 % 0-10 [facility] Blood platelet mean volumeOr dered By: Gay Koenig on 04-26-2023 Platelet mean volume (Bld) [Entitic vol] 10.7 fL 6.2-12.0 [facility] Determination of erythrocyte mean corpuscular volume (MCV)Ordered By: Gay Koenig on 04-26-2023 MCV (RBC) [Entitic vol] 98.8 fL 81-99 [facility] Hematocrit Auto (Bld) [Volum e fraction]Ordered By: Gay Koenig on 04-26-2023 Hematocrit (Bld) [Volume fraction] 39.9 % 37-47 [facility] Laboratory - Chemistry and C hemistry - challengeOrdered By: Gay Koenig on 04-26-2023 CO2 [Moles/Vol] 25.0 mmol/L 21.0-32.0 [facility] Urea nitrogen/Creatinine [Mass ratio] 12.5 mg/mg 10-20 [facility] Laboratory - Hematology and Cell countsOrdered By: Gay Koenig on 04-26-2023 Erythrocyte distribution width (RBC) [Entitic vol] 45.2 fL 35.1-43.9 [facility] Erythrocyte distribution width (RBC) [Ratio] 12.5 % 11.6-14.6 [facility] Immature granulocytes/100 WBC (Bld) 0.100 % 0.0-0.9 [facility] Comment on above: IG% - Immature Granu locytes (promyelocytes, myelocytes and metamyelocytes) > 1% indicates that a LEFT SHIFT is Present. MCH (RBC) [Entitic mass] 31.2 pg 27.0-32.0 [facility] Nucleated RBC/100 WBC (Bld) [Ratio] 0 % 0-5 [facility] MCHC Auto (RBC) [Mass/Vol]Or dered By: Gay Koenig on 04-26-2023 MCHC (RBC) [Mass/Vol] 31.6 g/dL 32-36 [facility] No Panel InformationOrdered By: Gay Koenig on 04-26-2023 Estimated GFR (MDRD) Amer 91 mL/min >60 [facility] Comment on above: GFR Calc Estimated GFR (MDRD) Non-Af Amer 75 mL/min >60 [facility] Comment on above: Non- GFR Calc Troponin I High Sensitivity 4 pg/mL 3.0-54.0 [facility] Comment on above: Please Note: New Bia t Units and Gender Specific Reference Ranges. For more information see Policy Stat Procedure [place] High Sensitivity Troponin (TNIH) and attachments. Platelets bldOrdered By: Enio Koenig on 04-26-2023 Platelets (Bld) [#/Vol] 279 10*3/uL 150-450 [facility] Serum or plasma calcium sancho urement (mass/volume)Ordered By: Gay Koenig on 04-26-2023 Calcium [Mass/Vol] 10.3 mg/dL 8.5-10.1 [facility] Serum or plasma creatinine m easurement (mass/volume)Ordered By: Gay Koenig on 04-26-2023 Creatinine [Mass/Vol] 0.88 mg/dL 0.55-1.02 [facility] Comment on above: The validity of the calculated GFR & GFRAA in patients over 70 years has not been determined. Clinical correlation is essential. Serum or plasma urea nitroge n measurement (mass/volume)Ordered By: Gay Koenig on 04-26-2023 Urea nitrogen [Mass/Vol] 11 mg/dL 7-18 [facility] Thin prep Papanicolaou smear with manual screeningOrdered By: Gay Koenig on 04-26-2023 Thin prep Papanicolaou smear with manual screening 5 5-15 [facility] Erythrocyte sedimentation ra teOrdered By: STEVEN BOLES on 03-22-2023 ESR (Bld) [Velocity] 14 mm/h 0-30 [facility] Serum or plasma C reactive p rotein measurement (mass/volume)Ordered By: STEVEN BOLES on 03-22-2023 CRP [Mass/Vol] 9.19 mg/L 0.0-3.0 [facility] Comment on above: C-Reactive Protein ( CRP) provides useful information for thediagnosis, therapy and monitoring of inflammatory processesand associated diseases. For the evaluation of Relative Riskfor Cardiovascular Disease, a High Sensitivity CRP (HSCRP)should be ordered. Absolute lymphocyte countOrd ered By: STEVEN BOLES on 03-07-2023 Lymphocytes Auto (Unsp spec) [#/Vol] 2.41 10*3/uL 0.83-4.51 [facility] Basophil percentageOrdered B y: STEVEN BOLES on 03-07-2023 Basophils/100 WBC (Bld) 0.9 % 0-1 [facility] Bilirubin [Mass/Vol] 0.30 mg/dL 0.20-1.00 [facility] Comment on above: For patients on eltr ombopag therapy, use of Dimension [place] TBIL is not recommended. Eosinophils/100 WBC (Bld) 3.2 % 0-5 [facility] Neutrophils (Bld) [#/Vol] 3.7 10*3/uL 2.0-7.7 [facility] Neutrophils/100 WBC (Bld) 55.0 % 47-70 [facility] Protein [Mass/Vol] 7.7 g/dL 6.4-8.2 [facility] WBC (Bld) [#/Vol] 6.8 10*3/uL 4.4-11.0 [facility] Blood erythrocytes count (nu mber/volume)Ordered By: STEVEN BOLES on 03-07-2023 RBC (Bld) [#/Vol] 3.93 10*6/uL 4.2-5.4 [facility] Blood hemoglobin measurement (mass/volume)Ordered By: STEVEN BOLES on 03-07-2023 Hemoglobin (Bld) [Mass/Vol] 12.5 g/dL 12.0-15.0 [facility] Blood lymphocytes/100 leukoc ytesOrdered By: STEVEN BOLES on 03-07-2023 Lymphocytes/100 WBC (Bld) 35.4 % 19-41 [facility] Blood monocytes/100 leukocyt esOrdered By: STEVEN BOLES on 03-07-2023 Monocytes/100 WBC (Bld) 5.4 % 0-10 [facility] Blood platelet mean volumeOr dered By: STEVEN BOLES on 03-07-2023 Platelet mean volume (Bld) [Entitic vol] 9.3 fL 6.2-12.0 [facility] Determination of erythrocyte mean corpuscular volume (MCV)Ordered By: STEVEN BOLES on 03-07-2023 MCV (RBC) [Entitic vol] 98.5 fL 81-99 [facility] Direct bilirubinOrdered By: STEVEN BOLES on 03-07-2023 Bilirubin.direct [Mass/Vol] 0.09 mg/dL 0.00-0.30 [facility] Erythrocyte sedimentation ra teOrdered By: STEVEN BOLES on 03-07-2023 ESR (Bld) [Velocity] 19 mm/h 0-30 [facility] Hematocrit Auto (Bld) [Volum e fraction]Ordered By: STEVEN BOLES on 03-07-2023 Hematocrit (Bld) [Volume fraction] 38.7 % 37-47 [facility] Laboratory - Chemistry and C hemistry - challengeOrdered By: STEVEN BOLES on 03-07-2023 ALP [Catalytic activity/Vol] 69 U/L 45-117 [facility] ALT [Catalytic activity/Vol] 32 U/L 13-56 [facility] Globulin (S) [Mass/Vol] 3.8 g/dL 2.2-4.2 [facility] Laboratory - Hematology and Cell countsOrdered By: STEVEN BOLES on 03-07-2023 Erythrocyte distribution width (RBC) [Entitic vol] 46.3 fL 35.1-43.9 [facility] Erythrocyte distribution width (RBC) [Ratio] 13.0 % 11.6-14.6 [facility] Immature granulocytes/100 WBC (Bld) 0.100 % 0.0-0.9 [facility] Comment on above: IG% - Immature Granu locytes (promyelocytes, myelocytes and metamyelocytes) > 1% indicates that a LEFT SHIFT is Present. MCH (RBC) [Entitic mass] 31.8 pg 27.0-32.0 [facility] Nucleated RBC/100 WBC (Bld) [Ratio] 0 % 0-5 [facility] MCHC Auto (RBC) [Mass/Vol]Or dered By: STEVEN BOLES on 03-07-2023 MCHC (RBC) [Mass/Vol] 32.3 g/dL 32-36 [facility] No Panel InformationOrdered By: STEVEN BOLES on 03-07-2023 Estimated GFR (MDRD) Amer 88 mL/min >60 [facility] Comment on above: GFR Calc Estimated GFR (MDRD) Non-Af Amer 73 mL/min >60 [facility] Comment on above: Non- GFR Calc Platelets bldOrdered By: IRENE BOLES on 03-07-2023 Platelets (Bld) [#/Vol] 326 10*3/uL 150-450 [facility] Serum or plasma C reactive p rotein measurement (mass/volume)Ordered By: STEVEN BOLES on 03-07-2023 CRP [Mass/Vol] 13.30 mg/L 0.0-3.0 [facility] Comment on above: C-Reactive Protein ( CRP) provides useful information for thediagnosis, therapy and monitoring of inflammatory processesand associated diseases. For the evaluation of Relative Riskfor Cardiovascular Disease, a High Sensitivity CRP (HSCRP)should be ordered. Serum or plasma albumin sancho urement (mass/volume)Ordered By: STEVEN BOLES on 03-07-2023 Albumin [Mass/Vol] 3.9 g/dL 3.2-5.0 [facility] Serum or plasma creatinine m easurement (mass/volume)Ordered By: STEVEN BOLES on 03-07-2023 Creatinine [Mass/Vol] 0.91 mg/dL 0.55-1.02 [facility] Comment on above: The validity of the calculated GFR & GFRAA in patients over 70 years has not been determined. Clinical correlation is essential. Thin prep Papanicolaou smear with manual screeningOrdered By: STEVEN BOLES on 03-07-2023 Thin prep Papanicolaou smear with manual screening 18 U/L 15-37 [facility] Basophil percentageOrdered B y: Cali Lou on 01-09-2023 Bilirubin [Mass/Vol] 0.30 mg/dL 0.20-1.00 [facility] Comment on above: For patients on eltr ombopag therapy, use of Dimension [place] TBIL is not recommended. Chloride [Moles/Vol] 106 mmol/L 98-107 [facility] Glucose [Mass/Vol] 90 mg/dL 74-106 [facility] Potassium [Moles/Vol] 4.1 mmol/L 3.5-5.1 [facility] Protein [Mass/Vol] 8.0 g/dL 6.4-8.2 [facility] Sodium [Moles/Vol] 138 mmol/L 136-145 [facility] Laboratory - Chemistry and C hemistry - challengeOrdered By: Cali Lou on 01-09-2023 ALP [Catalytic activity/Vol] 70 U/L 45-117 [facility] ALT [Catalytic activity/Vol] 23 U/L 13-56 [facility] CO2 [Moles/Vol] 25.0 mmol/L 21.0-32.0 [facility] Free T4 [Mass/Vol] 0.97 ng/dL 0.76-1.46 [facility] Globulin (S) [Mass/Vol] 4.1 g/dL 2.2-4.2 [facility] Urea nitrogen/Creatinine [Mass ratio] 19.8 mg/mg 10-20 [facility] No Panel InformationOrdered By: Cali Lou on 01-09-2023 Estimated GFR (MDRD) Amer 109 mL/min >60 [facility] Comment on above: GFR Calc Estimated GFR (MDRD) Non-Af Amer 90 mL/min >60 [facility] Comment on above: Non- GFR Calc Follicle Stimulating Hormone 19.8 mIU/mL [facility] Comment on above: NORMAL REFERENCE RAN GES FEMALE FOLLICULAR 2.3 - 12.6 mIU/mL MID-CYCLE PEAK 5.2 - 17.5 mIU/mL LUTEAL 1.7 - 12.9 mIU/mL POST-MENOPAUSAL ON MHT 5.9 - 72.8 mIU/mL NOT ON MHT 12.7 - 132.2 mlU/mL MALE 0.7 - 10.8 mIU/mL Luteinizing Hormone 10.0 mIU/mL [facility] Comment on above: NORMAL REFERENCE RAN GES FEMALE FOLLICULAR 1.9 - 26.2 mIU/mL MID-CYCLE PEAK 22.8 - 76.1 mIU/mL LUTEAL 0.6 - 16.6 mIU/mL POST-MENOPAUSAL ON MHT 1.1 - 52.4 mIU/mL NOT ON MHT 8.6 - 61.8 mIU/mL MALE 1.2 - 10.6 mIU/mL Parathyroid Hormone (Intact) 92.3 pg/mL 18.4-80.1 [facility] Thyroid Stimulating Hormone (TSH) 0.85 uIU/mL 0.358-3.74 [facility] Vitamin D 25-Hydroxy 47.0 ng/mL [facility] Comment on above: Vitamin D 25(OH) Sta tus Range Deficiency <20 ng/mL (50nmol/L) Insufficiency 20 - 30 ng/mL (50 - 75 nmol/L) Sufficiency 30 - 100 ng/mL (75 - 250 nmol/L) Toxicity >100 ng/mL (>250 nmol/L) Serum or plasma albumin sancho urement (mass/volume)Ordered By: Cali Lou on 01-09-2023 Albumin [Mass/Vol] 3.9 g/dL 3.2-5.0 [facility] Serum or plasma albumin/glob ulin mass ratioOrdered By: Cali Lou on 01-09-2023 Albumin/Globulin [Mass ratio] 1.0 {ratio} 0.9-2.4 [facility] Serum or plasma calcium sancho urement (mass/volume)Ordered By: Cali Lou on 01-09-2023 Calcium [Mass/Vol] 10.2 mg/dL 8.5-10.1 [facility] Serum or plasma creatinine m easurement (mass/volume)Ordered By: Cali Lou on 01-09-2023 Creatinine [Mass/Vol] 0.76 mg/dL 0.55-1.02 [facility] Comment on above: The validity of the calculated GFR & GFRAA in patients over 70 years has not been determined. Clinical correlation is essential. Serum or plasma estradiol (E 2) measurement (mass/volume)Ordered By: Cali Lou on 01-09-2023 E2 [Mass/Vol] 25.0 pg/mL [facility] Comment on above: NORMAL REFERENCE [...] 01-09-2023 Urea nitrogen [Mass/Vol] 15 mg/dL 7-18 [facility] Thin prep Papanicolaou smear with manual screeningOrdered By: Cali Lou on 01-09-2023 Thin prep Papanicolaou smear with manual screening 13 U/L 15-37 [facility] Thin prep Papanicolaou smear with manual screening 7 5-15 [facility] Erythrocyte sedimentation ra teOrdered By: STEVEN BOLES on 01-03-2023 ESR (Bld) [Velocity] 10 mm/h 0-30 [facility] Serum or plasma C reactive p rotein measurement (mass/volume)Ordered By: STEVEN BOLES on 01-03-2023 CRP [Mass/Vol] 6.98 mg/L 0.0-3.0 [facility] Comment on above: C-Reactive Protein ( CRP) provides useful information for thediagnosis, therapy and monitoring of inflammatory processesand associated diseases. For the evaluation of Relative Riskfor Cardiovascular Disease, a High Sensitivity CRP (HSCRP)should be ordered. Absolute lymphocyte countOrd ered By: STEVEN BOLES on 12-14-2022 Lymphocytes Auto (Unsp spec) [#/Vol] 1.23 10*3/uL 0.83-4.51 [facility] Basophil percentageOrdered B y: STEVEN BOLES on 12-14-2022 Basophils/100 WBC (Bld) 0.6 % 0-1 [facility] Bilirubin [Mass/Vol] 0.30 mg/dL 0.20-1.00 [facility] Comment on above: For patients on eltr ombopag therapy, use of Dimension [place] TBIL is not recommended. Eosinophils/100 WBC (Bld) 0.7 % 0-5 [facility] Neutrophils (Bld) [#/Vol] 8.0 10*3/uL 2.0-7.7 [facility] Neutrophils/100 WBC (Bld) 82.4 % 47-70 [facility] Protein [Mass/Vol] 7.3 g/dL 6.4-8.2 [facility] WBC (Bld) [#/Vol] 9.7 10*3/uL 4.4-11.0 [facility] Blood erythrocytes count (nu mber/volume)Ordered By: STEVEN BOLES on 12-14-2022 RBC (Bld) [#/Vol] 3.98 10*6/uL 4.2-5.4 [facility] Blood hemoglobin measurement (mass/volume)Ordered By: STEVEN BOLES on 12-14-2022 Hemoglobin (Bld) [Mass/Vol] 12.4 g/dL 12.0-15.0 [facility] Blood lymphocytes/100 leukoc ytesOrdered By: STEVEN BOLES on 12-14-2022 Lymphocytes/100 WBC (Bld) 12.7 % 19-41 [facility] Blood monocytes/100 leukocyt esOrdered By: STEVEN BOLES on 12-14-2022 Monocytes/100 WBC (Bld) 3.2 % 0-10 [facility] Blood platelet mean volumeOr dered By: STEVEN BOLES on 12-14-2022 Platelet mean volume (Bld) [Entitic vol] 9.4 fL 6.2-12.0 [facility] Determination of erythrocyte mean corpuscular volume (MCV)Ordered By: STEVEN BOLES on 12-14-2022 MCV (RBC) [Entitic vol] 96.7 fL 81-99 [facility] Direct bilirubinOrdered By: STEVEN BOLES on 12-14-2022 Bilirubin.direct [Mass/Vol] 0.09 mg/dL 0.00-0.30 [facility] Erythrocyte sedimentation ra teOrdered By: STEVEN BOLES on 12-14-2022 ESR (Bld) [Velocity] 20 mm/h 0-30 [facility] Hematocrit Auto (Bld) [Volum e fraction]Ordered By: STEVEN BOLES on 12-14-2022 Hematocrit (Bld) [Volume fraction] 38.5 % 37-47 [facility] Laboratory - Chemistry and C hemistry - challengeOrdered By: STEVEN BOLES on 12-14-2022 ALP [Catalytic activity/Vol] 59 U/L 45-117 [facility] ALT [Catalytic activity/Vol] 28 U/L 13-56 [facility] Globulin (S) [Mass/Vol] 3.6 g/dL 2.2-4.2 [facility] Laboratory - Hematology and Cell countsOrdered By: STEVEN BOLES on 12-14-2022 Erythrocyte distribution width (RBC) [Entitic vol] 49.9 fL 35.1-43.9 [facility] Erythrocyte distribution width (RBC) [Ratio] 14.0 % 11.6-14.6 [facility] Immature granulocytes/100 WBC (Bld) 0.400 % 0.0-0.9 [facility] Comment on above: IG% - Immature Granu locytes (promyelocytes, myelocytes and metamyelocytes) > 1% indicates that a LEFT SHIFT is Present. MCH (RBC) [Entitic mass] 31.2 pg 27.0-32.0 [facility] Nucleated RBC/100 WBC (Bld) [Ratio] 0 % 0-5 [facility] MCHC Auto (RBC) [Mass/Vol]Or dered By: STEVEN BOLES on 12-14-2022 MCHC (RBC) [Mass/Vol] 32.2 g/dL 32-36 [facility] No Panel InformationOrdered By: STEVEN BOLES on 12-14-2022 Estimated GFR (MDRD) Amer 106 mL/min >60 [facility] Comment on above: GFR Calc Estimated GFR (MDRD) Non-Af Amer 88 mL/min >60 [facility] Comment on above: Non- GFR Calc Platelets bldOrdered By: IRENE BOLES on 12-14-2022 Platelets (Bld) [#/Vol] 302 10*3/uL 150-450 [facility] Serum or plasma C reactive p rotein measurement (mass/volume)Ordered By: STEVEN BOLES on 12-14-2022 CRP [Mass/Vol] 8.54 mg/L 0.0-3.0 [facility] Comment on above: C-Reactive Protein ( CRP) provides useful information for thediagnosis, therapy and monitoring of inflammatory processesand associated diseases. For the evaluation of Relative Riskfor Cardiovascular Disease, a High Sensitivity CRP (HSCRP)should be ordered. Serum or plasma albumin sancho urement (mass/volume)Ordered By: STEVEN BOLES on 12-14-2022 Albumin [Mass/Vol] 3.7 g/dL 3.2-5.0 [facility] Serum or plasma creatinine m easurement (mass/volume)Ordered By: STEVEN BOLES on 12-14-2022 Creatinine [Mass/Vol] 0.77 mg/dL 0.55-1.02 [facility] Comment on above: The validity of the calculated GFR & GFRAA in patients over 70 years has not been determined. Clinical correlation is essential. Thin prep Papanicolaou smear with manual screeningOrdered By: STEVEN BOLES on 12-14-2022 Thin prep Papanicolaou smear with manual screening 22 U/L 15-37 [facility] Basophil percentageOrdered B y: Dirk Paula on 12-02-2022 Chloride [Moles/Vol] 106 mmol/L 98-107 [facility] Glucose [Mass/Vol] 99 mg/dL 74-106 [facility] Potassium [Moles/Vol] 4.2 mmol/L 3.5-5.1 [facility] Sodium [Moles/Vol] 139 mmol/L 136-145 [facility] Laboratory - Chemistry and C hemistry - challengeOrdered By: Dirk Paula on 12-02-2022 CO2 [Moles/Vol] 28.0 mmol/L 21.0-32.0 [facility] Urea nitrogen/Creatinine [Mass ratio] 18.1 mg/mg 10-20 [facility] No Panel InformationOrdered By: Dirk Paula on 12-02-2022 Estimated GFR (MDRD) Amer 106 mL/min >60 [facility] Comment on above: GFR Calc Estimated GFR (MDRD) Non-Af Amer 88 mL/min >60 [facility] Comment on above: Non- GFR Calc Serum or plasma calcium sancho urement (mass/volume)Ordered By: Dirk Paula on 12-02-2022 Calcium [Mass/Vol] 10.1 mg/dL 8.5-10.1 [facility] Serum or plasma creatinine m easurement (mass/volume)Ordered By: Dirk Paula on 12-02-2022 Creatinine [Mass/Vol] 0.77 mg/dL 0.55-1.02 [facility] Comment on above: The validity of the calculated GFR & GFRAA in patients over 70 years has not been determined. Clinical correlation is essential. Serum or plasma urea nitroge n measurement (mass/volume)Ordered By: Dirk Paula on 12-02-2022 Urea nitrogen [Mass/Vol] 14 mg/dL -18 [facility] Thin prep Papanicolaou smear with manual screeningOrdered By: Dirk Paula on 12-02-2022 Thin prep Papanicolaou smear with manual screening 5 5-15 [facility] No Panel InformationOrdered By: Dr. Lou on 11-01-2022 Parathyroid Hormone (Intact) 95.6 pg/mL 18.4-80.1 [facility] Thyroid Stimulating Hormone (TSH) 1.00 uIU/mL 0.358-3.74 [facility] Vitamin D 25-Hydroxy 37.3 ng/mL [facility] Comment on above: Vitamin D 25(OH) Sta tus Range Deficiency <20 ng/mL (50nmol/L) Insufficiency 20 - 30 ng/mL (50 - 75 nmol/L) Sufficiency 30 - 100 ng/mL (75 - 250 nmol/L) Toxicity >100 ng/mL (>250 nmol/L) Serum or plasma calcium sancho urement (mass/volume)Ordered By: Dr. Lou on 11-01-2022 Calcium [Mass/Vol] 10.4 mg/dL 8.5-10.1 [facility] Absolute lymphocyte countOrd ered By: STEVEN BOLES on 10-13-2022 Lymphocytes Auto (Unsp spec) [#/Vol] 2.23 10*3/uL 0.83-4.51 [facility] Basophil percentageOrdered B y: STEVEN BOLES on 10-13-2022 Basophils/100 WBC (Bld) 0.9 % 0-1 [facility] Bilirubin [Mass/Vol] 0.50 mg/dL 0.20-1.00 [facility] Comment on above: For patients on eltr ombopag therapy, use of Dimension [place] TBIL is not recommended. Eosinophils/100 WBC (Bld) 3.0 % 0-5 [facility] Neutrophils (Bld) [#/Vol] 4.0 10*3/uL 2.0-7.7 [facility] Neutrophils/100 WBC (Bld) 57.6 % 47-70 [facility] Protein [Mass/Vol] 7.7 g/dL 6.4-8.2 [facility] WBC (Bld) [#/Vol] 7.0 10*3/uL 4.4-11.0 [facility] Blood erythrocytes count (nu mber/volume)Ordered By: STEVEN BOLES on 10-13-2022 RBC (Bld) [#/Vol] 4.16 10*6/uL 4.2-5.4 [facility] Blood hemoglobin measurement (mass/volume)Ordered By: STEVEN BOLES on 10-13-2022 Hemoglobin (Bld) [Mass/Vol] 12.7 g/dL 12.0-15.0 [facility] Blood lymphocytes/100 leukoc ytesOrdered By: STEVEN BOLES on 10-13-2022 Lymphocytes/100 WBC (Bld) 32.0 % 19-41 [facility] Blood monocytes/100 leukocyt esOrdered By: STEVEN BOLES on 10-13-2022 Monocytes/100 WBC (Bld) 6.2 % 0-10 [facility] Blood platelet mean volumeOr dered By: STEVEN BOLES on 10-13-2022 Platelet mean volume (Bld) [Entitic vol] 10.2 fL 6.2-12.0 [facility] Determination of erythrocyte mean corpuscular volume (MCV)Ordered By: STEVEN BOLES on 10-13-2022 MCV (RBC) [Entitic vol] 95.4 fL 81-99 [facility] Direct bilirubinOrdered By: STEVEN BOLES on 10-13-2022 Bilirubin.direct [Mass/Vol] 0.14 mg/dL 0.00-0.30 [facility] Erythrocyte sedimentation ra teOrdered By: STEVEN BOLES on 10-13-2022 ESR (Bld) [Velocity] 24 mm/h 0-30 [facility] Hematocrit Auto (Bld) [Volum e fraction]Ordered By: STEVEN BOLES on 10-13-2022 Hematocrit (Bld) [Volume fraction] 39.7 % 37-47 [facility] Laboratory - Chemistry and C hemistry - challengeOrdered By: STEVEN BOLES on 10-13-2022 ALP [Catalytic activity/Vol] 60 U/L 45-117 [facility] ALT [Catalytic activity/Vol] 32 U/L 13-56 [facility] Globulin (S) [Mass/Vol] 3.6 g/dL 2.2-4.2 [facility] Laboratory - Hematology and Cell countsOrdered By: STEVEN BOLES on 10-13-2022 Erythrocyte distribution width (RBC) [Entitic vol] 43.9 fL 35.1-43.9 [facility] Erythrocyte distribution width (RBC) [Ratio] 12.6 % 11.6-14.6 [facility] Immature granulocytes/100 WBC (Bld) 0.300 % 0.0-0.9 [facility] Comment on above: IG% - Immature Granu locytes (promyelocytes, myelocytes and metamyelocytes) > 1% indicates that a LEFT SHIFT is Present. MCH (RBC) [Entitic mass] 30.5 pg 27.0-32.0 [facility] Nucleated RBC/100 [facility] (Bld) [[facility]] 0 [facility] [Mass/Vol]Or dered By: STEVEN BOLES on 10-13-2022 MCHC (RBC) [Mass/Vol] 32.0 g/dL 32-36 [facility] No Panel InformationOrdered By: STEVEN BOLES on 10-13-2022 Estimated GFR (MDRD) Amer 106 mL/min >60 [facility] Comment on above: GFR Calc Estimated GFR (MDRD) Non-Af Amer 88 mL/min >60 [facility] Comment on above: Non- GFR Calc Platelets bldOrdered By: IRENE BOLES on 10-13-2022 Platelets (Bld) [#/Vol] 312 10*3/uL 150-450 [facility] Serum cyclic citrullinated p eptide IgG antibody assay (units/volume)Ordered By: STEVEN BOLES on 10-13-2022 Cyclic citrullinated peptide IgG Qn 7 units 0-19 [facility] Comment on above: Negative <20 Weak po sitive 20 - 39 Moderate positive 40 - 59 Strong positive >59Performed at: [place] [id number] Director: Levi Covarrubias PhD, Phone: [phone] Serum or plasma C reactive p rotein measurement (mass/volume)Ordered By: STEVEN BOLES on 10-13-2022 CRP [Mass/Vol] mg/L 0.0-3.0 [facility] Comment on above: C-Reactive Protein ( CRP) provides useful information for thediagnosis, therapy and monitoring of inflammatory processesand associated diseases. For the evaluation of Relative Riskfor Cardiovascular Disease, a High Sensitivity CRP (HSCRP)should be ordered. Serum or plasma albumin sancho urement (mass/volume)Ordered By: STEVEN BOLES on 10-13-2022 Albumin [Mass/Vol] 4.1 g/dL 3.2-5.0 [facility] Serum or plasma complement C 3 measurement (mass/volume)Ordered By: STEVEN BOLES on 10-13-2022 Complement C3 [Mass/Vol] 163 mg/dL 82-167 [facility] Serum or plasma complement C 4 measurement (mass/volume)Ordered By: STEVEN BOLES on 10-13-2022 Complement C4 [Mass/Vol] 30 mg/dL 12-38 [facility] Serum or plasma creatinine m easurement (mass/volume)Ordered By: STEVEN BOLES on 10-13-2022 Creatinine [Mass/Vol] 0.77 mg/dL 0.55-1.02 [facility] Comment on above: The validity of the calculated GFR & GFRAA in patients over 70 years has not been determined. Clinical correlation is essential. Serum rheumatoid factor dete ctionOrdered By: STEVEN BOLES on 10-13-2022 Rheumatoid factor Ql (S) < 10.0 IU/mL <15 [facility] Thin prep Papanicolaou smear with manual screeningOrdered By: STEVEN BOLES on 10-13-2022 Thin prep Papanicolaou smear with manual screening 17 U/L 15-37 [facility] Laboratory - Chemistry and C hemistry - challengeOrdered By: Dirk Paula on 09-29-2022 Cobalamin (Vitamin B12) [Mass/Vol] 334 pg/mL 211-911 [facility] No Panel InformationOrdered By: Nicolette Blair on 09-29-2022 Hepatitis B Surface Antibody Reactive [facility] Comment on above: Non Reactive: Incons istent with immunity less than <10 mIU/mL Reactive: Consistent with immunity greater than or equal to 10 mIU/mL Laboratory - Microbiology an d Antimicrobial susceptibilityon 09-01-2022 S. pyogenes Ag IA Ql (Unsp spec) Negative [facility] No Panel Informationon 09-01 Influenza Types A,B Rapid (Clinic) Negative [facility] POC SARS CoV-2 Antigen Negative [facility] Laboratory - Hematology and Cell countson 08-15-2022 HbA1c (Bld) [Mass fraction] 5.8 % 4.2-6.3 [facility] Absolute lymphocyte countOrd ered By: Dr. Osorio on 08-04-2022 Lymphocytes Auto (Unsp spec) [#/Vol] 2.02 10*3/uL 0.83-4.51 [facility] Basophil percentageOrdered B y: Dr. Osorio on 08-04-2022 Basophils/100 WBC (Bld) 0.7 % 0-1 [facility] Bilirubin [Mass/Vol] 0.40 mg/dL 0.20-1.00 [facility] Comment on above: For patients on eltr ombopag therapy, use of Dimension [place] TBIL is not recommended. Chloride [Moles/Vol] 103 mmol/L 98-107 [facility] Eosinophils/100 WBC (Bld) 1.9 % 0-5 [facility] Glucose [Mass/Vol] 98 mg/dL 74-106 [facility] Neutrophils (Bld) [#/Vol] 2.8 10*3/uL 2.0-7.7 [facility] Neutrophils/100 WBC (Bld) 52.5 % 47-70 [facility] Potassium [Moles/Vol] 3.5 mmol/L 3.5-5.1 [facility] Protein [Mass/Vol] 7.7 g/dL 6.4-8.2 [facility] Sodium [Moles/Vol] 139 mmol/L 136-145 [facility] WBC (Bld) [#/Vol] 5.3 10*3/uL 4.4-11.0 [facility] Blood erythrocytes count (nu mber/volume)Ordered By: Dr. Osorio on 08-04-2022 RBC (Bld) [#/Vol] 3.99 10*6/uL 4.2-5.4 [facility] Blood hemoglobin measurement (mass/volume)Ordered By: Dr. Osorio on 08-04-2022 Hemoglobin (Bld) [Mass/Vol] 12.3 g/dL 12.0-15.0 [facility] Blood lymphocytes/100 leukoc ytesOrdered By: Dr. Osorio on 08-04-2022 Lymphocytes/100 WBC (Bld) 37.8 % 19-41 [facility] Blood monocytes/100 leukocyt esOrdered By: Dr. Osorio on 08-04-2022 Monocytes/100 WBC (Bld) 6.7 % 0-10 [facility] Blood platelet mean volumeOr dered By: Dr. Osorio on 08-04-2022 Platelet mean volume (Bld) [Entitic vol] 9.5 fL 6.2-12.0 [facility] Determination of erythrocyte mean corpuscular volume (MCV)Ordered By: Dr. Osorio on 08-04-2022 MCV (RBC) [Entitic vol] 95.7 fL 81-99 [facility] Hematocrit Auto (Bld) [Volum e fraction]Ordered By: Dr. Osorio on 08-04-2022 Hematocrit (Bld) [Volume fraction] 38.2 % 37-47 [facility] Laboratory - Chemistry and C hemistry - challengeOrdered By: Dr. Osorio on 08-04-2022 ALP [Catalytic activity/Vol] 57 U/L 45-117 [facility] ALT [Catalytic activity/Vol] 34 U/L 13-56 [facility] CO2 [Moles/Vol] 28.0 mmol/L 21.0-32.0 [facility] Globulin (S) [Mass/Vol] 3.8 g/dL 2.2-4.2 [facility] Urea nitrogen/Creatinine [Mass ratio] 12.9 mg/mg 10-20 [facility] Laboratory - Hematology and Cell countsOrdered By: Dr. Osorio on 08-04-2022 Erythrocyte distribution width (RBC) [Entitic vol] 45.3 fL 35.1-43.9 [facility] Erythrocyte distribution width (RBC) [Ratio] 13.1 % 11.6-14.6 [facility] Immature granulocytes/100 WBC (Bld) 0.400 % 0.0-0.9 [facility] Comment on above: IG% - Immature Granu locytes (promyelocytes, myelocytes and metamyelocytes) > 1% indicates that a LEFT SHIFT is Present. MCH (RBC) [Entitic mass] 30.8 pg 27.0-32.0 [facility] Nucleated RBC/100 WBC (Bld) [Ratio] 0 % 0-5 [facility] MCHC Auto (RBC) [Mass/Vol]Or dered By: Dr. Osorio on 08-04-2022 MCHC (RBC) [Mass/Vol] 32.2 g/dL 32-36 [facility] No Panel InformationOrdered By: Dr. Lou on 08-04-2022 Thyroid Stimulating Hormone (TSH) 1.23 uIU/mL 0.358-3.74 [facility] Vitamin D 25-Hydroxy 39.8 ng/mL [facility] Comment on above: Vitamin D 25(OH) Sta tus Range Deficiency <20 ng/mL (50nmol/L) Insufficiency 20 - 30 ng/mL (50 - 75 nmol/L) Sufficiency 30 - 100 ng/mL (75 - 250 nmol/L) Toxicity >100 ng/mL (>250 nmol/L) No Panel InformationOrdered By: Dr. Osorio on 08-04-2022 Estimated GFR (MDRD) Amer 95 mL/min >60 [facility] Comment on above: GFR Calc Estimated GFR (MDRD) Non-Af Amer 79 mL/min >60 [facility] Comment on above: Non- GFR Calc Platelets bldOrdered By: Dr. Osorio on 08-04-2022 Platelets (Bld) [#/Vol] 339 10*3/uL 150-450 [facility] Serum or plasma albumin sancho urement (mass/volume)Ordered By: Dr. Osorio on 08-04-2022 Albumin [Mass/Vol] 3.9 g/dL 3.2-5.0 [facility] Serum or plasma albumin/glob ulin mass ratioOrdered By: Dr. Osorio on 08-04-2022 Albumin/Globulin [Mass ratio] 1.0 {ratio} 0.9-2.4 [facility] Serum or plasma calcium sancho urement (mass/volume)Ordered By: Dr. Osorio on 08-04-2022 Calcium [Mass/Vol] 10.1 mg/dL 8.5-10.1 [facility] Serum or plasma creatinine m easurement (mass/volume)Ordered By: Dr. Osorio on 08-04-2022 Creatinine [Mass/Vol] 0.85 mg/dL 0.55-1.02 [facility] Comment on above: The validity of the calculated GFR & GFRAA in patients over 70 years has not been determined. Clinical correlation is essential. Serum or plasma urea nitroge n measurement (mass/volume)Ordered By: Dr. Osorio on 08-04-2022 Urea nitrogen [Mass/Vol] 11 mg/dL 7-18 [facility] Thin prep Papanicolaou smear with manual screeningOrdered By: Dr. Osorio on 08-04-2022 Thin prep Papanicolaou smear with manual screening 20 U/L 15-37 [facility] Thin prep Papanicolaou smear with manual screening 8 5-15 [facility] Qualitative QuantiFERON-TB g old in tube testOrdered By: Dr. Osorio on 06-24-2022 M. tuberculosis tuberculin stim IFN-g Ql (Bld) Not Reportable [facility] Thin prep Papanicolaou smear with manual screeningOrdered By: Dr. Osorio on 06-24-2022 Thin prep Papanicolaou smear with manual screening See comment [facility] Comment on above: TEST RESULT [...] gamma.Chemiluminescence immunoassay methodology ____ TESTING PERFORMED AT [facility]. ORIGINAL REPORT ON FILE IN LAB CONTAINS ADDITIONAL TEST SITE INFORMATION. Thin prep Papanicolaou smear with manual screening Not Reportable [facility] Absolute lymphocyte countOrd ered By: Dr. Osorio on 06-13-2022 Lymphocytes Auto (Unsp spec) [#/Vol] 2.41 10*3/uL 0.83-4.51 [facility] Basophil percentageOrdered B y: Dr. Osorio on 06-13-2022 Basophils/100 WBC (Bld) 0.9 % 0-1 [facility] Bilirubin [Mass/Vol] 0.50 mg/dL 0.20-1.00 [facility] Comment on above: For patients on eltr ombopag therapy, use of Dimension [place] TBIL is not recommended. Chloride [Moles/Vol] 101 mmol/L 98-107 [facility] Eosinophils/100 WBC (Bld) 1.7 % 0-5 [facility] Glucose [Mass/Vol] 117 mg/dL 74-106 [facility] Comment on above: Fasting Glucose resu lt from 100 to 125 mg/dL suggests IMPAIRED HOMEOSTASIS per A.D.A. criteria. Neutrophils (Bld) [#/Vol] 4.5 10*3/uL 2.0-7.7 [facility] Neutrophils/100 WBC (Bld) 58.9 % 47-70 [facility] Potassium [Moles/Vol] 3.5 mmol/L 3.5-5.1 [facility] Protein [Mass/Vol] 7.5 g/dL 6.4-8.2 [facility] Sodium [Moles/Vol] 136 mmol/L 136-145 [facility] WBC (Bld) [#/Vol] 7.6 10*3/uL 4.4-11.0 [facility] Blood erythrocytes count (nu mber/volume)Ordered By: Dr. Osorio on 06-13-2022 RBC (Bld) [#/Vol] 4.11 10*6/uL 4.2-5.4 [facility] Blood hemoglobin measurement (mass/volume)Ordered By: Dr. Osorio on 06-13-2022 Hemoglobin (Bld) [Mass/Vol] 12.9 g/dL 12.0-15.0 [facility] Blood lymphocytes/100 leukoc ytesOrdered By: Dr. Osorio on 06-13-2022 Lymphocytes/100 WBC (Bld) 31.9 % 19-41 [facility] Blood monocytes/100 leukocyt esOrdered By: Dr. Osorio on 06-13-2022 Monocytes/100 WBC (Bld) 6.3 % 0-10 [facility] Blood platelet mean volumeOr dered By: Dr. Osorio on 06-13-2022 Platelet mean volume (Bld) [Entitic vol] 8.9 fL 6.2-12.0 [facility] Determination of erythrocyte mean corpuscular volume (MCV)Ordered By: Dr. Osorio on 06-13-2022 MCV (RBC) [Entitic vol] 94.9 fL 81-99 [facility] HIV 1 and HIV-2 antibody ass ay with HIV-1 p24 antigen detectionOrdered By: Nicolette Blair on 06-13-2022 HIV 1+2 Ab+HIV1 p24 Ag IA Ql Non-Reactive Nonreactive [facility] Hematocrit Auto (Bld) [Volum e fraction]Ordered By: Dr. Osorio on 06-13-2022 Hematocrit (Bld) [Volume fraction] 39.0 % 37-47 [facility] Laboratory - Chemistry and C hemistry - challengeOrdered By: Dr. Osorio on 06-13-2022 ALP [Catalytic activity/Vol] 66 U/L 45-117 [facility] ALT [Catalytic activity/Vol] 22 U/L 13-56 [facility] CO2 [Moles/Vol] 28.0 mmol/L 21.0-32.0 [facility] Globulin (S) [Mass/Vol] 3.8 g/dL 2.2-4.2 [facility] Urea nitrogen/Creatinine [Mass ratio] 13.9 mg/mg 10-20 [facility] Laboratory - Chemistry and C hemistry - challengeOrdered By: Dr. Lou on 06-13-2022 Free T4 [Mass/Vol] 1.00 ng/dL 0.76-1.46 [facility] Laboratory - Hematology and Cell countsOrdered By: Dr. Osorio on 06-13-2022 Erythrocyte distribution width (RBC) [Entitic vol] 47.2 fL 35.1-43.9 [facility] Erythrocyte distribution width (RBC) [Ratio] 13.4 % 11.6-14.6 [facility] Immature granulocytes/100 WBC (Bld) 0.300 % 0.0-0.9 [facility] Comment on above: IG% - Immature Granu locytes (promyelocytes, myelocytes and metamyelocytes) > 1% indicates that a LEFT SHIFT is Present. MCH (RBC) [Entitic mass] 31.4 pg 27.0-32.0 [facility] Nucleated RBC/100 WBC (Bld) [Ratio] 0 % 0-5 [facility] MCHC Auto (RBC) [Mass/Vol]Or dered By: Dr. Osorio on 06-13-2022 MCHC (RBC) [Mass/Vol] 33.1 g/dL 32-36 [facility] No Panel InformationOrdered By: Dr. Osorio on 06-13-2022 Estimated GFR (MDRD) Amer 94 mL/min >60 [facility] Comment on above: GFR Calc Estimated GFR (MDRD) Non-Af Amer 77 mL/min >60 [facility] Comment on above: Non- GFR Calc No Panel InformationOrdered By: Nicolette Blair on 06-13-2022 Hepatitis B Surface Antigen Non-Reactive Nonreactive [facility] Hepatitis C Antibody Non-Reactive Nonreactive [facility] Comment on above: Non Reactive: < 0.8 Equivocal: >/= 0.8 to < 1.0 Reactive: >/= 1.0The CDC recommends that a reactive/equivocal HCV antibody result be followed up by the HCV Nucleic Acid Amplificationtest ([id number]) No Panel InformationOrdered By: Dr. Lou on 06-13-2022 Parathyroid Hormone (Intact) 138.9 pg/mL 18.4-80.1 [facility] Thyroid Stimulating Hormone (TSH) 0.99 uIU/mL 0.358-3.74 [facility] Vitamin D 25-Hydroxy 14.3 ng/mL [facility] Comment on above: Vitamin D 25(OH) Sta tus Range Deficiency <20 ng/mL (50nmol/L) Insufficiency 20 - 30 ng/mL (50 - 75 nmol/L) Sufficiency 30 - 100 ng/mL (75 - 250 nmol/L) Toxicity >100 ng/mL (>250 nmol/L) Platelets bldOrdered By: Dr. Osorio on 06-13-2022 Platelets (Bld) [#/Vol] 345 10*3/uL 150-450 [facility] Serum or plasma albumin sancho urement (mass/volume)Ordered By: Dr. Osorio on 06-13-2022 Albumin [Mass/Vol] 3.7 g/dL 3.2-5.0 [facility] Serum or plasma albumin/glob ulin mass ratioOrdered By: Dr. Osorio on 06-13-2022 Albumin/Globulin [Mass ratio] 1.0 {ratio} 0.9-2.4 [facility] Serum or plasma calcium sancho urement (mass/volume)Ordered By: Dr. Osorio on 06-13-2022 Calcium [Mass/Vol] 9.5 mg/dL 8.5-10.1 [facility] Serum or plasma creatinine m easurement (mass/volume)Ordered By: Dr. Osorio on 06-13-2022 Creatinine [Mass/Vol] 0.86 mg/dL 0.55-1.02 [facility] Comment on above: The validity of the calculated GFR & GFRAA in patients over 70 years has not been determined. Clinical correlation is essential. Serum or plasma thyroperoxid ase antibody assay (units/volume)Ordered By: Dr. Lou on 06-13-2022 TPO Ab Qn 26 [IU]/mL 0-34 [facility] Comment on above: Performed at: [address] [id number] Director: Levi Covarrubias PhD, Phone: [phone] Serum or plasma urea nitroge n measurement (mass/volume)Ordered By: Dr. Osorio on 06-13-2022 Urea nitrogen [Mass/Vol] 12 mg/dL 7-18 [facility] Thin prep Papanicolaou smear with manual screeningOrdered By: Dr. Osorio on 06-13-2022 Thin prep Papanicolaou smear with manual screening 13 U/L 15-37 [facility] Thin prep Papanicolaou smear with manual screening 7 5-15 [facility] Absolute lymphocyte countOrd ered By: Dr. Osorio on 04-22-2022 Lymphocytes Auto (Unsp spec) [#/Vol] 1.57 10*3/uL 0.83-4.51 [facility] Basophil percentageOrdered B y: Dr. Osorio on 04-22-2022 Basophils/100 WBC (Bld) 0.3 % 0-1 [facility] Bilirubin [Mass/Vol] 0.40 mg/dL 0.20-1.00 [facility] Comment on above: For patients on eltr ombopag therapy, use of Dimension [place] TBIL is not recommended. Chloride [Moles/Vol] 104 mmol/L 98-107 [facility] Eosinophils/100 WBC (Bld) 1.3 % 0-5 [facility] Glucose [Mass/Vol] 94 mg/dL 74-106 [facility] Neutrophils (Bld) [#/Vol] 5.4 10*3/uL 2.0-7.7 [facility] Neutrophils/100 WBC (Bld) 70.0 % 47-70 [facility] Potassium [Moles/Vol] 3.8 mmol/L 3.5-5.1 [facility] Protein [Mass/Vol] 8.2 g/dL 6.4-8.2 [facility] Sodium [Moles/Vol] 139 mmol/L 136-145 [facility] WBC (Bld) [#/Vol] 7.7 10*3/uL 4.4-11.0 [facility] Blood erythrocytes count (nu mber/volume)Ordered By: Dr. Osorio on 04-22-2022 RBC (Bld) [#/Vol] 4.47 10*6/uL 4.2-5.4 [facility] Blood hemoglobin measurement (mass/volume)Ordered By: Dr. Osorio on 04-22-2022 Hemoglobin (Bld) [Mass/Vol] 13.5 g/dL 12.0-15.0 [facility] Blood lymphocytes/100 leukoc ytesOrdered By: Dr. Osorio on 04-22-2022 Lymphocytes/100 WBC (Bld) 20.3 % 19-41 [facility] Blood monocytes/100 leukocyt esOrdered By: Dr. Osorio on 04-22-2022 Monocytes/100 WBC (Bld) 7.8 % 0-10 [facility] Blood platelet mean volumeOr dered By: Dr. Osorio on 04-22-2022 Platelet mean volume (Bld) [Entitic vol] 9.3 fL 6.2-12.0 [facility] Clostridium difficile detect ion by polymerase chain reactionOrdered By: Dirk Paula on 04-22-2022 C. difficile DNA TERESA+probe Ql (Unsp spec) [facility] Determination of erythrocyte mean corpuscular volume (MCV)Ordered By: Dr. Osorio on 04-22-2022 MCV (RBC) [Entitic vol] 94.0 fL 81-99 [facility] EP PanelOrdered By: Dirk viramontes on 04-22-2022 Gastrointestinal pathogens panel TERESA+probe (Stl) [facility] Hematocrit Auto (Bld) [Volum e fraction]Ordered By: Dr. Osorio on 04-22-2022 Hematocrit (Bld) [Volume fraction] 42.0 % 37-47 [facility] Laboratory - Chemistry and C hemistry - challengeOrdered By: Dr. Osorio on 04-22-2022 ALP [Catalytic activity/Vol] 76 U/L 45-117 [facility] ALT [Catalytic activity/Vol] 29 U/L 13-56 [facility] CO2 [Moles/Vol] 26.0 mmol/L 21.0-32.0 [facility] Globulin (S) [Mass/Vol] 4.3 g/dL 2.2-4.2 [facility] Urea nitrogen/Creatinine [Mass ratio] 9.1 mg/mg 10-20 [facility] Laboratory - Hematology and Cell countsOrdered By: Dr. Osorio on 04-22-2022 Erythrocyte distribution width (RBC) [Entitic vol] 44.7 fL 35.1-43.9 [facility] Erythrocyte distribution width (RBC) [Ratio] 13.2 % 11.6-14.6 [facility] Immature granulocytes/100 WBC (Bld) 0.300 % 0.0-0.9 [facility] Comment on above: IG% - Immature Granu locytes (promyelocytes, myelocytes and metamyelocytes) > 1% indicates that a LEFT SHIFT is Present. MCH (RBC) [Entitic mass] 30.2 pg 27.0-32.0 [facility] Nucleated RBC/100 WBC (Bld) [Ratio] 0 % 0-5 [facility] MCHC Auto (RBC) [Mass/Vol]Or dered By: Dr. Osorio on 04-22-2022 MCHC (RBC) [Mass/Vol] 32.1 g/dL 32-36 [facility] No Panel InformationOrdered By: Dr. Osorio on 04-22-2022 Estimated GFR (MDRD) Amer 71 mL/min >60 [facility] Comment on above: GFR Calc Estimated GFR (MDRD) Non-Af Amer 59 mL/min >60 [facility] Comment on above: Non- GFR Calc Platelets bldOrdered By: Dr. Osorio on 04-22-2022 Platelets (Bld) [#/Vol] 390 10*3/uL 150-450 [facility] Serum or plasma albumin sancho urement (mass/volume)Ordered By: Dr. Osorio on 04-22-2022 Albumin [Mass/Vol] 3.9 g/dL 3.2-5.0 [facility] Serum or plasma albumin/glob ulin mass ratioOrdered By: Dr. Osorio on 04-22-2022 Albumin/Globulin [Mass ratio] 0.9 {ratio} 0.9-2.4 [facility] Serum or plasma calcium sancho urement (mass/volume)Ordered By: Dr. Osorio on 04-22-2022 Calcium [Mass/Vol] 10.5 mg/dL 8.5-10.1 [facility] Serum or plasma creatinine m easurement (mass/volume)Ordered By: Dr. Osorio on 04-22-2022 Creatinine [Mass/Vol] 1.10 mg/dL 0.55-1.02 [facility] Comment on above: The validity of the calculated GFR & GFRAA in patients over 70 years has not been determined. Clinical correlation is essential. Serum or plasma urea nitroge n measurement (mass/volume)Ordered By: Dr. Osorio on 04-22-2022 Urea nitrogen [Mass/Vol] 10 mg/dL 7-18 [facility] Thin prep Papanicolaou smear with manual screeningOrdered By: Dr. Osorio on 04-22-2022 Thin prep Papanicolaou smear with manual screening 23 U/L 15-37 [facility] Thin prep Papanicolaou smear with manual screening 9 5-15 [facility] Absolute lymphocyte counton 03-22-2022 Lymphocytes Auto (Unsp spec) [#/Vol] 2.15 10*3/uL 0.83-4.51 [facility] Work Phone: [phone] Absolute reticulocyte counto n 03-22-2022 Reticulocytes (Bld) [#/Vol] 0.00 10*3/uL 0-5 [facility] Work Phone: Basophil percentageon 2021 Basophil percentage 3.3 mg/dL 2.5-4.9 [facility] Work Phone: Bilirubin [Mass/Vol] 0.40 mg/dL 0.20-1.00 [facility] Work Phone: Comment on above: For patients on eltr ombopag therapy, use of Dimension [place] TBIL is not recommended. Chloride [Moles/Vol] 105 mmol/L 98-107 [facility] Work Phone: Cholesterol [Mass/Vol] 162 mg/dL <200 [facility] Work Phone: Comment on above: <200 mg/dL Desirable 200-240 mg/dL Borderline >240 mg/dL High Risk Glucose [Mass/Vol] 103 mg/dL 74-106 [facility] Work Phone: Comment on above: Fasting Glucose resu lt from 100 to 125 mg/dL suggests IMPAIRED HOMEOSTASIS per A.D.A. criteria. Neutrophils (Bld) [#/Vol] 4.1 10*3/uL 2.0-7.7 [facility] Work Phone: Potassium [Moles/Vol] 3.9 mmol/L 3.5-5.1 [facility] Work Phone: Protein [Mass/Vol] 7.1 g/dL 6.4-8.2 [facility] Work Phone: Sodium [Moles/Vol] 139 mmol/L 136-145 [facility] Work Phone: [phone] Triglyceride [Mass/Vol] 109 mg/dL <199 [facility] Work Phone: Comment on above: The drugs N-Acetylcy steine and Metamizole may falsely depress this assay.Serum Triglycerides Reference Interval Normal <150 mg/dL Borderline high 150 - 199 mg/dL High 200 - 499 mg/dL Very High > or = 500 mg/dL WBC (Bld) [#/Vol] 7.0 10*3/uL 4.4-11.0 [facility] Work Phone: Bilirubin Test strip Ql (U)o n 03-22-2022 Bilirubin Ql (U) Negative Negative [facility] Work Phone: Blood erythrocytes count (nu mber/volume)on 03-22-2022 RBC (Bld) [#/Vol] 3.97 10*6/uL 4.2-5.4 [facility] Work Phone: Blood hemoglobin measurement (mass/volume)on 03-22-2022 Hemoglobin (Bld) [Mass/Vol] 12.1 g/dL 12.0-15.0 [facility] Work Phone: Blood platelet mean volumeon 03-22-2022 Platelet mean volume (Bld) [Entitic vol] 9.6 fL 6.2-12.0 [facility] Work Phone: Determination of erythrocyte mean corpuscular volume (MCV)on 03-22-2022 MCV (RBC) [Entitic vol] 95.5 fL 81-99 [facility] Work Phone: Direct bilirubinon Bilirubin.direct [Mass/Vol] 0.11 mg/dL 0.00-0.30 [facility] Work Phone: Hematocrit Auto (Bld) [Volum e fraction]on 03-22-2022 Hematocrit (Bld) [Volume fraction] 37.9 % 37-47 [facility] Work Phone: [phone] Ketones Test strip Ql (U)on 03-22-2022 Ketones Ql (U) Negative Negative [facility] Work Phone: [phone] Laboratory - Chemistry and C hemistry - challengeon 03-22-2022 ALP [Catalytic activity/Vol] 60 U/L 45-117 [facility] Work Phone: [phone] ALT [Catalytic activity/Vol] 17 U/L 13-56 [facility] Work Phone: Cholesterol.total/Cho lesterol in HDL [Mass ratio] 2.80 {ratio} [facility] Work Phone: [phone] CO2 [Moles/Vol] 27.0 mmol/L 21.0-32.0 [facility] Work Phone: [phone] Free T4 [Mass/Vol] 1.03 ng/dL 0.76-1.46 [facility] Work Phone: Globulin (S) [Mass/Vol] 3.7 g/dL 2.2-4.2 [facility] Work Phone: [phone] Urea nitrogen/Creatinine [Mass ratio] 13.0 mg/mg 10-20 [facility] Work Phone: [phone] Laboratory - Hematology and Cell countson 03-22-2022 Erythrocyte distribution width (RBC) [Entitic vol] 45.8 fL 35.1-43.9 [facility] Work Phone: [phone] Erythrocyte distribution width (RBC) [Ratio] 13.1 % 11.6-14.6 [facility] Work Phone: MCH (RBC) [Entitic mass] 30.5 pg 27.0-32.0 [facility] Work Phone: [phone] Nucleated RBC/100 WBC (Bld) [Ratio] 0 % 0-5 [facility] Work Phone: MCHC Auto (RBC) [Mass/Vol]on 03-22-2022 MCHC (RBC) [Mass/Vol] 31.9 g/dL 32-36 [facility] Work Phone: Nitrite Test strip Ql (U)on 03-22-2022 Nitrite Ql (U) Negative Negative [facility] Work Phone: No Panel Informationon 03-22 Estimated GFR (MDRD) Amer 96 mL/min >60 [facility] Work Phone: Comment on above: GFR Calc Estimated GFR (MDRD) Non-Af Amer 79 mL/min >60 [facility] Work Phone: Comment on above: Non- GFR Calc Thyroid Stimulating Hormone (TSH) 0.35 uIU/mL 0.358-3.74 [facility] Work Phone: [phone] Platelets bldon 03-22-2022 Platelets (Bld) [#/Vol] 316 10*3/uL 150-450 [facility] Work Phone: [phone] Protein Test strip Ql (U)on 03-22-2022 Protein Ql (U) Negative Negative [facility] Work Phone: [phone] Segmented neutrophils/100 WB C Auto (Bld)on 03-22-2022 Segmented neutrophils/100 WBC (Bld) 58.9 % 47-70 [facility] Work Phone: [phone] Serum or plasma albumin sancho urement (mass/volume)on 03-22-2022 Albumin [Mass/Vol] 3.4 g/dL 3.2-5.0 [facility] Work Phone: [phone] Serum or plasma albumin/glob ulin mass ratioon 03-22-2022 Albumin/Globulin [Mass ratio] 0.9 {ratio} 0.9-2.4 [facility] Work Phone: [phone] Serum or plasma calcium sancho urement (mass/volume)on 03-22-2022 Calcium [Mass/Vol] 9.6 mg/dL 8.5-10.1 [facility] Work Phone: [phone] Serum or plasma cholesterol in HDL measurement (mass/volume)on 03-22-2022 Cholesterol in HDL [Mass/Vol] 57 mg/dL >40 [facility] Work Phone: Comment on above: The drugs N-Acetylcy steine and Metamizole may falsely depress this assay. Reference Range HDL <40 mg/dL Low HDL Cholesterol HDL >or= 60 mg/dL High HDL Cholesterol Serum or plasma cholesterol in VLDL measurement (mass/volume)on 03-22-2022 Cholesterol in VLDL [Mass/Vol] 22 mg/dL 5-40 [facility] Work Phone: Serum or plasma creatinine m easurement (mass/volume)on 03-22-2022 Creatinine [Mass/Vol] 0.85 mg/dL 0.55-1.02 [facility] Work Phone: Comment on above: The validity of the calculated GFR & GFRAA in patients over 70 years has not been determined. Clinical correlation is essential. Serum or plasma low density lipoprotein (LDL) cholesterol measurement (mass/volume)on 03-22-2022 Cholesterol in LDL [Mass/Vol] 83 mg/dL 0-130 [facility] Work Phone: Serum or plasma urea nitroge n measurement (mass/volume)on 03-22-2022 Urea nitrogen [Mass/Vol] 11 mg/dL 7-18 [facility] Work Phone: Serum or plasma uric acid me asurement (mass/volume)on 03-22-2022 Urate [Mass/Vol] 7.0 mg/dL 2.6-6.0 [facility] Work Phone: Comment on above: The drugs N-Acetylcy steine and Metamizole may falsely depress this assay. Thin prep Papanicolaou smear with manual screeningon 03-22-2022 Thin prep Papanicolaou smear with manual screening 13 U/L 15-37 [facility] Work Phone: Thin prep Papanicolaou smear with manual screening 7 5-15 [facility] Work Phone: Thin prep Papanicolaou smear with manual screening 215 U/L 84-246 [facility] Work Phone: Urine blood detectionon -0 RBC Ql (U) Negative Negative [facility] Work Phone: Urine clarityon 03-22-2022 Clarity (U) Clear Clear [facility] Work Phone: Urine color determinationon 03-22-2022 Color (U) Straw Yellow [facility] Work Phone: Urine glucose detectionon Glucose Ql (U) Normal mg/dl Normal [facility] Work Phone: [phone] Urine leukocyte esterase det ection by dipstickon 03-22-2022 Leukocyte esterase Test strip Ql (U) Negative Negative [facility] Work Phone: Urine pHon 03-22-2022 pH (U) 7.0 [pH] 5.0 - 8.0 [facility] Work Phone: Urine specific gravity measu rementon 03-22-2022 Specific gravity (U) [Rel density] 1.010 1.002-1.030 [facility] Work Phone: Urobilinogen Auto test strip Ql (U)on 03-22-2022 Urobilinogen Ql (U) Normal mg/dl Normal [facility] Work Phone: HIV 1 and HIV-2 antibody ass ay with HIV-1 p24 antigen detectionon 03-07-2022 HIV 1+2 Ab+HIV1 p24 Ag IA Ql Non-Reactive Nonreactive [facility] Work Phone: No Panel Informationon 03-07 Hepatitis B Surface Antigen Non-Reactive Nonreactive [facility] Work Phone: Hepatitis C Antibody Non-Reactive Nonreactive [facility] Work Phone: Comment on above: Non Reactive: < 0.8 Equivocal: >/= 0.8 to < 1.0 Reactive: >/= 1.0The CDC recommends that a reactive/equivocal HCV antibody result be followed up by the HCV Nucleic Acid Amplificationtest (604683) Serum hepatitis B virus surf tracy antibody IgG detectionon 03-07-2022 HBV surface IgG Ql (S) Reactive [facility] Work Phone: Comment on above: Non Reactive: Incons istent with immunity less than <10 mIU/mL Reactive: Consistent with immunity greater than or equal to 10 mIU/mL Laboratory - Microbiology an d Antimicrobial susceptibilityon 02-10-2022 SARS-CoV-2 (COVID-19) RNA TERESA+probe Ql (Unsp spec) Detected [facility] Work Phone: No Panel Informationon 02-10 Influenza Types A,B Rapid (Clinic) Not detected [facility] Work Phone: [phone] Absolute lymphocyte counton 01-11-2022 Lymphocytes Auto (Unsp spec) [#/Vol] 1.75 10*3/uL 0.83-4.51 [facility] Work Phone: [phone] Basophil percentageon 2021 Basophils/100 WBC (Bld) 0.8 % 0-1 [facility] Work Phone: [phone] Bilirubin [Mass/Vol] 0.30 mg/dL 0.20-1.00 [facility] Work Phone: [phone] Comment on above: For patients on eltr ombopag therapy, use of Dimension [place] TBIL is not recommended. Chloride [Moles/Vol] 103 mmol/L 98-107 [facility] Work Phone: Eosinophils/100 WBC (Bld) 2.5 % 0-5 [facility] Work Phone: [phone] Glucose [Mass/Vol] 93 mg/dL 74-106 [facility] Work Phone: Neutrophils (Bld) [#/Vol] 4.9 10*3/uL 2.0-7.7 [facility] Work Phone: Neutrophils/100 WBC (Bld) 65.7 % 47-70 [facility] Work Phone: [phone] Potassium [Moles/Vol] 3.9 mmol/L 3.5-5.1 [facility] Work Phone: [phone] Protein [Mass/Vol] 7.5 g/dL 6.4-8.2 [facility] Work Phone: Sodium [Moles/Vol] 138 mmol/L 136-145 [facility] Work Phone: WBC (Bld) [#/Vol] 7.5 10*3/uL 4.4-11.0 [facility] Work Phone: Blood erythrocytes count (nu mber/volume)on 01-11-2022 RBC (Bld) [#/Vol] 3.88 10*6/uL 4.2-5.4 [facility] Work Phone: [phone] Blood hemoglobin measurement (mass/volume)on 01-11-2022 Hemoglobin (Bld) [Mass/Vol] 12.4 g/dL 12.0-15.0 [facility] Work Phone: Blood lymphocytes/100 leukoc yteson 01-11-2022 Lymphocytes/100 WBC (Bld) 23.3 % 19-41 [facility] Work Phone: Blood monocytes/100 leukocyt eson 01-11-2022 Monocytes/100 WBC (Bld) 7.3 % 0-10 [facility] Work Phone: Blood platelet mean volumeon 01-11-2022 Platelet mean volume (Bld) [Entitic vol] 9.5 fL 6.2-12.0 [facility] Work Phone: [phone] Determination of erythrocyte mean corpuscular volume (MCV)on 01-11-2022 MCV (RBC) [Entitic vol] 109.3 fL 81-99 [facility] Work Phone: Hematocrit Auto (Bld) [Volum e fraction]on 01-11-2022 Hematocrit (Bld) [Volume fraction] 42.4 % 37-47 [facility] Work Phone: [phone] Laboratory - Chemistry and C hemistry - challengeon 01-11-2022 Free T4 [Mass/Vol] 0.96 ng/dL 0.76-1.46 [facility] Work Phone: [phone] ALP [Catalytic activity/Vol] 72 U/L 45-117 [facility] Work Phone: ALT [Catalytic activity/Vol] 18 U/L 13-56 [facility] Work Phone: CO2 [Moles/Vol] 30.0 mmol/L 21.0-32.0 [facility] Work Phone: [phone] Globulin (S) [Mass/Vol] 3.9 g/dL 2.2-4.2 [facility] Work Phone: [phone] Urea nitrogen/Creatinine [Mass ratio] 8.1 mg/mg 10-20 [facility] Work Phone: Laboratory - Hematology and Cell countson 01-11-2022 Erythrocyte distribution width (RBC) [Entitic vol] 57.1 fL 35.1-43.9 [facility] Work Phone: [phone] Erythrocyte distribution width (RBC) [Ratio] 14.1 % 11.6-14.6 [facility] Work Phone: [phone] Immature granulocytes/100 WBC (Bld) 0.400 % 0.0-0.9 [facility] Work Phone: [phone] Comment on above: IG% - Immature Granu locytes (promyelocytes, myelocytes and metamyelocytes) > 1% indicates that a LEFT SHIFT is Present. MCH (RBC) [Entitic mass] 32.0 pg 27.0-32.0 [facility] Work Phone: [phone] Nucleated RBC/100 WBC (Bld) [Ratio] 0 % 0-5 [facility] Work Phone: [phone] MCHC Auto (RBC) [Mass/Vol]on 01-11-2022 MCHC (RBC) [Mass/Vol] 29.2 g/dL 32-36 [facility] Work Phone: [phone] No Panel Informationon 01-11 Thyroid Stimulating Hormone (TSH) 0.32 uIU/mL 0.358-3.74 [facility] Work Phone: [phone] Estimated GFR (MDRD) Amer 112 mL/min >60 [facility] Work Phone: Comment on above: GFR Calc Estimated GFR (MDRD) Non-Af Amer 93 mL/min >60 [facility] Work Phone: Comment on above: Non- GFR Calc Platelets bldon 01-11-2022 Platelets (Bld) [#/Vol] 255 10*3/uL 150-450 [facility] Work Phone: Serum or plasma albumin sancho urement (mass/volume)on 01-11-2022 Albumin [Mass/Vol] 3.6 g/dL 3.2-5.0 [facility] Work Phone: Serum or plasma albumin/glob ulin mass ratioon 01-11-2022 Albumin/Globulin [Mass ratio] 0.9 {ratio} 0.9-2.4 [facility] Work Phone: Serum or plasma calcium sancho urement (mass/volume)on 01-11-2022 Calcium [Mass/Vol] 9.8 mg/dL 8.5-10.1 [facility] Work Phone: Serum or plasma creatinine m easurement (mass/volume)on 01-11-2022 Creatinine [Mass/Vol] 0.74 mg/dL 0.55-1.02 [facility] Work Phone: Comment on above: The validity of the calculated GFR & GFRAA in patients over 70 years has not been determined. Clinical correlation is essential. Serum or plasma urea nitroge n measurement (mass/volume)on 01-11-2022 Urea nitrogen [Mass/Vol] 6 mg/dL 7-18 [facility] Work Phone: Thin prep Papanicolaou smear with manual screeningon 01-11-2022 Thin prep Papanicolaou smear with manual screening 12 U/L 15-37 [facility] Work Phone: Thin prep Papanicolaou smear with manual screening 5 5-15 [facility] Work Phone: Absolute lymphocyte counton 12-27-2021 Lymphocytes Auto (Unsp spec) [#/Vol] 2.52 10*3/uL 0.83-4.51 [facility] Work Phone: Basophil percentageon 2021 Chloride [Moles/Vol] 103 mmol/L 98-107 [facility] Work Phone: Glucose [Mass/Vol] 84 mg/dL 74-106 [facility]: Potassium [Moles/Vol] 3.9 mmol/L 3.5-5.1 [facility] Work Phone: Sodium [Moles/Vol] 138 mmol/L 136-145 [facility]: Basophils/100 WBC (Bld) 0.6 % 0-1 [facility] Work Phone: Eosinophils/100 WBC (Bld) 2.6 % 0-5 [facility] Work Phone: Neutrophils (Bld) [#/Vol] 3.6 10*3/uL 2.0-7.7 [facility] Work Phone: Neutrophils/100 WBC (Bld) 53.3 % 47-70 [facility] Work Phone: WBC (Bld) [#/Vol] 6.8 10*3/uL 4.4-11.0 [facility] Work Phone: Blood erythrocytes count (nu mber/volume)on 12-27-2021 RBC (Bld) [#/Vol] 4.19 10*6/uL 4.2-5.4 [facility] Work Phone: Blood hemoglobin measurement (mass/volume)on 12-27-2021 Hemoglobin (Bld) [Mass/Vol] 12.8 g/dL 12.0-15.0 [facility] Work Phone: Blood lymphocytes/100 leukoc yteson 12-27-2021 Lymphocytes/100 WBC (Bld) 37.0 % 19-41 [facility] Work Phone: Blood monocytes/100 leukocyt eson 12-27-2021 Monocytes/100 WBC (Bld) 6.2 % 0-10 [facility] Work Phone: Blood platelet mean volumeon 12-27-2021 Platelet mean volume (Bld) [Entitic vol] 9.8 fL 6.2-12.0 [facility] Work Phone: Determination of erythrocyte mean corpuscular volume (MCV)on 12-27-2021 MCV (RBC) [Entitic vol] 95.5 fL 81-99 [facility] Work Phone: [phone] Hematocrit Auto (Bld) [Volum e fraction]on 12-27-2021 Hematocrit (Bld) [Volume fraction] 40.0 % 37-47 [facility] Work Phone: Iron measurement (mass/mass) on 12-27-2021 Iron (Unsp spec) [Mass/Mass] 55 ug/dL 50-170 [facility] Work Phone: Laboratory - Chemistry and C hemistry - challengeon 12-27-2021 CO2 [Moles/Vol] 29.0 mmol/L 21.0-32.0 [facility] Work Phone: [phone] Urea nitrogen/Creatinine [Mass ratio] 10.8 mg/mg 10-20 [facility] Work Phone: [phone] Laboratory - Hematology and Cell countson 12-27-2021 Erythrocyte distribution width (RBC) [Entitic vol] 46.8 fL 35.1-43.9 [facility] Work Phone: [phone] Erythrocyte distribution width (RBC) [Ratio] 13.2 % 11.6-14.6 [facility] Work Phone: [phone] Immature granulocytes/100 WBC (Bld) 0.300 % 0.0-0.9 [facility] Work Phone: Comment on above: IG% - Immature Granu locytes (promyelocytes, myelocytes and metamyelocytes) > 1% indicates that a LEFT SHIFT is Present. MCH (RBC) [Entitic mass] 30.5 pg 27.0-32.0 [facility] Work Phone: [phone] Nucleated RBC/100 WBC (Bld) [Ratio] 0 % 0-5 [facility] Work Phone: MCHC Auto (RBC) [Mass/Vol]on 12-27-2021 MCHC (RBC) [Mass/Vol] 32.0 g/dL 32-36 [facility] Work Phone: No Panel Informationon 12-27 Estimated GFR (MDRD) Amer 86 mL/min >60 [facility] Work Phone: Comment on above: GFR Calc Estimated GFR (MDRD) Non-Af Amer 71 mL/min >60 [facility] Work Phone: Comment on above: Non- GFR Calc Total Iron Binding Capacity 413 ug/dL 250-450 [facility] Work Phone: Platelets bldon 12-27-2021 Platelets (Bld) [#/Vol] 346 10*3/uL 150-450 [facility] Work Phone: Serum or plasma calcium sancho urement (mass/volume)on 12-27-2021 Calcium [Mass/Vol] 9.6 mg/dL 8.5-10.1 [facility] Work Phone: Serum or plasma creatinine m easurement (mass/volume)on 12-27-2021 Creatinine [Mass/Vol] 0.93 mg/dL 0.55-1.02 [facility] Work Phone: Comment on above: The validity of the calculated GFR & GFRAA in patients over 70 years has not been determined. Clinical correlation is essential. Serum or plasma ferritin vinayak surement (mass/volume)on 12-27-2021 Ferritin [Mass/Vol] 36 ng/mL 8-252 [facility] Work Phone: Serum or plasma iron saturat ion measurement (mass fraction)on 12-27-2021 Iron saturation [Mass fraction] 13.3 % 15.0-55.0 [facility] Work Phone: Serum or plasma urea nitroge n measurement (mass/volume)on 12-27-2021 Urea nitrogen [Mass/Vol] 10 mg/dL 7-18 [facility] Work Phone: Thin prep Papanicolaou smear with manual screeningon 12-27-2021 Thin prep Papanicolaou smear with manual screening 6 5-15 [facility] Work Phone: Absolute lymphocyte counton 10-21-2021 Lymphocytes Auto (Unsp spec) [#/Vol] 1.87 10*3/uL 0.83-4.51 [facility] Work Phone: Basophil percentageon 2021 Basophils/100 WBC (Bld) 0.8 % 0-1 [facility] Work Phone: Eosinophils/100 WBC (Bld) 2.0 % 0-5 [facility] Work Phone: Neutrophils (Bld) [#/Vol] 3.8 10*3/uL 2.0-7.7 [facility] Work Phone: Neutrophils/100 WBC (Bld) 59.2 % 47-70 [facility] Work Phone: WBC (Bld) [#/Vol] 6.5 10*3/uL 4.4-11.0 [facility] Work Phone: Bilirubin [Mass/Vol] 0.20 mg/dL 0.20-1.00 [facility] Work Phone: Comment on above: For patients on eltr ombopag therapy, use of Dimension [place] TBIL is not recommended. Chloride [Moles/Vol] 105 mmol/L 98-107 [facility] Work Phone: Glucose [Mass/Vol] 83 mg/dL 74-106 [facility] Work Phone: Potassium [Moles/Vol] 4.1 mmol/L 3.5-5.1 [facility] Work Phone: Protein [Mass/Vol] 7.3 g/dL 6.4-8.2 [facility] Work Phone: Sodium [Moles/Vol] 137 mmol/L 136-145 [facility] Work Phone: Blood erythrocytes count (nu mber/volume)on 10-21-2021 RBC (Bld) [#/Vol] 3.78 10*6/uL 4.2-5.4 [facility] Work Phone: Blood hemoglobin measurement (mass/volume)on 10-21-2021 Hemoglobin (Bld) [Mass/Vol] 11.6 g/dL 12.0-15.0 [facility] Work Phone: Blood lymphocytes/100 leukoc yteson 10-21-2021 Lymphocytes/100 WBC (Bld) 28.9 % 19-41 [facility] Work Phone: Blood monocytes/100 leukocyt eson 10-21-2021 Monocytes/100 WBC (Bld) 8.8 % 0-10 [facility] Work Phone: Blood platelet mean volumeon 10-21-2021 Platelet mean volume (Bld) [Entitic vol] 9.4 fL 6.2-12.0 [facility] Work Phone: Determination of erythrocyte mean corpuscular volume (MCV)on 10-21-2021 MCV (RBC) [Entitic vol] 96.6 fL 81-99 [facility] Work Phone: Hematocrit Auto (Bld) [Volum e fraction]on 10-21-2021 Hematocrit (Bld) [Volume fraction] 36.5 % 37-47 [facility] Work Phone: [phone] Laboratory - Chemistry and C hemistry - challengeon 10-21-2021 ALP [Catalytic activity/Vol] 62 U/L 45-117 [facility] Work Phone: ALT [Catalytic activity/Vol] 22 U/L 13-56 [facility] Work Phone: CO2 [Moles/Vol] 29.0 mmol/L 21.0-32.0 [facility] Work Phone: Free T4 [Mass/Vol] 1.08 ng/dL 0.76-1.46 [facility] Work Phone: Globulin (S) [Mass/Vol] 3.9 g/dL 2.2-4.2 [facility] Work Phone: Urea nitrogen/Creatinine [Mass ratio] 12.0 mg/mg 10-20 [facility] Work Phone: Laboratory - Hematology and Cell countson 10-21-2021 Erythrocyte distribution width (RBC) [Entitic vol] 46.0 fL 35.1-43.9 [facility] Work Phone: Erythrocyte distribution width (RBC) [Ratio] 13.1 % 11.6-14.6 [facility] Work Phone: Immature granulocytes/100 WBC (Bld) 0.300 % 0.0-0.9 [facility] Work Phone: Comment on above: IG% - Immature Granu locytes (promyelocytes, myelocytes and metamyelocytes) > 1% indicates that a LEFT SHIFT is Present. MCH (RBC) [Entitic mass] 30.7 pg 27.0-32.0 [facility] Work Phone: Nucleated RBC/100 WBC (Bld) [Ratio] 0 % 0-5 [facility] Work Phone: MCHC Auto (RBC) [Mass/Vol]on 10-21-2021 MCHC (RBC) [Mass/Vol] 31.8 g/dL 32-36 [facility] Work Phone: No Panel Informationon 10-21 Estimated GFR (MDRD) Amer 98 mL/min >60 [facility] Work Phone: Comment on above: GFR Calc Estimated GFR (MDRD) Non-Af Amer 81 mL/min >60 [facility] Work Phone: Comment on above: Non- GFR Calc Thyroid Stimulating Hormone (TSH) 0.15 uIU/mL 0.358-3.74 [facility] Work Phone: Platelets bldon 10-21-2021 Platelets (Bld) [#/Vol] 306 10*3/uL 150-450 [facility] Work Phone: Serum or plasma albumin sancho urement (mass/volume)on 10-21-2021 Albumin [Mass/Vol] 3.4 g/dL 3.2-5.0 [facility] Work Phone: Serum or plasma albumin/glob ulin mass ratioon 10-21-2021 Albumin/Globulin [Mass ratio] 0.9 {ratio} 0.9-2.4 [facility] Work Phone: Serum or plasma calcium sancho urement (mass/volume)on 10-21-2021 Calcium [Mass/Vol] 9.2 mg/dL 8.5-10.1 [facility] Work Phone: Serum or plasma creatinine m easurement (mass/volume)on 10-21-2021 Creatinine [Mass/Vol] 0.83 mg/dL 0.55-1.02 [facility] Work Phone: Comment on above: The validity of the calculated GFR & GFRAA in patients over 70 years has not been determined. Clinical correlation is essential. Serum or plasma urea nitroge n measurement (mass/volume)on 10-21-2021 Urea nitrogen [Mass/Vol] 10 mg/dL 7-18 [facility] Work Phone: Thin prep Papanicolaou smear with manual screeningon 10-21-2021 Thin prep Papanicolaou smear with manual screening 13 U/L 15-37 [facility] Work Phone: Thin prep Papanicolaou smear with manual screening 3 5-15 [facility] Work Phone: Bilirubin Test strip Ql (U)o n 09-14-2021 Bilirubin Ql (U) Negative Negative [facility] Work Phone: Ketones Test strip Ql (U)on 09-14-2021 Ketones Ql (U) Negative Negative [facility] Work Phone: Nitrite Test strip Ql (U)on 09-14-2021 Nitrite Ql (U) Negative Negative [facility] Work Phone: Protein Test strip Ql (U)on 09-14-2021 Protein Ql (U) Negative Negative [facility] Work Phone: Urine blood detectionon 03-0 RBC Ql (U) Negative Negative [facility] Work Phone: Urine clarityon 09-14-2021 Clarity (U) Clear Clear [facility] Work Phone: Urine color determinationon 09-14-2021 Color (U) Yellow Yellow [facility] Work Phone: Urine creatinine measurement (mass/volume)on 09-14-2021 Creatinine (U) [Mass/Vol] 20.20 mg/dL NO RANGE EST. [facility] Work Phone: Urine glucose detectionon Glucose Ql (U) Normal mg/dl Normal [facility] Work Phone: [phone] Urine leukocyte esterase det ection by dipstickon 09-14-2021 Leukocyte esterase Test strip Ql (U) Negative Negative [facility] Work Phone: [phone] Urine pHon 09-14-2021 pH (U) 7.0 [pH] 5.0 - 8.0 [facility] Work Phone: Urine protein measurement (m ass/volume)on 09-14-2021 Protein (U) [Mass/Vol] mg/dL 0.0-11.8 [facility] Work Phone: Urine specific gravity measu rementon 09-14-2021 Specific gravity (U) [Rel density] 1.005 1.002-1.030 [facility] Work Phone: [phone] Urobilinogen Auto test strip Ql (U)on 09-14-2021 Urobilinogen Ql (U) Normal mg/dl Normal [facility] Work Phone: [phone] Absolute lymphocyte counton 09-13-2021 Lymphocytes Auto (Unsp spec) [#/Vol] 1.48 10*3/uL 0.83-4.51 [facility] Work Phone: Basophil percentageon 2021 Basophil percentage 4.7 AI 0.0-0.9 [facility] Work Phone: Basophil percentage < 0.2 AI 0.0-0.9 [facility] Work Phone: Basophils/100 WBC (Bld) 0.7 % 0-1 [facility] Work Phone: Bilirubin [Mass/Vol] 0.30 mg/dL 0.20-1.00 [facility] Work Phone: Comment on above: For patients on eltr ombopag therapy, use of Dimension [place] TBIL is not recommended. Chloride [Moles/Vol] 105 mmol/L 98-107 [facility] Work Phone: Eosinophils/100 WBC (Bld) 1.8 % 0-5 [facility] Work Phone: Glucose [Mass/Vol] 96 mg/dL 74-106 [facility] Work Phone: Neutrophils (Bld) [#/Vol] 3.9 10*3/uL 2.0-7.7 [facility] Work Phone: Neutrophils/100 WBC (Bld) 64.9 % 47-70 [facility] Work Phone: Potassium [Moles/Vol] 3.9 mmol/L 3.5-5.1 [facility] Work Phone: Protein [Mass/Vol] 7.4 g/dL 6.4-8.2 [facility] Work Phone: Sodium [Moles/Vol] 139 mmol/L 136-145 [facility] Work Phone: WBC (Bld) [#/Vol] 6.0 10*3/uL 4.4-11.0 [facility] Work Phone: Blood erythrocytes count (nu mber/volume)on 09-13-2021 RBC (Bld) [#/Vol] 3.76 10*6/uL 4.2-5.4 [facility] Work Phone: Blood hemoglobin measurement (mass/volume)on 09-13-2021 Hemoglobin (Bld) [Mass/Vol] 11.7 g/dL 12.0-15.0 [facility] Work Phone: Blood lymphocytes/100 leukoc yteson 09-13-2021 Lymphocytes/100 WBC (Bld) 24.7 % 19-41 [facility] Work Phone: [phone] Blood monocytes/100 leukocyt eson 09-13-2021 Monocytes/100 WBC (Bld) 7.7 % 0-10 [facility] Work Phone: Blood platelet mean volumeon 09-13-2021 Platelet mean volume (Bld) [Entitic vol] 9.3 fL 6.2-12.0 [facility] Work Phone: CNOVon 09-13-2021 CNOV Office Visit (RHBATH ) ALMA ADEN ([id number]) 1980 F Date Time Provider Department 09/13/21 8:20 AM [facility] During your visit today, we recorded the [...] the mornings and evenings. 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 Swelling in hands towards the end of [...] (more content not included)... Normal [facility] Anahy 09-13-2021 CHANDLER Telephone (RULTTB) ALMA ADEN ([id number]) 1980 F Date Time Provider Department 09/13/21 [...] LEE on 09/15/21 Normal [facility] Determination of erythrocyte mean corpuscular volume (MCV)on 09-13-2021 MCV (RBC) [Entitic vol] 95.2 fL 81-99 [facility] Work Phone: Hematocrit Auto (Bld) [Volum e fraction]on 09-13-2021 Hematocrit (Bld) [Volume fraction] 35.8 % 37-47 [facility] Work Phone: Iron measurement (mass/mass) on 09-13-2021 Iron (Unsp spec) [Mass/Mass] 65 ug/dL 50-170 [facility] Work Phone: Laboratory - Chemistry and C hemistry - challengeon 09-13-2021 ALP [Catalytic activity/Vol] 64 U/L 45-117 [facility] Work Phone: ALT [Catalytic activity/Vol] 25 U/L 13-56 [facility] Work Phone: [phone] CK [Catalytic activity/Vol] 62 U/L 26-192 [facility] Work Phone: CO2 [Moles/Vol] 29.0 mmol/L 21.0-32.0 [facility] Work Phone: Cobalamin (Vitamin B12) [Mass/Vol] 405 pg/mL 211-911 [facility] Work Phone: Globulin (S) [Mass/Vol] 3.8 g/dL 2.2-4.2 [facility] Work Phone: Urea nitrogen/Creatinine [Mass ratio] 14.5 mg/mg 10-20 [facility] Work Phone: Laboratory - Hematology and Cell countson 09-13-2021 Erythrocyte distribution width (RBC) [Entitic vol] 47.2 fL 35.1-43.9 [facility] Work Phone: Erythrocyte distribution width (RBC) [Ratio] 13.5 % 11.6-14.6 [facility] Work Phone: Immature granulocytes/100 WBC (Bld) 0.200 % 0.0-0.9 [facility] Work Phone: Comment on above: IG% - Immature Granu locytes (promyelocytes, myelocytes and metamyelocytes) > 1% indicates that a LEFT SHIFT is Present. MCH (RBC) [Entitic mass] 31.1 pg 27.0-32.0 [facility] Work Phone: Nucleated RBC/100 WBC (Bld) [Ratio] 0 % 0-5 [facility] Work Phone: MCHC Auto (RBC) [Mass/Vol]on 09-13-2021 MCHC (RBC) [Mass/Vol] 32.7 g/dL 32-36 [facility] Work Phone: No Panel Informationon 09-13 Anti-Gliadin IgA Antibody 4 units 0-19 [facility] Work Phone: Comment on above: Negative 0 - 19 Weak Positive 20 - 30 Moderate to Strong Positive >30 Anti-Gliadin IgG Antibody 2 units 0-19 [facility] Work Phone: Comment on above: Negative 0 - 19 Weak Positive 20 - 30 Moderate to Strong Positive >30 Estimated GFR (MDRD) Amer 121 mL/min >60 [facility] Work Phone: Comment on above: GFR Calc Estimated GFR (MDRD) Non-Af Amer 100 mL/min >60 [facility] Work Phone: Comment on above: Non- GFR Calc BIOMEDICAL TECHNICIAN Antibody 0.4 AI 0.0-0.9 [facility] Work Phone: Tissue Transglutaminase IgG Ab <2 U/mL 0-5 [facility] Work Phone: Comment on above: Negative 0 - 5 Weak Positive 6 - 9 Positive >9Performed at: [facility] [address] [id number] Director: Levi Covarrubias PhD, Phone: [phone] at: [facility] [address] [id number] Director: Joyce Tatum MD, Phone: [phone] Total Iron Binding Capacity 386 ug/dL 250-450 [facility] Work Phone: Vitamin D 25-Hydroxy 25.3 ng/mL [facility] Work Phone: Comment on above: Vitamin D 25(OH) Sta tus Range Deficiency <20 ng/mL (50nmol/L) Insufficiency 20 - 30 ng/mL (50 - 75 nmol/L) Sufficiency 30 - 100 ng/mL (75 - 250 nmol/L) Toxicity >100 ng/mL (>250 nmol/L) Platelets bldon 09-13-2021 Platelets (Bld) [#/Vol] 317 10*3/uL 150-450 [facility] Work Phone: Serum DNA double strand anti body assay (units/volume)on 09-13-2021 DNA double strand Ab Qn (S) 1 [IU]/mL 0-9 [facility] Work Phone: Comment on above: Negative <5 Equivoca l 5 - 9 Positive >9 Serum Humphries extractable nucl ear antibody detectionon 09-13-2021 Humphries extractable nuclear Ab Ql (S) <0.2 AI 0.0-0.9 [facility] Work Phone: Serum cyclic citrullinated p eptide IgG antibody assay (units/volume)on 09-13-2021 Cyclic citrullinated peptide IgG Qn 7 units 0-19 [facility] Work Phone: Comment on above: Negative <20 Weak po sitive 20 - 39 Moderate positive 40 - 59 Strong positive >59 Serum nuclear antibody titer by immunofluorescenceon 09-13-2021 Nuclear Ab IF (S) [Titer] Negative . [facility] Work Phone: Comment on above: Negative <1:80 Borde rline 1:80 Positive >1:80ICAP nomenclature: AC-[id number] more information about Hep-2 cell patterns useANApatterns.org, the official website for theInternational Consensus on Antinuclear Antibody (SHAWANDA)Patterns (ICAP).Performed at: [address] [id number] Director: Levi Covarrubias PhD, Phone: [phone] Serum or plasma albumin sancho urement (mass/volume)on 09-13-2021 Albumin [Mass/Vol] 3.6 g/dL 3.2-5.0 [facility] Work Phone: Serum or plasma albumin/glob ulin mass ratioon 09-13-2021 Albumin/Globulin [Mass ratio] 0.9 {ratio} 0.9-2.4 [facility] Work Phone: Serum or plasma calcium sancho urement (mass/volume)on 09-13-2021 Calcium [Mass/Vol] 9.5 mg/dL 8.5-10.1 [facility] Work Phone: Serum or plasma creatinine m easurement (mass/volume)on 09-13-2021 Creatinine [Mass/Vol] 0.69 mg/dL 0.55-1.02 [facility] Work Phone: Comment on above: The validity of the calculated GFR & GFRAA in patients over 70 years has not been determined. Clinical correlation is essential. Serum or plasma ferritin vinayak surement (mass/volume)on 09-13-2021 Ferritin [Mass/Vol] 38 ng/mL 8-252 [facility] Work Phone: Serum or plasma iron saturat ion measurement (mass fraction)on 09-13-2021 Iron saturation [Mass fraction] 16.8 % 15.0-55.0 [facility] Work Phone: Serum or plasma urea nitroge n measurement (mass/volume)on 09-13-2021 Urea nitrogen [Mass/Vol] 10 mg/dL 7-18 [facility] Work Phone: Serum rheumatoid factor dete ctionon 09-13-2021 Rheumatoid factor Ql (S) < 10.0 IU/mL <15 [facility] Work Phone: Serum tissue transglutaminas e IgA antibody assay (units/volume)on 09-13-2021 tTG IgA Qn (S) <2 U/mL 0-3 [facility] Work Phone: Comment on above: Negative 0 - 3 Weak Positive 4 - 10 Positive >10 Tissue Transglutaminase (tTG) has been identified as the endomysial antigen. Studies have demonstr- ated that endomysial IgA antibodies have over 99% specificity for gluten sensitive enteropathy. Thin prep Papanicolaou smear with manual screeningon 09-13-2021 Thin prep Papanicolaou smear with manual screening 16 U/L 15-37 [facility] Work Phone: Thin prep Papanicolaou smear with manual screening 5 5-15 [facility] Work Phone: [phone] Laboratory - Hematology and Cell countson 08-19-2021 HbA1c (Bld) [Mass fraction] 5.7 % [facility] Work Phone: [phone] Absolute lymphocyte counton 07-26-2021 Lymphocytes Auto (Unsp spec) [#/Vol] 2.10 10*3/uL 0.83-4.51 [facility] Work Phone: [phone] Basophil percentageon 2021 Basophils/100 WBC (Bld) 0.5 % 0-1 [facility] Work Phone: [phone] Bilirubin [Mass/Vol] 0.40 mg/dL 0.20-1.00 [facility] Work Phone: [phone] Comment on above: For patients on eltr ombopag therapy, use of Dimension [place] TBIL is not recommended. Chloride [Moles/Vol] 104 mmol/L 98-107 [facility] Work Phone: Eosinophils/100 WBC (Bld) 2.9 % 0-5 [facility] Work Phone: [phone] Glucose [Mass/Vol] 100 mg/dL 74-106 [facility] Work Phone: Comment on above: Fasting Glucose resu lt from 100 to 125 mg/dL suggests IMPAIRED HOMEOSTASIS per A.D.A. criteria.Please note revised GLUCOSE reference range effective 2017. Neutrophils (Bld) [#/Vol] 4.6 10*3/uL 2.0-7.7 [facility] Work Phone: [phone] Neutrophils/100 WBC (Bld) 61.0 % 47-70 [facility] Work Phone: [phone] Potassium [Moles/Vol] 3.7 mmol/L 3.5-5.1 [facility] Work Phone: [phone] Protein [Mass/Vol] 7.8 g/dL 6.4-8.2 [facility] Work Phone: [phone] Sodium [Moles/Vol] 138 mmol/L 136-145 [facility] Work Phone: [phone] WBC (Bld) [#/Vol] 7.5 10*3/uL 4.4-11.0 [facility] Work Phone: [phone] Blood erythrocytes count (nu mber/volume)on 07-26-2021 RBC (Bld) [#/Vol] 3.88 10*6/uL 4.2-5.4 [facility] Work Phone: [phone] Blood hemoglobin measurement (mass/volume)on 07-26-2021 Hemoglobin (Bld) [Mass/Vol] 11.7 g/dL 12.0-15.0 [facility] Work Phone: Blood lymphocytes/100 leukoc yteson 07-26-2021 Lymphocytes/100 WBC (Bld) 28.1 % 19-41 [facility] Work Phone: Blood monocytes/100 leukocyt eson 07-26-2021 Monocytes/100 WBC (Bld) 7.0 % 0-10 [facility] Work Phone: Blood platelet mean volumeon 07-26-2021 Platelet mean volume (Bld) [Entitic vol] 9.3 fL 6.2-12.0 [facility] Work Phone: [phone] Determination of erythrocyte mean corpuscular volume (MCV)on 07-26-2021 MCV (RBC) [Entitic vol] 94.8 fL 81-99 [facility] Work Phone: [phone] Hematocrit Auto (Bld) [Volum e fraction]on 07-26-2021 Hematocrit (Bld) [Volume fraction] 36.8 % 37-47 [facility] Work Phone: [phone] Laboratory - Chemistry and C hemistry - challengeon 07-26-2021 ALP [Catalytic activity/Vol] 71 U/L 45-117 [facility] Work Phone: [phone] ALT [Catalytic activity/Vol] 21 U/L 13-56 [facility] Work Phone: [phone] CO2 [Moles/Vol] 26.0 mmol/L 21.0-32.0 [facility] Work Phone: Globulin (S) [Mass/Vol] 4.2 g/dL 2.2-4.2 [facility] Work Phone: Urea nitrogen/Creatinine [Mass ratio] 12.2 mg/mg 10-20 [facility] Work Phone: Laboratory - Hematology and Cell countson 07-26-2021 Erythrocyte distribution width (RBC) [Entitic vol] 47.2 fL 35.1-43.9 [facility] Work Phone: Erythrocyte distribution width (RBC) [Ratio] 13.7 % 11.6-14.6 [facility] Work Phone: Immature granulocytes/100 WBC (Bld) 0.500 % 0.0-0.9 [facility] Work Phone: Comment on above: IG% - Immature Granu locytes (promyelocytes, myelocytes and metamyelocytes) > 1% indicates that a LEFT SHIFT is Present. MCH (RBC) [Entitic mass] 30.2 pg 27.0-32.0 [facility] Work Phone: Nucleated RBC/100 WBC (Bld) [Ratio] 0 % 0-5 [facility] Work Phone: MCHC Auto (RBC) [Mass/Vol]on 07-26-2021 MCHC (RBC) [Mass/Vol] 31.8 g/dL 32-36 [facility] Work Phone: No Panel Informationon 07-26 Estimated GFR (MDRD) Amer 113 mL/min >60 [facility] Work Phone: Comment on above: GFR Calc Estimated GFR (MDRD) Non-Af Amer 93 mL/min >60 [facility] Work Phone: Comment on above: Non- GFR Calc Platelets bldon 07-26-2021 Platelets (Bld) [#/Vol] 310 10*3/uL 150-450 [facility] Work Phone: Serum or plasma albumin sancho urement (mass/volume)on 07-26-2021 Albumin [Mass/Vol] 3.6 g/dL 3.2-5.0 [facility] Work Phone: Serum or plasma albumin/glob ulin mass ratioon 07-26-2021 Albumin/Globulin [Mass ratio] 0.9 {ratio} 0.9-2.4 [facility] Work Phone: Serum or plasma calcium sancho urement (mass/volume)on 07-26-2021 Calcium [Mass/Vol] 9.8 mg/dL 8.5-10.1 [facility] Work Phone: Serum or plasma creatinine m easurement (mass/volume)on 07-26-2021 Creatinine [Mass/Vol] 0.74 mg/dL 0.55-1.02 [facility] Work Phone: Comment on above: The validity of the calculated GFR & GFRAA in patients over 70 years has not been determined. Clinical correlation is essential. Serum or plasma urea nitroge n measurement (mass/volume)on 07-26-2021 Urea nitrogen [Mass/Vol] 9 mg/dL 7-18 [facility] Work Phone: Thin prep Papanicolaou smear with manual screeningon 07-26-2021 Thin prep Papanicolaou smear with manual screening 14 U/L 15-37 [facility] Work Phone: Thin prep Papanicolaou smear with manual screening 8 5-15 [facility] Work Phone: Hepatitis C RNA by PCRon Hepatitis C RNA by PCR SEE BELOW Normal [facility] Comment on above: Result Comment: Hepa titis C RNA SEE BELOW IU/mLHCV RNA not detected by PCR.Reference Range: Negative for HCV RNAThe Linear Range of this assay is 15 IU/mL to 100,000,000 IU/mL.Performing Laboratory:[facility] [place] [address] Performed By: #### S URG ####[place] [address] Syphilis IgG with Confon Syphilis IgG with Conf SEE BELOW Normal [facility] Comment on above: Result Comment: Syph ilis [...] Not IndicatedSyphilis Interpretati SEE BELOWTest Not IndicatedPerforming Laboratory:[facility] [place] [address] Performed By: #### S URG ####[address] [address] HIV Screenon 07-05-2017 HIV Screen Negative Normal Nonreactive [facility] Comment on above: Performed By: #### S URG ####[place] [address] Hep. B Surface Agon 07-05-20 Hep.B Surface Ag Negative Normal Negative [facility] Comment on above: Performed By: #### S URG ####[address] [address] Hepatitis C Antibodyon 07-05 Hepatitis C Ab Negative Normal Negative [facility] Comment on above: Performed By: #### S URG ####[address] [address] Ferritinon 07-04-2017 Ferritin 8.30 ng/mL Normal 8.00-252.00 [facility] Comment on above: Performed By: #### S URG ####[address] [address] Iron Binding Cap.on 07-04-20 Iron Binding Cap. 356 ug/dL Normal 250-450 [facility] Comment on above: Performed By: #### S URG ####[address] [address] Iron Serumon 07-04-2017 Iron Serum 44 ug/dL Low 50-170 [facility] Comment on above: Performed By: #### S URG ####[address] [address] Basic Panelon 04-27-2017 Creatinine 0.98 mg/dL High 0.51-0.95 [facility] Comment on above: Performed By: #### S URG ####[place] [address] Anion gap 11 mmol/L Normal 8-16 [facility] Comment on above: Performed By: #### S URG ####[address] [address] CO2 26 mmol/L Normal 21-32 [facility] Comment on above: Performed By: #### S URG ####[address] [address] Glucose mass conc 99 mg/dL Normal 70-99 [facility] Comment on above: Performed By: #### S URG ####[place] [address] Urea nitrogen 12 mg/dL Normal 7-18 [facility] Comment on above: Performed By: #### S URG ####[address] [address] Calcium 9.1 mg/dL Normal 8.5-10.1 [facility] Comment on above: Performed By: #### S URG ####[address] [address] Chloride 103 mmol/L Normal 98-107 [facility] Comment on above: Performed By: #### S URG ####[address] [address] Potassium molar conc 4.0 mmol/L Normal 3.5-5.1 [facility] Comment on above: Performed By: #### S URG ####[place] [address] Sodium 136 mmol/L Normal 136-145 [facility] Comment on above: Performed By: #### S URG ####[place] [address] Ferritinon 04-27-2017 Ferritin 9.90 ng/mL Normal 8.00-252.00 [facility] Comment on above: Performed By: #### S URG ####[address] [address] Hemogram/Diffon 04-27-2017 Basophils Auto #/vol (Bld) 0.06 thou/cmm Normal 0.01-0.08 [facility] Comment on above: Performed By: #### C BCD1 ####[address] [address] Basophils/100 WBC Auto (Bld) 1.0 % Normal [facility] Comment on above: Performed By: #### C BCD1 ####[address] [address] Eosinophils 0.22 thou/cmm Normal 0.00-0.31 [facility] Comment on above: Performed By: #### C BCD1 ####[address] [address] Eosinophils/100 leukocytes 3.7 % Normal [facility] Comment on above: Performed By: #### C BCD1 ####[address] [address] Erythrocyte distribution width Auto Ratio (RBC) 14.3 % Normal 11.7-14.4 [facility] Comment on above: Performed By: #### C BCD1 ####[address] [address] Erythrocytes (RBC) 3.88 mil/cmm Low 3.93-5.22 [facility] Comment on above: Performed By: #### C BCD1 ####[address] [address] Hematocrit (HCT) 35.6 % Normal 34.1-44.9 [facility] Comment on above: Performed By: #### C BCD1 ####[address] [address] Hemoglobin mass conc (Bld) 11.7 g/dL Normal 11.2-15.7 [facility] Comment on above: Performed By: #### C BCD1 ####[place] [address] Immature Grans 0.20 % Normal [facility] Comment on above: Performed By: #### C BCD1 ####[place] [address] Immature Grans # 0.01 thou/cmm Normal 0.00-0.05 [facility] Comment on above: Performed By: #### C BCD1 ####[place] [address] Lymphocytes 1.94 thou/cmm Normal 1.18-3.74 [facility] Comment on above: Performed By: #### C BCD1 ####[place] [address] Lymphocytes/100 leukocytes 32.3 % Normal [facility] Comment on above: Performed By: #### C BCD1 ####[place] [address] MCH 30.2 pg Normal 25.6-32.2 [facility] Comment on above: Performed By: #### C BCD1 ####[place] [address] MCHC mass conc (RBC) 32.9 % Normal 31.6-34.8 [facility] Comment on above: Performed By: #### C BCD1 ####[place] [address] MCV 91.8 fL Normal 79.4-94.8 [facility] Comment on above: Performed By: #### C BCD1 ####[place] [address] Monocytes 0.38 thou/cmm Normal 0.27-0.70 [facility] Comment on above: Performed By: #### C BCD1 ####[place] [address] Monocytes/100 leukocytes 6.3 % Normal [facility] Comment on above: Performed By: #### C BCD1 ####[place] [address] Platelet mean volume (PMV) 10.1 fL Normal 9.4-12.3 [facility] Comment on above: Performed By: #### C BCD1 ####[facility] [place] [address] Platelets 313 thou/cmm Normal 182-369 [facility] Comment on above: Performed By: #### C BCD1 ####[place] [id number] RDW SD 48.3 fl High 36.4-46.3 [facility] Comment on above: Performed By: #### C BCD1 ####[place] [address] Seg Neutrophil 56.5 % Normal [facility] Comment on above: Performed By: #### C BCD1 ####[place] [address] Seg. Neut.# 3.40 thou/cmm Normal 1.56-6.13 [facility] Comment on above: Performed By: #### C BCD1 ####[place] [address] WBC (Leukocytes) 6.01 thou/cmm Normal 3.98-10.04 [facility] Comment on above: Performed By: #### C BCD1 ####[place] [address] Iron Binding Cap.on 04-27-20 17 Iron Binding Cap. 388 ug/dL Normal 250-450 [facility] Comment on above: Performed By: #### I BC ####[place] [address] Iron Serumon 04-27-2017 Iron Serum 33 ug/dL Low 50-170 [facility] Comment on above: Performed By: #### I JIMMY ####[place] [address] HPV High Riskon 04-19-2017 HPV High Risk SEE BELOW Normal [facility] Comment on above: Result Comment: HPV MRNA E6/E7 Not Detected NOT DETECTEDThis test was performed using the APTIMA(R) HPV Assay([employer]This assay detects E6/E7 viral messenger RNA (mRNA)from 14 high-risk HPV types (16,18,31,33,35,39,45,51,52,56,58,59,66,68).For additional information please refer to:[email or web address]/faq/[email or web address](This link is being provided for informational/educational purposes only.)Test Performed by [facility],[address] [place] [id number] Brunson M.D., Ph.D., Director of [phone], [place] [id number] Performed By: #### H PVRQ ####[place] [address] HPV High Riskon 04-17-2017 Cytology Normal [facility] [facility] Comment on above: Performed By: #### H PVRQ ####[place] [address] [place] Venipunctureon 03-18 [place] Venipuncture COMPLETED Normal [facility] Comment on above: Performed By: #### M VENP ####[place] [address] TSH, 3rd generationon 2016 TSH, 3rd generation 2.080 uIU/mL Normal 0.358-3.740 [facility] Comment on above: Performed By: #### T SH3 ####[place] [address] Pap,Cyto Gynon 04-13-2017 Pap,Cyto Supervisor Files Test performed at [place] [address]NAME: ALMA ADEN [id number] REQUESTING: SLAVA BEYER D.O.SPECIMEN: TP CERVICAL/ENDOCERVICAL HPV REGARDLESSRelevant History:LMP: 03/28/2017SPECIMEN ADEQUACYSATISFACTORY FOR EVALUATION. ENDOCERVICAL/TRANSFORMATION ZONECOMPONENTS PRESENT.INTERPRETATION/RESU LTNEGATIVE FOR INTRAEPITHELIAL LESION OR MALIGNANCY.ANCILLARY TESTINGHPV mRNA E6/E7 - Not Detected for HIGH RISK HPV. Please see additionalreport from [facility].Electronically signed: 04/19/2017Screened by: LEAH ALARCON(ASC)Signed Out by: LEAH ALARCON([facility])The Pap test serves as a screening tool for early detection of cervical cancer. The Pap test does not represent a final diagnostic test forcervical cancer. Furthermore, the Pap test was not designed to screenfor other malignancies (endometrial, ovarian cancer, etc....). Falsenegatives and false positives have occurred. If clinically indicated,further patient evaluation is recommended.Printed on: April 19, 2017 Page 1 of 1 Normal [facility] Comment on above: Performed By: #### C YTOP ####[address] [address] OPERATIVE REPORTon OPERATIVE REPORT [facility] Operative ReportSURGEON: GT Alston RENEA MMRN: [id number] ACCTNUM: [id number] OF SURGERY: 02/06/2017DATE OF : 1980 SEX/AGE: F/36PATIENT TYPE: [facility] SVC: LOCATION:ADMIT DATE: 02/06/2017DATE OF SURGERY: [...] recovery in stable condition. [address] [place] [address] Operative ReportPATIENT NAME: ALMA ADEN [facility]#: [id number] ACCTNUM: [id number] her findings with significant gastritis with a small gastric ulcer, I would increase her proton pump inhibitortherapy twice daily and also add Carafate therapy. I would like to re-scope her in 6 to 8 weeks time to reassessfor active peptic ulcer disease as this is a contraindication to bariatric surgery. Signed: Nando ALSTON MD 02/15/2017 10:05 EDTCD:modlD: 02/06/2017 12:37:52T: 02/06/2017 23:44:54Job #: [id number] Page 2 of 1 Normal [facility] OPERATIVE REPORT PDF Normal [facility] Surgical Tissue Examon 02-06 Surgical Tissue Exam Test performed at A [address] [address]DSIP: ALMA ADEN [id number] REQUESTING: TONY ALVAREZ MDFINAL DIAGNOSIS:A) GASTRIC ANTRUM, [...] 15:58PRINTED: 02/07/2017 Page 1 of 1 Normal [facility] Comment on above: Performed By: #### S URG ####[address] [address] Urine HCG, Qual.on 7 HCG.beta subunit ( test) Ql (U) Negative Normal Negative [facility] Comment on above: Performed By: #### H CGUR ####[address] [address] Specific [place], Ur 1.016 Normal 1.005-1.030 [facility] Comment on above: Performed By: #### H CGUR ####[address] [address] Clostridium difficile detect ion by polymerase chain reaction C. difficile DNA TERESA+probe Ql (Unsp spec) [facility] Work Phone: EP Panel Gastrointestinal pathogens panel TERESA+probe (Stl) [facility] Work Phone: No Panel Information Enteric Bacteriology [facility] Work Phone: Vital Signs Date Time Vital Sign Value Performing Clinician Clement smith 01-21-2025 12:40-0400 Body height 172.[address] Wyatt Marcelo MD Work Phone: [facility] 01-21-2025 12:40-0400 Body temperature 95.6 [degF] Dr. Wyatt Marcelo MD Work Phone: [facility] 01-21-2025 12:40-0400 Diastolic blood pressure 80 mm[Hg] Dr. Wyatt Marcelo MD Work Phone: [facility] 01-21-2025 12:40-0400 Heart rate 86 /min Dr. Wyatt Marcelo MD Work Phone: [facility] 01-21-2025 12:40-0400 Respiratory rate 16 /min Dr. Wyatt Marcelo MD Work Phone: [facility] 01-21-2025 12:40-0400 SaO2% (BldA) [Mass fraction] 97 % Dr. Wyatt Marcelo MD Work Phone: [facility] 01-21-2025 12:40-0400 Systolic blood pressure 132 mm[Hg] Dr. Wyatt Marcelo MD Work Phone: [facility] 01-16-2025 07:29-0400 Body temperature 97 [degF] Dr. Wyatt Marcelo MD Work Phone: [facility] 01-16-2025 07:29-0400 Diastolic blood pressure 79 mm[Hg] Dr. Wyatt Marcelo MD Work Phone: [facility] 01-16-2025 07:29-0400 Heart rate 73 /min Dr. Wyatt Marcelo MD Work Phone: [facility] 01-16-2025 07:29-0400 Respiratory rate 16 /min Dr. Wyatt Marcelo MD Work Phone: [facility] 01-16-2025 07:29-0400 SaO2% (BldA) [Mass fraction] 99 % Dr. Wyatt Marcelo MD Work Phone: [facility] 01-16-2025 07:29-0400 Systolic blood pressure 128 mm[Hg] Dr. Wyatt Marcelo MD Work Phone: [facility] 01-16-2025 05:54-0400 Body height 172.[address] Wyatt Marcelo MD Work Phone: [facility] 01-16-2025 05:54-0400 Body mass index (BMI) [Ratio] 59.5 kg/m2 Dr. Wyatt Marcelo MD Work Phone: [facility] 01-16-2025 05:54-0400 Body weight 177.[address] Wyatt Marcelo MD Work Phone: [facility] 01-07-2025 11:26-0400 Body height 172.[address] Wyatt Marcelo MD Work Phone: [facility] 01-07-2025 11:26-0400 Body mass index (BMI) [Ratio] 58.8 kg/m2 Dr. Wyatt Marcelo MD Work Phone: [facility] 01-07-2025 11:26-0400 Body weight 175.[address] Wyatt Marcelo MD Work Phone: [facility] 01-07-2025 11:26-0400 Diastolic blood pressure 86 mm[Hg] Dr. Wyatt Marcelo MD Work Phone: [facility] 01-07-2025 11:26-0400 Heart rate 80 /min Dr. Wyatt Marcelo MD Work Phone: [facility] 01-07-2025 11:26-0400 SaO2% (BldA) [Mass fraction] 97 % Dr. Wyatt Marcelo MD Work Phone: [facility] 01-07-2025 11:26-0400 Systolic blood pressure 139 mm[Hg] Dr. Wyatt Marcelo MD Work Phone: [facility] 10-23-2024 16:47-0400 Body height 172.[address] Wyatt Marcelo MD Work Phone: [facility] 10-23-2024 16:47-0400 Body temperature 96.1 [degF] Dr. Wyatt Marcelo MD Work Phone: [facility] 10-23-2024 16:47-0400 Diastolic blood pressure 78 mm[Hg] Dr. Wyatt Marcelo MD Work Phone: [facility] 10-23-2024 16:47-0400 Heart rate 81 /min Dr. Wyatt Marcelo MD Work Phone: [facility] 10-23-2024 16:47-0400 Respiratory rate 16 /min Dr. Wyatt Marcelo MD Work Phone: [facility] 10-23-2024 16:47-0400 SaO2% (BldA) [Mass fraction] 95 % Dr. Wyatt Marcelo MD Work Phone: [facility] 10-23-2024 16:47-0400 Systolic blood pressure 136 mm[Hg] Dr. Wyatt Marcelo MD Work Phone: [facility] 08-31-2024 12:26-0500 Body temperature 98.3 [degF] Dr. Wyatt Marcelo MD Work Phone: [facility] 08-31-2024 12:26-0500 Diastolic blood pressure 70 mm[Hg] Dr. Wyatt Marcelo MD Work Phone: [facility] 08-31-2024 12:26-0500 Heart rate 88 /min Dr. Wyatt Marcelo MD Work Phone: [facility] 08-31-2024 12:26-0500 Respiratory rate 12 /min Dr. Wyatt Marcelo MD Work Phone: [facility] 08-31-2024 12:26-0500 SaO2% (BldA) [Mass fraction] 98 % Dr. Wyatt Marcelo MD Work Phone: [facility] 08-31-2024 12:26-0500 Systolic blood pressure 118 mm[Hg] Dr. Wyatt Marcelo MD Work Phone: [facility] 08-31-2024 11:33-0500 Body height 172.[address] Wyatt Marcelo MD Work Phone: [facility] 10-12-2023 15:39-0400 Body height 172.[address] Wyatt Marcelo Work Phone: [facility] 10-12-2023 15:39-0400 Body mass index (BMI) [Ratio] 57.3 kg/m2 Dr. Wyatt Marcelo Work Phone: [facility] 10-12-2023 15:39-0400 Body temperature 97.8 [degF] Dr. Wyatt Marcelo Work Phone: [facility] 10-12-2023 15:39-0400 Body weight [address] Wyatt Marcelo Work Phone: [facility] 10-12-2023 15:39-0400 Respiratory rate 17 /min Dr. Wyatt Marcelo Work Phone: [facility] 10-12-2023 15:39-0400 SaO2% (BldA) [Mass fraction] 97 % Dr. Wyatt Marcelo Work Phone: [facility] 10-03-2023 08:32-0400 Body height 172.[address] Wyatt Marcelo Work Phone: [facility] 10-03-2023 08:32-0400 Body mass index (BMI) [Ratio] 57.4 kg/m2 Dr. Wyatt Marcelo Work Phone: [facility] 10-03-2023 08:32-0400 Body temperature 97.3 [degF] Dr. Wyatt Marcelo Work Phone: [facility] 10-03-2023 08:32-0400 Body weight 171.[address] Wyatt Marcelo Work Phone: [facility] 10-03-2023 08:32-0400 Diastolic blood pressure 90 mm[Hg] Dr. Wyatt Marcelo Work Phone: [facility] 10-03-2023 08:32-0400 Heart rate 74 /min Dr. Wyatt Marcelo Work Phone: [facility] 10-03-2023 08:32-0400 Respiratory rate 16 /min Dr. Wyatt Marcelo Work Phone: [facility] 10-03-2023 08:32-0400 SaO2% (BldA) [Mass fraction] 99 % Dr. Wyatt Marcelo Work Phone: [facility] 10-03-2023 08:32-0400 Systolic blood pressure 128 mm[Hg] Dr. Wyatt Marcelo Work Phone: [facility] 06-11-2023 10:46-0500 Diastolic blood pressure 79 mm[Hg] Dr. Wyatt Marcelo Work Phone: [facility] 06-11-2023 10:46-0500 Heart rate 80 /min Dr. Wyatt Marcelo Work Phone: [facility] 06-11-2023 10:46-0500 Respiratory rate 18 /min Dr. Wyatt Marcelo Work Phone: [facility] 06-11-2023 10:46-0500 SaO2% (BldA) [Mass fraction] 99 % Dr. Wyatt Marcelo Work Phone: [facility] 06-11-2023 10:46-0500 Systolic blood pressure 139 mm[Hg] Dr. Wyatt Marcelo Work Phone: [facility] 06-11-2023 07:45-0500 Body height 172.[address] Wyatt Marcleo Work Phone: [facility] 06-11-2023 07:45-0500 Body mass index (BMI) [Ratio] 56.2 kg/m2 Dr. Wyatt Marcelo Work Phone: [facility] 06-11-2023 07:45-0500 Body temperature 96.8 [degF] Dr. Wyatt Marcelo Work Phone: [facility] 06-11-2023 07:45-0500 Body weight 167.[address] Wyatt Marcelo Work Phone: [facility] 05-10-2023 16:30-0400 Body temperature 98.4 [degF] Dr. Wyatt Marcelo Work Phone: [facility] 05-10-2023 16:30-0400 Diastolic blood pressure 82 mm[Hg] Dr. Wyatt Marcelo Work Phone: [facility] 05-10-2023 16:30-0400 Heart rate 76 /min Dr. Wyatt Marcelo Work Phone: [facility] 05-10-2023 16:30-0400 Respiratory rate 18 /min Dr. Wyatt Marcelo Work Phone: [facility] 05-10-2023 16:30-0400 SaO2% (BldA) [Mass fraction] 97 % Dr. Wyatt Marcelo Work Phone: [facility] 05-10-2023 16:30-0400 Systolic blood pressure 126 mm[Hg] Dr. Wyatt Marcelo Work Phone: [facility] 04-26-2023 10:20-0400 Body temperature 97.4 [degF] Dr. Wyatt Marcelo Work Phone: [facility] 04-26-2023 10:20-0400 Diastolic blood pressure 80 mm[Hg] Dr. Wyatt Marcelo Work Phone: [facility] 04-26-2023 10:20-0400 Heart rate 75 /min Dr. Wyatt Marcelo Work Phone: [facility] 04-26-2023 10:20-0400 Respiratory rate 18 /min Dr. Wyatt Marcelo Work Phone: [facility] 04-26-2023 10:20-0400 SaO2% (BldA) [Mass fraction] 97 % Dr. Wyatt Marcelo Work Phone: [facility] 04-26-2023 10:20-0400 Systolic blood pressure 116 mm[Hg] Dr. Wyatt Marcelo Work Phone: [facility] 03-10-2023 16:05-0400 Body height 172.[address] Wyatt Marcelo Work Phone: [facility] 03-10-2023 16:05-0400 Body temperature 97.7 [degF] Dr. Wyatt Marcelo Work Phone: [facility] 03-10-2023 16:05-0400 Diastolic blood pressure 100 mm[Hg] Dr. Wyatt Marcelo Work Phone: [facility] 03-10-2023 16:05-0400 Heart rate 72 /min Dr. Wyatt Marcelo Work Phone: [facility] 03-10-2023 16:05-0400 Respiratory rate 16 /min Dr. Wyatt Marcelo Work Phone: [facility] 03-10-2023 16:05-0400 SaO2% (BldA) [Mass fraction] 96 % Dr. Wyatt Marcelo Work Phone: [facility] 03-10-2023 16:05-0400 Systolic blood pressure 158 mm[Hg] Dr. Wyatt Marcelo Work Phone: [facility] 01-09-2023 07:39-0400 Diastolic blood pressure 99 mm[Hg] Dr. Wyatt Marcelo Work Phone: [facility] 01-09-2023 07:39-0400 Heart rate 72 /min Dr. Wyatt Marcelo Work Phone: [facility] 01-09-2023 07:39-0400 Systolic blood pressure 146 mm[Hg] Dr. Wyatt Marcelo Work Phone: [facility] 01-09-2023 05:44-0400 Body height 172.[address] Wyatt Marcelo Work Phone: [facility] 01-09-2023 05:44-0400 Body mass index (BMI) [Ratio] 55.2 kg/m2 Dr. Wyatt Marcelo Work Phone: [facility] 01-09-2023 05:44-0400 Body temperature 97.6 [degF] Dr. Wyatt Marcelo Work Phone: [facility] 01-09-2023 05:44-0400 Body weight 164.[address] Wyatt Marcelo Work Phone: [facility] 01-09-2023 05:44-0400 Respiratory rate 18 /min Dr. Wyatt Marcelo Work Phone: [facility] 01-09-2023 05:44-0400 SaO2% (BldA) [Mass fraction] 96 % Dr. Wyatt Marcelo Work Phone: [facility] 12-05-2022 08:19-0400 Body height 172.[address] Wyatt Marcelo Work Phone: [facility] 12-05-2022 08:19-0400 Body mass index (BMI) [Ratio] 54.4 kg/m2 Dr. Wyatt Marcelo Work Phone: [facility] 12-05-2022 08:19-0400 Body temperature 97.2 [degF] Dr. Wyatt Marcelo Work Phone: [facility] 12-05-2022 08:19-0400 Body weight 162.[address] Wyatt Marcelo Work Phone: [facility] 12-05-2022 08:19-0400 Diastolic blood pressure 80 mm[Hg] Dr. Wyatt Marcelo Work Phone: [facility] 12-05-2022 08:19-0400 Heart rate 87 /min Dr. Wyatt Marcelo Work Phone: [facility] 12-05-2022 08:19-0400 Respiratory rate 12 /min Dr. Wyatt Marcelo Work Phone: [facility] 12-05-2022 08:19-0400 SaO2% (BldA) [Mass fraction] 97 % Dr. Wyatt Marcelo Work Phone: [facility] 12-05-2022 08:19-0400 Systolic blood pressure 130 mm[Hg] Dr. Wyatt Marcelo Work Phone: [facility] 11-23-2022 13:44-0400 Body height 172.[address] Wyatt Marcelo Work Phone: [facility] 11-23-2022 13:44-0400 Body mass index (BMI) [Ratio] 54.4 kg/m2 Dr. Wyatt Marcelo Work Phone: [facility] 11-23-2022 13:44-0400 Body temperature 97.2 [degF] Dr. Wyatt Marcelo Work Phone: [facility] 11-23-2022 13:44-0400 Body weight 162.[address] Wyatt Marcelo Work Phone: [facility] 11-23-2022 13:44-0400 Diastolic blood pressure 83 mm[Hg] Dr. Wyatt Marcelo Work Phone: [facility] 11-23-2022 13:44-0400 Heart rate 77 /min Dr. Wyatt Marcelo Work Phone: [facility] 11-23-2022 13:44-0400 Respiratory rate 19 /min Dr. Wyatt Marcelo Work Phone: [facility] 11-23-2022 13:44-0400 SaO2% (BldA) [Mass fraction] 96 % Dr. Wyatt Marcelo Work Phone: [facility] 11-23-2022 13:44-0400 Systolic blood pressure 122 mm[Hg] Dr. Wyatt Marcelo Work Phone: [facility] 10-19-2022 13:59-0400 Body height 172.[address] Wyatt Marcelo Work Phone: [facility] 10-19-2022 13:59-0400 Body mass index (BMI) [Ratio] 54.1 kg/m2 Dr. Wyatt Marcelo Work Phone: [facility] 10-19-2022 13:59-0400 Body weight 161.[address] Wyatt Marcelo Work Phone: [facility] 10-19-2022 13:59-0400 Diastolic blood pressure 85 mm[Hg] Dr. Wyatt Marcelo Work Phone: [facility] 10-19-2022 13:59-0400 Systolic blood pressure 142 mm[Hg] Dr. Wyatt Marcelo Work Phone: [facility] 09-29-2022 08:59-0400 Body height 172.[address] Wyatt Marcelo Work Phone: [facility] 09-29-2022 08:59-0400 Body temperature 96.2 [degF] Dr. Wyatt Marcelo Work Phone: [facility] 09-29-2022 08:59-0400 Diastolic blood pressure 90 mm[Hg] Dr. Wyatt Marcelo Work Phone: [facility] 09-29-2022 08:59-0400 Heart rate 70 /min Dr. Wyatt Marcelo Work Phone: [facility] 09-29-2022 08:59-0400 Respiratory rate 16 /min Dr. Wyatt Marcelo Work Phone: [facility] 09-29-2022 08:59-0400 SaO2% (BldA) [Mass fraction] 98 % Dr. Wyatt Marcelo Work Phone: [facility] 09-29-2022 08:59-0400 Systolic blood pressure 128 mm[Hg] Dr. Wyatt Marcelo Work Phone: [facility] 09-01-2022 08:52-0500 Body temperature 96.6 [degF] Dr. Wyatt Marcelo Work Phone: [facility] 09-01-2022 08:52-0500 Diastolic blood pressure 100 mm[Hg] Dr. yWatt Marcelo Work Phone: [facility] 09-01-2022 08:52-0500 Heart rate 78 /min Dr. Wyatt Marcelo Work Phone: [facility] 09-01-2022 08:52-0500 Respiratory rate 18 /min Dr. Wyatt Marcelo Work Phone: [facility] 09-01-2022 08:52-0500 SaO2% (BldA) [Mass fraction] 96 % Dr. Wyatt Marcelo Work Phone: [facility] 09-01-2022 08:52-0500 Systolic blood pressure 146 mm[Hg] Dr. Wyatt Marcelo Work Phone: [facility] 08-15-2022 11:25-0500 Body mass index (BMI) [Ratio] 57 kg/m2 Dr. Wyatt Marcelo Work Phone: [facility] 08-15-2022 11:25-0500 Body temperature 96.7 [degF] Dr. Wyatt Marcelo Work Phone: [facility] 08-15-2022 11:25-0500 Body weight 170.[address] Wyatt Marcelo Work Phone: [facility] 08-15-2022 11:25-0500 Diastolic blood pressure 84 mm[Hg] Dr. Wyatt Marcelo Work Phone: [facility] 08-15-2022 11:25-0500 Heart rate 78 /min Dr. Wyatt Marcelo Work Phone: [facility] 08-15-2022 11:25-0500 Respiratory rate 18 /min Dr. Wyatt Marcelo Work Phone: [facility] 08-15-2022 11:25-0500 SaO2% (BldA) [Mass fraction] 96 % Dr. Wyatt Marcelo Work Phone: [facility] 08-15-2022 11:25-0500 Systolic blood pressure 117 mm[Hg] Dr. Wyatt Marcelo Work Phone: [facility] 07-01-2022 14:57-0500 Diastolic blood pressure 82 mm[Hg] Dr. Wyatt Marcelo Work Phone: [facility] 07-01-2022 14:57-0500 Respiratory rate 12 /min Dr. Wyatt Marcelo Work Phone: [facility] 07-01-2022 14:57-0500 Systolic blood pressure 144 mm[Hg] Dr. Wyatt Marcelo Work Phone: [facility] 05-06-2022 11:09-0400 Body height 172.[address] Wyatt Marcelo Work Phone: [facility] 05-06-2022 11:09-0400 Body temperature 98 [degF] Dr. Wyatt Marcelo Work Phone: [facility] 05-06-2022 11:09-0400 Diastolic blood pressure 88 mm[Hg] Dr. Wyatt Marcelo Work Phone: [facility] 05-06-2022 11:09-0400 Heart rate 66 /min Dr. Wyatt Marcelo Work Phone: [facility] 05-06-2022 11:09-0400 SaO2% (BldA) [Mass fraction] 98 % Dr. Wyatt Marcelo Work Phone: [facility] 05-06-2022 11:09-0400 Systolic blood pressure 124 mm[Hg] Dr. Wyatt Marcelo Work Phone: [facility] 03-07-2022 13:25-0400 Heart rate 84 /min Dr. Wyatt Marcelo Work Phone: [facility] Work Phone: 03-07-2022 13:25-0400 Respiratory rate 16 /min Dr. Wyatt Marcelo Work Phone: [facility] Work Phone: 03-07-2022 13:25-0400 SaO2% (BldA) [Mass fraction] 98 % Dr. Wyatt Marcelo Work Phone: [facility] Work Phone: 03-07-2022 12:10-0400 Body height 172.[address] Wyatt Marcelo Work Phone: [facility] Work Phone: 03-07-2022 12:10-0400 Body mass index (BMI) [Ratio] 55.3 kg/m2 Dr. Wyatt Marcelo Work Phone: [facility] Work Phone: 03-07-2022 12:10-0400 Body temperature 97.9 [degF] Dr. Wyatt Marcelo Work Phone: [facility] Work Phone: 03-07-2022 12:10-0400 Body weight [address] Wyatt Marcelo Work Phone: [facility] Work Phone: 03-07-2022 12:10-0400 Diastolic blood pressure 72 mm[Hg] Dr. Wyatt Marcelo Work Phone: [facility] Work Phone: 03-07-2022 12:10-0400 Systolic blood pressure 139 mm[Hg] Dr. Wyatt Marcelo Work Phone: [facility] Work Phone: 02-10-2022 07:19-0400 Body temperature 97.5 [degF] Dr. Wyatt Marcelo Work Phone: [facility] Work Phone: 02-10-2022 07:19-0400 Diastolic blood pressure 90 mm[Hg] Dr. Wyatt aMrcelo Work Phone: [facility] Work Phone: 02-10-2022 07:19-0400 Heart rate 89 /min Dr. Wyatt Marcelo Work Phone: [facility] Work Phone: 02-10-2022 07:19-0400 Respiratory rate 14 /min Dr. Wyatt Marcelo Work Phone: [facility] Work Phone: 02-10-2022 07:19-0400 SaO2% (BldA) [Mass fraction] 98 % Dr. Wyatt Marcelo Work Phone: [facility] [facility] Work Phone: 02-10-2022 07:19-0400 Systolic blood pressure 146 mm[Hg] Dr. Wyatt Marcelo Work Phone: [facility] Work Phone: 11-22-2021 08:58-0400 Body height 172.[address] Wyatt Marcelo Work Phone: [facility] Work Phone: 11-22-2021 08:58-0400 Body mass index (BMI) [Ratio] 52.6 kg/m2 Dr. Wyatt Marcelo Work Phone: [facility] Work Phone: 11-22-2021 08:58-0400 Body temperature 97.1 [degF] Dr. Wyatt Marcelo Work Phone: [facility] Work Phone: 11-22-2021 08:58-0400 Body weight 156.[address] Wyatt Marcelo Work Phone: [facility] Work Phone: 11-22-2021 08:58-0400 Diastolic blood pressure 86 mm[Hg] Dr. Wyatt Marcelo Work Phone: [facility] Work Phone: 11-22-2021 08:58-0400 Heart rate 73 /min Dr. Wyatt Marcelo Work Phone: [facility] Work Phone: 11-22-2021 08:58-0400 Respiratory rate 14 /min Dr. Wyatt Marcelo Work Phone: [facility] Work Phone: 11-22-2021 08:58-0400 SaO2% (BldA) [Mass fraction] 98 % Dr. Wyatt Marcelo Work Phone: [facility] Work Phone: 11-22-2021 08:58-0400 Systolic blood pressure 134 mm[Hg] Dr. Wyatt Marcelo Work Phone: [facility] Work Phone: 10-08-2021 11:30-0400 Body mass index (BMI) [Ratio] 52.6 kg/m2 Dr. Wyatt Marcelo Work Phone: [facility] Work Phone: 10-08-2021 11:30-0400 Body temperature 97.4 [degF] Dr. Wyatt Marcelo Work Phone: [facility] Work Phone: 10-08-2021 11:30-0400 Body weight 156.[address] Wyatt Marcelo Work Phone: [facility] Work Phone: 10-08-2021 11:30-0400 Diastolic blood pressure 78 mm[Hg] Dr. Wyatt Marcelo Work Phone: [facility] Work Phone: 10-08-2021 11:30-0400 Heart rate 73 /min Dr. Wyatt Marcelo Work Phone: [facility] Work Phone: 10-08-2021 11:30-0400 Respiratory rate 14 /min Dr. Wyatt Marcelo Work Phone: [facility] Work Phone: 10-08-2021 11:30-0400 SaO2% (BldA) [Mass fraction] 97 % Dr. Wyatt Marcelo Work Phone: [facility] Work Phone: 10-08-2021 11:30-0400 Systolic blood pressure 126 mm[Hg] Dr. Wyatt Marcelo Work Phone: [facility] Work Phone: 10-08-2021 11:30-0400 Body height 172.[address] Wyatt Marcelo Work Phone: [facility] Work Phone: 10-08-2021 11:30-0400 Body mass index (BMI) [Ratio] 52.6 kg/m2 Dr. Wyatt Marcelo Work Phone: [facility] Work Phone: 10-08-2021 11:30-0400 Body temperature 97.4 [degF] Dr. Wyatt Marcelo Work Phone: [facility] Work Phone: 10-08-2021 11:30-0400 Body weight 156.[address] Wyatt Marcelo Work Phone: [facility] Work Phone: 10-08-2021 11:30-0400 Diastolic blood pressure 78 mm[Hg] Dr. Wyatt Marcelo Work Phone: [facility] Work Phone: 10-08-2021 11:30-0400 Heart rate 73 /min Dr. Wyatt Marcelo Work Phone: [facility] Work Phone: 10-08-2021 11:30-0400 Respiratory rate 14 /min Dr. Wyatt Marcelo Work Phone: [facility] Work Phone: 10-08-2021 11:30-0400 SaO2% (BldA) [Mass fraction] 97 % Dr. Wyatt Marcelo Work Phone: [facility] Work Phone: 10-08-2021 11:30-0400 Systolic blood pressure 126 mm[Hg] Dr. Wyatt Marcelo Work Phone: [facility] Work Phone: 08-19-2021 10:36-0500 Body mass index (BMI) [Ratio] 52.6 kg/m2 Dr. Wyatt Marcelo Work Phone: [facility] Work Phone: 08-19-2021 10:36-0500 Body temperature 97.2 [degF] Dr. Wyatt Marcelo Work Phone: [facility] Work Phone: 08-19-2021 10:36-0500 Body weight 156.[address] Wyatt Marcelo Work Phone: [facility] Work Phone: 08-19-2021 10:36-0500 Diastolic blood pressure 86 mm[Hg] Dr. Wyatt Marcelo Work Phone: [facility] Work Phone: 08-19-2021 10:36-0500 Heart rate 74 /min Dr. Wyatt Marcelo Work Phone: [facility] Work Phone: 08-19-2021 10:36-0500 Respiratory rate 18 /min Dr. Wyatt Marcelo Work Phone: [facility] Work Phone: 08-19-2021 10:36-0500 SaO2% (BldA) [Mass fraction] 99 % Dr. Wyatt Marcelo Work Phone: [facility] Work Phone: 08-19-2021 10:36-0500 Systolic blood pressure 124 mm[Hg] Dr. Wyatt Marcelo Work Phone: [facility] Work Phone: 07-28-2021 08:25-0500 Body mass index (BMI) [Ratio] 52.6 kg/m2 Dr. Wyatt Marcelo Work Phone: [facility] Work Phone: 07-28-2021 08:25-0500 Body temperature 98.6 [degF] Dr. Wyatt Marcelo Work Phone: [facility] Work Phone: 07-28-2021 08:25-0500 Body weight 156.[address] Wyatt Marcelo Work Phone: [facility] Work Phone: 07-28-2021 08:25-0500 Diastolic blood pressure 72 mm[Hg] Dr. Wyatt Marcelo Work Phone: [facility] Work Phone: 07-28-2021 08:25-0500 Heart rate 79 /min Dr. Wyatt Marcelo Work Phone: [facility] Work Phone: 07-28-2021 08:25-0500 Respiratory rate 14 /min Dr. Wyatt Marcelo Work Phone: [facility] Work Phone: 07-28-2021 08:25-0500 SaO2% (BldA) [Mass fraction] 97 % Dr. Wyatt Marcelo Work Phone: [facility] Work Phone: 07-28-2021 08:25-0500 Systolic blood pressure 124 mm[Hg] Dr. Wyatt Marcelo Work Phone: [facility] Work Phone: 07-01-2021 09:34-0500 Body mass index (BMI) [Ratio] 52.6 kg/m2 Dr. Wyatt Marcelo Work Phone: [facility] Work Phone: 07-01-2021 09:34-0500 Body temperature 98 [degF] Dr. Wyatt Marcelo Work Phone: [facility] Work Phone: 07-01-2021 09:34-0500 Body weight 156.[address] Wyatt Marcelo Work Phone: [facility] Work Phone: 07-01-2021 09:34-0500 Diastolic blood pressure 84 mm[Hg] Dr. Wyatt Marcelo Work Phone: [facility] Work Phone: 07-01-2021 09:34-0500 Heart rate 80 /min Dr. Wyatt Marcelo Work Phone: [facility] Work Phone: 07-01-2021 09:34-0500 Respiratory rate 18 /min Dr. Wyatt Marcelo Work Phone: [facility] Work Phone: 07-01-2021 09:34-0500 SaO2% (BldA) [Mass fraction] 98 % Dr. Wyatt Marcelo Work Phone: [facility] Work Phone: 07-01-2021 09:34-0500 Systolic blood pressure 138 mm[Hg] Dr. Wyatt Marcelo Work Phone: [facility] Work Phone: Encounters Encounter Date Encounter Type Care Provider Facility Start: 02-01-2025 End: 02-01-[address] Wyatt Marcelo MD Work Phone: -Laboratory Specimen Start: 02-01-2025 End: 02-01-[address] Cali Lou MD -Laboratory Specimen Work Phone: Start: 02-01-2025 End: 02-01-2025 ambulatory Cali Lou Facility:[facility] Start: 01-28-2025 End: 01-28-[address] Wyatt Marcelo MD Work Phone: -Laboratory [place] Start: 01-28-2025 End: 01-28-2025 Patient encounter procedure STEVEN BOLES MD -Laboratory [place] Work Phone: Start: 01-28-2025 End: 01-28-2025 ambulatory STEVEN BOLES Facility:[facility] Start: 01-21-2025 End: 01-21-[address] 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 Wyatt Marcelo MD Work Phone: -[facility] Start: 01-21-2025 End: 01-21-2025 ambulatory Wyatt Marcelo Facility:[facility] Start: 01-16-2025 ambulatory Hammad Fadia Facility :[facility] Start: 01-16-2025 Non-patient / Non-visit Hammad Fadia DO -[facility] Start: 01-16-2025 End: 01-16-2025 Admission to same day surgery center Hammad Loaiza DO -Endoscopy Work Phone: Start: 01-16-2025 End: 01-16-[address] Wyatt Marcelo MD Work Phone: -Endoscopy Start: 01-14-2025 Non-patient / Non-visit Dr. Mary Don MD -[facility] Work Phone: Start: 01-07-2025 End: 01-07-[address] Cali Lou MD -[facility] Work Phone: Start: 01-07-2025 End: 01-07-[address] Wyatt Marcelo MD Work Phone: [facility] Work Phone: Start: 12-13-2024 End: 12-13-2024 Patient encounter procedure Irma MINER -[facility] Work Phone: Start: 12-13-2024 End: 12-13-[address] Wyatt Marcelo MD Work Phone: [facility] Work Phone: Start: 11-07-2024 End: 11-07-[address] Wyatt Marcelo MD Work Phone: [facility] Work Phone: Start: 11-07-2024 End: 11-07-2024 Patient encounter procedure STEVEN BOLES MD -Laboratory, [place] Start: 11-07-2024 End: 11-07-2024 ambulatory STEVEN BOLES Facility:[facility] Start: 10-23-2024 End: 10-23-[address] Wyatt Marcelo MD -[facility] Work Phone: Start: 10-23-2024 End: 10-23-2024 ambulatory Wyatt Marcelo Facility:[facility] Start: 10-10-2024 End: 10-10-[address] Wyatt Marcelo MD Work Phone: [facility] Work Phone: Start: 10-10-2024 End: 10-10-[address] Wyatt Marcelo MD -Laboratory, [place] Start: 10-10-2024 End: 10-10-2024 ambulatory Wyatt Hoopere Facility:[facility] Start: 08-31-2024 End: 08-31-2024 Patient encounter procedure Corie HARDENC [facility] Work Phone: Start: 08-31-2024 End: 08-31-2024 ambulatory Wyatt Marcelo Facility:[facility] Start: 07-23-2024 End: 07-23-2024 Patient encounter procedure STEVEN BOLES MD -Laboratory, [place] Start: 07-23-2024 End: 07-23-2024 ambulatory STEVEN BOLES Facility:[facility] Start: 07-11-2024 ambulatory Nimco Gonzalez Facility:[facility] Start: 07-11-2024 Registered Recurring Nimco Gonzalez PA -Physical Therapy Work Phone: Start: 06-25-2024 ambulatory Karl Lopez Facility:[facility] Start: 05-27-2024 End: 05-27-2024 ambulatory Nimco Gonzalez Facility:[facility] Start: 05-10-2024 End: 05-10-2024 ambulatory Nimco Gonzalez Facility:[facility] Start: 05-10-2024 End: 05-10-2024 ambulatory Nimco Gonzalez Facility:[facility] Start: 05-09-2024 End: 05-09-2024 ambulatory Nimco Lisa Facility:[facility] Start: 04-30-2024 End: 04-30-2024 ambulatory [facility] Facility:[facility] Start: 04-25-2024 Encounter for genera l adult medical examination without abnormal findings Wyatt Marcelo [facility] Start: 04-25-2024 End: 04-25-2024 ambulatory Wyatt Hoopere Facility:[facility] Start: 04-25-2024 ambulatory Natrancho cordovaalla Hoopere Facili ty:[facility] Start: 04-25-2024 ambulatory Health Risk Assessment Facility:[facility] Start: 04-02-2024 End: 04-02-2024 ambulatory [facility] Facility:[facility] Start: 04-01-2024 End: 04-01-2024 ambulatory Wyatt Marcelo Facility:[facility] Start: 03-20-2024 End: 03-20-2024 [facility] Start: 02-13-2024 End: 02-13-2024 ambulatory [facility] Facility:[facility] Start: 10-17-2023 End: 10-17-[address] Wyatt Marcelo Work Phone: [facility] Work Phone: Start: 10-17-2023 End: 10-17-[address] Wyatt Marcelo Work Phone: [facility]-Laboratory, [place] Start: 10-12-2023 End: 10-12-[address] Wyatt Marcelo Work Phone: [facility] Work Phone: Start: 10-12-2023 End: 10-12-[address] Wyatt Marcelo Work Phone: [facility] Work Phone: Start: 10-03-2023 End: 10-03-[address] Wyatt Marcelo Work Phone: [facility] Internal Medicine Work Phone: Start: 09-08-2023 End: 09-08-[address] Wyatt Marcelo Work Phone: [facility] Work Phone: Start: 09-08-2023 End: 09-08-[address] Wyatt Marcelo Work Phone: [facility]-Radiology, [facility] Work Phone: Start: 08-17-2023 End: 08-17-[address] Wyatt Marcelo Work Phone: [facility]-Laboratory Work Phone: Start: 06-16-2023 End: 06-16-[address] Wyatt Marcelo Work Phone: [facility] Work Phone: Start: 06-16-2023 End: 06-16-[address] Wyatt Marcelo Work Phone: [facility]-Laboratory, [place] Start: 06-11-2023 End: 06-11-2023 Emergency department patient visit Dr. Wyatt Marcelo Work Phone: [facility]-Emergency Department Work Phone: Start: 05-10-[address] Wyatt Marcelo Work Phone: [facility] Start: 05-10-2023 End: 05-10-2023 Encounter for general adult medical examination without abnormal findings Dr. Wyatt Marcelo Work Phone: [facility] Start: 05-10-2023 End: 05-10-[address] Wyatt Marcelo Work Phone: [facility] Internal Medicine Work Phone: Start: 05-09-[address] Marta Marcelo Work Phone: [facility]-Employee Health Start: 04-26-2023 End: 04-26-[address] Wyatt Marcelo Work Phone: [facility] Work Phone: Start: 04-26-2023 End: 04-26-[address] Wyatt Marcelo Work Phone: [facility] Internal Medicine Work Phone: Start: 03-22-2023 End: 03-22-[address] Wyatt Marcelo Work Phone: [facility] Work Phone: Start: 03-22-2023 End: 03-22-[address] Wyatt Marcelo Work Phone: [facility] [place] Start: 03-10-2023 End: 03-10-[address] Wyatt Marcelo Work Phone: [facility] Internal Medicine Work Phone: Start: 03-07-2023 End: 03-07-[address] Wyatt Marcelo Work Phone: [facility], [place] Start: 02-15-2023 End: 02-15-[address] Wyatt Marcelo Work Phone: [facility] Work Phone: Start: 02-15-2023 End: 02-15-[address] Wyatt Marcelo Work Phone: [facility], [facility] Work Phone: Start: 02-14-2023 Non-patient / Non-visit Dr. Wyatt Marcelo Work Phone: [facility] Internal Medicine Work Phone: Start: 02-03-2023 End: 02-03-[address] Wyatt Marcelo Work Phone: [facility]-Radiology, [place] Work Phone: Start: 01-09-2023 End: 01-09-[address] Wyatt Marcelo Work Phone: [facility] Work Phone: Start: 01-09-2023 End: 01-09-[address] [facility] [place] Work Phone: Start: 01-09-2023 End: 01-09-[address] Wyatt Marcelo Work Phone: [facility] Start: 01-03-2023 End: 01-03-[address] Wyatt Marcelo Work Phone: [facility] Work Phone: Start: 01-03-2023 End: 01-03-[address] Wyatt Marcelo Work Phone: [facility], [place] Start: 12-30-2022 End: 12-30-[address] Wyatt Marcelo Work Phone: [facility] Start: 12-14-2022 End: 12-14-[address] Wyatt Marcelo Work Phone: [facility] Work Phone: Start: 12-14-2022 End: 12-14-[address] Wyatt Marcelo Work Phone: [facility] [place] Start: 12-05-2022 End: 12-05-[address] Wyatt Rodriguez Phone: [facility] Start: 12-02-2022 End: 12-02-[address] Wyatt Marcelo Work Phone: [facility] Work Phone: Start: 12-02-2022 End: 12-02-[address] Wyatt Marcelo Work Phone: [facility] Start: 11-25-2022 End: 11-25-[address] Wyatt Marcelo Work Phone: [facility] Internal Medicine Start: 11-23-2022 End: 11-23-[address] Wyatt Rodriguez Phone: [facility] Work Phone: Start: 11-23-2022 End: 11-23-[address] Wyatt Marcelo Work Phone: [facility]-Laboratory, Specimen Start: 11-23-2022 End: 11-23-[address] Wyatt Marcelo Work Phone: [facility] Start: 11-22-2022 End: 11-22-[address] Wyatt Marcelo Work Phone: [facility] Work Phone: Start: 11-22-2022 End: 11-22-[address] Wyatt Marcelo Work Phone: [facility] Start: 11-08-2022 End: 11-08-[address] Wyatt Marcelo Work Phone: [facility] Work Phone: Start: 11-08-2022 End: 11-08-[address] Wyatt Marcel[facility] Start: 11-01-2022 End: 11-01-[address] Wyatt Marcelo Work Phone: [facility]-Laboratory, [place] Start: 10-31-2022 End: 10-31-[address] Wyatt Marcelo Work Phone: [facility]-Outpatient Breast Imaging Start: 10-28-2022 End: 10-28-[address] Wyatt Marcelo Work Phone: [facility] Internal Medicine Start: 10-19-2022 End: 10-19-[address] Wyatt Marcelo Work Phone: [facility] Start: 10-14-2022 End: 10-14-[address] Wyatt Marcelo Work Phone: [facility] Internal Medicine Start: 10-14-2022 Non-patient / Non-visit Dr. Wyatt Marcelo Work Phone: [facility] Internal Medicine Start: 10-13-2022 End: 10-13-[address] Wyatt Marcelo Work Phone: [facility] Work Phone: Start: 10-13-2022 End: 10-13-[address] Wyatt Marcelo Work Phone: [facility] Start: 09-30-2022 End: 09-30-[address] Wyatt Marcelo Work Phone: [facility] Internal Medicine Start: 09-29-[address] Marta Marcelo Work Phone: [facility] Start: 09-29-2022 End: 09-29-[address] Wyatt Marcelo Work Phone: [facility] Work Phone: Start: 09-29-2022 End: 09-29-[address] Wyatt Marcelo Work Phone: [facility] Internal Medicine Start: 09-01-2022 End: 09-01-[address] Wyatt Marcelo Work Phone: [facility] Internal Medicine Start: 09-01-2022 Non-patient / Non-visit Dr. Wyatt Marcelo Work Phone: [facility] Internal [facility] Start: 08-15-2022 End: 08-15-[address] Wyatt Marcelo Work Phone: [facility] Endocrinology Start: 08-04-2022 End: 08-04-[address] Wyatt Marcelo Work Phone: [facility] Work Phone: Start: 08-04-2022 End: 08-04-[address] Wyatt Marcelo Work Phone: [facility] [place] Start: 07-01-2022 End: 07-01-[address] Wyatt Marcelo Work Phone: [facility] Internal Medicine Start: 06-24-2022 End: 06-24-[address] Wyatt Marcelo Work Phone: [facility] [place] Start: 06-13-[address] Marta Marcelo Work Phone: [facility] Start: 06-13-2022 End: 06-13-[address] Wyatt Marcelo Work Phone: [facility] Work Phone: Start: 06-13-2022 End: 06-13-[address] Wyatt Marcelo Work Phone: [facility], [place] Start: 05-06-2022 End: 05-06-2022 Encounter for general adult medical examination without abnormal findings Dr. Wyatt Marcelo Work Phone: [facility] Internal Medicine Start: 05-06-2022 End: 05-06-[address] Wyatt Marcelo Work Phone: [facility] Internal Medicine Start: 04-22-2022 End: 04-22-[address] Wyatt Marcelo Work Phone: [facility] Work Phone: Start: 04-22-2022 End: 04-22-[address] [facility] Marcel[facility] [place] Start: 03-22-2022 End: 03-22-[address] Wyatt Marcelo Work Phone: [facility] Work Phone: Start: 03-22-2022 End: 03-22-[address] Wyatt Marcelo Work Phone: [facility], [place] Start: 03-22-[address] Marta Marcelo Work Phone: [facility] Start: 03-07-2022 End: 03-07-[address] Wyatt Marcelo Work Phone: [facility]-ED Referred Start: 03-07-2022 End: 03-07-2022 Emergency department patient [facility] Dr. Wyatt Marcel[facility] Start: 02-10-2022 End: 02-10-[address] Wyatt Marcelo Work Phone: [facility] Start: 01-11-2022 End: 01-11-[address] Wyatt Marcel[facility] [place] Start: 12-27-2021 End: 12-27-[address] Wyatt Marcel[facility] [place] Start: 11-22-2021 End: 11-22-[address] Wyatt Marcelo Work Phone: [facility] Medicine Start: 10-21-2021 End: 10-21-[address] Wyatt Rodriguez Phone: [facility] [place] Start: 10-08-2021 End: 10-08-[address] Wyatt Rodriguez Phone: [facility]-Cardi[facility] Services Start: 10-08-2021 End: 10-08-[address] Wyatt Marcelo Work Phone: [facility] Internal Medicine Start: 09-14-2021 End: 09-14-[address] Wyatt Marcelo Work Phone: [facility] [place] Start: 09-13-2021 End: 09-13-[address] Wyatt Rodriguez Phone: [facility] [place] Start: 08-19-2021 End: 08-19-[address] Wyatt Marcelo Work Phone: [facility] Endocrinology Start: 07-28-2021 End: 07-28-[address] Wyatt Rodriguez Phone: [facility] Start: 07-26-2021 End: 07-26-[address] Wyatt Rodriguez Phone: [facility] [place] Start: 07-01-2021 End: 07-01-[address] Wyatt Rodriguez Phone: [facility]-Pulmonary Medicine [facility] Start: 02-15-[address] Wyatt Rodriguez Phone: [facility] Start: 07-04-2017 End: 07-05-2017 Ambulatory IMCA Facility:[facility] Start: 06-20-2017 Ambulatory IMCA Facility:[facility] Start: 04-27-2017 End: 04-28-2017 Ambulatory IMCA [facility] Start: 04-14-[address] Facilit y:[facility] Start: 04-13-2017 End: 04-14-[address] Facility:[facility] Start: 04-03-2017 End: 04-04-2017 Ambulatory TONY ALVAREZ Facility:[facility] Start: 02-06-2017 End: 02-07-2017 Ambulatory CHRISTMARGARITAER R ANTONIO Facility:[facility] Procedures Date Procedure Procedure Detail Performing Clinician Start: 01-28-[address] Nat Marcelo MD Work Phone: Start: 01-28-2025 Vitamin D, 25-hydroxy measurement Dr. Rick Marcelo MD Work Phone: Comment on above: Vitamin D StatusDeficiency: <20 ng/mL (5 0nmol/L)Insufficiency: 20-30 ng/mL (50-75 nmol/L)Sufficiency: 30-100 ng/mL (75-250 nmol/L)Toxicity: >100 ng/mL (>250 nmol/L) Start: 01-21-2025 X-ray of foot, three or [...] Start: 06-24-2022 Plain chest X-ray Dr. Wyatt Marcleo Work Phone: Start: 09-13-2021 Plain x-ray of [...] Egd transoral biopsy single/multiple EGD BIOPSY SINGLE/MULTIPLE [facility] Start: 01-16-2025 Patient discharge [facility] Start: 05-10-2023 Patient referral [facility] Work Phone: Start: 04-26-2023 Evaluation of diagno stic study results [facility] Start: 09-29-2022 Patient referral [facility] Work Phone: Start: 03-07-2022 Hepatitis B surface antigen measurement [facility] Work Phone: Start: 03-07-2022 Hepatitis C antibody measurement [facility] Work Phone: 24 hour urine calciu m output measurement [facility] Cardiovascular stres s testing [facility] Erythrocyte mean corpuscular volume determination [facility] Ferritin [Mass/volum e] in Serum or Plasma [facility] Hematocrit [Volume Fraction] of Blood [facility] Hemoglobin [Mass/vol ume] in Blood [facility] Hemoglobin A1c/Hemoglobin.total in Blood [facility] Hepatitis B surface antigen measurement [facility] Work Phone: Hepatitis B virus rodas rface IgG Ab [Presence] in Serum [facility] Work Phone: Hepatitis C antibody measurement [facility] Work Phone: HIV 1+2 Ab+HIV1 p24 Ag [Presence] in Serum or Plasma by Immunoassay [facility] Work Phone: In-vitro immunologic test [facility] Work Phone: Iron [Mass/mass] in Unspecified specimen [facility] Iron and Iron bindin g capacity panel - Serum or Plasma [facility] Leukocytes [#/volume ] in Blood [facility] Lipid 1996 panel - S rosita or Plasma [facility] Mean corpuscular hem oglobin concentration determination [facility] Mean corpuscular hem oglobin determination [facility] MG Breast - bilatera l Screening [facility] Mycobacterium tuberc ulosis tuberculin stimulated gamma interferon [Presence] in Blood [facility] Work Phone: Parathyroid hormone measurement [facility] Patient Education [facility] Work Phone: Patient referral [facility] Work Phone: Platelets [#/volume] in Blood [facility] Red blood cell count [facility] Red cell distributio n width determination [facility] Thyroid stimulating hormone measurement [facility] Vitamin B12 measurement [facility] Vitamin D, 25-hydrox y measurement [facility] Vitamin D, 25-hydrox y measurement [facility] XR Foot GE 3 Views [facility] Immunizations Immunization Date Immunization Notes Care Provider Palmira benites 05-31-2024 influenza, seasonal, injectable, preservative free Dr. Wyatt Marcelo MD Work Phone: [facility] 04-19-2023 influenza, injectabl e, quadrivalent, preservative free Dr. Wyatt Marcelo Work Phone: [facility] 12-05-2022 tetanus toxoid, redu bassem diphtheria toxoid, and acellular pertussis vaccine, adsorbed Dr. Wyatt Marcelo Work Phone: [facility] 06-02-2022 influenza, injectabl e, quadrivalent, preservative free Dr. Wyatt Marcelo Work Phone: [facility] 06-02-2022 influenza, seasonal, injectable Dr. Wyatt Marcelo Work Phone: [facility] 07-30-2021 Covid (Moderna) Dr. Loni Marcelo Work Phone: [facility] 05-04-2021 influenza, injectabl e, quadrivalent, preservative free Dr. Wyatt Marcelo Work Phone: [facility] 05-04-2021 influenza, seasonal, injectable Dr. Wyatt Marcelo Work Phone: [facility] 05-04-2021 Seasonal, quadrivale nt, recombinant, injectable influenza vaccine, preservative free Dr. Wyatt Marcelo Work Phone: [facility] 09-21-2020 influenza, injectabl e, quadrivalent, preservative free Dr. Wyatt Marcelo Work Phone: [facility] 09-21-2020 influenza, seasonal, injectable Dr. Wyatt Marcelo Work Phone: [facility] 09-21-2020 Seasonal, quadrivale nt, recombinant, injectable influenza vaccine, preservative free Dr. Wyatt Marcelo Work Phone: [facility] 09-01-2020 Covid (Moderna) Dr. Loni Marcelo Work Phone: [facility] 08-04-2020 Joseid (Moderna) Dr. Loni Marcelo Work Phone: [facility] 05-05-2019 influenza, injectabl e, quadrivalent, preservative free Dr. Wyatt Marcelo Work Phone: [facility] 05-05-2019 influenza, seasonal, injectable Dr. Wyatt Marcelo Work Phone: [facility] 04-13-2018 influenza, injectabl e, quadrivalent, preservative free Dr. Wyatt Marcelo Work Phone: [facility] 04-13-2018 influenza, seasonal, injectable Dr. Wyatt Marcelo Work Phone: [facility] 02-16-2018 hepatitis B vaccine, adult dosage Dr. Wyatt Marcelo Work Phone: [facility] 08-24-2017 hepatitis B vaccine, adult dosage Dr. Wyatt Marcelo Work Phone: [facility] 07-24-2017 hepatitis B vaccine, adult dosage Dr. Wyatt Marcelo Work Phone: [facility] 12-12-2016 tetanus toxoid, redu bassem diphtheria toxoid, and acellular pertussis vaccine, adsorbed Dr. Wyatt Marcelo Work Phone: [facility] 08-18-2015 influenza, injectabl e, quadrivalent, preservative free Dr. Wyatt Marcelo Work Phone: [facility] 05-19-2009 novel [id number], preservative-free, injectable Dr. Wyatt Marcelo Work Phone: [facility] Payers Date Payer Category Payer Self-pay [id number] 2023 Unknown [id number] Unknown [id number] Unknown [id number] Unknown [id number] Unknown [id number] 2.16.8 [id number] Unknown [id number] 2.16.8 40.1.845322.3.579.2.462 Unknown [id number] 2.16.8 40.1.694761.3.579.2.462 Unknown [id number] 2.16.8 40.1.086511.3.579.2.462 Unknown [id number] 2.16.8 40.1.119460.3.579.2.462 Unknown [id number] 2.16.8 40.1.425057.3.579.2.462 Unknown [id number] 2.16.8 40.1.320927.3.579.2.462 Unknown [id number] 2.16.8 40.1.770228.3.579.2.462 Unknown [id number] 2.16.8 40.1.426793.3.579.2.462 Unknown [id number] 2.16.8 40.1.429838.3.579.2.462 Unknown [id number] 2.16.8 40.1.503843.3.579.2.462 Unknown [id number] 2.16.8 40.1.760297.3.579.2.462 Unknown [id number] 2.16.8 40.1.802755.3.579.2.462 Unknown [id number] 2.16.8 40.1.813072.3.579.2.462 Unknown [id number] 2.16.8 40.1.005135.3.579.2.462 Unknown [id number] 2.16.8 40.1.068445.3.579.2.462 Unknown [id number] 2.16.8 40.1.854979.3.579.2.462 Unknown [id number] 2.16.8 40.1.070140.3.579.2.462 Unknown [id number] 2.16.8 40.1.504282.3.579.2.462 Unknown [id number] 2.16.8 40.1.346141.3.579.2.462 Unknown [id number] 2.16.8 40.1.059178.3.579.2.462 Unknown [id number] 2.16.8 40.1.022759.3.579.2.462 Unknown [id number] 2.16.8 40.1.296915.3.579.2.462 Unknown [id number] 2.16.8 40.1.404035.3.579.2.462 Unknown [id number] 2.16.8 40.1.492483.3.579.2.462 Unknown [id number] 2.16.8 40.1.357028.3.579.2.462 Unknown [id number] 2.16.8 40.1.668222.3.579.2.462 Social History Date Type Detail Facility Start: 10-08-2021 End: 10-12-2023 Tobacco smoking status MIIS Unknown if ever smoked [facility] Start: 1980 Sex Assigned At Female [facility] Start: 08-31-2024 End: 01-14-2025 Tobacco smoking status NHIS Never smoked tobacco (finding) [facility] Start: 10-14-2024 End: 11-12-2024 Sex Female (finding) [facility] NEGATED: Highlighted row Not [facility] Medical Equipment Procedure Code Equipment Code Equipment Origin al Text Equipment Identifier Dates NINALILYJARRETT Valery WECK FDA Start: 06-21-2018 NINAHEMMARSJARRETT D WECK FDA Start: 06-21-2018 NINAHEMESTELLA D WEJARRETT FDA Start: 06-21-2018 NINAHEMESTELLA D WECK FDA Start: 06-21-2018 NINAHEMESTELLA D WECK FDA Start: 06-21-2018 NINAGAYLEESTELLA D WECK FDA Start: 06-21-2018 NINAGAYLEESTELLA D WECK FDA Start: 06-21-2018 NINAHEMMARSJARRETT D WECK FDA Start: 06-21-2018 NINAHEMMARSJARRETT D WECK FDA Start: 06-21-2018 NINAHEMMARSJARRETT D WECK FDA Start: 06-21-2018 NINAHEMMARSJARRETT D WECK FDA Start: 06-21-2018 NINAHEMMARSJARRETT D WECK FDA Start: 06-21-2018 NINAHEMMARSJARRETT D WECK FDA Start: 06-21-2018 NINAHEMMARSJARRETT D WECK FDA Start: 06-21-2018 NINAHEMMARSJARRETT D WECK FDA Start: 06-21-2018 NINAHEMMARSCK D WECK FDA Start: 06-21-2018 NINAHEMMARSCK D WECK FDA Start: 06-21-2018 NINAHEMESTELLA D WECK FDA Start: 06-21-2018 NINAHEMESTELLA D WECK FDA Start: 06-21-2018 NINAHEMOLOJARRETT D WECK FDA Start: 06-21-2018 NINAHEMOLOJARRETT D WECK FDA Start: 06-21-2018 NINAHEMESTELLA D WECK FDA Start: 06-21-2018 NINAHEMESTELLA MICHAEL D WECK FDA Start: 06-21-2018 CLIPHEMMARSCK D WEJARRETT FDA Start: 06-21-2018 CLIP,HEMMARSCK D WILLA FDA Start: 06-21-2018 CLIP,HEMMARSCK D WEJARRETT FDA Start: 06-21-2018 CLIPHEMMARSCK D WILLA FDA Start: 06-21-2018 CLIPHEMMARSCK D WEJARRETT FDA Start: 06-21-2018 CLIP,HEMMARSCK ME Valery CROUCH FDA Start: 06-21-2018 CLIP,HEMMARSCK ME Valery CROUCH FDA Start: 06-21-2018 CLIPHEMMARSCK ME Valery CROUCH FDA Start: 06-21-2018 CLIP,HEMMARSCK D WILLA FDA Start: 06-21-2018 CLIP,HEMMARSCK D WILLA FDA Start: 06-21-2018 CLIPHEMMARSCK ME Valery CROUCH FDA Start: 06-21-2018 CLIPHEMMARSCK ME Valery CROUCH FDA Start: 06-21-2018 CLIPLILYCK ME Valery CROUCH FDA Start: 06-21-2018 CLIPEDNA FDA Start: 06-21-2018 CLIPEDNA FDA Start: 06-21-2018 CLIPLILYCK ME Valery CROUCH FDA Start: 06-21-2018 CLIPEDNA D WILLA FDA Start: 06-21-2018 CLIPEDNA FDA Start: 06-21-2018 CLIPEDNA FDA Start: 06-21-2018 CLIPEDNA D WILLA FDA Start: 06-21-2018 CLIPHEMMARSCK D WILLA FDA Start: 06-21-2018 CLIPHEMMARSCK D WILLA FDA Start: 06-21-2018 CLIPHEMMARSCK D WEJARRETT FDA Start: 06-21-2018 Safety [place] ( Bd Eclipse) 25 gauge x 1 needle Start: 10-10-2023 CLIPHEMMARSCK D WECK FDA Start: 06-21-2018 CLIPHEMOLOCK D WEJARRETT FDA Start: 06-21-2018 Safety [place] ( Bd Eclipse) 25 gauge x 1 needle Start: 10-10-2023 CLIP,HEMMARSCK D WECK FDA Start: 06-21-2018 CLIPHEMMARSCK ME Valery CROUCH FDA Start: 06-21-2018 Safety [place] ( Bd Eclipse) 25 gauge x 1 needle Start: 10-10-2023 End: 03-20-2024 EDNA WOOD FDA Start: 06-21-2018 EDNA WOOD FDA Start: 06-21-2018 Safety [place] ( Bd Eclipse) 25 gauge x 1 needle Start: 10-10-2023 End: 03-20-2024 EDNA WOOD FDA Start: 06-21-2018 EDNA WOOD FDA Start: 06-21-2018 Safety [place] ( Bd Eclipse) 25 gauge x 1 needle Start: 10-10-2023 End: 03-20-2024 EDNA WOOD FDA Start: 06-21-2018 EDNA WOOD FDA Start: 06-21-2018 Safety [place] ( Bd Eclipse) 25 gauge x 1 needle Start: 10-10-2023 End: 03-20-2024 EDNA WOOD FDA Start: 06-21-2018 EDNA WOOD FDA Start: 06-21-2018 Safety [place] ( Bd Eclipse) 25 gauge x 1 needle Start: 10-10-2023 End: 03-20-2024 EDNA WOOD FDA Start: 06-21-2018 EDNA WOOD FDA Start: 06-21-2018 Safety [place] ( Bd Eclipse) 25 gauge x 1 needle Start: 10-10-2023 End: 03-20-2024 EDNA WOOD FDA Start: 06-21-2018 EDNA WOOD FDA Start: 06-21-2018 Safety [place] ( Bd Eclipse) 25 gauge x 1 needle Start: 10-10-2023 End: 03-20-2024 EDNA WOOD FDA Start: 06-21-2018 EDNA WOOD FDA Start: 06-21-2018 Safety [place] ( Bd Eclipse) 25 gauge x 1 needle Start: 10-10-2023 End: 03-20-2024 EDNA WOOD FDA Start: 06-21-2018 NINAEDNA FDA Start: 06-21-2018 Safety [place] ( Bd Eclipse) 25 gauge x 1 needle Start: 10-10-2023 End: 03-20-2024 Goals Date Patient Goal Desired Activity /State Mental Status Date Assessment Result Facility 01-16-2025 Cognitive function Voice/Name;Mable/Romero locke [facility] Work Phone: Clinical Notes 2018 to 01-22-2025 Note Date & Type Note Facility 01-22-2025 Radiology Diagnostic study note [facility] Imaging Services [address] [place] [address] Foot min 3 Views MR#: [id number] Acct: [id number] Name: ALMA ADEN Rep #: [id number] : 1980 F 44 From: Clyde Yancey MD PCP: Dr. Wyatt Marcelo MD Status: R EG CLI Study:Foot min 3 Views Date of Exam: 03/10 Exam# [id number] Ordering Dr: Kati Hilliard PROCEDURE: FOOT MIN [...] seen. No new acute findings. Reading Location: [id number] CC: BAG MACHINE HELPERLeeroy Hilliard; Dr. Wyatt Marcelo MD ~ Ice Skating Coach: Signed [facility] 01-21-2025 Progress note [facility] 01-16-2025 Consult note [facility] 01-16-2025 Procedure note [facility] 01-16-2025 Procedure note [facility] 01-16-2025 Consult note [facility] 01-16-2025 History and physi rachell note [facility] 01-16-2025 Note [facility] Medical Records Department [address] [place] [address] History Physical Exam 01/16/25 0655 MR#: [id number] Acct: [id number] Name: ALMA ADEN Rep #: [id number] : 1980 44 From: Hammad Loaiza DO PCP: Dr. Wyatt Marcelo MD Status:[facility] Location: [place] [address] HPI - General General Date of Admission: 01/16/25 Date of Service: 01/16/25 Chief Complaint: GERD HPI Narrative ALMA ADEN, is a 44 F who presents Chief Complaint: BRBPR BGI established in 2020 with diarrhea and constipation. Pt has heartburn and takes TUMs and nexium PRN. EGD .08.07; Gastritis. Biopsied. - Erythematous duodenopathy. Biopsied. Colonoscopy .08.07; - Tortuous colon. - One 3 mm polyp in the rectum, removed with a jumbo cold forceps. Resected and retrieved. OV 5.30.25 for reestablishment. Over the last week pt has had BRBPR when wiping. She has not seen it in the toilet bowl. She does endorse worse constipation at this time with a a bm every 2-3 days. She does not take anything daily for constipation. Pt also having worse heartburn over the past few weeks. She will take pepcid as needed but not daily. 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 [facility] 01-16-2025 Consult note [facility] 10-23-2024 Evaluation note Diagnosis Onset Date Resolution Diabetes mellitus type 2, diet-controlled acute October 23 4:43pm Anxiety and depression chronic Ap 2024 4:43pm Hypertension chronic October 23, 025 4:43pm KRISTOPHER (obstructive sleep apnea) chronic October 23, 2024 4:43pm Constipation acute December 13 6:57am GERD (gastroesophageal reflux disease) chronic December 13, 2024 6:57am Hypothyroidism chronic January 07, 2025 11:26am [facility] Work Phone: 1(564) 836-398204-09-2025 Evaluation note* Diagnosis Onset Date Resolution Status [...] x disease) chronic January 16, 2025 5:26am [facility] Work Phone: 1(871) 715-659904-09-2025 Evaluation note* Diagnosis Onset Date Resolution Status [...] Pain of left heel acute January 12:34pm [facility] Work Phone: 1(947) 489-182202-15-2025 Evaluation note* Diagnosis Onset Date Resolution Status Admit Date Sinus infection acute August 31, 2024 11:35am [facility] Work Phone: 1(622) 578-152502-15-2025 Evaluation note* Diagnosis Onset Date Resolution Status Admit Date Sinus infection acute August 31, 2024 11:35am Diabetes mellitus type 2, diet-controlled acute October 23, 2024 4:43pm Anxiety and depression chronic Ap 2024 4:43pm Hypertension chronic October 23, 2 025 4:43pm KRISTOPHER (obstructive sleep apnea) chroni c October 23, 2024 4:43pm [facility] Work Phone: 1(644) 460-374202-28-2022 NoteHNO ID: [id number] Author: Flower Pinedo MD Service: ? Author [...] the mornings and evenings. 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 Swelling in hands towards the end of [...] of Onset (more content not included)...[facility]01-05-2019 Consult note Author Adi Berger [facility] Note Date/Time January 16, 2025 7:20a m [facility] Medical Records Department [address] [place] [address] Anesthesia Postop Eval I 01/16/25 07 MR#: [id number] Acct: [id number] Name: ALMA ADEN Rep #:[id number] : 1980 44 From: Adi FLORES PCP: Dr. Wyatt Marcelo MD Status:R EG SDC Y Race: C Location: [place] [address] Anesthesia: Postop Eval I Current Vital Signs [...] CRNA Cosigner Signature: Date CC: ~ Signed [facility] Work Phone: Chief complaint+Reason for visit Narrative* Chief Complaint 3 Y FU NEED REFERRAL FOR RHEUMATOLOGY Thyroid dysfunction leg pain LEFT LEG PAIN Reason for Visit BMI 45.0-49.9, adult KRISTOPHER (obstructive sleep apnea) Sjogren's disease Sjogren's disease Insulin resistance Hypothyroidism Pain of left calf Hypertension [facility] Work Phone: Chief complaint+Reason for visit Narrative* Chief Complaint SORE THROAT/HEADACHE /PCR exposure employee Reason for Visit COVID-19 Needlestick injury of finger Occupational exposure in workplace [facility] Work Phone: Consult note Author Konrad Henderson [facility] Note Date/Time January 16, 2025 6:28a [facility] Medical Records Department [address] [place] [address] Pre-Anesthesia Evaluation 01/16/25 0627 MR#: [id number] Acct: [id number] Name: ALMA ADEN Rep #:[id number] : 1980 44 From: Konrad Henderson MD PCP: Dr. Wyatt Marcelo MD Status:R EG SDC Y Race: C Location: [place] [address] ASA Classification* ASA Classification ASA Classification: 3 [...] Procedure(s): EGD Anesthesia History Anesthesia History - geological sample tester: Anesthesia History - geological sample tester Hx Hospitalization No 01/14/25 14:39 Any Problems [...] take am of surgery PONV PONV - geological sample tester: PONV - geological sample tester Female Yes 01/14/25 14:39 HX of Motion [...] 01/16/25 05:54 Respiratory Assessment Respiratory Assessment - geological sample tester: Respiratory Tract Infection Hx - geological sample tester Hx Respiratory Tract Infection No 01/14/25 14:39 STOP Sleep Apnea STOP Sleep Apnea - geological sample tester: STOP Sleep Apnea - geological sample tester Hx Hypertension Yes 01/14/25 14:39 Hx Sleep [...] Tobacco Use History Tobacco Use History - geological sample tester: Tobacco Use History - geological sample tester Tobacco Use Smoking Status Never smoker 01/14/25 14:39 Hx Tobacco Use No 01/14/25 14:39 Years Smoking Packs Smoked per Day Smoking Cessation Date was within the last 15 years Hx Smoking Cessation Date Hx Smoking Cessation Counseling Hematologic Medial History Hematologic Hx - geological sample tester: 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 Specify any problems Hx of Preganancy in last 3 No 01/14/25 14:39 Months Nurse Filling Out Transfusion VLEHMANKATO 01/14/25 14:39 & Questions: Date: 01/14/25 01/14/25 14:39 Time: 14:46 01/14/25 14:39 Patient unable to answer at this time (ie. 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 Physical Exam Const alert and oriented x3 Nutritional Appearance: obese Neck full ROM Cardio regular rate and regular rhythm Neuro oriented x3 and moves all extremities 01/16/25 0628 <Electronically signed by Konrad Rasmussen> Date _ Konrad Henderson MD Cosigner Signature: Date CC: ~ Signed [facility] Work Phone: Consult note Author Konrad Henderson [facility] Note Date/Time January 16, 2025 7:55a m [facility] Medical Records Department [address] [facility] [place] [address] Anesthesia Postop Eval II 01/16/25 0746 MR#: [id number] Acct: [id number] Name: ALMA ADEN Rep #:[id number] : 1980 44 From: Konrad Henderson MD PCP: Dr. Wyatt Marcleo MD Status:R [facility] Y Race: C Location: [place] [address] Anesthesia Postop Eval I Sum Postop Eval Completion status Anesthesia document: Postop Eval 1 completed: Yes Anesthesia Postop Eval I Summary Anesthesia Postop Eval I Summary: Anesthesia Postop Eval I: Assessment Summary Airway patent Yes 01/16/25 07:20 FEATURE [email or web address].MDOT Spontaneous unlabored Yes 01/16/25 07:20 FEATURE [email or web address].MDOT respirations Mental status Awake,Calm 01/16/25 07:20 FEATURE [email or web address].MDOT nausea No 01/16/25 07:20 FEATURE [email or web address].MDOT Vomiting No 01/16/25 07:20 FEATURE [email or web address].MDOT Anesthesia Postop Eval I: Fluid Summary Crystalloid volume administer 100 01/16/25 07:20 FEATURE [email or web address].MDOT (ml) Colloids volume administered ( ml) Blood Product volume administered (ml) Total IV fluid infused 100 01/16/25 07:20 FEATURE [email or web address].MDOT Anesthesia Postop Eval I: Summary Notes Anesthesia Complication No 01/16/25 07:20 FEATURE [email or web address].MDOT Anesthesia Complication Comment: Post-operative progress note Anesthesia: Postop Eval II Evaluation Mental status: Awake and Calm Pain Level: 1 nausea: No Vomiting: No Complications Anesthesia Complication: No 01/16/25 0746 <Electronically signed by Konrad Adamson D> Date _ Konrad Paul Signature: Date CC: ~ Signed [facility] Work Phone: Evaluation note* Diagnosis Onset Date Resolution Status BMI 45.0-49.9, adult chronic KRISTOPHER (obstructive sleep apnea) chronic Sjogren's disease chronic Sjogren's disease chronic Insulin resistance acute Hypothyroidism chronic Pain of left calf acute Hypertension chronic [facility] Work Phone: Evaluation note* Diagnosis Onset Date Resolution Status Pain of left calf acute Hypertension chronic Anxiety and depression chron ic Hypertension chronic Hypothyroidism chronic BMI 50.0-59.9, adult noneact werner Sweating increase noneactive [facility] Work Phone: Evaluation note* Diagnosis Onset Date Resolution Status Anxiety and depression chron ic Hypertension chronic Hypothyroidism chronic BMI 50.0-59.9, adult noneact werner Sweating increase noneactive COVID-19 acute [facility] Work Phone: Evaluation note* Diagnosis Onset Date Resolution Status COVID-19 acute Needlestick injury of finger acute Occupational exposure in workplace acute [facility] Work Phone: Evaluation note* Diagnosis Onset Date Resolution Status Needlestick injury of finger acute Occupational exposure in workplace acute Preventative health care non eactive [facility] Work Phone: Evaluation note* Diagnosis Onset Date Resolution Status Preventative health care non eactive Back pain noneactive Hip pain noneactive [facility] Work Phone: Evaluation note* Diagnosis Onset Date Resolution Status Back pain noneactive Hip pain noneactive Hypercalcemia acute Prediabetes acute Hypothyroidism chronic Vitamin deficiency chronic Acute bronchitis, unspecified acute B12 deficiency chronic Migraine headache without aura chronic Urge incontinence chronic B12 deficiency chronic [facility] Work Phone: Evaluation note* Diagnosis Onset Date Resolution Status Back pain noneactive Hip pain noneactive Hypercalcemia acute Prediabetes acute Hypothyroidism chronic Vitamin deficiency chronic B12 deficiency chronic Migraine headache without aura chronic Urge incontinence chronic B12 deficiency chronic Obesity, morbid, BMI 50 or higher acute Urge incontinence chronic Encounter for routine gynecological examination noneactive [facility] Work Phone: Evaluation note* Diagnosis Onset Date Resolution Status Hypercalcemia acute Prediabetes acute Hypothyroidism chronic Vitamin deficiency chronic B12 deficiency chronic Migraine headache without aura chronic Urge incontinence chronic B12 deficiency chronic Obesity, morbid, BMI 50 or higher acute Urge incontinence chronic Encounter for routine gynecological examination noneactive B12 deficiency [facility] Work Phone: Evaluation note* Diagnosis Onset Date Resolution Status Hypercalcemia acute Prediabetes acute Hypothyroidism chronic Vitamin deficiency chronic B12 deficiency chronic Migraine headache without aura chronic Urge incontinence chronic B12 deficiency chronic Obesity, morbid, BMI 50 or higher acute Urge incontinence chronic Encounter for routine gynecological examination noneactive B12 deficiency chronic Lymph node enlargement acute Primary hyperparathyroidism acute [facility] Work Phone: Evaluation note* Diagnosis Onset Date Resolution Status B12 deficiency chronic Migraine headache without aura chronic Urge incontinence chronic B12 deficiency chronic Obesity, morbid, BMI 50 or higher acute Urge incontinence chronic Encounter for routine gynecological examination noneactive B12 deficiency chronic Lymph node enlargement acute Primary hyperparathyroidism acute B12 deficiency chronic Autoimmune disease acute Cat bite acute [facility] Work Phone: Evaluation note* Diagnosis [...] (obstructive sleep apnea) chronic Sjogren's disease chronic [facility] Work Phone: Evaluation note* Diagnosis Onset Date Resolution Status B12 deficiency chronic Lymph node enlargement acute Primary hyperparathyroidism acute B12 deficiency chronic Autoimmune disease acute Cat bite acute B12 deficiency chronic BMI 45.0-49.9, adult chronic KRISTOPHER (obstructive sleep apnea) chronic Sjogren's disease chronic [facility] Work Phone: Evaluation note* Diagnosis Onset Date Resolution Status Autoimmune disease acute Cat bite acute B12 deficiency chronic BMI 45.0-49.9, adult chronic KRISTOPHER (obstructive sleep apnea) chronic Sjogren's disease chronic Palpitations acute Arthritis chronic Hypertension chronic [facility] Work Phone: Evaluation note* Diagnosis Onset Date Resolution Status BMI 45.0-49.9, adult chronic KRISTOPHER (obstructive sleep apnea) chronic Sjogren's disease chronic Palpitations acute Arthritis chronic Hypertension chronic Chest pain in adult noneacti ve [facility] Work Phone: Evaluation note* Diagnosis Onset Date Resolution Status Palpitations acute Arthritis chronic Hypertension chronic Chest pain in adult noneacti ve Borderline type 2 diabetes mellitus acute Preventative health care acu te Migraine headache without aura chronic [facility] Work Phone: Evaluation note* Diagnosis Onset Date Resolution Status Obesity, morbid, BMI 50 or higher acute Anxiety and depression chron ic [facility] Work Phone: Evaluation note* Diagnosis Onset Date Resolution Status Obesity, morbid, BMI 50 or higher acute Anxiety and depression chron ic Acute sinusitis acute [facility] Work Phone: History and physical note Author Hammad Friend [facility] Note Date/Time January 16, 2025 6:57a [facility] Medical Records Department [address] [place] [address] History & Physical Exam 01/16/25 0655 MR#: [id number] Acct: [id number] Name: ALMA ADEN Rep #:[id number] : 1980 44 From: Hammad Loaiza PCP: Dr. Wyatt Marcelo MD Status:R [facility] Location: [place] [address] HPI - General General Date of Admission: 01/16/25 Date of Service: 01/16/25 Chief Complaint: GERD HPI Narrative ALMA ADEN, is a 44 F who presents Chief Complaint: BRBPR [facility] established in 2020 with diarrhea and constipation. Pt has heartburn and takes TUMs and nexium PRN. EGD 9.1.22; Gastritis. Biopsied. - Erythematous duodenopathy. Biopsied. Colonoscopy .08.07; - Tortuous colon. - One 3 mm [...] take pepcid as needed but not daily. 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 Pt originally established with [facility] in 2020 for alternating constipation and [...] Wyatt Marcelo MD; Hammad Loaiza DO~ Signed [facility] Work Phone: Progress note Author Kati Hilliard [facility] Note Date/Time January 21, 2025 1:22p m [facility] [address] [place], [place] [address] OFFICE VISIT Date of Service: 01/21/25 MR#: [id number] Acct: [id number] Name: ALMA ADEN Rep #: [id number] : 1980 Provider: ZAFAR Hilliard Age/Sex: 44/F Location: [facility] Status: Signed Intake Vital Signs 01/16/25 05:54 01/21/25 12:40 Height 5 ft 8 in 5 ft 8 in BP 132/80 H Blood Pressure Location Lt brachial Position Sitting Respiration 16 Pulse 86 Pulse Source Monitor Temp 95.6 F L Temp Source Temporal Pulse Oximetry (%) 97 Oxygen Delivery Method room air Intake Visit Reasons: ACUTE LEFT HEEL PAIN Chief Complaint: heel pain [place] Clerk Required: No Accompanied by: Self Is patient [...] at home: Yes 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 [employer] Chief Complaint: heel pain Details: [...] well nourished Orientation: alert and oriented x3 [facility] Head: normal to inspection Ears: hearing grossly [...] needed 01/21/25 1322 <Electronically signed by Kati viramontes BAG MACHINE HELPER-C> Date _ Kati Hilliard BAG MACHINE HELPER-C Cosigner Signature: Date (if applicable) CC: ~ [facility] Work Phone: Reason for referral (narrative)No reason for referral information availableWSamaritan [facility] Work Phone: Summary Purpose Family History [...] Will No July 28 10:25am Power of Catalog Librarian No July 28, 2021 10:25am Advance Directive Response Recorded Date/ Time Living Will No March 07 2 1:03pm Power of Catalog Librarian No March 07, 022 1:03pm Advance Directive Response Recorded Date/ Time Living Will No March 07 2 12:03pm Power of Catalog Librarian No March 07, 2 022 12:03pm Advance Directive Response Recorded Date/ Time Living Will No June 11, 023 8:07am Power of Catalog Librarian No June 11, 2023 8:07am Advance Directive Response Recorded Date/ Time Living Will No June 11, 2 023 9:07am Power of Catalog Librarian No June 11, 2023 9:07am Advance Directive Response Recorded Date/ Time Living Will No January 18, 2024 1 2:16pm Do you have a Healthcare Power of Catalog Librarian? No January 18, 2024 12:16pm Advance Directive Response Recorded Date/ Time Living Will No January 18, 2024 1 2:16pm Do you have a Healthcare Power of Catalog Librarian? No January 18, 2024 12:16pm Do you have a Healthcare Power of Catalog Librarian? No January 14, 2025 2:39pm Chief Complaint [...] LABS AND XRAY Amb Documentation B12 Annual (CLAM SHOVEL OPERATOR) Reason for Visit Back pain Hip pain Hypercalcemia Prediabetes Hypothyroidism Vitamin deficiency B12 deficiency Migraine headache without aura Urge incontinence B12 deficiency Obesity, morbid, BMI 50 or higher Urge incontinence Encounter for routine gynecological examination Chief Complaint 1 Y FU cold symptoms FOLLOW UP/MEDS B12 LABS AND XRAY Amb Documentation B12 Annual (CLAM SHOVEL OPERATOR) b12 SCREENING LOCALIZED PARATHYROID ADENOMA Reason for Visit Hypercalcemia Prediabetes Hypothyroidism Vitamin deficiency B12 deficiency Migraine headache without aura Urge incontinence B12 deficiency Obesity, morbid, BMI 50 or higher Urge incontinence Encounter for routine gynecological examination B12 deficiency Chief Complaint 1 Y FU cold symptoms FOLLOW UP/MEDS B12 LABS AND XRAY Amb Documentation B12 Annual (CLAM SHOVEL OPERATOR) b12 SCREENING LOCALIZED PARATHYROID ADENOMA HYPERPARATHYROIDISM Enlarged [...] LABS AND XRAY Amb Documentation B12 Annual (CLAM SHOVEL OPERATOR) b12 SCREENING LOCALIZED PARATHYROID ADENOMA HYPERPARATHYROIDISM Enlarged [...] LABS AND XRAY Amb Documentation B12 Annual (CLAM SHOVEL OPERATOR) b12 SCREENING LOCALIZED PARATHYROID ADENOMA HYPERPARATHYROIDISM Enlarged [...] LABS AND XRAY Amb Documentation B12 Annual (CLAM SHOVEL OPERATOR) b12 SCREENING LOCALIZED PARATHYROID ADENOMA HYPERPARATHYROIDISM Enlarged [...] 2024 6:57a m GERD (gastroesophageal reflux disease) [facility] 2024 6:57am Hyperparathyroidism January 07, 2025 11:2 [...] LEFT FOOT January 21, 2025 4:27p m Chief Complaint Admit Date 6 M FU October 23, 2024 4:43 pm RECTAL BLEEDING - COLONOSCOPY December 13, 2024 6:57am 13 M FU, Cx 12/13January 07, 2025 11:2 6am ACUTE LEFT HEEL PAIN January 21, 2025 12:3 4pm pain- LEFT FOOT January 21, 2025 4:27p m INT ORDER FOR 24 HOUR URINE February 01, 025 10:49am Additional Source Comments INFORMATION SOURCE (unrecogn ized section and content) DATE CREATED AUTHOR 01/09/2018 [facility] DATE CREATED AUTHOR AUTHOR'S ORGANIZ ATION 09/14/2021 [facility] DATE CREATED AUTHOR AUTHOR'S ORGANIZ ATION 10/03/2021 [facility] DATE CREATED AUTHOR AUTHOR'S ORGANIZ ATION 02/09/2025 [facility] Care Teams (unrecognized sec tion and [...] Provider, Refer ring Provider Active Dirk Paula BAG MACHINE HELPER, BAG MACHINE HELPER-C Attending Provider Active Team Status: Active Member Role Status Dates Dr. Wyatt Marcelo MD Primary Care Provider Active Dirk Paula BAG MACHINE HELPER, BAG MACHINE HELPER-C Attending Provider Active Team Status: Inactive Member Role Status Dates Dr. Wyatt Marcelo MD Primary Care P rovider, Attending Provider, Referring Provider Active Team Status: Inactive Member Role Status Dates Dr. Wyatt Marcelo MD Primary Care Provider Active Dirk Paula BAG MACHINE HELPER, BAG MACHINE HELPER-C Attending Provider Active Team Status: Inactive Member Role Status Dates Dr. Wyatt Marcelo MD Primary Care Provider, Refer ring Provider Active Laine Coronado BAG MACHINE HELPER, BAG MACHINE HELPER-C Attending Provider Active Team Status: Active Member [...] MD Primary Care Provider Active Laine Coronado BAG MACHINE HELPER, BAG MACHINE HELPER-C Attending Provider Active Team Status: Inactive Member [...] Status: Inactive Member Role Status Dates Dr. Waytt Marcelo MD Primary Care Provider Active Dr. Juan R Arredondo MD Attending Provider, Referring P rovider Active Team Status: Active Member Role Status Dates Dr. Wyatt Marcelo MD Primary Care Provider Active Dirk Paula BAG MACHINE HELPER, BAG MACHINE HELPER-C Attending Provider, Referring Prov ider Active Team Status: Inactive Member Role Status Dates Dr. Wyatt Marcelo MD Primary Care Provider Active STEVEN BOLES MD Attending Provider Active Team Status: Inactive Member Role Status Dates Dr. Wyatt Marcelo MD Primary Care Provider Active Dirk Paula BAG MACHINE HELPER, BAG MACHINE HELPER-C Attending Provider, Referring Prov ider Active Team [...] MD Primary Care Provider Active Liliana Bangura NP-Therese Attending Provider, Referring Pro vider Active Team [...] January 21, 2025 End: January 21, 2025 ZAFAR Prather Attending Provider Active Start: January 21, 2025 End: January 21, 2025 Team Status: Inactive Member Role/Relationship Status Dates Dr. Wyatt Marcelo MD Primary Care Provider Active Start: January 21, 2025 End: January 21, 2025 ZAFAR Prather Attending Provider Active Start: January 21, 2025 End: January 21, 2025 ZAFAR Prather Referring Provider Active Start: January 21, 2025 End: January 21, 2025 Team Status: Inactive Member Role/Relationship Status Dates Dr. Wyatt Marcelo MD Primary Care Provider Active Start: January 28, 2025 End: January 28, 2025 STEVEN BOLES MD Attending Provider Active S tart: January 28, 2025 End: January 28, 2025 STEVEN BOLES MD Referring Provider Active S tart: January 28, 2025 End: January 28, 2025 Team Status: Active Member Role/Relationship Status Dates Dr. Wyatt Marcelo MD Primary Care Provider Active Start: February 01, 2025 Dr. Cali Lou MD Attending Provider Active Sta rt: February 01, 2025 Dr. Cali Lou MD Referring Provider Active Sta rt: February 01, 2025 Team Status: Inactive Member Role/Relationship Status Dates Dr. Wyatt Marcelo MD Primary Care Provider Active Start: January 14, 2025 Dr. Mary Don MD Attending Provider Active Start: January 14, 2025 Team Status: Inactive Member Role/Relationship Status [...] 2025 End: January 21, 2025 Kati Hilliard BAG MACHINE HELPER-C Attending Provider Active Start: January 21, 2025 End: January 21, 2025 Team Status: Inactive Member Role/Relationship Status Dates Dr. Wyatt Marcelo MD Primary Care Provider Active Start: January 21, 2025 End: January 21, 2025 Kati Hilliard BAG MACHINE HELPER-C Attending Provider Active Start: January 21, 2025 End: January 21, 2025 Kati Hilliard BAG MACHINE HELPER-C Referring Provider Active Start: January 21, 2025 End: January 21, 2025 Team Status: Inactive Member Role/Relationship Status Dates Dr. Wyatt Marcelo MD Primary Care Provider Active Start: January 28, 2025 End: January 28, 2025 STEVEN BOLES MD Attending Provider Active S tart: January 28, 2025 End: January 28, 2025 STEVEN BOLES MD Referring Provider Active S tart: January 28, 2025 End: January 28, 2025 Team Status: Inactive Member Role/Relationship Status Dates Dr. Wyatt Marcelo MD Primary Care Provider Active Start: February 01, 2025 End: February 01, 2025 Dr. Cali Lou MD Attending Provider Active Sta rt: February 01, 2025 End: February 01, 2025 Dr. Cali Lou MD Referring Provider Active Sta rt: February 01, 2025 End: February 01, 2025 FOR RECORDS PERTAINING TO PATIENTS WHO [...] BE BASED ON THE PRIMARY CLINICAL RECORDS. [facility] [employer], [facility]. provides no warranty or guarantee of the accuracy or completeness of information in this document.
[2025-02-09 08:36] LABS: Hematocrit 33.6 % (37-47); Hemoglobin 11.0 g/dL (12.0-15.0); Immature Granulocytes Count 0.030 X10^3/uL (0.0-0.0); Mean Corp Hgb Conc 32.7 g/dL (32-36); Mean Corpuscular Volume 96.8 fL (81-99); Mean Platelet Vol. 9.0 fl (6.2-12.0); NRBC Flagged by Analyzer 0 % (0-5); Platelet Count 266 K/mm3 (150-450); RBC Distribution Width CV 13.4 % (11.6-14.6); RBC Distribution Width SD 47.3 fl (35.1-43.9); Red Blood Count 3.47 M/mm3 (4.2-5.4); White Blood Count 6.3 K/mm3 (4.4-11.0)
== END | disposition home or self-care (01) ==
LOC: LAB 08:13
PROVIDERS: PCP Internal Medicine; Referring Provider Internal Medicine; Visit Provider Internal Medicine
DX: D72.829 Elevated white blood cell count, unspecified (principal)
CPT/HCPCS: 36415; 85025

== ENCOUNTER → 2025-02-27 | Outpatient (CLI) | payer OTHER, SELFPAY ==
--- OUTSIDE RECORDS SUMMARY | 2025-02-27 07:49 | XMS RPT_ITS | CCD ---
Author Organization [facility] Care Team Providers Care Monorail Crane Operator Name Role Phone ANTONIO, CHRISTOPHER R [...] DR Unavailable Unavailable SLAVA BEYER Unavailable Unavailable PEPITOSLAVA PERRY L Unavailable Unavailable [...] Provider Dr. Cali Amador Attending Provider Paula PROGRAM SERVICES ASSISTANT, PROGRAM SERVICES ASSISTANT-C Dirk Attending Provider [phone] Dr. Wyatt Marcelo Attending Provider [phone] Candice Lopez Attending Provider Unavailable Ivonne PROGRAM SERVICES ASSISTANT, PROGRAM SERVICES ASSISTANT-C Laine Attending Provider [phone] Dr. Wyatt Marcelo Primary Care Provider [phone] Dr. Wyatt Marcelo Referring Provider [phone] Dr. Juan R Arredondo Attending Provider Dr. Cali Lou Referring Provider Dr. Wyatt Marcelo Primary Care Provider [phone] Dr. Wyatt Marcelo Referring Provider [phone] Dr. Wyatt Marcelo Primary Care Provider [phone] Dr. Wyatt Marcelo Referring Provider [phone] Nisa PROGRAM SERVICES ASSISTANT, PROGRAM SERVICES ASSISTANT-C Dirk Attending Provider [phone] Dr. Geovanni Mendiola [...] Care Provider RAMANA CAMILO, STEVEN Attending Provider [phone] RAMANA CAMILO, STEVEN Referring Provider Irma Valentin Attending Provider Davian CAMILO, Dr. Schneider Primary Care Provider Davian CAMILO, Dr. Schneider Referring Provider [phone] King LESLEE, Dr. Leiva Attending Provider Fadia GRIMES, Dr. Cueva Attending Provider Friend , Dr. Cueva Other Provider [phone] Ungerer PROGRAM SERVICES ASSISTANT-C, Kati Attending Provider [phone] Ungerer PROGRAM SERVICES ASSISTANT-C, Kati Referring Provider [phone] King LESLEE, Dr. Leiva Referring Provider Florencia CAMILO, Dr. Hernandez Attending Provider Davian CAMILO, Dr. Schneider Primary Care Provider Davian CAMILO, Dr. Schneider Attending Provider [phone] Davian CAMILO, Dr. Schneider Referring Provider [phone] Nimco Gonzalez Attending Unavailable Lisa, Nimco Referring Unavailable Oleghe, Efewongbe Primary Care Unavailable STEVEN BOLES Referring Unavailable STEVEN BOLES Attending Unavailable Oleghe, Efewongbe Primary Care Unavailable BIELAWSGT CARDOSON Referring Unavailable BIELAWSKISTEVEN Attending Unavailable Oleghe, Efewongbe Primary Care Unavailable Oleghe, Efewongbe Primary Care Unavailable Ungerer, Kati Referring Unavailable Ungerer, Kati Attending Unavailable Carmine, Cali Referring Unavailable Cali Lou Attending Unavailable Oleghe, Efewongbe Primary Care Unavailable Hammad Loaiza Attending Unavailable Hammad Loaiza Consulting Unavailable Oleghe, Efewongbe Primary Care Unavailable Oleghe, Efewongbe Referring Unavailable Lisa Nimco Attending Unavailable Oleghe, Efewongbe Primary Care Unavailable Oleghe, Efewongbe Referring Unavailable Oleghe, Efewongbe Referring Unavailable Oleghe, Efewongbe Attending Unavailable Oleghe, Efewongbe Primary Care Unavailable Hammad Loaiza Attending Unavailable Oleghe, Efewongbe Primary Care Unavailable Oleghe, Efewongbe Referring Unavailable BILAVELLEWSJANAE, STEVEN Referring Unavailable BILAVELLEWSKIGTN Attending Unavailable Oleghe, Efewongbe Primary Care Unavailable Assessment, Health Risk Referring Unavaila ble Assessment, Health Risk Attending Unavaila ble Oleghe, Efewongbe Primary Care Unavailable Estrellita Cloeman Referring Unavailable Estrellita Coleman Attending Unavailable Oleghe, Efewongbe Primary Care Unavailable Estrellita Coleman Referring Unavailable Estrellita Coleman Attending Unavailable Oleghe, Efewongbe Primary Care Unavailable Oleghe, Efewongbe Primary Care Unavailable Felicita Conroy Attending Unavailable Oleghe, Efewongbe Attending Unavailable Oleghe, Efewongbe Primary Care Unavailable Oleghe, Efewongbe Referring Unavailable Irma Delaney Attending Unavailable Oleghe, Efewongbe Referring Unavailable Oleghe, Efewongbe Primary Care Unavailable Oleghe, Efewongbe Referring Unavailable Corie Tan Attending Unavailable Lisa, Nimco Referring Unavailable Lisa, Nimco Attending Unavailable Oleghe, Efewongbe Primary Care Unavailable Lisa, Nimco Referring Unavailable Lisa, Nimco Attending Unavailable Oleghe, Efewongbe Primary Care Unavailable LisaTerryNimco Attending Unavailable Lisa, Nimco Referring Unavailable Oleghe, Efewongbe Primary Care Unavailable Estrellita Coleman Attending Unavailable Oleghe, Efewongbe Referring Unavailable Oleghe, Efewongbe Primary Care Unavailable Oleghe, Efewongbe Primary Care Unavailable Cali Lou Attending Unavailable Oleghe, Efewongbe Referring Unavailable Oleghe, Efewongbe Referring Unavailable Oleghe, Efewongbe Primary Care Unavailable Kati Hilliard Attending Unavailable Oleghe, Efewongbe Referring Unavailable Oleghe, Efewongbe Attending Unavailable Oleghe, Efewongbe Primary Care Unavailable Karl Lopez Attending Unavailable Oleghe, Efewongbe Primary Care Unavailable Oleghe, Efewongbe Referring Unavailable Oleghe, Efewongalla Attending Unavailable Hamzahmai Wyatt Primary Care Unavailable Hamzahmai Wyatt Referring Unavailable HamzahmaiRicknathaly Attending Unavailable HamzahmaiRicknathaly Primary Care Unavailable Allergies Allergy Classification Reported Allergen(s) Allergy Type Date of Onset Reaction(s) Facility (20 sources) escitalopram; Translations: [ESCITALOPRAM] Drug Allergy 2 Other [facility] Comment on above: HEADACHE (1 source) penicillin; Translations: [PENICILLIN] Drug Allergy [facility] (1 source) Penicillins; Translations: [PENICILLINS] Propensity to adverse reactions (disorder) [facility] (20 sources) Latex Allergy to substance 2 Rash [facility] (20 sources) Penicillin G Drug Allergy 2 Other [facility] (16 sources) SUMAtriptan Drug Allergy 3 headache [facility] (1 source) Latex Drug allergy (disorder) 5 [facility] (1 source) Penicillin Drug Allergy 5 [facility] (1 source) SUMAtriptan Drug Allergy 5 [facility] Medications Current Medications Medication Drug [...] mg oral tablet (20 sources) Start: 12-16-2019 End: 02-11-2025 take 1 tablet by mouth once daily Ferrous Sulfate (Ferosul) 325 mg (65 mg iron) tablet Active 325 mg PO DAILY 90 February 11, 2025 10:49am Insulin Syringe Needleless (2 sources) Start: 10-10-2023 Insulin Syring e Needleless Active 0 .Route October 10, 2023 12:00am As directed mecobalamin 1 mg chewable tablet (11 sources) Start: 11-14-2023 take 1 tablet by mouth once daily Mecobalamin (Vitamin B12) 1,000 mcg tablet,chewable Active 1000 ug PO DAILY November 14, 2023 12:00am melatonin 3 mg oral capsule (11 sources) Start: 11-14-2023 take 1 capsule by mouth at bedtime Melatonin 3 mg capsule Active 3 mg PO BEDTIME November 14, 2023 12:00am Methotrexate 2 mg/mL solution (11 sources) Start: 08-31-2024 Methotrexate 2 mg/mL solution [...] Start: 04-25-2024 take 1 tablet by kevin th once daily as needed for arthritis Prednisone [...] tablet Discontinued 10 mg PO .COMPLEX 30 0 July 20, 2019 1:00am September 16, 2019 12:14pm 10 mg PO Take 4 pills for 3 days, take 3 pills for 3 days, take 2 pills for 3 days, take 1 pill for 3 days,; 24 hr upadacitinib 15 mg extended release oral tablet (11 sources) Start: 11-14-2023 take 1 tablet by [...] 21, 2018 1:00am June 26, 2018 1:09am [id number] 200 actuat albuterol 0.09 mg/actuat metered dose [...] tablet Discontinued 500 mg PO Q12H 14 December 05, 2022 12:00am March 10, 2023 [...] March 31, 2020 1:22pm Compress.Stocking,Knee,Reg,L rg misc (11 sources) Start: 03-12-2019 End: 12-05-2022 Compress.Stocking,Knee,Reg,L rg [...] mmHg cyclobenzaprine hydrochloride 5 mg oral tablet (17 sources) Muscle Relaxant Start: 04-26-2023 End: 11-14-2023 [...] tablet Discontinued 6 mg PO DAILY 5 0 February 10, 2022 12:00am July 01, 2022 [...] release(DR/EC) Discontinued 30 mg PO DAILY 90 March 07, 2024 8:55am September 05, 2024 [...] 1:58pm Insulin Syringe Needleless 1 mL syringe (11 sources) Start: 10-10-2023 End: 03-20-2024 Insulin Syringe [...] hydrochloride 500 mg extended release oral tablet (9 sources) Biguanide Start: 11-29-2024 End: 01-14-2025 take 1 tablet by mouth twice daily Metformin (Glucophage Xr) 500 mg tablet extended release 24 hr Discontinued 500 mg PO TWICE A DAY 60 November 29, 2024 12:00am January 14, 2025 [...] 9:25am ondansetron 4 mg disintegrating oral tablet (16 sources) Serotonin-3 Receptor Antagonist Start: 06-11-2023 End: [...] after breakfast BMI 50 polyethylene glycol [id number] mg powder for oral solution (20 sources) [...] 03, 2023 9:03am for 4 weeks Semaglutide (14 sources) Start: 10-03-2023 End: 10-03-2023 Semaglutide 0.25 [...] 9:43am for 4 weeks Semaglutide (Weight Loss) (14 sources) Start: 10-03-2023 End: 03-20-2024 Semaglutide (Weight [...] m g (2 mg/3 mL) pen injector (11 sources) Start: 10-03-2023 End: 10-03-2023 Semaglutide 0.25 [...] 2 hours after meals Tirzepatide (Weight Loss) (20 sources) Start: 10-23-2024 End: 01-07-2025 Tirzepatide (Weight [...] 21, 2019 12:00pm Vitamin B Complex capsule (11 sources) Start: 09-14-2017 End: 02-21-2019 Vitamin B [...] Translations: [Mixed anxiety and depressive disorder] Onset: 7 Chronic Biliary tract disease (20 sources) Biliary dyskinesia; Translations: [Other specified diseases of gallbladder] 06-21-2018 Episodic Cardiac dysrhythmias (20 sources) Palpitations; Translations: [Palpitations] 03-10-2023 Episodic Deficiency and other anemia (20 sources) Anemia; Translations: [Anemia, unspecified] 02-21-2019 Episodic Diabetes mellitus without complication (20 sources) Type 2 diabetes mellitus controlled by diet; Translations: [Type 2 diabetes mellitus without complications] Onset: 5 10-11-2024 Chronic Diseases of white blood cells (5 sources) Leukocytosis; Translations: [Elevated white blood cell count, unspecified] Onset: 5 01-29-2025 Chronic E Codes: Natural/environment (20 sources) [...] D, iron, B12 Open wounds of extremities (11 sources) Laceration of finger; Translations: [Laceration without foreign body of unspecified finger without damage to nail, initial encounter] 01-26-2024 Episodic Osteoarthritis (20 sources) Arthritis; Translations: [Unspecified osteoarthritis, unspecified site] 02-21-2019 Chronic Other acquired deformities (11 sources) Lumbar spondylolisthesis; Translations: [Spondylolisthesis, lumbar region] 05-10-2024 Episodic Other acquired deformities (11 sources) Spondylolysis; Translations: [Spondylolysis, lumbar region] 05-10-2024 [...] in limb] Episodic Other connective tissue disease (12 sources) Heel pain; Translations: [Pain in left foot] 01-21-2025 Episodic Other connective tissue disease (1 source) Pain in left foot; Translations: [Pain in left foot] Onset: 5 Episodic Other endocrine disorders (20 sources) Primary hyperparathyroidism; Translations: [Primary hyperparathyroidism] 11-03-2022 Chronic Other endocrine disorders (8 sources) Primary hyperparathyroidism; Translations: [Primary hyperparathyroidism] Onset: 4 11-23-2022 Chronic Other endocrine disorders (15 sources) Hyperparathyroidism; Translations: [Hyperparathyroidism, unspecified] 01-07-2025 Chronic [...] limb] 12-16-2019 Chronic Other nervous system disorders (14 sources) Carpal tunnel syndrome of right wrist; [...] congestion] 05-22-2021 Episodic Other upper respiratory infections (14 sources) Sinusitis; Translations: [Chronic sinusitis, unspecified] 08-31-2024 [...] 06-25-2024 Episodic Other aftercare (1 source) Other care home (current) drug therapy; Translations: [Other care home (current) drug therapy] Onset: 04-23-2024 Episodic Other [...] Test Name Value Interpretation Reference Range Facility Absolute lymphocyte countOrd ered By: Wyatt Hooperovidio on 02-09-2025 Lymphocytes Auto (Unsp spec) [#/Vol] 1.22 10*3/uL 0.83-4.51 [facility] Absolute neutrophil countOrd ered By: dentondillealla Rufusovidio on 02-09-2025 Neutrophils (Bld) [#/Vol] 4.5 10*3/uL 2.0-7.7 [facility] Automated lymphocyte count a s percentage of total leukocytesOrdered By: Wyatt Marcelo on 02-09-2025 Lymphocytes/100 WBC Auto (Unsp spec) 19.5 % 19-41 [facility] Basophil percentageOrdered B y: Rickdentonmarcelo Hamzahkoltonovidio on 02-09-2025 Basophils/100 WBC (Bld) 0.5 % 0-1 [facility] CBC W/Diff, Automatedon 01-15 Absolute Lymph 1.22 X10 3/uL Normal 0.83-4.51 [facility] Comment on above: Performed By: #### L 100.0100 #### [facility] [address] [place], [address] Absolute Neut 4.5 X10 3/uL Normal 2.0-7.7 [facility] Comment on above: Performed By: #### L 100.0100 #### [facility] [address] [place], [address] Basophils/100 WBC (Bld) 0.5 % Normal 0-1 [facility] Comment on above: Performed By: #### L 100.0100 #### [facility] [address] [place], [address] Eosinophils/100 WBC (Bld) 1.8 % Normal 0-5 [facility] Comment on above: Performed By: #### L 100.0100 #### [facility] [address] [place], [address] Erythrocyte distribution width (RBC) [Ratio] 13.4 % Normal 11.6-14.6 [facility] Comment on above: Performed By: #### L 100.0100 #### [facility] [address] [place], [address] Hematocrit (Bld) [Volume fraction] 33.6 % Low 37-47 [facility] Comment on above: Performed By: #### L 100.0100 #### [facility] [address] [place], [address] Hemoglobin (Bld) [Mass/Vol] 11.0 g/dL Low 12.0-15.0 [facility] Comment on above: Performed By: #### L 100.0100 #### [facility] [address] [place], [address] IG% 0.500 Normal 0.0-0.9 [facility] Comment on above: Result Comment: IG% - Immature Granulocytes (promyelocytes, myelocytes and metamyelocytes) > 1% indicates that a LEFT SHIFT is Present. Performed By: #### L 100.0100 #### [facility] [address] [place], [address] Lymphocytes/100 WBC (Bld) 19.5 % Normal 19-41 [facility] Comment on above: Performed By: #### L 100.0100 #### [facility] [address] [place], [address] MCH (RBC) [Entitic mass] 31.7 pg Normal 27.0-32.0 [facility] Comment on above: Performed By: #### L 100.0100 #### [facility] [address] [place], [address] MCHC (RBC) [Mass/Vol] 32.7 g/dL Normal 32-36 [facility] Comment on above: Performed By: #### L 100.0100 #### [facility] [address] [place], [address] MCV (RBC) [Entitic vol] 96.8 fL Normal 81-99 [facility] Comment on above: Performed By: #### L 100.0100 #### [facility] [address] [place], [address] Monocytes/100 WBC (Bld) 6.2 % Normal 0-10 [facility] Comment on above: Performed By: #### L 100.0100 #### [facility] [address] [place], [address] Neutrophils/100 WBC (Bld) 71.5 % High 47-70 [facility] Comment on above: Performed By: #### L 100.0100 #### [facility] [address] [place], [address] Nucleated RBC (Bld) [#/Vol] 0 10*3/uL Normal 0-5 [facility] Comment on above: Performed By: #### L 100.0100 #### [facility] [address] [place], [address] Platelet mean volume (Bld) [Entitic vol] 9.0 fL Normal 6.2-12.0 [facility] Comment on above: Performed By: #### L 100.0100 #### [facility] [address] [place], [address] Platelets (Bld) [#/Vol] 266 10*3/uL Normal 150-450 [facility] Comment on above: Performed By: #### L 100.0100 #### [facility] [address] [place], [address] RBC (Bld) [#/Vol] 3.47 10*6/uL Low 4.2-5.4 [facility] Comment on above: Performed By: #### L 100.0100 #### [facility] [address] [place], [address] RDW SD 47.3 fl High 35.1-43.9 [facility] Comment on above: Performed By: #### L 100.0100 #### [facility] [address] [place], [address] WBC (Bld) [#/Vol] 6.3 10*3/uL Normal 4.4-11.0 [facility] Comment on above: Performed By: #### L 100.0100 #### [facility] [address] [place], [address] Eosinophil percentageOrdered By: Wyatt Marcelo on 02-09-2025 Eosinophils/100 WBC (Bld) 1.8 % 0-5 [facility] Erythrocyte distribution wid th ratioOrdered By: dentondillealla Marcelo on 02-09-2025 Erythrocyte distribution width (RBC) [Ratio] 13.4 % 11.6-14.6 [facility] Erythrocyte distribution wid th standard deviationOrdered By: [facility] Goodsonovidio on 02-09-2025 Erythrocyte distribution width (RBC) [Ratio] 47.3 fl High 35.1-43.9 [facility] Hematocrit Auto (Bld) [Volum e fraction]Ordered By: Wyatt Marcelo on 02-09-2025 Hematocrit (Bld) [Volume fraction] 33.6 % Low 37-47 [facility] Hemoglobin measurementOrdere d By: Wyatt Marcelo on 02-09-2025 Hemoglobin (Bld) [Mass/Vol] 11.0 g/dL Low 12.0-15.0 [facility] Immature granulocytes/100 WB C Auto (Bld)Ordered By: Wyatt Marcelo on 02-09-2025 Immature granulocytes/100 WBC (Bld) 0.500 % 0.0-0.9 [facility] Comment on above: IG% - Immature Granu locytes (promyelocytes, myelocytes and metamyelocytes) > 1% indicates that a LEFT SHIFT is Present. MCV (mean corpuscular volume ) determinationOrdered By: Wyatt Marcelo on 02-09-2025 MCV (RBC) [Entitic vol] 96.8 fL 81-99 [facility] Mean corpuscular hemoglobin (MCH) determinationOrdered By: Wyatt Goodsonkoltonovidio on 02-09-2025 MCH (RBC) [Entitic mass] 31.7 pg 27.0-32.0 [facility] Mean corpuscular hemoglobin concentration (MCHC) determinationOrdered By: nathaly Marcelo on 02-09-2025 MCHC (RBC) [Mass/Vol] 32.7 g/dL 32-36 [facility] Mean platelet volume determi nationOrdered By: Wyatt Goodsonkoltonovidio on 02-09-2025 Platelet mean volume (Bld) [Entitic vol] 9.0 fL 6.2-12.0 [facility] Monocyte percentageOrdered B y: Wyatt Goodsonokltonovidio on 02-09-2025 Monocytes/100 WBC (Bld) 6.2 % 0-10 [facility] Neutrophil percentageOrdered By: nathaly Goodsonkoltonovidio on 02-09-2025 Neutrophils/100 WBC (Bld) 71.5 % High 47-70 [facility] Nucleated red blood cell per centageOrdered By: Wyatt Goodsonkoltonovidio on 02-09-2025 Nucleated RBC/100 WBC (Bld) [Ratio] 0 % 0-5 [facility] Platelet countOrdered By: Rick reshmaalla Goodsonkoltonovidio on 02-09-2025 Platelets (Bld) [#/Vol] 266 10*3/uL 150-450 [facility] RBC Auto (Bld) [#/Vol]Ordere d By: Natbethalla Goodsonkoltonovidio on 02-09-2025 RBC (Bld) [#/Vol] 3.47 10*6/uL Low 4.2-5.4 [facility] White blood cell (WBC) count Ordered By: Wyatt Marcelo on 02-09-2025 WBC (Bld) [#/Vol] 6.3 10*3/uL 4.4-11.0 [facility] 24 hour urine specimen volum e measurementOrdered By: Cali Lou on 02-01-2025 Specimen volume (24H U) 2.32 L [facility] Calcium [Mass/time] in 24 ho ur UrineOrdered By: Cali Lou on 02-01-2025 Calcium (24H U) [Mass/Time] 355.0 mg/24 HR High 42.0-353.0 [facility] Calcium, Urine 24HRon 2024 24HR UR Calcium 355.0 mg/24 HR High 42.0-353.0 [facility] Comment on above: Performed By: #### L 506.1001, L101.9900, L501.6710, L500.3400, L509.1000, L100.0100, L501.1105 #### [facility] [address] [place], [address] Urine Calcium 15.3 mg/dL Normal Not Estab. [facility] Comment on above: Performed By: #### L 506.1001, L101.9900, L501.6710, L500.3400, L509.1000, L100.0100, L501.1105 #### [facility] [address] [place], [address] Calcium UR pH 1 Normal [facility] Comment on above: Performed By: #### L 506.1001, L101.9900, L501.6710, L500.3400, L509.1000, L100.0100, L501.1105 #### [facility] [address] [place], [address] UR Collect Time 24.0 HR Normal 24.0-24.0 [facility] Comment on above: Performed By: #### L 506.1001, L101.9900, L501.6710, L500.3400, L509.1000, L100.0100, L501.1105 #### [facility] [address] [place], [address] UR Total Volume 2320 ml Normal [facility] Comment on above: Performed By: #### L 506.1001, L101.9900, L501.6710, L500.3400, L509.1000, L100.0100, L501.1105 #### [facility] [address] [place], [address] Laboratory - Chemistry and C hemistry - challengeOrdered By: Cali Lou on 02-01-2025 pH (U) 1 [pH] [facility] Laboratory - Specimen inform ationOrdered By: Cali Lou on 02-01-2025 Collection time (Gia) [Date/time] 24.0 HR 24.0-24.0 [facility] Urine calcium measurement (m ass/volume)Ordered By: Cali Lou on 02-01-2025 Calcium (U) [Mass/Vol] 15.3 mg/dL Not Estab. [facility] L501.0895on 01-30-2025 Calcium [Mass/Vol] 10.2 mg/dL Normal 7.6-11.0 [facility] Comment on above: Performed By: #### L 501.9915 #### [facility] [address] [facility] [place], [address] Serum or plasma calcium sancho urement (mass/volume)Ordered By: Cali Lou on 01-30-2025 Calcium [Mass/Vol] 10.2 mg/dL 7.6-11.0 [facility] Absolute lymphocyte countOrd ered By: Cali Lou on 01-28-2025 Lymphocytes Auto (Unsp spec) [#/Vol] 0.91 10*3/uL 0.83-4.51 [facility] Absolute neutrophil countOrd ered By: Cali Lou on 01-28-2025 Neutrophils (Bld) [#/Vol] 12.5 10*3/uL High 2.0-7.7 [facility] Automated lymphocyte count a s percentage of total leukocytesOrdered By: Cali Lou on 01-28-2025 Lymphocytes/100 WBC Auto (Unsp spec) 6.6 % Low 19-41 [facility] Basophil percentageOrdered B y: Cali Carmine on 01-28-2025 Basophils/100 WBC (Bld) 0.1 % 0-1 [facility] Bilirubin directOrdered By: Cali Lou on 01-28-2025 Bilirubin.direct [Mass/Vol] 0.18 mg/dL 0.00-0.30 [facility] Bilirubin, totalOrdered By: Cali Lou on 01-28-2025 Bilirubin [Mass/Vol] 0.49 mg/dL 0.00-1.30 [facility] CBC W/Diff, Automatedon 01-14-2024 Absolute Lymph 0.91 X10 3/uL Normal 0.83-4.51 [facility] Comment on above: Performed By: #### L 506.1001, L101.9900, L501.6710, L500.3400, L509.1000, L100.0100, L501.1105 #### [facility] [address] [place], [address] Absolute Neut 12.5 X10 3/uL High 2.0-7.7 [facility] Comment on above: Performed By: #### L 506.1001, L101.9900, L501.6710, L500.3400, L509.1000, L100.0100, L501.1105 #### [facility] [address] [place], [address] Basophils/100 WBC (Bld) 0.1 % Normal 0-1 [facility] Comment on above: Performed By: #### L 506.1001, L101.9900, L501.6710, L500.3400, L509.1000, L100.0100, L501.1105 #### [facility] [address] [place], [address] Eosinophils/100 WBC (Bld) 0.0 % Normal 0-5 [facility] Comment on above: Performed By: #### L 506.1001, L101.9900, L501.6710, L500.3400, L509.1000, L100.0100, L501.1105 #### [facility] [address] [place], [address] Erythrocyte distribution width (RBC) [Ratio] 13.5 % Normal 11.6-14.6 [facility] Comment on above: Performed By: #### L 506.1001, L101.9900, L501.6710, L500.3400, L509.1000, L100.0100, L501.1105 #### [facility] [address] [place], [address] Hematocrit (Bld) [Volume fraction] 39.6 % Normal 37-47 [facility] Comment on above: Performed By: #### L 506.1001, L101.9900, L501.6710, L500.3400, L509.1000, L100.0100, L501.1105 #### [facility] [address] [place], [address] Hemoglobin (Bld) [Mass/Vol] 12.9 g/dL Normal 12.0-15.0 [facility] Comment on above: Performed By: #### L 506.1001, L101.9900, L501.6710, L500.3400, L509.1000, L100.0100, L501.1105 #### [facility] [address] [place], [address] IG% 0.500 Normal 0.0-0.9 [facility] Comment on above: Result Comment: IG% - Immature Granulocytes (promyelocytes, myelocytes and metamyelocytes) > 1% indicates that a LEFT SHIFT is Present. Performed By: #### L 506.1001, L101.9900, L501.6710, L500.3400, L509.1000, L100.0100, L501.1105 #### [facility] [address] [place], [address] Lymphocytes/100 WBC (Bld) 6.6 % Low 19-41 [facility] Comment on above: Performed By: #### L 506.1001, L101.9900, L501.6710, L500.3400, L509.1000, L100.0100, L501.1105 #### [facility] [address] [place], [address] MCH (RBC) [Entitic mass] 31.1 pg Normal 27.0-32.0 [facility] Comment on above: Performed By: #### L 506.1001, L101.9900, L501.6710, L500.3400, L509.1000, L100.0100, L501.1105 #### [facility] [address] [place], [address] MCHC (RBC) [Mass/Vol] 32.6 g/dL Normal 32-36 [facility] Comment on above: Performed By: #### L 506.1001, L101.9900, L501.6710, L500.3400, L509.1000, L100.0100, L501.1105 #### [facility] [address] [place], [address] MCV (RBC) [Entitic vol] 95.4 fL Normal 81-99 [facility] Comment on above: Performed By: #### L 506.1001, L101.9900, L501.6710, L500.3400, L509.1000, L100.0100, L501.1105 #### [facility] [address] [place], [address] Monocytes/100 WBC (Bld) 2.1 % Normal 0-10 [facility] Comment on above: Performed By: #### L 506.1001, L101.9900, L501.6710, L500.3400, L509.1000, L100.0100, L501.1105 #### [facility] [address] [place], [address] Neutrophils/100 WBC (Bld) 90.7 % High 47-70 [facility] Comment on above: Performed By: #### L 506.1001, L101.9900, L501.6710, L500.3400, L509.1000, L100.0100, L501.1105 #### [facility] [address] [place], [address] Nucleated RBC (Bld) [#/Vol] 0 10*3/uL Normal 0-5 [facility] Comment on above: Performed By: #### L 506.1001, L101.9900, L501.6710, L500.3400, L509.1000, L100.0100, L501.1105 #### [facility] [address] [place], [address] Platelet mean volume (Bld) [Entitic vol] 9.5 fL Normal 6.2-12.0 [facility] Comment on above: Performed By: #### L 506.1001, L101.9900, L501.6710, L500.3400, L509.1000, L100.0100, L501.1105 #### [facility] [address] [place], [address] Platelets (Bld) [#/Vol] 407 10*3/uL Normal 150-450 [facility] Comment on above: Performed By: #### L 506.1001, L101.9900, L501.6710, L500.3400, L509.1000, L100.0100, L501.1105 #### [facility] [address] [place], [address] RBC (Bld) [#/Vol] 4.15 10*6/uL Low 4.2-5.4 [facility] Comment on above: Performed By: #### L 506.1001, L101.9900, L501.6710, L500.3400, L509.1000, L100.0100, L501.1105 #### [facility] [address] [place], [address] RDW SD 47.7 fl High 35.1-43.9 [facility] Comment on above: Performed By: #### L 506.1001, L101.9900, L501.6710, L500.3400, L509.1000, L100.0100, L501.1105 #### [facility] [address] [place], [address] WBC (Bld) [#/Vol] 13.8 10*3/uL High 4.4-11.0 [facility] Comment on above: Performed By: #### L 506.1001, L101.9900, L501.6710, L500.3400, L509.1000, L100.0100, L501.1105 #### [facility] [address] [place], [address] CRPon 01-28-2025 C-REACTIVE PROT 9.59 mg/L High 0.0-3.0 [facility] Comment on above: Order Comment: DR. Ministerio BIANCHI GETS RESULTS FOR CRP ESR LIVER CBCD CREATININE DR. LOU GETS RESULTS FOR VITD AND PTH Performed By: #### L 506.1001, L101.9900, L501.6710, L500.3400, L509.1000, L100.0100, L501.1105 #### [facility] [address] [place], [address] Eosinophil percentageOrdered By: Cali Lou on 01-28-2025 Eosinophils/100 WBC (Bld) 0.0 % 0-5 [facility] Erythrocyte Sed Rateon 01-28 SED RATE 21 mm/hr Normal 0-30 [facility] Comment on above: Performed By: #### L 506.1001, L101.9900, L501.6710, L500.3400, L509.1000, L100.0100, L501.1105 #### [facility] [place], [address] Erythrocyte distribution wid th ratioOrdered By: Cali Lou on 01-28-2025 Erythrocyte distribution width (RBC) [Ratio] 13.5 % 11.6-14.6 [facility] Erythrocyte distribution wid th standard deviationOrdered By: Cali Lou on 01-28-2025 Erythrocyte distribution width (RBC) [Ratio] 47.7 fl High 35.1-43.9 [facility] Erythrocyte sedimentation ra teOrdered By: Cali Lou on 01-28-2025 ESR (Bld) [Velocity] 21 mm/h 0-30 [facility] Glomerular filtration rate ( GFR) estimation/1.73 sq m using serum, plasma, or whole bOrdered By: Cali Lou on 01-28-2025 GFR/1.73 sq M.predicted among non-blacks MDRD (S/P/Bld) [Vol rate/Area] 72 mL/min/{1.73_m2} >60 [facility] Comment on above: mL/min/1.73m2 CKD-EP I Creatinine Equation (2020) Hematocrit Auto (Bld) [Volum e fraction]Ordered By: Cali Lou on 01-28-2025 Hematocrit (Bld) [Volume fraction] 39.6 % 37-47 [facility] Hemoglobin measurementOrdere d By: Cali Lou on 01-28-2025 Hemoglobin (Bld) [Mass/Vol] 12.9 g/dL 12.0-15.0 [facility] Immature granulocytes/100 WB C Auto (Bld)Ordered By: Cali Lou on 01-28-2025 Immature granulocytes/100 WBC (Bld) 0.500 % 0.0-0.9 [facility] Comment on above: IG% - Immature Granu locytes (promyelocytes, myelocytes and metamyelocytes) > 1% indicates that a LEFT SHIFT is Present. Laboratory - Chemistry and C hemistry - challengeOrdered By: Cali Lou on 01-28-2025 AST [Catalytic activity/Vol] 17 U/L <32 [facility] Liver Profileon 01-28-2025 Albumin [Mass/Vol] 4.4 g/dL Normal 3.5-5.0 [facility] Comment on above: Order Comment: DR. Ministerio BIANCHI GETS RESULTS FOR CRP ESR LIVER CBCD CREATININE DR. LOU GETS RESULTS FOR VITD AND PTH Performed By: #### L 506.1001, L101.9900, L501.6710, L500.3400, L509.1000, L100.0100, L501.1105 #### [facility] [address] [place], [address] ALK PHOS 65 U/L Normal 35-104 [facility] Comment on above: Order Comment: DR. Ministerio BIANCHI GETS RESULTS FOR CRP ESR LIVER CBCD CREATININE DR. LOU GETS RESULTS FOR VITD AND PTH Performed By: #### L 506.1001, L101.9900, L501.6710, L500.3400, L509.1000, L100.0100, L501.1105 #### [facility] [address] [place], [address] ALT [Catalytic activity/Vol] 16 U/L Normal <=34 [facility] Comment on above: Order Comment: DR. Ministerio BIANCHI GETS RESULTS FOR CRP ESR LIVER CBCD CREATININE DR. LOU GETS RESULTS FOR VITD AND PTH Performed By: #### L 506.1001, L101.9900, L501.6710, L500.3400, L509.1000, L100.0100, L501.1105 #### [facility] [address] [place], [address] AST [Catalytic activity/Vol] 17 U/L Normal <=31 [facility] Comment on above: Order Comment: DR. Ministerio BIANCHI GETS RESULTS FOR CRP ESR LIVER CBCD CREATININE DR. LOU GETS RESULTS FOR VITD AND PTH Performed By: #### L 506.1001, L101.9900, L501.6710, L500.3400, L509.1000, L100.0100, L501.1105 #### [facility] [address] [place], [address] Bilirubin [Mass/Vol] 0.49 mg/dL Normal 0.00-1.30 [facility] Comment on above: Order Comment: DR. Ministerio BIANCHI GETS RESULTS FOR CRP ESR LIVER CBCD CREATININE DR. LOU GETS RESULTS FOR VITD AND PTH Performed By: #### L 506.1001, L101.9900, L501.6710, L500.3400, L509.1000, L100.0100, L501.1105 #### [facility] [address] [place], [address] Bilirubin.direct [Mass/Vol] 0.18 mg/dL Normal 0.00-0.30 [facility] Comment on above: Order Comment: DR. Ministerio BIANCHI GETS RESULTS FOR CRP ESR LIVER CBCD CREATININE DR. LOU GETS RESULTS FOR VITD AND PTH Performed By: #### L 506.1001, L101.9900, L501.6710, L500.3400, L509.1000, L100.0100, L501.1105 #### [facility] [address] [place], [address] Globulin (S) [Mass/Vol] 3.0 g/dL Normal 2.2-4.2 [facility] Comment on above: Order Comment: DR. Ministerio BIANCHI GETS RESULTS FOR CRP ESR LIVER CBCD CREATININE DR. LOU GETS RESULTS FOR VITD AND PTH Performed By: #### L 506.1001, L101.9900, L501.6710, L500.3400, L509.1000, L100.0100, L501.1105 #### [facility] [address] [place], [address] T PROT 7.4 g/dL Normal 5.9-8.4 [facility] Comment on above: Order Comment: DR. Ministerio BIANCHI GETS RESULTS FOR CRP ESR LIVER CBCD CREATININE DR. LOU GETS RESULTS FOR VITD AND PTH Performed By: #### L 506.1001, L101.9900, L501.6710, L500.3400, L509.1000, L100.0100, L501.1105 #### [facility] [address] [place], [address] MCV (mean corpuscular volume ) determinationOrdered By: Cali Lou on 01-28-2025 MCV (RBC) [Entitic vol] 95.4 fL 81-99 [facility] Mean corpuscular hemoglobin (MCH) determinationOrdered By: Cali Lou on 01-28-2025 MCH (RBC) [Entitic mass] 31.1 pg 27.0-32.0 [facility] Mean corpuscular hemoglobin concentration (MCHC) determinationOrdered By: Cali Lou on 01-28-2025 MCHC (RBC) [Mass/Vol] 32.6 g/dL 32-36 [facility] Mean platelet volume determi nationOrdered By: Cali Lou on 01-28-2025 Platelet mean volume (Bld) [Entitic vol] 9.5 fL 6.2-12.0 [facility] Monocyte percentageOrdered B y: Cali Lou on 01-28-2025 Monocytes/100 WBC (Bld) 2.1 % 0-10 [facility] Neutrophil percentageOrdered By: Cali Lou on 01-28-2025 Neutrophils/100 WBC (Bld) 90.7 % High 47-70 [facility] Nucleated red blood cell per centageOrdered By: Cali Lou on 01-28-2025 Nucleated RBC/100 WBC (Bld) [Ratio] 0 % 0-5 [facility] PTHINon 01-28-2025 PTH 151 pg/mL High 11-61 [facility] Comment on above: Performed By: #### L 506.1001, L101.9900, L501.6710, L500.3400, L509.1000, L100.0100, L501.1105 #### [facility] [address] [place], [address] Platelet countOrdered By: Jean Lou on 01-28-2025 Platelets (Bld) [#/Vol] 407 10*3/uL 150-450 [facility] RBC Auto (Bld) [#/Vol]Ordere d By: Cali Lou on 01-28-2025 RBC (Bld) [#/Vol] 4.15 10*6/uL Low 4.2-5.4 [facility] Serum Creatinine AND GFRon 0 01-28-2025 Creatinine [Mass/Vol] 1.00 mg/dL Normal 0.70-1.20 [facility] Comment on above: Order Comment: DR. Ministerio BIANCHI GETS RESULTS FOR CRP ESR LIVER CBCD CREATININE DR. LOU GETS RESULTS FOR VITD AND PTH Performed By: #### L 506.1001, L101.9900, L501.6710, L500.3400, L509.1000, L100.0100, L501.1105 #### [facility] [address] [place], [address] GFR/1.73 sq M.predicted among non-blacks MDRD (S/P/Bld) [Vol rate/Area] 72 mL/min/{1.73_m2} Normal >60 [facility] Comment on above: Order Comment: DR. Ministerio BIANCHI GETS RESULTS FOR CRP ESR LIVER CBCD CREATININE DR. LOU GETS RESULTS FOR VITD AND PTH Result Comment: mL/m in/1.73m2 CKD-EPI Creatinine Equation (2020) Performed By: #### L 506.1001, L101.9900, L501.6710, L500.3400, L509.1000, L100.0100, L501.1105 #### [facility] [address] [place], [address] Serum creatinine measurement (mass/volume)Ordered By: Cali Lou on 01-28-2025 Creatinine [Mass/Vol] 1.00 mg/dL 0.70-1.20 [facility] Serum globulin measurementOr dered By: Cali Lou on 01-28-2025 Globulin (S) [Mass/Vol] 3.0 g/dL 2.2-4.2 [facility] Serum or plasma C reactive p rotein measurement (mass/volume)Ordered By: Cali Lou on 01-28-2025 CRP [Mass/Vol] 9.59 mg/L High 0.0-3.0 [facility] Serum or plasma alanine zuñiga otransferase (ALT) measurementOrdered By: Cali Lou on 01-28-2025 ALT [Catalytic activity/Vol] 16 U/L <35 [facility] Serum or plasma albumin sancho urement (mass/volume)Ordered By: Cali Lou on 01-28-2025 Albumin [Mass/Vol] 4.4 g/dL 3.5-5.0 [facility] Serum or plasma alkaline nallely sphatase measurementOrdered By: Cali Lou on 01-28-2025 ALP [Catalytic activity/Vol] 65 U/L 35-104 [facility] Total proteinOrdered By: Nito Lou on 01-28-2025 Protein [Mass/Vol] 7.4 g/dL 5.9-8.4 [facility] Vitamin D,25 Hydroxyon 01-28 Vitamin D 25-OH 35.0 ng/mL Normal 30-100 [facility] Comment on above: Order Comment: DR. Ministerio BIANCHI GETS RESULTS FOR CRP ESR LIVER CBCD CREATININE DR. LOU GETS RESULTS FOR VITD AND PTH Result Comment: Mira min D Status Deficiency: <20 ng/mL (50nmol/L) Insufficiency: 20-30 ng/mL (50-75 nmol/L) Sufficiency: 30-100 ng/mL (75-250 nmol/L) Toxicity: >100 ng/mL (>250 nmol/L) Performed By: #### L 506.1001, L101.9900, L501.6710, L500.3400, L509.1000, L100.0100, L501.1105 #### [facility] [address] [place], [address] White blood cell (WBC) count Ordered By: Cali Lou on 01-28-2025 WBC (Bld) [#/Vol] 13.8 10*3/uL High 4.4-11.0 [facility] Foot min 3 Viewson 5 Foot min 3 Views [facility] Imaging Services [address] [place] [address] Foot min 3 Views MR#: [id number] Acct: [id number] Name: ALMA ADEN Rep #: [id number] : 1980 F 44 From: Skyler mancuso MD PCP: Dr. Wyatt Marcelo MD Status: REG CLI Study: Foot min 3 Views Date of Exam: 01/21/25 Exam# [id number] Ordering Dr: Kati Hilliard PROCEDURE: FOOT MIN [...] seen. No new acute findings. Reading Location: [place] [address] CC: ZAFAR Hilliard; Dr. Wyatt Marcelo MD Billing Control Clerk: Signed Normal [facility] Internal Medicine Office Vis itojamee 01-21-2025 Internal Medicine Office Visit [facility] [address] [place] [address] [place] [address] OFFICE VISIT Date of Service: 01/21/25 MR#: [id number] Acct: [id number] Name: ALMA ADEN Rep #: [id number] : 1980 Provider: ZAFAR neil Age/Sex: 44/F [place] [facility] [place] [place]: Signed Intake Vital Signs 01/16/25 05:54 01/21/25 12:40 Height 5 ft 8 in 5 ft 8 in BP 132/80 H Blood Pressure Location Lt brachial Position Sitting Respiration 16 Pulse 86 Pulse Source Monitor Temp 95.6 F L Temp Source Temporal Pulse Oximetry (%) 97 Oxygen Delivery Method room air Intake Visit Reasons: ACUTE LEFT HEEL PAIN Chief Complaint: heel pain It Service Delivery Manager Required: No Accompanied by: Self Is [...] at home: Yes 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 Patient states no injury no increase in activity no change in footwear (more content not included)... Normal [facility] EGD Reporton 01-16-2025 EGD Report [facility] Medical Records Department [address] [place] [address] EGD Report MR#: [id number] Acct: [id number] Name: ALMA ADEN Rep #: [id number] : 1980 44 From: Hammad Loaiza DO PCP: Dr. Wyatt Marcelo MD [place] [facility] [place] Name: Alma Aden Procedure Date: 01/16/2025 [...] 4 weeks Procedure Code(s): --- Professional --- 00518, Small intestinal endoscopy, enteroscopy beyond second portion of duodenum, not including ileum; with biopsy, single or multiple CPT copyright 2021 [employer]. All rights reserved. The codes documented in this report are preliminary and upon rounding and backing machine operator review may be revised to meet current compliance requirements. Hammad Loaiza DO 01/16/2025 (more content not included)... Normal [facility] Immunohistochemical Stainson 01-16-2025 Immunohistochemical Stains Patient Age/Sex Location Account Attending Physician ALMA ADEN 44/F EN [id number] Hammad Loaiza DO Specimen: [id number] Received: 01/16/25 Status: BETH Gerber Num: [id number] Spec Type: EGD BIOPSY Subm Dr: Hammad [...] developed and their performance characteristics determined by [facility]. They may not have been cleared [...] totally submitted in one cassette. JOHN/ 01/16/2025 CPT:86914e0,16300 Patient Age/Sex Location Account Attending Physician ALMA ADEN 44/F MIKE [id number] Hammad Loaiza DO Signed (signature on file) Dr. Shelley Gunn MD 01/21/25 1529 Normal [facility] Comment on above: Performed By: #### L 506.1001, L101.9900, L501.6710, L500.3400, L509.1000, L100.0100, L501.1105 #### [facility] [address] [place], [address] MR/POSTOP.[facility] 01-16-2025 MR/POSTOP.[facility] Medical Records Department [address] [place] [address] Anesthesia Postop Eval I 01/16/25 0719 MR#: [id number] Acct: [id number] Name: ALMA ADEN Snow Rep #: [id number] : 1980 44 From: Adi Berger CRNA PCP: Dr. Wyatt Marcelo MD Status:REG SDC Y Race: C Location: [place] [address] Anesthesia: Postop Eval I Current Vital Signs [...] Eval 1 completed: Yes 01/16/25719 Date Adi Rivasjaywander TENTER Cosigner Signature: Date CC: Signed Normal [facility] MR/[id number] 01-16-2025 MR/POSTOPAN2 [facility] Medical Records Department [address] [place] [address] Anesthesia Postop Eval II 01/16/25 07 MR#: [id number] Acct: [id number] Name: ALMA ADEN Rep #: [id number] : 1980 44 From: Konrad Henderson MD PCP: Dr. Wyatt Marcelo MD Status:REG AZC Y Race: C Location: [place] [address] Anesthesia Postop Eval I Sum Postop Eval Completion status Anesthesia document: Postop Eval 1 completed: Yes Anesthesia Postop Eval I Summary Anesthesia Postop Eval I Summary: Anesthesia Postop Eval I: Assessment Summary Airway patent Yes 01/16/25 07:20 TENTER.MDOT Spontaneous unlabored Yes 01/16/25 07:20 TENTER.MDOT respirations Mental status Awake,Calm 01/16/25 07:20 TENTER.MDOT nausea No 01/16/25 07:20 TENTER.MDOT Vomiting No 01/16/25 07:20 TENTER.MDOT Anesthesia Postop Eval I: Fluid Summary Crystalloid volume administer 100 01/16/25 07:20 TENTER.MDOT (ml) Colloids volume administered ( ml) Blood Product volume administered (ml) Total IV fluid infused 100 01/16/25 07:20 TENTER.MDOT Anesthesia Postop Eval I: Summary Notes Anesthesia Complication No 01/16/25 07:20 TENTER.MDOT Anesthesia Complication Comment: Post-operative progress note Anesthesia: Postop Eval II Evaluation Mental status: Awake and Calm Pain Level: 1 nausea: No Vomiting: No Complications Anesthesia Complication: No 01/16/25 0746 Date Konrad Farleyigner Signature: Date CC: Signed Normal [facility] Endocrinology Visit Reporton 01-07-2025 Endocrinology Visit Report [facility] 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 Normal [facility] Progress Noteon 12-17-2024 Progress Note [facility] SURGICAL WEIGHT LOSS MANAGEMENT PROGRAM Rooming Note - INITIAL CONSULTATION Patient: Alma Aden Date of : 1980 Service Date: 12/17/2024 Patient is here today to discuss the possibility of weight loss surgery. Physician Supervised D/E: 12 WEEKS Weight Metrics: Vitals BP: 133/84 Heart Rate: 78 Resp: 18 Temp: (!) 35.9 ?C (96.6 ?F) Baseline Measures Initial Height: 5' 8 (172.7 cm) Initial Weight: 393 lb 12.8 oz (179 kg) Initial BMI: 60 Initial EBW: 253 lb 12.8 oz (115 kg) Initial Waist Cricumference: 56.5 Initial Neck Circumference: 19.5 Measurements IBW in lbs: 140 lb Initial BMI: 59.87 Weight: (!) 393 lb 12.8 oz (179 kg) BMI (Calculated): 60 % Excess Weight Loss: 0 Percent Weight Change Since Last Visit: 178.62 kg Initial Excess Weight (kg): -63.5 kg Initial Neck Circumference: 19.5 Initial Waist Cricumference: 56.5 History of Difficult Intubation: No Patient is not on home O2 Completed by: Ayaka Shaikh MA [facility] Progress Note This encounter was c reated in error - please disregard. [facility] Gastroenterology Visit Repor ton 12-13-2024 Gastroenterology Visit Report [facility] [address] [place] [address] OFFICE VISIT Date of Service: 12/13/24 MR#: [id number] Acct: [id number] Name: ALMA ADEN Rep #: [id number] : 1980 Provider: ISIDRA Champagne Age/Sex: 44/F [place] [facility] [place] Status: Signed Intake Vital Signs 10/23/24 16:47 [...] with BMs. Also reports increased acid reflux. 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 [facility] established in 2020 with diar (more content not included)... Normal [facility] T4 Free Directon 11-08-2024 T4 FREE DIRECT 1.00 ng/dL Normal 0.76-1.46 [facility] Comment on above: Performed By: #### L 506.1001, L101.9900, L501.6710, L500.3400, L509.1000, L100.0100, L501.1105 #### [facility] [facility] [address] [place], [place], [id number] Thyroid Stim Hormone (TSH)on 11-08-2024 TSH 0.729 uIU/mL Normal 0.300-4.200 [facility] Comment on above: Performed By: #### L 506.1001, L101.9900, L501.6710, L500.3400, L509.1000, L100.0100, L501.1105 #### [facility] [address] [place], [address] Absolute lymphocyte countOrd ered By: STEVEN BOLES on 11-07-2024 Lymphocytes Auto (Unsp spec) [#/Vol] 1.84 10*3/uL 0.83-4.51 [facility] Absolute neutrophil countOrd ered By: STEVEN BOLES on 11-07-2024 Neutrophils (Bld) [#/Vol] 4.2 10*3/uL 2.0-7.7 [facility] Automated lymphocyte count a s percentage of total leukocytesOrdered By: STEVEN BOLES on 11-07-2024 Lymphocytes/100 WBC Auto (Unsp spec) 27.3 % 19-41 [facility] Basophil percentageOrdered B y: STEVEN BOLES on 11-07-2024 Basophils/100 WBC (Bld) 0.7 % 0-1 [facility] Bilirubin directOrdered By: STEVEN BOLES on 11-07-2024 Bilirubin.direct [Mass/Vol] 0.12 mg/dL 0.00-0.30 [facility] Bilirubin, totalOrdered By: STEVEN BOLES on 11-07-2024 Bilirubin [Mass/Vol] 0.29 mg/dL 0.00-1.30 [facility] CBC W/Diff, Automatedon 10-16 Absolute Lymph 1.84 X10 3/uL Normal 0.83-4.51 [facility] Comment on above: Performed By: #### L 506.1001, L101.9900, L501.6710, L500.3400, L509.1000, L100.0100, L501.1105 #### [facility] [address] [place], [address] Absolute Neut 4.2 X10 3/uL Normal 2.0-7.7 [facility] Comment on above: Performed By: #### L 506.1001, L101.9900, L501.6710, L500.3400, L509.1000, L100.0100, L501.1105 #### [facility] [address] [place], [address] Basophils/100 WBC (Bld) 0.7 % Normal 0-1 [facility] Comment on above: Performed By: #### L 506.1001, L101.9900, L501.6710, L500.3400, L509.1000, L100.0100, L501.1105 #### [facility] [address] [place], [address] Eosinophils/100 WBC (Bld) 2.1 % Normal 0-5 [facility] Comment on above: Performed By: #### L 506.1001, L101.9900, L501.6710, L500.3400, L509.1000, L100.0100, L501.1105 #### [facility] [address] [place], [address] Erythrocyte distribution width (RBC) [Ratio] 12.7 % Normal 11.6-14.6 [facility] Comment on above: Performed By: #### L 506.1001, L101.9900, L501.6710, L500.3400, L509.1000, L100.0100, L501.1105 #### [facility] [address] [place], [address] Hematocrit (Bld) [Volume fraction] 36.6 % Low 37-47 [facility] Comment on above: Performed By: #### L 506.1001, L101.9900, L501.6710, L500.3400, L509.1000, L100.0100, L501.1105 #### [facility] [address] [place], [address] Hemoglobin (Bld) [Mass/Vol] 11.9 g/dL Low 12.0-15.0 [facility] Comment on above: Performed By: #### L 506.1001, L101.9900, L501.6710, L500.3400, L509.1000, L100.0100, L501.1105 #### [facility] [address] [place], [address] IG% 0.400 Normal 0.0-0.9 [facility] Comment on above: Result Comment: IG% - Immature Granulocytes (promyelocytes, myelocytes and metamyelocytes) > 1% indicates that a LEFT SHIFT is Present. Performed By: #### L 506.1001, L101.9900, L501.6710, L500.3400, L509.1000, L100.0100, L501.1105 #### [facility] [address] [place], [address] Lymphocytes/100 WBC (Bld) 27.3 % Normal 19-41 [facility] Comment on above: Performed By: #### L 506.1001, L101.9900, L501.6710, L500.3400, L509.1000, L100.0100, L501.1105 #### [facility] [address] [place], [address] MCH (RBC) [Entitic mass] 31.6 pg Normal 27.0-32.0 [facility] Comment on above: Performed By: #### L 506.1001, L101.9900, L501.6710, L500.3400, L509.1000, L100.0100, L501.1105 #### [facility] [address] [place], [address] MCHC (RBC) [Mass/Vol] 32.5 g/dL Normal 32-36 [facility] Comment on above: Performed By: #### L 506.1001, L101.9900, L501.6710, L500.3400, L509.1000, L100.0100, L501.1105 #### [facility] [address] [place], [address] MCV (RBC) [Entitic vol] 97.3 fL Normal 81-99 [facility] Comment on above: Performed By: #### L 506.1001, L101.9900, L501.6710, L500.3400, L509.1000, L100.0100, L501.1105 #### [facility] [address] [place], [address] Monocytes/100 WBC (Bld) 7.4 % Normal 0-10 [facility] Comment on above: Performed By: #### L 506.1001, L101.9900, L501.6710, L500.3400, L509.1000, L100.0100, L501.1105 #### [facility] [address] [place], [address] Neutrophils/100 WBC (Bld) 62.1 % Normal 47-70 [facility] Comment on above: Performed By: #### L 506.1001, L101.9900, L501.6710, L500.3400, L509.1000, L100.0100, L501.1105 #### [facility] [address] [place], [address] Nucleated RBC (Bld) [#/Vol] 0 10*3/uL Normal 0-5 [facility] Comment on above: Performed By: #### L 506.1001, L101.9900, L501.6710, L500.3400, L509.1000, L100.0100, L501.1105 #### [facility] [address] [place], [address] Platelet mean volume (Bld) [Entitic vol] 9.5 fL Normal 6.2-12.0 [facility] Comment on above: Performed By: #### L 506.1001, L101.9900, L501.6710, L500.3400, L509.1000, L100.0100, L501.1105 #### [facility] [address] [place], [address] Platelets (Bld) [#/Vol] 318 10*3/uL Normal 150-450 [facility] Comment on above: Performed By: #### L 506.1001, L101.9900, L501.6710, L500.3400, L509.1000, L100.0100, L501.1105 #### [facility] [address] [place], [address] RBC (Bld) [#/Vol] 3.76 10*6/uL Low 4.2-5.4 [facility] Comment on above: Performed By: #### L 506.1001, L101.9900, L501.6710, L500.3400, L509.1000, L100.0100, L501.1105 #### [facility] [address] [place], [address] RDW SD 45.2 fl High 35.1-43.9 [facility] Comment on above: Performed By: #### L 506.1001, L101.9900, L501.6710, L500.3400, L509.1000, L100.0100, L501.1105 #### [facility] [address] [place], [address] WBC (Bld) [#/Vol] 6.7 10*3/uL Normal 4.4-11.0 [facility] Comment on above: Performed By: #### L 506.1001, L101.9900, L501.6710, L500.3400, L509.1000, L100.0100, L501.1105 #### [facility] [address] [place], [address] CRPon 11-07-2024 C-REACTIVE PROT 7.96 mg/L High 0.0-3.0 [facility] Comment on above: Performed By: #### L 506.1001, L101.9900, L501.6710, L500.3400, L509.1000, L100.0100, L501.1105 #### [facility] [address] [place], [address] CRP [Mass/Vol]Ordered By: ME KEYONA BOLES on 11-07-2024 C-Reactive Protein Extended Range 7.96 mg/L High 0.0-3.0 [facility] Eosinophil percentageOrdered By: STEVEN BOLES on 11-07-2024 Eosinophils/100 WBC (Bld) 2.1 % 0-5 [facility] Erythrocyte Sed Rateon 11-07 SED RATE 8 mm/hr Normal 0-30 [facility] Comment on above: Performed By: #### L 506.1001, L101.9900, L501.6710, L500.3400, L509.1000, L100.0100, L501.1105 #### [facility] [address] [place], [address] Erythrocyte distribution wid th (RBC) [Ratio]Ordered By: STEVEN BOLES on 11-07-2024 Erythrocyte distribution width (RBC) [Entitic vol] 45.2 fL High 35.1-43.9 [facility] Erythrocyte distribution wid th ratioOrdered By: STEVEN BOLES on 11-07-2024 Erythrocyte distribution width (RBC) [Ratio] 12.7 % 11.6-14.6 [facility] Erythrocyte distribution wid th standard deviationOrdered By: STEVEN BOLES on 11-07-2024 Erythrocyte distribution width (RBC) [Ratio] 45.2 fl High 35.1-43.9 [facility] Erythrocyte sedimentation ra teOrdered By: STEVEN BOELS on 11-07-2024 ESR (Bld) [Velocity] 8 mm/h 0-30 [facility] GFR/1.73 sq M.predicted leann g non-blacks MDRD (S/P/Bld) [Vol rate/Area]Ordered By: STEVEN BOLES on 11-07-2024 Estimated GFR (MDRD) Non-Af Amer 95 >60 [facility] Comment on above: mL/min/1.73m2 CKD-EP I Creatinine Equation (2020) Glomerular filtration rate ( GFR) estimation/1.73 sq m using serum, plasma, or whole bOrdered By: STEVEN BOLES on 11-07-2024 GFR/1.73 sq M.predicted among non-blacks MDRD (S/P/Bld) [Vol rate/Area] 95 mL/min/{1.73_m2} >60 [facility] Comment on above: mL/min/1.73m2 CKD-EP I Creatinine Equation (2020) Hematocrit Auto (Bld) [Volum e fraction]Ordered By: STEVEN BOLES on 11-07-2024 Hematocrit (Bld) [Volume fraction] 36.6 % Low 37-47 [facility] Hemoglobin measurementOrdere d By: STEVEN BOLES on 11-07-2024 Hemoglobin (Bld) [Mass/Vol] 11.9 g/dL Low 12.0-15.0 [facility] Immature granulocytes/100 WB C Auto (Bld)Ordered By: STEVEN BOLES on 11-07-2024 Immature granulocytes/100 WBC (Bld) 0.400 % 0.0-0.9 [facility] Comment on above: IG% - Immature Granu locytes (promyelocytes, myelocytes and metamyelocytes) > 1% indicates that a LEFT SHIFT is Present. Laboratory - Chemistry and C hemistry - challengeOrdered By: STEVEN BOLES on 11-07-2024 AST [Catalytic activity/Vol] 16 U/L <32 [facility] Liver Profileon 11-07-2024 Albumin [Mass/Vol] 4.1 g/dL Normal 3.5-5.0 [facility] Comment on above: Performed By: #### L 506.1001, L101.9900, L501.6710, L500.3400, L509.1000, L100.0100, L501.1105 #### [facility] [address] [place], [place], [address] ALK PHOS 63 U/L Normal 35-104 [facility] Comment on above: Performed By: #### L 506.1001, L101.9900, L501.6710, L500.3400, L509.1000, L100.0100, L501.1105 #### [facility] [address] [place], [address] ALT [Catalytic activity/Vol] 18 U/L Normal <=34 [facility] Comment on above: Performed By: #### L 506.1001, L101.9900, L501.6710, L500.3400, L509.1000, L100.0100, L501.1105 #### [facility] [address] [place], [address] AST [Catalytic activity/Vol] 16 U/L Normal <=31 [facility] Comment on above: Performed By: #### L 506.1001, L101.9900, L501.6710, L500.3400, L509.1000, L100.0100, L501.1105 #### [facility] [address] [place], [address] Bilirubin [Mass/Vol] 0.29 mg/dL Normal 0.00-1.30 [facility] Comment on above: Performed By: #### L 506.1001, L101.9900, L501.6710, L500.3400, L509.1000, L100.0100, L501.1105 #### [facility] [address] [place], [address] Bilirubin.direct [Mass/Vol] 0.12 mg/dL Normal 0.00-0.30 [facility] Comment on above: Performed By: #### L 506.1001, L101.9900, L501.6710, L500.3400, L509.1000, L100.0100, L501.1105 #### [facility] [address] [place], [address] Globulin (S) [Mass/Vol] 2.3 g/dL Normal 2.2-4.2 [facility] Comment on above: Performed By: #### L 506.1001, L101.9900, L501.6710, L500.3400, L509.1000, L100.0100, L501.1105 #### [facility] [address] [place], [address] T PROT 6.4 g/dL Normal 5.9-8.4 [facility] Comment on above: Performed By: #### L 506.1001, L101.9900, L501.6710, L500.3400, L509.1000, L100.0100, L501.1105 #### [facility] [address] [place], [address] Lymphocytes Auto (Unsp spec) [#/Vol]Ordered By: STEVEN BOLES on 11-07-2024 Lymphocytes (Bld) [#/Vol] 1.84 10*3/uL 0.83-4.51 [facility] Lymphocytes/100 WBC Auto (Un sp spec)Ordered By: STEVEN BOLES on 11-07-2024 Lymphocytes/100 WBC (Bld) 27.3 % 19-41 [facility] MCV (mean corpuscular volume ) determinationOrdered By: STEVEN BOLES on 11-07-2024 MCV (RBC) [Entitic vol] 97.3 fL 81-99 [facility] Mean corpuscular hemoglobin (MCH) determinationOrdered By: STEVEN BOLES on 11-07-2024 MCH (RBC) [Entitic mass] 31.6 pg 27.0-32.0 [facility] Mean corpuscular hemoglobin concentration (MCHC) determinationOrdered By: STEVEN BOLES on 11-07-2024 MCHC (RBC) [Mass/Vol] 32.5 g/dL 32-36 [facility] Mean platelet volume determi nationOrdered By: STEVEN BOLES on 11-07-2024 Platelet mean volume (Bld) [Entitic vol] 9.5 fL 6.2-12.0 [facility] Monocyte percentageOrdered B y: STEVEN BOLES on 11-07-2024 Monocytes/100 WBC (Bld) 7.4 % 0-10 [facility] Neutrophil percentageOrdered By: STEVEN BOLES on 11-07-2024 Neutrophils/100 WBC (Bld) 62.1 % 47-70 [facility] Nucleated red blood cell per centageOrdered By: STEVEN BOLES on 11-07-2024 Nucleated RBC/100 WBC (Bld) [Ratio] 0 % 0-5 [facility] Platelet countOrdered By: ME KEYONA BOLES on 11-07-2024 Platelets (Bld) [#/Vol] 318 10*3/uL 150-450 [facility] RBC Auto (Bld) [#/Vol]Ordere d By: STEVEN BOLES on 11-07-2024 RBC (Bld) [#/Vol] 3.76 10*6/uL Low 4.2-5.4 [facility] Serum Creatinine AND GFRon 0 11-07-2024 Creatinine [Mass/Vol] 0.80 mg/dL Normal 0.70-1.20 [facility] Comment on above: Performed By: #### L 506.1001, L101.9900, L501.6710, L500.3400, L509.1000, L100.0100, L501.1105 #### [facility] [address] [place], [place], [address] GFR/1.73 sq M.predicted among non-blacks MDRD (S/P/Bld) [Vol rate/Area] 95 mL/min/{1.73_m2} Normal >60 [facility] Comment on above: Result Comment: mL/m in/1.73m2 CKD-EPI Creatinine Equation (2020) Performed By: #### L 506.1001, L101.9900, L501.6710, L500.3400, L509.1000, L100.0100, L501.1105 #### [facility] [address] [place], [place], [id number] Serum creatinine measurement (mass/volume)Ordered By: STEVEN BOLES on 11-07-2024 Creatinine [Mass/Vol] 0.80 mg/dL 0.70-1.20 [facility] Serum globulin measurementOr dered By: STEVEN BOLES on 11-07-2024 Globulin (S) [Mass/Vol] 2.3 g/dL 2.2-4.2 [facility] Serum or plasma C reactive p rotein measurement (mass/volume)Ordered By: STEVEN BOLES on 11-07-2024 CRP [Mass/Vol] 7.96 mg/L High 0.0-3.0 [facility] Serum or plasma alanine zuñiga otransferase (ALT) measurementOrdered By: STEVEN BOLES on 11-07-2024 ALT [Catalytic activity/Vol] 18 U/L <35 [facility] Serum or plasma albumin sancho urement (mass/volume)Ordered By: STEVEN BOLES on 11-07-2024 Albumin [Mass/Vol] 4.1 g/dL 3.5-5.0 [facility] Serum or plasma alkaline nallely sphatase measurementOrdered By: STEVEN BOLES on 11-07-2024 ALP [Catalytic activity/Vol] 63 U/L 35-104 [facility] T4 freeOrdered By: Cali Lou on 11-07-2024 Free T4 [Mass/Vol] 1.00 ng/dL 0.76-1.46 [facility] TSH DL <= 0.005 mIU/L QnOrde red By: Cali Lou on 11-07-2024 Thyroid Stimulating Hormone (TSH) 0.729 uIU/mL 0.300-4.200 [facility] TSH Qn 0.729 uIU/mL 0.300-4.200 [facility] Total proteinOrdered By: IRENE BOLES on 11-07-2024 Protein [Mass/Vol] 6.4 g/dL 5.9-8.4 [facility] White blood cell (WBC) count Ordered By: STEVEN BOLES on 11-07-2024 WBC (Bld) [#/Vol] 6.7 10*3/uL 4.4-11.0 [facility] Internal Medicine Office Vis aisha 10-23-2024 Internal Medicine Office Visit [facility] [address] [place] [address] [place] [address] OFFICE VISIT Date of Service: 10/23/24 MR#: [id number] Acct: [id number] Name: ALMA ADEN Rep #: [id number] : 1980 Provider: Dr. 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 Normal [facility] Hemoglobin A1con 10-10-2024 HbA1c (Bld) [Mass fraction] 5.9 % Normal <=5.6 [facility] Comment on above: Performed By: #### L 501.9985 #### [facility] [address] [place], [place], [address] Hemoglobin A1c percentageOrd ered By: Wyatt Marcelo on 10-10-2024 HbA1c (Bld) [Mass fraction] 5.9 % >5.7 [facility] Urgent Care Visit Reporton 0 08-31-2024 Urgent Care Visit Report [facility] [address], [address] [place], [place] [address] OFFICE VISIT Date of Service: 08/31/24 MR#: [id number] Acct: [id number] Name: ALMA ADEN Rep #: [id number] : 1980 Provider: ZAFAR Tan Age/Sex: 44/F [place] [facility] Status: Signed Intake Vital Signs 05/10/24 10:59 [...] at home: Yes 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 Normal [facility] Absolute neutrophil countOrd ered By: STEVEN BOLES on 07-23-2024 Neutrophils (Bld) [#/Vol] 3.3 10*3/uL 2.0-7.7 [facility] Basophil percentageOrdered B y: STEVEN BOLES on 07-23-2024 Basophils/100 WBC (Bld) 0.5 % 0-1 [facility] Bilirubin directOrdered By: STEVEN BOLES on 07-23-2024 Bilirubin.direct [Mass/Vol] 0.10 mg/dL 0.00-0.30 [facility] Bilirubin, totalOrdered By: STEVEN BOLES on 07-23-2024 Bilirubin [Mass/Vol] 0.40 mg/dL 0.20-1.00 [facility] Comment on above: For patients on eltr ombopag therapy, use of Dimension [place] TBIL is not recommended. C-reactive protein measureme nt by high sensitivity methodOrdered By: STEVEN BOLES on 07-23-2024 C-Reactive Protein Extended Range 4.63 mg/L High 0.0-3.0 [facility] Comment on above: C-Reactive Protein ( CRP) provides useful information for thediagnosis, therapy and monitoring of inflammatory processesand associated diseases. For the evaluation of Relative Riskfor Cardiovascular Disease, a High Sensitivity CRP (HSCRP)should be ordered. CBC W/Diff, Automatedon Absolute Lymph 1.81 X10 3/uL Normal 0.83-4.51 [facility] Comment on above: Performed By: #### L 501.9985 #### [facility] [address] [place], [address] Absolute Neut 3.3 X10 3/uL Normal 2.0-7.7 [facility] Comment on above: Performed By: #### L 501.9985 #### [facility] [address] [place], [address] Basophils/100 WBC (Bld) 0.5 % Normal 0-1 [facility] Comment on above: Performed By: #### L 501.9985 #### [facility] [address] [place], [address] Eosinophils/100 WBC (Bld) 1.8 % Normal 0-5 [facility] Comment on above: Performed By: #### L 501.9985 #### [facility] [address] [place], [address] Erythrocyte distribution width (RBC) [Ratio] 13.4 % Normal 11.6-14.6 [facility] Comment on above: Performed By: #### L 501.9985 #### [facility] [address] [place], [address] Hematocrit (Bld) [Volume fraction] 35.1 % Low 37-47 [facility] Comment on above: Performed By: #### L 501.9985 #### [facility] [address] [place], [address] Hemoglobin (Bld) [Mass/Vol] 11.5 g/dL Low 12.0-15.0 [facility] Comment on above: Performed By: #### L 501.9985 #### [facility] [address] [place], [address] IG% 0.200 Normal 0.0-0.9 [facility] Comment on above: Result Comment: IG% - Immature Granulocytes (promyelocytes, myelocytes and metamyelocytes) > 1% indicates that a LEFT SHIFT is Present. Performed By: #### L 501.9985 #### [facility] [address] [place], [address] Lymphocytes/100 WBC (Bld) 31.9 % Normal 19-41 [facility] Comment on above: Performed By: #### L 501.9985 #### [facility] [address] [place], [address] MCH (RBC) [Entitic mass] 31.4 pg Normal 27.0-32.0 [facility] Comment on above: Performed By: #### L 501.9985 #### [facility] [address] [place], [address] MCHC (RBC) [Mass/Vol] 32.8 g/dL Normal 32-36 [facility] Comment on above: Performed By: #### L 501.85 #### [facility] [address] [place], [address] MCV (RBC) [Entitic vol] 95.9 fL Normal 81-99 [facility] Comment on above: Performed By: #### L 501.85 #### [facility] [address] [place], [address] Monocytes/100 WBC (Bld) 8.1 % Normal 0-10 [facility] Comment on above: Performed By: #### L .9985 #### [facility] [address] [place], [address] Neutrophils/100 WBC (Bld) 57.5 % Normal 47-70 [facility] Comment on above: Performed By: #### L 501.85 #### [facility] [address] [place], [address] Nucleated RBC (Bld) [#/Vol] 0 10*3/uL Normal 0-5 [facility] Comment on above: Performed By: #### L .9985 #### [facility] [address] [place], [address] Platelet mean volume (Bld) [Entitic vol] 9.6 fL Normal 6.2-12.0 [facility] Comment on above: Performed By: #### L 501.85 #### [facility] [address] [place], [address] Platelets (Bld) [#/Vol] 329 10*3/uL Normal 150-450 [facility] Comment on above: Performed By: #### L .85 #### [facility] [address] [place], [address] RBC (Bld) [#/Vol] 3.66 10*6/uL Low 4.2-5.4 [facility] Comment on above: Performed By: #### L 501.9985 #### [facility] [address] [place], [address] RDW SD 47.3 fl High 35.1-43.9 [facility] Comment on above: Performed By: #### L 501.9985 #### [facility] [address] [place], [address] WBC (Bld) [#/Vol] 5.7 10*3/uL Normal 4.4-11.0 [facility] Comment on above: Performed By: #### L 501.9985 #### [facility] [address] [place], [address] CRPon 07-23-2024 C-REACTIVE PROT 4.63 mg/L High 0.0-3.0 [facility] [facility] Comment on above: Result Comment: C-Re active Protein (CRP) provides useful information for the diagnosis, therapy and monitoring of inflammatory processes and associated diseases. For the evaluation of Relative Risk for Cardiovascular Disease, a High Sensitivity CRP (HSCRP) should be ordered. Performed By: #### L 501.9985 #### [facility] [address] [place], [address] Eosinophil percentageOrdered By: STEVEN BOLES on 07-23-2024 Eosinophils/100 WBC (Bld) 1.8 % 0-5 [facility] Erythrocyte Sed Rateon 07-23 SED RATE 5 mm/hr Normal 0-30 [facility] Comment on above: Performed By: #### L 501.9985 #### [facility] [address] [place], [address] Erythrocyte distribution wid th ratioOrdered By: STEVEN BOLES on 07-23-2024 Erythrocyte distribution width (RBC) [Ratio] 13.4 % 11.6-14.6 [facility] Erythrocyte distribution wid th standard deviationOrdered By: STEVEN BOLES on 07-23-2024 Erythrocyte distribution width (RBC) [Entitic vol] 47.3 fL High 35.1-43.9 [facility] Erythrocyte sedimentation ra teOrdered By: STEVEN BOLES on 07-23-2024 ESR (Bld) [Velocity] 5 mm/h 0-30 [facility] Estimated glomerular filtrat ion rate (GFR) AmericanOrdered By: STEVEN BOLES on 07-23-2024 Estimated GFR (MDRD) Amer 103 mL/min >60 [facility] Comment on above: GFR Calc Glomerular filtration rate ( GFR) estimationOrdered By: STEVEN BOLES on 07-23-2024 Estimated GFR (MDRD) Non-Af Amer 85 mL/min >60 [facility] Comment on above: Non- GFR Calc Hematocrit Auto (Bld) [Volum e fraction]Ordered By: STEVEN BOLES on 07-23-2024 Hematocrit (Bld) [Volume fraction] 35.1 % Low 37-47 [facility] Hemoglobin measurementOrdere d By: STEVEN BOLES on 07-23-2024 Hemoglobin (Bld) [Mass/Vol] 11.5 g/dL Low 12.0-15.0 [facility] Immature granulocytes/100 WB C Auto (Bld)Ordered By: STEVEN BOLES on 07-23-2024 Immature granulocytes/100 WBC (Bld) 0.200 % 0.0-0.9 [facility] Comment on above: IG% - Immature Granu locytes (promyelocytes, myelocytes and metamyelocytes) > 1% indicates that a LEFT SHIFT is Present. Laboratory - Chemistry and C hemistry - challengeOrdered By: STEVNE BOLES on 07-23-2024 AST [Catalytic activity/Vol] 23 U/L 15-37 [facility] Liver Profileon 07-23-2024 Albumin [Mass/Vol] 3.8 g/dL Normal 3.2-5.0 [facility] Comment on above: Performed By: #### L 173.9981 #### [facility] [address] [place], [address] ALK P 61 U/L Normal 45-117 [facility] Comment on above: Performed By: #### L 501.9985 #### [facility] [address] [place], [address] ALT [Catalytic activity/Vol] 28 U/L Normal 13-56 [facility] Comment on above: Performed By: #### L 501.9985 #### [facility] [address] [place], [address] AST [Catalytic activity/Vol] 23 U/L Normal 15-37 [facility] Comment on above: Performed By: #### L 501.9985 #### [facility] [address] [place], [address] Bilirubin [Mass/Vol] 0.40 mg/dL Normal 0.20-1.00 [facility] Comment on above: Result Comment: For patients on eltrombopag therapy, use of Dimension [place] TBIL is not recommended. Performed By: #### L 501.9985 #### [facility] [address] [place], [address] Bilirubin.direct [Mass/Vol] 0.10 mg/dL Normal 0.00-0.30 [facility] Comment on above: Performed By: #### L 501.9985 #### [facility] [address] [place], [address] Globulin (S) [Mass/Vol] 3.7 g/dL Normal 2.2-4.2 [facility] Comment on above: Performed By: #### L 501.9985 #### [facility] [address] [place], [address] T PROT 7.5 g/dL Normal 6.4-8.2 [facility] Comment on above: Performed By: #### L 501.9985 #### [facility] [place], [address] Lymphocytes Auto (Unsp spec) [#/Vol]Ordered By: STEVEN BOLES on 07-23-2024 Lymphocytes (Bld) [#/Vol] 1.81 10*3/uL 0.83-4.51 [facility] Lymphocytes/100 WBC Auto (Un sp spec)Ordered By: STEVEN BOLES on 07-23-2024 Lymphocytes/100 WBC (Bld) 31.9 % 19-41 [facility] MCV (mean corpuscular volume ) determinationOrdered By: STEVEN BOLES on 07-23-2024 MCV (RBC) [Entitic vol] 95.9 fL 81-99 [facility] Mean corpuscular hemoglobin (MCH) determinationOrdered By: STEVEN BOLES on 07-23-2024 MCH (RBC) [Entitic mass] 31.4 pg 27.0-32.0 [facility] Mean corpuscular hemoglobin concentration (MCHC) determinationOrdered By: STEVEN BOLES on 07-23-2024 MCHC (RBC) [Mass/Vol] 32.8 g/dL 32-36 [facility] Mean platelet volume determi nationOrdered By: STEVEN BOLES on 07-23-2024 Platelet mean volume (Bld) [Entitic vol] 9.6 fL 6.2-12.0 [facility] Monocyte percentageOrdered B y: STEVEN BOLES on 07-23-2024 Monocytes/100 WBC (Bld) 8.1 % 0-10 [facility] Neutrophil percentageOrdered By: STEVEN BOLES on 07-23-2024 Neutrophils/100 WBC (Bld) 57.5 % 47-70 [facility] Nucleated red blood cell per centageOrdered By: STEVEN BOLES on 07-23-2024 Nucleated RBC/100 WBC (Bld) [Ratio] 0 % 0-5 [facility] Platelet countOrdered By: ME KEYONA BOLES on 07-23-2024 Platelets (Bld) [#/Vol] 329 10*3/uL 150-450 [facility] RBC Auto (Bld) [#/Vol]Ordere d By: STEVEN BOLES on 07-23-2024 RBC (Bld) [#/Vol] 3.66 10*6/uL Low 4.2-5.4 [facility] Serum Creatinine AND GFRon 0 07-23-2024 Creatinine [Mass/Vol] 0.79 mg/dL Normal 0.55-1.02 [facility] Comment on above: Result Comment: The validity of the calculated GFR GFRAA in patients over 70 years has not been determined. Clinical correlation is essential. Performed By: #### L 501.9985 #### [facility] [address] [place], [place], [address] EST GFR - AA 103 mL/min Normal >60 [facility] Comment on above: Result Comment: Afri can [place] GFR Calc Performed By: #### L 501.9985 #### [facility] [address] [place], [address] GFR/1.73 sq M.predicted among non-blacks MDRD (S/P/Bld) [Vol rate/Area] 85 mL/min/{1.73_m2} Normal >60 [facility] Comment on above: Result Comment: Non- GFR Calc Performed By: #### L 501.9985 #### [facility] [address] [place], [place], [address] Serum globulin measurementOr dered By: STEVEN BOLES on 07-23-2024 Globulin (S) [Mass/Vol] 3.7 g/dL 2.2-4.2 [facility] Serum or plasma alanine zuñiga otransferase (ALT) measurementOrdered By: STEVEN BOLES on 07-23-2024 ALT [Catalytic activity/Vol] 28 U/L 13-56 [facility] Serum or plasma albumin sancho urement (mass/volume)Ordered By: STEVEN BOLES on 07-23-2024 Albumin [Mass/Vol] 3.8 g/dL 3.2-5.0 [facility] Serum or plasma alkaline nallely sphatase measurementOrdered By: STEVEN BOLES on 07-23-2024 ALP [Catalytic activity/Vol] 61 U/L 45-117 [facility] Serum or plasma creatinine m easurement (mass/volume)Ordered By: STEVEN BOLES on 07-23-2024 Creatinine [Mass/Vol] 0.79 mg/dL 0.55-1.02 [facility] Comment on above: The validity of the calculated GFR & GFRAA in patients over 70 years has not been determined. Clinical correlation is essential. Total proteinOrdered By: IRENE HANSEL BOLES on 07-23-2024 Protein [Mass/Vol] 7.5 g/dL 6.4-8.2 [facility] White blood cell (WBC) count Ordered By: STEVEN BOLES on 07-23-2024 WBC (Bld) [#/Vol] 5.7 10*3/uL 4.4-11.0 [facility] Inital Evaluation (1) - PTon 07-03-2024 Inital Evaluation (1) - PT [facility] [place] [address] / REHABILITATION SERVICES INITIAL EVALUATION MR#: [id number] Acct: [id number] Name: ALMA ADEN Rep #: [id number] : 1980 43 From: Anatoliy Boudreaux DPT Referring Dr.: ISIDRA Avendano Status: REG RCR Insurance: [employer] [facility] SELF PAY INSURANCE Patient's Visit [...] and To (more content not included)... Normal [facility] Spine Lumbar (Routine)on Spine Lumbar (Routine) [facility] [address] [place] [address] Spine Lumbar (Routine) MR#: [id number] Acct: [id number] Name: ALMA ADEN Rep #: [id number] : 1980 F 43 From: Abad Juraez MD PCP: Dr. Wyatt Marcelo MD Status: REG CLI Study: Spine Lumbar (Routine) Date of Exam: 05/27/24 Exam# [id number] Ordering Dr: Nimco Gonzalez [id number] STUDY: MRI LUMBAR SPINE WITHOUT CONTRAST REASON [...] CC: ISIDRA Avendano; Dr. Wyatt Marcelo MD Billing Control Clerk: Signed Normal [facility] L/S Spine Bending Flex/[place] 05-10-2024 L/S Spine Bending Flex/Ext [facility] [address] [place], [place] [address] L/S Spine Bending Flex/Ext MR#: [id number] Acct: [id number] Name: ALMA ADEN Rep #: [id number] : 1980 F 43 From: Devin Davis DO PCP: Dr. Wyatt Marcelo MD Status: REG CLI Study: L/S Spine Bending Flex/Ext Date of Exam: 05/10 Exam# [id number] Ordering Dr: Nimco Gonzalez [id number] STUDY: X-RAY - LUMBAR SPINE REASON FOR [...] CC: ISIDRA Avendano; Dr. 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 Part of today???s visit was documented by [...] on getti (more content not included)... Normal [facility] L/S Spine Min 4 Viewson 04-17 L/S Spine Min 4 Views [facility] [address] [place], [place] [address] L/S Spine Min 4 Views MR#: [id number] Acct: [id number] Name: ALMA ADEN Rep #: [id number] : 1980 F 43 From: Juan R Rasmussen PCP: Dr. Wyatt Marcelo MD Status: REG CLI Study: L/S Spine Min 4 Views Date of Exam: 05/09/24 Exam# [id number] Ordering Dr: Nimco Gonzalez [id number] EXAM: XR LUMBOSACRAL SPINE, 4 OR 5 [...] CC: ISIDRA Avendano; Dr. Wyatt Marcelo MD Billing Control Clerk: Signed Normal [facility] Dexa Bone Density Studyon Dexa Bone Density Study [facility] [address] [place] [address] Dexa Bone Density Study MR#: [id number] Acct: [id number] Name: ALMA ADEN Rep #: [id number] : 1980 F 43 From: Sukhdeep mosqueda MD PCP: Dr. Wyatt Marcelo MD Status: REG CL Study: Dexa Bone Density Study Date of Exam: 04/30/24 Exam# [id number] Ordering Dr: Estrellita Coleman PROGRAM SERVICES ASSISTANT-C [id number] STUDY: DUAL ENERGY X-RAY ABSORPTIOMETRY / DXA [...] 13:32 EDT Reading Location ID and State: [address] [place] [address] , Service support , CC: ZAFAR Coleman; Dr. Wyatt Marcelo MD Billing Control Clerk: Signed Normal [facility] CBC, Employeeon 04-25-2024 Absolute Lymph 1.71 X10 3/uL Normal 0.83-4.51 [facility] Comment on above: Performed By: #### L 501.9985 #### [facility] [address] [place], [address] Absolute Neut 2.6 X10 3/uL Normal 2.0-7.7 [facility] Comment on above: Performed By: #### L 501.9985 #### [facility] [address] [place], [address] Basophils/100 WBC (Bld) 1.1 % High 0-1 [facility] Comment on above: Performed By: #### L 501.9985 #### [facility] [address] [place], [address] Eosinophils/100 WBC (Bld) 1.7 % Normal 0-5 [facility] Comment on above: Performed By: #### L 501.9985 #### [facility] [address] [place], [address] Erythrocyte distribution width (RBC) [Ratio] 12.0 % Normal 11.6-14.6 [facility] Comment on above: Performed By: #### L 501.9985 #### [facility] [address] [place], [address] Hematocrit (Bld) [Volume fraction] 37.0 % Normal 37-47 [facility] Comment on above: Performed By: #### L 501.9985 #### [facility] [address] [place], [address] Hemoglobin (Bld) [Mass/Vol] 12.0 g/dL Normal 12.0-15.0 [facility] Comment on above: Performed By: #### L 501.9985 #### [facility] [address] [place], [address] Lymphocytes/100 WBC (Bld) 36.5 % Normal 19-41 [facility] Comment on above: Performed By: #### L 501.9985 #### [facility] [address] [place], [address] MCH (RBC) [Entitic mass] 31.3 pg Normal 27.0-32.0 [facility] Comment on above: Performed By: #### L 501.9985 #### [facility] [address] [place], [address] MCHC (RBC) [Mass/Vol] 32.4 g/dL Normal 32-36 [facility] Comment on above: Performed By: #### L 501.9985 #### [facility] [address] [place], [address] MCV (RBC) [Entitic vol] 96.6 fL Normal 81-99 [facility] Comment on above: Performed By: #### L 501.9985 #### [facility] [address] [place], [address] Monocytes/100 WBC (Bld) 6.0 % Normal 0-10 [facility] Comment on above: Performed By: #### L 501.9985 #### [facility] [address] [place], [address] Neutrophils/100 WBC (Bld) 54.3 % Normal 47-70 [facility] Comment on above: Performed By: #### L 501.9985 #### [facility] [address] [place], [address] NRBC # 0.00 10 3/uL Normal 0-5 [facility] Comment on above: Performed By: #### L 501.9985 #### [facility] [address] [place], [address] Nucleated RBC (Bld) [#/Vol] 0 10*3/uL Normal 0-5 [facility] Comment on above: Performed By: #### L 501.9985 #### [facility] [address] [place], [address] Platelet mean volume (Bld) [Entitic vol] 9.2 fL Normal 6.2-12.0 [facility] Comment on above: Performed By: #### L 501.9985 #### [facility] [address] [place], [address] Platelets (Bld) [#/Vol] 308 10*3/uL Normal 150-450 [facility] Comment on above: Performed By: #### L 501.9985 #### [facility] [address] [place], [address] RBC (Bld) [#/Vol] 3.83 10*6/uL Low 4.2-5.4 [facility] Comment on above: Performed By: #### L 501.9985 #### [facility] [address] [place], [address] RDW SD 42.5 fl Normal 35.1-43.9 [facility] Comment on above: Performed By: #### L 501.9985 #### [facility] [address] [place], [address] WBC (Bld) [#/Vol] 4.7 10*3/uL Normal 4.4-11.0 [facility] Comment on above: Performed By: #### L 501.9985 #### [facility] [address] [place], [address] Employee [employer] 4 Albumin [Mass/Vol] 3.7 g/dL Normal 3.2-5.0 [facility] Comment on above: Performed By: #### L 501.9985 #### [facility] [address] [place], [address] Albumin/Globulin [Mass ratio] 1.0 {ratio} Normal 0.9-2.4 [facility] Comment on above: Performed By: #### L 501.9985 #### [facility] [address] [place], [address] ALK P 59 U/L Normal 45-117 [facility] Comment on above: Performed By: #### L 501.9985 #### [facility] [address] [place], [address] ALT [Catalytic activity/Vol] 19 U/L Normal 13-56 [facility] Comment on above: Performed By: #### L 501.9985 #### [facility] [address] [place], [address] AST [Catalytic activity/Vol] 13 U/L Low 15-37 [facility] Comment on above: Performed By: #### L 501.9985 #### [facility] [address] [place], [address] Bilirubin [Mass/Vol] 0.30 mg/dL Normal 0.20-1.00 [facility] Comment on above: Result Comment: For patients on eltrombopag therapy, use of Dimension [place] TBIL is not recommended. Performed By: #### L 501.9985 #### [facility] [address] [place], [address] Bilirubin.direct [Mass/Vol] 0.08 mg/dL Normal 0.00-0.30 [facility] Comment on above: Performed By: #### L 501.9985 #### [facility] [address] [place], [address] BUN/CRE 16.3 RATIO Normal 10-20 [facility] Comment on above: Performed By: #### L 501.9985 #### [facility] [address] [place], [address] CA,Total 9.9 mg/dL Normal 8.5-10.1 [facility] Comment on above: Performed By: #### L 501.9985 #### [facility] [address] [place], [address] Chloride [Moles/Vol] 107 mmol/L Normal 98-107 [facility] Comment on above: Performed By: #### L 501.9985 #### [facility] [address] [place], [address] CHOL:HDL 3.50 Normal [facility] Comment on above: Performed By: #### L 501.9985 #### [facility] [address] [place], [address] Cholesterol [Mass/Vol] 227 mg/dL High 200 [facility] Comment on above: Result Comment: <200 mg/dL Desirable 200-240 mg/dL Borderline >240 mg/dL High Risk Performed By: #### L 501.9985 #### [facility] [address] [place], [address] Cholesterol in HDL [Mass/Vol] 65 mg/dL Normal [facility] Comment on above: Result Comment: The drugs N-Acetylcysteine and Metamizole may falsely depress this assay. Reference Range HDL <40 mg/dL Low HDL Cholesterol HDL >or= 60 mg/dL High HDL Cholesterol Performed By: #### L 501.9985 #### [facility] [address] [place], [address] Cholesterol in LDL [Mass/Vol] 136 mg/dL High 0-130 [facility] Comment on above: Performed By: #### L 501.9985 #### [facility] [address] [place], [address] Cholesterol in VLDL [Mass/Vol] 26 mg/dL Normal 5-40 [facility] Comment on above: Performed By: #### L 501.9985 #### [facility] [address] [place], [address] CO2 [Moles/Vol] 25.0 mmol/L Normal 21.0-32.0 [facility] Comment on above: Performed By: #### L 501.9985 #### [facility] [address] [place], [address] Creatinine [Mass/Vol] 0.74 mg/dL Normal 0.55-1.02 [facility] Comment on above: Result Comment: The validity of the calculated GFR GFRAA in patients over 70 years has not been determined. Clinical correlation is essential. Performed By: #### L 501.9985 #### [facility] [address] [place], [address] EST GFR - AA 112 mL/min Normal >60 [facility] Comment on above: Result Comment: Afri can [place] GFR Calc Performed By: #### L 501.9985 #### [facility] [address] [place], [address] GAP 7 Normal 5-15 [facility] Comment on above: Performed By: #### L 501.9985 #### [facility] [address] [place], [address] GFR/1.73 sq M.predicted among non-blacks MDRD (S/P/Bld) [Vol rate/Area] 92 mL/min/{1.73_m2} Normal >60 [facility] Comment on above: Result Comment: Non- GFR Calc Performed By: #### L 501.9985 #### [facility] [address] [place], [address] Globulin (S) [Mass/Vol] 3.7 g/dL Normal 2.2-4.2 [facility] Comment on above: Performed By: #### L 501.9985 #### [facility] [address] [place], [address] Glucose [Mass/Vol] 115 mg/dL High 74-106 [facility] Comment on above: Result Comment: Fast ing Glucose result from 100 to 125 mg/dL suggests IMPAIRED HOMEOSTASIS per A.D.A. criteria. Performed By: #### L 501.9985 #### [facility] [address] [place], [address] LDH 219 U/L Normal 84-246 [facility] Comment on above: Performed By: #### L 501.9985 #### [facility] [address] [place], [address] Phosphate [Mass/Vol] 3.0 mg/dL Normal 2.5-4.9 [facility] Comment on above: Performed By: #### L 501.9985 #### [facility] [address] [place], [address] Potassium [Moles/Vol] 4.2 mmol/L Normal 3.5-5.1 [facility] Comment on above: Performed By: #### L 501.9985 #### [facility] [address] [place], [address] Sodium [Moles/Vol] 139 mmol/L Normal 136-145 [facility] Comment on above: Performed By: #### L 501.9985 #### [facility] [address] [place], [address] T PROT 7.4 g/dL Normal 6.4-8.2 [facility] Comment on above: Performed By: #### L 501.9985 #### [facility] [address] [place], [address] Triglyceride [Mass/Vol] 131 mg/dL Normal [facility] Comment on above: Result Comment: The drugs N-Acetylcysteine and Metamizole may falsely depress this assay. Serum Triglycerides Reference Interval Normal <150 mg/dL Borderline high 150 - 199 mg/dL High 200 - 499 mg/dL Very High > or = 500 mg/dL Performed By: #### L 501.9985 #### [facility] [address] [place], [address] Urea nitrogen [Mass/Vol] 12 mg/dL Normal 7-18 [facility] Comment on above: Performed By: #### L 501.9985 #### [facility] [address] [place], [address] URIC 5.5 mg/dL Normal 2.6-6.0 [facility] Comment on above: Result Comment: The drugs N-Acetylcysteine and Metamizole may falsely depress this assay. Performed By: #### L 501.9985 #### [facility] [address] [place], [place], [address] Internal Medicine Office Vis itojamee 04-25-2024 Internal Medicine Office Visit [facility] [address] [place] [address] [place] [address] OFFICE VISIT Date of Service: 04/25/24 MR#: [id number] Acct: [id number] Name: ALMA ADEN Rep #: [id number] : 1980 Provider: Dr. Wyatt mills MD Age/Sex: 43/F [place] [facility] [place]: Signed Intake Vital Signs 12/15/23 08:47 03/20/24 09:41 04/25/24 17:02 Height 5 ft 8 in 5 ft 8 in BP 130/84 H Blood Pressure Location Lt brachial Position Sitting Respiration 16 Pulse 78 Pulse Source Monitor Temp 97 F L Temp Source Temporal Pulse Oximetry (%) 99 Oxygen Delivery Method room air Intake Visit Reasons: YEARLY Chief Complaint: annual It Service Delivery Manager Required: No Is patient in pain?: [...] done 5.9% Needs losartan and xanax refilled. 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 No acute concerns at this time. Following up with [facility] and due to her history of hyperparathyroidism, bone density scan was ordered. Positive family history of osteoporosis in her mother. Also history of chronic intermittent steroid use. No recent fractures. A1c done recently at 5.9 up from 5.8. Had been on compounded semaglutide in which she lost 30 pounds however due to cost discontinued. Continues to follow-up with rheumatology at the [facility] (more content not included)... Normal [facility] Urinalysis, Employeeon 04-25 BILIRUBIN URINE Negative Normal Negative [facility] Comment on above: Order Comment: CLEAN CATCH Performed By: #### L 501.9985 #### [facility] [address] [place], [address] Clarity (U) Clear Normal Clear [facility] Comment on above: Order Comment: CLEAN CATCH Performed By: #### L 501.9985 #### [facility] [address] [place], [address] Color (U) Yellow Normal Yellow [facility] Comment on above: Order Comment: CLEAN CATCH Performed By: #### L 501.9985 #### [facility] [address] [place], [address] GLUCOSE, UR Normal Normal Normal [facility] Comment on above: Order Comment: CLEAN CATCH Performed By: #### L 501.9985 #### [facility] [address] [place], [address] KETONE UR Negative Normal Negative [facility] Comment on above: Order Comment: CLEAN CATCH Performed By: #### L 501.9985 #### [facility] [address] [place], [address] LEUK ESTERASE Negative Normal Negative [facility] Comment on above: Order Comment: CLEAN CATCH Performed By: #### L 501.9985 #### [facility] [address] [place], [address] Nitrite Ql (U) Negative Normal Negative [facility] Comment on above: Order Comment: CLEAN CATCH Performed By: #### L 501.9985 #### [facility] [address] [place], [address] OCCULT BLOOD-UR Negative Normal Negative [facility] Comment on above: Order Comment: CLEAN CATCH Performed By: #### L 501.9985 #### [facility] [address] [place], [address] pH UR 6.5 Normal 5.0 - 8.0 [facility] Comment on above: Order Comment: CLEAN CATCH Performed By: #### L 501.9985 #### [facility] [address] [place], [address] PROT DIPSTX Negative Normal Negative [facility] Comment on above: Order Comment: CLEAN CATCH Performed By: #### L 501.9985 #### [facility] [address] [place], [address] SP.GR. DIPSTX 1.010 Normal 1.002-1.030 [facility] Comment on above: Order Comment: CLEAN CATCH Performed By: #### L 501.9985 #### [facility] [address] [place], [address] UROBILI Normal Normal Normal [facility] Comment on above: Order Comment: CLEAN CATCH Performed By: #### L 501.9985 #### [facility] [address] [place], [address] SCRN MAMM (CAD)W/CHRISTOPHER BILATo n 04-02-2024 SCRN MAMM (CAD)W/CHRISTOPHER BILAT [facility] [address] [place] [address] SCRN MAMM (CAD)W/CHRISTOPHER BILAT MR#: [id number] Acct: [id number] Name: ALMA ADEN Rep #: [id number] : 1980 F 43 From: Sukhdeep mosqueda MD PCP: Dr. Wyatt Marcelo MD Status: [facility] Study: SCRN MAMM (CAD)W/CHRISTOPHER BILAT Date of Exam: 03/17 02/06 Exam# [id number] Ordering Dr: Estrellita Coleman PROGRAM SERVICES ASSISTANT-C [id number] MAMMOGRAPHY - BILATERAL SCREENING REASON FOR EXAM: [...] delay biopsy of a clinically suspicious abnormality. [id number] Electronically Signed: Sukhdeep Manzano MD at 9:37 EDT Reading Location ID and State: [facility] / [place] , Service support , CC: ZAFAR Coleman; Dr. Wyatt Marcelo MD Billing Control Clerk: Signed Normal [facility] CBC W/Diff, Automatedon 03-17 Absolute Lymph 2.40 X10 3/uL Normal 0.83-4.51 [facility] Comment on above: Performed By: #### L 506.1001, L101.9900, L501.6710, L500.3400, L509.1000, L100.0100, L501.1105 #### [facility] [address] [place], [address] Absolute Neut 2.7 X10 3/uL Normal 2.0-7.7 [facility] Comment on above: Performed By: #### L 506.1001, L101.9900, L501.6710, L500.3400, L509.1000, L100.0100, L501.1105 #### [facility] [address] [place], [address] Basophils/100 WBC (Bld) 0.7 % Normal 0-1 [facility] Comment on above: Performed By: #### L 506.1001, L101.9900, L501.6710, L500.3400, L509.1000, L100.0100, L501.1105 #### [facility] [address] [place], [address] Eosinophils/100 WBC (Bld) 2.4 % Normal 0-5 [facility] Comment on above: Performed By: #### L 506.1001, L101.9900, L501.6710, L500.3400, L509.1000, L100.0100, L501.1105 #### [facility] [address] [place], [address] Erythrocyte distribution width (RBC) [Ratio] 12.2 % Normal 11.6-14.6 [facility] Comment on above: Performed By: #### L 506.1001, L101.9900, L501.6710, L500.3400, L509.1000, L100.0100, L501.1105 #### [facility] [address] [place], [address] Hematocrit (Bld) [Volume fraction] 38.3 % Normal 37-47 [facility] Comment on above: Performed By: #### L 506.1001, L101.9900, L501.6710, L500.3400, L509.1000, L100.0100, L501.1105 #### [facility] [address] [place], [address] Hemoglobin (Bld) [Mass/Vol] 12.2 g/dL Normal 12.0-15.0 [facility] Comment on above: Performed By: #### L 506.1001, L101.9900, L501.6710, L500.3400, L509.1000, L100.0100, L501.1105 #### [facility] [address] [place], [address] IG% 0.200 Normal 0.0-0.9 [facility] Comment on above: Result Comment: IG% - Immature Granulocytes (promyelocytes, myelocytes and metamyelocytes) > 1% indicates that a LEFT SHIFT is Present. Performed By: #### L 506.1001, L101.9900, L501.6710, L500.3400, L509.1000, L100.0100, L501.1105 #### [facility] [address] [place], [address] Lymphocytes/100 WBC (Bld) 41.8 % High 19-41 [facility] Comment on above: Performed By: #### L 506.1001, L101.9900, L501.6710, L500.3400, L509.1000, L100.0100, L501.1105 #### [facility] [address] [place], [address] MCH (RBC) [Entitic mass] 31.3 pg Normal 27.0-32.0 [facility] Comment on above: Performed By: #### L 506.1001, L101.9900, L501.6710, L500.3400, L509.1000, L100.0100, L501.1105 #### [facility] [address] [place], [address] MCHC (RBC) [Mass/Vol] 31.9 g/dL Low 32-36 [facility] Comment on above: Performed By: #### L 506.1001, L101.9900, L501.6710, L500.3400, L509.1000, L100.0100, L501.1105 #### [facility] [address] [place], [address] MCV (RBC) [Entitic vol] 98.2 fL Normal 81-99 [facility] Comment on above: Performed By: #### L 506.1001, L101.9900, L501.6710, L500.3400, L509.1000, L100.0100, L501.1105 #### [facility] [address] [place], [address] Monocytes/100 WBC (Bld) 7.8 % Normal 0-10 [facility] Comment on above: Performed By: #### L 506.1001, L101.9900, L501.6710, L500.3400, L509.1000, L100.0100, L501.1105 #### [facility] [address] [place], [address] Neutrophils/100 WBC (Bld) 47.1 % Normal 47-70 [facility] Comment on above: Performed By: #### L 506.1001, L101.9900, L501.6710, L500.3400, L509.1000, L100.0100, L501.1105 #### [facility] [address] [place], [address] Nucleated RBC (Bld) [#/Vol] 0 10*3/uL Normal 0-5 [facility] Comment on above: Performed By: #### L 506.1001, L101.9900, L501.6710, L500.3400, L509.1000, L100.0100, L501.1105 #### [facility] [address] [place], [address] Platelet mean volume (Bld) [Entitic vol] 9.7 fL Normal 6.2-12.0 [facility] Comment on above: Performed By: #### L 506.1001, L101.9900, L501.6710, L500.3400, L509.1000, L100.0100, L501.1105 #### [facility] [address] [place], [address] Platelets (Bld) [#/Vol] 398 10*3/uL Normal 150-450 [facility] Comment on above: Performed By: #### L 506.1001, L101.9900, L501.6710, L500.3400, L509.1000, L100.0100, L501.1105 #### [facility] [address] [place], [address] RBC (Bld) [#/Vol] 3.90 10*6/uL Low 4.2-5.4 [facility] Comment on above: Performed By: #### L 506.1001, L101.9900, L501.6710, L500.3400, L509.1000, L100.0100, L501.1105 #### [facility] [address] [place], [address] RDW SD 44.2 fl High 35.1-43.9 [facility] Comment on above: Performed By: #### L 506.1001, L101.9900, L501.6710, L500.3400, L509.1000, L100.0100, L501.1105 #### [facility] [address] [place], [address] WBC (Bld) [#/Vol] 5.7 10*3/uL Normal 4.4-11.0 [facility] Comment on above: Performed By: #### L 506.1001, L101.9900, L501.6710, L500.3400, L509.1000, L100.0100, L501.1105 #### [facility] [address] [place], [address] CRPon 04-01-2024 C-REACTIVE PROT 5.25 mg/L High 0.0-3.0 [facility] Comment on above: Result Comment: C-Re active Protein (CRP) provides useful information for the diagnosis, therapy and monitoring of inflammatory processes and associated diseases. For the evaluation of Relative Risk for Cardiovascular Disease, a High Sensitivity CRP (HSCRP) should be ordered. Performed By: #### L 506.1001, L101.9900, L501.6710, L500.3400, L509.1000, L100.0100, L501.1105 #### [facility] [address] [place], [address] Erythrocyte Sed Rateon 04-01 SED RATE 15 mm/hr Normal 0-30 [facility] Comment on above: Performed By: #### L 501.9985 #### [facility] [address] [place], [address] Liver Profileon 04-01-2024 Albumin [Mass/Vol] 3.7 g/dL Normal 3.2-5.0 [facility] Comment on above: Performed By: #### L 506.1001, L101.9900, L501.6710, L500.3400, L509.1000, L100.0100, L501.1105 #### [facility] [address] [place], [address] ALK P 59 U/L Normal 45-117 [facility] Comment on above: Performed By: #### L 506.1001, L101.9900, L501.6710, L500.3400, L509.1000, L100.0100, L501.1105 #### [facility] [address] [place], [address] ALT [Catalytic activity/Vol] 22 U/L Normal 13-56 [facility] Comment on above: Performed By: #### L 506.1001, L101.9900, L501.6710, L500.3400, L509.1000, L100.0100, L501.1105 #### [facility] [address] [place], [address] AST [Catalytic activity/Vol] 13 U/L Low 15-37 [facility] Comment on above: Performed By: #### L 506.1001, L101.9900, L501.6710, L500.3400, L509.1000, L100.0100, L501.1105 #### [facility] [address] [place], [address] Bilirubin [Mass/Vol] 0.40 mg/dL Normal 0.20-1.00 [facility] Comment on above: Result Comment: For patients on eltrombopag therapy, use of Dimension [place] TBIL is not recommended. Performed By: #### L 506.1001, L101.9900, L501.6710, L500.3400, L509.1000, L100.0100, L501.1105 #### [facility] [address] [place], [address] Bilirubin.direct [Mass/Vol] 0.08 mg/dL Normal 0.00-0.30 [facility] Comment on above: Performed By: #### L 506.1001, L101.9900, L501.6710, L500.3400, L509.1000, L100.0100, L501.1105 #### [facility] [address] [place], [address] Globulin (S) [Mass/Vol] 3.8 g/dL Normal 2.2-4.2 [facility] Comment on above: Performed By: #### L 506.1001, L101.9900, L501.6710, L500.3400, L509.1000, L100.0100, L501.1105 #### [facility] [address] [place], [address] T PROT 7.5 g/dL Normal 6.4-8.2 [facility] Comment on above: Performed By: #### L 506.1001, L101.9900, L501.6710, L500.3400, L509.1000, L100.0100, L501.1105 #### [facility] [address] [place], [address] Serum Creatinine AND GFRon 0 - Creatinine [Mass/Vol] 0.85 mg/dL Normal 0.55-1.02 [facility] Comment on above: Result Comment: The validity of the calculated GFR GFRAA in patients over 70 years has not been determined. Clinical correlation is essential. Performed By: #### L 506.1001, L101.9900, L501.6710, L500.3400, L509.1000, L100.0100, L501.1105 #### [facility] [address] [place], [address] EST GFR - AA 95 mL/min Normal >60 [facility] Comment on above: Result Comment: Afri can [place] GFR Calc Performed By: #### L 506.1001, L101.9900, L501.6710, L500.3400, L509.1000, L100.0100, L501.1105 #### [facility] [address] [place], [address] GFR/1.73 sq M.predicted among non-blacks MDRD (S/P/Bld) [Vol rate/Area] 79 mL/min/{1.73_m2} Normal >60 [facility] Comment on above: Result Comment: Non- GFR Calc Performed By: #### L 506.1001, L101.9900, L501.6710, L500.3400, L509.1000, L100.0100, L501.1105 #### [facility] [address] [place], [address] Business Unit Leader Office Visit Reporton 03-20-2024 Business Unit Leader Office Visit Report [facility] [address], [address] [place] [address] OFFICE VISIT Date of Service: 03/20/24 MR#: [id number] Acct: [id number] Name: ALMA ADEN Rep #: [id number] : 1980 Provider: ZAFAR Rothman Age/Sex: 43/F [place] [facility] [place]: [place] Intake Vital Signs 01/18/24 12:05 03/20/24 09:35 03/20/24 09:41 Height 5 ft 8 in 5 ft 8 in 5 ft 8 in Weight: 372 lb BMI 56.5 BP 130/90 H Intake Visit Reasons: Annual ([facility]) Chief Complaint: annual Is patient in pain?: [...] : No : No Control Method: total [facility] Medical History Borderline type 2 diabetes mellitus [...] at home: Yes 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 Normal [facility] Basophil percentageOrdered B y: Liliana Nguyenrenetta on 10-17-2023 Hemoglobin (Bld) [Mass/Vol] 13.1 g/dL 12.0-15.0 [facility] WBC (Bld) [#/Vol] 6.5 10*3/uL 4.4-11.0 [facility] Determination of erythrocyte mean corpuscular volume (MCV)Ordered By: Liliana Bangura on 10-17-2023 MCV (RBC) [Entitic vol] 94.8 fL 81-99 [facility] Erythrocyte distribution wid th ratioOrdered By: Liliana Bangura on 10-17-2023 Erythrocyte distribution width (RBC) [Ratio] 12.5 % 11.6-14.6 [facility] Erythrocyte distribution wid th standard deviationOrdered By: Liliana Bangura on 10-17-2023 Erythrocyte distribution width (RBC) [Entitic vol] 43.4 fL 35.1-43.9 [facility] Hematocrit Auto (Bld) [Volum e fraction]Ordered By: Liliana Bangura on 10-17-2023 Hematocrit (Bld) [Volume fraction] 40.5 % 37-47 [facility] Iron measurement (mass/mass) Ordered By: Liliana Bangura on 10-17-2023 Iron (Unsp spec) [Mass/Mass] 69 ug/dL 50-170 [facility] Laboratory - Chemistry and C hemistry - challengeOrdered By: Liliana Bangura on 10-17-2023 Cobalamin (Vitamin B12) [Mass/Vol] 890 pg/mL 211-911 [facility] Ferritin [Mass/Vol] 72 ng/mL 8-252 [facility] Laboratory - Hematology and Cell countsOrdered By: Liliana Bangura on 10-17-2023 MCH (RBC) [Entitic mass] 30.7 pg 27.0-32.0 [facility] MCHC (RBC) [Mass/Vol] 32.3 g/dL 32-36 [facility] Platelet mean volume (Bld) [Entitic vol] 9.2 fL 6.2-12.0 [facility] Platelets (Bld) [#/Vol] 336 10*3/uL 150-450 [facility] No Panel InformationOrdered By: Liliana Bangura on 10-17-2023 Total Iron Binding Capacity 394 ug/dL 250-450 [facility] RBC Auto (Bld) [#/Vol]Ordere d By: Liliana Bangura on 10-17-2023 RBC (Bld) [#/Vol] 4.27 10*6/uL 4.2-5.4 [facility] No Panel InformationOrdered By: STEVEN BOLES on 10-12-2023 Hepatitis B Surface Antigen Non-Reactive Nonreactive [facility] Hepatitis C Antibody Non-Reactive Nonreactive [facility] Comment on above: Non Reactive: < 0.8 Equivocal: >/= 0.8 to < 1.0 Reactive: >/= 1.0The [facility] requires that a reactive/equivocal HCV antibody result be sent out for confirmation. HCV Quant by PCR testing. Qualitative QuantiFERON-TB g old in tube testOrdered By: STEVEN BOLES on 10-12-2023 M. tuberculosis tuberculin stim IFN-g Ql (Bld) 0.07 IU/mL . [facility] Serum hepatitis B virus core antibody detectionOrdered By: STEVEN BOLES on 10-12-2023 HBV core Ab Ql (S) Negative Negative [facility] Comment on above: Performed at: [facility] [employer] Director: Levi Covarrubias PhD, Phone: [phone] Thin prep Papanicolaou smear with manual screeningOrdered By: STEVEN BOLES on 10-12-2023 Thin prep Papanicolaou smear with manual screening Comment . [facility] Comment on above: QuantiFERON-TB Gold Plus [...] smear with manual screening 0.06 IU/mL . [facility] Thin prep Papanicolaou smear with manual screening > 10.00 IU/mL . [facility] Thin prep Papanicolaou smear with manual screening Negative Negative [facility] Comment on above: No response to [...] Auto (Unsp spec) [#/Vol] 3.56 10*3/uL 0.83-4.51 [facility] Automated lymphocyte count a s percentage of total leukocyteson 08-17-2023 Lymphocytes/100 WBC Auto (Unsp spec) 32.5 % 19-41 [facility] Basophil percentageon 2023 Basophils/100 WBC (Bld) 0.7 % 0-1 [facility] Bilirubin [Mass/Vol] 0.20 mg/dL 0.20-1.00 [facility] Comment on above: For patients on eltr ombopag therapy, use of Dimension [place] TBIL is not recommended. Eosinophils/100 WBC (Bld) 1.3 % 0-5 [facility] Hemoglobin (Bld) [Mass/Vol] 11.5 g/dL 12.0-15.0 [facility] Monocytes/100 WBC (Bld) 6.8 % 0-10 [facility] Neutrophils (Bld) [#/Vol] 6.4 10*3/uL 2.0-7.7 [facility] Neutrophils/100 WBC (Bld) 58.2 % 47-70 [facility] Protein [Mass/Vol] 7.4 g/dL 6.4-8.2 [facility] WBC (Bld) [#/Vol] 11.0 10*3/uL 4.4-11.0 [facility] Determination of erythrocyte mean corpuscular volume (MCV)on 08-17-2023 MCV (RBC) [Entitic vol] 97.3 fL 81-99 [facility] Direct bilirubinon Bilirubin.direct [Mass/Vol] 0.08 mg/dL 0.00-0.30 [facility] Erythrocyte distribution wid th ratioon 08-17-2023 Erythrocyte distribution width (RBC) [Ratio] 13.1 % 11.6-14.6 [facility] Erythrocyte distribution wid th standard deviationon 08-17-2023 Erythrocyte distribution width (RBC) [Entitic vol] 46.6 fL 35.1-43.9 [facility] Erythrocyte sedimentation ra avel 08-17-2023 ESR (Bld) [Velocity] 11 mm/h 0-30 [facility] Hematocrit Auto (Bld) [Volum e fraction]on 08-17-2023 Hematocrit (Bld) [Volume fraction] 36.5 % 37-47 [facility] Immature granulocytes/100 WB C Auto (Bld)on 08-17-2023 Immature granulocytes/100 WBC (Bld) 0.500 % 0.0-0.9 [facility] Comment on above: IG% - Immature Granu locytes (promyelocytes, myelocytes and metamyelocytes) > 1% indicates that a LEFT SHIFT is Present. Laboratory - Chemistry and C hemistry - challengeon 08-17-2023 ALP [Catalytic activity/Vol] 73 U/L 45-117 [facility] ALT [Catalytic activity/Vol] 46 U/L 13-56 [facility] Globulin (S) [Mass/Vol] 3.8 g/dL 2.2-4.2 [facility] Laboratory - Hematology and Cell countson 08-17-2023 MCH (RBC) [Entitic mass] 30.7 pg 27.0-32.0 [facility] MCHC (RBC) [Mass/Vol] 31.5 g/dL 32-36 [facility] Nucleated RBC/100 WBC (Bld) [Ratio] 0 % 0-5 [facility] Platelets (Bld) [#/Vol] 306 10*3/uL 150-450 [facility] No Panel Informationon 08-17 C-Reactive Protein Extended Range 4.60 mg/L 0.0-3.0 [facility] Comment on above: C-Reactive Protein ( CRP) provides useful information for thediagnosis, therapy and monitoring of inflammatory processesand associated diseases. For the evaluation of Relative Riskfor Cardiovascular Disease, a High Sensitivity CRP (HSCRP)should be ordered. Estimated GFR (MDRD) Amer 91 mL/min >60 [facility] Comment on above: GFR Calc Estimated GFR (MDRD) Non-Af Amer 76 mL/min >60 [facility] Comment on above: Non- GFR Calc Platelet mean volume Cedric-Ec ker (Bld) [Entitic vol]on 08-17-2023 Platelet mean volume (Bld) [Entitic vol] 8.7 fL 6.2-12.0 [facility] RBC Auto (Bld) [#/Vol]on RBC (Bld) [#/Vol] 3.75 10*6/uL 4.2-5.4 [facility] Serum or plasma creatinine m easurement (mass/volume)on 08-17-2023 Creatinine [Mass/Vol] 0.88 mg/dL 0.55-1.02 [facility] Comment on above: The validity of the calculated GFR & GFRAA in patients over 70 years has not been determined. Clinical correlation is essential. Thin prep Papanicolaou smear with manual screeningon 08-17-2023 Thin prep Papanicolaou smear with manual screening 3.6 g/dL 3.2-5.0 [facility] [facility] Thin prep Papanicolaou smear with manual screening 17 U/L 15-37 [facility] Absolute lymphocyte countOrd ered By: Cali Lou on 06-16-2023 Lymphocytes Auto (Unsp spec) [#/Vol] 1.93 10*3/uL 0.83-4.51 [facility] Basophil percentageOrdered B y: Cali Lou on 06-16-2023 Basophils/100 WBC (Bld) 0.5 % 0-1 [facility] Bilirubin [Mass/Vol] 0.30 mg/dL 0.20-1.00 [facility] Comment on above: For patients on eltr ombopag therapy, use of Dimension [place] TBIL is not recommended. Chloride [Moles/Vol] 105 mmol/L 98-107 [facility] Eosinophils/100 WBC (Bld) 2.2 % 0-5 [facility] Glucose [Mass/Vol] 80 mg/dL 74-106 [facility] Neutrophils (Bld) [#/Vol] 2.9 10*3/uL 2.0-7.7 [facility] Neutrophils/100 WBC (Bld) 52.2 % 47-70 [facility] Potassium [Moles/Vol] 4.0 mmol/L 3.5-5.1 [facility] Protein [Mass/Vol] 7.2 g/dL 6.4-8.2 [facility] Sodium [Moles/Vol] 136 mmol/L 136-145 [facility] WBC (Bld) [#/Vol] 5.6 10*3/uL 4.4-11.0 [facility] Blood erythrocytes count (nu mber/volume)Ordered By: Cali Lou on 06-16-2023 RBC (Bld) [#/Vol] 3.91 10*6/uL 4.2-5.4 [facility] Blood hemoglobin measurement (mass/volume)Ordered By: Cali Lou on 06-16-2023 Hemoglobin (Bld) [Mass/Vol] 12.1 g/dL 12.0-15.0 [facility] Blood lymphocytes/100 leukoc ytesOrdered By: Cali Lou on 06-16-2023 Lymphocytes/100 WBC (Bld) 34.6 % 19-41 [facility] Blood monocytes/100 leukocyt esOrdered By: Cali Lou on 06-16-2023 Monocytes/100 WBC (Bld) 10.1 % 0-10 [facility] Blood platelet mean volumeOr dered By: Cali Lou on 06-16-2023 Platelet mean volume (Bld) [Entitic vol] 9.3 fL 6.2-12.0 [facility] Determination of erythrocyte mean corpuscular volume (MCV)Ordered By: Cali Lou on 06-16-2023 MCV (RBC) [Entitic vol] 96.2 fL 81-99 [facility] Direct bilirubinOrdered By: Cali Lou on 06-16-2023 Bilirubin.direct [Mass/Vol] 0.08 mg/dL 0.00-0.30 [facility] Hematocrit Auto (Bld) [Volum e fraction]Ordered By: Cali Lou on 06-16-2023 Hematocrit (Bld) [Volume fraction] 37.6 % 37-47 [facility] Laboratory - Chemistry and C hemistry - challengeOrdered By: Cali Lou on 06-16-2023 ALP [Catalytic activity/Vol] 54 U/L 45-117 [facility] ALT [Catalytic activity/Vol] 33 U/L 13-56 [facility] CO2 [Moles/Vol] 27.0 mmol/L 21.0-32.0 [facility] Globulin (S) [Mass/Vol] 3.5 g/dL 2.2-4.2 [facility] Urea nitrogen/Creatinine [Mass ratio] 13.2 mg/mg 10-20 [facility] Laboratory - Hematology and Cell countsOrdered By: Cali Lou on 06-16-2023 Erythrocyte distribution width (RBC) [Entitic vol] 46.5 fL 35.1-43.9 [facility] Erythrocyte distribution width (RBC) [Ratio] 13.2 % 11.6-14.6 [facility] Immature granulocytes/100 WBC (Bld) 0.400 % 0.0-0.9 [facility] Comment on above: IG% - Immature Granu locytes (promyelocytes, myelocytes and metamyelocytes) > 1% indicates that a LEFT SHIFT is Present. MCH (RBC) [Entitic mass] 30.9 pg 27.0-32.0 [facility] Nucleated RBC/100 WBC (Bld) [Ratio] 0 % 0-5 [facility] MCHC Auto (RBC) [Mass/Vol]Or dered By: Cali Lou on 06-16-2023 MCHC (RBC) [Mass/Vol] 32.2 g/dL 32-36 [facility] No Panel InformationOrdered By: Cali Lou on 06-16-2023 Estimated GFR (MDRD) Amer 108 mL/min >60 [facility] Comment on above: GFR Calc Estimated GFR (MDRD) Non-Af Amer 89 mL/min >60 [facility] Comment on above: Non- GFR Calc Parathyroid Hormone (Intact) 113.6 pg/mL 18.4-80.1 [facility] Thyroid Stimulating Hormone (TSH) 1.93 uIU/mL 0.358-3.74 [facility] Vitamin D 25-Hydroxy 40.8 ng/mL [facility] Comment on above: Vitamin D 25(OH) Sta tus Range Deficiency <20 ng/mL (50nmol/L) Insufficiency 20 - 30 ng/mL (50 - 75 nmol/L) Sufficiency 30 - 100 ng/mL (75 - 250 nmol/L) Toxicity >100 ng/mL (>250 nmol/L) Platelets bldOrdered By: Nito oLu on 06-16-2023 Platelets (Bld) [#/Vol] 334 10*3/uL 150-450 [facility] Serum or plasma albumin sancho urement (mass/volume)Ordered By: Cali Lou on 06-16-2023 Albumin [Mass/Vol] 3.7 g/dL 3.2-5.0 [facility] Serum or plasma albumin/glob ulin mass ratioOrdered By: Cali Lou on 06-16-2023 Albumin/Globulin [Mass ratio] 1.1 {ratio} 0.9-2.4 [facility] Serum or plasma calcium sancho urement (mass/volume)Ordered By: Cali Lou on 06-16-2023 Calcium [Mass/Vol] 9.0 mg/dL 8.5-10.1 [facility] Serum or plasma creatinine m easurement (mass/volume)Ordered By: Cali Lou on 06-16-2023 Creatinine [Mass/Vol] 0.76 mg/dL 0.55-1.02 [facility] Comment on above: The validity of the calculated GFR & GFRAA in patients over 70 years has not been determined. Clinical correlation is essential. Serum or plasma urea nitroge n measurement (mass/volume)Ordered By: Cali Lou on 06-16-2023 Urea nitrogen [Mass/Vol] 10 mg/dL 7-18 [facility] Thin prep Papanicolaou smear with manual screeningOrdered By: Cali Lou on 06-16-2023 Thin prep Papanicolaou smear with manual screening 19 U/L 15-37 [facility] Thin prep Papanicolaou smear with manual screening 4 5-15 [facility] Whole blood hemoglobin A1c/t otal hemoglobin ratio (mass fraction)Ordered By: Wyatt Marcelo on 06-16-2023 HbA1c (Bld) [Mass fraction] 5.8 % 3.8-5.6 [facility] Comment on above: Normal < 5.7 % Predi abetic 5.7 - 6.4 % Diabetic >or= 6.5 % Please note range changes. Absolute lymphocyte countOrd ered By: Kane Fisher on 06-11-2023 Lymphocytes Auto (Unsp spec) [#/Vol] 0.54 10*3/uL 0.83-4.51 [facility] Basophil percentageOrdered B y: Kane Fsiher on 06-11-2023 Basophils/100 WBC (Bld) 0.3 % 0-1 [facility] Chloride [Moles/Vol] 104 mmol/L 98-107 [facility] Eosinophils/100 WBC (Bld) 1.0 % 0-5 [facility] Glucose [Mass/Vol] 105 mg/dL 74-106 [facility] Comment on above: Fasting Glucose resu lt from 100 to 125 mg/dL suggests IMPAIRED HOMEOSTASIS per A.D.A. criteria. Neutrophils (Bld) [#/Vol] 5.0 10*3/uL 2.0-7.7 [facility] Neutrophils/100 WBC (Bld) 83.2 % 47-70 [facility] Potassium [Moles/Vol] 4.1 mmol/L 3.5-5.1 [facility] Comment on above: Moderate Hemolysis, Result may be falsely increased. Sodium [Moles/Vol] 137 mmol/L 136-145 [facility] WBC (Bld) [#/Vol] 6.0 10*3/uL 4.4-11.0 [facility] Blood erythrocytes count (nu mber/volume)Ordered By: Kane Fisher on 06-11-2023 RBC (Bld) [#/Vol] 4.23 10*6/uL 4.2-5.4 [facility] Blood hemoglobin measurement (mass/volume)Ordered By: Kane Fisher on 06-11-2023 Hemoglobin (Bld) [Mass/Vol] 13.1 g/dL 12.0-15.0 [facility] Blood lymphocytes/100 leukoc ytesOrdered By: Kane Fisher on 06-11-2023 Lymphocytes/100 WBC (Bld) 9.1 % 19-41 [facility] Blood manual differential co mment interpretation (narrative result)Ordered By: Kane Fisher on 06-11-2023 Manual differential comment Collin (Bld) [Interp] SCANNED [facility] Blood monocytes/100 leukocyt esOrdered By: Kane Fisher on 06-11-2023 Monocytes/100 WBC (Bld) 6.1 % 0-10 [facility] Blood platelet mean volumeOr dered By: Kane Fisher on 06-11-2023 Platelet mean volume (Bld) [Entitic vol] 9.7 fL 6.2-12.0 [facility] Determination of erythrocyte mean corpuscular volume (MCV)Ordered By: Kane Fisher on 06-11-2023 MCV (RBC) [Entitic vol] 95.5 fL 81-99 [facility] Hematocrit Auto (Bld) [Volum e fraction]Ordered By: Kane Fisher on 06-11-2023 Hematocrit (Bld) [Volume fraction] 40.4 % 37-47 [facility] Laboratory - Chemistry and C hemistry - challengeOrdered By: Kane Fisher on 06-11-2023 CO2 [Moles/Vol] 27.0 mmol/L 21.0-32.0 [facility] Urea nitrogen/Creatinine [Mass ratio] 23.1 mg/mg 10-20 [facility] Laboratory - Hematology and Cell countsOrdered By: Kane Fisher on 06-11-2023 Erythrocyte distribution width (RBC) [Entitic vol] 46.3 fL 35.1-43.9 [facility] Erythrocyte distribution width (RBC) [Ratio] 13.2 % 11.6-14.6 [facility] Immature granulocytes/100 WBC (Bld) 0.300 % 0.0-0.9 [facility] Comment on above: IG% - Immature Granu locytes (promyelocytes, myelocytes and metamyelocytes) > 1% indicates that a LEFT SHIFT is Present. MCH (RBC) [Entitic mass] 31.0 pg 27.0-32.0 [facility] Nucleated RBC/100 WBC (Bld) [Ratio] 0 % 0-5 [facility] MCHC Auto (RBC) [Mass/Vol]Or dered By: Kane Fisher on 06-11-2023 MCHC (RBC) [Mass/Vol] 32.4 g/dL 32-36 [facility] No Panel InformationOrdered By: Kane Fisher on 06-11-2023 Estimated Creatinine Clearance Calc 82.90 ml/min [facility] Estimated GFR (MDRD) Amer 88 mL/min >60 [facility] Comment on above: GFR Calc Estimated GFR (MDRD) Non-Af Amer 73 mL/min >60 [facility] Comment on above: Non- GFR Calc Platelets bldOrdered By: Jules Fisher on 06-11-2023 Platelets (Bld) [#/Vol] 253 10*3/uL 150-450 [facility] Serum or plasma calcium sancho urement (mass/volume)Ordered By: Kane Fisher on 06-11-2023 Calcium [Mass/Vol] 9.2 mg/dL 8.5-10.1 [facility] Serum or plasma creatinine m easurement (mass/volume)Ordered By: Kane Fisher on 06-11-2023 Creatinine [Mass/Vol] 0.91 mg/dL 0.55-1.02 [facility] Comment on above: The validity of the calculated GFR & GFRAA in patients over 70 years has not been determined. Clinical correlation is essential. Serum or plasma urea nitroge n measurement (mass/volume)Ordered By: Kane Fisher on 06-11-2023 Urea nitrogen [Mass/Vol] 21 mg/dL 7-18 [facility] Thin prep Papanicolaou smear with manual screeningOrdered By: Kane Fisher on 06-11-2023 Thin prep Papanicolaou smear with manual screening 6 5-15 [facility] Absolute lymphocyte countOrd ered By: HEALTH ASSESSMENT on 05-09-2023 Lymphocytes Auto (Unsp spec) [#/Vol] 2.17 10*3/uL 0.83-4.51 [facility] Absolute reticulocyte countO rdered By: HEALTH ASSESSMENT on 05-09-2023 Reticulocytes (Bld) [#/Vol] 0.00 10*3/uL 0-5 [facility] Basophil percentageOrdered B y: HEALTH ASSESSMENT on 05-09-2023 Basophil percentage 3.1 mg/dL 2.5-4.9 [facility] Bilirubin [Mass/Vol] 0.20 mg/dL 0.20-1.00 [facility] Comment on above: For patients on eltr ombopag therapy, use of Dimension [place] TBIL is not recommended. Chloride [Moles/Vol] 107 mmol/L 98-107 [facility] Cholesterol [Mass/Vol] 206 mg/dL <200 [facility] Comment on above: <200 mg/dL Desirable 200-240 mg/dL Borderline >240 mg/dL High Risk Glucose [Mass/Vol] 111 mg/dL 74-106 [facility] Comment on above: Fasting Glucose resu lt from 100 to 125 mg/dL suggests IMPAIRED HOMEOSTASIS per A.D.A. criteria. LDH [Catalytic activity/Vol] 206 U/L 84-246 [facility] Neutrophils (Bld) [#/Vol] 2.7 10*3/uL 2.0-7.7 [facility] Potassium [Moles/Vol] 4.0 mmol/L 3.5-5.1 [facility] Protein [Mass/Vol] 7.1 g/dL 6.4-8.2 [facility] Sodium [Moles/Vol] 139 mmol/L 136-145 [facility] Triglyceride [Mass/Vol] 108 mg/dL <199 [facility] Comment on above: The drugs N-Acetylcy steine and Metamizole may falsely depress this assay.Serum Triglycerides Reference Interval Normal <150 mg/dL Borderline high 150 - 199 mg/dL High 200 - 499 mg/dL Very High > or = 500 mg/dL WBC (Bld) [#/Vol] 5.4 10*3/uL 4.4-11.0 [facility] Bilirubin Test strip Ql (U)O rdered By: HEALTH ASSESSMENT on 05-09-2023 Bilirubin Ql (U) 1 mg/dL Negative [facility] Comment on above: COLOR OF URINE MAY A FFECT DIPSTICK RESULTS. Blood erythrocytes count (nu mber/volume)Ordered By: HEALTH ASSESSMENT on 05-09-2023 RBC (Bld) [#/Vol] 3.78 10*6/uL 4.2-5.4 [facility] Blood hemoglobin measurement (mass/volume)Ordered By: HEALTH ASSESSMENT on 05-09-2023 Hemoglobin (Bld) [Mass/Vol] 11.6 g/dL 12.0-15.0 [facility] Blood platelet mean volumeOr dered By: HEALTH ASSESSMENT on 05-09-2023 Platelet mean volume (Bld) [Entitic vol] 9.5 fL 6.2-12.0 [facility] Determination of erythrocyte mean corpuscular volume (MCV)Ordered By: HEALTH ASSESSMENT on 05-09-2023 MCV (RBC) [Entitic vol] 97.4 fL 81-99 [facility] Direct bilirubinOrdered By: HEALTH ASSESSMENT on 05-09-2023 Bilirubin.direct [Mass/Vol] 0.06 mg/dL 0.00-0.30 [facility] Hematocrit Auto (Bld) [Volum e fraction]Ordered By: HEALTH ASSESSMENT on 05-09-2023 Hematocrit (Bld) [Volume fraction] 36.8 % 37-47 [facility] Ketones Test strip Ql (U)Ord ered By: HEALTH ASSESSMENT on 05-09-2023 Ketones Ql (U) 5 mg/dl Negative [facility] Laboratory - Chemistry and C hemistry - challengeOrdered By: HEALTH ASSESSMENT on 05-09-2023 ALP [Catalytic activity/Vol] 63 U/L 45-117 [facility] ALT [Catalytic activity/Vol] 36 U/L 13-56 [facility] Cholesterol.total/Cho lesterol in HDL [Mass ratio] 3.60 {ratio} [facility] CO2 [Moles/Vol] 28.0 mmol/L 21.0-32.0 [facility] Globulin (S) [Mass/Vol] 3.6 g/dL 2.2-4.2 [facility] Urea nitrogen/Creatinine [Mass ratio] 15.9 mg/mg 10-20 [facility] Laboratory - Hematology and Cell countsOrdered By: HEALTH ASSESSMENT on 05-09-2023 Erythrocyte distribution width (RBC) [Entitic vol] 45.2 fL 35.1-43.9 [facility] Erythrocyte distribution width (RBC) [Ratio] 12.7 % 11.6-14.6 [facility] MCH (RBC) [Entitic mass] 30.7 pg 27.0-32.0 [facility] Nucleated RBC/100 WBC (Bld) [Ratio] 0 % 0-5 [facility] MCHC Auto (RBC) [Mass/Vol]Or dered By: HEALTH ASSESSMENT on 05-09-2023 MCHC (RBC) [Mass/Vol] 31.5 g/dL 32-36 [facility] Nitrite Test strip Ql (U)Ord ered By: HEALTH ASSESSMENT on 05-09-2023 Nitrite Ql (U) Negative Negative [facility] No Panel InformationOrdered By: HEALTH ASSESSMENT on 05-09-2023 Estimated GFR (MDRD) Amer 91 mL/min >60 [facility] Comment on above: GFR Calc Estimated GFR (MDRD) Non-Af Amer 76 mL/min >60 [facility] Comment on above: Non- GFR Calc Platelets bldOrdered By: MAR LT ASSESSMENT on 05-09-2023 Platelets (Bld) [#/Vol] 302 10*3/uL 150-450 [facility] Protein Test strip Ql (U)Ord ered By: HEALTH ASSESSMENT on 05-09-2023 Protein Ql (U) 30 mg/dl Negative [facility] Segmented neutrophils/100 WB C Auto (Bld)Ordered By: HEALTH ASSESSMENT on 05-09-2023 Segmented neutrophils/100 WBC (Bld) 48.7 % 47-70 [facility] Serum or plasma albumin sancho urement (mass/volume)Ordered By: HEALTH ASSESSMENT on 05-09-2023 Albumin [Mass/Vol] 3.5 g/dL 3.2-5.0 [facility] Serum or plasma albumin/glob ulin mass ratioOrdered By: HEALTH ASSESSMENT on 05-09-2023 Albumin/Globulin [Mass ratio] 1.0 {ratio} 0.9-2.4 [facility] Serum or plasma calcium sancho urement (mass/volume)Ordered By: HEALTH ASSESSMENT on 05-09-2023 Calcium [Mass/Vol] 9.5 mg/dL 8.5-10.1 [facility] Serum or plasma cholesterol in HDL measurement (mass/volume)Ordered By: HEALTH ASSESSMENT on 05-09-2023 Cholesterol in HDL [Mass/Vol] 57 mg/dL >40 [facility] Comment on above: The drugs N-Acetylcy steine and Metamizole may falsely depress this assay. Reference Range HDL <40 mg/dL Low HDL Cholesterol HDL >or= 60 mg/dL High HDL Cholesterol Serum or plasma cholesterol in VLDL measurement (mass/volume)Ordered By: HEALTH ASSESSMENT on 05-09-2023 Cholesterol in VLDL [Mass/Vol] 22 mg/dL 5-40 [facility] Serum or plasma creatinine m easurement (mass/volume)Ordered By: HEALTH ASSESSMENT on 05-09-2023 Creatinine [Mass/Vol] 0.88 mg/dL 0.55-1.02 [facility] Comment on above: The validity of the calculated GFR & GFRAA in patients over 70 years has not been determined. Clinical correlation is essential. Serum or plasma low density lipoprotein (LDL) cholesterol measurement (mass/volume)Ordered By: HEALTH ASSESSMENT on 05-09-2023 Cholesterol in LDL [Mass/Vol] 127 mg/dL 0-130 [facility] Serum or plasma urea nitroge n measurement (mass/volume)Ordered By: HEALTH ASSESSMENT on 05-09-2023 Urea nitrogen [Mass/Vol] 14 mg/dL 7-18 [facility] Serum or plasma uric acid me asurement (mass/volume)Ordered By: HEALTH ASSESSMENT on 05-09-2023 Urate [Mass/Vol] 5.7 mg/dL 2.6-6.0 [facility] Comment on above: The drugs N-Acetylcy steine and Metamizole may falsely depress this assay. Thin prep Papanicolaou smear with manual screeningOrdered By: HEALTH ASSESSMENT on 05-09-2023 Thin prep Papanicolaou smear with manual screening 24 U/L 15-37 [facility] Thin prep Papanicolaou smear with manual screening 4 5-15 [facility] Urine blood detectionOrdered By: HEALTH ASSESSMENT on 05-09-2023 RBC Ql (U) 10 /ul Negative [facility] Urine clarityOrdered By: [facility] ASS[facility] on 05-09-2023 Clarity (U) Sl. Cloudy Clear [facility] Urine color determinationOrd ered By: HEALTH ASSESSMENT on 05-09-2023 Color (U) Yellow Yellow [facility] Urine glucose detectionOrder ed By: HEALTH ASSESSMENT on 05-09-2023 Glucose Ql (U) Normal mg/dl Normal [facility] Urine leukocyte esterase det ection by dipstickOrdered By: HEALTH ASSESSMENT on 05-09-2023 Leukocyte esterase Test strip Ql (U) 25 /ul Negative [facility] Urine pHOrdered By: HEALTH A SSESSMENT on 05-09-2023 pH (U) 5.0 [pH] 5.0 - 8.0 [facility] Urine specific gravity measu rementOrdered By: HEALTH ASSESSMENT on 05-09-2023 Specific gravity (U) [Rel density] 1.025 1.002-1.030 [facility] Urobilinogen Auto test strip Ql (U)Ordered By: HEALTH ASSESSMENT on 05-09-2023 Urobilinogen Ql (U) 1 mg/dl Normal [facility] Absolute lymphocyte countOrd ered By: Gay Koenig on 04-26-2023 Lymphocytes Auto (Unsp spec) [#/Vol] 1.68 10*3/uL 0.83-4.51 [facility] Basophil percentageOrdered B y: Gay Koenig on 04-26-2023 Basophils/100 WBC (Bld) 0.9 % 0-1 [facility] Chloride [Moles/Vol] 106 mmol/L 98-107 [facility] Eosinophils/100 WBC (Bld) 2.9 % 0-5 [facility] Glucose [Mass/Vol] 104 mg/dL 74-106 [facility] Comment on above: Fasting Glucose resu lt from 100 to 125 mg/dL suggests IMPAIRED HOMEOSTASIS per A.D.A. criteria. Neutrophils (Bld) [#/Vol] 4.5 10*3/uL 2.0-7.7 [facility] Neutrophils/100 WBC (Bld) 64.9 % 47-70 [facility] Potassium [Moles/Vol] 4.1 mmol/L 3.5-5.1 [facility] Sodium [Moles/Vol] 136 mmol/L 136-145 [facility] WBC (Bld) [#/Vol] 6.9 10*3/uL 4.4-11.0 [facility] Blood erythrocytes count (nu mber/volume)Ordered By: Gay Koenig on 04-26-2023 RBC (Bld) [#/Vol] 4.04 10*6/uL 4.2-5.4 [facility] Blood hemoglobin measurement (mass/volume)Ordered By: Gay Koenig on 04-26-2023 Hemoglobin (Bld) [Mass/Vol] 12.6 g/dL 12.0-15.0 [facility] Blood lymphocytes/100 leukoc ytesOrdered By: Gay Koenig on 04-26-2023 Lymphocytes/100 WBC (Bld) 24.4 % 19-41 [facility] Blood monocytes/100 leukocyt esOrdered By: Gay Koenig on 04-26-2023 Monocytes/100 WBC (Bld) 6.8 % 0-10 [facility] Blood platelet mean volumeOr dered By: Gay Koenig on 04-26-2023 Platelet mean volume (Bld) [Entitic vol] 10.7 fL 6.2-12.0 [facility] Determination of erythrocyte mean corpuscular volume (MCV)Ordered By: Gay Koenig on 04-26-2023 MCV (RBC) [Entitic vol] 98.8 fL 81-99 [facility] Hematocrit Auto (Bld) [Volum e fraction]Ordered By: Gay Koenig on 04-26-2023 Hematocrit (Bld) [Volume fraction] 39.9 % 37-47 [facility] Laboratory - Chemistry and C hemistry - challengeOrdered By: Gay Koenig on 04-26-2023 CO2 [Moles/Vol] 25.0 mmol/L 21.0-32.0 [facility] Urea nitrogen/Creatinine [Mass ratio] 12.5 mg/mg 10-20 [facility] Laboratory - Hematology and Cell countsOrdered By: Gay Koenig on 04-26-2023 Erythrocyte distribution width (RBC) [Entitic vol] 45.2 fL 35.1-43.9 [facility] Erythrocyte distribution width (RBC) [Ratio] 12.5 % 11.6-14.6 [facility] Immature granulocytes/100 WBC (Bld) 0.100 % 0.0-0.9 [facility] Comment on above: IG% - Immature Granu locytes (promyelocytes, myelocytes and metamyelocytes) > 1% indicates that a LEFT SHIFT is Present. MCH (RBC) [Entitic mass] 31.2 pg 27.0-32.0 [facility] Nucleated RBC/100 WBC (Bld) [Ratio] 0 % 0-5 [facility] MCHC Auto (RBC) [Mass/Vol]Or dered By: Gay Koenig on 04-26-2023 MCHC (RBC) [Mass/Vol] 31.6 g/dL 32-36 [facility] No Panel InformationOrdered By: Gay Koenig on 04-26-2023 Estimated GFR (MDRD) Amer 91 mL/min >60 [facility] Comment on above: GFR Calc Estimated GFR (MDRD) Non-Af Amer 75 mL/min >60 [facility] Comment on above: Non- GFR Calc Troponin I High Sensitivity 4 pg/mL 3.0-54.0 [facility] Comment on above: Please Note: New Bia t Units and Gender Specific Reference Ranges. For more information see Policy Stat Procedure [place] High Sensitivity Troponin (TNIH) and attachments. Platelets bldOrdered By: Enio Koenig on 04-26-2023 Platelets (Bld) [#/Vol] 279 10*3/uL 150-450 [facility] Serum or plasma calcium sancho urement (mass/volume)Ordered By: Gay Koenig on 04-26-2023 Calcium [Mass/Vol] 10.3 mg/dL 8.5-10.1 [facility] Serum or plasma creatinine m easurement (mass/volume)Ordered By: Gay Koenig on 04-26-2023 Creatinine [Mass/Vol] 0.88 mg/dL 0.55-1.02 [facility] Comment on above: The validity of the calculated GFR & GFRAA in patients over 70 years has not been determined. Clinical correlation is essential. Serum or plasma urea nitroge n measurement (mass/volume)Ordered By: Gay Koenig on 04-26-2023 Urea nitrogen [Mass/Vol] 11 mg/dL 7-18 [facility] Thin prep Papanicolaou smear with manual screeningOrdered By: Gay Koenig on 04-26-2023 Thin prep Papanicolaou smear with manual screening 5 5-15 [facility] Erythrocyte sedimentation ra teOrdered By: STEVEN BOLES on 03-22-2023 ESR (Bld) [Velocity] 14 mm/h 0-30 [facility] Serum or plasma C reactive p rotein measurement (mass/volume)Ordered By: STEVEN BOLES on 03-22-2023 CRP [Mass/Vol] 9.19 mg/L 0.0-3.0 [facility] Comment on above: C-Reactive Protein ( CRP) provides useful information for thediagnosis, therapy and monitoring of inflammatory processesand associated diseases. For the evaluation of Relative Riskfor Cardiovascular Disease, a High Sensitivity CRP (HSCRP)should be ordered. Absolute lymphocyte countOrd ered By: STEVEN BOLES on 03-07-2023 Lymphocytes Auto (Unsp spec) [#/Vol] 2.41 10*3/uL 0.83-4.51 [facility] Basophil percentageOrdered B y: STEVEN BOLES on 03-07-2023 Basophils/100 WBC (Bld) 0.9 % 0-1 [facility] Bilirubin [Mass/Vol] 0.30 mg/dL 0.20-1.00 [facility] Comment on above: For patients on eltr ombopag therapy, use of [place] TBIL is not recommended. Eosinophils/100 WBC (Bld) 3.2 % 0-5 [facility] Neutrophils (Bld) [#/Vol] 3.7 10*3/uL 2.0-7.7 [facility] Neutrophils/100 WBC (Bld) 55.0 % 47-70 [facility] Protein [Mass/Vol] 7.7 g/dL 6.4-8.2 [facility] WBC (Bld) [#/Vol] 6.8 10*3/uL 4.4-11.0 [facility] Blood erythrocytes count (nu mber/volume)Ordered By: STEVEN BOLES on 03-07-2023 RBC (Bld) [#/Vol] 3.93 10*6/uL 4.2-5.4 [facility] Blood hemoglobin measurement (mass/volume)Ordered By: STEVEN BOLES on 03-07-2023 Hemoglobin (Bld) [Mass/Vol] 12.5 g/dL 12.0-15.0 [facility] Blood lymphocytes/100 leukoc ytesOrdered By: STEVEN BOLES on 03-07-2023 Lymphocytes/100 WBC (Bld) 35.4 % 19-41 [facility] Blood monocytes/100 leukocyt esOrdered By: STEVEN BOLES on 03-07-2023 Monocytes/100 WBC (Bld) 5.4 % 0-10 [facility] Blood platelet mean volumeOr dered By: STEVEN BOLES on 03-07-2023 Platelet mean volume (Bld) [Entitic vol] 9.3 fL 6.2-12.0 [facility] Determination of erythrocyte mean corpuscular volume (MCV)Ordered By: STEVEN BOLES on 03-07-2023 MCV (RBC) [Entitic vol] 98.5 fL 81-99 [facility] Direct bilirubinOrdered By: STEVEN BOLES on 03-07-2023 Bilirubin.direct [Mass/Vol] 0.09 mg/dL 0.00-0.30 [facility] Erythrocyte sedimentation ra teOrdered By: STEVEN BOLES on 03-07-2023 ESR (Bld) [Velocity] 19 mm/h 0-30 [facility] Hematocrit Auto (Bld) [Volum e fraction]Ordered By: STEVEN BOLES on 03-07-2023 Hematocrit (Bld) [Volume fraction] 38.7 % 37-47 [facility] Laboratory - Chemistry and C hemistry - challengeOrdered By: STEVEN BOLES on 03-07-2023 ALP [Catalytic activity/Vol] 69 U/L 45-117 [facility] ALT [Catalytic activity/Vol] 32 U/L 13-56 [facility] Globulin (S) [Mass/Vol] 3.8 g/dL 2.2-4.2 [facility] Laboratory - Hematology and Cell countsOrdered By: TSEVEN BOLES on 03-07-2023 Erythrocyte distribution width (RBC) [Entitic vol] 46.3 fL 35.1-43.9 [facility] Erythrocyte distribution width (RBC) [Ratio] 13.0 % 11.6-14.6 [facility] Immature granulocytes/100 WBC (Bld) 0.100 % 0.0-0.9 [facility] Comment on above: IG% - Immature Granu locytes (promyelocytes, myelocytes and metamyelocytes) > 1% indicates that a LEFT SHIFT is Present. MCH (RBC) [Entitic mass] 31.8 pg 27.0-32.0 [facility] Nucleated RBC/100 WBC (Bld) [Ratio] 0 % 0-5 [facility] MCHC Auto (RBC) [Mass/Vol]Or dered By: STEVEN BOLES on 03-07-2023 MCHC (RBC) [Mass/Vol] 32.3 g/dL 32-36 [facility] No Panel InformationOrdered By: STEVEN BOLES on 03-07-2023 Estimated GFR (MDRD) Amer 88 mL/min >60 [facility] Comment on above: GFR Calc Estimated GFR (MDRD) Non-Af Amer 73 mL/min >60 [facility] Comment on above: Non- GFR Calc Platelets bldOrdered By: IRENE BOLES on 03-07-2023 Platelets (Bld) [#/Vol] 326 10*3/uL 150-450 [facility] Serum or plasma C reactive p rotein measurement (mass/volume)Ordered By: STEVEN BOLES on 03-07-2023 CRP [Mass/Vol] 13.30 mg/L 0.0-3.0 [facility] Comment on above: C-Reactive Protein ( CRP) provides useful information for thediagnosis, therapy and monitoring of inflammatory processesand associated diseases. For the evaluation of Relative Riskfor Cardiovascular Disease, a High Sensitivity CRP (HSCRP)should be ordered. Serum or plasma albumin sancho urement (mass/volume)Ordered By: STEVEN BOLES on 03-07-2023 Albumin [Mass/Vol] 3.9 g/dL 3.2-5.0 [facility] Serum or plasma creatinine m easurement (mass/volume)Ordered By: STEVEN BOLES on 03-07-2023 Creatinine [Mass/Vol] 0.91 mg/dL 0.55-1.02 [facility] Comment on above: The validity of the calculated GFR & GFRAA in patients over 70 years has not been determined. Clinical correlation is essential. Thin prep Papanicolaou smear with manual screeningOrdered By: STEVEN BOLES on 03-07-2023 Thin prep Papanicolaou smear with manual screening 18 U/L 15-37 [facility] Basophil percentageOrdered B y: Cali Lou on 01-09-2023 Bilirubin [Mass/Vol] 0.30 mg/dL 0.20-1.00 [facility] Comment on above: For patients on eltr ombopag therapy, use of [place] TBIL is not recommended. Chloride [Moles/Vol] 106 mmol/L 98-107 [facility] Glucose [Mass/Vol] 90 mg/dL 74-106 [facility] Potassium [Moles/Vol] 4.1 mmol/L 3.5-5.1 [facility] Protein [Mass/Vol] 8.0 g/dL 6.4-8.2 [facility] Sodium [Moles/Vol] 138 mmol/L 136-145 [facility] Laboratory - Chemistry and C hemistry - challengeOrdered By: Cali Lou on 01-09-2023 ALP [Catalytic activity/Vol] 70 U/L 45-117 [facility] ALT [Catalytic activity/Vol] 23 U/L 13-56 [facility] CO2 [Moles/Vol] 25.0 mmol/L 21.0-32.0 [facility] Free T4 [Mass/Vol] 0.97 ng/dL 0.76-1.46 [facility] Globulin (S) [Mass/Vol] 4.1 g/dL 2.2-4.2 [facility] Urea nitrogen/Creatinine [Mass ratio] 19.8 mg/mg 10-20 [facility] No Panel InformationOrdered By: Cali Lou on 01-09-2023 Estimated GFR (MDRD) Amer 109 mL/min >60 [facility] Comment on above: GFR Calc Estimated GFR (MDRD) Non-Af Amer 90 mL/min >60 [facility] Comment on above: Non- GFR Calc Follicle Stimulating Hormone 19.8 mIU/mL [facility] Comment on above: NORMAL REFERENCE RAN BANNER FEMALE FOLLICULAR 2.3 - 12.6 mIU/mL MID-CYCLE PEAK 5.2 - 17.5 mIU/mL LUTEAL 1.7 - 12.9 mIU/mL POST-MENOPAUSAL ON MHT 5.9 - 72.8 mIU/mL NOT ON MHT 12.7 - 132.2 mlU/mL MALE 0.7 - 10.8 mIU/mL Luteinizing Hormone 10.0 mIU/mL [facility] Comment on above: NORMAL REFERENCE RAN GES FEMALE FOLLICULAR 1.9 - 26.2 mIU/mL MID-CYCLE PEAK 22.8 - 76.1 mIU/mL LUTEAL 0.6 - 16.6 mIU/mL POST-MENOPAUSAL ON MHT 1.1 - 52.4 mIU/mL NOT ON MHT 8.6 - 61.8 mIU/mL MALE 1.2 - 10.6 mIU/mL Parathyroid Hormone (Intact) 92.3 pg/mL 18.4-80.1 [facility] Thyroid Stimulating Hormone (TSH) 0.85 uIU/mL 0.358-3.74 [facility] Vitamin D 25-Hydroxy 47.0 ng/mL [facility] Comment on above: Vitamin D 25(OH) Sta tus Range Deficiency <20 ng/mL (50nmol/L) Insufficiency 20 - 30 ng/mL (50 - 75 nmol/L) Sufficiency 30 - 100 ng/mL (75 - 250 nmol/L) Toxicity >100 ng/mL (>250 nmol/L) Serum or plasma albumin sancho urement (mass/volume)Ordered By: Cali Lou on 01-09-2023 Albumin [Mass/Vol] 3.9 g/dL 3.2-5.0 [facility] Serum or plasma albumin/glob ulin mass ratioOrdered By: Cali Lou on 01-09-2023 Albumin/Globulin [Mass ratio] 1.0 {ratio} 0.9-2.4 [facility] Serum or plasma calcium sancho urement (mass/volume)Ordered By: Cali Lou on 01-09-2023 Calcium [Mass/Vol] 10.2 mg/dL 8.5-10.1 [facility] Serum or plasma creatinine m easurement (mass/volume)Ordered By: Cali Lou on 01-09-2023 Creatinine [Mass/Vol] 0.76 mg/dL 0.55-1.02 [facility] Comment on above: The validity of the calculated GFR & GFRAA in patients over 70 years has not been determined. Clinical correlation is essential. Serum or plasma estradiol (E 2) measurement (mass/volume)Ordered By: Cali Lou on 01-09-2023 E2 [Mass/Vol] 25.0 pg/mL [facility] Comment on above: NORMAL REFERENCE RAN [...] 01-09-2023 Urea nitrogen [Mass/Vol] 15 mg/dL 7-18 [facility] Thin prep Papanicolaou smear with manual screeningOrdered By: Cali Lou on 01-09-2023 Thin prep Papanicolaou smear with manual screening 13 U/L 15-37 [facility] Thin prep Papanicolaou smear with manual screening 7 5-15 [facility] Erythrocyte sedimentation ra teOrdered By: STEVEN BOLES on 01-03-2023 ESR (Bld) [Velocity] 10 mm/h 0-30 [facility] Serum or plasma C reactive p rotein measurement (mass/volume)Ordered By: STEVEN BOLES on 01-03-2023 CRP [Mass/Vol] 6.98 mg/L 0.0-3.0 [facility] Comment on above: C-Reactive Protein ( CRP) provides useful information for thediagnosis, therapy and monitoring of inflammatory processesand associated diseases. For the evaluation of Relative Riskfor Cardiovascular Disease, a High Sensitivity CRP (HSCRP)should be ordered. Absolute lymphocyte countOrd ered By: STEVEN BOLES on 12-14-2022 Lymphocytes Auto (Unsp spec) [#/Vol] 1.23 10*3/uL 0.83-4.51 [facility] Basophil percentageOrdered B y: STEVEN BOLES on 12-14-2022 Basophils/100 WBC (Bld) 0.6 % 0-1 [facility] Bilirubin [Mass/Vol] 0.30 mg/dL 0.20-1.00 [facility] Comment on above: For patients on eltr ombopag therapy, use of [place] TBIL is not recommended. Eosinophils/100 WBC (Bld) 0.7 % 0-5 [facility] Neutrophils (Bld) [#/Vol] 8.0 10*3/uL 2.0-7.7 [facility] Neutrophils/100 WBC (Bld) 82.4 % 47-70 [facility] Protein [Mass/Vol] 7.3 g/dL 6.4-8.2 [facility] WBC (Bld) [#/Vol] 9.7 10*3/uL 4.4-11.0 [facility] Blood erythrocytes count (nu mber/volume)Ordered By: STEVEN BOLES on 12-14-2022 RBC (Bld) [#/Vol] 3.98 10*6/uL 4.2-5.4 [facility] Blood hemoglobin measurement (mass/volume)Ordered By: STEVEN BOLES on 12-14-2022 Hemoglobin (Bld) [Mass/Vol] 12.4 g/dL 12.0-15.0 [facility] Blood lymphocytes/100 leukoc ytesOrdered By: STEVEN BOLES on 12-14-2022 Lymphocytes/100 WBC (Bld) 12.7 % 19-41 [facility] Blood monocytes/100 leukocyt esOrdered By: STEVEN BOLES on 12-14-2022 Monocytes/100 WBC (Bld) 3.2 % 0-10 [facility] Blood platelet mean volumeOr dered By: STEVEN BOLES on 12-14-2022 Platelet mean volume (Bld) [Entitic vol] 9.4 fL 6.2-12.0 [facility] Determination of erythrocyte mean corpuscular volume (MCV)Ordered By: STEVEN BOLES on 12-14-2022 MCV (RBC) [Entitic vol] 96.7 fL 81-99 [facility] Direct bilirubinOrdered By: STEVEN BOLES on 12-14-2022 Bilirubin.direct [Mass/Vol] 0.09 mg/dL 0.00-0.30 [facility] Erythrocyte sedimentation ra teOrdered By: STEVEN BOLES on 12-14-2022 ESR (Bld) [Velocity] 20 mm/h 0-30 [facility] Hematocrit Auto (Bld) [Volum e fraction]Ordered By: STEVEN BOLES on 12-14-2022 Hematocrit (Bld) [Volume fraction] 38.5 % 37-47 [facility] Laboratory - Chemistry and C hemistry - challengeOrdered By: STEVEN BOLES on 12-14-2022 ALP [Catalytic activity/Vol] 59 U/L 45-117 [facility] ALT [Catalytic activity/Vol] 28 U/L 13-56 [facility] Globulin (S) [Mass/Vol] 3.6 g/dL 2.2-4.2 [facility] Laboratory - Hematology and Cell countsOrdered By: STEVEN BOLES on 12-14-2022 Erythrocyte distribution width (RBC) [Entitic vol] 49.9 fL 35.1-43.9 [facility] Erythrocyte distribution width (RBC) [Ratio] 14.0 % 11.6-14.6 [facility] Immature granulocytes/100 WBC (Bld) 0.400 % 0.0-0.9 [facility] Comment on above: IG% - Immature Granu locytes (promyelocytes, myelocytes and metamyelocytes) > 1% indicates that a LEFT SHIFT is Present. MCH (RBC) [Entitic mass] 31.2 pg 27.0-32.0 [facility] Nucleated RBC/100 WBC (Bld) [Ratio] 0 % 0-5 [facility] MCHC Auto (RBC) [Mass/Vol]Or dered By: STEVEN BOLES on 12-14-2022 MCHC (RBC) [Mass/Vol] 32.2 g/dL 32-36 [facility] No Panel InformationOrdered By: STEVEN BOLES on 12-14-2022 Estimated GFR (MDRD) Amer 106 mL/min >60 [facility] Comment on above: GFR Calc Estimated GFR (MDRD) Non-Af Amer 88 mL/min >60 [facility] Comment on above: Non- GFR Calc Platelets bldOrdered By: IRENE BOLES on 12-14-2022 Platelets (Bld) [#/Vol] 302 10*3/uL 150-450 [facility] Serum or plasma C reactive p rotein measurement (mass/volume)Ordered By: STEVEN BOLES on 12-14-2022 CRP [Mass/Vol] 8.54 mg/L 0.0-3.0 [facility] Comment on above: C-Reactive Protein ( CRP) provides useful information for thediagnosis, therapy and monitoring of inflammatory processesand associated diseases. For the evaluation of Relative Riskfor Cardiovascular Disease, a High Sensitivity CRP (HSCRP)should be ordered. Serum or plasma albumin sancho urement (mass/volume)Ordered By: STEVEN BOLES on 12-14-2022 Albumin [Mass/Vol] 3.7 g/dL 3.2-5.0 [facility] Serum or plasma creatinine m easurement (mass/volume)Ordered By: STEVEN BOLES on 12-14-2022 Creatinine [Mass/Vol] 0.77 mg/dL 0.55-1.02 [facility] Comment on above: The validity of the calculated GFR & GFRAA in patients over 70 years has not been determined. Clinical correlation is essential. Thin prep Papanicolaou smear with manual screeningOrdered By: STEVEN BOLES on 12-14-2022 Thin prep Papanicolaou smear with manual screening 22 U/L 15-37 [facility] Basophil percentageOrdered B y: Dirk Paula on 12-02-2022 Chloride [Moles/Vol] 106 mmol/L 98-107 [facility] Glucose [Mass/Vol] 99 mg/dL 74-106 [facility] Potassium [Moles/Vol] 4.2 mmol/L 3.5-5.1 [facility] Sodium [Moles/Vol] 139 mmol/L 136-145 [facility] Laboratory - Chemistry and C hemistry - challengeOrdered By: Dirk Paula on 12-02-2022 CO2 [Moles/Vol] 28.0 mmol/L 21.0-32.0 [facility] Urea nitrogen/Creatinine [Mass ratio] 18.1 mg/mg 10-20 [facility] No Panel InformationOrdered By: Dirk Paula on 12-02-2022 Estimated GFR (MDRD) Amer 106 mL/min >60 [facility] Comment on above: GFR Calc Estimated GFR (MDRD) Non-Af Amer 88 mL/min >60 [facility] Comment on above: Non- GFR Calc Serum or plasma calcium sancho urement (mass/volume)Ordered By: Dirk Paula on 12-02-2022 Calcium [Mass/Vol] 10.1 mg/dL 8.5-10.1 [facility] Serum or plasma creatinine m easurement (mass/volume)Ordered By: Dirk Paula on 12-02-2022 Creatinine [Mass/Vol] 0.77 mg/dL 0.55-1.02 [facility] Comment on above: The validity of the calculated GFR & GFRAA in patients over 70 years has not been determined. Clinical correlation is essential. Serum or plasma urea nitroge n measurement (mass/volume)Ordered By: Dirk Paula on 12-02-2022 Urea nitrogen [Mass/Vol] 14 mg/dL 01-31 [facility] Thin prep Papanicolaou smear with manual screeningOrdered By: Dirk Paula on 12-02-2022 Thin prep Papanicolaou smear with manual screening 11-28 [facility] No Panel InformationOrdered By: Dr. Lou on 11-01-2022 Parathyroid Hormone (Intact) 95.6 pg/mL 18.4-80.1 [facility] Thyroid Stimulating Hormone (TSH) 1.00 uIU/mL 0.358-3.74 [facility] Vitamin D 25-Hydroxy 37.3 ng/mL [facility] Comment on above: Vitamin D 25(OH) Sta tus Range Deficiency <20 ng/mL (50nmol/L) Insufficiency 20 - 30 ng/mL (50 - 75 nmol/L) Sufficiency 30 - 100 ng/mL (75 - 250 nmol/L) Toxicity >100 ng/mL (>250 nmol/L) Serum or plasma calcium sancho urement (mass/volume)Ordered By: Dr. Lou on 11-01-2022 Calcium [Mass/Vol] 10.4 mg/dL 8.5-10.1 [facility] Absolute lymphocyte countOrd ered By: STEVEN BOLES on 10-13-2022 Lymphocytes Auto (Unsp spec) [#/Vol] 2.23 10*3/uL 0.83-4.51 [facility] Basophil percentageOrdered B y: STEVEN BOLES on 10-13-2022 Basophils/100 WBC (Bld) 0.9 % 0-1 [facility] Bilirubin [Mass/Vol] 0.50 mg/dL 0.20-1.00 [facility] Comment on above: For patients on eltr ombopag therapy, use of [place] TBIL is not recommended. Eosinophils/100 WBC (Bld) 3.0 % 0-5 [facility] Neutrophils (Bld) [#/Vol] 4.0 10*3/uL 2.0-7.7 [facility] Neutrophils/100 WBC (Bld) 57.6 % 47-70 [facility] Protein [Mass/Vol] 7.7 g/dL 6.4-8.2 [facility] WBC (Bld) [#/Vol] 7.0 10*3/uL 4.4-11.0 [facility] Blood erythrocytes count (nu mber/volume)Ordered By: STEVEN BOLES on 10-13-2022 RBC (Bld) [#/Vol] 4.16 10*6/uL 4.2-5.4 [facility] Blood hemoglobin measurement (mass/volume)Ordered By: STEVEN BOLES on 10-13-2022 Hemoglobin (Bld) [Mass/Vol] 12.7 g/dL 12.0-15.0 [facility] Blood lymphocytes/100 leukoc ytesOrdered By: STEVEN BOLES on 10-13-2022 Lymphocytes/100 WBC (Bld) 32.0 % 19-41 [facility] Blood monocytes/100 leukocyt esOrdered By: STEVEN BOLES on 10-13-2022 Monocytes/100 WBC (Bld) 6.2 % 0-10 [facility] Blood platelet mean volumeOr dered By: STEVEN BOLES on 10-13-2022 Platelet mean volume (Bld) [Entitic vol] 10.2 fL 6.2-12.0 [facility] Determination of erythrocyte mean corpuscular volume (MCV)Ordered By: STEVEN BOLES on 10-13-2022 MCV (RBC) [Entitic vol] 95.4 fL 81-99 [facility] Direct bilirubinOrdered By: STEVEN BOLES on 10-13-2022 Bilirubin.direct [Mass/Vol] 0.14 mg/dL 0.00-0.30 [facility] Erythrocyte sedimentation ra teOrdered By: STEVEN BOLES on 10-13-2022 ESR (Bld) [Velocity] 24 mm/h 0-30 [facility] Hematocrit Auto (Bld) [Volum e fraction]Ordered By: STEVEN BOLES on 10-13-2022 Hematocrit (Bld) [Volume fraction] 39.7 % 37-47 [facility] Laboratory - Chemistry and C hemistry - challengeOrdered By: STEVEN BOLES on 10-13-2022 ALP [Catalytic activity/Vol] 60 U/L 45-117 [facility] ALT [Catalytic activity/Vol] 32 U/L 13-56 [facility] Globulin (S) [Mass/Vol] 3.6 g/dL 2.2-4.2 [facility] Laboratory - Hematology and Cell countsOrdered By: STEVEN BOLES on 10-13-2022 Erythrocyte distribution width (RBC) [Entitic vol] 43.9 fL 35.1-43.9 [facility] Erythrocyte distribution width (RBC) [Ratio] 12.6 % 11.6-14.6 [facility] Immature granulocytes/100 WBC (Bld) 0.300 % 0.0-0.9 [facility] Comment on above: IG% - Immature Granu locytes (promyelocytes, myelocytes and metamyelocytes) > 1% indicates that a LEFT SHIFT is Present. MCH (RBC) [Entitic mass] 30.5 pg 27.0-32.0 [facility] Nucleated RBC/100 WBC (Bld) [Ratio] 0 % 0-5 [facility] MCHC Auto (RBC) [Mass/Vol]Or dered By: STEVEN BOLES on 10-13-2022 MCHC (RBC) [Mass/Vol] 32.0 g/dL 32-36 [facility] No Panel InformationOrdered By: STEVEN BOLES on 10-13-2022 Estimated GFR (MDRD) Amer 106 mL/min >60 [facility] Comment on above: GFR Calc Estimated GFR (MDRD) Non-Af Amer 88 mL/min >60 [facility] Comment on above: Non- GFR Calc Platelets bldOrdered By: IRENE BOLES on 10-13-2022 Platelets (Bld) [#/Vol] 312 10*3/uL 150-450 [facility] Serum cyclic citrullinated p eptide IgG antibody assay (units/volume)Ordered By: STEVEN BOLES on 10-13-2022 Cyclic citrullinated peptide IgG Qn 7 units 0-19 [facility] Comment on above: Negative <20 Weak po sitive 20 - 39 Moderate positive 40 - 59 Strong positive >59Performed at: [id number] [place], [place] [id number] Director: Levi Covarrubias PhD, Phone: [phone] Serum or plasma C reactive p rotein measurement (mass/volume)Ordered By: STEVEN BOLES on 10-13-2022 CRP [Mass/Vol] mg/L 0.0-3.0 [facility] Comment on above: C-Reactive Protein ( CRP) provides useful information for thediagnosis, therapy and monitoring of inflammatory processesand associated diseases. For the evaluation of Relative Riskfor Cardiovascular Disease, a High Sensitivity CRP (HSCRP)should be ordered. Serum or plasma albumin sancho urement (mass/volume)Ordered By: STEVEN BOLES on 10-13-2022 Albumin [Mass/Vol] 4.1 g/dL 3.2-5.0 [facility] Serum or plasma complement C 3 measurement (mass/volume)Ordered By: STEVEN BOLES on 10-13-2022 Complement C3 [Mass/Vol] 163 mg/dL 82-167 [facility] Serum or plasma complement C 4 measurement (mass/volume)Ordered By: STEVEN BOLES on 10-13-2022 Complement C4 [Mass/Vol] 30 mg/dL 12-38 [facility] Serum or plasma creatinine m easurement (mass/volume)Ordered By: STEVEN BOLES on 10-13-2022 Creatinine [Mass/Vol] 0.77 mg/dL 0.55-1.02 [facility] Comment on above: The validity of the calculated GFR & GFRAA in patients over 70 years has not been determined. Clinical correlation is essential. Serum rheumatoid factor dete ctionOrdered By: STEVEN BOLES on 10-13-2022 Rheumatoid factor Ql (S) < 10.0 IU/mL <15 [facility] Thin prep Papanicolaou smear with manual screeningOrdered By: STEVEN BOLES on 10-13-2022 Thin prep Papanicolaou smear with manual screening 17 U/L 15-37 [facility] Laboratory - Chemistry and C hemistry - challengeOrdered By: Dirk Paula on 09-29-2022 Cobalamin (Vitamin B12) [Mass/Vol] 334 pg/mL 211-911 [facility] No Panel InformationOrdered By: Nicolette Johnnie on 09-29-2022 Hepatitis B Surface Antibody Reactive [facility] Comment on above: Non Reactive: Incons istent with immunity less than <10 mIU/mL Reactive: Consistent with immunity greater than or equal to 10 mIU/mL Laboratory - Microbiology an d Antimicrobial susceptibilityon 09-01-2022 S. pyogenes Ag IA Ql (Unsp spec) Negative [facility] No Panel Informationon 09-01 Influenza Types A,B Rapid (Clinic) Negative [facility] POC SARS CoV-2 Antigen Negative [facility] Laboratory - Hematology and Cell countson 08-15-2022 HbA1c (Bld) [Mass fraction] 5.8 % 4.2-6.3 [facility] Absolute lymphocyte countOrd ered By: Dr. Osorio on 08-04-2022 Lymphocytes Auto (Unsp spec) [#/Vol] 2.02 10*3/uL 0.83-4.51 [facility] Basophil percentageOrdered B y: Dr. Osorio on 08-04-2022 Basophils/100 WBC (Bld) 0.7 % 0-1 [facility] Bilirubin [Mass/Vol] 0.40 mg/dL 0.20-1.00 [facility] Comment on above: For patients on eltr ombopag therapy, use of Dimension [place] TBIL is not recommended. Chloride [Moles/Vol] 103 mmol/L 98-107 [facility] Eosinophils/100 WBC (Bld) 1.9 % 0-5 [facility] Glucose [Mass/Vol] 98 mg/dL 74-106 [facility] Neutrophils (Bld) [#/Vol] 2.8 10*3/uL 2.0-7.7 [facility] Neutrophils/100 WBC (Bld) 52.5 % 47-70 [facility] Potassium [Moles/Vol] 3.5 mmol/L 3.5-5.1 [facility] Protein [Mass/Vol] 7.7 g/dL 6.4-8.2 [facility] Sodium [Moles/Vol] 139 mmol/L 136-145 [facility] WBC (Bld) [#/Vol] 5.3 10*3/uL 4.4-11.0 [facility] Blood erythrocytes count (nu mber/volume)Ordered By: Dr. Osorio on 08-04-2022 RBC (Bld) [#/Vol] 3.99 10*6/uL 4.2-5.4 [facility] Blood hemoglobin measurement (mass/volume)Ordered By: Dr. Osorio on 08-04-2022 Hemoglobin (Bld) [Mass/Vol] 12.3 g/dL 12.0-15.0 [facility] Blood lymphocytes/100 leukoc ytesOrdered By: Dr. Osorio on 08-04-2022 Lymphocytes/100 WBC (Bld) 37.8 % 19-41 [facility] Blood monocytes/100 leukocyt esOrdered By: Dr. Osorio on 08-04-2022 Monocytes/100 WBC (Bld) 6.7 % 0-10 [facility] Blood platelet mean volumeOr dered By: Dr. Osorio on 08-04-2022 Platelet mean volume (Bld) [Entitic vol] 9.5 fL 6.2-12.0 [facility] Determination of erythrocyte mean corpuscular volume (MCV)Ordered By: Dr. Osorio on 08-04-2022 MCV (RBC) [Entitic vol] 95.7 fL 81-99 [facility] Hematocrit Auto (Bld) [Volum e fraction]Ordered By: Dr. Osorio on 08-04-2022 Hematocrit (Bld) [Volume fraction] 38.2 % 37-47 [facility] Laboratory - Chemistry and C hemistry - challengeOrdered By: Dr. Osorio on 08-04-2022 ALP [Catalytic activity/Vol] 57 U/L 45-117 [facility] ALT [Catalytic activity/Vol] 34 U/L 13-56 [facility] CO2 [Moles/Vol] 28.0 mmol/L 21.0-32.0 [facility] Globulin (S) [Mass/Vol] 3.8 g/dL 2.2-4.2 [facility] Urea nitrogen/Creatinine [Mass ratio] 12.9 mg/mg 10-20 [facility] Laboratory - Hematology and Cell countsOrdered By: Dr. Osorio on 08-04-2022 Erythrocyte distribution width (RBC) [Entitic vol] 45.3 fL 35.1-43.9 [facility] Erythrocyte distribution width (RBC) [Ratio] 13.1 % 11.6-14.6 [facility] Immature granulocytes/100 WBC (Bld) 0.400 % 0.0-0.9 [facility] Comment on above: IG% - Immature Granu locytes (promyelocytes, myelocytes and metamyelocytes) > 1% indicates that a LEFT SHIFT is Present. MCH (RBC) [Entitic mass] 30.8 pg 27.0-32.0 [facility] Nucleated RBC/100 WBC (Bld) [Ratio] 0 % 0-5 [facility] MCHC Auto (RBC) [Mass/Vol]Or dered By: Dr. Osorio on 08-04-2022 MCHC (RBC) [Mass/Vol] 32.2 g/dL 32-36 [facility] No Panel InformationOrdered By: Dr. Lou on 08-04-2022 Thyroid Stimulating Hormone (TSH) 1.23 uIU/mL 0.358-3.74 [facility] Vitamin D 25-Hydroxy 39.8 ng/mL [facility] Comment on above: Vitamin D 25(OH) Sta tus Range Deficiency <20 ng/mL (50nmol/L) Insufficiency 20 - 30 ng/mL (50 - 75 nmol/L) Sufficiency 30 - 100 ng/mL (75 - 250 nmol/L) Toxicity >100 ng/mL (>250 nmol/L) No Panel InformationOrdered By: Dr. Osorio on 08-04-2022 Estimated GFR (MDRD) Amer 95 mL/min >60 [facility] Comment on above: GFR Calc Estimated GFR (MDRD) Non-Af Amer 79 mL/min >60 [facility] Comment on above: Non- GFR Calc Platelets bldOrdered By: Dr. Osorio on 08-04-2022 Platelets (Bld) [#/Vol] 339 10*3/uL 150-450 [facility] Serum or plasma albumin sancho urement (mass/volume)Ordered By: Dr. Osorio on 08-04-2022 Albumin [Mass/Vol] 3.9 g/dL 3.2-5.0 [facility] Serum or plasma albumin/glob ulin mass ratioOrdered By: Dr. Osorio on 08-04-2022 Albumin/Globulin [Mass ratio] 1.0 {ratio} 0.9-2.4 [facility] Serum or plasma calcium sancho urement (mass/volume)Ordered By: Dr. Osorio on 08-04-2022 Calcium [Mass/Vol] 10.1 mg/dL 8.5-10.1 [facility] Serum or plasma creatinine m easurement (mass/volume)Ordered By: Dr. Osorio on 08-04-2022 Creatinine [Mass/Vol] 0.85 mg/dL 0.55-1.02 [facility] Comment on above: The validity of the calculated GFR & GFRAA in patients over 70 years has not been determined. Clinical correlation is essential. Serum or plasma urea nitroge n measurement (mass/volume)Ordered By: Dr. Osorio on 08-04-2022 Urea nitrogen [Mass/Vol] 11 mg/dL 7-18 [facility] Thin prep Papanicolaou smear with manual screeningOrdered By: Dr. Osorio on 08-04-2022 Thin prep Papanicolaou smear with manual screening 20 U/L 15-37 [facility] Thin prep Papanicolaou smear with manual screening 8 5-15 [facility] Qualitative QuantiFERON-TB g old in tube testOrdered By: Dr. Osorio on 06-24-2022 M. tuberculosis tuberculin stim IFN-g Ql (Bld) Not Reportable [facility] Thin prep Papanicolaou smear with manual screeningOrdered By: Dr. Osorio on 06-24-2022 Thin prep Papanicolaou smear with manual screening See comment [facility] Comment on above: TEST RESULT LIMITSQF [...] gamma.Chemiluminescence immunoassay methodology ____ TESTING PERFORMED AT [facility]. ORIGINAL REPORT ON FILE IN LAB CONTAINS ADDITIONAL TEST SITE INFORMATION. Thin prep Papanicolaou smear with manual screening Not Reportable [facility] Absolute lymphocyte countOrd ered By: Dr. Osorio on 06-13-2022 Lymphocytes Auto (Unsp spec) [#/Vol] 2.41 10*3/uL 0.83-4.51 [facility] Basophil percentageOrdered B y: Dr. Osorio on 06-13-2022 Basophils/100 WBC (Bld) 0.9 % 0-1 [facility] Bilirubin [Mass/Vol] 0.50 mg/dL 0.20-1.00 [facility] Comment on above: For patients on eltr ombopag therapy, use of Dim[place] TBIL is not recommended. Chloride [Moles/Vol] 101 mmol/L 98-107 [facility] Eosinophils/100 WBC (Bld) 1.7 % 0-5 [facility] Glucose [Mass/Vol] 117 mg/dL 74-106 [facility] Comment on above: Fasting Glucose resu lt from 100 to 125 mg/dL suggests IMPAIRED HOMEOSTASIS per A.D.A. criteria. Neutrophils (Bld) [#/Vol] 4.5 10*3/uL 2.0-7.7 [facility] Neutrophils/100 WBC (Bld) 58.9 % 47-70 [facility] Potassium [Moles/Vol] 3.5 mmol/L 3.5-5.1 [facility] Protein [Mass/Vol] 7.5 g/dL 6.4-8.2 [facility] Sodium [Moles/Vol] 136 mmol/L 136-145 [facility] WBC (Bld) [#/Vol] 7.6 10*3/uL 4.4-11.0 [facility] Blood erythrocytes count (nu mber/volume)Ordered By: Dr. Osorio on 06-13-2022 RBC (Bld) [#/Vol] 4.11 10*6/uL 4.2-5.4 [facility] Blood hemoglobin measurement (mass/volume)Ordered By: Dr. Osorio on 06-13-2022 Hemoglobin (Bld) [Mass/Vol] 12.9 g/dL 12.0-15.0 [facility] Blood lymphocytes/100 leukoc ytesOrdered By: Dr. Osorio on 06-13-2022 Lymphocytes/100 WBC (Bld) 31.9 % 19-41 [facility] Blood monocytes/100 leukocyt esOrdered By: Dr. Osorio on 06-13-2022 Monocytes/100 WBC (Bld) 6.3 % 0-10 [facility] Blood platelet mean volumeOr dered By: Dr. Osorio on 06-13-2022 Platelet mean volume (Bld) [Entitic vol] 8.9 fL 6.2-12.0 [facility] Determination of erythrocyte mean corpuscular volume (MCV)Ordered By: Dr. Osorio on 06-13-2022 MCV (RBC) [Entitic vol] 94.9 fL 81-99 [facility] HIV 1 and HIV-2 antibody ass ay with HIV-1 p24 antigen detectionOrdered By: Nicolette Johnnie on 06-13-2022 HIV 1+2 Ab+HIV1 p24 Ag IA Ql Non-Reactive Nonreactive [facility] Hematocrit Auto (Bld) [Volum e fraction]Ordered By: Dr. Osorio on 06-13-2022 Hematocrit (Bld) [Volume fraction] 39.0 % 37-47 [facility] Laboratory - Chemistry and C hemistry - challengeOrdered By: Dr. Osorio on 06-13-2022 ALP [Catalytic activity/Vol] 66 U/L 45-117 [facility] ALT [Catalytic activity/Vol] 22 U/L 13-56 [facility] CO2 [Moles/Vol] 28.0 mmol/L 21.0-32.0 [facility] Globulin (S) [Mass/Vol] 3.8 g/dL 2.2-4.2 [facility] Urea nitrogen/Creatinine [Mass ratio] 13.9 mg/mg 10-20 [facility] Laboratory - Chemistry and C hemistry - challengeOrdered By: Dr. Lou on 06-13-2022 Free T4 [Mass/Vol] 1.00 ng/dL 0.76-1.46 [facility] Laboratory - Hematology and Cell countsOrdered By: Dr. Osorio on 06-13-2022 Erythrocyte distribution width (RBC) [Entitic vol] 47.2 fL 35.1-43.9 [facility] Erythrocyte distribution width (RBC) [Ratio] 13.4 % 11.6-14.6 [facility] Immature granulocytes/100 WBC (Bld) 0.300 % 0.0-0.9 [facility] Comment on above: IG% - Immature Granu locytes (promyelocytes, myelocytes and metamyelocytes) > 1% indicates that a LEFT SHIFT is Present. MCH (RBC) [Entitic mass] 31.4 pg 27.0-32.0 [facility] Nucleated RBC/100 WBC (Bld) [Ratio] 0 % 0-5 [facility] MCHC Auto (RBC) [Mass/Vol]Or dered By: Dr. Osorio on 06-13-2022 MCHC (RBC) [Mass/Vol] 33.1 g/dL 32-36 [facility] No Panel InformationOrdered By: Dr. Osorio on 06-13-2022 Estimated GFR (MDRD) Amer 94 mL/min >60 [facility] Comment on above: GFR Calc Estimated GFR (MDRD) Non-Af Amer 77 mL/min >60 [facility] Comment on above: Non- GFR Calc No Panel InformationOrdered By: Nicolette Blair on 06-13-2022 Hepatitis B Surface Antigen Non-Reactive Nonreactive [facility] Hepatitis C Antibody Non-Reactive Nonreactive [facility] Comment on above: Non Reactive: < 0.8 Equivocal: >/= 0.8 to < 1.0 Reactive: >/= 1.0The CDC recommends that a reactive/equivocal HCV antibody result be followed up by the HCV Nucleic Acid Amplificationtest (054958) No Panel InformationOrdered By: Dr. Lou on 06-13-2022 Parathyroid Hormone (Intact) 138.9 pg/mL 18.4-80.1 [facility] Thyroid Stimulating Hormone (TSH) 0.99 uIU/mL 0.358-3.74 [facility] Vitamin D 25-Hydroxy 14.3 ng/mL [facility] Comment on above: Vitamin D 25(OH) Sta tus Range Deficiency <20 ng/mL (50nmol/L) Insufficiency 20 - 30 ng/mL (50 - 75 nmol/L) Sufficiency 30 - 100 ng/mL (75 - 250 nmol/L) Toxicity >100 ng/mL (>250 nmol/L) Platelets bldOrdered By: Dr. Osorio on 06-13-2022 Platelets (Bld) [#/Vol] 345 10*3/uL 150-450 [facility] Serum or plasma albumin sancho urement (mass/volume)Ordered By: Dr. Osorio on 06-13-2022 Albumin [Mass/Vol] 3.7 g/dL 3.2-5.0 [facility] Serum or plasma albumin/glob ulin mass ratioOrdered By: Dr. Osorio on 06-13-2022 Albumin/Globulin [Mass ratio] 1.0 {ratio} 0.9-2.4 [facility] Serum or plasma calcium sancho urement (mass/volume)Ordered By: Dr. Osorio on 06-13-2022 Calcium [Mass/Vol] 9.5 mg/dL 8.5-10.1 [facility] Serum or plasma creatinine m easurement (mass/volume)Ordered By: Dr. Osorio on 06-13-2022 Creatinine [Mass/Vol] 0.86 mg/dL 0.55-1.02 [facility] Comment on above: The validity of the calculated GFR & GFRAA in patients over 70 years has not been determined. Clinical correlation is essential. Serum or plasma thyroperoxid ase antibody assay (units/volume)Ordered By: Dr. Lou on 06-13-2022 TPO Ab Qn 26 [IU]/mL 0-34 [facility] Comment on above: Performed at: [place] [id number] Director: Levi Covarrubias PhD, Phone: [phone] Serum or plasma urea nitroge n measurement (mass/volume)Ordered By: Dr. Osorio on 06-13-2022 Urea nitrogen [Mass/Vol] 12 mg/dL 7-18 [facility] Thin prep Papanicolaou smear with manual screeningOrdered By: Dr. Osorio on 06-13-2022 Thin prep Papanicolaou smear with manual screening 13 U/L 15-37 [facility] Thin prep Papanicolaou smear with manual screening 7 5-15 [facility] Absolute lymphocyte countOrd ered By: Dr. Osorio on 04-22-2022 Lymphocytes Auto (Unsp spec) [#/Vol] 1.57 10*3/uL 0.83-4.51 [facility] Basophil percentageOrdered B y: Dr. Osorio on 04-22-2022 Basophils/100 WBC (Bld) 0.3 % 0-1 [facility] Bilirubin [Mass/Vol] 0.40 mg/dL 0.20-1.00 [facility] Comment on above: For patients on eltr ombopag therapy, use of Dim[place] TBIL is not recommended. Chloride [Moles/Vol] 104 mmol/L 98-107 [facility] Eosinophils/100 WBC (Bld) 1.3 % 0-5 [facility] Glucose [Mass/Vol] 94 mg/dL 74-106 [facility] Neutrophils (Bld) [#/Vol] 5.4 10*3/uL 2.0-7.7 [facility] Neutrophils/100 WBC (Bld) 70.0 % 47-70 [facility] Potassium [Moles/Vol] 3.8 mmol/L 3.5-5.1 [facility] Protein [Mass/Vol] 8.2 g/dL 6.4-8.2 [facility] Sodium [Moles/Vol] 139 mmol/L 136-145 [facility] WBC (Bld) [#/Vol] 7.7 10*3/uL 4.4-11.0 [facility] Blood erythrocytes count (nu mber/volume)Ordered By: Dr. Osorio on 04-22-2022 RBC (Bld) [#/Vol] 4.47 10*6/uL 4.2-5.4 [facility] Blood hemoglobin measurement (mass/volume)Ordered By: Dr. Osorio on 04-22-2022 Hemoglobin (Bld) [Mass/Vol] 13.5 g/dL 12.0-15.0 [facility] Blood lymphocytes/100 leukoc ytesOrdered By: Dr. Osorio on 04-22-2022 Lymphocytes/100 WBC (Bld) 20.3 % 19-41 [facility] Blood monocytes/100 leukocyt esOrdered By: Dr. Osorio on 04-22-2022 Monocytes/100 WBC (Bld) 7.8 % 0-10 [facility] Blood platelet mean volumeOr dered By: Dr. Osorio on 04-22-2022 Platelet mean volume (Bld) [Entitic vol] 9.3 fL 6.2-12.0 [facility] Clostridium difficile detect ion by polymerase chain reactionOrdered By: Dirk Paula on 04-22-2022 C. difficile DNA TERESA+probe Ql (Unsp spec) [facility] Determination of erythrocyte mean corpuscular volume (MCV)Ordered By: Dr. Osorio on 04-22-2022 MCV (RBC) [Entitic vol] 94.0 fL 81-99 [facility] EP PanelOrdered By: Dirk viramontes on 04-22-2022 Gastrointestinal pathogens panel TERESA+probe (Stl) [facility] Hematocrit Auto (Bld) [Volum e fraction]Ordered By: Dr. Osorio on 04-22-2022 Hematocrit (Bld) [Volume fraction] 42.0 % 37-47 [facility] Laboratory - Chemistry and C hemistry - challengeOrdered By: Dr. Osorio on 04-22-2022 ALP [Catalytic activity/Vol] 76 U/L 45-117 [facility] ALT [Catalytic activity/Vol] 29 U/L 13-56 [facility] CO2 [Moles/Vol] 26.0 mmol/L 21.0-32.0 [facility] Globulin (S) [Mass/Vol] 4.3 g/dL 2.2-4.2 [facility] Urea nitrogen/Creatinine [Mass ratio] 9.1 mg/mg 10-20 [facility] Laboratory - Hematology and Cell countsOrdered By: Dr. Osorio on 04-22-2022 Erythrocyte distribution width (RBC) [Entitic vol] 44.7 fL 35.1-43.9 [facility] Erythrocyte distribution width (RBC) [Ratio] 13.2 % 11.6-14.6 [facility] Immature granulocytes/100 WBC (Bld) 0.300 % 0.0-0.9 [facility] Comment on above: IG% - Immature Granu locytes (promyelocytes, myelocytes and metamyelocytes) > 1% indicates that a LEFT SHIFT is Present. MCH (RBC) [Entitic mass] 30.2 pg 27.0-32.0 [facility] Nucleated RBC/100 WBC (Bld) [Ratio] 0 % 0-5 [facility] MCHC Auto (RBC) [Mass/Vol]Or dered By: Dr. Osorio on 04-22-2022 MCHC (RBC) [Mass/Vol] 32.1 g/dL 32-36 [facility] No Panel InformationOrdered By: Dr. Osorio on 04-22-2022 Estimated GFR (MDRD) Amer 71 mL/min >60 [facility] Comment on above: GFR Calc Estimated GFR (MDRD) Non-Af Amer 59 mL/min >60 [facility] Comment on above: Non- GFR Calc Platelets bldOrdered By: Dr. Osorio on 04-22-2022 Platelets (Bld) [#/Vol] 390 10*3/uL 150-450 [facility] Serum or plasma albumin sancho urement (mass/volume)Ordered By: Dr. Osorio on 04-22-2022 Albumin [Mass/Vol] 3.9 g/dL 3.2-5.0 [facility] Serum or plasma albumin/glob ulin mass ratioOrdered By: Dr. Osorio on 04-22-2022 Albumin/Globulin [Mass ratio] 0.9 {ratio} 0.9-2.4 [facility] Serum or plasma calcium sancho urement (mass/volume)Ordered By: Dr. Osorio on 04-22-2022 Calcium [Mass/Vol] 10.5 mg/dL 8.5-10.1 [facility] Serum or plasma creatinine m easurement (mass/volume)Ordered By: Dr. Osorio on 04-22-2022 Creatinine [Mass/Vol] 1.10 mg/dL 0.55-1.02 [facility] Comment on above: The validity of the calculated GFR & GFRAA in patients over 70 years has not been determined. Clinical correlation is essential. Serum or plasma urea nitroge n measurement (mass/volume)Ordered By: Dr. Osorio on 04-22-2022 Urea nitrogen [Mass/Vol] 10 mg/dL 7-18 [facility] Thin prep Papanicolaou smear with manual screeningOrdered By: Dr. Osorio on 04-22-2022 Thin prep Papanicolaou smear with manual screening 23 U/L 15-37 [facility] Thin prep Papanicolaou smear with manual screening 9 5-15 [facility] Absolute lymphocyte counton 03-22-2022 Lymphocytes Auto (Unsp spec) [#/Vol] 2.15 10*3/uL 0.83-4.51 [facility] Work Phone: Absolute reticulocyte counto n 03-22-2022 Reticulocytes (Bld) [#/Vol] 0.00 10*3/uL 0-5 [facility] Work Phone: Basophil percentageon 2021 Basophil percentage 3.3 mg/dL 2.5-4.9 [facility] Work Phone: Bilirubin [Mass/Vol] 0.40 mg/dL 0.20-1.00 [facility] Work Phone: Comment on above: For patients on eltr ombopag therapy, use of Dim[place] TBIL is not recommended. Chloride [Moles/Vol] 105 mmol/L 98-107 [facility] Work Phone: Cholesterol [Mass/Vol] 162 mg/dL <200 [facility] Work Phone: Comment on above: <200 mg/dL Desirable 200-240 mg/dL Borderline >240 mg/dL High Risk Glucose [Mass/Vol] 103 mg/dL 74-106 [facility] Work Phone: Comment on above: Fasting Glucose resu lt from 100 to 125 mg/dL suggests IMPAIRED HOMEOSTASIS per A.D.A. criteria. Neutrophils (Bld) [#/Vol] 4.1 10*3/uL 2.0-7.7 [facility] Work Phone: Potassium [Moles/Vol] 3.9 mmol/L 3.5-5.1 [facility] Work Phone: Protein [Mass/Vol] 7.1 g/dL 6.4-8.2 [facility] Work Phone: Sodium [Moles/Vol] 139 mmol/L 136-145 [facility] Work Phone: Triglyceride [Mass/Vol] 109 mg/dL <199 [facility] Work Phone: Comment on above: The drugs N-Acetylcy steine and Metamizole may falsely depress this assay.Serum Triglycerides Reference Interval Normal <150 mg/dL Borderline high 150 - 199 mg/dL High 200 - 499 mg/dL Very High > or = 500 mg/dL WBC (Bld) [#/Vol] 7.0 10*3/uL 4.4-11.0 [facility] Work Phone: Bilirubin Test strip Ql (U)o n 03-22-2022 Bilirubin Ql (U) Negative Negative [facility] Work Phone: Blood erythrocytes count (nu mber/volume)on 03-22-2022 RBC (Bld) [#/Vol] 3.97 10*6/uL 4.2-5.4 [facility] Work Phone: Blood hemoglobin measurement (mass/volume)on 03-22-2022 Hemoglobin (Bld) [Mass/Vol] 12.1 g/dL 12.0-15.0 [facility] Work Phone: Blood platelet mean volumeon 03-22-2022 Platelet mean volume (Bld) [Entitic vol] 9.6 fL 6.2-12.0 [facility] Work Phone: Determination of erythrocyte mean corpuscular volume (MCV)on 03-22-2022 MCV (RBC) [Entitic vol] 95.5 fL 81-99 [facility] Work Phone: Direct bilirubinon Bilirubin.direct [Mass/Vol] 0.11 mg/dL 0.00-0.30 [facility] Work Phone: Hematocrit Auto (Bld) [Volum e fraction]on 03-22-2022 Hematocrit (Bld) [Volume fraction] 37.9 % 37-47 [facility] Work Phone: Ketones Test strip Ql (U)on 03-22-2022 Ketones Ql (U) Negative Negative [facility] Work Phone: Laboratory - Chemistry and C hemistry - challengeon 03-22-2022 ALP [Catalytic activity/Vol] 60 U/L 45-117 [facility] Work Phone: ALT [Catalytic activity/Vol] 17 U/L 13-56 [facility] Work Phone: Cholesterol.total/Cho lesterol in HDL [Mass ratio] 2.80 {ratio} [facility] Work Phone: CO2 [Moles/Vol] 27.0 mmol/L 21.0-32.0 [facility] Work Phone: Free T4 [Mass/Vol] 1.03 ng/dL 0.76-1.46 [facility] Work Phone: Globulin (S) [Mass/Vol] 3.7 g/dL 2.2-4.2 [facility] Work Phone: Urea nitrogen/Creatinine [Mass ratio] 13.0 mg/mg 10-20 [facility] Work Phone: Laboratory - Hematology and Cell countson 03-22-2022 Erythrocyte distribution width (RBC) [Entitic vol] 45.8 fL 35.1-43.9 [facility] Work Phone: Erythrocyte distribution width (RBC) [Ratio] 13.1 % 11.6-14.6 [facility] Work Phone: MCH (RBC) [Entitic mass] 30.5 pg 27.0-32.0 [facility] Work Phone: Nucleated RBC/100 WBC (Bld) [Ratio] 0 % 0-5 [facility] Work Phone: MCHC Auto (RBC) [Mass/Vol]on 03-22-2022 MCHC (RBC) [Mass/Vol] 31.9 g/dL 32-36 [facility] Work Phone: Nitrite Test strip Ql (U)on 03-22-2022 Nitrite Ql (U) Negative Negative [facility] Work Phone: No Panel Informationon 03-22 Estimated GFR (MDRD) Amer 96 mL/min >60 [facility] Work Phone: Comment on above: GFR Calc Estimated GFR (MDRD) Non-Af Amer 79 mL/min >60 [facility] Work Phone: Comment on above: Non- GFR Calc Thyroid Stimulating Hormone (TSH) 0.35 uIU/mL 0.358-3.74 [facility] Work Phone: Platelets bldon 03-22-2022 Platelets (Bld) [#/Vol] 316 10*3/uL 150-450 [facility] Work Phone: [phone] Protein Test strip Ql (U)on 03-22-2022 Protein Ql (U) Negative Negative [facility] Work Phone: Segmented neutrophils/100 WB C Auto (Bld)on 03-22-2022 Segmented neutrophils/100 WBC (Bld) 58.9 % 47-70 [facility] Work Phone: [phone] Serum or plasma albumin sancho urement (mass/volume)on 03-22-2022 Albumin [Mass/Vol] 3.4 g/dL 3.2-5.0 [facility] Work Phone: [phone] Serum or plasma albumin/glob ulin mass ratioon 03-22-2022 Albumin/Globulin [Mass ratio] 0.9 {ratio} 0.9-2.4 [facility] Work Phone: [phone] Serum or plasma calcium sancho urement (mass/volume)on 03-22-2022 Calcium [Mass/Vol] 9.6 mg/dL 8.5-10.1 [facility] Work Phone: [phone] Serum or plasma cholesterol in HDL measurement (mass/volume)on 03-22-2022 Cholesterol in HDL [Mass/Vol] 57 mg/dL >40 [facility] Work Phone: Comment on above: The drugs N-Acetylcy steine and Metamizole may falsely depress this assay. Reference Range HDL <40 mg/dL Low HDL Cholesterol HDL >or= 60 mg/dL High HDL Cholesterol Serum or plasma cholesterol in VLDL measurement (mass/volume)on 03-22-2022 Cholesterol in VLDL [Mass/Vol] 22 mg/dL 5-40 [facility] Work Phone: Serum or plasma creatinine m easurement (mass/volume)on 03-22-2022 Creatinine [Mass/Vol] 0.85 mg/dL 0.55-1.02 [facility] Work Phone: Comment on above: The validity of the calculated GFR & GFRAA in patients over 70 years has not been determined. Clinical correlation is essential. Serum or plasma low density lipoprotein (LDL) cholesterol measurement (mass/volume)on 03-22-2022 Cholesterol in LDL [Mass/Vol] 83 mg/dL 0-130 [facility] Work Phone: Serum or plasma urea nitroge n measurement (mass/volume)on 03-22-2022 Urea nitrogen [Mass/Vol] 11 mg/dL 7-18 [facility] Work Phone: Serum or plasma uric acid me asurement (mass/volume)on 03-22-2022 Urate [Mass/Vol] 7.0 mg/dL 2.6-6.0 [facility] Work Phone: Comment on above: The drugs N-Acetylcy steine and Metamizole may falsely depress this assay. Thin prep Papanicolaou smear with manual screeningon 03-22-2022 Thin prep Papanicolaou smear with manual screening 13 U/L 15-37 [facility] Work Phone: Thin prep Papanicolaou smear with manual screening 7 5-15 [facility] Work Phone: Thin prep Papanicolaou smear with manual screening 215 U/L 84-246 [facility] Work Phone: Urine blood detectionon -0 RBC Ql (U) Negative Negative [facility] Work Phone: Urine clarityon 03-22-2022 Clarity (U) Clear Clear [facility] Work Phone: [phone] Urine color determinationon 03-22-2022 Color (U) Straw Yellow [facility] Work Phone: Urine glucose detectionon Glucose Ql (U) Normal mg/dl Normal [facility] Work Phone: Urine leukocyte esterase det ection by dipstickon 03-22-2022 Leukocyte esterase Test strip Ql (U) Negative Negative [facility] Work Phone: Urine pHon 03-22-2022 pH (U) 7.0 [pH] 5.0 - 8.0 [facility] Work Phone: Urine specific gravity measu rementon 03-22-2022 Specific gravity (U) [Rel density] 1.010 1.002-1.030 [facility] Work Phone: Urobilinogen Auto test strip Ql (U)on 03-22-2022 Urobilinogen Ql (U) Normal mg/dl Normal [facility] Work Phone: HIV 1 and HIV-2 antibody ass ay with HIV-1 p24 antigen detectionon 03-07-2022 HIV 1+2 Ab+HIV1 p24 Ag IA Ql Non-Reactive Nonreactive [facility] Work Phone: No Panel Informationon 03-07 Hepatitis B Surface Antigen Non-Reactive Nonreactive [facility] Work Phone: Hepatitis C Antibody Non-Reactive Nonreactive [facility] Work Phone: Comment on above: Non Reactive: < 0.8 Equivocal: >/= 0.8 to < 1.0 Reactive: >/= 1.0The CDC recommends that a reactive/equivocal HCV antibody result be followed up by the HCV Nucleic Acid Amplificationtest (141403) Serum hepatitis B virus surf tracy antibody IgG detectionon 03-07-2022 HBV surface IgG Ql (S) Reactive [facility] Work Phone: Comment on above: Non Reactive: Incons istent with immunity less than <10 mIU/mL Reactive: Consistent with immunity greater than or equal to 10 mIU/mL Laboratory - Microbiology an d Antimicrobial susceptibilityon 02-10-2022 SARS-CoV-2 (COVID-19) RNA TERESA+probe Ql (Unsp spec) Detected [facility] Work Phone: No Panel Informationon 02-10 Influenza Types A,B Rapid (Clinic) Not detected [facility] Work Phone: Absolute lymphocyte counton 01-11-2022 Lymphocytes Auto (Unsp spec) [#/Vol] 1.75 10*3/uL 0.83-4.51 [facility] Work Phone: Basophil percentageon 2021 Basophils/100 WBC (Bld) 0.8 % 0-1 [facility] Work Phone: Bilirubin [Mass/Vol] 0.30 mg/dL 0.20-1.00 [facility] Work Phone: Comment on above: For patients on eltr ombopag therapy, use of Dimension [place] TBIL is not recommended. Chloride [Moles/Vol] 103 mmol/L 98-107 [facility] Work Phone: Eosinophils/100 WBC (Bld) 2.5 % 0-5 [facility] Work Phone: Glucose [Mass/Vol] 93 mg/dL 74-106 [facility] Work Phone: Neutrophils (Bld) [#/Vol] 4.9 10*3/uL 2.0-7.7 [facility] Work Phone: Neutrophils/100 WBC (Bld) 65.7 % 47-70 [facility] Work Phone: Potassium [Moles/Vol] 3.9 mmol/L 3.5-5.1 [facility] Work Phone: Protein [Mass/Vol] 7.5 g/dL 6.4-8.2 [facility] Work Phone: Sodium [Moles/Vol] 138 mmol/L 136-145 [facility] Work Phone: WBC (Bld) [#/Vol] 7.5 10*3/uL 4.4-11.0 [facility] Work Phone: Blood erythrocytes count (nu mber/volume)on 01-11-2022 RBC (Bld) [#/Vol] 3.88 10*6/uL 4.2-5.4 [facility] Work Phone: Blood hemoglobin measurement (mass/volume)on 01-11-2022 Hemoglobin (Bld) [Mass/Vol] 12.4 g/dL 12.0-15.0 [facility] Work Phone: Blood lymphocytes/100 leukoc yteson 01-11-2022 Lymphocytes/100 WBC (Bld) 23.3 % 19-41 [facility] Work Phone: Blood monocytes/100 leukocyt eson 01-11-2022 Monocytes/100 WBC (Bld) 7.3 % 0-10 [facility] Work Phone: Blood platelet mean volumeon 01-11-2022 Platelet mean volume (Bld) [Entitic vol] 9.5 fL 6.2-12.0 [facility] Work Phone: Determination of erythrocyte mean corpuscular volume (MCV)on 01-11-2022 MCV (RBC) [Entitic vol] 109.3 fL 81-99 [facility] Work Phone: Hematocrit Auto (Bld) [Volum e fraction]on 01-11-2022 Hematocrit (Bld) [Volume fraction] 42.4 % 37-47 [facility] Work Phone: [phone] Laboratory - Chemistry and C hemistry - challengeon 01-11-2022 Free T4 [Mass/Vol] 0.96 ng/dL 0.76-1.46 [facility] Work Phone: [phone] ALP [Catalytic activity/Vol] 72 U/L 45-117 [facility] Work Phone: ALT [Catalytic activity/Vol] 18 U/L 13-56 [facility] Work Phone: [phone] CO2 [Moles/Vol] 30.0 mmol/L 21.0-32.0 [facility] Work Phone: Globulin (S) [Mass/Vol] 3.9 g/dL 2.2-4.2 [facility] Work Phone: [phone] Urea nitrogen/Creatinine [Mass ratio] 8.1 mg/mg 10-20 [facility] Work Phone: Laboratory - Hematology and Cell countson 01-11-2022 Erythrocyte distribution width (RBC) [Entitic vol] 57.1 fL 35.1-43.9 [facility] Work Phone: Erythrocyte distribution width (RBC) [Ratio] 14.1 % 11.6-14.6 [facility] Work Phone: Immature granulocytes/100 WBC (Bld) 0.400 % 0.0-0.9 [facility] Work Phone: Comment on above: IG% - Immature Granu locytes (promyelocytes, myelocytes and metamyelocytes) > 1% indicates that a LEFT SHIFT is Present. MCH (RBC) [Entitic mass] 32.0 pg 27.0-32.0 [facility] Work Phone: Nucleated RBC/100 WBC (Bld) [Ratio] 0 % 0-5 [facility] Work Phone: MCHC Auto (RBC) [Mass/Vol]on 01-11-2022 MCHC (RBC) [Mass/Vol] 29.2 g/dL 32-36 [facility] Work Phone: No Panel Informationon 01-11 Thyroid Stimulating Hormone (TSH) 0.32 uIU/mL 0.358-3.74 [facility] Work Phone: Estimated GFR (MDRD) Amer 112 mL/min >60 [facility] Work Phone: Comment on above: GFR Calc Estimated GFR (MDRD) Non-Af Amer 93 mL/min >60 [facility] Work Phone: Comment on above: Non- GFR Calc Platelets bldon 01-11-2022 Platelets (Bld) [#/Vol] 255 10*3/uL 150-450 [facility] Work Phone: Serum or plasma albumin sancho urement (mass/volume)on 01-11-2022 Albumin [Mass/Vol] 3.6 g/dL 3.2-5.0 [facility] Work Phone: Serum or plasma albumin/glob ulin mass ratioon 01-11-2022 Albumin/Globulin [Mass ratio] 0.9 {ratio} 0.9-2.4 [facility] Work Phone: [phone] Serum or plasma calcium sancho urement (mass/volume)on 01-11-2022 Calcium [Mass/Vol] 9.8 mg/dL 8.5-10.1 [facility] Work Phone: Serum or plasma creatinine m easurement (mass/volume)on 01-11-2022 Creatinine [Mass/Vol] 0.74 mg/dL 0.55-1.02 [facility] Work Phone: Comment on above: The validity of the calculated GFR & GFRAA in patients over 70 years has not been determined. Clinical correlation is essential. Serum or plasma urea nitroge n measurement (mass/volume)on 01-11-2022 Urea nitrogen [Mass/Vol] 6 mg/dL 7-18 [facility] Work Phone: Thin prep Papanicolaou smear with manual screeningon 01-11-2022 Thin prep Papanicolaou smear with manual screening 12 U/L 15-37 [facility] Work Phone: [phone] Thin prep Papanicolaou smear with manual screening 5 5-15 [facility] Work Phone: [phone] Absolute lymphocyte counton 12-27-2021 Lymphocytes Auto (Unsp spec) [#/Vol] 2.52 10*3/uL 0.83-4.51 [facility] Work Phone: [phone] Basophil percentageon 2021 Chloride [Moles/Vol] 103 mmol/L 98-107 [facility] Work Phone: [phone] Glucose [Mass/Vol] 84 mg/dL 74-106 [facility] Work Phone: [phone] Potassium [Moles/Vol] 3.9 mmol/L 3.5-5.1 [facility] Work Phone: [phone] Sodium [Moles/Vol] 138 mmol/L 136-145 [facility] Work Phone: Basophils/100 WBC (Bld) 0.6 % 0-1 [facility] Work Phone: Eosinophils/100 WBC (Bld) 2.6 % 0-5 [facility] Work Phone: Neutrophils (Bld) [#/Vol] 3.6 10*3/uL 2.0-7.7 [facility] Work Phone: Neutrophils/100 WBC (Bld) 53.3 % 47-70 [facility] Work Phone: WBC (Bld) [#/Vol] 6.8 10*3/uL 4.4-11.0 [facility] Work Phone: Blood erythrocytes count (nu mber/volume)on 12-27-2021 RBC (Bld) [#/Vol] 4.19 10*6/uL 4.2-5.4 [facility] Work Phone: Blood hemoglobin measurement (mass/volume)on 12-27-2021 Hemoglobin (Bld) [Mass/Vol] 12.8 g/dL 12.0-15.0 [facility] Work Phone: Blood lymphocytes/100 leukoc yteson 12-27-2021 Lymphocytes/100 WBC (Bld) 37.0 % 19-41 [facility] Work Phone: Blood monocytes/100 leukocyt eson 12-27-2021 Monocytes/100 WBC (Bld) 6.2 % 0-10 [facility] Work Phone: Blood platelet mean volumeon 12-27-2021 Platelet mean volume (Bld) [Entitic vol] 9.8 fL 6.2-12.0 [facility] Work Phone: Determination of erythrocyte mean corpuscular volume (MCV)on 12-27-2021 MCV (RBC) [Entitic vol] 95.5 fL 81-99 [facility] Work Phone: Hematocrit Auto (Bld) [Volum e fraction]on 12-27-2021 Hematocrit (Bld) [Volume fraction] 40.0 % 37-47 [facility] Work Phone: [phone] Iron measurement (mass/mass) on 12-27-2021 Iron (Unsp spec) [Mass/Mass] 55 ug/dL 50-170 [facility] Work Phone: Laboratory - Chemistry and C hemistry - challengeon 12-27-2021 CO2 [Moles/Vol] 29.0 mmol/L 21.0-32.0 [facility] Work Phone: Urea nitrogen/Creatinine [Mass ratio] 10.8 mg/mg 10-20 [facility] Work Phone: Laboratory - Hematology and Cell countson 12-27-2021 Erythrocyte distribution width (RBC) [Entitic vol] 46.8 fL 35.1-43.9 [facility] Work Phone: Erythrocyte distribution width (RBC) [Ratio] 13.2 % 11.6-14.6 [facility] Work Phone: Immature granulocytes/100 WBC (Bld) 0.300 % 0.0-0.9 [facility] Work Phone: Comment on above: IG% - Immature Granu locytes (promyelocytes, myelocytes and metamyelocytes) > 1% indicates that a LEFT SHIFT is Present. MCH (RBC) [Entitic mass] 30.5 pg 27.0-32.0 [facility] Work Phone: Nucleated RBC/100 WBC (Bld) [Ratio] 0 % 0-5 [facility] Work Phone: MCHC Auto (RBC) [Mass/Vol]on 12-27-2021 MCHC (RBC) [Mass/Vol] 32.0 g/dL 32-36 [facility] Work Phone: No Panel Informationon 12-27 Estimated GFR (MDRD) Amer 86 mL/min >60 [facility] Work Phone: Comment on above: GFR Calc Estimated GFR (MDRD) Non-Af Amer 71 mL/min >60 [facility] Work Phone: Comment on above: Non- GFR Calc Total Iron Binding Capacity 413 ug/dL 250-450 [facility] Work Phone: Platelets bldon 12-27-2021 Platelets (Bld) [#/Vol] 346 10*3/uL 150-450 [facility] Work Phone: [phone] Serum or plasma calcium sancho urement (mass/volume)on 12-27-2021 Calcium [Mass/Vol] 9.6 mg/dL 8.5-10.1 [facility] Work Phone: [phone] Serum or plasma creatinine m easurement (mass/volume)on 12-27-2021 Creatinine [Mass/Vol] 0.93 mg/dL 0.55-1.02 [facility] Work Phone: [phone] Comment on above: The validity of the calculated GFR & GFRAA in patients over 70 years has not been determined. Clinical correlation is essential. Serum or plasma ferritin vinayak surement (mass/volume)on 12-27-2021 Ferritin [Mass/Vol] 36 ng/mL 8-252 [facility] Work Phone: [phone] Serum or plasma iron saturat ion measurement (mass fraction)on 12-27-2021 Iron saturation [Mass fraction] 13.3 % 15.0-55.0 [facility] Work Phone: [phone] Serum or plasma urea nitroge n measurement (mass/volume)on 12-27-2021 Urea nitrogen [Mass/Vol] 10 mg/dL 7-18 [facility] Work Phone: [phone] Thin prep Papanicolaou smear with manual screeningon 12-27-2021 Thin prep Papanicolaou smear with manual screening 6 5-15 [facility] Work Phone: [phone] Absolute lymphocyte counton 10-21-2021 Lymphocytes Auto (Unsp spec) [#/Vol] 1.87 10*3/uL 0.83-4.51 [facility] Work Phone: Basophil percentageon 2021 Basophils/100 WBC (Bld) 0.8 % 0-1 [facility] Work Phone: Eosinophils/100 WBC (Bld) 2.0 % 0-5 [facility] Work Phone: Neutrophils (Bld) [#/Vol] 3.8 10*3/uL 2.0-7.7 [facility] Work Phone: Neutrophils/100 WBC (Bld) 59.2 % 47-70 [facility] Work Phone: WBC (Bld) [#/Vol] 6.5 10*3/uL 4.4-11.0 [facility] Work Phone: [phone] Bilirubin [Mass/Vol] 0.20 mg/dL 0.20-1.00 [facility] Work Phone: [phone] Comment on above: For patients on eltr ombopag therapy, use of Dimension [place] TBIL is not recommended. Chloride [Moles/Vol] 105 mmol/L 98-107 [facility] Work Phone: Glucose [Mass/Vol] 83 mg/dL 74-106 [facility] Work Phone: Potassium [Moles/Vol] 4.1 mmol/L 3.5-5.1 [facility] Work Phone: Protein [Mass/Vol] 7.3 g/dL 6.4-8.2 [facility] Work Phone: Sodium [Moles/Vol] 137 mmol/L 136-145 [facility] Work Phone: Blood erythrocytes count (nu mber/volume)on 10-21-2021 RBC (Bld) [#/Vol] 3.78 10*6/uL 4.2-5.4 [facility] Work Phone: Blood hemoglobin measurement (mass/volume)on 10-21-2021 Hemoglobin (Bld) [Mass/Vol] 11.6 g/dL 12.0-15.0 [facility] Work Phone: Blood lymphocytes/100 leukoc yteson 10-21-2021 Lymphocytes/100 WBC (Bld) 28.9 % 19-41 [facility] Work Phone: Blood monocytes/100 leukocyt eson 10-21-2021 Monocytes/100 WBC (Bld) 8.8 % 0-10 [facility] Work Phone: [phone] Blood platelet mean volumeon 10-21-2021 Platelet mean volume (Bld) [Entitic vol] 9.4 fL 6.2-12.0 [facility] Work Phone: [phone] Determination of erythrocyte mean corpuscular volume (MCV)on 10-21-2021 MCV (RBC) [Entitic vol] 96.6 fL 81-99 [facility] Work Phone: [phone] Hematocrit Auto (Bld) [Volum e fraction]on 10-21-2021 Hematocrit (Bld) [Volume fraction] 36.5 % 37-47 [facility] Work Phone: [phone] Laboratory - Chemistry and C hemistry - challengeon 10-21-2021 ALP [Catalytic activity/Vol] 62 U/L 45-117 [facility] Work Phone: [phone] ALT [Catalytic activity/Vol] 22 U/L 13-56 [facility] Work Phone: [phone] CO2 [Moles/Vol] 29.0 mmol/L 21.0-32.0 [facility] Work Phone: [phone] Free T4 [Mass/Vol] 1.08 ng/dL 0.76-1.46 [facility] Work Phone: [phone] Globulin (S) [Mass/Vol] 3.9 g/dL 2.2-4.2 [facility] Work Phone: [phone] Urea nitrogen/Creatinine [Mass ratio] 12.0 mg/mg 10-20 [facility] Work Phone: [phone] Laboratory - Hematology and Cell countson 10-21-2021 Erythrocyte distribution width (RBC) [Entitic vol] 46.0 fL 35.1-43.9 [facility] Work Phone: [phone] Erythrocyte distribution width (RBC) [Ratio] 13.1 % 11.6-14.6 [facility] Work Phone: [phone] Immature granulocytes/100 WBC (Bld) 0.300 % 0.0-0.9 [facility] Work Phone: Comment on above: IG% - Immature Granu locytes (promyelocytes, myelocytes and metamyelocytes) > 1% indicates that a LEFT SHIFT is Present. MCH (RBC) [Entitic mass] 30.7 pg 27.0-32.0 [facility] Work Phone: Nucleated RBC/100 WBC (Bld) [Ratio] 0 % 0-5 [facility] Work Phone: MCHC Auto (RBC) [Mass/Vol]on 10-21-2021 MCHC (RBC) [Mass/Vol] 31.8 g/dL 32-36 [facility] Work Phone: No Panel Informationon 10-21 Estimated GFR (MDRD) Amer 98 mL/min >60 [facility] Work Phone: Comment on above: GFR Calc Estimated GFR (MDRD) Non-Af Amer 81 mL/min >60 [facility] Work Phone: Comment on above: Non- GFR Calc Thyroid Stimulating Hormone (TSH) 0.15 uIU/mL 0.358-3.74 [facility] Work Phone: Platelets bldon 10-21-2021 Platelets (Bld) [#/Vol] 306 10*3/uL 150-450 [facility] Work Phone: Serum or plasma albumin sancho urement (mass/volume)on 10-21-2021 Albumin [Mass/Vol] 3.4 g/dL 3.2-5.0 [facility] Work Phone: Serum or plasma albumin/glob ulin mass ratioon 10-21-2021 Albumin/Globulin [Mass ratio] 0.9 {ratio} 0.9-2.4 [facility] Work Phone: Serum or plasma calcium sancho urement (mass/volume)on 10-21-2021 Calcium [Mass/Vol] 9.2 mg/dL 8.5-10.1 [facility] Work Phone: Serum or plasma creatinine m easurement (mass/volume)on 10-21-2021 Creatinine [Mass/Vol] 0.83 mg/dL 0.55-1.02 [facility] Work Phone: Comment on above: The validity of the calculated GFR & GFRAA in patients over 70 years has not been determined. Clinical correlation is essential. Serum or plasma urea nitroge n measurement (mass/volume)on 10-21-2021 Urea nitrogen [Mass/Vol] 10 mg/dL 7-18 [facility] Work Phone: Thin prep Papanicolaou smear with manual screeningon 10-21-2021 Thin prep Papanicolaou smear with manual screening 13 U/L 15-37 [facility] Work Phone: Thin prep Papanicolaou smear with manual screening 3 5-15 [facility] Work Phone: Bilirubin Test strip Ql (U)o n 09-14-2021 Bilirubin Ql (U) Negative Negative [facility] Work Phone: Ketones Test strip Ql (U)on 09-14-2021 Ketones Ql (U) Negative Negative [facility] Work Phone: Nitrite Test strip Ql (U)on 09-14-2021 Nitrite Ql (U) Negative Negative [facility] Work Phone: Protein Test strip Ql (U)on 09-14-2021 Protein Ql (U) Negative Negative [facility] Work Phone: Urine blood detectionon 03-0 RBC Ql (U) Negative Negative [facility] Work Phone: Urine clarityon 09-14-2021 Clarity (U) Clear Clear [facility] Work Phone: Urine color determinationon 09-14-2021 Color (U) Yellow Yellow [facility] Work Phone: Urine creatinine measurement (mass/volume)on 09-14-2021 Creatinine (U) [Mass/Vol] 20.20 mg/dL NO RANGE EST. [facility] Work Phone: Urine glucose detectionon Glucose Ql (U) Normal mg/dl Normal [facility] Work Phone: Urine leukocyte esterase det ection by dipstickon 09-14-2021 Leukocyte esterase Test strip Ql (U) Negative Negative [facility] Work Phone: Urine pHon 09-14-2021 pH (U) 7.0 [pH] 5.0 - 8.0 [facility] Work Phone: Urine protein measurement (m ass/volume)on 09-14-2021 Protein (U) [Mass/Vol] mg/dL 0.0-11.8 [facility] Work Phone: Urine specific gravity measu rementon 09-14-2021 Specific gravity (U) [Rel density] 1.005 1.002-1.030 [facility] Work Phone: Urobilinogen Auto test strip Ql (U)on 09-14-2021 Urobilinogen Ql (U) Normal mg/dl Normal [facility] Work Phone: [phone] Absolute lymphocyte counton 09-13-2021 Lymphocytes Auto (Unsp spec) [#/Vol] 1.48 10*3/uL 0.83-4.51 [facility] Work Phone: Basophil percentageon 2021 Basophil percentage 4.7 AI 0.0-0.9 [facility] Work Phone: Basophil percentage < 0.2 AI 0.0-0.9 [facility] Work Phone: Basophils/100 WBC (Bld) 0.7 % 0-1 [facility] Work Phone: Bilirubin [Mass/Vol] 0.30 mg/dL 0.20-1.00 [facility] Work Phone: [phone] Comment on above: For patients on eltr ombopag therapy, use of Dimension [place] TBIL is not recommended. Chloride [Moles/Vol] 105 mmol/L 98-107 [facility] Work Phone: Eosinophils/100 WBC (Bld) 1.8 % 0-5 [facility] Work Phone: Glucose [Mass/Vol] 96 mg/dL 74-106 [facility] Work Phone: Neutrophils (Bld) [#/Vol] 3.9 10*3/uL 2.0-7.7 [facility] Work Phone: Neutrophils/100 WBC (Bld) 64.9 % 47-70 [facility] Work Phone: Potassium [Moles/Vol] 3.9 mmol/L 3.5-5.1 [facility] Work Phone: Protein [Mass/Vol] 7.4 g/dL 6.4-8.2 [facility] Work Phone: Sodium [Moles/Vol] 139 mmol/L 136-145 [facility] Work Phone: WBC (Bld) [#/Vol] 6.0 10*3/uL 4.4-11.0 [facility] Work Phone: Blood erythrocytes count (nu mber/volume)on 09-13-2021 RBC (Bld) [#/Vol] 3.76 10*6/uL 4.2-5.4 [facility] Work Phone: Blood hemoglobin measurement (mass/volume)on 09-13-2021 Hemoglobin (Bld) [Mass/Vol] 11.7 g/dL 12.0-15.0 [facility] Work Phone: Blood lymphocytes/100 leukoc yteson 09-13-2021 Lymphocytes/100 WBC (Bld) 24.7 % 19-41 [facility] Work Phone: Blood monocytes/100 leukocyt eson 09-13-2021 Monocytes/100 WBC (Bld) 7.7 % 0-10 [facility] Work Phone: Blood platelet mean volumeon 09-13-2021 Platelet mean volume (Bld) [Entitic vol] 9.3 fL 6.2-12.0 [facility] Work Phone: Grupo 09-13-2021 [facility] Office Visit (RHBATH ) ALMA ADEN ([id number]) 1980 F Date Time Provider Department 09/13/21 [...] the mornings and evenings. 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 Swelling in hands towards the end of [...] why weight (more content not included)... Normal [facility] CNPEnedina 09-13-2021 [facility] Telephone (RULTTB) ALMA ADEN ([id number]) 1980 F Date Time Provider Department 09/13/21 MOSES MACIAS During your visit today, we recorded the [...] exam. No answer, left VM, 2nd attempt. Moses Macias PSS 09/15/2021 8:54 AM Signed Called patient on [...] acquired [E03.9] 07/26/2018 Encounter Status:Closed by MOSES MACIAS on 09/15/21 Normal [facility] Determination of erythrocyte mean corpuscular volume (MCV)on 09-13-2021 MCV (RBC) [Entitic vol] 95.2 fL 81-99 [facility] Work Phone: Hematocrit Auto (Bld) [Volum e fraction]on 09-13-2021 Hematocrit (Bld) [Volume fraction] 35.8 % 37-47 [facility] Work Phone: Iron measurement (mass/mass) on 09-13-2021 Iron (Unsp spec) [Mass/Mass] 65 ug/dL 50-170 [facility] Work Phone: Laboratory - Chemistry and C hemistry - challengeon 09-13-2021 ALP [Catalytic activity/Vol] 64 U/L 45-117 [facility] Work Phone: [phone] ALT [Catalytic activity/Vol] 25 U/L 13-56 [facility] Work Phone: [phone] CK [Catalytic activity/Vol] 62 U/L 26-192 [facility] Work Phone: CO2 [Moles/Vol] 29.0 mmol/L 21.0-32.0 [facility] Work Phone: Cobalamin (Vitamin B12) [Mass/Vol] 405 pg/mL 211-911 [facility] Work Phone: Globulin (S) [Mass/Vol] 3.8 g/dL 2.2-4.2 [facility] Work Phone: Urea nitrogen/Creatinine [Mass ratio] 14.5 mg/mg 10-20 [facility] Work Phone: Laboratory - Hematology and Cell countson 09-13-2021 Erythrocyte distribution width (RBC) [Entitic vol] 47.2 fL 35.1-43.9 [facility] Work Phone: Erythrocyte distribution width (RBC) [Ratio] 13.5 % 11.6-14.6 [facility] Work Phone: Immature granulocytes/100 WBC (Bld) 0.200 % 0.0-0.9 [facility] Work Phone: Comment on above: IG% - Immature Granu locytes (promyelocytes, myelocytes and metamyelocytes) > 1% indicates that a LEFT SHIFT is Present. MCH (RBC) [Entitic mass] 31.1 pg 27.0-32.0 [facility] Work Phone: Nucleated RBC/100 WBC (Bld) [Ratio] 0 % 0-5 [facility] Work Phone: MCHC Auto (RBC) [Mass/Vol]on 09-13-2021 MCHC (RBC) [Mass/Vol] 32.7 g/dL 32-36 [facility] Work Phone: No Panel Informationon 09-13 Anti-Gliadin IgA Antibody 4 units 0-19 [facility] Work Phone: Comment on above: Negative 0 - 19 Weak Positive 20 - 30 Moderate to Strong Positive >30 Anti-Gliadin IgG Antibody 2 units 0-19 [facility] Work Phone: Comment on above: Negative 0 - 19 Weak Positive 20 - 30 Moderate to Strong Positive >30 Estimated GFR (MDRD) Amer 121 mL/min >60 [facility] Work Phone: Comment on above: GFR Calc Estimated GFR (MDRD) Non-Af Amer 100 mL/min >60 [facility] Work Phone: Comment on above: Non- GFR Calc [employer]TRA[employer]UDIO PHOTOGRAPHER Antibody 0.4 AI 0.0-0.9 [facility] Work Phone: Tissue Transglutaminase IgG Ab <2 U/mL 0-5 [facility] Work Phone: Comment on above: Negative 0 - 5 Weak Positive 6 - 9 Positive >9Performed at: [employer] [address] [id number] Director: Levi Covarrubias PhD, Phone: [phone] at: [facility] [employer] [id number] Director: Joyce Tatum MD, Phone: [phone] Total Iron Binding Capacity 386 ug/dL 250-450 [facility] Work Phone: Vitamin D 25-Hydroxy 25.3 ng/mL [facility] Work Phone: Comment on above: Vitamin D 25(OH) Sta tus Range Deficiency <20 ng/mL (50nmol/L) Insufficiency 20 - 30 ng/mL (50 - 75 nmol/L) Sufficiency 30 - 100 ng/mL (75 - 250 nmol/L) Toxicity >100 ng/mL (>250 nmol/L) Platelets bldon 09-13-2021 Platelets (Bld) [#/Vol] 317 10*3/uL 150-450 [facility] Work Phone: Serum DNA double strand anti body assay (units/volume)on 09-13-2021 DNA double strand Ab Qn (S) 1 [IU]/mL 0-9 [facility] Work Phone: Comment on above: Negative <5 Equivoca l 5 - 9 Positive >9 Serum Humphries extractable nucl ear antibody detectionon 09-13-2021 Humphries extractable nuclear Ab Ql (S) <0.2 AI 0.0-0.9 [facility] Work Phone: Serum cyclic citrullinated p eptide IgG antibody assay (units/volume)on 09-13-2021 Cyclic citrullinated peptide IgG Qn 7 units 0-19 [facility] Work Phone: Comment on above: Negative <20 Weak po sitive 20 - 39 Moderate positive 40 - 59 Strong positive >59 Serum nuclear antibody titer by immunofluorescenceon 09-13-2021 Nuclear Ab IF (S) [Titer] Negative . [facility] Work Phone: Comment on above: Negative <1:80 Borde rline 1:80 Positive >1:80ICAP nomenclature: AC-0For more information about Hep-[address] LUKE'S HOSPITALpatterns.org, the official website for theInternational Consensus on Antinuclear Antibody (SHAWANDA)Patterns (ICAP).Performed at: [place] [id number] Director: Levi Covarrubias PhD, Phone: [phone] Serum or plasma albumin sancho urement (mass/volume)on 09-13-2021 Albumin [Mass/Vol] 3.6 g/dL 3.2-5.0 [facility] Work Phone: Serum or plasma albumin/glob ulin mass ratioon 09-13-2021 Albumin/Globulin [Mass ratio] 0.9 {ratio} 0.9-2.4 [facility] Work Phone: Serum or plasma calcium sancho urement (mass/volume)on 09-13-2021 Calcium [Mass/Vol] 9.5 mg/dL 8.5-10.1 [facility] Work Phone: Serum or plasma creatinine m easurement (mass/volume)on 09-13-2021 Creatinine [Mass/Vol] 0.69 mg/dL 0.55-1.02 [facility] Work Phone: Comment on above: The validity of the calculated GFR & GFRAA in patients over 70 years has not been determined. Clinical correlation is essential. Serum or plasma ferritin vinayak surement (mass/volume)on 09-13-2021 Ferritin [Mass/Vol] 38 ng/mL 8-252 [facility] Work Phone: Serum or plasma iron saturat ion measurement (mass fraction)on 09-13-2021 Iron saturation [Mass fraction] 16.8 % 15.0-55.0 [facility] Work Phone: Serum or plasma urea nitroge n measurement (mass/volume)on 09-13-2021 Urea nitrogen [Mass/Vol] 10 mg/dL 7-18 [facility] Work Phone: Serum rheumatoid factor dete ctionon 09-13-2021 Rheumatoid factor Ql (S) < 10.0 IU/mL <15 [facility] Work Phone: Serum tissue transglutaminas e IgA antibody assay (units/volume)on 09-13-2021 tTG IgA Qn (S) <2 U/mL 0-3 [facility] Work Phone: Comment on above: Negative 0 - 3 Weak Positive 4 - 10 Positive >10 Tissue Transglutaminase (tTG) has been identified as the endomysial antigen. Studies have demonstr- ated that endomysial IgA antibodies have over 99% specificity for gluten sensitive enteropathy. Thin prep Papanicolaou smear with manual screeningon 09-13-2021 Thin prep Papanicolaou smear with manual screening 16 U/L 15-37 [facility] Work Phone: Thin prep Papanicolaou smear with manual screening 5 5-15 [facility] Work Phone: Laboratory - Hematology and Cell countson 08-19-2021 HbA1c (Bld) [Mass fraction] 5.7 % [facility] Work Phone: Absolute lymphocyte counton 07-26-2021 Lymphocytes Auto (Unsp spec) [#/Vol] 2.10 10*3/uL 0.83-4.51 [facility] Work Phone: Basophil percentageon 2021 Basophils/100 WBC (Bld) 0.5 % 0-1 [facility] Work Phone: Bilirubin [Mass/Vol] 0.40 mg/dL 0.20-1.00 [facility] Work Phone: Comment on above: For patients on eltr ombopag therapy, use of Dimension [place] TBIL is not recommended. Chloride [Moles/Vol] 104 mmol/L 98-107 [facility] Work Phone: Eosinophils/100 WBC (Bld) 2.9 % 0-5 [facility] Work Phone: Glucose [Mass/Vol] 100 mg/dL 74-106 [facility] Work Phone: Comment on above: Fasting Glucose resu lt from 100 to 125 mg/dL suggests IMPAIRED HOMEOSTASIS per A.D.A. criteria.Please note revised GLUCOSE reference range effective 2017. Neutrophils (Bld) [#/Vol] 4.6 10*3/uL 2.0-7.7 [facility] Work Phone: Neutrophils/100 WBC (Bld) 61.0 % 47-70 [facility] Work Phone: Potassium [Moles/Vol] 3.7 mmol/L 3.5-5.1 [facility] Work Phone: Protein [Mass/Vol] 7.8 g/dL 6.4-8.2 [facility] Work Phone: Sodium [Moles/Vol] 138 mmol/L 136-145 [facility] Work Phone: WBC (Bld) [#/Vol] 7.5 10*3/uL 4.4-11.0 [facility] Work Phone: Blood erythrocytes count (nu mber/volume)on 07-26-2021 RBC (Bld) [#/Vol] 3.88 10*6/uL 4.2-5.4 [facility] Work Phone: Blood hemoglobin measurement (mass/volume)on 07-26-2021 Hemoglobin (Bld) [Mass/Vol] 11.7 g/dL 12.0-15.0 [facility] Work Phone: Blood lymphocytes/100 leukoc yteson 07-26-2021 Lymphocytes/100 WBC (Bld) 28.1 % 19-41 [facility] Work Phone: Blood monocytes/100 leukocyt eson 07-26-2021 Monocytes/100 WBC (Bld) 7.0 % 0-10 [facility] Work Phone: Blood platelet mean volumeon 07-26-2021 Platelet mean volume (Bld) [Entitic vol] 9.3 fL 6.2-12.0 [facility] Work Phone: Determination of erythrocyte mean corpuscular volume (MCV)on 07-26-2021 MCV (RBC) [Entitic vol] 94.8 fL 81-99 [facility] Work Phone: Hematocrit Auto (Bld) [Volum e fraction]on 07-26-2021 Hematocrit (Bld) [Volume fraction] 36.8 % 37-47 [facility] Work Phone: [phone] Laboratory - Chemistry and C hemistry - challengeon 07-26-2021 ALP [Catalytic activity/Vol] 71 U/L 45-117 [facility] Work Phone: ALT [Catalytic activity/Vol] 21 U/L 13-56 [facility] Work Phone: CO2 [Moles/Vol] 26.0 mmol/L 21.0-32.0 [facility] Work Phone: [phone] Globulin (S) [Mass/Vol] 4.2 g/dL 2.2-4.2 [facility] Work Phone: [phone] Urea nitrogen/Creatinine [Mass ratio] 12.2 mg/mg 10-20 [facility] Work Phone: Laboratory - Hematology and Cell countson 07-26-2021 Erythrocyte distribution width (RBC) [Entitic vol] 47.2 fL 35.1-43.9 [facility] Work Phone: Erythrocyte distribution width (RBC) [Ratio] 13.7 % 11.6-14.6 [facility] Work Phone: Immature granulocytes/100 WBC (Bld) 0.500 % 0.0-0.9 [facility] Work Phone: [phone] Comment on above: IG% - Immature Granu locytes (promyelocytes, myelocytes and metamyelocytes) > 1% indicates that a LEFT SHIFT is Present. MCH (RBC) [Entitic mass] 30.2 pg 27.0-32.0 [facility] Work Phone: Nucleated RBC/100 WBC (Bld) [Ratio] 0 % 0-5 [facility] Work Phone: MCHC Auto (RBC) [Mass/Vol]on 07-26-2021 MCHC (RBC) [Mass/Vol] 31.8 g/dL 32-36 [facility] Work Phone: No Panel Informationon 07-26 Estimated GFR (MDRD) Amer 113 mL/min >60 [facility] Work Phone: Comment on above: GFR Calc Estimated GFR (MDRD) Non-Af Amer 93 mL/min >60 [facility] Work Phone: Comment on above: Non- GFR Calc Platelets bldon 07-26-2021 Platelets (Bld) [#/Vol] 310 10*3/uL 150-450 [facility] Work Phone: Serum or plasma albumin sancho urement (mass/volume)on 07-26-2021 Albumin [Mass/Vol] 3.6 g/dL 3.2-5.0 [facility] Work Phone: Serum or plasma albumin/glob ulin mass ratioon 07-26-2021 Albumin/Globulin [Mass ratio] 0.9 {ratio} 0.9-2.4 [facility] Work Phone: Serum or plasma calcium sancho urement (mass/volume)on 07-26-2021 Calcium [Mass/Vol] 9.8 mg/dL 8.5-10.1 [facility] Work Phone: Serum or plasma creatinine m easurement (mass/volume)on 07-26-2021 Creatinine [Mass/Vol] 0.74 mg/dL 0.55-1.02 [facility] Work Phone: Comment on above: The validity of the calculated GFR & GFRAA in patients over 70 years has not been determined. Clinical correlation is essential. Serum or plasma urea nitroge n measurement (mass/volume)on 07-26-2021 Urea nitrogen [Mass/Vol] 9 mg/dL 7-18 [facility] Work Phone: Thin prep Papanicolaou smear with manual screeningon 07-26-2021 Thin prep Papanicolaou smear with manual screening 14 U/L 15-37 [facility] Work Phone: Thin prep Papanicolaou smear with manual screening 8 5-15 [facility] Work Phone: Hepatitis C RNA by PCRon Hepatitis C RNA by PCR SEE BELOW Normal [facility] Comment on above: Result Comment: Hepa titis C RNA SEE BELOW IU/mLHCV RNA not detected by PCR.Reference Range: Negative for HCV RNAThe Linear Range of this assay is 15 IU/mL to 100,000,000 IU/mL.Performing Laboratory:[facility] [id number] [place] [address] Performed By: #### S URG ####[place] [address] Syphilis IgG with Confon Syphilis IgG with Conf SEE BELOW Normal [facility] Comment on above: Result Comment: Syph [...] Not IndicatedSyphilis Interpretati SEE BELOWTest Not IndicatedPerforming Laboratory:[place] [address] [place] [address] Performed By: #### S URG ####[place] [address] HIV Screenon 07-05-2017 HIV Screen Negative Normal Nonreactive [facility] Comment on above: Performed By: #### S URG ####[place] [address] Hep. B Surface Agon 07-05-20 Hep.B Surface Ag Negative Normal Negative [facility] Comment on above: Performed By: #### S URG ####[place] [address] Hepatitis C Antibodyon 07-05 Hepatitis C Ab Negative Normal Negative [facility] Comment on above: Performed By: #### S URG ####[place] [address] Ferritinon 07-04-2017 Ferritin 8.30 ng/mL Normal 8.00-252.00 [facility] Comment on above: Performed By: #### S URG ####[place] [address] Iron Binding Cap.on 07-04-20 Iron Binding Cap. 356 ug/dL Normal 250-450 [facility] Comment on above: Performed By: #### S URG ####[place] [address] Iron Serumon 07-04-2017 Iron Serum 44 ug/dL Low 50-170 [facility] Comment on above: Performed By: #### S URG ####[place] [address] Basic Panelon 04-27-2017 Creatinine 0.98 mg/dL High 0.51-0.95 [facility] Comment on above: Performed By: #### S URG ####[place] [address] Anion gap 11 mmol/L Normal 8-16 [facility] Comment on above: Performed By: #### S URG ####[place] [address] CO2 26 mmol/L Normal 21-32 [facility] Comment on above: Performed By: #### S URG ####[place] [address] Glucose mass conc 99 mg/dL Normal 70-99 [facility] Comment on above: Performed By: #### S URG ####[address] [address] Urea nitrogen 12 mg/dL Normal 7-18 [facility] Comment on above: Performed By: #### S URG ####[address] [address] Calcium 9.1 mg/dL Normal 8.5-10.1 [facility] Comment on above: Performed By: #### S URG ####[address] [address] Chloride 103 mmol/L Normal 98-107 [facility] Comment on above: Performed By: #### S URG ####[place] [address] Potassium molar conc 4.0 mmol/L Normal 3.5-5.1 [facility] Comment on above: Performed By: #### S URG ####[place] [address] Sodium 136 mmol/L Normal 136-145 [facility] Comment on above: Performed By: #### S URG ####[place] [address] Ferritinon 04-27-2017 Ferritin 9.90 ng/mL Normal 8.00-252.00 [facility] Comment on above: Performed By: #### S URG ####[address] [address] Hemogram/Diffon 04-27-2017 Basophils Auto #/vol (Bld) 0.06 thou/cmm Normal 0.01-0.08 [facility] Comment on above: Performed By: #### C BCD1 ####[address] [address] Basophils/100 WBC Auto (Bld) 1.0 % Normal [facility] Comment on above: Performed By: #### C BCD1 ####[address] [address] Eosinophils 0.22 thou/cmm Normal 0.00-0.31 [facility] Comment on above: Performed By: #### C BCD1 ####[address] [address] Eosinophils/100 leukocytes 3.7 % Normal [facility] Comment on above: Performed By: #### C BCD1 ####[address] [address] Erythrocyte distribution width Auto Ratio (RBC) 14.3 % Normal 11.7-14.4 [facility] Comment on above: Performed By: #### C BCD1 ####[address] [address] Erythrocytes (RBC) 3.88 mil/cmm Low 3.93-5.22 [facility] Comment on above: Performed By: #### C BCD1 ####[address] [address] Hematocrit (HCT) 35.6 % Normal 34.1-44.9 [facility] Comment on above: Performed By: #### C BCD1 ####[address] [address] Hemoglobin mass conc (Bld) 11.7 g/dL Normal 11.2-15.7 [facility] Comment on above: Performed By: #### C BCD1 ####[address] [address] Immature Grans 0.20 % Normal [facility] Comment on above: Performed By: #### C BCD1 ####[address] [address] Immature Grans # 0.01 thou/cmm Normal 0.00-0.05 [facility] Comment on above: Performed By: #### C BCD1 ####[address] [address] Lymphocytes 1.94 thou/cmm Normal 1.18-3.74 [facility] Comment on above: Performed By: #### C BCD1 ####[address] [address] Lymphocytes/100 leukocytes 32.3 % Normal [facility] Comment on above: Performed By: #### C BCD1 ####[facility] [place], [place] [address] MCH 30.2 pg Normal 25.6-32.2 [facility] Comment on above: Performed By: #### C BCD1 ####[address] [address] MCHC mass conc (RBC) 32.9 % Normal 31.6-34.8 [facility] Comment on above: Performed By: #### C BCD1 ####[address] [address] MCV 91.8 fL Normal 79.4-94.8 [facility] Comment on above: Performed By: #### Therese THEODORE ####[address] [address] Monocytes 0.38 thou/cmm Normal 0.27-0.70 [facility] Comment on above: Performed By: #### C EWELINA ####[address] [address] Monocytes/100 leukocytes 6.3 % Normal [facility] Comment on above: Performed By: #### C EWELINA ####[address] [address] Platelet mean volume (PMV) 10.1 fL Normal 9.4-12.3 [facility] Comment on above: Performed By: #### C EWELINA ####[address] [address] Platelets 313 thou/cmm Normal 182-369 [facility] Comment on above: Performed By: #### C BCD1 ####[address] [address] RDW SD 48.3 fl High 36.4-46.3 [facility] Comment on above: Performed By: #### C BCD1 ####[address] [address] Seg Neutrophil 56.5 % Normal [facility] Comment on above: Performed By: #### Therese BCD1 ####[address] [address] Seg. Neut.# 3.40 thou/cmm Normal 1.56-6.13 [facility] Comment on above: Performed By: #### C BCD1 ####[place] [address] WBC (Leukocytes) 6.01 thou/cmm Normal 3.98-10.04 [facility] Comment on above: Performed By: #### C BCD1 ####[place] [address] Iron Binding Cap.on 04-27-20 17 Iron Binding Cap. 388 ug/dL Normal 250-450 [facility] Comment on above: Performed By: #### I BC ####[place] [address] Iron Serumon 04-27-2017 Iron Serum 33 ug/dL Low 50-170 [facility] Comment on above: Performed By: #### I JIMMY ####[place] [address] HPV High Riskon 04-19-2017 HPV High Risk SEE BELOW Normal [facility] Comment on above: Result Comment: HPV MRNA E6/E7 Not Detected NOT DETECTEDThis test was performed using the APTIMA(R) HPV Assay([employer]This assay detects E6/E7 viral messenger RNA (mRNA)from 14 high-risk HPV types (16,18,31,33,35,39,45,51,52,56,58,59,66,68).For additional information please refer to:http://education.Crave.com.[employer]faq/FWZ442o8(This link is being provided for informational/educational purposes only.)Test Performed by [employer],[facility],[address] [place] [id number] Brunson M.D., Ph.D., Director of [phone], [place] [id number] Performed By: #### H PVRQ ####[place] [address] HPV High Riskon 04-17-2017 Cytology Normal [facility] Comment on above: Performed By: #### H PVRQ ####[place] [address] [place] Venipunctureon 03-18 [place] Venipuncture COMPLETED Normal [facility] Comment on above: Performed By: #### M VENP ####[place] [address] TSH, 3rd generationon 2016 TSH, 3rd generation 2.080 uIU/mL Normal 0.358-3.740 [facility] Comment on above: Performed By: #### T SH3 ####[place] [address] Pap,Cyto Gynon 04-13-2017 Pap,Cyto Nuclear Scientist Test performed at [place] [address]NAME: ALAM ADEN [id number] REQUESTING: SLAVA BEYER D.O.SPECIMEN: TP CERVICAL/ENDOCERVICAL HPV REGARDLESSRelevant History:LMP: 03/28/2017SPECIMEN ADEQUACYSATISFACTORY FOR EVALUATION. ENDOCERVICAL/TRANSFORMATION ZONECOMPONENTS PRESENT.INTERPRETATION/RESU LTNEGATIVE FOR INTRAEPITHELIAL LESION OR MALIGNANCY.ANCILLARY TESTINGHPV mRNA E6/E7 - Not Detected for HIGH RISK HPV. Please see additionalreport from [employer].Electronically signed: 04/19/2017Screened by: LEAH ALARCON(ASCP)Signed Out by: [...] 19, 2017 Page 1 of 1 Normal [facility] Comment on above: Performed By: #### C YTOP ####[place] [address] OPERATIVE REPORTon 7 OPERATIVE REPORT [facility] Operative ReportSURGEON: Tony Alvarez MDALMA ADEN MMRN: [id number] ACCTNUM: [id number] OF SURGERY: 02/06/2017DATE OF : 1980 SEX/AGE: F/36[facility] DATE: 02/06/2017DATE OF SURGERY: 02/06/2017SURGEON: CAROL [...] recovery in stable condition. [address] [place] [address] Operative ReportPATIENT NAME: ALMA ADEN [facility]#: [id number] ACCTNUM: [id number] her findings with significant gastritis with a small gastric ulcer, I would increase her proton pump inhibitortherapy twice daily and also add Carafate therapy. I would like to re-scope her in 6 to 8 weeks time to reassessfor active peptic ulcer disease as this is a contraindication to bariatric surgery. Signed: Nando ALSTON MD 02/15/2017 10:05 EDTCD:modlD: 02/06/2017 12:37:52T: 02/06/2017 23:44:54Job #: [id number] Page 2 of 1 Normal [facility] OPERATIVE REPORT PDF Normal [facility] Surgical Tissue Examon 02-06 Surgical Tissue Exam Test performed at A [address] [address]NXCG: ALMA ADEN [id number] REQUESTING: TONY ALVAREZ MDFINAL DIAGNOSIS:A) GASTRIC ANTRUM, [...] 15:58PRINTED: 02/07/2017 Page 1 of 1 Normal [facility] Comment on above: Performed By: #### S URG ####[facility] [place], [place] [address] Urine HCG, Qual.on 7 HCG.beta subunit ( test) Ql (U) Negative Normal Negative [facility] Comment on above: Performed By: #### H CGUR ####[facility] [place], [place] [address] Specific [place], Ur 1.016 Normal 1.005-1.030 [facility] Comment on above: Performed By: #### H CGUR ####[address] [address] Clostridium difficile detect ion by polymerase chain reaction C. difficile DNA TERESA+probe Ql (Unsp spec) [facility] Work Phone: EP Panel Gastrointestinal pathogens panel TERESA+probe (Stl) [facility] Work Phone: No Panel Information Enteric Bacteriology [facility] Work Phone: Vital Signs Date Time Vital Sign Value Performing Clinician Faci lity 01-21-2025 12:40-0400 Body height 172.[address] Wyatt Marcelo MD Work Phone: [facility] 01-21-2025 12:40-0400 Body temperature 95.6 [degF] Dr. Wyatt Marcelo MD Work Phone: [facility] 01-21-2025 12:40-0400 Diastolic blood pressure 80 mm[Hg] Dr. Wyatt Marcelo MD Work Phone: [facility] 01-21-2025 12:40-0400 Heart rate 86 /min Dr. Wyatt Marcelo MD Work Phone: [facility] 01-21-2025 12:40-0400 Respiratory rate 16 /min Dr. Wyatt Marcelo MD Work Phone: [facility] 01-21-2025 12:40-0400 SaO2% (BldA) [Mass fraction] 97 % Dr. Wyatt Marcelo MD Work Phone: [facility] 01-21-2025 12:40-0400 Systolic blood pressure 132 mm[Hg] Dr. Wyatt Marcelo MD Work Phone: [facility] 01-16-2025 07:29-0400 Body temperature 97 [degF] Dr. Wyatt Marcelo MD Work Phone: [facility] 01-16-2025 07:29-0400 Diastolic blood pressure 79 mm[Hg] Dr. Wyatt Marcelo MD Work Phone: [facility] 01-16-2025 07:29-0400 Heart rate 73 /min Dr. Wyatt Marcelo MD Work Phone: [facility] 01-16-2025 07:29-0400 Respiratory rate 16 /min Dr. Wyatt Marcelo MD Work Phone: [facility] 01-16-2025 07:29-0400 SaO2% (BldA) [Mass fraction] 99 % Dr. Wyatt Marcelo MD Work Phone: [facility] 01-16-2025 07:29-0400 Systolic blood pressure 128 mm[Hg] Dr. Wyatt Marcelo MD Work Phone: [facility] 01-16-2025 05:54-0400 Body height 172.[address] Wyatt Marcelo MD Work Phone: [facility] 01-16-2025 05:54-0400 Body mass index (BMI) [Ratio] 59.5 kg/m2 Dr. Wyatt Marcelo MD Work Phone: [facility] 01-16-2025 05:54-0400 Body weight 177.[address] Wyatt Marcelo MD Work Phone: [facility] 01-07-2025 11:26-0400 Body height 172.[address] Wyatt Marcelo MD Work Phone: [facility] 01-07-2025 11:26-0400 Body mass index (BMI) [Ratio] 58.8 kg/m2 Dr. Wyatt Marcelo MD Work Phone: [facility] 01-07-2025 11:26-0400 Body weight 175.[address] Wyatt Marcelo MD Work Phone: [facility] 01-07-2025 11:26-0400 Diastolic blood pressure 86 mm[Hg] Dr. Wyatt Marcelo MD Work Phone: [facility] 01-07-2025 11:26-0400 Heart rate 80 /min Dr. Wyatt Marcelo MD Work Phone: [facility] 01-07-2025 11:26-0400 SaO2% (BldA) [Mass fraction] 97 % Dr. Wyatt Marcelo MD Work Phone: [facility] 01-07-2025 11:26-0400 Systolic blood pressure 139 mm[Hg] Dr. Wyatt Marcelo MD Work Phone: [facility] 10-23-2024 16:47-0400 Body height 172.[address] Wyatt Marcelo MD Work Phone: [facility] 10-23-2024 16:47-0400 Body temperature 96.1 [degF] Dr. Wyatt Marcelo MD Work Phone: [facility] 10-23-2024 16:47-0400 Diastolic blood pressure 78 mm[Hg] Dr. Wyatt Marcelo MD Work Phone: [facility] 10-23-2024 16:47-0400 Heart rate 81 /min Dr. Wyatt Marcelo MD Work Phone: [facility] 10-23-2024 16:47-0400 Respiratory rate 16 /min Dr. Wyatt Marcelo MD Work Phone: [facility] 10-23-2024 16:47-0400 SaO2% (BldA) [Mass fraction] 95 % Dr. Wyatt Marcelo MD Work Phone: [facility] 10-23-2024 16:47-0400 Systolic blood pressure 136 mm[Hg] Dr. Wyatt Marcelo MD Work Phone: [facility] 08-31-2024 12:26-0500 Body temperature 98.3 [degF] Dr. Wyatt Marcelo MD Work Phone: [facility] 08-31-2024 12:26-0500 Diastolic blood pressure 70 mm[Hg] Dr. Wyatt Marcelo MD Work Phone: [facility] 08-31-2024 12:26-0500 Heart rate 88 /min Dr. Wyatt Marcelo MD Work Phone: [facility] 08-31-2024 12:26-0500 Respiratory rate 12 /min Dr. Wyatt Marcelo MD Work Phone: [facility] 08-31-2024 12:26-0500 SaO2% (BldA) [Mass fraction] 98 % Dr. Wyatt Marcelo MD Work Phone: [facility] 08-31-2024 12:26-0500 Systolic blood pressure 118 mm[Hg] Dr. Wyatt Marcelo MD Work Phone: [facility] 08-31-2024 11:33-0500 Body height 172.[address] Wyatt Marcelo MD Work Phone: [facility] 10-12-2023 15:39-0400 Body height 172.[address] Wyatt Marcelo Work Phone: [facility] 10-12-2023 15:39-0400 Body mass index (BMI) [Ratio] 57.3 kg/m2 Dr. Wyatt Marcelo Work Phone: [facility] 10-12-2023 15:39-0400 Body temperature 97.8 [degF] Dr. Wyatt Marcelo Work Phone: [facility] 10-12-2023 15:39-0400 Body weight [address] Wyatt Marcelo Work Phone: [facility] 10-12-2023 15:39-0400 Respiratory rate 17 /min Dr. Wyatt Marcelo Work Phone: [facility] 10-12-2023 15:39-0400 SaO2% (BldA) [Mass fraction] 97 % Dr. Wyatt Marcelo Work Phone: [facility] 10-03-2023 08:32-0400 Body height 172.[address] Wyatt Marcelo Work Phone: [facility] 10-03-2023 08:32-0400 Body mass index (BMI) [Ratio] 57.4 kg/m2 Dr. Wyatt Marcelo Work Phone: [facility] 10-03-2023 08:32-0400 Body temperature 97.3 [degF] Dr. Wyatt Marcelo Work Phone: [facility] 10-03-2023 08:32-0400 Body weight 171.[address] Wyatt Marcelo Work Phone: [facility] 10-03-2023 08:32-0400 Diastolic blood pressure 90 mm[Hg] Dr. Wyatt Marcelo Work Phone: [facility] 10-03-2023 08:32-0400 Heart rate 74 /min Dr. Wyatt Marcelo Work Phone: [facility] 10-03-2023 08:32-0400 Respiratory rate 16 /min Dr. Wyatt Marcelo Work Phone: [facility] 10-03-2023 08:32-0400 SaO2% (BldA) [Mass fraction] 99 % Dr. Wyatt Marcelo Work Phone: [facility] 10-03-2023 08:32-0400 Systolic blood pressure 128 mm[Hg] Dr. Wyatt Marcelo Work Phone: [facility] 06-11-2023 10:46-0500 Diastolic blood pressure 79 mm[Hg] Dr. Wyatt Marcelo Work Phone: [facility] 06-11-2023 10:46-0500 Heart rate 80 /min Dr. Wyatt Marcelo Work Phone: [facility] 06-11-2023 10:46-0500 Respiratory rate 18 /min Dr. Wyatt Marcelo Work Phone: [facility] 06-11-2023 10:46-0500 SaO2% (BldA) [Mass fraction] 99 % Dr. Wyatt Marcelo Work Phone: [facility] 06-11-2023 10:46-0500 Systolic blood pressure 139 mm[Hg] Dr. Wyatt Marcelo Work Phone: [facility] 06-11-2023 07:45-0500 Body height 172.[address] Wyatt Marcelo Work Phone: [facility] 06-11-2023 07:45-0500 Body mass index (BMI) [Ratio] 56.2 kg/m2 Dr. Wyatt Marcelo Work Phone: [facility] 06-11-2023 07:45-0500 Body temperature 96.8 [degF] Dr. Wyatt Marcelo Work Phone: [facility] 06-11-2023 07:45-0500 Body weight 167.[address] Wyatt Marcelo Work Phone: [facility] 05-10-2023 16:30-0400 Body temperature 98.4 [degF] Dr. Wyatt Marcelo Work Phone: [facility] 05-10-2023 16:30-0400 Diastolic blood pressure 82 mm[Hg] Dr. Wyatt Marcelo Work Phone: [facility] 05-10-2023 16:30-0400 Heart rate 76 /min Dr. Wyatt Marcelo Work Phone: [facility] 05-10-2023 16:30-0400 Respiratory rate 18 /min Dr. Wyatt Marcelo Work Phone: [facility] 05-10-2023 16:30-0400 SaO2% (BldA) [Mass fraction] 97 % Dr. Wyatt Marcelo Work Phone: [facility] 05-10-2023 16:30-0400 Systolic blood pressure 126 mm[Hg] Dr. Wyatt Marcelo Work Phone: [facility] 04-26-2023 10:20-0400 Body temperature 97.4 [degF] Dr. Wyatt Marcelo Work Phone: [facility] 04-26-2023 10:20-0400 Diastolic blood pressure 80 mm[Hg] Dr. Wyatt Marcelo Work Phone: [facility] 04-26-2023 10:20-0400 Heart rate 75 /min Dr. Wyatt Marcelo Work Phone: [facility] 04-26-2023 10:20-0400 Respiratory rate 18 /min Dr. Wyatt Marcelo Work Phone: [facility] 04-26-2023 10:20-0400 SaO2% (BldA) [Mass fraction] 97 % Dr. Wyatt Marcelo Work Phone: [facility] 04-26-2023 10:20-0400 Systolic blood pressure 116 mm[Hg] Dr. Wyatt Marcelo Work Phone: [facility] 03-10-2023 16:05-0400 Body height 172.[address] Wytat Marcelo Work Phone: [facility] 03-10-2023 16:05-0400 Body temperature 97.7 [degF] Dr. Wyatt Marcelo Work Phone: [facility] 03-10-2023 16:05-0400 Diastolic blood pressure 100 mm[Hg] Dr. Wyatt Marcelo Work Phone: [facility] 03-10-2023 16:05-0400 Heart rate 72 /min Dr. Wyatt Marcelo Work Phone: [facility] 03-10-2023 16:05-0400 Respiratory rate 16 /min Dr. Wyatt Marcelo Work Phone: [facility] 03-10-2023 16:05-0400 SaO2% (BldA) [Mass fraction] 96 % Dr. Wyatt Marcelo Work Phone: [facility] 03-10-2023 16:05-0400 Systolic blood pressure 158 mm[Hg] Dr. Wyatt Marcelo Work Phone: [facility] 01-09-2023 07:39-0400 Diastolic blood pressure 99 mm[Hg] Dr. Wyatt Marcelo Work Phone: [facility] 01-09-2023 07:39-0400 Heart rate 72 /min Dr. Wyatt Marcelo Work Phone: [facility] 01-09-2023 07:39-0400 Systolic blood pressure 146 mm[Hg] Dr. Wyatt Marcelo Work Phone: [facility] 01-09-2023 05:44-0400 Body height 172.[address] Wyatt Marcelo Work Phone: [facility] 01-09-2023 05:44-0400 Body mass index (BMI) [Ratio] 55.2 kg/m2 Dr. Wyatt Marcelo Work Phone: [facility] 01-09-2023 05:44-0400 Body temperature 97.6 [degF] Dr. Wyatt Marcelo Work Phone: [facility] 01-09-2023 05:44-0400 Body weight 164.[address] Wyatt Marcelo Work Phone: [facility] 01-09-2023 05:44-0400 Respiratory rate 18 /min Dr. Wyatt Marcelo Work Phone: [facility] 01-09-2023 05:44-0400 SaO2% (BldA) [Mass fraction] 96 % Dr. Wyatt Marcelo Work Phone: [facility] 12-05-2022 08:19-0400 Body height 172.[address] Wyatt Marcelo Work Phone: [facility] 12-05-2022 08:19-0400 Body mass index (BMI) [Ratio] 54.4 kg/m2 Dr. Wyatt Marcelo Work Phone: [facility] 12-05-2022 08:19-0400 Body temperature 97.2 [degF] Dr. Wyatt Marcelo Work Phone: [facility] 12-05-2022 08:19-0400 Body weight 162.[address] Wyatt Marcelo Work Phone: [facility] 12-05-2022 08:19-0400 Diastolic blood pressure 80 mm[Hg] Dr. Wyatt Marcelo Work Phone: [facility] 12-05-2022 08:19-0400 Heart rate 87 /min Dr. Wyatt Marcelo Work Phone: [facility] 12-05-2022 08:19-0400 Respiratory rate 12 /min Dr. Wyatt Marcelo Work Phone: [facility] 12-05-2022 08:19-0400 SaO2% (BldA) [Mass fraction] 97 % Dr. Wyatt Marcelo Work Phone: [facility] 12-05-2022 08:19-0400 Systolic blood pressure 130 mm[Hg] Dr. Wyatt Marcelo Work Phone: [facility] 11-23-2022 13:44-0400 Body height 172.[address] Wyatt Marcelo Work Phone: [facility] 11-23-2022 13:44-0400 Body mass index (BMI) [Ratio] 54.4 kg/m2 Dr. Wyatt Marcelo Work Phone: [facility] 11-23-2022 13:44-0400 Body temperature 97.2 [degF] Dr. Wyatt Marcelo Work Phone: [facility] 11-23-2022 13:44-0400 Body weight 162.[address] Wyatt Marcelo Work Phone: [facility] 11-23-2022 13:44-0400 Diastolic blood pressure 83 mm[Hg] Dr. Wyatt Marcelo Work Phone: [facility] 11-23-2022 13:44-0400 Heart rate 77 /min Dr. Wyatt Marcelo Work Phone: [facility] 11-23-2022 13:44-0400 Respiratory rate 19 /min Dr. Wyatt Marcelo Work Phone: [facility] 11-23-2022 13:44-0400 SaO2% (BldA) [Mass fraction] 96 % Dr. Wyatt Marcelo Work Phone: [facility] 11-23-2022 13:44-0400 Systolic blood pressure 122 mm[Hg] Dr. Wyatt Marcelo Work Phone: [facility] 10-19-2022 13:59-0400 Body height 172.[address] Wyatt Marcelo Work Phone: [facility] 10-19-2022 13:59-0400 Body mass index (BMI) [Ratio] 54.1 kg/m2 Dr. Wyatt Marcelo Work Phone: [facility] 10-19-2022 13:59-0400 Body weight 161.[address] Wyatt Marcelo Work Phone: [facility] 10-19-2022 13:59-0400 Diastolic blood pressure 85 mm[Hg] Dr. Waytt Marcelo Work Phone: [facility] 10-19-2022 13:59-0400 Systolic blood pressure 142 mm[Hg] Dr. Wyatt Marcelo Work Phone: [facility] 09-29-2022 08:59-0400 Body height 172.[address] Wyatt Marcelo Work Phone: [facility] 09-29-2022 08:59-0400 Body temperature 96.2 [degF] Dr. Wyatt Marcelo Work Phone: [facility] 09-29-2022 08:59-0400 Diastolic blood pressure 90 mm[Hg] Dr. Wyatt Marcelo Work Phone: [facility] 09-29-2022 08:59-0400 Heart rate 70 /min Dr. Wyatt Marcelo Work Phone: [facility] 09-29-2022 08:59-0400 Respiratory rate 16 /min Dr. Wyatt Marcelo Work Phone: [facility] 09-29-2022 08:59-0400 SaO2% (BldA) [Mass fraction] 98 % Dr. Wyatt Marcelo Work Phone: [facility] 09-29-2022 08:59-0400 Systolic blood pressure 128 mm[Hg] Dr. Wyatt Marcelo Work Phone: [facility] 09-01-2022 08:52-0500 Body temperature 96.6 [degF] Dr. Wyatt Marcelo Work Phone: [facility] 09-01-2022 08:52-0500 Diastolic blood pressure 100 mm[Hg] Dr. Wyatt Marcelo Work Phone: [facility] 09-01-2022 08:52-0500 Heart rate 78 /min Dr. Wyatt Marcelo Work Phone: [facility] 09-01-2022 08:52-0500 Respiratory rate 18 /min Dr. Wyatt Marcelo Work Phone: [facility] 09-01-2022 08:52-0500 SaO2% (BldA) [Mass fraction] 96 % Dr. Wyatt Marcelo Work Phone: [facility] 09-01-2022 08:52-0500 Systolic blood pressure 146 mm[Hg] Dr. Wyatt Marcelo Work Phone: [facility] 08-15-2022 11:25-0500 Body mass index (BMI) [Ratio] 57 kg/m2 Dr. Wyatt Marcelo Work Phone: [facility] 08-15-2022 11:25-0500 Body temperature 96.7 [degF] Dr. Wyatt Marcelo Work Phone: [facility] 08-15-2022 11:25-0500 Body weight 170.[address] Wyatt Marcelo Work Phone: [facility] 08-15-2022 11:25-0500 Diastolic blood pressure 84 mm[Hg] Dr. Wyatt Marcelo Work Phone: [facility] 08-15-2022 11:25-0500 Heart rate 78 /min Dr. Wyatt Marcelo Work Phone: [facility] 08-15-2022 11:25-0500 Respiratory rate 18 /min Dr. Wyatt Marcelo Work Phone: [facility] 08-15-2022 11:25-0500 SaO2% (BldA) [Mass fraction] 96 % Dr. Wyatt Marcelo Work Phone: [facility] 08-15-2022 11:25-0500 Systolic blood pressure 117 mm[Hg] Dr. Wyatt Marcelo Work Phone: [facility] 07-01-2022 14:57-0500 Diastolic blood pressure 82 mm[Hg] Dr. Wyatt Marcelo Work Phone: [facility] 07-01-2022 14:57-0500 Respiratory rate 12 /min Dr. Wyatt Marcelo Work Phone: [facility] 07-01-2022 14:57-0500 Systolic blood pressure 144 mm[Hg] Dr. Wyatt Marcelo Work Phone: [facility] 05-06-2022 11:09-0400 Body height 172.[address] Wyatt Marcelo Work Phone: [facility] 05-06-2022 11:09-0400 Body temperature 98 [degF] Dr. Wyatt Marcelo Work Phone: [facility] 05-06-2022 11:09-0400 Diastolic blood pressure 88 mm[Hg] Dr. Wyatt Marcelo Work Phone: [facility] 05-06-2022 11:09-0400 Heart rate 66 /min Dr. Wyatt Marcelo Work Phone: [facility] 05-06-2022 11:09-0400 SaO2% (BldA) [Mass fraction] 98 % Dr. Wyatt Marcelo Work Phone: [facility] 05-06-2022 11:09-0400 Systolic blood pressure 124 mm[Hg] Dr. Wyatt Marcelo Work Phone: [facility] 03-07-2022 13:25-0400 Heart rate 84 /min Dr. Wyatt Marcelo Work Phone: [facility] Work Phone: 03-07-2022 13:25-0400 Respiratory rate 16 /min Dr. Wyatt Marcelo Work Phone: [facility] Work Phone: 03-07-2022 13:25-0400 SaO2% (BldA) [Mass fraction] 98 % Dr. Wyatt Marcelo Work Phone: [facility] Work Phone: 03-07-2022 12:10-0400 Body height 172.[address] Wyatt Marcelo Work Phone: [facility] Work Phone: 03-07-2022 12:10-0400 Body mass index (BMI) [Ratio] 55.3 kg/m2 Dr. Wyatt Marcelo Work Phone: [facility] Work Phone: 03-07-2022 12:10-0400 Body temperature 97.9 [degF] Dr. Wyatt Marcelo Work Phone: [facility] Work Phone: 03-07-2022 12:10-0400 Body weight [address] Wyatt Marcelo Work Phone: [facility] Work Phone: 03-07-2022 12:10-0400 Diastolic blood pressure 72 mm[Hg] Dr. Wyatt Marcelo Work Phone: [facility] Work Phone: 03-07-2022 12:10-0400 Systolic blood pressure 139 mm[Hg] Dr. Wyatt Marcelo Work Phone: [facility] Work Phone: 02-10-2022 07:19-0400 Body temperature 97.5 [degF] Dr. Wyatt Marcelo Work Phone: [facility] Work Phone: 02-10-2022 07:19-0400 Diastolic blood pressure 90 mm[Hg] Dr. Wyatt Marcelo Work Phone: [facility] Work Phone: 02-10-2022 07:19-0400 Heart rate 89 /min Dr. Wyatt Marcelo Work Phone: [facility] Work Phone: 02-10-2022 07:19-0400 Respiratory rate 14 /min Dr. Wyatt Marcelo Work Phone: [facility] Work Phone: 02-10-2022 07:19-0400 SaO2% (BldA) [Mass fraction] 98 % Dr. Wyatt Marcelo Work Phone: [facility] Work Phone: 02-10-2022 07:19-0400 Systolic blood pressure 146 mm[Hg] Dr. Wyatt Marcelo Work Phone: [facility] Work Phone: 11-22-2021 08:58-0400 Body height 172.[address] Wyatt Marcelo Work Phone: [facility] Work Phone: 11-22-2021 08:58-0400 Body mass index (BMI) [Ratio] 52.6 kg/m2 Dr. Wyatt Marcelo Work Phone: [facility] Work Phone: 11-22-2021 08:58-0400 Body temperature 97.1 [degF] Dr. Wyatt Marcelo Work Phone: [facility] Work Phone: 11-22-2021 08:58-0400 Body weight 156.[address] Wyatt Marcelo Work Phone: [facility] Work Phone: 11-22-2021 08:58-0400 Diastolic blood pressure 86 mm[Hg] Dr. Wyatt Marcelo Work Phone: [facility] Work Phone: 11-22-2021 08:58-0400 Heart rate 73 /min Dr. Wyatt Marcelo Work Phone: [facility] Work Phone: 11-22-2021 08:58-0400 Respiratory rate 14 /min Dr. Wyatt Marcelo Work Phone: [facility] Work Phone: 11-22-2021 08:58-0400 SaO2% (BldA) [Mass fraction] 98 % Dr. Wyatt Marcelo Work Phone: [facility] Work Phone: 11-22-2021 08:58-0400 Systolic blood pressure 134 mm[Hg] Dr. Wyatt Marcelo Work Phone: [facility] Work Phone: 10-08-2021 11:30-0400 Body mass index (BMI) [Ratio] 52.6 kg/m2 Dr. Wyatt Marcelo Work Phone: [facility] Work Phone: 10-08-2021 11:30-0400 Body temperature 97.4 [degF] Dr. Wyatt Marcelo Work Phone: [facility] Work Phone: 10-08-2021 11:30-0400 Body weight 156.[address] Wyatt Marcelo Work Phone: [facility] Work Phone: 10-08-2021 11:30-0400 Diastolic blood pressure 78 mm[Hg] Dr. Wyatt Marcelo Work Phone: [facility] Work Phone: 10-08-2021 11:30-0400 Heart rate 73 /min Dr. Wyatt Macrelo Work Phone: [facility] Work Phone: 10-08-2021 11:30-0400 Respiratory rate 14 /min Dr. Wyatt Marcelo Work Phone: [facility] Work Phone: 10-08-2021 11:30-0400 SaO2% (BldA) [Mass fraction] 97 % Dr. Wyatt Marcelo Work Phone: [facility] Work Phone: 10-08-2021 11:30-0400 Systolic blood pressure 126 mm[Hg] Dr. Wyatt Marcelo Work Phone: [facility] Work Phone: 10-08-2021 11:30-0400 Body height 172.[address] Wyatt Marcelo Work Phone: [facility] Work Phone: 10-08-2021 11:30-0400 Body mass index (BMI) [Ratio] 52.6 kg/m2 Dr. Wyatt Marcelo Work Phone: [facility] Work Phone: 10-08-2021 11:30-0400 Body temperature 97.4 [degF] Dr. Wyatt Marcelo Work Phone: [facility] Work Phone: 10-08-2021 11:30-0400 Body weight 156.[address] Wyatt Marcelo Work Phone: [facility] Work Phone: 10-08-2021 11:30-0400 Diastolic blood pressure 78 mm[Hg] Dr. Wyatt Marcelo Work Phone: [facility] Work Phone: 10-08-2021 11:30-0400 Heart rate 73 /min Dr. Wyatt Marcelo Work Phone: [facility] Work Phone: 10-08-2021 11:30-0400 Respiratory rate 14 /min Dr. Wyatt Marcelo Work Phone: [facility] Work Phone: 10-08-2021 11:30-0400 SaO2% (BldA) [Mass fraction] 97 % Dr. Wyatt Marcelo Work Phone: [facility] Work Phone: 10-08-2021 11:30-0400 Systolic blood pressure 126 mm[Hg] Dr. Wyatt Marcelo Work Phone: [facility] Work Phone: 08-19-2021 10:36-0500 Body mass index (BMI) [Ratio] 52.6 kg/m2 Dr. Wyatt Marcelo Work Phone: [facility] Work Phone: 08-19-2021 10:36-0500 Body temperature 97.2 [degF] Dr. Wyatt Marcelo Work Phone: [facility] Work Phone: 08-19-2021 10:36-0500 Body weight 156.[address] Wyatt Marcelo Work Phone: [facility] Work Phone: 08-19-2021 10:36-0500 Diastolic blood pressure 86 mm[Hg] Dr. Wyatt Marcelo Work Phone: [facility] Work Phone: 08-19-2021 10:36-0500 Heart rate 74 /min Dr. Wyatt Marcelo Work Phone: [facility] Work Phone: 08-19-2021 10:36-0500 Respiratory rate 18 /min Dr. Wyatt Marcelo Work Phone: [facility] Work Phone: 08-19-2021 10:36-0500 SaO2% (BldA) [Mass fraction] 99 % Dr. Wyatt Marcelo Work Phone: [facility] Work Phone: 08-19-2021 10:36-0500 Systolic blood pressure 124 mm[Hg] Dr. Wyatt Marcelo Work Phone: [facility] Work Phone: 07-28-2021 08:25-0500 Body mass index (BMI) [Ratio] 52.6 kg/m2 Dr. Wyatt Marcelo Work Phone: [facility] Work Phone: 07-28-2021 08:25-0500 Body temperature 98.6 [degF] Dr. Wyatt Marcelo Work Phone: [facility] Work Phone: 07-28-2021 08:25-0500 Body weight 156.[address] Wyatt Marcelo Work Phone: [facility] Work Phone: 07-28-2021 08:25-0500 Diastolic blood pressure 72 mm[Hg] Dr. Wyatt Marcelo Work Phone: [facility] Work Phone: 07-28-2021 08:25-0500 Heart rate 79 /min Dr. Wyatt Marcelo Work Phone: [facility] Work Phone: 07-28-2021 08:25-0500 Respiratory rate 14 /min Dr. Wyatt Marcelo Work Phone: [facility] Work Phone: 07-28-2021 08:25-0500 SaO2% (BldA) [Mass fraction] 97 % Dr. Wyatt Marcelo Work Phone: [facility] Work Phone: 07-28-2021 08:25-0500 Systolic blood pressure 124 mm[Hg] Dr. Wyatt Marcelo Work Phone: [facility] Work Phone: 07-01-2021 09:34-0500 Body mass index (BMI) [Ratio] 52.6 kg/m2 Dr. Wyatt Marcelo Work Phone: [facility] Work Phone: 07-01-2021 09:34-0500 Body temperature 98 [degF] Dr. Wyatt Marcelo Work Phone: [facility] Work Phone: 07-01-2021 09:34-0500 Body weight 156.[address] Wyatt Marcelo Work Phone: [facility] Work Phone: 07-01-2021 09:34-0500 Diastolic blood pressure 84 mm[Hg] Dr. Wyatt Marcelo Work Phone: [facility] Work Phone: 07-01-2021 09:34-0500 Heart rate 80 /min Dr. Wyatt Marcelo Work Phone: [facility] Work Phone: 07-01-2021 09:34-0500 Respiratory rate 18 /min Dr. Wyatt Marcelo Work Phone: [facility] Work Phone: 07-01-2021 09:34-0500 SaO2% (BldA) [Mass fraction] 98 % Dr. Wyatt Marcelo Work Phone: [facility] Work Phone: 07-01-2021 09:34-0500 Systolic blood pressure 138 mm[Hg] Dr. Wyatt Marcelo Work Phone: [facility] Work Phone: Encounters Encounter Date Encounter Type Care Provider Facility Start: 02-09-2025 End: 02-09-[address] Wyatt Marcelo MD Work Phone: -Laboratory Start: 02-09-2025 End: 02-09-[address] Wyatt Marcelo MD -Laboratory Work Phone: Start: 02-09-2025 End: 02-09-2025 ambulatory Wyatt Marcelo Facility:[facility] Start: 02-01-2025 End: 02-01-[address] Wyatt Marcelo MD Work Phone: -Laboratory Specimen Start: 02-01-2025 End: 02-01-[address] Cali Lou MD -Laboratory Specimen Work Phone: Start: 02-01-2025 End: 02-01-2025 ambulatory Cali Lou Facility:[facility] Start: 01-28-2025 End: 01-28-[address] Wyatt Marcelo MD Work Phone: -Laboratory [place] Start: 01-28-2025 End: 01-28-2025 Patient encounter procedure STEVEN BOLES MD -Laboratory [place] Work Phone: Start: 01-28-2025 End: 01-28-2025 ambulatory STEVEN BOLES Facility:[facility] Start: 01-21-2025 End: 01-21-[address] Wyatt Marcelo MD Work Phone: -Radiology [place] Start: 01-21-2025 End: 01-21-2025 Patient encounter procedure Kati Hilliard PROGRAM SERVICES ASSISTANT-C -Radiology [place] Work Phone: Start: 01-21-2025 End: 01-21-2025 Patient encounter procedure Kati Babak PROGRAM SERVICES ASSISTANT-C -[facility] Work Phone: Start: 01-21-2025 End: 01-21-[address] Wyatt Marcelo MD Work Phone: -[facility] Start: 01-21-2025 End: 01-21-2025 ambulatory Wyatt Marcelo Facility:[facility] Start: 01-16-2025 ambulatory Hammadlalito Loaiza [place] [place]: 01-16-2025 Non-patient / Non-visit Hammad Loaiza DO -[facility] Start: 01-16-2025 End: 01-16-2025 Admission to same day surgery center Hammadlalito Loaiza DO -Endoscopy Work Phone: Start: 01-16-2025 End: 01-16-[address] Wyatt Marcelo MD Work Phone: -Endoscopy Start: 01-14-2025 Non-patient / Non-visit Dr. Mary Don MD -[facility] Work Phone: Start: 01-07-2025 End: 01-07-[address] Cali Lou MD -[facility] Work Phone: Start: 01-07-2025 End: 01-07-[address] Wyatt Marcelo MD Work Phone: [facility] Work Phone: Start: 12-13-2024 End: 12-13-2024 Patient encounter procedure Irma MINER -[facility] Work Phone: Start: 12-13-2024 End: 12-13-[address] Wyatt Marcelo MD Work Phone: [facility] Work Phone: Start: 11-07-2024 End: 11-07-[address] Wyatt Marcelo MD Work Phone: [facility] Work Phone: Start: 11-07-2024 End: 11-07-2024 Patient encounter procedure STEVEN BOLES MD -Laboratory, [facility] Start: 11-07-2024 End: 11-07-2024 ambulatory STEVEN BOLES Facility:[facility] Start: 10-23-2024 End: 10-23-[address] Wyatt Marcelo MD -[facility] Work Phone: Start: 10-23-2024 End: 10-23-2024 [facility] [place] Start: 10-10-2024 End: 10-10-[address] Wyatt Marcelo MD Work Phone: [facility] Work Phone: Start: 10-10-2024 End: 10-10-[address] Wyatt Marcelo MD -Laboratory, [facility] Start: 10-10-2024 End: 10-10-2024 [facility] Start: 08-31-2024 End: 08-31-2024 Patient encounter procedure Corie STEPHEN -[facility] Work Phone: Start: 08-31-2024 End: 08-31-2024 ambulatory [facility] Facility[facility] Start: 07-23-2024 End: 07-23-2024 Patient encounter procedure STEVEN BOLES MD -Laboratory, [facility] Start: 07-23-2024 End: 07-23-2024 ambulatory STEVEN BOLES Facility:[facility] Start: 07-11-2024 End: 07-11-2024 ambulatory Nimco Gonzalez Facility:[facility] Start: 07-11-2024 Registered Zi Gonzalez PA -Physical Therapy Work Phone: Start: 06-25-2024 ambulatory Karl Lopez Facility:[facility] Start: 05-27-2024 End: 05-27-2024 ambulatory Nimco Gonzalez Facility:[facility] Start: 05-10-2024 End: 05-10-2024 ambulatory Nimco Gonzalez [place] [place] Start: 05-10-2024 End: 05-10-2024 ambulatory Nimco Gonzalez Facility:[facility] Start: 05-09-2024 End: 05-09-2024 ambulatory Nimco Lisa Facility:[facility] Start: 04-30-2024 End: 04-30-2024 ambulatory [facility] Facility:[facility] Start: 04-25-2024 Encounter for genera l adult medical examination without abnormal findings Wyatt Marcelo [facility] Start: 04-25-2024 End: 04-25-2024 ambulatory Wyatt Marcelo [place] [place] Start: 04-25-2024 ambulatory Wyatt Marcelo Facili ty:[facility] Start: 04-25-2024 ambulatory Health Risk Assessment Facility:[facility] Start: 04-02-2024 End: 04-02-2024 ambulatory [facility] Facility:[facility] Start: 04-01-2024 End: 04-01-2024 ambulatory Natdillealla [facility] Facility:[facility] Start: 03-20-2024 End: 03-20-2024 ambulatory [facility] Facility:[facility] Start: 10-17-2023 End: 10-17-[address] Wyatt Marcelo Work Phone: [facility] Work Phone: Start: 10-17-2023 End: 10-17-[address] Wyatt Marcelo Work Phone: [facility] [place] Start: 10-12-2023 End: 10-12-[address] Wyatt Marcelo Work Phone: [facility] Work Phone: Start: 10-12-2023 End: 10-12-[address] Wyatt Marcelo Work Phone: [facility] Work Phone: Start: 10-03-2023 End: 10-03-[address] Wyatt Marcelo Work Phone: [facility] Work Phone: Start: 09-08-2023 End: 09-08-[address] Wyatt Marcelo Work Phone: [facility] Work Phone: Start: 09-08-2023 End: 09-08-[address] [facility] Work Phone: Start: 08-17-2023 End: 08-17-[address] [facility] Marcel[facility] Start: 06-16-2023 End: 06-16-[address] Wyatt Marcelo Work Phone: [facility] Work Phone: Start: 06-16-2023 End: 06-16-[address] Wyatt Marcel[facility] [place] Start: 06-11-2023 End: 06-11-2023 Emergency department patient visit Dr. Wyatt Marcelo Work Phone: [facility]-Emergency Department Work Phone: Start: 05-10-[address] Wyatt Marcelo Work Phone: [facility] Start: 05-10-2023 End: 05-10-2023 Encounter for general adult medical examination without abnormal findings Dr. Wyatt Marcelo Work Phone: [facility] Start: 05-10-2023 End: 05-10-[address] Wyatt Marcelo Work Phone: [facility] Work Phone: Start: 05-09-[address] Marta Marcelo Work Phone: [facility] Start: 04-26-2023 End: 04-26-[address] Wyatt Marcelo Work Phone: [facility] Work Phone: Start: 04-26-2023 End: 04-26-[address] Wyatt Marcelo Work Phone: [facility] Work Phone: Start: 03-22-2023 End: 03-22-[address] Wyatt Marcelo Work Phone: [facility] Work Phone: Start: 03-22-2023 End: 03-22-[address] Wyatt Marcelo Work Phone: [facility] [place] Start: 03-10-2023 End: 03-10-[address] Wyatt Marcelo Work Phone: [facility] Work Phone: Start: 03-07-2023 End: 03-07-[address] Wyatt Marcelo Work Phone: [facility]-Laboratory, [place] Start: 02-15-2023 End: 02-15-[address] Wyatt Marcelo Work Phone: [facility] Work Phone: Start: 02-15-2023 End: 02-15-[address] Wyatt Marcelo Work Phone: [facility]-Ultrasound, [facility] Work Phone: Start: 02-14-2023 Non-patient / Non-visit Dr. Wyatt Marcelo Work Phone: [facility] Work Phone: Start: 02-03-2023 End: 02-03-[address] Wyatt Marcelo Work Phone: [facility] Work Phone: Start: 01-09-2023 End: 01-09-[address] Wyatt Marcelo Work Phone: [facility] Work Phone: Start: 01-09-2023 End: 01-09-[address] Wyatt Marcelo Work Phone: [facility] Work Phone: Start: 01-09-2023 End: 01-09-[address] Wyatt Marcelo Work Phone: [facility]-Pulmonary Medicine [facility] Start: 01-03-2023 End: 01-03-[address] Wyatt Marcelo Work Phone: [facility] Work Phone: Start: 01-03-2023 End: 01-03-[address] Wyatt Marcelo Work Phone: [facility] Start: 12-30-2022 End: 12-30-[address] Wyatt Marcelo Work Phone: [facility] Internal [facility] Start: 12-14-2022 End: 12-14-[address] Wyatt Marcelo Work Phone: [facility] Work Phone: Start: 12-14-2022 End: 12-14-[address] Wyatt Marcelo Work Phone: [facility] [place] Start: 12-05-2022 End: 12-05-[address] Wyatt Marcelo Work Phone: [facility] Internal [facility] Start: 12-02-2022 End: 12-02-[address] Wyatt Marcelo Work Phone: [facility] Work Phone: Start: 12-02-2022 End: 12-02-[address] Wyatt Marcelo Work Phone: [facility] Start: 11-25-2022 End: 11-25-[address] Wyatt Marcelo Work Phone: [facility] Internal Medicine Start: 11-23-2022 End: 11-23-[address] Wyatt Marcelo Work Phone: [facility] Work Phone: Start: 11-23-2022 End: 11-23-[address] Wyatt Marcel[facility] Start: 11-23-2022 End: 11-23-[address] Wyatt Marcelo Work Phone: [facility] Start: 11-22-2022 End: 11-22-[address] Wyatt Marcelo Work Phone: [facility] Work Phone: Start: 11-22-2022 End: 11-22-[address] Wyatt Marcelo Work Phone[facility] Start: 11-08-2022 End: 11-08-[address] Wyatt Marcelo Work Phone: [facility] Work Phone: Start: 11-08-2022 End: 11-08-[address] Wyatt Marcelo Work Phone: [facility]-Ultrasound, [facility] Start: 11-01-2022 End: 11-01-[address] Wyatt Marcelo Work Phone: [facility]-Laboratory, [facility] Start: 10-31-2022 End: 10-31-[address] Wyatt Marcelo Work Phone: [facility]-Outpatient Breast Imaging Start: 10-28-2022 End: 10-28-[address] Wyatt Marcelo Work Phone: [facility] Internal Medicine Start: 10-19-2022 End: 10-19-[address] Wyatt Marcelo Work Phone: [facility] Women's Care Start: 10-14-2022 End: 10-14-[address] Wyatt Marcelo Work Phone: [facility] Internal Medicine Start: 10-14-2022 Non-patient / Non-visit Dr. Wyatt Marcelo Work Phone: [facility] Internal Medicine Start: 10-13-2022 End: 10-13-[address] Wyatt Marcelo Work Phone: [facility] Work Phone: Start: 10-13-2022 End: 10-13-[address] Wyatt Marcelo Work Phone: [facility] Start: 09-30-2022 End: 09-30-[address] Wyatt Marcelo Work Phone: [facility] Internal Medicine Start: 09-29-[address] Marta Marcelo Work Phone: [facility] Start: 09-29-2022 End: 09-29-[address] Wyatt Marcelo Work Phone: [facility] Work Phone: Start: 09-29-2022 End: 09-29-[address] Wyatt Marcelo Work Phone: [facility] Internal Medicine Start: 09-01-2022 End: 09-01-[address] Wyatt Marcelo Work Phone: [facility] Internal Medicine Start: 09-01-2022 Non-patient / Non-visit Dr. Wyatt Marcelo Work Phone: [facility] Internal Medicine Start: 08-15-2022 End: 08-15-[address] Wyatt Marcelo Work Phone: [facility] Endocrinology Start: 08-04-2022 End: 08-04-[address] Wyatt Marcelo Work Phone: [facility] Work Phone: Start: 08-04-2022 End: 08-04-[address] Wyatt Marcelo Work Phone: [facility] Start: 07-01-2022 End: 07-01-[address] Wyatt Marcelo Work Phone: [facility] Internal Medicine Start: 06-24-2022 End: 06-24-[address] Wyatt Marcelo Work Phone: [facility] [place] Start: 06-13-[address] Marta Marcelo Work Phone: [facility] Start: 06-13-2022 End: 06-13-[address] Wyatt Marcelo Work Phone: [facility] Work Phone: Start: 06-13-2022 End: 06-13-[address] Wyatt Marcelo Work Phone: [facility] [place] Start: 05-06-2022 End: 05-06-2022 Encounter for general adult medical examination without abnormal findings Dr. Wyatt Marcelo Work Phone: [facility] Internal Medicine Start: 05-06-2022 End: 05-06-[address] Wyatt Marcelo Work Phone: [facility] Internal Medicine Start: 04-22-2022 End: 04-22-[address] Wyatt Marcelo Work Phone: [facility] Work Phone: Start: 04-22-2022 End: 04-22-[address] Wyatt Marcelo Work Phone: [facility] [place] Start: 03-22-2022 End: 03-22-[address] Wyatt Marcelo Work Phone: [facility] Work Phone: Start: 03-22-2022 End: 03-22-[address] Wyatt Marcel[facility] Start: 03-22-[address] Marta Marcelo Work Phone: [facility]-Employee Health Start: 03-07-2022 End: 03-07-[address] Wyatt Marcelo Work Phone: [facility]-ED Referred Start: 03-07-2022 End: 03-07-2022 Emergency department patient visit Dr. Wyatt Marcelo [facility] Start: 02-10-2022 End: 02-10-[address] Wyatt Marcelo Work Phone: [facility] Start: 01-11-2022 End: 01-11-[address] Wyatt Marcelo [facility] Start: 12-27-2021 End: 12-27-[address] Wyatt Marcelo [facility] Start: 11-22-2021 End: 11-22-[address] Wyatt Marcelo Work Phone: [facility] Internal Medicine Start: 10-21-2021 End: 10-21-[address] Wyatt Marcelo [facility] Start: 10-08-2021 End: 10-08-[address] Wyatt Marcelo Work Phone: [facility]-Cardiovascular Services Start: 10-08-2021 End: 10-08-[address] Wyatt Marcelo Work Phone: [facility] Internal Medicine Start: 09-14-2021 End: 09-14-[address] Wyatt Marcelo [facility] [place] Start: 09-13-2021 End: 09-13-[address] Wyatt Marcelo [facility] [place] Start: 08-19-2021 End: 08-19-[address] Wyatt Marcelo Work Phone: [facility] Endocrinology Start: 07-28-2021 End: 07-28-[address] Wyatt Marcelo Work Phone: [facility] Internal Medicine Start: 07-26-2021 End: 07-26-[address] Wyatt Marcelo [facility] [place] Start: 07-01-2021 End: 07-01-[address] Wyatt Marcelo [facility] Start: 02-15-[address] Wyatt Marcelo Work Phone: [facility] Start: 07-04-2017 End: 07-05-2017 Ambulatory [facility] Facility:[facility] Start: 06-20-2017 Ambulatory [facility] Start: 04-27-2017 End: 04-28-2017 Ambulatory [facility] Start: 04-14-[address] Luna y:[facility] Start: 04-13-2017 End: 04-14-2017 Ambulatory NO REFERRING Facility:[facility] Start: 04-03-2017 End: 04-04-2017 Ambulatory TONY ALVAREZ Facility:[facility] Start: 02-06-2017 End: 02-07-2017 Ambulatory TONY ALVAREZ Facility:[facility] Procedures Date Procedure Procedure Detail Performing [...] Egd transoral biopsy single/multiple EGD BIOPSY SINGLE/MULTIPLE [facility] Start: 01-16-2025 Patient discharge [facility] Start: 05-10-2023 Patient referral [facility] Work Phone: Start: 04-26-2023 Evaluation of diagno stic study results [facility] Start: 09-29-2022 Patient referral [facility] Work Phone: Start: 03-07-2022 Hepatitis B surface antigen measurement [facility] Work Phone: Start: 03-07-2022 Hepatitis C antibody measurement [facility] Work Phone: 24 hour urine calciu m output measurement [facility] Cardiovascular stres s testing [facility] Erythrocyte mean corpuscular volume determination [facility] Ferritin [Mass/volum e] in Serum or Plasma [facility] Hematocrit [Volume Fraction] of Blood [facility] Hemoglobin [Mass/vol ume] in Blood [facility] Hemoglobin A1c/Hemoglobin.total in Blood [facility] Hepatitis B surface antigen measurement [facility] Work Phone: Hepatitis B virus rodas rface IgG Ab [Presence] in Serum [facility] Work Phone: Hepatitis C antibody measurement [facility] Work Phone: HIV 1+2 Ab+HIV1 p24 Ag [Presence] in Serum or Plasma by Immunoassay [facility] Work Phone: In-vitro immunologic test [facility] Work Phone: Iron [Mass/mass] in Unspecified specimen [facility] Iron and Iron bindin g capacity panel - Serum or Plasma [facility] Leukocytes [#/volume ] in Blood [facility] Lipid 1996 panel - S rosita or Plasma [facility] Mean corpuscular hem oglobin concentration determination [facility] Mean corpuscular hem oglobin determination [facility] MG Breast - bilatera l Screening [facility] Mycobacterium tuberc ulosis tuberculin stimulated gamma interferon [Presence] in Blood [facility] Work Phone: Parathyroid hormone measurement [facility] Patient Education [facility] Work Phone: Patient referral [facility] Work Phone: Platelets [#/volume] in Blood [facility] Red blood cell count [facility] Red cell distributio n width determination [facility] Thyroid stimulating hormone measurement [facility] Vitamin B12 measurement [facility] Vitamin D, 25-hydrox y measurement [facility] Vitamin D, 25-hydrox y measurement [facility] XR Foot GE 3 Views [facility] Immunizations Immunization Date Immunization Notes Care Provider Palmira bneites 05-31-2024 influenza, seasonal, injectable, preservative free Dr. Wyatt Marcelo MD Work Phone: [facility] 04-19-2023 influenza, injectabl e, quadrivalent, preservative free Dr. Wyatt Marcelo Work Phone: [facility] 12-05-2022 tetanus toxoid, redu bassem diphtheria toxoid, and acellular pertussis vaccine, adsorbed Dr. Wyatt Marcelo Work Phone: [facility] 06-02-2022 influenza, injectabl e, quadrivalent, preservative free Dr. Wyatt Marcelo Work Phone: [facility] 06-02-2022 influenza, seasonal, injectable Dr. Wyatt Marcelo Work Phone: [facility] 07-30-2021 Covid (Moderna) Dr. Loni Marcelo Work Phone: [facility] 05-04-2021 influenza, injectabl e, quadrivalent, preservative free Dr. Wyatt Marcelo Work Phone: [facility] 05-04-2021 influenza, seasonal, injectable Dr. Wyatt Marcelo Work Phone: [facility] 05-04-2021 Seasonal, quadrivale nt, recombinant, injectable influenza vaccine, preservative free Dr. Wyatt Marcelo Work Phone: [facility] 09-21-2020 influenza, injectabl e, quadrivalent, preservative free Dr. Wyatt Marcelo Work Phone: [facility] 09-21-2020 influenza, seasonal, injectable Dr. Wyatt Marcelo Work Phone: [facility] 09-21-2020 Seasonal, quadrivale nt, recombinant, injectable influenza vaccine, preservative free Dr. Wyatt Marcelo Work Phone: [facility] 09-01-2020 Covid (Modern) Dr. Loni Marcelo Work Phone: [facility] 08-04-2020 Covid (Modern) Dr. Loni Marcelo Work Phone: [facility] 05-05-2019 influenza, injectabl e, quadrivalent, preservative free Dr. Wyatt Marcelo Work Phone: [facility] 05-05-2019 influenza, seasonal, injectable Dr. Wyatt Marcelo Work Phone: [facility] 04-13-2018 influenza, injectabl e, quadrivalent, preservative free Dr. Wyatt Marcelo Work Phone: [facility] 04-13-2018 influenza, seasonal, injectable Dr. Wyatt Marcelo Work Phone: [facility] 02-16-2018 hepatitis B vaccine, adult dosage Dr. Wyatt Marcelo Work Phone: [facility] 08-24-2017 hepatitis B vaccine, adult dosage Dr. Wyatt Marcelo Work Phone: [facility] 07-24-2017 hepatitis B vaccine, adult dosage Dr. Wyatt Marcelo Work Phone: [facility] 12-12-2016 tetanus toxoid, redu bassem diphtheria toxoid, and acellular pertussis vaccine, adsorbed Dr. Wyatt Marcelo Work Phone: [facility] 08-18-2015 influenza, injectabl e, quadrivalent, preservative free Dr. Wyatt Marcelo Work Phone: [facility] 05-19-2009 novel [id number], preservative-free, injectable Dr. Wyatt Marcelo Work Phone: [facility] Payers Date Payer Category Payer Self-pay [id number] 2023 Unknown [id number] Unknown [id number] Unknown [id number] Unknown [id number] Unknown [id number] 2.16.8 40.1.127045.3.579.2.462 Unknown [id number] 2.16.8 40.1.502165.3.579.2.462 Unknown [id number] 2.16.8 40.1.162598.3.579.2.462 Unknown [id number] 2.16.8 40.1.588650.3.579.2.462 Unknown [id number] 2.16.8 40.1.871837.3.579.2.462 Unknown [id number] 2.16.8 40.1.640550.3.579.2.462 Unknown [id number] 2.16.8 40.1.564301.3.579.2.462 Unknown [id number] 2.16.8 40.1.579796.3.579.2.462 Unknown [id number] 2.16.8 40.1.461554.3.579.2.462 Unknown [id number] 2.16.8 40.1.553871.3.579.2.462 Unknown [id number] 2.16.8 40.1.041253.3.579.2.462 Unknown [id number] 2.16.8 40.1.939427.3.579.2.462 Unknown [id number] 2.16.8 40.1.876164.3.579.2.462 Unknown [id number] 2.16.8 40.1.462727.3.579.2.462 Unknown [id number] 2.16.8 40.1.059131.3.579.2.462 Unknown [id number] 2.16.8 40.1.461991.3.579.2.462 Unknown [id number] 2.16.8 40.1.289319.3.579.2.462 Unknown [id number] 2.16.8 40.1.383376.3.579.2.462 Unknown [id number] 2.16.8 40.1.596123.3.579.2.462 Unknown [id number] 2.16.8 40.1.862237.3.579.2.462 Unknown [id number] 2.16.8 40.1.509509.3.579.2.462 Unknown [id number] 2.16.8 40.1.090727.3.579.2.462 Unknown [id number] 2.16.8 40.1.227409.3.579.2.462 Unknown [id number] 2.16.8 40.1.726521.3.579.2.462 Unknown [id number] 2.16.8 40.1.154779.3.579.2.462 Unknown [id number] 2.16.8 40.1.508038.3.579.2.462 Unknown [id number] 2.16.8 40.1.931145.3.579.2.462 Social History Date Type Detail Facility Start: 10-08-2021 End: 10-12-2023 Tobacco smoking status NHIS Unknown if ever smoked [facility] Start: 1980 Sex Assigned At Female [facility] Start: 08-31-2024 End: 01-14-2025 Tobacco smoking status NHIS Never smoked tobacco (finding) [facility] Start: 10-14-2024 End: 11-12-2024 Sex Female (finding) [facility] Not [facility] NEGATED: Highlighted row Not [facility] Medical Equipment Procedure Code Equipment Code Equipment Origin al Text Equipment Identifier Dates EDNA WOOD WECK FDA Start: 06-21-2018 CLIPEDNA WECK FDA Start: 06-21-2018 CLIPHEMESTELLA Rasmussen WECK FDA Start: 06-21-2018 CLIPHEMESTELLA Rasmussen WEJARRETT FDA Start: 06-21-2018 CLIPHEMESTELLA MICHAEL D WECK FDA Start: 06-21-2018 CLIPHEMESTELLA Rasmussen WECK FDA Start: 06-21-2018 CLIPHEMESTELLA MICHAEL D WECK FDA Start: 06-21-2018 CLIPHEMESTELLA MICHAEL D WECK FDA Start: 06-21-2018 CLIPHEMESTELLA MICHAEL D WECK FDA Start: 06-21-2018 CLIPHEMESTELLA MICHAEL D WEJARRETT FDA Start: 06-21-2018 CLIPHEMESTELLA MICAHEL D WECK FDA Start: 06-21-2018 NINAHEMESTELLA MICHAEL D WECK FDA Start: 06-21-2018 NINAHEMESTELLA MICHAEL D WECK FDA Start: 06-21-2018 CLIPHEMESTELLA MICHAEL D WEJARRETT FDA Start: 06-21-2018 CLIPHEMESTELLA Rasmussen WEJARRETT FDA Start: 06-21-2018 NINAHEMESTELLA MICHAEL D WEJARRETT FDA Start: 06-21-2018 NINAHEMESTELLA MICHAEL D WEJARRETT FDA Start: 06-21-2018 NINAHEMESTELLA MIHCAEL D WECK FDA Start: 06-21-2018 NINAHEMESTELLA MICHAEL D WECK FDA Start: 06-21-2018 NINAHEMESTELLA MICHAEL D WECK FDA Start: 06-21-2018 CLIPHEMESTELLA MICHAEL D WECK FDA Start: 06-21-2018 CLIPHEMESTELLA MICHAEL D WECK FDA Start: 06-21-2018 CLIPHEMMARSCK D WECK FDA Start: 06-21-2018 NINAHEMMARSCK D WECK FDA Start: 06-21-2018 CLIPHEMESTELLA MICHAEL D WECK FDA Start: 06-21-2018 NINAHEMMARSCK D WECK FDA Start: 06-21-2018 NINAHEMMARSCK D WECK FDA Start: 06-21-2018 NINAHEMMARSCK D WECK FDA Start: 06-21-2018 NINAHEMOLOCK ME D WECK FDA Start: 06-21-2018 CLIPEDNA FDA Start: 06-21-2018 CLIP,EDNA CROUCH FDA Start: 06-21-2018 CLIP,EDNA CROUCH FDA Start: 06-21-2018 CLIPEDNA FDA Start: 06-21-2018 CLIPEDNA FDA Start: 06-21-2018 CLIP,EDNA CROUCH FDA Start: 06-21-2018 CLIP,EDNA CROUCH FDA Start: 06-21-2018 CLIPEDNA FDA Start: 06-21-2018 CLIP,EDNA CROUCH FDA Start: 06-21-2018 CLIP,EDNA CROUCH FDA Start: 06-21-2018 CLIPEDNA FDA Start: 06-21-2018 CLIPEDNA FDA Start: 06-21-2018 CLIP,EDNA CROUCH FDA Start: 06-21-2018 CLIPEDNA FDA Start: 06-21-2018 CLIPEDNA FDA Start: 06-21-2018 CLIPEDNA FDA Start: 06-21-2018 EDNA WOOD FDA Start: 06-21-2018 Safety [place] ( Bd Eclipse) 25 gauge x 1 needle Start: 10-10-2023 EDNA WOOD FDA Start: 06-21-2018 EDNA WOOD FDA Start: 06-21-2018 Safety [place] ( Bd Eclipse) 25 gauge x 1 needle Start: 10-10-2023 EDNA WOOD FDA Start: 06-21-2018 CLIPEDNA FDA Start: 06-21-2018 Safety [place] ( Bd Eclipse) 25 gauge x 1 needle Start: 10-10-2023 End: 03-20-2024 EDNA WOOD FDA Start: 06-21-2018 CLIPEDNA FDA Start: 06-21-2018 Safety [place] ( Bd Eclipse) 25 gauge x 1 needle Start: 10-10-2023 End: 03-20-2024 EDNA WOOD FDA Start: 06-21-2018 EDNA WOOD FDA Start: 06-21-2018 Safety [place] ( Bd Eclipse) 25 gauge x 1 needle Start: 10-10-2023 End: 03-20-2024 EDNA WOOD FDA Start: 06-21-2018 EDNA WOOD FDA Start: 06-21-2018 Safety [place] ( Bd Eclipse) 25 gauge x 1 needle Start: 10-10-2023 End: 03-20-2024 CLIPEDNA FDA Start: 06-21-2018 EDNA WOOD FDA Start: 06-21-2018 Safety [place] ( Bd Eclipse) 25 gauge x 1 needle Start: 10-10-2023 End: 03-20-2024 EDNA WOOD Valery NINAJARRETT FDA Start: 06-21-2018 EDNA WOOD FDA Start: 06-21-2018 Safety [place] ( Bd Eclipse) 25 gauge x 1 needle Start: 10-10-2023 End: 03-20-2024 EDNA WOOD FDA Start: 06-21-2018 EDNA WOOD FDA Start: 06-21-2018 Safety [place] ( Bd Eclipse) 25 gauge x 1 needle Start: 10-10-2023 End: 03-20-2024 EDNA WOOD FDA Start: 06-21-2018 EDNA WOOD FDA Start: 06-21-2018 Safety [place] ( Bd Eclipse) 25 gauge x 1 needle Start: 10-10-2023 End: 03-20-2024 NINAEDNA FDA Start: 06-21-2018 EDNA WOOD FDA Start: 06-21-2018 Safety [place] ( Bd Eclipse) 25 gauge x 1 needle Start: 10-10-2023 End: 03-20-2024 NINAEDNA KELLEJARRETT FDA Start: 06-21-2018 EDNA WOOD FDA Start: 06-21-2018 Safety [place] ( Bd Eclipse) 25 gauge x 1 needle Start: 10-10-2023 End: 03-20-2024 NINAEDNA MICHAEL Valery KELLEJARRETT FDA Start: 06-21-2018 NINAEDNACK FDA Start: 06-21-2018 Safety [place] ( Bd Eclipse) 25 gauge x 1 needle Start: 10-10-2023 End: 03-20-2024 Goals Date Patient Goal Desired Activity /State Mental Status Date Assessment Result Facility 01-16-2025 Cognitive function Voice/Name;Touch/Romero locke [facility] Work Phone: Clinical Notes 2018 to 01-22-2025 Note Date & Type Note Facility 01-22-2025 Radiology Diagnostic study note [facility] Imaging Services [address] [place] [address] Foot min 3 Views MR#: [id number] Acct: [id number] Name: ALMA ADEN Rep #: [id number] : 1980 F 44 From: Clyde Yancey MD PCP: Dr. Wyatt Marcelo MD Status: R EG CLI Study:Foot min 3 Views Date of Exam: 03/10 Exam# [id number] Ordering Dr: Kati Hilliard PROCEDURE: FOOT MIN [...] seen. No new acute findings. Reading [facility] CC: PROGRAM SERVICES ASSISTANTLeeroy Hilliard; Dr. Wyatt Marcelo MD ~ Billing Control Clerk: Signed [facility] 01-21-2025 Progress note [facility] 01-16-2025 Consult note [facility] 01-16-2025 Procedure note [facility] 01-16-2025 Procedure note [facility] 01-16-2025 Consult note [facility] 01-16-2025 History and physi rachell note [facility] 01-16-2025 Note [facility] Medical Records Department [address] [place] [address] History Physical Exam 01/16/25 0655 MR#: [id number] Acct: [id number] Name: ALMA ADEN Rep #: [id number] : 1980 44 From: Hammad Loaiza DO PCP: Dr. Wyatt Marcelo MD [place] [facility] [place] [address] HPI - General General Date of Admission: [...] take pepcid as needed but not daily. 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 [facility] 01-16-2025 Consult note [facility] 10-23-2024 Evaluation note Diagnosis Onset Date Resolution Diabetes mellitus type 2, diet-controlled acute October 23 4:43pm Anxiety and depression chronic Ap 2024 4:43pm Hypertension chronic October 23, 2 025 4:43pm KRISTOPHER (obstructive sleep apnea) chronic October 23, 2024 4:43pm Constipation acute December 13 6:57am GERD (gastroesophageal reflux disease) chronic December 13, 2024 6:57am Hypothyroidism chronic January 07, 2025 11:26am [facility] Work Phone: 1(970) 173-998404-09-2025 Evaluation note* Diagnosis Onset Date Resolution Status [...] x disease) chronic January 16, 2025 5:26am [facility] Work Phone: 1(741) 305-791704-09-2025 Evaluation note* Diagnosis Onset Date Resolution Status [...] Pain of left heel acute January 12:34pm [facility] Work Phone: 1(693) [phone] Evaluation note* Diagnosis Onset Date Resolution Status Admit Date Sinus infection acute August 31, 2024 11:35am [facility] Work Phone: 1(245) 391-687202-15-2025 Evaluation note* Diagnosis Onset Date Resolution Status Admit Date Sinus infection acute August 31, 2024 11:35am Diabetes mellitus type 2, diet-controlled acute October 23, 2024 4:43pm Anxiety and depression chronic Ap 2024 4:43pm Hypertension chronic October 23, 2 025 4:43pm KRISTOPHER (obstructive sleep apnea) chroni c October 23, 2024 4:43pm [facility] Work Phone: 1(571) 962-938202-28-2022 NoteHNO ID: [id number] Author: Flower Pinedo MD Service: ? Author [...] the mornings and evenings. 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 Swelling in hands towards the end of [...] Relation Age of Onset (more content not included)...[facility] Consult note Author Adi Berger [facility] Note Date/Time January 16, 2025 7:20a m [facility] Medical Records Department [address] [place] [address] Anesthesia Postop Eval I 01/16/25718 MR#: [id number] Acct: [id number] Name: ALMA ADEN Rep #:[id number] : 1980 44 From: Adi FLORES PCP: Dr. Wyatt Marcelo MD Status:R EG SDC Y Race: C Location: [place] [address] Anesthesia: Postop Eval I Current Vital Signs [...] by Adi Berger CRNA> Date _ Adi Farleyignwander Signature: Date CC: ~ Signed [facility] Work Phone: Chief complaint+Reason for visit Narrative* Chief Complaint 1 Y FU NEED REFERRAL FOR RHEUMATOLOGY Thyroid dysfunction leg pain LEFT LEG PAIN Reason for Visit BMI 45.0-49.9, adult KRISTOPHER (obstructive sleep apnea) Sjogren's disease Sjogren's disease Insulin resistance Hypothyroidism Pain of left calf Hypertension [facility] Work Phone: Chief complaint+Reason for visit Narrative* Chief Complaint SORE THROAT/HEADACHE /PCR exposure employee Reason for Visit COVID-19 Needlestick injury of finger Occupational exposure in workplace [facility] Work Phone: Consult note Author Konrad Henderson [facility] Note Date/Time January 16, 2025 6:28a [facility] Medical Records Department [address] [place] [address] Pre-Anesthesia Evaluation 01/16/25 0627 MR#: [id number] Acct: [id number] Name: ALMA ADEN Rep #:[id number] : 1980 44 From: Konrad Henderson MD PCP: Dr. Wyatt Marcelo MD Status:R EG SDC Y Race: C Location: [place] [address] ASA Classification* ASA Classification ASA Classification: 3 [...] Procedure(s): EGD Anesthesia History Anesthesia History - level vial curvature gauger: Anesthesia History - level vial curvature gauger Hx Hospitalization No 01/14/25 14:39 Any Problems [...] take am of surgery PONV PONV - level vial curvature gauger: PONV - level vial curvature gauger Female Yes 01/14/25 14:39 HX of Motion [...] 01/16/25 05:54 Respiratory Assessment Respiratory Assessment - level vial curvature gauger: Respiratory Tract Infection Hx - level vial curvature gauger Hx Respiratory Tract Infection No 01/14/25 14:39 STOP Sleep Apnea STOP Sleep Apnea - level vial curvature gauger: STOP Sleep Apnea - level vial curvature gauger Hx Hypertension Yes 01/14/25 14:39 Hx Sleep [...] Tobacco Use History Tobacco Use History - level vial curvature gauger: Tobacco Use History - level vial curvature gauger Tobacco Use Smoking Status Never smoker 01/14/25 14:39 Hx Tobacco Use No 01/14/25 14:39 Years Smoking Packs Smoked per Day Smoking Cessation Date was within the last 15 years Hx Smoking Cessation Date Hx Smoking Cessation Counseling Hematologic Medial History Hematologic Hx - level vial curvature gauger: 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 Specify any problems Hx of Preganancy in last 3 No 01/14/25 14:39 Months Nurse Filling Out Transfusion VLEHCHERRYVALE 01/14/25 14:39 & Questions: Date: 01/14/25 01/14/25 14:39 Time: 14:46 01/14/25 14:39 Patient unable to answer at this time (ie. 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 Physical Exam Const alert and oriented x3 Nutritional Appearance: obese Neck full ROM Cardio regular rate and regular rhythm Neuro oriented x3 and moves all extremities 01/16/25 0628 <Electronically signed by Konrad Rasmussen> Date _ Konrad Henderson MD Cosigner Signature: Date CC: ~ Signed [facility] Work Phone: Consult note Author Konrad Henderson [facility] Note Date/Time January 16, 2025 7:55a [facility] Medical Records Department [address] [place] [address] Anesthesia Postop Eval II 01/16/25 0746 MR#: [id number] Acct: [id number] Name: ALMA ADEN Rep #:[id number] : 1980 44 From: Konrad Henderson MD PCP: Dr. Wyatt Marcelo MD Status:R [facility] Y Race: C Location: [place] [address] Anesthesia Postop Eval I Sum Postop Eval Completion status Anesthesia document: Postop Eval 1 completed: Yes Anesthesia Postop Eval I Summary Anesthesia Postop Eval I Summary: Anesthesia Postop Eval I: Assessment Summary Airway patent Yes 01/16/25 07:20 [email or web address] Spontaneous unlabored Yes 01/16/25 07:20 [email or web address].MDOT respirations Mental status Awake,Calm 01/16/25 07:20 [email or web address] nausea No 01/16/25 07:20 TENTER.MDOT Vomiting No 01/16/25 07:20 [email or web address] Anesthesia Postop Eval I: Fluid Summary Crystalloid volume administer 100 01/16/25 07:20 TENTER.MDOT (ml) Colloids volume administered ( ml) Blood Product volume administered (ml) Total IV fluid infused 100 01/16/25 07:20 [email or web address] Anesthesia Postop Eval I: Summary Notes Anesthesia Complication No 01/16/25 07:20 [email or web address] Anesthesia Complication Comment: Post-operative progress note Anesthesia: Postop Eval II Evaluation Mental status: Awake and Calm Pain Level: 1 nausea: No Vomiting: No Complications Anesthesia Complication: No 01/16/25 0746 <Electronically signed by Konrad Adamson D> Date _ Konrad Henderson MD Cosigner Signature: Date CC: ~ Signed [facility] Work Phone: Evaluation note* Diagnosis Onset Date Resolution Status BMI 45.0-49.9, adult chronic KRISTOPHER (obstructive sleep apnea) chronic Sjogren's disease chronic Sjogren's disease chronic Insulin resistance acute Hypothyroidism chronic Pain of left calf acute Hypertension chronic [facility] Work Phone: Evaluation note* Diagnosis Onset Date Resolution Status Pain of left calf acute Hypertension chronic Anxiety and depression chron ic Hypertension chronic Hypothyroidism chronic BMI 50.0-59.9, adult noneact werner Sweating increase noneactive [facility] Work Phone: Evaluation note* Diagnosis Onset Date Resolution Status Anxiety and depression chron ic Hypertension chronic Hypothyroidism chronic BMI 50.0-59.9, adult noneact werner Sweating increase noneactive COVID-19 acute [facility] Work Phone: Evaluation note* Diagnosis Onset Date Resolution Status COVID-19 acute Needlestick injury of finger acute Occupational exposure in workplace acute [facility] Work Phone: Evaluation note* Diagnosis Onset Date Resolution Status Needlestick injury of finger acute Occupational exposure in workplace acute Preventative health care non eactive [facility] Work Phone: Evaluation note* Diagnosis Onset Date Resolution Status Preventative health care non eactive Back pain noneactive Hip pain noneactive [facility] Work Phone: Evaluation note* Diagnosis Onset Date Resolution Status Back pain noneactive Hip pain noneactive Hypercalcemia acute Prediabetes acute Hypothyroidism chronic Vitamin deficiency chronic Acute bronchitis, unspecified acute B12 deficiency chronic Migraine headache without aura chronic Urge incontinence chronic B12 deficiency chronic [facility] Work Phone: Evaluation note* Diagnosis Onset Date Resolution Status Back pain noneactive Hip pain noneactive Hypercalcemia acute Prediabetes acute Hypothyroidism chronic Vitamin deficiency chronic B12 deficiency chronic Migraine headache without aura chronic Urge incontinence chronic B12 deficiency chronic Obesity, morbid, BMI 50 or higher acute Urge incontinence chronic Encounter for routine gynecological examination noneactive [facility] Work Phone: Evaluation note* Diagnosis Onset Date Resolution Status Hypercalcemia acute Prediabetes acute Hypothyroidism chronic Vitamin deficiency chronic B12 deficiency chronic Migraine headache without aura chronic Urge incontinence chronic B12 deficiency chronic Obesity, morbid, BMI 50 or higher acute Urge incontinence chronic Encounter for routine gynecological examination noneactive B12 deficiency chronic [facility] Work Phone: Evaluation note* Diagnosis Onset Date Resolution Status Hypercalcemia acute Prediabetes acute Hypothyroidism chronic Vitamin deficiency chronic B12 deficiency chronic Migraine headache without aura chronic Urge incontinence chronic B12 deficiency chronic Obesity, morbid, BMI 50 or higher acute Urge incontinence chronic Encounter for routine gynecological examination noneactive B12 deficiency chronic Lymph node enlargement acute Primary hyperparathyroidism acute [facility] Work Phone: Evaluation note* Diagnosis Onset Date Resolution Status B12 deficiency chronic Migraine headache without aura chronic Urge incontinence chronic B12 deficiency chronic Obesity, morbid, BMI 50 or higher acute Urge incontinence chronic Encounter for routine gynecological examination noneactive B12 deficiency chronic Lymph node enlargement acute Primary hyperparathyroidism acute B12 deficiency chronic Autoimmune disease acute Cat bite acute [facility] Work Phone: Evaluation note* Diagnosis Onset [...] (obstructive sleep apnea) chronic Sjogren's disease chronic [facility] Work Phone: Evaluation note* Diagnosis Onset Date Resolution Status B12 deficiency chronic Lymph node enlargement acute Primary hyperparathyroidism acute B12 deficiency chronic Autoimmune disease acute Cat bite acute B12 deficiency chronic BMI 45.0-49.9, adult chronic KRISTOPHER (obstructive sleep apnea) chronic Sjogren's disease chronic [facility] Work Phone: Evaluation note* Diagnosis Onset Date Resolution Status Autoimmune disease acute Cat bite acute B12 deficiency chronic BMI 45.0-49.9, adult chronic KRISTOPHER (obstructive sleep apnea) chronic Sjogren's disease chronic Palpitations acute Arthritis chronic Hypertension chronic [facility] Work Phone: Evaluation note* Diagnosis Onset Date Resolution Status BMI 45.0-49.9, adult chronic KRISTOPHER (obstructive sleep apnea) chronic Sjogren's disease chronic Palpitations acute Arthritis chronic Hypertension chronic Chest pain in adult noneacti ve [facility] Work Phone: Evaluation note* Diagnosis Onset Date Resolution Status Palpitations acute Arthritis chronic Hypertension chronic Chest pain in adult noneacti ve Borderline type 2 diabetes mellitus acute Preventative health care acu te Migraine headache without aura chronic [facility] Work Phone: Evaluation note* Diagnosis Onset Date Resolution Status Obesity, morbid, BMI 50 or higher acute Anxiety and depression chron ic [facility] Work Phone: Evaluation note* Diagnosis Onset Date Resolution Status Obesity, morbid, BMI 50 or higher acute Anxiety and depression chron ic Acute sinusitis acute [facility] Work Phone: History and physical note Author Hammad Friend [facility] Note Date/Time January 16, 2025 6:57a m [facility] Medical Records Department [address] [place] [address] History & Physical Exam 01/16/25 0655 MR#: [id number] Acct: [id number] Name: ALMA ADEN Rep #:[id number] : 1980 44 From: Hammad Friend PCP: Dr. Wyatt Marcelo MD Status:R [facility] Location: [place] [address] HPI - General General Date of Admission: [...] take pepcid as needed but not daily. 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 Pt originally established with [facility] in 2020 for alternating constipation and diarrhea [...] Wyatt Marcelo MD; Hammad Loaiza DO~ Signed [facility] Work Phone: Progress note Author Kati Hilliard [facility] Note Date/Time January 21, 2025 1:22p m [facility] [address] [place], [place] [address] OFFICE VISIT Date of Service: 01/21/25 MR#: [id number] Acct: [id number] Name: ALMA ADEN Rep #: [id number] : 1980 Provider: ZAFAR Hilliard Age/Sex: 44/F [place] [facility] [place]: Signed Intake Vital Signs 01/16/25 05:54 01/21/25 12:40 Height 5 ft 8 in 5 ft 8 in BP 132/80 H Blood Pressure Location Lt brachial Position Sitting Respiration 16 Pulse 86 Pulse Source Monitor Temp 95.6 F L Temp Source Temporal Pulse Oximetry (%) 97 Oxygen Delivery Method room air Intake Visit Reasons: ACUTE LEFT HEEL PAIN Chief Complaint: heel pain It Service Delivery Manager Required: No Accompanied by: Self Is [...] at home: Yes 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[employer] Chief Complaint: heel pain Details: [place] ADEN, [...] needed 01/21/25 1322 <Electronically signed by Kati STEPHEN> Date _ Kati STEPHEN Cosigner Signature: Date (if applicable) CC: ~ [facility][1] Services Work Phone: Reason for referral (narrative)No reason for referral information availableW[facility] Work Phone: Summary Purpose Family History No [...] Will No July 28 10:25am Power of Substance Abuse Nurse No July 28, 2021 10:25am Advance Directive Response Recorded Date/ Time Living Will No March 07 2 1:03pm Power of Substance Abuse Nurse No March 07 1:03pm Advance Directive Response Recorded Date/ Time Living Will No March 07 2 12:03pm Power of Substance Abuse Nurse No March 07 12:03pm Advance Directive Response Recorded Date/ Time Living Will No June 11, 023 8:07am Power of Substance Abuse Nurse No June 11, 2023 8:07am Advance Directive Response Recorded Date/ Time Living Will No June 11, 023 9:07am Power of Substance Abuse Nurse No June 11, 2023 9:07am Advance Directive Response Recorded Date/ Time Living Will No January 18, 2024 1 2:16pm Do you have a Healthcare Power of Substance Abuse Nurse? No January 18, 2024 12:16pm Advance Directive Response Recorded Date/ Time Living Will No January 18, 2024 1 2:16pm Do you have a Healthcare Power of Substance Abuse Nurse? No January 18, 2024 12:16pm Do you have a Healthcare Power of Substance Abuse Nurse? No January 14, 2025 2:39pm Chief Complaint [...] LABS AND XRAY Amb Documentation B12 Annual (SECTION HAND) Reason for Visit Back pain Hip pain Hypercalcemia Prediabetes Hypothyroidism Vitamin deficiency B12 deficiency Migraine headache without aura Urge incontinence B12 deficiency Obesity, morbid, BMI 50 or higher Urge incontinence Encounter for routine gynecological examination Chief Complaint 1 Y FU cold symptoms FOLLOW UP/MEDS B12 LABS AND XRAY Amb Documentation B12 Annual (SECTION HAND) b12 SCREENING LOCALIZED PARATHYROID ADENOMA Reason for Visit Hypercalcemia Prediabetes Hypothyroidism Vitamin deficiency B12 deficiency Migraine headache without aura Urge incontinence B12 deficiency Obesity, morbid, BMI 50 or higher Urge incontinence Encounter for routine gynecological examination B12 deficiency Chief Complaint 1 Y FU cold symptoms FOLLOW UP/MEDS B12 LABS AND XRAY Amb Documentation B12 Annual (SECTION HAND) b12 SCREENING LOCALIZED PARATHYROID ADENOMA HYPERPARATHYROIDISM Enlarged [...] LABS AND XRAY Amb Documentation B12 Annual (SECTION HAND) b12 SCREENING LOCALIZED PARATHYROID ADENOMA HYPERPARATHYROIDISM Enlarged [...] LABS AND XRAY Amb Documentation B12 Annual (SECTION HAND) b12 SCREENING LOCALIZED PARATHYROID ADENOMA HYPERPARATHYROIDISM Enlarged [...] LABS AND XRAY Amb Documentation B12 Annual (SECTION HAND) b12 SCREENING LOCALIZED PARATHYROID ADENOMA HYPERPARATHYROIDISM Enlarged [...] GERD (gastroesophageal reflux disease) ay 2024 6:57am Hypothyroidism January 07, 2025 11:2 6am Reason for Visit Admit Date Diabetes mellitus type 2, diet-controlle d October 23, 2024 4:43pm Anxiety and depression October 23, 2024 4 :43pm Hypertension October 23, 2024 4:43 pm KRISTOPHER (obstructive sleep apnea) October 23, 2024 4:43pm Constipation December 13, 2024 6:57a m GERD (gastroesophageal reflux disease) [facility] 2024 6:57am Hyperparathyroidism January 07, 2025 11:2 [...] 2024 6:57a m GERD (gastroesophageal reflux disease) [facility] 2024 6:57am Hyperparathyroidism January 07, 2025 11:2 [...] 2024 4:43 pm RECTAL BLEEDING - COLONOSCOPY May 30th, 2025 6:57am 13 M FU, Cx 12/13January 07, 2025 11:2 6am ACUTE LEFT HEEL PAIN January 21, 2025 12:3 4pm pain- LEFT FOOT January 21, 2025 4:27p m INT ORDER FOR 24 HOUR URINE February 01 025 10:49am Additional Source Comments INFORMATION SOURCE (unrecogn ized section and content) DATE CREATED AUTHOR 01/09/2018 [facility] DATE CREATED AUTHOR AUTHOR'S ORGANIZ ATION 09/14/2021 [facility] DATE CREATED AUTHOR AUTHOR'S ORGANIZ ATION 10/03/2021 [facility] DATE CREATED AUTHOR AUTHOR'S ORGANIZ ATION 02/16/2025 [facility] DATE CREATED AUTHOR AUTHOR'S ORGANIZ ATION 02/18/2025 [facility] Care Teams (unrecognized sec tion [...] Provider, Refer ring Provider Active Dirk Paula PROGRAM SERVICES ASSISTANT, PROGRAM SERVICES ASSISTANT-C Attending Provider Active Team Status: Active Member Role Status Dates Dr. Wyatt Marcelo MD Primary Care Provider Active Dirk Paula PROGRAM SERVICES ASSISTANT, PROGRAM SERVICES ASSISTANT-C Attending Provider Active Team Status: Inactive Member Role Status Dates Dr. Wyatt Marcelo MD Primary Care P rovider, Attending Provider, Referring Provider Active Team Status: Inactive Member Role Status Dates Dr. Wyatt Marcelo MD Primary Care Provider Active Dirk Paula PROGRAM SERVICES ASSISTANT, PROGRAM SERVICES ASSISTANT-C Attending Provider Active Team Status: Inactive Member Role Status Dates Dr. Wyatt Marcelo MD Primary Care Provider, Refer ring Provider Active Laine Coronado PROGRAM SERVICES ASSISTANT, PROGRAM SERVICES ASSISTANT-C Attending Provider Active Team Status: Active Member [...] MD Primary Care Provider Active Laine Coronado PROGRAM SERVICES ASSISTANT, PROGRAM SERVICES ASSISTANT-C Attending Provider Active Team Status: Inactive Member [...] MD Primary Care Provider Active Dirk Paula PROGRAM SERVICES ASSISTANT, PROGRAM SERVICES ASSISTANT-C Attending Provider, Referring Prov ider Active Team Status: Inactive Member Role Status Dates Dr. Wyatt Marcelo MD Primary Care Provider Active STEVEN BOLES MD Attending Provider Active Team Status: Inactive Member Role Status Dates Dr. Wyatt Marcelo MD Primary Care Provider Active Dirk Paula PROGRAM SERVICES ASSISTANT, PROGRAM SERVICES ASSISTANT-C Attending Provider, Referring Prov ider Active Team [...] Marcelo MD Primary Care Provider Active Dr. Kaen Fisher DO Emergency Provider Active Team Status: [...] Care Provider, Refer ring Provider Active Herbert Solorzano PA, PA Attending Provider Active Team Status: Active Member Role Status Dates Dr. Wyatt Marcelo MD Primary Care Provider Active ZAFAR Merrill Attending Provider, Referring Pro vider Active Team Status: Inactive Member Role Status Dates Dr. Wyatt Marcelo MD Primary Care Provider Active ZAFAR Merrill Attending Provider, Referring Pro vider Active Team [...] Provider Active Start: January 16, 2025 Dr. Waytt Marcelo MD Referring Provider Active Start: January [...] 2025 End: January 21, 2025 Kati Hilliard PROGRAM SERVICES ASSISTANT-C Attending Provider Active Start: January 21, 2025 End: January 21, 2025 Kati Hilliard PROGRAM SERVICES ASSISTANT-C Referring Provider Active Start: January 21, 2025 [...] February 01, 2025 End: February 01, 2025 Team Status: Inactive Member [...] Inactive Member Role/Relationship Status Dates Dr. Wyatt Marcleo MD Primary Care Provider Active Start: November [...] February 01, 2025 End: February 01, 2025 Team Status: Active Member Role/Relationship Status Dates Dr. Wyatt Marcelo MD Primary Care Provider Active Start: February 09, 2025 Dr. Wyatt Marcelo MD Attending Provider Active Start: February 09, 2025 Dr. Wyatt Marcelo MD Referring Provider Active Start: February 09, 2025 Team Status: Inactive Member Role/Relationship Status Dates Dr. Wyatt Marcelo MD Primary Care Provider Active Start: February 09, 2025 End: February 09, 2025 Dr. Wyatt Marcelo MD Attending Provider Active Start: February 09, 2025 End: February 09, 2025 Dr. Wyatt Marcelo MD Referring Provider Active Start: February 09, 2025 End: February 09, 2025 FOR RECORDS PERTAINING TO PATIENTS WHO [...] BE BASED ON THE PRIMARY CLINICAL RECORDS. [facility] [employer] provides no warranty or guarantee of the accuracy or completeness of information in this document.
[2025-02-27 09:16] LABS: Hematocrit 34.1 % (37-47); Hemoglobin 11.2 g/dL (12.0-15.0); Immature Granulocytes Count 0.020 X10^3/uL (0.0-0.0); Mean Corp Hgb Conc 32.8 g/dL (32-36); Mean Corpuscular Volume 96.1 fL (81-99); Mean Platelet Vol. 9.4 fl (6.2-12.0); NRBC Flagged by Analyzer 0 % (0-5); Platelet Count 319 K/mm3 (150-450); RBC Distribution Width CV 13.1 % (11.6-14.6); RBC Distribution Width SD 46.4 fl (35.1-43.9); Red Blood Count 3.55 M/mm3 (4.2-5.4); White Blood Count 5.0 K/mm3 (4.4-11.0)
[2025-02-27 10:19] LABS: AST(SGOT) 29 U/L (<=31); Alanine Aminotransfer ALT/SGPT 33 U/L (<=34); Albumin, Serum 4.0 g/dL (3.5-5.0); Alkaline Phosphatase 62 U/L (35-104); Anion Gap 12 (5-15); BUN 6 mg/dL (4-19); BUN/Creat Ratio 8.7 RATIO (10-20); CORTISOL AM 7.41 ug/dL (6.02-18.40); Calcium,Total 9.9 mg/dL (7.6-11.0); Carbon Dioxide 22.7 mmol/L (21.0-32.0); Chloride 104 mmol/L (98-108); Ferritin 117 ng/mL (22-378); Free T3 4.3 pg/mL (2.18-3.98); Globulin 2.8 g/dL (2.2-4.2); Glucose 124 mg/dL (70-99); Potassium 4.0 mmol/L (3.3-5.1); Vitamin B12 381 pg/mL (180-914)
[2025-02-27 10:46] LABS: FOLATES,SERUM (FOLIC ACID) 26.60 ng/mL (4.60-34.80)
[2025-02-27 11:20] LABS: CRP 13.60 mg/L (0.0-3.0); Iron 75 ug/dL (50-170); Magnesium 2.4 mg/dL (1.5-2.2)
[2025-02-28 04:07] LABS: CRP, High Sensitivity 9.64 mg/L (0.00-3.00)
[2025-03-03 11:08] LABS: PROGESTERONE <0.1 ng/mL (.)
== END | disposition home or self-care (01) ==
PROVIDERS: PCP Internal Medicine; Referring Provider Nurse Practitioner Family; Visit Provider Nurse Practitioner Family
DX: M06.879 Other specified rheumatoid arthritis, unspecified ankle and foot (principal); R53.82 Chronic fatigue, unspecified; G89.29 Other chronic pain; F41.9 Anxiety disorder, unspecified; M35.00 Sjogren syndrome, unspecified; R51.9 Headache, unspecified; H93.19 Tinnitus, unspecified ear; R61 Generalized hyperhidrosis; E28.9 Ovarian dysfunction, unspecified; R21 Rash and other nonspecific skin eruption; R06.00 Dyspnea, unspecified; G47.39 Other sleep apnea; K58.1 Irritable bowel syndrome with constipation; D50.9 Iron deficiency anemia, unspecified
CPT/HCPCS: 36415; 80053; 82525; 82533; 82607; 82627; 82670; 82728; 82746; 82747; 83525; 83540; 83735; 84144; 84207; 84403; 84425; 84439; 84443; 84481; 84630; 85014; 85025; 86140; 86141; 86376; 86611; 86617; 86800; 82626

== ENCOUNTER → 2025-03-03 | Outpatient (CLI) | payer OTHER, SELFPAY | END | disposition home or self-care (01) | LOC: LABSPEC 15:30 | PROVIDERS: PCP Internal Medicine; Referring Provider Nurse Practitioner Family; Visit Provider Nurse Practitioner Family | DX: M06.879 Other specified rheumatoid arthritis, unspecified ankle and foot (principal); R53.82 Chronic fatigue, unspecified; G89.29 Other chronic pain; F41.9 Anxiety disorder, unspecified; M35.00 Sjogren syndrome, unspecified; R51.9 Headache, unspecified; H93.19 Tinnitus, unspecified ear; R61 Generalized hyperhidrosis; E28.9 Ovarian dysfunction, unspecified; R21 Rash and other nonspecific skin eruption; R06.00 Dyspnea, unspecified; G47.39 Other sleep apnea; K58.1 Irritable bowel syndrome with constipation; D50.9 Iron deficiency anemia, unspecified ==

== ENCOUNTER → 2025-05-05 | Outpatient (CLI) | payer MEDICAID, SELFPAY ==
[2025-05-05 10:33] LABS: Hematocrit 35.1 % (37-47); Hemoglobin 11.5 g/dL (12.0-15.0); Immature Granulocytes Count 0.020 X10^3/uL (0.0-0.0); Mean Corp Hgb Conc 32.8 g/dL (32-36); Mean Corpuscular Volume 94.9 fL (81-99); Mean Platelet Vol. 9.4 fl (6.2-12.0); NRBC Flagged by Analyzer 0 % (0-5); Platelet Count 336 K/mm3 (150-450); RBC Distribution Width CV 13.4 % (11.6-14.6); RBC Distribution Width SD 47.2 fl (35.1-43.9); Red Blood Count 3.70 M/mm3 (4.2-5.4); White Blood Count 6.0 K/mm3 (4.4-11.0)
[2025-05-05 11:00] LABS: AST(SGOT) 36 U/L (<=31); Alanine Aminotransfer ALT/SGPT 42 U/L (<=34); Albumin, Serum 4.3 g/dL (3.5-5.0); Alkaline Phosphatase 54 U/L (35-104); Bilirubin, Direct 0.13 mg/dL (0.00-0.30); CRP 10.70 mg/L (0.0-3.0); Globulin 2.9 g/dL (2.2-4.2)
[2025-05-06 15:09] LABS: PROEL- A/G Ratio 1.1 (0.7-1.7); PROEL- Albumin 3.5 g/dL (2.9-4.4); PROEL- Alpha-1 Globulin 0.2 g/dL (0.0-0.4); PROEL- Alpha-2 Globulin 0.8 g/dL (0.4-1.0); PROEL- Beta Globulin 1.1 g/dL (0.7-1.3); PROEL- Gamma Globulin 1.0 g/dL (0.4-1.8); PROEL- Globulin, Total 3.1 g/dL (2.2-3.9); PROEL- TOTAL PROTEIN 6.6 g/dL (6.0-8.5); PROEL-M-Spike Not Observed g/dL (Not Observed)
== END | disposition home or self-care (01) ==
LOC: MTLAB 08:02
PROVIDERS: PCP Internal Medicine
DX: M06.09 Rheumatoid arthritis without rheumatoid factor, multiple sites (principal); Z79.899 Other long term (current) drug therapy
CPT/HCPCS: 36415; 80076; 82565; 84165; 85025; 85652; 86140; 86160

== ENCOUNTER → 2025-05-21 | Outpatient (CLI) | payer MEDICAID, SELFPAY ==
[2025-05-21 18:03] LABS: Hematocrit 34.3 % (37-47); Hemoglobin 11.1 g/dL (12.0-15.0); Immature Granulocytes Count 0.020 X10^3/uL (0.0-0.0); Mean Corp Hgb Conc 32.4 g/dL (32-36); Mean Corpuscular Volume 96.3 fL (81-99); Mean Platelet Vol. 9.6 fl (6.2-12.0); NRBC Flagged by Analyzer 0 % (0-5); Platelet Count 370 K/mm3 (150-450); RBC Distribution Width CV 13.6 % (11.6-14.6); RBC Distribution Width SD 48.3 fl (35.1-43.9); Red Blood Count 3.56 M/mm3 (4.2-5.4); White Blood Count 6.4 K/mm3 (4.4-11.0)
[2025-05-21 18:48] LABS: Free T3 3.9 pg/mL (2.18-3.98); Vitamin B12 340 pg/mL (180-914)
[2025-05-21 19:17] LABS: FOLATES,SERUM (FOLIC ACID) 24.60 ng/mL (4.60-34.80)
== END | disposition home or self-care (01) ==
LOC: MFPLAB 15:37
PROVIDERS: PCP Internal Medicine; Visit Provider Nurse Practitioner Family
DX: E03.9 Hypothyroidism, unspecified (principal); D64.9 Anemia, unspecified
CPT/HCPCS: 82607; 82746; 84439; 84443; 84481; 85025